=== PATIENT | female | born 1950 | race Caucasian/White ===

== ENCOUNTER 2018-06-14 22:08 | Inpatient (IN) | payer MEDICARE, SELFPAY ==
[2018-06-14 22:13] VITALS: BP 147/89; PULSE 78; RESP 16; TEMP 36.1; O2SAT 96
--- NOTE | 2018-06-14 22:13 | NURSING ---
Pt arrived via cot from [facility] at 2200.
[2018-06-14 22:18] VITALS: BMI 31.7
[2018-06-14 22:21] VITALS: BMI 31.7
[2018-06-14 22:32] VITALS: PULSE 74; O2SAT 98
[2018-06-14 22:36] LABS: Bedside Glucose 160 mg/dL (70-110)
[2018-06-14] MEDS: Atorvastatin Calcium 40 MG Tablet PO (23:39)
[2018-06-14] MEDS: Ciprofloxacin 500 MG Tablet PO (23:39)
[2018-06-14 23:40] VITALS: BP 147/89; PULSE 74
[2018-06-14] MEDS: Metoprolol Tartrate 25 MG Tablet PO (23:40)
--- NOTE | 2018-06-15 00:32 | NURSING ---
Dr Green aware Dr Yvonne Brandt requesting Macrobid be initiated after Cipro complete d/t UTI hx. Dr Green aware N.N.O.
--- NOTE | 2018-06-15 01:46 | PCM.HP.STD ---
Problem List (1) Chest pain Status: Acute (2) NSTEMI (non-ST elevated myocardial infarction) Status: Acute (3) Coronary artery disease Status: Chronic (4) Stroke Status: Chronic (5) UTI (urinary tract infection) Status: Acute (6) Anxiety Status: Chronic (7) Overactive bladder Status: Chronic (8) Diabetes Status: Chronic (9) Hyperlipidemia Status: Chronic (10) Hypertension Status: Chronic History of Present Illness Date of Admission: 06/14/18 Chief Complaint: Here for rehabilitation, strengthening, prior to discharge home alone. The patient is a 68 year old Female with below past medical history presented to emergency room with chest pain, right arm pain. She felt something was wrong. She also had jaw pain. Troponin elevated, cardiac cath showed severe multi vessel coronary artery disease. She under CABG x 3. Post-operative course complicated by acute blood loss anemia, encephalopathy, urinary tract infection, admitted to TCU with debility, here for rehabilitation, strengthening, prior to discharge home alone. Past Medical History Past Medical History (Chronic Problems): Chronic Problems Coronary artery disease (Chronic) Stroke (Chronic) Anxiety (Chronic) Overactive bladder (Chronic) Tobacco abuse (Chronic) Diabetes (Chronic) Hyperlipidemia (Chronic) Hypertension (Chronic) Allergies codeine Allergy (Verified 09/12/13 15:13) Swelling Penicillins Allergy (Verified 09/12/13 15:13) Swelling Sulfa (Sulfonamide Antibiotics) Allergy (Verified 09/12/13 15:13) Swelling diphenhydramine [From Benadryl] Adverse Reaction (Verified 06/14/18 22:25) Other metoclopramide [From Reglan] Adverse Reaction (Verified 06/14/18 22:25) Other Home Medications: Ambulatory Orders Medication Instructions Recorded Acetaminophen 1 - 2 tab PO Q6H PRN PRN 06/14/18 Ascorbic Acid 500 mg PO BID 06/14/18 Aspirin E.C. [Ecotrin] 81 mg PO DAILY@0800 06/14/18 Atorvastatin Calcium 40 mg PO QHS 06/14/18 Cholecalciferol (Vitamin D3) 3,000 unit PO DAILY@0800 06/14/18 [Vitamin D3] Ciprofloxacin HCl 500 mg PO Q12H 06/14/18 Clopidogrel Bisulfate [Clopidogrel] 75 mg PO DAILY 06/14/18 Docusate Sodium [Colace] 100 mg PO BID 06/14/18 Insulin Glargine [Lantus (BKC)] 12 units SC DAILY@2200 06/14/18 Insulin Glargine [Lantus (BKC)] 16 units SC DAILY@0600 06/14/18 Insulin Lispro [Humalog Kwikpen] 7 unit SQ DINNER 06/14/18 Insulin Lispro [Humalog Kwikpen] 7 unit SQ LUNCH 06/14/18 Insulin Lispro [Humalog Kwikpen] 9 unit SQ BREAKFAST 06/14/18 Lactobacillus Acidophilus 1 each PO DAILY 06/14/18 [Acidophilus] Metoprolol Tartrate 25 mg PO BID 06/14/18 Oxybutynin [Ditropan] 5 mg PO DAILY 06/14/18 Oxycodone HCl/Acetaminophen 1 - 2 tablet PO Q6H PRN PRN 06/14/18 [Percocet 5-325] Red Yeast Rice 600 mg PO DAILY@0800 06/14/18 busPIRone [Buspar] 7.5 mg PO DAILY 06/14/18 Surgical History: coronary bypass surgery - x 3., - - EGD Psychiatric History: 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 Lives: Alone Smoking Status: Former smoker Tobacco Use: Non-smoker Alcohol: None Drugs: None - *Family History Maternal History Items: No pertinent history Paternal History Items: No pertinent history Review of Systems Constitutional: Denies: Chills, Fever, Weight Change HEENT: Denies: Head Aches, Sinus Congestion, Sinus Drainage Cardiovascular: Denies: Chest Pain, Palpitations Respiratory: Denies: Cough, Shortness of breath at rest, Sputum production Gastrointestinal: Denies: Abdominal Pain, Nausea, Vomiting Genitourinary: Denies: Dysuria Musculoskeletal: Denies: Joint Pain, Joint Tenderness Skin: Denies: Rash, Wounds Neurological: Denies: Numbness, Tingling, Focal weakness Psychiatric: Denies: Anxiety, Depression, Homicidal Ideations, Suicidal Ideations Hematologic/ Lymphatic: Denies: Easy Bruising, Easy Bleeding VTE Information - Inpt Only VTE Present on Admission: No VTE Mechan Device Prophylaxis: Knee High LISA Hose VTE Pharm Prophylaxis ordered?: Yes Patient Problems: Active and Suspected Problems Chest pain (Acute) NSTEMI (non-ST elevated myocardial infarction) (Acute) UTI (urinary tract infection) (Acute) - Physical Exam General: Alert, Oriented x3, Cooperative HEENT: Atraumatic, PERRLA, EOMI, Normocephalic Neck: Supple, No JVD, Negative Carotid Bruits Lungs: Clear to auscultation, Normal air movement Cardiovascular: Regular rate, No murmurs Abdomen: Bowel Sounds Present, Soft, Non Tender Extremities: No edema, Capillary Refill Less than 3 Seconds Skin: No rashes, No breakdown, Incision - Sternal clean, dry, intact. Musculoskeletal: No Tenderness to Palpation of Joints or Extremities Neurological: Cranial nerves II-XII grossly intact Psych/Mental Status: Normal Affect, Appropriate Vital Signs Temp Pulse Resp BP Pulse Ox 97.0 F L 74 16 147/89 H 98 06/14/18 22:13 06/14/18 23:40 06/14/18 22:13 06/14/18 23:40 06/14/18 22:32 Oxygen Delivery Method Room Air Weight: 71.214 kg Body Mass Index (BMI) 31.7 POC Glucose 06/14/18 22:33 POC Glucose 160 H Assessment/Plan All Active Problems Chest pain (Acute) NSTEMI (non-ST elevated myocardial infarction) (Acute) UTI (urinary tract infection) (Acute) Pancreatitis (Acute) 68 year old female with below past medical history hospitalized for NSTEMI, underwent CABG x 3, complicated by acute blood loss anemia, encephalopathy, urinary tract infection, admitted to TCU with debility, here for rehabilitation, strengthening, prior to discharge home alone. Debility - PT/OT. Pain - Tylenol 1000MG Q6H PRN mild pain, Oxycodone 5MG Q6H PRN moderate pain. Bowel - Miralax 17GM daily, Senna/colace 1 tablet BID, Dulcolax 10MG po daily PRN. Pneumonia vaccination - Administer Prevnar 13 and/or Pneumovax 23 as necessary. DVT prophylaxis - Lovenox 40MG daily. Vitamin C deficiency - Vitamin C 500MG BID. Coronary artery disease s/p CABG x 3 - Metoprolol 25MG BID, Plavix 75MG daily, Aspirin 81MG daily. Hyperlipidemia - Atorvastatin 40MG QHS. Anxiety - Buspar 7.5MG daily. Vitamin D deficiency - D3 3000IU daily. UTI - Cipro 500MG BID thru 06/21/2018. Diabetes Mellitus II - Lantus 16 units AM, 12 units PM, Humalog 9 units breakfast, 7 units lunch, 7 units supper. GI prophylaxis - Lactobacillus 1 tablet bid. Skin irritation - Calmoseptine BID bilateral buttocks, Eucerin BID bilateral feet, heels, legs. Tinea Corporis - Nystatin powder BID groin, under breasts. Overactive bladder - Oxybutynin 5MG daily.
--- NOTE | 2018-06-15 01:51 | HP.PCM_ITS ---
Problem List (1) Chest pain Status: Acute (2) NSTEMI (non-ST elevated myocardial infarction) Status: Acute (3) Coronary artery disease Status: Chronic (4) Stroke Status: Chronic (5) UTI (urinary tract infection) Status: Acute (6) Anxiety Status: Chronic (7) Overactive bladder Status: Chronic (8) Diabetes Status: Chronic (9) Hyperlipidemia Status: Chronic (10) Hypertension Status: Chronic History of Present Illness Date of Admission: 06/14/18 Chief Complaint: Here for rehabilitation, strengthening, prior to discharge home alone. The patient is a 68 year old Female with below past medical history presented to emergency room with chest pain, right arm pain. She felt something was wrong. She also had jaw pain. Troponin elevated, cardiac cath showed severe multi vessel coronary artery disease. She under CABG x 3. Post-operative course complicated by acute blood loss anemia, encephalopathy, urinary tract infection, admitted to TCU with debility, here for rehabilitation, strengthening, prior to discharge home alone. Past Medical History Past Medical History (Chronic Problems): Chronic Problems Coronary artery disease (Chronic) Stroke (Chronic) Anxiety (Chronic) Overactive bladder (Chronic) Tobacco abuse (Chronic) Diabetes (Chronic) Hyperlipidemia (Chronic) Hypertension (Chronic) Allergies codeine Allergy (Verified 09/12/13 15:13) Swelling Penicillins Allergy (Verified 09/12/13 15:13) Swelling Sulfa (Sulfonamide Antibiotics) Allergy (Verified 09/12/13 15:13) Swelling diphenhydramine [From Benadryl] Adverse Reaction (Verified 06/14/18 22:25) Other metoclopramide [From Reglan] Adverse Reaction (Verified 06/14/18 22:25) Other Home Medications: Ambulatory Orders Medication Instructions Recorded Acetaminophen 1 - 2 tab PO Q6H PRN PRN 06/14/18 Ascorbic Acid 500 mg PO BID 06/14/18 Aspirin E.C. [Ecotrin] 81 mg PO DAILY@0800 06/14/18 Atorvastatin Calcium 40 mg PO QHS 06/14/18 Cholecalciferol (Vitamin D3) 3,000 unit PO DAILY@0800 06/14/18 [Vitamin D3] Ciprofloxacin HCl 500 mg PO Q12H 06/14/18 Clopidogrel Bisulfate [Clopidogrel] 75 mg PO DAILY 06/14/18 Docusate Sodium [Colace] 100 mg PO BID 06/14/18 Insulin Glargine [Lantus (BKC)] 12 units SC DAILY@2200 06/14/18 Insulin Glargine [Lantus (BKC)] 16 units SC DAILY@0600 06/14/18 Insulin Lispro [Humalog Kwikpen] 7 unit SQ DINNER 06/14/18 Insulin Lispro [Humalog Kwikpen] 7 unit SQ LUNCH 06/14/18 Insulin Lispro [Humalog Kwikpen] 9 unit SQ BREAKFAST 06/14/18 Lactobacillus Acidophilus 1 each PO DAILY 06/14/18 [Acidophilus] Metoprolol Tartrate 25 mg PO BID 06/14/18 Oxybutynin [Ditropan] 5 mg PO DAILY 06/14/18 Oxycodone HCl/Acetaminophen 1 - 2 tablet PO Q6H PRN PRN 06/14/18 [Percocet 5-325] Red Yeast Rice 600 mg PO DAILY@0800 06/14/18 busPIRone [Buspar] 7.5 mg PO DAILY 06/14/18 Surgical History: coronary bypass surgery - x 3., - - EGD Psychiatric History: Anxiety 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 Lives: Alone Smoking Status: Former smoker Tobacco Use: Non-smoker Alcohol: None Drugs: None - *Family History Maternal History Items: No pertinent history Paternal History Items: No pertinent history Review of Systems Constitutional: Denies: Chills, Fever, Weight Change HEENT: Denies: Head Aches, Sinus Congestion, Sinus Drainage Cardiovascular: Denies: Chest Pain, Palpitations Respiratory: Denies: Cough, Shortness of breath at rest, Sputum production Gastrointestinal: Denies: Abdominal Pain, Nausea, Vomiting Genitourinary: Denies: Dysuria Musculoskeletal: Denies: Joint Pain, Joint Tenderness Skin: Denies: Rash, Wounds Neurological: Denies: Numbness, Tingling, Focal weakness Psychiatric: Denies: Anxiety, Depression, Homicidal Ideations, Suicidal Ideations Hematologic/ Lymphatic: Denies: Easy Bruising, Easy Bleeding VTE Information - Inpt Only VTE Present on Admission: No VTE Mechan Device Prophylaxis: Knee High LISA Hose VTE Pharm Prophylaxis ordered?: Yes Patient Problems: Active and Suspected Problems Chest pain (Acute) NSTEMI (non-ST elevated myocardial infarction) (Acute) UTI (urinary tract infection) (Acute) - Physical Exam General: Alert, Oriented x3, Cooperative HEENT: Atraumatic, PERRLA, EOMI, Normocephalic Neck: Supple, No JVD, Negative Carotid Bruits Lungs: Clear to auscultation, Normal air movement Cardiovascular: Regular rate, No murmurs Abdomen: Bowel Sounds Present, Soft, Non Tender Extremities: No edema, Capillary Refill Less than 3 Seconds Skin: No rashes, No breakdown, Incision - Sternal clean, dry, intact. Musculoskeletal: No Tenderness to Palpation of Joints or Extremities Neurological: Cranial nerves II-XII grossly intact Psych/Mental Status: Normal Affect, Appropriate Vital Signs Temp Pulse Resp BP Pulse Ox 97.0 F L 74 16 147/89 H 98 06/14/18 22:13 06/14/18 23:40 06/14/18 22:13 06/14/18 23:40 06/14/18 22:32 Oxygen Delivery Method Room Air Weight: 71.214 kg Body Mass Index (BMI) 31.7 POC Glucose 06/14/18 22:33 POC Glucose 160 H Assessment/Plan All Active Problems Chest pain (Acute) NSTEMI (non-ST elevated myocardial infarction) (Acute) UTI (urinary tract infection) (Acute) Pancreatitis (Acute) 68 year old female with below past medical history hospitalized for NSTEMI, underwent CABG x 3, complicated by acute blood loss anemia, encephalopathy, urinary tract infection, admitted to TCU with debility, here for rehabilitation, strengthening, prior to discharge home alone. * Debility - PT/OT. * Pain - Tylenol 1000MG Q6H PRN mild pain, Oxycodone 5MG Q6H PRN moderate pain. * Bowel - Miralax 17GM daily, Senna/colace 1 tablet BID, Dulcolax 10MG po daily PRN. * Pneumonia vaccination - Administer Prevnar 13 and/or Pneumovax 23 as necessary. * DVT prophylaxis - Lovenox 40MG daily. * Vitamin C deficiency - Vitamin C 500MG BID. * Coronary artery disease s/p CABG x 3 - Metoprolol 25MG BID, Plavix 75MG daily, Aspirin 81MG daily. * Hyperlipidemia - Atorvastatin 40MG QHS. * Anxiety - Buspar 7.5MG daily. * Vitamin D deficiency - D3 3000IU daily. * UTI - Cipro 500MG BID thru 06/21/2018. * Diabetes Mellitus II - Lantus 16 units AM, 12 units PM, Humalog 9 units breakfast, 7 units lunch, 7 units supper. * GI prophylaxis - Lactobacillus 1 tablet bid. * Skin irritation - Calmoseptine BID bilateral buttocks, Eucerin BID bilateral feet, heels, legs. * Tinea Corporis - Nystatin powder BID groin, under breasts. * Overactive bladder - Oxybutynin 5MG daily.
--- NOTE | 2018-06-15 03:44 | EKG12_ITS ---
Test Reason : CP Blood Pressure : / mmHG Vent. Rate : 068 BPM Atrial Rate : 068 BPM P-R Int : 132 ms QRS Dur : 098 ms QT Int : 432 ms P-R-T Axes : 054 059 024 degrees QTc Int : 459 ms Normal sinus rhythm Nonspecific ST and T wave abnormality Abnormal ECG When compared with ECG of 12-SEP-2013 15:20, T wave inversion now evident in Inferior leads Confirmed by BELINDA MCMANUS, NATALIA ([id number]), editor in chief newspaper MARKUS VILLAFANA ([id number]) on 06/19/2018 5:28:58 PM Referred By: Confirmed By:NATALIA TREVINO MD
[2018-06-15 03:46] LABS: Bedside Glucose 137 mg/dL (70-110)
[2018-06-15] MEDS: Acetaminophen 500 MG Tablet 1000 MG PO (03:47)
[2018-06-15 03:50] VITALS: BP 128/61; PULSE 71; RESP 16; O2SAT 95
--- NOTE | 2018-06-15 04:35 | NURSING ---
Addendum entered by Catherine Keating 06/15/18 04:41: 0415 upon reevaluation pt eyes closed, resting quietly in bed. Resp 12/min, easy and unlabored. Original Note: 0345 Pt c/o pain to left chest and lower sternum pain after transfer to restroom. Pt reports pain as pressure rating 8/10. Pt assisted back to bed. Vitals WNLs. HR reg. No visible distress noted. ECG obtained. Pt informed nurse lowest pain ever gets to is 6.5/10 and she always has pain on the left or right side of chest. While lying in be pain decreased to 7. Tylenol provided. Dr Green notified, N.N.O.
[2018-06-15 05:46] LABS: Absolute Lymphocyte Count 1.35 X10^3/ul (0.83-4.51); Absolute Neutrophil Count 4.7 X10^3/uL (2.0-7.7); Basophil# 0.07 X10^3/uL; Eosinophil# 0.33 X10^3/uL; Eosinophils% 4.7 % (0-5); Hematocrit 33.3 % (37-47); Hemoglobin 10.1 g/dl (12.0-15.0); Lymphocyte # 1.35 X10^3/ul (4.0); Lymphocyte % 19.1 % (19-41); Mean Corp Hgb Conc 30.3 g/gl (32-36); Mean Corpuscular Hgb 29.1 pg (27.0-32.0); Mean Platelet Vol. 10.8 fl (6.2-12.0); Monocyte% 8.5 % (0-10); Neutrophil # 4.72 X10^3/uL (2.7-7.7); Neutrophil % 66.6 % (47-70); Platelet Count 596 K/mm3 (150-450); RBC Distribution Width CV 15.7 % (11.6-14.6); RBC Distribution Width SD 51.3 fl (35.1-43.9); Red Blood Count 3.47 M/mm3 (4.2-5.4); White Blood Count 7.1 K/mm3 (4.4-11.0)
[2018-06-15 05:48] LABS: POSITIVE COUNT NO; POSITIVE DIFFERENTIAL NO; POSITIVE MORPHOLOGY NO
[2018-06-15 06:00] LABS: Anion Gap 7 (5-15); BUN 23 mg/dL (7-18); BUN/Creat Ratio 22.8 RATIO (10-20); Calcium,Total 8.5 mg/dL (8.5-10.1); Chloride 111 mmol/L (98-107); Creatinine, Serum 1.01 mg/dL (0.55-1.02); EST Glomerular Filtration Rate 58 mL/min (>60); Est Glom Filt Rate - Afr Amer 70 mL/min (>60); Glucose 135 mg/dL (74-106); Potassium 4.1 mmol/L (3.5-5.1); Sodium Level 145 mmol/L (136-145)
[2018-06-15] MEDS: busPIRone 15 MG TABLET 7.5 MG PO (06:29)
[2018-06-15] MEDS: Ascorbic Acid 500 MG Tablet PO ×2 (06:29→17:37)
[2018-06-15] MEDS: Ciprofloxacin 500 MG Tablet PO ×2 (06:29→17:31)
[2018-06-15] MEDS: Oxybutynin 5 MG Tablet PO (06:29)
[2018-06-15] MEDS: Senna/Docusate Sodium 1 Tablet PO ×2 (06:29→17:32)
[2018-06-15] MEDS: Clopidogrel Bisulfate 75 MG Tablet PO (06:29)
[2018-06-15] MEDS: Polyethylene Glycol 3350 17 GM PACKET PO (06:30)
[2018-06-15 06:31] LABS: Bedside Glucose 154 mg/dL (70-110)
[2018-06-15] MEDS: Enoxaparin 40 MG/0.4 ML Syringe SC (06:31)
[2018-06-15 06:32] VITALS: BP 121/63; PULSE 68
[2018-06-15] MEDS: Metoprolol Tartrate 25 MG Tablet PO ×2 (06:32→17:32)
[2018-06-15] MEDS: Nystatin Powder 15gm Bottle 1 APPLIC TOPICAL ×2 (06:44→22:44)
[2018-06-15] MEDS: Menthol/Lanolin/Calamine/Znox 113 GM Tube 1 APPLIC TOPICAL ×2 (06:44→22:44)
[2018-06-15] MEDS: Aspirin E.C. 81 MG Tablet PO (08:57)
[2018-06-15] MEDS: Insulin Lispro 100 UNIT/ML INSULN.PEN 9 UNIT SC (09:01)
[2018-06-15] MEDS: oxyCODONE 5 MG Tablet PO (09:04)
[2018-06-15] MEDS: Bisacodyl 5 MG Tablet 10 MG PO (11:16)
[2018-06-15] MEDS: Tuberculin,Purif.prot.deriv. 50 TU/ML Vial 5 ML ID (11:17)
[2018-06-15 11:25] LABS: Bedside Glucose 139 mg/dL (70-110)
[2018-06-15] MEDS: Insulin Lispro 100 UNIT/ML INSULN.PEN 7 UNIT SC ×2 (14:03→17:33)
--- NOTE | 2018-06-15 15:21 | CHAPLAIN ---
Type of Pastoral Visit _x__ Initial Visit ___ Follow-up Visit ___ On-call Visit ___ General Patient Visit ___ Spiritual Assessment ___ Family Conference ___ Bereavement ___ Rapid Response ___ Code Blue ___ Other (describe below) Pastoral Care Referral From _x__ Patient ___ Family ___ Nurse ___ Physician ___ Cash Sales Audit Clerk ___ Corporate Communications Intern ___ Other (describe below) Sacrament/Intervention _x__ Active listening ___ Anointing ___ Buddhist ___ Bereavement ___ Communion ___ [place] exploration ___ ___ Life review _x__ Prayer ___ Reconciliation ___ Sacrament of Sick _x__ Supportive presence ___ Wedding ___ Other (describe below) Pastoral Comments upon introduction the patient immediately requested prayer for her daughter out of state that is having surgery; pt reveals that she has some difficult relational issues with family members; pt is concerned about having care when discharged from hospital; pt does not have a sikhism connection
[2018-06-15 15:25] VITALS: BP 118/60; PULSE 66; RESP 18; TEMP 36.3; O2SAT 95
[2018-06-15 17:11] LABS: Bedside Glucose 148 mg/dL (70-110)
[2018-06-15 17:32] VITALS: BP 118/60; PULSE 66
[2018-06-15 21:05] LABS: Bedside Glucose 78 mg/dL (70-110)
[2018-06-15 21:45] LABS: Bedside Glucose 136 mg/dL (70-110)
--- NOTE | 2018-06-15 22:16 | RAD_ITS ---
HISTORY: Nausea/Vomiting EXAM:Abdominal series 2 views COMPARISON: CT abdomen and pelvis 09/12/2013 FINDINGS: 2 supine views the abdomen. No bowel obstruction. Small and large intestinal loops are nondilated. No soft tissue mass or organomegaly. Multiple pelvic phleboliths. Atherosclerotic calcifications. Previous median sternotomy. RAD/Abdomen Single View (Portable) IMPRESSION: 1. Nonobstructive bowel gas pattern. No acute abdominal disease seen. 2. If symptoms warrant, further correlation with CT may be of benefit. at 0713 Reported and signed by: Abdoulaye Abreu MD Electronically Signed: Abdoulaye Abreu, at 7:12 EST Tel , Service support ,
--- NOTE | 2018-06-15 22:21 | NURSING ---
Dr. Green notified of low blood sugar this evening. New orders given to decrease insulins. Dr. Green notified of patient complaining of nausea. Orders given for KUB.
[2018-06-15] MEDS: Atorvastatin Calcium 40 MG Tablet PO (22:41)
[2018-06-16 05:43] VITALS: BP 119/69; PULSE 85
[2018-06-16] MEDS: Metoprolol Tartrate 25 MG Tablet PO ×2 (05:43→17:52)
[2018-06-16] MEDS: Oxybutynin 5 MG Tablet PO (05:43)
[2018-06-16] MEDS: Clopidogrel Bisulfate 75 MG Tablet PO (05:43)
[2018-06-16] MEDS: Senna/Docusate Sodium 1 Tablet PO ×2 (05:43→17:52)
[2018-06-16] MEDS: Ciprofloxacin 500 MG Tablet PO ×2 (05:43→17:52)
[2018-06-16] MEDS: Ascorbic Acid 500 MG Tablet PO ×2 (05:43→17:53)
[2018-06-16] MEDS: Enoxaparin 40 MG/0.4 ML Syringe SC (05:44)
[2018-06-16] MEDS: busPIRone 15 MG TABLET 7.5 MG PO (05:44)
[2018-06-16] MEDS: Polyethylene Glycol 3350 17 GM PACKET PO (05:44)
[2018-06-16] MEDS: Menthol/Lanolin/Calamine/Znox 113 GM Tube 1 APPLIC TOPICAL ×2 (05:51→20:32)
[2018-06-16] MEDS: Nystatin Powder 15gm Bottle 1 APPLIC TOPICAL ×2 (05:51→20:32)
[2018-06-16 06:56] LABS: Bedside Glucose 169 mg/dL (70-110)
--- NOTE | 2018-06-16 08:12 | NURSING ---
Pt has c/o nausea this morning. Requesting medications be changed to 0800, so they can be taken with breakfast. Given margy angel and crackers. Will continue to monitor.
[2018-06-16 11:35] LABS: Bedside Glucose 152 mg/dL (70-110)
[2018-06-16] MEDS: Aspirin E.C. 81 MG Tablet PO (12:24)
[2018-06-16] MEDS: Insulin Lispro 100 UNIT/ML INSULN.PEN SC ×2 (12:24→17:51)
[2018-06-16] MEDS: oxyCODONE 5 MG Tablet PO ×2 (12:25→19:40)
[2018-06-16] MEDS: Bisacodyl 5 MG Tablet 10 MG PO (13:42)
[2018-06-16 13:45] VITALS: O2SAT 94
--- NOTE | 2018-06-16 15:40 | NURSING ---
Addendum entered by Jessica Red 06/16/18 17:56: ZOFRAN EFFECTIVE IN RELIEVING NAUSEA. R' SITTING UP EATING DINNER. ABLE TO TAKE PO MEDS THIS EVENING. Original Note: Pt has c/o mild nausea, Dr. Green updated. NO for zofran 4mg PO [id number] PRN.
[2018-06-16 15:49] VITALS: BP 115/61; PULSE 67; RESP 16; TEMP 36.6; O2SAT 97
[2018-06-16] MEDS: Ondansetron ODT 4 MG Tablet PO (15:56)
[2018-06-16 17:00] LABS: Bedside Glucose 135 mg/dL (70-110)
[2018-06-16 17:52] VITALS: PULSE 67
[2018-06-16] MEDS: Atorvastatin Calcium 40 MG Tablet PO (20:32)
[2018-06-16 21:25] LABS: Bedside Glucose 153 mg/dL (70-110)
[2018-06-17] MEDS: Ondansetron ODT 4 MG Tablet PO ×2 (06:18→16:48)
[2018-06-17] MEDS: Menthol/Lanolin/Calamine/Znox 113 GM Tube 1 APPLIC TOPICAL ×2 (06:19→21:11)
[2018-06-17] MEDS: Nystatin Powder 15gm Bottle 1 APPLIC TOPICAL ×2 (06:20→21:11)
--- NOTE | 2018-06-17 06:29 | EKG12_ITS ---
Test Reason : CHEST PAIN Blood Pressure : / mmHG Vent. Rate : 068 BPM Atrial Rate : 068 BPM P-R Int : 118 ms QRS Dur : 082 ms QT Int : 426 ms P-R-T Axes : 064 067 026 degrees QTc Int : 452 ms Normal sinus rhythm Normal ECG When compared with ECG of 15-JUN-2018 03:48, MANUAL COMPARISON REQUIRED, DATA IS UNCONFIRMED Confirmed by BELINDA MCMANUS, NATALIA ([id number]), film editor MARKUS VILLAFANA ([id number]) on 06/19/2018 5:42:07 PM Referred By: RUDY Confirmed By:NATALIA TREVINO MD
--- NOTE | 2018-06-17 06:32 | NURSING ---
Addendum entered by Vidya Gonzalez 06/17/18 06:52: EKG showed NSR. Pt stating I no longer have that pain in my chest. Will continue to monitor. Original Note: This RN entered pt's room this morning. Pt diaphoretic, VS taken- BP122/77, HR 77, RR- 18, pulse ox- 94%. Pt stating she has CP that she has not felt before. Pt reports chest pain 9/10, with pain radiating through neck and throat. Zofran also given for nausea. EKG ordered at this time.
[2018-06-17 06:36] LABS: Bedside Glucose 131 mg/dL (70-110)
[2018-06-17] MEDS: Enoxaparin 40 MG/0.4 ML Syringe SC (07:20)
[2018-06-17] MEDS: Insulin Lispro 100 UNIT/ML INSULN.PEN SC ×2 (09:12→17:47)
[2018-06-17 10:05] VITALS: PULSE 76
[2018-06-17] MEDS: Metoprolol Tartrate 25 MG Tablet PO (10:05)
[2018-06-17] MEDS: Oxybutynin 5 MG Tablet PO (10:06)
[2018-06-17] MEDS: busPIRone 15 MG TABLET 7.5 MG PO (10:06)
[2018-06-17] MEDS: Ciprofloxacin 500 MG Tablet PO ×2 (10:06→17:47)
[2018-06-17] MEDS: Senna/Docusate Sodium 1 Tablet PO ×2 (10:07→17:48)
[2018-06-17] MEDS: Polyethylene Glycol 3350 17 GM PACKET PO (10:07)
[2018-06-17] MEDS: Aspirin E.C. 81 MG Tablet PO (10:07)
[2018-06-17] MEDS: Ascorbic Acid 500 MG Tablet PO ×2 (10:08→17:47)
[2018-06-17] MEDS: Clopidogrel Bisulfate 75 MG Tablet PO (10:08)
[2018-06-17] MEDS: oxyCODONE 5 MG Tablet PO ×2 (10:12→16:48)
[2018-06-17 11:40] LABS: Bedside Glucose 188 mg/dL (70-110)
[2018-06-17 15:32] VITALS: BP 120/66; PULSE 54; RESP 16; TEMP 36.5; O2SAT 96
[2018-06-17 16:45] LABS: Bedside Glucose 135 mg/dL (70-110)
[2018-06-17 17:53] VITALS: PULSE 57
[2018-06-17 21:05] LABS: Bedside Glucose 148 mg/dL (70-110)
[2018-06-17] MEDS: Atorvastatin Calcium 40 MG Tablet PO (21:11)
[2018-06-17 21:15] VITALS: PULSE 65; O2SAT 93
[2018-06-17] MEDS: Acetaminophen 500 MG Tablet 1000 MG PO (21:20)
[2018-06-18] MEDS: Menthol/Lanolin/Calamine/Znox 113 GM Tube 1 APPLIC TOPICAL ×2 (06:23→20:26)
[2018-06-18] MEDS: Nystatin Powder 15gm Bottle 1 APPLIC TOPICAL ×2 (06:24→20:26)
[2018-06-18] MEDS: Enoxaparin 40 MG/0.4 ML Syringe SC (06:24)
[2018-06-18 06:41] LABS: Bedside Glucose 145 mg/dL (70-110)
[2018-06-18] MEDS: Ondansetron ODT 4 MG Tablet PO ×2 (06:56→17:49)
[2018-06-18 08:23] VITALS: PULSE 75
[2018-06-18] MEDS: Oxybutynin 5 MG Tablet PO (08:23)
[2018-06-18] MEDS: Ciprofloxacin 500 MG Tablet PO ×2 (08:23→17:45)
[2018-06-18] MEDS: Aspirin E.C. 81 MG Tablet PO (08:23)
[2018-06-18] MEDS: busPIRone 15 MG TABLET 7.5 MG PO (08:23)
[2018-06-18] MEDS: Metoprolol Tartrate 25 MG Tablet PO ×2 (08:23→17:42)
[2018-06-18] MEDS: Senna/Docusate Sodium 1 Tablet PO ×2 (08:24→17:45)
[2018-06-18] MEDS: Polyethylene Glycol 3350 17 GM PACKET PO (08:24)
[2018-06-18] MEDS: Insulin Lispro 100 UNIT/ML INSULN.PEN SC ×3 (08:24→17:42)
[2018-06-18] MEDS: Ascorbic Acid 500 MG Tablet PO ×2 (08:24→17:45)
[2018-06-18] MEDS: Clopidogrel Bisulfate 75 MG Tablet PO (08:28)
[2018-06-18] MEDS: oxyCODONE 5 MG Tablet PO ×2 (10:41→17:49)
[2018-06-18 11:11] LABS: Bedside Glucose 181 mg/dL (70-110)
--- NOTE | 2018-06-18 11:29 | NURSING ---
pt refusing ensure and requesting aerosals per home regimen for COPD. Dr Green notified, new orders obtained.
--- NOTE | 2018-06-18 12:24 | CASEMGMT ---
Insurance Clinical information sent. Pending continued stay approval. Auth#[id number] RICKY Mccabe, TRACK AND FIELD COACH
[2018-06-18 13:06] VITALS: PULSE 79; RESP 19
[2018-06-18] MEDS: Ipratropium/Albuterol Sulfate 3 ML AMPUL.NEB INHALATION (13:06)
--- NOTE | 2018-06-18 13:58 | PCM.PN.RX ---
<Boogie Barcenas D - Last Filed: 06/18/18 13:58> Progress Note - Pharmacy Subjective: TCU Admission Objective: Allergies codeine Allergy (Verified 09/12/13 15:13) Swelling Penicillins Allergy (Verified 09/12/13 15:13) Swelling Sulfa (Sulfonamide Antibiotics) Allergy (Verified 09/12/13 15:13) Swelling diphenhydramine [From Benadryl] Adverse Reaction (Verified 06/14/18 22:25) Other metoclopramide [From Reglan] Adverse Reaction (Verified 06/14/18 22:25) Other Current Medications Generic Name Dose Route Start Last Admin Trade Name Freq PRN Reason Stop Dose Admin Acetaminophen 1,000 mg 06/15/18 01:59 06/17/18 21:20 Tylenol PO 1,000 mg Q6H PRN PRN Administration MILD PAIN (1-08/12) Albuterol/Ipratropium 3 ml 06/18/18 11:28 06/18/18 13:06 Duoneb INHALATION 3 ml Q6HWA.RT PRN Administration sob/wheezing Ascorbic Acid 500 mg 06/17/18 08:00 06/18/18 08:24 Vitamin C PO 500 mg BID@0800,1800 [facility] Administration Aspirin 81 mg 06/15/18 08:00 06/18/18 08:23 Ecotrin PO 81 mg DAILY@0800 ANA LAURA Administration Atorvastatin Calcium 40 mg 06/14/18 23:30 06/17/18 21:11 Lipitor PO 40 mg QHS ANA LAURA Administration Bisacodyl 10 mg 06/15/18 01:59 06/16/18 13:42 Dulcolax PO 10 mg DAILY PRN Administration Constipation Buspirone HCl 7.5 mg 06/17/18 08:00 06/18/18 08:23 Buspar PO 7.5 mg DAILY@0800 [facility] Administration Calamine/Phenol 1 applic 06/15/18 06:00 06/18/18 06:23 Calmoseptine Ointment TOPICAL 1 applicatio 0600,2200 [facility] Administration Protocol Cholecalciferol 3,000 unit 06/15/18 08:00 06/18/18 08:24 Vitamin D PO 3,000 unit DAILY@0800 [facility] Administration Ciprofloxacin HCl 500 mg 06/17/18 08:00 01/14/19 08:23 Cipro PO 06/21/18 23:59 500 mg BID@0800,1800 [facility] Administration Clopidogrel Bisulfate 75 mg 06/17/18 08:00 06/18/18 08:28 Plavix PO 75 mg DAILY@0800 [facility] Administration Enoxaparin Sodium 40 mg 06/15/18 06:00 06/18/18 06:24 Lovenox SC 40 mg DAILY@0600 [facility] Administration Insulin Glargine 5 units 06/16/18 06:00 06/18/18 06:23 Lantus ([facility]) SC 5 units BID [facility] Administration Insulin Human Lispro 3 unit 06/16/18 07:45 06/18/18 11:18 Humalog Kwikpen ([facility]) SC 3 u TIDCM [facility] Administration Lactobacillus Acidophilus 1 tablet 06/17/18 08:00 06/18/18 08:23 Acidophilus PO 1 tablet DAILY@0800 [facility] Administration Metoprolol Tartrate 25 mg 06/17/18 08:00 06/18/18 08:23 Lopressor (Beta Rozina) PO 25 mg BID@0800,1800 [facility] Administration Multi-Ingredient Cream 1 applic 06/15/18 06:00 06/18/18 06:23 Eucerin TOPICAL 1 applicatio 0600,2200 [facility] Administration Protocol Nystatin 1 applic 06/15/18 06:00 06/18/18 06:24 Mycostatin Powder TOPICAL 1 applicatio 0600,2200 [facility] Administration Protocol Ondansetron HCl 4 mg 06/16/18 15:39 06/18/18 06:56 Zofran Odt PO 4 mg Q6H PRN PRN Administration NAUSEA Oxybutynin Chloride 5 mg 06/17/18 08:00 06/18/18 08:23 Ditropan PO 5 mg DAILY@0800 [facility] Administration Oxycodone HCl 5 mg 06/15/18 01:59 06/18/18 10:41 Oxyir PO 5 mg Q6H PRN PRN Administration MODERATE PAIN (4-5/10) Polyethylene Glycol 17 gm 06/17/18 08:00 06/18/18 08:24 Miralax PO 17 gm DAILY@0800 [facility] Administration Senna/Docusate Sodium 1 tablet 06/17/18 08:00 06/18/18 08:24 Senokot-S, Pilar-Colace PO 1 tablet BID@0800,1800 ANA LAURA Administration Tuberculin PPD 5 tu 06/22/18 10:00 Tubersol, Aplisol, Ppd ID 06/22/18 10:01 X1 ONE Problem List Chest pain (Acute) NSTEMI (non-ST elevated myocardial infarction) (Acute) Coronary artery disease (Chronic) Stroke (Chronic) UTI (urinary tract infection) (Acute) Anxiety (Chronic) Overactive bladder (Chronic) Vital Signs Temp Pulse Resp BP Pulse Ox 97.7 F L 79 19 H 120/66 93 06/17/18 15:32 06/18/18 13:06 06/18/18 13:06 06/17/18 15:32 06/17/18 21:15 Oxygen Flow Rate (L/min) 3 Oxygen Delivery Method Room Air Weight: 69.201 kg Body Mass Index (BMI) 31.7 Sodium 145 mmol/L (136-145) 06/15/18 05:10 Potassium 4.1 mmol/L (3.5-5.1) 06/15/18 05:10 Chloride 111 mmol/L (98-107) H 06/15/18 05:10 Carbon Dioxide 27.0 mmol/L (21.0-32.0) 06/15/18 05:10 Anion Gap 7 (5-15) 06/15/18 05:10 BUN 23 mg/dL (7-18) H 06/15/18 05:10 Creatinine 1.01 mg/dL (0.55-1.02) 06/15/18 05:10 Est GFR (MDRD) Af Amer 70 mL/min (>60) 06/15/18 05:10 Est GFR (MDRD) Non-Af 58 mL/min (>60) L 06/15/18 05:10 BUN/Creatinine Ratio 22.8 RATIO (10-20) H 06/15/18 05:10 Glucose 135 mg/dL (74-106) H 06/15/18 05:10 Assessment/Plan: 1) Pain APAP for mild pain, oxycodone for moderate pain. Continue to monitor prn medication use, daily pain scores. 2) CAD ASA, atorvastatin, clopidogrel, metoprolol. Continue to monitor lipids, BP/HR, for chest pain. 3) DM2 Insulin glargine twice daily, lispro with meals. Continue to monitor BGT, s/s hyper/hypoglycemia. 4) UTI Ciprofloxacin twice daily. Continue to monitor renal function, s/s infection. 5) GI Lactobacillus, prn ondansetron. Continue to monitor prn medication use, s/s GI distress. 6) Oxybutynin daily. Continue to monitor symptoms. 7) DVT PPx Enoxaparin daily. Continue to monitor for bleeding/clot. Psychotropic Medications: 8) Anxiety Buspirone daily. Continue to monitor s/s anxiety. Unnecessary Medications: None Bowel Regimen: 9) Senna/s, PEG, prn bisacodyl. Continue to monitor prn medication use, for constipation/diarrhea. Date of Note:: 06/18/18 - Provider Comments Provider responsibility: Provider responsible to enter orders to implement recommendations <Taras Green Chi - Last Filed: 06/18/18 18:07> Progress Note - Pharmacy Subjective: [] Objective: Allergies codeine Allergy (Verified 09/12/13 15:13) Swelling Penicillins Allergy (Verified 09/12/13 15:13) Swelling Sulfa (Sulfonamide Antibiotics) Allergy (Verified 09/12/13 15:13) Swelling diphenhydramine [From Benadryl] Adverse Reaction (Verified 06/14/18 22:25) Other metoclopramide [From Reglan] Adverse Reaction (Verified 06/14/18 22:25) Other Current Medications Generic Name Dose Route Start Last Admin Trade Name Freq PRN Reason Stop Dose Admin Acetaminophen 1,000 mg 06/15/18 01:59 06/17/18 21:20 Tylenol PO 1,000 mg Q6H PRN PRN Administration MILD PAIN (1-3/10) Albuterol/Ipratropium 3 ml 06/18/18 11:28 06/18/18 13:06 Duoneb INHALATION 3 ml Q6HWA.RT PRN Administration sob/wheezing Ascorbic Acid 500 mg 06/17/18 08:00 06/18/18 17:45 Vitamin C PO 500 mg BID@0800,1800 ANA LAURA Administration Aspirin 81 mg 06/15/18 08:00 06/18/18 08:23 Ecotrin PO 81 mg DAILY@0800 ANA LAURA Administration Atorvastatin Calcium 40 mg 06/14/18 23:30 06/17/18 21:11 Lipitor PO 40 mg QHS ANA LAURA Administration Bisacodyl 10 mg 06/15/18 01:59 06/16/18 13:42 Dulcolax PO 10 mg DAILY PRN Administration Constipation Buspirone HCl 7.5 mg 06/17/18 08:00 06/18/18 08:23 Buspar PO 7.5 mg DAILY@0800 [facility] Administration Calamine/Phenol 1 applic 06/15/18 06:00 06/18/18 06:23 Calmoseptine Ointment TOPICAL 1 applicatio 599,2199 [facility] Administration Protocol Cholecalciferol 3,000 unit 06/15/18 08:00 06/18/18 08:24 Vitamin D PO 3,000 unit DAILY@0800 [facility] Administration Ciprofloxacin HCl 500 mg 06/17/18 08:00 06/18/18 17:45 Cipro PO 06/21/18 23:59 500 mg BID@0800,1800 [facility] Administration Clopidogrel Bisulfate 75 mg 06/17/18 08:00 06/18/18 08:28 Plavix PO 75 mg DAILY@0800 [facility] Administration Enoxaparin Sodium 40 mg 06/15/18 06:00 06/18/18 06:24 Lovenox SC 40 mg DAILY@0600 [facility] Administration Insulin Glargine 5 units 06/16/18 06:00 06/18/18 17:43 Lantus ([facility]) SC 5 units BID [facility] Administration Insulin Human Lispro 3 unit 06/16/18 07:45 06/18/18 17:42 Humalog Kwikpen ([facility]) SC 3 u TIDCM [facility] Administration Lactobacillus Acidophilus 1 tablet 06/17/18 08:00 06/18/18 08:23 Acidophilus PO 1 tablet DAILY@0800 [facility] Administration Metoprolol Tartrate 25 mg 06/17/18 08:00 06/18/18 17:42 Lopressor (Beta Rozina) PO 25 mg BID@0800,1800 [facility] Administration Multi-Ingredient Cream 1 applic 06/15/18 06:00 06/18/18 06:23 Eucerin TOPICAL 1 applicatio 599,2199 [facility] Administration Protocol Nystatin 1 applic 06/15/18 06:00 06/18/18 06:24 Mycostatin Powder TOPICAL 1 applicatio 599,2199 [facility] Administration Protocol Ondansetron HCl 4 mg 06/16/18 15:39 06/18/18 17:49 Zofran Odt PO 4 mg Q6H PRN PRN Administration NAUSEA Oxybutynin Chloride 5 mg 06/17/18 08:00 06/18/18 08:23 Ditropan PO 5 mg DAILY@0800 ANA LAURA Administration Oxycodone HCl 5 mg 06/15/18 01:59 06/18/18 17:49 Oxyir PO 5 mg Q6H PRN PRN Administration MODERATE PAIN (4-5/10) Polyethylene Glycol 17 gm 06/17/18 08:00 06/18/18 08:24 Miralax PO 17 gm DAILY@0800 ANA LAURA Administration Senna/Docusate Sodium 1 tablet 06/17/18 08:00 06/18/18 17:45 Senokot-S, Pilar-Colace PO 1 tablet BID@0800,1800 [facility] Administration Tuberculin PPD 5 tu 06/22/18 10:00 Tubersol, Aplisol, Ppd ID 06/22/18 10:01 X1 ONE Problem List Chest pain (Acute) NSTEMI (non-ST elevated myocardial infarction) (Acute) Coronary artery disease (Chronic) Stroke (Chronic) UTI (urinary tract infection) (Acute) Anxiety (Chronic) Overactive bladder (Chronic) Vital Signs Temp Pulse Resp BP Pulse Ox 98.3 F 88 20 H 124/76 H 93 06/18/18 15:41 06/18/18 17:42 06/18/18 15:41 06/18/18 15:41 06/18/18 15:41 Oxygen Flow Rate (L/min) 3 Oxygen Delivery Method Room Air Weight: 69.201 kg Body Mass Index (BMI) 31.7 Sodium 145 mmol/L (136-145) 06/15/18 05:10 Potassium 4.1 mmol/L (3.5-5.1) 06/15/18 05:10 Chloride 111 mmol/L (98-107) H 06/15/18 05:10 Carbon Dioxide 27.0 mmol/L (21.0-32.0) 06/15/18 05:10 Anion Gap 7 (5-15) 06/15/18 05:10 BUN 23 mg/dL (7-18) H 06/15/18 05:10 Creatinine 1.01 mg/dL (0.55-1.02) 06/15/18 05:10 Est GFR (MDRD) Af Amer 70 mL/min (>60) 06/15/18 05:10 Est GFR (MDRD) Non-Af 58 mL/min (>60) L 06/15/18 05:10 BUN/Creatinine Ratio 22.8 RATIO (10-20) H 06/15/18 05:10 Glucose 135 mg/dL (74-106) H 06/15/18 05:10 Assessment/Plan: Psychotropic Medications: Unnecessary Medications: Bowel Regimen: - Provider Comments Provider responsibility: Provider responsible to enter orders to implement recommendations Provider Comments to Recommendations by Pharmacy: Agree
--- NOTE | 2018-06-18 14:17 | PHA.CONS_ITS ---
<Boogie Barcenas D - Last Filed: 06/18/18 13:58> Progress Note - Pharmacy Subjective: TCU Admission Objective: Allergies codeine Allergy (Verified 09/12/13 15:13) Swelling Penicillins Allergy (Verified 09/12/13 15:13) Swelling Sulfa (Sulfonamide Antibiotics) Allergy (Verified 09/12/13 15:13) Swelling diphenhydramine [From Benadryl] Adverse Reaction (Verified 06/14/18 22:25) Other metoclopramide [From Reglan] Adverse Reaction (Verified 06/14/18 22:25) Other Current Medications Generic Name Dose Route Start Last Admin Trade Name Freq PRN Reason Stop Dose Admin Acetaminophen 1,000 mg 06/15/18 01:59 06/17/18 21:20 Tylenol PO 1,000 mg Q6H PRN PRN Administration MILD PAIN (1-08/12) Albuterol/Ipratropium 3 ml 06/18/18 11:28 06/18/18 13:06 Duoneb INHALATION 3 ml Q6HWA.RT PRN Administration sob/wheezing Ascorbic Acid 500 mg 06/17/18 08:00 06/18/18 08:24 Vitamin C PO 500 mg BID@0800,1800 [facility] Administration Aspirin 81 mg 06/15/18 08:00 06/18/18 08:23 Ecotrin PO 81 mg DAILY@0800 ANA LAURA Administration Atorvastatin Calcium 40 mg 06/14/18 23:30 06/17/18 21:11 Lipitor PO 40 mg QHS ANA LAURA Administration Bisacodyl 10 mg 06/15/18 01:59 06/16/18 13:42 Dulcolax PO 10 mg DAILY PRN Administration Constipation Buspirone HCl 7.5 mg 06/17/18 08:00 06/18/18 08:23 Buspar PO 7.5 mg DAILY@0800 [facility] Administration Calamine/Phenol 1 applic 06/15/18 06:00 06/18/18 06:23 Calmoseptine Ointment TOPICAL 1 applicatio 0600,2200 [facility] Administration Protocol Cholecalciferol 3,000 unit 06/15/18 08:00 06/18/18 08:24 Vitamin D PO 3,000 unit DAILY@0800 [facility] Administration Ciprofloxacin HCl 500 mg 06/17/18 08:00 01/14/19 08:23 Cipro PO 06/21/18 23:59 500 mg BID@0800,1800 [facility] Administration Clopidogrel Bisulfate 75 mg 06/17/18 08:00 06/18/18 08:28 Plavix PO 75 mg DAILY@0800 [facility] Administration Enoxaparin Sodium 40 mg 06/15/18 06:00 06/18/18 06:24 Lovenox SC 40 mg DAILY@0600 [facility] Administration Insulin Glargine 5 units 06/16/18 06:00 06/18/18 06:23 Lantus ([facility]) SC 5 units BID [facility] Administration Insulin Human Lispro 3 unit 06/16/18 07:45 06/18/18 11:18 Humalog Kwikpen ([facility]) SC 3 u TIDCM [facility] Administration Lactobacillus Acidophilus 1 tablet 06/17/18 08:00 06/18/18 08:23 Acidophilus PO 1 tablet DAILY@0800 [facility] Administration Metoprolol Tartrate 25 mg 06/17/18 08:00 06/18/18 08:23 Lopressor (Beta Rozina) PO 25 mg BID@0800,1800 [facility] Administration Multi-Ingredient Cream 1 applic 06/15/18 06:00 06/18/18 06:23 Eucerin TOPICAL 1 applicatio 0600,2200 [facility] Administration Protocol Nystatin 1 applic 06/15/18 06:00 06/18/18 06:24 Mycostatin Powder TOPICAL 1 applicatio 0600,2200 [facility] Administration Protocol Ondansetron HCl 4 mg 06/16/18 15:39 06/18/18 06:56 Zofran Odt PO 4 mg Q6H PRN PRN Administration NAUSEA Oxybutynin Chloride 5 mg 06/17/18 08:00 06/18/18 08:23 Ditropan PO 5 mg DAILY@0800 [facility] Administration Oxycodone HCl 5 mg 06/15/18 01:59 06/18/18 10:41 Oxyir PO 5 mg Q6H PRN PRN Administration MODERATE PAIN (4-5/10) Polyethylene Glycol 17 gm 06/17/18 08:00 06/18/18 08:24 Miralax PO 17 gm DAILY@0800 [facility] Administration Senna/Docusate Sodium 1 tablet 06/17/18 08:00 06/18/18 08:24 Senokot-S, Pilar-Colace PO 1 tablet BID@0800,1800 ANA LAURA Administration Tuberculin PPD 5 tu 06/22/18 10:00 Tubersol, Aplisol, Ppd ID 06/22/18 10:01 X1 ONE Problem List Chest pain (Acute) NSTEMI (non-ST elevated myocardial infarction) (Acute) Coronary artery disease (Chronic) Stroke (Chronic) UTI (urinary tract infection) (Acute) Anxiety (Chronic) Overactive bladder (Chronic) Vital Signs Temp Pulse Resp BP Pulse Ox 97.7 F L 79 19 H 120/66 93 06/17/18 15:32 06/18/18 13:06 06/18/18 13:06 06/17/18 15:32 06/17/18 21:15 Oxygen Flow Rate (L/min) 3 Oxygen Delivery Method Room Air Weight: 69.201 kg Body Mass Index (BMI) 31.7 Sodium 145 mmol/L (136-145) 06/15/18 05:10 Potassium 4.1 mmol/L (3.5-5.1) 06/15/18 05:10 Chloride 111 mmol/L (98-107) H 06/15/18 05:10 Carbon Dioxide 27.0 mmol/L (21.0-32.0) 06/15/18 05:10 Anion Gap 7 (5-15) 06/15/18 05:10 BUN 23 mg/dL (7-18) H 06/15/18 05:10 Creatinine 1.01 mg/dL (0.55-1.02) 06/15/18 05:10 Est GFR (MDRD) Af Amer 70 mL/min (>60) 06/15/18 05:10 Est GFR (MDRD) Non-Af 58 mL/min (>60) L 06/15/18 05:10 BUN/Creatinine Ratio 22.8 RATIO (10-20) H 06/15/18 05:10 Glucose 135 mg/dL (74-106) H 06/15/18 05:10 Assessment/Plan: 1) Pain APAP for mild pain, oxycodone for moderate pain. Continue to monitor prn medication use, daily pain scores. 2) CAD ASA, atorvastatin, clopidogrel, metoprolol. Continue to monitor lipids, BP/HR, for chest pain. 3) DM2 Insulin glargine twice daily, lispro with meals. Continue to monitor BGT, s/s hyper/hypoglycemia. 4) UTI Ciprofloxacin twice daily. Continue to monitor renal function, s/s infection. 5) GI Lactobacillus, prn ondansetron. Continue to monitor prn medication use, s/s GI distress. 6) Oxybutynin daily. Continue to monitor symptoms. 7) DVT PPx Enoxaparin daily. Continue to monitor for bleeding/clot. Psychotropic Medications: 8) Anxiety Buspirone daily. Continue to monitor s/s anxiety. Unnecessary Medications: None Bowel Regimen: 9) Senna/s, PEG, prn bisacodyl. Continue to monitor prn medication use, for constipation/diarrhea. Date of Note:: 06/18/18 - Provider Comments Provider responsibility: Provider responsible to enter orders to implement recommendations <Taras Green Chi - Last Filed: 06/18/18 18:07> Progress Note - Pharmacy Subjective: [] Objective: Allergies codeine Allergy (Verified 09/12/13 15:13) Swelling Penicillins Allergy (Verified 09/12/13 15:13) Swelling Sulfa (Sulfonamide Antibiotics) Allergy (Verified 09/12/13 15:13) Swelling diphenhydramine [From Benadryl] Adverse Reaction (Verified 06/14/18 22:25) Other metoclopramide [From Reglan] Adverse Reaction (Verified 06/14/18 22:25) Other Current Medications Generic Name Dose Route Start Last Admin Trade Name Freq PRN Reason Stop Dose Admin Acetaminophen 1,000 mg 06/15/18 01:59 06/17/18 21:20 Tylenol PO 1,000 mg Q6H PRN PRN Administration MILD PAIN (1-3/10) Albuterol/Ipratropium 3 ml 06/18/18 11:28 06/18/18 13:06 Duoneb INHALATION 3 ml Q6HWA.RT PRN Administration sob/wheezing Ascorbic Acid 500 mg 06/17/18 08:00 06/18/18 17:45 Vitamin C PO 500 mg BID@0800,1800 ANA LAURA Administration Aspirin 81 mg 06/15/18 08:00 06/18/18 08:23 Ecotrin PO 81 mg DAILY@0800 ANA LAURA Administration Atorvastatin Calcium 40 mg 06/14/18 23:30 06/17/18 21:11 Lipitor PO 40 mg QHS ANA LAURA Administration Bisacodyl 10 mg 06/15/18 01:59 06/16/18 13:42 Dulcolax PO 10 mg DAILY PRN Administration Constipation Buspirone HCl 7.5 mg 06/17/18 08:00 06/18/18 08:23 Buspar PO 7.5 mg DAILY@0800 [facility] Administration Calamine/Phenol 1 applic 06/15/18 06:00 06/18/18 06:23 Calmoseptine Ointment TOPICAL 1 applicatio 599,2199 [facility] Administration Protocol Cholecalciferol 3,000 unit 06/15/18 08:00 06/18/18 08:24 Vitamin D PO 3,000 unit DAILY@0800 [facility] Administration Ciprofloxacin HCl 500 mg 06/17/18 08:00 06/18/18 17:45 Cipro PO 06/21/18 23:59 500 mg BID@0800,1800 [facility] Administration Clopidogrel Bisulfate 75 mg 06/17/18 08:00 06/18/18 08:28 Plavix PO 75 mg DAILY@0800 [facility] Administration Enoxaparin Sodium 40 mg 06/15/18 06:00 06/18/18 06:24 Lovenox SC 40 mg DAILY@0600 [facility] Administration Insulin Glargine 5 units 06/16/18 06:00 06/18/18 17:43 Lantus ([facility]) SC 5 units BID [facility] Administration Insulin Human Lispro 3 unit 06/16/18 07:45 06/18/18 17:42 Humalog Kwikpen ([facility]) SC 3 u TIDCM [facility] Administration Lactobacillus Acidophilus 1 tablet 06/17/18 08:00 06/18/18 08:23 Acidophilus PO 1 tablet DAILY@0800 [facility] Administration Metoprolol Tartrate 25 mg 06/17/18 08:00 06/18/18 17:42 Lopressor (Beta Rozina) PO 25 mg BID@0800,1800 [facility] Administration Multi-Ingredient Cream 1 applic 06/15/18 06:00 06/18/18 06:23 Eucerin TOPICAL 1 applicatio 599,2199 [facility] Administration Protocol Nystatin 1 applic 06/15/18 06:00 06/18/18 06:24 Mycostatin Powder TOPICAL 1 applicatio 599,2199 [facility] Administration Protocol Ondansetron HCl 4 mg 06/16/18 15:39 06/18/18 17:49 Zofran Odt PO 4 mg Q6H PRN PRN Administration NAUSEA Oxybutynin Chloride 5 mg 06/17/18 08:00 06/18/18 08:23 Ditropan PO 5 mg DAILY@0800 ANA LAURA Administration Oxycodone HCl 5 mg 06/15/18 01:59 06/18/18 17:49 Oxyir PO 5 mg Q6H PRN PRN Administration MODERATE PAIN (4-5/10) Polyethylene Glycol 17 gm 06/17/18 08:00 06/18/18 08:24 Miralax PO 17 gm DAILY@0800 ANA [facility]URA Administration Senna/Docusate Sodium 1 tablet 06/17/18 08:00 06/18/18 17:45 Senokot-S, Pilar-Colace PO 1 tablet BID@0800,1800 [facility] Administration Tuberculin PPD 5 tu 06/22/18 10:00 Tubersol, Aplisol, Ppd ID 06/22/18 10:01 X1 ONE Problem List Chest pain (Acute) NSTEMI (non-ST elevated myocardial infarction) (Acute) Coronary artery disease (Chronic) Stroke (Chronic) UTI (urinary tract infection) (Acute) Anxiety (Chronic) Overactive bladder (Chronic) Vital Signs Temp Pulse Resp BP Pulse Ox 98.3 F 88 20 H 124/76 H 93 06/18/18 15:41 06/18/18 17:42 06/18/18 15:41 06/18/18 15:41 06/18/18 15:41 Oxygen Flow Rate (L/min) 3 Oxygen Delivery Method Room Air Weight: 69.201 kg Body Mass Index (BMI) 31.7 Sodium 145 mmol/L (136-145) 06/15/18 05:10 Potassium 4.1 mmol/L (3.5-5.1) 06/15/18 05:10 Chloride 111 mmol/L (98-107) H 06/15/18 05:10 Carbon Dioxide 27.0 mmol/L (21.0-32.0) 06/15/18 05:10 Anion Gap 7 (5-15) 06/15/18 05:10 BUN 23 mg/dL (7-18) H 06/15/18 05:10 Creatinine 1.01 mg/dL (0.55-1.02) 06/15/18 05:10 Est GFR (MDRD) Af Amer 70 mL/min (>60) 06/15/18 05:10 Est GFR (MDRD) Non-Af 58 mL/min (>60) L 06/15/18 05:10 BUN/Creatinine Ratio 22.8 RATIO (10-20) H 06/15/18 05:10 Glucose 135 mg/dL (74-106) H 06/15/18 05:10 Assessment/Plan: Psychotropic Medications: Unnecessary Medications: Bowel Regimen: - Provider Comments Provider responsibility: Provider responsible to enter orders to implement recommendations Provider Comments to Recommendations by Pharmacy: Agree
[2018-06-18 15:41] VITALS: BP 124/76; PULSE 88; RESP 20; TEMP 36.8; O2SAT 93
[2018-06-18 17:31] LABS: Bedside Glucose 129 mg/dL (70-110)
[2018-06-18 17:42] VITALS: PULSE 88
[2018-06-18] MEDS: Atorvastatin Calcium 40 MG Tablet PO (20:21)
[2018-06-18 20:51] LABS: Bedside Glucose 149 mg/dL (70-110)
[2018-06-19] MEDS: Nystatin Powder 15gm Bottle 1 APPLIC TOPICAL ×2 (06:13→20:08)
[2018-06-19] MEDS: Enoxaparin 40 MG/0.4 ML Syringe SC (06:13)
[2018-06-19] MEDS: Menthol/Lanolin/Calamine/Znox 113 GM Tube 1 APPLIC TOPICAL ×2 (06:13→20:07)
[2018-06-19 06:31] LABS: Bedside Glucose 144 mg/dL (70-110)
[2018-06-19] MEDS: Ondansetron ODT 4 MG Tablet PO (09:27)
[2018-06-19] MEDS: oxyCODONE 5 MG Tablet PO ×2 (09:28→17:47)
[2018-06-19] MEDS: Insulin Lispro 100 UNIT/ML INSULN.PEN SC ×3 (09:29→17:49)
[2018-06-19] MEDS: Senna/Docusate Sodium 1 Tablet PO ×2 (09:33→17:48)
[2018-06-19] MEDS: Clopidogrel Bisulfate 75 MG Tablet PO (09:33)
[2018-06-19] MEDS: Polyethylene Glycol 3350 17 GM PACKET PO (09:33)
[2018-06-19 09:34] VITALS: BP 126/80; PULSE 79
[2018-06-19] MEDS: Metoprolol Tartrate 25 MG Tablet PO ×2 (09:34→17:48)
[2018-06-19] MEDS: Oxybutynin 5 MG Tablet PO (09:34)
[2018-06-19] MEDS: Ascorbic Acid 500 MG Tablet PO ×2 (09:34→17:48)
[2018-06-19] MEDS: Ciprofloxacin 500 MG Tablet PO ×2 (09:34→17:48)
[2018-06-19] MEDS: busPIRone 15 MG TABLET 7.5 MG PO (09:34)
[2018-06-19] MEDS: Aspirin E.C. 81 MG Tablet PO (09:34)
[2018-06-19 11:45] LABS: Bedside Glucose 215 mg/dL (70-110)
[2018-06-19] MEDS: Acetaminophen 500 MG Tablet 1000 MG PO (12:29)
--- NOTE | 2018-06-19 13:54 | CASEMGMT ---
Insurance Continued stay denied with last cover day being 06/21/18 and resident to discharge or financial responsibility to begin on 06/22/18. Auth#[id number] RICKY Mccabe, ATM TECHNICIAN
[2018-06-19 13:55] VITALS: PULSE 88; RESP 18
[2018-06-19] MEDS: Ipratropium/Albuterol Sulfate 3 ML AMPUL.NEB INHALATION ×2 (13:55→20:30)
[2018-06-19 15:53] VITALS: BP 108/56; PULSE 60; RESP 18; TEMP 36.6; O2SAT 93
[2018-06-19 16:51] LABS: Bedside Glucose 167 mg/dL (70-110)
--- NOTE | 2018-06-19 16:57 | CASEMGMT ---
Addendum entered by Zoraida Sanchez 06/19/18 17:35: Attempted to contact resident Chastity lawton, no voicemail is set up and there was no answer. Original Note: Social Work Spoke with resident in room. This elementary school social worker communicating to resident that continued stay approval has been denied by insurance with a last cover day of 06/21/18 and resident to discharge or financial responsibility to begin on 06/22/18. Resident is not agreeable to discharge date as resident lives alone and is reporting to still need assistance with bathing and gets dizzy. Resident does have limited support within the community. Resident is wanting to initiate appeal, resident initiating appeal at this time. Resident aware that continued discharge planning will need to be facilitated in the event that the appeal is lost. The team is recommending for resident to continue with services as resident has not even had a week of therapy at this time. Resident reporting that discharge plan would be for resident to discharge to home alone on 06/22/18 in the event that the appeal is lost. Resident reporting to need assistance with Meals and bathing. This elementary school social worker explaining that a home health aide along with a physical and occupational therapist would be set up through home health care in the event of a discharge later this week. Resident agreeable to home health care services. Resident also agreeable to Meals on Wheels referral for 14 frozen meals a week. Resident reporting to also need a front wheeled walker if resident is to discharge this week. Resident agreeable to this socia worker contacting resident Chastity lawton in regards to above information. This elementary school social worker did also broach topic of an extended care facility or private duty aides within the home. Resident reporting to not be able to afford an extended care facility or private duty aides at home. Resident reporting to have had Medicaid in the past but to not currently have Medicaid due to having received some fund from land that resident owns. Resident is not interested in looking into an extended care facility at this moment. Support given. Will continue to follow for further support and discharge planning, as needed. Proposed discharge date: 06/22/18, pending appeal. PLAN: Discharge to home alone with home health care, pending appeal. ARTURO Jin
--- NOTE | 2018-06-19 17:14 | CASEMGMT ---
Brief interview for mental status (BIMS) and resident mood interview (PHQ-9) completed on this day. BIMS score 15. PHQ-9 score 08/01
[2018-06-19 17:48] VITALS: BP 108/59; PULSE 60
[2018-06-19] MEDS: Atorvastatin Calcium 40 MG Tablet PO (20:07)
[2018-06-19 20:30] VITALS: PULSE 59; RESP 16
--- NOTE | 2018-06-19 20:55 | DCINST_ITS ---
- Discharge Diagnoses Current Active Problems: Current Active and Chronic Problems Chest pain (Acute) NSTEMI (non-ST elevated myocardial infarction) (Acute) Coronary artery disease (Chronic) Stroke (Chronic) UTI (urinary tract infection) (Acute) Anxiety (Chronic) Overactive bladder (Chronic) You will use the following diet at home:: No restrictions, Regular Your food should be the consistency of: Regular Your liquids should be the consistency of: Regular/Thin Discharge Activity: Return to Normal Activity, May Shower, Use Walker Weight Bearing Status: Weight bearing as tolerated Call your doctor if you observe: Fever of 101 or Higher, Inability to urinate, Inability to have a bowel movement, Shortness of breath, Chest pain, Uncontrolled pain Allergies/Adverse Reactions: Allergies codeine Allergy (Verified 09/12/13 15:13) Swelling Penicillins Allergy (Verified 09/12/13 15:13) Swelling Sulfa (Sulfonamide Antibiotics) Allergy (Verified 09/12/13 15:13) Swelling diphenhydramine [From Benadryl] Adverse Reaction (Verified 06/14/18 22:25) Other metoclopramide [From Reglan] Adverse Reaction (Verified 06/14/18 22:25) Other Medications to take at Discharge Ascorbic Acid 500 mg PO BID 06/14/18 Aspirin E.C. [Ecotrin] 81 mg PO DAILY@0800 06/14/18 Cholecalciferol (Vitamin D3) [Vitamin D3] 3,000 unit PO DAILY@0800 06/14/18 Lactobacillus Acidophilus [Acidophilus] 1 each PO DAILY 06/14/18 Oxybutynin [Ditropan] 5 mg PO DAILY 06/14/18 busPIRone [Buspar] 7.5 mg PO DAILY 06/14/18 Acetaminophen [Tylenol] 1,000 mg PO Q6H PRN PRN tablet 06/19/18 Atorvastatin Calcium 40 mg PO QHS #30 tab 06/19/18 Clopidogrel Bisulfate [Clopidogrel] 75 mg PO DAILY #30 tab 06/19/18 Insulin Glargine [Lantus SoloStar Pen] 5 units SUBCUT BID #1 pen 06/19/18 Insulin Lispro [Humalog KwikPen] 3 unit SUBCUT TIDCM #1 insuln.pen 06/19/18 Ipratropium/Albuterol Sulfate [Duoneb] 3 ml INHALATION Q6HWA.RT PRN #100 ampul.neb 06/19/18 Menthol/Lanolin/Calamine/Znox [Calmoseptine Ointment] 1 applic TOPICAL 0600,2200 tube 06/19/18 Metoprolol Tartrate 25 mg PO BID #60 tab 06/19/18 Mineral Oil/Petrolatum,White [Eucerin] 1 applic TOPICAL 0600,2200 jar 06/19/18 Nystatin Powder [Mycostatin Powder] 1 applic TOPICAL 0600,2200 bottle 06/19/18 Ondansetron [Zofran Odt] 4 mg PO Q6H PRN PRN #30 tab 06/19/18 Oxycodone [Oxyir] 5 mg PO Q6H PRN PRN 5 Days #30 tab 06/19/18 Polyethylene Glycol 3350 [Miralax] 17 gm PO DAILY@0800 #30 packet 06/19/18 Senna/Docusate Sodium [Senokot-S] 1 tab PO BID@0800,1800 #60 tab 06/19/18 The following prescriptions were given: Ipratropium/Albuterol Sulfate [Duoneb] 3 ml INHALATION Q6HWA.RT PRN #100 ampul.neb PRN Reason: sob/wheezing Ondansetron [Zofran Odt] 4 mg PO Q6H PRN PRN #30 tab PRN Reason: NAUSEA Oxycodone [Oxyir] 5 mg PO Q6H PRN PRN 5 Days #30 tab PRN Reason: Moderate Pain (4-5/10) Atorvastatin Calcium 40 mg PO QHS #30 tab Clopidogrel Bisulfate [Clopidogrel] 75 mg PO DAILY #30 tab Polyethylene Glycol 3350 [Miralax] 17 gm PO DAILY@0800 #30 packet Senna/Docusate Sodium [Senokot-S] 1 tab PO BID@0800,1800 #60 tab Insulin Glargine [Lantus SoloStar Pen] 5 units SUBCUT BID #1 pen Metoprolol Tartrate 25 mg PO BID #60 tab Insulin Lispro [Humalog KwikPen] 3 unit SUBCUT TIDCM #1 insuln.pen Please follow up with your Primary Care Physician in: 1 week. Test Results: Test results from this visit will be discussed in further detail at your follow- up appointment, if applicable. Please Follow Up With: Sundeep Crowe TIMBER INCISOR OPERATOR Cardiac,Thoracic & Vasc When: [phone] Please Follow Up With: Caridology When: [phone] Please Follow Up With: Dr Daniel When: [phone] Proposed Discharge Date: 06/22/18
--- NOTE | 2018-06-19 20:55 | PCM.DC.SUM ---
Discharge Date and Diagnosis - Problem List Patient Problems: Active and Suspected Problems Chest pain (Acute) NSTEMI (non-ST elevated myocardial infarction) (Acute) UTI (urinary tract infection) (Acute) Date of Admission: 06/14/18 Date of Discharge: 06/22/18 - Primary Discharge Diagnosis Active and Suspected Problems Chest pain (Acute) NSTEMI (non-ST elevated myocardial infarction) (Acute) UTI (urinary tract infection) (Acute) - Secondary Discharge Diagnosis Chronic Problems Coronary artery disease (Chronic) Stroke (Chronic) Anxiety (Chronic) Overactive bladder (Chronic) Tobacco abuse (Chronic) Diabetes (Chronic) Hyperlipidemia (Chronic) Hypertension (Chronic) Hospital Course and Treatment Imaging Results: 06/15/18 06:58 Diet: Cardiac/Low Cholesterol Dietary Modifications:: Fluid Restricted Diet Is pt able to select menu?: Yes Diet Comments: 2L FR Clinical Impression(s) from Imaging Studies KUB X-Ray 06/15/18 22:16 IMPRESSION: 1. Nonobstructive bowel gas pattern. No acute abdominal disease seen. 2. If symptoms warrant, further correlation with CT may be of benefit. at 0713 Reported and signed by: Abdoulaye Abreu MD Electronically Signed: bAdoulaye Abreu, at 7:12 EST Tel , Service support , Labs (Last 48 Hours) 06/17/18 06/18/18 06/18/18 21:01 06:22 11:09 POC Glucose 148 H 145 H 181 H 06/18/18 06/18/18 06/19/18 17:11 20:43 06:13 POC Glucose 129 H 149 H 144 H 06/19/18 06/19/18 11:34 16:44 POC Glucose 215 H 167 H Operations: None Procedures: None Summary of Care Provided: The patient is a 68 year old Female with below past medical history hospitalized for NSTEMI, underwent CABG x 3, complicated by acute blood loss anemia, encephalopathy, urinary tract infection, admitted to TCU with debility, here for rehabilitation, strengthening, prior to discharge home alone. Discharge home alone with Home Health Care, pending appeal. Patient Problems: Active and Suspected Problems Chest pain (Acute) NSTEMI (non-ST elevated myocardial infarction) (Acute) UTI (urinary tract infection) (Acute) - Physical Exam Vital Signs Temp Pulse Resp BP Pulse Ox 97.8 F 60 18 108/59 L 93 06/19/18 15:53 06/19/18 17:48 06/19/18 15:53 06/19/18 17:48 06/19/18 15:53 Oxygen Flow Rate (L/min) 3 Oxygen Delivery Method Room Air Weight: 69.513 kg Body Mass Index (BMI) 31.7 Intake and Output for Last 24 Hours 06/17/18 06/18/18 06/19/18 23:59 23:59 23:59 Intake Total 120 / 120 710 / 710 480 / 480 Balance 120 / 120 710 / 710 480 / 480 POC Glucose 06/19/18 06/19/18 06/19/18 16:44 11:34 06:13 POC Glucose 167 H 215 H 144 H Discharge Diet: No Restrictions Discharge Activity: Return to Normal Activity, May Shower, Use Walker Weight Bearing Status: Weight bearing as tolerated Call your doctor if you observe: Fever of 101 or Higher, Inability to urinate, Inability to have a bowel movement, Shortness of breath, Chest pain, Uncontrolled pain Home Medications: Medications to take at Discharge Ascorbic Acid 500 mg PO BID 06/14/18 Aspirin E.C. [Ecotrin] 81 mg PO DAILY@0800 06/14/18 Cholecalciferol (Vitamin D3) [Vitamin D3] 3,000 unit PO DAILY@0800 06/14/18 Lactobacillus Acidophilus [Acidophilus] 1 each PO DAILY 06/14/18 Oxybutynin [Ditropan] 5 mg PO DAILY 06/14/18 busPIRone [Buspar] 7.5 mg PO DAILY 06/14/18 Acetaminophen [Tylenol] 1,000 mg PO Q6H PRN PRN tablet 06/19/18 Atorvastatin Calcium 40 mg PO QHS #30 tab 06/19/18 Clopidogrel Bisulfate [Clopidogrel] 75 mg PO DAILY #30 tab 06/19/18 Insulin Glargine [Lantus SoloStar Pen] 5 units SUBCUT BID #1 pen 06/19/18 Insulin Lispro [Humalog KwikPen] 3 unit SUBCUT TIDCM #1 insuln.pen 06/19/18 Ipratropium/Albuterol Sulfate [Duoneb] 3 ml INHALATION Q6HWA.RT PRN #100 ampul.neb 06/19/18 Menthol/Lanolin/Calamine/Znox [Calmoseptine Ointment] 1 applic TOPICAL 0600,2200 tube 06/19/18 Metoprolol Tartrate 25 mg PO BID #60 tab 06/19/18 Mineral Oil/Petrolatum,White [Eucerin] 1 applic TOPICAL 0600,2200 jar 06/19/18 Nystatin Powder [Mycostatin Powder] 1 applic TOPICAL 0600,2200 bottle 06/19/18 Ondansetron [Zofran Odt] 4 mg PO Q6H PRN PRN #30 tab 06/19/18 Oxycodone [Oxyir] 5 mg PO Q6H PRN PRN 5 Days #30 tab 06/19/18 Polyethylene Glycol 3350 [Miralax] 17 gm PO DAILY@0800 #30 packet 06/19/18 Senna/Docusate Sodium [Senokot-S] 1 tab PO BID@0800,1800 #60 tab 06/19/18 Following Prescrptions Were Given to Patient: Ipratropium/Albuterol Sulfate [Duoneb] 3 ml INHALATION Q6HWA.RT PRN #100 ampul.neb PRN Reason: sob/wheezing Ondansetron [Zofran Odt] 4 mg PO Q6H PRN PRN #30 tab PRN Reason: NAUSEA Oxycodone [Oxyir] 5 mg PO Q6H PRN PRN 5 Days #30 tab PRN Reason: Moderate Pain (4-5/10) Atorvastatin Calcium 40 mg PO QHS #30 tab Clopidogrel Bisulfate [Clopidogrel] 75 mg PO DAILY #30 tab Polyethylene Glycol 3350 [Miralax] 17 gm PO DAILY@0800 #30 packet Senna/Docusate Sodium [Senokot-S] 1 tab PO BID@0800,1800 #60 tab Insulin Glargine [Lantus SoloStar Pen] 5 units SUBCUT BID #1 pen Metoprolol Tartrate 25 mg PO BID #60 tab Insulin Lispro [Humalog KwikPen] 3 unit SUBCUT TIDCM #1 insuln.pen Please follow up with your Primary Care Physician in: 1 week. Please Follow Up With: Weina Sebastien ULTRASONIC SOLDERER Cardiac,Thoracic & Vasc When: [phone] Please Follow Up With: [facility] When: [phone] Please Follow Up With: Dr Daniel When: [phone] Disposition: Home with Home Health Minutes spent on discharge:: 35 Patient Condition:: Stable Medical Necessity - Tobacco Use Smoking Status: Former smoker Tobacco Use: Non-smoker Meaningful Use Info Meaningful Use Diagnoses (Choose all that apply): AMI - AMI Aspirin given w/in 24hrs of arrival?: Yes ASA at discharge?: Yes Statins at discharge?: Yes Wyatt/ARB at discharge?: No Reason Wyatt/ARB not ordered:: Hypotension Beta Rozina at discharge?: Yes Done w/ Acute MT measure.: Yes
--- NOTE | 2018-06-19 20:57 | PCM.PN.HH ---
Home Health Note - Plan Overview of reason of hospitalization: The patient is a 68 year old Female with below past medical history hospitalized for NSTEMI, underwent CABG x 3, complicated by acute blood loss anemia, encephalopathy, urinary tract infection, admitted to TCU with debility, here for rehabilitation, strengthening, prior to discharge home alone. Discharge home alone with Home Health Care, pending appeal. Problems: Patient was seen for Chest pain (Acute) NSTEMI (non-ST elevated myocardial infarction) (Acute) Coronary artery disease (Chronic) Stroke (Chronic) UTI (urinary tract infection) (Acute) Anxiety (Chronic) Overactive bladder (Chronic) Complete List of Medical Problems Chest pain (Acute) NSTEMI (non-ST elevated myocardial infarction) (Acute) Coronary artery disease (Chronic) Stroke (Chronic) UTI (urinary tract infection) (Acute) Anxiety (Chronic) Overactive bladder (Chronic) Tobacco abuse (Chronic) Diabetes (Chronic) Hyperlipidemia (Chronic) Hypertension (Chronic) Pancreatitis (Acute) - Requirements and Reasons Disciplines Needed/Ordered: Physical Therapy Reason for Disciplines: Gait Training, Stair Training, Fall Prevention, Home Safety/Equipment Instruction, Balance and/or Posture Training, Transfer Training, Swallowing Exercise/Education Related To: Limited/Poor Endurance, Shortness of Breath with Activity, Physical Impairments, Unsteady Gait/Balance, Fall Risk Patient is unable to leave the home: Without Aid of Supportive Devices (crutches, cane, wheelchair, walker), Without the assistance of another person - Additional Disciplines Additional Disciplines Needed/Ordered: Occupational Therapy, Home Health Aide
[2018-06-19 21:26] LABS: Bedside Glucose 145 mg/dL (70-110)
[2018-06-20] VITALS (7 sets, daily range): BP systolic 133; BP diastolic 62; PULSE 60–92; RESP 16–18; TEMP 36.4; O2SAT 95–98
[2018-06-20] MEDS: Nystatin Powder 15gm Bottle 1 APPLIC TOPICAL ×2 (06:31→21:34)
[2018-06-20] MEDS: Menthol/Lanolin/Calamine/Znox 113 GM Tube 1 APPLIC TOPICAL ×2 (06:32→21:33)
[2018-06-20] MEDS: Enoxaparin 40 MG/0.4 ML Syringe SC (06:34)
[2018-06-20 06:45] LABS: Bedside Glucose 152 mg/dL (70-110)
[2018-06-20] MEDS: Insulin Lispro 100 UNIT/ML INSULN.PEN SC ×3 (08:52→17:52)
[2018-06-20] MEDS: Aspirin E.C. 81 MG Tablet PO (08:53)
[2018-06-20] MEDS: Polyethylene Glycol 3350 17 GM PACKET PO (08:53)
[2018-06-20] MEDS: Metoprolol Tartrate 25 MG Tablet PO ×2 (08:53→17:51)
[2018-06-20] MEDS: Senna/Docusate Sodium 1 Tablet PO ×2 (08:53→17:51)
[2018-06-20] MEDS: Clopidogrel Bisulfate 75 MG Tablet PO (08:53)
[2018-06-20] MEDS: Ascorbic Acid 500 MG Tablet PO ×2 (08:53→18:04)
[2018-06-20] MEDS: Ciprofloxacin 500 MG Tablet PO ×2 (08:54→17:11)
[2018-06-20] MEDS: busPIRone 15 MG TABLET 7.5 MG PO (08:54)
[2018-06-20] MEDS: Oxybutynin 5 MG Tablet PO (08:54)
[2018-06-20] MEDS: Ondansetron ODT 4 MG Tablet PO ×2 (09:22→18:00)
[2018-06-20] MEDS: oxyCODONE 5 MG Tablet PO ×2 (09:22→18:01)
[2018-06-20] MEDS: Ipratropium/Albuterol Sulfate 3 ML AMPUL.NEB INHALATION ×3 (09:44→22:20)
[2018-06-20 11:56] LABS: Bedside Glucose 205 mg/dL (70-110)
--- NOTE | 2018-06-20 13:41 | CASEMGMT ---
Plan of care meeting held. Resident present as well as resident family. Resident to discharge on 06/22/18 pending appeal outcome. Resident reporting to need a walker and does not have a preference of [employer], [employer] to be utilized. Resident also agreeable to home health services within the home for physical and occupational therapy as well as a home health aide. Resident requesting for home health care to be set up through [facility] ([facility] Resident requesting for Meals on Wheels to be set up for 14 frozen diabetic meals. Resident plans to discharge to own home but is possibly going to discharge to resident granddaughter's home. Resident and resident granddaughter plan to discuss discharge placement/plan further. Support given. [facility] This social services designee making referral for physical and occupational therapy as well as a home health aide. Order completed. Order for front wheeled walker faxed to [employer]. Walker to be delivered to resident room prior to resident discharge. Will continue to follow to set up Meals on Wheels. Proposed discharge date: 06/22/18 pending appeal. PLAN: Discharge to home alone with home health care, pending appeal. Paresh GARCÍA, ARTURO
--- NOTE | 2018-06-20 16:24 | CASEMGMT ---
Social Work Spoke with resident and resident granddaughter, Asuncion. Plan is for resident to discharge to home with Asuncion at time of discharge. Updated home health care on resident discharge plan and Asuncion's address. Added Asuncion's address to demographic's sheet as well. Telephone call from Eugenie, [facility] is not in network with resident insurance. Resident agreeable to referral being faxed to [facility] for walker as [facility] is in network with resident insurance. Order for walker faxed to [facility]. [facility] to deliver walker to resident room prior to resident discharge. Proposed discharge date: 06/22/18 pending appeal. PLAN: Discharge to granddaughters home with home health care. Paresh GARCÍA MSW
[2018-06-20 16:51] LABS: Bedside Glucose 127 mg/dL (70-110)
[2018-06-20 21:16] LABS: Bedside Glucose 144 mg/dL (70-110)
[2018-06-20] MEDS: Acetaminophen 500 MG Tablet 1000 MG PO (21:29)
[2018-06-20] MEDS: Atorvastatin Calcium 40 MG Tablet PO (21:29)
[2018-06-21 06:02] VITALS: PULSE 61; RESP 16
[2018-06-21] MEDS: Ipratropium/Albuterol Sulfate 3 ML AMPUL.NEB INHALATION ×3 (06:02→22:15)
[2018-06-21] MEDS: Enoxaparin 40 MG/0.4 ML Syringe SC (06:28)
[2018-06-21] MEDS: oxyCODONE 5 MG Tablet PO ×2 (06:33→14:09)
[2018-06-21] MEDS: Ondansetron ODT 4 MG Tablet PO ×2 (06:37→14:09)
[2018-06-21] MEDS: Menthol/Lanolin/Calamine/Znox 113 GM Tube 1 APPLIC TOPICAL ×2 (06:40→21:40)
[2018-06-21] MEDS: Nystatin Powder 15gm Bottle 1 APPLIC TOPICAL ×2 (06:40→21:41)
[2018-06-21 06:41] LABS: Bedside Glucose 151 mg/dL (70-110)
[2018-06-21] MEDS: Insulin Lispro 100 UNIT/ML INSULN.PEN SC ×3 (08:30→17:51)
[2018-06-21 08:31] VITALS: BP 138/74; PULSE 74
[2018-06-21] MEDS: Ascorbic Acid 500 MG Tablet PO ×2 (08:31→17:54)
[2018-06-21] MEDS: Clopidogrel Bisulfate 75 MG Tablet PO (08:31)
[2018-06-21] MEDS: Polyethylene Glycol 3350 17 GM PACKET PO (08:31)
[2018-06-21] MEDS: Metoprolol Tartrate 25 MG Tablet PO ×2 (08:31→17:53)
[2018-06-21] MEDS: Aspirin E.C. 81 MG Tablet PO (08:31)
[2018-06-21] MEDS: Senna/Docusate Sodium 1 Tablet PO ×2 (08:31→17:54)
[2018-06-21] MEDS: Oxybutynin 5 MG Tablet PO (08:32)
[2018-06-21] MEDS: busPIRone 15 MG TABLET 7.5 MG PO (08:32)
[2018-06-21] MEDS: Ciprofloxacin 500 MG Tablet PO ×2 (08:32→17:53)
[2018-06-21 11:11] LABS: Bedside Glucose 172 mg/dL (70-110)
[2018-06-21 14:30] VITALS: PULSE 68; RESP 16
[2018-06-21 15:15] VITALS: BP 99/47; PULSE 55; RESP 16; TEMP 36.1; O2SAT 96
--- NOTE | 2018-06-21 16:47 | CASEMGMT ---
Addendum entered by Zoraida Sanchez 06/21/18 16:53: Telephone call to [facility], Marely. This psychosocial rehabilitation counselor left voicemail canceling home health referral at this time. Original Note: Social Work Telephone call from Vicente, resident won appeal. Spoke with resident and resident granddaughter, this psychosocial rehabilitation counselor communicating above information. Resident voicing understanding and glad to be able to continue with stay. Notified team. No discharge date set. Resident to continue with further care and treatment on the Transitional Care Unit. Paresh GARCÍA MSW
[2018-06-21 17:11] LABS: Bedside Glucose 157 mg/dL (70-110)
[2018-06-21] MEDS: Bisacodyl 5 MG Tablet 10 MG PO (17:20)
[2018-06-21 17:53] VITALS: PULSE 60
[2018-06-21 21:15] LABS: Bedside Glucose 123 mg/dL (70-110)
[2018-06-21] MEDS: Atorvastatin Calcium 40 MG Tablet PO (21:40)
[2018-06-21 22:15] VITALS: PULSE 60; RESP 16; O2SAT 93
[2018-06-22] MEDS: oxyCODONE 5 MG Tablet PO (06:10)
[2018-06-22] MEDS: Nystatin Powder 15gm Bottle 1 APPLIC TOPICAL ×2 (06:15→20:39)
[2018-06-22] MEDS: Menthol/Lanolin/Calamine/Znox 113 GM Tube 1 APPLIC TOPICAL ×2 (06:15→20:39)
[2018-06-22] MEDS: Enoxaparin 40 MG/0.4 ML Syringe SC (06:16)
[2018-06-22 06:26] LABS: Bedside Glucose 153 mg/dL (70-110)
[2018-06-22 06:26] LABS: Absolute Lymphocyte Count 1.71 X10^3/ul (0.83-4.51); Absolute Neutrophil Count 2.3 X10^3/uL (2.0-7.7); Basophil# 0.06 X10^3/uL; Basophil% 1.2 % (0-1); Eosinophil# 0.38 X10^3/uL; Eosinophils% 7.8 % (0-5); Hematocrit 35.8 % (37-47); Lymphocyte # 1.71 X10^3/ul (4.0); Mean Corp Hgb Conc 30.7 g/gl (32-36); Mean Corpuscular Hgb 29.3 pg (27.0-32.0); Mean Corpuscular Volume 95.2 fL (81-99); Mean Platelet Vol. 11.9 fl (6.2-12.0); Monocyte% 8.2 % (0-10); Neutrophil # 2.31 X10^3/uL (2.7-7.7); Neutrophil % 47.4 % (47-70); Platelet Count 377 K/mm3 (150-450); RBC Distribution Width CV 14.9 % (11.6-14.6); RBC Distribution Width SD 50.1 fl (35.1-43.9); Red Blood Count 3.76 M/mm3 (4.2-5.4); White Blood Count 4.9 K/mm3 (4.4-11.0)
[2018-06-22 06:35] LABS: Anion Gap 8 (5-15); BUN 19 mg/dL (7-18); BUN/Creat Ratio 20.4 RATIO (10-20); Calcium,Total 8.8 mg/dL (8.5-10.1); Chloride 110 mmol/L (98-107); Creatinine, Serum 0.93 mg/dL (0.55-1.02); EST Glomerular Filtration Rate 63 mL/min (>60); Est Glom Filt Rate - Afr Amer 77 mL/min (>60); Estimated Creatinine Clearance 62.96 ml/min; Glucose 141 mg/dL (74-106); Potassium 3.7 mmol/L (3.5-5.1); Sodium Level 144 mmol/L (136-145)
[2018-06-22 06:37] LABS: POSITIVE COUNT NO; POSITIVE DIFFERENTIAL NO; POSITIVE MORPHOLOGY NO
[2018-06-22] MEDS: Clopidogrel Bisulfate 75 MG Tablet PO (09:32)
[2018-06-22] MEDS: Polyethylene Glycol 3350 17 GM PACKET PO (09:32)
[2018-06-22] MEDS: Oxybutynin 5 MG Tablet PO (09:32)
[2018-06-22] MEDS: Senna/Docusate Sodium 1 Tablet PO ×2 (09:32→17:49)
[2018-06-22] MEDS: busPIRone 15 MG TABLET 7.5 MG PO (09:32)
[2018-06-22 09:33] VITALS: PULSE 64
[2018-06-22] MEDS: Aspirin E.C. 81 MG Tablet PO (09:33)
[2018-06-22] MEDS: Metoprolol Tartrate 25 MG Tablet PO ×2 (09:33→17:48)
[2018-06-22] MEDS: Ascorbic Acid 500 MG Tablet PO ×2 (09:34→17:48)
[2018-06-22] MEDS: Insulin Lispro 100 UNIT/ML INSULN.PEN SC ×3 (09:35→17:39)
[2018-06-22] MEDS: Acetaminophen 500 MG Tablet 1000 MG PO (09:56)
--- NOTE | 2018-06-22 10:15 | CASEMGMT ---
Insurance Continued stay approved due to appeal being overturned. Next update due on 06/25/18. Auth#[id number] ARTURO Jin
[2018-06-22 11:25] VITALS: PULSE 52; RESP 18; O2SAT 99
[2018-06-22] MEDS: Ipratropium/Albuterol Sulfate 3 ML AMPUL.NEB INHALATION ×2 (11:25→19:07)
[2018-06-22 11:36] LABS: Bedside Glucose 210 mg/dL (70-110)
[2018-06-22] MEDS: Tuberculin,Purif.prot.deriv. 50 TU/ML Vial 5 ML ID (12:27)
[2018-06-22 16:00] VITALS: BP 122/63; PULSE 54; RESP 14; TEMP 36.3; O2SAT 96
[2018-06-22 17:06] LABS: Bedside Glucose 133 mg/dL (70-110)
[2018-06-22 17:48] VITALS: BP 122/63; PULSE 54
[2018-06-22 19:07] VITALS: PULSE 59; RESP 18
[2018-06-22] MEDS: Atorvastatin Calcium 40 MG Tablet PO (20:39)
[2018-06-22 21:16] LABS: Bedside Glucose 133 mg/dL (70-110)
[2018-06-23] MEDS: oxyCODONE 5 MG Tablet PO ×3 (01:51→18:01)
[2018-06-23] MEDS: Menthol/Lanolin/Calamine/Znox 113 GM Tube 1 APPLIC TOPICAL ×2 (05:59→21:22)
[2018-06-23] MEDS: Enoxaparin 40 MG/0.4 ML Syringe SC (06:03)
[2018-06-23] MEDS: Nystatin Powder 15gm Bottle 1 APPLIC TOPICAL ×2 (06:03→21:21)
[2018-06-23 06:11] LABS: Bedside Glucose 133 mg/dL (70-110)
[2018-06-23] MEDS: Insulin Lispro 100 UNIT/ML INSULN.PEN SC ×3 (09:01→17:57)
[2018-06-23] MEDS: busPIRone 15 MG TABLET 7.5 MG PO (09:01)
[2018-06-23 09:02] VITALS: PULSE 68
[2018-06-23] MEDS: Oxybutynin 5 MG Tablet PO (09:02)
[2018-06-23] MEDS: Metoprolol Tartrate 25 MG Tablet PO ×2 (09:02→17:56)
[2018-06-23] MEDS: Aspirin E.C. 81 MG Tablet PO (09:02)
[2018-06-23] MEDS: Clopidogrel Bisulfate 75 MG Tablet PO (09:03)
[2018-06-23] MEDS: Polyethylene Glycol 3350 17 GM PACKET PO (09:03)
[2018-06-23] MEDS: Senna/Docusate Sodium 1 Tablet PO ×2 (09:03→17:56)
[2018-06-23] MEDS: Ascorbic Acid 500 MG Tablet PO ×2 (09:03→17:56)
[2018-06-23 09:56] VITALS: PULSE 59; RESP 17
[2018-06-23] MEDS: Ipratropium/Albuterol Sulfate 3 ML AMPUL.NEB INHALATION ×2 (09:56→18:39)
--- NOTE | 2018-06-23 10:53 | NURSING ---
Labs faxed to Dr Russell per order.
[2018-06-23 11:06] LABS: Bedside Glucose 173 mg/dL (70-110)
[2018-06-23] MEDS: Acetaminophen 500 MG Tablet 1000 MG PO ×2 (12:15→21:18)
[2018-06-23 16:00] VITALS: BP 121/67; PULSE 62; RESP 16; TEMP 35.2; O2SAT 95
[2018-06-23 17:01] LABS: Bedside Glucose 147 mg/dL (70-110)
[2018-06-23 17:56] VITALS: BP 121/67; PULSE 62
[2018-06-23] MEDS: Ondansetron ODT 4 MG Tablet PO (18:01)
[2018-06-23 18:40] VITALS: PULSE 60; RESP 16
[2018-06-23 20:56] LABS: Bedside Glucose 135 mg/dL (70-110)
[2018-06-23] MEDS: Atorvastatin Calcium 40 MG Tablet PO (21:18)
--- NOTE | 2018-06-23 21:23 | NURSING ---
Addendum entered by Huma Partida 06/24/18 10:08: DR Green aware of Ua, Cefdinir started Original Note: Pt complaint of burning with urination, frequency and only urinating small amounts. Dr. Green updated. New orders entered.
[2018-06-23 21:44] VITALS: O2SAT 98
[2018-06-24 01:54] LABS: Mucous, Urine 0 SEEN /hpf (<or=2+); Squamous Epithelial Cells - UA 0 SEEN /hpf (5-10)
[2018-06-24 01:55] LABS: Color, Urine Yellow (Yellow); Glucose, Dipstick Normal (Normal); Ketone-Dipstick 5 mg/dl (Negative); Leukocyte Esterase-Dipstick 500 /ul (Negative); Nitrite-Dipstick Negative (Negative); Occult Blood-Urine 10 /ul (Negative); Protein-Dipstick 30 mg/dl (Negative); Urine Bilirubin Dipstick Negative (Negative); Urine Clarity Sl. Cloudy (Clear); Urine Urobilinogen Normal (Normal)
[2018-06-24 02:03] LABS: White Blood Cells 10-25 SEEN /hpf (0-5)
[2018-06-24 02:04] LABS: Amorphous Sediment 3+; Bacteria 1+ /hpf (None Seen); Red Blood Cells-Urine 0-5 SEEN /hpf (0-5); Uric Acid Crystals Ur 2+ /hpf (<or=1+)
[2018-06-24] MEDS: Enoxaparin 40 MG/0.4 ML Syringe SC (06:42)
[2018-06-24] MEDS: Menthol/Lanolin/Calamine/Znox 113 GM Tube 1 APPLIC TOPICAL ×2 (06:44→21:22)
[2018-06-24] MEDS: Nystatin Powder 15gm Bottle 1 APPLIC TOPICAL (06:44)
[2018-06-24 06:45] LABS: Bedside Glucose 136 mg/dL (70-110)
[2018-06-24] MEDS: busPIRone 15 MG TABLET 7.5 MG PO (09:31)
[2018-06-24] MEDS: Oxybutynin 5 MG Tablet PO (09:31)
[2018-06-24] MEDS: Senna/Docusate Sodium 1 Tablet PO ×2 (09:32→17:59)
[2018-06-24] MEDS: Ascorbic Acid 500 MG Tablet PO ×2 (09:32→17:59)
[2018-06-24 09:33] VITALS: PULSE 68
[2018-06-24] MEDS: Polyethylene Glycol 3350 17 GM PACKET PO (09:33)
[2018-06-24] MEDS: Clopidogrel Bisulfate 75 MG Tablet PO (09:33)
[2018-06-24] MEDS: Metoprolol Tartrate 25 MG Tablet PO ×2 (09:33→17:59)
[2018-06-24] MEDS: Insulin Lispro 100 UNIT/ML INSULN.PEN SC ×3 (09:33→18:00)
[2018-06-24] MEDS: Aspirin E.C. 81 MG Tablet PO (09:33)
[2018-06-24 09:58] VITALS: PULSE 68; RESP 18
[2018-06-24] MEDS: oxyCODONE 5 MG Tablet PO ×2 (10:30→18:04)
[2018-06-24 11:20] LABS: Bedside Glucose 223 mg/dL (70-110)
[2018-06-24] MEDS: Ondansetron ODT 4 MG Tablet PO (12:17)
[2018-06-24 15:25] VITALS: BP 128/75; PULSE 80; RESP 16; TEMP 36.8; O2SAT 96
[2018-06-24 15:45] VITALS: PULSE 57; RESP 16
[2018-06-24] MEDS: Ipratropium/Albuterol Sulfate 3 ML AMPUL.NEB INHALATION (15:45)
[2018-06-24 16:51] LABS: Bedside Glucose 161 mg/dL (70-110)
[2018-06-24 17:59] VITALS: BP 128/75; PULSE 80
[2018-06-24] MEDS: Cefdinir 300 MG Capsule PO (17:59)
[2018-06-24 21:20] LABS: Bedside Glucose 164 mg/dL (70-110)
[2018-06-24] MEDS: Atorvastatin Calcium 40 MG Tablet PO (21:20)
[2018-06-24] MEDS: Acetaminophen 500 MG Tablet 1000 MG PO (21:20)
[2018-06-25] MEDS: Enoxaparin 40 MG/0.4 ML Syringe SC (06:24)
[2018-06-25] MEDS: Menthol/Lanolin/Calamine/Znox 113 GM Tube 1 APPLIC TOPICAL ×2 (06:26→21:03)
[2018-06-25] MEDS: Nystatin Powder 15gm Bottle 1 APPLIC TOPICAL ×2 (06:26→21:03)
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
[2018-06-25 09:01] LABS: Bedside Glucose 142 mg/dL (70-110)
[2018-06-25] MEDS: Insulin Lispro 100 UNIT/ML INSULN.PEN SC ×3 (09:28→17:42)
[2018-06-25] MEDS: Polyethylene Glycol 3350 17 GM PACKET PO (09:28)
[2018-06-25 09:29] VITALS: BP 130/77; PULSE 70
[2018-06-25] MEDS: Ondansetron ODT 4 MG Tablet PO ×2 (09:29→17:46)
[2018-06-25] MEDS: oxyCODONE 5 MG Tablet PO ×2 (09:29→20:57)
[2018-06-25] MEDS: Aspirin E.C. 81 MG Tablet PO (09:29)
[2018-06-25] MEDS: Metoprolol Tartrate 25 MG Tablet PO ×2 (09:29→17:44)
[2018-06-25] MEDS: Cefdinir 300 MG Capsule PO ×2 (09:30→20:57)
[2018-06-25] MEDS: busPIRone 15 MG TABLET 7.5 MG PO (09:30)
[2018-06-25] MEDS: Oxybutynin 5 MG Tablet PO (09:30)
[2018-06-25] MEDS: Ascorbic Acid 500 MG Tablet PO ×2 (09:31→17:44)
[2018-06-25] MEDS: Senna/Docusate Sodium 1 Tablet PO ×2 (09:31→17:44)
[2018-06-25] MEDS: Clopidogrel Bisulfate 75 MG Tablet PO (09:31)
--- NOTE | 2018-06-25 10:45 | CASEMGMT ---
Insurance Clinical information sent. Pending continued stay approval. Auth#[id number] ARTURO Jin
[2018-06-25 11:15] LABS: Bedside Glucose 203 mg/dL (70-110)
[2018-06-25] MEDS: Acetaminophen 500 MG Tablet 1000 MG PO (12:49)
[2018-06-25 13:55] VITALS: PULSE 58; RESP 16
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
[2018-06-25 15:36] VITALS: BP 123/68; PULSE 63; RESP 18; TEMP 35.6; O2SAT 93
[2018-06-25 16:52] LABS: Bedside Glucose 127 mg/dL (70-110)
[2018-06-25 17:44] VITALS: PULSE 63
[2018-06-25] MEDS: Atorvastatin Calcium 40 MG Tablet PO (20:57)
[2018-06-25 21:26] LABS: Bedside Glucose 151 mg/dL (70-110)
[2018-06-25 21:45] VITALS: PULSE 62; RESP 16
[2018-06-25] MEDS: Ipratropium/Albuterol Sulfate 3 ML AMPUL.NEB INHALATION (21:45)
[2018-06-26] MEDS: Enoxaparin 40 MG/0.4 ML Syringe SC (06:51)
[2018-06-26] MEDS: Menthol/Lanolin/Calamine/Znox 113 GM Tube 1 APPLIC TOPICAL ×2 (06:52→21:31)
[2018-06-26] MEDS: Nystatin Powder 15gm Bottle 1 APPLIC TOPICAL ×2 (06:53→21:31)
[2018-06-26 07:15] LABS: Bedside Glucose 150 mg/dL (70-110)
[2018-06-26] MEDS: Ondansetron ODT 4 MG Tablet PO ×2 (08:25→17:55)
[2018-06-26] MEDS: oxyCODONE 5 MG Tablet PO ×2 (08:25→17:55)
[2018-06-26] MEDS: Insulin Lispro 100 UNIT/ML INSULN.PEN SC ×3 (08:27→17:49)
--- NOTE | 2018-06-26 08:41 | CASEMGMT ---
Insurance Continued stay approved with next update due on 06/29/18 Auth#[id number] ARTURO Jin
[2018-06-26] MEDS: Aspirin E.C. 81 MG Tablet PO (10:19)
[2018-06-26] MEDS: busPIRone 15 MG TABLET 7.5 MG PO (10:19)
[2018-06-26] MEDS: Clopidogrel Bisulfate 75 MG Tablet PO (10:19)
[2018-06-26] MEDS: Cefdinir 300 MG Capsule PO ×2 (10:19→21:25)
[2018-06-26 10:20] VITALS: PULSE 64
[2018-06-26] MEDS: Senna/Docusate Sodium 1 Tablet PO ×2 (10:20→17:49)
[2018-06-26] MEDS: Ascorbic Acid 500 MG Tablet PO ×2 (10:20→17:48)
[2018-06-26] MEDS: Metoprolol Tartrate 25 MG Tablet PO ×2 (10:20→17:48)
[2018-06-26] MEDS: Oxybutynin 5 MG Tablet PO (10:21)
[2018-06-26] MEDS: Polyethylene Glycol 3350 17 GM PACKET PO (10:21)
[2018-06-26 11:56] LABS: Bedside Glucose 185 mg/dL (70-110)
[2018-06-26] MEDS: Ipratropium/Albuterol Sulfate 3 ML AMPUL.NEB INHALATION ×2 (12:06→21:07)
[2018-06-26 15:25] VITALS: BP 136/78; PULSE 75; RESP 18; TEMP 35.8; O2SAT 96
[2018-06-26 16:51] LABS: Bedside Glucose 121 mg/dL (70-110)
[2018-06-26 17:48] VITALS: BP 136/78; PULSE 75
[2018-06-26 21:05] LABS: Bedside Glucose 132 mg/dL (70-110)
[2018-06-26 21:07] VITALS: PULSE 61; RESP 18
[2018-06-26] MEDS: Atorvastatin Calcium 40 MG Tablet PO (21:25)
[2018-06-27] MEDS: Enoxaparin 40 MG/0.4 ML Syringe SC (06:46)
[2018-06-27 06:50] LABS: Bedside Glucose 122 mg/dL (70-110)
[2018-06-27] MEDS: Menthol/Lanolin/Calamine/Znox 113 GM Tube 1 APPLIC TOPICAL ×2 (06:52→19:48)
[2018-06-27] MEDS: Nystatin Powder 15gm Bottle 1 APPLIC TOPICAL ×2 (06:52→19:51)
[2018-06-27 08:15] VITALS: O2SAT 97
[2018-06-27] MEDS: oxyCODONE 5 MG Tablet PO ×2 (09:08→19:01)
[2018-06-27] MEDS: Insulin Lispro 100 UNIT/ML INSULN.PEN SC ×3 (09:09→17:36)
[2018-06-27 09:11] VITALS: PULSE 78
[2018-06-27] MEDS: Cefdinir 300 MG Capsule PO ×2 (09:11→19:48)
[2018-06-27] MEDS: Metoprolol Tartrate 25 MG Tablet PO ×2 (09:11→17:36)
[2018-06-27] MEDS: Oxybutynin 5 MG Tablet PO (09:11)
[2018-06-27] MEDS: Senna/Docusate Sodium 1 Tablet PO ×2 (09:11→17:37)
[2018-06-27] MEDS: Clopidogrel Bisulfate 75 MG Tablet PO (09:12)
[2018-06-27] MEDS: Aspirin E.C. 81 MG Tablet PO (09:12)
[2018-06-27] MEDS: Polyethylene Glycol 3350 17 GM PACKET PO (09:13)
[2018-06-27] MEDS: Ascorbic Acid 500 MG Tablet PO ×2 (09:13→17:37)
[2018-06-27] MEDS: busPIRone 15 MG TABLET 7.5 MG PO (09:13)
--- NOTE | 2018-06-27 09:16 | MDS.RN ---
Information for the mds was obtained from review of the clinical record, interview of resident, staff, and direct observation of resident's care.
[2018-06-27 11:45] LABS: Bedside Glucose 163 mg/dL (70-110)
[2018-06-27 13:19] VITALS: PULSE 61; RESP 16; O2SAT 93
[2018-06-27] MEDS: Ipratropium/Albuterol Sulfate 3 ML AMPUL.NEB INHALATION ×2 (13:19→19:55)
[2018-06-27 15:22] VITALS: BP 122/72; PULSE 58; RESP 18; TEMP 35.8; O2SAT 100
[2018-06-27 17:01] LABS: Bedside Glucose 128 mg/dL (70-110)
[2018-06-27 17:36] VITALS: BP 122/72; PULSE 62
[2018-06-27] MEDS: Atorvastatin Calcium 40 MG Tablet PO (19:50)
[2018-06-27 19:55] VITALS: PULSE 65; RESP 18
[2018-06-27 20:55] LABS: Bedside Glucose 127 mg/dL (70-110)
[2018-06-27] MEDS: Ondansetron ODT 4 MG Tablet PO (21:42)
[2018-06-28] MEDS: Menthol/Lanolin/Calamine/Znox 113 GM Tube 1 APPLIC TOPICAL ×2 (06:12→20:35)
[2018-06-28] MEDS: Nystatin Powder 15gm Bottle 1 APPLIC TOPICAL ×2 (06:16→20:35)
[2018-06-28] MEDS: Enoxaparin 40 MG/0.4 ML Syringe SC (06:20)
[2018-06-28 06:26] LABS: Bedside Glucose 131 mg/dL (70-110)
[2018-06-28] MEDS: Oxybutynin 5 MG Tablet PO (08:12)
[2018-06-28] MEDS: Aspirin E.C. 81 MG Tablet PO (08:12)
[2018-06-28] MEDS: busPIRone 15 MG TABLET 7.5 MG PO (08:12)
[2018-06-28] MEDS: Ascorbic Acid 500 MG Tablet PO ×2 (08:13→17:45)
[2018-06-28] MEDS: Insulin Lispro 100 UNIT/ML INSULN.PEN SC ×3 (08:13→17:47)
[2018-06-28] MEDS: Cefdinir 300 MG Capsule PO ×2 (08:13→20:35)
[2018-06-28] MEDS: Senna/Docusate Sodium 1 Tablet PO ×2 (08:13→17:45)
[2018-06-28] MEDS: Clopidogrel Bisulfate 75 MG Tablet PO (08:13)
[2018-06-28 08:15] VITALS: PULSE 78
[2018-06-28] MEDS: Metoprolol Tartrate 25 MG Tablet PO ×2 (08:15→17:44)
[2018-06-28] MEDS: Ondansetron ODT 4 MG Tablet PO (08:18)
[2018-06-28] MEDS: oxyCODONE 5 MG Tablet PO ×2 (08:18→19:53)
[2018-06-28] MEDS: Polyethylene Glycol 3350 17 GM PACKET PO (08:21)
[2018-06-28 10:45] VITALS: PULSE 68; RESP 16
[2018-06-28] MEDS: Ipratropium/Albuterol Sulfate 3 ML AMPUL.NEB INHALATION ×2 (10:45→18:50)
[2018-06-28 11:00] LABS: Bedside Glucose 140 mg/dL (70-110)
--- NOTE | 2018-06-28 14:43 | CASEMGMT ---
Insurance Clinical information faxed. Pending continued stay approval. Auth#[id number] ARTURO Jin
[2018-06-28 15:35] VITALS: BP 136/58; PULSE 58; RESP 16; TEMP 37.2; O2SAT 94
--- NOTE | 2018-06-28 16:04 | CASEMGMT ---
Brief interview for mental status (BIMS) and resident mood interview (PHQ-9) completed on this day. BIMS score 1515. PHQ-9 score 08/29
--- NOTE | 2018-06-28 16:26 | CASEMGMT ---
Social Work Completing durable power of research attorney for Health Care and living will paperwork with resident in room per resident request. Original provided to resident and copy placed on chart. Will continue to follow. ARTURO Jin
[2018-06-28 17:35] LABS: Bedside Glucose 114 mg/dL (70-110)
[2018-06-28 17:44] VITALS: BP 136/58; PULSE 58
[2018-06-28 18:50] VITALS: PULSE 78; RESP 18
[2018-06-28] MEDS: Atorvastatin Calcium 40 MG Tablet PO (20:35)
[2018-06-28 21:11] LABS: Bedside Glucose 116 mg/dL (70-110)
[2018-06-29 06:22] LABS: Absolute Lymphocyte Count 1.83 X10^3/ul (0.83-4.51); Absolute Neutrophil Count 1.9 X10^3/uL (2.0-7.7); Basophil# 0.11 X10^3/uL; Basophil% 2.4 % (0-1); Eosinophil# 0.28 X10^3/uL; Eosinophils% 6.2 % (0-5); Hematocrit 37.1 % (37-47); Hemoglobin 11.6 g/dl (12.0-15.0); Lymphocyte # 1.83 X10^3/ul (4.0); Lymphocyte % 40.6 % (19-41); Mean Corp Hgb Conc 31.3 g/gl (32-36); Mean Corpuscular Hgb 29.2 pg (27.0-32.0); Mean Corpuscular Volume 93.5 fL (81-99); Mean Platelet Vol. 12.6 fl (6.2-12.0); Monocyte# 0.42 X10^3/uL; Monocyte% 9.3 % (0-10); Neutrophil # 1.87 X10^3/uL (2.7-7.7); Neutrophil % 41.5 % (47-70); Platelet Count 212 K/mm3 (150-450); RBC Distribution Width CV 14.5 % (11.6-14.6); Red Blood Count 3.97 M/mm3 (4.2-5.4); White Blood Count 4.5 K/mm3 (4.4-11.0)
[2018-06-29 06:27] LABS: Anion Gap 10 (5-15); BUN 17 mg/dL (7-18); BUN/Creat Ratio 21.7 RATIO (10-20); Calcium,Total 8.7 mg/dL (8.5-10.1); Chloride 111 mmol/L (98-107); Creatinine, Serum 0.78 mg/dL (0.55-1.02); EST Glomerular Filtration Rate 77 mL/min (>60); Est Glom Filt Rate - Afr Amer 94 mL/min (>60); Estimated Creatinine Clearance 57.92 ml/min; Glucose 116 mg/dL (74-106); Potassium 3.7 mmol/L (3.5-5.1); Sodium Level 146 mmol/L (136-145)
[2018-06-29 06:34] LABS: POSITIVE COUNT NO; POSITIVE DIFFERENTIAL NO; POSITIVE MORPHOLOGY NO
[2018-06-29] MEDS: oxyCODONE 5 MG Tablet PO ×3 (06:35→21:25)
[2018-06-29] MEDS: Enoxaparin 40 MG/0.4 ML Syringe SC (06:36)
[2018-06-29] MEDS: Nystatin Powder 15gm Bottle 1 APPLIC TOPICAL ×2 (06:36→20:51)
[2018-06-29] MEDS: Menthol/Lanolin/Calamine/Znox 113 GM Tube 1 APPLIC TOPICAL ×2 (06:40→20:52)
[2018-06-29 06:51] LABS: Bedside Glucose 156 mg/dL (70-110)
[2018-06-29] MEDS: Oxybutynin 5 MG Tablet PO (08:00)
[2018-06-29] MEDS: Polyethylene Glycol 3350 17 GM PACKET PO (08:01)
[2018-06-29 08:02] VITALS: PULSE 76
[2018-06-29] MEDS: Metoprolol Tartrate 25 MG Tablet PO ×2 (08:02→17:30)
[2018-06-29] MEDS: Cefdinir 300 MG Capsule PO ×2 (08:02→20:50)
[2018-06-29] MEDS: busPIRone 15 MG TABLET 7.5 MG PO (08:02)
[2018-06-29] MEDS: Aspirin E.C. 81 MG Tablet PO (08:02)
[2018-06-29] MEDS: Senna/Docusate Sodium 1 Tablet PO ×2 (08:03→17:30)
[2018-06-29] MEDS: Clopidogrel Bisulfate 75 MG Tablet PO (08:03)
[2018-06-29] MEDS: Ascorbic Acid 500 MG Tablet PO ×2 (08:04→17:30)
[2018-06-29] MEDS: Insulin Lispro 100 UNIT/ML INSULN.PEN SC ×3 (08:05→17:31)
[2018-06-29 11:50] LABS: Bedside Glucose 153 mg/dL (70-110)
[2018-06-29] MEDS: Ondansetron ODT 4 MG Tablet PO (12:38)
[2018-06-29 15:43] VITALS: BP 113/55; PULSE 60; RESP 18; TEMP 36.3; O2SAT 96
[2018-06-29 17:11] LABS: Bedside Glucose 103 mg/dL (70-110)
[2018-06-29 17:30] VITALS: BP 113/55; PULSE 60
[2018-06-29] MEDS: Ipratropium/Albuterol Sulfate 3 ML AMPUL.NEB INHALATION (19:00)
[2018-06-29 19:15] VITALS: PULSE 76; RESP 18
[2018-06-29] MEDS: Atorvastatin Calcium 40 MG Tablet PO (20:50)
[2018-06-29 20:51] LABS: Bedside Glucose 126 mg/dL (70-110)
--- NOTE | 2018-06-29 20:55 | NURSING ---
This nurse into give HS meds. HS meds given without problem. Pt requesting to go to the restroom. Pt informed nurse she can not fasten her chest vest. This nurse inquiring pt's education on chest vest. Pt replied, I know how to do it, but it's your job to do it while I am here. This nurse educated pt on importance of performing all tasks to her greatest potential to prepare pt for going home. Pt fasted vest without any issues. This nurse went to assist pt get out of bed. Pt moved legs to side of the bed and stated, Its your job to pull me up. Pt had not even attempted to sit up without assistance. Nurse reeducated pt on the importance of preforming tasks to her max potential prior to obtaining assistance. The more independent and less assistance pt requires to more prepared the pt will be to return home. Pt continuing to make no attempt to sit. Pt rolling her eyes at nurse. Education provided again with more reassurance. Pt moving her legs to the side of the bed more and was able to sit up on own with minimal assistance. Pt assisted to the restroom. Much TLC provided, 1:1, therapeutic communication provided, pt denies further needs at this time, call light with in reach. Will continue to monitor and asses.
[2018-06-29 22:22] VITALS: O2SAT 97
[2018-06-30] MEDS: Enoxaparin 40 MG/0.4 ML Syringe SC (06:32)
[2018-06-30] MEDS: Menthol/Lanolin/Calamine/Znox 113 GM Tube 1 APPLIC TOPICAL ×2 (06:33→20:47)
[2018-06-30] MEDS: Nystatin Powder 15gm Bottle 1 APPLIC TOPICAL ×2 (06:34→20:47)
[2018-06-30 06:51] LABS: Bedside Glucose 122 mg/dL (70-110)
[2018-06-30] MEDS: Insulin Lispro 100 UNIT/ML INSULN.PEN SC ×3 (08:39→17:36)
[2018-06-30] MEDS: busPIRone 15 MG TABLET 7.5 MG PO (08:40)
[2018-06-30 08:41] VITALS: BP 138/80; PULSE 76
[2018-06-30] MEDS: Oxybutynin 5 MG Tablet PO (08:41)
[2018-06-30] MEDS: Aspirin E.C. 81 MG Tablet PO (08:41)
[2018-06-30] MEDS: Polyethylene Glycol 3350 17 GM PACKET PO (08:41)
[2018-06-30] MEDS: Metoprolol Tartrate 25 MG Tablet PO ×2 (08:41→17:35)
[2018-06-30] MEDS: Clopidogrel Bisulfate 75 MG Tablet PO (08:42)
[2018-06-30] MEDS: Cefdinir 300 MG Capsule PO ×2 (08:42→20:47)
[2018-06-30] MEDS: Senna/Docusate Sodium 1 Tablet PO ×2 (08:42→17:35)
[2018-06-30] MEDS: Ascorbic Acid 500 MG Tablet PO ×2 (08:43→17:35)
[2018-06-30] MEDS: oxyCODONE 5 MG Tablet PO ×2 (08:46→17:45)
[2018-06-30] MEDS: Ondansetron ODT 4 MG Tablet PO ×2 (08:46→17:45)
[2018-06-30 11:51] LABS: Bedside Glucose 147 mg/dL (70-110)
[2018-06-30 13:19] VITALS: PULSE 80; RESP 18
[2018-06-30] MEDS: Ipratropium/Albuterol Sulfate 3 ML AMPUL.NEB INHALATION ×2 (13:19→19:47)
[2018-06-30 15:20] VITALS: BP 98/52; PULSE 60; RESP 18; TEMP 35.9; O2SAT 93
[2018-06-30 16:50] LABS: Bedside Glucose 125 mg/dL (70-110)
[2018-06-30 17:35] VITALS: BP 157/72; PULSE 62
[2018-06-30 18:22] VITALS: BP 157/68; PULSE 62
--- NOTE | 2018-06-30 19:35 | NURSING ---
This nurse made aware that pt c/o community health nursing director grabbing vest while helping with bed mobility. This nurse went back to discuss incident with pt. Pt states that she was concerned for the integrity of her incision. Incisions assessed and were found to be unremarkable. Pt made aware of this. Pt then voiced concerns that any anterior rotation of her shoulders would impair healing of her surgical sites. This nurse encouraged pt to be as independent as possible and forwarded concerns to staff.
[2018-06-30 19:47] VITALS: PULSE 84; RESP 18
[2018-06-30] MEDS: Atorvastatin Calcium 40 MG Tablet PO (20:47)
[2018-06-30 21:21] LABS: Bedside Glucose 123 mg/dL (70-110)
[2018-07-01] MEDS: Enoxaparin 40 MG/0.4 ML Syringe SC (06:20)
[2018-07-01] MEDS: Menthol/Lanolin/Calamine/Znox 113 GM Tube 1 APPLIC TOPICAL ×2 (06:20→21:58)
[2018-07-01] MEDS: Nystatin Powder 15gm Bottle 1 APPLIC TOPICAL ×2 (06:20→21:58)
[2018-07-01 06:31] LABS: Bedside Glucose 122 mg/dL (70-110)
[2018-07-01] MEDS: Insulin Lispro 100 UNIT/ML INSULN.PEN SC ×2 (08:05→18:51)
[2018-07-01] MEDS: Oxybutynin 5 MG Tablet PO (08:06)
[2018-07-01] MEDS: busPIRone 15 MG TABLET 7.5 MG PO (08:06)
[2018-07-01 08:07] VITALS: BP 142/76; PULSE 88
[2018-07-01] MEDS: Metoprolol Tartrate 25 MG Tablet PO ×2 (08:07→18:47)
[2018-07-01] MEDS: Aspirin E.C. 81 MG Tablet PO (08:07)
[2018-07-01] MEDS: Clopidogrel Bisulfate 75 MG Tablet PO (08:08)
[2018-07-01] MEDS: Polyethylene Glycol 3350 17 GM PACKET PO (08:08)
[2018-07-01] MEDS: Senna/Docusate Sodium 1 Tablet PO ×2 (08:08→18:47)
[2018-07-01] MEDS: Ascorbic Acid 500 MG Tablet PO ×2 (08:08→18:47)
[2018-07-01] MEDS: Cefdinir 300 MG Capsule PO ×2 (08:08→21:59)
[2018-07-01 11:10] VITALS: PULSE 83; RESP 18
[2018-07-01] MEDS: Ipratropium/Albuterol Sulfate 3 ML AMPUL.NEB INHALATION ×2 (11:10→19:42)
[2018-07-01 11:50] LABS: Bedside Glucose 185 mg/dL (70-110)
[2018-07-01 15:45] VITALS: BP 107/55; PULSE 61; RESP 16; TEMP 36.2; O2SAT 96
[2018-07-01 17:26] LABS: Bedside Glucose 130 mg/dL (70-110)
[2018-07-01 18:47] VITALS: PULSE 62
[2018-07-01 19:45] VITALS: PULSE 70; RESP 16; O2SAT 95
[2018-07-01] MEDS: Ondansetron ODT 4 MG Tablet PO (21:56)
[2018-07-01] MEDS: oxyCODONE 5 MG Tablet PO (21:57)
[2018-07-01] MEDS: Atorvastatin Calcium 40 MG Tablet PO (21:59)
[2018-07-01 22:11] LABS: Bedside Glucose 113 mg/dL (70-110)
[2018-07-02] MEDS: Enoxaparin 40 MG/0.4 ML Syringe SC (06:14)
[2018-07-02] MEDS: Menthol/Lanolin/Calamine/Znox 113 GM Tube 1 APPLIC TOPICAL ×2 (06:17→19:47)
[2018-07-02] MEDS: Nystatin Powder 15gm Bottle 1 APPLIC TOPICAL ×2 (06:18→19:47)
[2018-07-02 06:21] LABS: Bedside Glucose 118 mg/dL (70-110)
[2018-07-02] MEDS: Insulin Lispro 100 UNIT/ML INSULN.PEN SC ×2 (08:06→18:00)
[2018-07-02] MEDS: Aspirin E.C. 81 MG Tablet PO (08:07)
[2018-07-02] MEDS: busPIRone 15 MG TABLET 7.5 MG PO (08:07)
[2018-07-02] MEDS: Oxybutynin 5 MG Tablet PO (08:07)
[2018-07-02 08:08] VITALS: PULSE 62
[2018-07-02] MEDS: Clopidogrel Bisulfate 75 MG Tablet PO (08:08)
[2018-07-02] MEDS: Ascorbic Acid 500 MG Tablet PO ×2 (08:08→18:05)
[2018-07-02] MEDS: Senna/Docusate Sodium 1 Tablet PO ×2 (08:08→18:04)
[2018-07-02] MEDS: Metoprolol Tartrate 25 MG Tablet PO ×2 (08:08→18:03)
[2018-07-02] MEDS: Cefdinir 300 MG Capsule PO ×2 (08:08→19:47)
[2018-07-02] MEDS: Polyethylene Glycol 3350 17 GM PACKET PO (08:09)
[2018-07-02] MEDS: oxyCODONE 5 MG Tablet PO (08:13)
[2018-07-02] MEDS: Ondansetron ODT 4 MG Tablet PO ×2 (08:14→16:54)
--- NOTE | 2018-07-02 09:45 | CASEMGMT ---
Insurance Continued stay denied by insurance with last cover day being 07/04/18 and resident to discharge on 07/05/18. Auth#[id number] ARTURO Jin
[2018-07-02 11:26] LABS: Bedside Glucose 141 mg/dL (70-110)
--- NOTE | 2018-07-02 11:37 | NURSING ---
resting in bed. Room dark. Refusing to get up and eat lunch at this time. Requesting to wait on insulin. This RN will reassess.
--- NOTE | 2018-07-02 13:02 | CASEMGMT ---
Pt's insurance has issued a letter stating pt's last date of coverage in TCU is July 04, 2018. SW spoke w/pt in room, explained to her that the last covered day in TCU is July 04, and her discharge date will be . Pt states understanding. Pt signed the letter from insurance acknowledging receipt of this notice. SW gave pt the original, copy in chart and copy provided to TCU VOLODYMYR Conway. SW also spoke w/pt about services at discharge. Pt agreeable to referral to [facility] and to Meals on Wheels. Pt also has an appointment with the agile project manager tomorrow, the cost of transport will be $250. SW explained this to the pt, she states understanding. She asked if [facility] had transport or if [facility] would help w/the cost, also asked if insurance would cover. SW explained that [facility] does not have transport, [facility] would not help as that is a hospital program and transport is provided by outside agencies. SW explained it is normally [facility] or [facility] who does the transport. SW also explained that unfortunately, her insurance does not cover this type of transport. Pt states understanding. Plan: home w/[facility] and Meals on Wheels referrals. SABINA Tyler, CORRECTIONS OFFICER
--- NOTE | 2018-07-02 16:50 | CASEMGMT ---
Social Work This social services analyst meeting with resident and resident granddaughterChastity in room. Resident reporting and for a walker and would also be interested in seeing is a hospital bed would be covered by insurance. Resident aware that orders will needs to be faxed to [facility] as [facility] is in network with resident insurance. Resident agreeable to utilizing [facility] for DME. Resident reporting to also not have transportation to home as Chastity does not drive. Resident plans to discharge to Chastity's home. Resident agreeable to utilizing [facility] transportation van. Support given. Will fax order for walker and hospital bed when obtained. Telephone call to [facility] Marely CASTELAN. This social services analyst making referral for physical and occupational therapy as well as a home health aide. Telephone call to [facility] Transportation: Transportation set up for 07/05/18 at 1:00pm. Staff and resident notified. Will continue to follow to set-up Meals on Wheels and DME Proposed discharge date: 07/05/18 PLAN: Discharge to Granddaughters home with home health care and ARTURO Mclaughlin
[2018-07-02 17:15] LABS: Bedside Glucose 139 mg/dL (70-110)
[2018-07-02 18:03] VITALS: PULSE 72
[2018-07-02] MEDS: guaiFENesin 600 MG Tablet PO (18:08)
[2018-07-02 18:09] VITALS: BP 154/80; PULSE 73; RESP 14; TEMP 36.7; O2SAT 94
[2018-07-02 18:54] VITALS: PULSE 65; RESP 18
[2018-07-02] MEDS: Ipratropium/Albuterol Sulfate 3 ML AMPUL.NEB INHALATION (18:54)
[2018-07-02] MEDS: Atorvastatin Calcium 40 MG Tablet PO (19:48)
[2018-07-02 21:30] LABS: Bedside Glucose 125 mg/dL (70-110)
[2018-07-03] MEDS: Enoxaparin 40 MG/0.4 ML Syringe SC (06:47)
[2018-07-03] MEDS: Nystatin Powder 15gm Bottle 1 APPLIC TOPICAL ×2 (06:49→22:06)
[2018-07-03] MEDS: Menthol/Lanolin/Calamine/Znox 113 GM Tube 1 APPLIC TOPICAL ×2 (06:49→22:05)
[2018-07-03 06:55] LABS: Bedside Glucose 135 mg/dL (70-110)
[2018-07-03 09:29] VITALS: PULSE 68
[2018-07-03] MEDS: Polyethylene Glycol 3350 17 GM PACKET PO (09:29)
[2018-07-03] MEDS: Oxybutynin 5 MG Tablet PO (09:29)
[2018-07-03] MEDS: Metoprolol Tartrate 25 MG Tablet PO ×2 (09:29→18:30)
[2018-07-03] MEDS: Cefdinir 300 MG Capsule PO ×2 (09:30→22:05)
[2018-07-03] MEDS: busPIRone 15 MG TABLET 7.5 MG PO (09:30)
[2018-07-03] MEDS: Aspirin E.C. 81 MG Tablet PO (09:30)
[2018-07-03] MEDS: Senna/Docusate Sodium 1 Tablet PO ×2 (09:30→18:32)
[2018-07-03] MEDS: Insulin Lispro 100 UNIT/ML INSULN.PEN SC ×3 (09:30→18:29)
[2018-07-03] MEDS: Ascorbic Acid 500 MG Tablet PO ×2 (09:30→18:30)
[2018-07-03] MEDS: Clopidogrel Bisulfate 75 MG Tablet PO (09:30)
[2018-07-03] MEDS: guaiFENesin 600 MG Tablet PO ×2 (09:49→22:05)
--- NOTE | 2018-07-03 10:29 | CASEMGMT ---
Social Work Referral made to [employer] for 14 frozen meals weekly, per resident request. MOW's aware that resident will discharge to granddaughters home. Order for front wheeled walker and hospital bed faxed to [employer] along with supportive documentation. [employer] to deliver walker as well as hospital bed. Proposed discharge date: 07/05/18 PLAN: Discharge to home with granddaughter and home health care. ARTURO Jin
[2018-07-03 11:50] LABS: Bedside Glucose 181 mg/dL (70-110)
[2018-07-03] MEDS: oxyCODONE 5 MG Tablet PO (12:14)
[2018-07-03] MEDS: Ondansetron ODT 4 MG Tablet PO (12:14)
--- NOTE | 2018-07-03 13:20 | NURSING ---
Pt out to appt with chirag
[2018-07-03 18:30] VITALS: BP 164/89; PULSE 70
[2018-07-03 18:34] VITALS: BP 164/89; PULSE 72; RESP 16; TEMP 36.2; O2SAT 98
[2018-07-03 18:40] LABS: Bedside Glucose 129 mg/dL (70-110)
--- NOTE | 2018-07-03 19:01 | NURSING ---
PT returned from cardiology appt. Continue with current orders. f/u with cardiology 01/17/19 at 1000
[2018-07-03 21:30] LABS: Bedside Glucose 166 mg/dL (70-110)
[2018-07-03] MEDS: Atorvastatin Calcium 40 MG Tablet PO (22:05)
[2018-07-04] MEDS: Menthol/Lanolin/Calamine/Znox 113 GM Tube 1 APPLIC TOPICAL ×2 (06:06→21:45)
[2018-07-04] MEDS: Nystatin Powder 15gm Bottle 1 APPLIC TOPICAL ×2 (06:06→21:47)
[2018-07-04] MEDS: Enoxaparin 40 MG/0.4 ML Syringe SC (06:09)
[2018-07-04 06:15] LABS: Bedside Glucose 123 mg/dL (70-110)
[2018-07-04] MEDS: Aspirin E.C. 81 MG Tablet PO (09:10)
[2018-07-04] MEDS: busPIRone 15 MG TABLET 7.5 MG PO (09:10)
[2018-07-04 09:11] VITALS: PULSE 66
[2018-07-04] MEDS: Metoprolol Tartrate 25 MG Tablet PO ×2 (09:11→17:47)
[2018-07-04] MEDS: Oxybutynin 5 MG Tablet PO (09:11)
[2018-07-04] MEDS: Clopidogrel Bisulfate 75 MG Tablet PO (09:11)
[2018-07-04] MEDS: Cefdinir 300 MG Capsule PO ×2 (09:11→21:44)
[2018-07-04] MEDS: guaiFENesin 600 MG Tablet PO ×2 (09:11→21:44)
[2018-07-04] MEDS: Ascorbic Acid 500 MG Tablet PO ×2 (09:12→17:47)
[2018-07-04] MEDS: Insulin Lispro 100 UNIT/ML INSULN.PEN SC ×3 (09:12→17:47)
[2018-07-04] MEDS: Ondansetron ODT 4 MG Tablet PO (09:37)
[2018-07-04] MEDS: oxyCODONE 5 MG Tablet PO (10:22)
[2018-07-04 10:58] VITALS: PULSE 69; RESP 16
[2018-07-04] MEDS: Ipratropium/Albuterol Sulfate 3 ML AMPUL.NEB INHALATION ×2 (11:00→21:40)
[2018-07-04 11:40] LABS: Bedside Glucose 164 mg/dL (70-110)
--- NOTE | 2018-07-04 13:39 | CASEMGMT ---
Social Work Spoke with resident in room. Resident reporting to be unable to discharge tomorrow. This hospital social worker exploring resident reason for not being able to discharge. Resident reporting that resident granddaughter is now in the hospital and not able to take care of resident within the community. This hospital social worker collaborating with therapy, therapy is reporting that resident would be able to manage own needs within the community. Resident reporting to not believe that resident is able to care for self without granddaughter. Resident wanting to look into transitioning to a [facility] facility or continue with stay on this unit. This hospital social worker reminding resident that continued stay has been denied by insurance and that it is now out of the appeal window, resident not wanting to appeal. This hospital social worker communicating private pay rate at this facility. Resident reporting to not be able to afford continued stay on this unit and wanting this hospital social worker to look into the [facility], [facility], and [facility]. This hospital social worker contacting all mentioned facilities and providing resident with private pay rates. Resident choosing [facility] and reporting to be able to afford the private pay rate. Resident wanting to continue with the [facility] transportation van to provide transportation to the [facility], if the [facility] is able to accept. Resident also wanting this hospital social worker to contact resident granddaughterChastity. Telephone call to Chastity. Chastity agreeable to discharge plan. Support given. Transfer form initiated and team updated. [facility]. This hospital social worker making formal referral. Clinical information faxed. Pending approval at this time. Proposed discharge date: 07/05/18 PLAN: Discharge to the [facility] - Intermediate Level of Care. ARTURO Jin
[2018-07-04 15:49] VITALS: BP 115/61; PULSE 65; RESP 16; TEMP 35.7; O2SAT 98
[2018-07-04 17:31] LABS: Bedside Glucose 102 mg/dL (70-110)
--- NOTE | 2018-07-04 17:36 | PCM.TXEXTCAR ---
- Diet 06/15/18 06:58 Diet: Cardiac/Low Cholesterol Dietary Modifications:: Fluid Restricted Diet Is pt able to select menu?: Yes Diet Comments: 2L FR - Routine Orders/Code Status Suppository Type: Dulcolax 10mg Suppository Frequency: Daily PRN Code Status: Full Code - Wound(s) Mid chest Wound Type: Surgical Incision Mid upper abd Wound Type: Surgical Incision Rt upper abd Wound Type: Surgical Incision lt calf Wound Type: Surgical Incision lt ankle Wound Type: Puncture - Therapies Weight Bearing: Weight bearing as tolerated Extremity Affected:: Bilateral Lower Physical Therapy: Eval and Treat - Problem/Diagnosis (1) Chest pain Status: Acute Current Visit: Yes (2) NSTEMI (non-ST elevated myocardial infarction) Status: Acute Current Visit: Yes (3) Coronary artery disease Status: Chronic Current Visit: Yes (4) Stroke Status: Chronic Current Visit: Yes (5) UTI (urinary tract infection) Status: Acute Current Visit: Yes (6) Anxiety Status: Chronic Current Visit: Yes (7) Overactive bladder Status: Chronic Current Visit: Yes (8) Diabetes Status: Chronic Current Visit: No (9) Hyperlipidemia Status: Chronic Current Visit: No (10) Hypertension Status: Chronic Current Visit: No - Allergies/Procedures Done in Hospital Allergies/Adverse Reactions: Allergies codeine Allergy (Verified 09/12/13 15:13) Swelling Penicillins Allergy (Verified 09/12/13 15:13) Swelling Sulfa (Sulfonamide Antibiotics) Allergy (Verified 09/12/13 15:13) Swelling diphenhydramine [From Benadryl] Adverse Reaction (Verified 06/14/18 22:25) Other metoclopramide [From Reglan] Adverse Reaction (Verified 06/14/18 22:25) Other - Type of Care/Length of Stay Estimated LOS: Convalescent Care Less Than 30 days Type of Care Needed: Intermediate Rehab Potential: Good Prognosis: Good - Additional Orders/Day of Discharge Day of Discharge: 07/05/18 - Dietary and Speech Recommendations Dietitian Recommendations/Changes: Rec diet change to 1500 francine Cardiac and d/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 Will continue ensure pudding or magic cup w/ meals for increased nutrition if consumed - Follow Up Care Please follow up with your Primary Care Physician in: 1 week. Please Follow Up With: Sundeep Crowe CLAIMS CONFIGURATION ANALYST Cardiac,Thoracic & Vasc When: [phone] Please Follow Up With: Caridology When: [phone] Please Follow Up With: Dr Daniel/Leona Morin [employer]CHO[employer]GE LEAD TEACHER When: [phone] Please Follow Up With: Dr Susan Díaz
[2018-07-04 17:47] VITALS: BP 115/61; PULSE 65
[2018-07-04] MEDS: Senna/Docusate Sodium 1 Tablet PO (17:47)
[2018-07-04 21:31] LABS: Bedside Glucose 114 mg/dL (70-110)
[2018-07-04 21:40] VITALS: PULSE 70; RESP 16
[2018-07-04] MEDS: Atorvastatin Calcium 40 MG Tablet PO (21:44)
[2018-07-05] MEDS: Menthol/Lanolin/Calamine/Znox 113 GM Tube 1 APPLIC TOPICAL (06:04)
[2018-07-05] MEDS: Enoxaparin 40 MG/0.4 ML Syringe SC (06:05)
[2018-07-05] MEDS: Nystatin Powder 15gm Bottle 1 APPLIC TOPICAL (06:05)
[2018-07-05 06:20] LABS: Bedside Glucose 122 mg/dL (70-110)
[2018-07-05] MEDS: Insulin Lispro 100 UNIT/ML INSULN.PEN SC ×2 (09:32→12:32)
[2018-07-05] MEDS: Cefdinir 300 MG Capsule PO (09:37)
[2018-07-05] MEDS: busPIRone 15 MG TABLET 7.5 MG PO (09:37)
[2018-07-05] MEDS: Ascorbic Acid 500 MG Tablet PO (09:37)
[2018-07-05] MEDS: Clopidogrel Bisulfate 75 MG Tablet PO (09:37)
[2018-07-05] MEDS: Aspirin E.C. 81 MG Tablet PO (09:37)
[2018-07-05] MEDS: guaiFENesin 600 MG Tablet PO (09:37)
[2018-07-05] MEDS: Oxybutynin 5 MG Tablet PO (09:39)
[2018-07-05 09:42] VITALS: BP 140/68; PULSE 63
[2018-07-05] MEDS: Metoprolol Tartrate 25 MG Tablet PO (09:42)
[2018-07-05 12:30] LABS: Bedside Glucose 156 mg/dL (70-110)
[2018-07-05 12:32] VITALS: BP 161/84; PULSE 61; RESP 20; TEMP 36.4; O2SAT 98
--- NOTE | 2018-07-05 14:56 | CASEMGMT ---
Social Work Telephone call to [facility], this social services specialist canceling referral at this time due to resident discharge to [facility]. Telephone call to [facility], referral canceled as well due to above reason. Did pass on to the [facility] all discharge planning that was already set up for resident. Proposed discharge date: 07/05/18 PLAN: Discharge to the [facility] - Intermediate level of care. ARTURO Jin
--- NOTE | 2018-07-05 15:02 | CASEMGMT ---
Insurance Notified insurance of resident discharge date on 07/05/[address] to [facility]. Auth#[id number] ARTURO Mccabe, RICKY
--- NOTE | 2018-07-11 09:51 | MDS.RN ---
Information for the mds was obtained from review of the clinical record, interview of resident, staff, and direct observation of resident's care.
== END 2018-07-05 12:50 | disposition intermediate care facility (04) | DRG 949 ==
PROVIDERS: Admitting Provider Family Medicine Geriatric Medicine; Visit Provider Family Medicine Geriatric Medicine
DX: Z48.812 Encounter for surgical aftercare following surgery on the circulatory system (principal); I21.4 Non-ST elevation (NSTEMI) myocardial infarction; N39.0 Urinary tract infection, site not specified; I25.10 Atherosclerotic heart disease of native coronary artery without angina pectoris; Z95.1 Presence of aortocoronary bypass graft; N32.81 Overactive bladder; E78.5 Hyperlipidemia, unspecified; E11.9 Type 2 diabetes mellitus without complications; F41.9 Anxiety disorder, unspecified; B35.4 Tinea corporis; I10 Essential (primary) hypertension; Z86.73 Personal history of transient ischemic attack (TIA), and cerebral infarction without residual deficits; Z87.891 Personal history of nicotine dependence
CPT/HCPCS: 36415; 74018; 80048; 81001; 82962; 85025; 87077; 87086; 87088; 87186; 93005; 94640; 94667; 97110; 97116; 97162; 97166; 97530; 97535; 97802; 99406

== ENCOUNTER → 2018-07-06 05:00 | Outpatient (REF) | payer MEDICARE, SELFPAY ==
[2018-06-14 22:18] VITALS: BMI 31.7
[2018-07-06 07:15] LABS: Hematocrit 36.6 % (37-47); Hemoglobin 11.1 g/dl (12.0-15.0); Mean Corp Hgb Conc 30.3 g/gl (32-36); Mean Corpuscular Hgb 28.3 pg (27.0-32.0); Mean Corpuscular Volume 93.4 fL (81-99); Mean Platelet Vol. 12.6 fl (6.2-12.0); Platelet Count 231 K/mm3 (150-450); RBC Distribution Width CV 14.3 % (11.6-14.6); RBC Distribution Width SD 48.5 fl (35.1-43.9); Red Blood Count 3.92 M/mm3 (4.2-5.4); White Blood Count 5.1 K/mm3 (4.4-11.0)
[2018-07-06 07:17] LABS: Scan Indicated on CBC? Y/N NO
[2018-07-06 07:28] LABS: Anion Gap 9 (5-15); BUN 13 mg/dL (7-18); BUN/Creat Ratio 15.6 RATIO (10-20); Calcium,Total 8.6 mg/dL (8.5-10.1); Chloride 111 mmol/L (98-107); Cholesterol 131 mg/dL (200); Creatinine, Serum 0.83 mg/dL (0.55-1.02); EST Glomerular Filtration Rate 72 mL/min (>60); Est Glom Filt Rate - Afr Amer 87 mL/min (>60); Glucose 123 mg/dL (74-106); High Density Lipoprotein 33 mg/dL; Potassium 3.6 mmol/L (3.5-5.1); Sodium Level 145 mmol/L (136-145); Triglycerides 92 mg/dL; Very Low Density Lipoprotein 18 mg/dL (5-40)
== END ==
LOC: OLS.AVED 05:00
PROVIDERS: Visit Provider Family Medicine
DX: N39.0 Urinary tract infection, site not specified (principal); I25.2 Old myocardial infarction; N32.81 Overactive bladder; F41.9 Anxiety disorder, unspecified; I25.10 Atherosclerotic heart disease of native coronary artery without angina pectoris; G93.40 Encephalopathy, unspecified; Z95.1 Presence of aortocoronary bypass graft; Z86.73 Personal history of transient ischemic attack (TIA), and cerebral infarction without residual deficits
CPT/HCPCS: 36415; 80048; 80061; 85027

== ENCOUNTER → 2018-07-16 14:30 | Outpatient (REF) | payer MEDICARE, SELFPAY ==
[2018-07-17 07:02] LABS: Red Blood Cells-Urine 0 SEEN /hpf (0-5)
[2018-07-17 08:11] LABS: Color, Urine Yellow (Yellow); Glucose, Dipstick Normal (Normal); Ketone-Dipstick 15 mg/dl (Negative); Leukocyte Esterase-Dipstick 25 /ul (Negative); Nitrite-Dipstick Negative (Negative); Occult Blood-Urine Negative /ul (Negative); Protein-Dipstick Negative (Negative); Specific Gravity, Urine 1.015 (1.002-1.030); Urine Bilirubin Dipstick Negative (Negative); Urine Clarity Cloudy (Clear); Urine Urobilinogen Normal (Normal)
[2018-07-17 08:38] LABS: Squamous Epithelial Cells - UA 0-5 SEEN /hpf (5-10); White Blood Cells 0-5 SEEN /hpf (0-5)
[2018-07-17 08:39] LABS: Amorphous Sediment 1+; Bacteria RARE /hpf (None Seen); Calcium Oxalate Crystals Ur RARE /hpf (<or=2+); Mucous, Urine RARE /hpf (<or=2+)
== END ==
LOC: OLS.AVED 14:30
PROVIDERS: Visit Provider Family Medicine
DX: N39.0 Urinary tract infection, site not specified (principal)
CPT/HCPCS: 81001; 87086; 87088

== ENCOUNTER → 2018-07-20 05:00 | Outpatient (REF) | payer MEDICARE, SELFPAY ==
[2018-07-20 08:19] LABS: Hemoglobin 13.1 g/dl (12.0-15.0); Mean Corp Hgb Conc 31.2 g/gl (32-36); Mean Corpuscular Hgb 28.4 pg (27.0-32.0); Mean Corpuscular Volume 90.9 fL (81-99); Mean Platelet Vol. 12.3 fl (6.2-12.0); Platelet Count 279 K/mm3 (150-450); RBC Distribution Width CV 13.9 % (11.6-14.6); RBC Distribution Width SD 45.6 fl (35.1-43.9); Red Blood Count 4.62 M/mm3 (4.2-5.4); White Blood Count 6.6 K/mm3 (4.4-11.0)
[2018-07-20 08:27] LABS: BUN 15 mg/dL (7-18); Creatinine, Serum 0.86 mg/dL (0.55-1.02); Glucose 142 mg/dL (74-106); Scan Indicated on CBC? Y/N NO
[2018-07-20 08:28] LABS: Anion Gap 7 (5-15); BUN/Creat Ratio 17.5 RATIO (10-20); Calcium,Total 8.9 mg/dL (8.5-10.1); Chloride 109 mmol/L (98-107); EST Glomerular Filtration Rate 70 mL/min (>60); Est Glom Filt Rate - Afr Amer 85 mL/min (>60); Potassium 3.5 mmol/L (3.5-5.1); Sodium Level 142 mmol/L (136-145)
== END ==
LOC: OLS.AVED 05:00
PROVIDERS: Visit Provider Family Medicine
DX: D64.9 Anemia, unspecified (principal); N39.0 Urinary tract infection, site not specified; E11.9 Type 2 diabetes mellitus without complications; I10 Essential (primary) hypertension; E78.5 Hyperlipidemia, unspecified; I21.4 Non-ST elevation (NSTEMI) myocardial infarction; N32.81 Overactive bladder; M62.81 Muscle weakness (generalized); Z86.73 Personal history of transient ischemic attack (TIA), and cerebral infarction without residual deficits
CPT/HCPCS: 36415; 80048; 85027

== ENCOUNTER 2019-03-17 18:20 | Emergency (ER) | payer MEDICARE, SELFPAY ==
[2019-03-17 18:22] VITALS: BP 155/73; PULSE 77; RESP 22; TEMP 37.1; O2SAT 98; BMI 30.6
--- NOTE | 2019-03-17 18:30 | ED.RN ---
RN CALLED FOR EKG, PULLED OLD EKGS FOR
--- NOTE | 2019-03-17 18:57 | EKG12_ITS ---
Test Reason : CP Blood Pressure : / mmHG Vent. Rate : 084 BPM Atrial Rate : 084 BPM P-R Int : 120 ms QRS Dur : 082 ms QT Int : 384 ms P-R-T Axes : 060 048 047 degrees QTc Int : 453 ms Sinus rhythm with Premature atrial complexes Otherwise normal ECG Confirmed by KATERINE BERMUDEZ ([id number]), rewrite editor MARKUS VILLAFANA ([id number]) on 03/20/2019 8:32:27 AM Referred By: MESERET Confirmed By:KATERINE BERMUDEZ
[2019-03-17 19:06] VITALS: O2SAT 96
--- NOTE | 2019-03-17 19:06 | RAD_ITS ---
STUDY: X-RAY CHEST REASON FOR EXAM: Female, 68 years old. Chest heaviness. Arm pain. Shoulder pain. TECHNIQUE: Single AP portable view of the chest. COMPARISON: September 12, 2013 report. No images available. FINDINGS: Median sternotomy. CABG. Cardiac silhouette unremarkable. Pulmonary vascularity unremarkable. Aorta unremarkable. No focal patchy airspace opacities. No pleural effusions. Upper abdomen unremarkable. Mild osteopenia. No pneumothorax. Mild degenerative changes of the shoulders. RAD/Chest 1 View (Portable) IMPRESSION: No acute cardiopulmonary findings Electronically Signed: Moy Gresham DO at 19:25 EDT Tel , Service support ,
[2019-03-17] MEDS: Aspirin 81 MG TAB.CHEW 324 MG PO (19:09)
[2019-03-17 19:25] LABS: Absolute Lymphocyte Count 2.24 X10^3/uL (0.83-4.51); Basophil# 0.05 X10^3/uL; Basophil% 0.6 % (0-1); Eosinophil# 0.12 X10^3/uL; Eosinophils% 1.5 % (0-5); Hematocrit 39.8 % (37-47); Hemoglobin 13.1 g/dL (12.0-15.0); Lymphocyte # 2.24 X10^3/ul (4.0); Mean Corp Hgb Conc 32.9 g/dL (32-36); Mean Corpuscular Hgb 29.8 pg (27.0-32.0); Mean Corpuscular Volume 90.7 fL (81-99); Mean Platelet Vol. 12.7 fl (6.2-12.0); Monocyte# 0.58 X10^3/uL; Monocyte% 7.2 % (0-10); NRBC Flagged by Analyzer 0 % (0-5); Neutrophil # 5.01 X10^3/uL (2.7-7.7); Neutrophil % 62.6 % (47-70); Platelet Count 230 K/mm3 (150-450); RBC Distribution Width CV 12.9 % (11.6-14.6); Red Blood Count 4.39 M/mm3 (4.2-5.4)
[2019-03-17 19:35] LABS: Anion Gap 8 (5-15); BUN 24 mg/dL (7-18); BUN/Creat Ratio 28.2 RATIO (10-20); Calcium,Total 9.4 mg/dL (8.5-10.1); Chloride 107 mmol/L (98-107); Creatinine, Serum 0.85 mg/dL (0.55-1.02); EST Glomerular Filtration Rate 70 mL/min (>60); Est Glom Filt Rate - Afr Amer 85 mL/min (>60); Estimated Creatinine Clearance 67.84 ml/min; Glucose 143 mg/dL (74-106); Potassium 3.8 mmol/L (3.5-5.1); Sodium Level 143 mmol/L (136-145)
[2019-03-17 20:54] VITALS: BP 151/104; PULSE 70; RESP 19; O2SAT 97
--- NOTE | 2019-03-17 21:33 | ED.VISSUMM ---
- ER Visit Summary Date of Service: 03/17/19 Chief Complaint: Right arm pain History of Present Illness: The patient is a 68 F who presents with right arm pain that began today. Patient describes her pain is sharp. Patient states this feels similar to the pain she had prior to her PR. Patient states nothing makes it better or worse. Patient states the pain starts in her right elbow and radiates to her neck. Patient denies any nausea or vomiting. Patient denies any diaphoresis. Patient denies any shortness of breath. Patient does admit to some lightheadedness. Patient denies any cough or fever. Patient denies any palpitations. Physical Examination: Vital signs are stable. Patient is afebrile. Patient is in no acute distress. Oral mucosa is pink and moist. Neck is supple. Trachea is midline. There is no JVD noted. Heart was regular rate and rhythm. Lungs are clear and equal bilaterally. Abdomen is soft. Bowel sounds are normal. There is no tenderness. There is no guarding noted. Skin is warm dry. Cranial nerves II through XII are intact. There are no focal motor or sensory deficits noted. Test Results: EKG showed normal sinus rhythm with a rate of 84. There is occasional PAC noted. There are no acute ST or T wave changes. This was unchanged compared to previous EKG dated 06/17/2018. Portable chest x-ray was obtained. There is no acute cardiopulmonary process. This was interpreted by the radiologist and reviewed by myself. CBC and basic metabolic profile were obtained and were essentially within normal limits. Troponin was normal. Emergency Department Course and Treatment: Patient felt better on reevaluation. Patient was advised that this is unlikely to be cardiac. Patient has a HEART score of 3. Patient was advised that this is low risk for acute cardiac event. She was instructed to follow-up with her primary care physician in 5 to 7 days. Patient understood and was agreeable with the plan. All questions were answered. Disposition: Discharge home Impression: Right arm pain This note was generated with [employer] dictation software. It may contain incorrect words, spelling, and punctuation that were not noted in review of the chart prior to signing ED Disposition - Plan for ED Patient: Disposition: Home or Assisted Living Diagnosis: Right arm pain Instructions: CHEST PAIN, Uncertain Cause Referrals: Susan Díaz [Primary Care Provider] - 3-5 Days
[2019-03-17 21:36] VITALS: BP 170/58; PULSE 67; RESP 18; O2SAT 97
== END 2019-03-17 21:51 | disposition home or self-care (01) ==
PROVIDERS: Emergency Provider Emergency Medicine; Family Provider Family Medicine; PCP Family Medicine
DX: M79.601 Pain in right arm (principal); M54.2 Cervicalgia; M54.9 Dorsalgia, unspecified; R42 Dizziness and giddiness; I49.1 Atrial premature depolarization; I25.2 Old myocardial infarction; E11.9 Type 2 diabetes mellitus without complications; I10 Essential (primary) hypertension; E78.00 Pure hypercholesterolemia, unspecified; I65.29 Occlusion and stenosis of unspecified carotid artery; Z86.73 Personal history of transient ischemic attack (TIA), and cerebral infarction without residual deficits; Z95.1 Presence of aortocoronary bypass graft; Z79.82 Long term (current) use of aspirin; Z79.4 Long term (current) use of insulin; Z79.899 Other long term (current) drug therapy; Z87.891 Personal history of nicotine dependence
CPT/HCPCS: 71045; 80048; 84484; 85025; 93005; 99284; A4216

== ENCOUNTER 2019-06-24 13:10 | Emergency (ER) | payer MEDICARE, SELFPAY ==
[2019-06-24 13:11] VITALS: BP 166/92; PULSE 83; RESP 16; TEMP 35.9; O2SAT 97
[2019-06-24 13:12] VITALS: BP 166/92; PULSE 89; RESP 16; TEMP 35.9; O2SAT 97; BMI 32.1
--- NOTE | 2019-06-24 13:22 | EKG12_ITS ---
Test Reason : Blood Pressure : / mmHG Vent. Rate : 075 BPM Atrial Rate : 075 BPM P-R Int : 122 ms QRS Dur : 082 ms QT Int : 406 ms P-R-T Axes : 054 033 026 degrees QTc Int : 453 ms Normal sinus rhythm Normal ECG Confirmed by MALI MCMANUS, TANK ([id number]), multimedia editor MARKUS VILLAFANA ([id number]) on 06/27/2019 1:32:48 PM Referred By: Trinity Baird Confirmed By:TANK SAMSON MD
[2019-06-24 13:54] VITALS: BMI 32.1
[2019-06-24 14:05] LABS: Bedside Glucose 169 mg/dL (70-110)
[2019-06-24 14:13] LABS: Absolute Lymphocyte Count 2.02 X10^3/uL (0.83-4.51); Absolute Neutrophil Count 4.3 X10^3/uL (2.0-7.7); Basophil# 0.05 X10^3/uL; Basophil% 0.7 % (0-1); Eosinophil# 0.12 X10^3/uL; Eosinophils% 1.7 % (0-5); Hemoglobin 13.5 g/dL (12.0-15.0); Lymphocyte # 2.02 X10^3/ul (4.0); Lymphocyte % 28.8 % (19-41); Mean Corp Hgb Conc 32.1 g/dL (32-36); Mean Corpuscular Hgb 28.8 pg (27.0-32.0); Mean Corpuscular Volume 89.7 fL (81-99); Mean Platelet Vol. 11.6 fl (6.2-12.0); Monocyte# 0.48 X10^3/uL; Monocyte% 6.8 % (0-10); NRBC Flagged by Analyzer 0 % (0-5); Neutrophil # 4.31 X10^3/uL (2.7-7.7); Neutrophil % 61.6 % (47-70); Platelet Count 229 K/mm3 (150-450); RBC Distribution Width CV 12.1 % (11.6-14.6); RBC Distribution Width SD 39.4 fl (35.1-43.9); Red Blood Count 4.68 M/mm3 (4.2-5.4)
[2019-06-24 14:21] LABS: Anion Gap 5 (5-15); BUN 14 mg/dL (7-18); BUN/Creat Ratio 16.2 RATIO (10-20); Calcium,Total 9.4 mg/dL (8.5-10.1); Chloride 107 mmol/L (98-107); Creatinine, Serum 0.87 mg/dL (0.55-1.02); EST Glomerular Filtration Rate 69 mL/min (>60); Est Glom Filt Rate - Afr Amer 83 mL/min (>60); Estimated Creatinine Clearance 68.58 ml/min; Glucose 172 mg/dL (74-106); Sodium Level 139 mmol/L (136-145)
[2019-06-24 15:17] VITALS: BP 160/72; PULSE 62; RESP 18; O2SAT 98
--- NOTE | 2019-06-24 15:54 | ED.DCSUM_ITS ---
History of Present Illness Chief Complaint: Neuro S/Sx Detail of Chief Complaint: Patient has numerous symptoms Informant: Patient Onset: Month(s) Context: Sudden Onset Timing: Continuous Quality: Pain Location: Right ear, jaw and neck, right chest and left extremities Current Severity: Mild Maximum Severity: Severe Worsened by: Nothing Relieved by: Nothing Associated Symptoms: No other symptoms Narrative: Is a 69-year-old woman who presents with right-sided ear, jaw and neck pain for 1 month. She is unaware of any makes it better or worse. She denies decreased hearing, ringing or ears or drainage. She denies dental pain. She denies difficulty opening or closing her mouth. She denies change in voice or difficulty swallowing. She states she has had right-sided chest pain for 2 years. She has had mammogr am and other studies with no etiology determined. Patient's had left-sided upper and lower extremity pain for approximately 2 years. She has had multiple TIAs, strokes. Nothing is changed. She denies exertional chest pain, dyspnea or dyspnea exertion. She denies leg pain, swelling discoloration. Prior similar symptoms: Yes Recent Illness/Hospitalization: No - Past Medical History (1) NSTEMI (non-ST elevated myocardial infarction) Status: Acute (2) Coronary artery disease Status: Chronic (3) Diabetes Status: Chronic (4) Hyperlipidemia Status: Chronic (5) Hypertension Status: Chronic (6) Overactive bladder Status: Chronic (7) Stroke Status: Chronic (8) Tobacco abuse Status: Chronic Past Medical History - Allergies and Home Meds Allergies/Adverse Reactions: Allergies codeine Allergy (Verified 09/12/13 15:13) Swelling Penicillins Allergy (Verified 09/12/13 15:13) Swelling Sulfa (Sulfonamide Antibiotics) Allergy (Verified 09/12/13 15:13) Swelling diphenhydramine [From Benadryl] Adverse Reaction (Verified 06/14/18 22:25) Other metoclopramide [From Reglan] Adverse Reaction (Verified 06/14/18 22:25) Other tylenol Adverse Reaction (Uncoded 03/17/19 18:22) Other Primary Care Physician: Trinity Baird MD [Primary Care Provider] - Prior records reviewed: Yes Surgical History: coronary bypass surgery - x 3., - - EGD Lives: Alone Smoking Status: Former smoker Alcohol: None Drugs: None - Family History Maternal Family History: Reports: No pertinent history Paternal Family History: Reports: No pertinent history Review of Systems General: Denies: Chills, Fever, Malaise, Sweats Eyes: Denies: Visual changes - bilaterally, Diplopia ENT: Reports: Right ear pain, - - Please read HPI Cardiovascular: Reports: Chest pain - Chest pain right side as previously described. Denies: Palpitations Respiratory: Denies: Dyspnea, Cough, Dyspnea on exertion Gastrointestinal: Denies: Abdominal pain, Nausea, Vomiting, Diarrhea, Melena, Hematochezia Genitourinary: Denies: Dysuria, Hematuria, Frequency Musculoskeletal: Reports: Neck pain. Denies: Myalgias, Arthralgias, Back pain, Swelling, Extremity Pain Skin: Denies: Rash, Wounds Neurological: Reports: Parasthesia - Left upper extremity. Denies: Headache, Weakness, Numbness Endocrine: Denies: Polyuria, Polydipsia Allergy: Denies: Uticaria, Swelling of the mouth Physical Exam Vital Signs/Narrative: Vital Signs Temp Pulse Resp BP Pulse Ox 06/24/19 15:17 62 18 160/72 H 98 06/24/19 13:12 96.7 F L 89 16 166/92 H 97 06/24/19 13:11 96.7 F L 83 16 166/92 H 97 Inital Vital Signs reviewed: Yes General: Well nourished, Well developed, No Acute Distress Head: Normocephalic, Atraumatic Eyes: Perrl, EOMI. Negative for: Pale conjunctiva, Scleral icterus ENT: Moist mucous membranes, No rhinorrhea, - - There is clicking and pain right TMJ with opening closing of her mouth. This reproduces her ear pain. She has evidence of dental pathology. There is no acute acute cavity noted. There is evidence of gingivitis and periodontal disease. Neck: Supple, Nontender, No lymphadenopathy, No JVD Cardiovascular: Regular rate, Regular rhythm, No murmurs, Normal S1, Normal S2 Respiratory: No distress, CTA bilaterally, Chest nontender Abdomen: Soft, Nontender, Nondistended, Normal bowel sounds Back: Nontender, Normal Inspection Extremities: Nontender, No edema Skin: Normal color, No rash. Negative for: Cyanosis, Diaphoresis Neurological: Alert, Oriented x3, Cranial nerves II-XII grossly intact, Normal Strength, Normal Sensation, Normal Gait Psychological: - - Affect affect is flat. Patient is slightly animated. Diagnostic/Tx/Re-eval - Medical Decision Making Light of her past medical history work-up was undertaken. Her work-up was unremarkable. She was informed that the jaw pain is secondary to TMJ syndrome and she was referred to Dr. Marquez. Examination of the upper extremity reveals no neurovascular findings. Axillary, median, radial and ulnar function intact. Radial pulses palpable and symmetric. Biceps, brachialis and triceps reflex are 1-2+ and symmetric. There are no les ions or rash noted. There is no evidence of trauma. ED Disposition - Plan for ED Patient: Disposition: Home or Assisted Living Diagnosis: TMJ syndrome, Chronic chest pain, Left upper limb pain Referrals: Trinity Baird MD [Primary Care Provider] - John Marquez DDS [STAFF PHYSICIAN] - 5-7 Days Additional Instructions: It is my opinion that your jaw pain is secondary to dysfunction of your TMJ joint. You were referred to Dr. Marquez. Recommend taking Tylenol for your pain.
--- NOTE | 2019-06-24 16:06 | ED.VISSUMM ---
- ER Visit Summary Date of Service: 06/24/19 Chief Complaint: [] History of Present Illness: The patient is a 69 F [] Physical Examination: [] Test Results: [] Emergency Department Course and Treatment: [] Treatment Plan: [] Disposition: [] Impression: [] This note was generated with [employer] dictation software. It may contain incorrect words, spelling, and punctuation that were not noted in review of the chart prior to signing ED Disposition - Plan for ED Patient: Disposition: Home or Assisted Living Diagnosis: TMJ syndrome, Chronic chest pain, Left upper limb pain Instructions: Tmj Syndrome Referrals: Trinity Baird MD [Primary Care Provider] - John Marquez DDS [STAFF PHYSICIAN] - 5-7 Days Additional Instructions: It is my opinion that your jaw pain is secondary to dysfunction of your TMJ joint. You were referred to Dr. Marquez. Recommend taking Tylenol for your pain.
[2019-06-24 16:13] VITALS: BP 160/76; PULSE 61; RESP 16; O2SAT 98
== END 2019-06-24 16:18 | disposition home or self-care (01) ==
PROVIDERS: Emergency Provider Emergency Medicine; PCP Internal Medicine; Referring Provider Internal Medicine
DX: M26.609 Unspecified temporomandibular joint disorder, unspecified side (principal); G89.29 Other chronic pain; R07.9 Chest pain, unspecified; M79.602 Pain in left arm; I25.10 Atherosclerotic heart disease of native coronary artery without angina pectoris; I10 Essential (primary) hypertension; E11.9 Type 2 diabetes mellitus without complications; E78.5 Hyperlipidemia, unspecified; I25.2 Old myocardial infarction; Z86.73 Personal history of transient ischemic attack (TIA), and cerebral infarction without residual deficits; Z87.891 Personal history of nicotine dependence; Z88.0 Allergy status to penicillin; Z88.2 Allergy status to sulfonamides; Z88.6 Allergy status to analgesic agent; Z88.8 Allergy status to other drugs, medicaments and biological substances
CPT/HCPCS: 80048; 82962; 85025; 93005; 99283; A4216

== ENCOUNTER → 2019-07-10 16:41 | Outpatient (CLI) | payer MEDICARE, SELFPAY ==
[2019-07-10 15:43] VITALS: BMI 32.5
--- NOTE | 2019-07-10 16:55 | RAD_ITS ---
STUDY: X-RAY CHEST REASON FOR EXAM: Female, 69 years old. STERNAL CHEST PAIN TECHNIQUE: PA and lateral views of the chest. COMPARISON: 03/17/2019 FINDINGS: The lungs are clear and expanded. There is no demonstrated pleural abnormality. Normal size heart. Sternal wires and mediastinal surgical clips compatible with prior CABG. Normal mediastinum and jelani. Normal visualized pulmonary arteries. There is atherosclerotic calcification of the aortic arch with tortuosity. There are diffuse degenerative changes of the visualized thoracic spine. Normal visualized ribs, clavicles, and shoulders. There is no demonstrated abnormality of the visualized soft tissue structures of the upper abdomen. RAD/Chest PA and Lateral IMPRESSION: Stable, nonacute x-ray examination of the chest. Electronically Signed: Ravi Schwarz MD ([place]) at 13:00 EST , Service support ,
== END ==
PROVIDERS: PCP Internal Medicine; Referring Provider Internal Medicine Cardiovascular Disease; Visit Provider Internal Medicine Cardiovascular Disease
DX: R07.89 Other chest pain (principal)
CPT/HCPCS: 71046

== ENCOUNTER 2019-07-23 19:07 | Emergency (ER) | payer MEDICARE, SELFPAY ==
[2019-07-10 15:43] VITALS: BMI 32.5
[2019-07-23 19:25] VITALS: BP 165/98; PULSE 94; RESP 18; TEMP 36.4; O2SAT 98; BMI 32.0
[2019-07-23 20:44] VITALS: RESP 16
--- NOTE | 2019-07-23 20:46 | CT_ITS ---
HISTORY: FLANK PAIN THAT RADIATES TO BACK, BLOATING. Hx of diabetes, HTN, CVA,CABG, COPD. ADDITIONAL HISTORY: None provided. TECHNIQUE: CT images were obtained of the abdomen and pelvis with 100 mL Isovue-300 IV contrast. Enteric contrast was given. A radiation dose optimization technique was used for this scan. Number of images including paperwork: [id number] COMPARISON: 09/12/2013 FINDINGS: LOWER THORAX: No consolidation or pleural effusion. Contrast in the distal esophagus consistent with reflux. Small sliding hiatal hernia. Mild basilar atelectasis. LIVER: No concerning focal lesion. GALLBLADDER: Minimal increased density in the dependent all bladder, possibly tiny gallstones. BILE DUCTS: No significant biliary dilatation. SPLEEN: Unremarkable. PANCREAS: Unremarkable. ADRENAL GLANDS: Unremarkable. KIDNEYS/URETERS: Bilateral renal cysts. BOWEL: No bowel obstruction. No significant bowel wall thickening. No localized inflammation. APPENDIX: Normal. Colonic diverticulosis. FREE FLUID: No significant free fluid. FREE AIR: None. LYMPH NODES: No pathologic appearing adenopathy. PERITONEUM, RETROPERITONEUM AND MESENTERY: Otherwise unremarkable. VASCULATURE: Atherosclerotic calcification. PELVIS: Tiny focus of air in the bladder, likely iatrogenic. Unremarkable uterus and adnexa. ABDOMINAL WALL: Unremarkable. OSSEOUS AND SOFT TISSUE STRUCTURES: No acute skeletal findings. Degenerative changes. CT/Abdomen/Pelvis WITH Contrast IMPRESSION: No acute abdominopelvic abnormality. Colonic diverticulosis. Additional findings above. Individualized dose optimization techniques were used for this CT. at 2240 Reported and signed by: Magdalena Shoemaker MD Electronically Signed: Magdalena Shoemaker MD at 22:40 EST Tel , Service support ,
[2019-07-23] MEDS: HYDROmorphone 1 MG/ML Syringe IV (21:20)
[2019-07-23] MEDS: Ondansetron 4 MG/2 ML Vial IV (21:20)
[2019-07-23 21:21] LABS: Absolute Lymphocyte Count 1.64 X10^3/uL (0.83-4.51); Absolute Neutrophil Count 9.2 X10^3/uL (2.0-7.7); Basophil# 0.05 X10^3/uL; Basophil% 0.4 % (0-1); Eosinophil# 0.03 X10^3/uL; Eosinophils% 0.3 % (0-5); Hematocrit 46.8 % (37-47); Lymphocyte # 1.64 X10^3/ul (4.0); Lymphocyte % 14.5 % (19-41); Mean Corp Hgb Conc 32.1 g/dL (32-36); Mean Corpuscular Hgb 28.6 pg (27.0-32.0); Mean Corpuscular Volume 89.1 fL (81-99); Mean Platelet Vol. 11.6 fl (6.2-12.0); Monocyte# 0.38 X10^3/uL; Monocyte% 3.4 % (0-10); NRBC Flagged by Analyzer 0 % (0-5); Neutrophil # 9.16 X10^3/uL (2.7-7.7); Neutrophil % 81.1 % (47-70); Platelet Count 271 K/mm3 (150-450); RBC Distribution Width SD 39.2 fl (35.1-43.9); Red Blood Count 5.25 M/mm3 (4.2-5.4); White Blood Count 11.3 K/mm3 (4.4-11.0)
[2019-07-23] MEDS: 0.9% Normal Saline 1,000 ML 125 ML IV (21:21)
--- NOTE | 2019-07-23 21:33 | ED.RN ---
PER PT FAMILY, PT HAS NOT BEEN TAKING HER MEDICATION AT HOME PROPERLY, OR TAKING CARE OF HERSELF PROPERLY. JORJE, GRAIN UNLOADER MACHINE INFORMED. REPORTS SHE WILL SPEAK WITH FAMILY.
[2019-07-23 21:34] LABS: ALB/GLOB Ratio 0.9 RATIO (0.9-2.4); AST(SGOT) 11 U/L (15-37); Alanine Aminotransfer ALT/SGPT 27 U/L (13-56); Albumin, Serum 4.1 g/dL (3.2-5.0); Alkaline Phosphatase 88 U/L (45-117); Anion Gap 7 (5-15); BUN 21 mg/dL (7-18); BUN/Creat Ratio 19.8 RATIO (10-20); Calcium,Total 10.1 mg/dL (8.5-10.1); Chloride 101 mmol/L (98-107); Creatinine, Serum 1.06 mg/dL (0.55-1.02); EST Glomerular Filtration Rate 55 mL/min (>60); Est Glom Filt Rate - Afr Amer 66 mL/min (>60); Estimated Creatinine Clearance 56.09 ml/min; Globulin 4.5 g/dL (2.2-4.2); Glucose 216 mg/dL (74-106); Lipase 191 U/L (73-393); Potassium 4.3 mmol/L (3.5-5.1); Protein, Total 8.6 g/dL (6.4-8.2); Sodium Level 137 mmol/L (136-145)
--- NOTE | 2019-07-23 21:39 | CM.ED ---
Social Work Consult: Resources Informant: Nursing Staff Met with patient granddaughter, Chastity. Chastity expressing concerns of patient being able to care for self. Chastity stating to have been staying with patient and plans to continue staying with patient but I need to work. Chastity stating that patient is able to say the right things to the doctors and medical team. Chastity stating that patient does not make safe choices. This aids social worker educating Chastity that if there are concerns of patient safety within the home to contact adult protective services. Chastity stating that patient has left the stove on before but Chastity was able to catch this. Chastity stating that patient primary care doctor has been updated on concerns of short-term memory loss for patient. This aids social worker provide Chastity with community resources of help within the home ([facility]). Chastity stating plan to call [facility] to set up assessment/intake. Active support and listening provided. Paresh Sanchez MSW, RICKY
[2019-07-23 21:53] LABS: Lactic Acid 1.4 mmol/L (0.4-1.9)
[2019-07-23 22:27] VITALS: BP 144/70; PULSE 80; RESP 16; TEMP 37; O2SAT 94
[2019-07-23 23:39] LABS: Bacteria 0 SEEN /hpf (None Seen); Mucous, Urine 0 SEEN /hpf (<or=2+)
[2019-07-23 23:43] VITALS: BP 167/88; PULSE 86; RESP 14; O2SAT 93
[2019-07-23 23:45] LABS: Color, Urine Yellow (Yellow); Glucose, Dipstick 100 mg/dl (Normal); Ketone-Dipstick 15 mg/dl (Negative); Leukocyte Esterase-Dipstick 25 /ul (Negative); Nitrite-Dipstick Negative (Negative); Occult Blood-Urine 10 /ul (Negative); Protein-Dipstick 15 mg/dl (Negative); Urine Bilirubin Dipstick Negative (Negative); Urine Clarity Clear (Clear); Urine Urobilinogen Normal (Normal); Urine pH 6.5 (5.0 - 8.0)
[2019-07-23 23:52] LABS: Red Blood Cells-Urine 0-5 SEEN /hpf (0-5); Squamous Epithelial Cells - UA 5-10 SEEN /hpf (5-10); White Blood Cells 0-5 SEEN /hpf (0-5)
--- NOTE | 2019-07-24 00:02 | ED.VISSUMM ---
- ER Visit Summary Date of Service: 07/24/19 Chief Complaint: [Abdominal pain ] History of Present Illness: The patient is a 69 F [presents to the emergency department complaint of abdominal pain that started 6 months ago. She has had pain off and on lasting hours at a time. She describes nausea with it but no vomiting. She denies any diarrhea. She denies any blood in her stool or black tarry stool. Food does not affect it. She is had no fevers. She denies urinary symptoms. Patient denies any chest pain or shortness of breath. She denies recent travel or surgery. No history of PE or DVT. Patient does have prior history of coronary artery disease, hypertension, high cholesterol, and pancreatitis. Patient describes the pain as upper abdomen wrapping around the room right upper abdomen and radiating to her back.] Physical Examination: [HEENT-PERRLA, EOMI. Cranial nerves II through XII grossly intact. TMs clear. Mucous membranes moist. No adenopathy. Cardiovascular-regular rate and rhythm without murmur or ectopy Lungs-clear to auscultation, chest wall stable without crepitus or subcu emphysema Abdomen-normoactive bowel sounds, soft. Patient has tenderness to palpation over the epigastric region and right upper quadrant. Negative Gannon sign. There is no rebound, rigidity, peritoneal signs. No significant CVA tenderness on exam. Extremities-intact ?4, normal range of motion, normal pulses, atraumatic] Test Results: [CBC with differential white count 11.3, hemoglobin 15, hematocrit 47, placed 271. Chemistries unremarkable. BUN was 21 and creatinine 1.06. LFTs were normal. Lipase was normal at 91. Urinalysis normal. Lactate was normal 1.4. CT scan of the abdomen pelvis with IV and p.o. contrast showed essentially nothing acute.] Emergency Department Course and Treatment: [Patient initially was medicated with morphine and Zofran. On repeat exam she continues to complain of pain but mostly over the right lower ribs at this time. A lot of her abdominal discomfort has resolved.] Treatment Plan: [Patient advised to follow-up with her primary care physician within next 3 to 5 days. Patient given a prescription for [place] for pain. At this point etiology of her pain is unclear. I do not feel her exam and work-up consistent with cholecystitis. She did have suspicion of one gallstone within the gallbladder but no other signs of cholecystitis on CT.] Disposition: [Discharged home in stable condition] Impression: [Abdominal pain-etiology uncertain] This note was generated with [employer] dictation software. It may contain incorrect words, spelling, and punctuation that were not noted in review of the chart prior to signing ED Disposition - Plan for ED Patient: Referrals: Trinity Baird MD [Primary Care Provider] -
--- NOTE | 2019-07-24 00:07 | DCINST.ED_ITS ---
ED Disposition - Plan for ED Patient: Instructions: ABDOMINAL PAIN, Unknown Cause, (Female) Prescriptions: Hydrocodone Bitart/Apap 5-325 [[place] 5MG-325MG] 1 tab PO Q4H PRN PRN 2 Days #14 tab PRN Reason: Pain Prescription Printed Referrals: Trinity Baird MD [Primary Care Provider] - 1-2 Days if not improving
== END 2019-07-24 00:31 | disposition home or self-care (01) ==
PROVIDERS: Emergency Provider Emergency Medicine; PCP Internal Medicine
DX: R10.9 Unspecified abdominal pain (principal); R11.0 Nausea; I25.10 Atherosclerotic heart disease of native coronary artery without angina pectoris; I10 Essential (primary) hypertension; E78.00 Pure hypercholesterolemia, unspecified; Z87.19 Personal history of other diseases of the digestive system; Z86.73 Personal history of transient ischemic attack (TIA), and cerebral infarction without residual deficits; Z95.1 Presence of aortocoronary bypass graft; Z79.4 Long term (current) use of insulin; Z79.82 Long term (current) use of aspirin; Z79.02 Long term (current) use of antithrombotics/antiplatelets; Z79.899 Other long term (current) drug therapy
CPT/HCPCS: 74177; 80053; 81001; 83605; 83690; 85025; 96361; 96374; 96375; 99285; J7030; Q9967; A4216; J2405

== ENCOUNTER 2019-07-24 16:09 | Emergency (ER) | payer MEDICARE, SELFPAY ==
[2019-07-23 19:25] VITALS: BMI 32.0
[2019-07-24 16:25] VITALS: BP 158/97; PULSE 86; RESP 17; TEMP 37.1; O2SAT 100; BMI 32.3
--- NOTE | 2019-07-24 17:18 | US_ITS ---
STUDY: ABDOMINAL ULTRASOUND REASON FOR EXAM: Female, 69 years old. ABD PAIN- RADIATES TO THE BACK TECHNIQUE: Transabdominal ultrasound was performed with real-time and static huddleston scale imaging. TECHNICAL QUALITY: Adequate. COMPARISON: None. FINDINGS: Aorta: Visualized portions of abdominal aorta are normal in diameter. IVC: Visualized portions appear patent. Pancreas: Visualized portions of pancreas are unremarkable. Liver: Measures 15.1 cm. Liver shows increased echogenicity. No liver masses identified. Gallbladder: Multiple stones versus polyps. Negative sonographic Gannon''s sign. Common bile duct: Measures 5 mm. No intraductal stones identified. Right kidney: Measures 10.5 cm in length. Normal contour. 2.3cm upper pole cyst with heterogeneous internal echoes. No masses, stones, or hydronephrosis identified. Renal cortical thickness appears normal. Additional findings: None of significance. US/Gallbladder IMPRESSION: Hepatic steatosis. Layering material within the gallbladder most likely represents small stones versus polyp. There is no evidence for acute cholecystitis. Heterogeneous appearance of a right renal cyst is grossly similar to prior examination of 2013 and most likely represents a benign process. Electronically Signed: Andrew Moulton, at 19:05 EST Tel , Service support ,
[2019-07-24 17:20] VITALS: BP 162/82; PULSE 82; RESP 16; O2SAT 97
[2019-07-24 17:40] LABS: Mucous, Urine 0 SEEN /hpf (<or=2+); Red Blood Cells-Urine 0 SEEN /hpf (0-5); White Blood Cells 0 SEEN /hpf (0-5)
[2019-07-24 17:54] LABS: Color, Urine Yellow (Yellow); Glucose, Dipstick 100 mg/dl (Normal); Ketone-Dipstick 50 mg/dl (Negative); Leukocyte Esterase-Dipstick Negative /ul (Negative); Nitrite-Dipstick Negative (Negative); Occult Blood-Urine Negative /ul (Negative); Protein-Dipstick Negative (Negative); Specific Gravity, Urine 1.015 (1.002-1.030); Urine Bilirubin Dipstick Negative (Negative); Urine Clarity Sl. Cloudy (Clear); Urine Urobilinogen Normal (Normal); Urine pH 6.5 (5.0 - 8.0)
[2019-07-24] MEDS: 0.9% Normal Saline 1,000 ML 1000 ML IV (17:54)
[2019-07-24] MEDS: Ondansetron 4 MG/2 ML Vial IV (17:54)
[2019-07-24] MEDS: Morphine 4 MG/ML Syringe IV ×2 (17:55→19:56)
[2019-07-24 18:03] LABS: Absolute Lymphocyte Count 1.92 X10^3/uL (0.83-4.51); Absolute Neutrophil Count 8.4 X10^3/uL (2.0-7.7); Basophil# 0.04 X10^3/uL; Basophil% 0.4 % (0-1); Eosinophil# 0.02 X10^3/uL; Eosinophils% 0.2 % (0-5); Hemoglobin 14.2 g/dL (12.0-15.0); Lymphocyte # 1.92 X10^3/ul (4.0); Lymphocyte % 17.7 % (19-41); Mean Corp Hgb Conc 31.6 g/dL (32-36); Mean Corpuscular Hgb 28.3 pg (27.0-32.0); Mean Corpuscular Volume 89.6 fL (81-99); Mean Platelet Vol. 11.9 fl (6.2-12.0); Monocyte# 0.51 X10^3/uL; Monocyte% 4.7 % (0-10); NRBC Flagged by Analyzer 0 % (0-5); Neutrophil # 8.35 X10^3/uL (2.7-7.7); Neutrophil % 76.7 % (47-70); Platelet Count 288 K/mm3 (150-450); RBC Distribution Width CV 12.2 % (11.6-14.6); RBC Distribution Width SD 39.8 fl (35.1-43.9); Red Blood Count 5.02 M/mm3 (4.2-5.4); White Blood Count 10.9 K/mm3 (4.4-11.0)
[2019-07-24 18:15] LABS: ALB/GLOB Ratio 0.8 RATIO (0.9-2.4); AST(SGOT) 28 U/L (15-37); Alanine Aminotransfer ALT/SGPT 30 U/L (13-56); Albumin, Serum 3.9 g/dL (3.2-5.0); Alkaline Phosphatase 84 U/L (45-117); Anion Gap 4 (5-15); BUN 19 mg/dL (7-18); BUN/Creat Ratio 16.7 RATIO (10-20); Calcium,Total 9.7 mg/dL (8.5-10.1); Chloride 102 mmol/L (98-107); Creatinine, Serum 1.14 mg/dL (0.55-1.02); EST Glomerular Filtration Rate 50 mL/min (>60); Est Glom Filt Rate - Afr Amer 61 mL/min (>60); Estimated Creatinine Clearance 52.61 ml/min; Globulin 4.6 g/dL (2.2-4.2); Glucose 189 mg/dL (74-106); Lipase 164 U/L (73-393); Protein, Total 8.5 g/dL (6.4-8.2); Sodium Level 135 mmol/L (136-145)
[2019-07-24 18:21] LABS: Bacteria 2+ /hpf (None Seen); Squamous Epithelial Cells - UA 0-5 SEEN /hpf (5-10)
--- NOTE | 2019-07-24 19:59 | ED.DCSUM_ITS ---
- ER Visit Summary Date of Service: 07/24/19 Chief Complaint: Back pain History of Present Illness: The patient is a 69 F who presents with back pain that is been getting worse over the past 4 days. Patient was seen here recently and had a CT scan and lab work done which was all normal. Patient states the pain is in her low back on the right. Patient states the pain radiates to her right upper quadrant. Patient describes the pain is sharp and stabbing. Patient states nothing makes it better or worse. Patient denies any paresthesias or weakness. Patient denies any bowel or bladder changes. Patient denies any saddle anesthesia. Physical Examination: Vital signs are stable. Patient is afebrile. Patient is in no acute distress. Oral mucosa is pink and moist. Neck is supple. Trachea is midline. There is no JVD. Heart was regular rate and rhythm. Lungs are clear and equal bilaterally. Abdomen is soft. Bowel sounds are normal. There is right upper quadrant tenderness. There is no rebound or guarding noted. Gannon sign was negative. Musculoskeletal exam reveals tenderness over the right lumbar paraspinal muscles. There is no midline tenderness. There is no bony crepitance or step-off. Strength is 5/5 bilateral knee upper and lower extremities. There are no sensory deficits noted. Test Results: CBC and comprehensive metabolic profile were obtained and were essentially within normal limits. Lipase was normal. Urinalysis was normal. Right upper quadrant ultrasound was obtained. There is some layering material in within the gallbladder which could be stones versus polyp. There is no acute cholecystitis. These were interpreted by the radiologist. Emergency Department Course and Treatment: Patient was given IV fluids. Patient was given morphine and Zofran. Patient was still having some pain in her back on reevaluation. Patient was given a repeat dose of morphine. Patient was instructed to continue her medications as previously prescribed. Patient was instructed to follow-up with her primary care physician for further evaluation in 3 to 5 days. Patient understood and was agreeable with the plan. All questions were answered. Disposition: Discharge home Impression: Right upper quadrant abdominal pain This note was generated with exoro systemation software. It may contain incorrect words, spelling, and punctuation that were not noted in review of the chart prior to signing ED Disposition - Plan for ED Patient: Disposition: Home or Assisted Living Diagnosis: Right upper quadrant abdominal pain, Low back pain Instructions: BACK PAIN (Acute or Chronic), ABDOMINAL PAIN, Unknown Cause, (Female) Referrals: Trinity Baird MD [Primary Care Provider] - 3-5 Days
[2019-07-24 20:02] VITALS: BP 158/80; PULSE 81; RESP 16; O2SAT 96
[2019-07-24 20:12] VITALS: BP 158/80; PULSE 82; RESP 16; O2SAT 97
== END 2019-07-24 20:22 | disposition home or self-care (01) ==
PROVIDERS: Emergency Provider Emergency Medicine; PCP Internal Medicine
DX: R10.11 Right upper quadrant pain (principal); M54.5 Low back pain; R11.0 Nausea; R53.1 Weakness; Z95.1 Presence of aortocoronary bypass graft
CPT/HCPCS: 76705; 80053; 81001; 83690; 85025; 96361; 96374; 96375; 96376; 99284; J7030; A4216; J2405

== ENCOUNTER → 2019-08-06 12:19 | Outpatient (CLI) | payer MEDICARE, SELFPAY ==
[2019-07-24 16:25] VITALS: BMI 32.3
--- NOTE | 2019-08-06 12:45 | SP.MBSS_ITS ---
PRIMARY / SECONDARY DIAGNOSIS: GERD/LPRD (K21.9), Dysphagia (R13.10) REFERRING PHYSICIAN: Jodee Mathew NP CURRENT DIET: regular textures/thin liquids DENTITION: present w/ visible repair MENTAL STATUS: WFL for participation in MBS RESPIRATORY STATUS: oxygenating on room air, visible dyspnea w/ exertion PREVIOUS MODIFIED BARIUM SWALLOW STUDY: n/a REASON FOR REFERRAL: Further assessment of swallow function under fluoroscopy patient reports pain w/ swallowing ?as if I an getting punched in the throat? and sensation of things ?getting stuck?/?not going down? reported to occur both with and without PO intake. Denies any exacerbating factors or specific types of PO intake that it occurs more frequently with. MEDICAL HISTORY - obtained from review of medical record: anxiety, atherosclerosis of the coronary artery, essential HTN, hx CVA, hx non ST- elevation [place], HLD, overactive bladder, pancreatitis, tobacco abuse, hx CABG STUDY FINDINGS: Patient participated in a Modified Barium Swallow (MBS) study on 08/06/2019. This study was recorded in the lateral view and images were sent to PACs for storage. The following consistencies were presented to this patient for analysis of oropharyngeal swallow function: thin liquid, pudding and regular texture Deysi Doone Shortbread Cookie. Results of the MBS are as follows: PENETRATION / ASPIRATION SCALE (CAO): 1 = does not enter airway 2 = enters airway/above vocal folds/ejected 3 = enters airway/above vocal folds/not ejected 4 = enters airway/contacts vocal folds/ejected 5 = enters airway/contacts vocal folds/not ejected 6 = enters airway/below vocal folds/ejected 7 = enters airway/below vocal folds/not ejected despite effort 8 = enters airway/below vocal folds/no effort PENETRATION / ASPIRATION SCALE (SCORE): 1. Thin liquid via 5mL teaspoon: 1 2. Thin liquid via 5mL teaspoon: 1 3. Thin liquid via single sip from cup: 1 4. Thin liquid via sequential swallows from cup: 2 5. Puddin 6. Cookie: 1 7. Thin liquid via sequential swallows from straw: 2 8. Thin liquid via single swallow from straw: 1 IMPRESSION ORAL PHASE CHARACTERIZED BY: * LABIAL SEAL: no labial escape * TONGUE CONTROL DURING BOLUS MANIPULATION: cohesive bolus between tongue to palatal seal * BOLUS PREPARATION / MASTICATION: timely and efficient chewing and mashing * BOLUS TRANSPORT / LINGUAL MOTION: slowed tongue motion * ORAL RESIDUE: residue collection on oral structures - posterior lingual surface, hard palate, soft palate PHARYNGEAL PHASE CHARACTERIZED BY: * INITIATION OF PHARYNGEAL SWALLOW: bolus head in valleculae at first hyoid excursion * SOFT PALATE ELEVATION: no bolus between soft palate and pharyngeal wall * LARYNGEAL ELEVATION: partial superior movement of thyroid cartilage/partial approximation of arytenoids cartilage to epiglottic petiole * ANTERIOR HYOID EXCURSION: partial anterior movement * EPIGLOTTIC MOVEMENT: complete epiglottic inversion * LARYNGEAL VESTIBULE CLOSURE AT HEIGHT OF SWALLOW: complete laryngeal vestibule closure with no air/contrast in laryngeal vestibule * PHARYNGEAL STRIPPING WAVE: pharyngeal stripping wave present / complete * PHARYNGOESOPHAGEAL SEGMENT OPENING: complete distension and complete duration with no obstruction of flow * TONGUE BASE RETRACTION: narrow column of contrast between tongue base and posterior pharyngeal wall * PHARYNGEAL RESIDUE: collection of residue within or on pharyngeal structures valleculae ESOPHAGEAL PHASE CHARACTERIZED BY: * ESOPHAGEAL BOLUS CLEARANCE IN THE UPRIGHT POSITION: esophageal coating EFFECTS OF TREATMENT STRATEGIES ATTEMPTED: * Reduced rate of intake = effective INTERPRETATION OF RESULTS Patient presents with mild oropharyngeal dysphagia (R13.12) characterized by slowed lingual motion for A-P bolus transit w/ reduced tongue base to posterior pharyngeal wall contact, resulting in residue retention post deglutition along the posterior lingual surface/base of tongue. Pharyngeal swallow onset timing grossly WNL. Reduced hyolaryngeal excursion resulted in vallecular residue retention post deglutition w/ pudding and regular textures. The patient independently initiated a second swallow to effectively clear a majority of the residue w/ a second swallow. The patient was unable to maintain complete laryngeal vestibule closure across sequential swallows by both cup and straw, allowing for transient laryngeal vestibule penetration to occur w/ complete ejection. Transient laryngeal vestibule penetration was eliminated w/ reduction in bolus volume/sequential swallows. Sufficient airway protection achieved across all trials assessed this date. RECOMMENDATIONS * DIET TEXTURE RECOMMENDATIONS: regular textures/thin liquids * COMPENSATORY STRATEGIES RECOMMENDED: avoid large volume/sequential swallows of liquids, seated upright at 90 degrees during PO intake, remain upright for 30- 60 minutes post meal (GERD precaution) * NEED FOR SKILLED SPEECH-LANGUAGE INTERVENTION TARGETING DYSPHAGIA: Patient able to comprehend and express recommended intake precautions detailed above with sufficient detail to suggest high likelihood of compliance. Suspect mild oropharyngeal dysphagia evidenced under fluoroscopy is resultant of prior CVA. No further skilled speech-language services warranted at this time targeting dysphagia. * REFERRALS: Would consider referral for further assessment of esophageal swallow function. Would additionally consider further workup via ENT to determine if there is structural damage or irritation due to known history of reflux that may be contributing to the pain and globus sensation described by the patient this date. * ADDITIONAL COMMENTS/RECOMMENDATIONS: Results and recommendations were discussed with the Patient immediately following MBS completion, with the Patient verbalizing understanding and agreement with all recommendations and education provided. IMAGE COUNT: [id number]
== END ==
LOC: RAD 12:20
PROVIDERS: PCP Internal Medicine; Referring Provider Internal Medicine; Visit Provider Internal Medicine
DX: K21.9 Gastro-esophageal reflux disease without esophagitis (principal); R13.10 Dysphagia, unspecified
CPT/HCPCS: 76000; 92611

== ENCOUNTER → 2020-03-02 13:50 | Outpatient (CLI) | payer MEDICARE, SELFPAY ==
[2019-11-05 09:51] VITALS: BMI 32.3
--- NOTE | 2020-03-02 13:55 | US_ITS ---
HISTORY: RECURRING UTIS ADDITIONAL HISTORY: None provided. COMPARISON: CT 07/23/2019, 09/12/2013 TECHNIQUE: Ultrasound of the kidneys and bladder performed with grayscale and color Doppler imaging. FINDINGS: RIGHT KIDNEY: 10.5 x 4.3 x 4.4 cm LEFT KIDNEY: 10.6 x 5.1 x 4.3 cm ECHOGENICITY: Medullary pyramids appear echogenic. HYDRONEPHROSIS: None. CALCULI: None. RENAL LESIONS: Right renal cystic lesion in the superior to mid kidney measuring 2.2 x 2.0 x 2.5 cm with some internal septations but without flow demonstrated in the lesion. Lesion has been present since 2013. Multiple additional simple appearing bilateral renal cysts. No follow-up warranted for these renal lesions. BLADDER: Unremarkable. URETERAL JETS: Visualized US/Kidney and Bladder IMPRESSION: No acute renal abnormality is sonographically apparent. 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 at 0719 Reported and signed by: Magdalena Shoemaker MD Electronically Signed: Magdalena Shoemaker MD at 7:19 EDT Tel , Service support ,
== END ==
PROVIDERS: PCP Internal Medicine; Referring Provider Urology; Visit Provider Urology
DX: N39.0 Urinary tract infection, site not specified (principal)
CPT/HCPCS: 76770

== ENCOUNTER 2021-02-13 13:17 | Emergency (ER) | payer MEDICARE, MEDICAID, SELFPAY ==
[2021-02-13] VITALS (10 sets, daily range): BP systolic 142–175; BP diastolic 49–109; PULSE 96–118; RESP 16–24; TEMP 36.5–36.9; O2SAT 97–99; BMI 30.6
--- NOTE | 2021-02-13 14:05 | RAD_ITS ---
STUDY: X-RAY CHEST REASON FOR EXAM: Female, 70 years old. chest pain TECHNIQUE: Frontal portable view of the chest COMPARISON: 10 July 2019. FINDINGS: There are sternotomy wires and bypass. The lungs are clear and expanded. There is no demonstrated pleural abnormality. Normal size heart. Normal mediastinum and jelani. Normal visualized pulmonary arteries. Normal visualized aortic arch and descending thoracic aorta. Normal visualized thoracic spine. Normal visualized ribs, clavicles, and shoulders. There is no demonstrated abnormality of the visualized soft tissue structures of the upper abdomen. RAD/Chest 1 View (Portable) IMPRESSION: No acute chest disease. Coronary bypass. Electronically Signed: Last Hernandez MD at 15:38 EDT Tel , Service support ,
--- NOTE | 2021-02-13 14:05 | EKG12_ITS ---
Test Reason : CP Blood Pressure : / mmHG Vent. Rate : 110 BPM Atrial Rate : 110 BPM P-R Int : 116 ms QRS Dur : 084 ms QT Int : 328 ms P-R-T Axes : 076 039 057 degrees QTc Int : 443 ms Sinus tachycardia Otherwise normal ECG Confirmed by BELINDA MCMANUS, NATALIA ([id number]), supervising film or videotape editor AZ KIM ([id number]) on 02/15/2021 1:29:05 PM Referred By: TIM Confirmed By:NATALIA TREVINO MD
--- NOTE | 2021-02-13 14:07 | ED.VIS.CHEST ---
HPI History of Present Illness Chief Complaint: Chest Pain Informant: patient Onset/Context/Timing Onset: Weeks (2) Activity at onset: unknown Timing: Intermittent and Lasts (hrs) Quality: Positive for Aching and Sharp Location: Right Parasternal (w/ radiation straight through to back) Current Severity: Moderate Maximum Severity: Moderate Worsened By: Movement of Torso, Palpation, Breathing and Coughing Relieved By: Nothing Associated Symptoms: Positive for Dyspnea and Cough; Negative for Vomiting, Diaphoresis, Fever, Lightheadedness and Palpitations Narrative Narrative: Patient has had symptoms for 2 weeks: Cough, sinus drainage, body aches, intermittent right-sided chest pain with upper back pain opposite it, and some shortness of breath. She has not gotten the Covid vaccine, she states she wants to but she has not been out of the house in a long time because of her stroke and no one has taken her anywhere. She is interested in getting it today if she does not have Covid. She has not been tested during this illness yet nor does she had a that she knows of. She denies any fevers, chills, loss of smell or taste. No recent leg pain or swelling, no history of DVT or PE. Her residual symptoms from her stroke are mostly trouble with equilibrium and walking. She is on no anticoagulants, she does take Plavix. [facility] Medical History Anxiety Atherosclerosis of coronary artery of [place] heart without angina pectoris Diabetes Essential (primary) hypertension History of CVA (cerebrovascular accident) (09/2014) History of non-ST elevation myocardial infarction (NSTEMI) (06/2018) Hyperlipidemia Overactive bladder Pancreatitis Sternum pain Tobacco abuse Home Medications Lactobacillus acidophilus 1 ea PO DAILY 06/14/18 [History Last Taken 07/24/19] aspirin 81 mg PO DAILY@0800 06/14/18 [History Last Taken 07/24/19] cholecalciferol (vitamin D3) 3,000 unit PO DAILY@0800 06/14/18 [History Last Taken 07/24/19] oxybutynin chloride 5 mg PO DAILY 06/14/18 [History Last Taken 07/24/19] clopidogrel 75 mg PO DAILY #30 tab 06/19/18 [Rx Last Taken 07/24/19] metoprolol tartrate 25 mg tablet 12.5 mg PO BID tab 07/10/19 [History Last Taken 07/24/19] omeprazole 20 mg capsule,delayed release 40 mg PO DAILY cap 07/10/19 [History Last Taken 07/24/19] insulin glargine 20 units SC QHS 07/23/19 [History Last Taken 07/24/19] insulin lispro 10 unit SC TIDCM 07/23/19 [History Last Taken 07/24/19] buspirone 15 mg tablet 7.5 mg PO BID tab 07/10/20 [History Last Taken Unknown] losartan 50 mg tablet 50 mg PO DAILY tab 07/10/20 [History Last Taken Unknown] rosuvastatin 5 mg tablet 5 mg PO DAILY tab 07/10/20 [History Last Taken Unknown] doxycycline monohydrate 100 mg PO BID #20 capsule 02/13/21 [Rx Last Taken Unknown] Allergy/AdvReac Type Severity Reaction Status Date / Time codeine Allergy Swelling Verified 02/13/21 13:19 Penicillins Allergy Swelling Verified 02/13/21 13:19 Sulfa (Sulfonamide Allergy Swelling Verified 02/13/21 13:19 Antibiotics) diphenhydramine AdvReac Other Verified 02/13/21 13:19 [From Benadryl] metoclopramide [From Reglan] AdvReac Other Verified 02/13/21 13:19 tylenol AdvReac Other Uncoded 02/13/21 13:19 Surgical History H/O coronary artery bypass surgery (05/30/18) History of left heart catheterization (05/28/18) Social History Smoking Status: Former smoker ROS ROS ED Constitutional Constitutional ED: Reports body ache(s) and malaise; Denies chills or fever(s) Eyes Eyes: Denies change in vision or diplopia ENT ENT ED: Reports as per HPI, nasal congestion and rhinorrhea; Denies ear discharge, loss taste/smell or sore throat Cardiovascular Cardiovascular: Reports as per HPI, chest pain and dyspnea; Denies palpitations Respiratory/Chest Respiratory/Chest: Reports cough and dyspnea Gastrointestinal Gastrointestinal: Reports abdominal pain and other Details: Intermittent brief pains on both sides of her mid abdomen ; Denies diarrhea, nausea or vomiting Genitourinary Genitourinary ED: Denies dysuria or hematuria Musculoskeletal Musculoskeletal: Reports back pain; Denies neck pain Integumentary Denies abscess or rash Neurologic Neurologic: Denies headache(s), paresthesias or weakness Psychiatric Psychiatric: Denies anxiety or suicidal thoughts EXAM Physical Exam Const Vital Signs: 02/13/21 13:19 02/13/21 13:23 02/13/21 14:29 Temperature 98.4 F 98.4 F 97.8 F Temperature Source Oral Oral Temporal Pulse Rate 113 H 114 H 114 H Respiratory Rate 24 H 20 H 21 H Respiratory Effort Normal Blood Pressure 145/85 H 145/85 H 153/89 H Blood Pressure Mean 105 105 110 Pulse Ox 98 98 97 Oxygen Delivery Method Room Air Room Air Room Air 02/13/21 15:10 02/13/21 16:13 02/13/21 17:49 Temperature 98.3 F 98.2 F Temperature Source Temporal Temporal Pulse Rate 111 H 118 H 117 H Respiratory Rate 16 16 22 H Respiratory Effort Blood Pressure 153/49 H 166/69 H Blood Pressure Mean 83 101 Pulse Ox 99 98 98 Oxygen Delivery Method Room Air Room Air Room Air 02/13/21 18:25 02/13/21 19:30 02/13/21 22:06 Temperature 97.7 F L Temperature Source Temporal Pulse Rate 113 H 114 H 96 Respiratory Rate 22 H 17 21 H Respiratory Effort Blood Pressure 175/90 H 142/109 H Blood Pressure Mean 118 120 Pulse Ox 98 98 99 Oxygen Delivery Method Room Air Room Air Room Air Positive well nourished, well developed and obese General Appearance ED: well developed and NAD Nutritional Appearance: obese HEENT Reports moist mucous membranes normocephalic and atraumatic Eyes PERRL and EOMs intact bilaterally Neck full ROM and supple Chest Wall Chest Narrative: Tender to palpation right mid chest, reproducing the patient's discomfort. No crepitance or palpable rib fracture. Resp normal respiratory effort and clear to auscultation bilaterally Cardio regular rate, regular rhythm and no murmurs Rate: tachycardic GI non-tender and non-distended Auscultation: normoactive bowel sounds Palpation: soft Back/Spine no CVA tenderness General Back: other FROM Extremity normal to inspection and no calf tenderness General Extremety ED: Negative for edema, pulses abnormal or tenderness General Extremity: Negative for edema or pulses abnormal Neuro oriented x3, CN's II-XII intact bilaterally and no sensory deficits noted Sensorium / Orientation: awake and alert Motor Exam: strength 5/5 throughout Skin no rashes or lesions noted and no wounds Heart Score History: Slightly/Non-Suspicious ECG: Normal Age: >/= 65 years Risk Factors: >/= 3 Risk Factors or History of CAD Troponin: </= Normal Limit Score: 4 MDM MDM MDM Narrative Medical decision making narrative: Septic work-up was obtained given the patient's tachycardia and symptoms of respiratory illness, and the Covid was obtained. I attempted to obtain a rapid Covid as well as a PCR send out, but the lab would not do the send out because I was doing the rapid, which was negative. Labs show a leukocytosis making Covid less likely anyhow, and her chest x-ray was unremarkable as was her EKG and troponin. She was given IV fluids and was feeling better but still had a resting tachycardia so CT angiography of the chest was obtained to evaluate for occult pneumonia, pulmonary embolus, etc. Nothing acute was found as below. To go over the patient give us urine specimen, she eventually did and it appears grossly infected. She states she also requires antibiotics for sinus infection which I am happy to provide her but she does have several allergies to antibiotics, she states doxycycline has helped her sinus infections in the past, I gave her a dose of IV Rocephin here and offered admission but she wants to go home. Urine and blood are cultured. Lab Data Attestation: I reviewed the patient's lab results. Labs: Laboratory Results - last 24 hr 02/13/21 02/13/21 02/13/21 13:35 13:35 14:25 WBC 15.1 H RBC 4.28 Hgb 12.1 Hct 38.9 MCV 90.9 MCH 28.3 MCHC 31.1 L RDW Std Deviation 44.1 H RDW Coeff of Tushar 13.3 Plt Count 408 MPV 12.4 H Immature Gran % (Auto) 0.500 Neut % (Auto) 86.3 H Lymph % (Auto) 6.4 L Kemper % (Auto) 6.6 Eos % (Auto) 0.0 Baso % (Auto) 0.2 Absolute Neuts (auto) 13.0 H Absolute Lymphs (auto) 0.97 Nucleated RBC % 0 Sodium 131 L Potassium 4.3 Chloride 99 Carbon Dioxide 17.0 L Anion Gap 15 BUN 15 Creatinine 1.00 Estim Creat Clear Calc 55.96 Est GFR (MDRD) Af Amer 71 Est GFR (MDRD) Non-Af 58 L BUN/Creatinine Ratio 15.1 Glucose 332 H Lactic Acid 1.9 Calcium 9.8 Troponin I High Sens 10 Urine Color Urine Clarity Urine pH Ur Specific Camilla Urine Protein Urine Glucose (UA) Urine Ketones Urine Occult Blood Urine Nitrite Urine Bilirubin Urine Urobilinogen Ur Leukocyte Esterase Urine RBC Urine WBC Ur Squamous Epith Cells Urine Bacteria Urine Mucus COVID-19 (DARLIN) 02/13/21 02/13/21 02/13/21 14:39 14:39 21:30 WBC RBC Hgb Hct MCV MCH MCHC RDW Std Deviation RDW Coeff of Tushar Plt Count MPV Immature Gran % (Auto) Neut % (Auto) Lymph % (Auto) Kemper % (Auto) Eos % (Auto) Baso % (Auto) Absolute Neuts (auto) Absolute Lymphs (auto) Nucleated RBC % Sodium Potassium Chloride Carbon Dioxide Anion Gap BUN Creatinine Estim Creat Clear Calc Est GFR (MDRD) Af Amer Est GFR (MDRD) Non-Af BUN/Creatinine Ratio Glucose Lactic Acid Calcium Troponin I High Sens Urine Color Yellow Urine Clarity Sl. Cloudy Urine pH 6.0 Ur Specific Camilla 1.020 Urine Protein 30 H Urine Glucose (UA) 1000 H Urine Ketones 150 A* Urine Occult Blood 250 H Urine Nitrite Negative Urine Bilirubin Negative Urine Urobilinogen Normal Ur Leukocyte Esterase 500 H Urine RBC 0-5 SEEN Urine WBC 50-100 SEEN Ur Squamous Epith Cells 0-5 SEEN Urine Bacteria 1+ Urine Mucus 0 SEEN COVID-19 (DARLIN) Cancelled Negative Radiography Diagnostic Testing: Radiology Impression Chest X-Ray 02/13/21 14:05 IMPRESSION: No acute chest disease. Coronary bypass. Electronically Signed: Last Hernandez MD at 15:38 EDT Tel , Service support , Chest CTA 02/13/21 20:29 IMPRESSION: No pulmonary embolism. Mild left lower lobe atelectasis. Lungs are otherwise clear. Suspected solid, exophytic mass stemming from the superior pole left kidney measures roughly 4 cm in diameter. Neoplasm is suspected. Multiphase renal CT or MRI should be considered for further evaluation. Sliding hiatal hernia. Probable hepatic steatosis. Electronically Signed: Kennedy Solis DO at 22:32 EDT Tel , Service support , EKG Initial EKG: Attestation: I personally reviewed and interpreted this EKG as follows: Interpretation: No Acute Injury Pattern and Sinus Tachycardia Discharge Plan Triage Chief Complaint: Chest Pain ED Provider: Jonathon Solorio Dx/Rx/DC Orders Clinical Impression: Urinary tract infection, Upper respiratory tract infection, Intermittent chest pain Instructions: ED Chest Pain, Uncertain Cause, ED CYSTITIS Female Adult Prescriptions: New doxycycline monohydrate 100 MG capsule 100 mg PO BID Qty: 20 RF: 0 No Action metoprolol tartrate 25 mg tablet 12.5 mg PO BID RF: 0 omeprazole 20 mg capsule,delayed release(DR/EC) 40 mg PO DAILY RF: 0 rosuvastatin 5 mg tablet 5 mg PO DAILY RF: 0 buspirone 15 mg tablet 7.5 mg PO BID RF: 0 losartan 50 mg tablet 50 mg PO DAILY RF: 0 aspirin 81 MG tablet 81 mg PO DAILY@0800 RF: 0 Lactobacillus acidophilus 1 EACH capsule 1 ea PO DAILY RF: 0 oxybutynin chloride 5 MG tablet 5 mg PO DAILY RF: 0 cholecalciferol (vitamin D3) 1,000 UNIT tablet,chewable 3,000 unit PO DAILY@0800 RF: 0 clopidogrel 75 MG tablet 75 mg PO DAILY Qty: 30 RF: 0 insulin lispro 100 UNIT/ML insulin pen 10 unit SC TIDCM RF: 0 insulin glargine 100 UNITS/ML insulin pen 20 units SC QHS RF: 0 Primary Care Provider: Trinity Baird Referrals: Trinity Baird MD [Primary Care Provider] - 2 Days (call for appt) Disposition Disposition: Home, Self Care
[2021-02-13 14:22] LABS: Absolute Lymphocyte Count 0.97 X10^3/uL (0.83-4.51); Basophil# 0.03 X10^3/uL; Basophil% 0.2 % (0-1); Hematocrit 38.9 % (37-47); Hemoglobin 12.1 g/dL (12.0-15.0); Lymphocyte # 0.97 X10^3/ul (0.83-4.51); Lymphocyte % 6.4 % (19-41); Mean Corp Hgb Conc 31.1 g/dL (32-36); Mean Corpuscular Hgb 28.3 pg (27.0-32.0); Mean Corpuscular Volume 90.9 fL (81-99); Mean Platelet Vol. 12.4 fl (6.2-12.0); Monocyte% 6.6 % (0-10); NRBC Flagged by Analyzer 0 % (0-5); Neutrophil # 13.02 X10^3/uL (2.7-7.7); Neutrophil % 86.3 % (47-70); Platelet Count 408 K/mm3 (150-450); RBC Distribution Width CV 13.3 % (11.6-14.6); RBC Distribution Width SD 44.1 fl (35.1-43.9); Red Blood Count 4.28 M/mm3 (4.2-5.4); White Blood Count 15.1 K/mm3 (4.4-11.0)
[2021-02-13 14:32] LABS: Anion Gap 15 (5-15); BUN 15 mg/dL (7-18); BUN/Creat Ratio 15.1 RATIO (10-20); Calcium,Total 9.8 mg/dL (8.5-10.1); Chloride 99 mmol/L (98-107); EST Glomerular Filtration Rate 58 mL/min (>60); Est Glom Filt Rate - Afr Amer 71 mL/min (>60); Estimated Creatinine Clearance 55.96 ml/min; Glucose 332 mg/dL (74-106); Potassium 4.3 mmol/L (3.5-5.1); Sodium Level 131 mmol/L (136-145); Troponin-I HS 10 pg/mL (3.0-54.0)
[2021-02-13] MEDS: 0.9% Normal Saline 1,000 ML 150 ML IV (14:41)
[2021-02-13 15:01] LABS: Lactic Acid 1.9 mmol/L (0.4-1.9)
--- NOTE | 2021-02-13 20:29 | CT_ITS ---
STUDY: CTA CHEST REASON FOR EXAM: Female, 70 years old. cp/sob RADIATION DOSAGE (If Supplied By Facility): CTDIvol = ( 7.36 ) mGy, DLP = ( 230.36 ) mGycm TECHNIQUE: The examination was performed with the intravenous administration of IV 100mL Isovue-370. Post-processing of the angiographic images was performed, with multiplanar reformation and 3D reconstruction. Individualized dose optimization techniques were used for this CT. COMPARISON: CT abdomen and pelvis 07/23/2019 FINDINGS: 312 HOUNSFIELD units contrast density in the pulmonary trunk and no significant motion artifact; quality diagnostic exam. Normal enhancement of the main pulmonary artery and right and left pulmonary arteries. Normal enhancement of the bilateral peripheral pulmonary arteries. There is no demonstrated pulmonary embolism. There is no evidence of right heart strain. Normal thoracic aorta and visualized great vessels. There is no demonstrated aortic dissection. Normal heart and pericardium. Normal mediastinum. Normal hilar regions. Sternotomy wires are present. Normal visualized trachea and bronchi. The lungs are well expanded. There is some atelectasis in the left lower lobe with thin linear opacity extending from the left lower lobe medial pleural surface. Lungs otherwise clear. Normal pleura. Normal chest wall structures. No axillary lymphadenopathy. Normal osseous structures. There is a solid-appearing, exophytic mass extending from the superior pole left kidney suspicious for neoplasm. Hypodensity in the periphery of segment 4 of the liver likely represents focal fatty sparing. There is a sliding hiatal hernia. CT/CTA Chest W/WO Contrast IMPRESSION: No pulmonary embolism. Mild left lower lobe atelectasis. Lungs are otherwise clear. Suspected solid, exophytic mass stemming from the superior pole left kidney measures roughly 4 cm in diameter. Neoplasm is suspected. Multiphase renal CT or MRI should be considered for further evaluation. Sliding hiatal hernia. Probable hepatic steatosis. Electronically Signed: Kennedy Solis DO at 22:32 EDT Tel , Service support ,
[2021-02-13 21:35] LABS: Mucous, Urine 0 SEEN /hpf (<or=2+)
[2021-02-13 21:57] LABS: Color, Urine Yellow (Yellow); Glucose, Dipstick 1000 mg/dl (Normal); Leukocyte Esterase-Dipstick 500 /ul (Negative); Nitrite-Dipstick Negative (Negative); Occult Blood-Urine 250 /ul (Negative); Protein-Dipstick 30 mg/dl (Negative); Urine Bilirubin Dipstick Negative (Negative); Urine Clarity Sl. Cloudy (Clear); Urine Urobilinogen Normal (Normal)
[2021-02-13 22:20] LABS: Ketone-Dipstick 150 mg/dl (Negative)
[2021-02-13 22:22] LABS: Bacteria 1+ /hpf (None Seen); Red Blood Cells-Urine 0-5 SEEN /hpf (0-5); Squamous Epithelial Cells - UA 0-5 SEEN /hpf (5-10); White Blood Cells 50-100 SEEN /hpf (0-5)
[2021-02-13] MEDS: Ceftriaxone 1 GM/50 ML BAG IV (23:41)
[2021-02-14 00:24] VITALS: O2SAT 98
== END 2021-02-14 00:26 | disposition home or self-care (01) ==
PROVIDERS: Emergency Provider Emergency Medicine; PCP Internal Medicine
DX: J06.9 Acute upper respiratory infection, unspecified (principal); N39.0 Urinary tract infection, site not specified; R07.9 Chest pain, unspecified; K44.9 Diaphragmatic hernia without obstruction or gangrene; E66.9 Obesity, unspecified; E11.9 Type 2 diabetes mellitus without complications; E78.5 Hyperlipidemia, unspecified; I10 Essential (primary) hypertension; I25.10 Atherosclerotic heart disease of native coronary artery without angina pectoris; F41.9 Anxiety disorder, unspecified; I25.2 Old myocardial infarction; Z79.4 Long term (current) use of insulin; Z79.82 Long term (current) use of aspirin; Z86.73 Personal history of transient ischemic attack (TIA), and cerebral infarction without residual deficits; Z87.891 Personal history of nicotine dependence; Z95.1 Presence of aortocoronary bypass graft
CPT/HCPCS: 36415; 71045; 71275; 80048; 81001; 83605; 84484; 85025; 87040; 87077; 87086; 87088; 87186; 87426; 87635; 93005; 96361; 96365; 99285; J7030; Q9967; U0005; A4216; U0003

== ENCOUNTER 2021-02-16 23:49 | Inpatient (IN) | payer MEDICARE, MEDICAID, SELFPAY ==
[2021-02-16 23:51] VITALS: BP 99/67; PULSE 127; RESP 16; TEMP 36.6; O2SAT 100; BMI 34.3
[2021-02-17] VITALS (10 sets, daily range): BP systolic 122–164; BP diastolic 63–90; PULSE 74–114; RESP 14–18; TEMP 36.2–36.9; O2SAT 96–99; BMI 31.1
[2021-02-17 00:27] LABS: Absolute Lymphocyte Count 1.73 X10^3/uL (0.83-4.51); Basophil# 0.05 X10^3/uL; Basophil% 0.6 % (0-1); Eosinophil# 0.05 X10^3/uL; Eosinophils% 0.6 % (0-5); Hemoglobin 12.7 g/dL (12.0-15.0); Lymphocyte # 1.73 X10^3/ul (0.83-4.51); Lymphocyte % 20.7 % (19-41); Mean Corp Hgb Conc 31.8 g/dL (32-36); Mean Corpuscular Hgb 27.9 pg (27.0-32.0); Mean Corpuscular Volume 87.9 fL (81-99); Mean Platelet Vol. 11.7 fl (6.2-12.0); Monocyte# 0.56 X10^3/uL; Monocyte% 6.7 % (0-10); NRBC Flagged by Analyzer 0 % (0-5); Neutrophil # 5.95 X10^3/uL (2.7-7.7); Platelet Count 468 K/mm3 (150-450); RBC Distribution Width CV 13.5 % (11.6-14.6); RBC Distribution Width SD 43.3 fl (35.1-43.9); Red Blood Count 4.55 M/mm3 (4.2-5.4); White Blood Count 8.4 K/mm3 (4.4-11.0)
[2021-02-17 00:31] LABS: Bedside Glucose 192 mg/dL (70-110)
[2021-02-17] MEDS: Ondansetron 4 MG/2 ML Vial IV ×3 (00:46→12:33)
[2021-02-17] MEDS: 0.9% Normal Saline 1,000 ML 999 ML IV (00:46)
[2021-02-17 00:49] LABS: Anion Gap 10 (5-15); BUN 22 mg/dL (7-18); BUN/Creat Ratio 17.5 RATIO (10-20); Calcium,Total 10.8 mg/dL (8.5-10.1); Chloride 99 mmol/L (98-107); Creatinine, Serum 1.26 mg/dL (0.55-1.02); EST Glomerular Filtration Rate 44 mL/min (>60); Est Glom Filt Rate - Afr Amer 54 mL/min (>60); Estimated Creatinine Clearance 49.85 ml/min; Glucose 218 mg/dL (74-106); Potassium 3.2 mmol/L (3.5-5.1); Sodium Level 137 mmol/L (136-145)
--- NOTE | 2021-02-17 02:52 | CT_ITS ---
STUDY: CT ABDOMEN AND PELVIS WITH CONTRAST REASON FOR EXAM: Female, 70 years old. epigastric pain. No additional history provided. History of prior reports of diabetes, hypertension, CVA, CABG, COPD RADIATION DOSAGE (If Supplied By Facility): CTDIvol = ( 13.72 ) mGy, DLP = ( 1170.84 ) mGycm TECHNIQUE: Transaxial 3.75 mm enhanced and delayed abdominal images were obtained from the dome of the diaphragm to the symphysis pubis without oral contrast. IV 100mL Isovue-370 was administered. Sagittal and coronal images were reconstructed. Individualized dose optimization techniques were used for this CT. COMPARISON: CT abdomen and pelvis 07/23/2019. 09/12/2013. CT chest 02/13/2021. FINDINGS: Hyperinflation off lung bases, possible minimal scarring posterior medial left lower lobe. Prior sternotomy. There is low attenuation along the falciform ligament most consistent with focal fatty sparing. Layering sludge in the gallbladder possible tiny calculi. No gallbladder inflammation detected. Normal intra and extrahepatic biliary ductal system. Normal spleen. Normal pancreas. Normal bilateral adrenal glands. Both kidneys demonstrate multiple cystic lesions. Left kidney: The left posterior upper pole contains a lobular low-attenuation lesion with a central linear low attenuation extending from the cortex exophytically arising of the previously seen cortical cyst measuring 4.7 x 3.3 x 4.7 cm ( AP x width x height ). There appears to be minimal enhancement along the posterior contour. Density measures 25-30 HOUNSFIELD units. There is mild perirenal fat stranding. The left inferior renal pole demonstrated 2 additional abnormal lesions one of which is exophytic with fat component measuring 1.8 x 1.6 x 2.5 cm ( AP x width x height ).. The anterior lower renal cortex demonstrate a slightly indistinct low-attenuation measuring 2.1 x 2.1 x 2 cm with faint peripheral enhancement. HOUNSFIELD unit is 29. There are additional cysts in the posterior interpolar -- lower pole cortex measuring 1.5 x 1.4 x 1.6 cm and water density. A smaller subcentimeter cortical lesion is too small to characterize. Right kidney: There is a large heterogeneous possibly septated or multiple smaller cystic lesions in the posterior upper pole of the right kidney measuring approximately 3 x 2.1 x 1.7 cm with mild enhancement image 34 series 2. This measures 42 HOUNSFIELD units. This has a appearance of multiple smaller adjacent cystic lesions. The interpolar kidney demonstrates 2 low attenuation lesions, slightly indistinct and greater than water density. These measure 1 cm each on image 38 series 2. Similar appearance of a subcentimeter low attenuation in the inferior pole image 44 series 2. There is enhancement of the bilateral renal veins and inferior vena cava without thrombosis. There is a small hiatal hernia. Normal small intestine. There are predominantly sigmoid colonic diverticula consistent with diverticulosis. There is stable wall thickening of the sigmoid colon without pericolonic fat inflammation. There is non-visualization of the appendix. There is diffuse atherosclerotic calcification of the abdominal aorta, without a demonstrated aneurysm. Normal inferior vena cava. Normal retroperitoneum. Normal urinary bladder. There is atrophy of the uterus. Normal abdominal wall. There are diffuse degenerative changes of the visualized spine. No destructive osseous lesions detected. CT/Abdomen/Pelvis W IV Cont ONLY IMPRESSION: Bilateral kidneys with multiple cystic lesions, the majority appear complex or indeterminate, the appearance hasn''t changed since the previous examination. There is a posterior cystic upper pole lesion in the left kidney arising of a formerly seen cortical cyst which is indeterminate, requires further imaging detail with MRI, consultation with urology and tissue sampling. No signs of metastatic disease. Cyst with wall thickening, no active inflammation detected. Subclinical acute on chronic inflammation may be present, this however is unchanged since previous exams. Arteriosclerosis, degenerative changes, gallbladder sludge felt to be nonacute findings. Electronically Signed: Samantha Quintana MD at 4:12 EDT , Service support ,
--- NOTE | 2021-02-17 02:54 | EX.ED.DYSGE1 ---
HPI History of Present Illness Chief Complaint: Nausea/Vomiting Informant: patient Onset/Context/Timing Onset: Weeks (2) Current Severity: Moderate Maximum Severity: Moderate Associated Symptoms Associated Symptoms: Chest pain, nausea, vomiting, epigastric pain, malaise, sob, back pain Narrative Narrative: Yesterday for the same/similar symptoms by myself; 2 weeks of cough, sinus drainage, body aches, intermittent chest pain that is mostly right-sided and discomfort in her upper back on the right, some shortness of breath. She thinks she has a sinus infection. She did not have the Covid vaccine, she tested negative yesterday and although I did not realize it at the time the lab actually did send off PCR for Covid which turned out negative. No fevers, chills, loss of taste or smell. She returns because she has been vomiting a lot, and unable to keep anything down, along with epigastric pain that she did not tell me about yesterday. She is a very poor historian. She feels poorly. [facility] Medical History Anxiety Atherosclerosis of coronary artery of [place] heart without angina pectoris Diabetes Essential (primary) hypertension History of CVA (cerebrovascular accident) (09/2014) History of non-ST elevation myocardial infarction (NSTEMI) (06/2018) Hyperlipidemia Overactive bladder Pancreatitis Sternum pain Tobacco abuse Home Medications Lactobacillus acidophilus 1 ea PO DAILY 06/14/18 [History Last Taken 07/24/19] aspirin 81 mg PO DAILY@0800 06/14/18 [History Last Taken 07/24/19] cholecalciferol (vitamin D3) 3,000 unit PO DAILY@0800 06/14/18 [History Last Taken 07/24/19] oxybutynin chloride 5 mg PO DAILY 06/14/18 [History Last Taken 07/24/19] clopidogrel 75 mg PO DAILY #30 tab 06/19/18 [Rx Last Taken 07/24/19] metoprolol tartrate 25 mg tablet 12.5 mg PO BID tab 07/10/19 [History Last Taken 07/24/19] omeprazole 20 mg capsule,delayed release 40 mg PO DAILY cap 07/10/19 [History Last Taken 07/24/19] insulin glargine 30 units SC QHS 07/23/19 [History Last Taken 07/24/19] insulin lispro 10 unit SC TIDCM 07/23/19 [History Last Taken 07/24/19] buspirone 15 mg tablet 7.5 mg PO BID tab 07/10/20 [History Last Taken Unknown] losartan 50 mg tablet 50 mg PO DAILY tab 07/10/20 [History Last Taken Unknown] rosuvastatin 5 mg tablet 5 mg PO DAILY tab 07/10/20 [History Last Taken Unknown] doxycycline monohydrate 100 mg PO BID #20 capsule 02/13/21 [Rx Last Taken Unknown] Allergy/AdvReac Type Severity Reaction Status Date / Time codeine Allergy Swelling Verified 02/16/21 23:55 Penicillins Allergy Swelling Verified 02/16/21 23:55 Sulfa (Sulfonamide Allergy Swelling Verified 02/16/21 23:55 Antibiotics) diphenhydramine AdvReac Other Verified 02/16/21 23:55 [From Benadryl] metoclopramide [From Reglan] AdvReac Other Verified 02/16/21 23:55 tylenol AdvReac Other Uncoded 02/16/21 23:55 Surgical History H/O coronary artery bypass surgery (05/30/18) History of left heart catheterization (05/28/18) Social History Smoking Status: Former smoker ROS [facility] ED Constitutional Constitutional ED: Reports body ache(s), fatigue and malaise; Denies chills or fever(s) Eyes Eyes: Denies change in vision or diplopia ENT ENT ED: Reports nasal congestion, rhinorrhea and sinus pain; Denies sore throat Cardiovascular Cardiovascular: Reports as per HPI and chest pain; Denies palpitations Respiratory/Chest Respiratory/Chest: Reports cough and dyspnea Gastrointestinal Gastrointestinal: Reports abdominal pain, nausea and vomiting; Denies diarrhea Genitourinary Genitourinary ED: Denies dysuria or hematuria Musculoskeletal Musculoskeletal: Reports back pain; Denies neck pain Integumentary Denies abscess or rash Neurologic Neurologic: Reports other Details: 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 ; Denies headache(s), paresthesias or weakness Psychiatric Psychiatric: Denies anxiety or suicidal thoughts EXAM Physical Exam Const Vital Signs: 02/16/21 23:51 02/17/21 01:16 02/17/21 01:18 Temperature 97.8 F 97.2 F L 97.2 F L Temperature Source Temporal Temporal Temporal Pulse Rate 127 H 113 H 114 H Respiratory Rate 16 18 18 Blood Pressure 99/67 122/82 H 122/82 H Blood Pressure Mean 77 95 95 Pulse Ox 100 99 99 Oxygen Delivery Method Room Air Room Air Room Air 02/17/21 03:43 02/17/21 05:49 02/17/21 08:00 Temperature 98.5 F Temperature Source Oral Pulse Rate 108 H 77 75 Respiratory Rate 16 14 14 Blood Pressure 146/87 H 149/78 H 143/79 H Blood Pressure Mean 106 101 100 Pulse Ox 98 96 97 Oxygen Delivery Method Room Air Room Air Room Air Positive well nourished and well developed General Appearance ED: well developed and NAD HEENT Reports moist mucous membranes normocephalic and atraumatic Eyes PERRL and EOMs intact bilaterally Neck full ROM and supple Resp normal respiratory effort and clear to auscultation bilaterally Cardio regular rate, regular rhythm and no murmurs GI non-distended GI Narrative: Epigastric tenderness, otherwise nontender and benign. Negative [place]. No guarding or rebound tenderness. Auscultation: normoactive bowel sounds Palpation: soft Back/Spine no CVA tenderness General Back: other FROM Extremity normal to inspection General Extremety ED: Negative for edema, pulses abnormal or tenderness General Extremity: Negative for edema or pulses abnormal Neuro oriented x3, CN's II-XII intact bilaterally and no sensory deficits noted Sensorium / Orientation: awake and alert Motor Exam: strength 5/5 throughout Skin no rashes or lesions noted and no wounds MDM MDM MDM Narrative Medical decision making narrative: Labs show acute kidney injury. Mild hypokalemia. Resolution of her leukocytosis she had yesterday. Persistent urinary tract infection. I obtained a CT of her abdomen and pelvis and it shows nothing acute but it does incidentally show a lesion on her left kidney that radiology recommends further outpatient imaging of. I discussed this with the patient and the possibility of a being a mass and not a cyst. I think that is incidental and not related to her symptoms right now. Despite Zofran she was still nauseated and dry heaving. We gave her an oral Phenergan which seemed to help some, she is still having epigastric pain so she was given some Mylanta, and since due to her medication allergies and suggestion of angioedema to penicillins and the fact that she has never tried a cephalosporin that she can recall, we left her on doxycycline for the urinary tract infection and although she has only been on it for 1 day, I gave her another dose of IV Rocephin for that purpose. She rested and slept a little while we reevaluated her. She is still feeling very malaised and her abdominal pain is still present. She prefers to be admitted. She does not meet any criteria for sepsis at this time. She does indicate that she is having a hard time getting around at home and taking care of her self, she does live alone. Will discuss with hospitalist. Lab Data Attestation: I reviewed the patient's lab results. Labs: Laboratory Results - last 24 hr 02/17/21 02/17/21 02/17/21 00:21 00:21 00:21 WBC 8.4 RBC 4.55 Hgb 12.7 Hct 40.0 MCV 87.9 MCH 27.9 MCHC 31.8 L RDW Std Deviation 43.3 RDW Coeff of Tushar 13.5 Plt Count 468 H MPV 11.7 Immature Gran % (Auto) 0.400 Neut % (Auto) 71.0 H Lymph % (Auto) 20.7 [place] % (Auto) 6.7 Eos % (Auto) 0.6 Baso % (Auto) 0.6 Absolute Neuts (auto) 6.0 Absolute Lymphs (auto) 1.73 Nucleated RBC % 0 Sodium 137 Potassium 3.2 L Chloride 99 Carbon Dioxide 28.0 Anion Gap 10 BUN 22 H Creatinine 1.26 H Estim Creat Clear Calc 49.85 Est GFR (MDRD) Af Amer 54 L Est GFR (MDRD) Non-Af 44 L BUN/Creatinine Ratio 17.5 Glucose 218 H Calcium 10.8 H Total Bilirubin 0.40 Direct Bilirubin 0.16 AST 13 L ALT 23 Alkaline Phosphatase 115 Troponin I High Sens 14 Total Protein 8.2 Albumin 2.4 L Globulin 5.8 H Lipase 148 Urine Color Urine Clarity Urine pH Ur Specific [place] Urine Protein Urine Glucose (UA) Urine Ketones Urine Occult Blood Urine Nitrite Urine Bilirubin Urine Urobilinogen Ur Leukocyte Esterase Urine RBC Urine WBC Ur Squamous Epith Cells Urine Bacteria Hyaline Casts Urine Mucus POC Glucose 02/17/21 02/17/21 00:25 04:50 WBC RBC Hgb Hct MCV MCH MCHC RDW Std Deviation RDW Coeff of Tushar Plt Count MPV Immature Gran % (Auto) Neut % (Auto) Lymph % (Auto) [place] % (Auto) Eos % (Auto) Baso % (Auto) Absolute Neuts (auto) Absolute Lymphs (auto) Nucleated RBC % Sodium Potassium Chloride Carbon Dioxide Anion Gap BUN Creatinine Estim Creat Clear Calc Est GFR (MDRD) Af Amer Est GFR (MDRD) Non-Af BUN/Creatinine Ratio Glucose Calcium Total Bilirubin Direct Bilirubin AST ALT Alkaline Phosphatase Troponin I High Sens Total Protein Albumin Globulin Lipase Urine Color Yellow Urine Clarity Sl. Cloudy Urine pH 5.0 Ur Specific [place] 1.010 Urine Protein 30 H Urine Glucose (UA) 100 H Urine Ketones 5 H Urine Occult Blood 250 H Urine Nitrite Negative Urine Bilirubin Negative Urine Urobilinogen Normal Ur Leukocyte Esterase 500 H Urine RBC 25-50 SEEN Urine WBC >100 SEEN Ur Squamous Epith Cells 10-25 SEEN Urine Bacteria 2+ Hyaline Casts 5-10 SEEN Urine Mucus 0 SEEN POC Glucose 192 H Radiography Diagnostic Testing: Radiology Impression Abdomen/Pelvis CT 02/17/21 02:52 IMPRESSION: Bilateral kidneys with multiple cystic lesions, the majority appear complex or indeterminate, the appearance hasn''t changed since the previous examination. There is a posterior cystic upper pole lesion in the left kidney arising of a formerly seen cortical cyst which is indeterminate, requires further imaging detail with MRI, consultation with urology and tissue sampling. No signs of metastatic disease. Cyst with wall thickening, no active inflammation detected. Subclinical acute on chronic inflammation may be present, this however is unchanged since previous exams. Arteriosclerosis, degenerative changes, gallbladder sludge felt to be nonacute findings. Electronically Signed: Samantha Quintana MD at 4:12 EDT , Service support , Discharge Plan Dx/Rx/DC Orders Clinical Impression: Urinary tract infection, TEODORO (acute kidney injury), Acute epigastric pain, Declining functional status, Intractable vomiting, Chest pain, non-cardiac Disposition Disposition: Acute Care [facility]
[2021-02-17 03:23] LABS: AST(SGOT) 13 U/L (15-37); Alanine Aminotransfer ALT/SGPT 23 U/L (13-56); Albumin, Serum 2.4 g/dL (3.2-5.0); Alkaline Phosphatase 115 U/L (45-117); Bilirubin, Direct 0.16 mg/dL (0.00-0.30); Globulin 5.8 g/dL (2.2-4.2); Lipase 148 U/L (73-393); Protein, Total 8.2 g/dL (6.4-8.2); Troponin-I HS 14 pg/mL (3.0-54.0)
[2021-02-17] MEDS: Ceftriaxone 1 GM/50 ML BAG IV (04:42)
[2021-02-17] MEDS: proMETHazine 25 MG Tablet PO (04:55)
[2021-02-17 05:01] LABS: Mucous, Urine 0 SEEN /hpf (<or=2+)
[2021-02-17 05:02] LABS: Color, Urine Yellow (Yellow); Glucose, Dipstick 100 mg/dl (Normal); Ketone-Dipstick 5 mg/dl (Negative); Leukocyte Esterase-Dipstick 500 /ul (Negative); Nitrite-Dipstick Negative (Negative); Occult Blood-Urine 250 /ul (Negative); Protein-Dipstick 30 mg/dl (Negative); Urine Bilirubin Dipstick Negative (Negative); Urine Clarity Sl. Cloudy (Clear); Urine Urobilinogen Normal (Normal)
[2021-02-17 05:14] LABS: Red Blood Cells-Urine 25-50 SEEN /hpf (0-5); White Blood Cells >100 SEEN /hpf (0-5)
[2021-02-17 05:15] LABS: Bacteria 2+ /hpf (None Seen); Hyaline Cast 5-10 SEEN /lpf (0-5); Squamous Epithelial Cells - UA 10-25 SEEN /hpf (5-10)
[2021-02-17] MEDS: Mag Hydrox/Al Hydrox/Simeth 30 ML UDC PO (05:27)
--- NOTE | 2021-02-17 08:11 | NURSING ---
DR MIRANDA FOR DR GALLEGOS
--- NOTE | 2021-02-17 08:20 | NURSING ---
MED SURG OBS RUTH INTRACTABLE VOMITING, FUNCTIONAL DECLINE, UTI
--- NOTE | 2021-02-17 08:33 | PCM.HP.STD ---
[facility] - General General Date of Service: 02/17/21 Chief Complaint: abdominal pain HPI Narrative IRSHABH HIGUERA, is a 70 F who presents presents with 4 days of abdominal pain. Presented to the emergency room on the and was discharged with the doxycycline. Patient continued to feel worse. Was having abdominal pain as well as nausea and some vomiting. Just progressively got weaker during this time and has fallen but denies hitting her head or any loss of consciousness. The patient comes again today and was confirmed to have UTI and her culture from previous showed E. coli. Patient has numerous allergies which she reports is more sound like angioedema and she did receive ceftriaxone. Patient still with nausea and just weakness and unable to go home safely so the hospital service was contacted for admission. [facility] Medical History Anxiety Atherosclerosis of coronary artery of [place] heart without angina pectoris Diabetes Essential (primary) hypertension History of CVA (cerebrovascular accident) (09/2014) History of non-ST elevation myocardial infarction (NSTEMI) (06/2018) Hyperlipidemia Overactive bladder Pancreatitis Sternum pain Tobacco abuse Home Medications Lactobacillus acidophilus 1 ea PO DAILY 06/14/18 [History Last Taken 07/24/19] aspirin 81 mg PO DAILY@0800 06/14/18 [History Last Taken 07/24/19] cholecalciferol (vitamin D3) 3,000 unit PO DAILY@0800 06/14/18 [History Last Taken 07/24/19] oxybutynin chloride 5 mg PO DAILY 06/14/18 [History Last Taken 07/24/19] clopidogrel 75 mg PO DAILY #30 tab 06/19/18 [Rx Last Taken 07/24/19] metoprolol tartrate 25 mg tablet 12.5 mg PO BID tab 07/10/19 [History Last Taken 07/24/19] omeprazole 20 mg capsule,delayed release 40 mg PO DAILY cap 07/10/19 [History Last Taken 07/24/19] insulin glargine 30 units SC QHS 07/23/19 [History Last Taken 07/24/19] insulin lispro 10 unit SC TIDCM 07/23/19 [History Last Taken 07/24/19] buspirone 15 mg tablet 7.5 mg PO BID tab 07/10/20 [History Last Taken Unknown] losartan 50 mg tablet 50 mg PO DAILY tab 07/10/20 [History Last Taken Unknown] rosuvastatin 5 mg tablet 5 mg PO DAILY tab 07/10/20 [History Last Taken Unknown] doxycycline monohydrate 100 mg PO BID #20 capsule 02/13/21 [Rx Last Taken Unknown] Allergy/AdvReac Type Severity Reaction Status Date / Time codeine Allergy Swelling Verified 02/16/21 23:55 Penicillins Allergy Swelling Verified 02/16/21 23:55 Sulfa (Sulfonamide Allergy Swelling Verified 02/16/21 23:55 Antibiotics) diphenhydramine AdvReac Other Verified 02/16/21 23:55 [From Benadryl] metoclopramide [From Reglan] AdvReac Other Verified 02/16/21 23:55 tylenol AdvReac Other Uncoded 02/16/21 23:55 Surgical History H/O coronary artery bypass surgery (05/30/18) History of left heart catheterization (05/28/18) Social History Smoking Status: Former smoker ROS ROS Narrative Not eating much. Patient a few bites of cereal and then spit up but no vomiting with. All review of systems were negative except as mentioned above in the history of present illness and the other review of systems. Does complain of chest pain. Patient also has back pain related to falls. Vital Signs Vital Signs Vital Signs: 02/16/21 23:51 02/17/21 01:16 02/17/21 01:18 Temperature 36.6 C 36.2 C L 36.2 C L Temperature Source Temporal Temporal Temporal Pulse Rate 127 H 113 H 114 H Respiratory Rate 16 18 18 Blood Pressure 99/67 122/82 H 122/82 H Blood Pressure Mean 77 95 95 Pulse Ox 100 99 99 Oxygen Delivery Method Room Air Room Air Room Air 02/17/21 03:43 02/17/21 05:49 02/17/21 08:00 Temperature 36.9 C Temperature Source Oral Pulse Rate 108 H 77 75 Respiratory Rate 16 14 14 Blood Pressure 146/87 H 149/78 H 143/79 H Blood Pressure Mean 106 101 100 Pulse Ox 98 96 97 Oxygen Delivery Method Room Air Room Air Room Air 02/17/21 08:18 Temperature 36.9 C Temperature Source Oral Pulse Rate 97 Respiratory Rate 16 Blood Pressure 150/90 H Blood Pressure Mean 110 Pulse Ox 97 Oxygen Delivery Method Room Air Weight Weight: 77.111 kg Body Mass Index (BMI) 34.3 Physical Exam Narrative Reproducible anterior chest wall tenderness Const alert, no apparent distress and average body habitus HEENT normocephalic, head/scalp atraumatic and hearing grossly normal bilaterally HEENT Narrative: Mucous membrane dry Eyes Eyes Narrative: No icterus Resp normal respiratory effort, no retractions, no use of accessory muscles and clear to auscultation bilaterally Cardio regular rate, regular rhythm, S1 normal heart sound and S2 normal heart sound GI normal to inspection, nondistended, normoactive bowel sounds, soft to palpation, non-tender and non-distended Extremity normal to inspection and full ROM Peripheral Pulses: Yes pulses 2+ throughout Skin no rashes or lesions noted Neuro Neuro Narrative: No clonus Sensorium / Orientation: awake and alert Psych Psych Narrative: Flat affect Results Lab / Micro Data Attestation: I reviewed the patient's lab results. Result Diagrams: 02/17/21 00:21 02/17/21 00:21 Labs: Laboratory Results - last 24 hr 02/17/21 00:21: WBC 8.4, RBC 4.55, Hgb 12.7, Hct 40.0, MCV 87.9, MCH 27.9, MCHC 31.8 L, RDW Std Deviation 43.3, RDW Coeff of Tushar 13.5, Plt Count 468 H, MPV 11.7, Immature Gran % (Auto) 0.400, Neut % (Auto) 71.0 H, Lymph % (Auto) 20.7, [place] % (Auto) 6.7, Eos % (Auto) 0.6, Baso % (Auto) 0.6, Absolute Neuts (auto) 6.0, Absolute Lymphs (auto) 1.73, Nucleated RBC % 0 02/17/21 00:21: Sodium 137, Potassium 3.2 L, Chloride 99, Carbon Dioxide 28.0, Anion Gap 10, BUN 22 H, Creatinine 1.26 H, Estim Creat Clear Calc 49.85, Est GFR (MDRD) Af Amer 54 L, Est GFR (MDRD) Non-Af 44 L, BUN/Creatinine Ratio 17.5, Glucose 218 H, Calcium 10.8 H 02/17/21 00:21: Total Bilirubin 0.40, Direct Bilirubin 0.16, AST 13 L, ALT 23, Alkaline Phosphatase 115, Troponin I High Sens 14, Total Protein 8.2, Albumin 2.4 L, Globulin 5.8 H, Lipase 148 02/17/21 00:25: POC Glucose 192 H 02/17/21 04:50: Urine Color Yellow, Urine Clarity Sl. Cloudy, Urine pH 5.0, Ur Specific [place] 1.010, Urine Protein 30 H, Urine Glucose (UA) 100 H, Urine Ketones 5 H, Urine Occult Blood 250 H, Urine Nitrite Negative, Urine Bilirubin Negative, Urine Urobilinogen Normal, Ur Leukocyte Esterase 500 H, Urine RBC 25-50 SEEN, Urine WBC >100 SEEN, Ur Squamous Epith Cells 10-25 SEEN, Urine Bacteria 2+, Hyaline Casts 5-10 SEEN, Urine Mucus 0 SEEN Radiology Impression Abdomen/Pelvis CT 02/17/21 02:52 IMPRESSION: Bilateral kidneys with multiple cystic lesions, the majority appear complex or indeterminate, the appearance hasn''t changed since the previous examination. There is a posterior cystic upper pole lesion in the left kidney arising of a formerly seen cortical cyst which is indeterminate, requires further imaging detail with MRI, consultation with urology and tissue sampling. No signs of metastatic disease. Cyst with wall thickening, no active inflammation detected. Subclinical acute on chronic inflammation may be present, this however is unchanged since previous exams. Arteriosclerosis, degenerative changes, gallbladder sludge felt to be nonacute findings. Electronically Signed: Samantha Quintana MD at 4:12 EDT , Service support , Assessment & Plan Assessment/Plan (1) Urinary tract infection: QUALIFIERS: Urinary tract infection type: acute cystitis Hematuria presence: without hematuria Qualified Code(s): N30.00 - Acute cystitis without hematuria (2) Intractable nausea and vomiting: (3) Atypical chest pain: PLAN: 1. UTI Secondary to E. coli Continue with ceftriaxone for now until patient can take oral. 2. Intractable nausea and vomiting CAT scan negative for any acute process IV fluids as well as antiemetics 3. Atypical chest pain Likely musculoskeletal Troponins negative No additional work-up at this time 4. Diabetes mellitus type 2 Insulin-dependent Will put the patient on a reduced dose of her insulin glargine from 30-15 until patient can actively eat regularly and that point time then we could likely resume her insulin glargine. And also is that she will be eating regularly we will hold her scheduled log and place her on sliding scale 5. Coronary artery disease Status post CABG Continue with dual antiplatelet therapy 6. VTE prophylaxis Low molecular rate heparin 7. Debility Patient has fallen just to due to being weak. No loss conscious nor any head injury so no additional CT imaging is necessary PT OT evaluate and treat 8. Elevated creatinine Baseline around 1 and creatinine is 1.26. This does not qualify as acute kidney injury, therefore ruled out. 9. Covid screening: Patient states that she was supposed to get the COVID-19 vaccine. She says she may have received it during her most recent visit in the emergency room. I do not see any instance of that medication being administered. She is open to receiving it so we can give her the [employer] vaccine. 10. CODE STATUS: Addressed with the patient. Patient stated initially that she want CPR but does not want to be intubated. I told her that if she were to survive cardiopulmonary arrest that she would likely require being on ventilator. I told her that she should either be DNR Comfort Care arrest no intubation or complete full CODE STATUS. Patient was not committable to either those options so since she want to have CPR I told her I would leave her at full CODE STATUS. I did inform her that she could change her mind at any point in time. And also did inform her that I have no immediate concerns for any cardiopulmonary resuscitation being needed during this hospitalization. Charges/Coding Visit Charges Inpatient E&M: 93148 Init Hosp L3
[2021-02-17] MEDS: COVID-19 VAC,AD26(JANSSEN)/PF 0.5 ML SYRINGE IM (10:23)
[2021-02-17] MEDS: 0.9% Normal Saline 1,000 ML 150 ML IV ×2 (10:58→17:14)
[2021-02-17 11:35] LABS: Bedside Glucose 189 mg/dL (70-110)
[2021-02-17] MEDS: Insulin Lispro 100 UNIT/ML INSULN.PEN SC ×2 (11:41→16:42)
[2021-02-17] MEDS: Enoxaparin 40 MG/0.4 ML Syringe SC (11:43)
[2021-02-17] MEDS: 0.9% Saline Lock 10 ML Syringe IV (12:33)
[2021-02-17] MEDS: Metoprolol Tartrate 25 MG Tablet 12.5 MG PO ×2 (12:52→21:27)
[2021-02-17] MEDS: Losartan Potassium 50 MG Tablet PO (12:52)
--- NOTE | 2021-02-17 15:15 | NURSING ---
Pandemic documentation in effect starting 02/17/21 0926
[2021-02-17 16:45] LABS: Bedside Glucose 187 mg/dL (70-110)
[2021-02-17] MEDS: busPIRone 15 MG TABLET 7.5 MG PO (21:28)
[2021-02-17 21:36] LABS: Bedside Glucose 202 mg/dL (70-110)
[2021-02-18] MEDS: Ondansetron 4 MG/2 ML Vial IV (03:19)
[2021-02-18] MEDS: 0.9% Saline Lock 10 ML Syringe IV (03:19)
[2021-02-18 03:22] VITALS: BP 159/87; PULSE 86; RESP 18; TEMP 36.8; O2SAT 96
[2021-02-18] MEDS: Ceftriaxone 1 GM/50 ML BAG IV (06:07)
[2021-02-18] MEDS: Insulin Lispro 100 UNIT/ML INSULN.PEN SC ×3 (06:08→16:17)
[2021-02-18 06:16] LABS: Bedside Glucose 150 mg/dL (70-110)
[2021-02-18 06:27] LABS: Absolute Lymphocyte Count 1.52 X10^3/uL (0.83-4.51); Absolute Neutrophil Count 3.7 X10^3/uL (2.0-7.7); Basophil# 0.04 X10^3/uL; Basophil% 0.7 % (0-1); Eosinophils% 1.7 % (0-5); Hematocrit 30.7 % (37-47); Hemoglobin 9.8 g/dL (12.0-15.0); Lymphocyte # 1.52 X10^3/ul (0.83-4.51); Lymphocyte % 25.9 % (19-41); Mean Corp Hgb Conc 31.9 g/dL (32-36); Mean Corpuscular Hgb 27.8 pg (27.0-32.0); Mean Corpuscular Volume 87.2 fL (81-99); Mean Platelet Vol. 11.6 fl (6.2-12.0); Monocyte# 0.52 X10^3/uL; Monocyte% 8.8 % (0-10); NRBC Flagged by Analyzer 0 % (0-5); Neutrophil # 3.68 X10^3/uL (2.7-7.7); Neutrophil % 62.6 % (47-70); Platelet Count 350 K/mm3 (150-450); RBC Distribution Width CV 13.7 % (11.6-14.6); RBC Distribution Width SD 43.5 fl (35.1-43.9); Red Blood Count 3.52 M/mm3 (4.2-5.4); White Blood Count 5.9 K/mm3 (4.4-11.0)
[2021-02-18 06:55] LABS: ALB/GLOB Ratio 0.4 RATIO (0.9-2.4); AST(SGOT) 7 U/L (15-37); Alanine Aminotransfer ALT/SGPT 14 U/L (13-56); Albumin, Serum 1.7 g/dL (3.2-5.0); Alkaline Phosphatase 81 U/L (45-117); Anion Gap 5 (5-15); BUN 14 mg/dL (7-18); BUN/Creat Ratio 19.4 RATIO (10-20); Calcium,Total 8.1 mg/dL (8.5-10.1); Chloride 108 mmol/L (98-107); Creatinine, Serum 0.72 mg/dL (0.55-1.02); EST Glomerular Filtration Rate 84 mL/min (>60); Est Glom Filt Rate - Afr Amer 102 mL/min (>60); Estimated Creatinine Clearance 57.02 ml/min; Globulin 3.9 g/dL (2.2-4.2); Glucose 165 mg/dL (74-106); Potassium 2.9 mmol/L (3.5-5.1); Protein, Total 5.6 g/dL (6.4-8.2); Sodium Level 139 mmol/L (136-145)
[2021-02-18 07:34] LABS: Magnesium 1.5 mg/dL (1.6-2.6)
[2021-02-18] MEDS: Aspirin E.C. 81 MG Tablet PO (08:47)
[2021-02-18] MEDS: Losartan Potassium 50 MG Tablet PO (08:48)
[2021-02-18] MEDS: Clopidogrel Bisulfate 75 MG Tablet PO (08:48)
[2021-02-18] MEDS: busPIRone 15 MG TABLET 7.5 MG PO ×2 (08:48→20:55)
[2021-02-18] MEDS: Oxybutynin 5 MG Tablet PO (08:48)
[2021-02-18 08:49] VITALS: PULSE 80
[2021-02-18] MEDS: Enoxaparin 40 MG/0.4 ML Syringe SC (08:49)
[2021-02-18] MEDS: Atorvastatin Calcium 10 MG Tablet PO (08:49)
[2021-02-18] MEDS: Metoprolol Tartrate 25 MG Tablet 12.5 MG PO ×2 (08:49→20:55)
[2021-02-18] MEDS: Pantoprazole Sodium 40 MG Tablet PO (08:49)
[2021-02-18] MEDS: Potassium Chloride Oral Tablet 20 MEQ 40 MEQ PO ×2 (09:06→16:18)
[2021-02-18 09:07] VITALS: BP 148/72; PULSE 80; RESP 16; TEMP 36.9; O2SAT 94
[2021-02-18] MEDS: Phenazopyridine 95 MG Tablet PO ×3 (10:53→20:55)
--- NOTE | 2021-02-18 11:15 | CASEMGMT ---
Addendum entered by Donte Valdez 02/18/21 13:56: Pt states she would like a SN w/[facility] as well for further education/assistance w/DM and med mgmt. SN added to [facility] orders. Call placed to [facility] and message left on Addie's VM re: same. Addendum entered by Donte Valdez 02/18/21 13:49: Call received back from Addie @ [facility]. She states they are able to accept pt, but d/t staffing, SOC would not be until or Mon of next week. FADI CHILEL to room to talk w/pt and she was made aware of same. She was also made aware MD anticipates she will be ready to d/c home in 1-2 days. Offered to pt to make referral to others agencies so SOC can be sooner. Pt states she wants [facility] and she feels SOC on or Mon will be fine and does not wish for referral to be placed w/another agency. Call placed back to Addie [facility] and she was made aware. D/C Plan: Home w/[facility]: PT/OT and SW Addendum entered by Donte Valdez 02/18/21 13:36: PT/OT notes reviewed. Pt able to ambulate 70-80 ft w/min assist w/transfers and CGA w/ambulation and additional therapy was recommended. FADI CHILEL to room to further discuss discharge planning. Pt confirms she wishes to return home w/[facility]. Pt was provided with list of [facility] providers including quality and resource use data and consistent with the patient's preferred geographic region, medical needs, and insurance network. The pt states [facility]. Call placed to [facility] and VM left w/Addie re: referral for PT/OT and SW. She was made aware anticipate pt will be ready for discharge in 1-2 days. Awaiting return call re: acceptance. Kisha BRAVO RN, CM Original Note: RN RANJANA LICENSED MORTICIAN CM to room to meet with patient for initial transition planning/care coordination assessment. FADI CHILEL introduced self and role at [facility]. Pt voices understanding and consents to assessment at this time. Pt resting in bed in no distress at this time. Pt is A/O at this time and answers all questions appropriately. Care providers, pharmacy, and demographics verified/updated at this time. PCP: Dr Baird Specialists: Dr Marroquin--pulmonology Preferred Pharmacy: [facility] Insurance: [facility] Prescription Benefit: Yes Living Will/HPOA: States does not have LW or HCPOA . Interested in more information but states does not want to talk with SW at this time to complete paperwork. Provided information on advanced directives and given Social Service rac card with number to call if chooses in the future to utilize [facility] social work for advanced directive completion. Educated patient that, if patient so chooses, can come back to [facility] and meet with a SW as an outpatient to complete health care advanced directives. Patient expresses understanding. LNOK: Daughter, Sera Palmer. Grand-daughter, Chastity Jordan. Only Chastity is listed on pt's demographics as NOK. Pt does not want dtr, Sera, listed, stating, She very seldom does anything for me. Pt initially stated did not want Chastity listed either, stating, I don't want any part of her. RN RANJANA asked pt if she would like anyone else listed and she stated, I don't have anybody else. Pt made aware someone should be listed as an emergency contact. Pt agreeable to having Chastity's name/# listed for emergencies only, but does not want her notified of her admission or given updates otherwise. RN, Estella, in room and aware. Living Arrangements: Lives alone in one-story apt @ senior housing w/no steps to enter. States independent w/ADL's and able to prepare her own meals. She states she needs assistance w/laundry and cleaning. She used to gets Mom's meals but is interested in getting Meals on Wheels. VOLODYMYR, Jessica Fry, made aware of above. Transportation: Pt states drives self and states no transportation concerns at this time. DME: States has the following DME: functioning glucometer w/supplies, shower chair, quad cane, walker. Pt states is interested in getting medical alert button. Pt given information/list of companies that provide these. Pt states no need for further DME at this time. HHC/SNF: Hx [facility] and [facility]. Pt states prefers to return home, if able, but if therapy recommends SNF, she may be agreeable to SNF, but again states she prefers home and is interested in HHC. Pt wishes to return home and states has no concerns with going home at time of discharge. CM to follow for further discharge planning/needs. Pt voices no further concerns/needs at this time. Advised pt to ask for CM if any further questions/concerns/needs arise. Voices understanding. PLAN: TBD by course of treatment and progress w/therapy. Pt prefers home w/HHC. PT/OT evals pending. Kisha LOWN RN CM
--- NOTE | 2021-02-18 11:20 | CASEMGMT ---
Social Work Note SW received referral for [facility] [employer] [facility], [facility] SW in to speak with pt. SW introduced self and role at [facility]. SW educated pt on [facility] and [facility]. SW offered to make referrals to both [facility] and [facility] for pt. Pt states she has already spoken to [facility], denied wanting a referral being made. Pt is agreeable to [facility] referral being made. SW made [facility] referral. Jessica Henriquez EYELET MACHINE OPERATOR, GOLF COACH
[2021-02-18 11:21] LABS: Bedside Glucose 303 mg/dL (70-110)
--- NOTE | 2021-02-18 13:11 | CASEMGMT ---
FADI CHILEL NOTE: Pt screened with [facility] Palliative Care Screening Tool for strata 3, pt did not meet criteria. Kisha LOWN RN CM
--- NOTE | 2021-02-18 13:46 | PN.HOSP_ITS ---
Subjective Subjective Feeling better. Vomiting improved. Objective Data Objective Data Vital Signs: Vital Signs Temp Pulse Resp BP Pulse Ox 36.9 C 80 16 148/72 H 94 02/18/21 09:07 02/18/21 09:07 02/18/21 09:07 02/18/21 09:07 02/18/21 09:07 Oxygen Delivery Method Room Air Weight: 70 kg Body Mass Index (BMI) 31.1 Intake & Output: Intake and Output for Last 24 Hours 02/16/21 02/17/21 02/18/21 23:59 23:59 23:59 Intake Total 3990 / 3990 540 / 540 Output Total 600 / 600 Balance 3990 / 3990 -60 / -60 Lab / Micro Data Result Diagrams: 02/18/21 06:00 02/18/21 06:00 Labs: Laboratory Results - last 24 hr 02/17/21 16:39: POC Glucose 187 H 02/17/21 21:24: POC Glucose 202 H 02/18/21 06:00: WBC 5.9, RBC 3.52 L, Hgb 9.8 L, Hct 30.7 L, MCV 87.2, MCH 27.8, MCHC 31.9 L, RDW Std Deviation 43.5, RDW Coeff of Tushar 13.7, Plt Count 350, MPV 11.6, Immature Gran % (Auto) 0.300, Neut % (Auto) 62.6, Lymph % (Auto) 25.9, [place] % (Auto) 8.8, Eos % (Auto) 1.7, Baso % (Auto) 0.7, Absolute Neuts (auto) 3.7, Absolute Lymphs (auto) 1.52, Nucleated RBC % 0 02/18/21 06:00: Sodium 139, Potassium 2.9 L, Chloride 108 H, Carbon Dioxide 26.0, Anion Gap 5, BUN 14, Creatinine 0.72, Estim Creat Clear Calc 57.02, Est GFR (MDRD) Af Amer 102, Est GFR (MDRD) Non-Af 84, BUN/Creatinine Ratio 19.4, G lucose 165 H, Calcium 8.1 L, Total Bilirubin 0.40, AST 7 L, ALT 14, Alkaline Phosphatase 81, Total Protein 5.6 L, Albumin 1.7 L, Globulin 3.9, Albumin/Globulin Ratio 0.4 L 02/18/21 06:00: Magnesium 1.5 L 02/18/21 06:07: POC Glucose 150 H 02/18/21 11:13: POC Glucose 303 H Physical Exam Const alert Resp normal respiratory effort, no retractions, no use of accessory muscles and clear to auscultation bilaterally Cardio regular rate, regular rhythm, S1 normal heart sound and S2 normal heart sound GI normal to inspection, nondistended, normoactive bowel sounds, soft to palpation, non-tender and non-distended Neuro Sensorium / Orientation: awake and alert Assessment & Plan Assessment/Plan (1) Urinary tract infection: QUALIFIERS: Urinary tract infection type: acute cystitis Hematuria presence: without hematuria Qualified Code(s): N30.00 - Acute cystitis without hematuria (2) Intractable nausea and vomiting: (3) Atypical chest pain: PLAN: 1. UTI Secondary to E. coli Continue with ceftriaxone for now until patient can take oral. 2. Intractable nausea and vomiting Improved CAT scan negative for any acute process IV fluids as well as antiemetics 3. Atypical chest pain Likely musculoskeletal Troponins negative No additional work-up at this time 4. Diabetes mellitus type 2 Insulin-dependent Will increase glargine back to 30 5. Coronary artery disease Status post CABG Continue with dual antiplatelet therapy 6. VTE prophylaxis Low molecular rate heparin 7. Debility Patient has fallen just to due to being weak. No loss conscious nor any head injury so no additional CT imaging is necessary PT OT evaluate and treat 8. Elevated creatinine Baseline around 1 and creatinine is 1.26. This does not qualify as acute kidney injury, therefore ruled out. 9. Covid screening: Patient received J&J COVID 19 vaccine on 02/17 10. CODE STATUS: Addressed with the patient. Patient stated initially that she want CPR but does not want to be intubated. I told her that if she were to survive cardiopulmonary arrest that she would likely require being on ventilator. I told her that she should either be DNR Comfort Care arrest no i ntubation or complete full CODE STATUS. Patient was not committable to either those options so since she want to have CPR I told her I would leave her at full CODE STATUS. I did inform her that she could change her mind at any point in time. And also did inform her that I have no immediate concerns for any cardiopulmonary resuscitation being needed during this hospitalization. Charges/Coding Visit Charges Inpatient E&M: 43965 Subs Hosp L2
[2021-02-18 14:14] VITALS: BP 141/67; PULSE 71; RESP 16; TEMP 36.7; O2SAT 97
[2021-02-18 16:21] LABS: Bedside Glucose 314 mg/dL (70-110)
--- NOTE | 2021-02-18 16:45 | CHAPLAIN ---
Type of Pastoral Visit _x__ Initial Visit ___ Follow-up Visit ___ On-call Visit ___ General Patient Visit ___ Spiritual Assessment ___ Family Conference ___ Bereavement ___ Rapid Response ___ Code Blue ___ Other (describe below) Pastoral Care Referral From _x__ Patient ___ Family ___ Nurse ___ Physician ___ Qa Automation Engineer ___ Public Health Doctor ___ Other (describe below) Sacrament/Intervention _x__ Active listening ___ Anointing ___ Anglican ___ Bereavement ___ Communion ___ [place] exploration ___ _x__ Life review _x__ Prayer ___ Reconciliation ___ Sacrament of Sick _x__ Supportive presence ___ Wedding ___ Other (describe below) Pastoral Comments patient is awake but displays low energy and low affect; pt states I am not so good; pt states that she has no family or friends around and 'lives in a assisted community'; presence and prayer given
[2021-02-18 20:49] VITALS: BP 137/74; PULSE 94; RESP 17; TEMP 36.9; O2SAT 98
[2021-02-18 20:55] VITALS: PULSE 94
[2021-02-18 21:15] LABS: Bedside Glucose 317 mg/dL (70-110)
[2021-02-19 02:21] VITALS: BP 156/88; PULSE 83; RESP 17; TEMP 36.8; O2SAT 97
[2021-02-19] MEDS: Ceftriaxone 1 GM/50 ML BAG IV (05:46)
[2021-02-19] MEDS: Phenazopyridine 95 MG Tablet PO (05:48)
[2021-02-19] MEDS: Insulin Lispro 100 UNIT/ML INSULN.PEN SC (05:54)
[2021-02-19 07:26] LABS: Bedside Glucose 247 mg/dL (70-110)
[2021-02-19] MEDS: Aspirin E.C. 81 MG Tablet PO (08:05)
[2021-02-19] MEDS: Potassium Chloride Oral Tablet 20 MEQ 40 MEQ PO (08:05)
[2021-02-19 08:20] VITALS: BP 154/83; PULSE 83; RESP 18; TEMP 36.6; O2SAT 98
[2021-02-19 08:41] VITALS: RESP 18; O2SAT 98
--- NOTE | 2021-02-19 08:59 | PCM.DC ---
Discharge Instructions Diet Discharge Diet: 1999 Calorie Control Diet Activity Discharge Activity: Return to Normal Activity Dressing / Incision Call your doctor if you observe: Fever of 101 or Higher and Inability to urinate Follow Up Care Test Results: Test results from this visit will be discussed in further detail at your follow-up appointment, if applicable. Discharge Plan Admission Admit Date/Time: 02/17/21 08:27 Primary Reason for Your Visit: urinary tract infection. bacteremia. Attending Provider: Moy Perez Primary Care Provider: Trinity Baird Instructions Patient Instructions: ED Chest Pain, Noncardiac Discharge Orders/Prescriptions Prescriptions: New phenazopyridine [Azo Urinary Pain Relief] 95 mg Tablet 95 mg PO TID Qty: 2 RF: 0 ciprofloxacin HCl [Cipro] 500 mg tablet 500 mg PO BID Qty: 14 RF: 0 Continued metoprolol tartrate 25 mg tablet 12.5 mg PO BID RF: 0 omeprazole 20 mg capsule,delayed release(DR/EC) 40 mg PO DAILY RF: 0 rosuvastatin 5 mg tablet 5 mg PO DAILY RF: 0 buspirone 15 mg tablet 7.5 mg PO BID RF: 0 losartan 50 mg tablet 50 mg PO DAILY RF: 0 aspirin 81 MG tablet 81 mg PO DAILY@0800 RF: 0 Lactobacillus acidophilus 1 EACH capsule 1 ea PO DAILY RF: 0 oxybutynin chloride 5 MG tablet 5 mg PO DAILY RF: 0 cholecalciferol (vitamin D3) 1,000 UNIT tablet,chewable 3,000 unit PO DAILY@0800 RF: 0 clopidogrel 75 MG tablet 75 mg PO DAILY Qty: 30 RF: 0 insulin lispro 100 UNIT/ML insulin pen 10 unit SC TIDCM RF: 0 insulin glargine 100 UNITS/ML insulin pen 30 units SC QHS RF: 0 Discontinued doxycycline monohydrate 100 MG capsule 100 mg PO BID Qty: 20 RF: 0 Referrals / Follow Up: Trinity Baird MD [Primary Care Provider] - In 1 Week Disposition Disposition (needs filled in before D/C Order can be placed): Home Health Service
--- NOTE | 2021-02-19 09:05 | DS.PCM_ITS ---
Providers Date of Admission: 02/17/21 Primary Care Physician: Dr. Trinity Baird MD Reason For Visit: UTI, DEBILITY Diagnosis Discharge Diagnosis (1) Urinary tract infection: Status: Acute Code(s): N39.0 - Urinary tract infection, site not specified Qualifiers: Urinary tract infection type: acute cystitis Hematuria presence: without hematuria Qualified Code(s): N30.00 - Acute cystitis without hematuria (2) Intractable nausea and vomiting: Status: Acute Code(s): R11.2 - Nausea with vomiting, unspecified (3) Atypical chest pain: Status: Acute Code(s): R07.89 - Other chest pain (4) Bacteremia: Status: Acute Code(s): R78.81 - Bacteremia Medications at Discharge Home Medications Lactobacillus acidophilus 1 ea PO DAILY 06/14/18 aspirin 81 mg PO DAILY@0800 06/14/18 cholecalciferol (vitamin D3) 3,000 unit PO DAILY@0800 06/14/18 oxybutynin chloride 5 mg PO DAILY 06/14/18 clopidogrel 75 mg PO DAILY #30 tab 06/19/18 metoprolol tartrate 25 mg tablet 12.5 mg PO BID tab 07/10/19 omeprazole 20 mg capsule,delayed release 40 mg PO DAILY cap 07/10/19 insulin glargine 30 units SC QHS 07/23/19 insulin lispro 10 unit SC TIDCM 07/23/19 buspirone 15 mg tablet 7.5 mg PO BID tab 07/10/20 losartan 50 mg tablet 50 mg PO DAILY tab 07/10/20 rosuvastatin 5 mg tablet 5 mg PO DAILY tab 07/10/20 ciprofloxacin HCl [Cipro] 500 mg PO BID #14 tab 02/19/21 phenazopyridine [Azo Urinary Pain Relief] 95 mg PO TID #2 tab 02/19/21 Hospital Course Operations None Procedures None Summary of Care Provided Minutes Spent on Discharge: 32 Hospital Course: Initially presented on the to the emergency room with a 2- week course of cough and sinus drainage and myalgias. She did have blood and urine cultures performed at that time and patient was sent home with doxycycline. Patient was diagnosed with cystitis at that time. Patient came back with intractable nausea and vomiting. Patient had a urinary tract infection but also had bacteremia. The clock organism was E. coli. Patient was started on ceftriaxone and observed. Patient was also clinically dry so she did receive IV fluids. Patient overall has improved and patient will be discharged to complete 7 more days of ciprofloxacin. Patient already did receive 3 days of ceftriaxone. Patient will be on 10-day course of antibiotics due to the bacteremia. Patient is overall feeling better. Patient was seen by therapy and recommended additional therapy. Patient wishes to go home. When I touch base with the patient today she said that she wanted to stay another day. And when I told her that anything that were doing at this point time could be done at home but we could keep her here if she desired to go to a retirement facility. She declined retirement facility and said that she would rather go home with home care. Patient made aware that she will be discharged home. Patient did receive the COVID-19 [employer] vaccine on the . Patient made aware that she could still contract COVID-19 but the severity of illness would likely be less severe as she not been vaccinated but still advised caution if she is going to be go out in the community and wearing a mask. Physical Exam Const alert Resp normal respiratory effort and no retractions Cardio regular rate, regular rhythm, S1 normal heart sound and S2 normal heart sound GI normal to inspection, nondistended, normoactive bowel sounds, soft to palpation, non-tender and non-distended Psych Psych Narrative: flat affect Weight / BMI Weight Weight: 70 kg Body Mass Index (BMI) 31.1 ABG / Lab / Microbiology Data Result Diagrams: 02/18/21 06:00 02/18/21 06:00 Laboratory: Laboratory Results - last 24 hr 02/18/21 11:13: POC Glucose 303 H 02/18/21 16:15: POC Glucose 314 H 02/18/21 20:52: POC Glucose 317 H 02/19/21 05:52: POC Glucose 247 H D/C Instructions Discharge Diet: 2000 Calorie Control Diet Call your doctor if you observe: Fever of 101 or Higher and Inability to urinate Meaningful Use Info Meaningful Use Diagnoses (Choose all that apply): None applicable Discharge Plan Admission Admit Date/Time: 02/17/21 08:27 Primary Reason for Your Visit: urinary tract infection. bacteremia. Attending Provider: Moy Perez Primary Care Provider: Trinity Baird Instructions Patient Instructions: ED Chest Pain, Noncardiac Discharge Orders/Prescriptions Prescriptions: New phenazopyridine [Azo Urinary Pain Relief] 95 mg Tablet 95 mg PO TID Qty: 2 RF: 0 ciprofloxacin HCl [Cipro] 500 mg tablet 500 mg PO BID Qty: 14 RF: 0 Continued metoprolol tartrate 25 mg tablet 12.5 mg PO BID RF: 0 omeprazole 20 mg capsule,delayed release(DR/EC) 40 mg PO DAILY RF: 0 rosuvastatin 5 mg tablet 5 mg PO DAILY RF: 0 buspirone 15 mg tablet 7.5 mg PO BID RF: 0 losartan 50 mg tablet 50 mg PO DAILY RF: 0 aspirin 81 MG tablet 81 mg PO DAILY@0800 RF: 0 Lactobacillus acidophilus 1 EACH capsule 1 ea PO DAILY RF: 0 oxybutynin chloride 5 MG tablet 5 mg PO DAILY RF: 0 cholecalciferol (vitamin D3) 1,000 UNIT tablet,chewable 3,000 unit PO DAILY@0800 RF: 0 clopidogrel 75 MG tablet 75 mg PO DAILY Qty: 30 RF: 0 insulin lispro 100 UNIT/ML insulin pen 10 unit SC TIDCM RF: 0 insulin glargine 100 UNITS/ML insulin pen 30 units SC QHS RF: 0 Discontinued doxycycline monohydrate 100 MG capsule 100 mg PO BID Qty: 20 RF: 0 Referrals / Follow Up: Trinity Baird MD [Primary Care Provider] - In 1 Week Disposition Disposition (needs filled in before D/C Order can be placed): Home Health Servic e Charges/Coding Visit Charges Inpatient E&M: 72156 Disch Hosp
--- NOTE | 2021-02-19 09:30 | NURSING ---
Pt complaints of pain in upper epigastric area after eating breakfast states it always happens when she eats. When asked what she does for it at home states she waits it out. She is sitting up in bed. She states it has been resolved.
--- NOTE | 2021-02-19 09:33 | CASEMGMT ---
FADI CHILEL NOTE: TC to Addie @ [facility]. She was notified pt is discharging home today. Kisha BRAVO RN CM
[2021-02-19 09:47] VITALS: PULSE 83
[2021-02-19] MEDS: Losartan Potassium 50 MG Tablet PO (09:47)
[2021-02-19] MEDS: Pantoprazole Sodium 40 MG Tablet PO (09:47)
[2021-02-19] MEDS: Metoprolol Tartrate 25 MG Tablet 12.5 MG PO (09:47)
[2021-02-19] MEDS: Oxybutynin 5 MG Tablet PO (09:47)
[2021-02-19] MEDS: Clopidogrel Bisulfate 75 MG Tablet PO (09:47)
[2021-02-19] MEDS: Atorvastatin Calcium 10 MG Tablet PO (09:47)
[2021-02-19] MEDS: Enoxaparin 40 MG/0.4 ML Syringe SC (09:47)
[2021-02-19] MEDS: busPIRone 15 MG TABLET 7.5 MG PO (09:48)
[2021-02-19 10:56] VITALS: BP 139/79; PULSE 85; RESP 18; TEMP 36.4; O2SAT 98
--- NOTE | 2021-02-22 17:48 | CASEMGMT ---
RN RANJANA Discharge Follow-up Phone Call: EMRE: Ashley Strata:3 Call Date: 02/22/21 Discharge Date: 02/19/21 Time of Call: 165 Admitting Diagnosis: UTI, bacteremia This RN CM attempted to contact pt via phone for discharge follow-up. No answer received and no voicemail available. Pt was discharged with home health care services. Matt Wolfe RN CM
== END 2021-02-19 10:55 | disposition home health service (06) | DRG 690 ==
LOC: ED 02-17 08:08 → MS3 02-17 08:40
PROVIDERS: Emergency Provider Emergency Medicine; PCP Internal Medicine
DX: N39.0 Urinary tract infection, site not specified (principal); R78.81 Bacteremia; B96.20 Unspecified Escherichia coli [E. coli] as the cause of diseases classified elsewhere; R11.2 Nausea with vomiting, unspecified; R07.89 Other chest pain; I25.10 Atherosclerotic heart disease of native coronary artery without angina pectoris; E11.9 Type 2 diabetes mellitus without complications; Z23 Encounter for immunization; Z79.4 Long term (current) use of insulin; Z95.1 Presence of aortocoronary bypass graft; E78.5 Hyperlipidemia, unspecified; F41.9 Anxiety disorder, unspecified; I10 Essential (primary) hypertension; I25.2 Old myocardial infarction; N32.81 Overactive bladder; Z66 Do not resuscitate; Z72.0 Tobacco use; Z86.73 Personal history of transient ischemic attack (TIA), and cerebral infarction without residual deficits; Z88.0 Allergy status to penicillin; Z88.2 Allergy status to sulfonamides; Z88.5 Allergy status to narcotic agent
CPT/HCPCS: 0031A; 36415; 74177; 80048; 80053; 80076; 81001; 82962; 83690; 83735; 84484; 85025; 91303; 97162; 97166; 97802; 99285; J7030; Q9967; A4216; J2405

== ENCOUNTER 2021-02-23 10:17 | Inpatient (IN) | payer MEDICARE, MEDICAID, SELFPAY ==
[2021-02-23] VITALS (13 sets, daily range): BP systolic 119–144; BP diastolic 65–92; PULSE 68–99; RESP 14–18; TEMP 36–36.9; O2SAT 97–100; BMI 31.9; BMI 30.4
--- NOTE | 2021-02-23 10:34 | EKG12_ITS ---
Test Reason : CP Blood Pressure : / mmHG Vent. Rate : 100 BPM Atrial Rate : 100 BPM P-R Int : 112 ms QRS Dur : 072 ms QT Int : 348 ms P-R-T Axes : 056 027 050 degrees QTc Int : 448 ms Sinus rhythm with Premature supraventricular complexes Otherwise normal ECG Confirmed by BELINDA MCMANUS, NATALIA ([id number]), general expeditor [place] KIM ([id number]) on 02/24/2021 10:54:16 AM Referred By: HENRIK Confirmed By:NATALIA TREVINO MD
--- NOTE | 2021-02-23 10:34 | RAD_ITS ---
STUDY: X-RAY CHEST REASON FOR EXAM: Female, 70 years old. Chest pain TECHNIQUE: Single AP portable view of the chest. COMPARISON: Comparison is made with prior study dated 02/13/2021. FINDINGS: EKG electrodes are seen. The lungs are clear and expanded. There is no demonstrated pleural abnormality. Sternal cerclage wires and vascular clips are present from a prior sternotomy and coronary artery bypass graft procedure (CABG). Normal mediastinum and jelani. Normal visualized pulmonary arteries. There is atherosclerotic calcification of the aortic arch with tortuosity. There are diffuse degenerative changes of the visualized thoracic spine. There is degenerative osteoarthritis of the bilateral shoulders. There is no demonstrated abnormality of the visualized soft tissue structures of the upper abdomen. RAD/Chest 1 View (Portable) IMPRESSION: Stable examination. No acute abnormalities. Electronically Signed: Tato Alexander MD at 11:16 EDT , Service support ,
--- NOTE | 2021-02-23 10:35 | EDS_ITS ---
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 She reports having nausea and vomiting throughout the morning. She was in bed when she developed left-sided chest aching pain associated with nausea, diaphoresis and dyspnea. She did not have vomiting at the time. The pain is been constant for the past 3 hours. There are no alleviating or exacerbating factors. She denies hematemesis or hematochezia. She does have history of PE and DVT in the remote past. She also has history of prior stroke. She reports three-vessel bypass surgery. She has 2 pillow orthopnea. She denies PND. Prior Similar Symptoms: Yes and With Prior ND Recent Illness/Hospitalization: No CVD Risk Factors: Positive for Hypertension and Hypercholesterolemia; Negative for Diabetes PE Risk Factors: Positive for Recent Immobilization and Prior DVT or PE; Nega tive for Recent Travel/Surgery, Cancer and OCP + Smoking + >/=35 TAD Risk Factors: Positive for Hypertension; Negative for Marfan's Syndrome and [facility] History Anxiety Atherosclerosis of coronary artery of [place] heart without angina pectoris Chronic pain Diabetes Essential (primary) hypertension Former smoker History of CVA (cerebrovascular accident) (09/2014) History of non-ST elevation myocardial infarction (NSTEMI) (06/2018) Hyperlipidemia Overactive bladder Pancreatitis Sternum pain Tobacco abuse Home Medications Lactobacillus acidophilus 1 ea PO DAILY 06/14/18 [History Last Taken 07/24/19] aspirin 81 mg PO DAILY@0800 06/14/18 [History Last Taken 07/24/19] cholecalciferol (vitamin D3) 3,000 unit PO DAILY@0800 06/14/18 [History Last Taken 07/24/19] oxybutynin chloride 5 mg PO DAILY 06/14/18 [History Last Taken 07/24/19] clopidogrel 75 mg PO DAILY #30 tab 06/19/18 [Rx Last Taken 07/24/19] metoprolol tartrate 25 mg tablet 12.5 mg PO BID tab 07/10/19 [History Last Taken 07/24/19] omeprazole 20 mg capsule,delayed release 40 mg PO DAILY cap 07/10/19 [History Last Taken 07/24/19] insulin glargine 30 units SC QHS 07/23/19 [History Last Taken 07/24/19] insulin lispro 10 unit SC TIDCM 07/23/19 [History Last Taken 07/24/19] buspirone 15 mg tablet 7.5 mg PO BID tab 07/10/20 [History Last Taken Unknown] losartan 50 mg tablet 50 mg PO DAILY tab 07/10/20 [History Last Taken Unknown] rosuvastatin 5 mg tablet 5 mg PO DAILY tab 07/10/20 [History Last Taken Unknown] ciprofloxacin HCl [Cipro] 500 mg PO BID #14 tab 02/19/21 [Rx Last Taken Unknown] Allergy/AdvReac Type Severity Reaction Status Date / Time codeine Allergy Swelling Verified 02/23/21 10:30 Penicillins Allergy Swelling Verified 02/23/21 10:30 Sulfa (Sulfonamide Allergy Swelling Verified 02/23/21 10:30 Antibiotics) diphenhydramine AdvReac Other Verified 02/23/21 10:30 [From Benadryl] metoclopramide [From Reglan] AdvReac Other Verified 02/23/21 10:30 tylenol AdvReac Other Uncoded 02/23/21 10:30 Surgical History H/O coronary artery bypass surgery (05/30/18) History of left heart catheterization (05/28/18) Social History (Updated 02/23/21 @ 10:[address] Felipe Bowers MD) household members: none Smoking Status: Former smoker alcohol intake: current alcohol intake frequency: holidays/special occasions only substance use type: does not use ROS ROS ED Constitutional Constitutional ED: Denies chills, fever(s), subjective, sweats or weight loss Eyes Eyes: Reports none; Denies blurry vision, change in vision or diplopia ENT ENT ED: Reports rhinorrhea and sore throat; Denies ear pain Cardiovascular Cardiovascular: Reports as per HPI, chest pain and orthopnea; Denies palpitations or paroxysmal nocturnal dyspnea Respiratory/Chest Respiratory/Chest: Reports cough, dyspnea, dyspnea on exertion and orthopnea; Denies paroxysmal nocturnal dyspnea or sputum Gastrointestinal Gastrointestinal: Reports nausea and vomiting; Denies abdominal pain, constipation, diarrhea or melena Genitourinary Genitourinary ED: Denies dysuria, hematuria or urinary frequency Musculoskeletal Musculoskeletal: Denies arthralgias, myalgias or neck pain Integumentary Denies rash Neurologic Neurologic: Reports weakness; Denies headache(s) or paresthesias Endocrine Endocrinology: Denies polydipsia, polyphagia or polyuria Hematologic/Lymphatic Hematologic/Lymphatic: Denies easy bleeding or easy bruising EXAM Physical Exam Const Vital Signs: 02/23/21 10:22 02/23/21 10:31 02/23/21 10:39 Temperature 96.8 F L Temperature Source Oral Pulse Rate 97 95 Respiratory Rate 16 16 Respiratory Effort Short of Breath Respiratory Pattern Normal Blood Pressure 124/67 H 133/74 H Blood Pressure Mean 86 93 Pulse Ox 99 100 100 Oxygen Delivery Method Nasal Cannula Nasal Cannula Nasal Cannula Oxygen Flow Rate (L/min) 2 2 2 02/23/21 11:49 02/23/21 12:27 02/23/21 13:14 Temperature 98.4 F Temperature Source Oral Pulse Rate 71 68 72 Respiratory Rate 16 16 17 Respiratory Effort Respiratory Pattern Blood Pressure 144/86 H 141/65 H 137/92 H Blood Pressure Mean 105 90 107 Pulse Ox 100 100 100 Oxygen Delivery Method Room Air Nasal Cannula Oxygen Flow Rate (L/min) 2 02/23/21 13:49 Temperature Temperature Source Pulse Rate 74 Respiratory Rate 14 Respiratory Effort Respiratory Pattern Blood Pressure 139/76 H Blood Pressure Mean 97 Pulse Ox 98 Oxygen Delivery Method Room Air Oxygen Flow Rate (L/min) Positive well developed General Appearance ED: well developed and NAD; Negative for pallor HEENT Reports TM's clear and moist mucous membranes normocephalic and atraumatic Tympanic Membrane ED: Yes TM's clear Eyes PERRL and EOMs intact bilaterally General Eye ED: Negative for pale conjunctiva or scleral icterus Neck no lymphadenopathy, supple and no JVD Chest Wall inspection of chest normal Resp normal respiratory effort Effort and Inspection: respiratory distress Auscultation: rales bilateral base and diminished lung sounds; Negative for wheezes Cardio regular rate, S1 normal heart sound, S2 normal heart sound and no murmurs; Negative for regular rhythm Peripheral Pulses: pulses 2+ throughout GI normal to inspection, nondistended, normoactive bowel sounds, soft to palpation and non-tender Back/Spine no CVA tenderness and no thoracic nor lumbar tenderness Extremity normal to inspection General Extremety ED: Negative for edema, pulses abnormal or tenderness General Extremity: Negative for edema or pulses abnormal Neuro oriented x3 Sensorium / Orientation: awake and alert Psych mental status grossly normal Skin no rashes or lesions noted and no wounds General Skin Exam: Negative for jaundice or pallor Heart Score History: Slightly/Non-Suspicious ECG: Normal Age: >/= 65 years Risk Factors: >/= 3 Risk Factors or History of CAD Troponin: </= Normal Limit Score: 4 MDM MDM MDM Narrative Medical decision making narrative: Patient presents with GI and possible cardiac symptoms. EKG, appropriate laboratory studies were ordered as well as chest x- ray. Differential diagnosis includes angina, ND, non-STEMI, noncardiac chest pain, GI etiology versus pulmonary First troponin and delta troponin are normal. Creatinine on 02/18/2021 was 0.72. Patient has acute kidney injury due to poor p.o. intake. Will contact [facility] for admission. This may explain a lot of her symptoms. Bladder scan was ordered after discussing case with hospitalist. If there is evidence of urinary retention will Place [facility] otherwise patient will need additional work-up. Lab Data Attestation: I reviewed the patient's lab results. Lab results narrative: Patient has chronic anemia. The H&H is higher than baseline. Creatinine is elevated 4.66 with a GFR of 10. Glucose elevated 203 with a normal anion gap and CO2. BNP is normal. Labs: Laboratory Results - last 24 hr 02/23/21 02/23/21 02/23/21 10:07 10:07 10:07 WBC 7.9 RBC 3.91 L Hgb 10.9 L Hct 34.2 L MCV 87.5 MCH 27.9 MCHC 31.9 L RDW Std Deviation 45.7 H RDW Coeff of Tushar 14.4 Plt Count 304 MPV 12.2 H Immature Gran % (Auto) 0.400 Neut % (Auto) 61.9 Lymph % (Auto) 27.4 [place] % (Auto) 9.0 Eos % (Auto) 0.8 Baso % (Auto) 0.5 Absolute Neuts (auto) 4.9 Absolute Lymphs (auto) 2.17 Nucleated RBC % 0 Sodium 135 L Potassium 3.7 Chloride 100 Carbon Dioxide 26.0 Anion Gap 9 BUN 19 H Creatinine 4.66 H Estim Creat Clear Calc 12.55 Est GFR (MDRD) Af Amer 12 L Est GFR (MDRD) Non-Af 10 L BUN/Creatinine Ratio 4.1 L Glucose 203 H Calcium 9.8 Troponin I High Sens 10 B-Natriuretic Peptide 33.5 02/23/21 12:30 WBC RBC Hgb Hct MCV MCH MCHC RDW Std Deviation RDW Coeff of Tushar Plt Count MPV Immature Gran % (Auto) Neut % (Auto) Lymph % (Auto) [place] % (Auto) Eos % (Auto) Baso % (Auto) Absolute Neuts (auto) Absolute Lymphs (auto) Nucleated RBC % Sodium Potassium Chloride Carbon Dioxide Anion Gap BUN Creatinine Estim Creat Clear Calc Est GFR (MDRD) Af Amer Est GFR (MDRD) Non-Af BUN/Creatinine Ratio Glucose Calcium Troponin I High Sens 10 B-Natriuretic Peptide Radiography Chest X-Ray - ED: 1 View (Single view portable chest x-ray reveals chronic changes. Cardiac silhouette is unremarkable. There is mild chronic pulmonary changes noted. Osseous structures unremarkable. The hilum/mediastinum is unremarkable.) and Read by ED Physician Diagnostic Testing: Radiology Impression Chest X-Ray 02/23/21 10:34 IMPRESSION: Stable examination. No acute abnormalities. Electronically Signed: Tato Alexander MD at 11:16 EDT , Service support , Rhythm Strip Rhythm Strip: Sinus Rhythm Rate: 95 Ectopy: PAC(s) EKG Initial EKG: Attestation: I personally reviewed and interpreted this EKG as follows: Interpretation: Sinus Rhythm (Ventricular rate is 100. VT interval is 112. QRS duration is 72 ms. QT duration 348 ms. Jewett is normal. There are premature atrial beats noted.) Discharge Plan Dx/Rx/DC Orders Clinical Impression: TEODORO (acute kidney injury), Atypical chest pain Disposition Disposition: Acute Care Hospital [facility]
[2021-02-23 11:07] LABS: Absolute Lymphocyte Count 2.17 X10^3/uL (0.83-4.51); Absolute Neutrophil Count 4.9 X10^3/uL (2.0-7.7); Basophil# 0.04 X10^3/uL; Basophil% 0.5 % (0-1); Eosinophil# 0.06 X10^3/uL; Eosinophils% 0.8 % (0-5); Hematocrit 34.2 % (37-47); Hemoglobin 10.9 g/dL (12.0-15.0); Lymphocyte # 2.17 X10^3/ul (0.83-4.51); Lymphocyte % 27.4 % (19-41); Mean Corp Hgb Conc 31.9 g/dL (32-36); Mean Corpuscular Hgb 27.9 pg (27.0-32.0); Mean Corpuscular Volume 87.5 fL (81-99); Mean Platelet Vol. 12.2 fl (6.2-12.0); Monocyte# 0.71 X10^3/uL; NRBC Flagged by Analyzer 0 % (0-5); Neutrophil # 4.92 X10^3/uL (2.7-7.7); Neutrophil % 61.9 % (47-70); Platelet Count 304 K/mm3 (150-450); RBC Distribution Width CV 14.4 % (11.6-14.6); RBC Distribution Width SD 45.7 fl (35.1-43.9); Red Blood Count 3.91 M/mm3 (4.2-5.4); White Blood Count 7.9 K/mm3 (4.4-11.0)
--- NOTE | 2021-02-23 11:18 | ED.RN ---
AT 1113 PT RINGS CALL LIGHT AND C/O DIZZINESS. DR. WEAVER INFORMED. NO NEW ORDERS AT THIS TIME
[2021-02-23 11:24] LABS: Anion Gap 9 (5-15); BUN 19 mg/dL (7-18); BUN/Creat Ratio 4.1 RATIO (10-20); Calcium,Total 9.8 mg/dL (8.5-10.1); Chloride 100 mmol/L (98-107); Creatinine, Serum 4.66 mg/dL (0.55-1.02); EST Glomerular Filtration Rate 10 mL/min (>60); Est Glom Filt Rate - Afr Amer 12 mL/min (>60); Estimated Creatinine Clearance 12.55 ml/min; Glucose 203 mg/dL (74-106); Potassium 3.7 mmol/L (3.5-5.1); Sodium Level 135 mmol/L (136-145); Troponin-I HS 10 pg/mL (3.0-54.0)
[2021-02-23 11:27] LABS: BNP,B-Type NATRIURETIC PEPTIDE 33.5 pg/mL (0-100)
[2021-02-23 13:01] LABS: Troponin-I HS 10 pg/mL (3.0-54.0)
--- NOTE | 2021-02-23 14:15 | PCM.HP.STD ---
HPI - General General Date of Admission: 02/23/21 HPI Narrative Hold if glucose less than 130 mg/dl RISHABH HIGUERA, is a 70-year-old female who was brought by EMS for chest pain, vomiting since last night. Patient has protracted history of coronary artery disease/[place] 3 years ago with triple bypass and a stroke 2 years ago. Patient said he had chest pain all throughout last night along with vomiting. Denies shortness of breath, palpitation, near syncope or syncope. Twelve-lead EKG by EMS squad shows sinus tachycardia. In ED, after discussion with ER physician came to know that patient has poor oral intake for few days. Patient denies any decrease in urine output and she states he pees every 2-3 hours about 10 times per day. Creatinine found to be 4.66, was normal 0.72 on 02/18/2021. 2 troponins in ER negative. Twelve-lead EKG sinus rhythm with supraventricular complexes at 100 bpm. QTc 448 ms. Currently disease chest pain-free. Patient was recently admitted from 02/17-02/19 for UTI with bacteremia. Patient had COVID-19 [employer] vaccine on 02/17. Patient has history of recurrent UTI, more than 3 times per year and follows Dr. Kahn. Patient also she saw nephrology in [facility] many years ago, resion unclear. [facility] Medical History Anxiety Atherosclerosis of coronary artery of [place] heart without angina pectoris Chronic pain Diabetes Essential (primary) hypertension Former smoker History of CVA (cerebrovascular accident) (09/2014) History of non-ST elevation myocardial infarction (NSTEMI) (06/2018) Hyperlipidemia Overactive bladder Pancreatitis Sternum pain Tobacco abuse Home Medications aspirin 81 mg PO DAILY@0800 06/14/18 [History Last Taken 2 Days Ago ~02/21/21] cholecalciferol (vitamin D3) 3,000 unit PO DAILY@0800 06/14/18 [History Last Taken 2 Days Ago ~02/21/21] clopidogrel 75 mg PO DAILY #30 tab 06/19/18 [Rx Last Taken 2 Days Ago ~02/21/21] metoprolol tartrate 25 mg tablet 12.5 mg PO BID tab 07/10/19 [History Last Taken 2 Days Ago ~02/21/21] insulin glargine 22 units SC QHS 07/23/19 [History Last Taken 2 Days Ago ~02/21/21] insulin lispro 10 unit SC TIDCM 07/23/19 [History Last Taken 2 Days Ago ~02/21/21] buspirone 15 mg tablet 15 mg PO BID tab 07/10/20 [History Last Taken 2 Days Ago ~02/21/21] losartan 50 mg tablet 50 mg PO DAILY tab 07/10/20 [History Last Taken 2 Days Ago ~02/21/21] ciprofloxacin HCl [Cipro] 500 mg PO BID #14 tab 02/19/21 [Rx Last Taken 2 Days Ago ~02/21/21] cyanocobalamin (vitamin B-12) 1,000 mcg PO DAILY 02/23/21 [History Last Taken 2 Days Ago ~02/21/21] docusate sodium 100 mg PO BID 02/23/21 [History Last Taken 2 Days Ago ~02/21/21] omeprazole 40 mg PO BID 02/23/21 [History Last Taken 2 Days Ago ~02/21/21] pravastatin 40 mg PO QHS 02/23/21 [History Last Taken 2 Days Ago ~02/21/21] solifenacin 10 mg PO QHS 02/23/21 [History Last Taken 2 Days Ago ~02/21/21] Allergy/AdvReac Type Severity Reaction Status Date / Time codeine Allergy Swelling Verified 02/23/21 10:30 Penicillins Allergy Swelling Verified 02/23/21 10:30 Sulfa (Sulfonamide Allergy Swelling Verified 02/23/21 10:30 Antibiotics) diphenhydramine AdvReac Other Verified 02/23/21 10:30 [From Benadryl] metoclopramide [From Reglan] AdvReac Other Verified 02/23/21 10:30 tylenol AdvReac Other Uncoded 02/23/21 10:30 Surgical History H/O coronary artery bypass surgery (05/30/18) History of left heart catheterization (05/28/18) Social History household members: none Smoking Status: Former smoker alcohol intake: current alcohol intake frequency: holidays/special occasions only substance use type: does not use ROS ROS Narrative Constitutional: Reports fatigue and weakness HEENT: Reports systems reviewed and no addt'l complaints, except as documented Respiratory/Chest: As described in HPI Gastrointestinal: Persistent vomiting yesterday. Denies coffee ground emesis/hematochezia or melena Genitourinary: Burning micturition. Recurrent UTI. Musculoskeletal: Mild joint pain and limited range of motion Neurologic: Denies seizure-like activity skin: No ulcer. No rash Endocrinology: Reports systems reviewed and no addt'l complaints, except as documented Hematologic/Lymphatic: Reports systems reviewed and no addt'l complaints, except as documented Rest 12 ROS are negative except as mentioned in HPI Vital Signs Vital Signs Vital Signs: 02/23/21 10:22 02/23/21 10:31 02/23/21 10:39 Temperature 96.8 F L Temperature Source Oral Pulse Rate 97 95 Respiratory Rate 16 16 Respiratory Effort Short of Breath Respiratory Pattern Normal Blood Pressure 124/67 H 133/74 H Blood Pressure Mean 86 93 Pulse Ox 99 100 100 Oxygen Delivery Method Nasal Cannula Nasal Cannula Nasal Cannula Oxygen Flow Rate (L/min) 2 2 2 02/23/21 11:49 02/23/21 12:27 02/23/21 13:14 Temperature 98.4 F Temperature Source Oral Pulse Rate 71 68 72 Respiratory Rate 16 16 17 Respiratory Effort Respiratory Pattern Blood Pressure 144/86 H 141/65 H 137/92 H Blood Pressure Mean 105 90 107 Pulse Ox 100 100 100 Oxygen Delivery Method Room Air Nasal Cannula Oxygen Flow Rate (L/min) 2 02/23/21 13:49 02/23/21 14:06 Temperature 96.8 F L Temperature Source Axillary Pulse Rate 74 72 Respiratory Rate 14 18 Respiratory Effort Respiratory Pattern Blood Pressure 139/76 H 133/76 H Blood Pressure Mean 97 95 Pulse Ox 98 97 Oxygen Delivery Method Room Air Room Air Oxygen Flow Rate (L/min) Weight Weight: 158 lb 4.67 oz Body Mass Index (BMI) 31.9 Physical Exam Narrative General: Alert, Oriented x3, Cooperative HEENT: Atraumatic, PERRLA, EOMI, Normocephalic Oral: Oral mucosa dry. No Gingival or Mucosal Lesions/ Ulcerations Neck: Supple, No JVD, Negative Carotid Bruits Lungs: Status post CABG. Air entry diminished in bilateral lung bases. No crepitation/rhonchi Cardiovascular: Sinus rhythm normal S1, Normal S2, ESM over right second ICS. Abdomen: Bowel Sounds Present, Soft, Non Tender, Non-Distended : No renal angle tenderness. No suprapubic tenderness. Extremities: No edema, Capillary Refill Less than 3 Seconds Skin: No rashes, No breakdown Musculoskeletal: No Tenderness to Palpation of Joints or Extremities Neurological: Cranial nerves II-XII grossly intact, DTR 2+/4 and Symmetrical, Neuro grossly intact Psych/Mental Status: Normal Affect, Appropriate. Results Lab / Micro Data Result Diagrams: 02/23/21 10:07 02/23/21 10:07 Labs: Laboratory Results - last 24 hr 02/23/21 10:07: WBC 7.9, RBC 3.91 L, Hgb 10.9 L, Hct 34.2 L, MCV 87.5, MCH 27.9, MCHC 31.9 L, RDW Std Deviation 45.7 H, RDW Coeff of Tushar 14.4, Plt Count 304, MPV 12.2 H, Immature Gran % (Auto) 0.400, Neut % (Auto) 61.9, Lymph % (Auto) 27.4, [place] % (Auto) 9.0, Eos % (Auto) 0.8, Baso % (Auto) 0.5, Absolute Neuts (auto) 4.9, Absolute Lymphs (auto) 2.17, Nucleated RBC % 0 02/23/21 10:07: Sodium 135 L, Potassium 3.7, Chloride 100, Carbon Dioxide 26.0, Anion Gap 9, BUN 19 H, Creatinine 4.66 H, Estim Creat Clear Calc 12.55, Est GFR (MDRD) Af Amer 12 L, Est GFR (MDRD) Non-Af 10 L, BUN/Creatinine Ratio 4.1 L, Glucose 203 H, Calcium 9.8, Troponin I High Sens 10 02/23/21 10:07: B-Natriuretic Peptide 33.5 02/23/21 12:30: Troponin I High Sens 10 Rhythm Strip Rhythm Strip: Sinus Rhythm Rate: 95 Ectopy: PAC(s) Radiology Impression Chest X-Ray 02/23/21 10:34 IMPRESSION: Stable examination. No acute abnormalities. Electronically Signed: Tato Alexander MD at 11:16 EDT , Service support , Assessment & Plan Assessment/Plan (1) TEODORO (acute kidney injury): (2) Atypical chest pain: PLAN: This 70-year-old female is being admitted for atypical chest pain and TEODORO in PCU/cardiac telemetry. 1. Atypical chest pain: Patient previous EKG on 02/13/2021 shows sinus tach. Her current EKG does not show any acute change. 2 troponins are negative. Currently chest pain-free. JANET risk score 4. Cycle for cardiac enzymes. She had CABG in 2018. Her last echo in May 2018 shows EF 60% with a sclerotic aortic valve, trivial to mild MR. Repeat 2D echo. It seems patient had atypical chest pain during previous hospital and was found to be musculoskeletal. 2. Acute kidney injury probably prerenal with intractable nausea and vomiting with history of recurrent UTI: Patient was discharged on 1 week of Cipro on 02/19 after recent E. coli UTI with bacteremia. Continue Cipro. Consult speech and language tutor. German catheter ordered for strict intake and output measurement as patient history is limited and unreliable. 3. Diabetes mellitus type 2: On insulin. Continue home dose of insulin glargine with Accu-Chek before meals and at bedtime and cover with Humalog sliding scale. Insulin-dependent Will increase glargine back to 30 4. Coronary artery disease Status post CABG Continue with dual antiplatelet therapy 5 VTE prophylaxis: Heparin 5000 subtendinous twice daily. 6. Other comorbidities include history debility with fall just prior to last admission. Patient had J&J COVID-19 vaccine on 02/17. Living will/advanced directive/end of life care: Patient states he has living will/advanced directive. Her daughter in [place] is power of united [place] attorney for health. After discussion of benefits/risks procedures involved with full code, DNR CC arrest and DNR CC, the patient opted for full code. During previous hospital stay, she wanted CPR but not intubated/ventilated. Patient does want artificial life support including intubation, tube feed, ventilator and/chest compression, central venous catheter, vasopressor and DC shock if needed Charges/Coding Visit Charges Inpatient E&M: 60875 Init Hosp L3 Procedures Hospitalists Procedures: 48898 Advncd Care Plan 30 Min
--- NOTE | 2021-02-23 15:41 | US_ITS ---
STUDY: RENAL ULTRASOUND - COMPLETE REASON FOR EXAM: Female, 70 years old. [place] TECHNIQUE: Ultrasound evaluation of the kidneys was performed with real-time and static parsons-scale imaging. COMPARISON: CT 07/23/2020. FINDINGS: Partially visualize gallbladder sludge. RIGHT KIDNEY: Normal location of the right kidney, which is normal in size. The right kidney measures 8.7 x 5.3 cm. There is diffuse thinning of the renal cortex. The renal cortex measures 0.39 cm. Cortical cyst measures 21 x 19 mm and 9 x 8 mm. There are no right renal calculi. There is no right hydronephrosis. DISTAL RIGHT URETER: There is non-visualization of the distal right ureter. There is no demonstrated right ureterovesical junction calculus. There is a visualized right ureteral jet. LEFT KIDNEY: Normal location of the left kidney, which is normal in size. The left kidney measures 11.9 x 5.7 cm. There is diffuse thinning of the renal cortex. The renal cortex measures 0.72 cm. 3 cyst visualized. These measure 20 x 21 mm, 19 x 15 mm, and 21 x 21 mm. There are no left renal calculi. There is no left hydronephrosis. DISTAL LEFT URETER: There is non-visualization of the distal left ureter. There is no demonstrated left ureterovesical junction calculus. There is a visualized left ureteral jet. AORTA: There is obscuration of the abdominal aorta by overlying bowel gas I.V.C.: The IVC is obscured. BLADDER: There is a German balloon catheter in the urinary bladder. US/Kidney and Bladder IMPRESSION: Gallstones. Echogenic kidneys are suggestive of chronic medical renal disease. Simple appearing bilateral renal cysts. No follow-up required. Electronically Signed: Matthias Vences MD at 7:39 EDT , Service support ,
[2021-02-23 16:17] LABS: Magnesium 1.9 mg/dL (1.6-2.6)
[2021-02-23] MEDS: Ciprofloxacin 500 MG Tablet PO (17:08)
--- NOTE | 2021-02-23 17:13 | ECHOCS_ITS ---
Reason For Study: CHEST PAIN Procedure This was a 2D Doppler, Color Flow transthoracic echocardiogram. The study was technically difficult. Contrast injection was performed. Exam performed portable in patient room. Left Ventricle Normal LV size. Left ventricular systolic function is normal. The estimated ejection fraction is 60 %. Stage 2 diastolic dysfunction. No regional wall motion abnormalities noted. Right Ventricle Normal RV size. Normal systolic function. Atria Normal left atrium. Normal right atrium. Mitral Valve Normal mitral valve. Tricuspid Valve Normal tricuspid valve. Mild (1+) tricuspid valve insufficiency. Pulmonary artery systolic pressure is 40 mmHg. Aortic Valve Trisinus/trileaflet aortic valve. Mild focal aortic valve calcification. Peak aortic valve gradient 21 mmHg. Mean aortic valve gradient 12 mmHg. Pulmonic Valve The pulmonic valve is not well visualized. Great Vessels Normal aortic root. The pulmonary artery is normal size. Normal inferior vena cava. Pericardium/Pleural No pericardial effusion. MMode/2D Measurements & Calculations LVIDd: 3.8 cm IVSd: 1.0 cm LVOT diam: 2.0 cm LVIDs: 2.7 cm LVPWd: 1.00 cm LVOT area: 3.0 cm2 RVDd: 3.8 cm FS: 28.8 % Ao root diam: 3.5 cm LAV(MOD-bp): 48.3 ml LVAd ap4: 20.7 cm2 LAV(MOD-bp) Indexed: 29.5 ml/m2 LVLd ap4: 7.2 cm LAV(MOD-sp2): 55.3 ml EDV(MOD-sp4): 50.3 ml LAV(MOD-sp4): 40.3 ml EDV(sp4-el): 50.8 ml LVAs ap4: 14.3 cm2 LVLs ap4: 6.3 cm ESV(MOD-sp4): 27.9 ml ESV(sp4-el): 27.5 ml EF(MOD-sp4): 44.4 % EF(sp4-el): 45.9 % LVAd ap2: 25.1 cm2 SV(MOD-sp4): 22.3 ml SV(MOD-sp2): 43.6 ml LVLd ap2: 7.0 cm EDV(MOD-sp2): 71.7 ml EDV(sp2-el): 76.4 ml LVAs ap2: 13.9 cm2 LVLs ap2: 6.1 cm ESV(MOD-sp2): 28.1 ml ESV(sp2-el): 27.1 ml EF(MOD-sp2): 60.8 % SV(sp4-el): 23.3 ml LA dimension(2D): 4.2 cm LA A4 area: 16.0 cm2 RA A4 area: 12.3 cm2 Doppler Measurements & Calculations MV E max amari: 108.8 cm/sec Lat Peak E' Amari: 14.0 cm/sec Med Peak E' Amari: 5.2 cm/sec MV A max amari: 76.7 cm/sec E/E' lat: 7.8 E/E' med: 20.8 MV E/A: 1.4 Ao V2 max: 230.3 cm/sec LV V1 max: 112.8 cm/sec SV(LVOT): 62.8 ml Ao max P.3 mmHg LV V1 max P.1 mmHg Ao V2 mean: 167.3 cm/sec LV V1 mean P.5 mmHg Ao mean P.1 mmHg LV V1 mean: 74.1 cm/sec Ao V2 VTI: 45.3 cm LV V1 VTI: 20.7 cm PJ(I,D): 1.4 cm2 PJ(V,D): 1.5 cm2 PA V2 max: 74.9 cm/sec TR max amari: 302.2 cm/sec TR max P.5 mmHg ECHO/Echo Complete W/ Contrast Interpretation Summary Normal LV size. Left ventricular systolic function is normal. The estimated ejection fraction is 60 %. Stage 2 diastolic dysfunction. Pulmonary artery systolic pressure is 40 mmHg. Contrast injection was performed. Ordering Physician: Devyn Grigsby Referring Physician: VIKA CHRISTENSEN Performed By: Kiki Kramer, RDCS, RVT
--- NOTE | 2021-02-23 17:13 | EKG12_ITS ---
Test Reason : CP ADMIT Blood Pressure : / mmHG Vent. Rate : 099 BPM Atrial Rate : 099 BPM P-R Int : 116 ms QRS Dur : 072 ms QT Int : 348 ms P-R-T Axes : 082 029 054 degrees QTc Int : 446 ms Sinus rhythm with Premature atrial complexes Otherwise normal ECG When compared with ECG of 13-FEB-2021 13:38, Premature atrial complexes are now Present Confirmed by BELINDA MCMANUS, NATALIA ([id number]), managing editor EZEKIEL POLANCO ([id number]) on 02/25/2021 1:51:38 PM Referred By: KASIA Confirmed By:NATALIA TREVINO MD
[2021-02-23 17:16] LABS: Bedside Glucose 197 mg/dL (70-110)
[2021-02-23] MEDS: 0.9% Normal Saline 1,000 ML 150 ML IV (17:32)
[2021-02-23] MEDS: Insulin Lispro 100 UNIT/ML INSULN.PEN 8 UNIT SC (17:34)
[2021-02-23 19:44] LABS: Troponin-I HS 10 pg/mL (3.0-54.0)
[2021-02-23] MEDS: Metoprolol Tartrate 25 MG Tablet 12.5 MG PO (22:09)
[2021-02-23] MEDS: Heparin Injection (Vial) 5,000 UNIT/ML VIAL 5000 UNIT SC (22:16)
[2021-02-23] MEDS: busPIRone 15 MG TABLET PO (22:16)
[2021-02-23] MEDS: Pantoprazole Sodium 40 MG Tablet PO (22:17)
[2021-02-23] MEDS: Pravastatin 40 MG Tablet PO (22:17)
[2021-02-23] MEDS: Ondansetron 4 MG/2 ML Vial IV (22:18)
[2021-02-23] MEDS: Insulin Lispro 100 UNIT/ML INSULN.PEN SC (22:29)
[2021-02-23] MEDS: Senna/Docusate Sodium 1 Tablet 2 TABLET PO (22:31)
[2021-02-23 22:55] LABS: Bedside Glucose 151 mg/dL (70-110)
[2021-02-24] VITALS (14 sets, daily range): BP systolic 128–157; BP diastolic 54–73; PULSE 59–85; RESP 14–18; TEMP 36.5–36.8; O2SAT 97–99
[2021-02-24] MEDS: 0.9% Normal Saline 1,000 ML 150 ML IV (00:10)
--- NOTE | 2021-02-24 01:34 | PCS.PANDOC ---
PANDEMIC DOCUMENTATION INITIATED: Date: 01/18/2021 Time: 190
[2021-02-24 06:37] LABS: Absolute Neutrophil Count 3.7 X10^3/uL (2.0-7.7); Basophil# 0.04 X10^3/uL; Basophil% 0.7 % (0-1); Eosinophil# 0.09 X10^3/uL; Eosinophils% 1.5 % (0-5); Hematocrit 29.1 % (37-47); Hemoglobin 9.2 g/dL (12.0-15.0); Lymphocyte % 27.9 % (19-41); Mean Corp Hgb Conc 31.6 g/dL (32-36); Mean Corpuscular Hgb 27.9 pg (27.0-32.0); Mean Corpuscular Volume 88.2 fL (81-99); Mean Platelet Vol. 11.8 fl (6.2-12.0); Monocyte% 9.8 % (0-10); NRBC Flagged by Analyzer 0 % (0-5); Neutrophil # 3.65 X10^3/uL (2.7-7.7); Neutrophil % 59.8 % (47-70); Platelet Count 253 K/mm3 (150-450); RBC Distribution Width CV 14.6 % (11.6-14.6); RBC Distribution Width SD 46.4 fl (35.1-43.9); White Blood Count 6.1 K/mm3 (4.4-11.0)
[2021-02-24 07:11] LABS: Anion Gap 6 (5-15); BUN 19 mg/dL (7-18); BUN/Creat Ratio 3.7 RATIO (10-20); Chloride 112 mmol/L (98-107); Cholesterol 122 mg/dL (200); EST Glomerular Filtration Rate 9 mL/min (>60); Est Glom Filt Rate - Afr Amer 11 mL/min (>60); Estimated Creatinine Clearance 10.73 ml/min; Glucose 110 mg/dL (74-106); High Density Lipoprotein 23 mg/dL; Phosphorus 4.2 mg/dL (2.5-4.9); Potassium 4.1 mmol/L (3.5-5.1); Sodium Level 143 mmol/L (136-145); Triglycerides 138 mg/dL; Very Low Density Lipoprotein 28 mg/dL (5-40)
[2021-02-24] MEDS: Psyllium 1 PACKET PO (08:18)
[2021-02-24] MEDS: busPIRone 15 MG TABLET PO ×2 (08:19→21:14)
[2021-02-24] MEDS: Cyanocobalamin 500 MCG Tablet 1000 MCG PO (08:19)
[2021-02-24] MEDS: Metoprolol Tartrate 25 MG Tablet 12.5 MG PO ×2 (08:19→21:13)
[2021-02-24] MEDS: Pantoprazole Sodium 40 MG Tablet PO ×2 (08:19→21:13)
[2021-02-24] MEDS: Tolterodine Tartrate 4 MG CAP.SA PO (08:19)
[2021-02-24] MEDS: Clopidogrel Bisulfate 75 MG Tablet PO (08:19)
[2021-02-24] MEDS: Cholecalciferol (VIT D3) 25 MCG TABLET (1,000 UNITS) 75 MCG PO (08:21)
[2021-02-24] MEDS: Ciprofloxacin 500 MG Tablet PO (08:21)
[2021-02-24] MEDS: Aspirin E.C. 81 MG Tablet PO (08:21)
[2021-02-24] MEDS: Heparin Injection (Vial) 5,000 UNIT/ML VIAL 5000 UNIT SC ×2 (08:23→21:15)
[2021-02-24] MEDS: Insulin Lispro 100 UNIT/ML INSULN.PEN 8 UNIT SC ×3 (08:23→16:31)
[2021-02-24 08:41] LABS: Bedside Glucose 117 mg/dL (70-110)
[2021-02-24 11:51] LABS: Bedside Glucose 134 mg/dL (70-110)
--- NOTE | 2021-02-24 15:00 | CON.PCM.RE_ITS ---
Assessment & Plan Assessment/Plan (1) TEODORO (acute kidney injury): (2) Atypical chest pain: (3) Bacteremia: (4) Hypertension: PLAN: Patient has nonoliguric hypovolemic acute kidney injury possibly from recent E. coli UTI/bacteremia, poor oral intake with nausea and vomiting, hemodynamic changes with concurrent ARB use. She has normal baseline creatinine. Creatinine on admission 4.66 mg/dL and today creatinine is 5.20 mg/dL. At this time there is no acute indication for TECHNICIAN'S HELPER. Potassium and acid- base acceptable. Patient appears to be hypovolemic and recommend continue with IV fluids after patient receives bolus. Patient does not need renal diet restrictions. Recommend to continue holding losartan; blood pressure acceptable on metoprolol. Patient has German, recommend strict I/O. Renal ultrasound did not show any hydronephrosis, echogenic kidneys suggestive of chronic medical renal disease, simple appearing bilateral renal cysts. We will check urinalysis, urine sodium and urine creatinine. Further orders forthcoming as hospitalization evolves. HPI Consult Data Date of Consult: 02/24/21 HPI Narrative HPI Narrative: RISHABH HIGUERA, is a 70 F who presents to the emergency room yesterday with complaints of nausea, vomiting, decreased oral intake, and chest pain. Patient has a past medical history significant for hypertension, coronary artery disease status post coronary artery bypass graft surgery, recurrent UTIs, diabetes mellitus type 2. She was admitted for TEODORO and atypical chest pain. We were consulted for acute kidney injury. 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 Lab work yesterday creatinine 4.66 mg/dL, creatinine today 5.20 mg/dL. On 02/18/2021 patient's creatinine 0.72 mg/dL. Patient was discharged from the hospital on 02/19 where she was admitted for acute cystitis, UTI and bacteremia. She was discharged home on Cipro. Patient denies any recent NSAID use. Patient reports appetite has been very poor, she complains of dry mouth. [facility] Medical History Anxiety Atherosclerosis of coronary artery of [place] heart without angina pectoris Chronic pain Diabetes Essential (primary) hypertension Former smoker History of CVA (cerebrovascular accident) (09/2014) History of non-ST elevation myocardial infarction (NSTEMI) (06/2018) Hyperlipidemia Overactive bladder Pancreatitis Sternum pain Tobacco abuse Home Medications aspirin 81 mg PO DAILY@0800 06/14/18 [History Last Taken 2 Days Ago ~02/21/21] cholecalciferol (vitamin D3) 3,000 unit PO DAILY@0800 06/14/18 [History Last Taken 2 Days Ago ~02/21/21] clopidogrel 75 mg PO DAILY #30 tab 06/19/18 [Rx Last Taken 2 Days Ago ~02/21/21] metoprolol tartrate 25 mg tablet 12.5 mg PO BID tab 07/10/19 [History Last Taken 2 Days Ago ~02/21/21] insulin glargine 22 units SC QHS 07/23/19 [History Last Taken 2 Days Ago ~02/21/21] insulin lispro 10 unit SC TIDCM 07/23/19 [History Last Taken 2 Days Ago ~02/21/21] buspirone 15 mg tablet 15 mg PO BID tab 07/10/20 [History Last Taken 2 Days Ago ~02/21/21] losartan 50 mg tablet 50 mg PO DAILY tab 07/10/20 [History Last Taken 2 Days Ago ~02/21/21] ciprofloxacin HCl [Cipro] 500 mg PO BID #14 tab 02/19/21 [Rx Last Taken 2 Days Ago ~02/21/21] cyanocobalamin (vitamin B-12) 1,000 mcg PO DAILY 02/23/21 [History Last Taken 2 Days Ago ~02/21/21] docusate sodium 100 mg PO BID 02/23/21 [History Last Taken 2 Days Ago ~02/21/21] omeprazole 40 mg PO BID 02/23/21 [History Last Taken 2 Days Ago ~02/21/21] pravastatin 40 mg PO QHS 02/23/21 [History Last Taken 2 Days Ago ~02/21/21] solifenacin 10 mg PO QHS 02/23/21 [History Last Taken 2 Days Ago ~02/21/21] Allergy/AdvReac Type Severity Reaction Status Date / Time codeine Allergy Swelling Verified 02/23/21 10:30 Penicillins Allergy Swelling Verified 02/23/21 10:30 Sulfa (Sulfonamide Allergy Swelling Verified 02/23/21 10:30 Antibiotics) diphenhydramine AdvReac Other Verified 02/23/21 10:30 [From Benadryl] metoclopramide [From Reglan] AdvReac Other Verified 02/23/21 10:30 tylenol AdvReac Other Uncoded 02/23/21 10:30 Surgical History H/O coronary artery bypass surgery (05/30/18) History of left heart catheterization (05/28/18) Social History household members: none Smoking Status: Former smoker alcohol intake: current alcohol intake frequency: holidays/special occasions only substance use type: does not use ROS ROS Narrative 10 systems reviewed pertinent positives and negatives as HPI and past medical history Physical Exam Const alert, oriented x3 and no apparent distress General Appearance: cooperative and comfortable HEENT normocephalic Mouth: dry mucous membranes Resp normal respiratory effort, normal air movement and clear to auscultation bilaterally Cardio regular rate Cardio Narrative: No edema Narrative: Indwelling German with clear urine in bag Lab / Micro Data Result Diagrams: 02/24/21 06:15 02/24/21 06:15 Labs: Laboratory Results - last 24 hr 02/23/21 12:30: Magnesium 1.9 02/23/21 17:03: POC Glucose 197 H 02/23/21 19:09: Troponin I High Sens 10 02/23/21 22:02: POC Glucose 151 H 02/24/21 06:15: WBC 6.1, RBC 3.30 L, Hgb 9.2 L, Hct 29.1 L, MCV 88.2, MCH 27.9, MCHC 31.6 L, RDW Std Deviation 46.4 H, RDW Coeff of Tushar 14.6, Plt Count 253, MPV 11.8, Immature Gran % (Auto) 0.300, Neut % (Auto) 59.8, Lymph % (Auto) 27.9, [place] % (Auto) 9.8, Eos % (Auto) 1.5, Baso % (Auto) 0.7, Absolute Neuts (auto) 3.7, Absolute Lymphs (auto) 1.70, Nucleated RBC % 0 02/24/21 06:15: Sodium 143, Potassium 4.1, Chloride 112 H, Carbon Dioxide 25.0, Anion Gap 6, BUN 19 H, Creatinine 5.20 H, Estim Creat Clear Calc 10.73, Est GFR (MDRD) Af Amer 11 L, Est GFR (MDRD) Non-Af 9 L, BUN/Creatinine Ratio 3.7 L, Glucose 110 H, Calcium 8.0 L, Phosphorus 4.2, Triglycerides 138, Cholesterol 122, LDL Cholesterol 71, VLDL Cholesterol 28, HDL Cholesterol 23 L 02/24/21 08:14: POC Glucose 117 H 02/24/21 11:27: POC Glucose 134 H Rhythm Strip Rhythm Strip: Sinus Rhythm Rate: 95 Ectopy: PAC(s) Radiology Impression Chest X-Ray 02/23/21 10:34 IMPRESSION: Stable examination. No acute abnormalities. Electronically Signed: Tato Alexander MD at 11:16 EDT , Service support , Renal Ultrasound 02/23/21 15:41 IMPRESSION: Gallstones. Echogenic kidneys are suggestive of chronic medical renal disease. Simple appearing bilateral renal cysts. No follow-up required. Electronically Signed: Matthias Vences MD at 7:39 EDT , Service support ,
--- NOTE | 2021-02-24 15:09 | CHAPLAIN ---
Type of Pastoral Visit _x__ Initial Visit ___ Follow-up Visit ___ On-call Visit ___ General Patient Visit ___ Spiritual Assessment ___ Family Conference ___ Bereavement ___ Rapid Response ___ Code Blue ___ Other (describe below) Pastoral Care Referral From _x__ Patient ___ Family ___ Nurse ___ Physician ___ Shallot Cleaner ___ Supervisor Boarding ___ Other (describe below) Sacrament/Intervention _x__ Active listening ___ Anointing ___ Restoration ___ Bereavement ___ Communion ___ [place] exploration ___ _x__ Life review ___ Prayer ___ Reconciliation ___ Sacrament of Sick _x__ Supportive presence ___ Wedding ___ Other (describe below) Pastoral Comments patient would like some reading materials and so the same was found and given to her; pt speaks of being disappointed that she went home and then had to return to hospital; supportive listening and presence
--- NOTE | 2021-02-24 15:25 | CASEMGMT ---
Readmission chart review: 02/17-02/19/21 UTI, debility 02/23/21-current TEODORO w/atypical CP Pt was admitted to [facility] on 02/17/21 for chest congestion and UTI. See RN CM assessment completed by Tony APONTE CM on 02/18/21. Pt was discharged home on 02/19/21 w/ [facility] but start of care was not done as pt returned to ED on 02/23/21 for left sternal CP and SOB. Pt admitted to PCU for TEODORO w/ atypical CP and troponins are negative. CM to follow PT/OT notes and for any further discharge planning/needs. [place] [facility]
[2021-02-24] MEDS: 0.9% Normal Saline 1,000 ML 75 ML IV (15:49)
[2021-02-24 16:41] LABS: Bedside Glucose 123 mg/dL (70-110)
[2021-02-24] MEDS: Ondansetron 4 MG/2 ML Vial IV (18:59)
--- NOTE | 2021-02-24 19:21 | PCM.PN.HOSP ---
Subjective Subjective Patient was seen and examined today, she was admitted yesterday due to elevated creatinine, I talked briefly with nephrology today, they felt that the patient was dehydrated and had acute kidney injury secondary to this, they stated that patient needed administration of fluids and monitoring of serum creatinine. Objective Data Objective Data Vital Signs: Vital Signs Temp Pulse Resp BP Pulse Ox 97.8 F 77 18 149/70 H 99 02/24/21 14:34 02/24/21 15:00 02/24/21 14:34 02/24/21 14:34 02/24/21 14:34 Oxygen Flow Rate (L/min) 2 Oxygen Delivery Method Room Air Weight: 68.492 kg Body Mass Index (BMI) 30.4 Intake & Output: Intake and Output for Last 24 Hours 02/22/21 02/23/21 02/24/21 23:59 23:59 23:59 Intake Total 120 / 320 2828.33 / 2828.33 Output Total 850 / 850 Balance 120 / 320 1977.33 / 1977.33 Lab / Micro Data Result Diagrams: 02/24/21 06:15 02/24/21 06:15 Labs: Laboratory Results - last 24 hr 02/23/21 19:09: Troponin I High Sens 10 02/23/21 22:02: POC Glucose 151 H 02/24/21 06:15: WBC 6.1, RBC 3.30 L, Hgb 9.2 L, Hct 29.1 L, MCV 88.2, MCH 27.9, MCHC 31.6 L, RDW Std Deviation 46.4 H, RDW Coeff of Tushar 14.6, Plt Count 253, MPV 11.8, Immature Gran % (Auto) 0.300, Neut % (Auto) 59.8, Lymph % (Auto) 27.9, [place] % (Auto) 9.8, Eos % (Auto) 1.5, Baso % (Auto) 0.7, Absolute Neuts (auto) 3.7, Absolute Lymphs (auto) 1.70, Nucleated RBC % 0 02/24/21 06:15: Sodium 143, Potassium 4.1, Chloride 112 H, Carbon Dioxide 25.0, Anion Gap 6, BUN 19 H, Creatinine 5.20 H, Estim Creat Clear Calc 10.73, Est GFR (MDRD) Af Amer 11 L, Est GFR (MDRD) Non-Af 9 L, BUN/Creatinine Ratio 3.7 L, Glucose 110 H, Calcium 8.0 L, Phosphorus 4.2, Triglycerides 138, Cholesterol 122, LDL Cholesterol 71, VLDL Cholesterol 28, HDL Cholesterol 23 L 02/24/21 08:14: POC Glucose 117 H 02/24/21 11:27: POC Glucose 134 H 02/24/21 16:29: POC Glucose 123 H Radiography Diagnostic Testing: Radiology Impression Chest X-Ray 02/23/21 10:34 IMPRESSION: Stable examination. No acute abnormalities. Electronically Signed: Tato Alexander MD at 11:16 EDT , Service support , Renal Ultrasound 02/23/21 15:41 IMPRESSION: Gallstones. Echogenic kidneys are suggestive of chronic medical renal disease. Simple appearing bilateral renal cysts. No follow-up required. Electronically Signed: Matthias Vences MD at 7:39 EDT , Service support , Echocardiogram 02/23/21 17:13 Interpretation Summary Normal LV size. Left ventricular systolic function is normal. The estimated ejection fraction is 60 %. Stage 2 diastolic dysfunction. Pulmonary artery systolic pressure is 40 mmHg. Contrast injection was performed. Ordering Physician: Devyn Grigsby Referring Physician: VIKA CHRISTENSEN Performed By: Kiki Kramer, RDCS, RVT Rhythm Strip Rhythm Strip: Sinus Rhythm Rate: 95 Ectopy: PAC(s) Physical Exam Const alert, oriented x3 and no apparent distress General Appearance: cooperative, well kempt and well developed Orientation / Consciousness: awake, oriented to person, oriented to place and oriented to time HEENT normocephalic and head/scalp atraumatic Head and Scalp: normocephalic Mouth: dry mucous membranes Eyes PERRL, EOMs intact bilaterally and conjunctivae normal Neck nuchal rigidity, supple, no JVD, thyroid normal and no carotid bruits General: trachea midline Resp normal respiratory effort, no retractions, no use of accessory muscles and clear to auscultation bilaterally Auscultation: Negative for rales, rhonchi or wheezes Cardio regular rate, regular rhythm, S1 normal heart sound, S2 normal heart sound, no murmurs, no rub and no gallops GI normal to inspection, nondistended, normoactive bowel sounds, soft to palpation, non-tender and non-distended Extremity no clubbing, cyanosis or edema Skin no rashes or lesions noted General Skin Exam: no breakdown Neuro oriented x3, CN's II-XII intact bilaterally, no focal motor deficits and no sensory deficits noted Sensorium / Orientation: awake and alert Speech: speech normal Psych thought process normal Psych Narrative: Patient has flat affect Assessment & Plan Assessment/Plan (1) TEODORO (acute kidney injury): PLAN: 1. Acute kidney injury-continue IV fluid administration under direction of nephrology #2 musculoskeletal chest pain, patient's echocardiogram today showed a normal ejection fraction #3 type 2 diabetes #4 coronary artery disease #5 essential hypertension #6 hyperlipidemia #7 cerebrovascular disease #8 anemia-etiology unclear, serum iron and TIBC will be ordered Charges/Coding Visit Charges Inpatient E&M: 69386 Subs Hosp L2
[2021-02-24] MEDS: Pravastatin 40 MG Tablet PO (21:14)
[2021-02-24] MEDS: Insulin Lispro 100 UNIT/ML INSULN.PEN SC (21:15)
[2021-02-24 22:00] LABS: Bedside Glucose 194 mg/dL (70-110)
[2021-02-24 22:51] LABS: Mucous, Urine 0 SEEN /hpf (<or=2+); Squamous Epithelial Cells - UA 0 SEEN /hpf (5-10)
[2021-02-24 22:56] LABS: Glucose, Dipstick 50 mg/dl (Normal); Ketone-Dipstick Negative (Negative); Leukocyte Esterase-Dipstick 500 /ul (Negative); Nitrite-Dipstick Negative (Negative); Occult Blood-Urine 250 /ul (Negative); Protein-Dipstick 30 mg/dl (Negative); Urine Bilirubin Dipstick Negative (Negative); Urine Urobilinogen Normal (Normal); Urine pH 6.5 (5.0 - 8.0)
[2021-02-24 23:01] LABS: Color, Urine Yellow (Yellow)
[2021-02-24 23:02] LABS: Urine Clarity Sl Cloudy (Clear)
[2021-02-24 23:06] LABS: Bacteria 1+ /hpf (None Seen); Red Blood Cells-Urine 5-10 SEEN /hpf (0-5); White Blood Cells 50-100 SEEN /hpf (0-5); Yeast-Urine RARE /hpf (None Seen)
[2021-02-24 23:10] LABS: Urine Sodium 66 mmol/L (Not Establ.)
[2021-02-25] VITALS (13 sets, daily range): BP systolic 128–153; BP diastolic 50–72; PULSE 63–105; RESP 17–18; TEMP 36.4–36.8; O2SAT 95–100
[2021-02-25] MEDS: oxyCODONE 5 MG Tablet PO (01:41)
[2021-02-25] MEDS: Ciprofloxacin 500 MG Tablet PO ×2 (03:02→21:24)
[2021-02-25] MEDS: 0.9% Normal Saline 1,000 ML 75 ML IV ×2 (03:54→16:01)
[2021-02-25 06:34] LABS: Anion Gap 5 (5-15); BUN 21 mg/dL (7-18); BUN/Creat Ratio 3.7 RATIO (10-20); Calcium,Total 7.8 mg/dL (8.5-10.1); Chloride 112 mmol/L (98-107); Creatinine, Serum 5.68 mg/dL (0.55-1.02); EST Glomerular Filtration Rate 8 mL/min (>60); Est Glom Filt Rate - Afr Amer 10 mL/min (>60); Estimated Creatinine Clearance 9.82 ml/min; Glucose 242 mg/dL (74-106); Iron 49 ug/dL (50-170); Iron Binding Capacity,Total 148 ug/dL (250-450); PERCENT IRON SATURATION 33.1 % (15.0-55.0); Potassium 4.4 mmol/L (3.5-5.1); Sodium Level 139 mmol/L (136-145)
[2021-02-25] MEDS: Insulin Lispro 100 UNIT/ML INSULN.PEN 8 UNIT SC (08:16)
[2021-02-25] MEDS: Insulin Lispro 100 UNIT/ML INSULN.PEN SC ×2 (08:16→21:36)
[2021-02-25] MEDS: Aspirin E.C. 81 MG Tablet PO (08:17)
[2021-02-25] MEDS: Cyanocobalamin 500 MCG Tablet 1000 MCG PO (08:17)
[2021-02-25] MEDS: Tolterodine Tartrate 4 MG CAP.SA PO (08:17)
[2021-02-25] MEDS: Cholecalciferol (VIT D3) 25 MCG TABLET (1,000 UNITS) 75 MCG PO (08:17)
[2021-02-25] MEDS: busPIRone 15 MG TABLET PO ×2 (08:17→21:23)
[2021-02-25] MEDS: Metoprolol Tartrate 25 MG Tablet 12.5 MG PO ×2 (08:18→21:24)
[2021-02-25] MEDS: Pantoprazole Sodium 40 MG Tablet PO ×2 (08:18→21:23)
[2021-02-25] MEDS: Psyllium 1 PACKET PO (08:18)
[2021-02-25] MEDS: Clopidogrel Bisulfate 75 MG Tablet PO (08:19)
[2021-02-25] MEDS: Heparin Injection (Vial) 5,000 UNIT/ML VIAL 5000 UNIT SC ×2 (08:19→21:28)
[2021-02-25 08:31] LABS: Bedside Glucose 202 mg/dL (70-110)
[2021-02-25 11:36] LABS: Bedside Glucose 71 mg/dL (70-110)
[2021-02-25 12:21] LABS: Bedside Glucose 85 mg/dL (70-110)
[2021-02-25] MEDS: Ondansetron 4 MG/2 ML Vial IV (13:28)
--- NOTE | 2021-02-25 14:35 | PN.RENAL_ITS ---
Subjective Subjective Patient resting in bed. Complains of nausea without vomiting. Denies diarrhea. Complains of difficulty sleeping last night, feeling tired today Objective Data Objective Data Vital Signs: Vital Signs Temp Pulse Resp BP Pulse Ox 97.5 F L 66 18 137/65 H 98 02/25/21 14:00 02/25/21 14:00 02/25/21 14:00 02/25/21 14:00 02/25/21 14:00 Oxygen Flow Rate (L/min) 2 Oxygen Delivery Method Room Air Weight: 68.492 kg Body Mass Index (BMI) 30.4 Intake & Output: Intake and Output for Last 24 Hours 02/23/21 02/24/21 02/25/21 23:59 23:59 23:59 Intake Total 120 / 320 3560.83 / 3560.83 653.75 / 653.75 Output Total 1050 / 1050 700 / 700 Balance 120 / 320 2510.83 / 2510.83 -46.25 / -46.25 Lab / Micro Data Result Diagrams: 02/24/21 06:15 02/25/21 05:24 Labs: Laboratory Results - last 24 hr 02/24/21 16:29: POC Glucose 123 H 02/24/21 21:08: POC Glucose 194 H 02/24/21 22:43: Urine Color Yellow, Urine Clarity Sl Cloudy, Urine pH 6.5, Ur Specific [place] 1.010, Urine Protein 30 H, Urine Glucose (UA) 50 H, Urine Ketones Negative, Urine Occult Blood 250 H, Urine Nitrite Negative, Urine Bilirubin Negative, Urine Urobilinogen Normal, Ur Leukocyte Esterase 500 H, Urine RBC 5-10 SEEN, Urine WBC 50-100 SEEN, Ur Squamous Epith Cells 0 SEEN, Urine Bacteria 1+, Urine Mucus 0 SEEN, Urine Yeast RARE 02/24/21 22:43: Ur Random Sodium 66, Urine Creatinine 32.80 02/25/21 05:24: Sodium 139, Potassium 4.4, Chloride 112 H, Carbon Dioxide 22.0, Anion Gap 5, BUN 21 H, Creatinine 5.68 H, Estim Creat Clear Calc 9.82, Est GFR (MDRD) Af Amer 10 L, Est GFR (MDRD) Non-Af 8 L, BUN/Creatinine Ratio 3.7 L, Glucose 242 H, Calcium 7.8 L, Iron 49 L, TIBC 148 L, Iron Saturation 33.1 02/25/21 08:15: POC Glucose 202 H 02/25/21 11:16: POC Glucose 71 02/25/21 12:16: POC Glucose 85 Radiography Diagnostic Testing: Radiology Impression Echocardiogram 02/23/21 17:13 Interpretation Summary Normal LV size. Left ventricular systolic function is normal. The estimated ejection fraction is 60 %. Stage 2 diastolic dysfunction. Pulmonary artery systolic pressure is 40 mmHg. Contrast injection was performed. Ordering Physician: Devyn Grigsby Referring Physician: VIKA CHRISTENSEN Performed By: Kiki Kramer, SUNITA, RVT Rhythm Strip Rhythm Strip: Sinus Rhythm Rate: 95 Ectopy: PAC(s) Physical Exam Const alert, oriented x3 and no apparent distress General Appearance: cooperative and comfortable HEENT normocephalic Resp normal respiratory effort, normal air movement and clear to auscultation bilaterally Cardio regular rate Cardio Narrative: No edema Narrative: Indwelling German with clear urine in bag Assessment & Plan Assessment/Plan (1) TEODORO (acute kidney injury): (2) Atypical chest pain: (3) Bacteremia: (4) Hypertension: PLAN: Patient has nonoliguric hypovolemic acute kidney injury possibly from recent E. coli UTI/bacteremia, poor oral intake with nausea and vomiting, hemodynamic changes with concurrent ARB use. She has normal baseline creatinine. Creatinine on admission 4.66 mg/dL --> 5.20 mg/dL, and today creatinine 5.68 mg/dL. Fortunately patient is nonoliguric. She does have some mild uremic symptoms, potassium acid-base acceptable, there is no acute indication for CELL TUBER HAND. Patient appears to be hypovolemic and recommend continue with IV fluids, will increase rate today (ECHO reviewed). Patient does not need renal diet restrictions. Recommend to continue holding losartan. Patient has German, recommend strict I/O. Renal ultrasound did not show any hydronephrosis, echogenic kidneys suggestive of chronic medical renal disease, simple appearing bilateral renal cysts. Urine sodium 66, urine creatinine 32. UA 30 protein, 250 occult blood, +hyaline casts. Patient has been nauseated and is receiving Zofran as needed. Encouraged patient to increase oral intake as best as she can. She does not need any dietary restrictions at this time Blood pressure is acceptable on toprol recent UTI/bacteremia on oral cipro Discussed with patient at this time there is no acute indication for CELL TUBER HAND but if renal function worsens, urine output declines, potassium and acid-base worsen she may need CELL TUBER HAND. Patient voiced understanding. Questions answered. Labs ordered for a.m. Discussed with primary team
--- NOTE | 2021-02-25 15:50 | CASEMGMT ---
FADI CHILEL NOTE: FADI CHILEL spoke w/pt @ bedside. Pt states she wishes to return home @ discharge and wishes to have [facility] HHC, as was previously set up after last admission. Order placed for HHC: SN, PT/OT, and SW. Kisha LOWN FADI CHILEL
[2021-02-25 17:16] LABS: Bedside Glucose 133 mg/dL (70-110)
--- NOTE | 2021-02-25 17:28 | PCM.PN.HOSP ---
Documented by User: Maggie Arroyo NP, SPORTS PHOTOGRAPHER-C 02/25/21 17:39 Subjective Subjective Patient seen and examined. Reports she did not sleep well last night. Complains of general malaise. Denies nausea, vomiting. Denies other symptoms or complaints. Objective Data Objective Data Vital Signs: Vital Signs Temp Pulse Resp BP Pulse Ox 97.5 F L 67 18 137/65 H 98 02/25/21 14:00 02/25/21 15:00 02/25/21 14:00 02/25/21 14:00 02/25/21 14:00 Oxygen Flow Rate (L/min) 2 Oxygen Delivery Method Room Air Weight: 151 lb Body Mass Index (BMI) 30.4 Intake & Output: Intake and Output for Last 24 Hours 02/23/21 02/24/21 02/25/21 23:59 23:59 23:59 Intake Total 120 / 320 3560.83 / 3560.83 1562.50 / 1562.50 Output Total 1050 / 1050 700 / 700 Balance 120 / 320 2510.83 / 2510.83 862.50 / 862.50 Lab / Micro Data Result Diagrams: 02/24/21 06:15 02/25/21 05:24 Labs: Laboratory Results - last 24 hr 02/24/21 21:08: POC Glucose 194 H 02/24/21 22:43: Urine Color Yellow, Urine Clarity Sl Cloudy, Urine pH 6.5, Ur Specific [place] 1.010, Urine Protein 30 H, Urine Glucose (UA) 50 H, Urine Ketones Negative, Urine Occult Blood 250 H, Urine Nitrite Negative, Urine Bilirubin Negative, Urine Urobilinogen Normal, Ur Leukocyte Esterase 500 H, Urine RBC 5-10 SEEN, Urine WBC 50-100 SEEN, Ur Squamous Epith Cells 0 SEEN, Urine Bacteria 1+, Urine Mucus 0 SEEN, Urine Yeast RARE 02/24/21 22:43: Ur Random Sodium 66, Urine Creatinine 32.80 02/25/21 05:24: Sodium 139, Potassium 4.4, Chloride 112 H, Carbon Dioxide 22.0, Anion Gap 5, BUN 21 H, Creatinine 5.68 H, Estim Creat Clear Calc 9.82, Est GFR (MDRD) Af Amer 10 L, Est GFR (MDRD) Non-Af 8 L, BUN/Creatinine Ratio 3.7 L, Glucose 242 H, Calcium 7.8 L, Iron 49 L, TIBC 148 L, Iron Saturation 33.1 02/25/21 08:15: POC Glucose 202 H 02/25/21 11:16: POC Glucose 71 02/25/21 12:16: POC Glucose 85 02/25/21 16:47: POC Glucose 133 H Rhythm Strip Rhythm Strip: Sinus Rhythm Rate: 95 Ectopy: PAC(s) Physical Exam Const alert, oriented x3 and no apparent distress Orientation / Consciousness: awake, oriented to person, oriented to place and oriented to time HEENT normocephalic and moist oral mucous membranes Eyes PERRL, EOMs intact bilaterally and conjunctivae normal Neck no lymphadenopathy Resp normal respiratory effort and clear to auscultation bilaterally Cardio regular rate, regular rhythm and no murmurs Peripheral Pulses: pulses 2+ throughout GI normal to inspection, nondistended, normoactive bowel sounds, non-tender and non-distended Extremity normal to inspection Skin no rashes or lesions noted Lesions: no lesions Rashes: no rashes Trauma: no lacerations or abrasions Neuro CN's II-XII intact bilaterally, no focal motor deficits, no sensory deficits noted and deep tendon reflexes 2+ bilaterally Psych mental status grossly normal and affect normal Assessment & Plan Assessment/Plan (1) TEODORO (acute kidney injury): PLAN: 1. Acute kidney injury-nephrology following. Suspect prerenal related to poor oral intake, recent nausea/vomiting. Continue IV fluids, trend BMP. 2. Musculoskeletal chest pain- troponin negative. Echo demonstrated EF 60%, stage 2 diastolic dysfunction. 3. Type 2 diabetes mellitus- accuchecks with SSI. Continue home insulin regimen. 4. CAD- aspirin, plavix, statin, metoprolol. 5. Hypertension- stable, metoprolol. Losartan on hold. 6. Hyperlipidemia-continue statin. 7. History of CVA-on aspirin, Plavix, statin. 8. Normocytic anemia-below baseline. Stable. Trend CBC. DVT prophylaxis-Heparin subcu This patient was seen by GABY Shukla under the supervision of Dr. Garcia. Documented by User: Dr. Williams Garcia, DO 02/25/21 18:54 Objective Data Lab / Micro Data Result Diagrams: 02/24/21 06:15 02/25/21 05:24 Charges/Coding Addendum Addendum: Patient was seen and examined today independently of Maggie Arroyo, her lab work showed a slight rise in her creatinine today, the patient is more alert today however. On examination she appeared in good health and spirits, she does not appear to be in any distress. Vital signs as documented. Skin warm and dry and without overt rashes. Neck without JVD, thyroid appears normal, trachea is midline, neck is supple. Lungs clear, normal air movement was noted. Heart exam notable for regular rhythm, normal sounds and absence of murmurs, rubs or gallops. Abdomen unremarkable and without evidence of organomegaly, masses, or abdominal aortic enlargement, bowel sounds are present in all 4 quadrants, no abdominal tenderness was noted. Extremities nonedematous, no cyanosis was noted, no clubbing was noted. Neuro: Cranial nerves II through XII are grossly intact, no focal motor deficits were noted, sensation to light touch and pinprick is intact, motor exam 5/5 throughout. Psych: Patient is alert and oriented x3, she does not appear anxious or depressed, she does not appear agitated. Patient will continue to have fluids administered, labs will be monitored. I have reviewed Maggie Arroyo's progress note including her medical assessment and plan of care and endorse it. Visit Charges Inpatient E&M: 97904 Subs Hosp L2
[2021-02-25] MEDS: Pravastatin 40 MG Tablet PO (21:24)
[2021-02-25 21:45] LABS: Bedside Glucose 184 mg/dL (70-110)
[2021-02-26] VITALS (12 sets, daily range): BP systolic 126–144; BP diastolic 55–72; PULSE 60–73; RESP 16–18; TEMP 36.1–37; O2SAT 93–100
[2021-02-26] MEDS: 0.9% Normal Saline 1,000 ML 100 ML IV (03:13)
[2021-02-26] MEDS: oxyCODONE 5 MG Tablet PO (06:00)
[2021-02-26 07:21] LABS: Anion Gap 4 (5-15); BUN 23 mg/dL (7-18); BUN/Creat Ratio 3.9 RATIO (10-20); Calcium,Total 7.8 mg/dL (8.5-10.1); Chloride 115 mmol/L (98-107); Creatinine, Serum 5.94 mg/dL (0.55-1.02); EST Glomerular Filtration Rate 7 mL/min (>60); Est Glom Filt Rate - Afr Amer 9 mL/min (>60); Estimated Creatinine Clearance 9.39 ml/min; Glucose 169 mg/dL (74-106); Potassium 4.3 mmol/L (3.5-5.1); Sodium Level 142 mmol/L (136-145)
[2021-02-26 08:40] LABS: Bedside Glucose 145 mg/dL (70-110)
[2021-02-26] MEDS: Ondansetron 4 MG/2 ML Vial IV (09:50)
--- NOTE | 2021-02-26 09:56 | CASEMGMT ---
Paula at [facility] aware of pt re-referral and that pt may discharge over the w/e and green sheet left on chart for [facility] to be notified if pt discharges. Martine APONTE CM
[2021-02-26] MEDS: Senna/Docusate Sodium 1 Tablet 2 TABLET PO (13:33)
[2021-02-26] MEDS: busPIRone 15 MG TABLET PO ×2 (13:34→20:57)
[2021-02-26] MEDS: Pantoprazole Sodium 40 MG Tablet PO ×2 (13:34→20:57)
[2021-02-26] MEDS: Clopidogrel Bisulfate 75 MG Tablet PO (13:34)
[2021-02-26] MEDS: Aspirin E.C. 81 MG Tablet PO (13:34)
[2021-02-26] MEDS: Tolterodine Tartrate 4 MG CAP.SA PO (13:35)
[2021-02-26] MEDS: Cyanocobalamin 500 MCG Tablet 1000 MCG PO (13:35)
[2021-02-26] MEDS: Psyllium 1 PACKET PO (13:35)
[2021-02-26] MEDS: Cholecalciferol (VIT D3) 25 MCG TABLET (1,000 UNITS) 75 MCG PO (13:38)
[2021-02-26] MEDS: Heparin Injection (Vial) 5,000 UNIT/ML VIAL 5000 UNIT SC ×2 (13:38→20:54)
[2021-02-26] MEDS: 0.9% Normal Saline 1,000 ML 125 ML IV ×2 (13:39→20:57)
[2021-02-26] MEDS: Metoprolol Tartrate 25 MG Tablet 12.5 MG PO ×2 (13:40→20:57)
--- NOTE | 2021-02-26 13:43 | PCM.PN.REN ---
Subjective Subjective Sitting up in bed. No acute distress noted. Trying to eat ice. Still has some complaints of nausea without vomiting but states has improved. No diarrhea. Denies shortness of breath. She did not eat much breakfast and hasn't ordered lunch yet. Objective Data Objective Data Vital Signs: Vital Signs Temp Pulse Resp BP Pulse Ox 97.5 F L 65 16 144/55 H 96 02/26/21 09:00 02/26/21 13:40 02/26/21 09:00 02/26/21 13:40 02/26/21 09:00 Oxygen Flow Rate (L/min) 2 Oxygen Delivery Method Room Air Weight: 68.492 kg Body Mass Index (BMI) 30.4 Intake & Output: Intake and Output for Last 24 Hours 02/24/21 02/25/21 02/26/21 23:59 23:59 23:59 Intake Total 3560.83 / 3560.83 2501.25 / 2501.25 1351.25 / 1351.25 Output Total 1050 / 1050 1150 / 1150 425 / 425 Balance 2510.83 / 2510.83 1351.25 / 1351.25 926.25 / 926.25 Lab / Micro Data Result Diagrams: 02/24/21 06:15 02/26/21 06:20 Labs: Laboratory Results - last 24 hr 02/25/21 16:47: POC Glucose 133 H 02/25/21 21:33: POC Glucose 184 H 02/26/21 06:20: Sodium 142, Potassium 4.3, Chloride 115 H, Carbon Dioxide 23.0, Anion Gap 4 L, BUN 23 H, Creatinine 5.94 H, Estim Creat Clear Calc 9.39, Est GFR (MDRD) Af Amer 9 L, Est GFR (MDRD) Non-Af 7 L, BUN/Creatinine Ratio 3.9 L, Glucose 169 H, Calcium 7.8 L 02/26/21 08:29: POC Glucose 145 H Rhythm Strip Rhythm Strip: Sinus Rhythm Rate: 95 Ectopy: PAC(s) Physical Exam Const alert, oriented x3 and no apparent distress General Appearance: cooperative and comfortable HEENT normocephalic Resp normal respiratory effort, normal air movement and clear to auscultation bilaterally Cardio regular rate Cardio Narrative: No edema Narrative: Indwelling German with clear urine in bag Assessment & Plan Assessment/Plan (1) TEODORO (acute kidney injury): (2) Atypical chest pain: (3) Bacteremia: (4) Hypertension: PLAN: Patient has nonoliguric hypovolemic acute kidney injury possibly from recent E. coli UTI/bacteremia, poor oral intake with nausea and vomiting, hemodynamic changes with concurrent ARB use. She has normal baseline creatinine. Creatinine on admission 4.66 mg/dL --> 5.20 mg/dL -->5.68 mg/dL today Creatinine 5.94 mg/dL. Fortunately patient is nonoliguric and in fact urine output looks to be picking up. She does have some mild uremic symptoms (overall patient looks better today), potassium acid-base acceptable, there is no acute indication for PEST CONTROL SERVICE TECHNICIAN. Recommend continue with IV fluids and rate increased 125ml/hr (ECHO reviewed). Patient does not need renal diet restrictions. Recommend to continue holding losartan. Patient has German, recommend strict I/O. Renal ultrasound did not show any hydronephrosis, echogenic kidneys suggestive of chronic medical renal disease, simple appearing bilateral renal cysts. Urine sodium 66, urine creatinine 32. UA 30 protein, 250 occult blood, +hyaline casts. Patient has been nauseated and is receiving Zofran as needed. Again today encouraged patient to increase oral intake as best as she can. Encouraged OOB to chair when eating. She does not need any dietary restrictions at this time Blood pressure is acceptable on toprol recent UTI/bacteremia on oral cipro. Discussed with primary team if cipro can be stopped, possibly course completed. Discussed with patient at this time there is no acute indication for PEST CONTROL SERVICE TECHNICIAN but if renal function worsens, urine output declines, potassium and acid-base worsen she may need PEST CONTROL SERVICE TECHNICIAN. Patient voiced understanding. Questions answered. Labs ordered for a.m.
[2021-02-26 13:51] LABS: Bedside Glucose 195 mg/dL (70-110)
[2021-02-26] MEDS: proMETHazine 25 MG Tablet 12.5 MG PO (13:53)
--- NOTE | 2021-02-26 14:05 | PN.HOSP_ITS ---
Documented by User: Maggie Arroyo NP, PROPERTY DAMAGE CLAIMS ADJUSTOR-C 02/26/21 14:23 Subjective Subjective Patient seen and examined. Reports ongoing nausea, denies emesis. Reports poor appetite. Reports generalized aching/pain. Objective Data Objective Data Vital Signs: Vital Signs Temp Pulse Resp BP Pulse Ox 97.5 F L 65 16 144/55 H 96 02/26/21 09:00 02/26/21 13:40 02/26/21 09:00 02/26/21 13:40 02/26/21 09:00 Oxygen Flow Rate (L/min) 2 Oxygen Delivery Method Room Air Weight: 151 lb Body Mass Index (BMI) 30.4 Intake & Output: Intake and Output for Last 24 Hours 02/24/21 02/25/21 02/26/21 23:59 23:59 23:59 Intake Total 3560.83 / 3560.83 2501.25 / 2501.25 1351.25 / 1351.25 Output Total 1050 / 1050 1150 / 1150 425 / 425 Balance 2510.83 / 2510.83 1351.25 / 1351.25 926.25 / 926.25 Lab / Micro Data Result Diagrams: 02/24/21 06:15 02/26/21 06:20 Labs: Laboratory Results - last 24 hr 02/25/21 16:47: POC Glucose 133 H 02/25/21 21:33: POC Glucose 184 H 02/26/21 06:20: Sodium 142, Potassium 4.3, Chloride 115 H, Carbon Dioxide 23.0, Anion Gap 4 L, BUN 23 H, Creatinine 5.94 H, Estim Creat Clear Calc 9.39, Est GFR (MDRD) Af Amer 9 L, Est GFR (MDRD) Non-Af 7 L, BUN/Creatinine Ratio 3.9 L, Glucose 169 H, Calcium 7.8 L 02/26/21 08:29: POC Glucose 145 H 02/26/21 13:32: POC Glucose 195 H Rhythm Strip Rhythm Strip: Sinus Rhythm Rate: 95 Ectopy: PAC(s) Physical Exam Const alert, oriented x3 and no apparent distress Orientation / Consciousness: awake, oriented to person, oriented to place and oriented to time HEENT normocephalic Mouth: dry mucous membranes Eyes PERRL, EOMs intact bilaterally and conjunctivae normal Neck no lymphadenopathy Resp normal respiratory effort and clear to auscultation bilaterally Cardio regular rate, regular rhythm and no murmurs Peripheral Pulses: pulses 2+ throughout GI normal to inspection, nondistended, normoactive bowel sounds, non-tender and non-distended Extremity normal to inspection Skin no rashes or lesions noted Lesions: no lesions Rashes: no rashes Trauma: no lacerations or abrasions Neuro CN's II-XII intact bilaterally, no focal motor deficits, no sensory deficits noted and deep tendon reflexes 2+ bilaterally Psych mental status grossly normal and affect normal Assessment & Plan Assessment/Plan (1) TEODORO (acute kidney injury): PLAN: 1. Acute kidney injury-nephrology following. Suspect prerenal related to poor oral intake, recent nausea/vomiting. Continue IV fluids, trend BMP. 2. Musculoskeletal chest pain- troponin negative. Echo demonstrated EF 60%, stage 2 diastolic dysfunction. 3. Type 2 diabetes mellitus- accuchecks with SSI. Continue home insulin regimen. 4. CAD- aspirin, plavix, statin, metoprolol. 5. Hypertension- stable, metoprolol. Losartan on hold. 6. Hyperlipidemia-continue statin. 7. History of CVA-on aspirin, Plavix, statin. 8. Normocytic anemia-below baseline. Stable. Trend CBC. 9. Recent E. coli UTI with bacteremia-complete course of previously prescribed Cipro. DVT prophylaxis-Heparin subcu This patient was seen by Maggie Arroyo, JERAMY-C under the supervision of Dr. Shelbie martin. Documented by User: Dr. Williams Garcia DO 02/26/21 14:29 Objective Data Lab / Micro Data Result Diagrams: 02/24/21 06:15 02/26/21 06:20 Charges/Coding Addendum Addendum: Patient was seen and examined on 02/26/21 independently of Maggie Arroyo, her creatinine has not improved since yesterday, I talked briefly with nephrology about her care and they recommended increasing the patient's IV fluid rate. On examination she appeared in good health and spirits, she does not appear to be in any distress. Vital signs as documented. Skin warm and dry and without overt rashes. Neck without JVD, thyroid appears normal, trachea is midline, neck is supple. Lungs clear, normal air movement was noted. Heart exam notable for regular rhythm, normal sounds and absence of murmurs, rubs or gallops. Abdomen unremarkable and without evidence of organomegaly, masses, or abdominal aortic enlargement, bowel sounds are present in all 4 quadrants, no abdominal tenderness was noted. Extremities nonedematous, no cyanosis was noted, no clubbing was noted. Neuro: Cranial nerves II through XII are grossly intact, no focal motor deficits were noted, sensation to light touch and pinprick is intact, motor exam 5/5 throughout. Psych: Patient is alert and oriented x3, she does not appear anxious or depressed, she does not appear agitated. I have reviewed Maggie Arroyo's progress note including her medical assessment and plan of care and endorse it. Visit Charges Inpatient E&M: 40199 Subs Hosp L2
--- NOTE | 2021-02-26 14:59 | CASEMGMT ---
VOLODYMYR received a call from Sera. She was talking very fast and telling SW to talk with patient and tell her that family wants to talk to her. She said patient's granddaughter, Chastity is going to take care of her when she is discharged, but she won't talk with her. She said Chastity had to go into the hospital and then she had to go to the snf. She is out now and wants to talk with patient, but she won't talk with any of them. SW had to stop her and ask her mom's name. She asked SW to go tell patient that Chastity did not do anything wrong and to talk with her as she will care for her when she is discharged. She asked SW to call her back at [phone]. VOLODYMYR went to patient's room. Introduced self and role at [facility]. VOLODYMYR let her know why SW was coming to see her. VOLODYMYR told her what her daughter said. She said she wants nothing to do with them. VOLODYMYR told her that her granddaughter Chastity was in the hospital and then had to go to the snf. She said she knows that. VOLODYMYR told her she is out of the snf now. She said they would not even go get her popsicles when she was home. She again said I want nothing to do with those people. SW let her know SW will call her daughter and let her know. She said that is fine. VOLODYMYR did ask patient if she is okay to go home at discharge or if she needs to go to a nursing facility short term and she said she will be fine at home. VOLODYMYR called Sera back and told her what patient said. She said, Okay thank you. Estrella GARCÍA
[2021-02-26] MEDS: Insulin Lispro 100 UNIT/ML INSULN.PEN SC ×2 (15:15→17:45)
[2021-02-26] MEDS: Insulin Lispro 100 UNIT/ML INSULN.PEN 8 UNIT SC ×2 (15:15→17:45)
[2021-02-26] MEDS: Ciprofloxacin 500 MG Tablet PO (17:46)
[2021-02-26 17:56] LABS: Bedside Glucose 352 mg/dL (70-110)
[2021-02-26] MEDS: Pravastatin 40 MG Tablet PO (20:57)
[2021-02-26 21:21] LABS: Bedside Glucose 125 mg/dL (70-110)
[2021-02-27] VITALS (11 sets, daily range): BP systolic 123–178; BP diastolic 58–78; PULSE 59–88; RESP 13–20; TEMP 36.5–37.2; O2SAT 97–100
[2021-02-27] MEDS: 0.9% Normal Saline 1,000 ML 125 ML IV ×3 (04:35→20:30)
[2021-02-27 07:27] LABS: Absolute Lymphocyte Count 1.52 X10^3/uL (0.83-4.51); Basophil# 0.05 X10^3/uL; Basophil% 0.8 % (0-1); Eosinophil# 0.19 X10^3/uL; Hematocrit 29.8 % (37-47); Lymphocyte # 1.52 X10^3/ul (0.83-4.51); Lymphocyte % 24.1 % (19-41); Mean Corp Hgb Conc 30.2 g/dL (32-36); Mean Corpuscular Hgb 27.8 pg (27.0-32.0); Mean Platelet Vol. 11.2 fl (6.2-12.0); Monocyte# 0.52 X10^3/uL; Monocyte% 8.2 % (0-10); NRBC Flagged by Analyzer 0 % (0-5); Neutrophil # 3.99 X10^3/uL (2.7-7.7); Neutrophil % 63.3 % (47-70); Platelet Count 296 K/mm3 (150-450); RBC Distribution Width CV 15.1 % (11.6-14.6); RBC Distribution Width SD 50.4 fl (35.1-43.9); Red Blood Count 3.24 M/mm3 (4.2-5.4); White Blood Count 6.3 K/mm3 (4.4-11.0)
[2021-02-27 07:43] LABS: Anion Gap 4 (5-15); BUN 24 mg/dL (7-18); BUN/Creat Ratio 4.1 RATIO (10-20); Calcium,Total 7.8 mg/dL (8.5-10.1); Chloride 117 mmol/L (98-107); Creatinine, Serum 5.81 mg/dL (0.55-1.02); EST Glomerular Filtration Rate 8 mL/min (>60); Est Glom Filt Rate - Afr Amer 9 mL/min (>60); Glucose 96 mg/dL (74-106); Potassium 4.8 mmol/L (3.5-5.1); Sodium Level 143 mmol/L (136-145)
[2021-02-27] MEDS: 0.9% Saline Lock 10 ML Syringe IV (07:49)
[2021-02-27] MEDS: Ondansetron 4 MG/2 ML Vial IV ×2 (07:49→17:45)
[2021-02-27 08:06] LABS: Bedside Glucose 89 mg/dL (70-110)
[2021-02-27] MEDS: Psyllium 1 PACKET PO (09:30)
[2021-02-27] MEDS: Cyanocobalamin 500 MCG Tablet 1000 MCG PO (09:30)
[2021-02-27] MEDS: busPIRone 15 MG TABLET PO ×2 (09:30→20:41)
[2021-02-27] MEDS: Tolterodine Tartrate 4 MG CAP.SA PO (09:30)
[2021-02-27] MEDS: Clopidogrel Bisulfate 75 MG Tablet PO (09:30)
[2021-02-27] MEDS: Cholecalciferol (VIT D3) 25 MCG TABLET (1,000 UNITS) 75 MCG PO (09:30)
[2021-02-27] MEDS: Pantoprazole Sodium 40 MG Tablet PO ×2 (09:30→20:40)
[2021-02-27] MEDS: Ciprofloxacin 500 MG Tablet PO (09:30)
[2021-02-27] MEDS: Aspirin E.C. 81 MG Tablet PO (09:31)
[2021-02-27] MEDS: Senna/Docusate Sodium 1 Tablet 2 TABLET PO (09:31)
[2021-02-27] MEDS: Metoprolol Tartrate 25 MG Tablet 12.5 MG PO ×2 (09:31→20:39)
[2021-02-27] MEDS: Heparin Injection (Vial) 5,000 UNIT/ML VIAL 5000 UNIT SC ×2 (09:37→20:36)
[2021-02-27] MEDS: Insulin Lispro 100 UNIT/ML INSULN.PEN 8 UNIT SC ×2 (12:25→17:42)
[2021-02-27] MEDS: Insulin Lispro 100 UNIT/ML INSULN.PEN SC (12:26)
--- NOTE | 2021-02-27 12:26 | PN.HOSP_ITS ---
Documented by User: Maggie Arroyo NP, INTEGRATION ARCHITECT-C 02/27/21 12:33 Subjective Subjective Patient seen and examined. Reports ongoing nausea without emesis. States she is able to tolerate liquids. States she has not had a bowel movement in several days. Feels this may be contributing to her nausea. Continues to have good urine output. Objective Data Objective Data Vital Signs: Vital Signs Temp Pulse Resp BP Pulse Ox 98.9 F 88 13 145/78 H 99 02/27/21 09:20 02/27/21 09:31 02/27/21 09:20 02/27/21 09:20 02/27/21 09:20 Oxygen Flow Rate (L/min) 2 Oxygen Delivery Method Room Air Weight: 151 lb Body Mass Index (BMI) 30.4 Intake & Output: Intake and Output for Last 24 Hours 02/25/21 02/26/21 02/27/21 23:59 23:59 23:59 Intake Total 2501.25 / 2501.25 3138.75 / 3138.75 954.17 / 954.17 Output Total 1150 / 1150 1250 / 1665 765 / 765 Balance 1351.25 / 1351.25 1888.75 / 1473.75 189.17 / 189.17 Lab / Micro Data Result Diagrams: 02/27/21 06:50 02/27/21 06:50 Labs: Laboratory Results - last 24 hr 02/26/21 13:32: POC Glucose 195 H 02/26/21 17:42: POC Glucose 352 H 02/26/21 20:53: POC Glucose 125 H 02/27/21 06:50: Sodium 143, Potassium 4.8, Chloride 117 H, Carbon Dioxide 22.0, Anion Gap 4 L, BUN 24 H, Creatinine 5.81 H, Estim Creat Clear Calc 9.60, Est GFR (MDRD) Af Amer 9 L, Est GFR (MDRD) Non-Af 8 L, BUN/Creatinine Ratio 4.1 L, Glucose 96, Calcium 7.8 L 02/27/21 06:50: WBC 6.3, RBC 3.24 L, Hgb 9.0 L, Hct 29.8 L, MCV 92.0, MCH 27.8, MCHC 30.2 L, RDW Std Deviation 50.4 H, RDW Coeff of Tushar 15.1 H, Plt Count 296, MPV 11.2, Immature Gran % (Auto) 0.600, Neut % (Auto) 63.3, Lymph % (Auto) 24.1, [place] % (Auto) 8.2, Eos % (Auto) 3.0, Baso % (Auto) 0.8, Absolute Neuts (auto) 4.0, Absolute Lymphs (auto) 1.52, Nucleated RBC % 0 02/27/21 07:48: POC Glucose 89 Rhythm Strip Rhythm Strip: Sinus Rhythm Rate: 95 Ectopy: PAC(s) Physical Exam Const alert, oriented x3 and no apparent distress Orientation / Consciousness: awake, oriented to person, oriented to place and oriented to time HEENT normocephalic and moist oral mucous membranes Eyes PERRL, EOMs intact bilaterally and conjunctivae normal Neck no lymphadenopathy Resp normal respiratory effort and clear to auscultation bilaterally Cardio regular rate, regular rhythm and no murmurs Peripheral Pulses: pulses 2+ throughout GI normal to inspection, nondistended, normoactive bowel sounds, non-tender and non-distended Extremity normal to inspection Skin no rashes or lesions noted Lesions: no lesions Rashes: no rashes Trauma: no lacerations or abrasions Neuro CN's II-XII intact bilaterally, no focal motor deficits, no sensory deficits noted and deep tendon reflexes 2+ bilaterally Psych mental status grossly normal and affect normal Assessment & Plan Assessment/Plan (1) TEODORO (acute kidney injury): PLAN: 1. Acute kidney injury-nephrology following. Suspect prerenal related to poor oral intake, recent nausea/vomiting. Continue IV fluids, trend BMP. 2. Musculoskeletal chest pain- troponin negative. Echo demonstrated EF 60%, stage 2 diastolic dysfunction. 3. Type 2 diabetes mellitus- accuchecks with SSI. Continue home insulin regimen. 4. CAD- aspirin, plavix, statin, metoprolol. 5. Hypertension- stable, metoprolol. Losartan on hold. 6. Hyperlipidemia-continue statin. 7. History of CVA-on aspirin, Plavix, statin. 8. Normocytic anemia-below baseline. Stable. Trend CBC. 9. Recent E. coli UTI with bacteremia-complete course of previously prescribed Cipro. DVT prophylaxis-Heparin subcu This patient was seen by GABY Shukla under the supervision of Dr. Garcia. Documented by User: Dr. Williams Garcia DO 02/27/21 17:28 Objective Data Lab / Micro Data Result Diagrams: 02/27/21 06:50 02/27/21 06:50 Charges/Coding Addendum Addendum: Patient was seen and examined today independently of Maggie Arroyo, her creatinine remains elevated today although it is improved over yesterday. Patient voices no complaints to this examiner of any shortness of breath, fever, or chills. On examination she appeared in good health and spirits, she does not appear to be in any distress. Vital signs as documented. Skin warm and dry and without overt rashes. Neck without JVD, thyroid appears normal, trachea is midline, neck is supple. Lungs clear, normal air movement was noted. Heart exam notable for regular rhythm, normal sounds and absence of murmurs, rubs or gallops. Abdomen unremarkable and without evidence of organomegaly, masses, or abdominal aortic enlargement, bowel sounds are present in all 4 quadrants, no abdominal tenderness was noted. Extremities nonedematous, no cyanosis was noted, no clubbing was noted. Neuro: Cranial nerves II through XII are grossly intact, no focal motor deficits were noted, sensation to light touch and pinprick is intact, motor exam 5/5 throughout. Psych: Patient is alert and oriented x3, she does not appear anxious or depressed, she does not appear agitated. I have reviewed Maggievidya Arroyo's progress note including her medical assessment and plan of care and endorse it. Visit Charges Inpatient E&M: 88639 Subs Hosp L2
[2021-02-27 12:41] LABS: Bedside Glucose 202 mg/dL (70-110)
[2021-02-27] MEDS: proMETHazine 25 MG Tablet 12.5 MG PO (12:42)
[2021-02-27] MEDS: Bisacodyl 10 MG Suppository RC (14:54)
[2021-02-27] MEDS: Docusate Sodium 100 MG Capsule 200 MG PO ×2 (14:54→20:41)
[2021-02-27 17:01] LABS: Bedside Glucose 148 mg/dL (70-110)
--- NOTE | 2021-02-27 19:23 | PN.RENAL_ITS ---
Subjective Subjective Following for TEODORO. The patient complains of shortness of breath which comes and goes. She has constipation. There has been no chest pain or nausea. Objective Data Objective Data Vital Signs: Vital Signs Temp Pulse Resp BP Pulse Ox 97.8 F 76 16 178/73 H 100 02/27/21 17:51 02/27/21 17:51 02/27/21 17:51 02/27/21 17:51 02/27/21 17:51 Oxygen Flow Rate (L/min) 2 Oxygen Delivery Method Room Air Weight: 68.492 kg Body Mass Index (BMI) 30.4 Intake & Output: Intake and Output for Last 24 Hours 02/25/21 02/26/21 02/27/21 23:59 23:59 23:59 Intake Total 2501.25 / 2501.25 3138.75 / 3138.75 2432.09 / 2432.09 Output Total 1150 / 1150 1250 / 1665 1915 / 1915 Balance 1351.25 / 1351.25 1888.75 / 1473.75 517.09 / 517.09 Lab / Micro Data Result Diagrams: 02/27/21 06:50 02/27/21 06:50 Labs: Laboratory Results - last 24 hr 02/26/21 20:53: POC Glucose 125 H 02/27/21 06:50: Sodium 143, Potassium 4.8, Chloride 117 H, Carbon Dioxide 22.0, Anion Gap 4 L, BUN 24 H, Creatinine 5.81 H, Estim Creat Clear Calc 9.60, Est GFR (MDRD) Af Amer 9 L, Est GFR (MDRD) Non-Af 8 L, BUN/Creatinine Ratio 4.1 L, Glucose 96, Calcium 7.8 L 02/27/21 06:50: WBC 6.3, RBC 3.24 L, Hgb 9.0 L, Hct 29.8 L, MCV 92.0, MCH 27.8, MCHC 30.2 L, RDW Std Deviation 50.4 H, RDW Coeff of Tushar 15.1 H, Plt Count 296, MPV 11.2, Immature Gran % (Auto) 0.600, Neut % (Auto) 63.3, Lymph % (Auto) 24.1, [place] % (Auto) 8.2, Eos % (Auto) 3.0, Baso % (Auto) 0.8, Absolute Neuts (auto) 4.0, Absolute Lymphs (auto) 1.52, Nucleated RBC % 0 02/27/21 07:48: POC Glucose 89 02/27/21 12:20: POC Glucose 202 H 02/27/21 16:48: POC Glucose 148 H Rhythm Strip Rhythm Strip: Sinus Rhythm Rate: 95 Ectopy: PAC(s) Physical Exam Const alert, oriented x3 and no apparent distress General Appearance: cooperative and comfortable HEENT normocephalic Resp normal respiratory effort, normal air movement and clear to auscultation bilaterally Cardio regular rate Cardio Narrative: 1+ lower extremity edema Narrative: Indwelling German with clear urine in bag Assessment & Plan Assessment/Plan (1) TEODORO (acute kidney injury): (2) Atypical chest pain: (3) Bacteremia: (4) Hypertension: PLAN: -Patient has nonoliguric hypovolemic acute kidney injury possibly from recent E. coli UTI/bacteremia, poor oral intake with nausea and vomiting, hemodynamic changes with concurrent ARB use. She has normal baseline creatinine. -Creatinine on admission 4.66 mg/dL --> 5.20 mg/dL -->5.68 mg/dL --> 5.94 mg/dL until yesterday. -Creatinine is better today at 5.81 mg/dL. 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 -Recommend continue with IV fluids at the current rate of 125ml/hr (ECHO reviewed). -Recommend to continue holding losartan. Blood pressure is acceptable on Metroprolol only. -Recheck renal function again tomorrow. If serum creatinine remains stable or lower, I would recommend decreasing IV rate tomorrow.
[2021-02-27] MEDS: Pravastatin 40 MG Tablet PO (20:40)
[2021-02-27 20:56] LABS: Bedside Glucose 93 mg/dL (70-110)
[2021-02-28] VITALS (11 sets, daily range): BP systolic 160–174; BP diastolic 71–98; PULSE 70–102; RESP 17–20; TEMP 36.5–36.9; O2SAT 95–100
[2021-02-28] MEDS: 0.9% Normal Saline 1,000 ML 125 ML IV ×3 (04:40→20:51)
[2021-02-28] MEDS: Ciprofloxacin 500 MG Tablet PO (04:41)
[2021-02-28 06:00] LABS: Absolute Lymphocyte Count 1.43 X10^3/uL (0.83-4.51); Absolute Neutrophil Count 3.9 X10^3/uL (2.0-7.7); Basophil# 0.05 X10^3/uL; Basophil% 0.8 % (0-1); Eosinophil# 0.23 X10^3/uL; Eosinophils% 3.8 % (0-5); Hematocrit 31.6 % (37-47); Hemoglobin 9.4 g/dL (12.0-15.0); Lymphocyte # 1.43 X10^3/ul (0.83-4.51); Lymphocyte % 23.5 % (19-41); Mean Corp Hgb Conc 29.7 g/dL (32-36); Mean Corpuscular Hgb 27.4 pg (27.0-32.0); Mean Corpuscular Volume 92.1 fL (81-99); Mean Platelet Vol. 11.2 fl (6.2-12.0); Monocyte# 0.44 X10^3/uL; Monocyte% 7.2 % (0-10); NRBC Flagged by Analyzer 0 % (0-5); Neutrophil # 3.89 X10^3/uL (2.7-7.7); Neutrophil % 63.9 % (47-70); Platelet Count 341 K/mm3 (150-450); RBC Distribution Width CV 15.4 % (11.6-14.6); RBC Distribution Width SD 51.1 fl (35.1-43.9); Red Blood Count 3.43 M/mm3 (4.2-5.4); White Blood Count 6.1 K/mm3 (4.4-11.0)
[2021-02-28 06:43] LABS: Anion Gap 7 (5-15); BUN 25 mg/dL (7-18); BUN/Creat Ratio 4.4 RATIO (10-20); Calcium,Total 7.6 mg/dL (8.5-10.1); Chloride 116 mmol/L (98-107); Creatinine, Serum 5.73 mg/dL (0.55-1.02); EST Glomerular Filtration Rate 8 mL/min (>60); Est Glom Filt Rate - Afr Amer 9 mL/min (>60); Estimated Creatinine Clearance 9.74 ml/min; Glucose 146 mg/dL (74-106); Potassium 4.4 mmol/L (3.5-5.1); Sodium Level 143 mmol/L (136-145)
[2021-02-28] MEDS: Metoprolol Tartrate 25 MG Tablet 12.5 MG PO ×2 (08:51→22:28)
[2021-02-28] MEDS: Cyanocobalamin 500 MCG Tablet 1000 MCG PO (08:53)
[2021-02-28] MEDS: Pantoprazole Sodium 40 MG Tablet PO ×2 (08:53→22:28)
[2021-02-28] MEDS: Clopidogrel Bisulfate 75 MG Tablet PO (08:54)
[2021-02-28] MEDS: Ondansetron 4 MG/2 ML Vial IV (08:54)
[2021-02-28] MEDS: Heparin Injection (Vial) 5,000 UNIT/ML VIAL 5000 UNIT SC ×2 (08:54→22:31)
[2021-02-28] MEDS: Tolterodine Tartrate 4 MG CAP.SA PO (08:55)
[2021-02-28] MEDS: Aspirin E.C. 81 MG Tablet PO (08:55)
[2021-02-28] MEDS: Psyllium 1 PACKET PO (08:55)
[2021-02-28] MEDS: Cholecalciferol (VIT D3) 25 MCG TABLET (1,000 UNITS) 75 MCG PO (08:55)
[2021-02-28] MEDS: Docusate Sodium 100 MG Capsule 200 MG PO ×2 (08:55→22:30)
[2021-02-28] MEDS: busPIRone 15 MG TABLET PO ×2 (08:56→22:28)
[2021-02-28 09:56] LABS: Bedside Glucose 135 mg/dL (70-110)
[2021-02-28] MEDS: proMETHazine 25 MG Tablet 12.5 MG PO ×2 (12:27→12:28)
[2021-02-28] MEDS: Insulin Lispro 100 UNIT/ML INSULN.PEN SC ×2 (12:50→17:15)
--- NOTE | 2021-02-28 14:11 | PN.HOSP_ITS ---
Documented by User: Maggie Arroyo NP, TAKER OFF BRAKER MACHINE-C 02/28/21 14:17 Subjective Subjective Patient seen and examined. Reports ongoing constipation despite increased bowel regimen yesterday. Reports ongoing nausea without emesis. Objective Data Objective Data Vital Signs: Vital Signs Temp Pulse Resp BP Pulse Ox 98.4 F 71 20 H 174/81 H 96 02/28/21 08:34 02/28/21 08:51 02/28/21 08:34 02/28/21 08:51 02/28/21 08:34 Oxygen Flow Rate (L/min) 2 Oxygen Delivery Method Room Air Weight: 151 lb Body Mass Index (BMI) 30.4 Intake & Output: Intake and Output for Last 24 Hours 02/26/21 02/27/21 02/28/21 23:59 23:59 23:59 Intake Total 3138.75 / 3138.75 3423.76 / 3473.76 2049 / 2049 Output Total 1250 / 1665 1915 / 2340 425 / 425 Balance 1888.75 / 1473.75 1508.76 / 1133.76 1625 / 1625 Lab / Micro Data Result Diagrams: 02/28/21 05:40 02/28/21 05:40 Labs: Laboratory Results - last 24 hr 02/27/21 16:48: POC Glucose 148 H 02/27/21 20:36: POC Glucose 93 02/28/21 05:40: WBC 6.1, RBC 3.43 L, Hgb 9.4 L, Hct 31.6 L, MCV 92.1, MCH 27.4, MCHC 29.7 L, RDW Std Deviation 51.1 H, RDW Coeff of Tushar 15.4 H, Plt Count 341, MPV 11.2, Immature Gran % (Auto) 0.800, Neut % (Auto) 63.9, Lymph % (Auto) 23.5, [place] % (Auto) 7.2, Eos % (Auto) 3.8, Baso % (Auto) 0.8, Absolute Neuts (auto) 3.9, Absolute Lymphs (auto) 1.43, Nucleated RBC % 0 02/28/21 05:40: Sodium 143, Potassium 4.4, Chloride 116 H, Carbon Dioxide 20.0 L , Anion Gap 7, BUN 25 H, Creatinine 5.73 H, Estim Creat Clear Calc 9.74, Est GFR (MDRD) Af Amer 9 L, Est GFR (MDRD) Non-Af 8 L, BUN/Creatinine Ratio 4.4 L, Glucose 146 H, Calcium 7.6 L 02/28/21 08:40: POC Glucose 135 H Rhythm Strip Rhythm Strip: Sinus Rhythm Rate: 95 Ectopy: PAC(s) Physical Exam Const alert, oriented x3 and no apparent distress Orientation / Consciousness: awake, oriented to person, oriented to place and oriented to time HEENT normocephalic and moist oral mucous membranes Eyes PERRL, EOMs intact bilaterally and conjunctivae normal Neck no lymphadenopathy Resp normal respiratory effort and clear to auscultation bilaterally Cardio regular rate, regular rhythm and no murmurs Peripheral Pulses: pulses 2+ throughout GI normal to inspection, nondistended, normoactive bowel sounds, non-tender and non-distended Extremity normal to inspection Skin no rashes or lesions noted Lesions: no lesions Rashes: no rashes Trauma: no lacerations or abrasions Neuro CN's II-XII intact bilaterally, no focal motor deficits, no sensory deficits noted and deep tendon reflexes 2+ bilaterally Psych mental status grossly normal and affect normal Assessment & Plan Assessment/Plan (1) TEODORO (acute kidney injury): PLAN: 1. Acute kidney injury-nephrology following. Suspect prerenal related to poor oral intake, recent nausea/vomiting. Continue IV fluids, trend BMP. Slowly improving. 2. Musculoskeletal chest pain- troponin negative. Echo demonstrated EF 60%, stage 2 diastolic dysfunction. 3. Type 2 diabetes mellitus- accuchecks with SSI. Continue home insulin regimen. 4. CAD- aspirin, plavix, statin, metoprolol. 5. Hypertension- stable, metoprolol. Losartan on hold. As needed hydralazine for systolic blood pressure greater than 160. 6. Hyperlipidemia-continue statin. 7. History of CVA-on aspirin, Plavix, statin. 8. Normocytic anemia-below baseline however appears stable. Trend CBC. 9. Recent E. coli UTI with bacteremia-completed previously prescribed course of Cipro. 10. Constipation-continue aggressive bowel regimen. DVT prophylaxis-Heparin subcu This patient was seen by GABY Shukla under the supervision of Dr. Garcia. Documented by User: Dr. Williams Garcia DO 02/28/21 18:02 Objective Data Lab / Micro Data Result Diagrams: 02/28/21 05:40 02/28/21 05:40 Charges/Coding Addendum Addendum: Patient was seen and examined today independently of Maggie Arroyo, her creatinine has not improved appreciably although it is a little bit lower than yesterday's creatinine. Patient complains of nausea, she was given a laxative today. On examination she appeared in good health and spirits, she does not appear to be in any distress. Vital signs as documented. Skin warm and dry and without overt rashes. Neck without JVD, thyroid appears normal, trachea is midline, neck is supple. Lungs clear, normal air movement was noted. Heart exam notable for regular rhythm, normal sounds and absence of murmurs, rubs or gallops. Abdomen unremarkable and without evidence of organomegaly, masses, or abdominal aortic enlargement, bowel sounds are present in all 4 quadrants, no abdominal tenderness was noted. Extremities nonedematous, no cyanosis was noted, no clubbing was noted. Neuro: Cranial nerves II through XII are grossly intact, no focal motor deficits were noted, sensation to light touch and pinprick is intact, motor exam 5/5 throughout. Psych: Patient is alert and oriented x3, she does not appear anxious or depressed, she does not appear agitated. At this point, it seems prudent to continue IV fluids on the patient and recheck her labs tomorrow. I have reviewed Maggie Arroyo's progress note including her medical assessment and plan of care and endorse it. Visit Charges Inpatient E&M: 78122 Subs Hosp L2
[2021-02-28 14:21] LABS: Bedside Glucose 236 mg/dL (70-110)
[2021-02-28] MEDS: Magnesium Citrate 300 ML PO (14:28)
--- NOTE | 2021-02-28 16:08 | RAD_ITS ---
INDICATION: nausea, constipation EXAMINATION/TECHNIQUE: X-RAY - XR Abdomen 1 View COMPARISON: None FINDINGS: BOWEL GAS PATTERN: Non-obstructive. No bowel or stomach distention. Moderate amount retained stool in colon. FREE AIR: Not assessed on a single supine view. ORGANOMEGALY: Not seen. CALCIFICATIONS: No abnormal calcifications observed. LOWER CHEST: No acute pathology. BONES AND SOFT TISSUES: No acute pathology. Degenerative changes of the spine and hips. RAD/Abdomen Single View (Portable) IMPRESSION: Non-obstructive bowel gas pattern. Moderate amount retained stool in colon. Electronically Signed: Deshawn Silva MD at 17:16 EDT Tel , Service support ,
[2021-02-28 17:56] LABS: Bedside Glucose 170 mg/dL (70-110)
--- NOTE | 2021-02-28 18:47 | PCM.PN.REN ---
Subjective Subjective Following for TEODORO. The patient has some shortness of breath but not worse in severity compared to yesterday. She has some nausea today. Appetite is poor. She denies chest pain. Objective Data Objective Data Vital Signs: Vital Signs Temp Pulse Resp BP Pulse Ox 98.1 F 84 18 171/82 H 98 02/28/21 17:07 02/28/21 17:07 02/28/21 17:07 02/28/21 17:07 02/28/21 17:07 Oxygen Flow Rate (L/min) 2 Oxygen Delivery Method Room Air Weight: 68.492 kg Body Mass Index (BMI) 30.4 Intake & Output: Intake and Output for Last 24 Hours 02/26/21 02/27/21 02/28/21 23:59 23:59 23:59 Intake Total 3138.75 / 3138.75 3423.76 / 3473.76 2810 / 2810 Output Total 1250 / 1665 1915 / 2340 1875 / 1875 Balance 1888.75 / 1473.75 1508.76 / 1133.76 935 / 935 Lab / Micro Data Result Diagrams: 02/28/21 05:40 02/28/21 05:40 Labs: Laboratory Results - last 24 hr 02/27/21 20:36: POC Glucose 93 02/28/21 05:40: WBC 6.1, RBC 3.43 L, Hgb 9.4 L, Hct 31.6 L, MCV 92.1, MCH 27.4, MCHC 29.7 L, RDW Std Deviation 51.1 H, RDW Coeff of Tushar 15.4 H, Plt Count 341, MPV 11.2, Immature Gran % (Auto) 0.800, Neut % (Auto) 63.9, Lymph % (Auto) 23.5, [place] % (Auto) 7.2, Eos % (Auto) 3.8, Baso % (Auto) 0.8, Absolute Neuts (auto) 3.9, Absolute Lymphs (auto) 1.43, Nucleated RBC % 0 02/28/21 05:40: Sodium 143, Potassium 4.4, Chloride 116 H, Carbon Dioxide 20.0 L, Anion Gap 7, BUN 25 H, Creatinine 5.73 H, Estim Creat Clear Calc 9.74, Est GFR (MDRD) Af Amer 9 L, Est GFR (MDRD) Non-Af 8 L, BUN/Creatinine Ratio 4.4 L, Glucose 146 H, Calcium 7.6 L 02/28/21 08:40: POC Glucose 135 H 02/28/21 12:09: POC Glucose 236 H 02/28/21 17:04: POC Glucose 170 H Radiography Diagnostic Testing: Radiology Impression KUB X-Ray 02/28/21 16:08 IMPRESSION: Non-obstructive bowel gas pattern. Moderate amount retained stool in colon. Electronically Signed: Deshawn Silva MD at 17:16 EDT Tel , Service support , Rhythm Strip Rhythm Strip: Sinus Rhythm Rate: 95 Ectopy: PAC(s) Physical Exam Const alert, oriented x3 and no apparent distress General Appearance: cooperative and comfortable HEENT normocephalic Resp normal respiratory effort, normal air movement and clear to auscultation bilaterally Cardio regular rate Cardio Narrative: 1+ lower extremity edema Narrative: Indwelling German with clear urine in bag Assessment & Plan Assessment/Plan (1) TEODORO (acute kidney injury): (2) Atypical chest pain: (3) Bacteremia: (4) Hypertension: PLAN: -Patient has nonoliguric hypovolemic acute kidney injury possibly from recent E. coli UTI/bacteremia, poor oral intake with nausea and vomiting, hemodynamic changes with concurrent ARB use. She has normal baseline creatinine. -Creatinine on admission 5.20 mg/dL -->5.68 mg/dL --> 5.94 mg/dL until 02/26/2021. -Creatinine is better today at 5.73 mg/dL. The patient is nonoliguric -Potassium, acid-base, and volume status are acceptable. There is no acute indication for CHIEF NURSE EXECUTIVE today. -Recommend continue with IV fluids at the current rate of 125ml/hr (ECHO reviewed). We will continue to watch for volume overload. Thus far, there is no signs of overt volume overload. -Recommend to continue holding losartan. Blood pressure is acceptable on metroprolol only. -Recheck renal function again tomorrow. If serum creatinine remains stable or lower, I would recommend decreasing IV rate tomorrow.
[2021-02-28 19:14] LABS: Anion Gap 8 (5-15); BUN 23 mg/dL (7-18); BUN/Creat Ratio 4.1 RATIO (10-20); Calcium,Total 8.1 mg/dL (8.5-10.1); Chloride 118 mmol/L (98-107); Creatinine, Serum 5.63 mg/dL (0.55-1.02); EST Glomerular Filtration Rate 8 mL/min (>60); Est Glom Filt Rate - Afr Amer 10 mL/min (>60); Estimated Creatinine Clearance 9.91 ml/min; Glucose 174 mg/dL (74-106); Potassium 4.6 mmol/L (3.5-5.1); Sodium Level 146 mmol/L (136-145)
[2021-02-28] MEDS: Pravastatin 40 MG Tablet PO (22:30)
[2021-02-28 22:41] LABS: Bedside Glucose 156 mg/dL (70-110)
[2021-03-01] VITALS (14 sets, daily range): BP systolic 145–162; BP diastolic 65–96; PULSE 66–96; RESP 16–18; TEMP 36.3–36.7; O2SAT 97–100
[2021-03-01] MEDS: 0.9% Normal Saline 1,000 ML 125 ML IV ×3 (05:00→22:09)
[2021-03-01] MEDS: Ondansetron 4 MG/2 ML Vial IV ×2 (05:13→15:55)
[2021-03-01 07:59] LABS: Anion Gap 8 (5-15); BUN 24 mg/dL (7-18); BUN/Creat Ratio 4.4 RATIO (10-20); Calcium,Total 7.9 mg/dL (8.5-10.1); Chloride 118 mmol/L (98-107); Creatinine, Serum 5.42 mg/dL (0.55-1.02); EST Glomerular Filtration Rate 8 mL/min (>60); Est Glom Filt Rate - Afr Amer 10 mL/min (>60); Estimated Creatinine Clearance 10.29 ml/min; Glucose 197 mg/dL (74-106); Sodium Level 147 mmol/L (136-145)
[2021-03-01 08:06] LABS: Bedside Glucose 157 mg/dL (70-110)
[2021-03-01] MEDS: Metoprolol Tartrate 25 MG Tablet 12.5 MG PO ×2 (08:54→22:05)
[2021-03-01] MEDS: Cholecalciferol (VIT D3) 25 MCG TABLET (1,000 UNITS) 75 MCG PO (08:54)
[2021-03-01] MEDS: Aspirin E.C. 81 MG Tablet PO (08:54)
[2021-03-01] MEDS: Docusate Sodium 100 MG Capsule 200 MG PO ×2 (08:54→22:04)
[2021-03-01] MEDS: Pantoprazole Sodium 40 MG Tablet PO ×2 (08:55→22:04)
[2021-03-01] MEDS: Tolterodine Tartrate 4 MG CAP.SA PO (08:55)
[2021-03-01] MEDS: Clopidogrel Bisulfate 75 MG Tablet PO (08:56)
[2021-03-01] MEDS: Psyllium 1 PACKET PO (08:56)
[2021-03-01] MEDS: Cyanocobalamin 500 MCG Tablet 1000 MCG PO (08:56)
[2021-03-01] MEDS: busPIRone 15 MG TABLET PO ×2 (09:00→22:04)
[2021-03-01] MEDS: Heparin Injection (Vial) 5,000 UNIT/ML VIAL 5000 UNIT SC ×2 (09:09→22:06)
[2021-03-01] MEDS: Insulin Lispro 100 UNIT/ML INSULN.PEN 8 UNIT SC ×3 (09:11→17:58)
[2021-03-01] MEDS: Insulin Lispro 100 UNIT/ML INSULN.PEN SC ×2 (09:12→12:30)
[2021-03-01 11:31] LABS: Bedside Glucose 190 mg/dL (70-110)
--- NOTE | 2021-03-01 13:16 | PN.HOSP_ITS ---
Documented by User: Maggie Arroyo NP, RAW STOCK DRIER TENDER-C 03/01/21 13:26 Subjective Subjective Patient seen and examined. Reports she had a small bowel movement this morning however still feels like she is constipated. Nausea slightly improved. Denies emesis. Objective Data Objective Data Vital Signs: Vital Signs Temp Pulse Resp BP Pulse Ox 98.1 F 69 18 162/96 H 97 03/01/21 08:50 03/01/21 11:00 03/01/21 08:50 03/01/21 08:54 03/01/21 11:23 Oxygen Flow Rate (L/min) 2 Oxygen Delivery Method Room Air Weight: 151 lb Body Mass Index (BMI) 30.4 Intake & Output: Intake and Output for Last 24 Hours 02/27/21 02/28/21 03/01/21 23:59 23:59 23:59 Intake Total 3423.76 / 3473.76 4421.67 / 4421.67 898.33 / 898.33 Output Total 1915 / 2340 2775 / 2775 2400 / 2400 Balance 1508.76 / 1133.76 1646.67 / 1646.67 -1501.67 / -1501.67 Lab / Micro Data Result Diagrams: 02/28/21 05:40 03/01/21 06:30 Labs: Laboratory Results - last 24 hr 02/28/21 12:09: POC Glucose 236 H 02/28/21 17:04: POC Glucose 170 H 02/28/21 18:30: Magnesium 2.0 02/28/21 18:30: Sodium 146 H, Potassium 4.6, Chloride 118 H, Carbon Dioxide 20.0 L, Anion Gap 8, BUN 23 H, Creatinine 5.63 H, Estim Creat Clear Calc 9.91, Est GFR (MDRD) Af Amer 10 L, Est GFR (MDRD) Non-Af 8 L, BUN/Creatinine Ratio 4.1 L, Glucose 174 H, Calcium 8.1 L 02/28/21 22:24: POC Glucose 156 H 03/01/21 06:30: Sodium 147 H, Potassium 4.0, Chloride 118 H, Carbon Dioxide 21.0, Anion Gap 8, BUN 24 H, Creatinine 5.42 H, Estim Creat Clear Calc 10.29, Est GFR (MDRD) Af Amer 10 L, Est GFR (MDRD) Non-Af 8 L, BUN/Creatinine Ratio 4.4 L, Glucose 197 H, Calcium 7.9 L 03/01/21 08:01: POC Glucose 157 H 03/01/21 11:25: POC Glucose 190 H Radiography Diagnostic Testing: Radiology Impression KUB X-Ray 02/28/21 16:08 IMPRESSION: Non-obstructive bowel gas pattern. Moderate amount retained stool in colon. Electronically Signed: Deshawn Silva MD at 17:16 EDT Tel , Service support , Rhythm Strip Rhythm Strip: Sinus Rhythm Rate: 95 Ectopy: PAC(s) Physical Exam Const alert, oriented x3 and no apparent distress Orientation / Consciousness: awake, oriented to person, oriented to place and oriented to time HEENT normocephalic and moist oral mucous membranes Eyes PERRL, EOMs intact bilaterally and conjunctivae normal Neck no lymphadenopathy Resp normal respiratory effort and clear to auscultation bilaterally Cardio regular rate, regular rhythm and no murmurs Peripheral Pulses: pulses 2+ throughout GI normal to inspection, nondistended, normoactive bowel sounds, non-tender and non-distended Extremity normal to inspection Skin no rashes or lesions noted Lesions: no lesions Rashes: no rashes Trauma: no lacerations or abrasions Neuro CN's II-XII intact bilaterally, no focal motor deficits, no sensory deficits noted and deep tendon reflexes 2+ bilaterally Psych mental status grossly normal and affect normal Assessment & Plan Assessment/Plan (1) TEODORO (acute kidney injury): PLAN: 1. Acute kidney injury-nephrology following. Suspect prerenal related to poor oral intake, recent nausea/vomiting. Continue IV fluids, trend BMP. Slowly improving. 2. Musculoskeletal chest pain- troponin negative. Echo demonstrated EF 60%, sta ge 2 diastolic dysfunction. 3. Type 2 diabetes mellitus- accuchecks with SSI. Continue home insulin regimen. 4. CAD- aspirin, plavix, statin, metoprolol. 5. Hypertension- stable, metoprolol. Losartan on hold. As needed hydralazine for systolic blood pressure greater than 160. 6. Hyperlipidemia-continue statin. 7. History of CVA-on aspirin, Plavix, statin. 8. Normocytic anemia-below baseline however appears stable. Trend CBC. 9. Recent E. coli UTI with bacteremia-completed previously prescribed course of Cipro. 10. Constipation-continue aggressive bowel regimen. DVT prophylaxis-Heparin subcu This patient was seen by GABY Shukal under the supervision of Dr. Anderson. Documented by User: Dr. Dc Anderson MD 03/01/21 17:41 Objective Data Lab / Micro Data Result Diagrams: 02/28/21 05:40 03/01/21 06:30 Charges/Coding Addendum Addendum: Dr. Anderson: I personally reviewed the chart and examined the patient, and agree with the above findings. 70-year-old female presents to the hospital for chest pain and vomiting since the night prior to admission. Evaluation demonstrated negative troponin with an echo that demonstrated normal EF of 60% with stage II diastolic dysfunction. This was felt to be musculoskeletal chest pain. However with her vomiting and her decreased oral intake she was found to have an acute kidney injury which is now ATN, this is also slightly complicated by her being on an antibiotic prior to admission secondary to a UTI as well as a CT with contrast recently on 02/13/2021 as well as 02/17/2021. Her creatinine is slowly improving, appreciate nephrology's assistance. She is also complaining of having some constipation therefore will attempt to address that as much as possible. Visit Charges Inpatient E&M: 27204 Subs Hosp L2
--- NOTE | 2021-03-01 15:27 | PCM.PN.REN ---
Subjective Subjective No new complaints Objective Data Objective Data Vital Signs: Vital Signs Temp Pulse Resp BP Pulse Ox 98.0 F 72 16 160/77 H 100 03/01/21 14:07 03/01/21 14:07 03/01/21 14:07 03/01/21 14:07 03/01/21 14:07 Oxygen Flow Rate (L/min) 2 Oxygen Delivery Method Room Air Weight: 68.5 kg Body Mass Index (BMI) 30.4 Intake & Output: Intake and Output for Last 24 Hours 02/27/21 02/28/21 03/01/21 23:59 23:59 23:59 Intake Total 3423.76 / 3473.76 4421.67 / 4421.67 1898.33 / 1898.33 Output Total 1915 / 2340 2775 / 2775 2400 / 2400 Balance 1508.76 / 1133.76 1646.67 / 1646.67 -501.67 / -501.67 Lab / Micro Data Result Diagrams: 02/28/21 05:40 03/01/21 06:30 Labs: Laboratory Results - last 24 hr 02/28/21 17:04: POC Glucose 170 H 02/28/21 18:30: Magnesium 2.0 02/28/21 18:30: Sodium 146 H, Potassium 4.6, Chloride 118 H, Carbon Dioxide 20.0 L, Anion Gap 8, BUN 23 H, Creatinine 5.63 H, Estim Creat Clear Calc 9.91, Est GFR (MDRD) Af Amer 10 L, Est GFR (MDRD) Non-Af 8 L, BUN/Creatinine Ratio 4.1 L, Glucose 174 H, Calcium 8.1 L 02/28/21 22:24: POC Glucose 156 H 03/01/21 06:30: Sodium 147 H, Potassium 4.0, Chloride 118 H, Carbon Dioxide 21.0, Anion Gap 8, BUN 24 H, Creatinine 5.42 H, Estim Creat Clear Calc 10.29, Est GFR (MDRD) Af Amer 10 L, Est GFR (MDRD) Non-Af 8 L, BUN/Creatinine Ratio 4.4 L, Glucose 197 H, Calcium 7.9 L 03/01/21 06:30: Magnesium 2.0 03/01/21 08:01: POC Glucose 157 H 03/01/21 11:25: POC Glucose 190 H Radiography Diagnostic Testing: Radiology Impression KUB X-Ray 02/28/21 16:08 IMPRESSION: Non-obstructive bowel gas pattern. Moderate amount retained stool in colon. Electronically Signed: Deshawn Silva MD at 17:16 EDT Tel , Service support , Rhythm Strip Rhythm Strip: Sinus Rhythm Rate: 95 Ectopy: PAC(s) Physical Exam Const alert, oriented x3 and no apparent distress General Appearance: cooperative and comfortable HEENT normocephalic Resp normal respiratory effort, normal air movement and clear to auscultation bilaterally Cardio regular rate Cardio Narrative: 1+ lower extremity edema Narrative: Indwelling German with clear urine in bag Assessment & Plan Assessment/Plan (1) TEODORO (acute kidney injury): (2) Atypical chest pain: (3) Bacteremia: (4) Hypertension: PLAN: Normal baseline as of 20 April. Went home, came back on the with worsening renal function. She did have a CT with contrast on the . Urine analysis is comparable to before. Urine sodium is high. ? ATN from contrast versus volume depletion. Urine output is okay. Creatinine is trending down. Other electrolytes are acceptable. Sodium is high, likely related to poor oral intake. No acute indications for dialysis.
[2021-03-01] MEDS: 0.9% Saline Lock 10 ML Syringe IV (15:55)
[2021-03-01 16:11] LABS: Bedside Glucose 136 mg/dL (70-110)
--- NOTE | 2021-03-01 16:48 | NURSING ---
This RN reviewed all SN charting
[2021-03-01] MEDS: Pravastatin 40 MG Tablet PO (22:04)
[2021-03-01 22:15] LABS: Bedside Glucose 81 mg/dL (70-110)
[2021-03-01] MEDS: proMETHazine 25 MG Tablet PO (22:48)
[2021-03-02] VITALS (13 sets, daily range): BP systolic 145–173; BP diastolic 61–79; PULSE 58–113; RESP 16–18; TEMP 36.5–37.1; O2SAT 97–99
[2021-03-02] MEDS: 0.9% Normal Saline 1,000 ML 125 ML IV ×2 (05:16→13:23)
[2021-03-02 07:21] LABS: Anion Gap 10 (5-15); BUN 22 mg/dL (7-18); BUN/Creat Ratio 4.6 RATIO (10-20); Calcium,Total 7.9 mg/dL (8.5-10.1); Chloride 113 mmol/L (98-107); Creatinine, Serum 4.78 mg/dL (0.55-1.02); EST Glomerular Filtration Rate 10 mL/min (>60); Est Glom Filt Rate - Afr Amer 12 mL/min (>60); Estimated Creatinine Clearance 11.67 ml/min; Glucose 199 mg/dL (74-106); Potassium 3.4 mmol/L (3.5-5.1); Sodium Level 146 mmol/L (136-145)
[2021-03-02] MEDS: 0.9% Saline Lock 10 ML Syringe IV (08:11)
[2021-03-02] MEDS: Ondansetron 4 MG/2 ML Vial IV (08:11)
[2021-03-02 08:30] LABS: Bedside Glucose 167 mg/dL (70-110)
[2021-03-02] MEDS: Insulin Lispro 100 UNIT/ML INSULN.PEN SC ×2 (10:27→12:13)
[2021-03-02] MEDS: Insulin Lispro 100 UNIT/ML INSULN.PEN 8 UNIT SC ×2 (10:27→12:13)
[2021-03-02] MEDS: Docusate Sodium 100 MG Capsule 200 MG PO ×2 (10:29→21:58)
[2021-03-02] MEDS: proMETHazine 25 MG Tablet PO (10:29)
[2021-03-02] MEDS: Clopidogrel Bisulfate 75 MG Tablet PO (10:29)
[2021-03-02] MEDS: Cholecalciferol (VIT D3) 25 MCG TABLET (1,000 UNITS) 75 MCG PO (10:29)
[2021-03-02] MEDS: Tolterodine Tartrate 4 MG CAP.SA PO (10:29)
[2021-03-02] MEDS: Pantoprazole Sodium 40 MG Tablet PO ×2 (10:29→21:59)
[2021-03-02] MEDS: Cyanocobalamin 500 MCG Tablet 1000 MCG PO (10:29)
[2021-03-02] MEDS: Aspirin E.C. 81 MG Tablet PO (10:30)
[2021-03-02] MEDS: busPIRone 15 MG TABLET PO ×2 (10:30→21:58)
[2021-03-02] MEDS: Metoprolol Tartrate 25 MG Tablet 12.5 MG PO ×2 (10:32→21:59)
[2021-03-02] MEDS: Heparin Injection (Vial) 5,000 UNIT/ML VIAL 5000 UNIT SC ×2 (10:35→22:01)
[2021-03-02 12:41] LABS: Bedside Glucose 192 mg/dL (70-110)
--- NOTE | 2021-03-02 13:48 | PN.HOSP_ITS ---
Documented by User: Maggie Arroyo NP, RESEARCH PROGRAM MANAGER-C 03/02/21 13:58 Subjective Subjective Patient seen and examined. States she has moved her bowels a few times however only small amounts. Reports ongoing nausea however denies emesis. Tolerating a regular diet. Objective Data Objective Data Vital Signs: Vital Signs Temp Pulse Resp BP Pulse Ox 97.7 F L 113 H 18 173/66 H 99 03/02/21 09:55 03/02/21 11:00 03/02/21 09:55 03/02/21 10:32 03/02/21 09:55 Oxygen Flow Rate (L/min) 2 Oxygen Delivery Method Room Air Weight: 151 lb 0.266 oz Body Mass Index (BMI) 30.4 Intake & Output: Intake and Output for Last 24 Hours 02/28/21 03/01/21 03/02/21 23:59 23:59 23:59 Intake Total 4421.67 / 4421.67 3480.83 / 3480.83 2020.42 / 2020.42 Output Total 2775 / 2775 3950 / 3950 2350 / 2350 Balance 1646.67 / 1646.67 -469.17 / -469.17 -329.58 / -329.58 Lab / Micro Data Result Diagrams: 02/28/21 05:40 03/02/21 05:35 Labs: Laboratory Results - last 24 hr 03/01/21 16:02: POC Glucose 136 H 03/01/21 22:00: POC Glucose 81 03/02/21 05:35: Sodium 146 H, Potassium 3.4 L, Chloride 113 H, Carbon Dioxide 23.0, Anion Gap 10, BUN 22 H, Creatinine 4.78 H, Estim Creat Clear Calc 11.67, Est GFR (MDRD) Af Amer 12 L, Est GFR (MDRD) Non-Af 10 L, BUN/Creatinine Ratio 4.6 L, Glucose 199 H, Calcium 7.9 L 03/02/21 08:22: POC Glucose 167 H 03/02/21 12:12: POC Glucose 192 H Rhythm Strip Rhythm Strip: Sinus Rhythm Rate: 95 Ectopy: PAC(s) Physical Exam Const alert, oriented x3 and no apparent distress Orientation / Consciousness: awake, oriented to person, oriented to place and oriented to time HEENT normocephalic and moist oral mucous membranes Eyes PERRL, EOMs intact bilaterally and conjunctivae normal Neck no lymphadenopathy Resp normal respiratory effort and clear to auscultation bilaterally Cardio regular rate, regular rhythm and no murmurs Peripheral Pulses: pulses 2+ throughout GI normal to inspection, nondistended, normoactive bowel sounds, non-tender and n on-distended Extremity normal to inspection Skin no rashes or lesions noted Lesions: no lesions Rashes: no rashes Trauma: no lacerations or abrasions Neuro CN's II-XII intact bilaterally, no focal motor deficits, no sensory deficits noted and deep tendon reflexes 2+ bilaterally Psych Mood & Affect: flat affect Assessment & Plan Assessment/Plan (1) TEODORO (acute kidney injury): PLAN: 1. Acute kidney injury-nephrology following. Suspect prerenal related to poor oral intake, recent nausea/vomiting. Continue IV fluids, trend BMP. Slowly improving. 2. Musculoskeletal chest pain- troponin negative. Echo demonstrated EF 60%, stage 2 diastolic dysfunction. 3. Type 2 diabetes mellitus- accuchecks with SSI. Continue home insulin regimen. 4. CAD- aspirin, plavix, statin, metoprolol. 5. Hypertension- stable, metoprolol. Losartan on hold. As needed hydralazine for systolic blood pressure greater than 160. 6. Hyperlipidemia-continue statin. 7. History of CVA-on aspirin, Plavix, statin. 8. Normocytic anemia-below baseline however appears stable. Trend CBC. 9. Recent E. coli UTI with bacteremia-completed previously prescribed course of Cipro. 10. Constipation-continue aggressive bowel regimen. DVT prophylaxis-Heparin subcu This patient was seen by GABY Shukla under the supervision of Dr. Anderson. Documented by User: Dr. Dc Anderson MD 03/02/21 17:01 Objective Data Lab / Micro Data Result Diagrams: 02/28/21 05:40 03/02/21 05:35 Charges/Coding Addendum Addendum: Dr. Anderson: I personally reviewed the chart and examined the patient, and agree with the above findings. 70-year-old female presents to the hospital for chest pain and vomiting since the night prior to admission. Evaluation demonstrated negative troponin with an echo that demonstrated normal EF of 60% with stage II diastolic dysfunction. This was felt to be musculoskeletal chest pain. However with her vomiting and her decreased oral intake she was found to have an acute kidney injury which is now ATN, this is also slightly complicated by her being on an antibiotic prior to admission secondary to a UTI as well as a CT with contrast recently on 02/13/2021 as well as 02/17/2021. Her creatinine is slowly improving, appreciate nephrology's assistance. She is also complaining of having some constipation therefore will attempt to address that as much as possible. 03/02/2021: Continues to have issues with constipation, will attempt GoLYTELY as the enema did not appear to work. Her creatinine is improving slowly,, will DC IV fluids per nephrology's recommendations and assess. Visit Charges Inpatient E&M: 75491 Subs Hosp L2
[2021-03-02] MEDS: Electrolyte Solution/Peg's 4000 ML 1000 ML PO (15:29)
--- NOTE | 2021-03-02 16:47 | PCM.PN.REN ---
Subjective Subjective still nausea Objective Data Objective Data Vital Signs: Vital Signs Temp Pulse Resp BP Pulse Ox 97.9 F 76 18 173/79 H 98 03/02/21 15:45 03/02/21 15:45 03/02/21 15:45 03/02/21 15:45 03/02/21 15:45 Oxygen Flow Rate (L/min) 2 Oxygen Delivery Method Room Air Weight: 68.5 kg Body Mass Index (BMI) 30.4 Intake & Output: Intake and Output for Last 24 Hours 02/28/21 03/01/21 03/02/21 23:59 23:59 23:59 Intake Total 4421.67 / 4421.67 3480.83 / 3480.83 2380.42 / 2380.42 Output Total 2775 / 2775 3950 / 3950 2900 / 2900 Balance 1646.67 / 1646.67 -469.17 / -469.17 -519.58 / -519.58 Lab / Micro Data Result Diagrams: 02/28/21 05:40 03/02/21 05:35 Labs: Laboratory Results - last 24 hr 03/01/21 22:00: POC Glucose 81 03/02/21 05:35: Sodium 146 H, Potassium 3.4 L, Chloride 113 H, Carbon Dioxide 23.0, Anion Gap 10, BUN 22 H, Creatinine 4.78 H, Estim Creat Clear Calc 11.67, Est GFR (MDRD) Af Amer 12 L, Est GFR (MDRD) Non-Af 10 L, BUN/Creatinine Ratio 4.6 L, Glucose 199 H, Calcium 7.9 L 03/02/21 08:22: POC Glucose 167 H 03/02/21 12:12: POC Glucose 192 H Rhythm Strip Rhythm Strip: Sinus Rhythm Rate: 95 Ectopy: PAC(s) Physical Exam Const alert, oriented x3 and no apparent distress General Appearance: cooperative and comfortable HEENT normocephalic Resp normal respiratory effort, normal air movement and clear to auscultation bilaterally Cardio regular rate Cardio Narrative: 1+ lower extremity edema Narrative: Indwelling German with clear urine in bag Assessment & Plan Assessment/Plan (1) TEODORO (acute kidney injury): (2) Atypical chest pain: (3) Bacteremia: (4) Hypertension: PLAN: Normal baseline as of 20 April. Went home, came back on the with worsening renal function. She did have a CT with contrast on the . Urine analysis is comparable to before. Urine sodium is high. ? ATN from contrast versus volume depletion. Urine output is okay. Creatinine is trending down. Other electrolytes are acceptable. Sodium is high, likely related to poor oral intake. cr better. BP is higher now. dc fluids and assess.
[2021-03-02 16:50] LABS: Bedside Glucose 63 mg/dL (70-110)
[2021-03-02 18:25] LABS: Bedside Glucose 128 mg/dL (70-110)
[2021-03-02] MEDS: Albuterol 2.5 MG/3 ML VIAL.NEB. INHALATION (19:18)
[2021-03-02] MEDS: Pravastatin 40 MG Tablet PO (21:59)
[2021-03-02 22:05] LABS: Bedside Glucose 154 mg/dL (70-110)
[2021-03-03] VITALS (8 sets, daily range): BP systolic 133–160; BP diastolic 67–93; PULSE 65–96; RESP 16; TEMP 36.2–36.8; O2SAT 97–99
[2021-03-03] MEDS: proMETHazine 25 MG Tablet PO ×2 (04:31→12:37)
[2021-03-03 06:34] LABS: Anion Gap 9 (5-15); BUN 20 mg/dL (7-18); BUN/Creat Ratio 4.9 RATIO (10-20); Calcium,Total 7.9 mg/dL (8.5-10.1); Chloride 111 mmol/L (98-107); Creatinine, Serum 4.11 mg/dL (0.55-1.02); EST Glomerular Filtration Rate 11 mL/min (>60); Est Glom Filt Rate - Afr Amer 14 mL/min (>60); Estimated Creatinine Clearance 13.58 ml/min; Glucose 179 mg/dL (74-106); Potassium 3.2 mmol/L (3.5-5.1); Sodium Level 147 mmol/L (136-145)
[2021-03-03] MEDS: Clopidogrel Bisulfate 75 MG Tablet PO (08:35)
[2021-03-03] MEDS: Tolterodine Tartrate 4 MG CAP.SA PO (08:35)
[2021-03-03] MEDS: Pantoprazole Sodium 40 MG Tablet PO (08:36)
[2021-03-03] MEDS: Cholecalciferol (VIT D3) 25 MCG TABLET (1,000 UNITS) 75 MCG PO (08:36)
[2021-03-03] MEDS: Cyanocobalamin 500 MCG Tablet 1000 MCG PO (08:39)
[2021-03-03] MEDS: Aspirin E.C. 81 MG Tablet PO (08:39)
[2021-03-03] MEDS: Heparin Injection (Vial) 5,000 UNIT/ML VIAL 5000 UNIT SC (08:40)
[2021-03-03] MEDS: Metoprolol Tartrate 25 MG Tablet 12.5 MG PO (08:40)
[2021-03-03] MEDS: busPIRone 15 MG TABLET PO (08:41)
[2021-03-03] MEDS: Docusate Sodium 100 MG Capsule 200 MG PO (08:49)
[2021-03-03] MEDS: Insulin Lispro 100 UNIT/ML INSULN.PEN SC (08:59)
[2021-03-03] MEDS: Potassium Chloride Oral Tablet 20 MEQ 40 MEQ PO (09:09)
[2021-03-03 09:16] LABS: Bedside Glucose 213 mg/dL (70-110)
[2021-03-03 12:41] LABS: Bedside Glucose 142 mg/dL (70-110)
--- NOTE | 2021-03-03 12:58 | PN.HOSP_ITS ---
Subjective Subjective Patient seen and examined. Flat affect. Continues to report nausea however still no emesis. Denies abdominal pain. States she is still only had a small amount of stool and reports ongoing constipation. Requesting additional enema. Kidney function continues to improve. Objective Data Objective Data Vital Signs: Vital Signs Temp Pulse Resp BP Pulse Ox 97.9 F 79 16 160/77 H 97 03/03/21 12:42 03/03/21 12:42 03/03/21 12:42 03/03/21 12:42 03/03/21 12:42 Oxygen Flow Rate (L/min) 2 Oxygen Delivery Method Room Air Weight: 151 lb 0.266 oz Body Mass Index (BMI) 30.4 Intake & Output: Intake and Output for Last 24 Hours 03/01/21 03/02/21 03/03/21 23:59 23:59 23:59 Intake Total 3480.83 / 3480.83 2890.84 / 2890.84 430 / 430 Output Total 3950 / 3950 3400 / 3400 1150 / 1150 Balance -469.17 / -469.17 -509.16 / -509.16 -720 / -720 Lab / Micro Data Result Diagrams: 02/28/21 05:40 03/03/21 05:44 Labs: Laboratory Results - last 24 hr 03/02/21 16:42: POC Glucose 63 L 03/02/21 18:16: POC Glucose 128 H 03/02/21 21:55: POC Glucose 154 H 03/03/21 05:44: Sodium 147 H, Potassium 3.2 L, Chloride 111 H, Carbon Dioxide 27.0, Anion Gap 9, BUN 20 H, Creatinine 4.11 H, Estim Creat Clear Calc 13.58, Est GFR (MDRD) Af Amer 14 L, Est GFR (MDRD) Non-Af 11 L, BUN/Creatinine Ratio 4.9 L, Glucose 179 H, Calcium 7.9 L 03/03/21 08:57: POC Glucose 213 H 03/03/21 12:33: POC Glucose 142 H Rhythm Strip Rhythm Strip: Sinus Rhythm Rate: 95 Ectopy: PAC(s) Physical Exam Const alert, oriented x3 and no apparent distress Orientation / Consciousness: awake, oriented to person, oriented to place and oriented to time HEENT normocephalic and moist oral mucous membranes Eyes PERRL, EOMs intact bilaterally and conjunctivae normal Neck no lymphadenopathy Resp normal respiratory effort and clear to auscultation bilaterally Cardio regular rate, regular rhythm and no murmurs Peripheral Pulses: pulses 2+ throughout GI normal to inspection, nondistended, normoactive bowel sounds, non-tender and non-distended Extremity normal to inspection Skin no rashes or lesions noted Lesions: no lesions Rashes: no rashes Trauma: no lacerations or abrasions Neuro CN's II-XII intact bilaterally, no focal motor deficits, no sensory deficits noted and deep tendon reflexes 2+ bilaterally Psych Mood & Affect: flat affect Assessment & Plan Assessment/Plan (1) TEODORO (acute kidney injury): PLAN: 1. Acute kidney injury-nephrology following. Suspect prerenal related to poor oral intake, recent nausea/vomiting. Improving. Further IV f luids discontinued. Will need further outpatient monitoring of BMP and nephrology follow-up. Likely discharge 03/04/2021 if continued improvement. 2. Musculoskeletal chest pain- troponin negative. Echo demonstrated EF 60%, stage 2 diastolic dysfunction. 3. Type 2 diabetes mellitus- accuchecks with SSI. Continue home insulin regimen. 4. CAD- aspirin, plavix, statin, metoprolol. 5. Hypertension- stable, metoprolol. Losartan on hold. As needed hydralazine for systolic blood pressure greater than 160. Blood pressure above goal, add amlodipine. 6. Hyperlipidemia-continue statin. 7. History of CVA-on aspirin, Plavix, statin. 8. Normocytic anemia-below baseline however appears stable. Trend CBC. 9. Recent E. coli UTI with bacteremia-completed previously prescribed course of Cipro. 10. Constipation-continue aggressive bowel regimen. KUB 02/28/2021 with nonobstructive bowel gas pattern, moderate amount of retained stool in the colon. Patient had recent CT of abdomen 02/17/2021 which demonstrated no acute findings, gallbladder sludge. DVT prophylaxis-Heparin subcu Discharge planning: Anticipate discharge 03/04/2021 if continued creatinine improvement and improvement in constipation. This patient was seen by GABY Shukla under the supervision of Dr. Anderson.
[2021-03-03] MEDS: Electrolyte Solution/Peg's 4000 ML 1000 ML PO (14:12)
[2021-03-03] MEDS: amLODIPine 5 MG Tablet PO (14:12)
--- NOTE | 2021-03-03 14:38 | PCM.DC ---
Discharge Instructions Diet Discharge Diet: Light diet - advance as tolerated Activity Discharge Activity: Return to Normal Activity Dressing / Incision Call your doctor if you observe: Shortness of breath, Dizziness and Chest pain Follow Up Care Test Results: Test results from this visit will be discussed in further detail at your follow-up appointment, if applicable. Discharge Plan Admission Admit Date/Time: 02/23/21 15:26 Primary Reason for Your Visit: Acute kidney injury Attending Provider: Dc Anderson Primary Care Provider: Trinity Baird Consulting Providers: Hai Richard Instructions Additional Instructions / Restrictions: Patient Problems: Altered Health Status related to Hospitalization Patient Goals: *Optimal Level of Health *Keep Appointments *Medication Compliance *Remain Safe Discharge Orders/Prescriptions Prescriptions: New amlodipine 5 mg Tablet 5 mg PO DAILY Qty: 30 RF: 0 Lantus Solostar U-100 Insulin 100 unit/mL (3 mL) Insulin Pen 15 units subcut QHS Qty: 0 RF: 0 ondansetron HCl [Zofran] 4 mg tablet 4 mg PO Q8H PRN (Reason: nausea and vomiting) Qty: 20 RF: 0 Continued metoprolol tartrate 25 mg tablet 12.5 mg PO BID RF: 0 aspirin 81 MG tablet 81 mg PO DAILY@0800 RF: 0 cholecalciferol (vitamin D3) 1,000 UNIT tablet,chewable 3,000 unit PO DAILY@0800 RF: 0 clopidogrel 75 MG tablet 75 mg PO DAILY Qty: 30 RF: 0 insulin lispro 100 UNIT/ML insulin pen 10 unit SC TIDCM RF: 0 pravastatin 40 mg tablet 40 mg PO QHS RF: 0 cyanocobalamin (vitamin B-12) 1,000 mcg Tablet 1,000 mcg PO DAILY RF: 0 omeprazole 40 mg capsule,delayed release(DR/EC) 40 mg PO BID RF: 0 docusate sodium 100 mg Capsule 100 mg PO BID RF: 0 solifenacin 10 mg tablet 10 mg PO QHS RF: 0 Held buspirone 15 mg tablet 15 mg PO BID RF: 0 Hold Instructions: Resume on 03/17/21. Hold until kidney function returns to baseline Discontinued losartan 50 mg tablet 50 mg PO DAILY RF: 0 insulin glargine 100 UNITS/ML insulin pen 22 units SC QHS RF: 0 ciprofloxacin HCl [Cipro] 500 mg tablet 500 mg PO BID Qty: 14 RF: 0 Referrals / Follow Up: Hai Richard MD [STAFF PHYSICIAN] - In 1 Week Trinity Baird MD [Primary Care Provider] - See Referral Note (3-5 days) Philip Drummond DO [STAFF PHYSICIAN] - See Referral Note (Call for GI follow-up for persistent nausea) Disposition Disposition (needs filled in before D/C Order can be placed): Home, Self Care
--- NOTE | 2021-03-03 14:48 | PCM.DC.SUM ---
Documented by User: Maggie Arroyo NP, NUCLEAR MEDICINE TECH-C 03/03/21 14:55 Providers Date of Admission: 02/23/21 Date of Discharge: 03/03/21 Primary Care Physician: Dr. Trinity Baird MD Consultations 02/23/21 15:40 Consult: Nephrology Routine Consulting Provider: Hai Richard Reason for Consult: TEODORO, EMERGENT Consult: No MD Notified: Yes Date Notified: 02/23/21 Time Notified: 15:40 Method of Notification: Answering Service Reason For Visit: ACUTE KIDNEY INJURY ATYPICAL CHEST PAIN Diagnosis Discharge Diagnosis (1) TEODORO (acute kidney injury): Status: Acute Code(s): N17.9 - Acute kidney failure, unspecified Medications at Discharge Home Medications aspirin 81 mg PO DAILY@0800 06/14/18 cholecalciferol (vitamin D3) 3,000 unit PO DAILY@0800 06/14/18 clopidogrel 75 mg PO DAILY #30 tab 06/19/18 metoprolol tartrate 25 mg tablet 12.5 mg PO BID tab 07/10/19 insulin lispro 10 unit SC TIDCM 07/23/19 buspirone 15 mg tablet 15 mg PO BID tab 07/10/20 cyanocobalamin (vitamin B-12) 1,000 mcg PO DAILY 02/23/21 docusate sodium 100 mg PO BID 02/23/21 omeprazole 40 mg PO BID 02/23/21 pravastatin 40 mg PO QHS 02/23/21 solifenacin 10 mg PO QHS 02/23/21 amlodipine 5 mg PO DAILY #30 tab 03/03/21 insulin glargine [Lantus Solostar U-100 Insulin] 15 units SUBCUT QHS #0 ml 03/03/21 ondansetron HCl [Zofran] 4 mg PO Q8H PRN #20 tab 03/03/21 Hospital Course Operations None Procedures 2-D Echocardiogram Summary of Care Provided Minutes Spent on Discharge: 35 Hospital Course: Patient is a 70-year-old female admitted 02/23/2021 due to vomiting. 1. Acute kidney injury-nephrology consulted during admission. Suspect prerenal related to poor oral intake, recent nausea/vomiting. Improving. Further IV fluids discontinued. Will need further outpatient monitoring of BMP and nephrology follow-up. Repeat BMP on Monday by PCP or nephrology. 2. Musculoskeletal chest pain- troponin negative. Echo demonstrated EF 60%, stage 2 diastolic dysfunction. 3. Type 2 diabetes mellitus-continue home insulin regimen. 4. CAD- aspirin, plavix, statin, metoprolol. 5. Hypertension- stable, metoprolol. Losartan discontinued. Amlodipine added given blood pressure above goal. 6. Hyperlipidemia-continue statin. 7. History of CVA-on aspirin, Plavix, statin. 8. Normocytic anemia-below baseline however appears stable. 9. Recent E. coli UTI with bacteremia-completed previously prescribed course of Cipro. 10. Constipation, persistent nausea-continue bowel regimen. KUB 02/28/2021 with nonobstructive bowel gas pattern, moderate amount of retained stool in the colon. Patient had recent CT of abdomen 02/17/2021 which demonstrated no acute findings, gallbladder sludge. Patient had GoLYTELY, enema and oral bowel regimen during admission. Although she had multiple bowel movements, she still feels like treatment is not working. Per nursing, patient has had daily bowel movements. Continue bowel regimen at discharge. Referred to GI as outpatient due to ongoing complaint of nausea, no emesis. Further outpatient follow-up as patient has remained stable. Physical Exam Const alert, oriented x3 and no apparent distress Orientation / Consciousness: awake, oriented to person, oriented to place and oriented to time HEENT normocephalic and moist oral mucous membranes Eyes PERRL, EOMs intact bilaterally and conjunctivae normal Neck no lymphadenopathy Resp normal respiratory effort and clear to auscultation bilaterally Cardio regular rate, regular rhythm and no murmurs Peripheral Pulses: pulses 2+ throughout GI normal to inspection, nondistended, normoactive bowel sounds, non-tender and non-distended Extremity normal to inspection Skin no rashes or lesions noted Lesions: no lesions Rashes: no rashes Trauma: no lacerations or abrasions Neuro CN's II-XII intact bilaterally, no focal motor deficits, no sensory deficits noted and deep tendon reflexes 2+ bilaterally Psych Mood & Affect: flat affect Patient seen and examined prior to discharge. Physical assessment as noted above. Patient is stable for discharge with follow up recommendations as noted above. This patient was seen by GABY Shukla under the supervision of Dr. Anderson. Weight / BMI Weight Weight: 151 lb 0.266 oz Body Mass Index (BMI) 30.4 ABG / Lab / Microbiology Data Result Diagrams: 02/28/21 05:40 03/03/21 05:44 Laboratory: Laboratory Results - last 24 hr 03/02/21 16:42: POC Glucose 63 L 03/02/21 18:16: POC Glucose 128 H 03/02/21 21:55: POC Glucose 154 H 03/03/21 05:44: Sodium 147 H, Potassium 3.2 L, Chloride 111 H, Carbon Dioxide 27.0, Anion Gap 9, BUN 20 H, Creatinine 4.11 H, Estim Creat Clear Calc 13.58, Est GFR (MDRD) Af Amer 14 L, Est GFR (MDRD) Non-Af 11 L, BUN/Creatinine Ratio 4.9 L, Glucose 179 H, Calcium 7.9 L 03/03/21 08:57: POC Glucose 213 H 03/03/21 12:33: POC Glucose 142 H D/C Instructions Discharge Diet: Light diet - advance as tolerated Call your doctor if you observe: Shortness of breath, Dizziness and Chest pain Meaningful Use Info Meaningful Use Diagnoses (Choose all that apply): None applicable Discharge Plan Admission Admit Date/Time: 02/23/21 15:26 Primary Reason for Your Visit: Acute kidney injury Attending Provider: Dc Anderson Primary Care Provider: Trinity Baird Consulting Providers: Hai Richard Instructions Additional Instructions / Restrictions: Patient Problems: Altered Health Status related to Hospitalization Patient Goals: *Optimal Level of Health *Keep Appointments *Medication Compliance *Remain Safe Discharge Orders/Prescriptions Prescriptions: New amlodipine 5 mg Tablet 5 mg PO DAILY Qty: 30 RF: 0 Lantus Solostar U-100 Insulin 100 unit/mL (3 mL) Insulin Pen 15 units subcut QHS Qty: 0 RF: 0 ondansetron HCl [Zofran] 4 mg tablet 4 mg PO Q8H PRN (Reason: nausea and vomiting) Qty: 20 RF: 0 Continued metoprolol tartrate 25 mg tablet 12.5 mg PO BID RF: 0 aspirin 81 MG tablet 81 mg PO DAILY@0800 RF: 0 cholecalciferol (vitamin D3) 1,000 UNIT tablet,chewable 3,000 unit PO DAILY@0800 RF: 0 clopidogrel 75 MG tablet 75 mg PO DAILY Qty: 30 RF: 0 insulin lispro 100 UNIT/ML insulin pen 10 unit SC TIDCM RF: 0 pravastatin 40 mg tablet 40 mg PO QHS RF: 0 cyanocobalamin (vitamin B-12) 1,000 mcg Tablet 1,000 mcg PO DAILY RF: 0 omeprazole 40 mg capsule,delayed release(DR/EC) 40 mg PO BID RF: 0 docusate sodium 100 mg Capsule 100 mg PO BID RF: 0 solifenacin 10 mg tablet 10 mg PO QHS RF: 0 Held buspirone 15 mg tablet 15 mg PO BID RF: 0 Hold Instructions: Resume on 03/17/21. Hold until kidney function returns to baseline Discontinued losartan 50 mg tablet 50 mg PO DAILY RF: 0 insulin glargine 100 UNITS/ML insulin pen 22 units SC QHS RF: 0 ciprofloxacin HCl [Cipro] 500 mg tablet 500 mg PO BID Qty: 14 RF: 0 Referrals / Follow Up: Hai Richard MD [STAFF PHYSICIAN] - 03/24/21 4:00 pm (Appointment is with Payton Alexander) Philip Drummond DO [STAFF PHYSICIAN] - 03/11/21 3:00 pm (Call for GI follow-up for persistent nausea) Johanna Mathew NP, JERAMY-C [NON-STAFF] - 03/08/21 10:20 am Disposition Disposition (needs filled in before D/C Order can be placed): Home, Self Care Documented by User: Dr. Dc Anderson MD 03/04/21 15:59 Providers Date of Admission: 02/23/21 Reason For Visit: ACUTE KIDNEY INJURY ATYPICAL CHEST PAIN Medications at Discharge Home Medications aspirin 81 mg PO DAILY@0800 06/14/18 cholecalciferol (vitamin D3) 3,000 unit PO DAILY@0800 06/14/18 clopidogrel 75 mg PO DAILY #30 tab 06/19/18 metoprolol tartrate 25 mg tablet 12.5 mg PO BID tab 07/10/19 insulin lispro 10 unit SC TIDCM 07/23/19 buspirone 15 mg tablet 15 mg PO BID tab 07/10/20 cyanocobalamin (vitamin B-12) 1,000 mcg PO DAILY 02/23/21 docusate sodium 100 mg PO BID 02/23/21 omeprazole 40 mg PO BID 02/23/21 pravastatin 40 mg PO QHS 02/23/21 solifenacin 10 mg PO QHS 02/23/21 amlodipine 5 mg PO DAILY #30 tab 03/03/21 insulin glargine [Lantus Solostar U-100 Insulin] 15 units SUBCUT QHS #0 ml 03/03/21 ondansetron HCl [Zofran] 4 mg PO Q8H PRN #20 tab 03/03/21 ABG / Lab / Microbiology Data Result Diagrams: 02/28/21 05:40 03/03/21 05:44 Discharge Plan Admission Admit Date/Time: 02/23/21 15:26 Primary Reason for Your Visit: Acute kidney injury Attending Provider: Dc Anderson Primary Care Provider: Trinity Baird Consulting Providers: Hai Richard Instructions Additional Instructions / Restrictions: Patient Problems: Altered Health Status related to Hospitalization Patient Goals: *Optimal Level of Health *Keep Appointments *Medication Compliance *Remain Safe Discharge Orders/Prescriptions Prescriptions: New amlodipine 5 mg Tablet 5 mg PO DAILY Qty: 30 RF: 0 Lantus Solostar U-100 Insulin 100 unit/mL (3 mL) Insulin Pen 15 units subcut QHS Qty: 0 RF: 0 ondansetron HCl [Zofran] 4 mg tablet 4 mg PO Q8H PRN (Reason: nausea and vomiting) Qty: 20 RF: 0 Continued metoprolol tartrate 25 mg tablet 12.5 mg PO BID RF: 0 aspirin 81 MG tablet 81 mg PO DAILY@0800 RF: 0 cholecalciferol (vitamin D3) 1,000 UNIT tablet,chewable 3,000 unit PO DAILY@0800 RF: 0 clopidogrel 75 MG tablet 75 mg PO DAILY Qty: 30 RF: 0 insulin lispro 100 UNIT/ML insulin pen 10 unit SC TIDCM RF: 0 pravastatin 40 mg tablet 40 mg PO QHS RF: 0 cyanocobalamin (vitamin B-12) 1,000 mcg Tablet 1,000 mcg PO DAILY RF: 0 omeprazole 40 mg capsule,delayed release(DR/EC) 40 mg PO BID RF: 0 docusate sodium 100 mg Capsule 100 mg PO BID RF: 0 solifenacin 10 mg tablet 10 mg PO QHS RF: 0 Held buspirone 15 mg tablet 15 mg PO BID RF: 0 Hold Instructions: Resume on 03/17/21. Hold until kidney function returns to baseline Discontinued losartan 50 mg tablet 50 mg PO DAILY RF: 0 insulin glargine 100 UNITS/ML insulin pen 22 units SC QHS RF: 0 ciprofloxacin HCl [Cipro] 500 mg tablet 500 mg PO BID Qty: 14 RF: 0 Referrals / Follow Up: Hai Richard MD [STAFF PHYSICIAN] - 03/24/21 4:00 pm (Appointment is with Payton Alexander) FriendPhilip DO [STAFF PHYSICIAN] - 03/11/21 3:00 pm (Call for GI follow-up for persistent nausea) Johanna Mathew NUCLEAR MEDICINE TECH, NUCLEAR MEDICINE TECH-C [NON-STAFF] - 03/08/21 10:20 am Disposition Disposition (needs filled in before D/C Order can be placed): Home, Self Care Charges/Coding Addendum Addendum: Dr. Anderson: I personally reviewed the chart and examined the patient, and agree with the above findings. 70-year-old female presents to the hospital for chest pain and vomiting since the night prior to admission. Evaluation demonstrated negative troponin with an echo that demonstrated normal EF of 60% with stage II diastolic dysfunction. This was felt to be musculoskeletal chest pain. However with her vomiting and her decreased oral intake she was found to have an acute kidney injury which is now ATN, this is also slightly complicated by her being on an antibiotic prior to admission secondary to a UTI as well as a CT with contrast recently on 02/13/2021 as well as 02/17/2021. Her creatinine is slowly improving, appreciate nephrology's assistance. She is also complaining of having some constipation therefore will attempt to address that as much as possible. 03/02/2021: Continues to have issues with constipation, will attempt GoLYTELY as the enema did not appear to work. Her creatinine is improving slowly,, will DC IV fluids per nephrology's recommendations and assess. 03/04/2021: She continues to complain about constipation however discussed with her that after GoLYTELY as well as an enema she likely does not have anything in her and that she is not having a bowel movement simply because she has not been eating or drinking very well. Her creatinine is improving well, and discussed the situation with nephrology who is okay with discharge today secondary to a creatinine of 4.11. They will see her as an outpatient to monitor her renal function. Given her nausea and her vomiting, I do recommend she follow-up with gastroenterology as an outpatient for possible scope as well as diet adjustment. I discussed with her the plan for discharge today and she expressed understanding the risk benefits going home and would like to go home today. Visit Charges Inpatient E&M: 20555 Disch Hosp
--- NOTE | 2021-03-03 14:56 | CASEMGMT ---
Call to Addie at [facility] to advised that pt to be discharged today. C already placed for SN, PT/OT, SW. Pt ambulated 275ft with therapy supervision yesterday. Pt states plan is still to go home with [facility] at discharge. Pt voices no further questions/concerns/needs. Martine APONTE CM
--- NOTE | 2021-03-03 15:06 | PHA.DC.MC ---
Pharmacy Service has performed discharge medication reconciliation and counseling for this patient. 1. AMLODIPINE 5MG PO DAILY 2. ONDANSETRON 4MG PO Q8H PRN NAUSEA/VOMITING The patient's discharge medication list was reviewed for discrepancies and discrepancies were resolved. Patient requesting a prescription for something to help with dry mouth to which this [facility] suggested Biotene OTC. This [facility] spoke to JERAMY Lennon to notify her. Home Medications aspirin 81 mg PO DAILY@0800 06/14/18 cholecalciferol (vitamin D3) 3,000 unit PO DAILY@0800 06/14/18 clopidogrel 75 mg PO DAILY #30 tab 06/19/18 metoprolol tartrate 25 mg tablet 12.5 mg PO BID tab 07/10/19 insulin lispro 10 unit SC TIDCM 07/23/19 buspirone 15 mg tablet 15 mg PO BID tab 07/10/20 cyanocobalamin (vitamin B-12) 1,000 mcg PO DAILY 02/23/21 docusate sodium 100 mg PO BID 02/23/21 omeprazole 40 mg PO BID 02/23/21 pravastatin 40 mg PO QHS 02/23/21 solifenacin 10 mg PO QHS 02/23/21 amlodipine 5 mg PO DAILY #30 tab 03/03/21 insulin glargine [Lantus Solostar U-100 Insulin] 15 units SUBCUT QHS #0 ml 03/03/21 ondansetron HCl [Zofran] 4 mg PO Q8H PRN #20 tab 03/03/21 The patient was counseled on the following discharge medications and changes in medications for homegoing were reviewed. The Reason for Use, instructions for use, and potential side effects were reviewed for all new medications. The patient's questions regarding all of their medications were answered. The patient was able to verbally demonstrate an understanding of their discharge medications.
--- NOTE | 2021-03-03 16:53 | PN.RENAL_ITS ---
Subjective Subjective no new events Objective Data Objective Data Vital Signs: Vital Signs Temp Pulse Resp BP Pulse Ox 97.9 F 71 16 160/77 H 97 03/03/21 12:42 03/03/21 14:49 03/03/21 12:42 03/03/21 12:42 03/03/21 12:42 Oxygen Flow Rate (L/min) 2 Oxygen Delivery Method Room Air Weight: 68.5 kg Body Mass Index (BMI) 30.4 Intake & Output: Intake and Output for Last 24 Hours 03/01/21 03/02/21 03/03/21 23:59 23:59 23:59 Intake Total 3480.83 / 3480.83 2890.84 / 2890.84 430 / 430 Output Total 3950 / 3950 3400 / 3400 1150 / 1150 Balance -469.17 / -469.17 -509.16 / -509.16 -720 / -720 Lab / Micro Data Result Diagrams: 02/28/21 05:40 03/03/21 05:44 Labs: Laboratory Results - last 24 hr 03/02/21 18:16: POC Glucose 128 H 03/02/21 21:55: POC Glucose 154 H 03/03/21 05:44: Sodium 147 H, Potassium 3.2 L, Chloride 111 H, Carbon Dioxide 27.0, Anion Gap 9, BUN 20 H, Creatinine 4.11 H, Estim Creat Clear Calc 13.58, Est GFR (MDRD) Af Amer 14 L, Est GFR (MDRD) Non-Af 11 L, BUN/Creatinine Ratio 4.9 L, Glucose 179 H, Calcium 7.9 L 03/03/21 08:57: POC Glucose 213 H 03/03/21 12:33: POC Glucose 142 H Rhythm Strip Rhythm Strip: Sinus Rhythm Rate: 95 Ectopy: PAC(s) Physical Exam Const alert, oriented x3 and no apparent distress General Appearance: cooperative and comfortable HEENT normocephalic Resp normal respiratory effort, normal air movement and clear to auscultation bilaterally Cardio regular rate Cardio Narrative: 1+ lower extremity edema Narrative: Indwelling German with clear urine in bag Assessment & Plan Assessment/Plan (1) TEODORO (acute kidney injury): (2) Atypical chest pain: (3) Bacteremia: (4) Hypertension: PLAN: Normal baseline as of 20 April. Went home, came back on the with worsening renal function. She did have a CT with contrast on the . Urine analysis is comparable to before. Urine sodium is high. ? ATN from contrast versus volume depletion. Urine output is okay. Creatinine is sina nding down. Other electrolytes are acceptable. Sodium is high, likely related to poor oral intake. cr better. ok to dc.
[2021-03-03 17:31] LABS: Bedside Glucose 160 mg/dL (70-110)
[2021-03-03] MEDS: FLUCONAZOLE 150 MG TABLET 75 MG PO (18:46)
--- NOTE | 2021-03-04 14:41 | CASEMGMT ---
FADI CHILEL Discharge Follow-Up Phone Call. Lace: 15 Strata: 4 Discharge Date: 03/03/21 Adm Dx: TEODORO w/atypical CP Call to pt to inquire about how she has been doing since being discharged from the hospital. Pt states she is still feeling weak, but is doing better than she was and is improving a little each day. She states [facility] nurse was out to see her today. She denies having any questions about the discharge instructions or medications. She states she did receive the new rx's Amlodipine and Zofran from [facility] retail pharmacy and is aware of the 3 medications she is to stop taking. She states the appt w/Johanna Mathew NP, for 03/08 was rescheduled to 03/10 per her request. FADI CHILEL reviewed the other appts w/Dr Drummond and [facility] for Dr Richard w/pt. Pt states, Oh, I wasn't aware of those. FADI CHILEL informed pt these are listed on the discharge instructions and pt stated, Oh, okay. Thank you. Pt states [facility] is continuing to assist her w/getting an aide for light housekeeping and Meals on Wheels. Pt made aware a referral was started by while pt @ [facility]. Pt voiced appreciation. Kisha BRAVO RN, CM
== END 2021-03-03 18:59 | disposition home or self-care (01) | DRG 683 ==
LOC: ED 13:51 → PCU 15:40
PROVIDERS: Internal Medicine; Internal Medicine Nephrology; Nurse Practitioner Adult Health; Nurse Practitioner Family; Admitting Provider Internal Medicine; Emergency Provider Emergency Medicine; PCP Internal Medicine; Visit Provider Family Medicine
DX: N17.0 Acute kidney failure with tubular necrosis (principal); N39.0 Urinary tract infection, site not specified; R78.81 Bacteremia; R07.89 Other chest pain; E11.9 Type 2 diabetes mellitus without complications; I25.10 Atherosclerotic heart disease of native coronary artery without angina pectoris; I10 Essential (primary) hypertension; E78.5 Hyperlipidemia, unspecified; B96.20 Unspecified Escherichia coli [E. coli] as the cause of diseases classified elsewhere; K59.00 Constipation, unspecified; D64.9 Anemia, unspecified; Z86.73 Personal history of transient ischemic attack (TIA), and cerebral infarction without residual deficits; Z79.4 Long term (current) use of insulin; I25.2 Old myocardial infarction; Z86.718 Personal history of other venous thrombosis and embolism; Z86.711 Personal history of pulmonary embolism; Z87.891 Personal history of nicotine dependence; Z95.1 Presence of aortocoronary bypass graft; Z66 Do not resuscitate; F41.9 Anxiety disorder, unspecified; N32.81 Overactive bladder; Z79.02 Long term (current) use of antithrombotics/antiplatelets; Z79.82 Long term (current) use of aspirin; Z87.440 Personal history of urinary (tract) infections; Z88.0 Allergy status to penicillin; Z88.2 Allergy status to sulfonamides; Z88.5 Allergy status to narcotic agent; I35.8 Other nonrheumatic aortic valve disorders
CPT/HCPCS: 36415; 71045; 74018; 76770; 80048; 80061; 81001; 82570; 82962; 83540; 83550; 83735; 83880; 84100; 84300; 84484; 85025; 93005; 93306; 94640; 97110; 97116; 97162; 97166; 97530; 97535; 99251; 99285; J7030; J7040; Q9957; A4216; C8929; G0463; J2405; J3490

== ENCOUNTER 2021-07-15 15:32 | Emergency (ER) | payer MEDICARE, MEDICAID, SELFPAY ==
[2021-07-15 15:33] VITALS: BP 169/79; PULSE 92; PULSE 96; RESP 18; TEMP 36.4; O2SAT 98; BMI 33.3
[2021-07-15 15:47] VITALS: BP 117/93
--- NOTE | 2021-07-15 16:10 | CT_ITS ---
STUDY: CT BRAIN WITHOUT CONTRAST REASON FOR EXAM: Female, 71 years old. pain and numbness around her nose RADIATION DOSAGE (If Supplied By Facility): CTDIvol = ( 44.99 ) mGy, DLP = ( 762.36 ) mGycm TECHNIQUE: Transaxial CT imaging of the brain was performed without administration of intravenous contrast material. Individualized dose optimization techniques were used for this CT. COMPARISON: No relevant priors. FINDINGS: Normal soft tissue structures. Normal calvarium. Normal size ventricles and extra-axial spaces for the patient''s age. Normal white matter tracts of the cerebral hemispheres. Normal basal ganglia and thalami. Normal brainstem. Normal cerebellum. There is no intracranial hemorrhage. Encephalomalacia within the right temporal and parietal lobes consistent with a chronic infarct. Normal visualized paranasal sinuses. CT/Brain/Head without Contrast IMPRESSION: Chronic involutional changes of the brain. Electronically Signed: Rogelio Pablo MD at 16:43 EST ,
--- NOTE | 2021-07-15 16:12 | EX.ED.DYSGE1 ---
HPI History of Present Illness Chief Complaint: Numb/Ting Informant: patient Onset/Context/Timing Onset: Days Context: Gradual Onset Timing: Continuous Current Severity: Mild Maximum Severity: Mild Narrative Narrative: 71-year-old female history of 2 prior strokes prior [place]. Diabetes. Hypertension high cholesterol. States that 2 days ago she awoke with pain across both eyes. Now it is around her nose with numbness around her nose. Denies any trouble with speech. No trouble walking. No trouble with her balance. No trouble moving her arms and legs. States it hurts to touch her nose Prior similar symptoms: No Recent Illness/Hospitalization: No PFSH [facility] Medical History Anxiety Atherosclerosis of coronary artery of [place] heart without angina pectoris Atypical chest pain Chronic pain Diabetes Essential (primary) hypertension Former smoker History of CVA (cerebrovascular accident) (09/2014) History of non-ST elevation myocardial infarction (NSTEMI) (06/2018) Hyperlipidemia Hypertension Overactive bladder Pancreatitis Pancreatitis Sternum pain Tobacco abuse Home Medications aspirin 81 mg PO DAILY@0800 06/14/18 [History Last Taken 2 Days Ago ~02/21/21] cholecalciferol (vitamin D3) 3,000 unit PO DAILY@0800 06/14/18 [History Last Taken 2 Days Ago ~02/21/21] clopidogrel 75 mg PO DAILY #30 tab 06/19/18 [Rx Last Taken 2 Days Ago ~02/21/21] metoprolol tartrate 25 mg tablet 12.5 mg PO BID tab 07/10/19 [History Last Taken 2 Days Ago ~02/21/21] insulin lispro 10 unit SC TIDCM 07/23/19 [History Last Taken 2 Days Ago ~02/21/21] buspirone 15 mg tablet 15 mg PO BID tab 07/10/20 [History Last Taken 2 Days Ago ~02/21/21] cyanocobalamin (vitamin B-12) 1,000 mcg PO DAILY 02/23/21 [History Last Taken 2 Days Ago ~02/21/21] docusate sodium 100 mg PO BID 02/23/21 [History Last Taken 2 Days Ago ~02/21/21] omeprazole 40 mg PO BID 02/23/21 [History Last Taken 2 Days Ago ~02/21/21] pravastatin 40 mg PO QHS 02/23/21 [History Last Taken 2 Days Ago ~02/21/21] solifenacin 10 mg PO QHS 02/23/21 [History Last Taken 2 Days Ago ~02/21/21] ondansetron HCl [Zofran] 4 mg PO Q8H PRN #20 tab 03/03/21 [Rx Last Taken Unknown] amlodipine 10 mg tablet 10 mg PO DAILY #30 tab 07/15/21 [Rx Last Taken Unknown] cephalexin 500 mg PO Q6H 7 Days #28 cap 07/15/21 [Rx Last Taken Unknown] cyclobenzaprine 5 mg tablet 5 mg PO QHS 07/15/21 [History Last Taken Unknown] insulin glargine 100 unit/mL (3 mL) subcutaneous pen 30 unit SUBCUT QHS ml 07/15/21 [History Last Taken Unknown] Allergy/AdvReac Type Severity Reaction Status Date / Time codeine Allergy Swelling Verified 07/15/21 14:40 Penicillins Allergy Swelling Verified 07/15/21 14:40 Sulfa (Sulfonamide Allergy Swelling Verified 07/15/21 14:40 Antibiotics) diphenhydramine AdvReac Other Verified 07/15/21 14:40 [From Benadryl] metoclopramide [From Reglan] AdvReac Other Verified 07/15/21 14:40 tylenol AdvReac Other Uncoded 02/23/21 10:30 Surgical History H/O coronary artery bypass surgery (05/30/18) History of left heart catheterization (05/28/18) Social History household members: none Smoking Status: Former smoker alcohol intake: current alcohol intake frequency: holidays/special occasions only substance use type: does not use ROS ROS ED ROS Narrative Denies recent illness. Review of Systems ROS Unobtainable: Denies due to encephalopathy Constitutional Constitutional ED: Denies fever(s) Eyes Eyes: Denies change in vision ENT ENT ED: Denies ear pain Cardiovascular Cardiovascular: Denies chest pain or palpitations Respiratory/Chest Respiratory/Chest: Denies cough or dyspnea Gastrointestinal Gastrointestinal: Denies abdominal pain, nausea or vomiting Genitourinary Genitourinary ED: Denies dysuria Musculoskeletal Musculoskeletal: Denies myalgias Integumentary Denies rash Neurologic Neurologic: Denies headache(s) Psychiatric Psychiatric: Denies depression Endocrine Endocrinology: Denies polyuria Allergic/Immunologic Allergic/Immunologic ED: Denies urticaria EXAM Physical Exam Narrative Exam Narrative: 71-year-old female complaining of discomfort to the tip of her nose. Vital signs are stable and afebrile. H EENT exam pupils round reactive light his motions are intact. No facial droop. Nose is slightly red on the tip. There is no abscess. TMs are unremarkable left ear somewhat obscured by wax. Nasal passageway unremarkable no blood. No pus. No abscesses. Dentition unremarkable. Lips are not swollen. Posterior pharynx normal. Neck nontender. Lungs are clear. Heart regular rhythm. Abdomen soft nontender. Moving all 4 extremities. Normal glass finisher strength bilaterally. Normal dorsi plantar flexion. Neurologically she is awake and alert. No facial droop. Normal speech. NIH is 0. Const Vital Signs: 07/15/21 15:33 07/15/21 15:47 07/15/21 17:37 Temperature 97.6 F L Temperature Source Temporal Pulse Rate 92 Respiratory Rate 18 Blood Pressure 169/79 H 117/93 H 178/102 H Blood Pressure Mean 109 101 127 Pulse Ox 98 Oxygen Delivery Method Room Air Positive well nourished, well developed and obese; Negative for cachectic, contractures or unkempt General Appearance ED: well developed and NAD; Negative for unkempt, cachectic, contractures, cyanotic or diaphoretic Nutritional Appearance: obese; Negative for cachectic HEENT Reports moist mucous membranes Negative for trauma or tenderness Eyes PERRL and EOMs intact bilaterally Neck no lymphadenopathy, supple and no JVD General: Negative for tenderness Chest Wall inspection of chest normal and palpation of chest normal Resp normal respiratory effort and clear to auscultation bilaterally Effort and Inspection: Negative for pain with movement Auscultation: Negative for rales, rhonchi or wheezes Cardio regular rate, regular rhythm, S1 normal heart sound, S2 normal heart sound and no murmurs GI normal to inspection, nondistended, normoactive bowel sounds, non-tender, non-distended and no masses Inspection: Negative for abdominal distention Auscultation: normoactive bowel sounds Palpation: soft; Negative for tender, guarding or rebound tenderness present Back/Spine no CVA tenderness General Back: Negative for CVA tenderness Cervical Spine: Negative for cervical spine tenderness Thoracic Spine / Upper Back: Negative for thoracic spinal tenderness Extremity normal to inspection General Extremety ED: Negative for edema or tenderness General Extremity: Negative for edema Neuro oriented x3 and CN's II-XII intact bilaterally Sensorium / Orientation: alert; Negative for orientation impaired, lethargic or stuporous Sensory Exam: No sensory level loss detected Motor Exam: strength 5/5 throughout Psych mental status grossly normal Appearance: Negative for unkempt Attitude: No agitated Mood & Affect: Negative for depressed, anxious or tearful Skin No no rashes or lesions noted and no wounds Skin Narrative: Redness to the end of her nose. Tender. No abscess. MDM MDM MDM Narrative Medical decision making narrative: 71-year-old female with atypical complaint this may be simple cellulitis at the end of her nose versus other abnormalities. She complains of some tingling around her nose and numbness but there is no facial droop she has normal speech. And her motor exam is normal to both upper and lower extremities. CAT scan and labs are being obtained. Repeat exam patient is doing well at 6:34 PM. Repeat exam is unchanged. I told the patient all of the specific cause for her discomfort it could be an early soft tissue infection since there is some redness to her cheeks and her tip of her nose. She be placed on Keflex. And follow-up with her primary care physician. I do not have a specific cause for the subjective numbness to her face but no facial droop. Lab Data Attestation: I reviewed the patient's lab results. Lab results narrative: CBC shows a white count nine. Hemoglobin 13 and hematocrit 40. Platelets 292. Electrolytes sodium 135 gap five BUN 21 creatinine 1.1. Glucose 244. CAT scan showed no acute abnormalities read by the radiologist and reviewed by me. Labs: Laboratory Results - last 24 hr 07/15/21 07/15/21 15:55 15:55 WBC 9.4 RBC 4.67 Hgb 13.6 Hct 40.9 MCV 87.6 MCH 29.1 MCHC 33.3 RDW Std Deviation 39.8 RDW Coeff of Tushar 12.5 Plt Count 292 MPV 12.1 H Immature Gran % (Auto) 0.300 Neut % (Auto) 66.0 Lymph % (Auto) 24.8 Fannin % (Auto) 8.0 Eos % (Auto) 0.5 Baso % (Auto) 0.4 Absolute Neuts (auto) 6.2 Absolute Lymphs (auto) 2.32 Nucleated RBC % 0 Differential Comment SCANNED Sodium 135 L Potassium 4.3 Chloride 102 Carbon Dioxide 28.0 Anion Gap 5 BUN 21 H Creatinine 1.11 H Estim Creat Clear Calc 54.24 Est GFR (MDRD) Af Amer 62 Est GFR (MDRD) Non-Af 51 L BUN/Creatinine Ratio 18.9 Glucose 244 H Calcium 9.4 Radiography Diagnostic Testing: Clinical Impression(s) from Imaging Studies Brain CT 07/15/21 16:10 IMPRESSION: Chronic involutional changes of the brain. Electronically Signed: Rogelio Pablo MD at 16:43 EST , Discharge Plan Triage Chief Complaint: Numb/Ting ED Provider: Mario Alberto Solorio Dx/Rx/DC Orders Clinical Impression: Cellulitis Instructions: ED Cellulitis Prescriptions: New cephalexin 500 mg capsule 500 mg PO Q6H 7 Days Qty: 28 RF: 0 No Action metoprolol tartrate 25 mg tablet 12.5 mg PO BID RF: 0 buspirone 15 mg tablet 15 mg PO BID RF: 0 Hold Instructions: Resume on 03/17/21. Hold until kidney function returns to baseline Juan Jean-Baptiste U-100 Insulin 100 unit/mL (3 mL) insulin pen 30 unit subcut QHS RF: 0 cyclobenzaprine 5 mg tablet 5 mg PO QHS RF: 0 amlodipine 10 mg tablet 10 mg PO DAILY Qty: 30 RF: 3 aspirin 81 MG tablet 81 mg PO DAILY@0800 RF: 0 cholecalciferol (vitamin D3) 1,000 UNIT tablet,chewable 3,000 unit PO DAILY@0800 RF: 0 clopidogrel 75 MG tablet 75 mg PO DAILY Qty: 30 RF: 0 insulin lispro 100 UNIT/ML insulin pen 10 unit SC TIDCM RF: 0 pravastatin 40 mg tablet 40 mg PO QHS RF: 0 cyanocobalamin (vitamin B-12) 1,000 mcg Tablet 1,000 mcg PO DAILY RF: 0 omeprazole 40 mg capsule,delayed release(DR/EC) 40 mg PO BID RF: 0 docusate sodium 100 mg Capsule 100 mg PO BID RF: 0 solifenacin 10 mg tablet 10 mg PO QHS RF: 0 ondansetron HCl [Zofran] 4 mg tablet 4 mg PO Q8H PRN (Reason: nausea and vomiting) Qty: 20 RF: 0 Primary Care Provider: Trinity Baird Referrals: Trinity Baird MD [Primary Care Provider] - 1 Week if not improving Activity Restrictions/Additional Instructions: Your CAT scan and blood work looked good. This may be secondary to an early soft tissue infection developing on your nose and cheeks. You will be placed on antibiotic Keflex which she will take 1 pill four times a day for the next week. Follow-up with your doctor if not improving or getting worse. Disposition Disposition: Home, Self Care
[2021-07-15 16:31] LABS: Absolute Lymphocyte Count 2.32 X10^3/uL (0.83-4.51); Absolute Neutrophil Count 6.2 X10^3/uL (2.0-7.7); Basophil# 0.04 X10^3/uL; Basophil% 0.4 % (0-1); Eosinophil# 0.05 X10^3/uL; Eosinophils% 0.5 % (0-5); Hematocrit 40.9 % (37-47); Hemoglobin 13.6 g/dL (12.0-15.0); Lymphocyte # 2.32 X10^3/ul (0.83-4.51); Lymphocyte % 24.8 % (19-41); Mean Corp Hgb Conc 33.3 g/dL (32-36); Mean Corpuscular Hgb 29.1 pg (27.0-32.0); Mean Corpuscular Volume 87.6 fL (81-99); Mean Platelet Vol. 12.1 fl (6.2-12.0); Monocyte# 0.75 X10^3/uL; NRBC Flagged by Analyzer 0 % (0-5); Neutrophil # 6.16 X10^3/uL (2.7-7.7); POSITIVE COUNT YES; Platelet Count 292 K/mm3 (150-450); RBC Distribution Width CV 12.5 % (11.6-14.6); RBC Distribution Width SD 39.8 fl (35.1-43.9); Red Blood Count 4.67 M/mm3 (4.2-5.4); White Blood Count 9.4 K/mm3 (4.4-11.0)
[2021-07-15 16:35] LABS: Differential Indicated SCAN CRITERIA MET
[2021-07-15 16:36] LABS: Anion Gap 5 (5-15); BUN 21 mg/dL (7-18); BUN/Creat Ratio 18.9 RATIO (10-20); Calcium,Total 9.4 mg/dL (8.5-10.1); Chloride 102 mmol/L (98-107); Creatinine, Serum 1.11 mg/dL (0.55-1.02); EST Glomerular Filtration Rate 51 mL/min (>60); Est Glom Filt Rate - Afr Amer 62 mL/min (>60); Estimated Creatinine Clearance 54.24 ml/min; Glucose 244 mg/dL (74-106); Potassium 4.3 mmol/L (3.5-5.1); Sodium Level 135 mmol/L (136-145)
--- NOTE | 2021-07-15 16:44 | CHAPLAIN ---
Type of Pastoral Visit ___ Initial Visit ___ Follow-up Visit ___ On-call Visit ___ General Patient Visit ___ Spiritual Assessment ___ Family Conference ___ Bereavement _x__ Rapid Response ___ Code Blue ___ Other (describe below) Pastoral Care Referral From ___ Patient ___ Family ___ Nurse ___ Physician ___ Wood Strip Block Floor Installer ___ Enrollment Advisor _x__ Other (describe below) Sacrament/Intervention ___ Active listening ___ Anointing ___ Anglican ___ Bereavement ___ Communion ___ [place] exploration ___ ___ Life review ___ Prayer ___ Reconciliation ___ Sacrament of Sick _x__ Supportive presence ___ Wedding ___ Other (describe below) Pastoral Comments came to the stroke alert and was available for family support; family did not appear and the stroke alert was cancelled;
[2021-07-15 17:10] LABS: Differential Comment SCANNED
[2021-07-15 17:37] VITALS: BP 178/102
[2021-07-15 18:35] VITALS: BP 203/106; PULSE 100; RESP 16
[2021-07-15] MEDS: Cephalexin 250 MG Capsule 500 MG PO (18:43)
== END 2021-07-15 23:59 | disposition home or self-care (01) ==
PROVIDERS: Emergency Provider Emergency Medicine; PCP Internal Medicine; Visit Provider Emergency Medicine
DX: J34.0 Abscess, furuncle and carbuncle of nose (principal); E11.9 Type 2 diabetes mellitus without complications; I10 Essential (primary) hypertension; E78.5 Hyperlipidemia, unspecified; I25.10 Atherosclerotic heart disease of native coronary artery without angina pectoris; Z87.891 Personal history of nicotine dependence; E78.00 Pure hypercholesterolemia, unspecified; Z86.73 Personal history of transient ischemic attack (TIA), and cerebral infarction without residual deficits; I25.2 Old myocardial infarction
CPT/HCPCS: 99281; 70450; 80048; 85025; 99283; A4216

== ENCOUNTER 2021-07-22 16:56 | Outpatient (CLI) | payer MEDICARE, MEDICAID, SELFPAY ==
[2021-07-22 17:19] LABS: Basophil# 0.05 X10^3/uL; Basophil% 0.7 % (0-1); Eosinophil# 0.08 X10^3/uL; Eosinophils% 1.2 % (0-5); Hematocrit 35.8 % (37-47); Hemoglobin 11.9 g/dL (12.0-15.0); Lymphocyte % 29.9 % (19-41); Mean Corp Hgb Conc 33.2 g/dL (32-36); Mean Corpuscular Hgb 28.7 pg (27.0-32.0); Mean Corpuscular Volume 86.5 fL (81-99); Mean Platelet Vol. 11.3 fl (6.2-12.0); Monocyte# 0.51 X10^3/uL; Monocyte% 7.6 % (0-10); NRBC Flagged by Analyzer 0 % (0-5); Neutrophil # 4.04 X10^3/uL (2.7-7.7); Neutrophil % 60.3 % (47-70); Platelet Count 351 K/mm3 (150-450); RBC Distribution Width CV 12.1 % (11.6-14.6); RBC Distribution Width SD 38.9 fl (35.1-43.9); Red Blood Count 4.14 M/mm3 (4.2-5.4); White Blood Count 6.7 K/mm3 (4.4-11.0)
[2021-07-22 18:05] LABS: ALB/GLOB Ratio 0.8 RATIO (0.9-2.4); AST(SGOT) 8 U/L (15-37); Alanine Aminotransfer ALT/SGPT 14 U/L (13-56); Albumin, Serum 3.5 g/dL (3.2-5.0); Alkaline Phosphatase 92 U/L (45-117); Anion Gap 6 (5-15); BUN 21 mg/dL (7-18); BUN/Creat Ratio 22.7 RATIO (10-20); Calcium,Total 9.2 mg/dL (8.5-10.1); Chloride 105 mmol/L (98-107); Creatinine, Serum 0.92 mg/dL (0.55-1.02); EST Glomerular Filtration Rate 63 mL/min (>60); Est Glom Filt Rate - Afr Amer 77 mL/min (>60); Globulin 4.6 g/dL (2.2-4.2); Glucose 213 mg/dL (74-106); Potassium 3.8 mmol/L (3.5-5.1); Protein, Total 8.1 g/dL (6.4-8.2); Sodium Level 137 mmol/L (136-145)
[2021-07-23 08:36] LABS: Hepatitis C Antibody Non-Reactive (Nonreactive); Vitamin D,25 Hydroxy 53.5 ng/mL
== END 2021-07-22 23:59 | disposition home or self-care (01) ==
LOC: POLAB3 16:59
PROVIDERS: PCP Family Medicine Geriatric Medicine; Visit Provider Family Medicine Geriatric Medicine
DX: R53.83 Other fatigue (principal); E11.9 Type 2 diabetes mellitus without complications; E55.9 Vitamin D deficiency, unspecified; Z13.89 Encounter for screening for other disorder
CPT/HCPCS: 36415; 80053; 82306; 84443; 85025; 86803

== ENCOUNTER 2021-08-10 07:12 | Outpatient (CLI) | payer MEDICARE, MEDICAID, SELFPAY ==
--- NOTE | 2021-08-10 13:38 | STRESSREP ---
Stress Test Report Pharmacologic myocardial perfusion stress test. 71-year-old lady with a history of chest pain. Stress protocol: Resting EKG demonstrates normal sinus rhythm with a rate of 62 bpm normal intervals are noted resting blood pressure is 130/90 mmHg. 0.4 mg of regadenoson was infused per usual protocol. Continuous EKG monitoring was performed. The maximum heart rate attained was 112 bpm which was 75% of max impact at heart rate the maximum workload was 1 metabolic equivalent. At rest there were no ST or T wave changes noted to suggest ischemia and at peak infusion nonspecific ST changes were noted with did not meet the criteria for ischemia. No clinical angina was noted. The final blood pressure was 130/90 mmHg. Myocardial perfusion protocol. 10.8 mCi of technetium 99m sestamibi was injected at rest. 0.4 mg of regadenoson was infused per usual protocol. At peak infusion 34.5 mCi of technetium 99m sestamibi was injected stress images were obtained stress and rest images were reconstructed and compared in the short axis vertical long and horizontal long axis. Gated images were also obtained . Perfusion SPECT analysis: Review of the stress images demonstrate normal uptake of tracer noted in all areas of the myocardium. The resting images similarly demonstrate normal uptake of tracer noted in all areas of the myocardium. No areas of reversibility are noted to suggest ischemia and no previous infarct is noted. Gated SPECT analysis: The gated ejection fraction is 80%. Conclusion: Normal pharmacologic myocardial perfusion stress test. Preserved ejection fraction.
== END 2021-08-10 23:59 | disposition home or self-care (01) ==
LOC: CVS 07:16
PROVIDERS: PCP Family Medicine Geriatric Medicine; Referring Provider Nurse Practitioner Gerontology; Visit Provider Nurse Practitioner Gerontology
DX: R07.9 Chest pain, unspecified (principal)
CPT/HCPCS: 78452; 93017; A9500; A4216; J2785

== ENCOUNTER 2021-08-19 14:18 | Outpatient (CLI) | payer MEDICARE, MEDICAID, SELFPAY ==
--- NOTE | 2021-08-19 14:21 | BI_ITS ---
MAMMOGRAPHY - BILATERAL SCREENING 3-D TOMOSYNTHESIS REASON FOR EXAM: Female, 71 years old. SCREENING PERTINENT HISTORY: No significant family history. TECHNIQUE: 2-D mammograms and 3-D Tomosynthesis of the breast (s) were performed. CAD was performed. COMPARISON: 05/05/2015 FINDINGS: The breast composition is composed of scattered fibroglandular density. Scattered benign calcifications are seen. No dense spiculated masses or suspicious microcalcifications are identified. No architectural distortion is identified. There is no skin thickening or retraction. There has been no significant change since the prior study. BI/SCRN MAMM (CAD)W/DAVE BILAT IMPRESSION: No mammographic signs of malignancy. Routine yearly mammograms recommended. ASSESSMENT CATEGORY: BIRADS Category 1: Negative. A letter regarding these results will be sent to the patient by the facility within 30 days. FOLLOW UP RECOMMENDATION: Yearly follow up mammogram recommended. (A) Approximately 10% of breast cancers are not detected by mammography. A normal mammogram should not delay biopsy of a clinically suspicious abnormality. Electronically Signed: Rogelio Pablo MD at 16:07 EDT ,
--- NOTE | 2021-08-19 16:30 | RAD_ITS ---
INDICATION: LOW BACK PAIN EXAMINATION/TECHNIQUE: X-RAY - XR Spine Lumbar 2 or 3 Views COMPARISON: None. FINDINGS/ RAD/Lumbar Spine 2 or 3 Views IMPRESSION: VERTEBRAE: Preserved vertebral body height. No fracture. No spondylolisthesis. Mild levoscoliotic curvature of the lumbar spine which may be positional. Multilevel lumbar facet arthropathy most prominent from the L4-S1 levels. DISCS: Mild multilevel degenerative disc disease in the lumbar spine with anterior osteophytic spurring and mild associated disc height loss. This is more moderate at the L4-L5 and L5-S1 levels. There is moderate degenerative disc disease at the T10-T11 level with large anterior osteophytic spurring and moderate associated disc height loss. INCLUDED ABDOMEN: Included bowel gas pattern is non-obstructive. Electronically Signed: Osmani Hooks, at 8:05 EDT ,
== END 2021-08-19 23:59 | disposition home or self-care (01) ==
PROVIDERS: PCP Family Medicine Geriatric Medicine; Referring Provider Family Medicine Geriatric Medicine; Visit Provider Family Medicine Geriatric Medicine
DX: Z12.31 Encounter for screening mammogram for malignant neoplasm of breast (principal); M54.50 Low back pain, unspecified
CPT/HCPCS: 72100; 77063; 77067

== ENCOUNTER 2021-08-23 15:23 | Outpatient (CLI) | payer MEDICARE, MEDICAID, SELFPAY ==
--- NOTE | 2021-08-23 15:40 | RAD_ITS ---
STUDY: RIGHT THUMB SERIES-3 VIEWS OF 1547 HOURS ON 08/23/2021 REASON FOR EXAM: 71-year-old female with right thumb pain. TECHNIQUE: 3 views of the right thumb were obtained. COMPARISON: None. FINDINGS: There is acute displaced oblique fracture of the distal phalangeal segment of the right thumb. There is a 3 mm x 0.5 mm linear fracture fragment anterior to the head of the proximal phalangeal segment of the right thumb--probably from the base of the distal phalangeal segment. In addition, there are mild degenerative changes of the interphalangeal joint of the right thumb. Soft tissue swelling is present. Mild demineralization is noted. RAD/Finger(s) Min 2 Views IMPRESSION: 1. Acute displaced oblique fracture of the distal phalangeal segment of the right thumb. 2. Presence of a 3 mm x 0.5 mm linear fracture fragment anterior to the head of the proximal laryngeal segment of the right thumb--probably from the base of the distal phalangeal segment. 3. Mild degenerative changes of the interphalangeal joint of the right thumb. 4. Mild soft tissue swelling. 5. Mild demineralization. Electronically Signed: Ajit Guan MD at 17:56 EDT ,
== END 2021-08-23 23:59 | disposition home or self-care (01) ==
PROVIDERS: PCP Family Medicine Geriatric Medicine; Referring Provider Family Medicine Geriatric Medicine; Visit Provider Family Medicine Geriatric Medicine
DX: S62.501A Fracture of unspecified phalanx of right thumb, initial encounter for closed fracture (principal)
CPT/HCPCS: 73140

== ENCOUNTER → 2021-10-25 | Outpatient (CLI) | payer MEDICARE, MEDICAID, SELFPAY ==
[2021-10-25 17:02] LABS: Absolute Lymphocyte Count 1.96 X10^3/uL (0.83-4.51); Absolute Neutrophil Count 5.1 X10^3/uL (2.0-7.7); Basophil# 0.05 X10^3/uL; Basophil% 0.6 % (0-1); Eosinophil# 0.11 X10^3/uL; Eosinophils% 1.4 % (0-5); Hematocrit 38.1 % (37-47); Hemoglobin 12.5 g/dL (12.0-15.0); Lymphocyte # 1.96 X10^3/ul (0.83-4.51); Lymphocyte % 25.3 % (19-41); Mean Corp Hgb Conc 32.8 g/dL (32-36); Mean Corpuscular Hgb 28.9 pg (27.0-32.0); Mean Corpuscular Volume 88.2 fL (81-99); Mean Platelet Vol. 12.9 fl (6.2-12.0); Monocyte# 0.52 X10^3/uL; Monocyte% 6.7 % (0-10); NRBC Flagged by Analyzer 0 % (0-5); Neutrophil # 5.09 X10^3/uL (2.7-7.7); Neutrophil % 65.7 % (47-70); Platelet Count 239 K/mm3 (150-450); RBC Distribution Width SD 41.9 fl (35.1-43.9); Red Blood Count 4.32 M/mm3 (4.2-5.4); White Blood Count 7.8 K/mm3 (4.4-11.0)
[2021-10-25 17:40] LABS: ALB/GLOB Ratio 0.9 RATIO (0.9-2.4); AST(SGOT) 13 U/L (15-37); Alanine Aminotransfer ALT/SGPT 28 U/L (13-56); Albumin, Serum 3.5 g/dL (3.2-5.0); Alkaline Phosphatase 75 U/L (45-117); Anion Gap 7 (5-15); BUN 28 mg/dL (7-18); BUN/Creat Ratio 24.3 RATIO (10-20); Calcium,Total 9.4 mg/dL (8.5-10.1); Chloride 103 mmol/L (98-107); Creatinine, Serum 1.15 mg/dL (0.55-1.02); EST Glomerular Filtration Rate 49 mL/min (>60); Est Glom Filt Rate - Afr Amer 60 mL/min (>60); Globulin 4.1 g/dL (2.2-4.2); Glucose 273 mg/dL (74-106); Potassium 4.1 mmol/L (3.5-5.1); Protein, Total 7.6 g/dL (6.4-8.2); Sodium Level 138 mmol/L (136-145); Thyroid Stim Hormone (TSH) 1.37 uIU/mL (0.358-3.74)
[2021-10-25 17:41] LABS: Vitamin D,25 Hydroxy 45.8 ng/mL
== END | disposition home or self-care (01) ==
LOC: POLAB3 15:35
PROVIDERS: PCP Family Medicine Geriatric Medicine; Visit Provider Family Medicine Geriatric Medicine
DX: I10 Essential (primary) hypertension (principal); E11.65 Type 2 diabetes mellitus with hyperglycemia; E55.9 Vitamin D deficiency, unspecified
CPT/HCPCS: 36415; 80053; 82306; 84443; 85025

== ENCOUNTER 2021-11-06 10:08 | Emergency (ER) | payer MEDICARE, MEDICAID, SELFPAY ==
[2021-11-06 10:10] VITALS: BP 136/72; PULSE 72; RESP 15; TEMP 36.7; O2SAT 96; BMI 33.3
--- NOTE | 2021-11-06 10:23 | EDS_ITS ---
HPI History of Present Illness Chief Complaint: Constipation Informant: patient Onset/Context/Timing Onset: Days (3 days) Context: Gradual Onset Timing: Waxes and wanes Quality: Crampy Location: Diffuse over abdomen Current Severity: Mild Maximum Severity: Moderate Narrative Narrative: Patient presents with 3-day history of abdominal cramping. She states that she is been able to pass gas but has not had a bowel movement. No fever or chills. She states she normally make sure that she has a bowel movement every day. Last colonoscopy was 9 years ago and normal. She denies any prior abdominal surgeries. [facility] Medical History Anxiety Atherosclerosis of coronary artery of [place] heart without angina pectoris Chronic pain Coronary atherosclerosis Diabetes Essential (primary) hypertension Former smoker GERD (gastroesophageal reflux disease) History of CVA (cerebrovascular accident) (09/2014) History of non-ST elevation myocardial infarction (NSTEMI) (06/2018) Hyperlipidemia Ischemic stroke Overactive bladder Pancreatitis Sternum pain Tobacco abuse Home Medications aspirin 81 mg PO DAILY@0800 06/14/18 [History Last Taken 2 Days Ago ~02/21/21] insulin lispro 10 unit SC TIDCM 07/23/19 [History Last Taken 2 Days Ago ~02/21/21] pravastatin 40 mg PO QHS 02/23/21 [History Last Taken 2 Days Ago ~02/21/21] insulin glargine 100 unit/mL (3 mL) subcutaneous pen 40 unit SUBCUT QHS ml 07/15/21 [History Last Taken Unknown] citalopram 10 mg tablet 10 mg PO DAILY tab 08/27/21 [History Last Taken Unknown] tramadol 50 mg tablet 50 mg PO Q6H PRN #30 tab 08/27/21 [Rx Last Taken Unknown] famotidine 40 mg DAILY 09/02/21 [History Last Taken Unknown] insulin aspart U-100 100 unit/mL (3 mL) subcutaneous pen 13 unit SUBCUT TID ml 09/16/21 [History Last Taken Unknown] amlodipine 10 mg tablet 10 mg PO DAILY #30 tab 10/15/21 [Rx Last Taken Unknown] metoprolol tartrate 25 mg tablet 25 mg PO BID #60 tab 10/15/21 [Rx Last Taken Unknown] ciprofloxacin HCl [Cipro] 500 mg PO BID #20 tab 11/06/21 [Rx Last Taken Unknown] magnesium citrate 300 ml PO DAILY PRN #296 ml 11/06/21 [Rx Last Taken Unknown] metronidazole 500 mg PO Q8H 7 Days #21 tab 11/06/21 [Rx Last Taken Unknown] Allergy/AdvReac Type Severity Reaction Status Date / Time codeine Allergy Swelling Verified 11/06/21 10:12 Penicillins Allergy Swelling Verified 11/06/21 10:12 Sulfa (Sulfonamide Allergy Swelling Verified 11/06/21 10:12 Antibiotics) diphenhydramine AdvReac Other Verified 11/06/21 10:12 [From Benadryl] metoclopramide [From Reglan] AdvReac Other Verified 11/06/21 10:12 tylenol AdvReac Other Uncoded 11/06/21 10:12 Surgical History H/O coronary artery bypass surgery (05/30/18) History of left heart catheterization (05/28/18) Social History household members: none Smoking Status: Former smoker alcohol intake: current alcohol intake frequency: holidays/special occasions only substance use type: does not use ROS ROS ED Constitutional Constitutional ED: Denies chills or fever(s) Eyes Eyes: Denies change in vision ENT ENT ED: Denies sore throat Cardiovascular Cardiovascular: Denies chest pain Respiratory/Chest Respiratory/Chest: Denies cough or dyspnea Gastrointestinal Gastrointestinal: Reports abdominal pain and constipation; Denies diarrhea, nausea or vomiting Genitourinary Genitourinary ED: Denies dysuria Musculoskeletal Musculoskeletal: Denies back pain or neck pain Integumentary Denies rash Neurologic Neurologic: Denies headache(s) or weakness Allergic/Immunologic Allergic/Immunologic ED: Denies urticaria EXAM Physical Exam Const Vital Signs: 11/06/21 10:10 Temperature 98.1 F Temperature Source Temporal Pulse Rate 72 Respiratory Rate 15 Blood Pressure 136/72 H Blood Pressure Mean 93 Pulse Ox 96 Oxygen Delivery Method Room Air Positive well nourished and well developed General Appearance ED: well developed HEENT Reports moist mucous membranes Eyes PERRL Neck no lymphadenopathy and supple Chest Wall inspection of chest normal and palpation of chest normal Resp normal respiratory effort and clear to auscultation bilaterally Cardio regular rate and regular rhythm GI Auscultation: normoactive bowel sounds Palpation: soft and tender other (Mild diffuse tenderness to palpation. No guarding or rebound.) Extremity normal to inspection Neuro oriented x3 Sensorium / Orientation: alert Psych mental status grossly normal Skin no rashes or lesions noted MDM MDM MDM Narrative Medical decision making narrative: Abdominal x-ray initially obtained. Per my interpretation increased stool noted on the right. Fleets enema performed and lab work obtained. Lab Data Attestation: I reviewed the patient's lab results. Labs: Laboratory Results - last 24 hr 11/06/21 11/06/21 10:50 10:50 WBC 13.1 H RBC 4.80 Hgb 14.0 Hct 41.8 MCV 87.1 MCH 29.2 MCHC 33.5 RDW Std Deviation 40.7 RDW Coeff of Tushar 12.9 Plt Count 241 MPV 11.8 Immature Gran % (Auto) 0.200 Neut % (Auto) 79.5 H Lymph % (Auto) 13.1 L [place] % (Auto) 6.8 Eos % (Auto) 0.2 Baso % (Auto) 0.2 Absolute Neuts (auto) 10.4 H Absolute Lymphs (auto) 1.71 Nucleated RBC % 0 Sodium 138 Potassium 4.1 Chloride 106 Carbon Dioxide 27.0 Anion Gap 5 BUN 27 H Creatinine 1.05 H Estim Creat Clear Calc 57.22 Est GFR (MDRD) Af Amer 66 Est GFR (MDRD) Non-Af 55 L BUN/Creatinine Ratio 25.7 H Glucose 195 H Calcium 9.2 Total Bilirubin 0.60 Direct Bilirubin 0.14 AST 12 L ALT 20 Alkaline Phosphatase 89 Total Protein 7.5 Albumin 3.3 Globulin 4.2 Lipase 91 Radiography Diagnostic Testing: Clinical Impression(s) from Imaging Studies KUB X-Ray 11/06/21 10:35 IMPRESSION: Moderate amount of gas and stool throughout the colon. Degenerative changes. Electronically Signed: Kelly Wilson MD at 10:51 EDT , Abdomen/Pelvis CT 11/06/21 11:39 IMPRESSION: 1. Diverticulosis of the sigmoid colon with focal thickening consistent with early acute diverticulitis. No evidence of drainable abscess or free air. 2. Bilateral complex renal masses markedly decreased in size and some of them resolved likely inflammatory in nature. 3. Small hiatal hernia. 4. Questionable mild sludge in the gallbladder. Electronically Signed: Shine Hubbard MD at 12:49 EDT , Treatment and Re-Evaluation Narrative: Patient had no significant results from her fleets enema. Lab work does reveal white count of 13.1 with mild left shift. LFTs and lipase are normal. On repeat exam patient complaining of focal tenderness to the right lower quadrant. She is tender on exam to this area. In light of this a CT scan with p.o. and IV contrast is ordered to ensure no evidence of appendicitis. Patient was unable to tolerate the p.o. contrast, vomiting after only drinking about a third of the bottle. CT scan returns with normal appearance to the appendix. There is evidence of early mild diverticulitis. In light of this she will be treated with Cipro and Flagyl, first dose is given here. Prescriptions for Cipro, Flagyl, and magnesium citrate will be sent to the pharmacy for her. Return instructions provided. Discharge Plan Triage Chief Complaint: Constipation ED Provider: Mae Bland Dx/Rx/DC Orders Clinical Impression: Diverticulitis, Constipation Instructions: ED Constipation (Adult), ED Diverticulitis Prescriptions: New ciprofloxacin HCl [Cipro] 500 mg tablet 500 mg PO BID Qty: 20 RF: 0 metronidazole 500 mg tablet 500 mg PO Q8H 7 Days Qty: 21 RF: 0 magnesium citrate Solution 300 ml PO DAILY PRN (Reason: constipation) Qty: 296 RF: 0 No Action Lantus Solostar U-100 Insulin 100 unit/mL (3 mL) insulin pen 40 unit subcut QHS RF: 0 citalopram [Celexa] 10 mg tablet 10 mg PO DAILY RF: 0 tramadol 50 mg tablet 50 mg PO Q6H PRN (Reason: pain) Qty: 30 RF: 0 insulin aspart U-100 [Novolog Flexpen U-100 Insulin] 100 unit/mL (3 mL) insuli n pen 13 unit subcut TID RF: 0 aspirin 81 MG tablet 81 mg PO DAILY@0800 RF: 0 insulin lispro 100 UNIT/ML insulin pen 10 unit SC TIDCM RF: 0 pravastatin 40 mg tablet 40 mg PO QHS RF: 0 famotidine 40 mg tablet 40 mg DAILY RF: 0 metoprolol tartrate 25 mg tablet 25 mg PO BID Qty: 60 RF: 11 amlodipine 10 mg tablet 10 mg PO DAILY Qty: 30 RF: 11 Primary Care Provider: Taras Green Chi Referrals: Taras Green Chi, MD [Primary Care Provider] - 1 Week Disposition Disposition: Home, Self Care
--- NOTE | 2021-11-06 10:35 | RAD_ITS ---
STUDY: X-RAY - ABDOMEN/PELVIS REASON FOR EXAM: Female, 71 years old. Constipation TECHNIQUE: 2 frontal images of the abdomen were obtained. COMPARISON: None. FINDINGS: Normal visualized lung bases. There is a moderate amount of gas and stool within the colon. There is no demonstrated free abdominal air. There are calcified phleboliths in the pelvis. There are degenerative changes of the lumbar spine and hips. RAD/Abdomen Single View IMPRESSION: Moderate amount of gas and stool throughout the colon. Degenerative changes. Electronically Signed: Kelly Wilson MD at 10:51 EDT ,
[2021-11-06] MEDS: Fleet Enema 1 ML RC (10:58)
[2021-11-06 11:00] LABS: Absolute Lymphocyte Count 1.71 X10^3/uL (0.83-4.51); Absolute Neutrophil Count 10.4 X10^3/uL (2.0-7.7); Basophil# 0.03 X10^3/uL; Basophil% 0.2 % (0-1); Eosinophil# 0.03 X10^3/uL; Eosinophils% 0.2 % (0-5); Hematocrit 41.8 % (37-47); Lymphocyte # 1.71 X10^3/ul (0.83-4.51); Lymphocyte % 13.1 % (19-41); Mean Corp Hgb Conc 33.5 g/dL (32-36); Mean Corpuscular Hgb 29.2 pg (27.0-32.0); Mean Corpuscular Volume 87.1 fL (81-99); Mean Platelet Vol. 11.8 fl (6.2-12.0); Monocyte# 0.89 X10^3/uL; Monocyte% 6.8 % (0-10); NRBC Flagged by Analyzer 0 % (0-5); Neutrophil # 10.41 X10^3/uL (2.7-7.7); Neutrophil % 79.5 % (47-70); Platelet Count 241 K/mm3 (150-450); RBC Distribution Width CV 12.9 % (11.6-14.6); RBC Distribution Width SD 40.7 fl (35.1-43.9); White Blood Count 13.1 K/mm3 (4.4-11.0)
[2021-11-06 11:14] LABS: AST(SGOT) 12 U/L (15-37); Alanine Aminotransfer ALT/SGPT 20 U/L (13-56); Albumin, Serum 3.3 g/dL (3.2-5.0); Alkaline Phosphatase 89 U/L (45-117); Anion Gap 5 (5-15); BUN 27 mg/dL (7-18); BUN/Creat Ratio 25.7 RATIO (10-20); Bilirubin, Direct 0.14 mg/dL (0.00-0.30); Calcium,Total 9.2 mg/dL (8.5-10.1); Chloride 106 mmol/L (98-107); Creatinine, Serum 1.05 mg/dL (0.55-1.02); EST Glomerular Filtration Rate 55 mL/min (>60); Est Glom Filt Rate - Afr Amer 66 mL/min (>60); Estimated Creatinine Clearance 57.22 ml/min; Globulin 4.2 g/dL (2.2-4.2); Glucose 195 mg/dL (74-106); Lipase 91 U/L (73-393); Potassium 4.1 mmol/L (3.5-5.1); Protein, Total 7.5 g/dL (6.4-8.2); Sodium Level 138 mmol/L (136-145)
--- NOTE | 2021-11-06 11:39 | CT_ITS ---
STUDY: CT ABDOMEN AND PELVIS WITH CONTRAST REASON FOR EXAM: Female, 71 years old. RLQ pain -- IV PO Contrast RADIATION DOSAGE (If Supplied By Facility): CTDIvol = ( 13.87 ) mGy, DLP = ( 1044.19 ) mGycm TECHNIQUE: Transaxial images were obtained from the dome of the diaphragm to the symphysis pubis without oral contrast. IV 75mL Isovue-370 was administered. Sagittal and coronal images were reconstructed. Individualized dose optimization techniques were used for this CT. COMPARISON: 02/17/2021. FINDINGS: The visualized lung bases are unremarkable. Normal heart size. Prior median sternotomy. Normal liver. Probable minimal sludge in the gallbladder. Normal spleen. Normal pancreas. Normal bilateral adrenal glands. Previously noted bilateral complex masses/cysts markedly decreased in size in some of them resolved particularly the left upper lobe mass which could be inflammatory. Residual small cysts bilaterally. Bilateral renal vascular calcifications. No evidence of hydronephrosis. There is a small hiatal hernia. Normal caliber small bowel loops. Fecal retention. Diverticulosis of the sigmoid colon with thickening of the sigmoid with pericolonic stranding consistent with focal acute diverticulitis. No evidence of drainable abscess. No free fluid. The appendix is visualized and appears normal. There is diffuse atherosclerotic calcification of the abdominal aorta, without a demonstrated aneurysm. Normal inferior vena cava. Normal retroperitoneum. Normal urinary bladder. No pelvic mass. No free fluid. Very small umbilical hernia containing fat. Degenerative changes in the spine. CT/Abdomen/Pelvis WITH Contrast IMPRESSION: 1. Diverticulosis of the sigmoid colon with focal thickening consistent with early acute diverticulitis. No evidence of drainable abscess or free air. 2. Bilateral complex renal masses markedly decreased in size and some of them resolved likely inflammatory in nature. 3. Small hiatal hernia. 4. Questionable mild sludge in the gallbladder. Electronically Signed: Shine Hubbard MD at 12:49 EDT ,
--- NOTE | 2021-11-06 12:08 | ED.RN ---
PT DRANK APPROX A THIRD OF CT DRINK AND PUKED IT UP. PT WILL NOT DRINK ANYMORE DRINK. DR CHESTER AND CT NOTIFITED.
[2021-11-06] MEDS: metroNIDAZOLE 500 MG Tablet PO (13:11)
[2021-11-06] MEDS: Ciprofloxacin 500 MG Tablet PO (13:11)
== END 2021-11-06 13:22 | disposition home or self-care (01) ==
PROVIDERS: Emergency Provider Emergency Medicine; PCP Family Medicine Geriatric Medicine; Visit Provider Emergency Medicine
DX: K57.32 Diverticulitis of large intestine without perforation or abscess without bleeding (principal); E11.9 Type 2 diabetes mellitus without complications; Z79.4 Long term (current) use of insulin; E78.5 Hyperlipidemia, unspecified; Z87.891 Personal history of nicotine dependence; I25.10 Atherosclerotic heart disease of native coronary artery without angina pectoris; I10 Essential (primary) hypertension; I25.2 Old myocardial infarction; Z87.19 Personal history of other diseases of the digestive system; K21.9 Gastro-esophageal reflux disease without esophagitis; G89.29 Other chronic pain; F41.9 Anxiety disorder, unspecified; Z79.899 Other long term (current) drug therapy; Z79.82 Long term (current) use of aspirin; Z95.5 Presence of coronary angioplasty implant and graft; K59.00 Constipation, unspecified
CPT/HCPCS: 74018; 74177; 80048; 80076; 83690; 85025; 99285; Q9967; A4216

== ENCOUNTER → 2021-11-11 | Outpatient (CLI) | payer MEDICARE, MEDICAID, SELFPAY ==
[2021-11-11 17:25] LABS: CPK Total, Creatine Kinase 191 U/L (26-192); Troponin-I HS 6 pg/mL (3.0-54.0)
[2021-11-15 20:06] LABS: Myoglobin, Serum 320 ng/mL (25-58)
== END | disposition home or self-care (01) ==
LOC: POLAB3 15:54
PROVIDERS: PCP Family Medicine Geriatric Medicine; Visit Provider Family Medicine Geriatric Medicine
DX: E11.9 Type 2 diabetes mellitus without complications (principal); I10 Essential (primary) hypertension; E55.9 Vitamin D deficiency, unspecified; M10.9 Gout, unspecified
CPT/HCPCS: 36415; 82550; 83874; 84484

== ENCOUNTER 2021-12-23 15:00 | Outpatient (RCR) | payer MEDICARE, MEDICAID, SELFPAY ==
--- NOTE | 2021-09-29 08:34 | HP.OTEVAL_ITS ---
Patient's Visit Information RISHABH HIGUERA is a 71 year old F, referred to Occupational Therapy by THERESA Cerrato, with a diagnosis of R displaced oblique fracture of distal phalanx thumb. Date of Evaluation: 09/22/21 Occupational Therapist: Marely Espinal, LAZAROR/L, CHT - Subjective Pt. is a 71 y/o female who is right handed and lives alone in a 1 story [place] [place] She does not have anyone to assist her with ADL's or IADL's. She is retired. Pt. smashed R thumb into the car door ~2 weeks before having it checked out on the 08-20-21, then had had it casted on the 09-10-21. Cast was removed on this date. Pt. would like to return to PLOF, including driving. - ADLs Kitchen: Chop with knife, Open jars Miscellaneous: Drive Comments: writing Comments: Pt. stating she is doing her basic ADL's at an independent level. She is R hand dominant. She has a car but feels as though she is unable to drive secondary to R thumb. She was dropped off and picked up by [employer]. She has a difficult time with laundry as she takes her laundry to a community room, she also voiced difficulty with grocery shopping. Pt. states that she has 2 daughters that live locally but they do not assist her. - Pain Right Hand 8 Pain Intensity Range: 8 - Objective Pt. uses a quad cane for functional mobility. Pt. was using it in R hand but since she was casted she was using in her left hand. This S/OT with the pt's permission changed the hand position to be a left handed quad cane to prevent tripping over feet of quad cane. - ROM Shoulder: B WFL Elbow: B WFL Forearm: B WFL MP: R 40* L 50* IP: R 25* L 40* ROM Comments: Pt. can bring L hand into composite fist. Pt. can bring R digits 2-4 into flexion. - Strength Strength Comments: Pt. has a weaker hand grasp in R hand compared to L hand. Router Tender and pinch to be assessed at next visit. - Edema DIP: R 7cm L 6cm Other: Pt. has edema in R thumb area - Sensation Stereognosis: Normal - Right Kinesthesia: Normal - Right Proprioception: Normal - Right Sensation Comments: Pt. verbalized she is having numbness at the R tip of thumb. Pt. verbalized that she has numbness in L hand when sleeping, S/OT suggested a compression glove for L hand at night. - Quick DASH-Disab of Arm,Shoulder& Hand Quick DASH Score: 63.6350 - Goals Goal:: Pt. will increase visual merchandising assistant and pinch strength with R hand for IADL tasks (visual merchandising assistant steering wheel) by dc. Goal:: Pt. will increase R thumb ROM flexion to use smaller items such as pen for writing by dc. Goal:: Pt. will report pain level <3/10 in R thumb during OT tx's and while perform ADls and IADLs by dc Goal:: Pt. R thumb circumference will be 6cm by dc. - Rehabilitation General Assessment: Pt. has been referred for OT evaluation for a right displace oblique fracture of distal phalanx thumb, also has R arthritis of thumb IP joint. She has a history of stroke and needs a splint that will be easy to use. She has arthritis of R thumb IP joint will need help with AROM and progression. She has 1cm of swelling to R thumb, has decreased active rom and strength for IADL tasks (laundry). Pt. would like to return to PLOF with driving. Due to the above listed deficits pt would benefit from skilled OT services 1-2x week for 6 weeks to return pt to her PLOF. Therapy session was directly supervised and doc. reviewed and approved by Marely Espinal OTR/L, PATRICE. Rehabilitation Potential: Good - Anticipated Interventions Strengthening, Orthoses, Joint Protection/Energy Conservation, Ergonomic Education, Fine Motor Coord/Van, Education re assistive Equipment, Education re Correct Donning Tech,Care&Wearing Sched Comp Garments, Home Program Other Interventions: CHT provided pt. with a hand based thumb spica orthoses, protective splinting. Pt. to wear when sleeping and out around people. - Visit Plan Frequency: 1x/Week Duration: 6 Weeks General Plan: 1x a week for 6 weeks to adjust orthoses and strengthen R hand. TEXT: Thank you for the opportunity to evaluate your patient. For Medicare and Medicare HMO plans, please review the plan of care and approve it. It will need to be FAXED BACK to us at [phone] for Medicare purposes. Please let me know if there are questions or concerns regarding this plan of care. Physician Signature: Date:
--- NOTE | 2021-12-23 15:37 | HP.OTDCSUM ---
It has been my pleasure to treat RISHABH HIGUERA under orders from THERESA Cerrato, for the diagnosis of R displaced oblique fracture of distal phalanx thumb for a total of 1 visit(s). Please see the following information for a summary of their discharge status. % Improvement: 95 Objective/Function: right aviation all source intelligence 25# left 20#. right lateral pinch 8# left 2#. right tripod pinch 4# left 2#. edema IP circumference 6cm. CMC flex 15*. MP flex 50 increase from 40*. IP 45 increase from 25*. pt states she is 95% better and agrees with D/C Patient Goals: Regain Mobility, Regain Strength, Decrease Pain, Decrease Swelling/Stiffness, Improve Fine Motor Skills, Use Hand/Wrist/Arm Normally Again, Decrease Tingling/Numbness, Increase ROM, Resume Former Household Responsibilities (Cooking,Cleaning,Yard, etc.) Other: R handed Goal:: Pt. will increase aviation all source intelligence and pinch strength with R hand for IADL tasks (aviation all source intelligence steering wheel) by dc. Goal:: Pt. will increase R thumb ROM flexion to use smaller items such as pen for writing by dc. Goal:: Pt. will report pain level <3/10 in R thumb during OT tx's and while perform ADls and IADLs by dc Goal:: Pt. R thumb circumference will be 6cm by dc. Plan: D/C Discharge Comments: pt was seen for 6 OT visits following a right thumb fx. pt reports she has returned to performing 95% of her ADls. pt has met OT goals and is D/C at this time. If there are questions or concerns regarding this patient's occupational therapy, please fell free to call me at [phone]. Thank you for the referral of this patient. Sincerely, Marely Espinal, OTR/L, CHT
== END 2021-12-23 19:00 | disposition home or self-care (01) ==
LOC: OT 15:00
PROVIDERS: PCP Family Medicine Geriatric Medicine
DX: S62.521A Displaced fracture of distal phalanx of right thumb, initial encounter for closed fracture (principal); X58.XXXA Exposure to other specified factors, initial encounter; M18.11 Unilateral primary osteoarthritis of first carpometacarpal joint, right hand
CPT/HCPCS: 97110; 97165; 97530

== ENCOUNTER → 2022-03-17 | Outpatient (CLI) | payer MEDICARE, MEDICAID, SELFPAY ==
[2022-03-17 16:49] LABS: Absolute Lymphocyte Count 2.28 X10^3/uL (0.83-4.51); Absolute Neutrophil Count 5.1 X10^3/uL (2.0-7.7); Basophil# 0.07 X10^3/uL; Basophil% 0.9 % (0-1); Eosinophil# 0.08 X10^3/uL; Hematocrit 36.7 % (37-47); Hemoglobin 12.2 g/dL (12.0-15.0); Lymphocyte # 2.28 X10^3/ul (0.83-4.51); Lymphocyte % 28.2 % (19-41); Mean Corp Hgb Conc 33.2 g/dL (32-36); Mean Corpuscular Volume 90.2 fL (81-99); Mean Platelet Vol. 12.5 fl (6.2-12.0); Monocyte# 0.57 X10^3/uL; NRBC Flagged by Analyzer 0 % (0-5); Neutrophil # 5.07 X10^3/uL (2.7-7.7); Neutrophil % 62.7 % (47-70); Platelet Count 282 K/mm3 (150-450); RBC Distribution Width CV 12.1 % (11.6-14.6); RBC Distribution Width SD 39.8 fl (35.1-43.9); Red Blood Count 4.07 M/mm3 (4.2-5.4); White Blood Count 8.1 K/mm3 (4.4-11.0)
[2022-03-17 17:05] LABS: Vitamin D,25 Hydroxy 36.6 ng/mL
[2022-03-17 17:14] LABS: ALB/GLOB Ratio 0.8 RATIO (0.9-2.4); AST(SGOT) 8 U/L (15-37); Alanine Aminotransfer ALT/SGPT 27 U/L (13-56); Albumin, Serum 3.3 g/dL (3.2-5.0); Alkaline Phosphatase 77 U/L (45-117); Anion Gap 6 (5-15); BUN 19 mg/dL (7-18); BUN/Creat Ratio 19.6 RATIO (10-20); Calcium,Total 9.3 mg/dL (8.5-10.1); Chloride 106 mmol/L (98-107); Creatinine, Serum 0.97 mg/dL (0.55-1.02); EST Glomerular Filtration Rate 60 mL/min (>60); Est Glom Filt Rate - Afr Amer 73 mL/min (>60); Glucose 185 mg/dL (74-106); Potassium 4.2 mmol/L (3.5-5.1); Protein, Total 7.3 g/dL (6.4-8.2); Sodium Level 139 mmol/L (136-145); Thyroid Stim Hormone (TSH) 2.18 uIU/mL (0.358-3.74)
== END | disposition home or self-care (01) ==
LOC: POLAB3 13:48
PROVIDERS: PCP Family Medicine Geriatric Medicine; Visit Provider Family Medicine Geriatric Medicine
DX: I10 Essential (primary) hypertension (principal); E11.65 Type 2 diabetes mellitus with hyperglycemia; E55.9 Vitamin D deficiency, unspecified
CPT/HCPCS: 36415; 80053; 82306; 84443; 85025

== ENCOUNTER → 2022-04-11 | Outpatient (CLI) | payer MEDICARE, MEDICAID, SELFPAY ==
--- NOTE | 2022-04-11 14:13 | NEURO_ITS ---
NCS and/or EMG Patient Report Ordering Doctor: Castro Browne DATE OF SERVICE: 04/11/22 Indication: Intermittent soreness in several locations of both legs. Symptoms can occur in either leg independently or simultaneously. Evaluate for peripheral nerve etiology. Findings: Nerve conduction studies were performed in the right and left lower extremities. The right peroneal motor study recording the extensor digitorum brevis showed a normal amplitude, normal distal latency and normal conduction velocity. No co nduction block or focal slowing was present across the fibular neck. The right tibial motor study recording the abductor hallucis brevis showed a normal amplitude, normal distal latency and normal conduction velocity. Right sural sensory response showed a normal amplitude and conduction velocity. Right superficial peroneal sensory response showed a normal amplitude and conduction velocity. The left peroneal motor study recording the extensor digitorum brevis showed a normal amplitude, normal distal latency and normal conduction velocity. No conduction block or focal slowing was present across the fibular neck. The left tibial motor study recording the abductor hallucis brevis showed a normal amplitude, normal distal latency and normal conduction velocity. Left sural sensory response showed a normal amplitude and conduction velocity. Left superficial peroneal sensory response showed a normal amplitude and conduction velocity. Needle EMG of the right lower extremity muscles was performed. No denervation was present in any muscle. All motor unit morphology, activation and recruitment patterns were normal. Needle EMG of the left lower extremity was omitted given the symmetry of symptoms and lack of pertinent findings on the right. Impression: This is a normal study. There is no electrophysiologic evidence of peripheral neuropathy in either the right or left lower extremity. In addition, there is no evidence of lumbosacral radiculopathy or plexopathy in the right lower extremity. Deshawn Islas D.O. Multi Select Codes Neurology Neurology Interp Codes: 17592-34 Musc test done w/n test comp (interp) and 20143-84 Nrv cndj test 7-8 studies (interp)
== END | disposition home or self-care (01) ==
LOC: PSN 11:45
PROVIDERS: PCP Family Medicine Geriatric Medicine; Visit Provider Podiatrist
DX: E11.42 Type 2 diabetes mellitus with diabetic polyneuropathy (principal)
CPT/HCPCS: 95886; 95910

== ENCOUNTER → 2022-04-21 | Outpatient (CLI) | payer MEDICARE, MEDICAID, SELFPAY ==
[2022-04-21 16:15] LABS: Absolute Lymphocyte Count 2.37 X10^3/uL (0.83-4.51); Absolute Neutrophil Count 5.8 X10^3/uL (2.0-7.7); Basophil# 0.07 X10^3/uL; Basophil% 0.8 % (0-1); Eosinophil# 0.15 X10^3/uL; Eosinophils% 1.7 % (0-5); Hematocrit 39.5 % (37-47); Hemoglobin 12.5 g/dL (12.0-15.0); Lymphocyte # 2.37 X10^3/ul (0.83-4.51); Lymphocyte % 26.1 % (19-41); Mean Corp Hgb Conc 31.6 g/dL (32-36); Mean Corpuscular Hgb 28.3 pg (27.0-32.0); Mean Corpuscular Volume 89.4 fL (81-99); Mean Platelet Vol. 11.8 fl (6.2-12.0); Monocyte# 0.65 X10^3/uL; Monocyte% 7.2 % (0-10); NRBC Flagged by Analyzer 0 % (0-5); Neutrophil # 5.81 X10^3/uL (2.7-7.7); Platelet Count 280 K/mm3 (150-450); RBC Distribution Width CV 12.1 % (11.6-14.6); RBC Distribution Width SD 39.9 fl (35.1-43.9); Red Blood Count 4.42 M/mm3 (4.2-5.4); White Blood Count 9.1 K/mm3 (4.4-11.0)
[2022-04-21 16:36] LABS: Anion Gap 6 (5-15); BUN 21 mg/dL (7-18); BUN/Creat Ratio 22.5 RATIO (10-20); Calcium,Total 9.3 mg/dL (8.5-10.1); Chloride 101 mmol/L (98-107); Creatinine, Serum 0.93 mg/dL (0.55-1.02); EST Glomerular Filtration Rate 63 mL/min (>60); Est Glom Filt Rate - Afr Amer 76 mL/min (>60); Glucose 321 mg/dL (74-106); Potassium 4.2 mmol/L (3.5-5.1); Sodium Level 137 mmol/L (136-145)
[2022-04-21 16:42] LABS: BNP,B-Type NATRIURETIC PEPTIDE 40.1 pg/mL (0-100)
== END | disposition home or self-care (01) ==
LOC: LAB 15:38
PROVIDERS: PCP Family Medicine Geriatric Medicine; Referring Provider Nurse Practitioner Gerontology; Visit Provider Nurse Practitioner Gerontology
DX: R06.00 Dyspnea, unspecified (principal); I10 Essential (primary) hypertension
CPT/HCPCS: 36415; 80048; 83880; 85025

== ENCOUNTER 2022-07-12 10:56 | Day surgery (SDC) | payer MEDICARE, MEDICAID, SELFPAY ==
[2022-07-12] VITALS (7 sets, daily range): BP systolic 86–123; BP diastolic 56–59; PULSE 55–69; RESP 16; TEMP 36.2–36.6; O2SAT 98–100; BMI 33.1
--- NOTE | 2022-07-12 11:56 | HP.PCM_ITS ---
History and Physical Date of Admission: 07/12/22 71 F who presents to the office today for?Follow up visit. Layla established with this clinic 03.11.21 following [facility] hospitalization. Gastroenterology saw her as an outpatient for persistent nausea and she was diagnosed with idiopathic, recurrent pancreatitis as seen on CT scan where layering of the gallbladder with stones/sludge was seen. She was then lost to follow up. Follow up 12.09.21 she continues to have difficulty with nausea with periodic emesis and bloating. She does have a known hiatal hernia for which she attributes to her symptoms. Presents today with referral from PCP. She presented to [facility] ED 11.06.21 for abdominal cramping and inability to have a BM. KUB obtained and fleets enema performed with no effect. CT scan performed without contrast (unable to drink) and diagnosis of diverticulitis given with PO cipro and flagyl provided. She then presented to PCP with continued nausea/emesis, lower abdominal pain and inability to have a BM. She was given Levaquin and flagyl IV and Linzess 290MCG. Seen the next day and Rocephin IM added with PO Levaquin and flagyl for diverticulitis and lactulose added to promote BM. November 15 She reported a good BM and resolution of nausea/vomiting and abdominal pain. BM is typically 1-3 times a day with normal/soft stooling; though she has difficulty with lower abdominal cramping without identifying trigger. PMH includes hyperlipidemia; HTN; DM; CVA; NSTEMI; Ischemic stroke. CT abd/pel 11.06.21 noted minimal sludge in gallbladder; small hiatal hernia; fecal retention; diverticulosis with evidence of diverticulitis. ROS Const Constitutional: No other (6 system ROS completed with pertinent findings in the HPI otherwise normal.) Quality Reporting Tobacco Screening (CMS 138) Smoking Status: Former smoker Assessment and Plan Assessment and Plan (1) Pancreatitis: ?Status:?Acute ?Plan: Acute recurrent secondary to alcohol.? We will get an MRCP to see if she has any signs of chronic pancreatitis and present remainder of pancreatitis or biliary stricture.? He already has a cystic structure secondary to cirrhosis.? However we will also check. (2) Bloating: ?Status:?Chronic ?Comment: Patient ?Plan: ?as I believe a lot of her issues are secondary patient being chronically constipated.? We will get her a specific bowel regimen to hopefully allow her to evacuate completely on a daily basis. (3) Constipation: ?Status:?Chronic I have examined the patient and the H&P has been reviewed. There are no clinical changes since date of exam.
--- NOTE | 2022-07-12 12:00 | COLBX_PTH ---
PATIENT: RISHABH HIGUERA LOC: EN U#:[id number] AGE/SX: 72/F ROOM: RE07/12/[address]: Dr. Philip Drummond DO : 1950 BED: DIS: 07/12/2022 SPEC #: [id number] RECD: 07/12/22 15:00 STATUS: DONOVAN NELLY #: [id number] LYLA: 07/12/22 12:[address]: Philip Drummond DEPT: SURGICAL PATHOLOGY RECD BY: Rizwan Cast ENTERED: 07/13/22 08:46 SP TYPE: COLON BX OTHR DR: Dr. Taras Green MD Tissues: A - Duodenum, NOS B - Gastric mucous membrane C - Gastric mucous membrane D - Esophagus, NOS E - Ascending colon F - Cecum, NOS G - COLON BIOPSY Procedures: Special Stain Group II Surgery Specimen Level IV Alcian Blue/PAS (control) HEADER OPERATION: Colonoscopy with polypectomy and biopsies, EGD with biopsies PRE-OP DIAGNOSIS: Pancreatitis, bloating, constipation TISSUE SUBMITTED: A ? Duodenum biopsy, B ? Antrum biopsy for H. pylori and path, C ? Gastric body biopsy, D ? Distal esophagus biopsy, E ? Ascending colon polyp, F ? Cecum biopsy, G ? Random colon biopsy MICROSCOPIC DIAGNOSIS A. Duodenum, biopsy: Fragments of duodenal mucosa with nonspecific chronic inflammation. A minute detached fragment mucosa with fibrinous material and acute inflammation. See comment. B. Antrum, biopsy: Mild gastritis. See microscopic description and comment. C. Gastric body, biopsy: Mild gastritis. See microscopic description. D. Distal esophagus, biopsy: Fragments of gastroesophageal mucosa with chronic inflammation. Focal superficial acute inflammation. Intestinal metaplasia (goblet cell metaplasia) not identified. See comment. E. Ascending colon polyp, biopsy: Fragments of tubular adenoma. F. Cecum, biopsy: Tubular adenoma. G. Colon, random biopsy: Fragments of colonic mucosa, no pathologic diagnosis. SJ:mylene 07/14/2022 COMMENT B. The results of immunohistochemistry for Helicobacter pylori will be reported separately ([id number]). D. Alcian blue/PAS stain with matched control is used in the evaluation of the specimen. MICROSCOPIC DESCRIPTION Slides are reviewed. B. The specimen shows fragments of gastric mucosa with chronic inflammatory cell infiltrates in the lamina propria consisting of lymphocytes and plasma cells, consistent with mild chronic gastritis. C. The specimen shows fragments of gastric mucosa with chronic inflammatory cell infiltrates in the lamina propria consisting of lymphocytes and plasma cells, consistent with mild chronic gastritis. Focal mucosal congestion and hemorrhage are also noted. GROSS DESCRIPTION A - Received in fixative is one container labeled with the patient's name and designated duodenum biopsy. The specimen consists of two irregular fragments of light suarez soft tissue that in aggregate measure 0.6 x 0.3 x 0.1 cm. The specimen is totally submitted in one cassette. B - Received in fixative is one container labeled with the patient's name and designated antrum biopsy. The specimen consists of two irregular fragments of light suarez soft tissue that in aggregate measure 0.6 x 0.3 x 0.1 cm. The specimen is totally submitted in one cassette. C - Received in fixative is one container labeled with the patient's name and designated gastric body biopsy. The specimen consists of multiple irregular fragments of light suarez soft tissue that in aggregate measure 0.8 x 0.3 x 0.1 cm. The specimen is totally submitted in one cassette. D - Received in fixative is one container labeled with the patient's name and designated distal esophagus biopsy. The specimen consists of two irregular fragments of light suarez soft tissue that in aggregate measure 0.6 x 0.5 x 0.1 cm. The specimen is totally submitted in one cassette. E - Received in fixative is one container labeled with the patient's name and designated ascending colon polyp. The specimen consists of one pink polyp measuring 0.6 x 0.6 x 0.5 cm. Also present in a container is a fragment of suarez soft tissue measuring 0.2 x 0.2 x 0.1 cm. The specimen is totally submitted in one cassette. F - Received in fixative is one container labeled with the patient's name and designated cecum biopsy. The specimen consists of two irregular fragments of light suarez soft tissue that in aggregate measure 0.4 x 0.3 x 0.1 cm. The specimen is totally submitted in one cassette. G - Received in fixative is one container labeled with the patient's name and designated random colon biopsy. The specimen consists of multiple irregular fragments of light suarez soft tissue that in aggregate measure 1.5 x 0.5 x 0.1 cm. The specimen is totally submitted in one cassette. / PRABHJOT:mylene 07/13/2022 TC:1 CPT: 32203 x7, 15918
--- NOTE | 2022-07-12 12:00 | IMM_PTH ---
PATIENT: RISHABH HIGUERA LOC: EN U#:[id number] AGE/SX: 72/F ROOM: RE07/12/[address]: Dr. Philip Drummond DO : 1950 BED: DIS: 07/12/2022 SPEC #: [id number] RECD: 07/13/22 08:20 STATUS: DONOVAN REVinnie #: [id number] LYLA: 07/12/22 12:[address]: Philip Drummond DEPT: IMMUNOHISTOCHEMISTRY RECD BY: Rizwan Cast ENTERED: 07/13/22 08:22 SP TYPE: IMMUNO OTHR DR: Dr. Taras Green MD Tissues: Stomach, NOS Procedures: H Pylori (initial) PHYSICIAN & INSTITUTION [place] [id number] SPECIMEN INFORMATION: Tissue Source: B - Antrum biopsy Clinical Info: Pancreatitis, bloating, constipation Specimen Number: [id number] CPT code: 49887 METHODOLOGY: Deparaffinized sections of prefer/formalin-fixed tissue or PAP/DQ stained slides are incubated with monoclonal/polyclonal antibodies/oligonucleotide probes. Localization is made via biotin free immunoperoxidase method. Appropriate controls are performed and reacted as expected. Results on target cell population are indicated in the following table: RESULTS: ANTIBODY / CLONE RESULT Block B H Pylori (polyclonal) negative These tests were developed and their performance characteristics determined by [facility]. They may not have been cleared or approved by the U.S. Food and Drug Administration. The FDA has determined that such clearance or approval is not necessary. The above immunohistochemical/dualISH markers are ordered and reviewed by the Pathologist. INTERPRETATION: B. Antrum, biopsy: Negative for Helicobacter pylori organisms. SJ:mylene 07/14/2022
--- NOTE | 2022-07-12 12:48 | OP.EGD_ITS ---
Patient Name: Layla Stark Procedure Date: 07/12/2022 11:54 AM Date of : 1950 Age: 72 Procedure: Upper GI endoscopy Indications: Epigastric abdominal pain, Functional Dyspepsia, Dysphagia Providers: Philip Drummond DO Medicines: Monitored Anesthesia Care Patient Profile: This is a 72 year old female. Refer to note in patient chart for documentation of history and physical. Patient has symptoms of chronic abdominal cramping, acute epigastric abdominal pain and dysphagia with solids. Complications: No immediate complications. Procedure: Pre-Anesthesia Assessment: - Prior to the procedure, a History and Physical was performed, and patient medications and allergies were reviewed. The risks and benefits of the procedure and the sedation options and risks were discussed with the patient. All questions were answered and informed consent was obtained. Patient identification and proposed procedure were verified by the physician in the pre-procedure area. Mental Status Examination: alert and oriented. Airway Examination: normal oropharyngeal airway and neck mobility. Respiratory Examination: clear to auscultation. CV Examination: normal. Prophylactic Antibiotics: The patient does not require prophylactic antibiotics. Prior Anticoagulants: The patient has taken no previous anticoagulant or antiplatelet agents. After reviewing the risks and benefits, the patient was deemed in satisfactory condition to undergo the procedure. The anesthesia plan was to use monitored anesthesia care (MAC). Immediately prior to administration of medications, the patient was re-assessed for adequacy to receive sedatives. The heart rate, respiratory rate, oxygen saturations, blood pressure, adequacy of pulmonary ventilation, and response to care were monitored throughout the procedure. The physical status of the patient was re-assessed after the procedure. After obtaining informed consent, the endoscope was passed under direct vision. Throughout the procedure, the patient's blood pressure, pulse, and oxygen saturations were monitored continuously. The Colonoscope was introduced through the mouth, and advanced to the second part of duodenum. The upper GI endoscopy was accomplished without difficulty. The patient tolerated the procedure well. Scope In: 12:05:11 PM Scope Out: 12:15:12 PM Total Procedure Duration Time 0 hours 10 minutes 1 second Findings: LA Grade B (one or more mucosal breaks greater than 5 mm, not extending between the tops of two mucosal folds) esophagitis with no bleeding was found 36 to 38 cm from the incisors. Biopsies were taken with a cold forceps for histology. Verification of patient identification for the specimen was done. Estimated blood loss was minimal. A moderate Schatzki ring was found in the lower third of the esophagus. A guidewire was placed and the scope was withdrawn. Dilation was performed with a Savary dilator with no resistance at 51 Fr. The dilation site was examined and showed moderate improvement in luminal narrowing. Estimated blood loss was minimal. A small hiatal hernia was present. Localized mildly erythematous mucosa without bleeding was found in the gastric body and in the gastric antrum. Biopsies were taken with a cold forceps for histology. Verification of patient identification for the specimen was done. Estimated blood loss was minimal. Two non-bleeding superficial duodenal ulcers with no stigmata of bleeding were found in the duodenal bulb. The largest lesion was 6 mm in largest dimension. Biopsies were taken with a cold forceps for histology. Verification of patient identification for the specimen was done. Estimated blood loss was minimal. Impression: - LA Grade B reflux esophagitis. Biopsied. - Moderate Schatzki ring. Dilated. - Small hiatal hernia. - Erythematous mucosa in the gastric body and antrum. Biopsied. - Multiple non-bleeding duodenal ulcers with no stigmata of bleeding. Biopsied. Recommendation: - Discharge patient to home. - Resume previous diet. - Continue present medications. - Await pathology results. - Repeat upper endoscopy in 6 months to check healing. - Autoimmune disease labs as an outpatient Procedure Code(s): --- Professional --- 83872, Esophagogastroduodenoscopy, flexible, transoral; with insertion of guide wire followed by passage of dilator(s) through esophagus over guide wire [id number], 59, Esophagogastroduodenoscopy, flexible, transoral; with biopsy, single or multiple CPT copyright 2017 [employer]. All rights reserved. The codes documented in this report are preliminary and upon dandy operator review may be revised to meet current compliance requirements. Philip Drummond DO 07/12/2022 12:48:43 PM This report has been signed electronically. Number of Addenda: 0 Note Initiated On: 07/12/2022 11:54 AM
--- NOTE | 2022-07-12 12:49 | OP.CCLET_ITS ---
07/12/2022 Taras Green MD [address] [place] [address] Re : Upper GI endoscopy procedure for Layla Stark Dear Dr. Green This procedure was performed on Tuesday, July 12, 2022. My impressions and recommendations are as follows: Impressions : - LA Grade B reflux esophagitis. Biopsied. - Moderate Schatzki ring. Dilated. - Small hiatal hernia. - Erythematous mucosa in the gastric body and antrum. Biopsied. - Multiple non-bleeding duodenal ulcers with no stigmata of bleeding. Biopsied. Recommendations : - Discharge patient to home. - Resume previous diet. - Continue present medications. - Await pathology results. - Repeat upper endoscopy in 6 months to check healing. - Autoimmune disease labs as an outpatient My findings are described in the full procedure note, which is enclosed. If I can be of further assistance, please feel free to contact me at . Sincerely, Philip Drummond, 07/12/2022 12:48:43 PM This report has been signed electronically.
--- NOTE | 2022-07-12 13:29 | OP.COLON_ITS ---
Patient Name: Layla Stark Procedure Date: 07/12/2022 12:18 PM Date of : 1950 Age: 72 Procedure: Colonoscopy Indications: Generalized abdominal pain, Clinically significant diarrhea of unexplained origin Providers: Philip Drummond DO Medicines: Propofol per Anesthesia Patient Profile: This is a 72 year old female. Refer to note in patient chart for documentation of history and physical. Patient has symptoms of chronic abdominal cramping, acute epigastric abdominal pain and dysphagia with solids. Last Colonoscopy: date unknown. Unable to locate last colonoscopy report. Complications: No immediate complications. Procedure: Pre-Anesthesia Assessment: - Prior to the procedure, a History and Physical was performed, and patient medications and allergies were reviewed. The risks and benefits of the procedure and the sedation options and risks were discussed with the patient. All questions were answered and informed consent was obtained. Patient identification and proposed procedure were verified by the physician in the pre-procedure area. Mental Status Examination: alert and oriented. Airway Examination: normal oropharyngeal airway and neck mobility. Respiratory Examination: clear to auscultation. CV Examination: normal. Prophylactic Antibiotics: The patient does not require prophylactic antibiotics. Prior Anticoagulants: The patient has taken no previous anticoagulant or antiplatelet agents. After reviewing the risks and benefits, the patient was deemed in satisfactory condition to undergo the procedure. The anesthesia plan was to use monitored anesthesia care (MAC). Immediately prior to administration of medications, the patient was re-assessed for adequacy to receive sedatives. The heart rate, respiratory rate, oxygen saturations, blood pressure, adequacy of pulmonary ventilation, and response to care were monitored throughout the procedure. The physical status of the patient was re-assessed after the procedure. After I obtained informed consent, the scope was passed under direct vision. Throughout the procedure, the patient's blood pressure, pulse, and oxygen saturations were monitored continuously. The Colonoscope was introduced through the anus and advanced to the terminal ileum. The terminal ileum, ileocecal valve, appendiceal orifice, and rectum were photographed. Scope In: 12:18:52 PM Scope Out: 12:39:16 PM Total Procedure Duration Time 0 hours 20 minutes 24 seconds Findings: The perianal and digital rectal examinations were normal. Two sessile polyps were found in the ascending colon and cecum. The polyps were 1 to 2 mm in size. These polyps were removed with a hot snare. Resection and retrieval were complete. Verification of patient identification for the specimen was done. Estimated blood loss was minimal. An area of mildly congested mucosa was found in the sigmoid colon, at the splenic flexure and in the ascending colon. Biopsies were taken with a cold forceps for histology. Verification of patient identification for the specimen was done. Estimated blood loss was minimal. Retroflexion was not performed during this procedure due to a very small incompetent anus and rectum Impression: - Two 1 to 2 mm polyps in the ascending colon and in the cecum, removed with a hot snare. Resected and retrieved. - Congested mucosa in the sigmoid colon, at the splenic flexure and in the ascending colon. Biopsied. Recommendation: - Discharge patient to home. - Resume previous diet. - Continue present medications. - Await pathology results. - Repeat colonoscopy in 5 years for surveillance. Procedure Code(s): --- Professional --- 58432, Colonoscopy, flexible; with removal of tumor(s), polyp(s), or other lesion(s) by snare technique 05809, 59, Colonoscopy, flexible; with biopsy, single or multiple CPT copyright 2017 [employer]. All rights reserved. The codes documented in this report are preliminary and upon traffic administrator review may be revised to meet current compliance requirements. Philip Drummond DO 07/12/2022 1:29:08 PM This report has been signed electronically. Number of Addenda: 0 Note Initiated On: 07/12/2022 12:18 PM
--- NOTE | 2022-07-12 13:29 | OP.CCLET_ITS ---
07/12/2022 Taras Green MD [address] [place] [address] Re : Colonoscopy procedure for Layla Stark Dear Dr. Green This procedure was performed on Tuesday, July 12, 2022. My impressions and recommendations are as follows: Impressions : - Two 1 to 2 mm polyps in the ascending colon and in the cecum, removed with a hot snare. Resected and retrieved. - Congested mucosa in the sigmoid colon, at the splenic flexure and in the ascending colon. Biopsied. Recommendations : - Discharge patient to home. - Resume previous diet. - Continue present medications. - Await pathology results. - Repeat colonoscopy in 5 years for surveillance. My findings are described in the full procedure note, which is enclosed. If I can be of further assistance, please feel free to contact me at . Sincerely, Philip Drummond, 07/12/2022 1:29:08 PM This report has been signed electronically.
--- NOTE | 2022-07-12 13:47 | SUR.PHASEII ---
This RN spoke with endoscopy nurse that asked Dr. Drummond if patient needs to start any new medications or change medications she is taking becuase of findings from procedure. Dr Drummond said no changes.
== END 2022-07-12 14:02 | disposition home or self-care (01) ==
LOC: EN 10:57 → AC 10:58
PROVIDERS: PCP Family Medicine Geriatric Medicine; Referring Provider Family Medicine Geriatric Medicine; Visit Provider Internal Medicine Gastroenterology
PROC: 0DJD8ZZ Inspection of Lower Intestinal Tract, Via Natural or Artificial Opening Endoscopic (ICD-10-PCS; CPT 45378; principal; 2022-07-12 11:55)
DX: K85.90 Acute pancreatitis without necrosis or infection, unspecified (principal); K74.60 Unspecified cirrhosis of liver; K26.9 Duodenal ulcer, unspecified as acute or chronic, without hemorrhage or perforation; K44.9 Diaphragmatic hernia without obstruction or gangrene; R14.0 Abdominal distension (gaseous); Z87.891 Personal history of nicotine dependence; R10.84 Generalized abdominal pain; R13.10 Dysphagia, unspecified; K59.00 Constipation, unspecified; R19.7 Diarrhea, unspecified; K21.00 Gastro-esophageal reflux disease with esophagitis, without bleeding; K29.70 Gastritis, unspecified, without bleeding; D12.2 Benign neoplasm of ascending colon; D12.0 Benign neoplasm of cecum
CPT/HCPCS: 45385; 45380; 43248; 43239; 88305; 88313; 88342; J7120; C1769; J2405

== ENCOUNTER → 2022-07-16 | Outpatient (CLI) | payer MEDICARE, MEDICAID, SELFPAY | END | disposition home or self-care (01) | LOC: LABSPEC 07-19 09:32 | PROVIDERS: PCP Family Medicine Geriatric Medicine; Visit Provider Physician Assistant Surgical | DX: N39.0 Urinary tract infection, site not specified (principal); R30.0 Dysuria | CPT/HCPCS: 87086; 87088; 87186 ==

== ENCOUNTER → 2022-08-04 | Outpatient (CLI) | payer MEDICARE, MEDICAID, SELFPAY ==
--- NOTE | 2022-08-04 16:20 | RAD_ITS ---
EXAM: XR ABDOMEN, 2 VIEWS CLINICAL INDICATION: pain TECHNIQUE: Frontal view of the abdomen/pelvis with upright view of the abdomen. This report was created using [employer] report generation technology. COMPARISON: None. FINDINGS: LOWER THORAX: No acute pathology. INTRAPERITONEAL SPACE: No free air. GASTROINTESTINAL TRACT: Unremarkable. Non-obstructive. No bowel or stomach distention. ORGANS: Unremarkable as visualized. No organomegaly. No abnormal calcifications. BONES/JOINTS: Dextroscoliosis of the lumbar spine with diffuse degenerative changes. SOFT TISSUES: No acute pathology. RAD/Abd Inc Decub and/or Erect IMPRESSION: No acute findings in the abdomen or pelvis. Electronically Signed: Kennedy Lackey MD at 5:00 EST ,
[2022-08-04 17:05] LABS: Absolute Lymphocyte Count 2.11 X10^3/uL (0.83-4.51); Absolute Neutrophil Count 4.5 X10^3/uL (2.0-7.7); Basophil# 0.07 X10^3/uL; Basophil% 0.9 % (0-1); Eosinophil# 0.12 X10^3/uL; Eosinophils% 1.6 % (0-5); Hematocrit 41.3 % (37-47); Lymphocyte # 2.11 X10^3/ul (0.83-4.51); Lymphocyte % 28.4 % (19-41); Mean Corp Hgb Conc 31.5 g/dL (32-36); Mean Corpuscular Hgb 27.8 pg (27.0-32.0); Mean Corpuscular Volume 88.2 fL (81-99); Mean Platelet Vol. 12.7 fl (6.2-12.0); Monocyte# 0.59 X10^3/uL; Monocyte% 7.9 % (0-10); NRBC Flagged by Analyzer 0 % (0-5); Neutrophil # 4.52 X10^3/uL (2.7-7.7); Neutrophil % 60.8 % (47-70); Platelet Count 304 K/mm3 (150-450); RBC Distribution Width CV 13.5 % (11.6-14.6); RBC Distribution Width SD 43.8 fl (35.1-43.9); Red Blood Count 4.68 M/mm3 (4.2-5.4); White Blood Count 7.4 K/mm3 (4.4-11.0)
[2022-08-04 17:22] LABS: Vitamin D,25 Hydroxy 28.3 ng/mL
[2022-08-04 17:55] LABS: ALB/GLOB Ratio 0.8 RATIO (0.9-2.4); AST(SGOT) 16 U/L (15-37); Alanine Aminotransfer ALT/SGPT 26 U/L (13-56); Albumin, Serum 3.5 g/dL (3.2-5.0); Alkaline Phosphatase 91 U/L (45-117); Anion Gap 9 (5-15); BUN 20 mg/dL (7-18); BUN/Creat Ratio 19.8 RATIO (10-20); Calcium,Total 9.6 mg/dL (8.5-10.1); Chloride 107 mmol/L (98-107); Creatinine, Serum 1.01 mg/dL (0.55-1.02); EST Glomerular Filtration Rate 57 mL/min (>60); Est Glom Filt Rate - Afr Amer 69 mL/min (>60); Globulin 4.3 g/dL (2.2-4.2); Glucose 136 mg/dL (74-106); Protein, Total 7.8 g/dL (6.4-8.2); Sodium Level 140 mmol/L (136-145); Thyroid Stim Hormone (TSH) 1.98 uIU/mL (0.358-3.74)
== END | disposition home or self-care (01) ==
PROVIDERS: PCP Family Medicine Geriatric Medicine; Visit Provider Family Medicine Geriatric Medicine
DX: E55.9 Vitamin D deficiency, unspecified (principal); E11.65 Type 2 diabetes mellitus with hyperglycemia; I10 Essential (primary) hypertension; R11.2 Nausea with vomiting, unspecified
CPT/HCPCS: 36415; 74019; 80053; 82306; 84443; 85025

== ENCOUNTER → 2022-10-04 | Outpatient (CLI) | payer MEDICARE, MEDICAID, SELFPAY | END | disposition home or self-care (01) | LOC: PSN 13:54 | PROVIDERS: PCP Family Medicine Geriatric Medicine; Referring Provider Family Medicine Geriatric Medicine; Visit Provider Family Medicine Geriatric Medicine | DX: R68.83 Chills (without fever) (principal) | CPT/HCPCS: 87635; 87804; 87807; C9803; U0003; U0005 ==

== ENCOUNTER → 2022-11-08 | Outpatient (CLI) | payer MEDICARE, MEDICAID, SELFPAY ==
[2022-11-11 17:07] LABS: HPV APTIMA, High Risk Negative (Negative)
== END | disposition home or self-care (01) ==
LOC: LABSPEC 15:38
PROVIDERS: PCP Family Medicine Geriatric Medicine; Visit Provider Nurse Practitioner Women's Health
DX: Z01.419 Encounter for gynecological examination (general) (routine) without abnormal findings (principal); N39.0 Urinary tract infection, site not specified
CPT/HCPCS: 87086; 87088; 87624; 88175; G0145

== ENCOUNTER → 2022-11-09 | Outpatient (CLI) | payer MEDICARE, MEDICAID, SELFPAY ==
--- NOTE | 2022-11-09 11:19 | NM_ITS ---
CLINICAL: 72-year-old diabetic female with history of reflux and abdominal bloating. SEMI-SOLID PHASE 99m Tc SULFUR COLLOID GASTRIC EMPTYING STUDY COMPARISON: None available FINDINGS: The patient was administered 1.0 mCi of 99m Tc sulfur colloid mixed with oatmeal and consumed per os. Image acquisitions in the anterior projection were obtained for 60 minutes. There is prompt visualization of the stomach. There is no gastroesophageal reflux identified. The T ? raw data emptying was calculated to be 27.55 minutes, (Normal: 12-56 minutes). NM/Gastric Emptying Study IMPRESSION: 1. NORMAL 99m Tc sulfur colloid semi-solid phase (oatmeal) gastric emptying imaging examination. A. There is normal and preserved semi-solid phase gastric emptying compared to normal controls. (Jenanie et al, J Nucl Med Tech 38: 186, 2010). Electronically Signed: Rogelio Lopez, at 21:13 EDT ,
== END | disposition home or self-care (01) ==
LOC: NM 11:18
PROVIDERS: PCP Family Medicine Geriatric Medicine; Referring Provider Internal Medicine Gastroenterology; Visit Provider Internal Medicine Gastroenterology
DX: R11.0 Nausea (principal); R14.0 Abdominal distension (gaseous); K59.00 Constipation, unspecified
CPT/HCPCS: 78264; A9541

== ENCOUNTER → 2022-11-15 | Outpatient (CLI) | payer MEDICARE, MEDICAID, SELFPAY ==
[2022-11-15 16:00] LABS: Absolute Lymphocyte Count 1.98 X10^3/uL (0.83-4.51); Absolute Neutrophil Count 4.9 X10^3/uL (2.0-7.7); Basophil# 0.04 X10^3/uL; Basophil% 0.5 % (0-1); Eosinophil# 0.12 X10^3/uL; Eosinophils% 1.6 % (0-5); Hematocrit 41.1 % (37-47); Hemoglobin 12.9 g/dL (12.0-15.0); Lymphocyte # 1.98 X10^3/ul (0.83-4.51); Lymphocyte % 26.6 % (19-41); Mean Corp Hgb Conc 31.4 g/dL (32-36); Mean Corpuscular Hgb 28.2 pg (27.0-32.0); Mean Corpuscular Volume 89.9 fL (81-99); Mean Platelet Vol. 12.4 fl (6.2-12.0); Monocyte# 0.43 X10^3/uL; Monocyte% 5.8 % (0-10); NRBC Flagged by Analyzer 0 % (0-5); Neutrophil # 4.85 X10^3/uL (2.7-7.7); Neutrophil % 65.2 % (47-70); Platelet Count 258 K/mm3 (150-450); RBC Distribution Width CV 13.8 % (11.6-14.6); RBC Distribution Width SD 45.2 fl (35.1-43.9); Red Blood Count 4.57 M/mm3 (4.2-5.4); White Blood Count 7.4 K/mm3 (4.4-11.0)
[2022-11-15 16:14] LABS: Erythrocyte Sedimentation Rate 25 mm/hr (0-30)
[2022-11-15 16:16] LABS: Hemoglobin A1c 7.2 % (3.8-5.6)
[2022-11-15 16:25] LABS: Vitamin D,25 Hydroxy 41.3 ng/mL
[2022-11-15 19:39] LABS: ALB/GLOB Ratio 0.9 RATIO (0.9-2.4); AST(SGOT) 12 U/L (15-37); Alanine Aminotransfer ALT/SGPT 25 U/L (13-56); Albumin, Serum 3.8 g/dL (3.2-5.0); Alkaline Phosphatase 86 U/L (45-117); Anion Gap 7 (5-15); BUN 26 mg/dL (7-18); BUN/Creat Ratio 26.9 RATIO (10-20); CRP < 2.90 mg/L (0.0-3.0); Calcium,Total 9.4 mg/dL (8.5-10.1); Chloride 104 mmol/L (98-107); Cholesterol 168 mg/dL (200); Creatinine, Serum 0.97 mg/dL (0.55-1.02); EST Glomerular Filtration Rate 60 mL/min (>60); Est Glom Filt Rate - Afr Amer 73 mL/min (>60); Globulin 4.1 g/dL (2.2-4.2); Glucose 212 mg/dL (74-106); High Density Lipoprotein 44 mg/dL; LDH 206 U/L (84-246); Potassium 4.4 mmol/L (3.5-5.1); Protein, Total 7.9 g/dL (6.4-8.2); Sodium Level 138 mmol/L (136-145); Thyroid Stim Hormone (TSH) 2.02 uIU/mL (0.358-3.74); Triglycerides 145 mg/dL; Very Low Density Lipoprotein 29 mg/dL (5-40)
[2022-11-17 13:07] LABS: Anti-Centromere B Ab <0.2 AI (0.0-0.9); Anti-Chromatin <0.2 AI (0.0-0.9); Anti-Jo <0.2 AI (0.0-0.9); Anti-Scleroderma-70 AB <0.2 AI (0.0-0.9); Anti-dsDNA Ab <1 IU/mL (0-9); RNP Ab <0.2 AI (0.0-0.9); SJOGREN'S Anti-SS-A test < 0.2 AI (0.0-0.9); SJOGREN'S Anti-SS-B test < 0.2 AI (0.0-0.9); Smith Ab <0.2 AI (0.0-0.9)
[2022-11-17 16:09] LABS: Endomysial Antibody IgA Negative (Negative); Immunoglobulin A 411 mg/dL (64-422); t-Transglutaminase IgA <2 U/mL (0-3)
[2022-11-20 10:07] LABS: Albumin 3.8 g/dL (2.9-4.4); Alpha-1-Globulins 0.3 g/dL (0.0-0.4); Alpha-2-Globulins 1.2 g/dL (0.4-1.0); Cytoplasmic Ab (C-ANCA) <1:20 titer (Neg:<1:20); Immunoglobulin A 405 mg/dL (64-422); Immunoglobulin E 132 IU/mL (6-495); Immunoglobulin G 995 mg/dL (586-1602); Immunoglobulin M 53 mg/dL (26-217); PROEL- TOTAL PROTEIN 7.5 g/dL (6.0-8.5); Perinuclear Ab (P-ANCA) <1:20 titer (Neg:<1:20)
== END | disposition home or self-care (01) ==
LOC: LAB 15:00
PROVIDERS: Internal Medicine Gastroenterology; PCP Family Medicine Geriatric Medicine; Visit Provider Family Medicine Geriatric Medicine
DX: E11.65 Type 2 diabetes mellitus with hyperglycemia (principal); I10 Essential (primary) hypertension; E55.9 Vitamin D deficiency, unspecified
CPT/HCPCS: 80053; 80061; 82306; 82784; 82785; 83036; 83516; 83615; 84165; 84443; 85025; 85652; 86140; 86225; 86235; 86255; 86256; 86334

== ENCOUNTER → 2022-11-29 | Outpatient (CLI) | payer MEDICARE, MEDICAID, SELFPAY ==
--- NOTE | 2022-11-29 13:48 | BI_ITS ---
MAMMOGRAPHY - BILATERAL DIAGNOSTIC REASON FOR EXAM: Female, 72 years old. Bilateral breast lumps at the 12:00 position of the breasts. PERTINENT HISTORY: Non-contributory. TECHNIQUE: Digital bilateral breast joana (3D mammographic acquisition) in the CC and MLO projections. 2-D mediolateral oblique (MLO) and craniocaudad (CC) views of both breasts were obtained. CAD: Full Field Digital Mammography with Computer Added Detection was performed. COMPARISON: Comparison is made with prior study of August 19, 2021 and May 05, 2015. FINDINGS: Breast Composition: There are scattered areas of fibroglandular density. There are no dominant masses or suspicious calcifications. No other significant abnormalities are identified. There has been no significant change since the prior study. BI/DIAG MAMM W/CAD, BILAT IMPRESSION: With the patient''s history of bilateral breast lumps, correlation with ultrasound is recommended. ASSESSMENT CATEGORY: BIRADS Category 0: Incomplete. Need additional imaging evaluation. A letter regarding these results will be sent to the patient by the facility within 30 days. Approximately 10% of breast cancers are not detected by mammography. A normal mammogram should not delay biopsy of a clinically suspicious abnormality. Electronically Signed: Tato Alexander MD at 15:01 EDT ,
--- NOTE | 2022-11-29 14:26 | US_ITS ---
STUDY: ULTRASOUND BREAST - RIGHT REASON FOR EXAM: Female, 72 years old. Bilateral breast lumps. TECHNIQUE: Axial and longitudinal images of the RIGHT breast were performed with a high resolution ultrasound transducer. # OF IMAGES: 33 COMPARISON: Comparison is made with prior mammogram done earlier today. FINDINGS: RIGHT Breast: The upper half of the right breast was examined with ultrasound. No sonographic abnormality is seen. IMPRESSION: No sonographic abnormality is seen. ASSESSMENT CATEGORY: BIRADS Category 1: Negative. A letter regarding these results will be sent to the patient by the facility within 30 days. Electronically Signed: Tato Alexander MD at 15:18 EDT , STUDY: ULTRASOUND BREAST - LEFT REASON FOR EXAM: Female, 72 years old. Bilateral breast lumps. TECHNIQUE: Axial and longitudinal images of the LEFT breast were performed with a high resolution ultrasound transducer. # OF IMAGES: 33 COMPARISON: Comparison is made with prior mammogram done earlier today. FINDINGS: LEFT Breast: The upper half of the breast was examined with ultrasound. No sonographic abnormality is seen. US/Breast Limited Unilateral IMPRESSION: Unremarkable sonogram. ASSESSMENT CATEGORY: BIRADS Category 1: Negative. A letter regarding these results will be sent to the patient by the facility within 30 days. Electronically Signed: Tato Alexander MD at 15:18 EDT ,
[2022-12-03 03:07] LABS: Pancreatic Elastase, Fecal 220 (>200)
[2022-12-05 16:09] LABS: Calprotectin, Stool 107 ug/g (0-120); Fats, Neutral Normal (.); Fats, Total Normal (.)
== END | disposition home or self-care (01) ==
PROVIDERS: Internal Medicine Gastroenterology; PCP Family Medicine Geriatric Medicine; Referring Provider Nurse Practitioner Women's Health; Visit Provider Nurse Practitioner Women's Health
DX: N64.4 Mastodynia (principal); R14.0 Abdominal distension (gaseous); K59.00 Constipation, unspecified; R11.0 Nausea; N63.10 Unspecified lump in the right breast, unspecified quadrant
CPT/HCPCS: 76642; 77062; 77066; 82653; 82705; 83630; 83993; G0279

== ENCOUNTER → 2022-12-20 | Outpatient (CLI) | payer MEDICARE, MEDICAID, SELFPAY | END | disposition home or self-care (01) | PROVIDERS: PCP Family Medicine Geriatric Medicine; Visit Provider Family Medicine Geriatric Medicine | DX: N39.0 Urinary tract infection, site not specified (principal) | CPT/HCPCS: 87077; 87086; 87088; 87186 ==

== ENCOUNTER → 2022-12-27 | Outpatient (CLI) | payer MEDICARE, MEDICAID, SELFPAY ==
--- NOTE | 2022-12-27 13:48 | RAD_ITS ---
EXAM: XR LUMBOSACRAL SPINE, 4 OR 5 VIEWS CLINICAL INDICATION: lumbar and buttock pain TECHNIQUE: Frontal, lateral and bilateral oblique views of the lumbar spine. COMPARISON: Pelvic radiograph of this date. Lumbar spine radiographs of 08/19/2021. FINDINGS: VERTEBRAE: Stable mild lumbar dextroscoliosis. No pars defect or spondylolisthesis. Extensive lumbar facet arthritis is present. SACRUM/COCCYX: The SI joints are unremarkable. DISC SPACES: Degenerative spurring again noted about the lower thoracic disc spaces. L5/S1 disc space shows stable mild degenerative narrowing with vacuum disc phenomenon. Stable moderate degenerative disc space narrowing with marginal osteophytes at L4/5. Slightly greater disc space narrowing at the L2/3 and L3/4 levels as compared to the prior study; there is increasing vacuum disc phenomenon at L3/4 and there are enlarging osteophytes and increasing endplate degenerative changes at L2/3. Stable degenerative narrowing with marginal osteophytes at L1/2. VASCULATURE: Abdominal aorta is calcific. GASTROINTESTINAL TRACT: Unremarkable as visualized. Included bowel gas pattern is non-obstructive. RAD/L/S Spine Min 4 Views IMPRESSION: No acute fracture or spondylolisthesis. Extensive lower thoracic and lumbar degenerative disc disease; the degenerative findings show mild interval worsening at the L2/3 and L3/4 levels as compared to the prior study of 08/24. Electronically Signed: Josh Israel MD at 2:03 EDT ,
--- NOTE | 2022-12-27 13:48 | RAD_ITS ---
EXAM: XR PELVIS, 1 OR 2 VIEWS CLINICAL INDICATION: lumbar and buttock pain TECHNIQUE: Frontal view of the pelvis. COMPARISON: Abdominal radiograph of 08/04/2022. FINDINGS: BONES/JOINTS: L4/5 disc space demonstrates degenerative narrowing with vacuum disc phenomenon and marginal osteophytes. Lumbar facet arthritis is present. Left-sided osteophytes noted about the L3/4 disc space. No displaced fracture. No destructive or sclerotic lesions. Note that overlapping bowel shadows may however obscure fine detail. Sacroiliac joints are unremarkable. No widening of the pubic symphysis. SOFT TISSUES: Vascular calcification noted within the pelvis including numerous calcified phleboliths. Surgical clips noted within the soft tissues of the proximal left thigh. No soft tissue swelling or gas. RAD/Pelvis 1 or 2 Views IMPRESSION: Lower lumbar degenerative changes. No acute abnormality. Electronically Signed: Josh Israel MD at 1:59 EDT ,
== END | disposition home or self-care (01) ==
PROVIDERS: PCP Family Medicine Geriatric Medicine; Referring Provider Surgery; Visit Provider Surgery
DX: M79.18 Myalgia, other site (principal); M54.50 Low back pain, unspecified; I70.90 Unspecified atherosclerosis; Z87.891 Personal history of nicotine dependence
CPT/HCPCS: 72110; 72170

== ENCOUNTER → 2023-01-04 | Outpatient (CLI) | payer MEDICARE, MEDICAID, SELFPAY ==
--- NOTE | 2023-01-04 11:26 | EKG12_ITS ---
Test Reason : CHEST PAIN Blood Pressure : / mmHG Vent. Rate : 061 BPM Atrial Rate : 061 BPM P-R Int : 124 ms QRS Dur : 074 ms QT Int : 448 ms P-R-T Axes : 027 050 050 degrees QTc Int : 450 ms Normal sinus rhythm RSR' or QR pattern in V1 suggests right ventricular conduction delay Borderline ECG Confirmed by LE MCMANUS, REX ([id number]), makeup editor AZ KIM ([id number]) on 01/05/2023 9:00:24 AM Referred By: Taras Green Confirmed By:ANNABEL LUJAN MD
== END | disposition home or self-care (01) ==
LOC: PSN 11:24
PROVIDERS: PCP Family Medicine Geriatric Medicine; Referring Provider Family Medicine Geriatric Medicine; Visit Provider Family Medicine Geriatric Medicine
DX: R07.9 Chest pain, unspecified (principal)
CPT/HCPCS: 93005

== ENCOUNTER → 2023-01-05 | Outpatient (CLI) | payer MEDICARE, MEDICAID, SELFPAY | END | disposition home or self-care (01) | LOC: POLAB3 15:29 | PROVIDERS: PCP Family Medicine Geriatric Medicine; Visit Provider Family Medicine Geriatric Medicine | DX: N39.0 Urinary tract infection, site not specified (principal) | CPT/HCPCS: 87077; 87086; 87088; 87186 ==

== ENCOUNTER → 2023-03-16 | Outpatient (CLI) | payer MEDICARE, MEDICAID, SELFPAY ==
--- NOTE | 2023-03-16 13:44 | CT_ITS ---
STUDY: CT MAXILLOFACIAL SINUSES REASON FOR EXAM: Female, 72 years old. CHRONIC SINUSITIS RADIATION DOSAGE (If Supplied By Facility): CTDIvol = ( 28.14 ) mGy, DLP = ( 711.01 ) mGycm TECHNIQUE: The patient was scanned in a multi detector CT scanner. High resolution axial imaging was performed without the administration of intravenous contrast material. Sagittal and coronal images were reconstructed. Individualized dose optimization techniques were used for this CT. COMPARISON: None. FINDINGS: FRONTAL SINUSES: Normal aeration, without mucosal inflammatory disease. ETHMOIDAL SINUSES: Minimal mucosal thickening involving the anterior aspect of the bilateral ethmoidal sinuses, remainder of the adenoid tonsils otherwise normal. MAXILLARY SINUSES: Normal aeration, without mucosal inflammatory disease involving the right maxillary sinus. There is complete opacification of the left x-ray sinus. SPHENOIDAL SINUSES: Normal aeration, without mucosal inflammatory disease. There is patency of the right maxillary infundibulum with normal uncinate processes, ethmoid bullae, and hiatus semilunaris. There is obliteration of the left maxillary infundibulum due to complete opacification of the left maxillary sinus. Normal bilateral middle turbinates. Normal bilateral inferior turbinates. There is deviation of the nasal septum with convexity to the left. There is patency of the bilateral nasal airways. The visualized osseous structures are normal. The visualized bilateral orbital contents are normal. CT/Sinus/Facial Bone IMPRESSION: Complete opacification of the left maxilla sinus consistent with sinusitis. Trace mucosal disease involving the anterior ethmoidal sinus. Remainder of the exam unremarkable. Electronically Signed: Dot Gotti MD at 22:13 EDT ,
== END | disposition home or self-care (01) ==
LOC: CT 13:43
PROVIDERS: PCP Family Medicine Geriatric Medicine; Referring Provider Otolaryngology; Visit Provider Otolaryngology
DX: J32.8 Other chronic sinusitis (principal)
CPT/HCPCS: 70486

== ENCOUNTER → 2023-03-21 | Outpatient (CLI) | payer MEDICARE, MEDICAID, SELFPAY ==
--- NOTE | 2023-03-21 09:55 | US_ITS ---
INDICATION: bilateral superolateral buttock painful masses EXAMINATION: Ultrasound of the buttocks TECHNIQUE: A dedicated ultrasound of the bilateral superior lateral buttocks. Cine images were provided as well COMPARISON: No relevant prior comparison study available TECHNIQUE: Routine and color duplex imaging with spectral analysis. FINDINGS: No discrete solid or cystic lesions are visualized. No subcutaneous edema is seen. IMPRESSION: No discrete mass identified. Electronically Signed: Kelly Wilson MD at 13:05 EDT , INDICATION: bilateral superolateral buttock painful masses EXAMINATION: Ultrasound of the buttocks TECHNIQUE: A dedicated ultrasound of the bilateral superior lateral buttocks. Cine images were provided as well COMPARISON: No relevant prior comparison study available TECHNIQUE: Routine and color duplex imaging with spectral analysis. FINDINGS: No discrete solid or cystic lesions are visualized. No subcutaneous edema is seen. US/Ext Non Vasc Limited/Soft Tiss IMPRESSION: No discrete mass identified. Electronically Signed: Kelly Wilson MD at 13:06 EDT ,
== END | disposition home or self-care (01) ==
LOC: US 09:54
PROVIDERS: PCP Family Medicine Geriatric Medicine; Referring Provider Nurse Practitioner Family; Visit Provider Nurse Practitioner Family
DX: M79.18 Myalgia, other site (principal); M54.50 Low back pain, unspecified; I70.90 Unspecified atherosclerosis; Z79.01 Long term (current) use of anticoagulants; Z87.891 Personal history of nicotine dependence
CPT/HCPCS: 76882

== ENCOUNTER → 2023-05-22 | Outpatient (CLI) | payer MEDICARE, MEDICAID, SELFPAY ==
--- NOTE | 2023-05-22 08:42 | ART_ITS ---
Reason For Study: Decreased pedal pulses Procedure A bilateral lower extremity continuous wave Doppler with analog waveform analysis,segmental pressures,and ankle brachial indexes without exercise. Left Segmental Pressures Left brachial= 163mmHg. Left posterior tibial artery = 177mmHg. Left dorsalis pedis artery = 159mmHg. Left digit = 143 mmHg. The left dorsalis pedis waveforms are biphasic. The left posterior tibial artery waveforms are triphasic. Right Segmental Pressures Right brachial= 157mmHg. Right posterior tibial artery = 148mmHg. Right dorsalis pedis artery = 169mmHg. Right digit = 135 mmHg. The right dorsalis pedis waveforms are triphasic. The right posterior tibial artery waveforms are biphasic. Indices The right ankle brachial index by the dorsalis pedis is 1.04. The right ankle brachial index by the posterior tibial artery is 0.91. The right digital-brachial index is 0.83. The left ankle brachial index by the dorsalis pedis is 0.98. The left ankle brachial index by the posterior tibial artery is 1.09. The left post exercise ankle brachial index is 0.88. VL/Lower Ext Art Exam w/o Exercis Interpretation Summary Right DAVID 1.04, normal. TBI and Doppler/PVR waveforms of the right leg normal a t rest. Left DAVID 1.09, normal. TBI and Doppler/PVR waveforms of the left leg normal at rest. Ordering Physician: Marely Taylor Referring Physician: Taras Green Chi Performed By: Jessica Roberts RVT
== END | disposition home or self-care (01) ==
LOC: CVS 08:37
PROVIDERS: PCP Family Medicine Geriatric Medicine; Referring Provider Physician Assistant Medical; Visit Provider Physician Assistant Medical
DX: R09.89 Other specified symptoms and signs involving the circulatory and respiratory systems (principal)
CPT/HCPCS: 93923

== ENCOUNTER → 2023-05-24 | Outpatient (CLI) | payer MEDICARE, MEDICAID, SELFPAY ==
--- NOTE | 2023-05-24 18:12 | STRESSREP ---
Stress Test Report Pharmacologic myocardial perfusion stress test. 72-year-old lady with a history of chest pain Resting EKG demonstrates sinus bradycardia with a rate of 61 bpm. Resting blood pressure is 158/72 mmHg. 0.4 mg of regadenoson was infused per usual protocol followed by rapid intravenous saline flush injection. Continuous EKG monitoring was performed. The maximum heart rate was 85 bpm which was 57% of max impacted heart rate the maximum workload was 1 metabolic equivalent. At rest there were no ST or T wave changes noted to suggest ischemia and at peak infusion nonspecific ST changes were noted which did not meet the criteria for ischemia. No clinical angina is noted. The final blood pressure was 132/70 mmHg. Myocardial perfusion protocol. 11.1 mCi of technetium 99m sestamibi was injected at rest. 0.4 mg of regadenoson was infused per usual protocol. At peak infusion 33.9 mCi of technetium 99m sestamibi was injected stress images were obtained stress and rest images were reconstructed and compared in the short axis vertical long and horizontal long axis. Gated images were also obtained. Perfusion SPECT analysis: Review of the stress images demonstrate normal uptake of tracer noted in all areas of the myocardium. The resting images similar demonstrated normal uptake of tracer noted in all areas of the myocardium. No areas of reversibility are noted to suggest ischemia and no previous infarct is noted. Gated SPECT analysis: The gated ejection fraction is 81%. Conclusion: Normal pharmacologic myocardial perfusion stress test. Preserved ejection fraction.
== END | disposition home or self-care (01) ==
PROVIDERS: PCP Family Medicine Geriatric Medicine; Referring Provider Orthopaedic Surgery; Visit Provider Orthopaedic Surgery
DX: G56.03 Carpal tunnel syndrome, bilateral upper limbs (principal); R07.9 Chest pain, unspecified
CPT/HCPCS: 78452; 93017; 95886; 95913; A9500; A4216; J2785

== ENCOUNTER → 2023-07-03 | Outpatient (CLI) | payer MEDICARE, MEDICAID, SELFPAY ==
--- NOTE | 2023-07-03 13:28 | CDU_ITS ---
Reason For Study: HIstory of CVA, Right CEA Rt. Velocities/BP Lt. Velocities/BP Prox CCA 27.3/8.8 cm/sec. Prox CCA 106/27 cm/sec. Mid CCA 40.8/11.6 cm/sec. Mid CCA 88.5/24.8 cm/sec. Dist CCA 33/8.8 cm/sec. Dist CCA 69.1/21.2 cm/sec. Prox ICA 130.2/35.8 cm/sec. Prox ICA 126.6/40.7 cm/sec. Mid ICA 67.9/16.3 cm/sec. Mid ICA 121.1/35.3 cm/sec. Dist ICA 70.4/17.6 cm/sec. Dist ICA 133.9/35.3 cm/sec. Rt. ICA/CCA = 3.95. Lt. ICA/CCA = 1.51. Prox ECA 67.4/7.8 cm/sec. Prox ECA 119.3/17 cm/sec. Rt. Vert. 54.4/12.6 cm/sec. Lt. Vert. 54.2/15.7 cm/sec. Right Extracranial There is homogeneous, smooth atherosclerotic plaque noted in the right common carotid artery. There is heterogeneous, irregular atherosclerotic plaque noted in the right internal carotid artery. There is heterogeneous, irregular atherosclerotic plaque noted in the right external carotid artery. Antegrade flow is noted in the right vertebral artery. Left Extracranial There is homogeneous, smooth atherosclerotic plaque noted in the left common carotid artery. There is heterogeneous, irregular atherosclerotic plaque noted in the left internal carotid artery. There is heterogeneous, irregular atherosclerotic plaque noted in the left external carotid artery. Antegrade flow is noted in the left vertebral artery. Procedure Carotid Duplex 73872. This is a Carotid Duplex examination using B-mode, color flow and specral Doppler. Exam performed in department. VL/Carotid Duplex Ultrasound Interpretation Summary Moderate (50-69%) stenosis right extracranial internal carotid. Moderate (50-69%) stenosis left extracranial internal carotid. Patent and antegrade vertebrals bilaterally. Ordering Physician: Marely Taylor Referring Physician: Taras Green Chi Performed By: Jessica Roberts RVT
== END | disposition home or self-care (01) ==
LOC: CVS 13:27
PROVIDERS: PCP Family Medicine Geriatric Medicine; Referring Provider Physician Assistant Medical; Visit Provider Physician Assistant Medical
DX: I70.90 Unspecified atherosclerosis (principal); Z86.73 Personal history of transient ischemic attack (TIA), and cerebral infarction without residual deficits; I10 Essential (primary) hypertension; E78.5 Hyperlipidemia, unspecified; R22.1 Localized swelling, mass and lump, neck
CPT/HCPCS: 93880

== ENCOUNTER → 2023-08-04 | Outpatient (CLI) | payer MEDICAID, MEDICARE, SELFPAY ==
--- NOTE | 2023-08-04 07:20 | EKG12_ITS ---
Test Reason : PREOP Blood Pressure : / mmHG Vent. Rate : 065 BPM Atrial Rate : 065 BPM P-R Int : 116 ms QRS Dur : 090 ms QT Int : 440 ms P-R-T Axes : 028 049 037 degrees QTc Int : 457 ms Normal sinus rhythm Normal ECG Confirmed by LE MCMANUS, REX ([id number]), editorial assistant ELISEO GAVIRIA ([id number]) on 08/07/2023 6:53:46 AM Referred By: Raj Camarena Confirmed By:ANNABEL LUJAN MD
[2023-08-04 07:42] LABS: Hemoglobin 12.2 g/dL (12.0-15.0); Mean Corp Hgb Conc 32.1 g/dL (32-36); Mean Corpuscular Hgb 28.8 pg (27.0-32.0); Mean Corpuscular Volume 89.8 fL (81-99); Mean Platelet Vol. 11.9 fl (6.2-12.0); Platelet Count 245 K/mm3 (150-450); RBC Distribution Width SD 45.9 fl (35.1-43.9); Red Blood Count 4.23 M/mm3 (4.2-5.4); White Blood Count 6.4 K/mm3 (4.4-11.0)
[2023-08-04 07:51] LABS: Anion Gap 2 (5-15); BUN 21 mg/dL (7-18); BUN/Creat Ratio 24.9 RATIO (10-20); Calcium,Total 9.3 mg/dL (8.5-10.1); Chloride 110 mmol/L (98-107); Creatinine, Serum 0.84 mg/dL (0.55-1.02); EST Glomerular Filtration Rate 70 mL/min (>60); Est Glom Filt Rate - Afr Amer 85 mL/min (>60); Glucose 108 mg/dL (74-106); Sodium Level 140 mmol/L (136-145)
== END | disposition home or self-care (01) ==
LOC: PSN 07:18
PROVIDERS: PCP Family Medicine; Referring Provider Otolaryngology; Visit Provider Otolaryngology
DX: Z01.810 Encounter for preprocedural cardiovascular examination (principal); Z01.812 Encounter for preprocedural laboratory examination
CPT/HCPCS: 36415; 80048; 85027; 93005

== ENCOUNTER → 2023-08-09 | Outpatient (CLI) | payer MEDICARE, MEDICAID, SELFPAY ==
--- NOTE | 2023-08-09 | ETH_PTH ---
PATHOLOGY RESULTS PATIENT: RISHABH HIGUERA LOC: [facility] U#:[id number] AGE/SX: 73/F ROOM: RE08/09/[address]: Dr. Deshawn Camarena MD : 1950 BED: DIS: 08/09/2023 SPEC #: [id number] RECD: 08/10/23 08:57 STATUS: DONOVAN V[place]LEGAS #: [id number] LYLA: 08/09/23 00:[address]: Deshawn Camarena DEPT: SURGICAL PATHOLOGY RECD BY: Rita Concepcion ENTERED: 08/10/23 08:58 SP TYPE: ETH TISS OTHR DR: Dr. Williams Starr, [facility] Tissues: Ethmoid sinus, NOS Ethmoid sinus, NOS Procedures: Decalcification bone/plaque Surgery Specimen Level III HEADER OPERATION: Functional endoscopic sinus surgery PRE-OP DIAGNOSIS: Chronic sinusitis TISSUE SUBMITTED: A - Right sinus contents, B - Left sinus contents MICROSCOPIC DIAGNOSIS A. Right sinus contents, curettings: Chronic sinusitis. Fragments of bone with no pathologic change. B. Left sinus contents, curettings: Chronic sinusitis. Fragments of bone with no pathologic change. AM:mylene 08/14/2023 MICROSCOPIC DESCRIPTION Slides are reviewed. GROSS DESCRIPTION A - Received in fixative is one container labeled with the patient's name and designated right sinus contents. The specimen consists of multiple irregular fragments of suarez soft tissue mixed with possible fragments of bone that in aggregate measure 1.0 x 1.0 x 0.2 cm. The specimen is totally submitted in one cassette after decalcification. B - Received in fixative is one container labeled with the patient's name and designated left sinus contents. The specimen consists of multiple irregular fragments of pink-suarez hemorrhagic soft tissue mixed with fragments of bone that in aggregate measure 2.0 x 2.5 x 0.2 cm. Also present in the container is a piece of mucosal tissue with underlying bone consistent with turbinate measuring 3.0 x 1.0 x 0.5 cm. The specimen is totally submitted in two cassettes after decalcification. / PRABHJOT:mylene 08/10/2023 TC:3 CPT: 72362 x2, 79563 x2
== END | disposition home or self-care (01) ==
PROVIDERS: PCP Family Medicine; Referring Provider Otolaryngology; Visit Provider Otolaryngology
DX: J32.9 Chronic sinusitis, unspecified (principal)
CPT/HCPCS: 88304; 88305; 88311

== ENCOUNTER 2023-10-31 14:10 | Day surgery (SDC) | payer MEDICARE, MEDICAID, SELFPAY ==
--- NOTE | 2023-10-31 | IMM_PTH ---
PATIENT: RISHABH HIGUERA LOC: EN U#:[id number] AGE/SX: 73/F ROOM: RE10/31/[address]: Dr. Philip Drummond DO : 1950 BED: DIS: 10/31/2023 SPEC #: [id number] RECD: 11/02/23 11:06 STATUS: DONOVAN REQ #: [id number] LYLA: 10/31/23 00:[address]: Philip Drummond DEPT: IMMUNOHISTOCHEMISTRY RECD BY: Song Nguyen ENTERED: 11/02/23 11:07 SP TYPE: IMMUNO OT DR: Mariza Jamil, HALL MONITOR-C Tissues: Esophagus, NOS Procedures: P53 (initial) KI-67 (add) PHYSICIAN & INSTITUTION [place] [id number] SPECIMEN INFORMATION: Tissue Source: Distal esophagus biopsy Clinical Info: Bloating, constipation, nausea Specimen Number: [id number] CPT code: 22807,88770 METHODOLOGY: Deparaffinized sections of prefer/formalin-fixed tissue or PAP/DQ stained slides are incubated with monoclonal/polyclonal antibodies/oligonucleotide probes. Localization is made via biotin free immunoperoxidase method. Appropriate controls are performed and reacted as expected. Results on target cell population are indicated in the following table: RESULTS: ANTIBODY / CLONE RESULT P53 (DO-7) negative, null pattern Ki-67 (30-9) positive, low These tests were developed and their performance characteristics determined by [facility]. They may not have been cleared or approved by the U.S. Food and Drug Administration. The FDA has determined that such clearance or approval is not necessary. The above immunohistochemical/dualISH markers are ordered and reviewed by the Pathologist. INTERPRETATION: Distal esophagus, biopsy: No evidence of dysplasia. SIVA/ 11/03/2023
[2023-10-31 14:38] VITALS: BP 166/82; PULSE 66; RESP 16; TEMP 36.5; O2SAT 97; BMI 34.8
[2023-10-31] MEDS: Lactated Ringers 1,000 ML 15 ML IV (14:45)
--- NOTE | 2023-10-31 14:50 | PCM.HP.BLA ---
History and Physical Date of Admission: 10/31/23 LAYLA HIGUERA, is a 73 F who presents to the office today for follow up. PMH includes hyperlipidemia; HTN; DM; CVA; NSTEMI; Ischemic stroke.? ? [facility] hospitalization .-02.19.21 for UTI, N/V, CP, bacteremia. [facility] hospitalization 02.23.21-03.03.21 for TEODORO. ? CT abd/pel 02.17.21?with low attenuation along falciform ligament consistent with focal fatty sparing; layering sludge of gallbladder, possibly tiny calculi; small hiatal hernia; colonic diverticulosis; stable wall thickening of sigmoid colon without fat inflammation; Renal abnormalities with multiple lesions, stable.? *[facility] established 03.11.21 following [facility] hospitalization without GI consultation. Pancreatitis ? biochemical workup. She was lost to follow up following this appointment.?Biochemical workup?CRP, CA19-9 not drawn.?MRCP?not performed.? [facility] ED presentation 11.06.21 with abdominal cramping with lack of BM. Enema administered in ED without result. Diverticulitis diagnosed?Cipro and Flagyl.?KUB?moderate gas and stool within colon.?CT abd/pel without contrast?noted minimal sludge in gallbladder; small hiatal hernia; fecal retention; diverticulosis with evidence of diverticulitis.? PCP f/u with continued N/V abdominal pain and lack of BM?Levaquin, flagyl, linzess 290mcg. Next day IM Rocephin and start lactulose. BM started again 11.15.21? OV 7.12.24 with N/V and bloating difficulty. Pancreatitis ? persistent secondary to alcohol. Upper GI symptoms suspected to be r/t constipation. BM is typically 1-3 times a day with normal/soft stooling; though she has difficulty with lower abdominal cramping without identifying trigger. Follow up and endoscopy delayed per Layla.? EGD and colonoscopy 07.12.22.?EGD LA Grade B reflux esophagitis; moderate Schatzki ring, Savary dilator 51F; small hiatal hernia; erythematous gastric body/antrum, gastritis; multiple non-bleeding duodenal ulcers. H.Pylori negative.? Colonoscopy two TA polyps; congested mucosa sigmoid, splenic flexure and ascending colon, no pathologic changes.? OV 10.13.22 feels nausea has improved; continues to have bloating with upper abdominal soreness and intermittent emesis. BM occurring 1-3 times a day with complete evacuation each time. ?Gastric emptying study 11.09.22?27.55 minutes (12-56)?Biochemical 11.15.22?CBC, ESR, CMP, LFT, CRP, LDH, cholesterol, triglycerides, Vit D25, TSH, GAME, ANCA, QUINCY comp, celiac without pertinent abnormality.? A1c H7.2, PIPPA alpha-2 globulin H1.2? Stool calprotectin, elastase, fat, lactoferrin, C.Difficile (formed) WNL? Contact 12.21.22 with bloating concern,?Start digestive enzymes? OV 03.30.23 Pt reports she continue to have daily bloating. Constant abdominal pain under ribs. Feels like a squeezing sensation. BM normal and consistent. OV. 09.29.23 Pt reports continued symptoms from last appointment. Pt reports she recently started having some trouble swallowing, she had sinus surgery in August to help with mucosal drainage, and has felt like her throat is swollen which is causing her to have some difficulty swallowing and choking on her saliva. ROS Const Constitutional: Positive for headache(s), weakness and weight change (weight gain); No fatigue or fever(s) ENT ENT: Positive for headache(s) and difficulty swallowing Cardio Cardiology: Positive for leg pain with exertion Gastro GI: Positive for abdominal pain, bloating, heartburn, difficulty swallowing, excessive flatus and nausea/dyspepsia; No belching, change in bowel habits, change in stool character, coffee ground emesis, constipation, cramping, diarrhea, feeling full early, incontinent of stools, Vomiting blood/hematemesis, Blood in stool, loose stools, Black,tarry stools, pain with swallowing, vomiting or other Musc Musculoskeletal: Positive for joint pain, back pain, muscle cramps, numbness, tingling, Arthritis, restless legs, leg pain at night and leg pain with exertion Skin Skin: No yellowing of the eye or itchy eyes Neuro Neurology: Positive for weakness, headache(s), numbness, tingling and restless legs Psych Psychiatric: Positive for anxiety, No depression and Positive for paranoia Endo Endocrine: Positive for weight change (weight gain); No fatigue Aller/Imm Allergy/Immunologic: No itchy eyes Catarino/Lymp Hematologic/Lymphatic: No easy bleeding or easy bruising Exam Const General: cooperative and healthy appearing HENMT Head: normal to inspection Ears: hearing grossly normal bilaterally, TM's normal bilaterally and EAC's normal Nose: nasal discharge purulent Face and sinus: sinus tenderness frontal and maxillary Mouth: oral mucosae normal Throat: abnormal tonsil bilaterally erythema and hypertrophy 1+ and postnasal drainage Resp Effort & Inspection: normal respiratory effort Auscultation: Bilateral: Clear to Auscultation Cardio Palpation: normal PMI Rate: regular rate Rhythm: regular rhythm GI Auscultation: normal bowel sounds Palpation: soft and no hepatosplenomegaly General: bimanual renal exam normal bilaterally and No CVA tenderness Neuro General: patient alert and CN's II-XI intact bilaterally Psych Appearance: disheveled Affect: blunted Assessment and Plan Assessment and Plan (1) Bloating: Status: Chronic Comment: Patient Plan: We will get her a specific bowel regimen to hopefully allow her to evacuate completely on a daily basis. I believe a lot of her issues are secondary patient being chronically constipated. We will also give her doxycycline 100 mg p.o. twice daily and budesonide 6 mg a day. (2) Constipation: Status: Chronic Qualifiers: Constipation type: slow transit constipation Qualified Code(s): K59.01 - Slow transit constipation (3) Nausea: Status: Acute Plan: On her upper endoscopy she was discovered to have bile induced gastritis along with bile induced esophagitis causing esophageal ring. She did not undergo dilation during the procedure. I suspect that she has elements of gastroparesis due to her long history of diabetes mellitus. We will get a gastric emptying study for further evaluation we will have her take omeprazole 40 mg p.o. twice daily (4) Pancreatitis: Status: Inactive Plan: Acute recurrent secondary to alcohol. We will get an MRCP to see if she has any signs of chronic pancreatitis and present remainder of pancreatitis or biliary stricture. He already has a cystic structure secondary to cirrhosis. However we will also check. Coding Level of Care Code Off vis,est,level 4 Diagnoses Bloating R14.0 Slow transit constipation K59.01 Constipation type: slow transit constipation Nausea R11.0 Pancreatitis K85.90 I have examined the patient and the H&P has been reviewed. There are no clinical changes since date of exam.
[2023-10-31 15:07] LABS: Bedside Glucose 157 mg/dL (74-106)
--- NOTE | 2023-10-31 15:30 | EGD_PTH ---
PATIENT: RISHABH HIGUERA LOC: EN U#:[id number] AGE/SX: 73/F ROOM: RE10/31/[address]: Dr. Philip Drummond DO : 1950 BED: DIS: 10/31/2023 SPEC #: [id number] RECD: 10/31/23 18:35 STATUS: DONOVAN REVinnie #: [id number] LYLA: 10/31/23 15:[address]: Philip Drummond DEPT: SURGICAL PATHOLOGY RECD BY: Ene Choi ENTERED: 11/01/23 09:24 SP TYPE: EGD BIOPSY OT DR: Mariza Jamil, SHADE MATCHER-C Tissues: Esophagus, NOS Procedures: Special Stain Group I Surgery Specimen Level IV Alcian Blue/PAS (control) HEADER OPERATION: EGD biopsy PRE-OP DIAGNOSIS: Bloating, constipation, nausea TISSUE SUBMITTED: Distal esophagus biopsy MICROSCOPIC DIAGNOSIS Distal esophagus, biopsy: Gastroesophageal junctional mucosa with mild chronic inflammation. 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 See comment. / 11/02/2023 COMMENT Alcian blue/PAS stain with matched control supports the above diagnosis. Immunohistochemistry ([id number]) for P53 and Ki-67 will be performed and results will be reported separately. MICROSCOPIC DESCRIPTION Slides are reviewed. GROSS DESCRIPTION Received in fixative is one container labeled with the patient's name and designated Distal esophagus biopsy. The specimen consists of multiple irregular fragments of light suarez soft tissue that in aggregate measure 1.0 x 0.6 x 0.1 cm. The specimen is totally submitted in one cassette. / 11/01/2023 TC:3 CPT:53513,58087
--- NOTE | 2023-10-31 16:14 | OP.CCLET_ITS ---
10/31/2023 Williams Starr [address] [facility] [place] [place] [address] Re : Upper GI endoscopy procedure for Layla Stark Dear Dr. Starr This procedure was performed on Tuesday, October 31, 2023. My impressions and recommendations are as follows: Impressions : - LA Grade B reflux esophagitis with no bleeding. Biopsied. - Normal stomach. - Small hiatal hernia. - No gross lesions in the first portion of the duodenum. Recommendations : - Discharge patient to home. - Resume previous diet. - Continue present medications. - Await pathology results. -Repeat gastric emptying study and get a HIDA scan to look for duodenal gastric reflux My findings are described in the full procedure note, which is enclosed. If I can be of further assistance, please feel free to contact me at . Sincerely, Philip Drummond, 10/31/2023 4:14:12 PM This report has been signed electronically.
--- NOTE | 2023-10-31 16:14 | OP.EGD_ITS ---
Patient Name: Layla Stark Procedure Date: 10/31/2023 3:55 PM Date of : 1950 Age: 73 Procedure: Upper GI endoscopy Indications: Epigastric abdominal pain Providers: Philip Drummond DO Referring MD: Philip Drummond DO Medicines: Monitored Anesthesia Care Patient Profile: This is a 73 year old female. Refer to note in patient chart for documentation of history and physical. Patient has symptoms of chronic epigastric abdominal pain. Complications: No immediate complications. Procedure: Pre-Anesthesia Assessment: - Prior to the procedure, a History and Physical was performed, and patient medications and allergies were reviewed. The risks and benefits of the procedure and the sedation options and risks were discussed with the patient. All questions were answered and informed consent was obtained. Patient identification and proposed procedure were verified by the physician. Mental Status Examination: normal. Respiratory Examination: clear to auscultation. Prophylactic Antibiotics: The patient does not require prophylactic antibiotics. Prior Anticoagulants: The patient has taken no anticoagulant or antiplatelet agents. After reviewing the risks and benefits, the patient was deemed in satisfactory condition to undergo the procedure. The anesthesia plan was to use monitored anesthesia care (MAC). Immediately prior to administration of medications, the patient was re-assessed for adequacy to receive sedatives. The heart rate, respiratory rate, oxygen saturations, blood pressure, adequacy of pulmonary ventilation, and response to care were monitored throughout the procedure. The physical status of the patient was re-assessed after the procedure. After obtaining informed consent, the endoscope was passed under direct vision. Throughout the procedure, the patient's blood pressure, pulse, and oxygen saturations were monitored continuously. The gastroscope was introduced through the mouth, and advanced to the second part of duodenum. The upper GI endoscopy was accomplished without difficulty. The patient tolerated the procedure well. Scope In: 4:07:15 PM Scope Out: 4:09:44 PM Total Procedure Duration Time 0 hours 2 minutes 29 seconds Findings: LA Grade B (one or more mucosal breaks greater than 5 mm, not extending between the tops of two mucosal folds) esophagitis with no bleeding was found 38 to 41 cm from the incisors. Biopsies were taken with a cold forceps for histology. Verification of patient identification for the specimen was done. Estimated blood loss was minimal. The entire examined stomach was normal. A small hiatal hernia was present. No gross lesions were noted in the first portion of the duodenum. Impression: - LA Grade B reflux esophagitis with no bleeding. Biopsied. - Normal stomach. - Small hiatal hernia. - No gross lesions in the first portion of the duodenum. Recommendation: - Discharge patient to home. - Resume previous diet. - Continue present medications. - Await pathology results. -Repeat gastric emptying study and get a HIDA scan to look for duodenal gastric reflux Procedure Code(s): --- Professional --- 48536, Esophagogastroduodenoscopy, flexible, transoral; with biopsy, single or multiple CPT copyright 2021 [employer]. All rights reserved. The codes documented in this report are preliminary and upon finance intern review may be revised to meet current compliance requirements. Philip Drummond DO 10/31/2023 4:14:12 PM This report has been signed electronically. Number of Addenda: 0 Note Initiated On: 10/31/2023 3:55 PM
[2023-10-31 16:15] VITALS: BP 150/79; BP 166/82; PULSE 80; RESP 16; TEMP 36.3; O2SAT 97
[2023-10-31 16:20] VITALS: BP 162/82; BP 166/82; PULSE 71; RESP 18; O2SAT 97
[2023-10-31 16:25] VITALS: BP 158/80; BP 166/82; PULSE 81; RESP 18; TEMP 36.1; O2SAT 98
[2023-10-31 16:46] LABS: Bedside Glucose 143 mg/dL (74-106)
[2023-10-31 16:50] VITALS: BP 166/82
== END 2023-10-31 16:55 | disposition home or self-care (01) ==
LOC: EN 14:13 → AC 14:14
PROVIDERS: PCP Nurse Practitioner Family; Referring Provider Nurse Practitioner Family; Visit Provider Internal Medicine Gastroenterology
PROC: 0DJ08ZZ Inspection of Upper Intestinal Tract, Via Natural or Artificial Opening Endoscopic (ICD-10-PCS; CPT 43235; principal; 2023-10-31 15:25)
DX: K22.70 Barrett's esophagus without dysplasia (principal); E11.9 Type 2 diabetes mellitus without complications; Z79.4 Long term (current) use of insulin; K44.9 Diaphragmatic hernia without obstruction or gangrene; K21.00 Gastro-esophageal reflux disease with esophagitis, without bleeding; I10 Essential (primary) hypertension; E78.00 Pure hypercholesterolemia, unspecified; K59.01 Slow transit constipation; K85.90 Acute pancreatitis without necrosis or infection, unspecified; Z79.899 Other long term (current) drug therapy; Z79.82 Long term (current) use of aspirin; Z79.01 Long term (current) use of anticoagulants; I25.10 Atherosclerotic heart disease of native coronary artery without angina pectoris
CPT/HCPCS: 43239; 82962; 88305; 88312; 88341; 88342; J2405

== ENCOUNTER → 2023-12-01 | Outpatient (CLI) | payer MEDICARE, MEDICAID, SELFPAY ==
--- NOTE | 2023-12-01 14:26 | BI_ITS ---
MAMMOGRAPHY - BILATERAL SCREENING 3-D TOMOSYNTHESIS REASON FOR EXAM: Female, 73 years old. SCREENING PERTINENT HISTORY: No significant family history. TECHNIQUE: 2-D mammograms and 3-D Tomosynthesis of the breast (s) were performed. CAD was performed. COMPARISON: 08/19/2021 FINDINGS: The breast composition is composed of scattered fibroglandular density. Scattered benign calcifications are seen. No dense spiculated masses or suspicious microcalcifications are identified. No architectural distortion is identified. There is no skin thickening or retraction. There has been no significant change since the prior study. BI/SCRN MAMM (CAD)W/DAVE BILAT IMPRESSION: No mammographic signs of malignancy. Routine yearly mammograms recommended. ASSESSMENT CATEGORY: BIRADS Category 1: Negative. A letter regarding these results will be sent to the patient by the facility within 30 days. FOLLOW UP RECOMMENDATION: Yearly follow up mammogram recommended. (A) Approximately 10% of breast cancers are not detected by mammography. A normal mammogram should not delay biopsy of a clinically suspicious abnormality. Electronically Signed: Rogelio Pablo MD at 16:14 EDT ,
== END | disposition home or self-care (01) ==
LOC: OPBI 14:25
PROVIDERS: PCP Nurse Practitioner Family; Referring Provider Nurse Practitioner Family; Visit Provider Nurse Practitioner Family
DX: Z12.31 Encounter for screening mammogram for malignant neoplasm of breast (principal)
CPT/HCPCS: 77063; 77067

== ENCOUNTER → 2023-12-12 | Outpatient (CLI) | payer MEDICARE, MEDICAID, SELFPAY ==
--- NOTE | 2023-12-12 09:28 | NM_ITS ---
CLINICAL: 73-year-old female with history of epigastric pain. RADIONUCLIDE HEPATOBILIARY SCINTIGRAPHY COMPARISON: None available FINDINGS: Following the intravenous administration of 5.6 mCi of 99m Tc Mebrofenin, hepatobiliary images reveal: 1. Relatively prompt and homogeneous radiopharmaceutical concentration is noted by a normal sized liver. No parenchymal defects are identified. 2. Gallbladder activity is identified at 30 minutes post radiopharmaceutical administration. 3. Small intestinal tract is observed at 45 minutes following tracer provision. 4. Washout of the radiopharmaceutical by the hepatic parenchyma appears qualitatively normal. Cholecystokinin (0.02 ug/kg) was administered intravenously over a 30-minute period. The post CCK gallbladder ejection fraction calculated at 20 minutes following Cholecystokinin administration was noted to be 59.0 % (normal greater than 35%). During 30 minutes of post CCK imaging, there is no scintigraphic evidence of reflux of the radiotracer into the common hepatic duct or refilling of the gallbladder. NM/Hepatobilliary Img w/Pharm Int IMPRESSION: 1. NORMAL 99m Tc Mebrofenin hepatobiliary imaging examination with Cholecystokinin. A. A gallbladder ejection fraction calculated to be greater than 35% following the administration of Cholecystokinin makes the probability of functional hepatobiliary disease (gallbladder and/or sphincter of Oddi dyskinesia) and/or organic hepatobiliary disease (chronic acalculous cholecystitis and/or cystic duct syndrome) to be low. (Ila Whitney et al, Journal of Nuclear Medicine 32:1695, 1991). Electronically Signed: Rogelio Lopez DO at 22:07 EDT ,
== END | disposition home or self-care (01) ==
LOC: NM 09:12
PROVIDERS: PCP Nurse Practitioner Family; Referring Provider Internal Medicine Gastroenterology; Visit Provider Internal Medicine Gastroenterology
DX: R10.13 Epigastric pain (principal)
CPT/HCPCS: 78227; A9537; J2805

== ENCOUNTER → 2023-12-21 | Outpatient (CLI) | payer MEDICARE, MEDICAID, SELFPAY | END | disposition home or self-care (01) | LOC: LABSPEC 17:15 | PROVIDERS: PCP Nurse Practitioner Family; Visit Provider Otolaryngology | DX: J32.9 Chronic sinusitis, unspecified (principal) | CPT/HCPCS: 87070; 87077; 87186; 87205 ==

== ENCOUNTER → 2024-01-05 | Outpatient (CLI) | payer MEDICARE, MEDICAID, SELFPAY ==
[2024-01-05 12:20] LABS: Absolute Neutrophil Count 2.8 X10^3/uL (2.0-7.7); Basophil# 0.07 X10^3/uL; Basophil% 1.1 % (0-1); Eosinophil# 0.19 X10^3/uL; Hematocrit 39.2 % (37-47); Hemoglobin 12.1 g/dL (12.0-15.0); Lymphocyte % 42.9 % (19-41); Mean Corp Hgb Conc 30.9 g/dL (32-36); Mean Corpuscular Hgb 27.4 pg (27.0-32.0); Mean Corpuscular Volume 88.9 fL (81-99); Monocyte# 0.52 X10^3/uL; Monocyte% 8.3 % (0-10); NRBC Flagged by Analyzer 0 % (0-5); Neutrophil # 2.81 X10^3/uL (2.7-7.7); Neutrophil % 44.5 % (47-70); Platelet Count 253 K/mm3 (150-450); RBC Distribution Width CV 13.8 % (11.6-14.6); RBC Distribution Width SD 45.1 fl (35.1-43.9); Red Blood Count 4.41 M/mm3 (4.2-5.4); White Blood Count 6.3 K/mm3 (4.4-11.0)
[2024-01-05 12:46] LABS: Vitamin B12 1214 pg/mL (211-911); Vitamin D,25 Hydroxy 37.7 ng/mL
[2024-01-05 12:53] LABS: ALB/GLOB Ratio 0.8 RATIO (0.9-2.4); AST(SGOT) 13 U/L (15-37); Alanine Aminotransfer ALT/SGPT 18 U/L (13-56); Albumin, Serum 3.4 g/dL (3.2-5.0); Alkaline Phosphatase 84 U/L (45-117); Anion Gap 6 (5-15); BUN 22 mg/dL (7-18); BUN/Creat Ratio 25.2 RATIO (10-20); Calcium,Total 8.9 mg/dL (8.5-10.1); Chloride 105 mmol/L (98-107); Cholesterol 269 mg/dL (200); Creatinine, Serum 0.87 mg/dL (0.55-1.02); EST Glomerular Filtration Rate 67 mL/min (>60); Est Glom Filt Rate - Afr Amer 82 mL/min (>60); Ferritin 41 ng/mL (8-252); Globulin 4.1 g/dL (2.2-4.2); Glucose 130 mg/dL (74-106); High Density Lipoprotein 42 mg/dL; Iron 56 ug/dL (50-170); Potassium 4.2 mmol/L (3.5-5.1); Protein, Total 7.5 g/dL (6.4-8.2); Sodium Level 138 mmol/L (136-145); T4 Free Direct 0.92 ng/dL (0.76-1.46); Thyroid Stim Hormone (TSH) 2.66 uIU/mL (0.358-3.74); Triglycerides 149 mg/dL; Very Low Density Lipoprotein 30 mg/dL (5-40)
== END | disposition home or self-care (01) ==
PROVIDERS: PCP Nurse Practitioner Family; Referring Provider Nurse Practitioner Family; Visit Provider Nurse Practitioner Family
DX: I10 Essential (primary) hypertension (principal); E11.9 Type 2 diabetes mellitus without complications; E78.5 Hyperlipidemia, unspecified; E61.1 Iron deficiency; E03.9 Hypothyroidism, unspecified; E53.8 Deficiency of other specified B group vitamins
CPT/HCPCS: 36415; 80053; 80061; 82306; 82607; 82728; 83540; 84439; 84443; 85025

== ENCOUNTER → 2024-03-05 | Outpatient (CLI) | payer MEDICARE, SELFPAY ==
[2024-03-05 17:57] LABS: Absolute Lymphocyte Count 2.62 X10^3/uL (0.83-4.51); Absolute Neutrophil Count 3.1 X10^3/uL (2.0-7.7); Basophil# 0.06 X10^3/uL; Basophil% 0.9 % (0-1); Eosinophil# 0.19 X10^3/uL; Eosinophils% 2.9 % (0-5); Hematocrit 37.4 % (37-47); Hemoglobin 11.9 g/dL (12.0-15.0); Lymphocyte # 2.62 X10^3/ul (0.83-4.51); Lymphocyte % 40.2 % (19-41); Mean Corp Hgb Conc 31.8 g/dL (32-36); Mean Corpuscular Hgb 28.1 pg (27.0-32.0); Mean Corpuscular Volume 88.4 fL (81-99); Mean Platelet Vol. 11.9 fl (6.2-12.0); Monocyte# 0.55 X10^3/uL; Monocyte% 8.4 % (0-10); NRBC Flagged by Analyzer 0 % (0-5); Neutrophil # 3.09 X10^3/uL (2.7-7.7); Neutrophil % 47.4 % (47-70); Platelet Count 258 K/mm3 (150-450); RBC Distribution Width CV 13.9 % (11.6-14.6); Red Blood Count 4.23 M/mm3 (4.2-5.4); White Blood Count 6.5 K/mm3 (4.4-11.0)
[2024-03-05 18:16] LABS: ALB/GLOB Ratio 0.8 RATIO (0.9-2.4); AST(SGOT) 8 U/L (15-37); Alanine Aminotransfer ALT/SGPT 20 U/L (13-56); Albumin, Serum 3.3 g/dL (3.2-5.0); Alkaline Phosphatase 81 U/L (45-117); Anion Gap 6 (5-15); BUN 19 mg/dL (7-18); BUN/Creat Ratio 21.8 RATIO (10-20); CRP < 2.90 mg/L (0.0-3.0); Calcium,Total 9.2 mg/dL (8.5-10.1); Chloride 104 mmol/L (98-107); Creatinine, Serum 0.87 mg/dL (0.55-1.02); EST Glomerular Filtration Rate 67 mL/min (>60); Est Glom Filt Rate - Afr Amer 82 mL/min (>60); Glucose 170 mg/dL (74-106); Protein, Total 7.3 g/dL (6.4-8.2); Rheumatoid Factor < 10.0 IU/mL (<15); Sodium Level 136 mmol/L (136-145)
[2024-03-05 18:31] LABS: Erythrocyte Sedimentation Rate 38 mm/hr (0-30)
[2024-03-05 22:54] LABS: BNP,B-Type NATRIURETIC PEPTIDE < 2.0 pg/mL (0-100)
[2024-03-07 12:10] LABS: CCP IgG Antibodies 5 units (0-19)
[2024-03-07 13:09] LABS: ANTINUCLEAR ANTIBODIES DIRECT Negative (Negative)
== END | disposition home or self-care (01) ==
PROVIDERS: PCP Nurse Practitioner Family; Referring Provider Nurse Practitioner Family; Visit Provider Nurse Practitioner Family
DX: R06.02 Shortness of breath (principal); M25.50 Pain in unspecified joint; I10 Essential (primary) hypertension
CPT/HCPCS: 36415; 80053; 83880; 85025; 85379; 85652; 86038; 86140; 86200; 86431

== ENCOUNTER → 2024-03-19 | Outpatient (CLI) | payer MEDICARE, SELFPAY ==
--- NOTE | 2024-03-19 13:20 | RAD_ITS ---
EXAM: XR LUMBOSACRAL SPINE, 4 OR 5 VIEWS CLINICAL INDICATION: ASSESS VERTEBRAL ALIGNMENT AND DISC SPACE TECHNIQUE: Frontal, lateral and bilateral oblique views of the lumbar spine. COMPARISON: Chest radiograph, 03/19/2024 and lumbar spine radiographs, 12/27/2022. FINDINGS: VERTEBRAE: Maintained lumbar lordosis. Multilevel facet arthrosis and endplate osteophytosis. Approximately 26 degrees apex right lumbar curvature centered at L3. No discrete evidence of an acute fracture or spondylolisthesis. SACRUM/COCCYX: SI joint arthrosis. OTHER BONES/JOINTS: Median sternotomy partially visualized. DISC SPACES: Multilevel intervertebral disc height loss. VASCULATURE: Atherosclerosis. GASTROINTESTINAL TRACT: Bowel gas pattern appears normal. Included bowel gas pattern is non-obstructive. RAD/L/S Spine Min 4 Views IMPRESSION: 1. No discrete evidence of an acute fracture or spondylolisthesis. Multilevel degenerative change. 2. Approximately 26 degrees apex right lumbar curvature centered at L3. Electronically Signed: Jim Clifford DO at 21:27 EDT ,
--- NOTE | 2024-03-19 13:20 | RAD_ITS ---
EXAM: XR CHEST, 2 VIEWS CLINICAL INDICATION: ASSESS LUNGS FOR ABNORMALITIES TECHNIQUE: Frontal and lateral views of the chest. COMPARISON: 02/23/2021 FINDINGS: LUNGS AND PLEURAL SPACES: Hyperinflated lungs perhaps secondary to COPD without evidence of focal pneumonia or effusion. No pneumothorax. HEART: Status post CABG. No cardiomegaly. MEDIASTINUM: Central airways and mediastinal contour are unremarkable. BONES/JOINTS: Median sternotomy. Degenerative changes in the spine and shoulders. No acute fracture. SOFT TISSUES: No significant abnormality. VASCULATURE: Atherosclerosis. RAD/Chest PA and Lateral IMPRESSION: 1. Hyperinflated lungs perhaps secondary to COPD without evidence of focal pneumonia or effusion. 2. Status post CABG. No cardiomegaly. Electronically Signed: Jim Clifford DO at 21:40 EDT ,
== END | disposition home or self-care (01) ==
PROVIDERS: PCP Nurse Practitioner Family; Referring Provider Nurse Practitioner Family; Visit Provider Nurse Practitioner Family
DX: R06.02 Shortness of breath (principal); M54.50 Low back pain, unspecified
CPT/HCPCS: 71046; 72110

== ENCOUNTER → 2024-05-27 | Outpatient (CLI) | payer MEDICARE, SELFPAY ==
[2024-05-29 07:06] LABS: Thyroid Peroxidase AB 13 IU/mL (0-34)
== END | disposition home or self-care (01) ==
PROVIDERS: PCP Nurse Practitioner Family; Referring Provider Nurse Practitioner Family; Visit Provider Nurse Practitioner Family
DX: R53.83 Other fatigue (principal)
CPT/HCPCS: 36415; 86376

== ENCOUNTER → 2024-06-11 | Outpatient (CLI) | payer MEDICARE, SELFPAY ==
--- NOTE | 2024-06-11 14:28 | BD_ITS ---
STUDY: DUAL ENERGY X-RAY ABSORPTIOMETRY / DXA REASON FOR EXAM: Female, 74 years old. Screening TECHNIQUE: Bone Mineral Density (BMD) measurements of lumbar spine and bilateral hips were obtained. COMPARISON: Comparison is made with prior study dated October 11, 2012. FINDINGS: Lumbar Spine (L1-L4): g/cm2 (1.015) / T-score (-0.3) / Z-score (2.1) Findings are suggestive of normal bone density with a low fracture risk. Left Femur Total: g/cm2 (0.757) / T-score (-1.5) / Z-score (0.3) Left Femoral Neck: g/cm2 (0.418) / T-score (-3.9) / Z-score (-1.8) Right Femur Total: g/cm2 (0.725) / T-score (-1.8) / Z-score (0.0) Right Femoral Neck: g/cm2 (0.523) / T-score (-2.9) / Z-score (-0.9) The T-Scores on the most recent prior examination were: Lumbar Spine (L1-L4): There has been improvement of bone density since the previous examination. Left Femur Total: which represents a worsening of 9.1%. Right Femur Total: which represents a worsening of 10.2%. BD/Dexa Bone Density Study IMPRESSION: The patient is considered osteoporotic as outlined below according to World Cameron Organization (WHO) criteria with a high fracture risk. There has been worsening of bone density since the previous examination. Reference Information: The T-score is the number of standard deviations above or below the standard which is normal for young adults at their peak bone mineral density. The World Health Organization (WHO) interprets the T-scores as follows: Above -1 Normal bone density Between -1 and -2.5 Osteopenia Equal to / or below -2.5 Osteoporosis As a practical clinical guideline, osteopenia may be graded as follows: Mild -1 through -1.5 Moderate -1.6 through -2.0 Severe -2.1 through -2.4 The Z-score is the number of standard deviations above or below age-matched controls. A Z-score of less than -1.5 would be considered abnormal. References: 1. NIH Osteoporosis and Related Bone Diseases www osteo.org 2. International Society for Clinical Densitometry www iscd.org 3. National Osteoporosis Foundation www nof.org Electronically Signed: Tato Alexander MD at 9:25 EST ,
== END | disposition home or self-care (01) ==
PROVIDERS: PCP Nurse Practitioner Family; Referring Provider Nurse Practitioner Family; Visit Provider Nurse Practitioner Family
DX: Z13.820 Encounter for screening for osteoporosis (principal); M81.0 Age-related osteoporosis without current pathological fracture
CPT/HCPCS: 77080

== ENCOUNTER → 2024-08-09 | Day surgery (SDC) | payer MEDICARE, SELFPAY ==
[2024-08-09] MEDS: Lidocaine Jelly 2% 20 ML Syringe (URO-JET) 1 APPLIC (13:50)
[2024-08-09 13:51] VITALS: BP 154/72; PULSE 74; RESP 18; O2SAT 98
--- NOTE | 2024-08-09 14:00 | HP.PCM_ITS ---
HPI - General General Date of Admission: 08/09/24 Date of Service: 08/09/24 Chief Complaint: Esophageal dysphagia HPI Narrative RISHABH HIGUERA, is a 74 F who presents today for esophageal manometry due to worsening esophageal dysphagia and intermittent chest pain. [facility] Medical History Cardiac murmur Current use of longterm anticoagulation Arterial vascular disease Bilateral buttock pain Lumbar back pain Wears glasses Cancer Insulin dependent diabetes mellitus Arthritis Walker as ambulation aid Ambulates with cane Bladder disease High cholesterol Back pain Seizures History of hiatal hernia History of diverticulitis Gastric reflux History of heart attack History of irregular heartbeat Cardiology follow-up encounter History of echocardiogram History of stress test Dehydration Fecal impaction of colon Abdominal pain Nausea and vomiting Coronary atherosclerosis Ischemic stroke GERD (gastroesophageal reflux disease) Pancreatitis Chronic pain Former smoker Sternum pain History of CVA (cerebrovascular accident) (09/2014) Atherosclerosis of coronary artery of [place] heart without angina pectoris History of non-ST elevation myocardial infarction (NSTEMI) (06/2018) Essential (primary) hypertension Overactive bladder Anxiety Tobacco abuse Diabetes Hyperlipidemia Home Medications ?Medication ?Instructions ?Recorded ?Last Taken ?Type aspirin 81 mg tablet,delayed 81 mg PO DAILY@0800 [facility] 06/14/18 2 Days Ago History release ~02/21/21 insulin glargine 100 unit/mL (3 50 unit subcut QHS 03/26 Unknown History mL) subcutaneous pen (Lantus Solostar U-100 Insulin) citalopram 10 mg tablet (Celexa) 20 mg PO DAILY Unknown History insulin aspart U-100 100 unit/mL 17 unit subcut TID Unknown History (3 mL) subcutaneous pen (Novolog FlexPen U-100 Insulin aspart) calcium carbonate-vit A and D 1 tab PO DAILY 01/31/22 Unknown History tablet famotidine 40 mg tablet 40 mg PO DAILY 07/27/22 Unkn own History omeprazole 40 mg capsule,delayed 40 mg PO DAILY #90 ca ps 10/13/22 Unknown Rx release nitroglycerin 0.4 mg sublingual 0.4 mg sublingual Q5-1 5M PRN chest 04/12/23 Unknown Rx tablet (Nitrostat) pain #25 tabs docusate sodium 100 mg capsule 100 mg PO PRN PRN const ipation 06/16/23 Unknown History levocetirizine 5 mg tablet 5 mg PO DAILY 06/16/23 Unkn own History calcium 500 mg tablet 500 mg PO BID 10/17/23 Unkno wn History tiotropium 2.5 mcg-olodaterol 2.5 2 puff inhalation DA ROMANA 10/25/23 Unknown History mcg/actuation mist for inhalation (Stiolto Respimat) ferrous fumarate 325 mg (106 mg 325 mg PO QDAY 4 Unknown History iron) tablet cholecalciferol (vitamin D3) 50 50 mcg PO QDAY 4 Unknown History mcg (2,000 unit) capsule ezetimibe 10 mg tablet (Zetia) 10 mg PO QDAY #30 tabs 04/23/24 Unknown Rx amlodipine 10 mg tablet See Rx Instructions .Route 0 07/19/24 Unknown Rx .COMPLEX #28 tabs lisinopril 5 mg tablet 5 mg PO DAILY #30 tabs 08/08 Unknown Rx Allergy/AdvReac Type Severity Reaction Status Date / Time codeine Allergy Other Verified 05/14/24 15:24 Penicillins Allergy Swelling Verified 05/14/24 15:24 Sulfa (Sulfonamide Allergy Swelling Verified 05/14/24 15:24 Antibiotics) diphenhydramine (From AdvReac Intermediate Other Verified 05/14/24 15:24 Benadryl) acetaminophen (From Tylenol) AdvReac NEEDS Verified 05/14/24 15:24 FOLLOW-UP metoclopramide (From Reglan) AdvReac Other Verified 05/14/24 15:24 Surgical History Hx of endoscopy Hx of colonoscopy History of sinus surgery History of left heart catheterization (05/28/18) H/O coronary artery bypass surgery (05/30/18) Social History household members: none Smoking Status: Former smoker alcohol intake: current alcohol intake frequency: holidays/special occasions only substance use type: does not use ROS Constitutional Constitutional: Denies fatigue, fever(s), poor appetite, weight gain or weight loss Gastrointestinal Gastrointestinal: Denies belching, bloating, change in bowel habits, change in stool character, chewing difficulty, coffee ground emesis, constipation, cramping, diarrhea, dyspepsia, dysphagia, early satiety, excessive flatus, fecal incontinence, heartburn, hematemesis, hematochezia, hemorrhoids, loose stools, melena, nausea, odynophagia, rectal bleeding, tenesmus, vomiting or weight changes Physical Exam Const alert, oriented x3, no apparent distress and healthy appearing General Appearance: cooperative GI normal to inspection, nondistended, normoactive bowel sounds, soft to palpation, non-tender and non-distended Percussion: normal to percussion Rectal Exam: deferred Assessment & Plan Assessment/Plan (1) Dysphagia: PLAN: She will undergo esophageal manometry to evaluate for esophageal motility disorder.
== END | disposition home or self-care (01) ==
PROVIDERS: PCP Nurse Practitioner Family; Referring Provider Nurse Practitioner Family; Visit Provider Internal Medicine Gastroenterology
PROC: F00ZJWZ Instrumental Swallowing and Oral Function Assessment using Swallowing Equipment (ICD-10-PCS; CPT 43235; principal; 2024-08-09 12:25)
DX: R13.10 Dysphagia, unspecified (principal); Z79.4 Long term (current) use of insulin; E11.9 Type 2 diabetes mellitus without complications; R07.9 Chest pain, unspecified; Z87.891 Personal history of nicotine dependence; K21.9 Gastro-esophageal reflux disease without esophagitis; I10 Essential (primary) hypertension; G89.29 Other chronic pain; I25.10 Atherosclerotic heart disease of native coronary artery without angina pectoris; E78.00 Pure hypercholesterolemia, unspecified; M54.50 Low back pain, unspecified; Z86.73 Personal history of transient ischemic attack (TIA), and cerebral infarction without residual deficits; I25.2 Old myocardial infarction; Z95.1 Presence of aortocoronary bypass graft
CPT/HCPCS: 91010

== ENCOUNTER → 2024-09-03 | Outpatient (CLI) | payer MEDICARE, SELFPAY ==
[2024-09-03 21:23] LABS: ALB/GLOB Ratio 1.2 RATIO (0.9-2.4); AST(SGOT) 14 U/L (<=31); Alanine Aminotransfer ALT/SGPT 14 U/L (<=34); Albumin, Serum 4.1 g/dL (3.4-4.8); Alkaline Phosphatase 97 U/L (35-104); Anion Gap 13 (5-15); BUN 19 mg/dL (4-19); BUN/Creat Ratio 22.5 RATIO (10-20); Calcium,Total 9.2 mg/dL (7.6-11.0); Carbon Dioxide 23.6 mmol/L (21.0-32.0); Chloride 104 mmol/L (98-108); Cholesterol 256 mg/dL (<=200); Creatinine, Serum 0.84 mg/dL (0.70-1.20); EST Glomerular Filtration Rate 73 (>60); Globulin 3.4 g/dL (2.2-4.2); Glucose 89 mg/dL (70-99); High Density Lipoprotein 47 mg/dL; Low Density Lipoprotein Calc. 193 mg/dL; Protein, Total 7.6 g/dL (5.9-8.4); Sodium Level 140 mmol/L (133-145); Total Bilirubin 0.31 mg/dL (0.00-1.30); Triglycerides 76 mg/dL; Very Low Density Lipoprotein 15 mg/dL (5-40)
[2024-09-03 21:32] LABS: Microalbumin,Random Urine 18.4 mg/L (NO RANGE EST.); Microalbumin:Creatinine Ratio 108.9 mg/g CRE
== END | disposition home or self-care (01) ==
PROVIDERS: PCP Nurse Practitioner Family; Visit Provider Nurse Practitioner Family
DX: E78.5 Hyperlipidemia, unspecified (principal); E11.65 Type 2 diabetes mellitus with hyperglycemia; Z79.4 Long term (current) use of insulin
CPT/HCPCS: 36415; 80053; 80061; 82043; 82570

== ENCOUNTER 2024-12-31 15:49 | Emergency (ER) | payer MEDICARE, SELFPAY ==
[2024-12-31 15:51] VITALS: BP 134/76; PULSE 73; RESP 16; TEMP 36.6; O2SAT 97
[2024-12-31 16:03] VITALS: BMI 35.9
--- NOTE | 2024-12-31 16:44 | EKG12_ITS ---
Test Reason : GENERAL Blood Pressure : */* mmHG Vent. Rate : 59 BPM Atrial Rate : 59 BPM P-R Int : 122 ms QRS Dur : 86 ms QT Int : 436 ms P-R-T Axes : 38 32 56 degrees QTcB Int : 431 ms Sinus bradycardia Otherwise normal ECG Confirmed by BELINDA MCMANUS, NATALIA ([id number]), telegraph editor AZ KIM ([id number]) on 01/01/2025 8:37:52 AM Referred By: Confirmed By: NATALIA TREVINO MD
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
[2024-12-31 16:57] VITALS: BP 166/73; PULSE 63; RESP 17; O2SAT 99
--- NOTE | 2024-12-31 17:00 | RAD_ITS ---
PROCEDURE: CHEST PA AND LATERAL 12/31/2024 REASON FOR EXAM: CHEST PAIN TECHNIQUE: CHEST PA AND LATERAL COMPARISON: 03/19/2024 FINDINGS: Lungs/Pleura: No focal consolidation, pneumothorax, or pleural effusion. Heart/Mediastinum: Mild cardiomegaly. Evidence of prior CABG with sternotomy wires and multiple mediastinal surgical clips. No significant vascular congestion. Bones/Soft tissues: Multilevel degenerative changes of the spine. RAD/Chest PA and Lateral IMPRESSION: Cardiomegaly. No evidence of acute cardiopulmonary disease. Reading Location: [id number]
--- NOTE | 2024-12-31 17:00 | RAD_ITS ---
PROCEDURE: LEFT HAND MIN 3 VIEWS 12/31/2024 REASON FOR EXAM: PAIN TECHNIQUE: LEFT HAND MIN 3 VIEWS COMPARISON: None. FINDINGS: No acute fracture or dislocation. Alignment is anatomic. Mild diffuse interphalangeal joint space narrowing. No periarticular erosion. Qualitative osteopenia. No appreciable soft tissue swelling. RAD/Hand Min 3 Views IMPRESSION: No acute or aggressive osseous abnormality. Mild degenerative changes. Reading Location: [id number]
[2024-12-31 17:28] LABS: Hematocrit 41.7 % (37-47); Hemoglobin 13.1 g/dL (12.0-15.0); Immature Granulocytes Count 0.020 X10^3/uL (0.0-0.0); Mean Corp Hgb Conc 31.4 g/dL (32-36); Mean Corpuscular Volume 89.3 fL (81-99); Mean Platelet Vol. 12.2 fl (6.2-12.0); NRBC Flagged by Analyzer 0 % (0-5); Platelet Count 264 K/mm3 (150-450); RBC Distribution Width CV 13.2 % (11.6-14.6); RBC Distribution Width SD 43.1 fl (35.1-43.9); Red Blood Count 4.67 M/mm3 (4.2-5.4); White Blood Count 6.8 K/mm3 (4.4-11.0)
[2024-12-31 17:51] LABS: Anion Gap 11 (5-15); BUN 19 mg/dL (4-19); BUN/Creat Ratio 21.9 RATIO (10-20); Calcium,Total 9.3 mg/dL (7.6-11.0); Carbon Dioxide 25.7 mmol/L (21.0-32.0); Chloride 105 mmol/L (98-108); Estimated Creatinine Clearance 52.52 ml/min (50-250); Glucose 116 mg/dL (70-99); Potassium 4.1 mmol/L (3.3-5.1); Troponin T High Sensitivity 12 ng/L (<=14)
[2024-12-31 19:05] LABS: Troponin T High Sens 2 HR 9 ng/L (<=14)
[2024-12-31 20:00] VITALS: BP 155/63; PULSE 61; RESP 16; O2SAT 99
[2024-12-31 20:36] VITALS: BP 170/63; PULSE 63; RESP 18; TEMP 36.6; O2SAT 99
--- OUTSIDE RECORDS SUMMARY | 2024-12-31 23:09 | XMS RPT_ITS | CCD ---
Author Organization [facility] CliniSyal Care Team Providers Care Menhaden Vessel Pilot Name Role Phone Susan Teague Primary Care Provider Chris More MD Unavailable Rajan Marroquin MD Unavailable [phone] Trinity Baird Primary Care Provider [phone] Dr. Trinity Baird Referring Provider 1([facility])[phone] Reynaldo TRANSLATIONAL SPECIALIST, TRANSLATIONAL SPECIALIST-C May Attending Provider Dr. Taras Green Chi Primary Care Provider 1([facility])[phone] Dr. Abdelrahman Saldana Attending Provider 1([facility])[phone] Reynaldo TRANSLATIONAL SPECIALIST, TRANSLATIONAL SPECIALIST-C May Referring Provider Reynaldo TRANSLATIONAL SPECIALIST, TRANSLATIONAL SPECIALIST-C May Other Provider 1([facility])[phone] Dr. Taras Green Chi Referring Provider 1([facility])[phone] THERESA Muhammad Attending Provider 1([facility])[phone] THERESA Hoang Attending Provider 1([facility])[phone] Dr. Trinity Baird Referring Provider 1([facility])[phone] Reynaldo DESHPANDE, TRANSLATIONAL SPECIALIST-C May Attending Provider Dr. Taras Green Chi Primary Care Provider 1([facility])[phone] Dr. Abdelrahman Saldana Attending Provider 1([facility])[phone] Friend, Dr. Palacios Attending Provider 1([facility])[phone] Taras Green Chi Primary Care Provider 1([facility])[phone] Dr. Taras Green Chi Referring Provider 1([facility])[phone] THERESA Muhammad Attending Provider 1([facility])[phone] Dr. Abdelrahman Saldana Attending Provider 1([facility])[phone] Taras Green Chi Primary Care Provider 1([facility])[phone] Peter, Dr. Taras Killian Referring Provider 1([facility])[phone] THERESA Muhammad Attending Provider 1([facility])[phone] Dr. Abdelrahman Saldana Attending Provider 1([facility])[phone] Castro Browne Other Provider 1([facility])[phone] Haja Islas Attending Provider Dr. Castro Browne Referring Provider eRynaldo TRANSLATIONAL SPECIALIST, TRANSLATIONAL SPECIALIST-C May Attending Provider Peter, Dr. Taras Killian Primary Care Provider 1([facility])[phone] Peter, Dr. Taras Killian Referring Provider 1([facility])[phone] Friend, Dr. Palacios Attending Provider 1([facility])[phone] Friend, Dr. Palacios Other Provider 1([facility])[phone] THERESA Hoang Attending Provider 1([facility])[phone] Peter, Dr. Taras Killian Primary Care Provider 1([facility])[phone] Peter, Dr. Taras Killian Primary Care Provider 1([facility])[phone] Peter, Dr. Taras Killian Referring Provider 1([facility])[phone] FriendDr. Palacios Attending Provider 1([facility])[phone] Friend, Dr. Palacios Other Provider 1([facility])[phone] THERESA Hoang Attending Provider 1([facility])[phone] Peter, Dr. Taras Killian Primary Care Provider 1([facility])[phone] Peter, Dr. Taras Killian Referring Provider 1([facility])[phone] Reynaldo DESHPANDE, GABY Olvera Attending Provider Friend, Dr. Palacios Attending Provider 1([facility])[phone] Dr. Beck Finley Attending Provider 1([facility])[phone] Chris More MD Unavailable Rajan Marroquin MD Unavailable Peter, Taras Killian Primary Care Provider 1([facility])[phone] PROVIDER, UNKNOWN Referring Unavailable Gladys Baird MD Unavailable Peter, Dr. Taras Killian Primary Care Provider Peter, Dr. Taras Killian Referring Provider Dr. Princess Lackey Attending Provider [phone] Lopez MCMANUS, Rajan Unavailable Peter, Dr. Taras Killian Primary Care Provider Peter, Dr. Taras Killian Referring Provider Hoda, Dr. Palacios Attending Provider [place] PA, PA Marely Ramesh Attending Provider Dr. Moy Ozuna Attending Provider [phone] Jonathon Carpio Referring Provider [phone] Dr. Jonathon Carpio Other Provider Dr. Malcolm Truong Attending Provider [place] THERESA, PA Marely Ramesh Other Provider [phone] Peter, Taras Chi Primary Care Provider [phone] MAE RAYA Attending Unavailable PETER, TARAS CHI Primary Care Unavailable PETER, TARAS CHI Primary Care Unavailable AGUSTINA HIRSCH Attending Unavailable Dr. Williams Starr DO Referring Provider Marely Rosario Attending Provider Omero TRANSLATIONAL SPECIALIST-C, Ximena Primary Care Provider Omero TRANSLATIONAL SPECIALIST-C, Ximena Referring Provider Dr. Brendon Orozco MD Attending Provider Dr. Abdelrahman Saldana MD Attending Provider Jonah TRANSLATIONAL SPECIALIST-C, Tere Attending Provider Jonah TRANSLATIONAL SPECIALIST-C, Tere Referring Provider Omero TRANSLATIONAL SPECIALIST-C, Ximean Attending Provider Dr. Philip Drummond DO Attending Provider Dr. Philip Drummond DO Other Provider Omero TRANSLATIONAL SPECIALIST-C, Ximena Primary Care Provider Omero TRANSLATIONAL SPECIALIST-C, Ximena Primary Care Provider Omero TRANSLATIONAL SPECIALIST-C, Ximena Referring Provider Jonah TRANSLATIONAL SPECIALIST-CTere Attending Provider Sally Flores Attending Provider Dr. [...] Ximena Referring Unavailable Omero, Ximena Referring Unavailable Omero, Ximena Primary Care Unavailable AtanasovSally Attending Unavailable [...] Unavailable Dr. Geri Mckeon MD Attending Provider [phone] Omero TRANSLATIONAL SPECIALIST-CXimena Attending Provider Dr. Marleny Davis DO Emergency Provider [phone] Allergies Allergy Classification Reported Allergen(s) Allergy Type Date of Onset Reaction(s) Facility (20 sources) Acetaminophen; 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: [ACETAMINOPHEN] Drug Allergy 10-15-19 15 Nausea And Vomiting, GI Upset [place] Comment on above: back pain (3 sources) Angiotensin Converting Enzyme (Wyatt) Inhibitors Propensity to adverse reactions to drug 01-13-20 15 Other (See Comments) [place] (20 sources) Codeine; 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: [CODEINE] Drug Allergy 05-30-20 12 Other (See Comments), Mental Status Change [place] Comment on above: hallucinate (3 sources) diphenhydrAMINE Drug Allergy 03-02-20 15 Palpitations [place] (20 sources) Metoclopramide Drug Allergy 11-13-19 15 Other (See Comments) [place] Comment on above: seizure (9 sources) Penicillins; 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: [PENICILLINS] Propensity to adverse reactions to drug 05-30-20 12 Swelling [place] (3 sources) Sulfonamides (Antibiotic) Propensity to adverse reactions to drug 11-13-19 15 Swelling [place] (20 sources) Sulfur; 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: [SULFUR] Drug Allergy 05-30-20 12 [place] (19 sources) Metoclopramide; 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: [METOCLOPRAMIDE HCL] Drug Allergy 10-21-19 15 Other: See Comments [facility] (1 source) Penicillins Drug Allergy 05-30-20 12 [facility] Work Phone: (18 sources) rosuvastatin; 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: [ROSUVASTATIN] Drug Allergy 02-28-20 20 Myalgia [facility] Work Phone: (19 sources) Benadryl Allergy Decongestant; 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: [BENADRYL ALLERGY DECONGESTANT] Propensity to adverse reactions to drug 05-27-20 18 Other: See Comments [facility] (5 sources) Acetaminophen Drug Allergy 10-19-19 22 Other [facility] Work Phone: (20 sources) diphenhydrAMINE Drug Allergy 10-19-19 22 Other [facility] Comment on above: severe anxiety (20 sources) Sulfonamides (Antibiotic); 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: [Sulfa (Sulfonamide Antibiotics)] Allergy to substance 10-19-19 Swelling [facility] (20 sources) Penicillins Allergy to substance 12-02-19 22 [facility] (16 sources) Penicillins Drug Allergy 05-30-20 12 [facility] Work Phone: (1 source) Acetaminophen Drug Allergy 07 [facility] (1 source) Codeine Drug Allergy 12-11-19 [facility] (1 source) diphenhydrAMINE Drug Allergy 12-11-19 [facility] (1 source) Metoclopramide Drug Allergy 12-11-19 [facility] (1 source) Penicillins Drug allergy (disorder) 12-11-19 [facility] Medications Current Medications Medication Drug Class(es) [...] Comment on above: Take 3 tablets by [facility] once daily. ciprofloxacin 500 mg oral tablet [...] Active Start: 08-27-2021 take 1 tablet by [facility] once daily Citalopram (Celexa) 10 mg tablet Active 10 MG PO DAILY August 27, 2021 11:10am Start: 08-27-2021 take 2 tablets by [facility] once daily Citalopram (Celexa) 10 mg tablet [...] inulin 200 mg / lactobacillus rhamnosus gg [id number] unt oral capsule (3 sources) Start: 04-09-20 [...] SL tablet Indications: Coronary artery disease of [place] artery of [place] heart with stable angina pectoris (HCC) Place [...] ACID Start: 10-09-2018 take 2 tablets by [facility] once daily omeprazole 20 MG EC tablet Take 2 tablets by mouth daily 30 tablet 3 10/09/2018 Active Comment on above: Take 1 capsule by [facility] twice daily. ondansetron 4 mg oral tablet [...] Comment on above: Take 1 tablet by [facility] every 8 hours as needed. 24 hr [...] g 11 09/26/2023 Active polyethylene glycol 3350 [id number] mg powder for oral solution (20 sources) [...] spasm. 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 Hyperlipidemia Statin intolerance Atherosclerotic heart disease of [place] coronary artery without angina pectoris Presence of [...] chew Start: 05-01-2019 take 1 capsule by [facility] once daily nitrofurantoin, macrocrystal-monohydrate , (MACROBID) 100 MG capsule Indications: Recurrent UTI Take 1 capsule by mouth daily For prevention of recurrent UTIs 30 capsule 3 05/01/2019 Active Start: 04-01-2019 take 1 capsule by [facility] once daily nitrofurantoin, macrocrystal-monohydrate , (MACROBID) 100 [...] Coronary atherosclerosis; 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: [Atherosclerotic heart disease of [place] coronary artery without angina pectoris] Onset: 9 [...] of teeth and jaw (20 sources) Temporomandibular hcpih-sdww-xegoqtyzhxv syndrome; 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: [Arthralgia of temporomandibular joint, unspecified [...] sources) Long-term current use of anticoagulant; 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: [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] Onset: 5 11-12-2014 Episodic Comment on above: plavix Other aftercare (4 sources) 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; 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: [Long-term (current) [...] 10-23-2020 10-23-2020 Episodic Other aftercare (1 source) 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; 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: [alf (current) use of insulin] Onset: 09-02-2024 Episodic [...] Auto (Unsp spec) [#/Vol] 2.53 10*3/uL 0.83-4.51 [facility] Absolute neutrophil countOrd ered By: Marleny Davis on 12-31-2024 Neutrophils (Bld) [#/Vol] 3.4 10*3/uL 2.0-7.7 [facility] Anion gap in Serum or Plasma Ordered By: Marleny Davis on 12-31-2024 Anion gap [Moles/Vol] 11 mmol/L 5-15 [facility] Automated lymphocyte count a s percentage of total leukocytesOrdered By: Marleny Davis on 12-31-2024 Lymphocytes/100 WBC Auto (Unsp spec) 37.3 % 19-41 [facility] BUN/creatinine ratioOrdered By: Marleny Davis on 12-31-2024 Urea nitrogen/Creatinine [Mass ratio] 21.9 mg/mg High 10-20 [facility] Basophil percentageOrdered B y: Marleny Davis on 12-31-2024 Basophils/100 WBC (Bld) 0.9 % 0-1 [facility] Carbon dioxide, total [Moles /volume] in Central venous bloodOrdered By: Marleny Davis on 12-31-2024 CO2 [Moles/Vol] 25.7 mmol/L 21.0-32.0 [facility] Chloride assayOrdered By: Cuba Davis on 12-31-2024 Chloride [Moles/Vol] 105 mmol/L 98-108 [facility] Eosinophil percentageOrdered By: Marleny Davis on 12-31-2024 Eosinophils/100 WBC (Bld) 3.2 % 0-5 [facility] Erythrocyte distribution wid th ratioOrdered By: Marleny Davis on 12-31-2024 Erythrocyte distribution width (RBC) [Ratio] 13.2 % 11.6-14.6 [facility] Erythrocyte distribution wid th standard deviationOrdered By: Marleny Davis on 12-31-2024 Erythrocyte distribution width (RBC) [Ratio] 43.1 fl 35.1-43.9 [facility] Glomerular filtration rate ( GFR) estimation/1.73 sq m using serum, plasma, or whole bOrdered By: Marleny Davis on 12-31-2024 GFR/1.73 sq M.predicted among non-blacks MDRD (S/P/Bld) [Vol rate/Area] 70 mL/min/{1.73_m2} >60 [facility] Comment on above: mL/min/1.73m2 CKD-EP I Creatinine Equation (2020) Hematocrit Auto (Bld) [Volum e fraction]Ordered By: Marleny Davis on 12-31-2024 Hematocrit (Bld) [Volume fraction] 41.7 % 37-47 [facility] Hemoglobin measurementOrdere d By: Marleny Davis on 12-31-2024 Hemoglobin (Bld) [Mass/Vol] 13.1 g/dL 12.0-15. 0 [facility] Immature granulocytes/100 WB C Auto (Bld)Ordered By: Marleny Davis on 12-31-2024 Immature granulocytes/100 WBC (Bld) 0.300 % 0.0-0.9 [facility] Comment on above: IG% - Immature Granu locytes (promyelocytes, myelocytes and metamyelocytes) > 1% indicates that a LEFT SHIFT is Present. MCV (mean corpuscular volume ) determinationOrdered By: Marleny Davis on 12-31-2024 MCV (RBC) [Entitic vol] 89.3 fL 81-99 [facility] Mean corpuscular hemoglobin (MCH) determinationOrdered By: Marleny Davis on 12-31-2024 MCH (RBC) [Entitic mass] 28.1 pg 27.0-32.0 [facility] Mean corpuscular hemoglobin concentration (MCHC) determinationOrdered By: Marleny Davis on 12-31-2024 MCHC (RBC) [Mass/Vol] 31.4 g/dL Low 32-36 [facility] Mean platelet volume determi nationOrdered By: Marleny Davis on 12-31-2024 Platelet mean volume (Bld) [Entitic vol] 12.2 fL High 6.2-12.0 [facility] Monocyte percentageOrdered B y: Marleny Davis on 12-31-2024 Monocytes/100 WBC (Bld) 8.5 % 0-10 [facility] Neutrophil percentageOrdered By: Marleny Davis on 12-31-2024 Neutrophils/100 WBC (Bld) 49.8 % 47-70 [facility] Nucleated red blood cell per centageOrdered By: Marleny Davis on 12-31-2024 Nucleated RBC/100 WBC (Bld) [Ratio] 0 % 0-5 [facility] Platelet countOrdered By: Cuba Davis on 12-31-2024 Platelets (Bld) [#/Vol] 264 10*3/uL 150-450 [facility] Potassium measurement (mass/ volume)Ordered By: Marleny Davis on 12-31-2024 Potassium (Unsp spec) [Mass/Vol] 4.1 mmol/L 3.3-5.1 [facility] RBC Auto (Bld) [#/Vol]Ordere d By: Marleny Davis on 12-31-2024 RBC (Bld) [#/Vol] 4.67 10*6/uL 4.2-5.4 [facility] Serum creatinine measurement (mass/volume)Ordered By: Marleny Davis on 12-31-2024 Creatinine [Mass/Vol] 0.87 mg/dL 0.70-1.20 [facility] Serum glucose measurement (m ass/volume)Ordered By: Marleny Davis on 12-31-2024 Glucose [Mass/Vol] 116 mg/dL High 70-99 [facility] Serum or plasma calcium yuniel urement (mass/volume)Ordered By: Marleny Davis on 12-31-2024 Calcium [Mass/Vol] 9.3 mg/dL 7.6-11.0 [facility] Serum or plasma urea nitroge n measurement (mass/volume)Ordered By: Marleny Davis on 12-31-2024 Urea nitrogen [Mass/Vol] 19 mg/dL 4-19 [facility] Sodium levelOrdered By: Portia Davis on 12-31-2024 Sodium [Moles/Vol] 142 mmol/L 133-145 [facility] Troponin T.cardiac [Mass/vol ume] in Serum or Plasma by High sensitivity methodOrdered By: Marleny Davis on 12-31-2024 Troponin T.cardiac High sensitivity method [Mass/Vol] 9 ng/L <14 [facility] Troponin T.cardiac High sensitivity method [Mass/Vol] 12 ng/L <14 [facility] White blood cell (WBC) count Ordered By: Marleny Davis on 12-31-2024 WBC (Bld) [#/Vol] 6.8 10*3/uL 4.4-11.0 [facility] Cardiology Visit Reporton Cardiology Visit Report [facility] [address] [place], [place] [address] OFFICE VISIT Date of Service: 12/10/24 MR#: [id number] Acct: [id number] Name: LAYLA HIGUERA Rep #: [id number] : 1950 Provider: Dr. Abdelrahman Saldana MD Age/Sex: 74/F Location: [facility] Status: Signed HPI HPI History of [...] She did have to recuperate in a long-term. She also has a sclerotic aortic valve. [...] Monitor Intake Visit Reasons: 1 Y FU Ditch Rider Required: No Accompanied by: Self Is patient [...] PO DAILY (more content not included)... Normal [facility] Microalb:Creat Ratio,Random URon 11-21-2024 MALB:CREAT 10.9 mg/g CRE Normal [facility] Comment on above: Result Comment: AMENDED REPORT 11/21/24824 MALB:CREAT previously reported as: 108.9 mg/g CRE Performed By: #### L 501.6710, L500.4050, L503.6620, L4600.0100, L100.0100, L300.8000, L3100.5475, L505.7010, L101.9900 #### [facility] [address] [place], [place], [id number] Gastroenterology Visit Repor ton 10-03-2024 Gastroenterology Visit Report [facility] [address] [place] [address] OFFICE VISIT Date of Service: 10/03/24 MR#: [id number] Acct: [id number] Name: LAYLA HIGUERA Rep #: [id number] : 1950 Provider: THERESA Camp Age/Sex: 74/F Location: [facility] Status: Signed Intake Vital Signs 09/02/24 13:42 [...] Note: OV 10.03.24 Pt here for f/u [facility] Medical History (Updated 09/04/24 @ 16:38 by GABY Marques) Cardiac murmur Current use of manager shell anticoagulation Arterial vascular disease Bilateral buttock pain [...] accident) (09/2014) Atherosclerosis of coronary artery of [place] heart without angina pectoris History of non-ST [...] for f/u. [facility] established in 2020 after [facility] admission for pancreatitis. CT abd/pel without contrast [...] night and (more content not included)... Normal [facility] Albumin DL <= 20 mg/L (U) [M ass/Vol]Ordered By: Tere Mckenzie on 09-03-2024 Urine Random Microalbumin 18.4 mg/L NO RANGE EST. [facility] Anion gap in Serum or Plasma Ordered By: Tere Mckenzie on 09-03-2024 Anion gap [Moles/Vol] 13 mmol/L 5-15 [facility] BUN/creatinine ratioOrdered By: Tere Mckenzie on 09-03-2024 Urea nitrogen/Creatinine [Mass ratio] 22.5 mg/mg High 10-20 [facility] Bilirubin, totalOrdered By: Tere Mckenzie on 09-03-2024 Bilirubin [Mass/Vol] 0.31 mg/dL 0.00-1.30 [facility] Calculated very low density lipoprotein (VLDL) cholesterol measurementOrdered By: Tere Mckenzie on 09-03-2024 Calculated very low density lipoprotein (VLDL) cholesterol measurement 15 mg/dL -40 [facility] VLDL Cholesterol 15 mg/dL -40 [facility] Carbon dioxide, total [Moles /volume] in Central venous bloodOrdered By: Tere Mckenzie on 09-03-2024 CO2 [Moles/Vol] 23.6 mmol/L 21.0-32.0 [facility] Chloride assayOrdered By: Me aysha Mckenzie on 09-03-2024 Chloride [Moles/Vol] 104 mmol/L 98-108 [facility] Comprehensive Metabolic Prof ilon 09-03-2024 Albumin [Mass/Vol] 4.1 g/dL Normal 3.4-4.8 [facility] Comment on above: Performed By: #### L 501.6710, L500.4050, L503.6620, L4600.0100, L100.0100, L300.8000, L3100.5475, L505.7010, L101.9900 #### [facility] [address] [place], [address] Albumin/Globulin [Mass ratio] 1.2 {ratio} Normal 0.9-2.4 [facility] Comment on above: Performed By: #### L 501.6710, L500.4050, L503.6620, L4600.0100, L100.0100, L300.8000, L3100.5475, L505.7010, L101.9900 #### [facility] [address] [place], [address] ALK PHOS 97 U/L Normal 35-104 [facility] Comment on above: Performed By: #### L 501.6710, L500.4050, L503.6620, L4600.0100, L100.0100, L300.8000, L3100.5475, L505.7010, L101.9900 #### [facility] [address] [place], [address] ALT [Catalytic activity/Vol] 14 U/L Normal <=34 [facility] Comment on above: Performed By: #### L 501.6710, L500.4050, L503.6620, L4600.0100, L100.0100, L300.8000, L3100.5475, L505.7010, L101.9900 #### [facility] [address] [place], [address] AST [Catalytic activity/Vol] 14 U/L Normal <=31 [facility] Comment on above: Performed By: #### L 501.6710, L500.4050, L503.6620, L4600.0100, L100.0100, L300.8000, L3100.5475, L505.7010, L101.9900 #### [facility] [address] [place], [address] Bilirubin [Mass/Vol] 0.31 mg/dL Normal 0.00-1.30 [facility] Comment on above: Performed By: #### L 501.6710, L500.4050, L503.6620, L4600.0100, L100.0100, L300.8000, L3100.5475, L505.7010, L101.9900 #### [facility] [address] [place], [address] BUN/CRE 22.5 RATIO High 10-20 [facility] Comment on above: Performed By: #### L 501.6710, L500.4050, L503.6620, L4600.0100, L100.0100, L300.8000, L3100.5475, L505.7010, L101.9900 #### [facility] [address] [place], [address] Calcium [Mass/Vol] 9.2 mg/dL Normal 7.6-11.0 [facility] Comment on above: Performed By: #### L 501.6710, L500.4050, L503.6620, L4600.0100, L100.0100, L300.8000, L3100.5475, L505.7010, L101.9900 #### [facility] [address] [place], [address] Chloride [Moles/Vol] 104 mmol/L Normal 98-108 [facility] Comment on above: Performed By: #### L 501.6710, L500.4050, L503.6620, L4600.0100, L100.0100, L300.8000, L3100.5475, L505.7010, L101.9900 #### [facility] [address] [place], [place], [id number] ([address] CO2 [Moles/Vol] 23.6 mmol/L Normal 21.0-32.0 [facility] Comment on above: Performed By: #### L 501.6710, L500.4050, L503.6620, L4600.0100, L100.0100, L300.8000, L3100.5475, L505.7010, L101.9900 #### [facility] [address] [place], [place], [id number] ([address] Creatinine [Mass/Vol] 0.84 mg/dL Normal 0.70-1.20 [facility] Comment on above: Performed By: #### L 501.6710, L500.4050, L503.6620, L4600.0100, L100.0100, L300.8000, L3100.5475, L505.7010, L101.9900 #### [facility] [address] [place], [place], [id number] ([address] GAP 13 Normal 5-15 [facility] Comment on above: Performed By: #### L 501.6710, L500.4050, L503.6620, L4600.0100, L100.0100, L300.8000, L3100.5475, L505.7010, L101.9900 #### [facility] [address] [facility] [place], [address] GFR/1.73 sq M.predicted among non-blacks MDRD (S/P/Bld) [Vol rate/Area] 73 mL/min/{1.73_m2} Normal >60 [facility] Comment on above: Result Comment: mL/m in/1.73m2 CKD-EPI Creatinine Equation (2020) Performed By: #### L 501.6710, L500.4050, L503.6620, L4600.0100, L100.0100, L300.8000, L3100.5475, L505.7010, L101.9900 #### [facility] [address] [place], [address] Globulin (S) [Mass/Vol] 3.4 g/dL Normal 2.2-4.2 [facility] Comment on above: Performed By: #### L 501.6710, L500.4050, L503.6620, L4600.0100, L100.0100, L300.8000, L3100.5475, L505.7010, L101.9900 #### [facility] [address] [facility] [place], [address] Glucose [Mass/Vol] 89 mg/dL Normal 70-99 [facility] Comment on above: Performed By: #### L 501.6710, L500.4050, L503.6620, L4600.0100, L100.0100, L300.8000, L3100.5475, L505.7010, L101.9900 #### [facility] [address] [facility] [place], [address] Potassium [Moles/Vol] 4.0 mmol/L Normal 3.3-5.1 [facility] Comment on above: Performed By: #### L 501.6710, L500.4050, L503.6620, L4600.0100, L100.0100, L300.8000, L3100.5475, L505.7010, L101.9900 #### [facility] [address] [place], [address] Sodium [Moles/Vol] 140 mmol/L Normal 133-145 [facility] Comment on above: Performed By: #### L 501.6710, L500.4050, L503.6620, L4600.0100, L100.0100, L300.8000, L3100.5475, L505.7010, L101.9900 #### [facility] [address] [place], [address] T PROT 7.6 g/dL Normal 5.9-8.4 [facility] Comment on above: Performed By: #### L 501.6710, L500.4050, L503.6620, L4600.0100, L100.0100, L300.8000, L3100.5475, L505.7010, L101.9900 #### [facility] [address] [place], [address] Urea nitrogen [Mass/Vol] 19 mg/dL Normal 4-19 [facility] Comment on above: Performed By: #### L 501.6710, L500.4050, L503.6620, L4600.0100, L100.0100, L300.8000, L3100.5475, L505.7010, L101.9900 #### [facility] [address] [place], [address] Creatinine Unsp time (U) [Ma ss/Vol]Ordered By: Tere Mckenzie on 09-03-2024 Creatinine (U) [Mass/Vol] 169.00 mg/dL 28.00-21 7.00 [facility] GFR/1.73 sq M.predicted santos g non-blacks MDRD (S/P/Bld) [Vol rate/Area]Ordered By: Tere Mckenzie on 09-03-2024 Estimated GFR (MDRD) Non-Af Amer 73 >60 [facility] Comment on above: mL/min/1.73m2 CKD-EP I Creatinine Equation (2020) Glomerular filtration rate ( GFR) estimation/1.73 sq m using serum, plasma, or whole bOrdered By: Tere Mckenzie on 09-03-2024 GFR/1.73 sq M.predicted among non-blacks MDRD (S/P/Bld) [Vol rate/Area] 73 mL/min/{1.73_m2} >60 [facility] Comment on above: mL/min/1.73m2 CKD-EP I Creatinine Equation (2020) LDL calc ser/plasOrdered By: Tere Mckenzie on 09-03-2024 Cholesterol in LDL [Mass/Vol] 193 mg/dL [facility] Comment on above: Roddapeqkb=593-570 m g/dL & Higher Qohu=612 mg/dL or greater LDL Cholesterol, Calculated 193 mg/dL [facility] Comment on above: Ufrsldahql=825-628 m g/dL & Higher Bsmo=323 mg/dL or greater Laboratory - Chemistry and C hemistry - challengeOrdered By: Tere Mckenzie on 09-03-2024 AST [Catalytic activity/Vol] 14 U/L <32 [facility] Lipid Profileon 09-03-2024 CHOL:HDL 5.40 Normal [facility] Comment on above: Performed By: #### L 501.6710, L500.4050, L503.6620, L4600.0100, L100.0100, L300.8000, L3100.5475, L505.7010, L101.9900 #### [facility] [address] [place], [address] Cholesterol [Mass/Vol] 256 mg/dL High <=200 [facility] Comment on above: Result Comment: Chol esterol level, Desirable <200 mg/dL Borderline high cholesterol 200-239 mg/dL High cholesterol >=240 mg/dL Recommendations of the NCEP Adult Treatment Panel for the following risk-cutoff thresholds for the [place] population. Performed By: #### L 501.6710, L500.4050, L503.6620, L4600.0100, L100.0100, L300.8000, L3100.5475, L505.7010, L101.9900 #### [facility] [address] [place], [address] Cholesterol in HDL [Mass/Vol] 47 mg/dL Normal [facility] Comment on above: Result Comment: Gisela onal Cholesterol Education Program (NCEP) guidelines: <40 mg/dL: Low HDL-cholesterol (major risk factor for CHD) >= 60 mg/dL: High HDL-cholesterol (negative risk factor for CHD) HDL-cholesterol is affected by a number of factors, e.g. smoking, exercise, hormones, sex and age. Performed By: #### L 501.6710, L500.4050, L503.6620, L4600.0100, L100.0100, L300.8000, L3100.5475, L505.7010, L101.9900 #### [facility] [address] [place], [address] Cholesterol in LDL [Mass/Vol] 193 mg/dL Normal [facility] Comment on above: Result Comment: Bord luliur=984-712 mg/dL Higher Vwag=276 mg/dL or greater Performed By: #### L 501.6710, L500.4050, L503.6620, L4600.0100, L100.0100, L300.8000, L3100.5475, L505.7010, L101.9900 #### [facility] [address] [place], [address] Cholesterol in VLDL [Mass/Vol] 15 mg/dL Normal 5-40 [facility] Comment on above: Performed By: #### L 501.6710, L500.4050, L503.6620, L4600.0100, L100.0100, L300.8000, L3100.5475, L505.7010, L101.9900 #### [facility] [address] [place], [address] Triglyceride [Mass/Vol] 76 mg/dL Normal [facility] Comment on above: Result Comment: The drugs N-Acetylcysteine and Metamizole may falsely depress this assay. Normal range: <150 mg/dL Borderline High: 150-199 mg/dL High: 200-499 mg/dL Very High: >500 mg/dL Performed By: #### L 501.6710, L500.4050, L503.6620, L4600.0100, L100.0100, L300.8000, L3100.5475, L505.7010, L101.9900 #### [facility] [address] [place], [address] Microalbumin/creat ratio urO rdered By: Tere Mckenzie on 09-03-2024 Urine Microalbumin/Creatinine Ratio 108.9 mg/g CRE [facility] Potassium (Unsp spec) [Mass/ Vol]Ordered By: Tere Mckenzie on 09-03-2024 Potassium [Moles/Vol] 4.0 mmol/L 3.3-5.1 [facility] Potassium measurement (mass/ volume)Ordered By: Tere Mckenzie on 09-03-2024 Potassium (Unsp spec) [Mass/Vol] 4.0 mmol/L 3.3-5.1 [facility] Random urine creatinine yuniel urement (mass/volume)Ordered By: Tere Mckenzie on 09-03-2024 Creatinine Unsp time (U) [Mass/Vol] 169.00 mg/dL 28.00-217.00 [facility] Screening total cholesterol/ high density lipoprotein (HDL) cholesterol ratioOrdered By: Tere Mckenzie on 09-03-2024 Cholesterol.total/Cholester ol in HDL [Mass ratio] 5.40 {ratio} [facility] Serum creatinine measurement (mass/volume)Ordered By: Tere Mckenzie on 09-03-2024 Creatinine [Mass/Vol] 0.84 mg/dL 0.70-1.20 [facility] Serum globulin measurementOr dered By: Tere Mckenzie on 09-03-2024 Globulin (S) [Mass/Vol] 3.4 g/dL 2.2-4.2 [facility] Serum glucose measurement (m ass/volume)Ordered By: Tere Mckenzie on 09-03-2024 Glucose [Mass/Vol] 89 mg/dL 70-99 [facility] Serum or plasma alanine boyce otransferase (ALT) measurementOrdered By: Tere Mckenzie on 09-03-2024 ALT [Catalytic activity/Vol] 14 U/L <35 [facility] Serum or plasma albumin yuniel urement (mass/volume)Ordered By: Tere Mckenzie on 09-03-2024 Albumin [Mass/Vol] 4.1 g/dL 3.4-4.8 [facility] Serum or plasma albumin/glob ulin mass ratioOrdered By: Tere Mckenzie on 09-03-2024 Albumin/Globulin [Mass ratio] 1.2 {ratio} 0.9-2.4 [facility] Serum or plasma alkaline christopher sphatase measurementOrdered By: Tere Mckenzie on 09-03-2024 ALP [Catalytic activity/Vol] 97 U/L 35-104 [facility] Serum or plasma calcium yuniel urement (mass/volume)Ordered By: Tere Mckenzie on 09-03-2024 Calcium [Mass/Vol] 9.2 mg/dL 7.6-11.0 [facility] Serum or plasma cholesterol in HDL measurement (mass/volume)Ordered By: Tere Mckenzie on 09-03-2024 Cholesterol in HDL [Mass/Vol] 47 mg/dL >40 [facility] Comment on above: National Cholesterol Education Program (NCEP) guidelines:<40 mg/dL: Low HDL-cholesterol (major risk factor for CHD)>= 60 mg/dL: High HDL-cholesterol (negative risk factor for CHD)HDL-cholesterol is affected by a number of factors, e.g. smoking, exercise, hormones, sex and age. Serum or plasma cholesterol measurement (mass/volume)Ordered By: Tere Mckenzie on 09-03-2024 Cholesterol [Mass/Vol] 256 mg/dL High <201 [facility] Comment on above: Cholesterol level, D esirable <200 mg/dLBorderline high cholesterol 200-239 mg/dLHigh cholesterol >=240 mg/dLRecommendations of the NCEP Adult Treatment Panel for the following risk-cutoff thresholds for the [place] population. Serum or plasma urea nitroge n measurement (mass/volume)Ordered By: Tere Mckenzie on 09-03-2024 Urea nitrogen [Mass/Vol] 19 mg/dL 4-19 [facility] Sodium levelOrdered By: Dorian Mckenzie on 09-03-2024 Sodium [Moles/Vol] 140 mmol/L 133-145 [facility] Total proteinOrdered By: Keila Mckenzie on 09-03-2024 Protein [Mass/Vol] 7.6 g/dL 5.9-8.4 [facility] Triglycerides measurementOrd ered By: Tere Mckenzie on 09-03-2024 Triglyceride [Mass/Vol] 76 mg/dL <199 [facility] Comment on above: The drugs N-Acetylcy steine and Metamizole may falsely depress this assay. Normal range: <150 mg/dLBorderline High: 150-199 mg/dLHigh: 200-499 mg/dLVery High: >500 mg/dL Urine albumin measurement [facility] detection limit of 20 mg/L or less (mass/volume)Ordered By: Tere Mckenzei on 09-03-2024 Albumin DL <= 20 mg/L (U) [Mass/Vol] 18.4 mg/L NO RANGE EST. [facility] Endocrinology Visit Reporton 09-02-2024 Endocrinology Visit Report [facility] [address] [place] [address] OFFICE VISIT Date of Service: 09/02/24 MR#: [id number] Acct: [id number] Name: LAYLA HIGUERA Rep #: [id number] : 1950 Provider: GABY anderson Age/Sex: 74/F Location: [facility] Status: Signed Intake Vital Signs 04/18/24 13:36 [...] (Updated 09/02/24 @ 16:40 by Tere Mckenzie, TRANSLATIONAL SPECIALIST-C) Cardiac murmur Current use of manager shell anticoagulation Arterial vascular disease Bilateral buttock pain [...] accident) (09/2014) Atherosclerosis of coronary artery of [place] heart without angina pectoris History of non-ST [...] HPI HPI Chief Complaint: f/u diabetes Details: LYALA HIGUERA, is a 74 F who presents to the office today for evaluation and management of diabetes. A1C today (more content not included)... Normal [facility] - Hematology and Cell countsOrdered By: Tere Mckenzie on 09-02-2024 HbA1c (Bld) [Mass fraction] 7.6 % High 4.2-6.3 [facility] [place] 07-04-2024 MOOSE Telephone (OBGYWM) LAYLA HIGUERA ([id number]) 1950 F Date Time Provider Department 07/04/24 [...] by sweta (more content not included)... Normal [facility] BACTERIAL VAGINOSIS NAATon 0 07-02-2024 Lactobacillus crispatus+gasseri+jensenii + Gardnerella vaginalis + Atopobium vaginae rRNA DARLIN+probe Ql (Vag fld) Not detected Normal Not detected [facility] Comment on above: Order Comment: Speci men Type: SWAB Ordering Facility: [facility] Address: [address] [place] [address] Performed By: #### C VTV, BVAMP #### [facility] CLIA [id number] [address] [place] [address] [place] [id number] [place] BAYRON/TRICHOMONAS NAATon 0 07-02-2024 C. glabrata RNA DARLIN+probe Ql (Vag fld) Not detected Normal Not detected [facility] Comment on above: Order Comment: Speci men Type: SWAB Ordering Facility: [facility] Address: [address] [place] [address] Performed By: #### C VTV, BVAMP #### [facility] CLIA [id number] [address] [place] [address] OF [place] Bayron sp DNA DARLIN+probe Ql (Vag fld) Not detected Normal Not detected [facility] Comment on above: Order Comment: Speci men Type: SWAB Ordering Facility: [facility] Address: [address] [place] [address] Result Comment: The Bayron species group target includes C. albicans, C. tropicalis, C. parapsilosis, and C. dubliniensis. Performed By: #### C VTV, BVAMP #### [facility] CLIA [id number] [address] [place] [address] OF [facility] T. vaginalis DNA DARLIN+probe Ql (Unsp spec) Not detected Normal Not detected [facility] Comment on above: Order Comment: Speci men Type: SWAB Ordering Facility: [facility] Address: [address] [place] [address] Performed By: #### C VTV, BVAMP #### [facility] CLIA [id number] [address] [place] [address] [place] CNOVon 07-02-2024 CNOV Office Visit (OBGYWM) LAYLA HIGUERA ([id number]) 1950 F Date Time Provider Department 07/02/24 3:20 PM CYNTHIA, MAE OBGYWM During your visit today, we recorded the following information about you: Blood pressure Weight 120/80 81.3 kg Mae Raya MD 07/02/2024 4:34 PM Signed 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 Layla Higuera is a [...] OB History No obstetric history on file. [place] History LMP: Postmenopausal Age at Menarche: Age at First : Age at Menopause: Rag[place] History Comments: Sexual Activity: Not Asked; No partner data on record Contraception: No contraception data on record PAST MEDICAL HISTORY Diagnosis Date Aortic sclerosis Aspiration pneumonia (HCC) Following CVA. CAD (coronary artery disease) COPD (chronic obstructive pulmonary disease) ([facility]) 03/18/2013 Stage 0. Normal FEV1 03/2013. 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 Stroke ([facility]) SUMMARY 10/14/2014 Ms Layla Higuera is a [...] aspart U (more content not included)... Normal [facility] Gastroenterology Visit Repor ton 06-13-2024 Gastroenterology Visit Report [facility] [address] [place] [address] OFFICE VISIT Date of Service: 06/13/24 MR#: [id number] Acct: [id number] Name: LAYLA HIGUERA Rep #: [id number] : 1950 Provider: Philip Drummond DO Age/Sex: 74/F [place] [facility] Status: Signed Intake Vital Signs 10/31/23 14:38 [...] 81 mg tablet,delayed 81 mg PO DAILY@0800 [facility] 06/14/18 05/14/24 History release insulin glargine 100 [...] you fallen in the past year?: No [facility] Medical History (Updated 05/15/24 @ 13:[address] Brendon Orozco MD) Cardiac murmur Current use of manager shell anticoagulation Arterial vascular disease Bilateral buttock pain [...] accident) (09/2014) Atherosclerosis of coronary artery of [place] heart without angina pectoris History of non-ST [...] hyperlipidemia; HTN; DM; CVA; NSTEMI; Ischemic stroke.? [facility] hospitalization 9.15.21-9.17.21 for UTI, N/V, CP, bacteremia. [facility] hospitalization 9.21.21- 9.29.21 for TEODORO. ??? CT abd/pel 9.15.21???with low attenuation along falciform ligament consistent with focal fatty sparing; layering sludge of gallbladder, possibly tiny calculi; small hiatal hernia; colonic div (more content not included)... Normal [facility] Dexa Bone Density Studyon Dexa Bone Density Study [facility] Imaging Services [address] [place], [place] [address] Dexa Bone Density Study MR#: [id number] Acct: [id number] Name: LAYLA HIGUERA Rep #: [id number] : 1950 F 74 From: Tato sandoval MD PCP: GABY Jewell Status: REG CLI Study: Dexa Bone Density Study Date of Exam: 06/11/24 Exam# [id number] Ordering Dr: Tere Mckenzie TRANSLATIONAL SPECIALIST-C [id number] STUDY: DUAL ENERGY X-RAY ABSORPTIOMETRY / DXA [...] 9:25 EST Reading Location ID and State: [address] [place] [address] , Service support , CC: GABY Mckenzie; GABY Sylvester Business Proposal Rep: Signed Normal [facility] Thyroid Peroxidase ABon 12-2 THYR PEROX AB 13 IU/mL Normal 0-34 [facility] Comment on above: Order Comment: Comme nts: fatigue Result Comment: Perf ormed at: CB - [facility] [id number] [place], [place] [id number] Hr Representative: John Lopez PhD, Phone: [phone] Performed By: #### L 501.2232, L500.4050, L503.3220, L4600.0100, L100.0100, L300.8000, L3100.5475, L505.7010, L101.9900 #### [facility] [address] [place], [place], [address] TPO Ab QnOrdered By: Tere frank on 05-27-2024 Thyroid Peroxidase Antibodies 13 IU/mL 0-34 [facility] Comment on above: Performed at: - L [address] [id number] Director: John Lopez PhD, Phone: [phone] L/S Spine Bending Flex/[place] 05-14-2024 L/S Spine Bending Flex/Ext [facility] [address] [place] [address] L/S Spine Bending Flex/Ext MR#: [id number] Acct: [id number] Name: LAYLA HIGUERA Rep #: [id number] : 1950 F 73 From: Jim love DO PCP: GABY Jewell Status: DEP AMB Study: L/S Spine Bending Flex/Ext Date of Exam: 05/14 Exam# [id number] Ordering Dr: Brendon Orozco MD [id number] EXAM: XR LUMBOSACRAL SPINE FLEXION/EXTENSION ONLY, 2 [...] CC: GABY Sylvester; Dr. Brendon Orozco MD Business Proposal Rep: Signed Normal [facility] Orthopedic Visit Reporton Orthopedic Visit Report [facility] [address] [place] [address] [address] [place] [address] OFFICE VISIT Date of Service: 05/14/24 MR#: [id number] Acct: [id number] Name: LAYLA HIGUERA Rep #: [id number] : 1950 Provider: Dr. Brendon Orozco MD Age/Sex: 73/F Location: [facility] Status: Signed Intake Vital Signs 10/31/23 14:38 [...] you fallen in the past year?: No [facility] Medical History (Updated 05/15/24 @ 13:[address] Brendon Orozco MD) Cardiac murmur Current use of snf anticoagulation Arterial vascular disease Bilateral buttock pain [...] accident) (09/2014) Atherosclerosis of coronary artery of [place] heart without angina pectoris History of non-ST elevation myocardial infarction (NSTEMI) (06/2018) Essential (primary) hypertension Overactive bladder Anxiety Tobacco abuse Diabetes Hyperlipidemia Surgical History (Updated 05/14/24 @ 15:31 by Tri Qulies) Hx of endoscopy Hx of colonoscopy History [...] MD 05/14/24 (more content not included)... Normal [facility] Cardiology Visit Reporton Cardiology Visit Report [facility] [address] [place] [address] OFFICE VISIT Date of Service: 04/23/24 MR#: [id number] Acct: [id number] Name: LAYLA HIGUERA Rep #: [id number] : 1950 Provider: THERESA Santana Age/Sex: 73/F Location: [facility] Status: Signed HPI HPI History of [...] She did have to recuperate in a long-term. She also has a sclerotic aortic valve. [...] 94 Intake Visit Reasons: 6 M FU Ditch Rider Required: No Is patient in pain?: No [...] PO QD (more content not included)... Normal [facility] Endocrinology Visit Reporton 04-18-2024 Endocrinology Visit Report [facility] [address] [place] [address] OFFICE VISIT Date of Service: 04/18/24 MR#: [id number] Acct: [id number] Name: LAYLA HIGUERA Rep #: [id number] : 1950 Provider: GABY anderson Age/Sex: 73/F Location: [facility] Status: Signed Intake Vital Signs 10/31/23 14:38 [...] you fallen in the past year?: No [facility] History Current use of snf anticoagulation Arterial vascular disease Bilateral buttock pain [...] accident) (09/2014) Atherosclerosis of coronary artery of [place] heart without angina pectoris History of non-ST [...] for eval (more content not included)... Normal [facility] Chest PA and Lateralon 03-19 Chest PA and Lateral [facility] Imaging Services [address] [place], [place] [id number] Chest PA and Lateral MR#: [id number] Acct: [id number] Name: LAYLA HIGUERA Rep #: [id number] : 1950 F 73 From: Jim love DO PCP: GABY Jewell Status: REG CLI Study: Chest PA and Lateral Date of Exam: 03/19/24 Exam# [id number] Ordering Dr: Ximena Sylvester [id number] EXAM: XR CHEST, 2 VIEWS CLINICAL INDICATION: [...] at 21:40 EDT , CC: GABY Sylvester Business Proposal Rep: Signed Normal [facility] L/S Spine Min 4 Views03-05 L/S Spine Min 4 Views [facility] Imaging Services [address] [place] [address] L/S Spine Min 4 Views MR#: [id number] Acct: [id number] Name: LAYLA HIGUERA Rep #: [id number] : 1950 F 73 From: Jim love DO PCP: GABY Jewell Status: REG CLI Study: L/S Spine Min 4 Views Date of Exam: 03/19/24 Exam# [id number] Ordering Dr: Ximena Sylvester [id number] EXAM: XR LUMBOSACRAL SPINE, 4 OR 5 [...] at 21:27 EDT , CC: GABY Sylvester Business Proposal Rep: Signed Normal [facility] ANTINUCLEAR ANTIBODIES DIREC Ton 03-07-2024 QUINCY,DIRECT Negative Normal Negative [facility] Comment on above: Result Comment: Perf ormed at: [facility] [id number] Hr Representative: John Lopez PhD, Phone: [phone] Performed By: #### L 188.3648, L500.4050, L503.6620, L4600.0100, L100.0100, L300.8000, L3100.5475, L505.7010, L101.9900 #### [facility] [address] [place], [place], [address] CCP IgG Antibodieson 024 CCP IgG Ab. 5 units Normal 0-19 [facility] Comment on above: Result Comment: Nega tive <20 Weak positive 20 - 39 Moderate positive 40 - 59 Strong positive >59 [facility]formed at: [facility] [address] [place], [place] [id number] Hr Representative: John Lopez PhD, Phone: [phone] Performed By: #### L 501.6710, L500.4050, L503.6620, L4600.0100, L100.0100, L300.8000, L3100.5475, L505.7010, L101.9900 #### [facility] [address] [place], [address] Gastroenterology Visit Repor ton 03-06-2024 Gastroenterology Visit Report [facility] [address] [place] [address] OFFICE VISIT Date of Service: 03/06/24 MR#: [id number] Acct: [id number] Name: LAYLA HIGUERA Rep #: [id number] : 1950 Provider: THERESA Camp Age/Sex: 73/F Location: [facility] Status: Signed Intake Vital Signs 10/31/23 14:38 [...] you fallen in the past year?: No [facility] Medical History Current use of manager shell anticoagulation Arterial vascular disease Bilateral buttock pain [...] accident) (09/2014) Atherosclerosis of coronary artery of [place] heart without angina pectoris History of non-ST [...] hyperlipidemia; HTN; DM; CVA; NSTEMI; Ischemic stroke.? [facility] hospitalization 9.15.21-9.17.21 for UTI, N/V, CP, bacteremia. [facility] hospitalization 9.21.21- 9.29.21 for TEODORO. ??? CT abd/pel 9.15.21???with low attenuation along falciform ligament consistent with focal fatty sparing; layering sludge of gallbladder, possibly tiny calculi; small hiatal hernia; colonic diverticulosis; stable wall thic (more content not included)... Normal [facility] BNP,B-Type NATRIURETIC PEPTI Lluvia 03-05-2024 Natriuretic peptide B (Bld) [Mass/Vol] pg/mL Normal 0-100 [facility] Comment on above: Performed By: #### L 501.6710, L500.4050, L503.6620, L4600.0100, L100.0100, L300.8000, L3100.5475, L505.7010, L101.9900 #### [facility] [address] [place], [address] CBC W/Diff, Automatedon 10-0 1-2023 Absolute Lymph 2.62 X10 3/uL Normal 0.83-4.51 [facility] Comment on above: Performed By: #### L 501.6710, L500.4050, L503.6620, L4600.0100, L100.0100, L300.8000, L3100.5475, L505.7010, L101.9900 #### [facility] [address] [place], [address] Absolute Neut 3.1 X10 3/uL Normal 2.0-7.7 [facility] Comment on above: Performed By: #### L 501.6710, L500.4050, L503.6620, L4600.0100, L100.0100, L300.8000, L3100.5475, L505.7010, L101.9900 #### [facility] [address] [place], [address] Basophils/100 WBC (Bld) 0.9 % Normal 0-1 [facility] Comment on above: Performed By: #### L 501.6710, L500.4050, L503.6620, L4600.0100, L100.0100, L300.8000, L3100.5475, L505.7010, L101.9900 #### [facility] [address] [place], [address] Eosinophils/100 WBC (Bld) 2.9 % Normal 0-5 [facility] Comment on above: Performed By: #### L 501.6710, L500.4050, L503.6620, L4600.0100, L100.0100, L300.8000, L3100.5475, L505.7010, L101.9900 #### [facility] [address] [place], [place], [id number] (118 Erythrocyte distribution width (RBC) [Ratio] 13.9 % Normal 11.6-14.6 [facility] Comment on above: Performed By: #### L 501.6710, L500.4050, L503.6620, L4600.0100, L100.0100, L300.8000, L3100.5475, L505.7010, L101.9900 #### [facility] [address] [place], [address] Hematocrit (Bld) [Volume fraction] 37.4 % Normal 37-47 [facility] Comment on above: Performed By: #### L 501.6710, L500.4050, L503.6620, L4600.0100, L100.0100, L300.8000, L3100.5475, L505.7010, L101.9900 #### [facility] [address] [place], [address] ([address]) Hemoglobin (Bld) [Mass/Vol] 11.9 g/dL Low 12.0-15. 0 [facility] Comment on above: Performed By: #### L 501.6710, L500.4050, L503.6620, L4600.0100, L100.0100, L300.8000, L3100.5475, L505.7010, L101.9900 #### [facility] [address] [place], [place], [phone] (841) IG% 0.200 Normal 0.0-0.9 [facility] Comment on above: Result Comment: IG% - Immature Granulocytes (promyelocytes, myelocytes and metamyelocytes) > 1% indicates that a LEFT SHIFT is Present. Performed By: #### L 501.6710, L500.4050, L503.6620, L4600.0100, L100.0100, L300.8000, L3100.5475, L505.7010, L101.9900 #### [facility] [address] [place], [place], [phone] ([phone] Lymphocytes/100 WBC (Bld) 40.2 % Normal 19-41 [facility] Comment on above: Performed By: #### L 501.6710, L500.4050, L503.6620, L4600.0100, L100.0100, L300.8000, L3100.5475, L505.7010, L101.9900 #### [facility] [address] [place], [address] MCH (RBC) [Entitic mass] 28.1 pg Normal 27.0-32.0 [facility] Comment on above: Performed By: #### L 501.6710, L500.4050, L503.6620, L4600.0100, L100.0100, L300.8000, L3100.5475, L505.7010, L101.9900 #### [facility] [address] [facility] [place], [address] MCHC (RBC) [Mass/Vol] 31.8 g/dL Low 32-36 [facility] Comment on above: Performed By: #### L 501.6710, L500.4050, L503.6620, L4600.0100, L100.0100, L300.8000, L3100.5475, L505.7010, L101.9900 #### [facility] [address] [facility] [place], [address] MCV (RBC) [Entitic vol] 88.4 fL Normal 81-99 [facility] Comment on above: Performed By: #### L 501.6710, L500.4050, L503.6620, L4600.0100, L100.0100, L300.8000, L3100.5475, L505.7010, L101.9900 #### [facility] [address] [facility] [place], [address] Monocytes/100 WBC (Bld) 8.4 % Normal 0-10 [facility] Comment on above: Performed By: #### L 501.6710, L500.4050, L503.6620, L4600.0100, L100.0100, L300.8000, L3100.5475, L505.7010, L101.9900 #### [facility] [address] [place], [address] Neutrophils/100 WBC (Bld) 47.4 % Normal 47-70 [facility] Comment on above: Performed By: #### L 501.6710, L500.4050, L503.6620, L4600.0100, L100.0100, L300.8000, L3100.5475, L505.7010, L101.9900 #### [facility] [address] [facility] [place], [address] Nucleated RBC (Bld) [#/Vol] 0 10*3/uL Normal 0-5 [facility] Comment on above: Performed By: #### L 501.6710, L500.4050, L503.6620, L4600.0100, L100.0100, L300.8000, L3100.5475, L505.7010, L101.9900 #### [facility] [address] [facility] [place], [address] Platelet mean volume (Bld) [Entitic vol] 11.9 fL Normal 6.2-12.0 [facility] Comment on above: Performed By: #### L 501.6710, L500.4050, L503.6620, L4600.0100, L100.0100, L300.8000, L3100.5475, L505.7010, L101.9900 #### [facility] [address] [facility] [place], [address] Platelets (Bld) [#/Vol] 258 10*3/uL Normal 150-450 [facility] Comment on above: Performed By: #### L 501.6710, L500.4050, L503.6620, L4600.0100, L100.0100, L300.8000, L3100.5475, L505.7010, L101.9900 #### [facility] [address] [place], [address] RBC (Bld) [#/Vol] 4.23 10*6/uL Normal 4.2-5.4 [facility] Comment on above: Performed By: #### L 501.6710, L500.4050, L503.6620, L4600.0100, L100.0100, L300.8000, L3100.5475, L505.7010, L101.9900 #### [facility] [address] [place], [address] RDW SD 45.0 fl High 35.1-43.9 [facility] Comment on above: Performed By: #### L 501.6710, L500.4050, L503.6620, L4600.0100, L100.0100, L300.8000, L3100.5475, L505.7010, L101.9900 #### [facility] [address] [place], [address] WBC (Bld) [#/Vol] 6.5 10*3/uL Normal 4.4-11.0 [facility] Comment on above: Performed By: #### L 501.6710, L500.4050, L503.6620, L4600.0100, L100.0100, L300.8000, L3100.5475, L505.7010, L101.9900 #### [facility] [address] [place], [address] CRPon 03-05-2024 C-REACTIVE PROT < 2.90 Normal 0.0-3.0 [facility] Comment on above: Result Comment: C-Re active Protein (CRP) provides useful information for the diagnosis, therapy and monitoring of inflammatory processes and associated diseases. For the evaluation of Relative Risk for Cardiovascular Disease, a High Sensitivity CRP (HSCRP) should be ordered. Performed By: #### L 501.6710, L500.4050, L503.6620, L4600.0100, L100.0100, L300.8000, L3100.5475, L505.7010, L101.9900 #### [facility] [address] [place], [address] Comprehensive Metabolic Prof ilon 03-05-2024 Albumin [Mass/Vol] 3.3 g/dL Normal 3.2-5.0 [facility] Comment on above: Performed By: #### L 501.6710, L500.4050, L503.6620, L4600.0100, L100.0100, L300.8000, L3100.5475, L505.7010, L101.9900 #### [facility] [address] [place], [address] Albumin/Globulin [Mass ratio] 0.8 {ratio} Low 0.9-2.4 [facility] Comment on above: Performed By: #### L 501.6710, L500.4050, L503.6620, L4600.0100, L100.0100, L300.8000, L3100.5475, L505.7010, L101.9900 #### [facility] [address] [place], [address] ALK P 81 U/L Normal 45-117 [facility] Comment on above: Performed By: #### L 501.6710, L500.4050, L503.6620, L4600.0100, L100.0100, L300.8000, L3100.5475, L505.7010, L101.9900 #### [facility] [address] [place], [address] ALT [Catalytic activity/Vol] 20 U/L Normal 13-56 [facility] Comment on above: Performed By: #### L 501.6710, L500.4050, L503.6620, L4600.0100, L100.0100, L300.8000, L3100.5475, L505.7010, L101.9900 #### [facility] [address] [place], [address] AST [Catalytic activity/Vol] 8 U/L Low 15-37 [facility] Comment on above: Performed By: #### L 501.6710, L500.4050, L503.6620, L4600.0100, L100.0100, L300.8000, L3100.5475, L505.7010, L101.9900 #### [facility] [address] [place], [address] Bilirubin [Mass/Vol] 0.20 mg/dL Normal 0.20-1.00 [facility] Comment on above: Result Comment: For patients on eltrombopag therapy, use of Dimension [place]on TBIL is not recommended. Performed By: #### L 501.6710, L500.4050, L503.6620, L4600.0100, L100.0100, L300.8000, L3100.5475, L505.7010, L101.9900 #### [facility] [address] [place], [address] BUN/CRE 21.8 RATIO High 10-20 [facility] Comment on above: Performed By: #### L 501.6710, L500.4050, L503.6620, L4600.0100, L100.0100, L300.8000, L3100.5475, L505.7010, L101.9900 #### [facility] [address] [place], [address] CA,Total 9.2 mg/dL Normal 8.5-10.1 [facility] Comment on above: Performed By: #### L 501.6710, L500.4050, L503.6620, L4600.0100, L100.0100, L300.8000, L3100.5475, L505.7010, L101.9900 #### [facility] [address] [place], [address] Chloride [Moles/Vol] 104 mmol/L Normal 98-107 [facility] Comment on above: Performed By: #### L 501.6710, L500.4050, L503.6620, L4600.0100, L100.0100, L300.8000, L3100.5475, L505.7010, L101.9900 #### [facility] [address] [place], [address] CO2 [Moles/Vol] 26.0 mmol/L Normal 21.0-32.0 [facility] Comment on above: Performed By: #### L 501.6710, L500.4050, L503.6620, L4600.0100, L100.0100, L300.8000, L3100.5475, L505.7010, L101.9900 #### [facility] [address] [place], [address] Creatinine [Mass/Vol] 0.87 mg/dL Normal 0.55-1.02 [facility] Comment on above: Result Comment: The validity of the calculated GFR GFRAA in patients over 70 years has not been determined. Clinical correlation is essential. Performed By: #### L 501.6710, L500.4050, L503.6620, L4600.0100, L100.0100, L300.8000, L3100.5475, L505.7010, L101.9900 #### [facility] [address] [place], [address] EST GFR - AA 82 mL/min Normal >60 [facility] Comment on above: Result Comment: Afri can Fijian GFR Calc Performed By: #### L 501.6710, L500.4050, L503.6620, L4600.0100, L100.0100, L300.8000, L3100.5475, L505.7010, L101.9900 #### [facility] [address] [place], [address] GAP 6 Normal 5-15 [facility] Comment on above: Performed By: #### L 501.6710, L500.4050, L503.6620, L4600.0100, L100.0100, L300.8000, L3100.5475, L505.7010, L101.9900 #### [facility] [address] [place], [address] GFR/1.73 sq M.predicted among non-blacks MDRD (S/P/Bld) [Vol rate/Area] 67 mL/min/{1.73_m2} Normal >60 [facility] Comment on above: Result Comment: Non- GFR Calc Performed By: #### L 501.6710, L500.4050, L503.6620, L4600.0100, L100.0100, L300.8000, L3100.5475, L505.7010, L101.9900 #### [facility] [address] [place], [address] Globulin (S) [Mass/Vol] 4.0 g/dL Normal 2.2-4.2 [facility] Comment on above: Performed By: #### L 501.6710, L500.4050, L503.6620, L4600.0100, L100.0100, L300.8000, L3100.5475, L505.7010, L101.9900 #### [facility] [address] [place], [address] Glucose [Mass/Vol] 170 mg/dL High 74-106 [facility] Comment on above: Result Comment: Fast ing Glucose result greater than or equal to 126 mg/dL suggests DIABETES MELLITUS per A.D.A. criteria. Performed By: #### L 501.6710, L500.4050, L503.6620, L4600.0100, L100.0100, L300.8000, L3100.5475, L505.7010, L101.9900 #### [facility] [address] [place], [address] Potassium [Moles/Vol] 4.0 mmol/L Normal 3.5-5.1 [facility] Comment on above: Performed By: #### L 501.6710, L500.4050, L503.6620, L4600.0100, L100.0100, L300.8000, L3100.5475, L505.7010, L101.9900 #### [facility] [address] [place], [address] Sodium [Moles/Vol] 136 mmol/L Normal 136-145 [facility] Comment on above: Performed By: #### L 501.6710, L500.4050, L503.6620, L4600.0100, L100.0100, L300.8000, L3100.5475, L505.7010, L101.9900 #### [facility] [address] [place], [address] T PROT 7.3 g/dL Normal 6.4-8.2 [facility] Comment on above: Performed By: #### L 501.6710, L500.4050, L503.6620, L4600.0100, L100.0100, L300.8000, L3100.5475, L505.7010, L101.9900 #### [facility] [address] [place], [address] Urea nitrogen [Mass/Vol] 19 mg/dL High 7-18 [facility] Comment on above: Performed By: #### L 501.6710, L500.4050, L503.6620, L4600.0100, L100.0100, L300.8000, L3100.5475, L505.7010, L101.9900 #### [facility] [address] [place], [address] D-Dimer Quantitative (DVT/PE )on 03-05-2024 D-DIMER QUANT 1.40 FEU/ug/m Invalid Interpretation Code 0.27-0.49 [facility] Comment on above: Order Comment: CRITI STEPHANIE VALUE CALLED TO XIMENA SYLVESTER 03/05/24 1845 Tere Mccann. RESULTS READ BACK BY SAME. Result Comment: D-Di elton ELEVATED (>0.49): Additional studies and clinical assessments are indicated to conclude diagnosis of: Deep Vein Thrombosis (DVT) or Pulmonary Embolism (PE) Performed By: #### L 501.6710, L500.4050, L503.6620, L4600.0100, L100.0100, L300.8000, L3100.5475, L505.7010, L101.9900 #### [facility] [address] [place], [address] Erythrocyte Sed Rateon 03-05 SED RATE 38 mm/hr High 0-30 [facility] Comment on above: Performed By: #### L 501.6710, L500.4050, L503.6620, L4600.0100, L100.0100, L300.8000, L3100.5475, L505.7010, L101.9900 #### [facility] [address] [place], [address] Rheumatoid Factoron 03-05-20 24 RHEUMATOID FAC < 10.0 Normal <15 [facility] Comment on above: Performed By: #### L 501.6710, L500.4050, L503.6620, L4600.0100, L100.0100, L300.8000, L3100.5475, L505.7010, L101.9900 #### [facility] [address] [place], [address] CBC W/Diff, Automatedon 08-0 Absolute Lymph 2.70 X10 3/uL Normal 0.83-4.51 [facility] Comment on above: Performed By: #### L 501.6710, L500.4050, L503.6620, L4600.0100, L100.0100, L300.8000, L3100.5475, L505.7010, L101.9900 #### [facility] [address] [place], [address] Absolute Neut 2.8 X10 3/uL Normal 2.0-7.7 [facility] Comment on above: Performed By: #### L 501.6710, L500.4050, L503.6620, L4600.0100, L100.0100, L300.8000, L3100.5475, L505.7010, L101.9900 #### [facility] [address] [facility] [place], [address] Basophils/100 WBC (Bld) 1.1 % High 0-1 [facility] Comment on above: Performed By: #### L 501.6710, L500.4050, L503.6620, L4600.0100, L100.0100, L300.8000, L3100.5475, L505.7010, L101.9900 #### [facility] [address] [facility] [place], [address] Eosinophils/100 WBC (Bld) 3.0 % Normal 0-5 [facility] Comment on above: Performed By: #### L 501.6710, L500.4050, L503.6620, L4600.0100, L100.0100, L300.8000, L3100.5475, L505.7010, L101.9900 #### [facility] [address] [facility] [place], [address] Erythrocyte distribution width (RBC) [Ratio] 13.8 % Normal 11.6-14.6 [facility] Comment on above: Performed By: #### L 501.6710, L500.4050, L503.6620, L4600.0100, L100.0100, L300.8000, L3100.5475, L505.7010, L101.9900 #### [facility] [address] [place], [address] Hematocrit (Bld) [Volume fraction] 39.2 % Normal 37-47 [facility] Comment on above: Performed By: #### L 501.6710, L500.4050, L503.6620, L4600.0100, L100.0100, L300.8000, L3100.5475, L505.7010, L101.9900 #### [facility] [address] [place], [address] Hemoglobin (Bld) [Mass/Vol] 12.1 g/dL Normal 12.0-15. 0 [facility] Comment on above: Performed By: #### L 501.6710, L500.4050, L503.6620, L4600.0100, L100.0100, L300.8000, L3100.5475, L505.7010, L101.9900 #### [facility] [address] [place], [address] IG% 0.200 Normal 0.0-0.9 [facility] Comment on above: Result Comment: IG% - Immature Granulocytes (promyelocytes, myelocytes and metamyelocytes) > 1% indicates that a LEFT SHIFT is Present. Performed By: #### L 501.6710, L500.4050, L503.6620, L4600.0100, L100.0100, L300.8000, L3100.5475, L505.7010, L101.9900 #### [facility] [address] [place], [address] Lymphocytes/100 WBC (Bld) 42.9 % High 19-41 [facility] Comment on above: Performed By: #### L 501.6710, L500.4050, L503.6620, L4600.0100, L100.0100, L300.8000, L3100.5475, L505.7010, L101.9900 #### [facility] [address] [place], [address] MCH (RBC) [Entitic mass] 27.4 pg Normal 27.0-32.0 [facility] Comment on above: Performed By: #### L 501.6710, L500.4050, L503.6620, L4600.0100, L100.0100, L300.8000, L3100.5475, L505.7010, L101.9900 #### [facility] [address] [place], [address] MCHC (RBC) [Mass/Vol] 30.9 g/dL Low 32-36 [facility] Comment on above: Performed By: #### L 501.6710, L500.4050, L503.6620, L4600.0100, L100.0100, L300.8000, L3100.5475, L505.7010, L101.9900 #### [facility] [address] [place], [address] MCV (RBC) [Entitic vol] 88.9 fL Normal 81-99 [facility] Comment on above: Performed By: #### L 501.6710, L500.4050, L503.6620, L4600.0100, L100.0100, L300.8000, L3100.5475, L505.7010, L101.9900 #### [facility] [address] [place], [address] Monocytes/100 WBC (Bld) 8.3 % Normal 0-10 [facility] Comment on above: Performed By: #### L 501.6710, L500.4050, L503.6620, L4600.0100, L100.0100, L300.8000, L3100.5475, L505.7010, L101.9900 #### [facility] [address] [place], [address] Neutrophils/100 WBC (Bld) 44.5 % Low 47-70 [facility] Comment on above: Performed By: #### L 501.6710, L500.4050, L503.6620, L4600.0100, L100.0100, L300.8000, L3100.5475, L505.7010, L101.9900 #### [facility] [address] [place], [address] Nucleated RBC (Bld) [#/Vol] 0 10*3/uL Normal 0-5 [facility] Comment on above: Performed By: #### L 501.6710, L500.4050, L503.6620, L4600.0100, L100.0100, L300.8000, L3100.5475, L505.7010, L101.9900 #### [facility] [address] [place], [address] Platelet mean volume (Bld) [Entitic vol] 12.0 fL Normal 6.2-12.0 [facility] Comment on above: Performed By: #### L 501.6710, L500.4050, L503.6620, L4600.0100, L100.0100, L300.8000, L3100.5475, L505.7010, L101.9900 #### [facility] [address] [place], [address] Platelets (Bld) [#/Vol] 253 10*3/uL Normal 150-450 [facility] Comment on above: Performed By: #### L 501.6710, L500.4050, L503.6620, L4600.0100, L100.0100, L300.8000, L3100.5475, L505.7010, L101.9900 #### [facility] [address] [place], [address] RBC (Bld) [#/Vol] 4.41 10*6/uL Normal 4.2-5.4 [facility] Comment on above: Performed By: #### L 501.6710, L500.4050, L503.6620, L4600.0100, L100.0100, L300.8000, L3100.5475, L505.7010, L101.9900 #### [facility] [address] [place], [place], [id number] (676) RDW SD 45.1 fl High 35.1-43.9 [facility] Comment on above: Performed By: #### L 501.6710, L500.4050, L503.6620, L4600.0100, L100.0100, L300.8000, L3100.5475, L505.7010, L101.9900 #### [facility] [address] [place], [place], [id number] (122) WBC (Bld) [#/Vol] 6.3 10*3/uL Normal 4.4-11.0 [facility] Comment on above: Performed By: #### L 501.6710, L500.4050, L503.6620, L4600.0100, L100.0100, L300.8000, L3100.5475, L505.7010, L101.9900 #### [facility] [address] [place], [place], [id number] Comprehensive Metabolic Prof mdon 01-05-2024 Albumin [Mass/Vol] 3.4 g/dL Normal 3.2-5.0 [facility] Comment on above: Performed By: #### L 501.6710, L500.4050, L503.6620, L4600.0100, L100.0100, L300.8000, L3100.5475, L505.7010, L101.9900 #### [facility] [address] [place], [place], [id number] (006) Albumin/Globulin [Mass ratio] 0.8 {ratio} Low 0.9-2.4 [facility] Comment on above: Performed By: #### L 501.6710, L500.4050, L503.6620, L4600.0100, L100.0100, L300.8000, L3100.5475, L505.7010, L101.9900 #### [facility] [address] [place], [address] ALK P 84 U/L Normal 45-117 [facility] Comment on above: Performed By: #### L 501.6710, L500.4050, L503.6620, L4600.0100, L100.0100, L300.8000, L3100.5475, L505.7010, L101.9900 #### [facility] [address] [place], [address] ALT [Catalytic activity/Vol] 18 U/L Normal 13-56 [facility] Comment on above: Performed By: #### L 501.6710, L500.4050, L503.6620, L4600.0100, L100.0100, L300.8000, L3100.5475, L505.7010, L101.9900 #### [facility] [address] [place], [address] AST [Catalytic activity/Vol] 13 U/L Low 15-37 [facility] Comment on above: Performed By: #### L 501.6710, L500.4050, L503.6620, L4600.0100, L100.0100, L300.8000, L3100.5475, L505.7010, L101.9900 #### [facility] [address] [place], [address] Bilirubin [Mass/Vol] 0.30 mg/dL Normal 0.20-1.00 [facility] Comment on above: Result Comment: For patients on eltrombopag therapy, use of Dimension [place] TBIL is not recommended. Performed By: #### L 501.6710, L500.4050, L503.6620, L4600.0100, L100.0100, L300.8000, L3100.5475, L505.7010, L101.9900 #### [facility] [address] [place], [address] BUN/CRE 25.2 RATIO High 10-20 [facility] Comment on above: Performed By: #### L 501.6710, L500.4050, L503.6620, L4600.0100, L100.0100, L300.8000, L3100.5475, L505.7010, L101.9900 #### [facility] [address] [place], [address] CA,Total 8.9 mg/dL Normal 8.5-10.1 [facility] Comment on above: Performed By: #### L 501.6710, L500.4050, L503.6620, L4600.0100, L100.0100, L300.8000, L3100.5475, L505.7010, L101.9900 #### [facility] [address] [place], [address] Chloride [Moles/Vol] 105 mmol/L Normal 98-107 [facility] Comment on above: Performed By: #### L 501.6710, L500.4050, L503.6620, L4600.0100, L100.0100, L300.8000, L3100.5475, L505.7010, L101.9900 #### [facility] [address] [place], [address] CO2 [Moles/Vol] 27.0 mmol/L Normal 21.0-32.0 [facility] Comment on above: Performed By: #### L 501.6710, L500.4050, L503.6620, L4600.0100, L100.0100, L300.8000, L3100.5475, L505.7010, L101.9900 #### [facility] [address] [place], [address] Creatinine [Mass/Vol] 0.87 mg/dL Normal 0.55-1.02 [facility] Comment on above: Result Comment: The validity of the calculated GFR GFRAA in patients over 70 years has not been determined. Clinical correlation is essential. Performed By: #### L 501.6710, L500.4050, L503.6620, L4600.0100, L100.0100, L300.8000, L3100.5475, L505.7010, L101.9900 #### [facility] [address] [place], [address] EST GFR - AA 82 mL/min Normal >60 [facility] Comment on above: Result Comment: Afri can Fijian GFR Calc Performed By: #### L 501.6710, L500.4050, L503.6620, L4600.0100, L100.0100, L300.8000, L3100.5475, L505.7010, L101.9900 #### [facility] [address] [place], [address] GAP 6 Normal 5-15 [facility] Comment on above: Performed By: #### L 501.6710, L500.4050, L503.6620, L4600.0100, L100.0100, L300.8000, L3100.5475, L505.7010, L101.9900 #### [facility] [address] [place], [address] GFR/1.73 sq M.predicted among non-blacks MDRD (S/P/Bld) [Vol rate/Area] 67 mL/min/{1.73_m2} Normal >60 [facility] Comment on above: Result Comment: Non- GFR Calc Performed By: #### L 501.6710, L500.4050, L503.6620, L4600.0100, L100.0100, L300.8000, L3100.5475, L505.7010, L101.9900 #### [facility] [address] [place], [address] Globulin (S) [Mass/Vol] 4.1 g/dL Normal 2.2-4.2 [facility] Comment on above: Performed By: #### L 501.6710, L500.4050, L503.6620, L4600.0100, L100.0100, L300.8000, L3100.5475, L505.7010, L101.9900 #### [facility] [address] [place], [address] Glucose [Mass/Vol] 130 mg/dL High 74-106 [facility] Comment on above: Result Comment: Fast ing Glucose result greater than or equal to 126 mg/dL suggests DIABETES MELLITUS per A.D.A. criteria. Performed By: #### L 501.6710, L500.4050, L503.6620, L4600.0100, L100.0100, L300.8000, L3100.5475, L505.7010, L101.9900 #### [facility] [address] [place], [address] Potassium [Moles/Vol] 4.2 mmol/L Normal 3.5-5.1 [facility] Comment on above: Performed By: #### L 501.6710, L500.4050, L503.6620, L4600.0100, L100.0100, L300.8000, L3100.5475, L505.7010, L101.9900 #### [facility] [address] [place], [address] Sodium [Moles/Vol] 138 mmol/L Normal 136-145 [facility] Comment on above: Performed By: #### L 501.6710, L500.4050, L503.6620, L4600.0100, L100.0100, L300.8000, L3100.5475, L505.7010, L101.9900 #### [facility] [address] [place], [address] T PROT 7.5 g/dL Normal 6.4-8.2 [facility] Comment on above: Performed By: #### L 501.6710, L500.4050, L503.6620, L4600.0100, L100.0100, L300.8000, L3100.5475, L505.7010, L101.9900 #### [facility] [address] [place], [address] Urea nitrogen [Mass/Vol] 22 mg/dL High 7-18 [facility] Comment on above: Performed By: #### L 501.6710, L500.4050, L503.6620, L4600.0100, L100.0100, L300.8000, L3100.5475, L505.7010, L101.9900 #### [facility] [address] [place], [address] Ferritinon 01-05-2024 Ferritin [Mass/Vol] 41 ng/mL Normal 8-252 [facility] Comment on above: Performed By: #### L 501.6710, L500.4050, L503.6620, L4600.0100, L100.0100, L300.8000, L3100.5475, L505.7010, L101.9900 #### [facility] [address] [place], [address] Ironon 01-05-2024 Iron [Mass/Vol] 56 ug/dL Normal 50-170 [facility] Comment on above: Performed By: #### L 501.6710, L500.4050, L503.6620, L4600.0100, L100.0100, L300.8000, L3100.5475, L505.7010, L101.9900 #### [facility] [address] [place], [address] Lipid Profileon 01-05-2024 Cholesterol [Mass/Vol] 269 mg/dL High 200 [facility] Comment on above: Result Comment: <200 mg/dL Desirable 200-240 mg/dL Borderline >240 mg/dL High Risk Performed By: #### L 501.6710, L500.4050, L503.6620, L4600.0100, L100.0100, L300.8000, L3100.5475, L505.7010, L101.9900 #### [facility] [address] [place], [address] Cholesterol in HDL [Mass/Vol] 42 mg/dL Normal [facility] Comment on above: Result Comment: The drugs N-Acetylcysteine and Metamizole may falsely depress this assay. Reference Range HDL <40 mg/dL Low HDL Cholesterol HDL >or= 60 mg/dL High HDL Cholesterol Performed By: #### L 501.6710, L500.4050, L503.6620, L4600.0100, L100.0100, L300.8000, L3100.5475, L505.7010, L101.9900 #### [facility] [address] [place], [address] Cholesterol in LDL [Mass/Vol] 197 mg/dL High 0-130 [facility] Comment on above: Performed By: #### L 501.6710, L500.4050, L503.6620, L4600.0100, L100.0100, L300.8000, L3100.5475, L505.7010, L101.9900 #### [facility] [address] [place], [address] Cholesterol in VLDL [Mass/Vol] 30 mg/dL Normal 5-40 [facility] Comment on above: Performed By: #### L 501.6710, L500.4050, L503.6620, L4600.0100, L100.0100, L300.8000, L3100.5475, L505.7010, L101.9900 #### [facility] [address] [place], [address] Triglyceride [Mass/Vol] 149 mg/dL Normal [facility] Comment on above: Result Comment: The drugs N-Acetylcysteine and Metamizole may falsely depress this assay. Serum Triglycerides Reference Interval Normal <150 mg/dL Borderline high 150 - 199 mg/dL High 200 - 499 mg/dL Very High > or = 500 mg/dL Performed By: #### L 501.6710, L500.4050, L503.6620, L4600.0100, L100.0100, L300.8000, L3100.5475, L505.7010, L101.9900 #### [facility] [address] [place], [address] T4 Free Directon 01-05-2024 T4 FREE DIRECT 0.92 ng/dL Normal 0.76-1.46 [facility] Comment on above: Performed By: #### L 501.6710, L500.4050, L503.6620, L4600.0100, L100.0100, L300.8000, L3100.5475, L505.7010, L101.9900 #### [facility] [address] [facility] [place], [address] Thyroid Stim Hormone (TSH)on 01-05-2024 TSH 2.66 uIU/mL Normal 0.358-3.74 [facility] Comment on above: Performed By: #### L 501.6710, L500.4050, L503.6620, L4600.0100, L100.0100, L300.8000, L3100.5475, L505.7010, L101.9900 #### [facility] [address] [place], [address] Vitamin B12on 01-05-2024 Cobalamin (Vitamin B12) [Mass/Vol] 1214 pg/mL High 211-911 [facility] Comment on above: Performed By: #### L 501.6710, L500.4050, L503.6620, L4600.0100, L100.0100, L300.8000, L3100.5475, L505.7010, L101.9900 #### [facility] [address] [place], [address] Vitamin D,25 Hydroxyon 01-04 Vitamin D 25-OH 37.7 ng/mL Normal [facility] Comment on above: Result Comment: Meche min D 25(OH) Status Range Deficiency <20 ng/mL (50nmol/L) Insufficiency 20 - 30 ng/mL (50 - 75 nmol/L) Sufficiency 30 - 100 ng/mL (75 - 250 nmol/L) Toxicity >100 ng/mL (>250 nmol/L) Performed By: #### L 501.6710, L500.4050, L503.6620, L4600.0100, L100.0100, L300.8000, L3100.5475, L505.7010, L101.9900 #### [facility] [address] [place], [place], [address] CNOVon 09-26-2023 CNOV Office Visit (OBGYWM) LAYLA HIGUERA ([id number]) 1950 F Date Time Provider Department 09/26/23 3:10 PM AGUSTINA HIRSCH OBGYWDomitila During your visit today, we recorded the following information about you: Blood pressure Weight 102/64 78.6 kg Agustina Hirsch MD 09/26/2023 3:45 PM Signed 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 Layla Higuera is a 73 year old female who presents for problem visit. HPI: Patient presents with vulvar irritation for 1 year. She reports taking florajens. She changes a pull up about 3 times per day. She is not using any creams currently. Also she has been told that she has prolapse. 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 [place] History LMP: Postmenopausal Age at Menarche: Age at First : Age at Menopause: [place] History Comments: Sexual Activity: Not Asked; No partner data on record Contraception: No contraception data on record PAST MEDICAL HISTORY Diagnosis Date Aortic sclerosis Aspiration pneumonia ([facility]) Following CVA. CAD (coronary artery disease) COPD (chronic obstructive pulmonary disease) ([facility]) 03/18/2013 Stage 0. Normal FEV1 03/2013. 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 Stroke ([facility]) SUMMARY 10/14/2014 Ms Layla Higuera is a [...] on 08-04-2023 Chloride [Moles/Vol] 110 mmol/L 98-107 [facility] Glucose [Mass/Vol] 108 mg/dL 74-106 [facility] Comment on above: Fasting Glucose resu lt from 100 to 125 mg/dL suggests IMPAIRED HOMEOSTASIS per A.D.A. criteria. Hemoglobin (Bld) [Mass/Vol] 12.2 g/dL 12.0-15. 0 [facility] Potassium [Moles/Vol] 4.0 mmol/L 3.5-5.1 [facility] Sodium [Moles/Vol] 140 mmol/L 136-145 [facility] WBC (Bld) [#/Vol] 6.4 10*3/uL 4.4-11.0 [facility] Determination of erythrocyte mean corpuscular volume (MCV)Ordered By: Deshawn Camarena on 08-04-2023 MCV (RBC) [Entitic vol] 89.8 fL 81-99 [facility] Erythrocyte distribution wid th ratioOrdered By: Deshawn Camarena on 08-04-2023 Erythrocyte distribution width (RBC) [Ratio] 14.0 % 11.6-14.6 [facility] Erythrocyte distribution wid th standard deviationOrdered By: Deshawn Camarena on 08-04-2023 Erythrocyte distribution width (RBC) [Entitic vol] 45.9 fL 35.1-43.9 [facility] Hematocrit Auto (Bld) [Volum e fraction]Ordered By: Deshawn Camarena on 08-04-2023 Hematocrit (Bld) [Volume fraction] 38.0 % 37-47 [facility] - Chemistry and C hemistry - challengeOrdered By: Deshawn Camarena on 08-04-2023 CO2 [Moles/Vol] 28.0 mmol/L 21.0-32.0 [facility] Urea nitrogen/Creatinine [Mass ratio] 24.9 mg/mg 10-20 [facility] - Hematology and Cell countsOrdered By: Deshawn Camarena on 08-04-2023 MCH (RBC) [Entitic mass] 28.8 pg 27.0-32.0 [facility] MCHC (RBC) [Mass/Vol] 32.1 g/dL 32-36 [facility] Platelet mean volume (Bld) [Entitic vol] 11.9 fL 6.2-12.0 [facility] Platelets (Bld) [#/Vol] 245 10*3/uL 150-450 [facility] No Panel InformationOrdered By: Deshawn Camarena on 08-04-2023 Estimated GFR (MDRD) Amer 85 mL/min >60 [facility] Comment on above: GFR Calc Estimated GFR (MDRD) Non-Af Amer 70 mL/min >60 [facility] Comment on above: Non- GFR Calc RBC Auto (Bld) [#/Vol]Ordere d By: Deshawn Camarena on 08-04-2023 RBC (Bld) [#/Vol] 4.23 10*6/uL 4.2-5.4 [facility] Serum or plasma calcium yuniel urement (mass/volume)Ordered By: Deshawn Camarena on 08-04-2023 Calcium [Mass/Vol] 9.3 mg/dL 8.5-10.1 [facility] Serum or plasma creatinine m easurement (mass/volume)Ordered By: Deshawn Camarena on 08-04-2023 Creatinine [Mass/Vol] 0.84 mg/dL 0.55-1.02 [facility] Comment on above: The validity of the calculated GFR & GFRAA in patients over 70 years has not been determined. Clinical correlation is essential. Serum or plasma urea nitroge n measurement (mass/volume)Ordered By: Deshawn Camarena on 08-04-2023 Urea nitrogen [Mass/Vol] 21 mg/dL 7-18 [facility] Thin prep Papanicolaou smear with manual screeningOrdered By: Deshawn Camarena on 08-04-2023 Thin prep Papanicolaou smear with manual screening 2 5-15 [facility] XR HAND GENERAL 3V PA/LAT/OB L BILATERALon 03-09-2023 [facility] LUNG DIFFUSION CAPACITY (TAE O)on 02-21-2023 DLCO (ml/min/mmHg) 15.95 ml/min/mmHg [facility] DLCO/VA (ml/min/mmHg/L) 4.68 ml/min/mmHg/L [facility] XHY59-45% PRE (L/S) 0.89 L/S [facility] FEV1 PRE (L) 1.38 L [facility] FEV1/FVC PRE (%) 71 % [facility] FVC PRE (L) 1.94 L [facility] PEF PRE (L/S) 3.64 L/S [facility] VA (L) 3.41 L [facility] SPIROMETRY WITH DILATOR IF O BSTRUCTEDon 02-21-2023 [facility] Culture, urineOrdered By: Amos Green on 01-05-2023 Bacteria identified Cx Nom (U) Proteus mirabilis [facility] Culture, urineOrdered By: Amos Green on 12-20-2022 Bacteria identified Cx Nom (U) Proteus mirabilis [facility] Bacteria identified Cx Nom (U) Escherichia coli [facility] No Panel InformationOrdered By: Philip Drummond on 11-29-2022 Stool Calprotectin 107 ug/g 0-120 [facility] Comment on above: Concentration Interp retation Follow-Up< 5 - 50 ug/g Normal None>50 -120 ug/g Borderline Re-evaluate in 4-6 weeks >120 ug/g Abnormal Repeat as clinically indicatedPerformed at: [facility] [id number] Director: John Lopez PhD, Phone: [phone] at: [facility] [id number] Director: Ángel Jones MD, Phone: [phone] Stool Neutral Fats Normal . [facility] Comment on above: Normal (<60 Droplets /HPF) Stool Pancreatic Elastase 220 >200 [facility] Comment on above: Result Units: ug [address] st./g Severe Pancreatic Insufficiency: <100 Moderate Pancreatic Insufficiency: 100 - 200 Normal: >200Performed at: [facility] [id number] Director: Ángel Jones MD, Phone: [phone] Qualitative fecal fat or lip idsOrdered By: Philip Drummond on 11-29-2022 Fat Ql (Stl) Normal . [facility] Comment on above: Normal (<100 Droplet s/HPF) Stool lactoferrin detection by immunoassayOrdered By: Philip Drummond on 11-29-2022 Lactoferrin IA Ql (Stl) [facility] Absolute lymphocyte countOrd ered By: Philip Drummond on 11-15-2022 Lymphocytes Auto (Unsp spec) [#/Vol] 1.98 10*3/uL 0.83-4.51 [facility] Atypical perinuclear antineu trophil cytoplasmic antibodies measurementOrdered By: Philip Drummond on 11-15-2022 Neutrophil cytoplasmic Ab.perinuclear.atypical IF (S) [Titer] <1:20 titer Neg:<1:20 [facility] Comment on above: The atypical pANCA p attern has been observed in asignificant percentage of patients with ulcerative colitis,primary sclerosing cholangitis and autoimmune hepatitis.Performed at: [facility] [id number] Director: John Lopez PhD, Phone: [phone] at: [facility]Unsocial[address] [id number] Director: Ángel Jones MD, Phone: [phone] Basophil percentageOrdered B y: Philip Drummond on 11-15-2022 Basophil percentage < 0.2 AI 0.0-0.9 [facility] Basophils/100 WBC (Bld) 0.5 % 0-1 [facility] Bilirubin [Mass/Vol] 0.30 mg/dL 0.20-1.00 [facility] Comment on above: For patients on eltr ombopag therapy, use of Dimension [place] TBIL is not recommended. Chloride [Moles/Vol] 104 mmol/L 98-107 [facility] Cholesterol [Mass/Vol] 168 mg/dL <200 [facility] Comment on above: <200 mg/dL Desirable 200-240 mg/dL Borderline >240 mg/dL High Risk Eosinophils/100 WBC (Bld) 1.6 % 0-5 [facility] Glucose [Mass/Vol] 212 mg/dL 74-106 [facility] Comment on above: Glucose result great er than or equal to 200 mg/dLsuggests DIABETES MELLITUS per A.D.A. criteria. LDH [Catalytic activity/Vol] 206 U/L 84-246 [facility] Neutrophils (Bld) [#/Vol] 4.9 10*3/uL 2.0-7.7 [facility] Neutrophils/100 WBC (Bld) 65.2 % 47-70 [facility] Potassium [Moles/Vol] 4.4 mmol/L 3.5-5.1 [facility] Protein [Mass/Vol] 7.9 g/dL 6.4-8.2 [facility] Sodium [Moles/Vol] 138 mmol/L 136-145 [facility] Triglyceride [Mass/Vol] 145 mg/dL <199 [facility] Comment on above: The drugs N-Acetylcy steine and Metamizole may falsely depress this assay.Serum Triglycerides Reference Interval Normal <150 mg/dL Borderline high 150 - 199 mg/dL High 200 - 499 mg/dL Very High > or = 500 mg/dL WBC (Bld) [#/Vol] 7.4 10*3/uL 4.4-11.0 [facility] Blood erythrocytes count (nu mber/volume)Ordered By: Philip Drummond on 11-15-2022 RBC (Bld) [#/Vol] 4.57 10*6/uL 4.2-5.4 [facility] Blood hemoglobin measurement (mass/volume)Ordered By: Philip Drummond on 11-15-2022 Hemoglobin (Bld) [Mass/Vol] 12.9 g/dL 12.0-15. 0 [facility] Blood lymphocytes/100 leukoc ytesOrdered By: Philip Drummond on 11-15-2022 Lymphocytes/100 WBC (Bld) 26.6 % 19-41 [facility] Blood monocytes/100 leukocyt esOrdered By: Philip Drummond on 11-15-2022 Monocytes/100 WBC (Bld) 5.8 % 0-10 [facility] Blood platelet mean volumeOr dered By: Philip Drummond on 11-15-2022 Platelet mean volume (Bld) [Entitic vol] 12.4 fL 6.2-12.0 [facility] Determination of erythrocyte mean corpuscular volume (MCV)Ordered By: Philip Drummond on 11-15-2022 MCV (RBC) [Entitic vol] 89.9 fL 81-99 [facility] Erythrocyte sedimentation ra teOrdered By: Philip Drummond on 11-15-2022 ESR (Bld) [Velocity] 25 mm/h 0-30 [facility] Hematocrit Auto (Bld) [Volum e fraction]Ordered By: Phiilp Drummond on 11-15-2022 Hematocrit (Bld) [Volume fraction] 41.1 % 37-47 [facility] Interpretation of serum or p lasma protein pattern by immunofixation (narrative resultOrdered By: Philip Drummond on 11-15-2022 Protein Fractions Immunofixation Douglas [Interp] See comment [facility] Comment on above: Result: Not Observed Laboratory - Chemistry and C hemistry - challengeOrdered By: Philip Drummond on 11-15-2022 ALP [Catalytic activity/Vol] 86 U/L 45-117 [facility] ALT [Catalytic activity/Vol] 25 U/L 13-56 [facility] CO2 [Moles/Vol] 27.0 mmol/L 21.0-32.0 [facility] Globulin (S) [Mass/Vol] 4.1 g/dL 2.2-4.2 [facility] Urea nitrogen/Creatinine [Mass ratio] 26.9 mg/mg 10-20 [facility] - Hematology and Cell countsOrdered By: Philip Drummond on 11-15-2022 Erythrocyte distribution width (RBC) [Entitic vol] 45.2 fL 35.1-43.9 [facility] Erythrocyte distribution width (RBC) [Ratio] 13.8 % 11.6-14.6 [facility] Immature granulocytes/100 WBC (Bld) 0.300 % 0.0-0.9 [facility] Comment on above: IG% - Immature Granu locytes (promyelocytes, myelocytes and metamyelocytes) > 1% indicates that a LEFT SHIFT is Present. MCH (RBC) [Entitic mass] 28.2 pg 27.0-32.0 [facility] Nucleated RBC/100 WBC (Bld) [Ratio] 0 % 0-5 [facility] MCHC Auto (RBC) [Mass/Vol]Or dered By: Philip Drummond on 11-15-2022 MCHC (RBC) [Mass/Vol] 31.4 g/dL 32-36 [facility] No Panel InformationOrdered By: Philip Drummond on 11-15-2022 Vitamin D 25-Hydroxy 41.3 ng/mL [facility] Comment on above: Vitamin D 25(OH) Sta tus Range Deficiency <20 ng/mL (50nmol/L) Insufficiency 20 - 30 ng/mL (50 - 75 nmol/L) Sufficiency 30 - 100 ng/mL (75 - 250 nmol/L) Toxicity >100 ng/mL (>250 nmol/L) Addendum Document Comment . [facility] Comment on above: Protein electrophore sis scan will follow via computer,mail, or power engineer delivery. Centromere B Antibody <0.2 AI 0.0-0.9 [facility] Endomysial IgA Antibody Negative Negative [facility] Estimated GFR (MDRD) Amer 73 mL/min >60 [facility] Comment on above: GFR Calc Estimated GFR (MDRD) Non-Af Amer 60 mL/min >60 [facility] Comment on above: Non- GFR Calc Immunoglobulin E 132 IU/mL 6-495 [facility] ACCOUNT RESOLUTION ANALYST Antibody <0.2 AI 0.0-0.9 [facility] Thyroid Stimulating Hormone (TSH) 2.02 uIU/mL 0.358-3.74 [facility] Platelets bldOrdered By: Anand Drummond on 11-15-2022 Platelets (Bld) [#/Vol] 258 10*3/uL 150-450 [facility] Serum DNA double strand anti body assay (units/volume)Ordered By: Philip Drummond on 11-15-2022 DNA double strand Ab Qn (S) [IU]/mL 0-9 [facility] Comment on above: Negative <5 Equivoca l 5 - 9 Positive >9 Serum IgA measurement (units /volume)Ordered By: Philip Drummond on 11-15-2022 IgA Qn (S) 411 mg/dL 64-422 [facility] Comment on above: Performed at: [address] [id number] Director: John Lopez PhD, Phone: [phone] Serum Beckie-1 antibody assay (u nits/volume)Ordered By: Philip Drummond on 11-15-2022 Beckie-1 extractable nuclear Ab Qn (S) <0.2 AI 0.0-0.9 [facility] Serum Scl-70 extractable nuc lear antibody assay (units/volume)Ordered By: Philip Drummond on 11-15-2022 SCL-70 extractable nuclear Ab Qn (S) <0.2 AI 0.0-0.9 [facility] Serum Hawk extractable nucl ear antibody detectionOrdered By: Philip Drummond on 11-15-2022 Hawk extractable nuclear Ab Ql (S) <0.2 AI 0.0-0.9 [facility] Serum [id number] measu rement by electrophoresisOrdered By: Philip Drummond on 11-15-2022 Alpha 1 globulin Elph [Mass/Vol] 0.3 g/dL 0.0-0.4 [facility] Alpha 1 globulin Elph [Mass/Vol] 1.2 g/dL 0.4-1.0 [facility] Serum classic neutrophil cyt oplasmic antibody assay (units/volume)Ordered By: Philip Drummond on 11-15-2022 Neutrophil cytoplasmic Ab.classic Qn (S) <1:20 titer Neg:<1:20 [facility] Serum globulin measurement ( mass/volume)Ordered By: Philip Drummond on 11-15-2022 Globulin (S) [Mass/Vol] 3.7 g/dL 2.2-3.9 [facility] Serum or plasma C reactive p rotein measurement (mass/volume)Ordered By: Philip Drummond on 11-15-2022 CRP [Mass/Vol] mg/L 0.0-3.0 [facility] Comment on above: C-Reactive Protein ( CRP) provides useful information for thediagnosis, therapy and monitoring of inflammatory processesand associated diseases. For the evaluation of Relative Riskfor Cardiovascular Disease, a High Sensitivity CRP (HSCRP)should be ordered. Serum or plasma IgA measurem ent (mass/volume)Ordered By: Philip Drummond on 11-15-2022 IgA [Mass/Vol] 405 mg/dL 64-422 [facility] Serum or plasma IgG measurem ent (mass/volume)Ordered By: Philip Drummond on 11-15-2022 IgG [Mass/Vol] 995 mg/dL 586-1602 [facility] Serum or plasma IgM measurem ent (mass/volume)Ordered By: Philip Drummond on 11-15-2022 IgM [Mass/Vol] 53 mg/dL 26-217 [facility] Serum or plasma albumin yuniel urement (mass/volume)Ordered By: Philip Drummond on 11-15-2022 Albumin [Mass/Vol] 3.8 g/dL 2.9-4.4 [facility] Serum or plasma albumin/glob ulin mass ratioOrdered By: Philip Drummond on 11-15-2022 Albumin/Globulin [Mass ratio] 0.9 {ratio} 0.9-2.4 [facility] Serum or plasma beta globuli n measurement by electrophoresis (mass/volume)Ordered By: Philip Drummond on 11-15-2022 Beta globulin Elph [Mass/Vol] 1.3 g/dL 0.7-1.3 [facility] Serum or plasma calcium yuniel urement (mass/volume)Ordered By: Philip rDummond on 11-15-2022 Calcium [Mass/Vol] 9.4 mg/dL 8.5-10.1 [facility] Serum or plasma cholesterol in HDL measurement (mass/volume)Ordered By: Philip Drummond on 11-15-2022 Cholesterol in HDL [Mass/Vol] 44 mg/dL >40 [facility] Comment on above: The drugs N-Acetylcy steine and Metamizole may falsely depress this assay. Reference Range HDL <40 mg/dL Low HDL Cholesterol HDL >or= 60 mg/dL High HDL Cholesterol Serum or plasma cholesterol in VLDL measurement (mass/volume)Ordered By: Philip Drummond on 11-15-2022 Cholesterol in VLDL [Mass/Vol] 29 mg/dL 5-40 [facility] Serum or plasma creatinine m easurement (mass/volume)Ordered By: Philip Drummond on 11-15-2022 Creatinine [Mass/Vol] 0.97 mg/dL 0.55-1.02 [facility] Comment on above: The validity of the calculated GFR & GFRAA in patients over 70 years has not been determined. Clinical correlation is essential. Serum or plasma gamma globul in measurement by electrophoresis (mass/volume)Ordered By: Philip Drummond on 11-15-2022 Gamma globulin Elph [Mass/Vol] 1.0 g/dL 0.4-1.8 [facility] Serum or plasma immunoelectr ophoresis interpretation (nominal result)Ordered By: Philip Drummond on 11-15-2022 Interpretation IEP [Interp] Comment . [facility] Comment on above: No monoclonality det ected. Serum or plasma low density lipoprotein (LDL) cholesterol measurement (mass/volume)Ordered By: Philip Drummond on 11-15-2022 Cholesterol in LDL [Mass/Vol] 95 mg/dL 0-130 [facility] Serum or plasma urea nitroge n measurement (mass/volume)Ordered By: Philip Drummond on 11-15-2022 Urea nitrogen [Mass/Vol] 26 mg/dL 7-18 [facility] Serum perinuclear neutrophil cytoplasmic antibody titer by immunofluorescenceOrdered By: Philip Drummond on 11-15-2022 Neutrophil cytoplasmic Ab.perinuclear IF (S) [Titer] <1:20 titer Neg:<1:20 [facility] Comment on above: The presence of posi tive fluorescence exhibiting P-ANCA orC-ANCA patterns alone is not specific for the diagnosis ofWegener's Granulomatosis (WG) or microscopic polyangiitis.Decisions about treatment should not be based solely onANCA IFA results. The International ANCA Group Consensusrecommends follow up testing of positive sera with both LA-3 and MPO-ANCA enzyme immunoassays. As many as 5% serumsamples are positive only by EIA. Ref. AM J Clin Hwfwco4817;111:507-513. Serum tissue transglutaminas e IgA antibody assay (units/volume)Ordered By: Philip Drummond on 11-15-2022 tTG IgA Qn (S) <2 U/mL 0-3 [facility] Comment on above: Negative 0 - 3 Weak Positive 4 - 10 Positive >10 Tissue Transglutaminase (tTG) has been identified as the endomysial antigen. Studies have demonstr- ated that endomysial IgA antibodies have over 99% specificity for gluten sensitive enteropathy. Thin prep Papanicolaou smear with manual screeningOrdered By: Philip Drummond on 11-15-2022 Thin prep Papanicolaou smear with manual screening 12 U/L 15-37 [facility] Thin prep Papanicolaou smear with manual screening 7 5-15 [facility] Thin prep Papanicolaou smear with manual screening 1.1 0.7-1.7 [facility] Total protein bloodOrdered B y: Philip Drummond on 11-15-2022 Protein [Mass/Vol] 7.5 g/dL 6.0-8.5 [facility] Whole blood hemoglobin A1c/t otal hemoglobin ratio (mass fraction)Ordered By: Philip Drummond on 11-15-2022 HbA1c (Bld) [Mass fraction] 7.2 % 3.8-5.6 [facility] Comment on above: Normal < 5.7 % Predi abetic 5.7 - 6.4 % Diabetic >or= 6.5 % Please note range changes. Culture, urineOrdered By: Thea Negron on 11-10-2022 Bacteria identified Cx Nom (U) Mixed Gram Pos & Gram Neg Org [facility] Cervical or vagninal specime n microscopic examination by cytology stain (reported asOrdered By: Marga Negron on 11-08-2022 Cytology report Cyto stain Doc (Cvx/Vag) Comment . [facility] Comment on above: The Pap smear is [...] Mixed Gram Pos & Gram Neg Org [facility] Detection in cervical specim en of any of human papilloma virus (HPV) 16, 18, 31, 33,Ordered By: Marga Negron on 11-08-2022 HPV 16+18+31+33+35+39+45+51+52+ 56+58+59+66+68 DNA Probe+sig amp Ql (Cvx) Negative Negative [facility] Comment on above: This nucleic acid am plification test detects fourteen high-risk HPV types (16,18,31,33,35,39,45,51,52,56,58,59,66,68)without differentiation. Laboratory - CytologyOrdered By: Marga Negron on 11-08-2022 General Counselor Cyto stain Nom (Cvx/Vag) [ID] Comment . [facility] Comment on above: Gladys lopez, Vertical Borer (ASCP) Laboratory - Miscellaneous t estsOrdered By: Marga Negron on 11-08-2022 Service comment (Unsp spec) [Interp] Comment . [facility] Comment on above: This liquid based Th inPrep(R) pap test was screened withthe use of an image guided system. Service comment (Unsp spec) [Interp] . . [facility] Liquid-based cerv Pap + CT/G C by DARLIN w reflex to high-risk HPV for ASCUSOrdered By: Marga Negron on 11-08-2022 Cytology report Cyto stain.thin prep Doc (Cvx/Vag) Comment . [facility] Comment on above: Criteria not met, HP V Genotype not performed.Performed at: - [address] [id number] Director: Elena Psacal MD, Phone: [phone] at: =[address] [id number] Director: Elena Pascal MD, Phone: [phone] No Panel InformationOrdered By: Marga Negron on 11-08-2022 Pathology report final diagnosis Narrative Comment . [facility] Comment on above: NEGATIVE FOR INTRAEP ITHELIAL LESION OR MALIGNANCY. COVID-19 virus antigen assay Ordered By: Dr. Green on 10-04-2022 SARS-CoV-2 (COVID-19) Ag IA.rapid Ql (Resp) Not detected Not Detect [facility] Comment on above: Normal Reference Ran ge: Not DetectedMethod:(RT-PCR) real-time reverse transcriptase PCRLuminex Playhem Instrument*The Food and Drug Administration (FDA) has issued an Emergency Use Authorization (EAU) for the Playhem SARS-CoV-2 Assay for the rapid detection of the virus that causes COVID-19. This test has been validated, but the [facility] independent review of this validation is [...] on 10-04-2022 Influenza Types A,B Direct FA ([facility]) [facility] No Panel InformationOrdered By: Dr. Green on 10-04-2022 Influenza Types A,B Direct FA ([facility]) [facility] RSV Ag EIAOrdered By: Taras petit on 10-04-2022 RSV Ag Immune stain Ql (Tiss) [facility] RSV Ag EIAOrdered By: Dr. Hernandez petit on 10-04-2022 RSV Ag Immune stain Ql (Tiss) [facility] Absolute lymphocyte countOrd ered By: Dr. Green on 08-04-2022 Lymphocytes Auto (Unsp spec) [#/Vol] 2.11 10*3/uL 0.83-4.51 [facility] Basophil percentageOrdered B y: Dr. Green on 08-04-2022 Basophils/100 WBC (Bld) 0.9 % 0-1 [facility] Bilirubin [Mass/Vol] 0.30 mg/dL 0.20-1.00 [facility] Comment on above: For patients on eltr ombopag therapy, use of Dimension [place] TBIL is not recommended. Chloride [Moles/Vol] 107 mmol/L 98-107 [facility] Eosinophils/100 WBC (Bld) 1.6 % 0-5 [facility] Glucose [Mass/Vol] 136 mg/dL 74-106 [facility] Comment on above: Fasting Glucose resu lt greater than or equal to 126 mg/dL suggests DIABETES MELLITUS per A.D.A. criteria. Neutrophils (Bld) [#/Vol] 4.5 10*3/uL 2.0-7.7 [facility] Neutrophils/100 WBC (Bld) 60.8 % 47-70 [facility] Potassium [Moles/Vol] 4.0 mmol/L 3.5-5.1 [facility] Comment on above: Slight Hemolysis, Re sult may be falsely increased. Protein [Mass/Vol] 7.8 g/dL 6.4-8.2 [facility] Sodium [Moles/Vol] 140 mmol/L 136-145 [facility] WBC (Bld) [#/Vol] 7.4 10*3/uL 4.4-11.0 [facility] Blood erythrocytes count (nu mber/volume)Ordered By: Dr. Green on 08-04-2022 RBC (Bld) [#/Vol] 4.68 10*6/uL 4.2-5.4 [facility] Blood hemoglobin measurement (mass/volume)Ordered By: Dr. Green on 08-04-2022 Hemoglobin (Bld) [Mass/Vol] 13.0 g/dL 12.0-15. 0 [facility] Blood lymphocytes/100 leukoc ytesOrdered By: Dr. Green on 08-04-2022 Lymphocytes/100 WBC (Bld) 28.4 % 19-41 [facility] Blood monocytes/100 leukocyt esOrdered By: Dr. Geren on 08-04-2022 Monocytes/100 WBC (Bld) 7.9 % 0-10 [facility] Blood platelet mean volumeOr dered By: Dr. Green on 08-04-2022 Platelet mean volume (Bld) [Entitic vol] 12.7 fL 6.2-12.0 [facility] Determination of erythrocyte mean corpuscular volume (MCV)Ordered By: Dr. Green on 08-04-2022 MCV (RBC) [Entitic vol] 88.2 fL 81-99 [facility] Hematocrit Auto (Bld) [Volum e fraction]Ordered By: Dr. Green on 08-04-2022 Hematocrit (Bld) [Volume fraction] 41.3 % 37-47 [facility] - Chemistry and C hemistry - challengeOrdered By: Dr. Green on 08-04-2022 ALP [Catalytic activity/Vol] 91 U/L 45-117 [facility] ALT [Catalytic activity/Vol] 26 U/L 13-56 [facility] CO2 [Moles/Vol] 24.0 mmol/L 21.0-32.0 [facility] Globulin (S) [Mass/Vol] 4.3 g/dL 2.2-4.2 [facility] Urea nitrogen/Creatinine [Mass ratio] 19.8 mg/mg 10-20 [facility] - Hematology and Cell countsOrdered By: Dr. Green on 08-04-2022 Erythrocyte distribution width (RBC) [Entitic vol] 43.8 fL 35.1-43.9 [facility] Erythrocyte distribution width (RBC) [Ratio] 13.5 % 11.6-14.6 [facility] Immature granulocytes/100 WBC (Bld) 0.400 % 0.0-0.9 [facility] Comment on above: IG% - Immature Granu locytes (promyelocytes, myelocytes and metamyelocytes) > 1% indicates that a LEFT SHIFT is Present. MCH (RBC) [Entitic mass] 27.8 pg 27.0-32.0 [facility] Nucleated RBC/100 WBC (Bld) [Ratio] 0 % 0-5 [facility] MCHC Auto (RBC) [Mass/Vol]Or dered By: Dr. Green on 08-04-2022 MCHC (RBC) [Mass/Vol] 31.5 g/dL 32-36 [facility] No Panel InformationOrdered By: Dr. Green on 08-04-2022 Estimated GFR (MDRD) Amer 69 mL/min >60 [facility] Comment on above: GFR Calc Estimated GFR (MDRD) Non-Af Amer 57 mL/min >60 [facility] Comment on above: Non- GFR Calc Thyroid Stimulating Hormone (TSH) 1.98 uIU/mL 0.358-3.74 [facility] Vitamin D 25-Hydroxy 28.3 ng/mL [facility] Comment on above: Vitamin D 25(OH) Sta tus Range Deficiency <20 ng/mL (50nmol/L) Insufficiency 20 - 30 ng/mL (50 - 75 nmol/L) Sufficiency 30 - 100 ng/mL (75 - 250 nmol/L) Toxicity >100 ng/mL (>250 nmol/L) Platelets bldOrdered By: Dr. Green on 08-04-2022 Platelets (Bld) [#/Vol] 304 10*3/uL 150-450 [facility] Serum or plasma albumin yuniel urement (mass/volume)Ordered By: Dr. Green on 08-04-2022 Albumin [Mass/Vol] 3.5 g/dL 3.2-5.0 [facility] Serum or plasma albumin/glob ulin mass ratioOrdered By: Dr. Green on 08-04-2022 Albumin/Globulin [Mass ratio] 0.8 {ratio} 0.9-2.4 [facility] Serum or plasma calcium yuniel urement (mass/volume)Ordered By: Dr. Green on 08-04-2022 Calcium [Mass/Vol] 9.6 mg/dL 8.5-10.1 [facility] Serum or plasma creatinine m easurement (mass/volume)Ordered By: Dr. Green on 08-04-2022 Creatinine [Mass/Vol] 1.01 mg/dL 0.55-1.02 [facility] Comment on above: The validity of the calculated GFR & GFRAA in patients over 70 years has not been determined. Clinical correlation is essential. Serum or plasma urea nitroge n measurement (mass/volume)Ordered By: Dr. Green on 08-04-2022 Urea nitrogen [Mass/Vol] 20 mg/dL 7-18 [facility] Thin prep Papanicolaou smear with manual screeningOrdered By: Dr. Green on 08-04-2022 Thin prep Papanicolaou smear with manual screening 16 U/L 15-37 [facility] Comment on above: Slight Hemolysis, Re sult may be falsely increased. Thin prep Papanicolaou smear with manual screening 9 5-15 [facility] Culture, urineOrdered By: Zeyad Sutton on 07-19-2022 Bacteria identified Cx Nom (U) Enterococcus faecalis [facility] - Chemistry and C hemistry - challengeon 07-15-2022 Bilirubin Ql (U) Negative [facility] Glucose Ql (U) Negative [facility] Ketones Ql (U) Negative [facility] pH (U) 5.0 [pH] [facility] Specific gravity (U) [Rel density] 1.015 [facility] Urobilinogen (U) [Mass/Vol] Negative [facility] Laboratory - Hematology and Cell countson 07-15-2022 Hemoglobin Ql (U) Negative [facility] - Specimen inform ationon 07-15-2022 Clarity (U) Clear [facility] Color (U) YELLOW [facility] - Urinalysison Nitrite Ql (U) Negative [facility] Protein Ql (U) Negative [facility] No Panel Informationon 07-15 Urine Leukocytes Negatve [facility] Urine Non-Hemolyzed Blood Negative [facility] Absolute lymphocyte countOrd ered By: May Jacobs on 04-21-2022 Lymphocytes Auto (Unsp spec) [#/Vol] 2.37 10*3/uL 0.83-4.51 [facility] Basophil percentageOrdered B y: May Jacobs on 04-21-2022 Basophils/100 WBC (Bld) 0.8 % 0-1 [facility] Chloride [Moles/Vol] 101 mmol/L 98-107 [facility] Eosinophils/100 WBC (Bld) 1.7 % 0-5 [facility] Glucose [Mass/Vol] 321 mg/dL 74-106 [facility] Comment on above: Glucose result great er than or equal to 200 mg/dLsuggests DIABETES MELLITUS per A.D.A. criteria. Neutrophils (Bld) [#/Vol] 5.8 10*3/uL 2.0-7.7 [facility] Neutrophils/100 WBC (Bld) 64.0 % 47-70 [facility] Potassium [Moles/Vol] 4.2 mmol/L 3.5-5.1 [facility] Sodium [Moles/Vol] 137 mmol/L 136-145 [facility] WBC (Bld) [#/Vol] 9.1 10*3/uL 4.4-11.0 [facility] Blood erythrocytes count (nu mber/volume)Ordered By: May Jacobs on 04-21-2022 RBC (Bld) [#/Vol] 4.42 10*6/uL 4.2-5.4 [facility] Blood hemoglobin measurement (mass/volume)Ordered By: May Jacobs on 04-21-2022 Hemoglobin (Bld) [Mass/Vol] 12.5 g/dL 12.0-15. 0 [facility] Blood lymphocytes/100 leukoc ytesOrdered By: May Jacobs on 04-21-2022 Lymphocytes/100 WBC (Bld) 26.1 % 19-41 [facility] Blood monocytes/100 leukocyt esOrdered By: May Jacobs on 04-21-2022 Monocytes/100 WBC (Bld) 7.2 % 0-10 [facility] Blood platelet mean volumeOr dered By: May Jacobs on 04-21-2022 Platelet mean volume (Bld) [Entitic vol] 11.8 fL 6.2-12.0 [facility] Determination of erythrocyte mean corpuscular volume (MCV)Ordered By: May Jacobs on 04-21-2022 MCV (RBC) [Entitic vol] 89.4 fL 81-99 [facility] Hematocrit Auto (Bld) [Volum e fraction]Ordered By: May Jacobs on 04-21-2022 Hematocrit (Bld) [Volume fraction] 39.5 % 37-47 [facility] - Chemistry and C hemistry - challengeOrdered By: May Jacobs on 04-21-2022 CO2 [Moles/Vol] 30.0 mmol/L 21.0-32.0 [facility] Natriuretic peptide B (Bld) [Mass/Vol] 40.1 pg/mL 0-100 [facility] Urea nitrogen/Creatinine [Mass ratio] 22.5 mg/mg 10-20 [facility] - Hematology and Cell countsOrdered By: May Jacobs on 04-21-2022 Erythrocyte distribution width (RBC) [Entitic vol] 39.9 fL 35.1-43.9 [facility] Erythrocyte distribution width (RBC) [Ratio] 12.1 % 11.6-14.6 [facility] Immature granulocytes/100 WBC (Bld) 0.200 % 0.0-0.9 [facility] Comment on above: IG% - Immature Granu locytes (promyelocytes, myelocytes and metamyelocytes) > 1% indicates that a LEFT SHIFT is Present. MCH (RBC) [Entitic mass] 28.3 pg 27.0-32.0 [facility] Nucleated RBC/100 WBC (Bld) [Ratio] 0 % 0-5 [facility] MCHC Auto (RBC) [Mass/Vol]Or dered By: May Jacobs on 04-21-2022 MCHC (RBC) [Mass/Vol] 31.6 g/dL 32-36 [facility] No Panel InformationOrdered By: May Jacobs on 04-21-2022 Estimated GFR (MDRD) Amer 76 mL/min >60 [facility] Comment on above: GFR Calc Estimated GFR (MDRD) Non-Af Amer 63 mL/min >60 [facility] Comment on above: Non- GFR Calc Platelets bldOrdered By: Cayden Jacobs on 04-21-2022 Platelets (Bld) [#/Vol] 280 10*3/uL 150-450 [facility] Serum or plasma calcium yuniel urement (mass/volume)Ordered By: May Jacobs on 04-21-2022 Calcium [Mass/Vol] 9.3 mg/dL 8.5-10.1 [facility] Serum or plasma creatinine m easurement (mass/volume)Ordered By: May Jacobs on 04-21-2022 Creatinine [Mass/Vol] 0.93 mg/dL 0.55-1.02 [facility] Comment on above: The validity of the calculated GFR & GFRAA in patients over 70 years has not been determined. Clinical correlation is essential. Serum or plasma urea nitroge n measurement (mass/volume)Ordered By: May Jacobs on 04-21-2022 Urea nitrogen [Mass/Vol] 21 mg/dL 7-18 [facility] Thin prep Papanicolaou smear with manual screeningOrdered By: May Jacobs on 04-21-2022 Thin prep Papanicolaou smear with manual screening 6 5-15 [facility] Absolute lymphocyte countOrd ered By: Dr. Green on 03-17-2022 Lymphocytes Auto (Unsp spec) [#/Vol] 2.28 10*3/uL 0.83-4.51 [facility] Basophil percentageOrdered B y: Dr. Green on 03-17-2022 Basophils/100 WBC (Bld) 0.9 % 0-1 [facility] Bilirubin [Mass/Vol] 0.20 mg/dL 0.20-1.00 [facility] Comment on above: For patients on eltr ombopag therapy, use of Dimension [place] TBIL is not recommended. Chloride [Moles/Vol] 106 mmol/L 98-107 [facility] Eosinophils/100 WBC (Bld) 1.0 % 0-5 [facility] Glucose [Mass/Vol] 185 mg/dL 74-106 [facility] Comment on above: Fasting Glucose resu lt greater than or equal to 126 mg/dL suggests DIABETES MELLITUS per A.D.A. criteria. Neutrophils (Bld) [#/Vol] 5.1 10*3/uL 2.0-7.7 [facility] Neutrophils/100 WBC (Bld) 62.7 % 47-70 [facility] Potassium [Moles/Vol] 4.2 mmol/L 3.5-5.1 [facility] Protein [Mass/Vol] 7.3 g/dL 6.4-8.2 [facility] Sodium [Moles/Vol] 139 mmol/L 136-145 [facility] WBC (Bld) [#/Vol] 8.1 10*3/uL 4.4-11.0 [facility] Blood erythrocytes count (nu mber/volume)Ordered By: Dr. Green on 03-17-2022 RBC (Bld) [#/Vol] 4.07 10*6/uL 4.2-5.4 [facility] Blood hemoglobin measurement (mass/volume)Ordered By: Dr. Green on 03-17-2022 Hemoglobin (Bld) [Mass/Vol] 12.2 g/dL 12.0-15. 0 [facility] Blood lymphocytes/100 leukoc ytesOrdered By: Dr. Green on 03-17-2022 Lymphocytes/100 WBC (Bld) 28.2 % 19-41 [facility] Blood monocytes/100 leukocyt esOrdered By: Dr. Green on 03-17-2022 Monocytes/100 WBC (Bld) 7.0 % 0-10 [facility] Blood platelet mean volumeOr dered By: Dr. Green on 03-17-2022 Platelet mean volume (Bld) [Entitic vol] 12.5 fL 6.2-12.0 [facility] Determination of erythrocyte mean corpuscular volume (MCV)Ordered By: Dr. Green on 03-17-2022 MCV (RBC) [Entitic vol] 90.2 fL 81-99 [facility] Hematocrit Auto (Bld) [Volum e fraction]Ordered By: Dr. Green on 03-17-2022 Hematocrit (Bld) [Volume fraction] 36.7 % 37-47 [facility] - Chemistry and C hemistry - challengeOrdered By: Dr. Green on 03-17-2022 ALP [Catalytic activity/Vol] 77 U/L 45-117 [facility] ALT [Catalytic activity/Vol] 27 U/L 13-56 [facility] CO2 [Moles/Vol] 27.0 mmol/L 21.0-32.0 [facility] Globulin (S) [Mass/Vol] 4.0 g/dL 2.2-4.2 [facility] Urea nitrogen/Creatinine [Mass ratio] 19.6 mg/mg 10-20 [facility] - Hematology and Cell countsOrdered By: Dr. Green on 03-17-2022 Erythrocyte distribution width (RBC) [Entitic vol] 39.8 fL 35.1-43.9 [facility] Erythrocyte distribution width (RBC) [Ratio] 12.1 % 11.6-14.6 [facility] Immature granulocytes/100 WBC (Bld) 0.200 % 0.0-0.9 [facility] Comment on above: IG% - Immature Granu locytes (promyelocytes, myelocytes and metamyelocytes) > 1% indicates that a LEFT SHIFT is Present. MCH (RBC) [Entitic mass] 30.0 pg 27.0-32.0 [facility] Nucleated RBC/100 WBC (Bld) [Ratio] 0 % 0-5 [facility] MCHC Auto (RBC) [Mass/Vol]Or dered By: Dr. Green on 03-17-2022 MCHC (RBC) [Mass/Vol] 33.2 g/dL 32-36 [facility] No Panel InformationOrdered By: Dr. Green on 03-17-2022 Estimated GFR (MDRD) Amer 73 mL/min >60 [facility] Comment on above: GFR Calc Estimated GFR (MDRD) Non-Af Amer 60 mL/min >60 [facility] Comment on above: Non- GFR Calc Thyroid Stimulating Hormone (TSH) 2.18 uIU/mL 0.358-3.74 [facility] Vitamin D 25-Hydroxy 36.6 ng/mL [facility] Comment on above: Vitamin D 25(OH) Sta tus Range Deficiency <20 ng/mL (50nmol/L) Insufficiency 20 - 30 ng/mL (50 - 75 nmol/L) Sufficiency 30 - 100 ng/mL (75 - 250 nmol/L) Toxicity >100 ng/mL (>250 nmol/L) Platelets bldOrdered By: Dr. Green on 03-17-2022 Platelets (Bld) [#/Vol] 282 10*3/uL 150-450 [facility] Serum or plasma albumin yuniel urement (mass/volume)Ordered By: Dr. Green on 03-17-2022 Albumin [Mass/Vol] 3.3 g/dL 3.2-5.0 [facility] Serum or plasma albumin/glob ulin mass ratioOrdered By: Dr. Green on 03-17-2022 Albumin/Globulin [Mass ratio] 0.8 {ratio} 0.9-2.4 [facility] Serum or plasma calcium yuniel urement (mass/volume)Ordered By: Dr. Green on 03-17-2022 Calcium [Mass/Vol] 9.3 mg/dL 8.5-10.1 [facility] Serum or plasma creatinine m easurement (mass/volume)Ordered By: Dr. Green on 03-17-2022 Creatinine [Mass/Vol] 0.97 mg/dL 0.55-1.02 [facility] Comment on above: The validity of the calculated GFR & GFRAA in patients over 70 years has not been determined. Clinical correlation is essential. Serum or plasma urea nitroge n measurement (mass/volume)Ordered By: Dr. Green on 03-17-2022 Urea nitrogen [Mass/Vol] 19 mg/dL 7-18 [facility] Thin prep Papanicolaou smear with manual screeningOrdered By: Dr. Green on 03-17-2022 Thin prep Papanicolaou smear with manual screening 8 U/L 15-37 [facility] Thin prep Papanicolaou smear with manual screening 6 5-15 [facility] Laboratory - Chemistry and C hemistry - challengeon 11-11-2021 CK [Catalytic activity/Vol] 191 U/L 26-192 [facility] Work Phone: Myoglobin [Mass/Vol] 320 ng/mL 25-58 [facility] Work Phone: Comment on above: Performed at: [address] [id number] Director: John Lopez PhD, Phone: [phone] No Panel Informationon 11-11 Troponin I High Sensitivity 6 pg/mL 3.0-54.0 [facility] Work Phone: Comment on above: Please Note: New Loni t Units and Gender Specific Reference Ranges. For more information see Policy Stat Procedure [place] High Sensitivity Troponin (TNIH) and attachments. Absolute lymphocyte counton 11-06-2021 Lymphocytes Auto (Unsp spec) [#/Vol] 1.71 10*3/uL 0.83-4.51 [facility] Work Phone: Basophil percentageon 2021 Basophils/100 WBC (Bld) 0.2 % 0-1 [facility] Work Phone: Bilirubin [Mass/Vol] 0.60 mg/dL 0.20-1.00 [facility] Work Phone: Comment on above: For patients on eltr ombopag therapy, use of Dimension [place] TBIL is not recommended. Chloride [Moles/Vol] 106 mmol/L 98-107 [facility] Work Phone: Eosinophils/100 WBC (Bld) 0.2 % 0-5 [facility] Work Phone: Glucose [Mass/Vol] 195 mg/dL 74-106 [facility] Work Phone: Comment on above: Fasting Glucose resu lt greater than or equal to 126 mg/dL suggests DIABETES MELLITUS per A.D.A. criteria. Neutrophils (Bld) [#/Vol] 10.4 10*3/uL 2.0-7.7 [facility] Work Phone: Neutrophils/100 WBC (Bld) 79.5 % 47-70 [facility] Work Phone: Potassium [Moles/Vol] 4.1 mmol/L 3.5-5.1 [facility] Work Phone: Protein [Mass/Vol] 7.5 g/dL 6.4-8.2 [facility] Work Phone: Sodium [Moles/Vol] 138 mmol/L 136-145 [facility] Work Phone: WBC (Bld) [#/Vol] 13.1 10*3/uL 4.4-11.0 [facility] Work Phone: [phone] Blood erythrocytes count (nu mber/volume)on 11-06-2021 RBC (Bld) [#/Vol] 4.80 10*6/uL 4.2-5.4 [facility] Work Phone: Blood hemoglobin measurement (mass/volume)on 11-06-2021 Hemoglobin (Bld) [Mass/Vol] 14.0 g/dL 12.0-15. 0 [facility] Work Phone: Blood lymphocytes/100 leukoc yteson 11-06-2021 Lymphocytes/100 WBC (Bld) 13.1 % 19-41 [facility] Work Phone: Blood monocytes/100 leukocyt eson 11-06-2021 Monocytes/100 WBC (Bld) 6.8 % 0-10 [facility] Work Phone: Blood platelet mean volumeon 11-06-2021 Platelet mean volume (Bld) [Entitic vol] 11.8 fL 6.2-12.0 [facility] Work Phone: Determination of erythrocyte mean corpuscular volume (MCV)on 11-06-2021 MCV (RBC) [Entitic vol] 87.1 fL 81-99 [facility] Work Phone: Direct bilirubinon 2 Bilirubin.direct [Mass/Vol] 0.14 mg/dL 0.00-0.3 0 [facility] Work Phone: Hematocrit Auto (Bld) [Volum e fraction]on 11-06-2021 Hematocrit (Bld) [Volume fraction] 41.8 % 37-47 [facility] Work Phone: Laboratory - Chemistry and C hemistry - challengeon 11-06-2021 ALP [Catalytic activity/Vol] 89 U/L 45-117 [facility] Work Phone: ALT [Catalytic activity/Vol] 20 U/L 13-56 [facility] Work Phone: CO2 [Moles/Vol] 27.0 mmol/L 21.0-32.0 [facility] Work Phone: Globulin (S) [Mass/Vol] 4.2 g/dL 2.2-4.2 [facility] Work Phone: Lipase [Catalytic activity/Vol] 91 U/L 73-393 [facility] Work Phone: Urea nitrogen/Creatinine [Mass ratio] 25.7 mg/mg 10-20 [facility] Work Phone: Laboratory - Hematology and Cell countson 11-06-2021 Erythrocyte distribution width (RBC) [Entitic vol] 40.7 fL 35.1-43.9 [facility] Work Phone: Erythrocyte distribution width (RBC) [Ratio] 12.9 % 11.6-14.6 [facility] Work Phone: Immature granulocytes/100 WBC (Bld) 0.200 % 0.0-0.9 [facility] Work Phone: Comment on above: IG% - Immature Granu locytes (promyelocytes, myelocytes and metamyelocytes) > 1% indicates that a LEFT SHIFT is Present. MCH (RBC) [Entitic mass] 29.2 pg 27.0-32.0 [facility] Work Phone: Nucleated RBC/100 WBC (Bld) [Ratio] 0 % 0-5 [facility] Work Phone: MCHC Auto (RBC) [Mass/Vol]on 11-06-2021 MCHC (RBC) [Mass/Vol] 33.5 g/dL 32-36 [facility] Work Phone: No Panel Informationon 11-06 Estimated Creatinine Clearance Calc 57.22 ml/min [facility] Work Phone: Estimated GFR (MDRD) Amer 66 mL/min >60 [facility] Work Phone: Comment on above: GFR Calc Estimated GFR (MDRD) Non-Af Amer 55 mL/min >60 [facility] Work Phone: Comment on above: Non- GFR Calc Platelets bldon 11-06-2021 Platelets (Bld) [#/Vol] 241 10*3/uL 150-450 [facility] Work Phone: Serum or plasma albumin yuniel urement (mass/volume)on 11-06-2021 Albumin [Mass/Vol] 3.3 g/dL 3.2-5.0 [facility] Work Phone: Serum or plasma calcium yuniel urement (mass/volume)on 11-06-2021 Calcium [Mass/Vol] 9.2 mg/dL 8.5-10.1 [facility] Work Phone: Serum or plasma creatinine m easurement (mass/volume)on 11-06-2021 Creatinine [Mass/Vol] 1.05 mg/dL 0.55-1.02 [facility] Work Phone: Comment on above: The validity of the calculated GFR & GFRAA in patients over 70 years has not been determined. Clinical correlation is essential. Serum or plasma urea nitroge n measurement (mass/volume)on 11-06-2021 Urea nitrogen [Mass/Vol] 27 mg/dL 7-18 [facility] Work Phone: Thin prep Papanicolaou smear with manual screeningon 11-06-2021 Thin prep Papanicolaou smear with manual screening 12 U/L 15-37 [facility] Work Phone: Thin prep Papanicolaou smear with manual screening 5 5-15 [facility] Work Phone: Absolute lymphocyte counton 10-25-2021 Lymphocytes Auto (Unsp spec) [#/Vol] 1.96 10*3/uL 0.83-4.51 [facility] Work Phone: Basophil percentageon 2021 Basophils/100 WBC (Bld) 0.6 % 0-1 [facility] Work Phone: Bilirubin [Mass/Vol] 0.30 mg/dL 0.20-1.00 [facility] Work Phone: Comment on above: For patients on eltr ombopag therapy, use of Dimension [place] TBIL is not recommended. Chloride [Moles/Vol] 103 mmol/L 98-107 [facility] Work Phone: Eosinophils/100 WBC (Bld) 1.4 % 0-5 [facility] Work Phone: [phone] Glucose [Mass/Vol] 273 mg/dL 74-106 [facility] Work Phone: [phone] Comment on above: Glucose result great er than or equal to 200 mg/dLsuggests DIABETES MELLITUS per A.D.A. criteria. Neutrophils (Bld) [#/Vol] 5.1 10*3/uL 2.0-7.7 [facility] Work Phone: Neutrophils/100 WBC (Bld) 65.7 % 47-70 [facility] Work Phone: Potassium [Moles/Vol] 4.1 mmol/L 3.5-5.1 [facility] Work Phone: Protein [Mass/Vol] 7.6 g/dL 6.4-8.2 [facility] Work Phone: Sodium [Moles/Vol] 138 mmol/L 136-145 [facility] Work Phone: WBC (Bld) [#/Vol] 7.8 10*3/uL 4.4-11.0 [facility] Work Phone: Blood erythrocytes count (nu mber/volume)on 10-25-2021 RBC (Bld) [#/Vol] 4.32 10*6/uL 4.2-5.4 [facility] Work Phone: Blood hemoglobin measurement (mass/volume)on 10-25-2021 Hemoglobin (Bld) [Mass/Vol] 12.5 g/dL 12.0-15. 0 [facility] Work Phone: Blood lymphocytes/100 leukoc yteson 10-25-2021 Lymphocytes/100 WBC (Bld) 25.3 % 19-41 [facility] Work Phone: Blood monocytes/100 leukocyt eson 10-25-2021 Monocytes/100 WBC (Bld) 6.7 % 0-10 [facility] Work Phone: Blood platelet mean volumeon 10-25-2021 Platelet mean volume (Bld) [Entitic vol] 12.9 fL 6.2-12.0 [facility] Work Phone: Determination of erythrocyte mean corpuscular volume (MCV)on 10-25-2021 MCV (RBC) [Entitic vol] 88.2 fL 81-99 [facility] Work Phone: Hematocrit Auto (Bld) [Volum e fraction]on 10-25-2021 Hematocrit (Bld) [Volume fraction] 38.1 % 37-47 [facility] Work Phone: Laboratory - Chemistry and C hemistry - challengeon 10-25-2021 ALP [Catalytic activity/Vol] 75 U/L 45-117 [facility] Work Phone: ALT [Catalytic activity/Vol] 28 U/L 13-56 [facility] Work Phone: CO2 [Moles/Vol] 28.0 mmol/L 21.0-32.0 [facility] Work Phone: Globulin (S) [Mass/Vol] 4.1 g/dL 2.2-4.2 [facility] Work Phone: Urea nitrogen/Creatinine [Mass ratio] 24.3 mg/mg 10-20 [facility] Work Phone: Laboratory - Hematology and Cell countson 10-25-2021 Erythrocyte distribution width (RBC) [Entitic vol] 41.9 fL 35.1-43.9 [facility] Work Phone: Erythrocyte distribution width (RBC) [Ratio] 13.0 % 11.6-14.6 [facility] Work Phone: Immature granulocytes/100 WBC (Bld) 0.300 % 0.0-0.9 [facility] Work Phone: Comment on above: IG% - Immature Granu locytes (promyelocytes, myelocytes and metamyelocytes) > 1% indicates that a LEFT SHIFT is Present. MCH (RBC) [Entitic mass] 28.9 pg 27.0-32.0 [facility] Work Phone: Nucleated RBC/100 WBC (Bld) [Ratio] 0 % 0-5 [facility] Work Phone: MCHC Auto (RBC) [Mass/Vol]on 10-25-2021 MCHC (RBC) [Mass/Vol] 32.8 g/dL 32-36 [facility] Work Phone: No Panel Informationon 10-25 Estimated GFR (MDRD) Amer 60 mL/min >60 [facility] Work Phone: Comment on above: GFR Calc Estimated GFR (MDRD) Non-Af Amer 49 mL/min >60 [facility] Work Phone: Comment on above: Non- GFR Calc Thyroid Stimulating Hormone (TSH) 1.37 uIU/mL 0.358-3.74 [facility] Work Phone: Vitamin D 25-Hydroxy 45.8 ng/mL [facility] Work Phone: Comment on above: Vitamin D 25(OH) Sta tus Range Deficiency <20 ng/mL (50nmol/L) Insufficiency 20 - 30 ng/mL (50 - 75 nmol/L) Sufficiency 30 - 100 ng/mL (75 - 250 nmol/L) Toxicity >100 ng/mL (>250 nmol/L) Platelets bldon 10-25-2021 Platelets (Bld) [#/Vol] 239 10*3/uL 150-450 [facility] Work Phone: Serum or plasma albumin yuniel urement (mass/volume)on 10-25-2021 Albumin [Mass/Vol] 3.5 g/dL 3.2-5.0 [facility] Work Phone: Serum or plasma albumin/glob ulin mass ratioon 10-25-2021 Albumin/Globulin [Mass ratio] 0.9 {ratio} 0.9-2.4 [facility] Work Phone: Serum or plasma calcium yuniel urement (mass/volume)on 10-25-2021 Calcium [Mass/Vol] 9.4 mg/dL 8.5-10.1 [facility] Work Phone: Serum or plasma creatinine m easurement (mass/volume)on 10-25-2021 Creatinine [Mass/Vol] 1.15 mg/dL 0.55-1.02 [facility] Work Phone: Comment on above: The validity of the calculated GFR & GFRAA in patients over 70 years has not been determined. Clinical correlation is essential. Serum or plasma urea nitroge n measurement (mass/volume)on 10-25-2021 Urea nitrogen [Mass/Vol] 28 mg/dL 7-18 [facility] Work Phone: Thin prep Papanicolaou smear with manual screeningon 10-25-2021 Thin prep Papanicolaou smear with manual screening 13 U/L 15-37 [facility] Work Phone: Thin prep Papanicolaou smear with manual screening 7 5-15 [facility] Work Phone: Laboratory - Microbiology an d Antimicrobial susceptibilityon 10-18-2021 SARS-CoV-2 (COVID-19) RNA DARLIN+probe Ql (Unsp spec) Not detected [facility] Work Phone: No Panel Informationon 10-18 POC Nasal Swab Influenza A,B Not detected [facility] Work Phone: POC Nasal Swab RSV Not detected [facility] Work Phone: Absolute lymphocyte counton 07-22-2021 Lymphocytes Auto (Unsp spec) [#/Vol] 2.00 10*3/uL 0.83-4.51 [facility] Work Phone: Basophil percentageon 2021 Basophils/100 WBC (Bld) 0.7 % 0-1 [facility] Work Phone: Bilirubin [Mass/Vol] 0.10 mg/dL 0.20-1.00 [facility] Work Phone: Comment on above: For patients on eltr ombopag therapy, use of Dimension [place] TBIL is not recommended. Chloride [Moles/Vol] 105 mmol/L 98-107 [facility] Work Phone: Eosinophils/100 WBC (Bld) 1.2 % 0-5 [facility] Work Phone: Glucose [Mass/Vol] 213 mg/dL 74-106 [facility] Work Phone: Comment on above: Glucose result great er than or equal to 200 mg/dLsuggests DIABETES MELLITUS per A.D.A. criteria. Neutrophils (Bld) [#/Vol] 4.0 10*3/uL 2.0-7.7 [facility] Work Phone: Neutrophils/100 WBC (Bld) 60.3 % 47-70 [facility] Work Phone: Potassium [Moles/Vol] 3.8 mmol/L 3.5-5.1 [facility] Work Phone: Protein [Mass/Vol] 8.1 g/dL 6.4-8.2 [facility] Work Phone: Sodium [Moles/Vol] 137 mmol/L 136-145 [facility] Work Phone: WBC (Bld) [#/Vol] 6.7 10*3/uL 4.4-11.0 [facility] Work Phone: Blood erythrocytes count (nu mber/volume)on 07-22-2021 RBC (Bld) [#/Vol] 4.14 10*6/uL 4.2-5.4 [facility]: Blood hemoglobin measurement (mass/volume)on 07-22-2021 Hemoglobin (Bld) [Mass/Vol] 11.9 g/dL 12.0-15. 0 [facility] Work Phone: Blood lymphocytes/100 leukoc yteson 07-22-2021 Lymphocytes/100 WBC (Bld) 29.9 % 19-41 [facility] Work Phone: Blood monocytes/100 leukocyt eson 07-22-2021 Monocytes/100 WBC (Bld) 7.6 % 0-10 [facility] Work Phone: Blood platelet mean volumeon 07-22-2021 Platelet mean volume (Bld) [Entitic vol] 11.3 fL 6.2-12.0 [facility] Work Phone: Determination of erythrocyte mean corpuscular volume (MCV)on 07-22-2021 MCV (RBC) [Entitic vol] 86.5 fL 81-99 [facility] Work Phone: Hematocrit Auto (Bld) [Volum e fraction]on 07-22-2021 Hematocrit (Bld) [Volume fraction] 35.8 % 37-47 [facility] Work Phone: Laboratory - Chemistry and C hemistry - challengeon 07-22-2021 ALP [Catalytic activity/Vol] 92 U/L 45-117 [facility] Work Phone: ALT [Catalytic activity/Vol] 14 U/L 13-56 [facility] Work Phone: CO2 [Moles/Vol] 26.0 mmol/L 21.0-32.0 [facility] Work Phone: Globulin (S) [Mass/Vol] 4.6 g/dL 2.2-4.2 [facility] Work Phone: Urea nitrogen/Creatinine [Mass ratio] 22.7 mg/mg 10-20 [facility] Work Phone: Laboratory - Hematology and Cell countson 07-22-2021 Erythrocyte distribution width (RBC) [Entitic vol] 38.9 fL 35.1-43.9 [facility] Work Phone: Erythrocyte distribution width (RBC) [Ratio] 12.1 % 11.6-14.6 [facility] Work Phone: Immature granulocytes/100 WBC (Bld) 0.300 % 0.0-0.9 [facility] Work Phone: Comment on above: IG% - Immature Granu locytes (promyelocytes, myelocytes and metamyelocytes) > 1% indicates that a LEFT SHIFT is Present. MCH (RBC) [Entitic mass] 28.7 pg 27.0-32.0 [facility] Work Phone: Nucleated RBC/100 WBC (Bld) [Ratio] 0 % 0-5 [facility] Work Phone: MCHC Auto (RBC) [Mass/Vol]on 07-22-2021 MCHC (RBC) [Mass/Vol] 33.2 g/dL 32-36 [facility] Work Phone: No Panel Informationon 07-22 Estimated GFR (MDRD) Amer 77 mL/min >60 [facility] Work Phone: Comment on above: GFR Calc Estimated GFR (MDRD) Non-Af Amer 63 mL/min >60 [facility] Work Phone: Comment on above: Non- GFR Calc Hepatitis C Antibody Non-Reactive Nonreactive [facility] Work Phone: Comment on above: Non Reactive: < 0.8 Equivocal: >/= 0.8 to < 1.0 Reactive: >/= 1.0The CDC recommends that a reactive/equivocal HCV antibody result be followed up by the HCV Nucleic Acid Amplificationtest (865293) Thyroid Stimulating Hormone (TSH) 2.30 uIU/mL 0.358-3.74 [facility] Work Phone: Vitamin D 25-Hydroxy 53.5 ng/mL [facility] Work Phone: Comment on above: Vitamin D 25(OH) Sta tus Range Deficiency <20 ng/mL (50nmol/L) Insufficiency 20 - 30 ng/mL (50 - 75 nmol/L) Sufficiency 30 - 100 ng/mL (75 - 250 nmol/L) Toxicity >100 ng/mL (>250 nmol/L) Platelets bldon 07-22-2021 Platelets (Bld) [#/Vol] 351 10*3/uL 150-450 [facility] Work Phone: Serum or plasma albumin yuniel urement (mass/volume)on 07-22-2021 Albumin [Mass/Vol] 3.5 g/dL 3.2-5.0 [facility] Work Phone: Serum or plasma albumin/glob ulin mass ratioon 07-22-2021 Albumin/Globulin [Mass ratio] 0.8 {ratio} 0.9-2.4 [facility] Work Phone: Serum or plasma calcium yuniel urement (mass/volume)on 07-22-2021 Calcium [Mass/Vol] 9.2 mg/dL 8.5-10.1 [facility] Work Phone: Serum or plasma creatinine m easurement (mass/volume)on 07-22-2021 Creatinine [Mass/Vol] 0.92 mg/dL 0.55-1.02 [facility] Work Phone: Comment on above: The validity of the calculated GFR & GFRAA in patients over 70 years has not been determined. Clinical correlation is essential. Serum or plasma urea nitroge n measurement (mass/volume)on 07-22-2021 Urea nitrogen [Mass/Vol] 21 mg/dL 7-18 [facility] Work Phone: Thin prep Papanicolaou smear with manual screeningon 07-22-2021 Thin prep Papanicolaou smear with manual screening 8 U/L 15-37 [facility] Work Phone: [phone] Thin prep Papanicolaou smear with manual screening 6 5-15 [facility] Work Phone: Absolute lymphocyte counton 07-15-2021 Lymphocytes Auto (Unsp spec) [#/Vol] 2.32 10*3/uL 0.83-4.51 [facility] Work Phone: Basophil percentageon 2021 Basophils/100 WBC (Bld) 0.4 % 0-1 [facility] Work Phone: [phone] Chloride [Moles/Vol] 102 mmol/L 98-107 [facility] Work Phone: Eosinophils/100 WBC (Bld) 0.5 % 0-5 [facility] Work Phone: Glucose [Mass/Vol] 244 mg/dL 74-106 [facility] Work Phone: Comment on above: Glucose result great er than or equal to 200 mg/dLsuggests DIABETES MELLITUS per A.D.A. criteria. Neutrophils (Bld) [#/Vol] 6.2 10*3/uL 2.0-7.7 [facility] Work Phone: Neutrophils/100 WBC (Bld) 66.0 % 47-70 [facility] Work Phone: Potassium [Moles/Vol] 4.3 mmol/L 3.5-5.1 [facility] Work Phone: Comment on above: Moderate Hemolysis, Result may be falsely increased. Sodium [Moles/Vol] 135 mmol/L 136-145 [facility] Work Phone: WBC (Bld) [#/Vol] 9.4 10*3/uL 4.4-11.0 [facility] Work Phone: Blood erythrocytes count (nu mber/volume)on 07-15-2021 RBC (Bld) [#/Vol] 4.67 10*6/uL 4.2-5.4 [facility] Work Phone: Blood hemoglobin measurement (mass/volume)on 07-15-2021 Hemoglobin (Bld) [Mass/Vol] 13.6 g/dL 12.0-15. 0 [facility] Work Phone: Blood lymphocytes/100 leukoc yteson 07-15-2021 Lymphocytes/100 WBC (Bld) 24.8 % 19-41 [facility] Work Phone: Blood manual differential co mment interpretation (narrative result)on 07-15-2021 Manual differential comment Douglas (Bld) [Interp] SCANNED [facility] Work Phone: Blood monocytes/100 leukocyt eson 07-15-2021 Monocytes/100 WBC (Bld) 8.0 % 0-10 [facility] Work Phone: Blood platelet mean volumeon 07-15-2021 Platelet mean volume (Bld) [Entitic vol] 12.1 fL 6.2-12.0 [facility] Work Phone: Determination of erythrocyte mean corpuscular volume (MCV)on 07-15-2021 MCV (RBC) [Entitic vol] 87.6 fL 81-99 [facility] Work Phone: Hematocrit Auto (Bld) [Volum e fraction]on 07-15-2021 Hematocrit (Bld) [Volume fraction] 40.9 % 37-47 [facility] Work Phone: Laboratory - Chemistry and C hemistry - challengeon 07-15-2021 CO2 [Moles/Vol] 28.0 mmol/L 21.0-32.0 [facility] Work Phone: Urea nitrogen/Creatinine [Mass ratio] 18.9 mg/mg 10-20 [facility] Work Phone: Laboratory - Hematology and Cell countson 07-15-2021 Erythrocyte distribution width (RBC) [Entitic vol] 39.8 fL 35.1-43.9 [facility] Work Phone: Erythrocyte distribution width (RBC) [Ratio] 12.5 % 11.6-14.6 [facility] Work Phone: Immature granulocytes/100 WBC (Bld) 0.300 % 0.0-0.9 [facility] Work Phone: Comment on above: IG% - Immature Granu locytes (promyelocytes, myelocytes and metamyelocytes) > 1% indicates that a LEFT SHIFT is Present. MCH (RBC) [Entitic mass] 29.1 pg 27.0-32.0 [facility] Work Phone: Nucleated RBC/100 WBC (Bld) [Ratio] 0 % 0-5 [facility] Work Phone: MCHC Auto (RBC) [Mass/Vol]on 07-15-2021 MCHC (RBC) [Mass/Vol] 33.3 g/dL 32-36 [facility] Work Phone: No Panel Informationon 07-15 Estimated Creatinine Clearance Calc 54.24 ml/min [facility] Work Phone: Estimated GFR (MDRD) Amer 62 mL/min >60 [facility] Work Phone: Comment on above: GFR Calc Estimated GFR (MDRD) Non-Af Amer 51 mL/min >60 [facility] Work Phone: Comment on above: Non- GFR Calc Platelets bldon 07-15-2021 Platelets (Bld) [#/Vol] 292 10*3/uL 150-450 [facility] Work Phone: Serum or plasma calcium yuniel urement (mass/volume)on 07-15-2021 Calcium [Mass/Vol] 9.4 mg/dL 8.5-10.1 [facility] Work Phone: Serum or plasma creatinine m easurement (mass/volume)on 07-15-2021 Creatinine [Mass/Vol] 1.11 mg/dL 0.55-1.02 [facility] Work Phone: Comment on above: The validity of the calculated GFR & GFRAA in patients over 70 years has not been determined. Clinical correlation is essential. Serum or plasma urea nitroge n measurement (mass/volume)on 07-15-2021 Urea nitrogen [Mass/Vol] 21 mg/dL 7-18 [facility] Work Phone: Thin prep Papanicolaou smear with manual screeningon 07-15-2021 Thin prep Papanicolaou smear with manual screening 10 07-15 [facility] Work Phone: .Auto Diffon 11-17-2020 Basophil, Absolute 0.10 10 3/mcL Normal 0.00-0.19 [facility] ([place]) Comment on above: Performed By: #### C BC, ADIFF, ANEU, TROPHS, BMP #### [address] [address] #### GFR #### [address] [address] Basophils/100 WBC (Bld) 1.1 % Normal 0.0-2.5 A [facility] ([place]) Comment on above: Performed By: #### C BC, ADIFF, ANEU, TROPHS, BMP #### [place] [address] #### GFR #### [address] [address] Eosinophil, Absolute 0.10 10 3/mcL Normal 0.00-0.40 A [facility] ([place]) Comment on above: Performed By: #### C BC, ADIFF, ANEU, TROPHS, BMP #### [address] [address] #### GFR #### [address] [address] Eosinophils/100 WBC (Bld) 1.6 % Normal 0.0-7.0 [facility] ([place]) Comment on above: Performed By: #### C BC, ADIFF, ANEU, TROPHS, BMP #### [place] [address] #### GFR #### [address] [address] Lymphocyte, Absolute 2.00 10 3/mcL Normal 0.77-3.85 A [facility] ([place]) Comment on above: Performed By: #### C BC, ADIFF, ANEU, TROPHS, BMP #### [address] [address] #### GFR #### [address] [address] Lymphocytes/100 WBC (Bld) 29.7 % Normal 10.0-50.0 [facility] ([place]) Comment on above: Performed By: #### C BC, ADIFF, ANEU, TROPHS, BMP #### [place] [address] #### GFR #### [address] [address] Monocyte, Absolute 0.60 10 3/mcL Normal 0.15-1.00 [facility] ([place]) Comment on above: Performed By: #### C BC, ADIFF, ANEU, TROPHS, BMP #### [place] [address] #### GFR #### [address] [address] Monocytes/100 WBC (Bld) 8.6 % Normal 1.7-13.0 A [facility] ([place]) Comment on above: Performed By: #### C BC, ADIFF, ANEU, TROPHS, BMP #### [place] [address] #### GFR #### [address] [address] Neutrophils/100 WBC (Bld) 59.0 % Normal 37.0-80.0 [facility] ([place]) Comment on above: Performed By: #### C BC, ADIFF, ANEU, TROPHS, BMP #### [place] [address] #### GFR #### [address] [address] .GFRon 11-17-2020 GFR Non- 64 ml/min/1.73sqm Normal [facility] ([place]) Comment on above: Result Comment: GFR Population [...] C BC, ADIFF, ANEU, TROPHS, BMP #### [address] [address] #### GFR #### [place] [address] GFR 78 ml/min/1.73sqm Normal [facility] ([place]) Comment on above: Result Comment: GFR Population [...] C BC, ADIFF, ANEU, TROPHS, BMP #### [address] [address] #### GFR #### [place] [id number] .NEUABSon 11-17-2020 Neutrophil, Absolute 3.90 10 3/mcL Normal 2.85-6.16 A [facility] ([place]) Comment on above: Performed By: #### C BC, ADIFF, ANEU, TROPHS, BMP #### [place] [address] #### GFR #### [address] [address] [facility] 11-17-2020 BUN/Creatinine Ratio 22 ratio Normal 7-27 [facility] ([place]) Comment on above: Performed By: #### C BC, ADIFF, ANEU, TROPHS, BMP #### [place] [address] #### GFR #### [address] [address] Calcium [Mass/Vol] 8.7 mg/dL Normal 8.4-10.2 [facility] ([place]) Comment on above: Performed By: #### C BC, ADIFF, ANEU, TROPHS, BMP #### [place] [address] #### GFR #### [address] [address] Chloride [Moles/Vol] 105 mmol/L Normal 98-107 [facility] ([place]) Comment on above: Performed By: #### C BC, ADIFF, ANEU, TROPHS, BMP #### [place] [address] #### GFR #### [address] [address] CO2 [Moles/Vol] 28 mmol/L Normal 23-31 [facility] ([place]) Comment on above: Performed By: #### C BC, ADIFF, ANEU, TROPHS, BMP #### [place] [address] #### GFR #### [address] [address] Creatinine [Mass/Vol] 0.87 mg/dL Normal 0.55-1.02 [facility] ([place]) Comment on above: Performed By: #### C BC, ADIFF, ANEU, TROPHS, BMP #### [address] [address] #### GFR #### [address] [address] Electrolyte Balance 8.0 mEq/L Normal On license of [facility] ([place]) Comment on above: Performed By: #### C BC, ADIFF, ANEU, TROPHS, BMP #### [place] [address] #### GFR #### [address] [address] Glucose [Mass/Vol] 183 mg/dL High 83-110 [facility] ([place]) Comment on above: Performed By: #### C BC, ADIFF, ANEU, TROPHS, BMP #### [place] [address] #### GFR #### [address] [address] Potassium [Moles/Vol] 3.9 mmol/L Normal 3.5-5.1 [facility] ([place]) Comment on above: Performed By: #### C BC, ADIFF, ANEU, TROPHS, BMP #### [place] [address] #### GFR #### [address] [address] Sodium [Moles/Vol] 141 mmol/L Normal 136-145 [facility] ([place]) Comment on above: Performed By: #### C BC, ADIFF, ANEU, TROPHS, BMP #### [address] [address] #### GFR #### [address] [address] Urea nitrogen [Mass/Vol] 19 mg/dL High 7-18 [facility] ([place]) Comment on above: Performed By: #### C BC, ADIFF, ANEU, TROPHS, BMP #### [place] [address] #### GFR #### [address] [address] CBCon 11-17-2020 Erythrocyte distribution width (RBC) [Ratio] 13.3 % Normal 11.5-14.5 [facility] ([place]) Comment on above: Performed By: #### C BC, ADIFF, ANEU, TROPHS, BMP #### [place] [address] #### GFR #### [place] [address] Hematocrit (Bld) [Volume fraction] 36.0 % Low 37.0-47.0 [facility] ([place]) Comment on above: Performed By: #### C BC, ADIFF, ANEU, TROPHS, BMP #### [place] [address] #### GFR #### [place] [address] Hgb 12.3 G/dL Normal 12.0-16.0 [facility] ([place]) Comment on above: Performed By: #### C BC, ADIFF, ANEU, TROPHS, BMP #### [place] [address] #### GFR #### [place] [address] MCH (RBC) [Entitic mass] 30.2 pg Normal 27.0-31.2 [facility] ([place]) Comment on above: Performed By: #### C BC, ADIFF, ANEU, TROPHS, BMP #### [place] [address] #### GFR #### [place] [address] MCHC 34.1 G/dL Normal 33.0-37.0 [facility] ([place]) Comment on above: Performed By: #### C BC, ADIFF, ANEU, TROPHS, BMP #### [place] [address] #### GFR #### [place] [address] MCV (RBC) [Entitic vol] 88.6 fL Normal 80.0-94.0 A [facility] ([place]) Comment on above: Performed By: #### C BC, ADIFF, ANEU, TROPHS, BMP #### [place] [address] #### GFR #### [place] [address] Platelet 231 10 3/mcL Normal 130-400 [facility] ([place]) Comment on above: Performed By: #### C BC, ADIFF, ANEU, TROPHS, BMP #### [place] [address] #### GFR #### [place] [address] Platelet mean volume (Bld) [Entitic vol] 10.6 fL High 7.4-10.4 [facility] ([place]) Comment on above: Performed By: #### C BC, ADIFF, ANEU, TROPHS, BMP #### [place] [address] #### GFR #### [place] [address] RBC 4.07 10 6/mcL Low 4.20-5.40 [facility] ([place]) Comment on above: Performed By: #### C BC, ADIFF, ANEU, TROPHS, BMP #### [place] [address] #### GFR #### [place] [address] WBC 6.60 10 3/mcL Normal 4.60-10.80 [facility] ([place]) Comment on above: Performed By: #### C BC, ADIFF, ANEU, TROPHS, BMP #### [place] [address] #### GFR #### [place] [address] [address] HEAD OR BRAIN W/O CONTRAS Ton [...] Date: 11/17/2020 7:29:37 PM Ordering Provider:Viridiana Boateng [facility] ([place]) Leidy 11-17-2020 Troponin I High Sensitivity 7.6 ng/L Normal 0.0-51.4 [facility]) Comment on above: Performed By: #### C BC, ADIFF, ANEU, TROPHS, BMP #### [facility] [address], [place] [address] #### GFR #### [address] [address] XR CHEST 2 VIEWSon 1 XR CHEST [...] Date: 11/17/2020 7:17:27 PM Ordering Provider:Viridiana Boateng [facility] ([place]) [place] 04-02-2020 MOOSE Telephone ([facility]) LAYLA HIGUERA ([id number]) 1950 F Date Time Provider Department 04/02/20 [...] [Z95.1] 06/10/2018 08/02/2018 Coronary artery disease involving [place] camacho*08/02/2018 Chest pain [R07.9] 08/11/2018 Hypoglycemia [E16.2] 08/15/2018 08/20/2018 Obesity, Class I, BMI 30-34.9 [E66.9] 09/11/2018 Age-related incipient cataract of right eye [H2*11/12/2019 More... Encounter Status:Closed by ANABEL HAMMER on 04/02/20 [facility] [place] 02-26-2020 LUIS Telephone (UROL[facility]) LAYLA HIGUERA ([id number]) 1950 F Date Time Provider Department 02/26/20 [...] [Z95.1] 06/10/2018 08/02/2018 Coronary artery disease involving [place] camacho*08/02/2018 Chest pain [R07.9] 08/11/2018 Hypoglycemia [E16.2] 08/15/2018 08/20/2018 Obesity, Class I, BMI 30-34.9 [E66.9] 09/11/2018 Age-related incipient cataract of right eye [H2*11/12/2019 More... Encounter Status:Closed by ANABEL HAMMER on 02/26/20 [facility] CR Spine Lumbosacral 4+ View son 05-02-2019 CR Spine Lumbosacral 4+ Views Patient Name: LAYLA HIGUERA Diagnostic Radiology Exam Date/Time 05/01/2019 17:00:00 EST Exam CR Spine Lumbosacral 4+ Views Ordering Physician SUSAN TEAGUE D.O. Accession Number [id number] CPT4 Codes 19784 () Reason For Exam chronic low back [...] Transcribed Date and Time: 05/02/2019 9:39 Normal [facility] CBC Auto Differentialon - Absolute Baso # 0.1 10*3/uL 0 - 0.2 10*3/uL [place], [place] Absolute Neut # 4.1 10*3/uL 1.8 - 7 10*3/uL [place] Basophils/100 WBC (Bld) 1.1 % 0 - 2 % [place] Eosinophils (Bld) [#/Vol] 0.1 10*3/uL 0 - 0.5 10*3/uL [place] Eosinophils/100 WBC (Bld) 1.8 % 1 - 6 % [place] Erythrocyte distribution width (RBC) [Ratio] 13.1 % 11.5 - 14.5 % [place] Granulocytes/100 WBC (Bld) 54.6 % 40 - 80 % [place] Hematocrit (Bld) [Volume fraction] 38.8 % 35 - 47 % [place] Hemoglobin (Bld) [Mass/Vol] 13.1 g/dL 11.7 - 16 g/dL [place] Lymphocytes (Bld) [#/Vol] 2.6 10*3/uL 1 - 4.3 10*3/uL [place] Lymphocytes/100 WBC (Bld) 34.3 % 20 - 40 % [place] MCH (RBC) [Entitic mass] 30.1 pg 26 - 34 pg [place] MCHC (RBC) [Mass/Vol] 33.7 % 32 - 36 % [place] MCV (RBC) [Entitic vol] 89.5 fL 79 - 98 fL [place], [place] Monocytes (Bld) [#/Vol] 0.6 10*3/uL 0 - 0.8 10*3/uL [place] Monocytes/100 WBC (Bld) 8.2 % 2 - 10 % [place], [place] Platelet mean volume (Bld) [Entitic vol] 9.4 fL 7.4 - 10.4 fL [place] Platelets (Bld) [#/Vol] 286 10*3/uL 140 - 440 10*3/uL [place] RBC (Bld) [#/Vol] 4.34 10*6/uL 3.8 - 5.2 10*6/uL [place] WBC (Bld) [#/Vol] 7.4 10*3/uL 3.6 - 10.7 10*3/uL [place] Test Performed by [facility], [address] [place], [place] [id number] [place] [address] Comp Metabolic Panelon 05-01 ALP [Catalytic activity/Vol] 76 U/L Normal 38-126 [facility] Comment on above: Performed By: #### L IPD2, ALT3, BMP3 #### [facility] [address] [place] [address] ALT [Catalytic activity/Vol] 33 U/L Normal 13-69 [facility] Comment on above: Performed By: #### L IPD2, ALT3, BMP3 #### [facility] [address] [place] [address] Anion gap [Moles/Vol] 9 Normal [facility] Comment on above: Performed By: #### L IPD2, ALT3, BMP3 #### [facility] [address] [place] [address] AST [Catalytic activity/Vol] 20 U/L Normal 15-46 [facility] Comment on above: Performed By: #### L IPD2, ALT3, BMP3 #### [facility] [address] [place] [address] Calcium [Mass/Vol] 10.3 mg/dL Normal 8.4-10.4 [facility] Comment on above: Performed By: #### L IPD2, ALT3, BMP3 #### [facility] [address] [place] [address] CO2 [Moles/Vol] 30 mmol/L Normal 22-30 [facility] Comment on above: Performed By: #### L IPD2, ALT3, BMP3 #### [facility] [address] [place] [address] Glucose [Mass/Vol] 138 mg/dL High 70-100 [facility] Comment on above: Performed By: #### L IPD2, ALT3, BMP3 #### [facility] [address] [place] [address] Protein [Mass/Vol] 7.3 g/dL Normal 6.3-8.2 [facility] Comment on above: Performed By: #### L IPD2, ALT3, BMP3 #### [facility] [address] [place] [address] Urea nitrogen [Mass/Vol] 27 mg/dL High 7-20 [facility] Comment on above: Performed By: #### L IPD2, ALT3, BMP3 #### [facility] [address] [place] [address] Bilirubin [Mass/Vol] 0.2 mg/dL Normal 0.2-1.3 [facility] Comment on above: Performed By: #### L IPD2, ALT3, BMP3 #### [facility] [address] [place] [address] Creatinine [Mass/Vol] 0.84 mg/dL Normal 0.52-1.25 [facility] Comment on above: Performed By: #### L IPD2, ALT3, BMP3 #### [facility] [address] [place] [address] GFR/1.73 sq M predicted among blacks MDRD (S/P/Bld) [Vol rate/Area] mL/min/{1.73_m2} Normal >60 [facility] Comment on above: Performed By: #### L IPD2, ALT3, BMP3 #### [facility] [address] [place] [address] GFR/1.73 sq M predicted among non-blacks MDRD (S/P/Bld) [Vol rate/Area] mL/min/{1.73_m2} Normal >60 [facility] Comment on above: Result Comment: Sour ce- MDRD equation with creatinine calibration to IDMS(NKDEP) eGFR not recommended for drug dose adjustment Performed By: #### L IPD2, ALT3, BMP3 #### [facility] [address] [place] [address] Albumin [Mass/Vol] 4.4 g/dL Normal 3.5-5.0 [facility] Comment on above: Performed By: #### L IPD2, ALT3, BMP3 #### [facility] [address] [place] [address] Chloride [Moles/Vol] 102 mmol/L Normal 98-107 [facility] Comment on above: Performed By: #### L IPD2, ALT3, BMP3 #### [facility] [address] [place] [address] Potassium [Moles/Vol] 4.7 mmol/L Normal 3.5-5.1 [facility] Comment on above: Performed By: #### L IPD2, ALT3, BMP3 #### [facility] [address] [place] [address] Sodium [Moles/Vol] 141 mmol/L Normal 135-145 [facility] Comment on above: Performed By: #### L IPD2, ALT3, BMP3 #### [facility] [address] [place] [address] Comprehensive Metabolic Pane susanna 05-01-2019 Albumin [Mass/Vol] 4.4 g/dL 3.5 - 5 g/dL [facility] [place], [place] ALP [Catalytic activity/Vol] 76 U/L 38 - 126 U/L [place] ALT [Catalytic activity/Vol] 33 U/L 13 - 69 U/L [place] Anion gap [Moles/Vol] 9 mmol/L [place] AST [Catalytic activity/Vol] 20 U/L 15 - 46 U/L [place] Bilirubin Ql (U) 0.2 mg/dL 0.2 - 1.3 mg/dL [place] Calcium [Mass/Vol] 10.3 mg/dL 8.4 - 10. 4 mg/dL [place] Chloride [Moles/Vol] 102 mmol/L 98 - 10 7 mmol/L [place] CO2 [Moles/Vol] 30 mmol/L 22 - 30 mmol/L [place] Creatinine [Mass/Vol] 0.84 mg/dL 0.52 - 1.25 mg/dL [place] EGFR IF NonAfrican [place]ian >60.0 >60 mL/m in [place] Comment on above: Source- MDRD equatio n with creatinine calibration to IDMS(NKDEP) eGFR not recommended for drug dose adjustment GFR/1.73 sq M predicted among blacks MDRD (S/P/Bld) [Vol rate/Area] mL/min/{1.73_m2} >60 mL/min [place] Glucose [Mass/Vol] 138 mg/dL High 70 - 100 mg/dL [place] Interpretation and review of laboratory results Abnormal [place] Potassium [Moles/Vol] 4.7 mmol/L 3.5 - 5.1 mmol/L [place] Protein [Mass/Vol] 7.3 g/dL 6.3 - 8.2 g/dL [place] Sodium [Moles/Vol] 141 mmol/L 135 - 145 mmol/L [place] Urea nitrogen [Mass/Vol] 27 mg/dL High 7 - 20 mg/d L [place] [facility], [facility] [address] , [address] Hemogram w/ Autodiffon 05-01 Abs Baso Cnt 0.1 10*3/uL Normal 0.0-0.2 [facility] Comment on above: Performed By: #### L IPD2, ALT3, BMP3 #### [facility] [address] [place] [address] Abs Neutrophile Cnt 4.1 10*3/uL Normal 1.8-7.0 [facility] Comment on above: Performed By: #### L IPD2, ALT3, BMP3 #### [facility] [address] [place] [address] Basophils/100 WBC (Bld) 1.1 % Normal 0.0-2.0 [facility] Comment on above: Performed By: #### L IPD2, ALT3, BMP3 #### [facility] [address] [place] [address] Eosinophils (Bld) [#/Vol] 0.1 10*3/uL Normal 0.0-0.5 [facility] Comment on above: Performed By: #### L IPD2, ALT3, BMP3 #### [facility] [address] [place] [address] Eosinophils/100 WBC (Bld) 1.8 % Normal 1.0-6.0 [facility] Comment on above: Performed By: #### L IPD2, ALT3, BMP3 #### [facility] [address] [place] [address] Erythrocyte distribution width (RBC) [Ratio] 13.1 % Normal 11.5-14.5 [facility] Comment on above: Performed By: #### L IPD2, ALT3, BMP3 #### [facility] [address] [place] [address] Granulocytes/100 WBC (Bld) 54.6 % Normal 40.0-80.0 [facility] Comment on above: Performed By: #### L IPD2, ALT3, BMP3 #### [facility] [address] [place] [address] Hematocrit (Bld) [Volume fraction] 38.8 % Normal 35.0-47.0 [facility] Comment on above: Performed By: #### L IPD2, ALT3, BMP3 #### [facility] [address] [place] [address] Hemoglobin (Bld) [Mass/Vol] 13.1 g/dL Normal 11.7-16. 0 [facility] Comment on above: Performed By: #### L IPD2, ALT3, BMP3 #### [facility] [address] [place] [address] Lymphocytes (Bld) [#/Vol] 2.6 10*3/uL Normal 1.0-4.3 [facility] Comment on above: Performed By: #### L IPD2, ALT3, BMP3 #### [facility] [address] [place] [address] Lymphocytes/100 WBC (Bld) 34.3 % Normal 20.0-40.0 [facility] Comment on above: Performed By: #### L IPD2, ALT3, BMP3 #### [facility] [address] [place] [address] MCH (RBC) [Entitic mass] 30.1 pg Normal 26.0-34.0 [facility] Comment on above: Performed By: #### L IPD2, ALT3, BMP3 #### [facility] [address] [place] [address] MCHC (RBC) [Mass/Vol] 33.7 % Normal 32.0-36.0 [facility] Comment on above: Performed By: #### L IPD2, ALT3, BMP3 #### [facility] [address] [place] [address] MCV (RBC) [Entitic vol] 89.5 fL Normal 79.0-98.0 [facility] Comment on above: Performed By: #### L IPD2, ALT3, BMP3 #### [facility] [address] [place] [address] Monocytes (Bld) [#/Vol] 0.6 10*3/uL Normal 0.0-0.8 [facility] Comment on above: Performed By: #### L IPD2, ALT3, BMP3 #### [facility] [address] [place] [address] Monocytes/100 WBC (Bld) 8.2 % Normal 2.0-10.0 [facility] Comment on above: Performed By: #### L IPD2, ALT3, BMP3 #### [facility] [address] [place] [address] Platelet mean volume (Bld) [Entitic vol] 9.4 fL Normal 7.4-10.4 [facility] Comment on above: Performed By: #### L IPD2, ALT3, BMP3 #### [facility] [address] [place] [address] Platelets (Bld) [#/Vol] 286 10*3/uL Normal 140-440 [facility] Comment on above: Performed By: #### L IPD2, ALT3, BMP3 #### [facility] [address] [place] [address] RBC (Bld) [#/Vol] 4.34 10*6/uL Normal 3.80-5.20 [facility] Comment on above: Performed By: #### L IPD2, ALT3, BMP3 #### [facility] [address] [place] [address] WBC (Bld) [#/Vol] 7.4 10*3/uL Normal 3.6-10.7 [facility] Comment on above: Performed By: #### L IPD2, ALT3, BMP3 #### [facility] [address] [place] [address] TSH without Reflexon 019 TSH Qn 1.970 u[IU]/mL 0.465 - 4.68 u[IU]/mL [place] Test Performed by [facility], [address] , [place], [place] [address] [place] [address] Thyroid Stim. Hormoneon 04-06 Thyroid Stim. Hormone 1.970 u[IU]/mL Normal 0.465-4.68 0 [facility] Comment on above: Performed By: #### L IPD2, ALT3, BMP3 #### [facility] [address] [place] [address] Vit D 25-OH, Totalon 019 Vit D 25-OH, Total 63 ng/mL Normal 30-100 [facility] Comment on above: Result Comment: Ther apy is based on measurement of Total 25-OHD with the following classification levels: Less than 20 ng/mL: Indicative of Vit D deficiency 20-30 ng/mL: Suggests Vit D insufficiency Optimal: Greater than or equal to 30 ng/mL Test performed by [employer], measuring Total Vitamin D, not individual fractions. Performed By: #### L IPD2, ALT3, BMP3 #### [facility] [address] [place] [address] Vitamin B12on 05-01-2019 Cobalamin (Vitamin B12) [Mass/Vol] pg/mL High 239-931 [facility] Comment on above: Performed By: #### L IPD2, ALT3, BMP3 #### [facility] [address] [place] [address] Cobalamin (Vitamin B12) [Mass/Vol] pg/mL High 239 - 931 pg/mL [place] Interpretation and review of laboratory results Abnormal [place] Test Performed by [facility], [address] , [place], [place] [address] [place] Vitamin D 25 Hydroxyon 05-01 Vit D, 25-Hydroxy 63 ng/mL 30 - 100 ng/mL [place] Comment on above: Therapy is based on measurement of Total 25-OHD with the following classification levels: Less than 20 ng/mL: Indicative of Vit D deficiency 20-30 ng/mL: Suggests Vit D insufficiency Optimal: Greater than or equal to 30 ng/mL Test performed by [employer], measuring Total Vitamin D, not individual fractions. Test Performed by [facility], [address], [place], [place] [address] [place] Basic Metabolic Panelon 04-06 Anion gap [Moles/Vol] 10 Normal [facility] Comment on above: Performed By: #### B MP3, HEMDF, TROPN #### [facility] [address] [place] [address] Calcium [Mass/Vol] 9.5 mg/dL Normal 8.4-10.4 [facility] Comment on above: Performed By: #### B MP3, HEMDF, TROPN #### [facility] [address] [place] [address] CO2 [Moles/Vol] 24 mmol/L Normal 22-30 [facility] Comment on above: Performed By: #### B MP3, HEMDF, TROPN #### [facility] [address] [place] [address] Glucose [Mass/Vol] 108 mg/dL High 70-100 [facility] Comment on above: Performed By: #### B MP3, HEMDF, TROPN #### [facility] [address] [place] [address] Urea nitrogen [Mass/Vol] 19 mg/dL Normal 7-20 [facility] Comment on above: Performed By: #### B MP3, HEMDF, TROPN #### [facility] [address] [place] [address] Creatinine [Mass/Vol] 0.73 mg/dL Normal 0.52-1.25 [facility] Comment on above: Performed By: #### B MP3, HEMDF, TROPN #### [facility] [address] [place] [address] GFR/1.73 sq M predicted among blacks MDRD (S/P/Bld) [Vol rate/Area] mL/min/{1.73_m2} Normal >60 [facility] Comment on above: Performed By: #### B MP3, HEMDF, TROPN #### [facility] [address] [place] [address] GFR/1.73 sq M predicted among non-blacks MDRD (S/P/Bld) [Vol rate/Area] mL/min/{1.73_m2} Normal >60 [facility] Comment on above: Result Comment: Sour ce- MDRD equation with creatinine calibration to IDMS(NKDEP) eGFR not recommended for drug dose adjustment Performed By: #### B MP3, HEMDF, TROPN #### [facility] [address] [place] [address] Potassium [Moles/Vol] 4.1 mmol/L Normal 3.5-5.1 [facility] Comment on above: Performed By: #### B MP3, HEMDF, TROPN #### [facility] [address] [place] [address] Sodium [Moles/Vol] 139 mmol/L Normal 135-145 [facility] Comment on above: Performed By: #### B MP3, HEMDF, TROPN #### [facility] [address] [place] [address] Chloride [Moles/Vol] 105 mmol/L Normal 98-107 [facility] Comment on above: Performed By: #### B MP3, HEMDF, TROPN #### [facility] [address] [place] [address] Anion gap [Moles/Vol] 10 mmol/L [place] Calcium [Mass/Vol] 9.5 mg/dL 8.4 - 10. 4 mg/dL [place] Chloride [Moles/Vol] 105 mmol/L 98 - 10 7 mmol/L [place] CO2 [Moles/Vol] 24 mmol/L 22 - 30 mmol/L [place] Creatinine [Mass/Vol] 0.73 mg/dL 0.52 - 1.25 mg/dL [place] EGFR IF NonAfrican [place] >60.0 >60 mL/m in [place] Comment on above: Source- MDRD equatio n with creatinine calibration to IDMS(NKDEP) eGFR not recommended for drug dose adjustment GFR/1.73 sq M predicted among blacks MDRD (S/P/Bld) [Vol rate/Area] mL/min/{1.73_m2} >60 mL/min [place] Glucose [Mass/Vol] 108 mg/dL High 70 - 100 mg/dL [place] Interpretation and review of laboratory results Abnormal [place] Potassium [Moles/Vol] 4.1 mmol/L 3.5 - 5.1 mmol/L [place] Sodium [Moles/Vol] 139 mmol/L 135 - 145 mmol/L [place] Urea nitrogen [Mass/Vol] 19 mg/dL 7 - 20 mg/d L [place] Test Performed by [facility], [address] , [address] CR Chest PA/LATon 04-26-2019 CR Chest PA/LAT Patient Name: LAYLA HIGUERA Diagnostic Radiology Exam Date/Time 04/26/2019 11:39:44 EST Exam CR Chest PA/LAT Ordering Physician DC GUZMAN Accession Number [id number] CPT4 Codes 71506 () Reason For Exam cough dyspnea COPD [...] Transcribed Date and Time: 04/26/2019 11:57 Normal [facility] Hemogram (CBC) w/Auto Diffon 04-26-2019 Absolute Baso # 0.0 10*3/uL 0 - 0.2 10*3/uL [place] Absolute Neut # 4.2 10*3/uL 1.8 - 7 10*3/uL [place] Basophils/100 WBC (Bld) 0.7 % 0 - 2 % [place] Eosinophils (Bld) [#/Vol] 0.1 10*3/uL 0 - 0.5 10*3/uL [place] Eosinophils/100 WBC (Bld) 1.6 % 1 - 6 % [place] Erythrocyte distribution width (RBC) [Ratio] 13.3 % 11.5 - 14.5 % [place] Granulocytes/100 WBC (Bld) 73.9 % 40 - 80 % [place] Hematocrit (Bld) [Volume fraction] 38.4 % 35 - 47 % [place] Hemoglobin (Bld) [Mass/Vol] 13.0 g/dL 11.7 - 16 g/dL [place] Interpretation and review of laboratory results Abnormal [place] Lymphocytes (Bld) [#/Vol] 1.1 10*3/uL 1 - 4.3 10*3/uL [place] Lymphocytes/100 WBC (Bld) 19.2 % Low 20 - 40 % [place] MCH (RBC) [Entitic mass] 30.1 pg 26 - 34 pg [place] MCHC (RBC) [Mass/Vol] 33.9 % 32 - 36 % [place] MCV (RBC) [Entitic vol] 88.8 fL 79 - 98 fL [place], [place] Monocytes (Bld) [#/Vol] 0.3 10*3/uL 0 - 0.8 10*3/uL [place] Monocytes/100 WBC (Bld) 4.6 % 2 - 10 % [place] Platelet mean volume (Bld) [Entitic vol] 9.8 fL 7.4 - 10.4 fL [place] Platelets (Bld) [#/Vol] 276 10*3/uL 140 - 440 10*3/uL [place] RBC (Bld) [#/Vol] 4.33 10*6/uL 3.8 - 5.2 10*6/uL [place] WBC (Bld) [#/Vol] 5.7 10*3/uL 3.6 - 10.7 10*3/uL [place] Test Performed by [facility], [facility] [address] , [address] Hemogram w/ Autodiffon 04-26 Abs Baso Cnt 0.0 10*3/uL Normal 0.0-0.2 [facility] Comment on above: Performed By: #### B MP3, HEMDF, TROPN #### [facility] [address] [place] [address] Abs Neutrophile Cnt 4.2 10*3/uL Normal 1.8-7.0 [facility] Comment on above: Performed By: #### B MP3, HEMDF, TROPN #### [facility] [address] [place] [address] Basophils/100 WBC (Bld) 0.7 % Normal 0.0-2.0 [facility] Comment on above: Performed By: #### B MP3, HEMDF, TROPN #### [facility] [address] [place] [address] Eosinophils (Bld) [#/Vol] 0.1 10*3/uL Normal 0.0-0.5 [facility] Comment on above: Performed By: #### B MP3, HEMDF, TROPN #### [facility] [address] [place] [address] Eosinophils/100 WBC (Bld) 1.6 % Normal 1.0-6.0 [facility] Comment on above: Performed By: #### B MP3, HEMDF, TROPN #### [facility] [address] [place] [address] Erythrocyte distribution width (RBC) [Ratio] 13.3 % Normal 11.5-14.5 [facility] Comment on above: Performed By: #### B MP3, HEMDF, TROPN #### [facility] [address] [place] [address] Granulocytes/100 WBC (Bld) 73.9 % Normal 40.0-80.0 [facility] Comment on above: Performed By: #### B MP3, HEMDF, TROPN #### [facility] [address] [place] [address] Hematocrit (Bld) [Volume fraction] 38.4 % Normal 35.0-47.0 [facility] Comment on above: Performed By: #### B MP3, HEMDF, TROPN #### [facility] [address] [place] [address] Hemoglobin (Bld) [Mass/Vol] 13.0 g/dL Normal 11.7-16. 0 [facility] Comment on above: Performed By: #### B MP3, HEMDF, TROPN #### [facility] [address] [place] [address] Lymphocytes (Bld) [#/Vol] 1.1 10*3/uL Normal 1.0-4.3 [facility] Comment on above: Performed By: #### B MP3, HEMDF, TROPN #### [facility] [address] [place] [address] Lymphocytes/100 WBC (Bld) 19.2 % Low 20.0-40.0 [facility] Comment on above: Performed By: #### B MP3, HEMDF, TROPN #### [facility] [address] [place] [address] MCH (RBC) [Entitic mass] 30.1 pg Normal 26.0-34.0 [facility] Comment on above: Performed By: #### B MP3, HEMDF, TROPN #### [facility] [address] [place] [address] MCHC (RBC) [Mass/Vol] 33.9 % Normal 32.0-36.0 [facility] Comment on above: Performed By: #### B MP3, HEMDF, TROPN #### [facility] [address] [place] [address] MCV (RBC) [Entitic vol] 88.8 fL Normal 79.0-98.0 [facility] Comment on above: Performed By: #### B MP3, HEMDF, TROPN #### [facility] [address] [place] [address] Monocytes (Bld) [#/Vol] 0.3 10*3/uL Normal 0.0-0.8 [facility] Comment on above: Performed By: #### B MP3, HEMDF, TROPN #### [facility] [address] [place] [address] Monocytes/100 WBC (Bld) 4.6 % Normal 2.0-10.0 [facility] Comment on above: Performed By: #### B MP3, HEMDF, TROPN #### [facility] [address] [place] [address] Platelet mean volume (Bld) [Entitic vol] 9.8 fL Normal 7.4-10.4 [facility] Comment on above: Performed By: #### B MP3, HEMDF, TROPN #### [facility] [address] [place] [address] Platelets (Bld) [#/Vol] 276 10*3/uL Normal 140-440 [facility] Comment on above: Performed By: #### B MP3, HEMDF, TROPN #### [facility] [address] [place] [address] RBC (Bld) [#/Vol] 4.33 10*6/uL Normal 3.80-5.20 [facility] Comment on above: Performed By: #### B MP3, HEMDF, TROPN #### [facility] [address] [place] [address] WBC (Bld) [#/Vol] 5.7 10*3/uL Normal 3.6-10.7 [facility] Comment on above: Performed By: #### B MP3, HEMDF, TROPN #### [facility] [address] [place] [address] Troponin Ion 04-26-2019 Troponin I.cardiac [Mass/Vol] ng/mL Normal 0.000-0.034 [facility] Comment on above: Result Comment: . Performed By: #### B MP3, HEMDF, TROPN #### [facility] [address] [place] [address] Troponin x1on 04-26-2019 Troponin I.cardiac [Mass/Vol] ng/mL 0 - 0.034 ng/mL [facility], [place] Comment on above: . Test Performed by [facility], [address] , [place], [place] [address] [facility], [place] XR CHEST STANDARD (2 VW)on 06-26-2018 Patient Name: LAYLA HIGUERA ---Diagnostic Radiology--- Exam Date/Time 04/26/2019 11:39:44 EST Exam CR Chest PA/LAT Ordering Physician DC GUZMAN Accession Number [id number] CPT4 Codes 58795 () Reason For Exam cough dyspnea COPD [...] R Transcribed Date and Time: 04/26/2019 11:57 [place] Bhavesh, [facility] Incoming Radiology Results From [facility] - 04/26/2019 11:57 AM EST Patient Name: LAYLA HIGUERA ---Diagnostic Radiology--- Exam Date/Time 04/26/2019 11:39:44 EST Exam CR Chest PA/LAT Ordering Physician DC GUZMAN Accession Number [id number] CPT4 Codes 58767 () Reason For Exam cough dyspnea COPD [...] R Transcribed Date and Time: 04/26/2019 11:57 [facility], [place] MG Breast Tomosynthesis Diag nostic BIon 11-23-2018 MG Breast Tomosynthesis Diagnostic BI Patient Name: LAYLA HIGUERA Mammography Exam Date/Time 11/23/2018 14:29:23 EDT Exam MG Breast Tomosynthesis BI Ordering Physician SUSAN TEAGUE D.O. Accession Number [id number] CPT4 Codes 40811 (MG Breast Tomosynthesis BI), 46059 (MG MAMMO 2D DIAG BILAT) Reason For [...] bilateral MG breast tomosynthesis bl performed at [facility]. May 30, 2017, bilateral MG breast tomosynthesis bl scr performed at [facility]. May 05, 2015, mammogram performed at [facility]. September 12, 2013, bilateral mammogram performed at [facility]. TISSUE DENSITY: There are scattered fibroglandular [...] images: BB's = Nipples; skin lesions [place] = Palpable Line = Scar US BREAST [...] Ordering Physician SUSAN TEAGUE D.O. Accession Number [id number] CPT4 Codes [id number] () Reason For Exam palp lump Report [...] bilateral MG breast tomosynthesis bl performed at [facility]. May 30, 2017, bilateral MG breast tomosynthesis bl scr performed at [facility] at [facility]. May 05, 2015, mammogram performed at [facility]. September 12, 2013, bilateral mammogram performed at [facility]. TISSUE DENSITY: There are scattered fibroglandular [...] images: BB's = Nipples; skin lesions [place] = Palpable Line = Scar US BREAST [...] Ordering Physician SUSAN TEAGUE D.O. Accession Number [id number] CPT4 Codes 66367 () Reason For Exam palp lump Report [...] bilateral MG breast tomosynthesis bl performed at [facility]. May 30, 2017, bilateral MG breast tomosynthesis bl scr performed at [facility] at [facility]. May 05, 2015, mammogram performed at [facility]. September 12, 2013, bilateral mammogram performed at [facility]. TISSUE DENSITY: There are scattered fibroglandular [...] images: BB's = Nipples; skin lesions [place] = Palpable Line = Scar US BREAST [...] Signed by: MD JAKE, DELVIS BACH Normal [facility] ALT (SGPT)on 10-15-2018 ALT [Catalytic activity/Vol] 24 U/L Normal 13-69 [facility] Comment on above: Performed By: #### L IPD2, ALT3, BMP3 #### [facility] [address] [place] [address] Basic Metabolic Panelon 10-03 Anion gap [Moles/Vol] 11 Normal [facility] Comment on above: Performed By: #### L IPD2, ALT3, BMP3 #### [facility] [address] [place] [address] Calcium [Mass/Vol] 9.8 mg/dL Normal 8.4-10.4 [facility] Comment on above: Performed By: #### L IPD2, ALT3, BMP3 #### [facility] [address] [place] [address] CO2 [Moles/Vol] 26 mmol/L Normal 22-30 [facility] Comment on above: Performed By: #### L IPD2, ALT3, BMP3 #### [facility] [address] [place] [address] Glucose [Mass/Vol] 153 mg/dL High 70-100 [facility] Comment on above: Performed By: #### L IPD2, ALT3, BMP3 #### [facility] [address] [place] [address] Urea nitrogen [Mass/Vol] 21 mg/dL High 7-20 [facility] Comment on above: Performed By: #### L IPD2, ALT3, BMP3 #### [facility] [address] [place] [address] Creatinine [Mass/Vol] 0.68 mg/dL Normal 0.52-1.25 [facility] Comment on above: Performed By: #### L IPD2, ALT3, BMP3 #### [facility] [address] [place] [address] GFR/1.73 sq M predicted among blacks MDRD (S/P/Bld) [Vol rate/Area] mL/min/{1.73_m2} Normal >60 [facility] Comment on above: Performed By: #### L IPD2, ALT3, BMP3 #### [facility] [address] [place] [address] GFR/1.73 sq M predicted among non-blacks MDRD (S/P/Bld) [Vol rate/Area] mL/min/{1.73_m2} Normal >60 [facility] Comment on above: Result Comment: Sour ce- MDRD equation with creatinine calibration to IDMS(NKDEP) eGFR not recommended for drug dose adjustment Performed By: #### L IPD2, ALT3, BMP3 #### [facility] [address] [place] [address] Chloride [Moles/Vol] 105 mmol/L Normal 98-107 [facility] Comment on above: Performed By: #### L IPD2, ALT3, BMP3 #### [facility] [address] [place] [address] Potassium [Moles/Vol] 4.2 mmol/L Normal 3.5-5.1 [facility] Comment on above: Performed By: #### L IPD2, ALT3, BMP3 #### [facility] [address] [place] [address] Sodium [Moles/Vol] 141 mmol/L Normal 135-145 [facility] Comment on above: Performed By: #### L IPD2, ALT3, BMP3 #### [facility] [address] [place] [address] Lipid Panelon 10-15-2018 Cholesterol in HDL [Mass/Vol] 41 mg/dL Normal 40-60 [facility] Comment on above: Performed By: #### L IPD2, ALT3, BMP3 #### [facility] [address] [place] [address] Cholesterol.total/Cholester ol in HDL [Mass ratio] 5 Normal [facility] Comment on above: Result Comment: Ref Range: < 3 Low Risk for CHD 3-6 Mod Risk for CHD > 6 High Risk for CHD Performed By: #### L IPD2, ALT3, BMP3 #### [facility] [address] [place] [address] Protein [Mass/Vol] 150 mg/dL Abnormal <100 [facility] Comment on above: Performed By: #### L IPD2, ALT3, BMP3 #### [facility] [address] [place] [address] Triglyceride [Mass/Vol] 116 mg/dL Normal <150 [facility] Comment on above: Performed By: #### L IPD2, ALT3, BMP3 #### [facility] [address] [place] [address] Cholesterol [Mass/Vol] 214 mg/dL Abnormal < 200 [facility] Comment on above: Performed By: #### L IPD2, ALT3, BMP3 #### [facility] [address] [place] [address] Glucose Meteron 08-20-2018 Glucose [Mass/Vol] 167 mg/dL High 70-99 [facility] Comment on above: Result Comment: [facility] [place] Performed By: #### T ROP #### [place] [address] Comprehensive Panelon 2018 ALP [Catalytic activity/Vol] 86 U/L Normal 46-116 [facility] Comment on above: Performed By: #### C BCD1 #### [address] [address] Protein [Mass/Vol] 6.9 g/dL Normal 6.4-8.2 [facility] Comment on above: Performed By: #### C BCD1 #### [facility] [address] [place], [place] [address] Bilirubin [Mass/Vol] 0.2 mg/dL Normal 0.2-1.0 [facility] Comment on above: Performed By: #### C BCD1 #### [address] [address] ALT [Catalytic activity/Vol] 22 U/L Normal 12-78 [facility] Comment on above: Performed By: #### C BCD1 #### [facility] [address] [place], [place] [address] AST [Catalytic activity/Vol] 6 U/L Low 9-37 [facility] Comment on above: Performed By: #### C BCD1 #### [facility] [address] [place], [place] [address] Creatinine [Mass/Vol] 0.77 mg/dL Normal 0.51-0.95 [facility] Comment on above: Performed By: #### C BCD1 #### [facility] [address] [place], [place] [address] Albumin [Mass/Vol] 3.1 g/dL Low 3.4-5.0 [facility] Comment on above: Performed By: #### C BCD1 #### [facility] [address] [place], [place] [address] Anion gap [Moles/Vol] 10 mmol/L Normal 8-16 [facility] Comment on above: Performed By: #### C BCD1 #### [facility] [address] [place], [place] [address] CO2 [Moles/Vol] 24 mmol/L Normal 21-32 [facility] Comment on above: Performed By: #### C BCD1 #### [facility] [address] [place], [place] [address] Glucose [Mass/Vol] 185 mg/dL High 70-99 [facility] Comment on above: Performed By: #### C BCD1 #### [facility] [address] [place], [place] [address] Urea nitrogen [Mass/Vol] 15 mg/dL Normal 7-18 [facility] Comment on above: Performed By: #### C BCD1 #### [facility] [address] [place], [place] [address] Calcium [Mass/Vol] 9.0 mg/dL Normal 8.5-10.1 [facility] Comment on above: Performed By: #### C BCD1 #### [facility] [address] [place], [place] [address] Chloride [Moles/Vol] 109 mmol/L High 98-107 [facility] Comment on above: Performed By: #### C BCD1 #### [facility] [address] [place] [address] Potassium [Moles/Vol] 4.2 mmol/L Normal 3.5-5.1 [facility] Comment on above: Performed By: #### C BCD1 #### [facility] [address] [place] [address] Sodium [Moles/Vol] 139 mmol/L Normal 136-145 [facility] Comment on above: Performed By: #### C BCD1 #### [facility] [address] [place] [address] Hemogram/Diffon 08-17-2018 Abs Immature Grans 0.02 thou/cmm Normal 0.00-0.05 [facility] Comment on above: Performed By: #### C BCD1 #### [facility] [address] [place] [address] Abs. Baso 0.05 thou/cmm Normal 0.01-0.08 [facility] Comment on above: Performed By: #### C BCD1 #### [facility] [address] [place] [address] Abs. Divide 0.42 thou/cmm Normal 0.27-0.70 [facility] Comment on above: Performed By: #### C BCD1 #### [facility] [address] [place] [address] Abs. Neut (ANC) 4.34 thou/cmm Normal 1.56-6.13 [facility] Comment on above: Performed By: #### C BCD1 #### [facility] [address] [place] [address] Basophils/100 WBC (Bld) 0.7 % Normal [facility] Comment on above: Performed By: #### C BCD1 #### [facility] [address] [place], [place] [address] Eosinophils (Bld) [#/Vol] 0.19 thou/cmm Normal 0.00-0. 31 [facility] Comment on above: Performed By: #### C BCD1 #### [facility] [address] [place], [place] [address] Eosinophils/100 WBC (Bld) 2.6 % Normal [facility] Comment on above: Performed By: #### C BCD1 #### [facility] [address] [place] [address] Erythrocyte distribution width (RBC) [Ratio] 13.6 % Normal 11.7-14.4 [facility] Comment on above: Performed By: #### C BCD1 #### [facility] [address] [place] [address] Hematocrit (Bld) [Volume fraction] 39.8 % Normal 34.1-44.9 [facility] Comment on above: Performed By: #### C BCD1 #### [facility] [address] [place] [address] Hemoglobin (Bld) [Mass/Vol] 12.6 g/dL Normal 11.2-15. 7 [facility] Comment on above: Performed By: #### C BCD1 #### [facility] [address] [place] [address] Immature Grans 0.30 % Normal [facility] Comment on above: Performed By: #### C BCD1 #### [facility] [address] [place] [address] Lymphocytes (Bld) [#/Vol] 2.15 thou/cmm Normal 1.18-3. 74 [facility] Comment on above: Performed By: #### C BCD1 #### [facility] [address] [place] [address] Lymphocytes/100 WBC (Bld) 30.0 % Normal [facility] Comment on above: Performed By: #### C BCD1 #### [facility] [address] [place] [address] MCH (RBC) [Entitic mass] 28.4 pg Normal 25.6-32.2 [facility] Comment on above: Performed By: #### C BCD1 #### [facility] [address] [place] [address] MCHC (RBC) [Mass/Vol] 31.7 % Normal 31.6-34.8 [facility] Comment on above: Performed By: #### C BCD1 #### [facility] [address] [place], [place] [address] MCV (RBC) [Entitic vol] 89.6 fL Normal 79.4-94.8 [facility] Comment on above: Performed By: #### C BCD1 #### [facility] [address] [place], [place] [address] Monocytes/100 WBC (Bld) 5.9 % Normal [facility] Comment on above: Performed By: #### C BCD1 #### [facility] [address] [place], [place] [address] Platelet mean volume (Bld) [Entitic vol] 12.5 fL High 9.4-12.3 [facility] Comment on above: Performed By: #### C BCD1 #### [facility] [address] [place], [place] [address] Platelets (Bld) [#/Vol] 244 thou/cmm Normal 182-369 [facility] Comment on above: Performed By: #### C BCD1 #### [facility] [address] [place], [place] [address] RBC (Bld) [#/Vol] 4.44 mil/cmm Normal 3.93-5.22 [facility] Comment on above: Performed By: #### C BCD1 #### [facility] [address] [place], [place] [address] RDW SD 44.8 fl Normal 36.4-46.3 [facility] Comment on above: Performed By: #### C BCD1 #### [facility] [address] [place], [place] [address] Seg Neutrophil 60.5 % Normal [facility] Comment on above: Performed By: #### C BCD1 #### [facility] [address] [place], [place] [address] WBC (Bld) [#/Vol] 7.17 thou/cmm Normal 3.98-10.04 [facility] Comment on above: Performed By: #### C BCD1 #### [facility] [address] [place], [place] [address] Lipase Bloodon 08-17-2018 Lipase Blood 127 U/L Normal 73-393 [facility] Comment on above: Performed By: #### C BCD1 #### [facility] [address] [place], [place] [address] MDRD GFRon 08-17-2018 GFR/1.73 sq M predicted among non-blacks MDRD (S/P/Bld) [Vol rate/Area] mL/min/{1.73_m2} Normal >60mL/min/1. 73m2 [facility] Comment on above: Result Comment: If t he patient is , multiply the result by 1.210. Performed By: #### T ROP #### [place] [address] Basic Panelon 08-16-2018 Creatinine [Mass/Vol] 0.71 mg/dL Normal 0.51-0.95 [facility] Comment on above: Performed By: #### C BCD1 #### [address] [address] Glucose [Mass/Vol] 115 mg/dL High 70-99 [facility] Comment on above: Performed By: #### C BCD1 #### [address] [address] Anion gap [Moles/Vol] 10 mmol/L Normal 8-16 [facility] Comment on above: Performed By: #### C BCD1 #### [address] [address] CO2 [Moles/Vol] 25 mmol/L Normal 21-32 [facility] Comment on above: Performed By: #### C BCD1 #### [address] [address] Urea nitrogen [Mass/Vol] 11 mg/dL Normal 7-18 [facility] Comment on above: Performed By: #### C BCD1 #### [address] [address] Calcium [Mass/Vol] 8.8 mg/dL Normal 8.5-10.1 [facility] Comment on above: Performed By: #### C BCD1 #### [facility] [address] [place], [place] [address] Chloride [Moles/Vol] 111 mmol/L High 98-107 [facility] Comment on above: Performed By: #### C BCD1 #### [facility] [address] [place], [place] [address] Potassium [Moles/Vol] 3.6 mmol/L Normal 3.5-5.1 [facility] Comment on above: Performed By: #### C BCD1 #### [facility] [address] [place], [place] [address] Sodium [Moles/Vol] 142 mmol/L Normal 136-145 [facility] Comment on above: Performed By: #### C BCD1 #### [facility] [address] [place], [place] [address] Basic Panelon 08-15-2018 Creatinine [Mass/Vol] 0.58 mg/dL Normal 0.51-0.95 [facility] Comment on above: Performed By: #### C BCD1 #### [facility] [address] [place], [place] [address] Anion gap [Moles/Vol] 10 mmol/L Normal 8-16 [facility] Comment on above: Performed By: #### C BCD1 #### [facility] [address] [place], [place] [address] CO2 [Moles/Vol] 23 mmol/L Normal 21-32 [facility] Comment on above: Performed By: #### C BCD1 #### [facility] [address] [place], [place] [address] Urea nitrogen [Mass/Vol] 5 mg/dL Low 7-18 [facility] Comment on above: Performed By: #### C BCD1 #### [facility] [address] [place], [place] [address] Calcium [Mass/Vol] 7.4 mg/dL Low 8.5-10.1 [facility] Comment on above: Performed By: #### C BCD1 #### [facility] [address] [place], [place] [address] Glucose [Mass/Vol] 211 mg/dL High 70-99 [facility] Comment on above: Performed By: #### C BCD1 #### [facility] [address] [place] [address] Chloride [Moles/Vol] 114 mmol/L High 98-107 [facility] Comment on above: Performed By: #### C BCD1 #### [facility] [address] [place], [place] [address] Potassium [Moles/Vol] 3.1 mmol/L Low 3.5-5.1 [facility] Comment on above: Performed By: #### C BCD1 #### [facility] [address] [place] [address] Sodium [Moles/Vol] 144 mmol/L Normal 136-145 [facility] Comment on above: Performed By: #### C BCD1 #### [facility] [address] [place] [address] Hemogramon 08-15-2018 Erythrocyte distribution width (RBC) [Ratio] 13.9 % Normal 11.7-14.4 [facility] Comment on above: Performed By: #### T ROP #### [facility] [address] [place] [address] Hematocrit (Bld) [Volume fraction] 38.3 % Normal 34.1-44.9 [facility] Comment on above: Performed By: #### T ROP #### [facility] [address] [place] [address] Hemoglobin (Bld) [Mass/Vol] 12.0 g/dL Normal 11.2-15. 7 [facility] Comment on above: Performed By: #### T ROP #### [facility] [address] [place] [address] MCH (RBC) [Entitic mass] 28.0 pg Normal 25.6-32.2 [facility] Comment on above: Performed By: #### T ROP #### [facility] [address] [place] [address] MCHC (RBC) [Mass/Vol] 31.3 % Low 31.6-34.8 [facility] Comment on above: Performed By: #### T ROP #### [facility] [address] [place] [address] MCV (RBC) [Entitic vol] 89.5 fL Normal 79.4-94.8 [facility] Comment on above: Performed By: #### T ROP #### [facility] [address] [place] [address] Platelet mean volume (Bld) [Entitic vol] 12.4 fL High 9.4-12.3 [facility] Comment on above: Performed By: #### T ROP #### [facility] [address] [place] [address] Platelets (Bld) [#/Vol] 241 thou/cmm Normal 182-369 [facility] Comment on above: Performed By: #### T ROP #### [facility] [address] [place] [address] RBC (Bld) [#/Vol] 4.28 mil/cmm Normal 3.93-5.22 [facility] Comment on above: Performed By: #### T ROP #### [facility] [address] [place] [address] RDW SD 45.1 fl Normal 36.4-46.3 [facility] Comment on above: Performed By: #### T ROP #### [facility] [address] [place] [address] WBC (Bld) [#/Vol] 6.41 thou/cmm Normal 3.98-10.04 [facility] Comment on above: Performed By: #### T ROP #### [facility] [address] [place] [address] Hgb A1con 08-15-2018 HbA1c (Bld) [Mass fraction] 8.4 % High 4.2-6.3 [facility] Comment on above: Result Comment: Meth od is National Glycohemoglobin Standardization Program (NGSP) compliant. Performed By: #### C BCD1 #### [facility] [address] [place] [address] HbA1c (Bld) [Mass fraction] 194 mg/dl Normal [facility] Comment on above: Performed By: #### C BCD1 #### [facility] [address] [place], [place] [address] Magnesium Bloodon 08-15-2018 Magnesium [Mass/Vol] 1.6 mg/dL Normal 1.6-2.6 [facility] Comment on above: Performed By: #### C BCD1 #### [facility] [address] [place], [place] [address] Comprehensive Panelon 2018 ALP [Catalytic activity/Vol] 78 U/L Normal 46-116 [facility] Comment on above: Performed By: #### T ROP #### [facility] [address] [place], [place] [address] Protein [Mass/Vol] 7.1 g/dL Normal 6.4-8.2 [facility] Comment on above: Performed By: #### T ROP #### [facility] [address] [place], [place] [address] Bilirubin [Mass/Vol] 0.3 mg/dL Normal 0.2-1.0 [facility] Comment on above: Performed By: #### T ROP #### [facility] [address] [place], [place] [address] ALT [Catalytic activity/Vol] 21 U/L Normal 12-78 [facility] Comment on above: Performed By: #### T ROP #### [facility] [address] [place], [place] [address] AST [Catalytic activity/Vol] 6 U/L Low 9-37 [facility] Comment on above: Performed By: #### T ROP #### [facility] [address] [place], [place] [address] Creatinine [Mass/Vol] 0.68 mg/dL Normal 0.51-0.95 [facility] Comment on above: Performed By: #### T ROP #### [facility] [address] [place], [place] [address] Glucose [Mass/Vol] 238 mg/dL High 70-99 [facility] Comment on above: Performed By: #### T ROP #### [facility] [address] [place], [place] [address] Albumin [Mass/Vol] 3.5 g/dL Normal 3.4-5.0 [facility] Comment on above: Performed By: #### T ROP #### [facility] [address] [place], [place] [address] Anion gap [Moles/Vol] 7 mmol/L Low 8-16 [facility] Comment on above: Performed By: #### T ROP #### [facility] [address] [place], [place] [address] Calcium [Mass/Vol] 9.4 mg/dL Normal 8.5-10.1 [facility] Comment on above: Performed By: #### T ROP #### [facility] [address] [place], [place] [address] CO2 [Moles/Vol] 29 mmol/L Normal 21-32 [facility] Comment on above: Performed By: #### T ROP #### [facility] [address] [place] [address] Urea nitrogen [Mass/Vol] 12 mg/dL Normal 7-18 [facility] Comment on above: Performed By: #### T ROP #### [place] [address] Chloride [Moles/Vol] 106 mmol/L Normal 98-107 [facility] Comment on above: Performed By: #### T ROP #### [place] [address] Potassium [Moles/Vol] 3.6 mmol/L Normal 3.5-5.1 [facility] Comment on above: Performed By: #### T ROP #### [place] [address] Sodium [Moles/Vol] 138 mmol/L Normal 136-145 [facility] Comment on above: Performed By: #### T ROP #### [place] [address] Cult Urineon 08-14-2018 Cult Urine Test performed at [facility] ORGANISM: *Proteus mirabilis (ID: 1) >100,000 CFU/ml Normal [facility] Comment on above: Performed By: #### C BCD1 #### [place] [id number] Hemogram/Diffon 08-14-2018 Abs Immature Grans 0.01 thou/cmm Normal 0.00-0.05 [facility] Comment on above: Performed By: #### T ROP #### [facility] [address] [place] [address] Abs. Baso 0.05 thou/cmm Normal 0.01-0.08 [facility] Comment on above: Performed By: #### T ROP #### [facility] [address] [place] [address] Abs. Divide 0.54 thou/cmm Normal 0.27-0.70 [facility] Comment on above: Performed By: #### T ROP #### [facility] [address] [place] [address] Abs. Neut (ANC) 3.75 thou/cmm Normal 1.56-6.13 [facility] Comment on above: Performed By: #### T ROP #### [place] [address] Basophils/100 WBC (Bld) 0.8 % Normal [facility] Comment on above: Performed By: #### T ROP #### [place] [address] Eosinophils (Bld) [#/Vol] 0.14 thou/cmm Normal 0.00-0. 31 [facility] Comment on above: Performed By: #### T ROP #### [place] [address] Eosinophils/100 WBC (Bld) 2.2 % Normal [facility] Comment on above: Performed By: #### T ROP #### [place] [address] Erythrocyte distribution width (RBC) [Ratio] 13.7 % Normal 11.7-14.4 [facility] Comment on above: Performed By: #### T ROP #### [place] [address] Hematocrit (Bld) [Volume fraction] 38.4 % Normal 34.1-44.9 [facility] Comment on above: Performed By: #### T ROP #### [facility] [address] [place] [address] Hemoglobin (Bld) [Mass/Vol] 12.0 g/dL Normal 11.2-15. 7 [facility] Comment on above: Performed By: #### T ROP #### [facility] [address] [place] [address] Immature Grans 0.20 % Normal [facility] Comment on above: Performed By: #### T ROP #### [facility] [address] [place] [address] Lymphocytes (Bld) [#/Vol] 1.87 thou/cmm Normal 1.18-3. 74 [facility] Comment on above: Performed By: #### T ROP #### [place] [address] Lymphocytes/100 WBC (Bld) 29.4 % Normal [facility] Comment on above: Performed By: #### T ROP #### [facility] [address] [place] [address] MCH (RBC) [Entitic mass] 28.0 pg Normal 25.6-32.2 [facility] Comment on above: Performed By: #### T ROP #### [facility] [address] [place] [address] MCHC (RBC) [Mass/Vol] 31.3 % Low 31.6-34.8 [facility] Comment on above: Performed By: #### T ROP #### [place] [address] MCV (RBC) [Entitic vol] 89.7 fL Normal 79.4-94.8 [facility] Comment on above: Performed By: #### T ROP #### [place] [address] Monocytes/100 WBC (Bld) 8.5 % Normal [facility] Comment on above: Performed By: #### T ROP #### [place] [address] Platelet mean volume (Bld) [Entitic vol] 12.4 fL High 9.4-12.3 [facility] Comment on above: Performed By: #### T ROP #### [facility] [address] [place] [address] Platelets (Bld) [#/Vol] 230 thou/cmm Normal 182-369 [facility] Comment on above: Performed By: #### T ROP #### [facility] [address] [place] [address] RBC (Bld) [#/Vol] 4.28 mil/cmm Normal 3.93-5.22 [facility] Comment on above: Performed By: #### T ROP #### [place] [address] RDW SD 44.7 fl Normal 36.4-46.3 [facility] Comment on above: Performed By: #### T ROP #### [place] [address] Seg Neutrophil 58.9 % Normal [facility] Comment on above: Performed By: #### T ROP #### [place] [address] WBC (Bld) [#/Vol] 6.36 thou/cmm Normal 3.98-10.04 [facility] Comment on above: Performed By: #### T ROP #### [place] [address] Magnesium Bloodon 08-14-2018 Magnesium [Mass/Vol] 2.1 mg/dL Normal 1.6-2.6 [facility] Comment on above: Performed By: #### T ROP #### [place] [address] Urinalysis Routineon 08-14- 019 Bacteria LM.HPF (Urine sed) [#/Area] 4+ Abnormal None [facility] Comment on above: Performed By: #### T ROP #### [place] [address] Ep Cells Urine 2.3 /hpf Normal 0.0-5.0 [facility] Comment on above: Performed By: #### T ROP #### [facility] [address] [place] [address] Hyaline Cast 0.3 /lpf Normal 0.0-1.0 [facility] Comment on above: Performed By: #### T ROP #### [facility] [address] [place] [address] RBC LM.HPF (Urine sed) [#/Area] 9.9 /[HPF] High 0.0-5.0 [facility] Comment on above: Performed By: #### T ROP #### [facility] [address] [place] [address] WBC LM.HPF (Urine sed) [#/Area] 21.0 /[HPF] Abnormal 0.0-5.0 [facility] Comment on above: Performed By: #### T ROP #### [facility] [address] [place] [address] Appearance (U) CLOUDY Normal [facility] Comment on above: Performed By: #### T ROP #### [facility] [address] [place] [address] Bilirubin (U) [Mass/Vol] Negative Normal Negative [facility] Comment on above: Performed By: #### T ROP #### [place] [address] Color (U) YELLOW Normal [facility] Comment on above: Performed By: #### T ROP #### [place] [address] Glucose Ql (U) >=1000 Abnormal Negative [facility] Comment on above: Performed By: #### T ROP #### [facility] [address] [place] [address] Hemoglobin,Urine Negative Normal Negative [facility] Comment on above: Performed By: #### T ROP #### [place] [address] Ketone Urine Negative Normal Negative [facility] Comment on above: Performed By: #### T ROP #### [place] [address] Leukocytes Esterase TRACE Abnormal Negative [facility] Comment on above: Performed By: #### T ROP #### [facility] [address] [place] [address] Nitrites Urine Positive Abnormal Negative [facility] Comment on above: Performed By: #### T ROP #### [facility] [address] [place] [address] pH (U) 7.5 [pH] Normal 5.0-8.0 [facility] Comment on above: Performed By: #### T ROP #### [place] [address] Protein (U) [Mass/Vol] Negative Normal Negative [facility] Comment on above: Performed By: #### T ROP #### [place] [address] Specific [place], Ur 1.027 Normal 1.005-1.030 [facility] Comment on above: Performed By: #### T ROP #### [place] [address] Urobilinogen,Ur 0.2 EU/dL Normal 0.0-1.0 [facility] Comment on above: Performed By: #### T ROP #### [place] [address] Urine Drug Screenon 08-15-19 19 Urine Amphetamine Non-detected Normal Non-Detected [facility] Comment on above: Performed By: #### T ROP #### [place] [address] Urine Barbiturates Non-detected Normal Non-Detected [facility] Comment on above: Performed By: #### T ROP #### [place] [address] Urine Benzodiazepine Non-detected Normal Non-Detected [facility] Comment on above: Performed By: #### T ROP #### [place] [address] Urine Cocaine Metab Non-detected Normal Non-Detected [facility] Comment on above: Performed By: #### T ROP #### [place] [address] Urine Opiate Non-detected Normal Non-Detected [facility] Comment on above: Performed By: #### T ROP #### [facility] [address] [place] [address] Urine PCP Non-detected Normal Non-Detected [facility] Comment on above: Performed By: #### T ROP #### [facility] [address] [place] [address] Urine THC Non-detected Normal Non-Detected [facility] Comment on above: Result Comment: Urin e [...] only. Performed By: #### T ROP #### [place] [address] Venous Blood Gason 9 FIO2 Value Not Given Normal [facility] Comment on above: Performed By: #### T ROP #### [place] [address] Base Excess 2.6 mmol/L Normal -3.0-3.0 [facility] Comment on above: Performed By: #### T ROP #### [place] [address] HCO3 (Bld) [Moles/Vol] 28.9 mmol/L Normal 21.0-30.0 [facility] Comment on above: Performed By: #### T ROP #### [place] [address] O2% Sat Venous 78.1 % High 18.0-74.8 [facility] Comment on above: Performed By: #### T ROP #### [place] [address] PCO2 Venous 54.8 mm Hg Normal 40.6-60.0 [facility] Comment on above: Performed By: #### T ROP #### [facility] [address] [place], [place] [address] pH Venous 7.342 Normal 7.320-7.430 [facility] Comment on above: Performed By: #### T ROP #### [facility] [address] [place], [place] [address] PO2 Venous 46.7 mm Hg High 15.9-37.5 [facility] Comment on above: Performed By: #### T ROP #### [facility] [address] [place], [place] [address] Glucose Meteron 06-14-2018 Glucose [Mass/Vol] 155 mg/dL High 70-99 [facility] Comment on above: Result Comment: [facility] Performed By: #### G LMET #### [place] [address] Basic Panelon 06-12-2018 Creatinine [Mass/Vol] 1.03 mg/dL High 0.51-0.95 [facility] Comment on above: Performed By: #### U RIN2 #### [address] [address] Anion gap [Moles/Vol] 12 mmol/L Normal 8-16 [facility] Comment on above: Performed By: #### U RIN2 #### [address] [address] CO2 [Moles/Vol] 24 mmol/L Normal 21-32 [facility] Comment on above: Performed By: #### U RIN2 #### [address] [address] Glucose [Mass/Vol] 136 mg/dL High 70-99 [facility] Comment on above: Performed By: #### U RIN2 #### [address] [address] Urea nitrogen [Mass/Vol] 24 mg/dL High 7-18 [facility] Comment on above: Performed By: #### U RIN2 #### [address] [address] Calcium [Mass/Vol] 8.8 mg/dL Normal 8.5-10.1 [facility] Comment on above: Performed By: #### U RIN2 #### [facility] [address] [place] [address] Chloride [Moles/Vol] 110 mmol/L High 98-107 [facility] Comment on above: Performed By: #### U RIN2 #### [facility] [address] [place] [address] Potassium [Moles/Vol] 4.0 mmol/L Normal 3.5-5.1 [facility] Comment on above: Performed By: #### U RIN2 #### [facility] [address] [place] [address] Sodium [Moles/Vol] 142 mmol/L Normal 136-145 [facility] Comment on above: Performed By: #### U RIN2 #### [facility] [address] [place] [address] CHEST 2 VIEWSon 06-12-2018 CHEST 2 VIEWS Performed at [facility] APPROVED BY: Hussain Pelayo MD EXAMINATION: [...] presumed adjacent basilar atelectasis, slightly improved. Normal [facility] Cult Urineon 06-12-2018 Cult Urine Test performed at [facility] Organisms cultured are indicative of probable nonclean catch specimen or contamination of specimen collection system. No further identification or susceptibility testing will be performed. Please submit new specimen. Plates will be held for 5 days. Normal [facility] Comment on above: Performed By: #### T ROP #### [facility] [address] [place] [address] Hemogramon 06-12-2018 Erythrocyte distribution width (RBC) [Ratio] 15.4 % High 11.7-14.4 [facility] Comment on above: Performed By: #### U RIN2 #### [facility] [address] [place] [address] Hematocrit (Bld) [Volume fraction] 32.0 % Low 34.1-44.9 [facility] Comment on above: Performed By: #### U RIN2 #### [facility] [address] [place] [address] Hemoglobin (Bld) [Mass/Vol] 9.7 g/dL Low 11.2-15. 7 [facility] Comment on above: Performed By: #### U RIN2 #### [facility] [address] [place] [address] MCH (RBC) [Entitic mass] 28.7 pg Normal 25.6-32.2 [facility] Comment on above: Performed By: #### U RIN2 #### [facility] [address] [place] [address] MCHC (RBC) [Mass/Vol] 30.3 % Low 31.6-34.8 [facility] Comment on above: Performed By: #### U RIN2 #### [facility] [address] [place] [address] MCV (RBC) [Entitic vol] 94.7 fL Normal 79.4-94.8 [facility] Comment on above: Performed By: #### U RIN2 #### [facility] [address] [place] [address] Platelet mean volume (Bld) [Entitic vol] 10.7 fL Normal 9.4-12.3 [facility] Comment on above: Performed By: #### U RIN2 #### [facility] [address] [place], [place] [address] Platelets (Bld) [#/Vol] 658 thou/cmm High 182-369 [facility] Comment on above: Performed By: #### U RIN2 #### [facility] [address] [place] [id number] RBC (Bld) [#/Vol] 3.38 mil/cmm Low 3.93-5.22 [facility] Comment on above: Performed By: #### U RIN2 #### [facility] [address] [place] [address] RDW SD 50.5 fl High 36.4-46.3 [facility] Comment on above: Performed By: #### U RIN2 #### [place] [address] WBC (Bld) [#/Vol] 9.60 thou/cmm Normal 3.98-10.04 [facility] Comment on above: Performed By: #### U RIN2 #### [place] [address] MDRD GFRon 06-12-2018 GFR/1.73 sq M predicted among non-blacks MDRD (S/P/Bld) [Vol rate/Area] 53.13 mL/min/{1.73_m2} Normal >60mL/min/1. 73m2 [facility] Comment on above: Result Comment: If t he patient is , multiply the result by 1.210. Performed By: #### G FR #### [place] [address] Urinalysis, reflexon 019 Reflex Comment see below Normal [facility] Comment on above: Result Comment: A ur ine culture has been ordered based on established laboratory criteria. Performed By: #### U RIN2 #### [place] [address] Bacteria LM.HPF (Urine sed) [#/Area] 4+ Abnormal None [facility] Comment on above: Performed By: #### U RIN2 #### [facility] [address] [place] [address] Ep Cells Urine 22.3 /hpf High 0.0-5.0 [facility] Comment on above: Performed By: #### U RIN2 #### [place] [address] Hyaline Cast 5.4 /lpf High 0.0-1.0 [facility] Comment on above: Performed By: #### U RIN2 #### [facility] [address] [place] [address] RBC LM.HPF (Urine sed) [#/Area] 14.9 /[HPF] High 0.0-5.0 [facility] Comment on above: Performed By: #### U RIN2 #### [facility] [address] [place] [address] WBC, reflex 129.60 /hpf High 0.00-5.00 [facility] Comment on above: Performed By: #### U RIN2 #### [facility] [address] [place] [address] Appearance (U) CLOUDY Normal [facility] Comment on above: Performed By: #### U RIN2 #### [facility] [address] [place] [address] Bilirubin (U) [Mass/Vol] Negative Normal Negative [facility] Comment on above: Performed By: #### U RIN2 #### [place] [address] Color (U) YELLOW Normal [facility] Comment on above: Performed By: #### U RIN2 #### [facility] [address] [place] [address] Glucose Ql (U) Negative Normal Negative [facility] Comment on above: Performed By: #### U RIN2 #### [place] [address] Hemoglobin,Urine Negative Normal Negative [facility] Comment on above: Performed By: #### U RIN2 #### [facility] [address] [place] [address] Ketone Urine TRACE Abnormal Negative [facility] Comment on above: Performed By: #### U RIN2 #### [place] [address] Leukocyte esterase Test strip Ql (U) MODERATE Abnormal Negative [facility] Comment on above: Performed By: #### U RIN2 #### [place] [address] Nitrite reflex Negative Normal Negative [facility] Comment on above: Performed By: #### U RIN2 #### [facility] [address] [place], [place] [address] pH (U) 6.5 [pH] Normal 5.0-8.0 [facility] Comment on above: Performed By: #### U RIN2 #### [facility] [address] [place], [place] [address] Protein (U) [Mass/Vol] TRACE Abnormal Negative [facility] Comment on above: Performed By: #### U RIN2 #### [facility] [address] [place], [place] [address] Specific [place], Ur 1.029 Normal 1.005-1.030 [facility] Comment on above: Performed By: #### U RIN2 #### [address] [address] Urobilinogen,Ur 1.0 EU/dL Normal 0.0-1.0 [facility] Comment on above: Performed By: #### U RIN2 #### [place] [address] Basic Panelon 06-10-2018 Creatinine [Mass/Vol] 1.24 mg/dL High 0.51-0.95 [facility] Comment on above: Performed By: #### U RIN2 #### [address] [address] Anion gap [Moles/Vol] 14 mmol/L Normal 8-16 [facility] Comment on above: Performed By: #### U RIN2 #### [address] [address] CO2 [Moles/Vol] 26 mmol/L Normal 21-32 [facility] Comment on above: Performed By: #### U RIN2 #### [address] [address] Glucose [Mass/Vol] 173 mg/dL High 70-99 [facility] Comment on above: Performed By: #### U RIN2 #### [address] [address] Urea nitrogen [Mass/Vol] 25 mg/dL High 7-18 [facility] Comment on above: Performed By: #### U RIN2 #### [facility] [address] [place] [address] Calcium [Mass/Vol] 9.0 mg/dL Normal 8.5-10.1 [facility] Comment on above: Performed By: #### U RIN2 #### [facility] [address] [place] [address] Chloride [Moles/Vol] 103 mmol/L Normal 98-107 [facility] Comment on above: Performed By: #### U RIN2 #### [facility] [address] [place] [address] Potassium [Moles/Vol] 4.1 mmol/L Normal 3.5-5.1 [facility] Comment on above: Performed By: #### U RIN2 #### [facility] [address] [place] [address] Sodium [Moles/Vol] 139 mmol/L Normal 136-145 [facility] Comment on above: Performed By: #### U RIN2 #### [facility] [address] [place] [address] Hemogramon 06-10-2018 Erythrocyte distribution width (RBC) [Ratio] 15.0 % High 11.7-14.4 [facility] Comment on above: Performed By: #### U RIN2 #### [facility] [address] [place] [address] Hematocrit (Bld) [Volume fraction] 31.6 % Low 34.1-44.9 [facility] Comment on above: Performed By: #### U RIN2 #### [facility] [address] [place] [address] Hemoglobin (Bld) [Mass/Vol] 9.8 g/dL Low 11.2-15. 7 [facility] Comment on above: Performed By: #### U RIN2 #### [facility] [address] [place] [address] MCH (RBC) [Entitic mass] 28.7 pg Normal 25.6-32.2 [facility] Comment on above: Performed By: #### U RIN2 #### [facility] [address] [place] [address] MCHC (RBC) [Mass/Vol] 31.0 % Low 31.6-34.8 [facility] Comment on above: Performed By: #### U RIN2 #### [facility] [address] [place] [address] MCV (RBC) [Entitic vol] 92.7 fL Normal 79.4-94.8 [facility] Comment on above: Performed By: #### U RIN2 #### [facility] [address] [place] [address] Platelet mean volume (Bld) [Entitic vol] 10.1 fL Normal 9.4-12.3 [facility] Comment on above: Performed By: #### U RIN2 #### [place] [address] Platelets (Bld) [#/Vol] 728 thou/cmm High 182-369 [facility] Comment on above: Performed By: #### U RIN2 #### [place] [address] RBC (Bld) [#/Vol] 3.41 mil/cmm Low 3.93-5.22 [facility] Comment on above: Performed By: #### U RIN2 #### [place] [address] RDW SD 47.8 fl High 36.4-46.3 [facility] Comment on above: Performed By: #### U RIN2 #### [place] [address] WBC (Bld) [#/Vol] 10.71 thou/cmm High 3.98-10.04 [facility] Comment on above: Performed By: #### U RIN2 #### [facility] [address] [place] [address] Basic Panelon 06-09-2018 Creatinine [Mass/Vol] 1.17 mg/dL High 0.51-0.95 [facility] Comment on above: Performed By: #### U RIN2 #### [place] [address] Anion gap [Moles/Vol] 12 mmol/L Normal 8-16 [facility] Comment on above: Performed By: #### U RIN2 #### [facility] [address] [place], [place] [address] Calcium [Mass/Vol] 9.0 mg/dL Normal 8.5-10.1 [facility] Comment on above: Performed By: #### U RIN2 #### [facility] [address] [place], [place] [address] CO2 [Moles/Vol] 27 mmol/L Normal 21-32 [facility] Comment on above: Performed By: #### U RIN2 #### [facility] [address] [place], [place] [address] Glucose [Mass/Vol] 154 mg/dL High 70-99 [facility] Comment on above: Performed By: #### U RIN2 #### [address] [address] Urea nitrogen [Mass/Vol] 21 mg/dL High 7-18 [facility] Comment on above: Performed By: #### U RIN2 #### [facility] [address] [place], [place] [address] Chloride [Moles/Vol] 103 mmol/L Normal 98-107 [facility] Comment on above: Performed By: #### U RIN2 #### [address] [address] Potassium [Moles/Vol] 4.4 mmol/L Normal 3.5-5.1 [facility] Comment on above: Performed By: #### U RIN2 #### [facility] [address] [place], [place] [address] Sodium [Moles/Vol] 138 mmol/L Normal 136-145 [facility] Comment on above: Performed By: #### U RIN2 #### [facility] [address] [place], [place] [address] Basic Panelon 06-08-2018 Creatinine [Mass/Vol] 1.18 mg/dL High 0.51-0.95 [facility] Comment on above: Performed By: #### U RIN2 #### [facility] [address] [place], [place] [address] Anion gap [Moles/Vol] 13 mmol/L Normal 8-16 [facility] Comment on above: Performed By: #### U RIN2 #### [facility] [address] [place], [place] [address] CO2 [Moles/Vol] 26 mmol/L Normal 21-32 [facility] Comment on above: Performed By: #### U RIN2 #### [facility] [address] [place], [place] [address] Urea nitrogen [Mass/Vol] 20 mg/dL High 7-18 [facility] Comment on above: Performed By: #### U RIN2 #### [facility] [address] [place], [place] [address] Calcium [Mass/Vol] 9.2 mg/dL Normal 8.5-10.1 [facility] Comment on above: Performed By: #### U RIN2 #### [facility] [address] [place], [place] [address] Glucose [Mass/Vol] 173 mg/dL High 70-99 [facility] Comment on above: Performed By: #### U RIN2 #### [facility] [address] [place], [place] [address] Chloride [Moles/Vol] 102 mmol/L Normal 98-107 [facility] Comment on above: Performed By: #### U RIN2 #### [facility] [address] [place], [place] [address] Potassium [Moles/Vol] 4.3 mmol/L Normal 3.5-5.1 [facility] Comment on above: Performed By: #### U RIN2 #### [facility] [address] [place], [place] [address] Sodium [Moles/Vol] 137 mmol/L Normal 136-145 [facility] Comment on above: Performed By: #### U RIN2 #### [facility] [address] [place], [place] [address] Hemogramon 06-08-2018 Erythrocyte distribution width (RBC) [Ratio] 14.6 % High 11.7-14.4 [facility] Comment on above: Performed By: #### U RIN2 #### [facility] [address] [place] [address] Hematocrit (Bld) [Volume fraction] 32.3 % Low 34.1-44.9 [facility] Comment on above: Performed By: #### U RIN2 #### [facility] [address] [place] [address] Hemoglobin (Bld) [Mass/Vol] 9.8 g/dL Low 11.2-15. 7 [facility] Comment on above: Performed By: #### U RIN2 #### [facility] [address] [place] [address] MCH (RBC) [Entitic mass] 28.2 pg Normal 25.6-32.2 [facility] Comment on above: Performed By: #### U RIN2 #### [facility] [address] [place] [address] MCHC (RBC) [Mass/Vol] 30.3 % Low 31.6-34.8 [facility] Comment on above: Performed By: #### U RIN2 #### [facility] [address] [place] [address] MCV (RBC) [Entitic vol] 93.1 fL Normal 79.4-94.8 [facility] Comment on above: Performed By: #### U RIN2 #### [facility] [address] [place] [address] Platelet mean volume (Bld) [Entitic vol] 10.7 fL Normal 9.4-12.3 [facility] Comment on above: Performed By: #### U RIN2 #### [facility] [address] [place] [address] Platelets (Bld) [#/Vol] 632 thou/cmm High 182-369 [facility] Comment on above: Performed By: #### U RIN2 #### [facility] [address] [place] [address] RBC (Bld) [#/Vol] 3.47 mil/cmm Low 3.93-5.22 [facility] Comment on above: Performed By: #### U RIN2 #### [facility] [address] [place], [place] [address] RDW SD 48.0 fl High 36.4-46.3 [facility] Comment on above: Performed By: #### U RIN2 #### [facility] [address] [place], [place] [address] WBC (Bld) [#/Vol] 8.73 thou/cmm Normal 3.98-10.04 [facility] Comment on above: Performed By: #### U RIN2 #### [facility] [address] [place], [place] [address] Basic Panelon 2018 Creatinine [Mass/Vol] 0.88 mg/dL Normal 0.51-0.95 [facility] Comment on above: Performed By: #### P 8 ####[facility] [place], [place] [address] Calcium [Mass/Vol] 8.8 mg/dL Normal 8.5-10.1 [facility] Comment on above: Performed By: #### P 8 ####[facility] [place], [place] [address] Glucose [Mass/Vol] 115 mg/dL High 70-99 [facility] Comment on above: Performed By: #### P 8 ####[facility] [place], [place] [address] Anion gap [Moles/Vol] 12 mmol/L Normal 8-16 [facility] Comment on above: Performed By: #### P 8 ####[facility] [place], [place] [address] CO2 [Moles/Vol] 25 mmol/L Normal 21-32 [facility] Comment on above: Performed By: #### P 8 ####[facility] [place], [place] [address] Urea nitrogen [Mass/Vol] 18 mg/dL Normal 7-18 [facility] Comment on above: Performed By: #### P 8 ####[address] [address] Chloride [Moles/Vol] 107 mmol/L Normal 98-107 [facility] Comment on above: Performed By: #### P 8 ####[facility] [place], [place] [address] Potassium [Moles/Vol] 4.6 mmol/L Normal 3.5-5.1 [facility] Comment on above: Performed By: #### P 8 ####[facility] [place], [place] [address] Sodium [Moles/Vol] 139 mmol/L Normal 136-145 [facility] Comment on above: Performed By: #### P 8 ####[facility] [place], [place] [address] CHEST 2 VIEWSon 2018 CHEST 2 VIEWS Performed at [facility] APPROVED BY: Zenon King MD EXAMINATION: [...] disease involves the rest of chest. Normal [facility] Basic Panelon 06-06-2018 Creatinine [Mass/Vol] 0.89 mg/dL Normal 0.51-0.95 [facility] Comment on above: Performed By: #### P 8 ####[facility] [place], [place] [address] Anion gap [Moles/Vol] 12 mmol/L Normal 8-16 [facility] Comment on above: Performed By: #### P 8 ####[facility] [place], [place] [address] CO2 [Moles/Vol] 29 mmol/L Normal 21-32 [facility] Comment on above: Performed By: #### P 8 ####[facility] [place], [place] [address] Urea nitrogen [Mass/Vol] 22 mg/dL High 7-18 [facility] Comment on above: Performed By: #### P 8 ####[address] [address] Calcium [Mass/Vol] 8.5 mg/dL Normal 8.5-10.1 [facility] Comment on above: Performed By: #### P 8 ####[address] [address] Glucose [Mass/Vol] 134 mg/dL High 70-99 [facility] Comment on above: Performed By: #### P 8 ####[address] [address] Chloride [Moles/Vol] 105 mmol/L Normal 98-107 [facility] Comment on above: Performed By: #### P 8 ####[address] [address] Potassium [Moles/Vol] 4.7 mmol/L Normal 3.5-5.1 [facility] Comment on above: Performed By: #### P 8 ####[address] [address] Sodium [Moles/Vol] 141 mmol/L Normal 136-145 [facility] Comment on above: Performed By: #### P 8 ####[address] [address] Hemogramon 06-06-2018 Erythrocyte distribution width (RBC) [Ratio] 14.1 % Normal 11.7-14.4 [facility] Comment on above: Performed By: #### C BC1 ####[address] [address] Hematocrit (Bld) [Volume fraction] 25.5 % Low 34.1-44.9 [facility] Comment on above: Performed By: #### C BC1 ####[address] [address] Hemoglobin (Bld) [Mass/Vol] 7.7 g/dL Low 11.2-15. 7 [facility] Comment on above: Performed By: #### C BC1 ####[facility] [place], [place] [address] MCH (RBC) [Entitic mass] 28.0 pg Normal 25.6-32.2 [facility] Comment on above: Performed By: #### C BC1 ####[facility] [place], [place] [address] MCHC (RBC) [Mass/Vol] 30.2 % Low 31.6-34.8 [facility] Comment on above: Performed By: #### C BC1 ####[place] [address] MCV (RBC) [Entitic vol] 92.7 fL Normal 79.4-94.8 [facility] Comment on above: Performed By: #### C BC1 ####[place] [address] Nucleated RBC (Bld) [#/Vol] 0.04 thou/cmm High 0.00- 0.01 [facility] Comment on above: Performed By: #### C BC1 ####[place] [id number] Nucleated RBC/100 WBC (Bld) [Ratio] 0.4 % High 0.0-0.2 [facility] Comment on above: Performed By: #### C BC1 ####[address] [address] Platelet mean volume (Bld) [Entitic vol] 11.1 fL Normal 9.4-12.3 [facility] Comment on above: Performed By: #### C BC1 ####[address] [address] Platelets (Bld) [#/Vol] 435 thou/cmm High 182-369 [facility] Comment on above: Performed By: #### C BC1 ####[address] [address] RBC (Bld) [#/Vol] 2.75 mil/cmm Low 3.93-5.22 [facility] Comment on above: Performed By: #### C BC1 ####[address] [address] RDW SD 47.2 fl High 36.4-46.3 [facility] Comment on above: Performed By: #### C BC1 ####[place] [id number] WBC (Bld) [#/Vol] 9.11 thou/cmm Normal 3.98-10.04 [facility] Comment on above: Performed By: #### C BC1 ####[place] [address] Basic Panelon 06-05-2018 Creatinine [Mass/Vol] 0.86 mg/dL Normal 0.51-0.95 [facility] Comment on above: Performed By: #### P 8 ####[address] [address] Anion gap [Moles/Vol] 10 mmol/L Normal 8-16 [facility] Comment on above: Performed By: #### P 8 ####[address] [address] CO2 [Moles/Vol] 29 mmol/L Normal 21-32 [facility] Comment on above: Performed By: #### P 8 ####[place] [address] Urea nitrogen [Mass/Vol] 23 mg/dL High 7-18 [facility] Comment on above: Performed By: #### P 8 ####[address] [address] Calcium [Mass/Vol] 8.2 mg/dL Low 8.5-10.1 [facility] Comment on above: Performed By: #### P 8 ####[address] [address] Glucose [Mass/Vol] 135 mg/dL High 70-99 [facility] Comment on above: Performed By: #### P 8 ####[facility] [place], [place] [address] Chloride [Moles/Vol] 107 mmol/L Normal 98-107 [facility] Comment on above: Performed By: #### P 8 ####[facility] [place], [place] [address] Potassium [Moles/Vol] 4.1 mmol/L Normal 3.5-5.1 [facility] Comment on above: Performed By: #### P 8 ####[facility] [place], [place] [address] Sodium [Moles/Vol] 142 mmol/L Normal 136-145 [facility] Comment on above: Performed By: #### P 8 ####[facility] [place], [place] [address] CHEST 1 VIEWon 06-05-2018 CHEST 1 VIEW Performed at [facility] APPROVED BY: Zenon King MD EXAMINATION: [...] without evidence of significant interstitial edema. Normal [facility] Hemogramon 06-05-2018 Erythrocyte distribution width (RBC) [Ratio] 13.9 % Normal 11.7-14.4 [facility] Comment on above: Performed By: #### C BC1 ####[address] [address] Hematocrit (Bld) [Volume fraction] 24.6 % Low 34.1-44.9 [facility] Comment on above: Performed By: #### C BC1 ####[facility] [place], [place] [address] Hemoglobin (Bld) [Mass/Vol] 7.7 g/dL Low 11.2-15. 7 [facility] Comment on above: Performed By: #### C BC1 ####[address] [address] MCH (RBC) [Entitic mass] 28.7 pg Normal 25.6-32.2 [facility] Comment on above: Performed By: #### C BC1 ####[address] [address] MCHC (RBC) [Mass/Vol] 31.3 % Low 31.6-34.8 [facility] Comment on above: Performed By: #### C BC1 ####[place] [address] MCV (RBC) [Entitic vol] 91.8 fL Normal 79.4-94.8 [facility] Comment on above: Performed By: #### C BC1 ####[address] [address] Nucleated RBC (Bld) [#/Vol] 0.05 thou/cmm High 0.00- 0.01 [facility] Comment on above: Performed By: #### C BC1 ####[address] [address] Nucleated RBC/100 WBC (Bld) [Ratio] 0.6 % High 0.0-0.2 [facility] Comment on above: Performed By: #### C BC1 ####[address] [address] Platelet mean volume (Bld) [Entitic vol] 11.1 fL Normal 9.4-12.3 [facility] Comment on above: Performed By: #### C BC1 ####[address] [address] Platelets (Bld) [#/Vol] 324 thou/cmm Normal 182-369 [facility] Comment on above: Performed By: #### C BC1 ####[address] [address] RBC (Bld) [#/Vol] 2.68 mil/cmm Low 3.93-5.22 [facility] Comment on above: Performed By: #### C BC1 ####[address] [address] RDW SD 46.1 fl Normal 36.4-46.3 [facility] Comment on above: Performed By: #### C BC1 ####[address] [address] WBC (Bld) [#/Vol] 8.57 thou/cmm Normal 3.98-10.04 [facility] Comment on above: Performed By: #### C BC1 ####[address] [address] Basic Panelon 06-04-2018 Creatinine [Mass/Vol] 0.81 mg/dL Normal 0.51-0.95 [facility] Comment on above: Performed By: #### P 8 ####[address] [address] Anion gap [Moles/Vol] 10 mmol/L Normal 8-16 [facility] Comment on above: Performed By: #### P 8 ####[address] [address] Calcium [Mass/Vol] 8.1 mg/dL Low 8.5-10.1 [facility] Comment on above: Performed By: #### P 8 ####[address] [address] CO2 [Moles/Vol] 27 mmol/L Normal 21-32 [facility] Comment on above: Performed By: #### P 8 ####[address] [address] Glucose [Mass/Vol] 148 mg/dL High 70-99 [facility] Comment on above: Performed By: #### P 8 ####[facility] [place], [place] [address] Urea nitrogen [Mass/Vol] 21 mg/dL High 7-18 [facility] Comment on above: Performed By: #### P 8 ####[facility] [place], [place] [address] Chloride [Moles/Vol] 110 mmol/L High 98-107 [facility] Comment on above: Performed By: #### P 8 ####[facility] [place], [place] [address] Potassium [Moles/Vol] 4.1 mmol/L Normal 3.5-5.1 [facility] Comment on above: Performed By: #### P 8 ####[facility] [place], [place] [address] Sodium [Moles/Vol] 143 mmol/L Normal 136-145 [facility] Comment on above: Performed By: #### P 8 ####[address] [address] CHEST 1 VIEWon 06-04-2018 CHEST 1 VIEW Performed at [facility] APPROVED BY: Zunilda Loyola MD EXAM TITLE: CHEST 1 VIEW DATE: 06/04/2018 05:59 INDICATION: Postoperative COMPARISON: 06/03/2018 FINDINGS: There is continued opacity at left base secondary to atelectasis and pleural fluid. Right lung is relatively clear. There is no visible pneumothorax. Central venous catheter are stable. Heart is mildly enlarged and there are sternotomy wires. IMPRESSION: Stable appearance. Normal [facility] Hemogramon 06-04-2018 Erythrocyte distribution width (RBC) [Ratio] 14.0 % Normal 11.7-14.4 [facility] Comment on above: Performed By: #### C BC1 ####[address] [address] Hematocrit (Bld) [Volume fraction] 23.1 % Low 34.1-44.9 [facility] Comment on above: Performed By: #### C BC1 ####[address] [address] Hemoglobin (Bld) [Mass/Vol] 7.3 g/dL Low 11.2-15. 7 [facility] Comment on above: Performed By: #### C BC1 ####[facility] [place], [place] [address] MCH (RBC) [Entitic mass] 29.1 pg Normal 25.6-32.2 [facility] Comment on above: Performed By: #### C BC1 ####[address] [address] MCHC (RBC) [Mass/Vol] 31.6 % Normal 31.6-34.8 [facility] Comment on above: Performed By: #### C BC1 ####[address] [address] MCV (RBC) [Entitic vol] 92.0 fL Normal 79.4-94.8 [facility] Comment on above: Performed By: #### C BC1 ####[address] [address] Platelet mean volume (Bld) [Entitic vol] 11.6 fL Normal 9.4-12.3 [facility] Comment on above: Performed By: #### C BC1 ####[address] [address] Platelets (Bld) [#/Vol] 245 thou/cmm Normal 182-369 [facility] Comment on above: Performed By: #### C BC1 ####[address] [address] RBC (Bld) [#/Vol] 2.51 mil/cmm Low 3.93-5.22 [facility] Comment on above: Performed By: #### C BC1 ####[address] [address] RDW SD 47.4 fl High 36.4-46.3 [facility] Comment on above: Performed By: #### C BC1 ####[address] [address] WBC (Bld) [#/Vol] 8.24 thou/cmm Normal 3.98-10.04 [facility] Comment on above: Performed By: #### C BC1 ####[facility] [place], [place] [address] Basic Panelon 06-03-2018 Creatinine [Mass/Vol] 0.72 mg/dL Normal 0.51-0.95 [facility] Comment on above: Performed By: #### H EPAP #### [facility] [place], [place] [address] Anion gap [Moles/Vol] 12 mmol/L Normal 8-16 [facility] Comment on above: Performed By: #### H EPAP #### [facility] [place], [place] [address] CO2 [Moles/Vol] 24 mmol/L Normal 21-32 [facility] Comment on above: Performed By: #### H EPAP #### [facility] [place], [place] [address] Urea nitrogen [Mass/Vol] 21 mg/dL High 7-18 [facility] Comment on above: Performed By: #### H EPAP #### [facility] [place], [place] [address] Calcium [Mass/Vol] 7.7 mg/dL Low 8.5-10.1 [facility] Comment on above: Performed By: #### H EPAP #### [facility] [place], [place] [address] Glucose [Mass/Vol] 210 mg/dL High 70-99 [facility] Comment on above: Performed By: #### H EPAP #### [facility] [place], [place] [address] Chloride [Moles/Vol] 110 mmol/L High 98-107 [facility] Comment on above: Performed By: #### H EPAP #### [facility] [place], [place] [address] Potassium [Moles/Vol] 3.8 mmol/L Normal 3.5-5.1 [facility] Comment on above: Performed By: #### H EPAP #### [facility] [place], [place] [address] Sodium [Moles/Vol] 142 mmol/L Normal 136-145 [facility] Comment on above: Performed By: #### H EPAP #### [facility] [place] [address] CHEST 1 VIEWon 06-03-2018 CHEST 1 VIEW Performed at [facility] APPROVED BY: Zenon King MD EXAMINATION: [...] involves the rest of the chest. Normal [facility] Ferritinon 06-03-2018 Ferritin [Mass/Vol] 293.80 ng/mL High 8.00-252.00 [facility] Comment on above: Performed By: #### F ERR ####[facility] [place] [address] Hemogramon 06-03-2018 Erythrocyte distribution width (RBC) [Ratio] 13.5 % Normal 11.7-14.4 [facility] Comment on above: Performed By: #### H EPAP #### [facility] [place] [address] Hematocrit (Bld) [Volume fraction] 22.6 % Low 34.1-44.9 [facility] Comment on above: Performed By: #### H EPAP #### [facility] [place] [address] Hemoglobin (Bld) [Mass/Vol] 7.0 g/dL Critically low 11.2 -15.7 [facility] Comment on above: Performed By: #### H EPAP #### [facility] [address] [place], [place] [address] MCH (RBC) [Entitic mass] 28.9 pg Normal 25.6-32.2 [facility] Comment on above: Performed By: #### H EPAP #### [facility] [address] [place], [place] [address] MCHC (RBC) [Mass/Vol] 31.0 % Low 31.6-34.8 [facility] Comment on above: Performed By: #### H EPAP #### [facility] [place] [address] MCV (RBC) [Entitic vol] 93.4 fL Normal 79.4-94.8 [facility] Comment on above: Performed By: #### H EPAP #### [facility] [place] [address] Nucleated RBC (Bld) [#/Vol] 0.02 thou/cmm High 0.00- 0.01 [facility] Comment on above: Performed By: #### H EPAP #### [facility] [place] [address] Nucleated RBC/100 WBC (Bld) [Ratio] 0.2 % Normal 0.0-0.2 [facility] Comment on above: Performed By: #### H EPAP #### [facility] [address] [place], [place] [address] Platelet mean volume (Bld) [Entitic vol] 12.6 fL High 9.4-12.3 [facility] Comment on above: Performed By: #### H EPAP #### [facility] [address] [place], [place] [address] Platelets (Bld) [#/Vol] 181 thou/cmm Low 182-369 [facility] Comment on above: Performed By: #### H EPAP #### [facility] [place], [place] [address] RBC (Bld) [#/Vol] 2.42 mil/cmm Low 3.93-5.22 [facility] Comment on above: Performed By: #### H EPAP #### [facility] [place] [address] RDW SD 47.1 fl High 36.4-46.3 [facility] Comment on above: Performed By: #### H EPAP #### [facility] [address] [place] [address] WBC (Bld) [#/Vol] 9.22 thou/cmm Normal 3.98-10.04 [facility] Comment on above: Performed By: #### H EPAP #### [facility] [address] [place] [address] Basic Panelon 06-02-2018 Creatinine [Mass/Vol] 0.79 mg/dL Normal 0.51-0.95 [facility] Comment on above: Performed By: #### H EPAP #### [facility] [address] [place] [address] Anion gap [Moles/Vol] 10 mmol/L Normal 8-16 [facility] Comment on above: Performed By: #### H EPAP #### [facility] [address] [place] [address] CO2 [Moles/Vol] 23 mmol/L Normal 21-32 [facility] Comment on above: Performed By: #### H EPAP #### [facility] [place] [address] Urea nitrogen [Mass/Vol] 22 mg/dL High 7-18 [facility] Comment on above: Performed By: #### H EPAP #### [facility] [place] [address] Calcium [Mass/Vol] 7.6 mg/dL Low 8.5-10.1 [facility] Comment on above: Performed By: #### H EPAP #### [facility] [place] [address] Glucose [Mass/Vol] 130 mg/dL High 70-99 [facility] Comment on above: Performed By: #### H EPAP #### [facility] [place] [address] Chloride [Moles/Vol] 112 mmol/L High 98-107 [facility] Comment on above: Performed By: #### H EPAP #### [facility] [address] [place] [address] Potassium [Moles/Vol] 3.8 mmol/L Normal 3.5-5.1 [facility] Comment on above: Performed By: #### H EPAP #### [facility] [place] [address] Sodium [Moles/Vol] 141 mmol/L Normal 136-145 [facility] Comment on above: Performed By: #### H EPAP #### [facility] [place] [address] CHEST 1 VIEWon 06-02-2018 CHEST 1 VIEW Performed at [facility] APPROVED BY: Triston Xiao MD EXAMINATION: [...] WITH ADJACENT ATELECTASIS OR DEVELOPING PNEUMONIA. Normal [facility] Hemogramon 06-02-2018 Erythrocyte distribution width (RBC) [Ratio] 13.6 % Normal 11.7-14.4 [facility] Comment on above: Performed By: #### H EPAP #### [facility] [place] [address] Hematocrit (Bld) [Volume fraction] 22.9 % Low 34.1-44.9 [facility] Comment on above: Performed By: #### H EPAP #### [facility] [place] [address] Hemoglobin (Bld) [Mass/Vol] 7.0 g/dL Critically low 11.2 -15.7 [facility] Comment on above: Result Comment: Repe ated AND verified Performed By: #### H EPAP #### [facility] [place] [address] MCH (RBC) [Entitic mass] 28.8 pg Normal 25.6-32.2 [facility] Comment on above: Performed By: #### H EPAP #### [facility] [place] [address] MCHC (RBC) [Mass/Vol] 30.6 % Low 31.6-34.8 [facility] Comment on above: Performed By: #### H EPAP #### [place] [address] MCV (RBC) [Entitic vol] 94.2 fL Normal 79.4-94.8 [facility] Comment on above: Performed By: #### H EPAP #### [facility] [place] [address] Platelet mean volume (Bld) [Entitic vol] 12.7 fL High 9.4-12.3 [facility] Comment on above: Performed By: #### H EPAP #### [facility] [place] [address] Platelets (Bld) [#/Vol] 137 thou/cmm Low 182-369 [facility] Comment on above: Performed By: #### H EPAP #### [place] [address] RBC (Bld) [#/Vol] 2.43 mil/cmm Low 3.93-5.22 [facility] Comment on above: Performed By: #### H EPAP #### [facility] [place] [address] RDW SD 46.6 fl High 36.4-46.3 [facility] Comment on above: Performed By: #### H EPAP #### [place] [address] WBC (Bld) [#/Vol] 9.27 thou/cmm Normal 3.98-10.04 [facility] Comment on above: Performed By: #### H EPAP #### [facility] [place] [address] Iron % Saturationon 06-02-20 18 Iron % Saturation 7 % Low 20-55 [facility] Comment on above: Performed By: #### H EPAP #### [facility] [place] [address] Iron Binding Cap. 112 ug/dL Low 250-450 [facility] Comment on above: Performed By: #### H EPAP #### [facility] [place] [address] Iron Serum 8 ug/dL Low 50-170 [facility] Comment on above: Performed By: #### H EPAP #### [place] [address] Urinalysis Routineon 018 Bacteria LM.HPF (Urine sed) [#/Area] 4+ Abnormal None [facility] Comment on above: Performed By: #### H EPAP #### [place] [address] Ep Cells Urine 0.8 /hpf Normal 0.0-5.0 [facility] Comment on above: Performed By: #### H EPAP #### [place] [address] Hyaline Cast 0.4 /lpf Normal 0.0-1.0 [facility] Comment on above: Performed By: #### H EPAP #### [place] [address] RBC LM.HPF (Urine sed) [#/Area] 2.5 /[HPF] Normal 0.0-5.0 [facility] Comment on above: Performed By: #### H EPAP #### [facility] [address] [place] [address] WBC LM.HPF (Urine sed) [#/Area] 6.7 /[HPF] High 0.0-5.0 [facility] Comment on above: Performed By: #### H EPAP #### [facility] [place] [address] Appearance (U) CLOUDY Normal [facility] Comment on above: Performed By: #### H EPAP #### [facility] [place] [address] Bilirubin (U) [Mass/Vol] Negative Normal Negative [facility] Comment on above: Performed By: #### H EPAP #### [facility] [address] [place] [address] Color (U) YELLOW Normal [facility] Comment on above: Performed By: #### H EPAP #### [facility] [place] [address] Glucose Ql (U) Negative Normal Negative [facility] Comment on above: Performed By: #### H EPAP #### [place] [address] Hemoglobin,Urine Negative Normal Negative [facility] Comment on above: Performed By: #### H EPAP #### [facility] [place] [address] Ketone Urine Negative Normal Negative [facility] Comment on above: Performed By: #### H EPAP #### [facility] [place] [address] Leukocytes Esterase TRACE Abnormal Negative [facility] Comment on above: Performed By: #### H EPAP #### [facility] [place] [address] Nitrites Urine Negative Normal Negative [facility] Comment on above: Performed By: #### H EPAP #### [facility] [place] [address] pH (U) 7.5 [pH] Normal 5.0-8.0 [facility] Comment on above: Performed By: #### H EPAP #### [facility] [place] [address] Protein (U) [Mass/Vol] 30 mg/dL Abnormal Negative [facility] Comment on above: Performed By: #### H EPAP #### [facility] [place] [address] Specific [place], Ur 1.027 Normal 1.005-1.030 [facility] Comment on above: Performed By: #### H EPAP #### [facility] [place] [address] Urobilinogen,Ur 0.2 EU/dL Normal 0.0-1.0 [facility] Comment on above: Performed By: #### H EPAP #### [facility] [address] [place] [address] Basic Panelon 06-01-2018 Creatinine [Mass/Vol] 0.95 mg/dL Normal 0.51-0.95 [facility] Comment on above: Performed By: #### L IP #### [facility] [address] [place] [address] Anion gap [Moles/Vol] 11 mmol/L Normal 8-16 [facility] Comment on above: Performed By: #### L IP #### [place] [address] CO2 [Moles/Vol] 21 mmol/L Normal 21-32 [facility] Comment on above: Performed By: #### L IP #### [facility] [place] [address] Urea nitrogen [Mass/Vol] 19 mg/dL High 7-18 [facility] Comment on above: Performed By: #### L IP #### [place] [address] Calcium [Mass/Vol] 7.4 mg/dL Low 8.5-10.1 [facility] Comment on above: Performed By: #### L IP #### [facility] [place] [address] Glucose [Mass/Vol] 135 mg/dL High 70-99 [facility] Comment on above: Performed By: #### L IP #### [place] [address] Chloride [Moles/Vol] 111 mmol/L High 98-107 [facility] Comment on above: Performed By: #### L IP #### [facility] [place], [place] [address] Potassium [Moles/Vol] 4.3 mmol/L Normal 3.5-5.1 [facility] Comment on above: Performed By: #### L IP #### [facility] [place] [address] Sodium [Moles/Vol] 139 mmol/L Normal 136-145 [facility] Comment on above: Performed By: #### L IP #### [facility] [place] [address] Blood Gas Arterialon 06-01-2 018 Base Excess -5.1 mEq/L Normal -2.5 to 2.5 [facility] Comment on above: Performed By: #### L IP #### [facility] [address] [place] [address] HCO3 (Bld) [Moles/Vol] 21.4 mmol/L Low 22.0-26.0 [facility] Comment on above: Performed By: #### L IP #### [facility] [address] [place] [address] O2% Sat Arterial 98.4 % High 95.0-98.0 [facility] Comment on above: Performed By: #### L IP #### [facility] [place] [address] PCO2 Arterial 47.3 mm Hg High 36.0-46.0 [facility] Comment on above: Performed By: #### L IP #### [facility] [place] [address] pH Arterial 7.274 Low 7.350-7.450 [facility] Comment on above: Performed By: #### L IP #### [facility] [place] [address] PO2 Arterial 142.6 mm Hg High 85.0-96.0 [facility] Comment on above: Performed By: #### L IP #### [facility] [place] [address] FIO2 36 % Normal [facility] Comment on above: Performed By: #### L IP #### [facility] 1 [place] [id number] CHEST 1 VIEWon 06-01-2018 CHEST 1 VIEW Performed at [facility] APPROVED BY: Triston Xiao MD EXAMINATION: [...] SCARRING WITHIN THE LEFT MIDLUNG REGION. Normal [facility] CHEST 1 VIEW Performed at [facility] APPROVED BY: Qamar Ndiaye MD PORTABLE [...] atelectasis. Remaining life-support equipment as noted. Normal [facility] Hcton 06-01-2018 Hematocrit (Bld) [Volume fraction] 25.2 % Low 34.1-44.9 [facility] Comment on above: Performed By: #### L IP #### [facility] [address] [place] [address] Hemogramon 06-01-2018 Erythrocyte distribution width (RBC) [Ratio] 13.5 % Normal 11.7-14.4 [facility] Comment on above: Performed By: #### L IP #### [facility] [address] [place] [address] Hematocrit (Bld) [Volume fraction] 26.4 % Low 34.1-44.9 [facility] Comment on above: Performed By: #### L IP #### [facility] [address] [place] [address] Hemoglobin (Bld) [Mass/Vol] 8.1 g/dL Low 11.2-15. 7 [facility] Comment on above: Performed By: #### L IP #### [facility] [address] [place] [address] MCH (RBC) [Entitic mass] 29.2 pg Normal 25.6-32.2 [facility] Comment on above: Performed By: #### L IP #### [facility] [address] [place] [address] MCHC (RBC) [Mass/Vol] 30.7 % Low 31.6-34.8 [facility] Comment on above: Performed By: #### L IP #### [facility] [address] [place] [address] MCV (RBC) [Entitic vol] 95.3 fL High 79.4-94.8 [facility] Comment on above: Performed By: #### L IP #### [facility] [address] [place] [address] Platelet mean volume (Bld) [Entitic vol] 11.8 fL Normal 9.4-12.3 [facility] Comment on above: Performed By: #### L IP #### [facility] [address] [place] [address] Platelets (Bld) [#/Vol] 129 thou/cmm Low 182-369 [facility] Comment on above: Performed By: #### L IP #### [facility] [address] [place] [address] RBC (Bld) [#/Vol] 2.77 mil/cmm Low 3.93-5.22 [facility] Comment on above: Performed By: #### L IP #### [facility] [address] [place] [address] RDW SD 47.1 fl High 36.4-46.3 [facility] Comment on above: Performed By: #### L IP #### [facility] [address] [place] [address] WBC (Bld) [#/Vol] 13.68 thou/cmm High 3.98-10.04 [facility] Comment on above: Performed By: #### L IP #### [facility] [address] [place] [address] Hgbon 06-01-2018 Hemoglobin (Bld) [Mass/Vol] 7.8 g/dL Low 11.2-15. 7 [facility] Comment on above: Performed By: #### L IP #### [facility] [address] [place] [address] Magnesium Bloodon 06-01-2018 Magnesium [Mass/Vol] 2.5 mg/dL Normal 1.6-2.6 [facility] Comment on above: Performed By: #### H EPAP #### [place] [address] Magnesium [Mass/Vol] 2.4 mg/dL Normal 1.6-2.6 [facility] Comment on above: Performed By: #### L IP #### [place] [address] Potassium Bloodon 06-01-2018 Potassium [Moles/Vol] 3.9 mmol/L Normal 3.5-5.1 [facility] Comment on above: Performed By: #### H EPAP #### [place] [address] Basic Panelon 05-31-2018 Creatinine [Mass/Vol] 0.78 mg/dL Normal 0.51-0.95 [facility] Comment on above: Performed By: #### G FR #### [place] [address] Anion gap [Moles/Vol] 13 mmol/L Normal 8-16 [facility] Comment on above: Performed By: #### G FR #### [address], [place] [address] Calcium [Mass/Vol] 7.9 mg/dL Low 8.5-10.1 [facility] Comment on above: Performed By: #### G FR #### [facility] [place], [place] [address] CO2 [Moles/Vol] 22 mmol/L Normal 21-32 [facility] Comment on above: Performed By: #### G FR #### [facility] [place], [place] [address] Glucose [Mass/Vol] 145 mg/dL High 70-99 [facility] Comment on above: Performed By: #### G FR #### [facility] [place] [address] Urea nitrogen [Mass/Vol] 16 mg/dL Normal 7-18 [facility] Comment on above: Performed By: #### G FR #### [facility] [address] [place], [place] [address] Chloride [Moles/Vol] 112 mmol/L High 98-107 [facility] Comment on above: Performed By: #### G FR #### [facility] [address] [place], [place] [address] Potassium [Moles/Vol] 4.0 mmol/L Normal 3.5-5.1 [facility] Comment on above: Performed By: #### G FR #### [facility] [address] [place], [place] [address] Sodium [Moles/Vol] 143 mmol/L Normal 136-145 [facility] Comment on above: Performed By: #### G FR #### [facility] [address] [place], [place] [address] Blood Gas Arterialon 12-27-2 018 FIO2 32 % Normal [facility] Comment on above: Performed By: #### G FR #### [facility] [address] [place], [place] [address] Base Excess -4.1 mEq/L Normal -2.5 to 2.5 [facility] Comment on above: Performed By: #### G FR #### [facility] [address] [place] [address] HCO3 (Bld) [Moles/Vol] 20.9 mmol/L Low 22.0-26.0 [facility] Comment on above: Performed By: #### G FR #### [facility] [address] [place] [address] O2% Sat Arterial 98.2 % High 95.0-98.0 [facility] Comment on above: Performed By: #### G FR #### [facility] [address] [place] [address] PCO2 Arterial 37.7 mm Hg Normal 36.0-46.0 [facility] Comment on above: Performed By: #### G FR #### [facility] [address] [place] [address] pH Arterial 7.362 Normal 7.350-7.450 [facility] Comment on above: Performed By: #### G FR #### [facility] [address] [place] [address] PO2 Arterial 119.4 mm Hg High 85.0-96.0 [facility] Comment on above: Performed By: #### G FR #### [facility] [address] [place] [address] Base Excess -7.9 mEq/L Normal -2.5 to 2.5 [facility] Comment on above: Performed By: #### G FR #### [facility] [address] [place] [address] HCO3 (Bld) [Moles/Vol] 17.4 mmol/L Low 22.0-26.0 [facility] Comment on above: Performed By: #### G FR #### [facility] [address] [place] [address] O2% Sat Arterial 96.9 % Normal 95.0-98.0 [facility] Comment on above: Performed By: #### G FR #### [facility] [address] [place] [address] PCO2 Arterial 34.4 mm Hg Low 36.0-46.0 [facility] Comment on above: Performed By: #### G FR #### [facility] [address] [place] [address] pH Arterial 7.322 Low 7.350-7.450 [facility] Comment on above: Performed By: #### G FR #### [facility] [address] [place] [address] PO2 Arterial 89.7 mm Hg Normal 85.0-96.0 [facility] Comment on above: Performed By: #### G FR #### [facility] [address] [place] [address] FIO2 30 % Normal [facility] Comment on above: Performed By: #### G FR #### [facility] [address] [place] [address] CHEST 1 VIEWon 05-31-2018 CHEST 1 VIEW Performed at [facility] APPROVED BY: Triston Xiao MD EXAMINATION: CHEST RADIOGRAPH (PORTABLE SINGLE VIEW AP) Exam Date/Time: 05/31/2018 5:33 AM Indication: Postop day 1; evaluate line position Comparison: Chest x-ray done the prior day RESULT: Lines, tubes, and devices: Mallory-Chaya catheter, mediastinal drain and left thoracostomy tube are unchanged. Lungs and pleura: No focal consolidation, mass or pleural effusion is seen. Cardiomediastinal silhouette: Normal in appearance. Bony thorax is appropriate for the patient's age. No pneumothorax is seen. IMPRESSION: No acute or active intrathoracic abnormality is seen. Normal [facility] Hemogramon 05-31-2018 Erythrocyte distribution width (RBC) [Ratio] 13.1 % Normal 11.7-14.4 [facility] Comment on above: Performed By: #### G FR #### [facility] [address] [place] [address] Hematocrit (Bld) [Volume fraction] 28.7 % Low 34.1-44.9 [facility] Comment on above: Performed By: #### G FR #### [facility] [address] [place] [address] Hemoglobin (Bld) [Mass/Vol] 9.2 g/dL Low 11.2-15. 7 [facility] Comment on above: Performed By: #### G FR #### [facility] [address] [place] [address] MCH (RBC) [Entitic mass] 29.2 pg Normal 25.6-32.2 [facility] Comment on above: Performed By: #### G FR #### [facility] [address] [place] [address] MCHC (RBC) [Mass/Vol] 32.1 % Normal 31.6-34.8 [facility] Comment on above: Performed By: #### G FR #### [facility] [address] [place] [address] MCV (RBC) [Entitic vol] 91.1 fL Normal 79.4-94.8 [facility] Comment on above: Performed By: #### G FR #### [facility] [address] [place] [address] Platelet mean volume (Bld) [Entitic vol] 12.2 fL Normal 9.4-12.3 [facility] Comment on above: Performed By: #### G FR #### [facility] [address] [place] [address] Platelets (Bld) [#/Vol] 148 thou/cmm Low 182-369 [facility] Comment on above: Performed By: #### G FR #### [facility] [address] [place] [address] RBC (Bld) [#/Vol] 3.15 mil/cmm Low 3.93-5.22 [facility] Comment on above: Performed By: #### G FR #### [facility] [address] [place] [address] RDW SD 43.3 fl Normal 36.4-46.3 [facility] Comment on above: Performed By: #### G FR #### [facility] [address] [place] [address] WBC (Bld) [#/Vol] 17.35 thou/cmm High 3.98-10.04 [facility] Comment on above: Performed By: #### G FR #### [facility] [address] [place] [address] Magnesium Bloodon 05-31-2018 Magnesium [Mass/Vol] 2.4 mg/dL Normal 1.6-2.6 [facility] Comment on above: Performed By: #### L IP #### [facility] [address] [place] [address] Protimeon 05-31-2018 INR Coag (PPP) [Relative time] 1.04 {INR} Normal 0.90-1.30 [facility] Comment on above: Result Comment: Note : Reference Range Change Vitamin K Antagonist (VKA) Therapeutic Range: INR 2 to 3 (Target INR of 2.5) Note: For patients treated with VKA drugs, such as warfarin, the [place] [employer] 2012 Guideline recommends [...] Chest 2012; 141:7S-47S Deng RA et al. [facility] 2017; 70: 252-289 Performed By: #### G FR #### [facility] [address] [place] [address] PT Coag (PPP) [Time] 10.8 s Normal 9.7-13.0 [facility] Comment on above: Performed By: #### G FR #### [facility] [address] [place] [address] ACT Arterial Panel (i-STAT)o n 05-30-2018 Kaolin ACT ( i-STAT) 120 sec Normal 74-137 [facility] Comment on above: Performed By: #### P 8 #### [facility] [address] [place] [address] Activated PTTon 05-30-2018 aPTT Coag (Bld) [Time] 28.2 s Normal 23.0-32.4 [facility] Comment on above: Result Comment: Note [...] laboratory APTT reagent in use throughout the [facility]. Performed By: #### G FR #### [place] [address] aPTT Coag (Bld) [Time] 49.9 s High 23.0-32.4 [facility] Comment on above: Result Comment: Note [...] laboratory APTT reagent in use throughout the [facility]. Performed By: #### P 8 #### [place] [address] Basic Panelon 05-30-2018 Creatinine [Mass/Vol] 0.79 mg/dL Normal 0.51-0.95 [facility] Comment on above: Performed By: #### G FR #### [place] [address] Anion gap [Moles/Vol] 13 mmol/L Normal 8-16 [facility] Comment on above: Performed By: #### G FR #### [place] [id number] CO2 [Moles/Vol] 22 mmol/L Normal 21-32 [facility] Comment on above: Performed By: #### G FR #### [facility] [address] [place], [place] [address] Glucose [Mass/Vol] 119 mg/dL High 70-99 [facility] Comment on above: Performed By: #### G FR #### [facility] [address] [place], [place] [address] Urea nitrogen [Mass/Vol] 12 mg/dL Normal 7-18 [facility] Comment on above: Performed By: #### G FR #### [facility] [address] [place], [place] [address] Calcium [Mass/Vol] 8.0 mg/dL Low 8.5-10.1 [facility] Comment on above: Performed By: #### G FR #### [facility] [address] [place], [place] [address] Chloride [Moles/Vol] 113 mmol/L High 98-107 [facility] Comment on above: Performed By: #### G FR #### [facility] [address] [place], [place] [address] Potassium [Moles/Vol] 3.8 mmol/L Normal 3.5-5.1 [facility] Comment on above: Performed By: #### G FR #### [facility] [address] [place], [place] [address] Sodium [Moles/Vol] 144 mmol/L Normal 136-145 [facility] Comment on above: Performed By: #### G FR #### [facility] [address] [place], [place] [address] Blood Gas Arterialon 12--2 018 Base Excess -3.9 mEq/L Normal -2.5 to 2.5 [facility] Comment on above: Performed By: #### P 8 #### [facility] [address] [place], [place] [address] HCO3 (Bld) [Moles/Vol] 21.1 mmol/L Low 22.0-26.0 [facility] Comment on above: Performed By: #### P 8 #### [facility] [address] [place], [place] [address] O2% Sat Arterial 99.0 % High 95.0-98.0 [facility] Comment on above: Performed By: #### P 8 #### [facility] [address] [place] [address] PCO2 Arterial 36.4 mm Hg Normal 36.0-46.0 [facility] Comment on above: Performed By: #### P 8 #### [facility] [address] [place] [address] pH Arterial 7.377 Normal 7.350-7.450 [facility] Comment on above: Performed By: #### P 8 #### [facility] [address] [place] [address] PO2 Arterial 176.9 mm Hg High 85.0-96.0 [facility] Comment on above: Performed By: #### P 8 #### [facility] [address] [place] [address] FIO2 50 % Normal [facility] Comment on above: Performed By: #### P 8 #### [facility] [address] [place] [address] CG8 Arterial Panel (i-STAT)o n 05-30-2018 Base Excess (i-STAT) 0.0 mmol/L Normal -2.0 to 3.0 [facility] Comment on above: Performed By: #### P 8 #### [facility] [address] [place] [address] Glucose [Mass/Vol] 133 mg/dL High 70-99 [facility] Comment on above: Performed By: #### P 8 #### [facility] [address] [place] [address] HCO3 (Bld) [Moles/Vol] 24.9 mmol/L Normal 22.0-26.0 [facility] Comment on above: Performed By: #### P 8 #### [facility] [address] [place] [address] Hematocrit (Bld) [Volume fraction] 29 %PCV Low 38-51 [facility] Comment on above: Performed By: #### P 8 #### [facility] [address] [place] [address] Hemoglobin (Bld) [Mass/Vol] 9.9 g/dL Low 12.0-17. 0 [facility] Comment on above: Performed By: #### P 8 #### [facility] [address] [place] [address] Ionized Calcium (iSTAT) 4.5 mg/dL Normal 4.5-5.3 [facility] Comment on above: Performed By: #### P 8 #### [facility] [address] [place] [address] O2% Sat. (i-STAT) 100.0 % High 95.0-98.0 [facility] Comment on above: Performed By: #### P 8 #### [place] [address] Oxygen (Bld) [Partial pressure] 288.0 mm Hg High 80.0-105.0 [facility] Comment on above: Performed By: #### P 8 #### [place] [address] PCO2 (i-STAT) 41.7 mm Hg Normal 35.0-45.0 [facility] Comment on above: Performed By: #### P 8 #### [place] [address] pH (Bld) 7.384 [pH] Normal 7.350-7.450 [facility] Comment on above: Performed By: #### P 8 #### [address] [address] Potassium [Moles/Vol] 3.5 mmol/L Normal 3.5-4.9 [facility] Comment on above: Performed By: #### P 8 #### [address] [address] Sodium [Moles/Vol] 141 mmol/L Normal 138-146 [facility] Comment on above: Performed By: #### P 8 #### [address] [address] Total CO2 (i-STAT) 26 mmol/L Normal 23-27 [facility] Comment on above: Performed By: #### P 8 #### [facility] 1 [place] [address] CG8 Venous Panel (i-STAT)on 05-30-2018 Base Excess (i-STAT) -3.0 mmol/L Normal -2.[address] [facility] Comment on above: Performed By: #### P 8 #### [facility] 1 [place] [id number] Glucose [Mass/Vol] 109 mg/dL High 70-99 [facility] Comment on above: Performed By: #### P 8 #### [facility] [address] [place] [id number] HCO3 (Bld) [Moles/Vol] 22.5 mmol/L Low 23.0-28.0 [facility] Comment on above: Performed By: #### P 8 #### [facility] [address] [place] [address] Hematocrit (Bld) [Volume fraction] 25 %PCV Low 38-51 [facility] Comment on above: Performed By: #### P 8 #### [facility] [address] [place] [address] Hemoglobin (Bld) [Mass/Vol] 8.5 g/dL Low 12.0-17. 0 [facility] Comment on above: Performed By: #### P 8 #### [facility] [address] [place] [address] Ionized Calcium (iSTAT) 4.1 mg/dL Low 4.5-5.3 [facility] Comment on above: Performed By: #### P 8 #### [facility] [address] [place] [address] O2% Sat. (i-STAT) 84.0 % Normal 35.0-85.0 [facility] Comment on above: Performed By: #### P 8 #### [facility] [address] [place], [place] [address] Oxygen (Bld) [Partial pressure] 50.0 mm Hg Normal 20.0-50.0 [facility] Comment on above: Performed By: #### P 8 #### [facility] [address] [place] [id number] PCO2 (i-STAT) 39.3 mm Hg Low 41.0-51.0 [facility] Comment on above: Performed By: #### P 8 #### [facility] [address] [place] [address] pH (Bld) 7.365 [pH] Normal 7.310-7.410 [facility] Comment on above: Performed By: #### P 8 #### [facility] [address] [place] [address] Potassium [Moles/Vol] 3.1 mmol/L Low 3.5-4.9 [facility] Comment on above: Performed By: #### P 8 #### [facility] [address] [place] [address] Sodium [Moles/Vol] 139 mmol/L Normal 138-146 [facility] Comment on above: Performed By: #### P 8 #### [facility] [address] [place] [address] Total CO2 (i-STAT) 24 mmol/L Normal 24-29 [facility] Comment on above: Performed By: #### P 8 #### [facility] [address] [place] [address] CHEST 1 VIEWon 05-30-2018 CHEST 1 VIEW Performed at [facility] APPROVED BY: MELI ROSAS MD EXAM [...] Right internal jugular central venous sheath with Mallory-Chaya catheter, catheter tip overlies the main pulmonary [...] change versus stability, if clinical concern. Normal [facility] Hemogramon 05-30-2018 Erythrocyte distribution width (RBC) [Ratio] 13.0 % Normal 11.7-14.4 [facility] Comment on above: Performed By: #### P 8 #### [facility] [address] [place] [address] Hematocrit (Bld) [Volume fraction] 31.0 % Low 34.1-44.9 [facility] Comment on above: Performed By: #### P 8 #### [facility] [address] [place] [address] Hemoglobin (Bld) [Mass/Vol] 10.0 g/dL Low 11.2-15. 7 [facility] Comment on above: Performed By: #### P 8 #### [facility] [address] [place] [address] MCH (RBC) [Entitic mass] 29.3 pg Normal 25.6-32.2 [facility] Comment on above: Performed By: #### P 8 #### [facility] [address] [place], [place] [address] MCHC (RBC) [Mass/Vol] 32.3 % Normal 31.6-34.8 [facility] Comment on above: Performed By: #### P 8 #### [facility] 1 [place] [id number] MCV (RBC) [Entitic vol] 90.9 fL Normal 79.4-94.8 [facility] Comment on above: Performed By: #### P 8 #### [facility] [address] [place], [place] [address] Platelet mean volume (Bld) [Entitic vol] 11.7 fL Normal 9.4-12.3 [facility] Comment on above: Performed By: #### P 8 #### [facility] [address] [place], [place] [address] Platelets (Bld) [#/Vol] 142 thou/cmm Low 182-369 [facility] Comment on above: Performed By: #### P 8 #### [facility] [address] [place] [id number] RBC (Bld) [#/Vol] 3.41 mil/cmm Low 3.93-5.22 [facility] Comment on above: Performed By: #### P 8 #### [facility] [address] [place] [address] RDW SD 42.7 fl Normal 36.4-46.3 [facility] Comment on above: Performed By: #### P 8 #### [facility] [address] [place] [id number] WBC (Bld) [#/Vol] 14.08 thou/cmm High 3.98-10.04 [facility] Comment on above: Performed By: #### P 8 #### [facility] [address] [place] [address] Erythrocyte distribution width (RBC) [Ratio] 12.9 % Normal 11.7-14.4 [facility] Comment on above: Performed By: #### P 8 #### [facility] [address] [place], [place] [address] Hematocrit (Bld) [Volume fraction] 37.7 % Normal 34.1-44.9 [facility] Comment on above: Performed By: #### P 8 #### [facility] [address] [place], [place] [address] Hemoglobin (Bld) [Mass/Vol] 12.2 g/dL Normal 11.2-15. 7 [facility] Comment on above: Performed By: #### P 8 #### [facility] [address] [place] [address] MCH (RBC) [Entitic mass] 29.2 pg Normal 25.6-32.2 [facility] Comment on above: Performed By: #### P 8 #### [facility] [address] [place] [address] MCHC (RBC) [Mass/Vol] 32.4 % Normal 31.6-34.8 [facility] Comment on above: Performed By: #### P 8 #### [facility] [address] [place] [address] MCV (RBC) [Entitic vol] 90.2 fL Normal 79.4-94.8 [facility] Comment on above: Performed By: #### P 8 #### [facility] [address] [place] [address] Platelet mean volume (Bld) [Entitic vol] 11.8 fL Normal 9.4-12.3 [facility] Comment on above: Performed By: #### P 8 #### [facility] [address] [place] [address] Platelets (Bld) [#/Vol] 264 thou/cmm Normal 182-369 [facility] Comment on above: Performed By: #### P 8 #### [facility] [address] [place] [address] RBC (Bld) [#/Vol] 4.18 mil/cmm Normal 3.93-5.22 [facility] Comment on above: Performed By: #### P 8 #### [facility] [address] [place] [address] RDW SD 42.8 fl Normal 36.4-46.3 [facility] Comment on above: Performed By: #### P 8 #### [facility] [address] [place] [address] WBC (Bld) [#/Vol] 8.47 thou/cmm Normal 3.98-10.04 [facility] Comment on above: Performed By: #### P 8 #### [facility] [address] [place] [address] Magnesium Bloodon 05-30-2018 Magnesium [Mass/Vol] 1.8 mg/dL Normal 1.6-2.6 [facility] Comment on above: Performed By: #### G FR #### [facility] [address] [place], [place] [address] Protimeon 05-30-2018 INR Coag (PPP) [Relative time] 1.19 {INR} Normal 0.90-1.30 [facility] Comment on above: Result Comment: Note : Reference Range Change Vitamin K Antagonist (VKA) Therapeutic Range: INR 2 to 3 (Target INR of 2.5) Note: For patients treated with VKA drugs, such as warfarin, the [place] [employer] 2012 Guideline recommends [...] Chest 2012; 141:7S-47S Deng BOURNE et al. [facility] 2017; 70: 252-289 Performed By: #### G FR #### [facility] [address] [place], [place] [address] PT Coag (PPP) [Time] 12.2 s Normal 9.7-13.0 [facility] Comment on above: Performed By: #### G FR #### [facility] [address] [place], [place] [address] Activated PTTon 05-29-2018 aPTT Coag (Bld) [Time] 52.8 s High 23.0-32.4 [facility] Comment on above: Result Comment: Note [...] laboratory APTT reagent in use throughout the [facility]. Performed By: #### E RTRP #### [facility] [address] [place], [place] [address] aPTT Coag (Bld) [Time] 55.5 s High 23.0-32.4 [facility] Comment on above: Result Comment: Note [...] laboratory APTT reagent in use throughout the [facility]. Performed By: #### E RTRP #### [facility] [address] [place], [place] [address] aPTT Coag (Bld) [Time] 41.0 s High 23.0-32.4 [facility] Comment on above: Result Comment: Note [...] laboratory APTT reagent in use throughout the [facility]. Performed By: #### E RTRP #### [facility] [address] [place], [place] [address] Basic Panelon 05-29-2018 Urea nitrogen [Mass/Vol] 17 mg/dL Normal 7-18 [facility] Comment on above: Performed By: #### E RTRP #### [facility] [address] [place], [place] [address] Creatinine [Mass/Vol] 0.66 mg/dL Normal 0.51-0.95 [facility] Comment on above: Performed By: #### E RTRP #### [facility] [address] [place], [place] [address] Anion gap [Moles/Vol] 11 mmol/L Normal 8-16 [facility] Comment on above: Performed By: #### E RTRP #### [facility] [address] [place], [place] [address] CO2 [Moles/Vol] 26 mmol/L Normal 21-32 [facility] Comment on above: Performed By: #### E RTRP #### [facility] [address] [place], [place] [address] Glucose [Mass/Vol] 191 mg/dL High 70-99 [facility] Comment on above: Performed By: #### E RTRP #### [facility] [address] [place], [place] [address] Calcium [Mass/Vol] 8.9 mg/dL Normal 8.5-10.1 [facility] Comment on above: Performed By: #### E RTRP #### [facility] [address] [place], [place] [address] Chloride [Moles/Vol] 106 mmol/L Normal 98-107 [facility] Comment on above: Performed By: #### E RTRP #### [facility] [address] [place], [place] [address] Potassium [Moles/Vol] 3.7 mmol/L Normal 3.5-5.1 [facility] Comment on above: Performed By: #### E RTRP #### [facility] [address] [place], [place] [address] Sodium [Moles/Vol] 139 mmol/L Normal 136-145 [facility] Comment on above: Performed By: #### E RTRP #### [facility] [address] [place], [place] [address] CT ANGIO NECKon 05-29-2018 CT ANGIO NECK Performed at [facility] APPROVED BY: Niels Early MD AORTIC ARCH, CAROTID BIFURCATIONS, AND AMBLER OF [place] CTA CT angiographic images were obtained in the region of the aortic arch, carotid bifurcations, [place], and proximal intracranial vasculature following [...] internal carotid artery, vertebral arteries, basilar artery, [place], or proximal intracranial vasculature. The [...] measure approximately 20-30% as described above. Normal [employer] [place] [facility] CT CERVICAL SPINE W/O CONTRA STon 05-29-2018 CT CERVICAL SPINE W/O CONTRAST Performed at [facility] APPROVED BY: Niels Early MD CERVICAL [...] IMPRESSION: Degenerative change as described above. Normal [facility] CTA HEAD WO/W IV CONon 05-29 CTA HEAD WO/W IV CON Performed at [facility] APPROVED BY: Niels Early MD AORTIC ARCH, CAROTID BIFURCATIONS, AND AMBLER OF [place] CTA CT angiographic images were obtained in the region of the aortic arch, carotid bifurcations, [place], and proximal intracranial vasculature following [...] internal carotid artery, vertebral arteries, basilar artery, [place], or proximal intracranial vasculature. The [...] measure approximately 20-30% as described above. Normal [facility] Hemogramon 05-29-2018 Erythrocyte distribution width (RBC) [Ratio] 12.8 % Normal 11.7-14.4 [facility] Comment on above: Performed By: #### E RTRP #### [facility] [address] [place] [address] Hematocrit (Bld) [Volume fraction] 36.8 % Normal 34.1-44.9 [facility] Comment on above: Performed By: #### E RTRP #### [facility] [address] [place] [address] Hemoglobin (Bld) [Mass/Vol] 11.8 g/dL Normal 11.2-15. 7 [facility] Comment on above: Performed By: #### E RTRP #### [facility] [address] [place] [address] MCH (RBC) [Entitic mass] 29.1 pg Normal 25.6-32.2 [facility] Comment on above: Performed By: #### E RTRP #### [facility] [address] [place] [address] MCHC (RBC) [Mass/Vol] 32.1 % Normal 31.6-34.8 [facility] Comment on above: Performed By: #### E RTRP #### [facility] [address] [place] [address] MCV (RBC) [Entitic vol] 90.6 fL Normal 79.4-94.8 [facility] Comment on above: Performed By: #### E RTRP #### [facility] [address] [place] [address] Platelet mean volume (Bld) [Entitic vol] 11.8 fL Normal 9.4-12.3 [facility] Comment on above: Performed By: #### E RTRP #### [facility] [address] [place], [place] [address] Platelets (Bld) [#/Vol] 264 thou/cmm Normal 182-369 [facility] Comment on above: Performed By: #### E RTRP #### [facility] [address] [place] [address] RBC (Bld) [#/Vol] 4.06 mil/cmm Normal 3.93-5.22 [facility] Comment on above: Performed By: #### E RTRP #### [facility] [address] [place] [address] RDW SD 43.0 fl Normal 36.4-46.3 [facility] Comment on above: Performed By: #### E RTRP #### [facility] [address] [place] [address] WBC (Bld) [#/Vol] 8.66 thou/cmm Normal 3.98-10.04 [facility] Comment on above: Performed By: #### E RTRP #### [facility] [address] [place] [address] Troponin Ion 05-29-2018 Troponin I.cardiac [Mass/Vol] 2.340 ng/mL Critically high 0.015-0.045 [facility] Comment on above: Performed By: #### E RTRP #### [facility] [address] [place] [address] Urinalysis Routineon 018 Bacteria LM.HPF (Urine sed) [#/Area] NONE Normal None [facility] Comment on above: Performed By: #### P 8 #### [facility] [address] [place] [address] Ep Cells Urine 2.9 /hpf Normal 0.0-5.0 [facility] Comment on above: Performed By: #### P 8 #### [facility] [address] [place] [address] Hyaline Cast 0.0 /lpf Normal 0.0-1.0 [facility] Comment on above: Performed By: #### P 8 #### [facility] [address] [place] [address] RBC LM.HPF (Urine sed) [#/Area] 1.8 /[HPF] Normal 0.0-5.0 [facility] Comment on above: Performed By: #### P 8 #### [facility] [address] [place] [address] WBC LM.HPF (Urine sed) [#/Area] 7.8 /[HPF] High 0.0-5.0 [facility] Comment on above: Performed By: #### P 8 #### [facility] [address] [place] [address] Appearance (U) CLEAR Normal [facility] Comment on above: Performed By: #### P 8 #### [facility] [address] [place] [address] Bilirubin (U) [Mass/Vol] Negative Normal Negative [facility] Comment on above: Performed By: #### P 8 #### [facility] [address] [place] [address] Color (U) YELLOW Normal [facility] Comment on above: Performed By: #### P 8 #### [facility] [address] [place] [address] Glucose Ql (U) Negative Normal Negative [facility] Comment on above: Performed By: #### P 8 #### [facility] [address] [place] [address] Hemoglobin,Urine Negative Normal Negative [facility] Comment on above: Performed By: #### P 8 #### [facility] [address] [place] [address] Ketone Urine Negative Normal Negative [facility] Comment on above: Performed By: #### P 8 #### [facility] [address] [place] [address] Leukocytes Esterase SMALL Abnormal Negative [facility] Comment on above: Performed By: #### P 8 #### [facility] [address] [place] [address] Nitrites Urine Negative Normal Negative [facility] Comment on above: Performed By: #### P 8 #### [facility] [address] [place] [address] pH (U) 6.5 [pH] Normal 5.0-8.0 [facility] Contacts+ [facility] Comment on above: Performed By: #### P 8 #### [facility] [address] [place] [address] Protein (U) [Mass/Vol] Negative Normal Negative [facility] Comment on above: Performed By: #### P 8 #### [facility] [address] [place] [address] Specific [place], Ur 1.037 Abnormal 1.005-1.030 [facility] Comment on above: Performed By: #### P 8 #### [facility] [address] [place] [address] Urobilinogen,Ur 0.2 EU/dL Normal 0.0-1.0 [facility] Comment on above: Performed By: #### P 8 #### [place] [address] ABO/Rh Confirmationon 2017 ABO group Nom (Bld) A Normal [facility] Comment on above: Performed By: #### E RTRP #### [place] [address] RH Type Positive Normal [facility] Comment on above: Performed By: #### E RTRP #### [place] [address] Activated PTTon 05-28-2018 aPTT Coag (Bld) [Time] 28.2 s Normal 23.0-32.4 [facility] Comment on above: Result Comment: Note [...] laboratory APTT reagent in use throughout the [facility]. Performed By: #### C BCD1 #### [place] [address] Basic Panelon 05-28-2018 Creatinine [Mass/Vol] 0.72 mg/dL Normal 0.51-0.95 [facility] Comment on above: Performed By: #### P 8 #### [facility] [address] [place], [place] [address] Anion gap [Moles/Vol] 14 mmol/L Normal 8-16 [facility] Comment on above: Performed By: #### P 8 #### [facility] [address] [place], [place] [address] Calcium [Mass/Vol] 8.4 mg/dL Low 8.5-10.1 [facility] Comment on above: Performed By: #### P 8 #### [facility] [address] [place], [place] [address] CO2 [Moles/Vol] 24 mmol/L Normal 21-32 [facility] Comment on above: Performed By: #### P 8 #### [facility] [address] [place], [place] [address] Glucose [Mass/Vol] 344 mg/dL High 70-99 [facility] Comment on above: Performed By: #### P 8 #### [facility] [address] [place], [place] [address] Urea nitrogen [Mass/Vol] 21 mg/dL High 7-18 [facility] Comment on above: Performed By: #### P 8 #### [facility] [address] [place], [place] [address] Chloride [Moles/Vol] 105 mmol/L Normal 98-107 [facility] Comment on above: Performed By: #### P 8 #### [facility] [address] [place], [place] [address] Potassium [Moles/Vol] 4.3 mmol/L Normal 3.5-5.1 [facility] Comment on above: Performed By: #### P 8 #### [facility] [address] [place], [place] [address] Sodium [Moles/Vol] 139 mmol/L Normal 136-145 [facility] Comment on above: Performed By: #### P 8 #### [facility] [address] [place], [place] [address] CHEST 2 VIEWSon 05-28-2018 CHEST 2 VIEWS Performed at [facility] APPROVED BY: PAUL MORA MD EXAMINATION: CHEST RADIOGRAPH (2 VIEW FRONTAL & LATERAL) CLINICAL HISTORY: Chest pain MQ: [id number] Comparison: 11/09/2013 RESULT: Lines, tubes, and devices: None. Lungs and pleura: No consolidation. No lung mass. No pleural effusion. Cardiomediastinal silhouette: Normal cardiomediastinal silhouette. Other: No bony abnormalities. IMPRESSION: No acute radiographic abnormality. Normal [facility] Troponin Ion 05-28-2018 Troponin I.cardiac [Mass/Vol] 0.844 ng/mL High 0.015-0.045 [facility] Comment on above: Performed By: #### E RTRP #### [place] [address] Hemogramon 05-28-2018 Erythrocyte distribution width (RBC) [Ratio] 12.9 % Normal 11.7-14.4 [facility] Comment on above: Performed By: #### C BCD1 #### [place] [address] Hematocrit (Bld) [Volume fraction] 37.4 % Normal 34.1-44.9 [facility] Comment on above: Performed By: #### C BCD1 #### [place] [address] Hemoglobin (Bld) [Mass/Vol] 11.7 g/dL Normal 11.2-15. 7 [facility] Comment on above: Performed By: #### C BCD1 #### [place] [address] MCH (RBC) [Entitic mass] 28.5 pg Normal 25.6-32.2 [facility] Comment on above: Performed By: #### C BCD1 #### [place] [address] MCHC (RBC) [Mass/Vol] 31.3 % Low 31.6-34.8 [facility] Comment on above: Performed By: #### C BCD1 #### [place] [address] MCV (RBC) [Entitic vol] 91.2 fL Normal 79.4-94.8 [facility] Comment on above: Performed By: #### C BCD1 #### [facility] [address] [place] [address] Platelet mean volume (Bld) [Entitic vol] 11.8 fL Normal 9.4-12.3 [facility] Comment on above: Performed By: #### C BCD1 #### [facility] [address] [place] [address] Platelets (Bld) [#/Vol] 247 thou/cmm Normal 182-369 [facility] Comment on above: Performed By: #### C BCD1 #### [facility] [address] [place] [address] RBC (Bld) [#/Vol] 4.10 mil/cmm Normal 3.93-5.22 [facility] Comment on above: Performed By: #### C BCD1 #### [facility] [address] [place] [address] RDW SD 43.3 fl Normal 36.4-46.3 [facility] Comment on above: Performed By: #### C BCD1 #### [facility] [address] [place] [address] WBC (Bld) [#/Vol] 8.52 thou/cmm Normal 3.98-10.04 [facility] Comment on above: Performed By: #### C BCD1 #### [facility] [address] [place] [address] Hemogram/Diffon 05-28-2018 Abs Immature Grans 0.02 thou/cmm Normal 0.00-0.05 [facility] Comment on above: Performed By: #### C BCD1 #### [facility] [address] [place] [address] Abs. Baso 0.05 thou/cmm Normal 0.01-0.08 [facility] Comment on above: Performed By: #### C BCD1 #### [facility] [address] [place] [address] Abs. Divide 0.57 thou/cmm Normal 0.27-0.70 [facility] Comment on above: Performed By: #### C BCD1 #### [facility] [address] [place] [address] Abs. Neut (ANC) 6.31 thou/cmm High 1.56-6.13 [facility] Comment on above: Performed By: #### C BCD1 #### [facility] [address] [place] [address] Basophils/100 WBC (Bld) 0.6 % Normal [facility] Comment on above: Performed By: #### C BCD1 #### [facility] [address] [place] [address] Eosinophils (Bld) [#/Vol] 0.14 thou/cmm Normal 0.00-0. 31 [facility] Comment on above: Performed By: #### C BCD1 #### [facility] [address] [place] [address] Eosinophils/100 WBC (Bld) 1.5 % Normal [facility] Comment on above: Performed By: #### C BCD1 #### [facility] [address] [place] [address] Erythrocyte distribution width (RBC) [Ratio] 13.0 % Normal 11.7-14.4 [facility] Comment on above: Performed By: #### C BCD1 #### [facility] [address] [place] [address] Hematocrit (Bld) [Volume fraction] 39.4 % Normal 34.1-44.9 [facility] Comment on above: Performed By: #### C BCD1 #### [facility] [address] [place] [address] Hemoglobin (Bld) [Mass/Vol] 12.4 g/dL Normal 11.2-15. 7 [facility] Comment on above: Performed By: #### C BCD1 #### [facility] [address] [place] [address] Immature Grans 0.20 % Normal [facility] Comment on above: Performed By: #### C BCD1 #### [facility] [address] [place], [place] [address] Lymphocytes (Bld) [#/Vol] 1.98 thou/cmm Normal 1.18-3. 74 [facility] Comment on above: Performed By: #### C BCD1 #### [facility] [address] [place], [place] [address] Lymphocytes/100 WBC (Bld) 21.8 % Normal [facility] Comment on above: Performed By: #### C BCD1 #### [facility] [address] [place], [place] [address] MCH (RBC) [Entitic mass] 28.8 pg Normal 25.6-32.2 [facility] Comment on above: Performed By: #### C BCD1 #### [facility] [address] [place], [place] [address] MCHC (RBC) [Mass/Vol] 31.5 % Low 31.6-34.8 [facility] Comment on above: Performed By: #### C BCD1 #### [facility] [address] [place], [place] [address] MCV (RBC) [Entitic vol] 91.6 fL Normal 79.4-94.8 [facility] Comment on above: Performed By: #### C BCD1 #### [facility] [address] [place], [place] [address] Monocytes/100 WBC (Bld) 6.3 % Normal [facility] Comment on above: Performed By: #### C BCD1 #### [facility] [address] [place], [place] [address] Platelet mean volume (Bld) [Entitic vol] 11.8 fL Normal 9.4-12.3 [facility] Comment on above: Performed By: #### C BCD1 #### [facility] [address] [place], [place] [address] Platelets (Bld) [#/Vol] 256 thou/cmm Normal 182-369 [facility] Comment on above: Performed By: #### C BCD1 #### [facility] [address] [place], [place] [address] RBC (Bld) [#/Vol] 4.30 mil/cmm Normal 3.93-5.22 [facility] Comment on above: Performed By: #### C BCD1 #### [facility] [address] [place], [place] [address] RDW SD 43.4 fl Normal 36.4-46.3 [facility] Comment on above: Performed By: #### C BCD1 #### [facility] [address] [place], [place] [address] Seg Neutrophil 69.6 % Normal [facility] Comment on above: Performed By: #### C BCD1 #### [facility] [address] [place], [place] [address] WBC (Bld) [#/Vol] 9.07 thou/cmm Normal 3.98-10.04 [facility] Comment on above: Performed By: #### C BCD1 #### [facility] [address] [place] [address] Hepatic Panelon 05-28-2018 ALP [Catalytic activity/Vol] 74 U/L Normal 46-116 [facility] Comment on above: Performed By: #### H EPAP #### [facility] [address] [place], [place] [address] Protein [Mass/Vol] 6.9 g/dL Normal 6.4-8.2 [facility] Comment on above: Performed By: #### H EPAP #### [facility] [address] [place], [place] [address] Bilirubin [Mass/Vol] 0.2 mg/dL Normal 0.2-1.0 [facility] Comment on above: Performed By: #### H EPAP #### [facility] [address] [place] [address] ALT [Catalytic activity/Vol] 25 U/L Normal 12-78 [facility] Comment on above: Performed By: #### H EPAP #### [facility] [address] [place], [place] [address] AST [Catalytic activity/Vol] 18 U/L Normal 9-37 [facility] Comment on above: Performed By: #### H EPAP #### [facility] [address] [place] [address] Bilirubin [Mass/Vol] 0.08 mg/dL Normal 0.00-0.20 [facility] Comment on above: Performed By: #### H EPAP #### [facility] [address] [place], [place] [address] Albumin [Mass/Vol] 3.3 g/dL Low 3.4-5.0 [facility] Comment on above: Performed By: #### H EPAP #### [place] [address] Hgb A1con 05-28-2018 HbA1c (Bld) [Mass fraction] 192 mg/dl Normal [facility] Comment on above: Performed By: #### C BCD1 #### [place] [address] HbA1c (Bld) [Mass fraction] 8.3 % High 4.2-6.3 [facility] Comment on above: Result Comment: Meth od is National Glycohemoglobin Standardization Program (NGSP) compliant. Performed By: #### C BCD1 #### [place] [address] Lipase Bloodon 05-28-2018 Lipase Blood 148 U/L Normal 73-393 [facility] Comment on above: Performed By: #### L IP #### [place] [address] Lipid Profileon 05-28-2018 Cholesterol in LDL [Mass/Vol] 141 mg/dL Normal [facility] Comment on above: Result Comment: No C AD and with fewer than 2 CAD risk factors <160 mg/dL No CAD but with 2 or more CAD risk factors <130 mg/dL Definite CAD or other atherosclerotic disease <100 mg/dL Performed By: #### C BCD1 #### [address] [address] Cholesterol in LDL/Cholesterol in HDL [Mass ratio] 4.4 High 0.6-3.6 [facility] Comment on above: Result Comment: LDL, VLDL,LDL/HDL, Invalid if Triglyceride >400 Performed By: #### C BCD1 #### [place] [address] Cholesterol in VLDL [Mass/Vol] 32 mg/dL Normal <50 Desired [facility] Comment on above: Performed By: #### C BCD1 #### [facility] [address] [place] [address] Triglyceride [Mass/Vol] 161 mg/dL High 0-149 [facility] Comment on above: Result Comment: < 20 0 Desirable Result invalid if not a fasting specimen. Performed By: #### C BCD1 #### [facility] [address] [place] [address] Cholesterol in HDL [Mass/Vol] 32 mg/dL Normal >40 [facility] Comment on above: Performed By: #### C BCD1 #### [facility] [address] [place] [address] Cholesterol.total/Cholester ol in HDL [Mass ratio] 6.4 {ratio} High 1.8-5.3 [facility] Comment on above: Performed By: #### C BCD1 #### [facility] [address] [place] [address] Cholesterol [Mass/Vol] 205 mg/dL High 0-199 [facility] Comment on above: Result Comment: <200 Desirable 200-240 Borderline >240 High Performed By: #### C BCD1 #### [facility] [address] [place] [address] MRSA Screenon 05-28-2018 MRSA DNA DARLIN+probe Ql (Unsp spec) Test performed at [facility] No MRSA detected. Normal [facility] Comment on above: Performed By: #### P 8 #### [place] [address] Magnesium Bloodon 05-28-2018 Magnesium [Mass/Vol] 2.2 mg/dL Normal 1.6-2.6 [facility] Comment on above: Performed By: #### C BCD1 #### [facility] [address] [place] [address] Protimeon 05-28-2018 INR Coag (PPP) [Relative time] 1.02 {INR} Normal 0.90-1.30 [facility] Comment on above: Result Comment: Note : Reference Range Change Vitamin K Antagonist (VKA) Therapeutic Range: INR 2 to 3 (Target INR of 2.5) Note: For patients treated with VKA drugs, such as warfarin, the [place] [employer] 2012 Guideline recommends [...] Chest 2012; 141:7S-47S Deng BOURNE et al. [facility] 2017; 70: 252-289 Performed By: #### C BCD1 #### [place] [address] PT Coag (PPP) [Time] 10.6 s Normal 9.7-13.0 [facility] Comment on above: Performed By: #### C BCD1 #### [place] [address] RBC Productson 05-28-2018 Xmatch Unit 1 see below Normal [facility] Comment on above: Result Comment: Comp atible Performed By: #### E RTRP #### [place] [address] Xmatch Unit 2 see below Normal [facility] Comment on above: Result Comment: Comp atible Performed By: #### E RTRP #### [place] [address] Troponin Ion 05-28-2018 Troponin I.cardiac [Mass/Vol] 4.210 ng/mL Critically high 0.015-0.045 [facility] Comment on above: Performed By: #### C BCD1 #### [place] [address] Troponin I.cardiac [Mass/Vol] 4.900 ng/mL Critically high 0.015-0.045 [facility] Comment on above: Performed By: #### C BCD1 #### [place] [address] Troponin I.cardiac [Mass/Vol] 3.790 ng/mL Critically high 0.015-0.045 [facility] Comment on above: Performed By: #### C BCD1 #### [place] [address] Troponin I.cardiac [Mass/Vol] 3.830 ng/mL Critically high 0.015-0.045 [facility] Comment on above: Performed By: #### T ROP #### [place] [address] Type and Screenon 05-28-2018 ABO group Nom (Bld) A Normal [facility] Comment on above: Performed By: #### C BCD1 #### [place] [address] Comment See Below Normal [facility] Comment on above: Result Comment: Scre en &/or Xmatch expires in 3 days at 12 midnight. Redraw patient at that time. Performed By: #### C BCD1 #### [place] [address] RH Type Positive Normal [facility] Comment on above: Performed By: #### C BCD1 #### [place] [address] Urinalysis Routineon 018 RBC LM.HPF (Urine sed) [#/Area] 0.0-3 Normal 0.0-5.0 [facility] Comment on above: Performed By: #### U RIN2 #### [place] [address] Yeast Urine NONE Normal None [facility] Comment on above: Performed By: #### U RIN2 #### [place] [address] Bacteria LM.HPF (Urine sed) [#/Area] NONE Normal None [facility] Comment on above: Performed By: #### U RIN2 #### [facility] [address] [place] [address] Ep Cells Urine 9.6 /hpf High 0.0-5.0 [facility] Comment on above: Performed By: #### U RIN2 #### [facility] [address] [place] [address] Hyaline Cast 1.5 /lpf High 0.0-1.0 [facility] Comment on above: Performed By: #### U RIN2 #### [facility] [address] [place] [address] WBC LM.HPF (Urine sed) [#/Area] 9.3 /[HPF] High 0.0-5.0 [facility] Comment on above: Performed By: #### U RIN2 #### [facility] [address] [place] [address] Appearance (U) CLOUDY Normal [facility] Comment on above: Performed By: #### U RIN2 #### [facility] [address] [place] [address] Bilirubin (U) [Mass/Vol] Negative Normal Negative [facility] Comment on above: Performed By: #### U RIN2 #### [facility] [address] [place] [address] Color (U) YELLOW Normal [facility] Comment on above: Performed By: #### U RIN2 #### [place] [address] Glucose Ql (U) >=1000 Abnormal Negative [facility] Comment on above: Performed By: #### U RIN2 #### [place] [address] Hemoglobin,Urine Negative Normal Negative [facility] Comment on above: Performed By: #### U RIN2 #### [place] [address] Ketone Urine Negative Normal Negative [facility] Comment on above: Performed By: #### U RIN2 #### [place] [address] Leukocytes Esterase Negative Normal Negative [facility] Comment on above: Performed By: #### U RIN2 #### [facility] [address] [place], [place] [address] Nitrites Urine Negative Normal Negative [facility] Comment on above: Performed By: #### U RIN2 #### [facility] [address] [place], [place] [address] pH (U) 6.5 [pH] Normal 5.0-8.0 [facility] Comment on above: Performed By: #### U RIN2 #### [facility] [address] [place] [address] Protein (U) [Mass/Vol] Negative Normal Negative [facility] Comment on above: Performed By: #### U RIN2 #### [facility] [address] [place] [address] Specific [place], Ur 1.037 Abnormal 1.005-1.030 [facility] Comment on above: Performed By: #### U RIN2 #### [facility] [address] [place] [address] Urobilinogen,Ur 0.2 EU/dL Normal 0.0-1.0 [facility] Comment on above: Performed By: #### U RIN2 #### [facility] [address] [place] [address] Vital Signs Date Time Vital Sign Value Performing Clinician Facility 12-31-2024 20:36-0400 Body temperature 98 [degF] Ximena Sylvester TRANSLATIONAL SPECIALIST-C Work Phone: [facility] 12-31-2024 20:36-0400 Diastolic blood pressure 63 mm[Hg] Ximena Sylvester TRANSLATIONAL SPECIALIST-C Work Phone: [facility] 12-31-2024 20:36-0400 Heart rate 63 /min Ximena Sylvester TRANSLATIONAL SPECIALIST-C Work Phone: [facility] 12-31-2024 20:36-0400 Respiratory rate 18 /min Ximena Sylvester TRANSLATIONAL SPECIALIST-C Work Phone: [facility] 12-31-2024 20:36-0400 SaO2% (BldA) [Mass fraction] 99 % Ximena Sylvester TRANSLATIONAL SPECIALIST-C Work Phone: [facility] 12-31-2024 20:36-0400 Systolic blood pressure 170 mm[Hg] Ximena Omero TRANSLATIONAL SPECIALIST-C Work Phone: [facility] 12-31-2024 16:03-0400 Body mass index (BMI) [Ratio] 35.9 kg/m2 Ximena Omero TRANSLATIONAL SPECIALIST-C Work Phone: [facility] 12-31-2024 16:03-0400 Body weight 80.6 kg Ximena Omero TRANSLATIONAL SPECIALIST-C Work Phone: [facility] 12-31-2024 15:51-0400 Body height 149.86 cm Ximena Omero TRANSLATIONAL SPECIALIST-C Work Phone: [facility] 12-10-2024 13:57-0400 Body height 149.86 cm Ximena Omero TRANSLATIONAL SPECIALIST-C Work Phone: [facility] 12-10-2024 13:57-0400 Body mass index (BMI) [Ratio] 34.3 kg/m2 Ximena Omero TRANSLATIONAL SPECIALIST-C Work Phone: [facility] 12-10-2024 13:57-0400 Body weight 77.11 kg Ximena Omero TRANSLATIONAL SPECIALIST-C Work Phone: [facility] 12-10-2024 13:57-0400 Diastolic blood pressure 76 mm[Hg] Ximena Omero TRANSLATIONAL SPECIALIST-C Work Phone: [facility] 12-10-2024 13:57-0400 Heart rate 88 /min Ximena Omero TRANSLATIONAL SPECIALIST-C Work Phone: [facility] 12-10-2024 13:57-0400 Respiratory rate 16 /min Ximena Omero TRANSLATIONAL SPECIALIST-C Work Phone: [facility] 12-10-2024 13:57-0400 Systolic blood pressure 123 mm[Hg] Ximena Omero TRANSLATIONAL SPECIALIST-C Work Phone: [facility] 09-02-2024 13:42-0400 Body height 149.86 cm Ximena Omero TRANSLATIONAL SPECIALIST-C Work Phone: [facility] 09-02-2024 13:42-0400 Body mass index (BMI) [Ratio] 36 kg/m2 Ximena Sylvester TRANSLATIONAL SPECIALIST-C Work Phone: [facility] 09-02-2024 13:42-0400 Body weight 80.85 kg Ximena Sylvester TRANSLATIONAL SPECIALIST-C Work Phone: [facility] 09-02-2024 13:42-0400 Diastolic blood pressure 67 mm[Hg] Ximena Sylvester TRANSLATIONAL SPECIALIST-C Work Phone: [facility] 09-02-2024 13:42-0400 Heart rate 66 /min Ximena Sylvester TRANSLATIONAL SPECIALIST-C Work Phone: [facility] 09-02-2024 13:42-0400 SaO2% (BldA) [Mass fraction] 94 % Ximena Sylvester TRANSLATIONAL SPECIALIST-C Work Phone: [facility] 09-02-2024 13:42-0400 Systolic blood pressure 130 mm[Hg] Ximena Sylvester TRANSLATIONAL SPECIALIST-C Work Phone: [facility] 08-09-2024 13:51-0500 Diastolic blood pressure 72 mm[Hg] Dr. Williams Starr DO Work Phone: [facility] 08-09-2024 13:51-0500 Heart rate 74 /min Dr. [place] Starr DO Work Phone: [facility] 08-09-2024 13:51-0500 Respiratory rate 18 /min Dr. [place] Starr DO Work Phone: [facility] 08-09-2024 13:51-0500 SaO2% (BldA) [Mass fraction] 98 % Dr. [place] Starr DO Work Phone: [facility] 08-09-2024 13:51-0500 Systolic blood pressure 154 mm[Hg] Dr. [place] Starr DO Work Phone: [facility] 07-02-2024 15:40-0500 Body mass index (BMI) [Ratio] 37.11 kg/m2 Mae Raya MD Work Phone: [facility] 07-02-2024 15:40-0500 Body weight 81.28 kg Mae Raya MD Work Phone: [facility] 07-02-2024 15:40-0500 Diastolic blood pressure 80 mm[Hg] Mae Raya MD Work Phone: [facility] 07-02-2024 15:40-0500 Systolic blood pressure 120 mm[Hg] Mae Raya MD Work Phone: [facility] 05-14-2024 15:18-0500 Body height 149.[address] [place] Starr DO Work Phone: [facility] 05-14-2024 15:18-0500 Body mass index (BMI) [Ratio] 35.3 kg/m2 Dr. [place] Starr DO Work Phone: [facility] 05-14-2024 15:18-0500 Body weight 79.[address] [place] Starr DO Work Phone: [facility] 04-23-2024 14:45-0500 Body mass index (BMI) [Ratio] 33.3 kg/m2 Dr. Williams Starr DO Work Phone: [facility] 04-23-2024 14:45-0500 Body weight 74.[address] Williams Starr DO Work Phone: [facility] 04-23-2024 14:45-0500 Diastolic blood pressure 74 mm[Hg] Dr. Williams Starr DO Work Phone: [facility] 04-23-2024 14:45-0500 Heart rate 67 /min Dr. Williams Starr DO Work Phone: [facility] 04-23-2024 14:45-0500 Respiratory rate 20 /min Dr. Williams Starr DO Work Phone: [facility] 04-23-2024 14:45-0500 SaO2% (BldA) [Mass fraction] 94 % Dr. Williams Starr DO Work Phone: [facility] 04-23-2024 14:45-0500 Systolic blood pressure 120 mm[Hg] Dr. Williams Starr DO Work Phone: [facility] 09-26-2023 14:54-0400 Body mass index (BMI) [Ratio] 35.87 kg/m2 Agustina Hirsch MD Work Phone: [facility] 09-26-2023 14:54-0400 Body weight 78.56 kg Agustina Hirsch MD Work Phone: [facility] 09-26-2023 14:54-0400 Diastolic blood pressure 64 mm[Hg] Agustina Hirsch MD Work Phone: [facility] 09-26-2023 14:54-0400 Systolic blood pressure 102 mm[Hg] Agustina Hirsch MD Work Phone: [facility] 04-12-2023 13:06-0500 Body height 149.[address] Taras Green Work Phone: [facility] 04-12-2023 13:06-0500 Body mass index (BMI) [Ratio] 34.9 kg/m2 Dr. Taras Green Work Phone: [facility] 04-12-2023 13:06-0500 Body weight 78.[address] Taras Green Work Phone: [facility] 04-12-2023 13:06-0500 Diastolic blood pressure 75 mm[Hg] Dr. Taras Green Work Phone: [facility] 04-12-2023 13:06-0500 Heart rate 65 /min Dr. Taras Green Work Phone: [facility] 04-12-2023 13:06-0500 Respiratory rate 20 /min Dr. Taras Green Work Phone: [facility] 04-12-2023 13:06-0500 SaO2% (BldA) [Mass fraction] 97 % Dr. Taras Green Work Phone: [facility] 04-12-2023 13:06-0500 Systolic blood pressure 144 mm[Hg] Dr. Taras Green Work Phone: [facility] 03-14-2023 09:50-0400 Body weight 77.56 kg Kanika Vinton BRAKE SHOE REBUILDER.DESIGN PROJECT MANAGER Work Phone: [facility] 03-14-2023 09:50-0400 Diastolic blood pressure 64 mm[Hg] Kanika Vinton BRAKE SHOE REBUILDER.DESIGN PROJECT MANAGER Work Phone: [facility] 03-14-2023 09:50-0400 Heart rate 62 /min Kanika Vinton BRAKE SHOE REBUILDER.DESIGN PROJECT MANAGER Work Phone: [facility] 03-14-2023 09:50-0400 Respiratory rate 17 /min Kanika Vinton BRAKE SHOE REBUILDER.DESIGN PROJECT MANAGER Work Phone: [facility] 03-14-2023 09:50-0400 SaO2% (BldA) [Mass fraction] 95 % Kanika Vinton BRAKE SHOE REBUILDER.DESIGN PROJECT MANAGER Work Phone: [facility] 03-14-2023 09:50-0400 Systolic blood pressure 112 mm[Hg] Kanika Vinton BRAKE SHOE REBUILDER.DESIGN PROJECT MANAGER Work Phone: [facility] 02-21-2023 14:44-0400 Body weight 75.3 kg Gladys Baird MD Work Phone: [facility] 02-21-2023 14:44-0400 Diastolic blood pressure 80 mm[Hg] Gladys Baird MD Work Phone: [facility] 02-21-2023 14:44-0400 Heart rate 72 /min Gladys Baird MD Work Phone: [facility] 02-21-2023 14:44-0400 Respiratory rate 12 /min Gladys Baird MD Work Phone: [facility] 02-21-2023 14:44-0400 SaO2% (BldA) [Mass fraction] 98 % Gladys Baird MD Work Phone: [facility] 02-21-2023 14:44-0400 Systolic blood pressure 150 mm[Hg] Gladys Baird MD Work Phone: [facility] 02-21-2023 14:36-0400 Body height 148 cm Pulm Wstr Work Phone: [facility] 02-21-2023 14:36-0400 Body weight 75.3 kg Pulm Wstr Work Phone: [facility] 02-21-2023 14:36-0400 Heart rate 72 /min Pulm Wstr Work Phone: [facility] 02-21-2023 14:36-0400 Respiratory rate 12 /min Pulm Wstr Work Phone: [facility] 02-21-2023 14:36-0400 SaO2% (BldA) [Mass fraction] 98 % Pulm Wstr Work Phone: [facility] 12-27-2022 13:06-0400 Body height 149.[address] Taras Green Work Phone: [facility] 12-27-2022 13:06-0400 Body temperature 98.3 [degF] Dr. Taras Green Work Phone: [facility] 12-27-2022 13:06-0400 Diastolic blood pressure 70 mm[Hg] Dr. Taras Green Work Phone: [facility] 12-27-2022 13:06-0400 Heart rate 80 /min Dr. Taras Green Work Phone: [facility] 12-27-2022 13:06-0400 Respiratory rate 16 /min Dr. Taras Green Work Phone: [facility] 12-27-2022 13:06-0400 SaO2% (BldA) [Mass fraction] 96 % Dr. Taras Green Work Phone: [facility] 12-27-2022 13:06-0400 Systolic blood pressure 146 mm[Hg] Dr. Taras Green Work Phone: [facility] 10-11-2022 13:16-0400 Body height 149.[address] Taras Green Work Phone: [facility] 10-11-2022 13:16-0400 Body mass index (BMI) [Ratio] 33.5 kg/m2 Dr. Taras Green Work Phone: [facility] 10-11-2022 13:16-0400 Body weight 75.[address] Taras Green Work Phone: 7(390)804-570249 [place] [address] 10-11-2022 13:16-0400 Diastolic blood pressure 68 mm[Hg] Dr. Taras Green Work Phone: 4(019)076-480849 [place] [address] 10-11-2022 13:16-0400 Heart rate 53 /min Dr. Taras Green Work Phone: [facility] 10-11-2022 13:16-0400 Respiratory rate 18 /min Dr. Taras Green Work Phone: [facility] 10-11-2022 13:16-0400 SaO2% (BldA) [Mass fraction] 97 % Dr. Taras Green Work Phone: [facility] 10-11-2022 13:16-0400 Systolic blood pressure 113 mm[Hg] Dr. Taras Green Work Phone: [facility] 07-15-2022 17:44-0500 Body temperature 97.4 [degF] Dr. Taras Green Work Phone: [facility] 07-15-2022 17:44-0500 Diastolic blood pressure 70 mm[Hg] Dr. Taras Green Work Phone: [facility] 07-15-2022 17:44-0500 Heart rate 63 /min Dr. Taras Green Work Phone: [facility] 02-10-2023 17:44-0500 Respiratory rate 17 /min Dr. Taras Green Work Phone: [facility] 07-15-2022 17:44-0500 SaO2% (BldA) [Mass fraction] 96 % Dr. Taras Green Work Phone: [facility] 07-15-2022 17:44-0500 Systolic blood pressure 106 mm[Hg] Dr. Taras Green Work Phone: 5(136)449-209649 [place] [address] 07-12-2022 13:05-0500 Body temperature 97.2 [degF] Dr. Taras Green Work Phone: 4(708)610-787749 [place] [address] 07-12-2022 13:05-0500 Diastolic blood pressure 58 mm[Hg] Dr. Taras Green Work Phone: 9(058)198-342349 [place] [address] 07-12-2022 13:05-0500 Heart rate 61 /min Dr. Taras Green Work Phone: 4(656)325-782349 [place] [address] 07-12-2022 13:05-0500 Respiratory rate 16 /min Dr. Taras Green Work Phone: [facility] 07-12-2022 13:05-0500 SaO2% (BldA) [Mass fraction] 98 % Dr. Taras Green Work Phone: [facility] 07-12-2022 13:05-0500 Systolic blood pressure 98 mm[Hg] Dr. Taras Green Work Phone: 5(535)697-869449 [place] [address] 07-12-2022 11:34-0500 Body height 149.[address] Taras Green Work Phone: [facility] 07-12-2022 11:34-0500 Body mass index (BMI) [Ratio] 33.1 kg/m2 Dr. Taras Green Work Phone: 9(888)477-843549 [place] [address] 07-12-2022 11:34-0500 Body weight 74.[address] Taras Green Work Phone: 0(709)800-816433 [place] [address] 04-21-2022 14:53-0500 Body height 149.[address] Taras Green Work Phone: [facility] Work Phone: 04-21-2022 14:53-0500 Body mass index (BMI) [Ratio] 33.7 kg/m2 Dr. Taras Green Work Phone: [facility] 04-21-2022 14:53-0500 Body weight 75.[address] Taras Green Work Phone: [facility] 04-21-2022 14:53-0500 Diastolic blood pressure 81 mm[Hg] Dr. Taras Green Work Phone: [facility] 04-21-2022 14:53-0500 Heart rate 93 /min Dr. Taras Green Work Phone: [facility] 04-21-2022 14:53-0500 Respiratory rate 18 /min Dr. Taras Green Work Phone: [facility] 04-21-2022 14:53-0500 SaO2% (BldA) [Mass fraction] 98 % Dr. Taras Green Work Phone: [facility] 04-21-2022 14:53-0500 Systolic blood pressure 137 mm[Hg] Dr. Taras Green Work Phone: [facility] 11-06-2021 10:10-0400 Body height 149.[address] Trinity Baird Work Phone: [facility] Work Phone: 11-06-2021 10:10-0400 Body mass index (BMI) [Ratio] 33.3 kg/m2 Dr. Trinity Baird Work Phone: [facility] Work Phone: 11-06-2021 10:10-0400 Body temperature 98.1 [degF] Dr. Trinity Baird Work Phone: [facility] Work Phone: 11-06-2021 10:10-0400 Body weight 74.[address] Trinity Baird Work Phone: [facility] Work Phone: 11-06-2021 10:10-0400 Diastolic blood pressure 72 mm[Hg] Dr. Trinity Baird Work Phone: [facility] Work Phone: 11-06-2021 10:10-0400 Heart rate 72 /min Dr. Trinity Baird Work Phone: [facility] Work Phone: 11-06-2021 10:10-0400 Respiratory rate 15 /min Dr. Trinity Baird Work Phone: [facility] Work Phone: 11-06-2021 10:10-0400 SaO2% (BldA) [Mass fraction] 96 % Dr. Trinity Baird Work Phone: [facility] Work Phone: 11-06-2021 10:10-0400 Systolic blood pressure 136 mm[Hg] Dr. Trinity Baird Work Phone: [facility] Work Phone: 10-18-2021 15:18-0400 Body mass index (BMI) [Ratio] 33.1 kg/m2 Dr. Taras Green Work Phone: [facility] Work Phone: 10-18-2021 15:18-0400 Body temperature 98.2 [degF] Dr. Taras Green Work Phone: [facility] Work Phone: 10-18-2021 15:18-0400 Body weight 74.[address] Taras Green Work Phone: [facility] Work Phone: 10-18-2021 15:18-0400 Diastolic blood pressure 64 mm[Hg] Dr. Taras Green Work Phone: [facility] Work Phone: 10-18-2021 15:18-0400 Heart rate 60 /min Dr. Taras Green Work Phone: [facility] Work Phone: 10-18-2021 15:18-0400 Respiratory rate 16 /min Dr. Taras Green Work Phone: [facility] Work Phone: 10-18-2021 15:18-0400 SaO2% (BldA) [Mass fraction] 97 % Dr. Taras Green Work Phone: [facility] Work Phone: 10-18-2021 15:18-0400 Systolic blood pressure 122 mm[Hg] Dr. Taras Green Work Phone: [facility] Work Phone: 10-18-2021 15:18-0400 Body height 149.[address] Trinity Baird Work Phone: [facility] Work Phone: 10-18-2021 15:18-0400 Body mass index (BMI) [Ratio] 33.1 kg/m2 Dr. Trniity Baird Work Phone: [facility] Work Phone: 10-18-2021 15:18-0400 Body temperature 98.2 [degF] Dr. Trinity Baird Work Phone: [facility] Work Phone: 10-18-2021 15:18-0400 Body weight 74.[address] Trinity Baird Work Phone: [facility] Work Phone: 10-18-2021 15:18-0400 Diastolic blood pressure 64 mm[Hg] Dr. Trinity Baird Work Phone: [facility] Work Phone: 10-18-2021 15:18-0400 Heart rate 60 /min Dr. Trinity Baird Work Phone: [facility] Work Phone: 10-18-2021 15:18-0400 Respiratory rate 16 /min Dr. Trinity Baird Work Phone: [facility] Work Phone: 10-18-2021 15:18-0400 SaO2% (BldA) [Mass fraction] 97 % Dr. Trinity Baird Work Phone: [facility] Work Phone: 10-18-2021 15:18-0400 Systolic blood pressure 122 mm[Hg] Dr. Trinity Baird Work Phone: [facility] Work Phone: 09-08-2021 15:35-0400 Body mass index (BMI) [Ratio] 33.3 kg/m2 Dr. Taras Green Work Phone: [facility] Work Phone: 09-08-2021 15:35-0400 Body weight 74.[address] Taras Green Work Phone: [facility] Work Phone: 09-08-2021 15:35-0400 Diastolic blood pressure 72 mm[Hg] Dr. Taras Green Work Phone: [facility] Work Phone: 09-08-2021 15:35-0400 Heart rate 72 /min Dr. Taras Green Work Phone: [facility] Work Phone: 09-08-2021 15:35-0400 Respiratory rate 18 /min Dr. Taras Green Work Phone: [facility] Work Phone: 09-08-2021 15:35-0400 SaO2% (BldA) [Mass fraction] 97 % Dr. Taras Green Work Phone: [facility] Work Phone: 09-08-2021 15:35-0400 Systolic blood pressure 119 mm[Hg] Dr. Taras Green Work Phone: [facility] Work Phone: 09-08-2021 15:35-0400 Body mass index (BMI) [Ratio] 33.3 kg/m2 Dr. Trinity Baird Work Phone: [facility] Work Phone: 09-08-2021 15:35-0400 Body weight 74.[address] Trinity Baird Work Phone: [facility] Work Phone: 09-08-2021 15:35-0400 Diastolic blood pressure 72 mm[Hg] Dr. Trinity Baird Work Phone: [facility] Work Phone: 09-08-2021 15:35-0400 Heart rate 72 /min Dr. Trinity Baird Work Phone: [facility] Work Phone: 09-08-2021 15:35-0400 Respiratory rate 18 /min Dr. Trinity Baird Work Phone: [facility] Work Phone: 09-08-2021 15:35-0400 SaO2% (BldA) [Mass fraction] 97 % Dr. Trinity Baird Work Phone: [facility] Work Phone: 09-08-2021 15:35-0400 Systolic blood pressure 119 mm[Hg] Dr. Trinity Baird Work Phone: [facility] Work Phone: 07-15-2021 17:35-0500 Diastolic blood pressure 106 mm[Hg] Dr. Trinity Baird Work Phone: [facility] Work Phone: 07-15-2021 17:35-0500 Heart rate 100 /min Dr. Trinity Baird Work Phone: [facility] Work Phone: 07-15-2021 17:35-0500 Respiratory rate 16 /min Dr. Trinity Baird Work Phone: [facility] Work Phone: 07-15-2021 17:35-0500 Systolic blood pressure 203 mm[Hg] Dr. Trinity Baird Work Phone: [facility] Work Phone: 07-15-2021 14:33-0500 Body mass index (BMI) [Ratio] 33.3 kg/m2 Dr. Trinity Baird Work Phone: [facility] Work Phone: 07-15-2021 14:33-0500 Body temperature 97.6 [degF] Dr. Trinity Baird Work Phone: [facility] Work Phone: 07-15-2021 14:33-0500 Body weight [address] Trinity Baird Work Phone: [facility] Work Phone: 07-15-2021 14:33-0500 SaO2% (BldA) [Mass fraction] 98 % Dr. Trinity Baird Work Phone: [facility] Work Phone: 07-15-2021 14:08-0500 Diastolic blood pressure 97 mm[Hg] Dr. Trinity Baird Work Phone: [facility] Work Phone: 07-15-2021 14:08-0500 Systolic blood pressure 171 mm[Hg] Dr. Trinity Baird Work Phone: [facility] Work Phone: 07-15-2021 08:07-0500 Body weight 74.[address] Trinity Baird Work Phone: [facility] Work Phone: 07-15-2021 08:07-0500 Heart rate 93 /min Dr. Trinity Baird Work Phone: [facility] Work Phone: 07-15-2021 08:07-0500 Respiratory rate 18 /min Dr. Trinity Baird Work Phone: [facility] Work Phone: 07-15-2021 08:07-0500 SaO2% (BldA) [Mass fraction] 97 % Dr. Trinity Baird Work Phone: [facility] Work Phone: 07-02-2020 14:37-0500 Body mass index (BMI) [Ratio] 33.9 kg/m2 Dr. Trinity Baird Work Phone: [facility] Work Phone: 04-26-2019 12:43-0500 BP Diastolic 74 mm[Hg] [place], [place] 04-26-2019 12:43-0500 BP Systolic 126 mm[Hg] [place] 04-26-2019 12:43-0500 Pulse (Heart Rate) 74 /min [place], [place] 04-26-2019 12:43-0500 Pulse Oximetry 99 % [place], [place] 04-26-2019 12:43-0500 Respiratory Rate 16 /min [facility], [place] 04-26-2019 10:59-0500 Body Temperature 98.2 [degF] [facility] 04-04-2019 17:21-0400 BMI (Body Mass Index) 30.3 kg/m2 [facility] 04-04-2019 17:21-0400 Body Temperature 98.01 [degF] [facility], [place] 04-04-2019 17:21-0400 Body weight 68.04 kg [facility] , [place] 04-04-2019 17:21-0400 BP Diastolic 86 mm[Hg] Leonides Fontaine [facility] , [place] 04-04-2019 17:21-0400 BP Systolic 168 mm[Hg] Leonides Fontaine [facility] , [place] 04-04-2019 17:21-0400 Height 149.9 cm Leonides Fontaine [facility] , [place] 04-04-2019 17:21-0400 Pulse (Heart Rate) 81 /min Leonides Fontaine [facility], [place] 04-04-2019 17:21-0400 Pulse Oximetry 98 % Leonides Fontaine [facility] , [place] 04-04-2019 17:21-0400 Respiratory Rate 18 /min Leonides Fontaine [facility], [place] 08-14-2018 20:32-0400 Body temperature 37.0 [facility] Comment on above: Performed By: #### TROP #### [place] [id number] 06-01-2018 12:04-0500 Body temperature 37.0 [facility] Comment on above: Performed By: #### LIP #### [place] [id number] 05-31-2018 07:16-0500 Body temperature 37.0 [facility] Comment on above: Performed By: #### GFR #### [place] [id number] 05-31-2018 02:14-0500 Body temperature 37.0 [facility] Comment on above: Performed By: #### GFR #### [place] [id number] 05-30-2018 17:36-0500 Body temperature 36.0 [facility] Comment on above: Performed By: #### P8 #### [place] [address] Encounters Encounter Date Encounter Type Care Provider Facility Start: 12-31-2024 End: 12-31-2024 Emergency department patient visit Ximena Sylvester TRANSLATIONAL SPECIALIST-C Work Phone: -Emergency Department Work Phone: Start: 12-31-2024 ambulatory Ximena Sylvester Facility:[facility] Start: 12-31-2024 Patient encounter procedure Ximena Sylvester TRANSLATIONAL SPECIALIST-C -Outpatient Breast Imaging Work Phone: Start: 12-10-2024 End: 12-10-[address] Abdelrahman Saldana MD -[facility] Work Phone: Start: 12-10-2024 End: 12-10-2024 ambulatory Ximena Sylvester TRANSLATIONAL SPECIALIST-C Work Phone: -[facility] Start: 12-03-2024 Non-patient / Non-visit Dr. Geri Mckeon MD -[facility] Work Phone: Start: 10-03-2024 End: 10-03-2024 Patient encounter procedure Sally CARDENAS -[facility] Work Phone: Start: 10-03-2024 End: 10-03-2024 ambulatory Severance Omero Facility:[facility] Start: 09-03-2024 End: 09-03-2024 ambulatory Ximena Sylvester TRANSLATIONAL SPECIALIST-C Work Phone: [facility] Work Phone: Start: 09-03-2024 End: 09-03-2024 Patient encounter procedure Tere Mckenzie TRANSLATIONAL SPECIALIST-C -Laboratory, [facility] Start: 09-02-2024 End: 09-02-2024 Patient encounter procedure Tere Mckenzie TRANSLATIONAL SPECIALIST-C -[facility] Work Phone: Start: 09-02-2024 End: 09-03-2024 ambulatory [facility] Start: 08-09-2024 Non-patient / Non-visit Philip Drummond DO -[facility] Start: 08-09-2024 End: 08-09-2024 Admission to same day surgery center Philip Drummond DO -Endoscopy Work Phone: Start: 08-09-2024 End: 08-09-[address] Williams Starr DO Work Phone: [facility] Work Phone: Start: 08-09-2024 End: 08-09-2024 ambulatory [facility] Facility:[facility] Start: 07-16-2024 End: 07-22-2024 Refill Gladys aBird MD Work Phone: [facility]monary Medicine Comment on above: Refill Request Start: 07-11-2024 End: 07-12-2024 Refill Gladys Baird MD Work Phone: [facility] Comment on above: Refill Request Start: 07-04-2024 End: 07-04-2024 Telephone encounter Mae Raya MD Work Phone: OB/Gynecology Comment on above: Results Start: 07-02-2024 End: 07-02-2024 ambulatory MAE RAYA Facility:[facility] Start: 07-02-2024 End: 07-02-2024 Office outpatient visit 15 minutes Mae Raya MD Work Phone: OB/Gynecology Comment on above: Vaginal itching (Margie micaela Dx); Cystocele, midline Start: 06-13-2024 End: 06-13-2024 Patient encounter procedure Philip Drummond DO -[facility] Work Phone: Start: 06-13-2024 End: 06-13-2024 ambulatory [facility] Start: 06-11-2024 End: 06-11-2024 Patient encounter procedure Ximena Sylvester TRANSLATIONAL SPECIALIST-C -Outpatient Bone Densitometry Work Phone: Start: 06-11-2024 End: 06-11-2024 ambulatory [facility] Start: 05-27-2024 End: 05-27-2024 Patient encounter procedure Tere Mckenzie TRANSLATIONAL SPECIALIST-C -Laboratory Work Phone: Start: 05-27-2024 End: 05-27-2024 ambulatory [facility] Start: 05-14-2024 End: 05-14-[address] Brendon Orozco MD -[facility] Work Phone: Start: 05-14-2024 End: 05-14-2024 ambulatory [facility] Start: 04-23-2024 End: 04-23-2024 Patient encounter procedure Marely CARDENAS -[facility] Work Phone: Start: 04-23-2024 End: 04-23-2024 ambulatory [facility] Facility:[facility] Start: 04-18-2024 End: 04-18-2024 ambulatory [facility] Start: 03-19-2024 End: 03-19-2024 ambulatory [facility] Start: 03-06-2024 End: 03-06-2024 ambulatory [facility] Start: 03-05-2024 End: 03-05-2024 ambulatory [facility] Start: 01-05-2024 End: 01-05-2024 ambulatory [facility] Start: 09-26-2023 End: 09-26-2023 Patient encounter procedure Agustina Hirsch MD Work Phone: OB/Gynecology Comment on above: Vulvar dermatitis (P rimary Dx); Cystocele, midline Start: 09-26-2023 End: 09-26-2023 ambulatory TARAS GREEN Facility:[facility] Start: 08-09-2023 End: 08-09-[address] Taras Green Work Phone: [facility] Work Phone: Start: 08-09-2023 End: 08-09-[address] Taras Green Work Phone: [facility]-Laboratory, Specimen Work Phone: Start: 08-04-2023 End: 08-04-2023 Non-patient / Non-visit Dr. Taras Green Work Phone: [facility] Work Phone: Start: 08-04-2023 End: 08-04-[address] Taras Green Work Phone: [facility] Work Phone: Start: 08-04-2023 End: 08-04-[address] [facility] Start: 07-10-2023 Refill Gladys Baird MD Work Phone: Pulmonary Medicine Comment on above: Refill Request Start: 07-03-2023 Non-patient / Non-visit Dr. Taras Green Work Phone: [facility] Start: 07-03-2023 End: 07-03-[address] Taras Green Work Phone: [facility] Work Phone: Start: 07-03-2023 End: 07-03-[address] [facility] Start: 05-24-2023 Non-patient / Non-visit Dr. Taras Green Work Phone: [facility] Start: 05-24-2023 Non-patient / Non-visit Dr. Taras Green Work Phone: [facility] Start: 05-24-2023 End: 05-24-[address] Taras Green Work Phone: [facility] Work Phone: Start: 05-24-2023 End: 05-24-[address] [facility] Start: 05-22-2023 Non-patient / Non-visit Dr. Taras Green Work Phone: [facility] Start: 05-22-2023 End: 05-22-[address] [facility] Start: 04-17-2023 Telephone encounter May Alcazar os BRAKE SHOE REBUILDER.DESIGN PROJECT MANAGER Work Phone: Pulmonary Medicine Start: 04-14-2023 Telephone encounter May Alcazar os BRAKE SHOE REBUILDER.DESIGN PROJECT MANAGER Work Phone: Pulmonary Medicine Start: 04-13-2023 End: 04-13-2023 Subsequent hospital visit by physician [facility] ([facility]-Stat) Work Phone: Cat Scan Comment on above: Former cigarette smo ker [Z87.891] Start: 04-12-2023 End: 04-12-[address] Taras Green Work Phone: [facility] Work Phone: Start: 03-30-2023 End: 03-30-[address] Taras Green Work Phone: [facility] Work Phone: Start: 03-21-2023 End: 03-21-[address] Taras Green Work Phone: [facility] Work Phone: Start: 03-21-2023 End: 03-21-[address] Taras Green Work Phone: [facility]-Ultrasound, [facility] Work Phone: Start: 03-16-2023 End: 03-16-[address] Taras Green Work Phone: [facility] Work Phone: Start: 03-16-2023 End: 03-16-[address] Taras Green Work Phone: [facility]-Cat Scan, [facility] Work Phone: Start: 03-14-2023 End: 03-14-2023 Patient encounter procedure Kanika Del Cid BRAKE SHOE REBUILDER.DESIGN PROJECT MANAGER Work Phone: Pulmonary Medicine Comment on above: Encounter for screen ing for lung cancer (Primary Dx); Former cigarette smoker Start: 03-09-2023 End: 03-09-2023 Patient encounter procedure Jonathon Carpio MD Work Phone: Orthopaedics Comment on above: Bilateral carpal savana ricardo syndrome (Primary Dx) Start: 03-09-2023 End: 03-09-2023 Subsequent hospital visit by physician [facility] Work Phone: Radiology Comment on above: Bilateral hand pain [M79.641, M79.642] Start: 02-21-2023 End: 02-21-2023 ambulatory Pulm Lab [facility] Work Phone: [facility] Comment on above: Spirometry Start: 02-21-2023 End: 02-21-2023 Patient encounter procedure Pulm Lab [facility] Work Phone: [facility] Comment on above: COPD, mild (HCC) (Pr imary Dx); Former cigarette smoker Start: 02-01-2023 Telephone encounter Jonathon baer MD Work Phone: Orthopaedics Comment on above: Chart prep Start: 01-05-2023 End: 01-05-[address] Taras Green Work Phone: [facility] Work Phone: Start: 01-05-2023 End: 01-05-[address] Taras Green Work Phone: [facility]-Laboratory, Phy Office 3rd Flr Start: 01-04-2023 End: 01-04-2023 Non-patient / Non-visit Dr. Taras Green Work Phone: [facility] Work Phone: Start: 01-04-2023 End: 01-04-[address] Taras Green Work Phone: [facility] Work Phone: Start: 01-04-2023 End: 01-04-[address] Taras Green Work Phone: [facility] Services/Neurology Work Phone: Start: 12-27-2022 End: 12-27-[address] Taras Green Work Phone: [facility] Work Phone: Start: 12-27-2022 End: 12-27-[address] Taras Green Work Phone: [facility]-Radiology, [facility] Work Phone: Start: 12-27-2022 End: 12-27-[address] Taras Green Work Phone: [facility] Work Phone: Start: 12-20-2022 End: 12-20-[address] Taras Green Work Phone: [facility] Work Phone: Start: 12-20-2022 End: 12-20-[address] Taras Green Work Phone: [facility], [facility] Office [address] [place] [address] Start: 11-29-2022 End: 11-29-[address] Taras Green Work Phone: [facility] Work Phone: Start: 11-15-2022 End: 11-15-[address] Taras Green Work Phone: [facility] Work Phone: Start: 11-15-2022 End: 11-15-[address] [facility] Start: 11-09-2022 End: 11-09-[address] Taras Green Work Phone: [facility]-Nuclear Medicine, [facility] Start: 11-08-2022 End: 11-08-[address] [facility] Start: 10-13-2022 End: 10-13-[address] Taras Green Work Phone: [facility] Start: 10-11-2022 End: 10-11-[address] Taras Green Work Phone: [facility] Start: 10-04-2022 End: 10-04-[address] Taras Green Work Phone: [facility] Work Phone: Start: 10-04-2022 End: 10-04-[address] Taras Green Work Phone: [facility]Pulmonary Services/Neurology Start: 08-04-2022 End: 08-04-[address] Taras Green Work Phone: [facility] Work Phone: Start: 08-04-2022 End: 08-04-[address] Tar[facility] Start: 07-16-2022 End: 07-16-[address] Taras Green Work Phone: [facility] Work Phone: Start: 07-16-2022 End: 07-16-[address] Tar[facility] Start: 07-15-2022 End: 07-15-[address] Taras Green Work Phone: [facility] Start: 07-12-2022 Non-patient / Non-visit Dr. Taras Green Work Phone: [facility] Start: 07-12-2022 End: 07-12-2022 Admission to same day surgery center Dr. Taras Green Work Phone: [facility] Start: 07-12-2022 End: 07-12-[address] Taras Green Work Phone: [facility] Work Phone: Start: 04-21-2022 End: 04-21-[address] Taras Green Work Phone: [facility] Work Phone: Start: 04-21-2022 End: 04-21-[address] Taras Green Work Phone: [facility] Start: 04-11-2022 Non-patient / Non-visit Dr. Taras Green Work Phone: [facility] Start: 04-11-2022 End: 04-11-[address] Taras Green Work Phone: [facility] Work Phone: Start: 04-11-2022 End: 04-11-[address] Taras Green Work Phone: [facility] Services/Neurology Start: 03-17-2022 End: 03-17-[address] Taras Green Work Phone: [facility] Work Phone: Start: 03-17-2022 End: 03-17-[address] Taras Green Work Phone: [facility], Phy Office 3rd Flr Start: 01-07-2022 End: 01-07-[address] Taras Green Work Phone: [facility] Start: 12-23-2021 End: 12-23-[address] Taras Green Work Phone: [facility] Start: 12-10-2021 End: 12-10-[address] Taras Green Work Phone: [facility] Start: 12-09-2021 End: 12-09-[address] Taras Green Work Phone: [facility] Start: 11-11-2021 End: 11-11-[address] Taras Green [facility] Start: 11-06-2021 End: 11-06-2021 Emergency department patient visit Dr. Trinity Baird Work Phone: [facility] Department Start: 10-28-[address] Trinity [facility]aird [facility] Start: 10-25-2021 End: 10-25-[address] Trinity Baird Work Phone: [facility] Office 3rd Flr Start: 10-21-[address] Trinity Baird [facility] Start: 10-18-2021 End: 10-18-[address] Trinity Baird Work Phone: [facility] Start: 10-18-2021 End: 10-18-[address] Trinity Baird Work Phone: [facility] Start: 10-15-2021 Refill No Pcp [facility] Comment on above: Refill Request Start: 09-22-2021 End: 09-22-[address] Trinity Baird Work Phone: [facility] Start: 09-10-2021 End: 09-10-[address] Trinity Baird Work Phone: [facility] Start: 09-08-2021 End: 09-08-[address] Trinity Baird Work Phone: [facility] Start: 08-27-[address] Trinity Baird Work Phone: [facility] Start: 08-27-2021 End: 08-27-[address] Trinity Baird Work Phone: [facility] Start: 08-23-2021 End: 08-23-[address] Trinity Baird Work Phone: [facility], [facility] Start: 08-19-2021 End: 08-19-[address] Trinity Baird Work Phone: [facility] Start: 08-10-2021 Non-patient / Non-visit Dr. Trinity Baird Work Phone: [facility] Start: 08-10-2021 End: 08-10-[address] Trinity Baird Work Phone: [facility]Cardiovascular Services Start: 08-10-2021 Non-patient / Non-visit Dr. Trinity Baird Work Phone: [facility] Start: 07-22-2021 End: 07-22-[address] Trinity Baird Work Phone: [facility], Phy Office 3rd Flr Start: 07-15-2021 End: 07-15-2021 Emergency department patient visit Dr. Trinity Baird Work Phone: [facility] Start: 07-15-2021 End: 07-15-[address] Trinity Baird Work Phone: [facility] Start: 05-01-2019 End: 05-01-2019 Subsequent hospital visit by physician Susan Teague Work Phone: [facility] Radiology Comment on above: Chronic fatigue; Diabetes mellitus type 2 in obese (HCC); Chronic bilateral low back pain without sciatica Start: 04-26-2019 End: 04-26-2019 Emergency department patient visit Dc Newman Work Phone: [facility] ED Comment on above: Dyspnea, unspecified type (Primary Dx) Start: 04-04-2019 End: 04-04-2019 Emergency department patient visit Leonides Tyler Work Phone: [facility] ED Comment on above: Acute frontal sinusi tis, recurrence not specified (Primary Dx) Start: 02-08-2019 End: 02-08-2019 ambulatory UNKNOWN PROVIDER [facility] Procedures Date Procedure Procedure Detail Performing Clinician Start: 12-31-2024 Plain x-ray of hand Evi Sylvester TRANSLATIONAL SPECIALIST-C Work Phone: Start: 12-31-2024 X-ray of chest, PA a nd lateral views Ximena Sylvester TRANSLATIONAL SPECIALIST-C Work Phone: Start: 12-31-2024 Estimated creatinine clearance Ximena Sylvester TRANSLATIONAL SPECIALIST-C Work Phone: Start: 09-03-2024 Urine microalbumin/creatinine ratio measurement Ximena Sylvester TRANSLATIONAL SPECIALIST-C Work Phone: Comment on above: Previous reported [...] 08-23-2021 Diagnostic radiograp hy of finger Dr. Trinity Baird Work Phone: Start: 08-19-2021 X-ray of [...] 25 hydroxy includes fractions if performed Susan Tegaue Work Phone: Start: 05-01-2019 Assay of thyroid stimulating hormone tsh Susan Teague Work Phone: Start: 05-01-2019 Blood count complete auto&auto difrntl wbc Susan Teague Work Phone: Start: 05-01-2019 Comprehensive metabo lic panel Susan Teague Work Phone: Start: 05-01-2019 Cyanocobalamin vitam in b-12 Susan Teague Work Phone: Start: 04-26-2019 Radiologic exam ches t 2 views Dc Rushing [employer] Work Phone: Start: 04-26-2019 Assay of troponin quantitative Dc J [employer] Work Phone: Start: 04-26-2019 Basic metabolic pane l calcium total Dc [employer] Work Phone: Start: 04-26-2019 Blood count complete auto&auto difrntl wbc Dc Rushing [employer] Work Phone: Start: 06-10-2018 End: 08-02-2018 History of coronary artery bypass grafting S/P CABG (coronary artery bypass graft) Agustina Hirsch MD Work Phone: Start: 05-30-2018 History of coronary artery bypass grafting H/O coronary artery bypass surgery Marely CARDENAS Comment on above: CABG x 3 THORNE-LAD, S VG-OM1, SVG-Distal RCA 05/30/2018 Start: 05-28-2018 Antibody screen Comment on above: Performed By: #### C BCD1 #### [place] [id number] Start: 09-25-2012 Colonoscopy No Pcp Start: 07-31-2011 Mammography No Pcp Urine culture Dr. Taras Green Work Phone: Urine culture Dr. Taras Green Work Phone: Plan of Treatment Date Care Activity Detail Author Start: 12-31-2024 [facility] Start: 12-31-2024 [facility] Start: 12-31-2024 MG Breast - bilateral Screening [facility] Start: 12-31-2024 Screening mammography SCRN MAMM (CAD)W/DAVE BILAT [facility] Start: 09-25-2024 BP Controlled (<130/80) BP Controlled (<130/80) [facility] Start: 08-09-2024 Esophageal motility study w/interp&rpt ESOPHAGUS MOTILITY STUDY [facility] Start: 2024 RSV Vaccine (1 - 1-dose 75+ series) RSV Vaccine (1 - 1-dose 75+ series) [facility] Start: 06-05-2024 Advance Directive Discussion Advance Directive Discussion [facility] Start: 04-13-2024 Influenza vaccination Lung Cancer Screening [facility] Start: 04-13-2024 Screening for malignant neoplasm of lung Lung Cancer Screening [facility] Start: 03-14-2024 BP Controlled (<130/80) BP Controlled (<130/80) [facility] Start: 02-04-2024 Covid-19 Vaccine () Covid-19 Vaccine () [facility] Start: 02-04-2024 Influenza vaccination [facility] Start: 10-25-2023 End: 10-25-2023 Patient encounter procedure 10/25/2023 3:00 PM EDT Office Visit Pulmonary Medicine [address] [place], [place] [address] Mae Solorio [facility] [address] [place], [place] [id number] COPD follow up Pulmonary Medicine Comment on above: COPD follow up Start: 06-05-2023 Advance Directive Discussion Advance Directive Discussion [facility] Start: 06-05-2023 Behavioral Health Screening Behavioral Health Screening [facility] Start: 06-05-2023 Depression Assessment Depression Assessment [facility] Start: 02-03-2023 Covid-19 Vaccine () Covid-19 Vaccine () [facility] Start: 02-03-2023 Influenza vaccination [facility] Start: 01-27-2023 Covid-19 Vaccine (6 - Additional dose for [place] series) Covid-19 Vaccine (6 - Additional dose for [place] series) [facility] Start: 11-15-2022 Immunoglobulin measurement [facility] Start: 11-15-2022 Serum immunofixation [facility] Start: 11-15-2022 [facility] Start: 09-25-2022 Colonoscopy COLONOSCOPY [facility] Start: 09-25-2022 COLORECTAL CANCER SCREENING COLORECTAL CANCER SCREENING [facility] Start: 09-25-2022 Screening for malignant neoplasm of colon [facility] Start: 07-12-2022 Colonoscopy w/biopsy single/multiple COLONOSCOPY AND BIOPSY [facility] Start: 07-12-2022 Colsc flx w/rmvl of tumor polyp lesion snare tq COLONOSCOPY W/LESION REMOVAL [facility] Start: 07-12-2022 Egd insert guide wire dilator passage esophagus EGD GUIDE WIRE INSERTION [facility] Start: 07-12-2022 Egd transoral biopsy single/multiple EGD BIOPSY SINGLE/MULTIPLE [facility] Start: 07-12-2022 Patient discharge [facility] Start: 06-29-2022 Hepatitis B surface antibody level LDL CHOLESTEROL [facility] Start: 06-05-2022 ADVANCE DIRECTIVE DISCUSSION ADVANCE DIRECTIVE DISCUSSION [facility] Start: 06-05-2022 DEPRESSION ASSESSMENT DEPRESSION ASSESSMENT [facility] Start: 03-10-2022 ANNUAL PCP TEAM CHRONIC DISEASE VISIT ANNUAL PCP TEAM CHRONIC DISEASE VISIT [facility] Start: 02-03-2022 Influenza vaccination INFLUENZA (Season Ended) [facility] Start: 10-21-2021 Hepatitis B screening URINE ALBUMIN:CREATININE RATIO [facility] Start: 09-27-2021 Hemoglobin A1c measurement HbA1C [facility] Start: 09-27-2021 Hemoglobin A1c/Hemoglobin.total in Blood HBA1C [facility] Start: 07-15-2021 Emergency department visit limited/minor prob EMERGENCY DEPT VISIT [facility] Work Phone: Start: 06-05-2021 ADVANCE DIRECTIVE DISCUSSION ADVANCE DIRECTIVE DISCUSSION [facility] Start: 04-14-2021 COVID-19 VACCINE (2 - Booster for [place] series) COVID-19 VACCINE (2 - Booster for [place] series) [facility] Start: 03-16-2021 Glaucoma screening Dilated Retinal Exam [facility] Start: 03-16-2021 Hepatitis C antibody, confirmatory test DILATED RETINAL EXAM [facility] Start: 11-23-2020 Breast cancer screen Breast cancer screen [place], [place] Start: 04-26-2020 Creatinine monitoring Creatinine monitoring [place] Start: 04-26-2020 Potassium monitoring Potassium monitoring [place] Start: 01-26-2020 Influenza vaccination LUNG CANCER SCREENING [facility] Start: 11-24-2019 Screening for malignant neoplasm of breast Mammogram Screening [facility] Start: 10-16-2019 Creatinine monitoring Creatinine monitoring [place] Start: 10-16-2019 Lipid screen Lipid screen [place] Start: 10-16-2019 Potassium monitoring Potassium monitoring [place] Start: 10-02-2019 [object Object] Diabetic foot exam [place] Start: 05-01-2019 End: 05-01-2019 Office Visit 05/01/2019 Office Visit Family Medicine Susan Teague, DO [address] [place] [address] [phone] [facility] Start: 04-16-2019 End: 04-16-2019 Office Visit 04/16/2019 Office Visit Family Medicine Susan Teague, DO [address] [place], [place] [address] [facility] Start: 03-30-2019 A1C test (Diabetic or Prediabetic) A1C test (Diabetic or Prediabetic) [place] Start: 03-30-2019 Diabetic microalbuminuria test Diabetic microalbuminuria test [place] Start: 02-03-2019 Influenza vaccination Flu vaccine (#1) [place] Start: 11-21-2018 Annual Wellness Visit (AWV) Annual Wellness Visit (AWV) [place] Start: 04-21-2017 Diabetic retinal exam Diabetic retinal exam [place] Start: 07-31-2012 Mammography [facility] Start: 07-31-2012 Screening for malignant neoplasm of breast Mammogram Screening [facility] Start: 2009 Hepatitis B Vaccine (1 of 3 - Risk 3-dose series) Hepatitis B Vaccine (1 of 3 - Risk 3-dose series) [facility] Start: 2009 RSV Vaccine (1 - 1-dose 60+ series) RSV Vaccine (1 - 1-dose 60+ series) [facility] Start: 1999 Colon cancer screen colonoscopy Colon cancer screen colonoscopy [place], [place] Start: 1999 Shingles Vaccine (1 of 2) Shingles Vaccine (1 of 2) [place], [place] Start: 1999 SHINGRIX VACCINE (1 of 2) SHINGRIX VACCINE (1 of 2) [facility] Start: 1994 COLOGUARD (FIT-DNA) COLOGUARD (FIT-DNA) [facility] Start: [address] COLONOGRAPHY [facility] Start: 1994 FECAL OCCULT BLOOD FECAL OCCULT BLOOD [facility] Start: 1994 Screening for malignant neoplasm of colon [facility] Start: 1994 SIGMOIDOSCOPY SIGMOIDOSCOPY [facility] Start: 1979 Zoledronic acid therapy Alpha-1 Antitrypsin Deficiency Screening [facility] Start: 1968 DTaP/Tdap/Td vaccine (1 - Tdap) DTaP/Tdap/Td vaccine (1 - Tdap) [place] Start: 1968 Urine microalbumin profile [facility] Start: 1967 Anxiety Screening Anxiety Screening [facility] Start: 1967 BP CONTROLLED (<130/80) BP CONTROLLED (<130/80) [facility] Start: 1967 Depression Screening Depression Screening [facility] Start: 1967 HEPATITIS C SCREENING HEPATITIS C SCREENING [facility] Start: 1967 Hepatitis C screening Hepatitis C Screening [facility] Start: 1961 Adult depression screening assessment DEPRESSION SCREENING [facility] Start: 1960 DTaP/Tdap/Td vaccine (1 - Tdap) DTaP/Tdap/Td vaccine (1 - Tdap) [place] Start: 1959 3 comp foot exam completed DIABETIC FOOT EXAM [facility] Start: 1959 Diabetic foot examination Diabetic Foot Exam [facility] Start: 1949 Hepatitis C screen Hepatitis C screen [place] Albumin [Moles/volum e] in Serum or [facility] Albumin/Globulin ratio [facility] [place] [place] BACTERIAL VAGINOSIS NAAT BACTERI AL VAGINOSIS NAAT Lab Routine Vaginal itching 07/02/2024 4:10 PM EST [facility] Work Phone: BAYRON/TRICHOMONAS NAAT BAYRON /TRICHOMONAS NAAT Lab Routine Vaginal itching 07/02/2024 4:10 PM EST [facility] Clostridioides diffi cile DNA [Presence] in Unspecified specimen by DARLIN with probe detection [facility] End: 04-12-2024 CT LUNG SCREEN WO IVCON CT LUNG SCREEN WO IVCON Radiology Routine Former cigarette smoker 1 Occurrences starting 03/14/2023 until 04/12/2024 [facility] Work Phone: Comment on above: 1 Occurrences starting 03/14/2023 until 04/12/2024 CT LUNG SCREEN WO IVCON CT LUNG SCREEN WO IVCON Radiology Routine Former cigarette smoker 04/13/2023 2:08 PM EST [facility] Work Phone: End: 05-16-2024 CT LUNG SCREEN WO IVCON CT LUNG SCREEN WO IVCON Radiology Routine Former smoker 1 Occurrences starting 04/17/2023 until 05/16/2024 [facility] Work Phone: Comment on above: 1 Occurrences starting 04/17/2023 until 05/16/2024 CT Pelvis W contrast IV [facility] EKG 12 Lead - Chest Pain EKG 12 Lead - Chest Pain ECG STAT 04/26/2019 10:51 AM EST [facility] [place] Elastase, pancreatic (el-1), fecal; quantitative [facility] Electrophoresis: [id number] [facility] Electrophoresis: doreen ma globulin [facility] End: 03-09-2024 EMG(NEURO/NI) EMG(NEURO/NI) EMG Routine Bilateral carpal tunnel syndrome 1 Occurrences starting 03/09/2023 until 03/09/2024 [facility] Work Phone: Comment on above: 1 Occurrences starting 03/09/2023 until 03/09/2024 Fat [Presence] in Stool [facility] Globulin measurement [facility] IgA [Mass/volume] in Serum or Plasma [facility] IgE [Units/volume] i n Serum or Plasma [facility] IgG [Mass/volume] in Serum or Plasma [facility] IgM [Mass/volume] in Serum or Plasma [facility] Lactoferrin [Presenc e] in Stool by Immunoassay [facility] Neutrophil cytoplasm ic Ab.classic [Units/volume] in Serum [facility] P-ANCA measurement [facility] Patient Education [facility] Work Phone: Patient referral [facility] Work Phone: Protein electrophore sis panel - Serum or Plasma [facility] Protein measurement [facility] Radionuclide gastric emptying study [facility] Serum protein electrophoresis [facility] Troponin T.cardiac [Mass/volume] in Serum or Plasma by High sensitivity method [facility] End: 05-01-2019 XR LUMBAR SPINE (MIN 4 VIEWS) XR LUMBAR SPINE (MIN 4 VIEWS) Imaging Routine Once for 1 Occurrences starting 05/01/2019 until 05/01[facility]: Once for 1 Occurrences starting 05/01/20 19 until 05/01/2019 XR LUMBAR SPINE (MIN 4 VIEWS) XR LUMBAR SPINE (MIN 4 VIEWS) Imaging Routine 05/01/2019 4:50 PM EST [facility] End: 05-01-2019 XR Lumbosacral Spine 4 VW XR Lumbosacral Spine 4 VW Imaging Routine Chronic bilateral low back pain without sciatica 1 Occurrences starting 05/01/2019 until 05/01/2019 [facility] Comment on above: 1 Occurrences starting 05/01/2019 until 05/01/2019 [facility] Immunizations Immunization Date Immunization Notes Care Provider Bess clark 02-17-2021 COVID-19 vaccine ([place]) No Pcp [facility] 03-30-2020 influenza virus vacc ine, unspecified formulation [facility] Work Phone: [facility] 04-14-2016 pneumococcal polysaccharide vaccine, 23 valent [facility] 09-03-2014 pneumococcal conjuga te vaccine, 13 valent [facility] Payers Date Payer Category Payer Medicare (Managed Care) [employer] H[employer] [id number] 2024 Medicaid [id number] 2024 Self-pay [id number] 2023 Medicare [id number] 2023 Medicare [id number] 2023 Unknown [id number] 2023 Medicare [id number] 2021 Unknown [id number] 2021 Medicaid [facility] MED[facility] [id number] 2021-Present [phone] [address] [place] [address] Medicaid [id number] 2021 Medicare [id number] 2018 Medicare HUMANA MEDICARE HUMANA GOLD PLUS HMO xxxxxxxxx 2018-Present [address] [address] [place] [address] xxxxxxxxx [id number] 2013 Medicare [id number] Medicare [id number] Unknown [id number] Unknown [id number] Unknown [id number] Unknown [id number] 2.16.840.1.851715.3.579.2. 462 Unknown [id number] 2.16.840.1.704859.3.579.2. 462 Unknown [id number] 2.16.840.1.065871.3.579.2. 462 Unknown [id number] 2.16.840.1.565710.3.579.2. 462 Unknown [id number] 2.16.840.1.239933.3.579.2. 462 Unknown [id number] 2.16.840.1.670655.3.579.2. 462 Unknown [id number] 2.16.840.1.789965.3.579.2. 462 Unknown [id number] 2.16.840.1.486968.3.579.2. 462 Unknown [id number] 2.16.840.1.642576.3.579.2. 462 Unknown [id number] 2.16.840.1.350921.3.579.2. 462 Unknown [id number] 2.16.840.1.302493.3.579.2. 462 Unknown [id number] 2.16.840.1.433475.3.579.2. 462 Unknown [id number] 2.16.840.1.053630.3.579.2. 462 Unknown [id number] 2.16.840.1.276621.3.579.2. 462 Unknown [id number] 2.16840.1.637115.3.579.2. 462 Unknown [id number] 2.16.840.1.774727.3.579.2. 462 Unknown [id number] 2.16.840.1.914892.3.579.2. 462 Unknown [id number] 2.840.1.190508.3.579.2. 462 Social History Date Type Detail Facility Start: 05-01-2019 End: 12-31-2024 Tobacco smoking status NHIS Former smoker [facility] Start: 09-04-1974 End: 12-27-2014 History of tobacco use Current smoker [place] Start: 05-01-2019 End: 07-02-2024 Alcohol intake Current non-drinker of alcohol (finding) [place] Start: 09-22-2016 Tobacco Comment quit 2 years ago [place], [place] Start: 1950 Sex Assigned At Not on file [place], [place] Start: 04-04-2019 End: 02-21-2023 Alcohol intake No [facility] Start: 09-04-1974 End: 09-04-2014 History of tobacco use Cigarette Smoker [facility] Start: 10-14-2014 End: 02-21-2023 Cigarettes smoked current (pack per day) - Reported 1 [facility] Start: 10-14-2014 End: 07-02-2024 Tobacco use and exposure Smokeless tobacco non-user [facility] Start: 03-07-2013 End: 02-21-2023 Tobacco Comment Father smoked in childhood home. [facility] Start: 10-18-2021 End: 04-12-2023 Tobacco smoking status MAIS Unknown if ever smoked [facility] Start: 06-24-2019 None [facility] Start: 06-24-2019 Alone [facility] Start: 07-24-2019 Non-smoker [facility] Start: 1950 Sex Assigned At Female W [facility] PHQ2 Score 0 [facility] Start: 08-21-2024 End: 09-09-2024 Sex Female (finding) [facility] NEGATED: Highlighted row [facility] Medical Equipment Procedure Code Equipment Code Equipment Origin al Text Equipment Identifier Dates [id number] Start: 08-03-2017 End: 10-15-2021 Comment on above: [...] route 4 times daily TID, DX: E11.9 [id number] Start: 04-26-2019 1 each by Does n ot apply route daily [id number] Start: 04-10-2017 1 each by In Vit ro route 4 times daily TID, DX: E11.9 [id number] Start: 10-16-2018 End: 04-26-2019 Test blood sugar (s) 4 times daily. Dx: Type 2 DM - Uncontrolled E11.65 Insulin: Yes.Send to pt whatever meter and supplies are covered. [id number] Start: 07-28-2021 Use one needle p er dose. 4 per day. [id number] Start: 10-16-2021 Test blood sugar (s) 4 times daily. Dx: Type 2 DM - Uncontrolled E11.65 Insulin: Yes Send to pt what ever meter and supplies are covered. [id number] Start: 07-28-2021 Goals Date Patient Goal Desired Activity /State Personal health goal Functional Status Date Assessment Result Facility 08-13-2018 Are you deaf, or do you have serious difficulty hearing No 08/13/2018 4:40 PM EDT George Vinson RN [facility] 08-13-2018 Are you blind, or do you have serious difficulty seeing, even when wearing glasses No 08/13/2018 4:40 PM EDT George Vinson, FADI No [facility] 08-13-2018 Do you have serious difficulty walking or climbing stairs No 08/13/2018 4:40 PM EDT George Vinson, FADI No [facility] 08-13-2018 Do you have difficul ty dressing or bathing No 08/13/2018 4:40 PM EDT George Vinson, FADI No [facility] 08-13-2018 Because of a physica l, mental, or emotional condition, do you have difficulty doing errands alone such as visiting a physician's office or shopping Yes 08/13/2018 4:40 PM EDT George Vinson RN Yes [facility] Mental Status Date Assessment Result Facility 08-09-2024 Cognitive function Awake;Alert;A ppropriate;Fo llows Commands [facility] Work Phone: 07-12-2022 Cognitive function Touch/Shaking [facility] Work Phone: 07-12-2022 Cognitive function Patient Orien tation Person;Place;Time [facility] Work Phone: 07-15-2021 Cognitive function Awake;Alert;A ppropriate;Fo llows Commands [facility] Work Phone: 08-13-2018 Because of a physica l, mental, or emotional condition, do you have serious difficulty concentrating, remembering, or making decisions Yes 08/13/2018 4:40 PM EDT George Vinson RN Yes [facility] Clinical Notes 08-15-2018 to 12-31-2024 Note Date & Type Note Facility 12-31-2024 Radiology Diagnostic study note [facility] Imaging Services [address] [place] [address] [id number] Hand Min 3 Views MR#: [id number] Acct: [id number] Name: LAYLA HIGUERA Rep #: [id number] : 1950 F 74 From: Johnathan Handy MD PCP: GABY Jewell Status: REG ER Study:Hand Min 3 Views Date of Exam: Exam# [id number] Ordering Dr: Jose Davis DO PROCEDURE: LEFT [...] GABY Sylvester; Dr. Marleny Davis DO ~ Business Proposal Rep: Signed [facility] 12-31-2024 Radiology Diagnostic study note [facility] Imaging Services [address] [place] [address] Chest PA and Lateral MR#: [id number] Acct: [id number] Name: LAYLA HIGUERA Rep #: [id number] : 1950 F 74 From: Johnathan Handy MD PCP: GABY Jewell Status: REG ER Study:Chest PA and Lateral Date of Exam: 12/31/24 Exam# [id number] Ordering Dr: Jose Davis DO PROCEDURE: CHEST [...] GABY Sylvester; Dr. Marleny Davis DO ~ Business Proposal Rep: Signed [facility] 09-02-2024 Evaluation note Diagnosis Onset Date Resolution Osteoporosis acute September 02, 2024 1:03pm Chronic fatigue chronic August 1:03pm Diabetes chronic September 02 1:03pm Essential (primary) hypertension chronic September 02, 2024 1:03pm Hyperlipidemia chronic August 1:03pm Obesity chronic September 02 1:03pm Dysphagia acute October 03, 2024 2:49pm Constipation chronic October 03 2:49pm [facility] Work Phone: [phone] Evaluation note* Diagnosis Onset Date Resolution Status [...] May 30, 2018 resolved December 10 1:55pm [facility] Work Phone: 1(497) 791-670903-11-2025 History and physical note Author Philip Drummond [facility] Note Date/Time August 13, 2024 8:[address] [facility] Medical Records Department [address] [place] [address] History & Physical Exam 08/09/24 1400 MR#: [id number] Acct: [id number] Name: LAYLA HIGUERA Rep #:[id number] : 1950 74 From: Philip Drummond DO PCP: GABY Jewell Status:REG [facility] Location: EN HPI - General General Date of Admission: 08/09/24 Date of Service: 08/09/24 Chief Complaint: Esophageal dysphagia HPI Narrative LAYLA HIGUERA, is a 74 F who presents today for esophageal manometry due toworsening esophageal dysphagia and intermittent chest pain. [facility] Medical History Cardiac murmur Current use of snf anticoagulation Arterial vascular disease Bilateral buttock pain [...] accident) (09/2014) Atherosclerosis of coronary artery of [place] heart without angina pectoris History of non-ST elevation myocardial infarction (NSTEMI) (06/2018) Essential (primary) hypertension Overactive bladder Anxiety Tobacco abuse Diabetes Hyperlipidemia Home Medications ?Medication ?Instructions ?Recorded ?Last Taken ?Type aspirin 81 mg tablet,delayed 81 mg PO DAILY@0800 [facility] 06/14/18 2 Days Ago History release ~02/21/21 [...] CC: GABY Sylvester; Philip Drummond DO~ Signed [facility] Work Phone: 1(125) 383-709703-11-2025 History and physical note [facility] Medical Records Department [address] [place] [address] History & Physical Exam 08/09/24 1400 MR#: [id number] Acct: [id number] Name: LAYLA HIGUERA Rep #:[id number] : 1950 74 From: Philip Drummond DO PCP: GABY Jewell Status:REG [facility] Location: EN HPI - General General Date of Admission: 08/09/24 Date of Service: 08/09/24 Chief Complaint: Esophageal dysphagia HPI Narrative LAYLA HIGUERA, is a 74 F who presents today for esophageal manometry due toworsening esophageal dysphagia and intermittent chest pain. [facility] Medical History Cardiac murmur Current use of manager shell anticoagulation Arterial vascular disease Bilateral buttock pain [...] accident) (09/2014) Atherosclerosis of coronary artery of [place] heart without angina pectoris History of non-ST [...] CC: GABY Sylvester; Philip Drummond DO~ Signed [facility]03-07-2025 [facility] Medical Records Department [address] [place] [address] History Physical Exam 08/09/24 1400 MR#: [id number] Acct: [id number] Name: LAYLA HIGUERA Rep #: [id number] : 1950 74 From: Philip Drummond DO PCP: GABY Jewell Status:[facility] Location: EN HPI - General General Date of Admission: 08/09/24 Date of Service: 08/09/24 Chief Complaint: Esophageal dysphagia HPI Narrative LAYLA HIGUERA, is a 74 F who presents today for esophageal manometry due to worsening esophageal dysphagia and intermittent chest pain. [facility] Medical History Cardiac murmur Current use of manager shell anticoagulation Arterial vascular disease Bilateral buttock pain [...] accident) (09/2014) Atherosclerosis of coronary artery of [place] heart without angina pectoris History of non-ST [...] flatus, fecal incontinence, hea (more content not included)...[facility]02-07-2025 Telephone encounter Note* Telephone Encounter - Daniela Tatum LPN - 07/12/2024 11:38 AM EST Per [facility] note 07/02/24. Patient has discontinued Stiolto. Last seen by this office in February 2023. Asked pharmacy to have patient contact office and schedule follow up if she is needing this medication. Daniela Tatum LPN [facility]02-07-2025 Miscellaneous Notes* Telephone Encounter - Daniela Tatum LPN - 07/12/2024 11:38 AM EST Per Epic note 07/02/24. Patient has discontinued Stiolto. Last seen by this office in February 2023. Asked pharmacy to have patient contact office and schedule follow up if she is needing this medication. Daniela Tatum LPN [facility] Telephone encounter Note * Telephone Encounter - [...] work in the past. Wanda Reardon RN [facility]01-30-2025 Miscellaneous Notes* Telephone Encounter - Wanda Reardon [...] are negative for infection [facility] Telephone encounter Note * Telephone Encounter - Mae Raya MD - 07/04/2024 12:52 PM EST Pt previous have kenalog not clobetasol. Other than a skin protectant like A&D, there are no other creams for itching [facility]01-30-2025 Telephone encounter Note* Telephone Encounter - Mae [...] type of medication sent. Mae Diaz RN [facility]01-30-2025 Telephone encounter Note* Telephone Encounter - Wanda Reardon RN - 07/04/2024 8:43 AM EST Left message for patient to call office. Wanda Reardon RN [facility]01-30-2025 Telephone encounter Note* Telephone Encounter - Wanda Reardon RN - 07/04/2024 8:42 AM EST ----- Message from Mae Raya MD sent at 07/04/2024 8:38 AM EST ----- Please let patient know her vaginal cultures are negative for infection [facility]01-28-2025 NoteHNO ID: [id number] Author: MAE RAYA MD Service: ? Author Type: Physician Type: Progress Notes Filed: 07/02/2024 16:34 Note Text: 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 Layla Higuera is a [...] OB History No obstetric history on file. [place] History LMP: Postmenopausal Age at Menarche: Age at First : Age at Menopause: [place] History Comments: Sexual Activity: Not Asked; No partner data on record Contraception: No contraception data on record PAST MEDICAL HISTORY Diagnosis Date Aortic sclerosis Aspiration pneumonia (HCC) Following CVA. CAD (coronary artery disease) COPD (chronic obstructive pulmonary disease) ([facility]) 03/18/2013 Stage 0. Normal FEV1 03/2013. 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 Stroke ([facility]) SUMMARY 10/14/2014 Ms Layla Higuera is a [...] 201-250 Give 2 uni (more content not included)...[facility] 07-02-2024 History of Present illness Narrative* Mae Raya MD - 07/02/2024 3:28 PM EST 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 Layla Higuera is a [...] OB History No obstetric history on file. [place] History LMP: Postmenopausal Age at Menarche: Age at First : Age at Menopause: [place] History Comments: Sexual Activity: Not Asked; No partner data on record Contraception: No contraception data on record PAST MEDICAL HISTORY Diagnosis Date Aortic sclerosis Aspiration pneumonia (HCC) Following CVA. CAD (coronary artery disease) COPD (chronic obstructive pulmonary disease) ([facility]) 03/18/2013 Stage 0. Normal FEV1 03/2013. 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 Stroke (HCC) SUMMARY 10/14/2014 Ms Layla Higuera [...] discussed with the Patient or Patient's Authorized Manufacturing Teacher. As applicable, any other physician, advance practice provider, medical student, or other health professional student that will be observing or involved in the sensitive examination for educational or training purposes was discussed with the Patient or Authorized Manufacturing Teacher. The Patient or Authorized Manufacturing Teacher has agreed to proceed with the sensitive [...] ABDOMEN: Deferred PELVIC: normal Bartholin's glands, urethra, [place]'s glands, no cervical lesions, physiologic discharge present, [...] Future Mae Raya MD documented [facility] Evaluation note* Diagnosis Onset Date Resolution Status [...] August 1:03pm Obesity chronic September 02 1:03pm [facility] Work Phone: 1(795) 775-617711-19-2024 Evaluation note* Diagnosis Onset Date Resolution Status [...] 2024 2:47pm Dysphagia acute August 09 1:18pm [facility] Work Phone: 1(559) 628-492704-23-2024 NoteHNO ID: [id number] Author: AGUSTINA HIRSCH MD Service: ? Author Type: Physician Type: Progress Notes Filed: 09/26/2023 15:45 Note Text: 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 Layla Higuera is a 73 year old female who presents for problem visit. HPI: Patient presents with vulvar irritation for 1 year. She reports taking florajens. She changes a pull up about 3 times per day. She is not using any creams currently. Also she has been told that she has prolapse. 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 [place] History LMP: Postmenopausal Age at Menarche: Age at First : Age at Menopause: [place] History Comments: Sexual Activity: Not Asked; No partner data on record Contraception: No contraception data on record PAST MEDICAL HISTORY Diagnosis Date Aortic sclerosis Aspiration pneumonia (HCC) Following CVA. CAD (coronary artery disease) COPD (chronic obstructive pulmonary disease) ([facility]) 03/18/2013 Stage 0. Normal FEV1 03/2013. 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 Stroke ([facility]) SUMMARY 10/14/2014 Ms Layla Higuera is a [...] by mouth once luisito (more content not included)...[facility]04-23-2024 History of Present illness Narrative* Agustina Hirsch MD - 09/26/2023 2:48 PM EDT 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 Layla Higuera is a 73 year old female who presents for problem visit. HPI: Patient presents with vulvar irritation for 1 year. She reports taking florajens. She changes a pull up about 3 times per day. She is not using any creams currently. Also she has been told that she has prolapse. 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 [place] History LMP: Postmenopausal Age at Menarche: Age at First : Age at Menopause: [place] History Comments: Sexual Activity: Not Asked; No partner data on record Contraception: No contraception data on record PAST MEDICAL HISTORY Diagnosis Date Aortic sclerosis Aspiration pneumonia (HCC) Following CVA. CAD (coronary artery disease) COPD (chronic obstructive pulmonary disease) ([facility]) 03/18/2013 Stage 0. Normal FEV1 03/2013. 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 Stroke ([facility]) SUMMARY 10/14/2014 Ms Layla Higuera is a [...] Low Agustina Hirsch MD documented [facility] Miscellaneous Notes* Telephone Encounter - May Baird APRN.CNP - 04/17/2023 4:38 PM EST Called patient regarding recent low dose CT scan results and plan of care. Category 2- Pt to return to lung cancer screening in 1 year. All questions answered and the patient is comfortable with the plan. aMy Baird APRN.CNP documented in [facility]11-[facility]-2023 Miscellaneous Notes* Telephone Encounter - May Baird APRN.CNP - 04/14/2023 10:19 AM EST Called patient regarding recent low dose CT scan results and plan of care. Category 2- Pt to return to lung cancer screening in 1 year. No answer and unable to leave a message due to no voicemail being set up. May Baird APRN.CNP documented in [facility] encounterMary [facility]11-09-2023 History of Present illness Narrative* Shirley Quintana [...] 13, 2023 4:12 PM documented in this encounterMary [facility]10-10-2023 Instructions* Patient Instructions* Kanika Del Cid APRN.CNP [...] to endocrinology. Others Lung Cancer Screening hotline: [phone] Lung Cancer Screening [phone] Billing Questions: or [email or web address] Lung Cancer Screening Team: Inés Patel CNP; Lety Cervantes PA-C; Shirley Beltre CNP; Karly Kent CNP, Verena Villanueva PA-C, Linda Arriaga PA-C, Kanika Del Cid, DESIGN PROJECT MANAGER : [phone] documented in this encounterMary [facility]10-10-2023 History of Present illness Narrative* Kanika Del [...] 50% of waking hrs. Modified Medical Research [place] Dyspnea Scale (MMRC) On level ground I walk slower than people of the same age because of breathlessness, or have to stop for breath when walking at my own pace 2 PAST MEDICAL HISTORY Diagnosis Date Aortic sclerosis Aspiration pneumonia (HCC) Following CVA. CAD (coronary artery disease) COPD (chronic obstructive pulmonary disease) ([facility]) 03/18/2013 Stage 0. Normal FEV1 03/2013. 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 Race: White 6. Education: High School [...] DATE OF EXAM: Jan 25 2019 9:42PM [facility] 0539 - CT CHEST W IVCON / [...] evidence of acute abnormality. No thoracic adenopathy. 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 DLCO-ATS/ERS acceptability and repeatability standards for DLCO met. IMPRESSION: Spirometry shows no large airway obstruction.The FVL show small airways obstruction. The diffusing capacity is normal. Electronically Signed On 02-21-2023 16:56:25 EDT by Gladys Baird MD ID: [id number] Name: LAYLA HIGUERA Race: White Ht: 58.27 [...] 2.70 FEF50/FIF50 0.49 90-100 FIVC (L) 1.85 OAD38-05 (L/sec) 0.89 0.68 1.53 2.76 58 Time [...] Six year risk for lung cancer: 4.71% [email or web address] I have determined that the patient [...] 14, 2023 10:13 AM documented in [facility]23 History of Present illness Narrative* Jonathon Carpio MD - 03/09/2023 3:32 PM EDT Jonathon Carpio MD Department of Orthopaedics Orthopaedics [address] [facility] [address] Dept: [phone] Dept March 09, 2023 CHIEF COMPLAINT: New [...] IMAGING: IMPRESSION: Mild to moderate degenerative changes. Business Proposal Rep: EDUARDO Transcribe Date/Time: Mar 12 2023 10:36A [...] artery disease) COPD (chronic obstructive pulmonary disease) ([facility]) 03/18/2013 Stage 0. Normal FEV1 03/2013. Diabetes mellitus type II DVT (deep venous thrombosis) ([facility]) 09/2014 during hospitalization for CVA, bilateral legs and head Dysphagia due to recent stroke 09/2014 GERD (gastroesophageal reflux disease) Hyperlipidemia Hypertension Migraines NSTEMI (non-ST elevated myocardial infarction) (HCC) Obesity 03/07/2013 Osteopenia S/P CABG x 3 05/30/2018 [facility]. Stroke (HCC) SUMMARY 10/14/2014 Ms Layla Higuera [...] anxiety) Jonathon Carpio MD documented in this encounterMary [facility]10-[facility]-2023 History of Present illness Narrative* Radha Cabrera [...] 09, 2023 3:24 PM documented in this encounterMary [facility]09-19-2023 History of Present illness Narrative* Gladys Baird MD - 02/21/2023 3:15 PM EDT Images from the original note were not included. . [facility] [place] Note Patient name: Layla Higuera PCP: Taras [...] DATE OF EXAM: Jan 25 2019 9:42PM [facility] 0539 - CT CHEST W IVCON / [...] HISTORY Diagnosis Date Aortic sclerosis Aspiration pneumonia ([facility]) Following CVA. CAD (coronary artery disease) COPD (chronic obstructive pulmonary disease) ([facility]) 03/18/2013 Stage 0. Normal FEV1 03/2013. 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 documented in this encounterMary [facility]06-06-2023 NotePap Smear Specimen AdequacyJune 2022 3:02pmComment.Satisfactory for evaluation. No endocervical component is identified.[facility] A#[id number] VA [facility] on above:Satisfactory for evaluation. No endocervical component is identified.11-08-2022 NotePap Smear Specimen AdequacyJune 2022 3:02pmComment.Satisfactory for evaluation. No endocervical component is identified.[facility] A#[id number] HealthComsheridan community hospital on above:Satisfactory for evaluation. No endocervical component is identified. 11-08-2022 NotePap Smear Specimen AdequacyJune 2022 3:02pmComment. Satisfactory for evaluation. No endocervical component is identified.[facility] A#[id number] [facility] on above:Satisfactory for evaluation. No endocervical component is identified.11-08-2022 NotePap Smear Specimen AdequacyJune 2022 3:02pmComment.Satisfactory for evaluation. No endocervical component is identified.[facility] A#[id number] Children's Hospital Medical CenterComment on above:Satisfactory for evaluation. No endocervical component is identified.11-08-2022 NotePap Smear Specimen AdequacyJune 2022 3:02pmComment.Satisfactory for evaluation. No endocervical component is identified.[facility] A#[id number] HealthComment on above:Satisfactory for evaluation. No endocervical component is identified. 07-12-2022 History and physical note Author Philip Drummond [facility] July 12, 2022 11:56am Note Date/Time July 12, 2022 1 1:56am [facility] Medical Records Department [address] [place] [address] History & Physical Exam 07/12/22 1156 MR#: [id number] Acct: [id number] Name: LAYLA HIGUERA Rep #:[id number] : 1950 72 From: Philip Drummond DO PCP: Dr. Taras Green MD Status:[facility] [place] Location: [place] [address] History and Physical Date of Admission: 07/12/22 71 F who presents to the office today for?Follow up visit. Layla established with this clinic .12.23 following [facility] hospitalization. Gastroenterology saw rolanda an outpatient for [...] with referral from PCP. She presented to [facility] ED 6.. for abdominal cramping and inability [...] HPI otherwise normal.) Quality Reporting Tobacco Screening ([facility] 138) Smoking Status: Former smoker Assessment and [...] of exam. 07/12/22 1156 <Electronically signed by hPilip Drummond DO> Cosigner Signature (if applicable): CC: Dr. Taras Green MD; Philip Drummond DO~ Signed [facility] Work Phone: 1(335) 481-556702-07-2023 Procedure [facility] 07-12-2022 Procedure [facility]02-07-2023 Procedure note [facility]02-07-2023 Procedure [facility] 10-15-2021 Miscellaneous Notes* Telephone Encounter - Inés [...] you. Inés Nuñez RN [facility] of Past illness Narrative* Problem Noted [...] of this encounter (statuses as of 10/16/2021) [facility] Narrative* Problem Noted [...] of this encounter (statuses as of 02/02/2023) [facility] Narrative* Problem Noted [...] of this encounter (statuses as of 02/22/2023) [facility] Narrative* Problem Noted [...] of this encounter (statuses as of 02/22/2023) [facility] Narrative* Problem Noted [...] of this encounter (statuses as of 03/14/2023) [facility] Narrative* Problem Noted [...] of this encounter (statuses as of 04/03/2023) [facility] Narrative* Problem Noted [...] of this encounter (statuses as of 04/09/2023) [facility] Narrative* Problem Noted [...] of this encounter (statuses as of 04/14/2023) [facility] Narrative* Problem Noted [...] of this encounter (statuses as of 04/14/2023) [facility] Narrative* Problem Noted [...] of this encounter (statuses as of 04/18/2023) [facility] Narrative* Problem Noted [...] of this encounter (statuses as of 07/10/2023) [facility]* Diagnosis Mixed hyperlipidemia Type 2 diabetes mellitus with diabetic neuropathy, with long-term current use of insulin (HCC) documented [facility] this encounter [facility]* Diagnosis Onset Date Resolution Status Chest pain acute Atherosclerosis of coronary artery of [place] heart without angina pectoris chronic Essential (primary) hypertension chronic Hyperlipidemia chronic H/O coronary artery bypass surgery May 30, 2018 resolved Atherosclerosis of coronary artery of [place] heart without angina pectoris chronic Essential (primary) hypertension chronic Hyperlipidemia chronic Contact with or suspected ex posure to other viral communicable disease [facility] Work Phone: Evaluation note* Diagnosis Onset Date Resolution Status Atherosclerosis of coronary artery of [place] heart without angina pectoris chronic Essential (primary) hypertension chronic Hyperlipidemia chronic Contact with or suspected ex posure to other viral communicable disease [facility] Work Phone: Evaluation note* Diagnosis Onset Date Resolution Status Closed fracture of distal phalanx of right thumb noneactive Atherosclerosis of coronary artery of [place] heart without angina pectoris chronic Essential (primary) [...] of distal phalanx of right thumb noneactive [facility] Work Phone: Evaluation note* Diagnosis Onset Date Resolution Status Pancreatitis acute Bloating chronic Constipation chronic Closed fracture of distal phalanx of right thumb noneactive Closed fracture of distal phalanx of right thumb noneactive [facility] Work Phone: Evaluation note* Diagnosis Onset Date Resolution Status Closed fracture of distal phalanx of right thumb noneactive [facility] Work Phone: Evaluation note* Diagnosis Onset Date Resolution Status Closed fracture of distal phalanx of right thumb noneactive Chest pain acute MAURICIO (dyspnea on exertion) [place] Atherosclerosis of coronary artery of [place] heart without angina pectoris chronic Essential (primary) hypertension chronic Hyperlipidemia [facility] Work Phone: Evaluation note* Diagnosis Onset Date Resolution Status Chest pain acute MAURICIO (dyspnea on exertion) [place] Atherosclerosis of coronary artery of [place] heart without angina pectoris chronic Essential (primary) hypertension chronic Hyperlipidemia [facility] Work Phone: Evaluation note* Diagnosis Onset Date Resolution Status Chest pain acute MAURICIO (dyspnea on exertion) [place] Atherosclerosis of coronary artery of [place] heart without angina pectoris chronic Essential (primary) hypertension chronic Hyperlipidemia chronic Acute sinusitis acute Nausea acute Yeast vaginitis acute [facility] Work Phone: Evaluation note* Diagnosis Onset Date Resolution Status Acute sinusitis acute Nausea acute Yeast vaginitis acute [facility] Work Phone: Evaluation note* Diagnosis Onset Date Resolution Status Bradycardia acute Atherosclerosis of coronary artery of [place] heart without angina pectoris chronic Essential (primary) hypertension chronic Hyperlipidemia chronic Nausea acute Bloating chronic Constipation chronic [facility] Work Phone: Evaluation note* Diagnosis Onset Date Resolution Status Bradycardia acute Atherosclerosis of coronary artery of [place] heart without angina pectoris chronic Essential (primary) hypertension chronic Hyperlipidemia chronic Nausea acute Bloating chronic Constipation chronic Arterial vascular disease ch ronic Bilateral buttock pain chron ic Former smoker chronic Lumbar back pain [facility] Work Phone: Evaluation note* Diagnosis Onset Date Resolution Status Bradycardia acute Atherosclerosis of coronary artery of [place] heart without angina pectoris chronic Essential (primary) hypertension chronic Hyperlipidemia chronic Nausea acute Bloating chronic Constipation chronic Arterial vascular disease ch ronic Bilateral buttock pain chron ic Current use of manager shell anticoagulation chronic Former smoker chronic Lumbar back pain [facility] Work Phone: Evaluation note* Diagnosis Chronic obstructive pulmonary disease, unspecified COPD type (HCC) [facility] Diagnosis Chronic obstructive pulmonary disease, unspecified COPD type (HCC) documented [facility] encounter [facility]* Diagnosis COPD, mild (HCC)- Primary Chronic airway obstruction, not elsewhere classified Former cigarette smoker Personal history of tobacco use, presenting hazards to health documented in [facility] encounter [facility]* Diagnosis Encounter for screening for lung cancer- Primary Former cigarette smoker Personal history of tobacco use, presenting hazards to health documented in this encounter [facility] note* Diagnosis Onset Date Resolution Status Arterial vascular disease ch ronic Bilateral buttock pain chron ic Current use of manager shell anticoagulation chronic Former smoker chronic Lumbar back pain chronic [facility] Work Phone: Evaluation note* Diagnosis Bilateral carpal tunnel syndrome- Primary Carpal tunnel syndrome [facility] Diagnosis Bilateral hand pain Pain in limb [facility] Diagnosis Former cigarette smoker Personal history of tobacco use, presenting hazards to health documented in this encounter [facility]* Diagnosis Former smoker- Primary Personal history of tobacco use, presenting hazards to health [facility]* Diagnosis Lung nodules- Primary Other nonspecific abnormal finding of lung field Former smoker Personal history of tobacco use, presenting hazards to health [facility]* Diagnosis Onset Date Resolution Status Nausea acute Bloating chronic Constipation chronic Chest pain acute Diminished pulses in lower extremity acute Atherosclerosis of coronary artery of [place] heart without angina pectoris chronic Essential (primary) hypertension chronic Hyperlipidemia chronic H/O coronary artery bypass surgery May 30, 2018 resolved [facility] Work Phone: Evaluation note* Diagnosis Onset Date Resolution Status Chest pain acute Diminished pulses in lower extremity acute Atherosclerosis of coronary artery of [place] heart without angina pectoris chronic Essential (primary) hypertension chronic Hyperlipidemia chronic H/O coronary artery bypass surgery May 30, 2018 resolved [facility] Work Phone: Evaluation noteNo assessment information available [facility] Work Phone: Evaluation note* Diagnosis Vulvar dermatitis- Primary Other inflammatory disease of cervix, vagina and vulva Cystocele, midline documented in this encounter [facility]* Diagnosis Vaginal itching- Primary Pruritus of genital organs Cystocele, midline [facility] Dis[facility] instructionsAdditional Instructions Please follow-up with your tailings man as well as your family physician for further evaluation especially if the symptoms persist. Your workup today was very reassuring. You did have intermittent slow heart rate called bradycardia. Please talk to your tailings man about this.[facility] Work Phone: Reason for referral (narrative)* Outpatient Procedure (Routine) - Authorized Specialty Diagnoses / Procedures Referred By Dimas higgins Referred To Contact [facility] Diagnoses Bilateral carpal tunnel syndrome Procedures EMG(NEURO/NI) NERVE CONDUCTION STUDIES 9-10 STUDIES Jonathon Carpio MD [address] [place] [address] Neurological [place] [address] [place] [address] Referral ID Status Reason Start Date Expiration Date Visits Requested Visits Authorized [id number] Authorized Auto-Generat ed Referral 03/09/2023 03/09/2024 1 1 [facility] for referral (narrative)* Diagnostic Procedure Only (Routine) - Closed Specialty Diagnoses / Procedures Referred By Contac t Referred To Contact XR IMAGING Diagnoses Bilateral hand pain Procedures XR HAND GENERAL 3V PA/LAT/OBL BILATERAL RADEX HAND MINIMUM 3 VIEWS Jonathon Carpio MD [address] [place] [address] [place] [address] Referral ID Status Reason Start Date Expiration Date V isits Requested Visits Authorized [id number] Closed Auto-Generate d Referral 03/01/2023 03/30/2024 1 1 [facility] for referral (narrative)No reason for referral information availableWCincinnati Children's Hospital [facility] Work Phone: [facility] for [facility] Narrative* Diagnostic Procedure Only (Routine) - Closed Specialty Diagnoses / Procedures Referred By Contac t Referred To Contact XR IMAGING Diagnoses Bilateral hand pain Procedures XR HAND GENERAL 3V PA/LAT/OBL BILATERAL RADEX HAND MINIMUM 3 VIEWS Jonathon Carpio MD [address] [place] [address] [place] [address] Referral ID Status Reason Start Date Expiration Date V isits Requested Visits Authorized [id number] Closed Auto-Generate d Referral 03/01/2023 03/30/2024 1 1 [facility] Summary Purpose Family History Relationship Condition Age [...] Documents on File Type Date Recorded 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 Advance Directives and Living Will Power of Delivery Coordinator Documents on File Type Date Recorded 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 Advance Directive(s) 01/25/2019 8:28 PM Advance Directive(s) 08/14/2018 5:53 PM Advance Directive Response Recorded Date/ Time Advance Directives No September 12, 014 10:52pm Living Will No July 15 4:46pm Power of Delivery Coordinator No July 15, 2021 4:46pm Advance Directive Response Recorded Date/ Time Advance Directives No September 12 10:52pm Living Will No November 06, 2021 1 0:13am Power of Delivery Coordinator No November 06, 2021 10:13am Advance Directive Response Recorded Date/ Time Advance Directives No September 12 9:52pm Living Will No November 06, 2021 9 :13am Power of Delivery Coordinator No November 06, 2021 9:13am Advance Directive Response Recorded Date/ Time Advance Directives No September 12 9:52pm Living Will No July 08 1:58pm Power of Delivery Coordinator No July 08, 2022 1:58pm Advance Directive Response Recorded Date/ Time Advance Directives No September 12 10:52pm Living Will No July 08 2:58pm Power of Delivery Coordinator No July 08, 2022 2:58pm Advance Directive Response Recorded Date/ Time Living Will No July 08 2:58pm Power of Delivery Coordinator No July 08, 2022 2:58pm Living Will No October 25, 2023 2 :50pm Power of Delivery Coordinator Yes October 25, 2023 2:50pm Advance Directives No April 12, 2024 2:32pm Advance Directive Response Recorded Date/ Time Living Will No October 25, 2023 2 :50pm Do you have a Healthcare Power of Delivery Coordinator? Yes October 25, 2023 2:50pm Advance Directives No April 12, 2024 2:32pm Advance Directive Response Recorded Date/ Time Living Will No July 08 2:58pm Do you have a Healthcare Power of Delivery Coordinator? No July 08, 2022 2:58pm Advance Directives No April 12, 2024 2:32pm Advance Directive Response Recorded Date/ Time Living Will No July 08 2:58pm Do you have a Healthcare Power of Delivery Coordinator? No July 08, 2022 2:58pm Do you have a Healthcare Power of Delivery Coordinator? No December 31, 2024 4:03pm Advance Directives [...] be sent through Care Everywhere. * Sinusitis (Kyrgyz) * Sinus Rinse ([place]yrgyz) documented in this encounter* Attachments The following attachments cannot be sent through Care Everywhere. * SOB (Shortness of Breath) ([place]z) documented in this encounter Chief Complaint and Reason for Visit Chief Complaint 1 Y FU NUMBNESS & TINGLING CHEST PAIN CHEST PAIN CHEST PAIN SCREENING right thumb 6 wk FU RIGHT THUMB xray RIGHT THUMB xray Right thumb xray CEPHEID TEST RT DISPL OBLIQUE FX THUMB,ARTH RT THUMB IP JNT/RX Reason for Visit Chest pain Atherosclerosis of coronary artery of [place] heart without angina pectoris Essential (primary) hypertension Hyperlipidemia H/O coronary artery bypass surgery Atherosclerosis of coronary artery of [place] heart without angina pectoris Essential (primary) hypertension [...] Chest pain Atherosclerosis of coronary artery of [place] heart without angina pectoris Essential (primary) hypertension Hyperlipidemia H/O coronary artery bypass surgery Atherosclerosis of coronary artery of [place] heart without angina pectoris Essential (primary) hypertension Hyperlipidemia Contact with or suspected exposure to other viral communicable disease Chief Complaint CHEST PAIN CHEST PAIN CHEST PAIN SCREENING right thumb 6 wk FU RIGHT THUMB xray RIGHT THUMB xray Right thumb xray CEPHEID TEST RT DISPL OBLIQUE FX THUMB,ARTH RT THUMB IP JNT/RX constipation Reason for Visit Atherosclerosis of c oronary artery of [place] heart without angina pectoris Essential (primary) hypertension [...] right thumb Atherosclerosis of coronary artery of [place] heart without angina pectoris Essential (primary) hypertension [...] on exertion) Atherosclerosis of coronary artery of [place] heart without angina pectoris Essential (primary) hypertension Hyperlipidemia Chief Complaint BILAT LOWER 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 LOWER Type 2 diabetes mellitus with diabetic 6 M FU E-ORDER Reason for Visit Chest pain MAURICIO (dyspnea on exertion) Atherosclerosis of coronary artery of [place] heart without angina pectoris Essential (primary) hypertension Hyperlipidemia Chief Complaint BILAT LOWER 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 LOWER Type 2 diabetes mellitus with diabetic 6 M FU E-ORDER Urinary tract infection Reason for Visit Chest pain MAURICIO (dyspnea on exertion) Atherosclerosis of coronary artery of [place] heart without angina pectoris Essential (primary) hypertension Hyperlipidemia Acute sinusitis Nausea Yeast vaginitis Chief Complaint 6 M FU E-ORDER Urinary tract infection Reason for Visit Chest pain MAURICIO (dyspnea on exertion) Atherosclerosis of coronary artery of [place] heart without angina pectoris Essential (primary) hypertension Hyperlipidemia Acute sinusitis Nausea Yeast vaginitis Chief Complaint Urinary tract infect ion SCREENING Reason for Visit Acute sinusitis Nausea Yeast vaginitis Chief Complaint SCREENING 1 Y FU 2 WK FU NAUSEA Type 2 diabetes mellitus with hyperglycemia Reason for Visit Bradycardia Atherosclerosis of coronary artery of [place] heart without angina pectoris Essential (primary) hypertension Hyperlipidemia Nausea Bloating Constipation Chief Complaint SCREENING 1 Y FU 2 WK FU NAUSEA Type 2 diabetes mellitus with hyperglycemia MASTODYNIA Reason for Visit Bradycardia Atherosclerosis of coronary artery of [place] heart without angina pectoris Essential (primary) hypertension Hyperlipidemia Nausea Bloating Constipation Chief Complaint SCREENING 1 Y FU 2 WK FU NAUSEA Type 2 diabetes mellitus with hyperglycemia MASTODYNIA LIPOMA OF BUTTOCKS Reason for Visit Bradycardia Atherosclerosis of coronary artery of [place] heart without angina pectoris Essential (primary) hypertension Hyperlipidemia Nausea Bloating Constipation Arterial vascular disease Bilateral buttock pain Former smoker Lumbar back pain Chief Complaint SCREENING 1 Y FU 2 WK FU NAUSEA Type 2 diabetes mellitus with hyperglycemia MASTODYNIA LIPOMA OF BUTTOCKS CHEST PAIN Reason for Visit Bradycardia Atherosclerosis of coronary artery of [place] heart without angina pectoris Essential (primary) hypertension Hyperlipidemia Nausea Bloating Constipation Arterial vascular disease Bilateral buttock pain Current use of snf anticoagulation Former smoker Lumbar back pain Chief Complaint MASTODYNIA LIPOMA OF BUTTOCKS CHEST PAIN CP CHRONIC SINUSITIS LEFT AND RIGHT SUPEROLATERAL BUTTOCK Reason for Visit Arterial vascular di sease Bilateral buttock pain Current use of manager shell anticoagulation Former smoker Lumbar back pain Chief Complaint CHRONIC SINUSITIS LEFT AND RIGHT SUPEROLATERAL BUTTOCK 4 MO FU CP PER PETER PT NEEDS PM APT (SCANNED) DECREASED PEDAL PULSES CARPAL TUNNEL, BILATERAL Carpal tunnel syndrome, bilateral upper limbs CARPAL TUNNEL, BILATERAL Reason for Visit Nausea Bloating Constipation Chest pain Diminished pulses in lower extremity Atherosclerosis of coronary artery of [place] heart without angina pectoris Essential (primary) hypertension [...] lower extremity Atherosclerosis of coronary artery of [place] heart without angina pectoris Essential (primary) hypertension [...] lower extremity Atherosclerosis of coronary artery of [place] heart without angina pectoris Essential (primary) hypertension [...] TOMOGRAPHY THORAX LW DOSE LNG CA SCR Kankia Wright, BRAKE SHOE REBUILDER.DESIGN PROJECT MANAGER [address] [id number] [facility] [place] [address] Referral ID Status Reason Start Date Expiration Date Visits Requested Visits Authorized [id number] Additional Clinical Info Needed Auto-Generat ed Referral 3 04/12/2024 1 1 Specialty Diagnoses / Procedures Referred By Contac t Referred To Contact CT IMAGING Diagnoses Former smoker Procedures CT LUNG SCREEN WO IVCON COMPUTED TOMOGRAPHY THORAX LW DOSE LNG CA May Jennings, BRAKE SHOE REBUILDER.DESIGN PROJECT MANAGER [address] [id number] [facility] [place] [address] Referral ID Status Reason Start Date Expiration Date Visits Requested Visits Authorized [id number] Pending Review Auto-Generat ed Referral 3 05/16/2024 1 1 Specialty Diagnoses / Procedures Referred By Contac t Referred To Contact Diagnoses Cystocele, midline Procedures CONSULT TO URO GYNECOLOGY OFFICE/OUTPATIENT [facility] 60 MINUTES Mae Raya MD [address] [place] [address] Referral ID Status Reason Start Date Expiration Date Visits Requested Visits Authorized [id number] Authorized PCP Requested Referral Auto-Generate d Referral 07/02/2024 07/02/2025 1 1 Additional Source Comments INFORMATION SOURCE (unrecogn ized section and content) DATE CREATED AUTHOR 01/10/2019 [facility] DATE CREATED AUTHOR AUTHOR'S ORGANIZ ATION 05/18/2019 [facility] DATE CREATED AUTHOR AUTHOR'S ORGANIZ ATION 04/03/2020 [facility] DATE CREATED AUTHOR AUTHOR'S ORGANIZ ATION 11/18/2020 [facility] ([place]) DATE CREATED AUTHOR AUTHOR'S ORGANIZ ATION 02/25/2023 [facility] DATE CREATED AUTHOR AUTHOR'S ORGANIZ ATION 07/06/2024 [facility] DATE CREATED AUTHOR AUTHOR'S ORGANIZ ATION 12/28/2024 [facility] Reason for Visit (unrecogniz ed section and [...] Gladys Baird MD [address] [place] [address] Respiratory [place] [address] [place] [address] Referral ID Status Reason Start Date Expiration Date V isits Requested Visits Authorized [id number] Closed Auto-Generate d Referral 02/09/2023 03/10/2024 1 1 Specialty Diagnoses / Procedures Referred By Contac t Referred To Contact [facility] Diagnoses Chronic obstructive pulmonary disease, unspecified COPD type (HCC) Procedures LUNG DIFFUSION CAPACITY (DLCO) DIFFUSING CAPACITY Gladys Baird MD [address] [place] [address] [place] [address] Referral ID Status Reason Start Date Expiration Date V isits Requested Visits Authorized [id number] Closed Auto-Generate d Referral 02/09/2023 03/10/2024 1 [...] LNG CA SCR Jose- Kanika Del Cid, BRAKE SHOE REBUILDER.DESIGN PROJECT MANAGER [address] [place] [address] [address] Imaging [place] [address] Referral ID Status Reason Start Date Expiration Date V isits Requested Visits Authorized [id number] Closed Auto-Generate d Referral 03/24/2023 06/21/2023 1 [...] or prosecute any alcohol or drug abuse patient.[facility] HospitalIn the event this information is protected by the Federal Confidentiality of Alcohol and Drug Abuse Patient Records regulations: The Federal rules restrict any use of the information to criminally investigate or prosecute any alcohol or drug abuse patient.[facility] HospitalIn the event this information is protected by the Federal Confidentiality of Alcohol and Drug Abuse Patient Records regulations: The Federal rules restrict any use of the information to criminally investigate or prosecute any alcohol or drug abuse patient.[facility] HospitalIn the event this information is protected by the Federal Confidentiality of Alcohol and Drug Abuse Patient Records regulations: The Federal rules restrict any use of the information to criminally investigate or prosecute any alcohol or drug abuse patient.[facility] HospitalIn the event this information is protected by the Federal Confidentiality of Alcohol and Drug Abuse Patient Records regulations: The Federal rules restrict any use of the information to criminally investigate or prosecute any alcohol or drug abuse patient.[facility] HospitalIn the event this information is protected by the Federal Confidentiality of Alcohol and Drug Abuse Patient Records regulations: The Federal rules restrict any use of the information to criminally investigate or prosecute any alcohol or drug abuse patient.[facility] HospitalIn the event this information is protected by the Federal Confidentiality of Alcohol and Drug Abuse Patient Records regulations: The Federal rules restrict any use of the information to criminally investigate or prosecute any alcohol or drug abuse patient.[facility] HospitalIn the event this information is protected by the Federal Confidentiality of Alcohol and Drug Abuse Patient Records regulations: The Federal rules restrict any use of the information to criminally investigate or prosecute any alcohol or drug abuse patient.[facility] HospitalIn the event this information is protected by the Federal Confidentiality of Alcohol and Drug Abuse Patient Records regulations: The Federal rules restrict any use of the information to criminally investigate or prosecute any alcohol or drug abuse patient.[facility] HospitalIn the event this information is protected by the Federal Confidentiality of Alcohol and Drug Abuse Patient Records regulations: The Federal rules restrict any use of the information to criminally investigate or prosecute any alcohol or drug abuse patient.[facility] HospitalIn the event this information is protected by the Federal Confidentiality of Alcohol and Drug Abuse Patient Records regulations: The Federal rules restrict any use of the information to criminally investigate or prosecute any alcohol or drug abuse patient.[facility] HospitalIn the event this information is protected by the Federal Confidentiality of Alcohol and Drug Abuse Patient Records regulations: The Federal rules restrict any use of the information to criminally investigate or prosecute any alcohol or drug abuse patient.[facility] HospitalIn the event this information is protected by the Federal Confidentiality of Alcohol and Drug Abuse Patient Records regulations: The Federal rules restrict any use of the information to criminally investigate or prosecute any alcohol or drug abuse patient.[facility] HospitalIn the event this information is protected by the Federal Confidentiality of Alcohol and Drug Abuse Patient Records regulations: The Federal rules restrict any use of the information to criminally investigate or prosecute any alcohol or drug abuse patient.[facility] HospitalIn the event this information is protected by the Federal Confidentiality of Alcohol and Drug Abuse Patient Records regulations: The Federal rules restrict any use of the information to criminally investigate or prosecute any alcohol or drug abuse patient.[facility] HospitalIn the event this information is protected by the Federal Confidentiality of Alcohol and Drug Abuse Patient Records regulations: The Federal rules restrict any use of the information to criminally investigate or prosecute any alcohol or drug abuse patient.[facility] HospitalIn the event this information is protected by the Federal Confidentiality of Alcohol and Drug Abuse Patient Records regulations: The Federal rules restrict any use of the information to criminally investigate or prosecute any alcohol or drug abuse patient.[facility] Care Teams (unrecognized sec tion and content) Menhaden Vessel Pilot Relationship Specialty Start Date End Date Chris More MD [address] [facility] [address] [place], [place] [id number] Physician Cardiology 08/11/18 Rajan Marroquin MD [address] [place] [address] Consulting Pulmonary and Critical Care Medicine 11/26/19 Team Status: Active Member Role Status Dates Susan Teague Family Provider Active Dr. Taras Green MD Primary Care Provider Active Team Status: Inactive Member Role Status Dates Dr. Taras Green MD Primary Care Provider, Referring Provider Active May Jacobs TRANSLATIONAL SPECIALIST, TRANSLATIONAL SPECIALIST-C Attending Provider Active Team Status: Active Member [...] MD Primary Care Provider Active May Jacobs TRANSLATIONAL SPECIALIST, TRANSLATIONAL SPECIALIST-C Attending Provider, Referring Alex mayfield Active Team [...] Dr. Abdelrahman Saldana MD Active May Jacobs TRANSLATIONAL SPECIALIST, TRANSLATIONAL SPECIALIST-C Attending Provider Active Team Status: Inactive Member [...] Active GABY Hameed Attending Provider, Referring Provi keenan Active Dr. Philip Drummond DO Other Provider [...] MD Primary Care Provider, Attending Provider Active Menhaden Vessel Pilot Relationship Specialty Start Date End Date Chris More MD [address] [place] [address] (Fax) Physician Cardiology 08/11/18 Rajan Marroquin MD [address] [place] [address] Consulting Pulmonary and Critical Care Medicine 11/26/19 Menhaden Vessel Pilot Relationship Specialty Start Date End Date Peter Taras Constantin [address] [place] [address] PCP - General Gerontology 02/21/23 Chris More MD [address] [place] [phone] (Fax) Physician Cardiology 08/11/18 Rajan Marroquin MD [address] [place], [place] [address] Consulting Pulmonary and Critical Care Medicine 11/26/19 Menhaden Vessel Pilot Relationship Specialty Start Date End Date PeterTaras Constantin [address] [place] [address] PCP - General Gerontology 02/21/23 Chris More MD [address] [place] [address] (Fax) Physician Cardiology 08/11/18 Rajan Marroquin MD [address] [place] [address] Consulting Pulmonary and Critical Care Medicine 11/26/19 Menhaden Vessel Pilot Relationship Specialty Start Date End Date Taras Green Chi [address] [place] [address] PCP - General Gerontology 02/21/23 Chris More MD [address] [place] [address] Physician Cardiology 08/11/18 Rajan Marroquin MD [address] [place], [place] [address] Consulting Pulmonary and Critical Care Medicine 11/26/19 Menhaden Vessel Pilot Relationship Specialty Start Date End Date Taras Green Chi [address] [place] [address] PCP - General Gerontology 02/21/23 Chris More MD [address] [place] [address] Physician Cardiology 08/11/18 Gladys Baird MD [address] [place] [address] Pulmonary and Critical Care Medicine 03/14/23 Team [...] MD Primary Care Provider Active Miriam House TRANSLATIONAL SPECIALIST, TRANSLATIONAL SPECIALIST-C Attending Provider, Referri ng Provider Active Team Status: Inactive Member Role Status Dates Dr. Taras Green MD Primary Care Provider Active Miriam House TRANSLATIONAL SPECIALIST, TRANSLATIONAL SPECIALIST-C Attending Provider, Referri ng Provider Active Menhaden Vessel Pilot Relationship Specialty Start Date End Date Taras Green Chi [address] [place] [address] PCP - General Gerontology 02/21/23 Chris More MD [address] [place] [address] Physician Cardiology 08/11/18 Rajan Marroquin MD [address] [place] [address] Consulting Pulmonary and Critical Care Medicine 11/26/19 03/13/23 Menhaden Vessel Pilot Relationship Specialty Start Date End Date Taras Green Chi [address] [place] [address] PCP - General Gerontology 02/21/23 Chris More MD [address] [place] [address] Physician Cardiology 08/11/18 Rajan Marroquin MD [address] [place], [place] [address] Consulting Pulmonary and Critical Care Medicine 11/26/19 03/13/23 Menhaden Vessel Pilot Relationship Specialty Start Date End Date Taras Green Chi [address] [place] [address] PCP - General Gerontology 02/21/23 Chris More MD [address] [place] [address] Physician Cardiology 08/11/18 Gladys Baird MD [address] [place] [address] Pulmonary and Critical Care Medicine 03/14/23 Menhaden Vessel Pilot Relationship Specialty Start Date End Date Taras Green Chi [address] [place] [address] PCP - General Gerontology 02/21/23 Chris More MD [address] [place] [address] Physician Cardiology 08/11/18 Gladys Baird MD [address] [place] [address] Pulmonary and Critical Care Medicine 03/14/23 Menhaden Vessel Pilot Relationship Specialty Start Date End Date Taras Green Chi [address] [place] [address] PCP - General Gerontology 02/21/23 Chris More MD [address] [place] [address] Physician Cardiology 08/11/18 Gladys Baird MD [address] [place] [address] Pulmonary and Critical Care Medicine 03/14/23 Team [...] Marely Taylor PA, PA Referring Provider Active Menhaden Vessel Pilot Relationship Specialty Start Date End Date Taras Green Chi [address] [place] [address] PCP - General Gerontology 02/21/23 Chris More MD [address] [place] [address] Physician Cardiology 08/11/18 Gladys Baird MD [address] [place] [address] Pulmonary and Critical Care Medicine 03/14/23 Team [...] MD Attending Provider, Refe janetteing Provider Active Menhaden Vessel Pilot Relationship Specialty Start Date End Date Taras Green Chi [address] [place] [address] PCP - General Gerontology 02/21/23 Chris More MD [address] [place] [address] Physician Cardiology 08/11/18 Gladys Baird MD [address] [place] [address] Pulmonary and Critical Care Medicine 03/14/23 Menhaden Vessel Pilot Relationship Specialty Start Date End Date Taras Green Chi [address] [place] [address] PCP - General Gerontology 02/21/23 Chris More MD [address] [place] [address] Physician Cardiology 08/11/18 Gladys Baird MD [address] [address] Pulmonary and Critical Care Medicine 03/14/23 Menhaden Vessel Pilot Relationship Specialty Start Date End Date Taras Green Chi [address] [place] [address] PCP - General Gerontology 02/21/23 Chris More MD [address] [place] [address] Physician Cardiology 08/11/18 Gladys Baird MD [address] [place] [address] Pulmonary and Critical Care Medicine 03/14/23 Team Status: Active Member Role Status Dates Ximena Sylvester , TRANSLATIONAL SPECIALIST-C Primary Care Provider Active Team Status: Inactive Member Role Status Dates Dr. Williams Starr DO Referring Provider Active Start: April 23, 2024 End: April 23, 2024 Marely Taylor PA, PA Attending Provider Active Start: April 23, 2024 End: April 23, 2024 Ximena Sylvester , TRANSLATIONAL SPECIALIST-C Primary Care Provider Active Start: April 23, 2024 End: April 23, 2024 Team Status: Inactive Member Role Status Dates Ximena Sylvester TRANSLATIONAL SPECIALIST-C Primary Care Provider Active Start: May 14, 2024 End: May 14, 2024 Ximena Sylvester , TRANSLATIONAL SPECIALIST-C Referring Provider Active St art: May 14, 2024 End: May 14, 2024 Dr. Brendon Orozco MD Attending Provider Active Start: May 14, 2024 End: May 14, 2024 Team Status: Inactive Member Role Status Dates Ximena Sylvester , TRANSLATIONAL SPECIALIST-C Primary Care Provider Active Start: May 14, 2024 End: May 14, 2024 Dr. Abdelrahman Saldana MD Attending Provider Active S tart: May 14, 2024 End: May 14, 2024 Team Status: Inactive Member Role Status Dates Ximena Sylvester TRANSLATIONAL SPECIALIST-C Primary Care Provider Active Start: May 27, 2024 End: May 27, 2024 Tere Mckenzie TRANSLATIONAL SPECIALIST-C Attending Provider Active Start: May 27, 2024 End: May 27, 2024 Tere Mckenzie TRANSLATIONAL SPECIALIST-C Referring Provider Active Start: May 27, 2024 End: May 27, 2024 Team Status: Inactive Member Role Status Dates Ximena Sylvester , TRANSLATIONAL SPECIALIST-C Primary Care Provider Active Start: June 11, 2024 End: June 11, 2024 Ximena Sylvester TRANSLATIONAL SPECIALIST-C Attending Provider Active St art: June 11, 2024 End: June 11, 2024 Ximena Sylvester , TRANSLATIONAL SPECIALIST-C Referring Provider Active St art: June 11, 2024 End: June 11, 2024 Team Status: Inactive Member Role Status Dates Ximena Omero , TRANSLATIONAL SPECIALIST-C Primary Care Provider Active Start: June 13, 2024 End: June 13, 2024 Ximena Sylvester , TRANSLATIONAL SPECIALIST-C Referring Provider Active St art: June 13, 2024 End: June 13, 2024 Dr. Philip Drummond , Attending Provider Active Start: June 13, 2024 End: June 13, 2024 Team Status: Inactive Member Role Status Dates Ximena Sylvester , TRANSLATIONAL SPECIALIST-C Primary Care Provider Active Start: August 09, 2024 End: August 09, 2024 Ximena Sylvester , TRANSLATIONAL SPECIALIST-C Referring Provider Active St art: August 09, 2024 End: August 09, 2024 Dr. Philip Drummond , Attending Provider Active Start: August 09, 2024 End: August 09, 2024 Team Status: Active Member Role Status Dates Ximena Sylvester , TRANSLATIONAL SPECIALIST-C Primary Care Provider Active Start: August 09, 2024 Ximena Sylvester , TRANSLATIONAL SPECIALIST-C Referring Provider Active St art: August 09, 2024 Dr. Philip Drummond , Attending Provider Active Start: August 09, 2024 Dr. Philip Drummond , Other Provider Active St art: August 09, 2024 Team Status: Inactive Member Role Status Dates Ximena Sylvester , TRANSLATIONAL SPECIALIST-C Primary Care Provider Active Start: September 02, 2024 End: September 02, 2024 Ximena Sylvester TRANSLATIONAL SPECIALIST-C Referring Provider Active St art: September 02, 2024 End: September 02, 2024 Tere Mckenzie NP-C Attending Provider Active Start: September 02, 2024 End: September 02, 2024 Team Status: Inactive Member Role Status Dates Ximena Sylvester TRANSLATIONAL SPECIALIST-C Primary Care Provider Active Start: September 03, 2024 End: September 03, 2024 Tere Mckenzie TRANSLATIONAL SPECIALIST-C Attending Provider Active Start: September 03, 2024 End: September 03, 2024 Team Status: Active Member Role/Relationship Status Dates Ximena Sylvester TRANSLATIONAL SPECIALIST-C Primary Care Provider Active Team Status: Inactive Member Role/Relationship Status Dates Ximena Sylvester TRANSLATIONAL SPECIALIST-C Primary Care Provider Active Start: September 02, 2024 End: September 02, 2024 Ximena Sylvester TRANSLATIONAL SPECIALIST-C Referring Provider Active St art: September 02, 2024 End: September 02, 2024 Tere Mckenzie NP-C Attending Provider Active Start: September 02, 2024 End: September 02, 2024 Team Status: Inactive Member Role/Relationship Status Dates Ximena Omero , TRANSLATIONAL SPECIALIST-C Primary Care Provider Active Start: September 03, 2024 End: September 03, 2024 Tere Mckenzie TRANSLATIONAL SPECIALIST-C Attending Provider Active Start: September 03, 2024 End: September 03, 2024 Team Status: Inactive Member Role/Relationship Status Dates Ximena Omero , TRANSLATIONAL SPECIALIST-C Primary Care Provider Active Start: October 03, 2024 End: October 03, 2024 Ximena Sylvester , TRANSLATIONAL SPECIALIST-C Referring Provider Active St art: October 03, [...] End: December 10, 2024 Ximena Omero , TRANSLATIONAL SPECIALIST-C Primary Care Provider Active Start: December 10, 2024 End: December 10, 2024 Team Status: Inactive Member Role/Relationship Status Dates Ximena Omero , TRANSLATIONAL SPECIALIST-C Primary Care Provider Active Start: December 03, 2024 Dr. Geri Mckeon MD Attending Provider Active Start: December 03, 2024 Team Status: Inactive Member Role/Relationship Status Dates Dr. Williams Starr DO Referring Provider Active Start: December 10, 2024 End: December 10, 2024 Dr. Abdelrahman Saldana MD Attending Provider Active S tart: December 10, 2024 End: December 10, 2024 Ximena Omero , TRANSLATIONAL SPECIALIST-C Primary Care Provider Active Start: December 10, 2024 End: December 10, 2024 Team Status: Active Member Role/Relationship Status Dates Ximena Omero , TRANSLATIONAL SPECIALIST-C Primary Care Provider Active Start: December 31, 2024 Ximena Sylvester , TRANSLATIONAL SPECIALIST-C Attending Provider Active St art: December 31, 2024 Ximena Omero , TRANSLATIONAL SPECIALIST-C Referring Provider Active St art: December 31, 2024 Team Status: Inactive Member Role/Relationship Status Dates Ximena Omero , TRANSLATIONAL SPECIALIST-C Primary Care Provider Active Start: December 31, [...] BE BASED ON THE PRIMARY CLINICAL RECORDS. [facility] [employer] [facility]. provides no warranty or guarantee of the accuracy or completeness of information in this document.
== END 2024-12-31 20:51 | disposition home or self-care (01) ==
PROVIDERS: Emergency Provider Emergency Medicine; PCP Nurse Practitioner Family; Visit Provider Emergency Medicine
DX: R07.89 Other chest pain (principal); E11.9 Type 2 diabetes mellitus without complications; Z79.4 Long term (current) use of insulin; I10 Essential (primary) hypertension; E78.00 Pure hypercholesterolemia, unspecified; I25.10 Atherosclerotic heart disease of native coronary artery without angina pectoris; Z87.891 Personal history of nicotine dependence; S63.92XA Sprain of unspecified part of left wrist and hand, initial encounter; Z95.1 Presence of aortocoronary bypass graft; I69.398 Other sequelae of cerebral infarction; Y04.8XXA Assault by other bodily force, initial encounter; I25.2 Old myocardial infarction; Z79.82 Long term (current) use of aspirin; K21.9 Gastro-esophageal reflux disease without esophagitis; Z79.899 Other long term (current) drug therapy
CPT/HCPCS: 71046; 73130; 80048; 84484; 85025; 93005; 99284; A4216

== ENCOUNTER → 2024-12-31 | Outpatient (CLI) | payer MEDICARE, SELFPAY ==
--- NOTE | 2024-12-31 15:21 | BI_ITS ---
EXAM: SCRN MAMM (CAD)W/DAVE BILAT DATE: 12/31/2024 CLINICAL HISTORY: F, Age 74 y/o , SCREENING TECHNIQUE: SCRN MAMM (CAD)W/DAVE BILAT COMPARISON: Prior exam(s) were compared. FINDINGS: TISSUE DENSITY: The breasts are heterogeneously dense, which may obscure small masses. Bilateral Breast Mammographic Findings: No suspicious masses, calcifications or other abnormalities are identified. BI/SCRN MAMM (CAD)W/DAVE BILAT IMPRESSION: No mammographic evidence of malignancy in either breast OVERALL FINAL ASSESSMENT BI-RADS 1: NEGATIVE. RECOMMENDATION: Routine annual follow-up in 1 Year A letter with findings and recommendations will be mailed to the patient. Reading Location: [id number]
--- OUTSIDE RECORDS SUMMARY | 2024-12-31 23:05 | XMS RPT_ITS | CCD ---
Author Organization [facility] Care Team Providers Care Senior Account Director Name Role Phone Susan Teague Primary Care Provider Chris More MD Unavailable Rajan Marroquin MD Unavailable Dr. Trinity Baird Primary Care Provider Dr. Trinity Baird Referring Provider 1([facility])[phone] Reynaldo MOTOR AND GENERATOR ASSEMBLER, MOTOR AND GENERATOR ASSEMBLER-C May Attending Provider Dr. Taras Green Chi Primary Care Provider 1([facility])[phone] Dr. Abdelrahman Saldana Attending Provider 1([facility])[phone] Reynaldo MOTOR AND GENERATOR ASSEMBLER, MOTOR AND GENERATOR ASSEMBLER-C May Referring Provider Reynaldo MOTOR AND GENERATOR ASSEMBLER, MOTOR AND GENERATOR ASSEMBLER-C May Other Provider 1([facility])[phone] Dr. Taras Green Chi Referring Provider 1([facility])[phone] THERESA Muhammad Attending Provider 1([facility])[phone] THERESA Hoang Attending Provider 1([facility])[phone] Dr. Trinity Baird Referring Provider 1([facility])[phone] Reynaldo DESHPANDE, MOTOR AND GENERATOR ASSEMBLER-C May Attending Provider Dr. Taras Green Chi Primary Care Provider 1([facility])[phone] Dr. Abdelrahman Saldana Attending Provider 1([facility])[phone] Friend, Dr. Palacios Attending Provider 1([facility])[phone] Taras Green Chi Primary Care Provider 1([facility])[phone] Dr. Taras Green Chi Referring Provider 1([facility])[phone] THERESA Muhammad Attending Provider 1([facility])[phone] Dr. Abdelrahman Saldana Attending Provider 1([facility])[phone] Taras Green Chi Primary Care Provider 1([facility])[phone] Peter, Dr. Taras Killian Referring Provider 1([facility])[phone] THERESA Muhammad Attending Provider 1([facility])[phone] Dr. Abdelrahman Saldana Attending Provider 1([facility])[phone] Castro Browne Other Provider 1([facility])[phone] Haja Islas Attending Provider Dr. Castro Browne Referring Provider Reynaldo MOTOR AND GENERATOR ASSEMBLER, MOTOR AND GENERATOR ASSEMBLER-C May Attending Provider Peter, Dr. Taras Killian Primary Care Provider 1([facility])[phone] Peter, Dr. Taras Killian Referring Provider 1([facility])[phone] Friend, Dr. Palacios Attending Provider 1([facility])[phone] Friend, Dr. Palacios Other Provider 1([facility])[phone] THERESA Hoang Attending Provider 1([facility])[phone] Peetr, Dr. Taras Killian Primary Care Provider 1([facility])[phone] Peter, Dr. Taras Killian Primary Care Provider 1([facility])[phone] Peter, Dr. Taras Killian Referring Provider 1([facility])[phone] FriendDr. Palacios Attending Provider 1([facility])[phone] Friend, Dr. Palacios Other Provider 1([facility])[phone] THERESA Hoang Attending Provider 1([facility])[phone] Peter, Dr. Taras Killian Primary Care Provider 1([facility])[phone] Peter, Dr. Taras Killian Referring Provider 1([facility])[phone] Reynaldo DESHPANDE, GABY Olvera Attending Provider Friend, Dr. Palacios Attending Provider 1([facility])[phone] Dr. Beck Finley Attending Provider 1([facility])[phone] Chris More MD Unavailable Rajan Marroquin MD Unavailable Peter, Taras Killian Primary Care Provider 1([facility])[phone] PROVIDER, UNKNOWN Referring Unavailable Gladys Baird MD Unavailable Peter, Dr. Taras Killian Primary Care Provider Peter, Dr. Taras Killian Referring Provider Dr. Princess Lackey Attending Provider [phone] Lopez MCMANUS, Rajan Unavailable Peter, Dr. Taras Killian Primary Care Provider Peter, Dr. Taras Killian Referring Provider Hoda, Dr. Palacios Attending Provider [place], [place] Marely Ramesh Attending Provider Dr. Moy Ozuna Attending Provider [phone] Jonathon Carpio Referring Provider [phone] Dr. Jonathon Carpio Other Provider Dr. Malcolm Truong Attending Provider [place] THERESA, PA Marely Ramesh Other Provider [phone] Dr. Abdelrahman Saldana Attending Provider [phone] Taylor THERESA, PA Marely Ramesh Referring Provider Dr. Taras Green Chi Primary Care Provider Peter, Dr. Taras Killian Referring Provider Dr. Williams Starr Primary Care Provider Dr. Princess Lackey Attending Provider Dr. Deshawn Camarena Referring Provider Peter, Dr. Taras Killian Primary Care Provider Dr. Moy Ozuna Attending Provider [phone] Taylor PA, PA Marely Ramesh Referring Provider Dr. Jonathon Carpio Referring Provider [phone] Dr. Jonathon Carpio Other Provider Dr. Malcolm Truong Attending Provider Taylor PA, [place] Marely Ramesh Other Provider [phone] Dr. Abdelrahman Saldana Attending Provider Dr. Williams Starr Primary Care Provider Dr. Princess Lackey Attending Provider Dr. Deshawn Camarena Referring Provider [phone] Peter, Taras Chi Primary Care Provider MAE RAYA Attending Unavailable PETER, TARAS CHI Primary Care Unavailable PETER, TARAS CHI Primary Care Unavailable AGUSTINA HIRSCH Attending Unavailable Dr. Williams Starr DO Referring Provider Marely Rosario Attending Provider Omero MOTOR AND GENERATOR ASSEMBLER-C, Ximena Primary Care Provider Omero MOTOR AND GENERATOR ASSEMBLER-C, Ximena Referring Provider Dr. Brendon Orozco MD Attending Provider Dr. Abdelrahman Saldana MD Attending Provider Jonah MOTOR AND GENERATOR ASSEMBLER-C, Tere Attending Provider Jonah MOTOR AND GENERATOR ASSEMBLER-C, Tere Referring Provider Omero MOTOR AND GENERATOR ASSEMBLER-C, Ximena Attending Provider Dr. Philip Drummond DO Attending Provider Dr. Philip Drummond DO Other Provider Omero MOTOR AND GENERATOR ASSEMBLER-C, Ximena Primary Care Provider Omero MOTOR AND GENERATOR ASSEMBLER-C, Ximena Primary Care Provider Omero MOTOR AND GENERATOR ASSEMBLER-C, Ximena Referring Provider Jonah MOTOR AND GENERATOR ASSEMBLER-CTere Attending Provider Sally Flores Attending Provider Dr. Williams Starr DO Referring Provider Dr. Abdelrahman Saldana MD Attending Provider Williams Starr Referring Unavailable Omero, Ximena Primary Care Unavailable Abdelrahman Saldana Attending Unavailable Omero, Ximena Referring Unavailable Tere Mckenzie Attending Unavailable Omero, Ximena Primary Care Unavailable Omero, Ximena Primary Care Unavailable Omero, Ximena Referring Unavailable Tere Mckenzie Attending Unavailable Omero, Ximena Referring Unavailable Omero, Ximena Primary Care Unavailable Brendon Orozco Attending Unavailable Omero, Ximena Primary Care Unavailable Abdelrahman Saldana Attending Unavailable RoWilliams Referring Unavailable Omero, Ximena Primary Care Unavailable Marely Taylor Attending Unavailabl e Omero, Ximena Primary Care Unavailable Omero, Ximena Referring Unavailable Friend, Philip Attending Unavailable Omero, Ximena Primary Care Unavailable AtaSally yoon Attending Unavailable Omero, Ximena Referring Unavailable Omero, Ximena Referring Unavailable Omreo, Ximena Primary Care Unavailable AtanasovSally Attending Unavailable Omero, Ximena Primary Care Unavailable Omero, Ximena Referring Unavailable Friend, Philip Attending Unavailable Friend, Philip Consulting Unavailable Omero, Ximena Primary Care Unavailable Jonah, Tere Referring Unavailable JonahTere Attending Unavailable Omero, Ximena Primary Care Unavailable Omero, Ximena Referring Unavailable Omero, Ximena Attending Unavailable Omero, Ximena Attending Unavailable Omero, Ximena Primary Care Unavailable Omero, Ximena Referring Unavailable Omero, Ximena Primary Care Unavailable Omero, Ximena Referring Unavailable Friend, Philip Attending Unavailable Omero, Ximena Primary Care Unavailable Tere Mckenzie Attending Unavailable Omero, Ximena Attending Unavailable Omero, Ximena Primary Care Unavailable Omero, Ximena Referring Unavailable Omero, Ximena Attending Unavailable Omero, Ximena Primary Care Unavailable Oemro, Ximena Referring Unavailable Omero, Ximena Attending Unavailable Omero, Ximena Primary Care Unavailable Omero, Ximena Referring Unavailable Dr. Geri Mckeon MD Attending Provider [phone] Omero MOTOR AND GENERATOR ASSEMBLER-CXimena Attending Provider Dr. Marleny Davis DO Emergency Provider Allergies Allergy Classification Reported Allergen(s) Allergy Type Date of Onset Reaction(s) Facility (20 sources) Acetaminophen; 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: [ACETAMINOPHEN] Drug Allergy 10-15-19 15 Nausea And Vomiting, GI Upset [place], [place] Comment on above: back pain (3 sources) Angiotensin Converting Enzyme ([place]) Inhibitors Propensity to adverse reactions to drug 01-13-20 15 Other (See Comments) [place], [place] (20 sources) Codeine; 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: [CODEINE] Drug Allergy 05-30-20 12 Other (See Comments), Mental Status Change [place], [place] Comment on above: hallucinate (3 sources) diphenhydrAMINE Drug Allergy 03-02-20 15 Palpitations [place] (20 sources) Metoclopramide Drug Allergy 11-13-19 15 Other (See Comments) [place] Comment on above: seizure (9 sources) Penicillins; 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: [PENICILLINS] Propensity to adverse reactions to drug 05-30-20 12 Swelling [place], [place] (3 sources) Sulfonamides (Antibiotic) Propensity to adverse reactions to drug 11-13-19 15 Swelling [place] (20 sources) Sulfur; 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: [SULFUR] Drug Allergy 05-30-20 12 [place], [place] (19 sources) Metoclopramide; 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: [METOCLOPRAMIDE HCL] Drug Allergy 10-21-19 15 Other: See Comments [facility] (1 source) Penicillins Drug Allergy 05-30-[address] [facility] Work Phone: (18 sources) rosuvastatin; 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: [ROSUVASTATIN] Drug Allergy 02-28-20 20 Myalgia [facility] Work Phone: (19 sources) Benadryl Allergy Decongestant; 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: [BENADRYL ALLERGY DECONGESTANT] Propensity to adverse reactions to drug 05-27-20 18 Other: See Comments [facility] (5 sources) Acetaminophen Drug Allergy 10-19-19 22 Other [facility] Work Phone: (20 sources) diphenhydrAMINE Drug Allergy 10-19-19 22 Other [facility] Comment on above: severe anxiety (20 sources) Sulfonamides (Antibiotic); 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: [Sulfa (Sulfonamide Antibiotics)] Allergy to substance 10-19-19 Swelling [facility] (20 sources) Penicillins Allergy to substance 12-02-19 22 [facility] (16 sources) Penicillins Drug Allergy 05-30-[address] [facility] Work Phone: (1 source) Acetaminophen Drug Allergy 07 [facility] Repository (1 source) Codeine Drug Allergy 12-11-19 [facility] Repository (1 source) diphenhydrAMINE Drug Allergy 12-11-19 [facility] Repository (1 source) Metoclopramide Drug Allergy 12-11-19 [facility] Repository (1 source) Penicillins Drug allergy (disorder) 12-11-19 [facility] Repository Medications Current Medications Medication Drug Class(es) Dates Sig (Normalized) Sig (Original) albuterol 0.83 mg/ml inhalation solution (20 sources) beta2-Adrenergic Agonist Start: 10-26-2020 take 2.5 mg by inhalation every four hours as needed albuterol (PROVENTIL) 2.5 mg /3 mL (0.083 %) nebulizer solution Use 3 mL via nebulizer every 4 hours as needed for Wheezing/Shortnes s of Breath. Use over 5-15minutes. 50 Vial 5 10/26/2020 Active Start: 04-03-2020 take 2 puff(s) by mo uth every four hours as needed for wheezing albuterol HFA (PROVENTIL HFA, VENTOLIN HFA) 90 mcg/actuation inhaler Indications: Dyspnea and respiratory abnormalities INHALE 2 PUFFS BY MOUTH EVERY FOUR HOURS NEEDED FOR SHORTNESS OF BREATH AND WHEEZING 8.5 g 3 04/03/2020 Active Start: 04-26-2019 take 2 puff(s) by in halation four times daily as needed for wheezing albuterol sulfate HFA 108 (90 Base) MCG/ACT inhaler Inhale 2 puffs into the lungs 4 times daily as needed for Wheezing 1 Inhaler 0 04/26/2019 Active Start: 04-26-2019 albuterol (PRO VENTIL) nebulizer solution 2.5 mg Start: 09-26-2017 take 2 puff(s) by in halation every four hours as needed for wheezing albuterol sulfate HFA 108 (90 Base) MCG/ACT inhaler Inhale 2 puffs into the lungs every 4 hours as needed for Wheezing or Shortness of Breath 1 Inhaler 1 09/26/2017 Active Comment on above: INHALE 2 PUFFS BY MO UTH EVERY FOUR HOURS NEEDED FOR SHORTNESS OF BREATH AND WHEEZING Use 3 mL via nebuliz er every 4 hours as needed for Wheezing/Shortness of Breath. Use over 5-15minutes. aspirin 81 mg delayed release oral tablet (20 sources) Platelet Aggregation Inhibitor, Nonsteroidal Anti-inflammatory Drug Start: 10-09-2018 take 1 tablet by mouth once daily aspirin 81 MG tablet Take 1 tablet by mouth daily 30 tablet 3 10/09/2018 Active Start: 06-14-2018 End: 07-23-2022 take 1 tablet by mouth once daily Aspirin 81 MG tablet Active 81 mg PO DAILY@799June 14, 2018 1:00am [facility] Comment on above: Take 1 tablet by sweta th once daily. Blood Glucose Monitoring Suppl (ACCU-CHEK JANE PLUS) w/Device KIT (3 sources) Start: 01-02-2018 Blood Glucose Monitoring Suppl (ACCU-CHEK JANE PLUS) w/Device KIT Use as directed to check sugars 1 kit 0 01/02/2018 Active Calcium (4 sources) Phosphate Binder, Calcium Start: 10-17-2023 take 1 tablet by mouth twice daily Calcium 500 mg tablet Active 500 mg PO TWICE A DAY October 17, 2023 12:00am calcium carbonate 1250 mg oral tablet (13 sources) Start: 02-13-2023 calcium carbonate (OS-STEPHANIE 500) 500 mg calcium (1,250 mg) tablet 02/13/2023 Active Calcium Carbonate-Vit A And D (Oyster Calcium) Tablet (18 sources) Start: 01-31-2022 take 1 tablet by mouth once daily Calcium Carbonate-Vit A And D (Oyster Calcium) Tablet Active 100 TABLET PO DAILY January 30, 2022 11:00pm Start: 01-31-2022 take 1 tablet by sweta th once daily Calcium Carbonate-Vit A And D (Oyster Calcium) Tablet Active 100 TABLET PO DAILY January 31, 2022 12:00am cholecalciferol 0.05 mg oral capsule (20 sources) Vitamin D Start: 04-18-2024 take 1 capsule by mouth once daily Cholecalciferol (Vitamin D3) 50 mcg (2,000 unit) capsule Active 50 ug PO daily April 18, 2024 1:00am Start: 06-14-2018 End: 11-28-2021 take 3 tablets by mouth once daily Cholecalciferol (Vitamin D3) 1,000 UNIT tablet,chewable Discontinued 3000 U PO DAILY@00 June 14, 2018 1:00am August 27, 2021 11:08am Supplment Start: 06-14-2018 End: 08-27-2021 take 3000 [IU] by mouth once daily Cholecalciferol (Vitamin D3) Discontinued 3000 UNIT PO DAILY@0800 June 14, 2018 1:00am August 27, 2021 11:08am Comment on above: Take 3 tablets by [facility] once daily. ciprofloxacin 500 mg oral tablet (20 sources) Quinolone Antimicrobial Start: 11-07-19 take 1 tablet by mouth twice daily Ciprofloxacin Hcl (Cipro) 500 mg tablet Active 500 MG PO TWICE A DAY November 06, 2021 12:58pm Start: 02-19-2021 End: 03-03-2021 take 1 tablet by mouth twice daily Ciprofloxacin Hcl (Cipro) 500 mg tablet Discontinued 500 mg PO TWICE A DAY 14 February 19, 2021 12:00am March 03, 2021 2:42pm Start: 06-14-2018 End: 06-19-2018 take 1 tablet by mouth every twelve hours Ciprofloxacin Hcl 500 MG tablet Discontinued 500 mg PO Q12H June 14, 2018 1:00am June 19, 2018 9:50pm UTI citalopram 20 mg oral tablet (20 sources) Serotonin Reuptake Inhibitor Start: 02-13-2023 citalopram (CELEXA) 20 mg tablet 02/13/2023 Active Start: 08-27-2021 take 1 tablet by [facility] once daily Citalopram (Celexa) 10 mg tablet Active 10 MG PO DAILY August 27, 2021 11:10am Start: 08-27-2021 take 2 tablets by [facility] once daily Citalopram (Celexa) 10 mg tablet Active 20 mg PO DAILY August 27, 2021 12:00am clobetasol propionate 0.0005 mg/mg topical gel (4 sources) Corticosteroid Start: 07-02-2024 Clobetasol Pro pionate 0.05 % gel Apply to affected area two times a day. 60 g 1 07/02/2024 Active diclofenac sodium 0.01 mg/mg topical gel (17 sources) Nonsteroidal Anti-inflammatory Drug Start: 11-25-2020 diclofenac (VOLTA CHRISTEL ARTHRITIS PAIN) 1 % topical gel Apply 2 g to affected area four times daily. Use as needed 100 g 11/25/2020 Active Comment on above: Apply 2 g to affecte d area four times daily. Use as needed docusate sodium 100 mg oral capsule (20 sources) Start: 06-16-2023 Docusate Sodiu m 100 mg capsule Active 100 mg PO NEEDED as needed for constipation June 16, 2023 1:00am Start: 01-31-2022 End: 04-12-2023 take 100 mg by mouth once daily docusate sodium 100 mg Discontinued 100 mg PO DAILY January 31, 2022 12:00am April 12, 2023 2:13pm Start: 01-31-2022 docusate sodiu m Active 100 MG DAILY January 30, 2022 11:00pm Start: 01-31-2022 docusate sodiu m Active 100 MG DAILY January 31, 2022 12:00am Start: 02-23-2021 End: 08-27-2021 take 1 capsule by mouth twice daily Docusate Sodium 100 mg Capsule Discontinued 100 mg PO TWICE A DAY February 23, 2021 12:00am August 27, 2021 11:09am CONSTIPATION Start: 10-09-2018 take 1 capsule by mo uth twice daily docusate sodium (COLACE) 100 MG capsule Take 1 capsule by mouth 2 times daily 60 capsule 3 10/09/2018 Active Start: 06-14-2018 End: 06-19-2018 take 1 capsule by mouth twice daily Docusate Sodium (Colace) 100 MG capsule Discontinued 100 mg PO TWICE A DAY June 14, 2018 1:00am June 19, 2018 9:52pm Stool softener Comment on above: Take 1 capsule by mo uth twice daily. Elastic Bandages & Supports (WRIST BRACE/LEFT MEDIUM) MISC (3 sources) Start: 02-02-2015 Elastic Bandages & Supports (WRIST BRACE/LEFT MEDIUM) MISC Indications: Bilateral carpal tunnel syndrome Use as needed 1 each 0 02/02/2015 Active Evolocumab (Repatha Syringe) 140 mg/mL syringe (1 source) Start: 12-10-2024 Evolocumab (Repatha Syringe) 140 mg/mL syringe Active 140 mg SC every 2 weeks 06 10December 10, 2024 12:00am famotidine 40 mg oral tablet (20 sources) Histamine-2 Receptor Antagonist Start: 07-27-2022 take 1 tablet by mouth once daily Famotidine 40 mg Tablet Active 40 mg PO DAILY July 27, 2022 1:00am Start: 09-02-2021 famotidine Act hieu 40 MG DAILY September 02, 2021 9:10am Start: 09-02-2021 End: 04-21-2022 famotidine 40 mg tablet Disc ontinued 40 mg DAILY September 02, 2021 12:00am April 21, 2022 4:27pm Start: 09-02-2021 End: 04-21-2022 famotidine Discontinued 40 M G DAILY September 02, 2021 12:00am April 21, 2022 4:27pm Start: 09-02-2021 End: 04-21-2022 famotidine Discontinued 40 M G DAILY September 01, 2021 11:00pm April 21, 2022 3:27pm Start: 09-02-2021 famotidine Act hieu 40 MG DAILY September 01, 2021 11:00pm Start: 09-02-2021 famotidine Act hieu 40 MG DAILY September 02, 2021 12:00am ferrous fumarate 325 mg oral tablet (4 sources) Start: 03-06-2024 take 1 tablet by mouth once daily Ferrous Fumarate 325 mg (106 mg iron) tablet Active 325 mg PO daily March 06, 2024 12:00am fexofenadine hydrochloride 180 mg oral tablet (17 sources) Histamine-1 Receptor Antagonist Start: 03-10-2021 take 1 tablet by mouth once daily fexofenadine (LATANYA ALLERGY) 180 mg tablet Take 1 tablet by mouth once daily. 30 tablet 5 03/10/2021 Active Comment on above: Take 1 tablet by sweta once daily. 12 hr guaiFENesin 600 mg extended release oral tablet (3 sources) take 2 tablets by mouth twice daily, then take 1 tablet by mouth guaiFENesin (MUCINEX) 600 MG extended release tablet Take 1,200 mg by mouth 2 times daily 0 Active Handicap Placard MISC (3 sources) Start: 03-02-2015 Handicap Placard MISC Indications: Cerebrovascular disease by Does not apply route Duration: 5 years; dx: s/p stroke, left leg weakness 1 each 0 03/02/2015 Active 3 ml insulin glargine 100 unt/ml pen injector (20 sources) Insulin Analog Start: 07-15-2021 Insulin Glargine (Lantus Solostar U-100 Insulin) 100 unit/mL (3 mL) insulin pen Active 50 U SC AT BEDTIME July 15, 2021 3:42pm Start: 07-15-2021 Insulin Glargi ne (Lantus Solostar U-100 Insulin) 100 unit/mL (3 mL) insulin pen Active 40 UNIT SC AT BEDTIME July 15, 2021 3:42pm Start: 06-15-2021 insulin glargi ne (LANTUS SOLOSTAR, BASAGLAR KWIKPEN) 100 unit/mL (3 mL) Indications: Type 2 diabetes mellitus with diabetic neuropathy, with long-term current use of insulin (HCC) Inject 30 Units subcutaneously daily at bedtime. Adjust dose as directed 10 Pen 3 06/15/2021 Active Start: 06-15-2021 insulin glargi ne (LANTUS SOLOSTAR, BASAGLAR KWIKPEN) 100 unit/mL (3 mL) Indications: Type 2 diabetes mellitus with diabetic neuropathy, with long-term current use of insulin (HCC) Inject 30 Units subcutaneously daily at bedtime. Adjust dose as directed 10 Pen 3 06/15/2021 Active Start: 03-03-2021 End: 07-15-2021 Insulin Glargine (Lantus Shirley ostar U-100 Insulin) 100 unit/mL (3 mL) Insulin Pen Discontinued 15 U SC AT BEDTIME 0 0 March 03, 2021 12:00am July 15, 2021 3:43pm Start: 07-23-2019 End: 03-03-2021 Insulin Glargine 100 UNITS/M L insulin pen Discontinued 22 U SC AT BEDTIME July 23, 2019 9:49pm March 03, 2021 2:44pm Start: 07-23-2019 End: 03-03-2021 Insulin Glargine Discontinue d 22 UNITS SC AT BEDTIME July 23, 2019 9:49pm March 03, 2021 2:44pm Start: 03-12-2019 LANTUS SOLOSTA R 100 UNIT/ML injection pen Indications: 5 units bid Inject 20 Units into the skin nightly Indications: 5 units bid 5 pen 3 03/12/2019 Active Start: 06-19-2018 End: 07-23-2019 Insulin Glargine 100 UNITS/M L insulin pen Discontinued 5 U SC TWICE A DAY 1 0 June 19, 2018 1:00am July 23, 2019 9:49pm Start: 06-19-2018 End: 07-23-2019 Insulin Glargine Discontinue d 5 UNITS SC TWICE A DAY 1 June 19, 2018 1:00am July 23, 2019 9:49pm Start: 06-14-2018 End: 06-19-2018 Insulin Glargine (Lantus (Bk c)) 100 UNITS/ML Pen Discontinued 16 U SC DAILY@599June 14, 2018 1:00am June 19, 2018 9:52pm Blood Sugar Start: 06-14-2018 End: 06-19-2018 Insulin Glargine (Lantus (Bk c)) 100 UNITS/ML Pen Discontinued 12 U SC DAILY@2199June 14, 2018 1:00am June 19, 2018 9:52pm Blood Sugar Start: 06-14-2018 End: 06-19-2018 Insulin Glargine (Lantus (Bk c)) 100 UNITS/ML Pen Discontinued 16 UNITS SC DAILY@599June 14, 2018 1:00am June 19, 2018 9:52pm Start: 06-14-2018 End: 06-19-2018 Insulin Glargine (Lantus (Bk c)) 100 UNITS/ML Pen Discontinued 12 UNITS SC DAILY@2199June 14, 2018 1:00am June 19, 2018 9:52pm Comment on above: Inject 30 Units subc utaneously daily at bedtime. Adjust dose as directed 3 ml insulin lispro 100 unt/ml pen injector (20 sources) Insulin Analog Start: 07-23-2019 Insulin Lispro Active 10 UNIT SC 3 TIMES DAILY WITH MEALS July 23, 2019 9:49pm SLIDING SCALE Start: 06-19-2018 End: 07-23-2019 Insulin Lispro 100 UNIT/ML insulin pen Discontinued 3 U SC 3 TIMES DAILY WITH MEALS 1 0 June 19, 2018 1:00am July 23, 2019 9:49pm Start: 06-14-2018 End: 06-19-2018 inject 9 [IU] by subcutaneous injection at breakfast Insulin Lispro (Humalog Kwikpen) 100 UNIT/ML Ml Discontinued 9 U SQ WITH BREAKFAST June 14, 2018 1:00am June 19, 2018 9:52pm Blood Sugar Start: 06-14-2018 End: 06-19-2018 inject 7 [IU] by subcutaneous injection at lunch Insulin Lispro (Humalog Kwikpen) 100 UNIT/ML Ml Discontinued 7 U SQ WITH LUNCH June 14, 2018 1:00am June 19, 2018 9:52pm Blood sugar 3 ml insulin aspart, human 100 unt/ml pen injector (20 sources) Insulin Analog Start: 09-16-2021 Insulin Aspart U-100 (Novolog Flexpen U-100 Insulin) 100 unit/mL (3 mL) insulin pen Active 17 U SC THREE TIMES A DAY September 16, 2021 12:00am Start: 09-16-2021 Insulin Aspart U-100 (Novolog Flexpen U-100 Insulin) 100 unit/mL (3 mL) insulin pen Active 13 UNIT SC THREE TIMES A DAY September 16, 2021 12:00am Start: 06-15-2021 inject 10 [IU] by shepherd bcutaneous injection three times daily before mealtime insulin aspart U-100 (NOVOLOG FLEXPEN U-100 INSULIN) 100 unit/mL (3 mL) Inject 10 Units subcutaneously three times daily before meals. If Blood Glucose (mg/dL) is: Less than 110 Give 0 units 111-150 Give 0 units 151-200 Give 1 unit 201-250 Give 2 units 251-300 Give 3 units 301-350 Give 4 units 351-400 Give 5 units Greater than 400 Give 5 units and Notify Provider Notify provider if 2 consecutive blood glucose values in the previous 24 hours are greater than 250 mg/mL and there have been no changes to the insulin regimen in the previous 24 hours. 5 Pen 5 06/15/2021 Active Start: 03-12-2019 insulin aspart (NOVOLOG FLEXPEN) 100 UNIT/ML injection pen Indications: Diabetes mellitus type 2 in nonobese (HCC) Inject 10 Units into the skin 3 times daily (before meals) 5 pen 3 03/12/2019 Active Comment on above: Inject 10 Units subc utaneously three times daily before meals. If Blood Glucose (mg/dL) is: Less than 110 Give 0 units 111-150 Give 0 units 151-200 Give 1 unit 201-250 Give 2 units 251-300 Give 3 units 301-350 Give 4 units 351-400 Give 5 units Greater than 400 Give 5 units and Notify Provider Notify provider if 2 consecutive blood glucose values in the previous 24 hours are greater than 250 mg/mL and there have been no changes to the insulin regimen in the previous 24 hours. inulin 200 mg / lactobacillus rhamnosus gg [id number] unt oral capsule (3 sources) Start: 04-09-20 19 take 1 capsule by mouth once daily lactobacillus (CULTURELLE) CAPS capsule TAKE 1 CAPSULE BY MOUTH DAILY 28 capsule 3 04/09/2019 Active Start: 10-09-2018 take 1 capsule by mo uth once daily lactobacillus (CULTURELLE) CAPS capsule Take 1 capsule by mouth daily 30 capsule 3 10/09/2018 Active isopropyl alcohol 0.7 ml/ml medicated pad (20 sources) Start: 07-07-2020 alcohol swabs Apply 1 application to affected area as needed. 150 Each 11 07/07/2020 Active Start: 04-16-2015 Alcohol Swabs (B-D SINGLE USE SWABS REGULAR) PADS Use a directed for checking sugars 270 each 3 04/16/2015 Active Comment on above: Apply 1 application to affected area as needed. Lactobac no.41/Bifidobact no.7 (PROBIOTIC-10 ORAL) (17 sources) Lactobac no.41/B ifidobact no.7 (PROBIOTIC-10 ORAL) Take by mouth. Active Lactobac no.41/B ifidobact no.7 (PROBIOTIC-10 ORAL) Take by mouth. 0 Active Comment on above: Take by mouth. LACTOBACILLUS RHAMNOSUS, GG, PO (3 sources) LACTOBACILLUS RH AMNOSUS, GG, PO Take by mouth 0 Active Lancing Device misc (17 sources) Start: 07-03-2020 Lancing Device misc Indications: Type 2 diabetes mellitus with diabetic neuropathy, with long-term current use of insulin (HCC) 1 Each four times daily. Test blood sugar(s) 4 times daily. Dx: Type 2 DM - Uncontrolled E11.65 Insulin: Yes Send to pt what ever meter and supplies are covered. 1 Each 07/03/2020 Active Start: 07-03-2020 Lancing Device misc Indications: Type 2 diabetes mellitus with diabetic neuropathy, with long-term current use of insulin (HCC) 1 Each four times daily. Test blood sugar(s) 4 times daily. Dx: Type 2 DM - Uncontrolled E11.65 Insulin: Yes Send to pt what ever meter and supplies are covered. 1 Each 0 07/03/2020 Active Comment on above: 1 Each four times da maurizio. Test blood sugar(s) 4 times daily. Dx: Type 2 DM - Uncontrolled E11.65 Insulin: Yes Send to pt what ever meter and supplies are covered. levocetirizine dihydrochloride 5 mg oral tablet (18 sources) Histamine-1 Receptor Antagonist Start: 2022 take 1 tablet by mouth once daily Levocetirizine 5 mg tablet Active 5 mg PO DAILY June 16, 2023 1:00am Comment on above: 5 mg. linaclotide 0.145 mg oral capsule (2 sources) Guanylate Cyclase-C Agonist Start: 2024 take 1 capsule by mouth once daily in the morning Linaclotide (Linzess) 145 mcg capsule Active 145 ug PO EVERY MORNING 30 October 03, 2024 12:00am magnesium citrate 58.2 mg/ml oral solution (2 sources) Start: 2021 Magnesium Citrate Active 300 ML PO DAILY November 06, 2021 12:58pm Drink half a bottle. If no results and 4 hours drink the remainder of the bottle. methylPREDNISolone 4 mg oral tablet (1 source) Corticosteroid Start: 2018 methylPREDNISolone (MEDROL DOSEPACK) 4 MG tablet Indications: Acute non-recurrent maxillary sinusitis Take by mouth. 1 kit 0 05/01/2019 Active metoprolol tartrate 25 mg oral tablet (20 sources) beta-Adrenergic Rozina Start: 2024 Metoprolol Tartrate 25 mg tablet Active 12.5 mg PO TWICE A DAY December 10, 2024 12:00am Start: 05-14-2024 End: 06-13-2024 take 1 tablet by mouth once daily Metoprolol Succinate 25 mg tablet extended release 24 hr Discontinued 25 mg PO daily May 14, 2024 1:00am June 13, 2024 4:13pm Start: 10-11-2022 End: 04-23-2024 Metoprolol Tartrate 25 mg ta blet Discontinued 12.5 mg PO TWICE A DAY 04 05September 07, 2023 4:17pm April 23, 2024 4:17pm Start: 10-11-2022 take 12.5 mg by mout h twice daily Metoprolol Tartrate Active 12.5 MG PO TWICE A DAY October 11, 2022 1:54pm Start: 09-24-2021 End: 10-11-2022 take 1 tablet by mouth twice daily Metoprolol Tartrate 25 mg tablet Discontinued 25 mg PO TWICE A DAY 60 October 15, 2021 3:26pm October 11, 2022 1:55pm This is a dose increase Start: 05-06-2021 take 0.5 tablet by m outh every twelve hours metoprolol tartrate, short acting, (LOPRESSOR) 25 mg tablet Take 0.5 tablets by mouth every 12 hours. 90 tablet 1 05/06/2021 Active Start: 07-10-2019 End: 09-24-2021 Metoprolol Tartrate 25 mg ta blet Discontinued 12.5 mg PO TWICE A DAY July 10, 2019 5:07pm September 24, 2021 3:50pm Blood pressure Start: 07-10-2019 End: 09-24-2021 take 12.5 mg by mouth twice daily Metoprolol Tartrate Discontinued 12.5 MG PO TWICE A DAY July 10, 2019 5:07pm September 24, 2021 3:50pm Start: 03-12-2019 take 0.5 tablet by m outh twice daily metoprolol tartrate (LOPRESSOR) 25 MG tablet TAKE 1/2 TABLET BY MOUTH TWICE A DAY 30 tablet 3 03/12/2019 Active Start: 06-14-2018 End: 07-10-2019 take 1 tablet by mouth twice daily Metoprolol Tartrate 25 MG tablet Discontinued 25 mg PO TWICE A DAY 60 June 19, 2018 9:52pm July 10, 2019 5:12pm Blood pressure Comment on above: Take 0.5 tablets by mouth every 12 hours. metroNIDAZOLE 500 mg oral tablet (2 sources) Nitroimidazole Antimicrobial Start: 11-07-19 take 500 mg by mouth every eight hours Metronidazole Active 500 MG PO Q8H 23 12November 06, 2021 12:58pm Misc. Devices (ROLLER WALKER) MISC (3 sources) Misc. Devices (R GUS WALKER) MISC 1 each by Does not apply route daily 0 Active Nebulizer Accessories kit (17 sources) Start: 10-27-19 21 Nebulizer Accessories kit Indications: Chronic bronchitis, unspecified chronic bronchitis type (HCC) , Wheezing Use with home nebulizer for albuterol 1 Each 2 10/26/2020 Active Comment on above: Use with home nebuli zer for albuterol nitroglycerin 0.4 mg sublingual tablet (11 sources) Nitrate Vasodilator Start: 04-12-20 23 Nitroglycerin (Nitrostat) 0.4 mg tablet, sublingual Active 0.4 mg SL every 5 to 15 minutes as needed for chest pain 27 08April 12, 2023 1:00am do not exceed 3 doses per episode Start: 04-12-2023 Nitroglycerin (Nitrostat) 0.4 mg tablet, sublingual Active 0.4 MG SL every 5 to 15 minutes April 12, 2023 1:00am do not exceed 3 doses per episode Start: 10-01-2018 nitroGLYCERIN (NITROSTAT) 0.4 MG SL tablet Indications: Coronary artery disease of [place] artery of [place] heart with stable angina pectoris (HCC) Place 1 tablet under the tongue every 5 minutes for a max of 3 doses 25 tablet 5 10/01/2018 Active Tiotropium-Olodaterol (17 sources) Anticholinergic, beta2-Adrenergic Agonist Start: 10-25-2023 Tiotropium-Olodaterol (Stiolto Respimat) 2.5-2.5 mcg/actuation mist Active 2 NMA INHALATION DAILY October 25, 2023 12:00am Start: 07-10-2023 STIOLTO RESPIM AT 2.5-2.5 mcg/actuation inhale 2 puffs by mouth daily 4 g 11 07/10/2023 Active Start: 02-22-2023 End: 07-10-2023 tiotropium-olodaterol (STIOL TO RESPIMAT) 2.5-2.5 mcg/actuation Inhale 2 Puffs as instructed once daily. 1 Each 5 02/22/2023 07/10/2023 Discontinued Comment on above: Inhale 2 Puffs as in structed once daily. inhale 2 puffs by mo uth daily omeprazole 40 mg delayed release oral capsule (20 sources) Proton Pump Inhibitor Start: 04-21-2022 End: 10-13-2022 take 1 capsule by mouth once daily Omeprazole 40 mg capsule,delayed release(DR/EC) Active 40 mg PO DAILY October 13, 2022 4:34pm Start: 02-11-2021 End: 08-27-2021 take 1 capsule by mouth twice daily Omeprazole 40 mg capsule,delayed release(DR/EC) Discontinued 40 mg PO TWICE A DAY February 23, 2021 12:00am August 27, 2021 11:09am ACID Start: 10-09-2018 take 2 tablets by [facility] once daily omeprazole 20 MG EC tablet Take 2 tablets by mouth daily 30 tablet 3 10/09/2018 Active Comment on above: Take 1 capsule by [facility] twice daily. ondansetron 4 mg oral tablet (20 sources) Serotonin-3 Receptor Antagonist Start: 1 take 1 tablet by mouth every eight hours as needed ondansetron (ZOFRAN) 4 mg tablet Take 1 tablet by mouth every 8 hours as needed. 24 tablet 1 03/26/2021 Active Start: 10-09-2018 take 1 tablet by sweta every eight hours as needed for nausea ondansetron (ZOFRAN) 4 MG tablet Take 1 tablet by mouth every 8 hours as needed for Nausea or Vomiting 90 tablet 3 10/09/2018 Active Start: 06-19-2018 End: 07-10-2020 take 1 tablet by mouth every six hours as needed for nausea Ondansetron 4 MG tablet Discontinued 4 mg PO EVERY 6 HOURS NEEDED as needed for NAUSEA 30 0 June 19, 2018 1:00am July 10, 2020 4:34pm Comment on above: Take 1 tablet by [facility] every 8 hours as needed. 24 hr oxybutynin chloride 10 mg extended release oral tablet (20 sources) Cholinergic Muscarinic Antagonist Start: 03-19-2020 take 1 tablet by mouth once daily oxybutynin ER (DITROPAN XL) 10 mg 24 hr tablet Take 10 mg by mouth once daily. 03/19/2020 Active Start: 04-10-2019 take 1 tablet by sweta once daily oxybutynin (DITROPAN) 5 MG tablet TAKE 1 TABLET BY MOUTH EVERY DAY 30 tablet 3 04/10/2019 Active Start: 01-07-2019 take 1 tablet by sweta once daily oxybutynin (DITROPAN) 5 MG tablet TAKE 1 TABLET BY MOUTH EVERY DAY 30 tablet 0 01/07/2019 Active Comment on above: Take 10 mg by mouth once daily. petrolatum 0.935 mg/mg topical ointment (5 sources) Start: 09-26-2023 vitamin A and D ointment Apply to affected area as needed. Apply each time pull up is changed to vulvar area. 113 g 11 09/26/2023 Active polyethylene glycol 3350 61663 mg powder for oral solution (20 sources) Osmotic Laxative Start: 10-09-2019 polyethylene glycol 3350 (MIRALAX) 17 gram/dose powder Take 17 g by mouth once daily. 1 Bottle 5 10/09/2019 Active Start: 08-03-2017 End: 07-10-2019 take 17 g by mouth once daily Polyethylene Glycol 3350 17 GM packet Discontinued 17 g PO DAILY@0800 30 0 June 19, 2018 1:00am July 10, 2019 5:11pm Comment on above: Take 17 g by mouth o nce daily. pravastatin sodium 40 mg oral tablet (20 sources) HMG-CoA Reductase Inhibitor Start: take 1 tablet by mouth once daily at bedtime pravastatin (PRAVACHOL) 40 mg tablet Indications: Mixed hyperlipidemia Take 1 tablet by mouth daily at bedtime. 90 tablet 3 10/16/2021 Active Start: 10-26-2020 End: 10-15-2021 take 40 mg by mouth at bedtime Pravastatin Active 40 M G PO AT BEDTIME February 23, 2021 12:00am Start: 07-10-2019 End: 07-10-2020 take 1 tablet by mouth at bedtime Pravastatin 40 mg tablet Discontinued 40 mg PO AT BEDTIME July 10, 2019 1:00am July 10, 2020 4:32pm Start: 10-21-2018 take 1 tablet by sweta th once daily pravastatin (PRAVACHOL) 40 MG tablet Take 1 tablet by mouth daily 90 tablet 1 10/21/2018 Active Comment on above: Take 1 tablet by sweta th daily at bedtime. predniSONE 10 mg oral tablet (1 source) Start: End: take 4 tablets by mouth once daily predniSONE (DELTASONE) 10 MG tablet Take 4 tablets by mouth daily for 5 days 20 tablet 0 04/04/2019 04/09/2019 Active promethazine hydrochloride 25 mg oral tablet (3 sources) Phenothiazine take 1 tablet by mouth every six hours as needed for nausea promethazine (PHENERGAN) 25 MG tablet Take 25 mg by mouth every 6 hours as needed for Nausea 0 Active sodium chloride flush 0.9 % injection 3 mL (1 source) Start: sodium chloride flush 0.9 % injection 3 mL 10 actuat tiotropium 0.0025 mg/actuat inhalation spray (15 sources) Anticholinergic Start: 023 take 2 puff(s) by inhalation once daily tiotropium bromide (SPIRIVA RESPIMAT) 2.5 mcg/actuation inhaler Inhale 2 Puffs as instructed once daily. 1 Each 03/02/2023 Active Start: 11-02-2017 take 1 capsule by in halation once daily tiotropium (SPIRIVA) 18 MCG inhalation capsule Inhale 1 capsule into the lungs daily 90 capsule 3 11/02/2017 Active Comment on above: Inhale 2 Puffs as in structed once daily. traMADol hydrochloride 50 mg oral tablet (5 sources) Opioid Agonist Start: 022 take 50 mg by mouth every six hours Tramadol Active 50 MG PO EVERY 6 HOURS August 27, 2021 12:00am 7 actuat umeclidinium 0.0625 mg/actuat dry powder inhaler (13 sources) Anticholinergic Start: 023 take 1 puff(s) by inhalation once daily umeclidinium (INCRUSE ELLIPTA) 62.5 mcg/actuation inhaler Indications: COPD, mild (HCC) Inhale 1 Puff as instructed once daily. 1 Each 02/21/2023 Active Comment on above: Inhale 1 Puff as ins tructed once daily. vitamin d 1000 unt oral tablet (3 sources) Start: 019 take 3 tablets by mouth once daily vitamin D (CHOLECALCIFEROL) 1000 UNIT TABS tablet TAKE 3 TABLETS BY MOUTH DAILY 90 tablet 3 03/12/2019 Active Completed/Discontinued Medications Medication Drug Class(es) Dates Sig (Normalized) Sig (Original) acetaminophen 500 mg oral tablet (20 sources) Start: 06-19-2018 End: 07-10-2019 take 2 tablets by mouth every six hours as needed for pain Acetaminophen 500 MG tablet Discontinued 1000 mg PO EVERY 6 HOURS NEEDED as needed for Mild Pain () 0 June 19, 2018 1:00am July 10, 2019 5:25pm Start: 06-19-2018 End: 07-10-2019 take 1000 mg by mouth every six hours as needed Acetaminophen Discontinued 1000 MG PO EVERY 6 HOURS NEEDED June 19, 2018 1:00am July 10, 2019 5:25pm Start: 06-14-2018 End: 06-19-2018 Acetaminophen 325 MG tablet Discontinued 1 - 2 {tbl} PO EVERY 6 HOURS NEEDED as needed for Pain June 14, 2018 1:00am June 19, 2018 9:50pm acetaminophen 325 mg / HYDROcodone bitartrate 5 mg oral tablet (20 sources) Opioid Agonist Start: 07-24-2019 End: 07-26-2019 Hydrocodone-Acetaminophen 1 TABLET tablet Discontinued 1 {tbl} PO EVERY 4 HOURS NEEDED as needed for Pain 14 2 0 July 24, 2019 July 25, 2019 1:00am July 26, 2019 1:09am Abdominal pain Unspecified abdominal pain Start: 07-24-2019 End: 07-26-2019 take 1 tablet by mouth every four hours as needed Hydrocodone-Acetaminophen Discontinued 1 TABLET PO EVERY 4 HOURS NEEDED 14 2 July 24, 2019 July 26, 2019 1:09am acetaminophen 325 mg / oxyCODONE hydrochloride 5 mg oral tablet (20 sources) Opioid Agonist Start: 06-14-2018 End: 06-19-2018 Oxycodone-Acetaminophen 1 TABLET tablet Discontinued 1 - 2 {tbl} PO EVERY 6 HOURS NEEDED as needed for PAIN June 14, 2018 11:47pm June 19, 2018 9:51pm Start: 06-14-2018 End: 06-19-2018 take 1 tablet by mouth every six hours as needed Oxycodone-Acetaminophen Discontinued 1 - 2 TABLET PO EVERY 6 HOURS NEEDED June 14, 2018 11:47pm June 19, 2018 9:51pm Start: 09-13-2013 End: 06-14-2018 Oxycodone-Acetaminophen 1 TA BLET tablet Discontinued 1 - 2 {tbl} PO EVERY 4 HOURS NEEDED as needed for PAIN 20 0 September 13, 2013 12:00am June 14, 2018 11:48pm Start: 09-13-2013 End: 06-14-2018 take 1 tablet by mouth every four hours as needed Oxycodone-Acetaminophen Discontinued 1 - 2 TABLET PO EVERY 4 HOURS NEEDED September 13, 2013 12:00am June 14, 2018 11:48pm amitriptyline hydrochloride 10 mg oral tablet (2 sources) Tricyclic Antidepressant Start: 10-03-2024 End: 12-10-2024 take 1 tablet by mouth once daily Amitriptyline 10 mg tablet Discontinued 10 mg PO daily 30 October 03, 2024 12:00am December 10, 2024 2:06pm amLODIPine 10 mg oral tablet (20 sources) Dihydropyridine Calcium Channel Rozina Start: 04-21-2022 End: 07-19-2024 take 1 tablet by mouth once daily Amlodipine 10 mg tablet Discontinued 0 .ROUTE .COMPLEX 28 August 09, 2023 11:00am July 19, 2024 4:48pm TAKE 1 TABLET BY MOUTH DAILY Start: 01-31-2022 End: 04-21-2022 Amlodipine 10 mg tablet Disc ontinued 100 mg PO DAILY January 31, 2022 8:56am April 21, 2022 4:01pm Start: 01-31-2022 End: 04-21-2022 take 100 mg by mouth once daily Amlodipine Discontinue d 100 MG PO DAILY January 31, 2022 8:56am April 21, 2022 4:01pm Start: 07-15-2021 End: 01-31-2022 take 1 tablet by mouth once daily Amlodipine 10 mg tablet Discontinued 10 mg PO DAILY 04 05October 15, 2021 3:27pm January 31, 2022 8:56am Start: 03-03-2021 End: 07-15-2021 take 1 tablet by mouth once daily Amlodipine 5 mg Tablet Discontinued 5 mg PO DAILY March 03, 2021 12:00am July 15, 2021 4:12pm Comment on above: Take 5 mg by mouth o nce daily. atorvastatin 40 mg oral tablet (20 sources) HMG-CoA Reductase Inhibitor Start: 06-14-19 End: 07-10-19 take 1 tablet by mouth at bedtime Atorvastatin 40 MG tablet Discontinued 40 mg PO AT BEDTIME June 19, 2018 9:52pm July 10, 2019 5:10pm Cholestrol budesonide 3 mg delayed release oral capsule (8 sources) Corticosteroid Start: 03-30-20 End: 04-12-20 take 2 capsules by mouth once daily Budesonide 3 mg capsule,delayed,ext end.release Discontinued 6 mg PO DAILY March 30, 2023 12:00am April 12, 2023 2:13pm Start: 03-30-2023 End: 04-12-2023 take 6 mg by mouth once daily Budesonide Discontinued 6 MG PO DAILY March 30, 2023 12:00am April 12, 2023 2:13pm busPIRone hydrochloride 15 mg oral tablet (20 sources) Start: 07-10-2020 End: 08-27-2021 take 1 tablet by mouth twice daily Buspirone 15 mg tablet Discontinued 15 mg PO TWICE A DAY July 10, 2020 1:00am August 27, 2021 11:08am On Hold: Resume on 03/17/21. Hold until kidney function returns to baseline Start: 05-01-2019 take 7.5 mg by mouth twice daily, then take 0.5 tablet by mouth once daily busPIRone (BUSPAR) 15 MG tablet Indications: half a tablet daily Take 7.5 mg by mouth 2 times daily Indications: half a tablet daily 30 tablet 3 05/01/2019 Active Start: 04-01-2019 take 7.5 mg by mouth twice daily, then take 0.5 tablet by mouth once daily busPIRone (BUSPAR) 15 MG tablet Indications: half a tablet daily Take 7.5 mg by mouth 2 times daily Indications: half a tablet daily 30 tablet 3 04/01/2019 Active Start: 06-14-2018 End: 07-10-2019 take 7.5 mg by mouth once daily Buspirone 15 MG tablet Discontinued 7.5 mg PO DAILY June 14, 2018 1:00am July 10, 2019 5:25pm Mood Start: 06-14-2018 End: 07-10-2019 take 7.5 mg by mouth once daily Buspirone Discontinued 7.5 MG PO DAILY June 14, 2018 1:00am July 10, 2019 5:25pm Calcium Carbonate-Vit A And D Tablet (4 sources) Start: 01-31-2022 End: 12-10-2024 Calcium Carbonate-Vit A And D Tablet Discontinued 1 {tbl} PO DAILY January 31, 2022 12:00am December 10, 2024 2:05pm Start: 01-31-2022 Calcium Carbon ate-Vit A And D Tablet Active 1 {tbl} PO DAILY January 31, 2022 12:00am cephalexin 500 mg oral capsule (20 sources) Cephalosporin Antibacterial Start: 07-15-2021 End: 08-27-2021 take 1 capsule by mouth every six hours Cephalexin 500 mg capsule Discontinued 500 mg PO EVERY 6 HOURS 28 7 0 July 15, 2021 1:00am August 27, 2021 11:08am Start: 05-01-2019 End: 05-08-2019 take 1 capsule by mouth twice daily cephALEXin (KEFLEX) 500 MG capsule Indications: Acute non-recurrent maxillary sinusitis Take 1 capsule by mouth 2 times daily for 7 days 14 capsule 0 05/01/2019 05/08/2019 Active clopidogrel 75 mg oral tablet (20 sources) [id number] Platelet Inhibitor Start: 06-14-2018 End: 08-27-2021 take 1 tablet by mouth once daily Clopidogrel 75 MG tablet Discontinued 75 mg PO DAILY 30 0 June 19, 2018 9:52pm August 27, 2021 11:08am Blood thinner Comment on above: Take 1 tablet by sweta th once daily. cyclobenzaprine hydrochloride 5 mg oral tablet (20 sources) Muscle Relaxant Start: 07-15-2021 End: 08-27-2021 take 1 tablet by mouth at bedtime Cyclobenzaprine 5 mg tablet Discontinued 5 mg PO AT BEDTIME July 15, 2021 1:00am August 27, 2021 11:09am Start: 04-09-2021 take 1 tablet by sweta th every twelve hours as needed cyclobenzaprine (FLEXERIL) 10 mg tablet Take 1 tablet by mouth twice daily as needed for muscle spasm. 60 tablet 2 04/09/2021 Active Comment on above: Take 1 tablet by sweta th twice daily as needed for muscle spasm. docusate sodium 50 mg / sennosides, nursing home 8.6 mg oral tablet (20 sources) Start: 06-19-2018 End: 07-10-2019 Sennosides-Docusate Sodium 1 TABLET tablet Discontinued 1 {tbl} PO BID@0800,1800 60 0 June 19, 2018 1:00am July 10, 2019 5:11pm Start: 06-19-2018 End: 07-10-2019 take 1 tablet by mouth twice daily Sennosides-Docusate Sodium Discontinued 1 TABLET PO BID@0800,1800 60 June 19, 2018 1:00am July 10, 2019 5:11pm doxepin hydrochloride 10 mg oral capsule (15 sources) Tricyclic Antidepressant Start: 10-13-2022 End: 04-12-2023 take 1 capsule by mouth at bedtime Doxepin 10 mg Capsule Discontinued 10 mg PO AT BEDTIME October 13, 2022 12:00am April 12, 2023 2:13pm doxycycline hyclate 100 mg oral capsule (20 sources) Tetracycline-class Drug Start: 03-30-2023 End: 04-12-2023 take 1 capsule by mouth twice daily Doxycycline Hyclate 100 mg capsule Discontinued 100 mg PO TWICE A DAY 60 March 30, 2023 12:00am April 12, 2023 2:13pm Start: 02-13-2021 End: 02-19-2021 take 1 capsule by mouth twice daily Doxycycline Monohydrate 100 MG capsule Discontinued 100 mg PO TWICE A DAY 20 February 13, 2021 12:00am February 19, 2021 9:01am Start: 10-26-2020 take 1 tablet by sweta th twice daily doxycycline (VIBRA-TABS) 100 mg tablet Take 1 tablet by mouth twice daily. Extend antibiotic if not resolved with 10 day course 20 tablet 1 10/26/2020 Active Start: 04-04-2019 End: 04-18-2019 take 1 tablet by mouth twice daily doxycycline monohydrate (ADOXA) 100 MG tablet Take 1 tablet by mouth 2 times daily for 14 days 14 tablet 0 04/04/2019 04/18/2019 Active Comment on above: Take 1 tablet by sweta th twice daily. Extend antibiotic if not resolved with 10 day course 1 ml evolocumab 140 mg/ml auto-injector (3 sources) [id number] Inhibitor Start: 5 End: 5 Evolocumab (Repatha Sureclick) 140 mg/mL pen injector Discontinued 140 mg SC every 2 weeks 2 September 04, 2024 12:00am December 10, 2024 2:06pm Atherosclerosis of coronary artery of [place] heart without angina pectoris History of coronary artery bypass surgery Hyperlipidemia Statin intolerance Atherosclerotic heart disease of [place] coronary artery without angina pectoris Presence of aortocoronary bypass graft Hyperlipidemia, unspecified Other specified health status ezetimibe 10 mg oral tablet (4 sources) Dietary Cholesterol Absorption Inhibitor Start: 4 End: 5 take 1 tablet by mouth once daily Ezetimibe (Zetia) 10 mg tablet Discontinued 10 mg PO daily 30 April 23, 2024 1:00am December 10, 2024 2:07pm lisinopril 5 mg oral tablet (20 sources) Angiotensin Converting Enzyme Inhibitor Start: 2 take 10 mg by mouth once daily Lisinopril Active 10 MG PO DAILY April 27, 2022 2:35pm Start: 04-22-2022 End: 04-22-2022 take 2 tablets by mouth once daily Lisinopril 5 mg tablet Discontinued 10 mg PO DAILY April 22, 2022 1:23pm April 22, 2022 1:40pm Start: 04-22-2022 End: 04-22-2022 take 10 mg by mouth once daily Lisinopril Discontinued 10 MG PO DAILY April 22, 2022 1:23pm April 22, 2022 1:40pm Start: 04-21-2022 End: 08-08-2024 take 1 tablet by mouth once daily Lisinopril 5 mg tablet Discontinued 5 mg PO DAILY September 07, 2023 4:17pm August 08, 2024 12:45pm Start: 01-31-2022 End: 04-21-2022 take 1 tablet by mouth once daily Lisinopril 2.5 mg Tablet Discontinued 2.5 mg PO DAILY January 31, 2022 12:00am April 21, 2022 4:26pm Comment on above: 5 mg. losartan potassium 50 mg oral tablet (20 sources) Angiotensin 2 Receptor Rozina Start: End: take 1 tablet by mouth once daily Losartan 50 mg tablet Discontinued 50 mg PO DAILY July 10, 2020 1:00am March 03, 2021 2:43pm Start: 07-10-2019 End: 07-10-2020 take 1 tablet by mouth once daily Losartan 100 mg tablet Discontinued 100 mg PO DAILY July 10, 2019 1:00am July 10, 2020 4:34pm Start: 10-01-2018 take 1 tablet by sweta th once daily losartan (COZAAR) 100 MG tablet Take 1 tablet by mouth daily 30 tablet 5 10/01/2018 Active nitrofurantoin, macrocrystals 25 mg / nitrofurantoin, monohydrate 75 mg oral capsule (20 sources) Nitrofuran Antibacterial Start: 07-19-2022 End: 07-26-2022 take 1 capsule by mouth every twelve hours at mealtime Nitrofurantoin Monohyd/M-Cryst 100 mg capsule Discontinued 1 NMA PO Q12H 14 7 0 July 19, 2022 1:00am July 25, 2022 1:00am July 26, 2022 1:05am administer with a meal/food; swallow whole; do not open, crush, dissolve , or chew Start: 05-01-2019 take 1 capsule by [facility] once daily nitrofurantoin, macrocrystal-monohydrate , (MACROBID) 100 MG capsule Indications: Recurrent UTI Take 1 capsule by mouth daily For prevention of recurrent UTIs 30 capsule 3 05/01/2019 Active Start: 04-01-2019 take 1 capsule by [facility] once daily nitrofurantoin, macrocrystal-monohydrate , (MACROBID) 100 MG capsule Indications: Recurrent UTI Take 1 capsule by mouth daily For prevention of recurrent UTIs 30 capsule 3 04/01/2019 Active oxyCODONE hydrochloride 5 mg oral tablet (20 sources) Opioid Agonist Start: 06-19-2018 End: 06-24-2018 take 1 tablet by mouth every six hours as needed for pain Oxycodone 5 MG tablet Discontinued 5 mg PO EVERY 6 HOURS NEEDED as needed for Moderate Pain (4-5/10) 30 5 0 June 19, 2018 1:00am June 23, 2018 1:00am June 24, 2018 1:09am Non-ST elevation myocardial infarction (NSTEMI) Non-ST elevation (NSTEMI) myocardial infarction red yeast rice 600 mg oral tablet (20 sources) Start: 04-18-2024 End: 04-23-2024 take 1 tablet by mouth once daily Red Yeast Rice 600 mg tablet Discontinued 600 mg PO daily April 18, 2024 1:00am April 23, 2024 4:16pm give with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 0.4 mg sublingual Q5-15M PRN chest 04/12/23 12/10/24 Rx tablet (Nitrostat) pain #25 tabs docusate sodium 100 mg capsule 100 mg PO PRN PRN constipation 05/2812/10/24 History levocetirizine 5 mg tablet 5 mg PO DAILY 06/16/23 12/10/24 Hi story calcium 500 mg tablet 500 mg PO BID 10/17/23 12/10/24 Hi story tiotropium 2.5 mcg-olodaterol 2.5 2 puff inhalation DAILY 10/25/23 12/10/24 History mcg/actuation mist for inhalation (Stiolto Respimat) ferrous fumarate 325 mg (106 mg 325 mg PO QDAY 03/06/24 12/10/24 H istory iron) tablet cholecalciferol (vitamin D3) 50 50 mcg PO QDAY 04/18/24 12/10/24 H istory mcg (2,000 unit) capsule amlodipine 10 mg tablet See Rx Instructions .Route 5 12/10/24 Rx .COMPLEX #28 tabs lisinopril 5 mg tablet 5 mg PO DAILY (more content not included)... Normal [facility] Microalb:Creat Ratio,Random URon 11-21-2024 MALB:CREAT 10.9 mg/g CRE Normal [facility] Comment on above: Result Comment: AMENDED REPORT 11/21/24824 MALB:CREAT previously reported as: 108.9 mg/g CRE Performed By: #### L 501.6710, L500.4050, L503.6620, L4600.0100, L100.0100, L300.8000, L3100.5475, L505.7010, L101.9900 #### [facility] [address] [place], [place], [id number] Gastroenterology Visit Repor ton 10-03-2024 Gastroenterology Visit Report [facility]astroenterology [address] [place] [address] OFFICE VISIT Date of Service: 10/03/24 MR#: [id number] Acct: [id number] Name: LAYLA HIGUERA Rep #: [id number] : 1950 Provider: THERESA Camp Age/Sex: 74/F Location[place] [facility] [place] Status: Signed Intake Vital Signs 09/02/24 13:42 Height 4 ft 11 in Weight: 178 lb 4 oz BMI 36.0 BP 130/67 H Blood Pressure Location Lt brachial Position Sitting Pulse 66 Pulse Source Monitor Pulse Oximetry (%) 94 Oxygen Delivery Method room air Intake Visit Reasons: FU Chief Complaint: bloating Allergies codeine Allergy (Verified 09/02/24 13:55) Other Penicillins Allergy (Verified 09/02/24 13:55) Swelling Sulfa (Sulfonamide Antibiotics) Allergy (Verified 09/02/24 13:55) Swelling diphenhydramine (From Benadryl) Adverse Reaction (Intermediate, Verified 09/02/24 13:55) Other acetaminophen (From Tylenol) Adverse Reaction (Verified 09/02/24 13:55) NEEDS FOLLOW-UP metoclopramide (From Reglan) Adverse Reaction (Verified 09/02/24 13:55) Other Have you fallen in the past year?: No Nurse's Note: OV 10.03.24 Pt here for f/u [facility] Medical History (Updated 09/04/24 @ 16:38 by GABY Marques) Cardiac murmur Current use of long term care administrator anticoagulation Arterial vascular disease Bilateral buttock pain Lumbar back pain Wears glasses Cancer Insulin dependent diabetes mellitus Arthritis Walker as ambulation aid Ambulates with cane Bladder disease High cholesterol Back pain Seizures History of hiatal hernia History of diverticulitis Gastric reflux History of heart attack History of irregular heartbeat Cardiology follow-up encounter History of echocardiogram History of stress test Dehydration Fecal impaction of colon Abdominal pain Nausea and vomiting Coronary atherosclerosis Ischemic stroke GERD (gastroesophageal reflux disease) Pancreatitis Chronic pain Former smoker Sternum pain History of CVA (cerebrovascular accident) (09/2014) Atherosclerosis of coronary artery of [place] heart without angina pectoris History of non-ST elevation myocardial infarction (NSTEMI) (06/2018) Essential (primary) hypertension Overactive bladder Anxiety Tobacco abuse Diabetes Hyperlipidemia Surgical History Hx of endoscopy Hx of colonoscopy History of sinus surgery History of left heart catheterization (05/28/18) H/O coronary artery bypass surgery (05/30/18) Social History household members: none Smoking Status: Former smoker alcohol intake: current alcohol intake frequency: holidays/special occasions only substance use type: does not use HPI HPI Chief Complaint: bloating Details: LAYLA HIGUERA, is a 74 F who presents to the office today for f/u. [facility] established [place] [address] [facility] admission for pancreatitis. CT abd/pel without contrast noted minimal sludge in gallbladder; small hiatal hernia; fecal retention; diverticulosis EGD and colonoscopy 2.12.25. EGD LA Grade B reflux esophagitis; moderate Schatzki ring, Savary dilator 51F; small hiatal hernia; erythematous gastric body/antrum, gastritis; multiple non-bleeding duodenalulcers.H.Pyl toshia negative. Colonoscopy two TA polyps; congested mucosa sigmoid, splenic flexure and ascending colon, no pathologic changes. Gastric emptying study 6.12.25 27.55 minutes (12-56) Biochemical 6.13.23 CBC, ESR, CMP, LFT, CRP, LDH, cholesterol, triglycerides, Vit D25, TSH, GAME, ANCA, QUINCY Last OV 1.9.25 Pt continues to feel unwell. Pt has upper abd pain which affects her ability to breath. Bloating continues. Manometry 3.05.29; Lower esophageal sphincter pressure was 39.5 her upper esophageal sphincter pressure was elevated at 23.7. Consistent with spastic esophagus with increased distal esophageal spasm OV 5.1.25 Pt continues to have constipation, bloating and trouble swallowing. ROS Const Constitutional: Positive for fatigue and headache(s); No fever(s) or weight change ENT ENT: Positive for headache(s); No difficulty swallowing Cardio Cardiology: Positive for leg pain with exertion Gastro GI: Positive for abdominal pain, bloating and excessive flatus; No belching, change in bowel habits, change in stool character, coffee ground emesis, constipation, cramping, diarrhea, heartburn, difficulty swallowing, feeling full early, incontinent of stools, Vomiting blood/hematemesis, Blood in stool, loose stools, Black,tarry stools, nausea/dyspepsia, pain with swallowing, vomiting or other Musc Musculoskeletal: Positive for abnormal gait, joint pain, back pain, muscle cramps, muscle weakness, numbness, tingling, Arthritis, restless legs, leg pain at night and (more content not included)... Normal [facility] Albumin DL <= 20 mg/L (U) [M ass/Vol]Ordered By: Tere Mckenzie on 09-03-2024 Urine Random Microalbumin 18.4 mg/L NO RANGE EST. [facility] Anion gap in Serum or Plasma Ordered By: Tere Mckenzie on 09-03-2024 Anion gap [Moles/Vol] 13 mmol/L 5-15 [facility] BUN/creatinine ratioOrdered By: Tere Mckenzie on 09-03-2024 Urea nitrogen/Creatinine [Mass ratio] 22.5 mg/mg High 10-20 [facility] Bilirubin, totalOrdered By: Tere Mckenzie on 09-03-2024 Bilirubin [Mass/Vol] 0.31 mg/dL 0.00-1.30 [facility] Calculated very low density lipoprotein (VLDL) cholesterol measurementOrdered By: Tere Mckenzie on 09-03-2024 Calculated very low density lipoprotein (VLDL) cholesterol measurement 15 mg/dL -40 [facility] VLDL Cholesterol 15 mg/dL -40 [facility] Carbon dioxide, total [Moles /volume] in Central venous bloodOrdered By: Tere Mckenzie on 09-03-2024 CO2 [Moles/Vol] 23.6 mmol/L 21.0-32.0 [facility] Chloride assayOrdered By: Me aysha Mckenzie on 09-03-2024 Chloride [Moles/Vol] 104 mmol/L 98-108 [facility] Comprehensive Metabolic Prof ilon 09-03-2024 Albumin [Mass/Vol] 4.1 g/dL Normal 3.4-4.8 [facility] Comment on above: Performed By: #### L 501.6710, L500.4050, L503.6620, L4600.0100, L100.0100, L300.8000, L3100.5475, L505.7010, L101.9900 #### [facility] [address] [place], [address] Albumin/Globulin [Mass ratio] 1.2 {ratio} Normal 0.9-2.4 [facility] Comment on above: Performed By: #### L 501.6710, L500.4050, L503.6620, L4600.0100, L100.0100, L300.8000, L3100.5475, L505.7010, L101.9900 #### [facility] [address] [place], [address] ALK PHOS 97 U/L Normal 35-104 [facility] Comment on above: Performed By: #### L 501.6710, L500.4050, L503.6620, L4600.0100, L100.0100, L300.8000, L3100.5475, L505.7010, L101.9900 #### [facility] [address] [place], [address] ALT [Catalytic activity/Vol] 14 U/L Normal <=34 [facility] Comment on above: Performed By: #### L 501.6710, L500.4050, L503.6620, L4600.0100, L100.0100, L300.8000, L3100.5475, L505.7010, L101.9900 #### [facility] [address] [place], [address] AST [Catalytic activity/Vol] 14 U/L Normal <=31 [facility] Comment on above: Performed By: #### L 501.6710, L500.4050, L503.6620, L4600.0100, L100.0100, L300.8000, L3100.5475, L505.7010, L101.9900 #### [facility] [address] [place], [address] Bilirubin [Mass/Vol] 0.31 mg/dL Normal 0.00-1.30 [facility] Comment on above: Performed By: #### L 501.6710, L500.4050, L503.6620, L4600.0100, L100.0100, L300.8000, L3100.5475, L505.7010, L101.9900 #### [facility] [address] [place], [address] BUN/CRE 22.5 RATIO High 10-20 [facility] Comment on above: Performed By: #### L 501.6710, L500.4050, L503.6620, L4600.0100, L100.0100, L300.8000, L3100.5475, L505.7010, L101.9900 #### [facility] [address] [place], [address] Calcium [Mass/Vol] 9.2 mg/dL Normal 7.6-11.0 [facility] Comment on above: Performed By: #### L 501.6710, L500.4050, L503.6620, L4600.0100, L100.0100, L300.8000, L3100.5475, L505.7010, L101.9900 #### [facility] [address] [place], [address] Chloride [Moles/Vol] 104 mmol/L Normal 98-108 [facility] Comment on above: Performed By: #### L 501.6710, L500.4050, L503.6620, L4600.0100, L100.0100, L300.8000, L3100.5475, L505.7010, L101.9900 #### [facility] [address] [place], [place], [id number] ([address] CO2 [Moles/Vol] 23.6 mmol/L Normal 21.0-32.0 [facility] Comment on above: Performed By: #### L 501.6710, L500.4050, L503.6620, L4600.0100, L100.0100, L300.8000, L3100.5475, L505.7010, L101.9900 #### [facility] [address] [place], [place], [id number] Creatinine [Mass/Vol] 0.84 mg/dL Normal 0.70-1.20 [facility] Comment on above: Performed By: #### L 501.6710, L500.4050, L503.6620, L4600.0100, L100.0100, L300.8000, L3100.5475, L505.7010, L101.9900 #### [facility] [address] [place], [place], [id number] ([address] GAP 13 Normal 5-15 [facility] Comment on above: Performed By: #### L 501.6710, L500.4050, L503.6620, L4600.0100, L100.0100, L300.8000, L3100.5475, L505.7010, L101.9900 #### [facility] [address] [place], [address] GFR/1.73 sq M.predicted among non-blacks MDRD (S/P/Bld) [Vol rate/Area] 73 mL/min/{1.73_m2} Normal >60 [facility] Comment on above: Result Comment: mL/m in/1.73m2 CKD-EPI Creatinine Equation (2020) Performed By: #### L 501.6710, L500.4050, L503.6620, L4600.0100, L100.0100, L300.8000, L3100.5475, L505.7010, L101.9900 #### [facility] [address] [place], [address] Globulin (S) [Mass/Vol] 3.4 g/dL Normal 2.2-4.2 [facility] Comment on above: Performed By: #### L 501.6710, L500.4050, L503.6620, L4600.0100, L100.0100, L300.8000, L3100.5475, L505.7010, L101.9900 #### [facility] [address] [place], [address] Glucose [Mass/Vol] 89 mg/dL Normal 70-99 [facility] Comment on above: Performed By: #### L 501.6710, L500.4050, L503.6620, L4600.0100, L100.0100, L300.8000, L3100.5475, L505.7010, L101.9900 #### [facility] [address] [place], [address] Potassium [Moles/Vol] 4.0 mmol/L Normal 3.3-5.1 [facility] Comment on above: Performed By: #### L 501.6710, L500.4050, L503.6620, L4600.0100, L100.0100, L300.8000, L3100.5475, L505.7010, L101.9900 #### [facility] [address], [address] Sodium [Moles/Vol] 140 mmol/L Normal 133-145 [facility] Comment on above: Performed By: #### L 501.6710, L500.4050, L503.6620, L4600.0100, L100.0100, L300.8000, L3100.5475, L505.7010, L101.9900 #### [facility] [address] [place], [address] T PROT 7.6 g/dL Normal 5.9-8.4 [facility] Comment on above: Performed By: #### L 501.6710, L500.4050, L503.6620, L4600.0100, L100.0100, L300.8000, L3100.5475, L505.7010, L101.9900 #### [facility] [address] [place], [address] Urea nitrogen [Mass/Vol] 19 mg/dL Normal 4-19 [facility] Comment on above: Performed By: #### L 501.6710, L500.4050, L503.6620, L4600.0100, L100.0100, L300.8000, L3100.5475, L505.7010, L101.9900 #### [facility] [address] [place], [address] Creatinine Unsp time (U) [Ma ss/Vol]Ordered By: Tere Mckenzie on 09-03-2024 Creatinine (U) [Mass/Vol] 169.00 mg/dL 28.00-21 7.00 [facility] GFR/1.73 sq M.predicted santos g non-blacks MDRD (S/P/Bld) [Vol rate/Area]Ordered By: Tere Mckenzie on 09-03-2024 Estimated GFR (MDRD) Non-Af Amer 73 >60 [facility] Comment on above: mL/min/1.73m2 CKD-EP I Creatinine Equation (2020) Glomerular filtration rate ( GFR) estimation/1.73 sq m using serum, plasma, or whole bOrdered By: Tere Mckenzie on 09-03-2024 GFR/1.73 sq M.predicted among non-blacks MDRD (S/P/Bld) [Vol rate/Area] 73 mL/min/{1.73_m2} >60 [facility] Comment on above: mL/min/1.73m2 CKD-EP I Creatinine Equation (2020) LDL calc ser/plasOrdered By: Tere Mckenzie on 09-03-2024 Cholesterol in LDL [Mass/Vol] 193 mg/dL [facility] Comment on above: Usjkhcrzki=770-369 m g/dL & Higher Srqs=899 mg/dL or greater LDL Cholesterol, Calculated 193 mg/dL [facility] Comment on above: Jgyukmujhl=543-739 m g/dL & Higher Htpl=119 mg/dL or greater Laboratory - Chemistry and C hemistry - challengeOrdered By: Tere Mckenzie on 09-03-2024 AST [Catalytic activity/Vol] 14 U/L <32 [facility] Lipid Profileon 09-03-2024 CHOL:HDL 5.40 Normal [facility] Comment on above: Performed By: #### L 501.6710, L500.4050, L503.6620, L4600.0100, L100.0100, L300.8000, L3100.5475, L505.7010, L101.9900 #### [facility] [address] [place], [address] Cholesterol [Mass/Vol] 256 mg/dL High <=200 [facility] Comment on above: Result Comment: Chol esterol level, Desirable <200 mg/dL Borderline high cholesterol 200-239 mg/dL High cholesterol >=240 mg/dL Recommendations of the NCEP Adult Treatment Panel for the following risk-cutoff thresholds for the [place] population. Performed By: #### L 501.6710, L500.4050, L503.6620, L4600.0100, L100.0100, L300.8000, L3100.5475, L505.7010, L101.9900 #### [facility] [address] [place], [address] Cholesterol in HDL [Mass/Vol] 47 mg/dL Normal [facility] Comment on above: Result Comment: Gisela onal Cholesterol Education Program (NCEP) guidelines: <40 mg/dL: Low HDL-cholesterol (major risk factor for CHD) >= 60 mg/dL: High HDL-cholesterol (negative risk factor for CHD) HDL-cholesterol is affected by a number of factors, e.g. smoking, exercise, hormones, sex and age. Performed By: #### L 501.6710, L500.4050, L503.6620, L4600.0100, L100.0100, L300.8000, L3100.5475, L505.7010, L101.9900 #### [facility] [address] [place], [address] Cholesterol in LDL [Mass/Vol] 193 mg/dL Normal [facility] Comment on above: Result Comment: Bord xcmqix=920-040 mg/dL Higher Nsgs=048 mg/dL or greater Performed By: #### L 501.6710, L500.4050, L503.6620, L4600.0100, L100.0100, L300.8000, L3100.5475, L505.7010, L101.9900 #### [facility] [address] [place], [address] Cholesterol in VLDL [Mass/Vol] 15 mg/dL Normal 5-40 [facility] Comment on above: Performed By: #### L 501.6710, L500.4050, L503.6620, L4600.0100, L100.0100, L300.8000, L3100.5475, L505.7010, L101.9900 #### [facility] [address], [address] Triglyceride [Mass/Vol] 76 mg/dL Normal [facility] Comment on above: Result Comment: The drugs N-Acetylcysteine and Metamizole may falsely depress this assay. Normal range: <150 mg/dL Borderline High: 150-199 mg/dL High: 200-499 mg/dL Very High: >500 mg/dL Performed By: #### L 501.6710, L500.4050, L503.6620, L4600.0100, L100.0100, L300.8000, L3100.5475, L505.7010, L101.9900 #### [facility] [address] [place], [address] Microalbumin/creat ratio urO rdered By: Tere Mckenzie on 09-03-2024 Urine Microalbumin/Creatinine Ratio 108.9 mg/g CRE [facility] Potassium (Unsp spec) [Mass/ Vol]Ordered By: Tere Mckenzie on 09-03-2024 Potassium [Moles/Vol] 4.0 mmol/L 3.3-5.1 [facility] Potassium measurement (mass/ volume)Ordered By: Tere Mckenzie on 09-03-2024 Potassium (Unsp spec) [Mass/Vol] 4.0 mmol/L 3.3-5.1 [facility] Random urine creatinine yuniel urement (mass/volume)Ordered By: Tere Mckenzie on 09-03-2024 Creatinine Unsp time (U) [Mass/Vol] 169.00 mg/dL 28.00-217.00 [facility] Screening total cholesterol/ high density lipoprotein (HDL) cholesterol ratioOrdered By: Tere Mckenzie on 09-03-2024 Cholesterol.total/Cholester ol in HDL [Mass ratio] 5.40 {ratio} [facility] Serum creatinine measurement (mass/volume)Ordered By: Tere Mckenzie on 09-03-2024 Creatinine [Mass/Vol] 0.84 mg/dL 0.70-1.20 [facility] Serum globulin measurementOr dered By: Tere Mckenzie on 09-03-2024 Globulin (S) [Mass/Vol] 3.4 g/dL 2.2-4.2 [facility] Serum glucose measurement (m ass/volume)Ordered By: Tere Mckenzie on 09-03-2024 Glucose [Mass/Vol] 89 mg/dL 70-99 [facility] Serum or plasma alanine boyce otransferase (ALT) measurementOrdered By: Tere Mckenzie on 09-03-2024 ALT [Catalytic activity/Vol] 14 U/L <35 [facility] Serum or plasma albumin yuniel urement (mass/volume)Ordered By: Tere Mckenzie on 09-03-2024 Albumin [Mass/Vol] 4.1 g/dL 3.4-4.8 [facility] Serum or plasma albumin/glob ulin mass ratioOrdered By: Tere Mckenzie on 09-03-2024 Albumin/Globulin [Mass ratio] 1.2 {ratio} 0.9-2.4 [facility] Serum or plasma alkaline christopher sphatase measurementOrdered By: Tere Mckenzie on 09-03-2024 ALP [Catalytic activity/Vol] 97 U/L 35-104 [facility] Serum or plasma calcium yuniel urement (mass/volume)Ordered By: Tere Mckenzie on 09-03-2024 Calcium [Mass/Vol] 9.2 mg/dL 7.6-11.0 [facility] Serum or plasma cholesterol in HDL measurement (mass/volume)Ordered By: Tere Mckenzie on 09-03-2024 Cholesterol in HDL [Mass/Vol] 47 mg/dL >40 [facility] Comment on above: National Cholesterol Education Program (NCEP) guidelines:<40 mg/dL: Low HDL-cholesterol (major risk factor for CHD)>= 60 mg/dL: High HDL-cholesterol (negative risk factor for CHD)HDL-cholesterol is affected by a number of factors, e.g. smoking, exercise, hormones, sex and age. Serum or plasma cholesterol measurement (mass/volume)Ordered By: Tere Mckenzie on 09-03-2024 Cholesterol [Mass/Vol] 256 mg/dL High <201 [facility] Comment on above: Cholesterol level, D esirable <200 mg/dLBorderline high cholesterol 200-239 mg/dLHigh cholesterol >=240 mg/dLRecommendations of the NCEP Adult Treatment Panel for the following risk-cutoff thresholds for the [place] population. Serum or plasma urea nitroge n measurement (mass/volume)Ordered By: Tere Mckenzie on 09-03-2024 Urea nitrogen [Mass/Vol] 19 mg/dL 4-19 [facility] Sodium levelOrdered By: Dorian Mckenzie on 09-03-2024 Sodium [Moles/Vol] 140 mmol/L 133-145 [facility] Total proteinOrdered By: Keila Mckenzie on 09-03-2024 Protein [Mass/Vol] 7.6 g/dL 5.9-8.4 [facility] Triglycerides measurementOrd ered By: Tere Mckenzie on 09-03-2024 Triglyceride [Mass/Vol] 76 mg/dL <199 [facility] Comment on above: The drugs N-Acetylcy steine and Metamizole may falsely depress this assay. Normal range: <150 mg/dLBorderline High: 150-199 mg/dLHigh: 200-499 mg/dLVery High: >500 mg/dL Urine albumin measurement [facility] detection limit of 20 mg/L or less (mass/volume)Ordered By: Tere Mckenzie on 09-03-2024 Albumin DL <= 20 mg/L (U) [Mass/Vol] 18.4 mg/L NO RANGE EST. [place] [facility] Endocrinology Visit Reporton 09-02-2024 Endocrinology Visit Report [facility] [address] [place] [address] OFFICE VISIT Date of Service: 09/02/24 MR#: [id number] Acct: [id number] Name: LAYLA HIGUERA Rep #: [id number] : 1950 Provider: GABY anderson Age/Sex: 74/F Location: [facility] [place] Status: Signed Intake Vital Signs 04/18/24 13:36 05/14/24 15:18 09/02/24 13:42 Height 4 ft 11 in 4 ft 11 in 4 ft 11 in Weight: 178 lb 4 oz BMI 36.0 BP 130/67 H Blood Pressure Location Lt brachial Position Sitting Pulse 66 Pulse Source Monitor Pulse Oximetry (%) 94 Oxygen Delivery Method room air Intake Visit Reasons: 4 M FU, RS 07/18 Chief Complaint: f/u diabetes Is patient in pain?: No Allergies codeine Allergy (Verified 09/02/24 13:55) Other Penicillins Allergy (Verified 09/02/24 13:55) Swelling Sulfa (Sulfonamide Antibiotics) Allergy (Verified 09/02/24 13:55) Swelling diphenhydramine (From Benadryl) Adverse Reaction (Intermediate, Verified 09/02/24 13:55) Other acetaminophen (From Tylenol) Adverse Reaction (Verified 09/02/24 13:55) NEEDS FOLLOW-UP metoclopramide (From Reglan) Adverse Reaction (Verified 09/02/24 13:55) Other Medications ???Medication ???Instructions ???Recorded ???Confirmed ???Type aspirin 81 mg tablet,delayed 81 mg PO DAILY@0800 Heart health 0 06/14/18 09/02/24 History release insulin glargine 100 unit/mL (3 50 unit subcut QHS 07/15/21 History mL) subcutaneous pen (Lantus Solostar U-100 Insulin) citalopram 10 mg tablet (Celexa) 20 mg PO DAILY 08/27/21 09/02/24 H istory insulin aspart U-100 100 unit/mL 17 unit subcut TID 09/16/21 History (3 mL) subcutaneous pen (Novolog FlexPen U-100 Insulin aspart) calcium carbonate-vit A and D 1 tab PO DAILY 01/31/22 09/02/24 H istory tablet famotidine 40 mg tablet 40 mg PO DAILY 07/27/22 09/02/24 H istory omeprazole 40 mg capsule,delayed 40 mg PO DAILY #90 caps 10/13/22 0 09/02/24 Rx release nitroglycerin 0.4 mg sublingual 0.4 mg sublingual Q5-15M PRN chest 04/12/23 09/02/24 Rx tablet (Nitrostat) pain #25 tabs docusate sodium 100 mg capsule 100 mg PO PRN PRN constipation 05/2809/02/24 History levocetirizine 5 mg tablet 5 mg PO DAILY 06/16/23 09/02/24 Hi story calcium 500 mg tablet 500 mg PO BID 10/17/23 09/02/24 Hi story tiotropium 2.5 mcg-olodaterol 2.5 2 puff inhalation DAILY 10/25/23 09/02/24 History mcg/actuation mist for inhalation (Stiolto Respimat) ferrous fumarate 325 mg (106 mg 325 mg PO QDAY 03/06/24 09/02/24 H istory iron) tablet cholecalciferol (vitamin D3) 50 50 mcg PO QDAY 04/18/24 09/02/24 H istory mcg (2,000 unit) capsule ezetimibe 10 mg tablet (Zetia) 10 mg PO QDAY #30 tabs 04/23/24 Rx amlodipine 10 mg tablet See Rx Instructions .Route 5 09/02/24 Rx .COMPLEX #28 tabs lisinopril 5 mg tablet 5 mg PO DAILY #30 tabs 08/08/24 Rx Have you fallen in the past year?: No PFSH Medical History (Updated 09/02/24 @ 16:40 by Tere Mckenzie, MOTOR AND GENERATOR ASSEMBLER-C) Cardiac murmur Current use of long term care administrator anticoagulation Arterial vascular disease Bilateral buttock pain Lumbar back pain Wears glasses Cancer Insulin dependent diabetes mellitus Arthritis Walker as ambulation aid Ambulates with cane Bladder disease High cholesterol Back pain Seizures History of hiatal hernia History of diverticulitis Gastric reflux History of heart attack History of irregular heartbeat Cardiology follow-up encounter History of echocardiogram History of stress test Dehydration Fecal impaction of colon Abdominal pain Nausea and vomiting Coronary atherosclerosis Ischemic stroke GERD (gastroesophageal reflux disease) Pancreatitis Chronic pain Former smoker Sternum pain History of CVA (cerebrovascular accident) (09/2014) Atherosclerosis of coronary artery of [place] heart without angina pectoris History of non-ST elevation myocardial infarction (NSTEMI) (06/2018) Essential (primary) hypertension Overactive bladder Anxiety Tobacco abuse Diabetes Hyperlipidemia Surgical History Hx of endoscopy Hx of colonoscopy History of sinus surgery History of left heart catheterization (05/28/18) H/O coronary artery bypass surgery (05/30/18) Social History household members: none Smoking Status: Former smoker alcohol intake: current alcohol intake frequency: holidays/special occasions only substance use type: does not use HPI HPI Chief Complaint: f/u diabetes Details: LAYLA HIGUERA, is a 74 F who presents to the office today for evaluation and management of diabetes. A1C today (more content not included)... Normal [facility] Laboratory - Hematology and Cell countsOrdered By: Tere Mckenzie on 09-02-2024 HbA1c (Bld) [Mass fraction] 7.6 % High 4.2-6.3 [facility] [place] 07-04-2024 MOOSE Telephone (OBGYWM) LAYLA HIGUERA ([id number]) 1950 F Date Time Provider Department 07/04/24 MAE RAYA During your visit today, we recorded the following information about you: Wanda Reardon RN 07/04/2024 8:42 AM Signed ----- Message from Mae Raya MD sent at 07/04/2024 8:38 AM EST ----- Please let patient know her vaginal cultures are negative for infection Wanda Reardon RN 07/04/2024 8:43 AM Signed Left message for patient to call office. FADI Fernández Jennifer, RN 07/04/2024 12:39 PM Signed Patient notified. She picked up the Clobetasol RX, but hasn't started using it. States it didn't work the last time. Asked if she would like to give it a try now since she already picked up the prescription. Patient stated no. Wants another type of medication sent. FADI Goldman Jennifer, MD 07/04/2024 12:53 PM Signed Pt previous have kenalog not clobetasol. Other than a skin protectant like AANDD, there are no other creams for itching Wanda Reardon RN 07/04/2024 1:12 PM Signed Called Pt and notified her of this. Pt states she will give the Clobetasol another try for 3 weeks and will use as JG had directed and will call office back if does not seem to be helping. Pt states AANDD did not work in the past. Wanda Reardon RN Allergies As of Date: 07/04/2024 Noted Allergy Reaction CODEINE 05/30/2012 1 - Mental Status Change Comments: I was really trippin. PENICILLINS 05/30/2012 7 - Swelling Comments: Swelling of lips. SULFUR 05/30/2012 7 - Swelling Comments: Swelling of lips. BENADRYL ALLERGY DECONGESTANT 05/27/2018 14 - Other: See Comments Comments: I feel really weird REGLAN (METOCLOPRAMIDE HCL) 10/20/2014 14 - Other: See Comments ROSUVASTATIN 02/28/2020 17 - Myalgia TYLENOL (ACETAMINOPHEN) 10/14/2014 8 - GI Upset Date Reviewed: 07/02/2024 Reviewed by: Mae Raya MD - Fully Assessed Reason for Visit: Results [95] Prescriptions as of 07/04/2024 - Clobetasol Propionate 0.05 % gel Apply to affected area two times a day. - vitamin A and D ointment Apply to affected area as needed. Apply each time pull up is changed to vulvar area. - STIOLTO RESPIMAT 2.5-2.5 mcg/actuation inhale 2 puffs by mouth daily - levocetirizine 5 mg tablet 5 mg. - lisinopril (ZESTRIL) 5 mg tablet 5 mg. - tiotropium bromide (SPIRIVA RESPIMAT) 2.5 mcg/actuation inhaler Inhale 2 Puffs as instructed once daily. - calcium carbonate (OS-STEPHANIE 500) 500 mg calcium (1,250 mg) tablet - citalopram (CELEXA) 20 mg tablet - famotidine (PEPCID) 40 mg tablet - rosuvastatin (CRESTOR) 40 mg tablet - umeclidinium (INCRUSE ELLIPTA) 62.5 mcg/actuation inhaler Inhale 1 Puff as instructed once daily. - pravastatin (PRAVACHOL) 40 mg tablet Take 1 tablet by mouth daily at bedtime. - insulin needles, DISPOSABLE, (PEN NEEDLE) 31 gauge x 5/16 Use one needle per dose. 4 per day. - blood sugar diagnostic (BLOOD GLUCOSE TEST) test strip Test blood sugar(s) 4 times daily. Dx: Type 2 DM - Uncontrolled E11.65 Insulin: Yes.Send to pt whatever meter and supplies are covered. - Lancets lancets Test blood sugar(s) 4 times daily. Dx: Type 2 DM - Uncontrolled E11.65 Insulin: Yes Send to pt what ever meter and supplies are covered. - aspirin, enteric coated (ASPIRIN, ENTERIC COATED) 81 mg EC tablet Take 1 tablet by mouth once daily. - docusate sodium (COLACE) 100 mg capsule Take 1 capsule by mouth twice daily. - insulin glargine (LANTUS SOLOSTAR, BASAGLAR KWIKPEN) 100 unit/mL (3 mL) Inject 30 Units subcutaneously daily at bedtime. Adjust dose as directed - insulin aspart U-100 (NOVOLOG FLEXPEN U-100 INSULIN) 100 unit/mL (3 mL) Inject 10 Units subcutaneously three times daily before meals. If Blood Glucose (mg/dL) is: Less than 110 Give 0 units 111-150 Give 0 units 151-200 Give 1 unit 201-250 Give 2 units 251-300 Give 3 units 301-350 Give 4 units 351-400 Give 5 units Greater than 400 Give 5 units and Notify Provider Notify provider if 2 consecutive blood glucose values in the previous 24 hours are greater than 250 mg/mL and there have been no changes to the insulin regimen in the previous 24 hours. - Cholecalciferol, Vitamin D3, 25 mcg (1,000 unit) chew Take 3 tablets by mouth once daily. - metoprolol tartrate, short acting, (LOPRESSOR) 25 mg tablet Take 0.5 tablets by mouth every 12 hours. - cyclobenzaprine (FLEXERIL) 10 mg tablet Take 1 tablet by mouth twice daily as needed for muscle spasm. - cyanocobalamin (VITAMIN B-12) 1,000 mcg tab Take 1 tablet by mouth once daily. - clopidogrel (PLAVIX) 75 mg tablet Take 1 tablet by mouth once daily. - ondansetron (ZOFRAN) 4 mg tablet Take 1 tablet by mouth every 8 hours as needed. - amLODIPine (NORVASC) 5 mg tablet Take 5 mg by mouth once daily. - fexofenadine (LATANYA ALLERGY) 180 mg tablet Take 1 tablet by sweta (more content not included)... Normal [facility] BACTERIAL VAGINOSIS NAATon 0 07-02-2024 Lactobacillus crispatus+gasseri+jensenii + Gardnerella vaginalis + Atopobium vaginae rRNA DARLIN+probe Ql (Vag fld) Not detected Normal Not detected [facility] Comment on above: Order Comment: Speci men Type: SWAB Ordering Facility: [facility] Address: [address] [place] [id number] Performed By: #### C VTV, BVAMP #### [facility] CLIA [id number] [address] [place] [address] [place] [id number] [place] BAYRON/TRICHOMONAS NAATon 0 07-02-2024 C. glabrata RNA DARLIN+probe Ql (Vag fld) Not detected Normal Not detected [facility] Comment on above: Order Comment: Speci men Type: SWAB Ordering Facility: [facility] Address: [address] [place] [address] Performed By: #### C VTV, BVAMP #### [facility] CLIA [id number] [address] [place] [address] OF [place] Bayron sp DNA DARLIN+probe Ql (Vag fld) Not detected Normal Not detected [facility] Comment on above: Order Comment: Speci men Type: SWAB Ordering Facility: [facility] Address: [address] [place] [address] Result Comment: The Bayron species group target includes C. albicans, C. tropicalis, C. parapsilosis, and C. dubliniensis. Performed By: #### C VTV, BVAMP #### [facility] CLIA [id number] [address] [place] [address] OF [facility] T. vaginalis DNA DARLIN+probe Ql (Unsp spec) Not detected Normal Not detected [facility] Comment on above: Order Comment: Speci men Type: SWAB Ordering Facility: [facility] Address: [address] [place] [address] Performed By: #### C VTV, BVAMP #### [facility] CLIA [id number] [address] [place] [address] [place] CNOVon 07-02-2024 CNOV Office Visit (OBGYWM) LAYLA HIGUERA ([id number]) 1950 F Date Time Provider Department 07/02/24 3:20 PM CYNTHIA, MAE OBGYWM During your visit today, we recorded the following information about you: Blood pressure Weight 120/80 81.3 kg Mae Raya MD 07/02/2024 4:34 PM Signed [employer] 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 Layla Higuera is a 74 year old female who presents for problem visit itching and prolapse for 1 year(s). HPI: Complains of intense vulvar itching for the last year. No discharge or bleeding. Tried kenalog cream but did not feel it helped. Unsure of how long she use it. Has tried witch yang as well. No dysuria. No difficulty emptying bladder or bowels Feels a bulge every time she has a bowel movement. Thinks it is worse than before. Was previously offered referral but did not schedule. Would like to see urogyn for treatment OB History No obstetric history on file. 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 CAD (coronary artery disease) COPD (chronic obstructive pulmonary disease) ([facility]) 03/18/2013 Stage 0. Normal FEV1 03/2013. Diabetes mellitus type II DVT (deep venous thrombosis) ([facility]) 09/2014 during hospitalization for CVA, bilateral legs and head Dysphagia due to recent stroke 09/2014 GERD (gastroesophageal reflux disease) Hyperlipidemia Hypertension Migraines NSTEMI (non-ST elevated myocardial infarction) (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 Stroke ([facility]) SUMMARY 10/14/2014 Ms Layla Higuera is a 64 year old with a PMH of HTN, DM2, COPD, CVA presenting with bilateral chest pain Weakness left sided 2nd to cva PAST SURGICAL HISTORY Procedure Laterality Date CABG (3) VEIN GRAFTS AND ARTERIAL GRAFT(S) 05/30/2018 CAROTID ENDARTERECTOMY Right 2014 COLONOSCOPY 09/2012 ESOPHAGOGASTRODUODEN OSCOPY TRANSORAL DIAGNOSTIC 09/2012 EGD PAST SURGICAL HISTORY OF 1974 explority of fallopian tubes PAST SURGICAL HISTORY OF 1998 cervical sterum SEPTOPLASTY 1998 FAMILY HISTORY Problem Relation Age of Onset Diabetes Mother Colon Cancer Mother Heart disease Father Diabetes Brother other (CABG) Brother other (esophageal cancer) Brother Asthma No Family History COPD No Family History Intersitial Lung Disease No Family History Social History Tobacco Use Smoking status: Former Current packs/day: 0.00 Average packs/day: 1 pack/day for 40.0 years (40.0 ttl pk-yrs) Types: Cigarettes Start date: 09/04/1974 Quit date: 09/04/2014 Years since quittin.8 Smokeless tobacco: Never Tobacco comments: Father smoked in childhood home. Vaping Use Vaping status: Never Used Substance Use Topics Alcohol use: No Drug use: No Current Outpatient Medications Medication Sig triamcinolone acetonide (KENALOG) 0.1 % ointment Apply to affected area two times a day. For 10-14 days. vitamin A and D ointment Apply to affected area as needed. Apply each time pull up is changed to vulvar area. STIOLTO RESPIMAT 2.5-2.5 mcg/actuation inhale 2 puffs by mouth daily levocetirizine 5 mg tablet 5 mg. lisinopril (ZESTRIL) 5 mg tablet 5 mg. tiotropium bromide (SPIRIVA RESPIMAT) 2.5 mcg/actuation inhaler Inhale 2 Puffs as instructed once daily. (Patient not taking: Reported on 03/09/2023) calcium carbonate (OS-STEPHANIE 500) 500 mg calcium (1,250 mg) tablet citalopram (CELEXA) 20 mg tablet famotidine (PEPCID) 40 mg tablet rosuvastatin (CRESTOR) 40 mg tablet (Patient not taking: Reported on 03/14/2023) umeclidinium (INCRUSE ELLIPTA) 62.5 mcg/actuation inhaler Inhale 1 Puff as instructed once daily. (Patient not taking: Reported on 03/09/2023) pravastatin (PRAVACHOL) 40 mg tablet Take 1 tablet by mouth daily at bedtime. (Patient not taking: Reported on 02/21/2023) insulin needles, DISPOSABLE, (PEN NEEDLE) 31 gauge x 5/16 Use one needle per dose. 4 per day. blood sugar diagnostic (BLOOD GLUCOSE TEST) test strip Test blood sugar(s) 4 times daily. Dx: Type 2 DM - Uncontrolled E11.65 Insulin: Yes.Send to pt whatever meter and supplies are covered. Lancets lancets Test blood sugar(s) 4 times daily. Dx: Type 2 DM - Uncontrolled E11.65 Insulin: Yes Send to pt what ever meter and supplies are covered. aspirin, enteric coated (ASPIRIN, ENTERIC COATED) 81 mg EC tablet Take 1 tablet by mouth once daily. docusate sodium (COLACE) 100 mg capsule Take 1 capsule by mouth twice daily. insulin glargine (LANTUS SOLOSTAR, BASAGLAR KWIKPEN) 100 unit/mL (3 mL) Inject 30 Units subcutaneously daily at bedtime. Adjust dose as directed insulin aspart U (more content not included)... Normal [facility] Gastroenterology Visit Repor ton 06-13-2024 Gastroenterology Visit Report [facility] Gastroenterology [address] [place] [address] OFFICE VISIT Date of Service: 06/13/24 MR#: [id number] Acct: [id number] Name: LAYLA HIGUERA Rep #: [id number] : 1950 Provider: Philip Drummond DO Age/Sex: 74/F Location: [facility] [place] Status: Signed Intake Vital Signs 10/31/23 14:38 05/14/24 15:18 Height 4 ft 11 in 4 ft 11 in Intake Visit Reasons: 3 M FU Chief Complaint: establish care- diabetes Allergies codeine Allergy (Verified 05/14/24 15:24) Other Penicillins Allergy (Verified 05/14/24 15:24) Swelling Sulfa (Sulfonamide Antibiotics) Allergy (Verified 05/14/24 15:24) Swelling diphenhydramine (From Benadryl) Adverse Reaction (Intermediate, Verified 05/14/24 15:24) Other acetaminophen (From Tylenol) Adverse Reaction (Verified 05/14/24 15:24) NEEDS FOLLOW-UP metoclopramide (From Reglan) Adverse Reaction (Verified 05/14/24 15:24) Other Medications ???Medication ???Instructions ???Recorded ???Confirmed ???Type aspirin 81 mg tablet,delayed 81 mg PO DAILY@0800 [facility] 06/14/18 05/14/24 History release insulin glargine 100 unit/mL (3 50 unit subcut QHS 07/15/21 05/14/24 History mL) subcutaneous pen (Lantus Solostar U-100 Insulin) citalopram 10 mg tablet (Celexa) 20 mg PO DAILY 08/27/21 05/14/24 History insulin aspart U-100 100 unit/mL 17 unit subcut TID 09/16/21 05/14/24 History (3 mL) subcutaneous pen (Novolog FlexPen U-100 Insulin aspart) calcium carbonate-vit A and D 1 tab PO DAILY 01/31/22 05/14/24 History tablet famotidine 40 mg tablet 40 mg PO DAILY 07/27/22 05/14/24 History omeprazole 40 mg capsule,delayed 40 mg PO DAILY #90 caps 10/13/22 05/14/24 Rx release nitroglycerin 0.4 mg sublingual 0.4 mg sublingual Q5-15M PRN chest 04/12/23 05/14/24 Rx tablet (Nitrostat) pain #25 tabs docusate sodium 100 mg capsule 100 mg PO PRN PRN constipation 06/16/23 05/14/24 History levocetirizine 5 mg tablet 5 mg PO DAILY 06/16/23 05/14/24 History amlodipine 10 mg tablet See Rx Instructions .Route 08/09/23 05/14/24 Rx .COMPLEX #28 tabs lisinopril 5 mg tablet 5 mg PO DAILY #90 tabs 09/07/23 05/14/24 Rx calcium 500 mg tablet 500 mg PO BID 10/17/23 05/14/24 History tiotropium 2.5 mcg-olodaterol 2.5 2 puff inhalation DAILY 10/25/23 05/14/24 History mcg/actuation mist for inhalation (Stiolto Respimat) ferrous fumarate 325 mg (106 mg 325 mg PO QDAY 03/06/24 05/14/24 History iron) tablet cholecalciferol (vitamin D3) 50 50 mcg PO QDAY 04/18/24 05/14/24 History mcg (2,000 unit) capsule ezetimibe 10 mg tablet (Zetia) 10 mg PO QDAY #30 tabs 04/23/24 05/14/24 Rx Have you fallen in the past year?: No [facility] Medical History (Updated 05/15/24 @ 13:[address] Brendon Orozco MD) Cardiac murmur Current use of long term care administrator anticoagulation Arterial vascular disease Bilateral buttock pain Lumbar back pain Wears glasses Cancer Insulin dependent diabetes mellitus Arthritis Walker as ambulation aid Ambulates with cane Bladder disease High cholesterol Back pain Seizures History of hiatal hernia History of diverticulitis Gastric reflux History of heart attack History of irregular heartbeat Cardiology follow-up encounter History of echocardiogram History of stress test Dehydration Fecal impaction of colon Abdominal pain Nausea and vomiting Coronary atherosclerosis Ischemic stroke GERD (gastroesophageal reflux disease) Pancreatitis Chronic pain Former smoker Sternum pain History of CVA (cerebrovascular accident) (09/2014) Atherosclerosis of coronary artery of [place] heart without angina pectoris History of non-ST elevation myocardial infarction (NSTEMI) (06/2018) Essential (primary) hypertension Overactive bladder Anxiety Tobacco abuse Diabetes Hyperlipidemia Surgical History (Updated 05/14/24 @ 15:31 by Tri Quiles) Hx of endoscopy Hx of colonoscopy History of sinus surgery History of left heart catheterization (05/28/18) H/O coronary artery bypass surgery (05/30/18) Social History household members: none Smoking Status: Former smoker alcohol intake: current alcohol intake frequency: holidays/special occasions only substance use type: does not use HPI HPI Chief Complaint: establish care- diabetes Details: RULATOM KALEN, is a 74 F who presents to the office today for follow up. PMH includes hyperlipidemia; HTN; DM; CVA; NSTEMI; Ischemic stroke.? [facility] hospitalization 9.15.21-9.17.21 for UTI, N/V, CP, bacteremia. [facility] hospitalization 9.21.21- 9.29.21 for TEODORO. ??? CT abd/pel 9.15.21???with low attenuation along falciform ligament consistent with focal fatty sparing; layering sludge of gallbladder, possibly tiny calculi; small hiatal hernia; colonic div (more content not included)... Normal [facility] Dexa Bone Density Studyon Dexa Bone Density Study [facility] Imaging Services [address] [place], [place] [address] Dexa Bone Density Study MR#: [id number] Acct: [id number] Name: LAYLA HIGUERA Rep #: [id number] : 1950 F 74 From: Tato sandoval MD PCP: GABY Jewell Status: REG CLI Study: Dexa Bone Density Study Date of Exam: 06/11/24 Exam# [id number] Ordering Dr: Tere Mckenzie MOTOR AND GENERATOR ASSEMBLER-C [id number] STUDY: DUAL ENERGY X-RAY ABSORPTIOMETRY / DXA REASON FOR EXAM: Female, 74 years old. Screening TECHNIQUE: Bone Mineral Density (BMD) measurements of lumbar spine and bilateral hips were obtained. COMPARISON: Comparison is made with prior study dated October 11, 2012. FINDINGS: Lumbar Spine (L1-L4): g/cm2 (1.015) / T-score (-0.3) / Z-score (2.1) Findings are suggestive of normal bone density with a low fracture risk. Left Femur Total: g/cm2 (0.757) / T-score (-1.5) / Z-score (0.3) Left Femoral Neck: g/cm2 (0.418) / T-score (-3.9) / Z-score (-1.8) Right Femur Total: g/cm2 (0.725) / T-score (-1.8) / Z-score (0.0) Right Femoral Neck: g/cm2 (0.523) / T-score (-2.9) / Z-score (-0.9) The T-Scores on the most recent prior examination were: Lumbar Spine (L1-L4): There has been improvement of bone density since the previous examination. Left Femur Total: which represents a worsening of 9.1%. Right Femur Total: which represents a worsening of 10.2%. BD/Dexa Bone Density Study IMPRESSION: The patient is considered osteoporotic as outlined below according to World Cameron Organization (WHO) criteria with a high fracture risk. There has been worsening of bone density since the previous examination. Reference Information: The T-score is the number of standard deviations above or below the standard which is normal for young adults at their peak bone mineral density. The World Health Organization (WHO) interprets the T-scores as follows: Above -1 Normal bone density Between -1 and -2.5 Osteopenia Equal to / or below -2.5 Osteoporosis As a practical clinical guideline, osteopenia may be graded as follows: Mild -1 through -1.5 Moderate -1.6 through -2.0 Severe -2.1 through -2.4 The Z-score is the number of standard deviations above or below age-matched controls. A Z-score of less than -1.5 would be considered abnormal. References: 1. NIH Osteoporosis and Related Bone Diseases www osteo.org 2. International Society for Clinical Densitometry www iscd.org 3. National Osteoporosis Foundation www nof.org Electronically Signed: Tato Alexander MD at 9:25 EST Reading Location ID and State: [address] [place] [address] , Service support , CC: GABY Mckenzie; GABY [employer]: Signed Normal [facility] Thyroid Peroxidase ABon 12-2 THYR PEROX AB 13 IU/mL Normal 0-34 [facility] Comment on above: Order Comment: Comme nts: fatigue Result Comment: Perf ormed at: CB - [facility] [id number] [place], [place] [id number] Belt Notcher: John Lopez PhD, Phone: [phone] Performed By: #### L 501.0594, L500.4050, L503.3520, L4600.0100, L100.0100, L300.8000, L3100.5475, L505.7010, L101.9900 #### [facility] [address] [place], [place], [address] TPO Ab QnOrdered By: Tere frank on 05-27-2024 Thyroid Peroxidase Antibodies 13 IU/mL 0-34 [facility] Comment on above: Performed at: - L [address] [id number] Director: John Lopez PhD, Phone: [phone] L/S Spine Bending Flex/Effie 05-14-2024 L/S Spine Bending Flex/Ext [facility]iology [address] [place] [address] L/S Spine Bending Flex/Ext MR#: [id number] Acct: [id number] Name: LAYLA HIGUERA Rep #: [id number] : 1950 F 73 From: Jim love DO PCP: GABY Jewell Status: DEP AMB Study: L/S Spine Bending Flex/Ext Date of Exam: 05/14 Exam# [id number] Ordering Dr: Brendon Orozco MD [id number] EXAM: XR LUMBOSACRAL SPINE FLEXION/EXTENSION ONLY, 2 OR 3 VIEWS CLINICAL INDICATION: Low back pain -- Please do flexion-extension only TECHNIQUE: Lateral flexion/extension views of the lumbar spine and sacrum. COMPARISON: 03/19/2024 FINDINGS: VERTEBRAE: Multilevel facet and endplate osteophytosis. Preservation of the normal lumbar lordosis. No fracture or spondylolysis. No spondylolisthesis. No abnormal motion. Limited flexion and extension. DISC SPACES: Multilevel intervertebral disc height loss. VASCULATURE: Atherosclerosis. GASTROINTESTINAL TRACT: Normal as visualized. Included bowel gas pattern is non-obstructive. RAD/L/S Spine Bending Flex/Ext IMPRESSION: No fracture or spondylolysis. No spondylolisthesis. Degenerative changes similar to the prior exam. No abnormal motion upon flexion or extension. Limited motion. Electronically Signed: Jim Clifford DO at 22:32 EST , CC: GABY Sylvester; Dr. Brendon Orozco MD [employer]: Signed Normal [facility] Orthopedic Visit Reporton Orthopedic Visit Report [facility] [address] [place] [address] [address] [place] [address] OFFICE VISIT Date of Service: 05/14/24 MR#: [id number] Acct: [id number] Name: LAYLA HIGUERA Rep #: [id number] : 1950 Provider: Dr. Brendon Orozco MD Age/Sex: 73/F Location[place] [facility] [place] Status: Signed Intake Vital Signs 10/31/23 14:38 04/12/24 13:32 04/23/24 14:45 05/14/24 15:18 Height 4 ft 11 in 4 ft 11 in 4 ft 11 in 4 ft 11 in Weight: 165 lb 175 lb BMI 33.3 35.3 BP 120/74 Blood Pressure Location Rt brachial Position Sitting Respiration 20 H Pulse 67 Pulse Source Monitor Pulse Oximetry (%) 94 Intake Visit Reasons: LUMBAR SPINE Accompanied by: Self Allergies codeine Allergy (Verified 05/14/24 15:24) Other Penicillins Allergy (Verified 05/14/24 15:24) Swelling Sulfa (Sulfonamide Antibiotics) Allergy (Verified 05/14/24 15:24) Swelling diphenhydramine (From Benadryl) Adverse Reaction (Intermediate, Verified 05/14/24 15:24) Other acetaminophen (From Tylenol) Adverse Reaction (Verified 05/14/24 15:24) NEEDS FOLLOW-UP metoclopramide (From Reglan) Adverse Reaction (Verified 05/14/24 15:24) Other Medications ???Medication ???Instructions ???Recorded ???Confirmed ???Type aspirin 81 mg tablet,delayed 81 mg PO DAILY@0800 Heart health 06/14/18 05/14/24 History release insulin glargine 100 unit/mL (3 50 unit subcut QHS 07/15/21 05/14/24 History mL) subcutaneous pen (Lantus Solostar U-100 Insulin) citalopram 10 mg tablet (Celexa) 20 mg PO DAILY 08/27/21 05/14/24 History insulin aspart U-100 100 unit/mL 17 unit subcut TID 09/16/21 05/14/24 History (3 mL) subcutaneous pen (Novolog FlexPen U-100 Insulin aspart) calcium carbonate-vit A and D 1 tab PO DAILY 01/31/22 05/14/24 History tablet famotidine 40 mg tablet 40 mg PO DAILY 07/27/22 05/14/24 History omeprazole 40 mg capsule,delayed 40 mg PO DAILY #90 caps 10/13/22 05/14/24 Rx release nitroglycerin 0.4 mg sublingual 0.4 mg sublingual Q5-15M PRN chest 04/12/23 05/14/24 Rx tablet (Nitrostat) pain #25 tabs docusate sodium 100 mg capsule 100 mg PO PRN PRN constipation 06/16/23 05/14/24 History levocetirizine 5 mg tablet 5 mg PO DAILY 06/16/23 05/14/24 History amlodipine 10 mg tablet See Rx Instructions .Route 08/09/23 05/14/24 Rx .COMPLEX #28 tabs lisinopril 5 mg tablet 5 mg PO DAILY #90 tabs 09/07/23 05/14/24 Rx calcium 500 mg tablet 500 mg PO BID 10/17/23 05/14/24 History tiotropium 2.5 mcg-olodaterol 2.5 2 puff inhalation DAILY 10/25/23 05/14/24 History mcg/actuation mist for inhalation (Stiolto Respimat) ferrous fumarate 325 mg (106 mg 325 mg PO QDAY 03/06/24 05/14/24 History iron) tablet cholecalciferol (vitamin D3) 50 50 mcg PO QDAY 04/18/24 05/14/24 History mcg (2,000 unit) capsule ezetimibe 10 mg tablet (Zetia) 10 mg PO QDAY #30 tabs 04/23/24 05/14/24 Rx metoprolol succinate 25 mg 25 mg PO QDAY 05/14/24 05/14/24 History tablet,extended release 24 hr Have you fallen in the past year?: No [facility] Medical History (Updated 05/15/24 @ 13:[address] Brendon Orozco MD) Cardiac murmur Current use of [place] anticoagulation Arterial vascular disease Bilateral buttock pain Lumbar back pain Wears glasses Cancer Insulin dependent diabetes mellitus Arthritis Walker as ambulation aid Ambulates with cane Bladder disease High cholesterol Back pain Seizures History of hiatal hernia History of diverticulitis Gastric reflux History of heart attack History of irregular heartbeat Cardiology follow-up encounter History of echocardiogram History of stress test Dehydration Fecal impaction of colon Abdominal pain Nausea and vomiting Coronary atherosclerosis Ischemic stroke GERD (gastroesophageal reflux disease) Pancreatitis Chronic pain Former smoker Sternum pain History of CVA (cerebrovascular accident) (09/2014) Atherosclerosis of coronary artery of [place] heart without angina pectoris History of non-ST elevation myocardial infarction (NSTEMI) (06/2018) Essential (primary) hypertension Overactive bladder Anxiety Tobacco abuse Diabetes Hyperlipidemia Surgical History (Updated 05/14/24 @ 15:31 by Tri Quiles) Hx of endoscopy Hx of colonoscopy History of sinus surgery History of left heart catheterization (05/28/18) H/O coronary artery bypass surgery (05/30/18) Social History household members: none Smoking Status: Former smoker alcohol intake: current alcohol intake frequency: holidays/special occasions only substance use type: does not use HPI LUMBAR SPINE Details: This documentation accurately reflects the service provided and the decisions made by me, Dr. Brendon Orozco MD 05/14/24 (more content not included)... Normal [facility] Cardiology Visit Reporton Cardiology Visit Report [facility] [address] [facility] [place] [address] OFFICE VISIT Date of Service: 04/23/24 MR#: [id number] Acct: [id number] Name: LAYLA HIGUERA Rep #: [id number] : 1950 Provider: THERESA Santana Age/Sex: 73/F Location[place] [facility] [place] Status: Signed HPI HPI History of Present Illness Details: Layla Higuera is a 73 y/o female with a history of hypertension, diabetes mellitus, previous cerebrovascular accident, and hyperlipidemia. She had presented to the emergency room in 2018 with chest discomfort and shortness of breath. She underwent a cardiac catheterization which revealed an 80 to 90% proximal lesion, and mid 60 to 70% lesion in the LAD and a moderate caliber diagonal vessel. She had a mid vessel 70% stenosis before the obtuse marginal vessel and a 99% stenosis in the right coronary artery. She underwent coronary artery bypass surgery and post recovery she had transient hypoventilation, acute encephalopathic lethargic reaction, brief atrial fibrillation for which she was put on amiodarone which was subsequently discontinued. It appears that she had a prolonged postoperative course. She did have a pedicled left internal mammary artery to the left anterior descending artery, saphenous vein graft to obtuse marginal branch, and saphenous vein graft to the distal right coronary artery. She did have to recuperate in a mcc. She also has a sclerotic aortic valve. She did have a CT scan performed in January 2019 that did not demonstrate any significant abnormality. Her most recent echocardiogram, and stress test results are noted below. She did have a stress test in 05/2023 that was negative for ischemia. Her biggest concern is her fatigue. She is tired all the time. She does have chest heaviness, this is not necessarily new. It is more so at night when she lays done. She does lighth eadedness/dizziness, this does not happen all the time although she has it right now along with her chest heaviness. She does have SOB, she is SOB with anything, it comes and goes. She does not walk far, she needs to stop and rest walking to the mail box. This is not new, it has been going on for months. She does not sleep well. She wake up frequently, she has not been tested for JEFF. She has not tolerated statins since it makes her muscles hurt, she has tried multiple statins. Intake Vital Signs 10/17/23 13:24 04/18/24 13:36 04/23/24 14:45 Height 4 ft 11 in 4 ft 11 in 4 ft 11 in Weight: 165 lb BMI 33.3 BP 120/74 Blood Pressure Location Rt brachial Position Sitting Respiration 20 H Pulse 67 Pulse Source Monitor Pulse Oximetry (%) 94 Intake Visit Reasons: 6 M FU Contract Clerk Required: No Is patient in pain?: No Allergies codeine Allergy (Verified 04/23/24 14:45) Other Penicillins Allergy (Verified 04/23/24 14:45) Swelling Sulfa (Sulfonamide Antibiotics) Allergy (Verified 04/23/24 14:45) Swelling diphenhydramine (From Benadryl) Adverse Reaction (Intermediate, Verified 04/23/24 14:45) Other acetaminophen (From Tylenol) Adverse Reaction (Verified 04/23/24 14:45) NEEDS FOLLOW-UP metoclopramide (From Reglan) Adverse Reaction (Verified 04/23/24 14:45) Other Medications ???Medication ???Instructions ???Recorded ???Confirmed ???Type aspirin 81 mg tablet,delayed 81 mg PO DAILY@0800 Heart health 06/14/18 04/23/24 History release insulin glargine 100 unit/mL (3 50 unit subcut QHS 07/15/21 04/23/24 History mL) subcutaneous pen (Lantus Solostar U-100 Insulin) citalopram 10 mg tablet (Celexa) 20 mg PO DAILY 08/27/21 04/23/24 History insulin aspart U-100 100 unit/mL 17 unit subcut TID 09/16/21 04/23/24 History (3 mL) subcutaneous pen (Novolog FlexPen U-100 Insulin aspart) calcium carbonate-vit A and D 1 tab PO DAILY 01/31/22 04/23/24 History tablet famotidine 40 mg tablet 40 mg PO DAILY 07/27/22 04/23/24 History omeprazole 40 mg capsule,delayed 40 mg PO DAILY #90 caps 10/13/22 04/23/24 Rx release nitroglycerin 0.4 mg sublingual 0.4 mg sublingual Q5-15M PRN chest 04/12/23 04/23/24 Rx tablet (Nitrostat) pain #25 tabs docusate sodium 100 mg capsule 100 mg PO PRN PRN constipation 06/16/23 04/23/24 History levocetirizine 5 mg tablet 5 mg PO DAILY 06/16/23 04/23/24 History amlodipine 10 mg tablet See Rx Instructions .Route 08/09/23 04/23/24 Rx .COMPLEX #28 tabs lisinopril 5 mg tablet 5 mg PO DAILY #90 tabs 09/07/23 04/23/24 Rx calcium 500 mg tablet 500 mg PO BID 10/17/23 04/23/24 History tiotropium 2.5 mcg-olodaterol 2.5 2 puff inhalation DAILY 10/25/23 04/23/24 History mcg/actuation mist for inhalation (Stiolto Respimat) ferrous fumarate 325 mg (106 mg 325 mg PO QDAY 03/06/24 04/23/24 History iron) tablet cholecalciferol (vitamin D3) 50 50 mcg PO QD (more content not included)... Normal [facility] Endocrinology Visit Reporton 04-18-2024 Endocrinology Visit Report [facility] [address] [place] [address] OFFICE VISIT Date of Service: 04/18/24 MR#: [id number] Acct: [id number] Name: LAYLA HIGUERA Rep #: [id number] : 1950 Provider: GABY anderson Age/Sex: 73/F Location: [facility] [place] Status: Signed Intake Vital Signs 10/31/23 14:38 04/12/24 13:32 04/18/24 13:36 Height 4 ft 11 in 4 ft 11 in 4 ft 11 in Weight: 172 lb 2 oz BMI 34.7 BP 110/73 Blood Pressure Location Lt brachial Pulse 77 Pulse Source Monitor Pulse Oximetry (%) 95 Oxygen Delivery Method room air Intake Visit Reasons: Diabetes Chief Complaint: establish care- diabetes Is patient in pain?: No Allergies codeine Allergy (Verified 12/04/23 15:46) Other Penicillins Allergy (Verified 12/04/23 15:46) Swelling Sulfa (Sulfonamide Antibiotics) Allergy (Verified 12/04/23 15:46) Swelling diphenhydramine (From Benadryl) Adverse Reaction (Intermediate, Verified 12/04/23 15:46) Other acetaminophen (From Tylenol) Adverse Reaction (Verified 12/04/23 15:46) NEEDS FOLLOW-UP metoclopramide (From Reglan) Adverse Reaction (Verified 12/04/23 15:46) Other Medications ???Medication ???Instructions ???Recorded ???Confirmed ???Type aspirin 81 mg tablet,delayed 81 mg PO DAILY@0800 Heart health 06/14/18 04/18/24 History release insulin glargine 100 unit/mL (3 50 unit subcut QHS 07/15/21 04/18/24 History mL) subcutaneous pen (Lantus Solostar U-100 Insulin) citalopram 10 mg tablet (Celexa) 20 mg PO DAILY 08/27/21 04/18/24 History insulin aspart U-100 100 unit/mL 17 unit subcut TID 09/16/21 04/18/24 History (3 mL) subcutaneous pen (Novolog FlexPen U-100 Insulin aspart) calcium carbonate-vit A and D 1 tab PO DAILY 01/31/22 04/18/24 History tablet famotidine 40 mg tablet 40 mg PO DAILY 07/27/22 04/18/24 History omeprazole 40 mg capsule,delayed 40 mg PO DAILY #90 caps 10/13/22 04/18/24 Rx release nitroglycerin 0.4 mg sublingual 0.4 mg sublingual Q5-15M PRN chest 04/12/23 04/18/24 Rx tablet (Nitrostat) pain #25 tabs docusate sodium 100 mg capsule 100 mg PO PRN PRN constipation 06/16/23 04/18/24 History levocetirizine 5 mg tablet 5 mg PO DAILY 06/16/23 04/18/24 History amlodipine 10 mg tablet See Rx Instructions .Route 08/09/23 04/18/24 Rx .COMPLEX #28 tabs lisinopril 5 mg tablet 5 mg PO DAILY #90 tabs 09/07/23 04/18/24 Rx metoprolol tartrate 25 mg tablet 12.5 mg (1/2 x 25 mg) PO BID #30 09/07/23 04/18/24 Rx tabs calcium 500 mg tablet 500 mg PO BID 10/17/23 04/18/24 History tiotropium 2.5 mcg-olodaterol 2.5 2 puff inhalation DAILY 10/25/23 04/18/24 History mcg/actuation mist for inhalation (Stiolto Respimat) ferrous fumarate 325 mg (106 mg 325 mg PO QDAY 03/06/24 04/18/24 History iron) tablet sucralfate 1 gram tablet 1 g PO BID #30 tabs 03/06/24 04/18/24 Rx cholecalciferol (vitamin D3) 50 50 mcg PO QDAY 04/18/24 04/18/24 History mcg (2,000 unit) capsule red yeast rice 600 mg tablet 600 mg PO QDAY 04/18/24 04/18/24 History Have you fallen in the past year?: No [facility] History [facility] Arterial vascular disease Bilateral buttock pain Lumbar back pain Wears glasses Cancer Insulin dependent diabetes mellitus Arthritis Walker as ambulation aid Ambulates with cane Bladder disease High cholesterol Back pain Seizures History of hiatal hernia History of diverticulitis Gastric reflux History of heart attack History of irregular heartbeat Cardiology follow-up encounter History of echocardiogram History of stress test Dehydration Fecal impaction of colon Abdominal pain Nausea and vomiting Coronary atherosclerosis Ischemic stroke GERD (gastroesophageal reflux disease) Pancreatitis Chronic pain Former smoker Sternum pain History of CVA (cerebrovascular accident) (09/2014) Atherosclerosis of coronary artery of [place] heart without angina pectoris History of non-ST elevation myocardial infarction (NSTEMI) (06/2018) Essential (primary) hypertension Overactive bladder Anxiety Tobacco abuse Diabetes Hyperlipidemia Surgical History History of sinus surgery History of left heart catheterization (05/28/18) H/O coronary artery bypass surgery (05/30/18) Social History household members: none Smoking Status: Former smoker alcohol intake: current alcohol intake frequency: holidays/special occasions only substance use type: does not use HPI HPI Chief Complaint: establish care- diabetes Details: LAYLA HIGUERA, is a 73 F who presents to the office today for eval (more content not included)... Normal [facility] Chest PA and Lateralon 03-19 Chest PA and Lateral [facility] Imaging Services [address] [place], [place] [id number] Chest PA and Lateral MR#: [id number] Acct: [id number] Name: LAYLA HIGUERA Rep #: [id number] : 1950 F 73 From: Jim love DO PCP: GABY Jewell Status: REG CLI Study: Chest PA and Lateral Date of Exam: 03/19/24 Exam# [id number] Ordering Dr: Ximena Sylvester [id number] EXAM: XR CHEST, 2 VIEWS CLINICAL INDICATION: ASSESS LUNGS FOR ABNORMALITIES TECHNIQUE: Frontal and lateral views of the chest. COMPARISON: 02/23/2021 FINDINGS: LUNGS AND PLEURAL SPACES: Hyperinflated lungs perhaps secondary to COPD without evidence of focal pneumonia or effusion. No pneumothorax. HEART: Status post CABG. No cardiomegaly. MEDIASTINUM: Central airways and mediastinal contour are unremarkable. BONES/JOINTS: Median sternotomy. Degenerative changes in the spine and shoulders. No acute fracture. SOFT TISSUES: No significant abnormality. VASCULATURE: Atherosclerosis. RAD/Chest PA and Lateral IMPRESSION: 1. Hyperinflated lungs perhaps secondary to COPD without evidence of focal pneumonia or effusion. 2. Status post CABG. No cardiomegaly. Electronically Signed: Jim Clifford DO at 21:40 EDT , CC: GABY Sylvester [employer]: Signed Normal [facility] L/S Spine Min 4 Views03-05 L/S Spine Min 4 Views [facility] Imaging Services [address] [place] [address] L/S Spine Min 4 Views MR#: [id number] Acct: [id number] Name: LAYLA HIGUERA Rep #: [id number] : 1950 F 73 From: Jim love DO PCP: GABY Jewell Status: REG CLI Study: L/S Spine Min 4 Views Date of Exam: 03/19/24 Exam# [id number] Ordering Dr: Ximena Sylvester [id number] EXAM: XR LUMBOSACRAL SPINE, 4 OR 5 VIEWS CLINICAL INDICATION: ASSESS VERTEBRAL ALIGNMENT AND DISC SPACE TECHNIQUE: Frontal, lateral and bilateral oblique views of the lumbar spine. COMPARISON: Chest radiograph, 03/19/2024 and lumbar spine radiographs, 12/27/2022. FINDINGS: VERTEBRAE: Maintained lumbar lordosis. Multilevel facet arthrosis and endplate osteophytosis. Approximately 26 degrees apex right lumbar curvature centered at L3. No discrete evidence of an acute fracture or spondylolisthesis. SACRUM/COCCYX: SI joint arthrosis. OTHER BONES/JOINTS: Median sternotomy partially visualized. DISC SPACES: Multilevel intervertebral disc height loss. VASCULATURE: Atherosclerosis. GASTROINTESTINAL TRACT: Bowel gas pattern appears normal. Included bowel gas pattern is non-obstructive. RAD/L/S Spine Min 4 Views IMPRESSION: 1. No discrete evidence of an acute fracture or spondylolisthesis. Multilevel degenerative change. 2. Approximately 26 degrees apex right lumbar curvature centered at L3. Electronically Signed: Jim Clifford DO at 21:27 EDT , CC: GABY Sylvester [employer]: Signed Normal [facility] ANTINUCLEAR ANTIBODIES DIREC Ton 03-07-2024 QUINCY,DIRECT Negative Normal Negative [facility] Comment on above: Result Comment: Perf ormed at: [employer] [id number] Belt Notcher: John Lopez PhD, Phone: [phone] Performed By: #### L 863.9093, L500.4050, L503.6620, L4600.0100, L100.0100, L300.8000, L3100.5475, L505.7010, L101.9900 #### [facility] [address] [place], [place], [address] CCP IgG Antibodieson 024 CCP IgG Ab. 5 units Normal 0-19 [facility] Comment on above: Result Comment: Nega tive <20 Weak positive 20 - 39 Moderate positive 40 - 59 Strong positive >59 [facility] at: [facility] [address] [place], [place] [id number] Belt Notcher: John Lopez PhD, Phone: [phone] Performed By: #### L 501.6710, L500.4050, L503.6620, L4600.0100, L100.0100, L300.8000, L3100.5475, L505.7010, L101.9900 #### [facility] [address] [place], [address] Gastroenterology Visit Repor ton 03-06-2024 Gastroenterology Visit Report [facility] [address] [place] [address] OFFICE VISIT Date of Service: 03/06/24 MR#: [id number] Acct: [id number] Name: LAYLA HIGUERA Rep #: [id number] : 1950 Provider: THERESA Camp Age/Sex: 73/F Location[place] [facility] [place] Status: Signed Intake Vital Signs 10/31/23 14:38 Height 4 ft 11 in Intake Visit Reasons: HIDA scan results Chief Complaint: f/u Allergies codeine Allergy (Verified 12/04/23 15:46) Other Penicillins Allergy (Verified 12/04/23 15:46) Swelling Sulfa (Sulfonamide Antibiotics) Allergy (Verified 12/04/23 15:46) Swelling diphenhydramine (From Benadryl) Adverse Reaction (Intermediate, Verified 12/04/23 15:46) Other acetaminophen (From Tylenol) Adverse Reaction (Verified 12/04/23 15:46) NEEDS FOLLOW-UP metoclopramide (From Reglan) Adverse Reaction (Verified 12/04/23 15:46) Other Medications ???Medication ???Instructions ???Recorded ???Confirmed ???Type aspirin 81 mg tablet,delayed 81 mg PO DAILY@0800 Heart health 06/14/18 03/06/24 History release insulin glargine 100 unit/mL (3 50 unit subcut QHS 07/15/21 03/06/24 History mL) subcutaneous pen (Lantus Solostar U-100 Insulin) citalopram 10 mg tablet (Celexa) 20 mg PO DAILY 08/27/21 03/06/24 History insulin aspart U-100 100 unit/mL 17 unit subcut TID 09/16/21 03/06/24 History (3 mL) subcutaneous pen (Novolog FlexPen U-100 Insulin aspart) calcium carbonate-vit A and D 1 tab PO DAILY 01/31/22 03/06/24 History tablet famotidine 40 mg tablet 40 mg PO DAILY 07/27/22 03/06/24 History omeprazole 40 mg capsule,delayed 40 mg PO DAILY #90 caps 10/13/22 03/06/24 Rx release nitroglycerin 0.4 mg sublingual 0.4 mg sublingual Q5-15M PRN chest 04/12/23 03/06/24 Rx tablet (Nitrostat) pain #25 tabs docusate sodium 100 mg capsule 100 mg PO PRN PRN constipation 06/16/23 03/06/24 History levocetirizine 5 mg tablet 5 mg PO DAILY 06/16/23 03/06/24 History amlodipine 10 mg tablet See Rx Instructions .Route 08/09/23 03/06/24 Rx .COMPLEX #28 tabs lisinopril 5 mg tablet 5 mg PO DAILY #90 tabs 09/07/23 03/06/24 Rx metoprolol tartrate 25 mg tablet 12.5 mg (1/2 x 25 mg) PO BID #30 09/07/23 03/06/24 Rx tabs calcium 500 mg tablet 500 mg PO BID 10/17/23 03/06/24 History tiotropium 2.5 mcg-olodaterol 2.5 2 puff inhalation DAILY 10/25/23 03/06/24 History mcg/actuation mist for inhalation (Stiolto Respimat) ferrous fumarate 325 mg (106 mg 325 mg PO QDAY 03/06/24 03/06/24 History iron) tablet rifaximin 550 mg tablet (Xifaxan) 550 mg PO TID 2 weeks #42 tabs 03/06/24 03/06/24 Rx sucralfate 1 gram tablet 1 g PO BID #30 tabs 03/06/24 03/06/24 Rx Have you fallen in the past year?: No [facility] Medical History Current use of long term care administrator anticoagulation Arterial vascular disease Bilateral buttock pain Lumbar back pain Wears glasses Cancer Insulin dependent diabetes mellitus Arthritis Walker as ambulation aid Ambulates with cane Bladder disease High cholesterol Back pain Seizures History of hiatal hernia History of diverticulitis Gastric reflux History of heart attack History of irregular heartbeat Cardiology follow-up encounter History of echocardiogram History of stress test Dehydration Fecal impaction of colon Abdominal pain Nausea and vomiting Coronary atherosclerosis Ischemic stroke GERD (gastroesophageal reflux disease) Pancreatitis Chronic pain Former smoker Sternum pain History of CVA (cerebrovascular accident) (09/2014) Atherosclerosis of coronary artery of [place] heart without angina pectoris History of non-ST elevation myocardial infarction (NSTEMI) (06/2018) Essential (primary) hypertension Overactive bladder Anxiety Tobacco abuse Diabetes Hyperlipidemia Surgical History History of sinus surgery History of left heart catheterization (05/28/18) H/O coronary artery bypass surgery (05/30/18) Social History household members: none Smoking Status: Former smoker alcohol intake: current alcohol intake frequency: holidays/special occasions only substance use type: does not use HPI HPI Chief Complaint: f/u Details: LAYLA GREENLIBERTY, is a 73 F who presents to the office today for f/u PMH includes hyperlipidemia; HTN; DM; CVA; NSTEMI; Ischemic stroke.? [facility] hospitalization 9.15.21-9.17.21 for UTI, N/V, CP, bacteremia. [facility] hospitalization 9.21.21- 9.29.21 for TEODORO. ??? CT abd/pel 9.15.21???with low attenuation along falciform ligament consistent with focal fatty sparing; layering sludge of gallbladder, possibly tiny calculi; small hiatal hernia; colonic diverticulosis; stable wall thic (more content not included)... Normal [facility] BNP,B-Type NATRIURETIC PEPTI Lluvia 03-05-2024 Natriuretic peptide B (Bld) [Mass/Vol] pg/mL Normal 0-100 [facility] Comment on above: Performed By: #### L 501.6710, L500.4050, L503.6620, L4600.0100, L100.0100, L300.8000, L3100.5475, L505.7010, L101.9900 #### [facility] [address] [place], [address] CBC W/Diff, Automatedon 10-0 1-2023 Absolute Lymph 2.62 X10 3/uL Normal 0.83-4.51 [facility] Comment on above: Performed By: #### L 501.6710, L500.4050, L503.6620, L4600.0100, L100.0100, L300.8000, L3100.5475, L505.7010, L101.9900 #### [facility] [address] [place], [address] Absolute Neut 3.1 X10 3/uL Normal 2.0-7.7 [facility] Comment on above: Performed By: #### L 501.6710, L500.4050, L503.6620, L4600.0100, L100.0100, L300.8000, L3100.5475, L505.7010, L101.9900 #### [facility] [address] [place], [address] Basophils/100 WBC (Bld) 0.9 % Normal 0-1 [facility] Comment on above: Performed By: #### L 501.6710, L500.4050, L503.6620, L4600.0100, L100.0100, L300.8000, L3100.5475, L505.7010, L101.9900 #### [facility] [address] [place], [address] Eosinophils/100 WBC (Bld) 2.9 % Normal 0-5 [facility] Comment on above: Performed By: #### L 501.6710, L500.4050, L503.6620, L4600.0100, L100.0100, L300.8000, L3100.5475, L505.7010, L101.9900 #### [facility] [address] [place], [place], [phone] ([phone] Erythrocyte distribution width (RBC) [Ratio] 13.9 % Normal 11.6-14.6 [facility] Comment on above: Performed By: #### L 501.6710, L500.4050, L503.6620, L4600.0100, L100.0100, L300.8000, L3100.5475, L505.7010, L101.9900 #### [facility] [address] [place], [address] Hematocrit (Bld) [Volume fraction] 37.4 % Normal 37-47 [facility] Comment on above: Performed By: #### L 501.6710, L500.4050, L503.6620, L4600.0100, L100.0100, L300.8000, L3100.5475, L505.7010, L101.9900 #### [facility] [address] [place], [address] (066) Hemoglobin (Bld) [Mass/Vol] 11.9 g/dL Low 12.0-15. 0 [facility] Comment on above: Performed By: #### L 501.6710, L500.4050, L503.6620, L4600.0100, L100.0100, L300.8000, L3100.5475, L505.7010, L101.9900 #### [facility] [address] [place], [place], [phone] (198) IG% 0.200 Normal 0.0-0.9 [facility] Comment on above: Result Comment: IG% - Immature Granulocytes (promyelocytes, myelocytes and metamyelocytes) > 1% indicates that a LEFT SHIFT is Present. Performed By: #### L 501.6710, L500.4050, L503.6620, L4600.0100, L100.0100, L300.8000, L3100.5475, L505.7010, L101.9900 #### [facility] [address] [place], [place], [phone] ([phone] Lymphocytes/100 WBC (Bld) 40.2 % Normal 19-41 [facility] Comment on above: Performed By: #### L 501.6710, L500.4050, L503.6620, L4600.0100, L100.0100, L300.8000, L3100.5475, L505.7010, L101.9900 #### [facility] [address] [place], [address] MCH (RBC) [Entitic mass] 28.1 pg Normal 27.0-32.0 [facility] Comment on above: Performed By: #### L 501.6710, L500.4050, L503.6620, L4600.0100, L100.0100, L300.8000, L3100.5475, L505.7010, L101.9900 #### [facility] [address] [place], [address] MCHC (RBC) [Mass/Vol] 31.8 g/dL Low 32-36 [facility] Comment on above: Performed By: #### L 501.6710, L500.4050, L503.6620, L4600.0100, L100.0100, L300.8000, L3100.5475, L505.7010, L101.9900 #### [facility] [address] [place], [address] MCV (RBC) [Entitic vol] 88.4 fL Normal 81-99 [facility] Comment on above: Performed By: #### L 501.6710, L500.4050, L503.6620, L4600.0100, L100.0100, L300.8000, L3100.5475, L505.7010, L101.9900 #### [facility] [address] [place], [address] Monocytes/100 WBC (Bld) 8.4 % Normal 0-10 [facility] Comment on above: Performed By: #### L 501.6710, L500.4050, L503.6620, L4600.0100, L100.0100, L300.8000, L3100.5475, L505.7010, L101.9900 #### [facility] [address] [place], [address] Neutrophils/100 WBC (Bld) 47.4 % Normal 47-70 [facility] Comment on above: Performed By: #### L 501.6710, L500.4050, L503.6620, L4600.0100, L100.0100, L300.8000, L3100.5475, L505.7010, L101.9900 #### [facility] [address] [place], [address] Nucleated RBC (Bld) [#/Vol] 0 10*3/uL Normal 0-5 [facility] Comment on above: Performed By: #### L 501.6710, L500.4050, L503.6620, L4600.0100, L100.0100, L300.8000, L3100.5475, L505.7010, L101.9900 #### [facility] [address] [place], [address] Platelet mean volume (Bld) [Entitic vol] 11.9 fL Normal 6.2-12.0 [facility] Comment on above: Performed By: #### L 501.6710, L500.4050, L503.6620, L4600.0100, L100.0100, L300.8000, L3100.5475, L505.7010, L101.9900 #### [facility] [address] [place], [address] Platelets (Bld) [#/Vol] 258 10*3/uL Normal 150-450 [facility] Comment on above: Performed By: #### L 501.6710, L500.4050, L503.6620, L4600.0100, L100.0100, L300.8000, L3100.5475, L505.7010, L101.9900 #### [facility] [address] [place], [address] RBC (Bld) [#/Vol] 4.23 10*6/uL Normal 4.2-5.[address] [facility] Comment on above: Performed By: #### L 501.6710, L500.4050, L503.6620, L4600.0100, L100.0100, L300.8000, L3100.5475, L505.7010, L101.9900 #### [facility] [address] [place], [address] RDW SD 45.0 fl High 35.1-43.9 [facility] Comment on above: Performed By: #### L 501.6710, L500.4050, L503.6620, L4600.0100, L100.0100, L300.8000, L3100.5475, L505.7010, L101.9900 #### [facility] [address] [place], [address] WBC (Bld) [#/Vol] 6.5 10*3/uL Normal 4.4-11.0 [facility] Comment on above: Performed By: #### L 501.6710, L500.4050, L503.6620, L4600.0100, L100.0100, L300.8000, L3100.5475, L505.7010, L101.9900 #### [facility] [address] [place], [address] CRPon 03-05-2024 C-REACTIVE PROT < 2.90 Normal 0.0-3.0 [facility] Comment on above: Result Comment: C-Re active Protein (CRP) provides useful information for the diagnosis, therapy and monitoring of inflammatory processes and associated diseases. For the evaluation of Relative Risk for Cardiovascular Disease, a High Sensitivity CRP (HSCRP) should be ordered. Performed By: #### L 501.6710, L500.4050, L503.6620, L4600.0100, L100.0100, L300.8000, L3100.5475, L505.7010, L101.9900 #### [facility] [address] [place], [address] Comprehensive Metabolic Prof ilon 03-05-2024 Albumin [Mass/Vol] 3.3 g/dL Normal 3.2-5.0 [facility] Comment on above: Performed By: #### L 501.6710, L500.4050, L503.6620, L4600.0100, L100.0100, L300.8000, L3100.5475, L505.7010, L101.9900 #### [facility] [address] [place], [address] Albumin/Globulin [Mass ratio] 0.8 {ratio} Low 0.9-2.4 [facility] Comment on above: Performed By: #### L 501.6710, L500.4050, L503.6620, L4600.0100, L100.0100, L300.8000, L3100.5475, L505.7010, L101.9900 #### [facility] [address] [place], [address] ALK P 81 U/L Normal 45-117 [facility] Comment on above: Performed By: #### L 501.6710, L500.4050, L503.6620, L4600.0100, L100.0100, L300.8000, L3100.5475, L505.7010, L101.9900 #### [facility] [address] [place], [address] ALT [Catalytic activity/Vol] 20 U/L Normal 13-56 [facility] Comment on above: Performed By: #### L 501.6710, L500.4050, L503.6620, L4600.0100, L100.0100, L300.8000, L3100.5475, L505.7010, L101.9900 #### [facility] [address] [place], [address] AST [Catalytic activity/Vol] 8 U/L Low 15-37 [facility] Comment on above: Performed By: #### L 501.6710, L500.4050, L503.6620, L4600.0100, L100.0100, L300.8000, L3100.5475, L505.7010, L101.9900 #### [facility] [address] [place], [address] Bilirubin [Mass/Vol] 0.20 mg/dL Normal 0.20-1.00 [facility] Comment on above: Result Comment: For patients on eltrombopag therapy, use of Dimension [place] TBIL is not recommended. Performed By: #### L 501.6710, L500.4050, L503.6620, L4600.0100, L100.0100, L300.8000, L3100.5475, L505.7010, L101.9900 #### [facility] [address] [place], [address] BUN/CRE 21.8 RATIO High 10-20 [facility] Comment on above: Performed By: #### L 501.6710, L500.4050, L503.6620, L4600.0100, L100.0100, L300.8000, L3100.5475, L505.7010, L101.9900 #### [facility] [address] [place], [address] CA,Total 9.2 mg/dL Normal 8.5-10.1 [facility] Comment on above: Performed By: #### L 501.6710, L500.4050, L503.6620, L4600.0100, L100.0100, L300.8000, L3100.5475, L505.7010, L101.9900 #### [facility] [address] [place], [address] Chloride [Moles/Vol] 104 mmol/L Normal 98-107 [facility] Comment on above: Performed By: #### L 501.6710, L500.4050, L503.6620, L4600.0100, L100.0100, L300.8000, L3100.5475, L505.7010, L101.9900 #### [facility] [address] [place], [address] CO2 [Moles/Vol] 26.0 mmol/L Normal 21.0-32.0 [facility] Comment on above: Performed By: #### L 501.6710, L500.4050, L503.6620, L4600.0100, L100.0100, L300.8000, L3100.5475, L505.7010, L101.9900 #### [facility] [address] [place], [address] Creatinine [Mass/Vol] 0.87 mg/dL Normal 0.55-1.02 [facility] Comment on above: Result Comment: The validity of the calculated GFR GFRAA in patients over 70 years has not been determined. Clinical correlation is essential. Performed By: #### L 501.6710, L500.4050, L503.6620, L4600.0100, L100.0100, L300.8000, L3100.5475, L505.7010, L101.9900 #### [facility] [address] [place], [address] EST GFR - AA 82 mL/min Normal >60 [facility] Comment on above: Result Comment: Afri can Filipino GFR Calc Performed By: #### L 501.6710, L500.4050, L503.6620, L4600.0100, L100.0100, L300.8000, L3100.5475, L505.7010, L101.9900 #### [facility] [address] [place], [address] GAP 6 Normal 5-15 [facility] Comment on above: Performed By: #### L 501.6710, L500.4050, L503.6620, L4600.0100, L100.0100, L300.8000, L3100.5475, L505.7010, L101.9900 #### [facility] [address] [place], [address] GFR/1.73 sq M.predicted among non-blacks MDRD (S/P/Bld) [Vol rate/Area] 67 mL/min/{1.73_m2} Normal >60 [facility] Comment on above: Result Comment: Non- GFR Calc Performed By: #### L 501.6710, L500.4050, L503.6620, L4600.0100, L100.0100, L300.8000, L3100.5475, L505.7010, L101.9900 #### [facility] [address] [place], [address] Globulin (S) [Mass/Vol] 4.0 g/dL Normal 2.2-4.2 [facility] Comment on above: Performed By: #### L 501.6710, L500.4050, L503.6620, L4600.0100, L100.0100, L300.8000, L3100.5475, L505.7010, L101.9900 #### [facility] [address] [place], [address] Glucose [Mass/Vol] 170 mg/dL High 74-106 [facility] Comment on above: Result Comment: Fast ing Glucose result greater than or equal to 126 mg/dL suggests DIABETES MELLITUS per A.D.A. criteria. Performed By: #### L 501.6710, L500.4050, L503.6620, L4600.0100, L100.0100, L300.8000, L3100.5475, L505.7010, L101.9900 #### [facility] [address] [place], [address] Potassium [Moles/Vol] 4.0 mmol/L Normal 3.5-5.1 [facility] Comment on above: Performed By: #### L 501.6710, L500.4050, L503.6620, L4600.0100, L100.0100, L300.8000, L3100.5475, L505.7010, L101.9900 #### [facility] [address] [place], [address] Sodium [Moles/Vol] 136 mmol/L Normal 136-145 [facility] Comment on above: Performed By: #### L 501.6710, L500.4050, L503.6620, L4600.0100, L100.0100, L300.8000, L3100.5475, L505.7010, L101.9900 #### [facility] [address] [place], [address] T PROT 7.3 g/dL Normal 6.4-8.2 [facility] Comment on above: Performed By: #### L 501.6710, L500.4050, L503.6620, L4600.0100, L100.0100, L300.8000, L3100.5475, L505.7010, L101.9900 #### [facility] [address] [place], [address] Urea nitrogen [Mass/Vol] 19 mg/dL High 7-18 [facility] Comment on above: Performed By: #### L 501.6710, L500.4050, L503.6620, L4600.0100, L100.0100, L300.8000, L3100.5475, L505.7010, L101.9900 #### [facility] [address] [place], [address] D-Dimer Quantitative (DVT/PE )on 03-05-2024 D-DIMER QUANT 1.40 FEU/ug/m Invalid Interpretation Code 0.27-0.49 [facility] Comment on above: Order Comment: CRITI STEPHANIE VALUE CALLED TO XIMENA SYLVESTER 03/05/24 1845 Tere Mccann. RESULTS READ BACK BY SAME. Result Comment: D-Di elton ELEVATED (>0.49): Additional studies and clinical assessments are indicated to conclude diagnosis of: Deep Vein Thrombosis (DVT) or Pulmonary Embolism (PE) Performed By: #### L 501.6710, L500.4050, L503.6620, L4600.0100, L100.0100, L300.8000, L3100.5475, L505.7010, L101.9900 #### [facility] [address] [place], [address] Erythrocyte Sed Rateon 03-05 SED RATE 38 mm/hr High 0-30 [facility] Comment on above: Performed By: #### L 501.6710, L500.4050, L503.6620, L4600.0100, L100.0100, L300.8000, L3100.5475, L505.7010, L101.9900 #### [facility] [address] [place], [address] Rheumatoid Factoron 03-05-20 24 RHEUMATOID FAC < 10.0 Normal <15 [facility] Comment on above: Performed By: #### L 501.6710, L500.4050, L503.6620, L4600.0100, L100.0100, L300.8000, L3100.5475, L505.7010, L101.9900 #### [facility] [address] [place], [address] CBC W/Diff, Automatedon 08-0 Absolute Lymph 2.70 X10 3/uL Normal 0.83-4.51 [facility] Comment on above: Performed By: #### L 501.6710, L500.4050, L503.6620, L4600.0100, L100.0100, L300.8000, L3100.5475, L505.7010, L101.9900 #### [facility] [address] [place], [address] Absolute Neut 2.8 X10 3/uL Normal 2.0-7.7 [facility] Comment on above: Performed By: #### L 501.6710, L500.4050, L503.6620, L4600.0100, L100.0100, L300.8000, L3100.5475, L505.7010, L101.9900 #### [facility] [address] [place], [address] Basophils/100 WBC (Bld) 1.1 % High 0-1 [facility] Comment on above: Performed By: #### L 501.6710, L500.4050, L503.6620, L4600.0100, L100.0100, L300.8000, L3100.5475, L505.7010, L101.9900 #### [facility] [address] [place], [address] Eosinophils/100 WBC (Bld) 3.0 % Normal 0-5 [facility] Comment on above: Performed By: #### L 501.6710, L500.4050, L503.6620, L4600.0100, L100.0100, L300.8000, L3100.5475, L505.7010, L101.9900 #### [facility] [address] [place], [address] Erythrocyte distribution width (RBC) [Ratio] 13.8 % Normal 11.6-14.6 [facility] Comment on above: Performed By: #### L 501.6710, L500.4050, L503.6620, L4600.0100, L100.0100, L300.8000, L3100.5475, L505.7010, L101.9900 #### [facility] [address] [place], [address] Hematocrit (Bld) [Volume fraction] 39.2 % Normal 37-47 [facility] Comment on above: Performed By: #### L 501.6710, L500.4050, L503.6620, L4600.0100, L100.0100, L300.8000, L3100.5475, L505.7010, L101.9900 #### [facility] [address] [place], [address] Hemoglobin (Bld) [Mass/Vol] 12.1 g/dL Normal 12.0-15. 0 [facility] Comment on above: Performed By: #### L 501.6710, L500.4050, L503.6620, L4600.0100, L100.0100, L300.8000, L3100.5475, L505.7010, L101.9900 #### [facility] [address] [place], [address] IG% 0.200 Normal 0.0-0.9 [facility] Comment on above: Result Comment: IG% - Immature Granulocytes (promyelocytes, myelocytes and metamyelocytes) > 1% indicates that a LEFT SHIFT is Present. Performed By: #### L 501.6710, L500.4050, L503.6620, L4600.0100, L100.0100, L300.8000, L3100.5475, L505.7010, L101.9900 #### [facility] [address] [place], [address] Lymphocytes/100 WBC (Bld) 42.9 % High 19-41 [facility] Comment on above: Performed By: #### L 501.6710, L500.4050, L503.6620, L4600.0100, L100.0100, L300.8000, L3100.5475, L505.7010, L101.9900 #### [facility] [address] [place], [address] MCH (RBC) [Entitic mass] 27.4 pg Normal 27.0-32.0 [facility] Comment on above: Performed By: #### L 501.6710, L500.4050, L503.6620, L4600.0100, L100.0100, L300.8000, L3100.5475, L505.7010, L101.9900 #### [facility] [address] [place], [address] MCHC (RBC) [Mass/Vol] 30.9 g/dL Low 32-36 [facility] Comment on above: Performed By: #### L 501.6710, L500.4050, L503.6620, L4600.0100, L100.0100, L300.8000, L3100.5475, L505.7010, L101.9900 #### [facility] [address] [place], [address] MCV (RBC) [Entitic vol] 88.9 fL Normal 81-99 [facility] Comment on above: Performed By: #### L 501.6710, L500.4050, L503.6620, L4600.0100, L100.0100, L300.8000, L3100.5475, L505.7010, L101.9900 #### [facility] [address] [place], [address] Monocytes/100 WBC (Bld) 8.3 % Normal 0-10 [facility] Comment on above: Performed By: #### L 501.6710, L500.4050, L503.6620, L4600.0100, L100.0100, L300.8000, L3100.5475, L505.7010, L101.9900 #### [facility] [address] [place], [address] Neutrophils/100 WBC (Bld) 44.5 % Low 47-70 [facility] Comment on above: Performed By: #### L 501.6710, L500.4050, L503.6620, L4600.0100, L100.0100, L300.8000, L3100.5475, L505.7010, L101.9900 #### [facility] [address] [place], [address] Nucleated RBC (Bld) [#/Vol] 0 10*3/uL Normal 0-5 [facility] Comment on above: Performed By: #### L 501.6710, L500.4050, L503.6620, L4600.0100, L100.0100, L300.8000, L3100.5475, L505.7010, L101.9900 #### [facility] [address] [place], [address] Platelet mean volume (Bld) [Entitic vol] 12.0 fL Normal 6.2-12.0 [facility] Comment on above: Performed By: #### L 501.6710, L500.4050, L503.6620, L4600.0100, L100.0100, L300.8000, L3100.5475, L505.7010, L101.9900 #### [facility] [address] [place], [address] Platelets (Bld) [#/Vol] 253 10*3/uL Normal 150-450 [facility] Comment on above: Performed By: #### L 501.6710, L500.4050, L503.6620, L4600.0100, L100.0100, L300.8000, L3100.5475, L505.7010, L101.9900 #### [facility] [address] [place], [address] RBC (Bld) [#/Vol] 4.41 10*6/uL Normal 4.2-5.[address] [facility] Comment on above: Performed By: #### L 501.6710, L500.4050, L503.6620, L4600.0100, L100.0100, L300.8000, L3100.5475, L505.7010, L101.9900 #### [facility] [address] [place], [place], [id number] (181) RDW SD 45.1 fl High 35.1-43.9 [facility] Comment on above: Performed By: #### L 501.6710, L500.4050, L503.6620, L4600.0100, L100.0100, L300.8000, L3100.5475, L505.7010, L101.9900 #### [facility] [address] [place], [place], [id number] (064) WBC (Bld) [#/Vol] 6.3 10*3/uL Normal 4.4-11.0 [facility] Comment on above: Performed By: #### L 501.6710, L500.4050, L503.6620, L4600.0100, L100.0100, L300.8000, L3100.5475, L505.7010, L101.9900 #### [facility] [address] [place], [place], [phone] Comprehensive Metabolic Prof dcon 01-05-2024 Albumin [Mass/Vol] 3.4 g/dL Normal 3.2-5.0 [facility] [place] Comment on above: Performed By: #### L 501.6710, L500.4050, L503.6620, L4600.0100, L100.0100, L300.8000, L3100.5475, L505.7010, L101.9900 #### [facility] [address] [place], [place], [phone] ([phone]) Albumin/Globulin [Mass ratio] 0.8 {ratio} Low 0.9-2.4 [facility] Comment on above: Performed By: #### L 501.6710, L500.4050, L503.6620, L4600.0100, L100.0100, L300.8000, L3100.5475, L505.7010, L101.9900 #### [facility] [address] [place], [address] ALK P 84 U/L Normal 45-117 [facility] Comment on above: Performed By: #### L 501.6710, L500.4050, L503.6620, L4600.0100, L100.0100, L300.8000, L3100.5475, L505.7010, L101.9900 #### [facility] [address] [place], [address] ALT [Catalytic activity/Vol] 18 U/L Normal 13-56 [facility] Comment on above: Performed By: #### L 501.6710, L500.4050, L503.6620, L4600.0100, L100.0100, L300.8000, L3100.5475, L505.7010, L101.9900 #### [facility] [address] [place], [address] AST [Catalytic activity/Vol] 13 U/L Low 15-37 [facility] Comment on above: Performed By: #### L 501.6710, L500.4050, L503.6620, L4600.0100, L100.0100, L300.8000, L3100.5475, L505.7010, L101.9900 #### [facility] [address] [place], [address] Bilirubin [Mass/Vol] 0.30 mg/dL Normal 0.20-1.00 [facility] Comment on above: Result Comment: For patients on eltrombopag therapy, use of Dimension [place] TBIL is not recommended. Performed By: #### L 501.6710, L500.4050, L503.6620, L4600.0100, L100.0100, L300.8000, L3100.5475, L505.7010, L101.9900 #### [facility] [address] [place], [address] BUN/CRE 25.2 RATIO High 10-20 [facility] Comment on above: Performed By: #### L 501.6710, L500.4050, L503.6620, L4600.0100, L100.0100, L300.8000, L3100.5475, L505.7010, L101.9900 #### [facility] [address] [place], [address] CA,Total 8.9 mg/dL Normal 8.5-10.1 [facility] Comment on above: Performed By: #### L 501.6710, L500.4050, L503.6620, L4600.0100, L100.0100, L300.8000, L3100.5475, L505.7010, L101.9900 #### [facility] [address] [place], [address] Chloride [Moles/Vol] 105 mmol/L Normal 98-107 [facility] Comment on above: Performed By: #### L 501.6710, L500.4050, L503.6620, L4600.0100, L100.0100, L300.8000, L3100.5475, L505.7010, L101.9900 #### [facility] [address] [place], [address] CO2 [Moles/Vol] 27.0 mmol/L Normal 21.0-32.0 [facility] Comment on above: Performed By: #### L 501.6710, L500.4050, L503.6620, L4600.0100, L100.0100, L300.8000, L3100.5475, L505.7010, L101.9900 #### [facility] [address] [place], [address] Creatinine [Mass/Vol] 0.87 mg/dL Normal 0.55-1.02 [facility] Comment on above: Result Comment: The validity of the calculated GFR GFRAA in patients over 70 years has not been determined. Clinical correlation is essential. Performed By: #### L 501.6710, L500.4050, L503.6620, L4600.0100, L100.0100, L300.8000, L3100.5475, L505.7010, L101.9900 #### [facility] [address] [place], [address] EST GFR - AA 82 mL/min Normal >60 [facility] Comment on above: Result Comment: Afri can Filipino GFR Calc Performed By: #### L 501.6710, L500.4050, L503.6620, L4600.0100, L100.0100, L300.8000, L3100.5475, L505.7010, L101.9900 #### [facility] [address] [place], [address] GAP 6 Normal 5-15 [facility] Comment on above: Performed By: #### L 501.6710, L500.4050, L503.6620, L4600.0100, L100.0100, L300.8000, L3100.5475, L505.7010, L101.9900 #### [facility] [address] [place], [address] GFR/1.73 sq M.predicted among non-blacks MDRD (S/P/Bld) [Vol rate/Area] 67 mL/min/{1.73_m2} Normal >60 [facility] Comment on above: Result Comment: Non- GFR Calc Performed By: #### L 501.6710, L500.4050, L503.6620, L4600.0100, L100.0100, L300.8000, L3100.5475, L505.7010, L101.9900 #### [facility] [address] [place], [address] Globulin (S) [Mass/Vol] 4.1 g/dL Normal 2.2-4.2 [facility] Comment on above: Performed By: #### L 501.6710, L500.4050, L503.6620, L4600.0100, L100.0100, L300.8000, L3100.5475, L505.7010, L101.9900 #### [facility] [address] [place], [address] Glucose [Mass/Vol] 130 mg/dL High 74-106 [facility] Comment on above: Result Comment: Fast ing Glucose result greater than or equal to 126 mg/dL suggests DIABETES MELLITUS per A.D.A. criteria. Performed By: #### L 501.6710, L500.4050, L503.6620, L4600.0100, L100.0100, L300.8000, L3100.5475, L505.7010, L101.9900 #### [facility] [address] [place], [address] Potassium [Moles/Vol] 4.2 mmol/L Normal 3.5-5.1 [facility] Comment on above: Performed By: #### L 501.6710, L500.4050, L503.6620, L4600.0100, L100.0100, L300.8000, L3100.5475, L505.7010, L101.9900 #### [facility] [address] [place], [address] Sodium [Moles/Vol] 138 mmol/L Normal 136-145 [facility] Comment on above: Performed By: #### L 501.6710, L500.4050, L503.6620, L4600.0100, L100.0100, L300.8000, L3100.5475, L505.7010, L101.9900 #### [facility] [address] [place], [address] T PROT 7.5 g/dL Normal 6.4-8.2 [facility] Comment on above: Performed By: #### L 501.6710, L500.4050, L503.6620, L4600.0100, L100.0100, L300.8000, L3100.5475, L505.7010, L101.9900 #### [facility] [address] [place], [address] Urea nitrogen [Mass/Vol] 22 mg/dL High 7-18 [facility] Comment on above: Performed By: #### L 501.6710, L500.4050, L503.6620, L4600.0100, L100.0100, L300.8000, L3100.5475, L505.7010, L101.9900 #### [facility] [address] [place], [address] Ferritinon 01-05-2024 Ferritin [Mass/Vol] 41 ng/mL Normal 8-[address] [facility] Comment on above: Performed By: #### L 501.6710, L500.4050, L503.6620, L4600.0100, L100.0100, L300.8000, L3100.5475, L505.7010, L101.9900 #### [facility] [address] [place], [address] Ironon 01-05-2024 Iron [Mass/Vol] 56 ug/dL Normal 50-170 [facility] Comment on above: Performed By: #### L 501.6710, L500.4050, L503.6620, L4600.0100, L100.0100, L300.8000, L3100.5475, L505.7010, L101.9900 #### [facility] [address] [place], [address] Lipid Profileon 01-05-2024 Cholesterol [Mass/Vol] 269 mg/dL High 200 [facility] Comment on above: Result Comment: <200 mg/dL Desirable 200-240 mg/dL Borderline >240 mg/dL High Risk Performed By: #### L 501.6710, L500.4050, L503.6620, L4600.0100, L100.0100, L300.8000, L3100.5475, L505.7010, L101.9900 #### [facility] [address] [place], [address] Cholesterol in HDL [Mass/Vol] 42 mg/dL Normal [facility] Comment on above: Result Comment: The drugs N-Acetylcysteine and Metamizole may falsely depress this assay. Reference Range HDL <40 mg/dL Low HDL Cholesterol HDL >or= 60 mg/dL High HDL Cholesterol Performed By: #### L 501.6710, L500.4050, L503.6620, L4600.0100, L100.0100, L300.8000, L3100.5475, L505.7010, L101.9900 #### [facility] [address] [place], [address] Cholesterol in LDL [Mass/Vol] 197 mg/dL High 0-130 [facility] Comment on above: Performed By: #### L 501.6710, L500.4050, L503.6620, L4600.0100, L100.0100, L300.8000, L3100.5475, L505.7010, L101.9900 #### [facility] [address] [place], [address] Cholesterol in VLDL [Mass/Vol] 30 mg/dL Normal 5-40 [facility] Comment on above: Performed By: #### L 501.6710, L500.4050, L503.6620, L4600.0100, L100.0100, L300.8000, L3100.5475, L505.7010, L101.9900 #### [facility] [address] [place], [address] Triglyceride [Mass/Vol] 149 mg/dL Normal [facility] Comment on above: Result Comment: The drugs N-Acetylcysteine and Metamizole may falsely depress this assay. Serum Triglycerides Reference Interval Normal <150 mg/dL Borderline high 150 - 199 mg/dL High 200 - 499 mg/dL Very High > or = 500 mg/dL Performed By: #### L 501.6710, L500.4050, L503.6620, L4600.0100, L100.0100, L300.8000, L3100.5475, L505.7010, L101.9900 #### [facility] [address] [place], [address] T4 Free Directon 01-05-2024 T4 FREE DIRECT 0.92 ng/dL Normal 0.76-1.46 [facility] Comment on above: Performed By: #### L 501.6710, L500.4050, L503.6620, L4600.0100, L100.0100, L300.8000, L3100.5475, L505.7010, L101.9900 #### [facility] [address] [facility] [place], [address] Thyroid Stim Hormone (TSH)on 01-05-2024 TSH 2.66 uIU/mL Normal 0.358-3.74 [facility] Comment on above: Performed By: #### L 501.6710, L500.4050, L503.6620, L4600.0100, L100.0100, L300.8000, L3100.5475, L505.7010, L101.9900 #### [facility] [address] [place], [address] Vitamin B12on 01-05-2024 Cobalamin (Vitamin B12) [Mass/Vol] 1214 pg/mL High 211-911 [facility] Comment on above: Performed By: #### L 501.6710, L500.4050, L503.6620, L4600.0100, L100.0100, L300.8000, L3100.5475, L505.7010, L101.9900 #### [facility] [address] [place], [address] Vitamin D,25 Hydroxyon 01-04 Vitamin D 25-OH 37.7 ng/mL Normal [facility] Comment on above: Result Comment: Meche min D 25(OH) Status Range Deficiency <20 ng/mL (50nmol/L) Insufficiency 20 - 30 ng/mL (50 - 75 nmol/L) Sufficiency 30 - 100 ng/mL (75 - 250 nmol/L) Toxicity >100 ng/mL (>250 nmol/L) Performed By: #### L 501.6710, L500.4050, L503.6620, L4600.0100, L100.0100, L300.8000, L3100.5475, L505.7010, L101.9900 #### [facility] [address] [place], [place], [address] CNOVon 09-26-2023 CNOV Office Visit (OBGYWM) LAYLA HIGUERA ([id number]) 1950 F Date Time Provider Department 09/26/23 3:10 PM AGUSTINA HIRSCH OBGYWDomitila During your visit today, we recorded the following information about you: Blood pressure Weight 102/64 78.6 kg Agustina Hirsch MD 09/26/2023 3:45 PM Signed 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 Layla Higuera is a 73 year old female who presents for problem visit. HPI: Patient presents with vulvar irritation for 1 year. She reports taking florajens. She changes a pull up about 3 times per day. She is not using any creams currently. Also she has been told that she has prolapse. 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) Following CVA. CAD (coronary artery disease) COPD (chronic obstructive pulmonary disease) ([facility]) 03/18/2013 Stage 0. Normal FEV1 03/2013. Diabetes mellitus type II DVT (deep venous thrombosis) ([facility]) 09/2014 during hospitalization for CVA, bilateral legs and head Dysphagia due to recent stroke 09/2014 GERD (gastroesophageal reflux disease) Hyperlipidemia Hypertension Migraines NSTEMI (non-ST elevated myocardial infarction) (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 Stroke ([facility]) SUMMARY 10/14/2014 Ms Layla Higuera is a 64 year old with a PMH of HTN, DM2, COPD, CVA presenting with bilateral chest pain Weakness left sided 2nd to cva PAST SURGICAL HISTORY Procedure Laterality Date CABG (3) VEIN GRAFTS AND ARTERIAL GRAFT(S) 05/30/2018 CAROTID ENDARTERECTOMY Right 2015 COLONOSCOPY 09/2012 ESOPHAGOGASTRODUODEN OSCOPY TRANSORAL DIAGNOSTIC 09/2012 EGD PAST SURGICAL HISTORY OF 1974 explority of fallopian tubes PAST SURGICAL HISTORY OF 1998 cervical sterum SEPTOPLASTY 1998 FAMILY HISTORY Problem Relation Age of Onset Diabetes Mother Colon Cancer Mother Heart disease Father Diabetes Brother other (CABG) Brother other (esophageal cancer) Brother Asthma No Family History COPD No Family History Intersitial Lung Disease No Family History Social History Tobacco Use Smoking status: Former Packs/day: 1.00 Years: 40.00 Additional pack years: 0.00 Total pack years: 40.00 Types: Cigarettes Quit date: 09/04/2014 Years since quittin.0 Smokeless tobacco: Never Tobacco comments: Father smoked in childhood home. Vaping Use Vaping Use: Never used Substance Use Topics Alcohol use: No Drug use: No Current Outpatient Medications Medication Sig STIOLTO RESPIMAT 2.5-2.5 mcg/actuation inhale 2 puffs by mouth daily levocetirizine 5 mg tablet 5 mg. lisinopril (ZESTRIL) 5 mg tablet 5 mg. calcium carbonate (OS-STEPHANIE 500) 500 mg calcium (1,250 mg) tablet citalopram (CELEXA) 20 mg tablet famotidine (PEPCID) 40 mg tablet insulin needles, DISPOSABLE, (PEN NEEDLE) 31 gauge x 5/16 Use one needle per dose. 4 per day. blood sugar diagnostic (BLOOD GLUCOSE TEST) test strip Test blood sugar(s) 4 times daily. Dx: Type 2 DM - Uncontrolled E11.65 Insulin: Yes.Send to pt whatever meter and supplies are covered. Lancets lancets Test blood sugar(s) 4 times daily. Dx: Type 2 DM - Uncontrolled E11.65 Insulin: Yes Send to pt what ever meter and supplies are covered. docusate sodium (COLACE) 100 mg capsule Take 1 capsule by mouth twice daily. insulin glargine (LANTUS SOLOSTAR, BASAGLAR KWIKPEN) 100 unit/mL (3 mL) Inject 30 Units subcutaneously daily at bedtime. Adjust dose as directed insulin aspart U-100 (NOVOLOG FLEXPEN U-100 INSULIN) 100 unit/mL (3 mL) Inject 10 Units subcutaneously three times daily before meals. If Blood Glucose (mg/dL) is: Less than 110 Give 0 units 111-150 Give 0 units 151-200 Give 1 unit 201-250 Give 2 units 251-300 Give 3 units 301-350 Give 4 units 351-400 Give 5 units Greater than 400 Give 5 units and Notify Provider Notify provider if 2 consecutive blood glucose values in the previous 24 hours are greater than 250 mg/mL and there have been no changes to the insulin regimen in the previous 24 hours. metoprolol tartrate, short acting, (LOPRESSOR) 25 mg tablet Take 0.5 tablets by mouth every 12 hours. amLODIPine (NORVASC) 5 mg tablet Take 5 mg by mouth once daily. omeprazole (PRILOSEC) 40 mg capsule Take 1 capsule by mouth twice daily. Nebulizer Accessories kit Use with home nebulizer for albuterol alcohol swabs Apply 1 application to affected area as needed. Lancing Device misc 1 Each four times daily. Test blood sugar(s) 4 times daily. Dx: Type 2 DM - Uncontrolled E11.65 Insulin: Yes Send to pt what ever meter and supplies are covered. albutero (more content not included)... Normal [facility] Basophil percentageOrdered B y: Deshawn Camarena on 08-04-2023 Chloride [Moles/Vol] 110 mmol/L 98-107 [facility] Glucose [Mass/Vol] 108 mg/dL 74-106 [facility] Comment on above: Fasting Glucose resu lt from 100 to 125 mg/dL suggests IMPAIRED HOMEOSTASIS per A.D.A. criteria. Hemoglobin (Bld) [Mass/Vol] 12.2 g/dL 12.0-15. 0 [facility] Potassium [Moles/Vol] 4.0 mmol/L 3.5-5.1 [facility] Sodium [Moles/Vol] 140 mmol/L 136-145 [facility] WBC (Bld) [#/Vol] 6.4 10*3/uL 4.4-11.0 [facility] Determination of erythrocyte mean corpuscular volume (MCV)Ordered By: Deshawn Camarena on 08-04-2023 MCV (RBC) [Entitic vol] 89.8 fL 81-99 [facility] Erythrocyte distribution wid th ratioOrdered By: Deshawn Camarena on 08-04-2023 Erythrocyte distribution width (RBC) [Ratio] 14.0 % 11.6-14.6 [facility] Erythrocyte distribution wid th standard deviationOrdered By: Deshawn Camarena on 08-04-2023 Erythrocyte distribution width (RBC) [Entitic vol] 45.9 fL 35.1-43.9 [facility] Hematocrit Auto (Bld) [Volum e fraction]Ordered By: Deshawn Camarena on 08-04-2023 Hematocrit (Bld) [Volume fraction] 38.0 % 37-47 [facility] - Chemistry and C hemistry - challengeOrdered By: Deshawn Camarena on 08-04-2023 CO2 [Moles/Vol] 28.0 mmol/L 21.0-32.0 [facility] Urea nitrogen/Creatinine [Mass ratio] 24.9 mg/mg 10-20 [facility] - Hematology and Cell countsOrdered By: Deshawn Camarena on 08-04-2023 MCH (RBC) [Entitic mass] 28.8 pg 27.0-32.0 [facility] MCHC (RBC) [Mass/Vol] 32.1 g/dL 32-36 [facility] Platelet mean volume (Bld) [Entitic vol] 11.9 fL 6.2-12.0 [facility] Platelets (Bld) [#/Vol] 245 10*3/uL 150-450 [facility] No Panel InformationOrdered By: Deshawn Camarena on 08-04-2023 Estimated GFR (MDRD) Amer 85 mL/min >60 [facility] Comment on above: GFR Calc Estimated GFR (MDRD) Non-Af Amer 70 mL/min >60 [facility] Comment on above: Non- GFR Calc RBC Auto (Bld) [#/Vol]Ordere d By: Deshawn Camarena on 08-04-2023 RBC (Bld) [#/Vol] 4.23 10*6/uL 4.2-5.[address] [facility] Serum or plasma calcium yuniel urement (mass/volume)Ordered By: Deshawn Camarena on 08-04-2023 Calcium [Mass/Vol] 9.3 mg/dL 8.5-10.1 [facility] Serum or plasma creatinine m easurement (mass/volume)Ordered By: Deshawn Camarena on 08-04-2023 Creatinine [Mass/Vol] 0.84 mg/dL 0.55-1.02 [facility] Comment on above: The validity of the calculated GFR & GFRAA in patients over 70 years has not been determined. Clinical correlation is essential. Serum or plasma urea nitroge n measurement (mass/volume)Ordered By: Deshawn Camarena on 08-04-2023 Urea nitrogen [Mass/Vol] 21 mg/dL 7-18 [facility] Thin prep Papanicolaou smear with manual screeningOrdered By: Deshawn Camarena on 08-04-2023 Thin prep Papanicolaou smear with manual screening 2 5-15 [facility] XR HAND GENERAL 3V PA/LAT/OB L BILATERALon 03-09-2023 [facility] LUNG DIFFUSION CAPACITY (TAE O)on 02-21-2023 DLCO (ml/min/mmHg) 15.95 ml/min/mmHg [facility] DLCO/VA (ml/min/mmHg/L) 4.68 ml/min/mmHg/L [facility] AKC89-99% PRE (L/S) 0.89 L/S [facility] FEV1 PRE (L) 1.38 L [facility] FEV1/FVC PRE (%) 71 % [facility] FVC PRE (L) 1.94 L [facility] PEF PRE (L/S) 3.64 L/S [facility] VA (L) 3.41 L [facility] SPIROMETRY WITH DILATOR IF O BSTRUCTEDon 02-21-2023 [facility] Culture, urineOrdered By: Amos Green on 01-05-2023 Bacteria identified Cx Nom (U) Proteus mirabilis [facility] Culture, urineOrdered By: Amos Green on 12-20-2022 Bacteria identified Cx Nom (U) Proteus mirabilis [facility] Bacteria identified Cx Nom (U) Escherichia coli [facility] No Panel InformationOrdered By: Philip Drummond on 11-29-2022 Stool Calprotectin 107 ug/g 0-120 [facility] Comment on above: Concentration Interp retation Follow-Up< 5 - 50 ug/g Normal None>50 -120 ug/g Borderline Re-evaluate in 4-6 weeks >120 ug/g Abnormal Repeat as clinically indicatedPerformed at: [employer] [id number] Director: John Lopez PhD, Phone: [phone] at: [employer] [id number] Director: Ángel Jones MD, Phone: [phone] Stool Neutral Fats Normal . [facility] Comment on above: Normal (<60 Droplets /HPF) Stool Pancreatic Elastase 220 >200 [facility] Comment on above: Result Units: ug Karely st./g Severe Pancreatic Insufficiency: <100 Moderate Pancreatic Insufficiency: 100 - 200 Normal: >200Performed at: [employer] [id number] Director: Ángel Jones MD, Phone: [phone] Qualitative fecal fat or lip idsOrdered By: Philip Drummond on 11-29-2022 Fat Ql (Stl) Normal . [facility] Comment on above: Normal (<100 Droplet s/HPF) Stool lactoferrin detection by immunoassayOrdered By: Philip Drummond on 11-29-2022 Lactoferrin IA Ql (Stl) [facility] Absolute lymphocyte countOrd ered By: Philip Drummond on 11-15-2022 Lymphocytes Auto (Unsp spec) [#/Vol] 1.98 10*3/uL 0.83-4.51 [facility] Atypical perinuclear antineu trophil cytoplasmic antibodies measurementOrdered By: Philip Drummond on 11-15-2022 Neutrophil cytoplasmic Ab.perinuclear.atypical IF (S) [Titer] <1:20 titer Neg:<1:20 [facility] Comment on above: The atypical pANCA p attern has been observed in asignificant percentage of patients with ulcerative colitis,primary sclerosing cholangitis and autoimmune hepatitis.Performed at: [employer] [id number] Director: John Lopez PhD, Phone: [phone] at: [facility] [id number] Director: Ángel Jones MD, Phone: [phone] Basophil percentageOrdered B y: Philip Drummond on 11-15-2022 Basophil percentage < 0.2 AI 0.0-0.[address] [facility] Basophils/100 WBC (Bld) 0.5 % 0-1 [facility] Bilirubin [Mass/Vol] 0.30 mg/dL 0.20-1.00 [facility] Comment on above: For patients on eltr ombopag therapy, use of Dimension [place] TBIL is not recommended. Chloride [Moles/Vol] 104 mmol/L 98-107 [facility] Cholesterol [Mass/Vol] 168 mg/dL <200 [facility] Comment on above: <200 mg/dL Desirable 200-240 mg/dL Borderline >240 mg/dL High Risk Eosinophils/100 WBC (Bld) 1.6 % 0-5 [facility] Glucose [Mass/Vol] 212 mg/dL 74-106 [facility] Comment on above: Glucose result great er than or equal to 200 mg/dLsuggests DIABETES MELLITUS per A.D.A. criteria. LDH [Catalytic activity/Vol] 206 U/L 84-246 [facility] Neutrophils (Bld) [#/Vol] 4.9 10*3/uL 2.0-7.7 [facility] Neutrophils/100 WBC (Bld) 65.2 % 47-70 [facility] Potassium [Moles/Vol] 4.4 mmol/L 3.5-5.1 [facility] Protein [Mass/Vol] 7.9 g/dL 6.4-8.2 [facility] Sodium [Moles/Vol] 138 mmol/L 136-145 [facility] Triglyceride [Mass/Vol] 145 mg/dL <199 [facility] [place] Comment on above: The drugs N-Acetylcy steine and Metamizole may falsely depress this assay.Serum Triglycerides Reference Interval Normal <150 mg/dL Borderline high 150 - 199 mg/dL High 200 - 499 mg/dL Very High > or = 500 mg/dL WBC (Bld) [#/Vol] 7.4 10*3/uL 4.4-11.0 [facility] [place] Blood erythrocytes count (nu mber/volume)Ordered By: Philip Drummond on 11-15-2022 RBC (Bld) [#/Vol] 4.57 10*6/uL 4.2-5.[address] [facility] Blood hemoglobin measurement (mass/volume)Ordered By: Philip Drummond on 11-15-2022 Hemoglobin (Bld) [Mass/Vol] 12.9 g/dL 12.0-15. 0 [facility] Blood lymphocytes/100 leukoc ytesOrdered By: Philip Drummond on 11-15-2022 Lymphocytes/100 WBC (Bld) 26.6 % 19-41 [facility] Blood monocytes/100 leukocyt esOrdered By: Philip Drummond on 11-15-2022 Monocytes/100 WBC (Bld) 5.8 % 0-10 [facility] Blood platelet mean volumeOr dered By: Philip Drummond on 11-15-2022 Platelet mean volume (Bld) [Entitic vol] 12.4 fL 6.2-12.0 [facility] Determination of erythrocyte mean corpuscular volume (MCV)Ordered By: Philip Drummond on 11-15-2022 MCV (RBC) [Entitic vol] 89.9 fL 81-99 [facility] Erythrocyte sedimentation ra teOrdered By: Philip Drummond on 11-15-2022 ESR (Bld) [Velocity] 25 mm/h 0-30 [facility] Hematocrit Auto (Bld) [Volum e fraction]Ordered By: Philip Drummond on 11-15-2022 Hematocrit (Bld) [Volume fraction] 41.1 % 37-47 [facility] Interpretation of serum or p lasma protein pattern by immunofixation (narrative resultOrdered By: Philip Drummond on 11-15-2022 Protein Fractions Immunofixation Douglas [Interp] See comment [facility] Comment on above: Result: Not Observed Laboratory - Chemistry and C hemistry - challengeOrdered By: Philip Drummond on 11-15-2022 ALP [Catalytic activity/Vol] 86 U/L 45-117 [facility] ALT [Catalytic activity/Vol] 25 U/L 13-56 [facility] CO2 [Moles/Vol] 27.0 mmol/L 21.0-32.0 [facility] Globulin (S) [Mass/Vol] 4.1 g/dL 2.2-4.2 [facility] Urea nitrogen/Creatinine [Mass ratio] 26.9 mg/mg 10-20 [facility] Laboratory - Hematology and Cell countsOrdered By: Philip Drummond on 11-15-2022 Erythrocyte distribution width (RBC) [Entitic vol] 45.2 fL 35.1-43.9 [facility] [place] Erythrocyte distribution width (RBC) [Ratio] 13.8 % 11.6-14.6 [facility] Immature granulocytes/100 WBC (Bld) 0.300 % 0.0-0.9 [facility] Comment on above: IG% - Immature Granu locytes (promyelocytes, myelocytes and metamyelocytes) > 1% indicates that a LEFT SHIFT is Present. MCH (RBC) [Entitic mass] 28.2 pg 27.0-32.0 [facility] Nucleated RBC/100 WBC (Bld) [Ratio] 0 % 0-5 [facility] MCHC Auto (RBC) [Mass/Vol]Or dered By: Philip Drummond on 11-15-2022 MCHC (RBC) [Mass/Vol] 31.4 g/dL 32-36 [facility] No Panel InformationOrdered By: Philip Drummond on 11-15-2022 Vitamin D 25-Hydroxy 41.3 ng/mL [facility] Comment on above: Vitamin D 25(OH) Sta tus Range Deficiency <20 ng/mL (50nmol/L) Insufficiency 20 - 30 ng/mL (50 - 75 nmol/L) Sufficiency 30 - 100 ng/mL (75 - 250 nmol/L) Toxicity >100 ng/mL (>250 nmol/L) Addendum Document Comment . [facility] Comment on above: Protein electrophore sis scan will follow via computer,mail, or ager operator delivery. Centromere B Antibody <0.2 AI 0.0-0.9 [facility] Endomysial IgA Antibody Negative Negative [facility] [place] Estimated GFR (MDRD) Amer 73 mL/min >60 [facility] Comment on above: GFR Calc Estimated GFR (MDRD) Non-Af Amer 60 mL/min >60 [facility] Comment on above: Non- GFR Calc Immunoglobulin E 132 IU/mL 6-495 [facility] WAREHOUSE ASSISTANT Antibody <0.2 AI 0.0-0.9 [facility] Thyroid Stimulating Hormone (TSH) 2.02 uIU/mL 0.358-3.74 [facility] Platelets bldOrdered By: Anand Drummond on 11-15-2022 Platelets (Bld) [#/Vol] 258 10*3/uL 150-450 [facility] Serum DNA double strand anti body assay (units/volume)Ordered By: Philip Drummond on 11-15-2022 DNA double strand Ab Qn (S) [IU]/mL 0-9 [facility] Comment on above: Negative <5 Equivoca l 5 - 9 Positive >9 Serum IgA measurement (units /volume)Ordered By: Philip Drummond on 11-15-2022 IgA Qn (S) 411 mg/dL 64-422 [facility] Comment on above: Performed at: [address] [id number] Director: John Lopez PhD, Phone: [phone] Serum Beckie-1 antibody assay (u nits/volume)Ordered By: Philip Drummond on 11-15-2022 Beckie-1 extractable nuclear Ab Qn (S) <0.2 AI 0.0-0.9 [facility] Serum Scl-70 extractable nuc lear antibody assay (units/volume)Ordered By: Philip Drummond on 11-15-2022 SCL-70 extractable nuclear Ab Qn (S) <0.2 AI 0.0-0.9 [facility] Serum Hawk extractable nucl ear antibody detectionOrdered By: Philip Drummond on 11-15-2022 Hawk extractable nuclear Ab Ql (S) <0.2 AI 0.0-0.9 [facility] Serum [id number]-[id number]-[id number] measu rement by electrophoresisOrdered By: Philip Drummond on 11-15-2022 Alpha 1 globulin Elph [Mass/Vol] 0.3 g/dL 0.0-0.4 [facility] Alpha 1 globulin Elph [Mass/Vol] 1.2 g/dL 0.4-1.0 [facility] Serum classic neutrophil cyt oplasmic antibody assay (units/volume)Ordered By: Philip Drummond on 11-15-2022 Neutrophil cytoplasmic Ab.classic Qn (S) <1:20 titer Neg:<1:20 [facility] Serum globulin measurement ( mass/volume)Ordered By: Philip Drummond on 11-15-2022 Globulin (S) [Mass/Vol] 3.7 g/dL 2.2-3.9 [facility] Serum or plasma C reactive p rotein measurement (mass/volume)Ordered By: Philip Drummond on 11-15-2022 CRP [Mass/Vol] mg/L 0.0-3.0 [facility] Comment on above: C-Reactive Protein ( CRP) provides useful information for thediagnosis, therapy and monitoring of inflammatory processesand associated diseases. For the evaluation of Relative Riskfor Cardiovascular Disease, a High Sensitivity CRP (HSCRP)should be ordered. Serum or plasma IgA measurem ent (mass/volume)Ordered By: Philip Drummond on 11-15-2022 IgA [Mass/Vol] 405 mg/dL 64-422 [facility] Serum or plasma IgG measurem ent (mass/volume)Ordered By: Philip Drummond on 11-15-2022 IgG [Mass/Vol] 995 mg/dL 586-1602 [facility] Serum or plasma IgM measurem ent (mass/volume)Ordered By: Philip Drummond on 11-15-2022 IgM [Mass/Vol] 53 mg/dL 26-217 [facility] Serum or plasma albumin yuniel urement (mass/volume)Ordered By: Philip Drummond on 11-15-2022 Albumin [Mass/Vol] 3.8 g/dL 2.9-4.4 [facility] [place] Serum or plasma albumin/glob ulin mass ratioOrdered By: Philip Drummond on 11-15-2022 Albumin/Globulin [Mass ratio] 0.9 {ratio} 0.9-2.4 [facility] Serum or plasma beta globuli n measurement by electrophoresis (mass/volume)Ordered By: Philip Drummond on 11-15-2022 Beta globulin Elph [Mass/Vol] 1.3 g/dL 0.7-1.3 [facility] Serum or plasma calcium yuniel urement (mass/volume)Ordered By: Philip Drummond on 11-15-2022 Calcium [Mass/Vol] 9.4 mg/dL 8.5-10.1 [facility] [place] Serum or plasma cholesterol in HDL measurement (mass/volume)Ordered By: Philip Drummond on 11-15-2022 Cholesterol in HDL [Mass/Vol] 44 mg/dL >40 [facility] Comment on above: The drugs N-Acetylcy steine and Metamizole may falsely depress this assay. Reference Range HDL <40 mg/dL Low HDL Cholesterol HDL >or= 60 mg/dL High HDL Cholesterol Serum or plasma cholesterol in VLDL measurement (mass/volume)Ordered By: Philip Drummond on 11-15-2022 Cholesterol in VLDL [Mass/Vol] 29 mg/dL 5-40 [facility] Serum or plasma creatinine m easurement (mass/volume)Ordered By: Philip Drummond on 11-15-2022 Creatinine [Mass/Vol] 0.97 mg/dL 0.55-1.02 [facility] Comment on above: The validity of the calculated GFR & GFRAA in patients over 70 years has not been determined. Clinical correlation is essential. Serum or plasma gamma globul in measurement by electrophoresis (mass/volume)Ordered By: Philip Drummond on 11-15-2022 Gamma globulin Elph [Mass/Vol] 1.0 g/dL 0.4-1.8 [facility] Serum or plasma immunoelectr ophoresis interpretation (nominal result)Ordered By: Philip Drummond on 11-15-2022 Interpretation IEP [Interp] Comment . [facility] Comment on above: No monoclonality det ected. Serum or plasma low density lipoprotein (LDL) cholesterol measurement (mass/volume)Ordered By: Philip Drummond on 11-15-2022 Cholesterol in LDL [Mass/Vol] 95 mg/dL 0-130 [facility] Serum or plasma urea nitroge n measurement (mass/volume)Ordered By: Philip Drummond on 11-15-2022 Urea nitrogen [Mass/Vol] 26 mg/dL 7-18 [facility] Serum perinuclear neutrophil cytoplasmic antibody titer by immunofluorescenceOrdered By: Philip Drummond on 11-15-2022 Neutrophil cytoplasmic Ab.perinuclear IF (S) [Titer] <1:20 titer Neg:<1:20 [facility] Comment on above: The presence of posi tive fluorescence exhibiting P-ANCA orC-ANCA patterns alone is not specific for the diagnosis ofWegener's Granulomatosis (WG) or microscopic polyangiitis.Decisions about treatment should not be based solely onANCA IFA results. The International ANCA Group Consensusrecommends follow up testing of positive sera with both KS-3 and MPO-ANCA enzyme immunoassays. As many as 5% serumsamples are positive only by EIA. Ref. AM J Clin [id number];111:507-513. Serum tissue transglutaminas e IgA antibody assay (units/volume)Ordered By: Philip Drummond on 11-15-2022 tTG IgA Qn (S) <2 U/mL 0-3 [facility] Comment on above: Negative 0 - 3 Weak Positive 4 - 10 Positive >10 Tissue Transglutaminase (tTG) has been identified as the endomysial antigen. Studies have demonstr- ated that endomysial IgA antibodies have over 99% specificity for gluten sensitive enteropathy. Thin prep Papanicolaou smear with manual screeningOrdered By: Philip Drummond on 11-15-2022 Thin prep Papanicolaou smear with manual screening 12 U/L 15-37 [facility] Thin prep Papanicolaou smear with manual screening 7 5-15 [facility] Thin prep Papanicolaou smear with manual screening 1.1 0.7-1.7 [facility] Total protein bloodOrdered B y: Philip Drummond on 11-15-2022 Protein [Mass/Vol] 7.5 g/dL 6.0-8.5 [facility] [place] Whole blood hemoglobin A1c/t otal hemoglobin ratio (mass fraction)Ordered By: Philip Drummond on 11-15-2022 HbA1c (Bld) [Mass fraction] 7.2 % 3.8-5.6 [facility] Comment on above: Normal < 5.7 % Predi abetic 5.7 - 6.4 % Diabetic >or= 6.5 % Please note range changes. Culture, urineOrdered By: Thea Negron on 11-10-2022 Bacteria identified Cx Nom (U) Mixed Gram Pos & Gram Neg Org [facility] Cervical or vagninal specime n microscopic examination by cytology stain (reported asOrdered By: Marga Negron on 11-08-2022 Cytology report Cyto stain Doc (Cvx/Vag) Comment . [facility] Comment on above: The Pap smear is a s creening test designed to aid in thedetection of premalignant and malignant conditions of theuterine cervix. It is not a diagnostic procedure andshould not be used as the sole means of detecting cervicalcancer. Both false-positive and false-negative reports dooccur. Culture, urineOrdered By: Thea Negron on 11-08-2022 Bacteria identified Cx Nom (U) Mixed Gram Pos & Gram Neg Org [facility] Detection in cervical specim en of any of human papilloma virus (HPV) 16, 18, 31, 33,Ordered By: Marga Negron on 11-08-2022 HPV 16+18+31+33+35+39+45+51+52+ 56+58+59+66+68 DNA Probe+sig amp Ql (Cvx) Negative Negative [facility] Comment on above: This nucleic acid am plification test detects fourteen high-risk HPV types (16,18,31,33,35,39,45,51,52,56,58,59,66,68)without differentiation. Laboratory - CytologyOrdered By: Marga Negron on 11-08-2022 Mutuel Cashier Cyto stain Nom (Cvx/Vag) [ID] Comment . [facility] Comment on above: Gladys lopez, Childcare Center Director (ASCP) Laboratory - Miscellaneous t estsOrdered By: Marga Negron on 11-08-2022 Service comment (Unsp spec) [Interp] Comment . [facility] Comment on above: This liquid based Th inPrep(R) pap test was screened withthe use of an image guided system. Service comment (Unsp spec) [Interp] . . [facility] Liquid-based cerv Pap + CT/G C by DARLIN w reflex to high-risk HPV for ASCUSOrdered By: Marga Negron on 11-08-2022 Cytology report Cyto stain.thin prep Doc (Cvx/Vag) Comment . [facility] Comment on above: Criteria not met, HP V Genotype not performed.Performed at: - [address] [id number] Director: Elena Pascal MD, Phone: [phone] at: =[address] [id number] Director: Elena Pascal MD, Phone: [phone] No Panel InformationOrdered By: Marga Negron on 11-08-2022 Pathology report final diagnosis Narrative Comment . [facility] Comment on above: NEGATIVE FOR INTRAEP ITHELIAL LESION OR MALIGNANCY. COVID-19 virus antigen assay Ordered By: Dr. Green on 10-04-2022 SARS-CoV-2 (COVID-19) Ag IA.rapid Ql (Resp) Not detected Not Detect [facility] Comment on above: Normal Reference Ran ge: Not DetectedMethod:(RT-PCR) real-time reverse transcriptase PCRLuminex [employer] Solutions Instrument*The Food and Drug Administration (FDA) has issued an Emergency Use Authorization (EAU) for the [employer] SARS-CoV-2 Assay for the rapid detection of the virus that causes COVID-19. This test has been validated, but the [facility] independent review of this validation is pending.*Negative results do not preclude infection and should not be used as the sole basis for treatment or patient management. Optimum specimen types and timing for peak viral levels during infections caused by SARS-CoV-2 have not been determined. Collection of multiple specimens from the same patient may be necessary to detect the virus. The possibility of a false negative result should be considered if the patient has clinical presentation or has had recent exposure. No Panel InformationOrdered By: Taras Green on 10-04-2022 Influenza Types A,B Direct FA ([facility]) [facility] No Panel InformationOrdered By: Dr. Green on 10-04-2022 Influenza Types A,B Direct FA ([facility]) [facility] RSV Ag EIAOrdered By: Taras petit on 10-04-2022 RSV Ag Immune stain Ql (Tiss) [facility] RSV Ag EIAOrdered By: Dr. Hernandez petit on 10-04-2022 RSV Ag Immune stain Ql (Tiss) [facility] Absolute lymphocyte countOrd ered By: Dr. Green on 08-04-2022 Lymphocytes Auto (Unsp spec) [#/Vol] 2.11 10*3/uL 0.83-4.51 [facility] Basophil percentageOrdered B y: Dr. Green on 08-04-2022 Basophils/100 WBC (Bld) 0.9 % 0-1 [facility] Bilirubin [Mass/Vol] 0.30 mg/dL 0.20-1.00 [facility] Comment on above: For patients on eltr ombopag therapy, use of Dimension [place] TBIL is not recommended. Chloride [Moles/Vol] 107 mmol/L 98-107 [facility] Eosinophils/100 WBC (Bld) 1.6 % 0-5 [facility] Glucose [Mass/Vol] 136 mg/dL 74-106 [facility] Comment on above: Fasting Glucose resu lt greater than or equal to 126 mg/dL suggests DIABETES MELLITUS per A.D.A. criteria. Neutrophils (Bld) [#/Vol] 4.5 10*3/uL 2.0-7.7 [facility] Neutrophils/100 WBC (Bld) 60.8 % 47-70 [facility] Potassium [Moles/Vol] 4.0 mmol/L 3.5-5.1 [facility] Comment on above: Slight Hemolysis, Re sult may be falsely increased. Protein [Mass/Vol] 7.8 g/dL 6.4-8.2 [facility] Sodium [Moles/Vol] 140 mmol/L 136-145 [facility] WBC (Bld) [#/Vol] 7.4 10*3/uL 4.4-11.0 [facility] Blood erythrocytes count (nu mber/volume)Ordered By: Dr. Green on 08-04-2022 RBC (Bld) [#/Vol] 4.68 10*6/uL 4.2-5.[address] [facility] Blood hemoglobin measurement (mass/volume)Ordered By: Dr. Green on 08-04-2022 Hemoglobin (Bld) [Mass/Vol] 13.0 g/dL 12.0-15. 0 [facility] Blood lymphocytes/100 leukoc ytesOrdered By: Dr. Green on 08-04-2022 Lymphocytes/100 WBC (Bld) 28.4 % 19-41 [facility] Blood monocytes/100 leukocyt esOrdered By: Dr. Green on 08-04-2022 Monocytes/100 WBC (Bld) 7.9 % 0-10 [facility] Blood platelet mean volumeOr dered By: Dr. Green on 08-04-2022 Platelet mean volume (Bld) [Entitic vol] 12.7 fL 6.2-12.0 [facility] Determination of erythrocyte mean corpuscular volume (MCV)Ordered By: Dr. Green on 08-04-2022 MCV (RBC) [Entitic vol] 88.2 fL 81-99 [facility] Hematocrit Auto (Bld) [Volum e fraction]Ordered By: Dr. Green on 08-04-2022 Hematocrit (Bld) [Volume fraction] 41.3 % 37-47 [facility] Laboratory - Chemistry and C hemistry - challengeOrdered By: Dr. Green on 08-04-2022 ALP [Catalytic activity/Vol] 91 U/L 45-117 [facility] ALT [Catalytic activity/Vol] 26 U/L 13-56 [facility] CO2 [Moles/Vol] 24.0 mmol/L 21.0-32.0 [facility] Globulin (S) [Mass/Vol] 4.3 g/dL 2.2-4.2 [facility] Urea nitrogen/Creatinine [Mass ratio] 19.8 mg/mg 10-20 [facility] Laboratory - Hematology and Cell countsOrdered By: Dr. Green on 08-04-2022 Erythrocyte distribution width (RBC) [Entitic vol] 43.8 fL 35.1-43.9 [facility] Erythrocyte distribution width (RBC) [Ratio] 13.5 % 11.6-14.6 [facility] Immature granulocytes/100 WBC (Bld) 0.400 % 0.0-0.9 [facility] Comment on above: IG% - Immature Granu locytes (promyelocytes, myelocytes and metamyelocytes) > 1% indicates that a LEFT SHIFT is Present. MCH (RBC) [Entitic mass] 27.8 pg 27.0-32.0 [facility] Nucleated RBC/100 WBC (Bld) [Ratio] 0 % 0-5 [facility] MCHC Auto (RBC) [Mass/Vol]Or dered By: Dr. Green on 08-04-2022 MCHC (RBC) [Mass/Vol] 31.5 g/dL 32-36 [facility] No Panel InformationOrdered By: Dr. Green on 08-04-2022 Estimated GFR (MDRD) Amer 69 mL/min >60 [facility] Comment on above: GFR Calc Estimated GFR (MDRD) Non-Af Amer 57 mL/min >60 [facility] Comment on above: Non- GFR Calc Thyroid Stimulating Hormone (TSH) 1.98 uIU/mL 0.358-3.74 [facility] Vitamin D 25-Hydroxy 28.3 ng/mL [facility] Comment on above: Vitamin D 25(OH) Sta tus Range Deficiency <20 ng/mL (50nmol/L) Insufficiency 20 - 30 ng/mL (50 - 75 nmol/L) Sufficiency 30 - 100 ng/mL (75 - 250 nmol/L) Toxicity >100 ng/mL (>250 nmol/L) Platelets bldOrdered By: Dr. Green on 08-04-2022 Platelets (Bld) [#/Vol] 304 10*3/uL 150-450 [facility] Serum or plasma albumin yuniel urement (mass/volume)Ordered By: Dr. Green on 08-04-2022 Albumin [Mass/Vol] 3.5 g/dL 3.2-5.0 [facility] Serum or plasma albumin/glob ulin mass ratioOrdered By: Dr. Green on 08-04-2022 Albumin/Globulin [Mass ratio] 0.8 {ratio} 0.9-2.4 [facility] Serum or plasma calcium yuniel urement (mass/volume)Ordered By: Dr. Green on 08-04-2022 Calcium [Mass/Vol] 9.6 mg/dL 8.5-10.1 [facility] Serum or plasma creatinine m easurement (mass/volume)Ordered By: Dr. Green on 08-04-2022 Creatinine [Mass/Vol] 1.01 mg/dL 0.55-1.02 [facility] Comment on above: The validity of the calculated GFR & GFRAA in patients over 70 years has not been determined. Clinical correlation is essential. Serum or plasma urea nitroge n measurement (mass/volume)Ordered By: Dr. Green on 08-04-2022 Urea nitrogen [Mass/Vol] 20 mg/dL 7-18 [facility] Thin prep Papanicolaou smear with manual screeningOrdered By: Dr. Green on 08-04-2022 Thin prep Papanicolaou smear with manual screening 16 U/L 15-37 [facility] Comment on above: Slight Hemolysis, Re sult may be falsely increased. Thin prep Papanicolaou smear with manual screening 9 5-15 [facility] Culture, urineOrdered By: Zeyad Sutton on 07-19-2022 Bacteria identified Cx Nom (U) Enterococcus faecalis [facility] Laboratory - Chemistry and C hemistry - challengeon 07-15-2022 Bilirubin Ql (U) Negative [facility] Glucose Ql (U) Negative [facility] Ketones Ql (U) Negative [facility] pH (U) 5.0 [pH] [facility] Specific gravity (U) [Rel density] 1.015 [facility] Urobilinogen (U) [Mass/Vol] Negative [facility] Laboratory - Hematology and Cell countson 07-15-2022 Hemoglobin Ql (U) Negative [facility] Laboratory - Specimen inform ationon 07-15-2022 Clarity (U) Clear [facility] Color (U) YELLOW [facility] Laboratory - Urinalysison Nitrite Ql (U) Negative [facility] Protein Ql (U) Negative [facility] No Panel Informationon 07-15 Urine Leukocytes Negatve [facility] Urine Non-Hemolyzed Blood Negative [facility] Absolute lymphocyte countOrd ered By: May Jacobs on 04-21-2022 Lymphocytes Auto (Unsp spec) [#/Vol] 2.37 10*3/uL 0.83-4.51 [facility] Basophil percentageOrdered B y: May Jacobs on 04-21-2022 Basophils/100 WBC (Bld) 0.8 % 0-1 [facility] Chloride [Moles/Vol] 101 mmol/L 98-107 [facility] Eosinophils/100 WBC (Bld) 1.7 % 0-5 [facility] Glucose [Mass/Vol] 321 mg/dL 74-106 [facility] Comment on above: Glucose result great er than or equal to 200 mg/dLsuggests DIABETES MELLITUS per A.D.A. criteria. Neutrophils (Bld) [#/Vol] 5.8 10*3/uL 2.0-7.7 [facility] Neutrophils/100 WBC (Bld) 64.0 % 47-70 [facility] Potassium [Moles/Vol] 4.2 mmol/L 3.5-5.1 [facility] [facility] Sodium [Moles/Vol] 137 mmol/L 136-145 [facility] WBC (Bld) [#/Vol] 9.1 10*3/uL 4.4-11.0 [facility] Blood erythrocytes count (nu mber/volume)Ordered By: May Jacobs on 04-21-2022 RBC (Bld) [#/Vol] 4.42 10*6/uL 4.2-5.[address] [facility] Blood hemoglobin measurement (mass/volume)Ordered By: May Jacobs on 04-21-2022 Hemoglobin (Bld) [Mass/Vol] 12.5 g/dL 12.0-15. 0 [facility] Blood lymphocytes/100 leukoc ytesOrdered By: May Jacobs on 04-21-2022 Lymphocytes/100 WBC (Bld) 26.1 % 19-41 [facility] Blood monocytes/100 leukocyt esOrdered By: May Jacobs on 04-21-2022 Monocytes/100 WBC (Bld) 7.2 % 0-10 [facility] Blood platelet mean volumeOr dered By: May Jacobs on 04-21-2022 Platelet mean volume (Bld) [Entitic vol] 11.8 fL 6.2-12.0 [facility] Determination of erythrocyte mean corpuscular volume (MCV)Ordered By: May Jacobs on 04-21-2022 MCV (RBC) [Entitic vol] 89.4 fL 81-99 [facility] Hematocrit Auto (Bld) [Volum e fraction]Ordered By: May Jacobs on 04-21-2022 Hematocrit (Bld) [Volume fraction] 39.5 % 37-47 [facility] Laboratory - Chemistry and C hemistry - challengeOrdered By: May Jacobs on 04-21-2022 CO2 [Moles/Vol] 30.0 mmol/L 21.0-32.0 [facility] Natriuretic peptide B (Bld) [Mass/Vol] 40.1 pg/mL 0-100 [facility] Urea nitrogen/Creatinine [Mass ratio] 22.5 mg/mg 10-20 [facility] Laboratory - Hematology and Cell countsOrdered By: May Jacobs on 04-21-2022 Erythrocyte distribution width (RBC) [Entitic vol] 39.9 fL 35.1-43.9 [facility] Erythrocyte distribution width (RBC) [Ratio] 12.1 % 11.6-14.6 [facility] Immature granulocytes/100 WBC (Bld) 0.200 % 0.0-0.9 [facility] Comment on above: IG% - Immature Granu locytes (promyelocytes, myelocytes and metamyelocytes) > 1% indicates that a LEFT SHIFT is Present. MCH (RBC) [Entitic mass] 28.3 pg 27.0-32.0 [facility] Nucleated RBC/100 WBC (Bld) [Ratio] 0 % 0-5 [facility] MCHC Auto (RBC) [Mass/Vol]Or dered By: May Jacobs on 04-21-2022 MCHC (RBC) [Mass/Vol] 31.6 g/dL 32-36 [facility] No Panel InformationOrdered By: May Jacobs on 04-21-2022 Estimated GFR (MDRD) Amer 76 mL/min >60 [facility] Comment on above: GFR Calc Estimated GFR (MDRD) Non-Af Amer 63 mL/min >60 [facility] Comment on above: Non- GFR Calc Platelets bldOrdered By: Cayden Jacobs on 04-21-2022 Platelets (Bld) [#/Vol] 280 10*3/uL 150-450 [facility] Serum or plasma calcium yuniel urement (mass/volume)Ordered By: May Jacobs on 04-21-2022 Calcium [Mass/Vol] 9.3 mg/dL 8.5-10.1 [facility] Serum or plasma creatinine m easurement (mass/volume)Ordered By: May Jacobs on 04-21-2022 Creatinine [Mass/Vol] 0.93 mg/dL 0.55-1.02 [facility] Comment on above: The validity of the calculated GFR & GFRAA in patients over 70 years has not been determined. Clinical correlation is essential. Serum or plasma urea nitroge n measurement (mass/volume)Ordered By: May Jacobs on 04-21-2022 Urea nitrogen [Mass/Vol] 21 mg/dL 7-18 [facility] Thin prep Papanicolaou smear with manual screeningOrdered By: May Jacobs on 04-21-2022 Thin prep Papanicolaou smear with manual screening 6 5-15 [facility] Absolute lymphocyte countOrd ered By: Dr. Green on 03-17-2022 Lymphocytes Auto (Unsp spec) [#/Vol] 2.28 10*3/uL 0.83-4.51 [facility] Basophil percentageOrdered B y: Dr. Green on 03-17-2022 Basophils/100 WBC (Bld) 0.9 % 0-1 [facility] Bilirubin [Mass/Vol] 0.20 mg/dL 0.20-1.00 [facility] Comment on above: For patients on eltr ombopag therapy, use of Dimension [place] TBIL is not recommended. Chloride [Moles/Vol] 106 mmol/L 98-107 [facility] Eosinophils/100 WBC (Bld) 1.0 % 0-5 [facility] Glucose [Mass/Vol] 185 mg/dL 74-106 [facility] Comment on above: Fasting Glucose resu lt greater than or equal to 126 mg/dL suggests DIABETES MELLITUS per A.D.A. criteria. Neutrophils (Bld) [#/Vol] 5.1 10*3/uL 2.0-7.7 [facility] Neutrophils/100 WBC (Bld) 62.7 % 47-70 [facility] Potassium [Moles/Vol] 4.2 mmol/L 3.5-5.1 [facility] Protein [Mass/Vol] 7.3 g/dL 6.4-8.2 [facility] Sodium [Moles/Vol] 139 mmol/L 136-145 [facility] WBC (Bld) [#/Vol] 8.1 10*3/uL 4.4-11.0 [facility] Blood erythrocytes count (nu mber/volume)Ordered By: Dr. Green on 03-17-2022 RBC (Bld) [#/Vol] 4.07 10*6/uL 4.2-5.[address] [facility] Blood hemoglobin measurement (mass/volume)Ordered By: Dr. Green on 03-17-2022 Hemoglobin (Bld) [Mass/Vol] 12.2 g/dL 12.0-15. 0 [facility] Blood lymphocytes/100 leukoc ytesOrdered By: Dr. Green on 03-17-2022 Lymphocytes/100 WBC (Bld) 28.2 % 19-41 [facility] Blood monocytes/100 leukocyt esOrdered By: Dr. Green on 03-17-2022 Monocytes/100 WBC (Bld) 7.0 % 0-10 [facility] Blood platelet mean volumeOr dered By: Dr. Green on 03-17-2022 Platelet mean volume (Bld) [Entitic vol] 12.5 fL 6.2-12.0 [facility] Determination of erythrocyte mean corpuscular volume (MCV)Ordered By: Dr. Green on 03-17-2022 MCV (RBC) [Entitic vol] 90.2 fL 81-99 [facility] Hematocrit Auto (Bld) [Volum e fraction]Ordered By: Dr. Green on 03-17-2022 Hematocrit (Bld) [Volume fraction] 36.7 % 37-47 [facility] Laboratory - Chemistry and C hemistry - challengeOrdered By: Dr. Green on 03-17-2022 ALP [Catalytic activity/Vol] 77 U/L 45-117 [facility] ALT [Catalytic activity/Vol] 27 U/L 13-56 [facility] CO2 [Moles/Vol] 27.0 mmol/L 21.0-32.0 [facility] Globulin (S) [Mass/Vol] 4.0 g/dL 2.2-4.2 [facility] Urea nitrogen/Creatinine [Mass ratio] 19.6 mg/mg 10-20 [facility] Laboratory - Hematology and Cell countsOrdered By: Dr. Green on 03-17-2022 Erythrocyte distribution width (RBC) [Entitic vol] 39.8 fL 35.1-43.9 [facility] Erythrocyte distribution width (RBC) [Ratio] 12.1 % 11.6-14.6 [facility] Immature granulocytes/100 WBC (Bld) 0.200 % 0.0-0.9 [facility] Comment on above: IG% - Immature Granu locytes (promyelocytes, myelocytes and metamyelocytes) > 1% indicates that a LEFT SHIFT is Present. MCH (RBC) [Entitic mass] 30.0 pg 27.0-32.0 [facility] Nucleated RBC/100 WBC (Bld) [Ratio] 0 % 0-5 [facility] MCHC Auto (RBC) [Mass/Vol]Or dered By: Dr. Green on 03-17-2022 MCHC (RBC) [Mass/Vol] 33.2 g/dL 32-36 [facility] No Panel InformationOrdered By: Dr. Green on 03-17-2022 Estimated GFR (MDRD) Amer 73 mL/min >60 [facility] Comment on above: GFR Calc Estimated GFR (MDRD) Non-Af Amer 60 mL/min >60 [facility] Comment on above: Non- GFR Calc Thyroid Stimulating Hormone (TSH) 2.18 uIU/mL 0.358-3.74 [facility] Vitamin D 25-Hydroxy 36.6 ng/mL [facility] Comment on above: Vitamin D 25(OH) Sta tus Range Deficiency <20 ng/mL (50nmol/L) Insufficiency 20 - 30 ng/mL (50 - 75 nmol/L) Sufficiency 30 - 100 ng/mL (75 - 250 nmol/L) Toxicity >100 ng/mL (>250 nmol/L) Platelets bldOrdered By: Dr. Green on 03-17-2022 Platelets (Bld) [#/Vol] 282 10*3/uL 150-450 [facility] Serum or plasma albumin yuniel urement (mass/volume)Ordered By: Dr. Green on 03-17-2022 Albumin [Mass/Vol] 3.3 g/dL 3.2-5.0 [facility] Serum or plasma albumin/glob ulin mass ratioOrdered By: Dr. Green on 03-17-2022 Albumin/Globulin [Mass ratio] 0.8 {ratio} 0.9-2.4 [facility] Serum or plasma calcium yuniel urement (mass/volume)Ordered By: Dr. Green on 03-17-2022 Calcium [Mass/Vol] 9.3 mg/dL 8.5-10.1 [facility] Serum or plasma creatinine m easurement (mass/volume)Ordered By: Dr. Green on 03-17-2022 Creatinine [Mass/Vol] 0.97 mg/dL 0.55-1.02 [facility] Comment on above: The validity of the calculated GFR & GFRAA in patients over 70 years has not been determined. Clinical correlation is essential. Serum or plasma urea nitroge n measurement (mass/volume)Ordered By: Dr. Green on 03-17-2022 Urea nitrogen [Mass/Vol] 19 mg/dL 7-18 [facility] Thin prep Papanicolaou smear with manual screeningOrdered By: Dr. Green on 03-17-2022 Thin prep Papanicolaou smear with manual screening 8 U/L 15-37 [facility] Thin prep Papanicolaou smear with manual screening 6 5-15 [facility] Laboratory - Chemistry and C hemistry - challengeon 11-11-2021 CK [Catalytic activity/Vol] 191 U/L 26-192 [facility] Work Phone: Myoglobin [Mass/Vol] 320 ng/mL 25-58 [facility] Work Phone: Comment on above: Performed at: [address] [id number] Director: John Lopez PhD, Phone: [phone] No Panel Informationon 11-11 Troponin I High Sensitivity 6 pg/mL 3.0-54.0 [facility] Work Phone: Comment on above: Please Note: New Loni t Units and Gender Specific Reference Ranges. For more information see Policy Stat Procedure [place] High Sensitivity Troponin (TNIH) and attachments. Absolute lymphocyte counton 11-06-2021 Lymphocytes Auto (Unsp spec) [#/Vol] 1.71 10*3/uL 0.83-4.51 [facility] Work Phone: Basophil percentageon 2021 Basophils/100 WBC (Bld) 0.2 % 0-1 [facility] Work Phone: Bilirubin [Mass/Vol] 0.60 mg/dL 0.20-1.00 [facility] Work Phone: Comment on above: For patients on eltr ombopag therapy, use of Dimension [place] TBIL is not recommended. Chloride [Moles/Vol] 106 mmol/L 98-107 [facility] Work Phone: Eosinophils/100 WBC (Bld) 0.2 % 0-5 [facility] Work Phone: Glucose [Mass/Vol] 195 mg/dL 74-106 [facility] Work Phone: Comment on above: Fasting Glucose resu lt greater than or equal to 126 mg/dL suggests DIABETES MELLITUS per A.D.A. criteria. Neutrophils (Bld) [#/Vol] 10.4 10*3/uL 2.0-7.7 [facility] Work Phone: Neutrophils/100 WBC (Bld) 79.5 % 47-70 [facility] Work Phone: Potassium [Moles/Vol] 4.1 mmol/L 3.5-5.1 [facility] Work Phone: Protein [Mass/Vol] 7.5 g/dL 6.4-8.2 [facility] Work Phone: Sodium [Moles/Vol] 138 mmol/L 136-145 [facility] Work Phone: WBC (Bld) [#/Vol] 13.1 10*3/uL 4.4-11.[address] [facility] Work Phone: Blood erythrocytes count (nu mber/volume)on 11-06-2021 RBC (Bld) [#/Vol] 4.80 10*6/uL 4.2-5.[address] [facility] Work Phone: Blood hemoglobin measurement (mass/volume)on 11-06-2021 Hemoglobin (Bld) [Mass/Vol] 14.0 g/dL 12.0-15. 0 [facility] Work Phone: Blood lymphocytes/100 leukoc yteson 11-06-2021 Lymphocytes/100 WBC (Bld) 13.1 % 19-41 [facility] Work Phone: Blood monocytes/100 leukocyt eson 11-06-2021 Monocytes/100 WBC (Bld) 6.8 % 0-10 [facility] Work Phone: Blood platelet mean volumeon 11-06-2021 Platelet mean volume (Bld) [Entitic vol] 11.8 fL 6.2-12.0 [facility] Work Phone: Determination of erythrocyte mean corpuscular volume (MCV)on 11-06-2021 MCV (RBC) [Entitic vol] 87.1 fL 81-99 [facility] Work Phone: Direct bilirubinon 2 Bilirubin.direct [Mass/Vol] 0.14 mg/dL 0.00-0.3 0 [facility] Work Phone: Hematocrit Auto (Bld) [Volum e fraction]on 11-06-2021 Hematocrit (Bld) [Volume fraction] 41.8 % 37-47 [facility] Work Phone: Laboratory - Chemistry and C hemistry - challengeon 11-06-2021 ALP [Catalytic activity/Vol] 89 U/L 45-117 [facility] Work Phone: ALT [Catalytic activity/Vol] 20 U/L 13-56 [facility] Work Phone: CO2 [Moles/Vol] 27.0 mmol/L 21.0-32.0 [facility] Work Phone: Globulin (S) [Mass/Vol] 4.2 g/dL 2.2-4.2 [facility] Work Phone: Lipase [Catalytic activity/Vol] 91 U/L 73-393 [facility] Work Phone: Urea nitrogen/Creatinine [Mass ratio] 25.7 mg/mg 10-20 [facility] Work Phone: Laboratory - Hematology and Cell countson 11-06-2021 Erythrocyte distribution width (RBC) [Entitic vol] 40.7 fL 35.1-43.9 [facility] Work Phone: Erythrocyte distribution width (RBC) [Ratio] 12.9 % 11.6-14.6 [facility] Work Phone: Immature granulocytes/100 WBC (Bld) 0.200 % 0.0-0.9 [facility] Work Phone: Comment on above: IG% - Immature Granu locytes (promyelocytes, myelocytes and metamyelocytes) > 1% indicates that a LEFT SHIFT is Present. MCH (RBC) [Entitic mass] 29.2 pg 27.0-32.0 [facility] Work Phone: Nucleated RBC/100 WBC (Bld) [Ratio] 0 % 0-5 [facility] Work Phone: MCHC Auto (RBC) [Mass/Vol]on 11-06-2021 MCHC (RBC) [Mass/Vol] 33.5 g/dL 32-36 [facility] Work Phone: No Panel Informationon 11-06 Estimated Creatinine Clearance Calc 57.22 ml/min [facility] Work Phone: Estimated GFR (MDRD) Amer 66 mL/min >60 [facility] Work Phone: Comment on above: GFR Calc Estimated GFR (MDRD) Non-Af Amer 55 mL/min >60 [facility] Work Phone: Comment on above: Non- GFR Calc Platelets bldon 11-06-2021 Platelets (Bld) [#/Vol] 241 10*3/uL 150-450 [facility] Work Phone: Serum or plasma albumin yuniel urement (mass/volume)on 11-06-2021 Albumin [Mass/Vol] 3.3 g/dL 3.2-5.0 [facility] Work Phone: Serum or plasma calcium yuniel urement (mass/volume)on 11-06-2021 Calcium [Mass/Vol] 9.2 mg/dL 8.5-10.1 [facility] Work Phone: Serum or plasma creatinine m easurement (mass/volume)on 11-06-2021 Creatinine [Mass/Vol] 1.05 mg/dL 0.55-1.02 [facility] Work Phone: Comment on above: The validity of the calculated GFR & GFRAA in patients over 70 years has not been determined. Clinical correlation is essential. Serum or plasma urea nitroge n measurement (mass/volume)on 11-06-2021 Urea nitrogen [Mass/Vol] 27 mg/dL 7-18 [facility] Work Phone: Thin prep Papanicolaou smear with manual screeningon 11-06-2021 Thin prep Papanicolaou smear with manual screening 12 U/L 15-37 [facility] Work Phone: Thin prep Papanicolaou smear with manual screening 5 5-15 [facility] Work Phone: [phone] Absolute lymphocyte counton 10-25-2021 Lymphocytes Auto (Unsp spec) [#/Vol] 1.96 10*3/uL 0.83-4.51 [facility] Work Phone: Basophil percentageon 2021 Basophils/100 WBC (Bld) 0.6 % 0-1 [facility] Work Phone: Bilirubin [Mass/Vol] 0.30 mg/dL 0.20-1.00 [facility] Work Phone: Comment on above: For patients on eltr ombopag therapy, use of Dimension [place] TBIL is not recommended. Chloride [Moles/Vol] 103 mmol/L 98-107 [facility] Work Phone: Eosinophils/100 WBC (Bld) 1.4 % 0-5 [facility] Work Phone: Glucose [Mass/Vol] 273 mg/dL 74-106 [facility] Work Phone: Comment on above: Glucose result great er than or equal to 200 mg/dLsuggests DIABETES MELLITUS per A.D.A. criteria. Neutrophils (Bld) [#/Vol] 5.1 10*3/uL 2.0-7.7 [facility] Work Phone: [phone] Neutrophils/100 WBC (Bld) 65.7 % 47-70 [facility] Work Phone: Potassium [Moles/Vol] 4.1 mmol/L 3.5-5.[address] [facility] [facility] Work Phone: Protein [Mass/Vol] 7.6 g/dL 6.4-8.2 [facility] Work Phone: Sodium [Moles/Vol] 138 mmol/L 136-145 [facility] Work Phone: WBC (Bld) [#/Vol] 7.8 10*3/uL 4.4-11.0 [facility] Work Phone: Blood erythrocytes count (nu mber/volume)on 10-25-2021 RBC (Bld) [#/Vol] 4.32 10*6/uL 4.2-5.4 [facility] Work [facility]: Blood hemoglobin measurement (mass/volume)on 10-25-2021 Hemoglobin (Bld) [Mass/Vol] 12.5 g/dL 12.0-15. 0 [facility] Work Phone: Blood lymphocytes/100 leukoc yteson 10-25-2021 Lymphocytes/100 WBC (Bld) 25.3 % 19-41 [facility] Work Phone: Blood monocytes/100 leukocyt eson 10-25-2021 Monocytes/100 WBC (Bld) 6.7 % 0-10 [facility] Work Phone: Blood platelet mean volumeon 10-25-2021 Platelet mean volume (Bld) [Entitic vol] 12.9 fL 6.2-12.0 [facility] Work Phone: Determination of erythrocyte mean corpuscular volume (MCV)on 10-25-2021 MCV (RBC) [Entitic vol] 88.2 fL 81-99 [facility] Work Phone: Hematocrit Auto (Bld) [Volum e fraction]on 10-25-2021 Hematocrit (Bld) [Volume fraction] 38.1 % 37-47 [facility] Work Phone: Laboratory - Chemistry and C hemistry - challengeon 10-25-2021 ALP [Catalytic activity/Vol] 75 U/L 45-117 [facility] Work Phone: ALT [Catalytic activity/Vol] 28 U/L 13-56 [facility] Work Phone: CO2 [Moles/Vol] 28.0 mmol/L 21.0-32.0 [facility] Work Phone: Globulin (S) [Mass/Vol] 4.1 g/dL 2.2-4.2 [facility] Work Phone: Urea nitrogen/Creatinine [Mass ratio] 24.3 mg/mg 10-20 [facility] Work Phone: Laboratory - Hematology and Cell countson 10-25-2021 Erythrocyte distribution width (RBC) [Entitic vol] 41.9 fL 35.1-43.9 [facility] Work Phone: Erythrocyte distribution width (RBC) [Ratio] 13.0 % 11.6-14.6 [facility] Work Phone: Immature granulocytes/100 WBC (Bld) 0.300 % 0.0-0.9 [facility] Work Phone: Comment on above: IG% - Immature Granu locytes (promyelocytes, myelocytes and metamyelocytes) > 1% indicates that a LEFT SHIFT is Present. MCH (RBC) [Entitic mass] 28.9 pg 27.0-32.0 [facility] Work Phone: Nucleated RBC/100 WBC (Bld) [Ratio] 0 % 0-5 [facility] Work Phone: MCHC Auto (RBC) [Mass/Vol]on 10-25-2021 MCHC (RBC) [Mass/Vol] 32.8 g/dL 32-36 [facility] Work Phone: No Panel Informationon 10-25 Estimated GFR (MDRD) Amer 60 mL/min >60 [facility] Work Phone: Comment on above: GFR Calc Estimated GFR (MDRD) Non-Af Amer 49 mL/min >60 [facility] Work Phone: Comment on above: Non- GFR Calc Thyroid Stimulating Hormone (TSH) 1.37 uIU/mL 0.358-3.74 [facility] Work Phone: Vitamin D 25-Hydroxy 45.8 ng/mL [facility] Work Phone: Comment on above: Vitamin D 25(OH) Sta tus Range Deficiency <20 ng/mL (50nmol/L) Insufficiency 20 - 30 ng/mL (50 - 75 nmol/L) Sufficiency 30 - 100 ng/mL (75 - 250 nmol/L) Toxicity >100 ng/mL (>250 nmol/L) Platelets bldon 10-25-2021 Platelets (Bld) [#/Vol] 239 10*3/uL 150-450 [facility] Work Phone: Serum or plasma albumin yuniel urement (mass/volume)on 10-25-2021 Albumin [Mass/Vol] 3.5 g/dL 3.2-5.0 [facility] Work Phone: Serum or plasma albumin/glob ulin mass ratioon 10-25-2021 Albumin/Globulin [Mass ratio] 0.9 {ratio} 0.9-2.4 [facility] Work Phone: Serum or plasma calcium yuniel urement (mass/volume)on 10-25-2021 Calcium [Mass/Vol] 9.4 mg/dL 8.5-10.1 [facility] Work Phone: Serum or plasma creatinine m easurement (mass/volume)on 10-25-2021 Creatinine [Mass/Vol] 1.15 mg/dL 0.55-1.02 [facility] Work Phone: Comment on above: The validity of the calculated GFR & GFRAA in patients over 70 years has not been determined. Clinical correlation is essential. Serum or plasma urea nitroge n measurement (mass/volume)on 10-25-2021 Urea nitrogen [Mass/Vol] 28 mg/dL 7-18 [facility] Work Phone: Thin prep Papanicolaou smear with manual screeningon 10-25-2021 Thin prep Papanicolaou smear with manual screening 13 U/L 15-37 [facility] Work Phone: Thin prep Papanicolaou smear with manual screening 7 5-15 [facility] Work Phone: Laboratory - Microbiology an d Antimicrobial susceptibilityon 10-18-2021 SARS-CoV-2 (COVID-19) RNA DARLIN+probe Ql (Unsp spec) Not detected [facility] Work Phone: No Panel Informationon 10-18 POC Nasal Swab Influenza A,B Not detected [facility] Work Phone: POC Nasal Swab RSV Not detected [facility] Work Phone: Absolute lymphocyte counton 07-22-2021 Lymphocytes Auto (Unsp spec) [#/Vol] 2.00 10*3/uL 0.83-4.51 [facility] Work Phone: Basophil percentageon 2021 Basophils/100 WBC (Bld) 0.7 % 0-1 [facility] Work Phone: Bilirubin [Mass/Vol] 0.10 mg/dL 0.20-1.00 [facility] Work Phone: Comment on above: For patients on eltr ombopag therapy, use of Dimension [place] TBIL is not recommended. Chloride [Moles/Vol] 105 mmol/L 98-107 [facility] Work Phone: Eosinophils/100 WBC (Bld) 1.2 % 0-5 [facility] Work Phone: Glucose [Mass/Vol] 213 mg/dL 74-106 [facility] Work Phone: Comment on above: Glucose result great er than or equal to 200 mg/dLsuggests DIABETES MELLITUS per A.D.A. criteria. Neutrophils (Bld) [#/Vol] 4.0 10*3/uL 2.0-7.7 [facility] Work Phone: Neutrophils/100 WBC (Bld) 60.3 % 47-70 [facility] Work Phone: Potassium [Moles/Vol] 3.8 mmol/L 3.5-5.1 [facility] Work Phone: Protein [Mass/Vol] 8.1 g/dL 6.4-8.2 [facility] Work Phone: Sodium [Moles/Vol] 137 mmol/L 136-145 [facility] Work Phone: WBC (Bld) [#/Vol] 6.7 10*3/uL 4.4-11.0 [facility] Work Phone: Blood erythrocytes count (nu mber/volume)on 07-22-2021 RBC (Bld) [#/Vol] 4.14 10*6/uL 4.2-5.4 [facility] Work Phone: Blood hemoglobin measurement (mass/volume)on 07-22-2021 Hemoglobin (Bld) [Mass/Vol] 11.9 g/dL 12.0-15. 0 [facility] Work Phone: Blood lymphocytes/100 leukoc yteson 07-22-2021 Lymphocytes/100 WBC (Bld) 29.9 % 19-41 [facility] Work Phone: Blood monocytes/100 leukocyt eson 07-22-2021 Monocytes/100 WBC (Bld) 7.6 % 0-10 [facility] Work Phone: Blood platelet mean volumeon 07-22-2021 Platelet mean volume (Bld) [Entitic vol] 11.3 fL 6.2-12.0 [facility] Work Phone: Determination of erythrocyte mean corpuscular volume (MCV)on 07-22-2021 MCV (RBC) [Entitic vol] 86.5 fL 81-99 [facility] Work Phone: Hematocrit Auto (Bld) [Volum e fraction]on 07-22-2021 Hematocrit (Bld) [Volume fraction] 35.8 % 37-47 [facility] Work Phone: Laboratory - Chemistry and C hemistry - challengeon 07-22-2021 ALP [Catalytic activity/Vol] 92 U/L 45-117 [facility] Work Phone: ALT [Catalytic activity/Vol] 14 U/L 13-56 [facility] Work Phone: CO2 [Moles/Vol] 26.0 mmol/L 21.0-32.0 [facility] Work Phone: Globulin (S) [Mass/Vol] 4.6 g/dL 2.2-4.2 [facility] Work Phone: Urea nitrogen/Creatinine [Mass ratio] 22.7 mg/mg 10-20 [facility] Work Phone: Laboratory - Hematology and Cell countson 07-22-2021 Erythrocyte distribution width (RBC) [Entitic vol] 38.9 fL 35.1-43.9 [facility] [place] Work Phone: Erythrocyte distribution width (RBC) [Ratio] 12.1 % 11.6-14.6 [facility] Work Phone: Immature granulocytes/100 WBC (Bld) 0.300 % 0.0-0.9 [facility] Work Phone: Comment on above: IG% - Immature Granu locytes (promyelocytes, myelocytes and metamyelocytes) > 1% indicates that a LEFT SHIFT is Present. MCH (RBC) [Entitic mass] 28.7 pg 27.0-32.0 [facility] Work Phone: Nucleated RBC/100 WBC (Bld) [Ratio] 0 % 0-5 [facility] Work Phone: MCHC Auto (RBC) [Mass/Vol]on 07-22-2021 MCHC (RBC) [Mass/Vol] 33.2 g/dL 32-36 [facility] Work Phone: No Panel Informationon 07-22 Estimated GFR (MDRD) Amer 77 mL/min >60 [facility] Work Phone: Comment on above: GFR Calc Estimated GFR (MDRD) Non-Af Amer 63 mL/min >60 [facility] Work Phone: Comment on above: Non- GFR Calc Hepatitis C Antibody Non-Reactive Nonreactive [facility] Work Phone: Comment on above: Non Reactive: < 0.8 Equivocal: >/= 0.8 to < 1.0 Reactive: >/= 1.0The CDC recommends that a reactive/equivocal HCV antibody result be followed up by the HCV Nucleic Acid Amplificationtest (144377) Thyroid Stimulating Hormone (TSH) 2.30 uIU/mL 0.358-3.74 [facility] Work Phone: Vitamin D 25-Hydroxy 53.5 ng/mL [facility] Work Phone: Comment on above: Vitamin D 25(OH) Sta tus Range Deficiency <20 ng/mL (50nmol/L) Insufficiency 20 - 30 ng/mL (50 - 75 nmol/L) Sufficiency 30 - 100 ng/mL (75 - 250 nmol/L) Toxicity >100 ng/mL (>250 nmol/L) Platelets bldon 07-22-2021 Platelets (Bld) [#/Vol] 351 10*3/uL 150-450 [facility] Work Phone: Serum or plasma albumin yuniel urement (mass/volume)on 07-22-2021 Albumin [Mass/Vol] 3.5 g/dL 3.2-5.0 [facility] [place] Work Phone: Serum or plasma albumin/glob ulin mass ratioon 07-22-2021 Albumin/Globulin [Mass ratio] 0.8 {ratio} 0.9-2.4 [facility] Work Phone: Serum or plasma calcium yuniel urement (mass/volume)on 07-22-2021 Calcium [Mass/Vol] 9.2 mg/dL 8.5-10.1 [facility] [place] Work Phone: Serum or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 10.4 fL [place] Platelets (Bld) [#/Vol] 286 10*3/uL 140 - 440 10*3/uL [place] RBC (Bld) [#/Vol] 4.34 10*6/uL 3.8 - 5.2 10*6/uL [place] WBC (Bld) [#/Vol] 7.4 10*3/uL 3.6 - 10.7 10*3/uL [place] Test Performed by [facility], [address] [place], [place] [id number] [place] [address] Comp Metabolic Panelon 05-01 ALP [Catalytic activity/Vol] 76 U/L Normal 38-126 [facility] Comment on above: Performed By: #### L IPD2, ALT3, BMP3 #### [facility] [address] [place] [address] ALT [Catalytic activity/Vol] 33 U/L Normal 13-69 [facility] Comment on above: Performed By: #### L IPD2, ALT3, BMP3 #### [facility] [address] [place] [address] Anion gap [Moles/Vol] 9 Normal [facility] Comment on above: Performed By: #### L IPD2, ALT3, BMP3 #### [facility] [address] [place] [address] AST [Catalytic activity/Vol] 20 U/L Normal 15-46 [facility] Comment on above: Performed By: #### L IPD2, ALT3, BMP3 #### [facility] [address] [place] [address] Calcium [Mass/Vol] 10.3 mg/dL Normal 8.4-10.4 [facility] Comment on above: Performed By: #### L IPD2, ALT3, BMP3 #### [facility] [address] [place] [address] CO2 [Moles/Vol] 30 mmol/L Normal 22-30 [facility] Comment on above: Performed By: #### L IPD2, ALT3, BMP3 #### [facility] [address] [place] [address] Glucose [Mass/Vol] 138 mg/dL High 70-100 [facility] Comment on above: Performed By: #### L IPD2, ALT3, BMP3 #### [facility] [address] [place] [address] Protein [Mass/Vol] 7.3 g/dL Normal 6.3-8.2 [facility] Comment on above: Performed By: #### L IPD2, ALT3, BMP3 #### [facility] [address] [place] [address] Urea nitrogen [Mass/Vol] 27 mg/dL High 7-20 [facility] Comment on above: Performed By: #### L IPD2, ALT3, BMP3 #### [facility] [address] [place] [address] Bilirubin [Mass/Vol] 0.2 mg/dL Normal 0.2-1.3 [facility] Comment on above: Performed By: #### L IPD2, ALT3, BMP3 #### [facility] [address] [place] [address] Creatinine [Mass/Vol] 0.84 mg/dL Normal 0.52-1.25 [facility] Comment on above: Performed By: #### L IPD2, ALT3, BMP3 #### [facility] [address] [place] [address] GFR/1.73 sq M predicted among blacks MDRD (S/P/Bld) [Vol rate/Area] mL/min/{1.73_m2} Normal >60 [facility] Comment on above: Performed By: #### L IPD2, ALT3, BMP3 #### [facility] [address] [place] [address] GFR/1.73 sq M predicted among non-blacks MDRD (S/P/Bld) [Vol rate/Area] mL/min/{1.73_m2} Normal >60 [facility] Comment on above: Result Comment: Sour ce- MDRD equation with creatinine calibration to IDMS(NKDEP) eGFR not recommended for drug dose adjustment Performed By: #### L IPD2, ALT3, BMP3 #### [facility] [address] [place] [address] Albumin [Mass/Vol] 4.4 g/dL Normal 3.5-5.0 [facility] Comment on above: Performed By: #### L IPD2, ALT3, BMP3 #### [facility] [address] [place] [address] Chloride [Moles/Vol] 102 mmol/L Normal 98-107 [facility] Comment on above: Performed By: #### L IPD2, ALT3, BMP3 #### [facility] [address] [place] [address] Potassium [Moles/Vol] 4.7 mmol/L Normal 3.5-5.1 [facility] Comment on above: Performed By: #### L IPD2, ALT3, BMP3 #### [facility] [address] [place] [address] Sodium [Moles/Vol] 141 mmol/L Normal 135-145 [facility] Comment on above: Performed By: #### L IPD2, ALT3, BMP3 #### [facility] [address] [place] [address] Comprehensive Metabolic Pane susanna 05-01-2019 Albumin [Mass/Vol] 4.4 g/dL 3.5 - 5 g/dL [facility] [place], [place] ALP [Catalytic activity/Vol] 76 U/L 38 - 126 U/L [place] ALT [Catalytic activity/Vol] 33 U/L 13 - 69 U/L [place] Anion gap [Moles/Vol] 9 mmol/L [place] AST [Catalytic activity/Vol] 20 U/L 15 - 46 U/L [place] Bilirubin Ql (U) 0.2 mg/dL 0.2 - 1.3 mg/dL [place] Calcium [Mass/Vol] 10.3 mg/dL 8.4 - 10. 4 mg/dL [place] Chloride [Moles/Vol] 102 mmol/L 98 - 10 7 mmol/L [place] CO2 [Moles/Vol] 30 mmol/L 22 - 30 mmol/L [place] Creatinine [Mass/Vol] 0.84 mg/dL 0.52 - 1.25 mg/dL [place] EGFR IF NonAfrican Filipino >60.0 >60 mL/m in [place] Comment on above: Source- MDRD equatio n with creatinine calibration to IDMS(NKDEP) eGFR not recommended for drug dose adjustment GFR/1.73 sq M predicted among blacks MDRD (S/P/Bld) [Vol rate/Area] mL/min/{1.73_m2} >60 mL/min [place] Glucose [Mass/Vol] 138 mg/dL High 70 - 100 mg/dL [place] Interpretation and review of laboratory results Abnormal [place] Potassium [Moles/Vol] 4.7 mmol/L 3.5 - 5.1 mmol/L [place] Protein [Mass/Vol] 7.3 g/dL 6.3 - 8.2 g/dL [place] Sodium [Moles/Vol] 141 mmol/L 135 - 145 mmol/L [place] Urea nitrogen [Mass/Vol] 27 mg/dL High 7 - 20 mg/d L [place] Test Performed by [facility], [facility] [address] , [address] Hemogram w/ Autodiffon 05-01 Abs Baso Cnt 0.1 10*3/uL Normal 0.0-0.2 [facility] Comment on above: Performed By: #### L IPD2, ALT3, BMP3 #### [facility] [address] [place] [address] Abs Neutrophile Cnt 4.1 10*3/uL Normal 1.8-7.0 [facility] Comment on above: Performed By: #### L IPD2, ALT3, BMP3 #### [facility] [address] [place] [address] Basophils/100 WBC (Bld) 1.1 % Normal 0.0-2.0 [facility] Comment on above: Performed By: #### L IPD2, ALT3, BMP3 #### [facility] [address] [place] [address] Eosinophils (Bld) [#/Vol] 0.1 10*3/uL Normal 0.0-0.5 [facility] Comment on above: Performed By: #### L IPD2, ALT3, BMP3 #### [facility] [address] [place] [address] Eosinophils/100 WBC (Bld) 1.8 % Normal 1.0-6.0 [facility] Comment on above: Performed By: #### L IPD2, ALT3, BMP3 #### [facility] [address] [place] [address] Erythrocyte distribution width (RBC) [Ratio] 13.1 % Normal 11.5-14.5 [facility] Comment on above: Performed By: #### L IPD2, ALT3, BMP3 #### [facility] [address] [place] [address] Granulocytes/100 WBC (Bld) 54.6 % Normal 40.0-80.0 [facility] Comment on above: Performed By: #### L IPD2, ALT3, BMP3 #### [facility] [address] [place] [address] Hematocrit (Bld) [Volume fraction] 38.8 % Normal 35.0-47.0 [facility] Comment on above: Performed By: #### L IPD2, ALT3, BMP3 #### [facility] [address] [place] [address] Hemoglobin (Bld) [Mass/Vol] 13.1 g/dL Normal 11.7-16. 0 [facility] Comment on above: Performed By: #### L IPD2, ALT3, BMP3 #### [facility] [address] [place] [address] Lymphocytes (Bld) [#/Vol] 2.6 10*3/uL Normal 1.0-4.3 [facility] Comment on above: Performed By: #### L IPD2, ALT3, BMP3 #### [facility] [address] [place] [address] Lymphocytes/100 WBC (Bld) 34.3 % Normal 20.0-40.0 [facility] Comment on above: Performed By: #### L IPD2, ALT3, BMP3 #### [facility] [address] [place] [address] MCH (RBC) [Entitic mass] 30.1 pg Normal 26.0-34.0 [facility] Comment on above: Performed By: #### L IPD2, ALT3, BMP3 #### [facility] [address] [place] [address] MCHC (RBC) [Mass/Vol] 33.7 % Normal 32.0-36.0 [facility] Comment on above: Performed By: #### L IPD2, ALT3, BMP3 #### [facility] [address] [place] [address] MCV (RBC) [Entitic vol] 89.5 fL Normal 79.0-98.0 [facility] Comment on above: Performed By: #### L IPD2, ALT3, BMP3 #### [facility] [address] [place] [address] Monocytes (Bld) [#/Vol] 0.6 10*3/uL Normal 0.0-0.8 [facility] Comment on above: Performed By: #### L IPD2, ALT3, BMP3 #### [facility] [address] [place] [address] Monocytes/100 WBC (Bld) 8.2 % Normal 2.0-10.0 [facility] Comment on above: Performed By: #### L IPD2, ALT3, BMP3 #### [facility] [address] [place] [address] Platelet mean volume (Bld) [Entitic vol] 9.4 fL Normal 7.4-10.4 [facility] Comment on above: Performed By: #### L IPD2, ALT3, BMP3 #### [facility] [address] [place] [address] Platelets (Bld) [#/Vol] 286 10*3/uL Normal 140-440 [facility] Comment on above: Performed By: #### L IPD2, ALT3, BMP3 #### [facility] [address] [place] [address] RBC (Bld) [#/Vol] 4.34 10*6/uL Normal 3.80-5.20 [facility] Comment on above: Performed By: #### L IPD2, ALT3, BMP3 #### [facility] [address] [place] [address] WBC (Bld) [#/Vol] 7.4 10*3/uL Normal 3.6-10.7 [facility] Comment on above: Performed By: #### L IPD2, ALT3, BMP3 #### [facility] [address] [place] [address] TSH without Reflexon 019 TSH Qn 1.970 u[IU]/mL 0.465 - 4.68 u[IU]/mL [place] Test Performed by [facility], [address] , [place], [place] [id number] [place] [address] Thyroid Stim. Hormoneon 04-06 Thyroid Stim. Hormone 1.970 u[IU]/mL Normal 0.465-4.68 0 [facility] Comment on above: Performed By: #### L IPD2, ALT3, BMP3 #### [facility] [address] [place] [address] Vit D 25-OH, Totalon 019 Vit D 25-OH, Total 63 ng/mL Normal 30-100 [facility] Comment on above: Result Comment: Ther apy is based on measurement of Total 25-OHD with the following classification levels: Less than 20 ng/mL: Indicative of Vit D deficiency 20-30 ng/mL: Suggests Vit D insufficiency Optimal: Greater than or equal to 30 ng/mL Test performed by [employer], measuring Total Vitamin D, not individual fractions. Performed By: #### L IPD2, ALT3, BMP3 #### [facility] [address] [place] [address] Vitamin B12on 05-01-2019 Cobalamin (Vitamin B12) [Mass/Vol] pg/mL High 239-931 [facility] Comment on above: Performed By: #### L IPD2, ALT3, BMP3 #### [facility] [address] [place] [address] Cobalamin (Vitamin B12) [Mass/Vol] pg/mL High 239 - 931 pg/mL [place] Interpretation and review of laboratory results Abnormal [place] Test Performed by [facility], [address] , [place], [place] [address] [place] Vitamin D 25 Hydroxyon 05-01 Vit D, 25-Hydroxy 63 ng/mL 30 - 100 ng/mL [place] Comment on above: Therapy is based on measurement of Total 25-OHD with the following classification levels: Less than 20 ng/mL: Indicative of Vit D deficiency 20-30 ng/mL: Suggests Vit D insufficiency Optimal: Greater than or equal to 30 ng/mL Test performed by [employer], measuring Total Vitamin D, not individual fractions. Test Performed by [facility], [address], [place], [place] [address] [place] Basic Metabolic Panelon 04-06 Anion gap [Moles/Vol] 10 Normal [facility] Comment on above: Performed By: #### B MP3, HEMDF, TROPN #### [facility] [address] [place] [address] Calcium [Mass/Vol] 9.5 mg/dL Normal 8.4-10.4 [facility] Comment on above: Performed By: #### B MP3, HEMDF, TROPN #### [facility] [address] [place] [address] CO2 [Moles/Vol] 24 mmol/L Normal 22-30 [facility] Comment on above: Performed By: #### B MP3, HEMDF, TROPN #### [facility] [address] [place] [address] Glucose [Mass/Vol] 108 mg/dL High 70-100 [facility] Comment on above: Performed By: #### B MP3, HEMDF, TROPN #### [facility] [address] [place] [address] Urea nitrogen [Mass/Vol] 19 mg/dL Normal 7-20 [facility] Comment on above: Performed By: #### B MP3, HEMDF, TROPN #### [facility] [address] [place] [address] Creatinine [Mass/Vol] 0.73 mg/dL Normal 0.52-1.25 [facility] Comment on above: Performed By: #### B MP3, HEMDF, TROPN #### [facility] [address] [place] [address] GFR/1.73 sq M predicted among blacks MDRD (S/P/Bld) [Vol rate/Area] mL/min/{1.73_m2} Normal >60 [facility] Comment on above: Performed By: #### B MP3, HEMDF, TROPN #### [facility] [address] [place] [address] GFR/1.73 sq M predicted among non-blacks MDRD (S/P/Bld) [Vol rate/Area] mL/min/{1.73_m2} Normal >60 [facility] Comment on above: Result Comment: Sour ce- MDRD equation with creatinine calibration to IDMS(NKDEP) eGFR not recommended for drug dose adjustment Performed By: #### B MP3, HEMDF, TROPN #### [facility] [address] [place] [address] Potassium [Moles/Vol] 4.1 mmol/L Normal 3.5-5.1 [facility] Comment on above: Performed By: #### B MP3, HEMDF, TROPN #### [facility] [address] [place] [address] Sodium [Moles/Vol] 139 mmol/L Normal 135-145 [facility] Comment on above: Performed By: #### B MP3, HEMDF, TROPN #### [facility] [address] [place] [address] Chloride [Moles/Vol] 105 mmol/L Normal 98-107 [facility] Comment on above: Performed By: #### B MP3, HEMDF, TROPN #### [facility] [address] [place] [address] Anion gap [Moles/Vol] 10 mmol/L [place] Calcium [Mass/Vol] 9.5 mg/dL 8.4 - 10. 4 mg/dL [place] Chloride [Moles/Vol] 105 mmol/L 98 - 10 7 mmol/L [place] CO2 [Moles/Vol] 24 mmol/L 22 - 30 mmol/L [place] Creatinine [Mass/Vol] 0.73 mg/dL 0.52 - 1.25 mg/dL [place] EGFR IF NonAfrican Filipino >60.0 >60 mL/m in [place] Comment on above: Source- MDRD equatio n with creatinine calibration to IDMS(NKDEP) eGFR not recommended for drug dose adjustment GFR/1.73 sq M predicted among blacks MDRD (S/P/Bld) [Vol rate/Area] mL/min/{1.73_m2} >60 mL/min [place] Glucose [Mass/Vol] 108 mg/dL High 70 - 100 mg/dL [place] Interpretation and review of laboratory results Abnormal [place] Potassium [Moles/Vol] 4.1 mmol/L 3.5 - 5.1 mmol/L [place] Sodium [Moles/Vol] 139 mmol/L 135 - 145 mmol/L [place] Urea nitrogen [Mass/Vol] 19 mg/dL 7 - 20 mg/d L [place] Test Performed by [facility], [address] , [address] CR Chest PA/LATon 04-26-2019 CR Chest PA/LAT Patient Name: LAYLA HIGUERA Diagnostic Radiology Exam Date/Time 04/26/2019 11:39:44 EST Exam CR Chest PA/LAT Ordering Physician DC GUZMAN Accession Number [id number] CPT4 Codes 11431 () Reason For Exam cough dyspnea COPD Report CHEST X-RAY PA/LATERAL CLINICAL INDICATION: Cough and dyspnea Frontal and lateral plain films of the chest were obtained. COMPARISON: 05/13/2018 FINDINGS: The cardiac silhouette is within normal limits. Sternotomy wires are now noted. No focal consolidation is seen within the lungs. No pleural effusion or pneumothorax is identified. The bony structures of the chest are unremarkable as visualized for the patient's age. IMPRESSION: No acute cardiopulmonary disease. Report Dictated on Final Dictating Physician: MD HUERTA JONATHAN R Signed Date and Time: 04/26/2019 11:56 am Signed by: MD HUERTA JONATHAN R Transcribed Date and Time: 04/26/2019 11:57 Normal [facility] Hemogram (CBC) w/Auto Diffon 04-26-2019 Absolute Baso # 0.0 10*3/uL 0 - 0.2 10*3/uL [place] Absolute Neut # 4.2 10*3/uL 1.8 - 7 10*3/uL [place] Basophils/100 WBC (Bld) 0.7 % 0 - 2 % [place] Eosinophils (Bld) [#/Vol] 0.1 10*3/uL 0 - 0.5 10*3/uL [place] Eosinophils/100 WBC (Bld) 1.6 % 1 - 6 % [place] Erythrocyte distribution width (RBC) [Ratio] 13.3 % 11.5 - 14.5 % [place] Granulocytes/100 WBC (Bld) 73.9 % 40 - 80 % [place] Hematocrit (Bld) [Volume fraction] 38.4 % 35 - 47 % [place] Hemoglobin (Bld) [Mass/Vol] 13.0 g/dL 11.7 - 16 g/dL [place] Interpretation and review of laboratory results Abnormal [place] Lymphocytes (Bld) [#/Vol] 1.1 10*3/uL 1 - 4.3 10*3/uL [place] Lymphocytes/100 WBC (Bld) 19.2 % Low 20 - 40 % [place] MCH (RBC) [Entitic mass] 30.1 pg 26 - 34 pg [place] MCHC (RBC) [Mass/Vol] 33.9 % 32 - 36 % [place] MCV (RBC) [Entitic vol] 88.8 fL 79 - 98 fL [place] Monocytes (Bld) [#/Vol] 0.3 10*3/uL 0 - 0.8 10*3/uL [place] Monocytes/100 WBC (Bld) 4.6 % 2 - 10 % [place] Platelet mean volume (Bld) [Entitic vol] 9.8 fL 7.4 - 10.4 fL [place] Platelets (Bld) [#/Vol] 276 10*3/uL 140 - 440 10*3/uL [place] RBC (Bld) [#/Vol] 4.33 10*6/uL 3.8 - 5.2 10*6/uL [place] WBC (Bld) [#/Vol] 5.7 10*3/uL 3.6 - 10.7 10*3/uL [place] [facility], [facility] [address] , [address] Hemogram w/ Autodiffon 04-26 Abs Baso Cnt 0.0 10*3/uL Normal 0.0-0.2 [facility] Comment on above: Performed By: #### B MP3, HEMDF, TROPN #### [facility] [address] [place] [address] Abs Neutrophile Cnt 4.2 10*3/uL Normal 1.8-7.0 [facility] Comment on above: Performed By: #### B MP3, HEMDF, TROPN #### [facility] [address] [place] [address] Basophils/100 WBC (Bld) 0.7 % Normal 0.0-2.0 [facility] Comment on above: Performed By: #### B MP3, HEMDF, TROPN #### [facility] [address] [place] [address] Eosinophils (Bld) [#/Vol] 0.1 10*3/uL Normal 0.0-0.5 [facility] Comment on above: Performed By: #### B MP3, HEMDF, TROPN #### [facility] [address] [place] [address] Eosinophils/100 WBC (Bld) 1.6 % Normal 1.0-6.0 [facility] Comment on above: Performed By: #### B MP3, HEMDF, TROPN #### [facility] [address] [place] [address] Erythrocyte distribution width (RBC) [Ratio] 13.3 % Normal 11.5-14.5 [facility] Comment on above: Performed By: #### B MP3, HEMDF, TROPN #### [facility] [address] [place] [address] Granulocytes/100 WBC (Bld) 73.9 % Normal 40.0-80.0 [facility] Comment on above: Performed By: #### B MP3, HEMDF, TROPN #### [facility] [address] [place] [address] Hematocrit (Bld) [Volume fraction] 38.4 % Normal 35.0-47.0 [facility] Comment on above: Performed By: #### B MP3, HEMDF, TROPN #### [facility] [address] [place] [address] Hemoglobin (Bld) [Mass/Vol] 13.0 g/dL Normal 11.7-16. 0 [facility] Comment on above: Performed By: #### B MP3, HEMDF, TROPN #### [facility] [address] [place] [address] Lymphocytes (Bld) [#/Vol] 1.1 10*3/uL Normal 1.0-4.3 [facility] Comment on above: Performed By: #### B MP3, HEMDF, TROPN #### [facility] [address] [place] [address] Lymphocytes/100 WBC (Bld) 19.2 % Low 20.0-40.0 [facility] Comment on above: Performed By: #### B MP3, HEMDF, TROPN #### [facility] [address] [place] [address] MCH (RBC) [Entitic mass] 30.1 pg Normal 26.0-34.0 [facility] Comment on above: Performed By: #### B MP3, HEMDF, TROPN #### [facility] [address] [place] [address] MCHC (RBC) [Mass/Vol] 33.9 % Normal 32.0-36.0 [facility] Comment on above: Performed By: #### B MP3, HEMDF, TROPN #### [facility] [address] [place] [address] MCV (RBC) [Entitic vol] 88.8 fL Normal 79.0-98.0 [facility] Comment on above: Performed By: #### B MP3, HEMDF, TROPN #### [facility] [address] [place] [address] Monocytes (Bld) [#/Vol] 0.3 10*3/uL Normal 0.0-0.8 [facility] Comment on above: Performed By: #### B MP3, HEMDF, TROPN #### [facility] [address] [place] [address] Monocytes/100 WBC (Bld) 4.6 % Normal 2.0-10.0 [facility] Comment on above: Performed By: #### B MP3, HEMDF, TROPN #### [facility] [address] [place] [address] Platelet mean volume (Bld) [Entitic vol] 9.8 fL Normal 7.4-10.4 [facility] Comment on above: Performed By: #### B MP3, HEMDF, TROPN #### [facility] [address] [place] [address] Platelets (Bld) [#/Vol] 276 10*3/uL Normal 140-440 [facility] Comment on above: Performed By: #### B MP3, HEMDF, TROPN #### [facility] [address] [place] [address] RBC (Bld) [#/Vol] 4.33 10*6/uL Normal 3.80-5.20 [facility] Comment on above: Performed By: #### B MP3, HEMDF, TROPN #### [facility] [address] [place] [address] WBC (Bld) [#/Vol] 5.7 10*3/uL Normal 3.6-10.7 [facility] Comment on above: Performed By: #### B MP3, HEMDF, TROPN #### [facility] [address] [place] [address] Troponin Ion 04-26-2019 Troponin I.cardiac [Mass/Vol] ng/mL Normal 0.000-0.034 [facility] Comment on above: Result Comment: . Performed By: #### B MP3, HEMDF, TROPN #### [facility] [address] [place] [address] Troponin x1on 04-26-2019 Troponin I.cardiac [Mass/Vol] ng/mL 0 - 0.034 ng/mL [facility] [place] Comment on above: . Test Performed by [facility], [address] , [place], [place] [address] [facility], [place] XR CHEST STANDARD (2 VW)on 06-26-2018 Patient Name: LAYLA HIGUERA ---Diagnostic Radiology--- Exam Date/Time 04/26/2019 11:39:44 EST Exam CR Chest PA/LAT Ordering Physician DC GUZMAN Accession Number [id number] CPT4 Codes 62599 () Reason For Exam cough dyspnea COPD Report CHEST X-RAY PA/LATERAL CLINICAL INDICATION: Cough and dyspnea Frontal and lateral plain films of the chest were obtained. COMPARISON: 05/13/2018 FINDINGS: The cardiac silhouette is within normal limits. Sternotomy wires are now noted. No focal consolidation is seen within the lungs. No pleural effusion or pneumothorax is identified. The bony structures of the chest are unremarkable as visualized for the patient's age. IMPRESSION: No acute cardiopulmonary disease. Report Dictated on --- Final --- Dictating Physician: MD HUERTA JONATHAN R Signed Date and Time: 04/26/2019 11:56 am Signed by: MD HUERTA JONATHAN R Transcribed Date and Time: 04/26/2019 11:57 [place], [place] Bhavesh, [facility] Incoming Radiology Results From [facility] - 04/26/2019 11:57 AM EST Patient Name: LAYLA HIGUERA ---Diagnostic Radiology--- Exam Date/Time 04/26/2019 11:39:44 EST Exam CR Chest PA/LAT Ordering Physician DC GUZMAN Accession Number [id number] CPT4 Codes 63845 () Reason For Exam cough dyspnea COPD Report CHEST X-RAY PA/LATERAL CLINICAL INDICATION: Cough and dyspnea Frontal and lateral plain films of the chest were obtained. COMPARISON: 05/13/2018 FINDINGS: The cardiac silhouette is within normal limits. Sternotomy wires are now noted. No focal consolidation is seen within the lungs. No pleural effusion or pneumothorax is identified. The bony structures of the chest are unremarkable as visualized for the patient's age. IMPRESSION: No acute cardiopulmonary disease. Report Dictated on --- Final --- Dictating Physician: MD HUERTA JONATHAN R Signed Date and Time: 04/26/2019 11:56 am Signed by: MD HUERTA JONATHAN R Transcribed Date and Time: 04/26/2019 11:57 [facility], [place] MG Breast Tomosynthesis Diag nostic BIon 11-23-2018 MG Breast Tomosynthesis Diagnostic BI Patient Name: LAYLA HIGUERA Mammography Exam Date/Time 11/23/2018 14:29:23 EDT Exam MG Breast Tomosynthesis BI Ordering Physician SUSAN TEAGUE D.O. Accession Number [id number] CPT4 Codes 57724 (MG Breast Tomosynthesis BI), 77589 (MG MAMMO 2D DIAG BILAT) Reason For Exam breast pain N64.4 Report PATIENT HISTORY: Patient is postmenopausal. Family history of unknown cancer at age 61 in brother, unknown cancer at age 70 in maternal grandmother. Took hormonal contraceptives for 6 months. Patient is a former smoker, and smoked for 42 years. Patient's BMI is 31.2. TIME SINCE LAST MAMMOGRAM: Last mammogram was performed 7 months ago. REASON FOR EXAM: clinical finding. INDICATED PROBLEM: Indicated problem(s): right breast palpable abnormality Left breast palpable abnormality Bilateral palpable abnormality. PROCEDURE: MG BREAST TOMOSYNTHESIS BL: NOVEMBER 23, 2018 - 2D/3D Procedure 3D Bilateral CC and MLO view(s) were taken. 2D Bilateral CC and MLO view(s) were taken. Prior study comparison: May 04, 2018, bilateral MG breast tomosynthesis bl performed at [facility]. May 30, 2017, bilateral MG breast tomosynthesis bl scr performed at [facility]. May 05, 2015, mammogram performed at [facility]. September 12, 2013, bilateral mammogram performed at [facility]. TISSUE DENSITY: There are scattered fibroglandular densities. . FINDINGS: The patient presents today for bilateral palpable masses, two within the left breast and one within the right breast. Mammographic images show no suspicious masses, microcalcifications, or areas of architectural distortion. There is no mammographic abnormality underlying the areas of palpable concern. No skin thickening or nipple retraction is identified. Ultrasound was performed for further evaluation. Grayscale sonographic images of both breasts show no suspicious masses or areas of architectural distortion. There is no sonographic abnormality underlying the areas of palpable concern. IMPRESSION: No mammographic or sonographic evidence of malignancy within either breast. Markings on images: BB's = Nipples; skin lesions [place] = Palpable Line = Scar US BREAST LIMITED RIGHT: NOVEMBER 23, 2018 - Technologist: Swati Partida RDMS US BREAST LIMITED LEFT: NOVEMBER 23, 2018 - Technologist: Swati Partida RDMS 2D digital mammography and tomosynthesis imaging were performed and reviewed with CAD. ASSESSMENT: Category 1 Negative (Overall) RECOMMENDATION: Clinical correlation of both breasts. Routine screening mammogram of both breasts in 1 year. . Report Dictated on Final Signed Date and Time: 11/23/2018 2:53 pm Signed by: MD JOSEPH YUN ROBERT [facility] US Breast Limited Lefton US Breast Limited Left Patient Name: LAYLA HIGUERA Ultrasound Exam Date/Time 11/23/2018 14:44:35 EDT Exam US Breast Limited Left Ordering Physician SUSAN TEAGUE D.O. Accession Number [id number] CPT4 Codes 44540 () Reason For Exam palp lump Report PATIENT HISTORY: Patient is postmenopausal. Family history of unknown cancer at age 61 in brother, unknown cancer at age 70 in maternal grandmother. Took hormonal contraceptives for 6 months. Patient is a former smoker, and smoked for 42 years. Patient's BMI is 31.2. TIME SINCE LAST MAMMOGRAM: Last mammogram was performed 7 months ago. REASON FOR EXAM: clinical finding. INDICATED PROBLEM: Indicated problem(s): right breast palpable abnormality Left breast palpable abnormality Bilateral palpable abnormality. PROCEDURE: MG BREAST TOMOSYNTHESIS BL: NOVEMBER 23, 2018 - 2D/3D Procedure 3D Bilateral CC and MLO view(s) were taken. 2D Bilateral CC and MLO view(s) were taken. Prior study comparison: May 04, 2018, bilateral MG breast tomosynthesis bl performed at [facility]. May 30, 2017, bilateral MG breast tomosynthesis bl scr performed at [facility]. May 05, 2015, mammogram performed at [facility]. September 12, 2013, bilateral mammogram performed at [facility]. TISSUE DENSITY: There are scattered fibroglandular densities. . FINDINGS: The patient presents today for bilateral palpable masses, two within the left breast and one within the right breast. Mammographic images show no suspicious masses, microcalcifications, or areas of architectural distortion. There is no mammographic abnormality underlying the areas of palpable concern. No skin thickening or nipple retraction is identified. Ultrasound was performed for further evaluation. Grayscale sonographic images of both breasts show no suspicious masses or areas of architectural distortion. There is no sonographic abnormality underlying the areas of palpable concern. IMPRESSION: No mammographic or sonographic evidence of malignancy within either breast. Markings on images: BB's = Nipples; skin lesions [place] = Palpable Line = Scar US BREAST LIMITED RIGHT: NOVEMBER 23, 2018 - Technologist: Swati Partida RDMS US BREAST LIMITED LEFT: NOVEMBER 23, 2018 - Technologist: Swati Partida RDMS 2D digital mammography and tomosynthesis imaging were performed and reviewed with CAD. ASSESSMENT: Category 1 Negative (Overall) RECOMMENDATION: Clinical correlation of both breasts. Routine screening mammogram of both breasts in 1 year. . Report Dictated on Final Signed Date and Time: 11/23/2018 2:53 pm Signed by: MD JOSEPH YUN ROBERT [facility] US Breast Limited Righton US Breast Limited Right Patient Name: LAYLA HIGUERA Ultrasound Exam Date/Time 11/23/2018 14:44:12 EDT Exam US Breast Limited Right Ordering Physician SUSAN TEAGUE D.O. Accession Number [id number] CPT4 Codes 93965 () Reason For Exam palp lump Report PATIENT HISTORY: Patient is postmenopausal. Family history of unknown cancer at age 61 in brother, unknown cancer at age 70 in maternal grandmother. Took hormonal contraceptives for 6 months. Patient is a former smoker, and smoked for 42 years. Patient's BMI is 31.2. TIME SINCE LAST MAMMOGRAM: Last mammogram was performed 7 months ago. REASON FOR EXAM: clinical finding. INDICATED PROBLEM: Indicated problem(s): right breast palpable abnormality Left breast palpable abnormality Bilateral palpable abnormality. PROCEDURE: MG BREAST TOMOSYNTHESIS BL: NOVEMBER 23, 2018 - 2D/3D Procedure 3D Bilateral CC and MLO view(s) were taken. 2D Bilateral CC and MLO view(s) were taken. Prior study comparison: May 04, 2018, bilateral MG breast tomosynthesis bl performed at [facility]. May 30, 2017, bilateral MG breast tomosynthesis bl scr performed at [facility]. May 05, 2015, mammogram performed at [facility]. September 12, 2013, bilateral mammogram performed at [facility]. TISSUE DENSITY: There are scattered fibroglandular densities. . FINDINGS: The patient presents today for bilateral palpable masses, two within the left breast and one within the right breast. Mammographic images show no suspicious masses, microcalcifications, or areas of architectural distortion. There is no mammographic abnormality underlying the areas of palpable concern. No skin thickening or nipple retraction is identified. Ultrasound was performed for further evaluation. Grayscale sonographic images of both breasts show no suspicious masses or areas of architectural distortion. There is no sonographic abnormality underlying the areas of palpable concern. IMPRESSION: No mammographic or sonographic evidence of malignancy within either breast. Markings on images: BB's = Nipples; skin lesions [place] = Palpable Line = Scar US BREAST LIMITED RIGHT: NOVEMBER 23, 2018 - Technologist: Swati Partida RDMS US BREAST LIMITED LEFT: NOVEMBER 23, 2018 - Technologist: Swati Partida RDMS 2D digital mammography and tomosynthesis imaging were performed and reviewed with CAD. ASSESSMENT: Category 1 Negative (Overall) RECOMMENDATION: Clinical correlation of both breasts. Routine screening mammogram of both breasts in 1 year. . Report Dictated on Final Signed Date and Time: 11/23/2018 2:53 pm Signed by: MD JAKE, DELVIS BACH Normal [facility] ALT (SGPT)on 10-15-2018 ALT [Catalytic activity/Vol] 24 U/L Normal 13-69 [facility] Comment on above: Performed By: #### L IPD2, ALT3, BMP3 #### [facility] [address] [place] [address] Basic Metabolic Panelon 10-03 Anion gap [Moles/Vol] 11 Normal [facility] Comment on above: Performed By: #### L IPD2, ALT3, BMP3 #### [facility] [address] [place] [address] Calcium [Mass/Vol] 9.8 mg/dL Normal 8.4-10.4 [facility] Comment on above: Performed By: #### L IPD2, ALT3, BMP3 #### [facility] [address] [place] [address] CO2 [Moles/Vol] 26 mmol/L Normal 22-30 [facility] Comment on above: Performed By: #### L IPD2, ALT3, BMP3 #### [facility] [address] [place] [address] Glucose [Mass/Vol] 153 mg/dL High 70-100 [facility] Comment on above: Performed By: #### L IPD2, ALT3, BMP3 #### [facility] [address] [place] [address] Urea nitrogen [Mass/Vol] 21 mg/dL High 7-20 [facility] Comment on above: Performed By: #### L IPD2, ALT3, BMP3 #### [facility] [address] [place] [address] Creatinine [Mass/Vol] 0.68 mg/dL Normal 0.52-1.25 [facility] Comment on above: Performed By: #### L IPD2, ALT3, BMP3 #### [facility] [address] [place] [address] GFR/1.73 sq M predicted among blacks MDRD (S/P/Bld) [Vol rate/Area] mL/min/{1.73_m2} Normal >60 [facility] Comment on above: Performed By: #### L IPD2, ALT3, BMP3 #### [facility] [address] [place] [address] GFR/1.73 sq M predicted among non-blacks MDRD (S/P/Bld) [Vol rate/Area] mL/min/{1.73_m2} Normal >60 [facility] Comment on above: Result Comment: Sour ce- MDRD equation with creatinine calibration to IDMS(NKDEP) eGFR not recommended for drug dose adjustment Performed By: #### L IPD2, ALT3, BMP3 #### [facility] [address] [place] [address] Chloride [Moles/Vol] 105 mmol/L Normal 98-107 [facility] Comment on above: Performed By: #### L IPD2, ALT3, BMP3 #### [facility] [address] [place] [address] Potassium [Moles/Vol] 4.2 mmol/L Normal 3.5-5.1 [facility] Comment on above: Performed By: #### L IPD2, ALT3, BMP3 #### [facility] [address] [place] [address] Sodium [Moles/Vol] 141 mmol/L Normal 135-145 [facility] Comment on above: Performed By: #### L IPD2, ALT3, BMP3 #### [facility] [address] [place] [address] Lipid Panelon 10-15-2018 Cholesterol in HDL [Mass/Vol] 41 mg/dL Normal 40-60 [facility] Comment on above: Performed By: #### L IPD2, ALT3, BMP3 #### [facility] [address] [place] [address] Cholesterol.total/Cholester ol in HDL [Mass ratio] 5 Normal [facility] Comment on above: Result Comment: Ref Range: < 3 Low Risk for CHD 3-6 Mod Risk for CHD > 6 High Risk for CHD Performed By: #### L IPD2, ALT3, BMP3 #### [facility] [address] [place] [address] Protein [Mass/Vol] 150 mg/dL Abnormal <100 [facility] Comment on above: Performed By: #### L IPD2, ALT3, BMP3 #### [facility] [address] [place] [address] Triglyceride [Mass/Vol] 116 mg/dL Normal <150 [facility] Comment on above: Performed By: #### L IPD2, ALT3, BMP3 #### [facility] [address] [place] [address] Cholesterol [Mass/Vol] 214 mg/dL Abnormal < 200 [facility] Comment on above: Performed By: #### L IPD2, ALT3, BMP3 #### [facility] [address] [place] [address] Glucose Meteron 08-20-2018 Glucose [Mass/Vol] 167 mg/dL High 70-99 [facility] Comment on above: Result Comment: [facility] Performed By: #### T ROP #### [place] [address] Comprehensive Panelon 2018 ALP [Catalytic activity/Vol] 86 U/L Normal 46-116 [facility] Comment on above: Performed By: #### C BCD1 #### [address] [address] Protein [Mass/Vol] 6.9 g/dL Normal 6.4-8.2 [facility] Comment on above: Performed By: #### C BCD1 #### [facility] [address] [place], [place] [address] Bilirubin [Mass/Vol] 0.2 mg/dL Normal 0.2-1.0 [facility] Comment on above: Performed By: #### C BCD1 #### [address] [address] ALT [Catalytic activity/Vol] 22 U/L Normal 12-78 [facility] Comment on above: Performed By: #### C BCD1 #### [facility] [address] [place], [place] [address] AST [Catalytic activity/Vol] 6 U/L Low 9-37 [facility] Comment on above: Performed By: #### C BCD1 #### [facility] [address] [place], [place] [address] Creatinine [Mass/Vol] 0.77 mg/dL Normal 0.51-0.95 [facility] Comment on above: Performed By: #### C BCD1 #### [facility] [address] [place], [place] [address] Albumin [Mass/Vol] 3.1 g/dL Low 3.4-5.0 [facility] Comment on above: Performed By: #### C BCD1 #### [facility] [address] [place], [place] [address] Anion gap [Moles/Vol] 10 mmol/L Normal 8-16 [facility] Comment on above: Performed By: #### C BCD1 #### [facility] [address] [place], [place] [address] CO2 [Moles/Vol] 24 mmol/L Normal 21-32 [facility] Comment on above: Performed By: #### C BCD1 #### [facility] [address] [place], [place] [address] Glucose [Mass/Vol] 185 mg/dL High 70-99 [facility] Comment on above: Performed By: #### C BCD1 #### [facility] [address] [place], [place] [address] Urea nitrogen [Mass/Vol] 15 mg/dL Normal 7-18 [facility] Comment on above: Performed By: #### C BCD1 #### [facility] [address] [place], [place] [address] Calcium [Mass/Vol] 9.0 mg/dL Normal 8.5-10.1 [facility] Comment on above: Performed By: #### C BCD1 #### [facility] [address] [place], [place] [address] Chloride [Moles/Vol] 109 mmol/L High 98-107 [facility] Comment on above: Performed By: #### C BCD1 #### [facility] [address] [place] [address] Potassium [Moles/Vol] 4.2 mmol/L Normal 3.5-5.1 [facility] Comment on above: Performed By: #### C BCD1 #### [facility] [address] [place] [address] Sodium [Moles/Vol] 139 mmol/L Normal 136-145 [facility] Comment on above: Performed By: #### C BCD1 #### [facility] [address] [place] [address] Hemogram/Diffon 08-17-2018 Abs Immature Grans 0.02 thou/cmm Normal 0.00-0.05 [facility] Comment on above: Performed By: #### C BCD1 #### [facility] [address] [place] [address] Abs. Baso 0.05 thou/cmm Normal 0.01-0.08 [facility] Comment on above: Performed By: #### C BCD1 #### [facility] [address] [place] [address] Abs. [place] 0.42 thou/cmm Normal 0.27-0.70 [facility] Comment on above: Performed By: #### C BCD1 #### [facility] [address] [place] [address] Abs. Neut (ANC) 4.34 thou/cmm Normal 1.56-6.13 [facility] Comment on above: Performed By: #### C BCD1 #### [facility] [address] [place] [address] Basophils/100 WBC (Bld) 0.7 % Normal [facility] Comment on above: Performed By: #### C BCD1 #### [facility] [address] [place], [place] [address] Eosinophils (Bld) [#/Vol] 0.19 thou/cmm Normal 0.00-0. 31 [facility] Comment on above: Performed By: #### C BCD1 #### [facility] [address] [place], [place] [address] Eosinophils/100 WBC (Bld) 2.6 % Normal [facility] Comment on above: Performed By: #### C BCD1 #### [facility] [address] [place] [address] Erythrocyte distribution width (RBC) [Ratio] 13.6 % Normal 11.7-14.4 [facility] Comment on above: Performed By: #### C BCD1 #### [facility] [address] [place] [address] Hematocrit (Bld) [Volume fraction] 39.8 % Normal 34.1-44.9 [facility] Comment on above: Performed By: #### C BCD1 #### [facility] [address] [place] [address] Hemoglobin (Bld) [Mass/Vol] 12.6 g/dL Normal 11.2-15. 7 [facility] Comment on above: Performed By: #### C BCD1 #### [facility] [address] [place] [address] Immature Grans 0.30 % Normal [facility] Comment on above: Performed By: #### C BCD1 #### [facility] [address] [place] [address] Lymphocytes (Bld) [#/Vol] 2.15 thou/cmm Normal 1.18-3. 74 [facility] Comment on above: Performed By: #### C BCD1 #### [facility] [address] [place] [address] Lymphocytes/100 WBC (Bld) 30.0 % Normal [facility] Comment on above: Performed By: #### C BCD1 #### [facility] [address] [place] [address] MCH (RBC) [Entitic mass] 28.4 pg Normal 25.6-32.2 [facility] Comment on above: Performed By: #### C BCD1 #### [facility] [address] [place] [address] MCHC (RBC) [Mass/Vol] 31.7 % Normal 31.6-34.8 [facility] Comment on above: Performed By: #### C BCD1 #### [facility] [address] [place], [place] [address] MCV (RBC) [Entitic vol] 89.6 fL Normal 79.4-94.8 [facility] Comment on above: Performed By: #### C BCD1 #### [facility] [address] [place], [place] [address] Monocytes/100 WBC (Bld) 5.9 % Normal [facility] Comment on above: Performed By: #### C BCD1 #### [facility] [address] [place], [place] [address] Platelet mean volume (Bld) [Entitic vol] 12.5 fL High 9.4-12.3 [facility] Comment on above: Performed By: #### C BCD1 #### [facility] [address] [place], [place] [address] Platelets (Bld) [#/Vol] 244 thou/cmm Normal 182-369 [facility] Comment on above: Performed By: #### C BCD1 #### [facility] [address] [place], [place] [address] RBC (Bld) [#/Vol] 4.44 mil/cmm Normal 3.93-5.22 [facility] Comment on above: Performed By: #### C BCD1 #### [facility] [address] [place], [place] [address] RDW SD 44.8 fl Normal 36.4-46.3 [facility] Comment on above: Performed By: #### C BCD1 #### [facility] [address] [place], [place] [address] Seg Neutrophil 60.5 % Normal [facility] Comment on above: Performed By: #### C BCD1 #### [facility] [address] [place], [place] [address] WBC (Bld) [#/Vol] 7.17 thou/cmm Normal 3.98-10.04 [facility] Comment on above: Performed By: #### C BCD1 #### [facility] [address] [place], [place] [address] Lipase Bloodon 08-17-2018 Lipase Blood 127 U/L Normal 73-393 [facility] Comment on above: Performed By: #### C BCD1 #### [facility] [address] [place], [place] [address] MDRD GFRon 08-17-2018 GFR/1.73 sq M predicted among non-blacks MDRD (S/P/Bld) [Vol rate/Area] mL/min/{1.73_m2} Normal >60mL/min/1. 73m2 [facility] Comment on above: Result Comment: If t he patient is , multiply the result by 1.210. Performed By: #### T ROP #### [place] [address] Basic Panelon 08-16-2018 Creatinine [Mass/Vol] 0.71 mg/dL Normal 0.51-0.95 [facility] Comment on above: Performed By: #### C BCD1 #### [address] [address] Glucose [Mass/Vol] 115 mg/dL High 70-99 [facility] Comment on above: Performed By: #### C BCD1 #### [address] [address] Anion gap [Moles/Vol] 10 mmol/L Normal 8-16 [facility] Comment on above: Performed By: #### C BCD1 #### [address] [address] CO2 [Moles/Vol] 25 mmol/L Normal 21-32 [facility] Comment on above: Performed By: #### C BCD1 #### [address] [address] Urea nitrogen [Mass/Vol] 11 mg/dL Normal 7-18 [facility] Comment on above: Performed By: #### C BCD1 #### [address] [address] Calcium [Mass/Vol] 8.8 mg/dL Normal 8.5-10.1 [facility] Comment on above: Performed By: #### C BCD1 #### [facility] [address] [place], [place] [address] Chloride [Moles/Vol] 111 mmol/L High 98-107 [facility] Comment on above: Performed By: #### C BCD1 #### [facility] [address] [place], [place] [address] Potassium [Moles/Vol] 3.6 mmol/L Normal 3.5-5.1 [facility] Comment on above: Performed By: #### C BCD1 #### [facility] [address] [place], [place] [address] Sodium [Moles/Vol] 142 mmol/L Normal 136-145 [facility] Comment on above: Performed By: #### C BCD1 #### [facility] [address] [place], [place] [address] Basic Panelon 08-15-2018 Creatinine [Mass/Vol] 0.58 mg/dL Normal 0.51-0.95 [facility] Comment on above: Performed By: #### C BCD1 #### [facility] [address] [place], [place] [address] Anion gap [Moles/Vol] 10 mmol/L Normal 8-16 [facility] Comment on above: Performed By: #### C BCD1 #### [facility] [address] [place], [place] [address] CO2 [Moles/Vol] 23 mmol/L Normal 21-32 [facility] Comment on above: Performed By: #### C BCD1 #### [facility] [address] [place], [place] [address] Urea nitrogen [Mass/Vol] 5 mg/dL Low 7-18 [facility] Comment on above: Performed By: #### C BCD1 #### [facility] [address] [place], [place] [address] Calcium [Mass/Vol] 7.4 mg/dL Low 8.5-10.1 [facility] Comment on above: Performed By: #### C BCD1 #### [facility] [address] [place], [place] [address] Glucose [Mass/Vol] 211 mg/dL High 70-99 [facility] Comment on above: Performed By: #### C BCD1 #### [facility] [address] [place] [address] Chloride [Moles/Vol] 114 mmol/L High 98-107 [facility] Comment on above: Performed By: #### C BCD1 #### [facility] [address] [place], [place] [address] Potassium [Moles/Vol] 3.1 mmol/L Low 3.5-5.1 [facility] Comment on above: Performed By: #### C BCD1 #### [facility] [address] [place] [address] Sodium [Moles/Vol] 144 mmol/L Normal 136-145 [facility] Comment on above: Performed By: #### C BCD1 #### [facility] [address] [place] [address] Hemogramon 08-15-2018 Erythrocyte distribution width (RBC) [Ratio] 13.9 % Normal 11.7-14.4 [facility] Comment on above: Performed By: #### T ROP #### [facility] [address] [place] [address] Hematocrit (Bld) [Volume fraction] 38.3 % Normal 34.1-44.9 [facility] Comment on above: Performed By: #### T ROP #### [facility] [address] [place] [address] Hemoglobin (Bld) [Mass/Vol] 12.0 g/dL Normal 11.2-15. 7 [facility] Comment on above: Performed By: #### T ROP #### [facility] [address] [place] [address] MCH (RBC) [Entitic mass] 28.0 pg Normal 25.6-32.2 [facility] Comment on above: Performed By: #### T ROP #### [facility] [address] [place] [address] MCHC (RBC) [Mass/Vol] 31.3 % Low 31.6-34.8 [facility] Comment on above: Performed By: #### T ROP #### [facility] [address] [place] [address] MCV (RBC) [Entitic vol] 89.5 fL Normal 79.4-94.8 [facility] Comment on above: Performed By: #### T ROP #### [facility] [address] [place] [address] Platelet mean volume (Bld) [Entitic vol] 12.4 fL High 9.4-12.3 [facility] Comment on above: Performed By: #### T ROP #### [facility] [address] [place] [address] Platelets (Bld) [#/Vol] 241 thou/cmm Normal 182-369 [facility] Comment on above: Performed By: #### T ROP #### [facility] [address] [place] [address] RBC (Bld) [#/Vol] 4.28 mil/cmm Normal 3.93-5.22 [facility] Comment on above: Performed By: #### T ROP #### [facility] [address] [place] [address] RDW SD 45.1 fl Normal 36.4-46.3 [facility] Comment on above: Performed By: #### T ROP #### [facility] [address] [place] [address] WBC (Bld) [#/Vol] 6.41 thou/cmm Normal 3.98-10.04 [facility] Comment on above: Performed By: #### T ROP #### [facility] [address] [place] [address] Hgb A1con 08-15-2018 HbA1c (Bld) [Mass fraction] 8.4 % High 4.2-6.3 [facility] Comment on above: Result Comment: Meth od is National Glycohemoglobin Standardization Program (NGSP) compliant. Performed By: #### C BCD1 #### [facility] [address] [place] [address] HbA1c (Bld) [Mass fraction] 194 mg/dl Normal [facility] Comment on above: Performed By: #### C BCD1 #### [facility] [address] [place], [place] [address] Magnesium Bloodon 08-15-2018 Magnesium [Mass/Vol] 1.6 mg/dL Normal 1.6-2.6 [facility] Comment on above: Performed By: #### C BCD1 #### [facility] [address] [place], [place] [address] Comprehensive Panelon 2018 ALP [Catalytic activity/Vol] 78 U/L Normal 46-116 [facility] Comment on above: Performed By: #### T ROP #### [facility] [address] [place], [place] [address] Protein [Mass/Vol] 7.1 g/dL Normal 6.4-8.2 [facility] Comment on above: Performed By: #### T ROP #### [facility] [address] [place], [place] [address] Bilirubin [Mass/Vol] 0.3 mg/dL Normal 0.2-1.0 [facility] Comment on above: Performed By: #### T ROP #### [facility] [address] [place], [place] [address] ALT [Catalytic activity/Vol] 21 U/L Normal 12-78 [facility] Comment on above: Performed By: #### T ROP #### [facility] [address] [place], [place] [address] AST [Catalytic activity/Vol] 6 U/L Low 9-37 [facility] Comment on above: Performed By: #### T ROP #### [facility] [address] [place], [place] [address] Creatinine [Mass/Vol] 0.68 mg/dL Normal 0.51-0.95 [facility] Comment on above: Performed By: #### T ROP #### [facility] [address] [place], [place] [address] Glucose [Mass/Vol] 238 mg/dL High 70-99 [facility] Comment on above: Performed By: #### T ROP #### [facility] [address] [place], [place] [address] Albumin [Mass/Vol] 3.5 g/dL Normal 3.4-5.0 [facility] Comment on above: Performed By: #### T ROP #### [facility] [address] [place], [place] [address] Anion gap [Moles/Vol] 7 mmol/L Low 8-16 [facility] Comment on above: Performed By: #### T ROP #### [facility] [address] [place], [place] [address] Calcium [Mass/Vol] 9.4 mg/dL Normal 8.5-10.1 [facility] Comment on above: Performed By: #### T ROP #### [facility] [address] [place], [place] [address] CO2 [Moles/Vol] 29 mmol/L Normal 21-32 [facility] Comment on above: Performed By: #### T ROP #### [facility] [address] [place] [address] Urea nitrogen [Mass/Vol] 12 mg/dL Normal 7-18 [facility] Comment on above: Performed By: #### T ROP #### [place] [address] Chloride [Moles/Vol] 106 mmol/L Normal 98-107 [facility] Comment on above: Performed By: #### T ROP #### [place] [address] Potassium [Moles/Vol] 3.6 mmol/L Normal 3.5-5.1 [facility] Comment on above: Performed By: #### T ROP #### [place] [address] Sodium [Moles/Vol] 138 mmol/L Normal 136-145 [facility] Comment on above: Performed By: #### T ROP #### [place] [address] Cult Urineon 08-14-2018 Cult Urine Test performed at [facility] ORGANISM: *Proteus mirabilis (ID: 1) >100,000 CFU/ml Normal [facility] Comment on above: Performed By: #### C BCD1 #### [place] [id number] Hemogram/Diffon 08-14-2018 Abs Immature Grans 0.01 thou/cmm Normal 0.00-0.05 [facility] Comment on above: Performed By: #### T ROP #### [facility] [address] [place] [address] Abs. Baso 0.05 thou/cmm Normal 0.01-0.08 [facility] Comment on above: Performed By: #### T ROP #### [facility] [address] [place] [address] Abs. Chugach 0.54 thou/cmm Normal 0.27-0.70 [facility] Comment on above: Performed By: #### T ROP #### [facility] [address] [place] [address] Abs. Neut (ANC) 3.75 thou/cmm Normal 1.56-6.13 [facility] Comment on above: Performed By: #### T ROP #### [place] [address] Basophils/100 WBC (Bld) 0.8 % Normal [facility] Comment on above: Performed By: #### T ROP #### [place] [address] Eosinophils (Bld) [#/Vol] 0.14 thou/cmm Normal 0.00-0. 31 [facility] Comment on above: Performed By: #### T ROP #### [place] [address] Eosinophils/100 WBC (Bld) 2.2 % Normal [facility] Comment on above: Performed By: #### T ROP #### [place] [address] Erythrocyte distribution width (RBC) [Ratio] 13.7 % Normal 11.7-14.4 [facility] Comment on above: Performed By: #### T ROP #### [place] [address] Hematocrit (Bld) [Volume fraction] 38.4 % Normal 34.1-44.9 [facility] Comment on above: Performed By: #### T ROP #### [facility] [address] [place] [address] Hemoglobin (Bld) [Mass/Vol] 12.0 g/dL Normal 11.2-15. 7 [facility] Comment on above: Performed By: #### T ROP #### [facility] [address] [place] [address] Immature Grans 0.20 % Normal [facility] Comment on above: Performed By: #### T ROP #### [facility] [address] [place] [address] Lymphocytes (Bld) [#/Vol] 1.87 thou/cmm Normal 1.18-3. 74 [facility] Comment on above: Performed By: #### T ROP #### [place] [address] Lymphocytes/100 WBC (Bld) 29.4 % Normal [facility] Comment on above: Performed By: #### T ROP #### [facility] [address] [place] [address] MCH (RBC) [Entitic mass] 28.0 pg Normal 25.6-32.2 [facility] Comment on above: Performed By: #### T ROP #### [facility] [address] [place] [address] MCHC (RBC) [Mass/Vol] 31.3 % Low 31.6-34.8 [facility] Comment on above: Performed By: #### T ROP #### [place] [address] MCV (RBC) [Entitic vol] 89.7 fL Normal 79.4-94.8 [facility] Comment on above: Performed By: #### T ROP #### [place] [address] Monocytes/100 WBC (Bld) 8.5 % Normal [facility] Comment on above: Performed By: #### T ROP #### [place] [address] Platelet mean volume (Bld) [Entitic vol] 12.4 fL High 9.4-12.3 [facility] Comment on above: Performed By: #### T ROP #### [facility] [address] [place] [address] Platelets (Bld) [#/Vol] 230 thou/cmm Normal 182-369 [facility] Comment on above: Performed By: #### T ROP #### [facility] [address] [place] [address] RBC (Bld) [#/Vol] 4.28 mil/cmm Normal 3.93-5.22 [facility] Comment on above: Performed By: #### T ROP #### [place] [address] RDW SD 44.7 fl Normal 36.4-46.3 [facility] Comment on above: Performed By: #### T ROP #### [place] [address] Seg Neutrophil 58.9 % Normal [facility] Comment on above: Performed By: #### T ROP #### [place] [address] WBC (Bld) [#/Vol] 6.36 thou/cmm Normal 3.98-10.04 [facility] Comment on above: Performed By: #### T ROP #### [place] [address] Magnesium Bloodon 08-14-2018 Magnesium [Mass/Vol] 2.1 mg/dL Normal 1.6-2.6 [facility] Comment on above: Performed By: #### T ROP #### [place] [address] Urinalysis Routineon 08-14- 019 Bacteria LM.HPF (Urine sed) [#/Area] 4+ Abnormal None [facility] Comment on above: Performed By: #### T ROP #### [place] [address] Ep Cells Urine 2.3 /hpf Normal 0.0-5.0 [facility] Comment on above: Performed By: #### T ROP #### [facility] [address] [place] [address] Hyaline Cast 0.3 /lpf Normal 0.0-1.0 [facility] Comment on above: Performed By: #### T ROP #### [facility] [address] [place] [address] RBC LM.HPF (Urine sed) [#/Area] 9.9 /[HPF] High 0.0-5.0 [facility] Comment on above: Performed By: #### T ROP #### [facility] [address] [place] [address] WBC LM.HPF (Urine sed) [#/Area] 21.0 /[HPF] Abnormal 0.0-5.0 [facility] Comment on above: Performed By: #### T ROP #### [facility] [address] [place] [address] Appearance (U) CLOUDY Normal [facility] Comment on above: Performed By: #### T ROP #### [facility] [address] [place] [address] Bilirubin (U) [Mass/Vol] Negative Normal Negative [facility] Comment on above: Performed By: #### T ROP #### [place] [address] Color (U) YELLOW Normal [facility] Comment on above: Performed By: #### T ROP #### [place] [address] Glucose Ql (U) >=1000 Abnormal Negative [facility] Comment on above: Performed By: #### T ROP #### [facility] [address] [place] [address] Hemoglobin,Urine Negative Normal Negative [facility] Comment on above: Performed By: #### T ROP #### [place] [address] Ketone Urine Negative Normal Negative [facility] Comment on above: Performed By: #### T ROP #### [place] [address] Leukocytes Esterase TRACE Abnormal Negative [facility] Comment on above: Performed By: #### T ROP #### [facility] [address] [place] [address] Nitrites Urine Positive Abnormal Negative [facility] Comment on above: Performed By: #### T ROP #### [facility] [address] [place] [address] pH (U) 7.5 [pH] Normal 5.0-8.0 [facility] Comment on above: Performed By: #### T ROP #### [place] [address] Protein (U) [Mass/Vol] Negative Normal Negative [facility] Comment on above: Performed By: #### T ROP #### [place] [address] Specific [place], Ur 1.027 Normal 1.005-1.030 [facility] Comment on above: Performed By: #### T ROP #### [place] [address] Urobilinogen,Ur 0.2 EU/dL Normal 0.0-1.0 [facility] Comment on above: Performed By: #### T ROP #### [place] [address] Urine Drug Screenon 08-15-19 19 Urine Amphetamine Non-detected Normal Non-Detected [facility] Comment on above: Performed By: #### T ROP #### [place] [address] Urine Barbiturates Non-detected Normal Non-Detected [facility] Comment on above: Performed By: #### T ROP #### [place] [address] Urine Benzodiazepine Non-detected Normal Non-Detected [facility] Comment on above: Performed By: #### T ROP #### [place] [address] Urine Cocaine Metab Non-detected Normal Non-Detected [facility] Comment on above: Performed By: #### T ROP #### [place] [address] Urine Opiate Non-detected Normal Non-Detected [facility] Comment on above: Performed By: #### T ROP #### [facility] [address] [place] [address] Urine PCP Non-detected Normal Non-Detected [facility] Comment on above: Performed By: #### T ROP #### [facility] [address] [place] [address] Urine THC Non-detected Normal Non-Detected [facility] Comment on above: Result Comment: Urin e Drug Cutoff Levels Urine Amphetamine 500 ng/mL Urine Barbiturate 200 ng/mL Urine Benzodiazepines 200 ng/mL Urine Cocaine 150 ng/mL Urine Phencyclidine (PCP) 25 ng/mL Urine Opiates 300 ng/mL Urine THC 50 ng/mL The results of these analytes are unconfirmed and reported qualitatively as detected or non-detected relative to the cutoff value. Detected results indicate the sample is likely to contain the analyte. Non-detected results indicate that either the sample does not contain the analyte or it is present in concentrations below the cutoff level. This drug screen should be used for medical diagnostic purposes only. Performed By: #### T ROP #### [place] [address] Venous Blood Gason 9 FIO2 Value Not Given Normal [facility] Comment on above: Performed By: #### T ROP #### [place] [address] Base Excess 2.6 mmol/L Normal -3.0-3.0 [facility] Comment on above: Performed By: #### T ROP #### [place] [address] HCO3 (Bld) [Moles/Vol] 28.9 mmol/L Normal 21.0-30.0 [facility] Comment on above: Performed By: #### T ROP #### [place] [address] O2% Sat Venous 78.1 % High 18.0-74.8 [facility] Comment on above: Performed By: #### T ROP #### [place] [address] PCO2 Venous 54.8 mm Hg Normal 40.6-60.0 [facility] Comment on above: Performed By: #### T ROP #### [facility] [address] [place], [place] [address] pH Venous 7.342 Normal 7.320-7.430 [facility] Comment on above: Performed By: #### T ROP #### [facility] [address] [place], [place] [address] PO2 Venous 46.7 mm Hg High 15.9-37.5 [facility] Comment on above: Performed By: #### T ROP #### [facility] [address] [place], [place] [address] Glucose Meteron 06-14-2018 Glucose [Mass/Vol] 155 mg/dL High 70-99 [facility] Comment on above: Result Comment: [facility] Performed By: #### G LMET #### [place] [address] Basic Panelon 06-12-2018 Creatinine [Mass/Vol] 1.03 mg/dL High 0.51-0.95 [facility] Comment on above: Performed By: #### U RIN2 #### [address] [address] Anion gap [Moles/Vol] 12 mmol/L Normal 8-16 [facility] Comment on above: Performed By: #### U RIN2 #### [address] [address] CO2 [Moles/Vol] 24 mmol/L Normal 21-32 [facility] Comment on above: Performed By: #### U RIN2 #### [address] [address] Glucose [Mass/Vol] 136 mg/dL High 70-99 [facility] Comment on above: Performed By: #### U RIN2 #### [address] [address] Urea nitrogen [Mass/Vol] 24 mg/dL High 7-18 [facility] Comment on above: Performed By: #### U RIN2 #### [address] [address] Calcium [Mass/Vol] 8.8 mg/dL Normal 8.5-10.1 [facility] Comment on above: Performed By: #### U RIN2 #### [facility] [address] [place] [address] Chloride [Moles/Vol] 110 mmol/L High 98-107 [facility] Comment on above: Performed By: #### U RIN2 #### [facility] [address] [place] [address] Potassium [Moles/Vol] 4.0 mmol/L Normal 3.5-5.1 [facility] Comment on above: Performed By: #### U RIN2 #### [facility] [address] [place] [address] Sodium [Moles/Vol] 142 mmol/L Normal 136-145 [facility] Comment on above: Performed By: #### U RIN2 #### [facility] [address] [place] [address] CHEST 2 VIEWSon 06-12-2018 CHEST 2 VIEWS Performed at [facility] APPROVED BY: Hussain Pelayo MD EXAMINATION: CHEST RADIOGRAPH (2 VIEW FRONTAL & LATERAL) CLINICAL HISTORY: Chest pain MQ: [id number] Comparison: Prior studies with the most recent performed 5 days ago RESULT: Lines, tubes, and devices: None. Lungs and pleura: Small left pleural effusion with presumed adjacent basilar atelectasis, slightly improved. Right lung is clear. Cardiomediastinal silhouette: Stable mild cardiac enlargement. Other: No acute bony abnormality. Intact sternotomy wires. IMPRESSION: Small left pleural effusion with presumed adjacent basilar atelectasis, slightly improved. Normal [facility] Cult Urineon 06-12-2018 Cult Urine Test performed at [facility] Organisms cultured are indicative of probable nonclean catch specimen or contamination of specimen collection system. No further identification or susceptibility testing will be performed. Please submit new specimen. Plates will be held for 5 days. Normal [facility] Comment on above: Performed By: #### T ROP #### [facility] [address] [place] [address] Hemogramon 06-12-2018 Erythrocyte distribution width (RBC) [Ratio] 15.4 % High 11.7-14.4 [facility] Comment on above: Performed By: #### U RIN2 #### [facility] [address] [place] [address] Hematocrit (Bld) [Volume fraction] 32.0 % Low 34.1-44.9 [facility] Comment on above: Performed By: #### U RIN2 #### [facility] [address] [place] [address] Hemoglobin (Bld) [Mass/Vol] 9.7 g/dL Low 11.2-15. 7 [facility] Comment on above: Performed By: #### U RIN2 #### [facility] [address] [place] [address] MCH (RBC) [Entitic mass] 28.7 pg Normal 25.6-32.2 [facility] Comment on above: Performed By: #### U RIN2 #### [facility] [address] [place] [address] MCHC (RBC) [Mass/Vol] 30.3 % Low 31.6-34.8 [facility] Comment on above: Performed By: #### U RIN2 #### [facility] [address] [place] [address] MCV (RBC) [Entitic vol] 94.7 fL Normal 79.4-94.8 [facility] Comment on above: Performed By: #### U RIN2 #### [facility] [address] [place] [address] Platelet mean volume (Bld) [Entitic vol] 10.7 fL Normal 9.4-12.3 [facility] Comment on above: Performed By: #### U RIN2 #### [facility] 1 [place], [place] [address] Platelets (Bld) [#/Vol] 658 thou/cmm High 182-369 [facility] Comment on above: Performed By: #### U RIN2 #### [facility] [address] [place] [id number] RBC (Bld) [#/Vol] 3.38 mil/cmm Low 3.93-5.22 [facility] Comment on above: Performed By: #### U RIN2 #### [facility] [address] [place] [address] RDW SD 50.5 fl High 36.4-46.3 [facility] Comment on above: Performed By: #### U RIN2 #### [place] [address] WBC (Bld) [#/Vol] 9.60 thou/cmm Normal 3.98-10.04 [facility] Comment on above: Performed By: #### U RIN2 #### [place] [address] MDRD GFRon 06-12-2018 GFR/1.73 sq M predicted among non-blacks MDRD (S/P/Bld) [Vol rate/Area] 53.13 mL/min/{1.73_m2} Normal >60mL/min/1. 73m2 [facility] Comment on above: Result Comment: If t he patient is , multiply the result by 1.210. Performed By: #### G FR #### [place] [address] Urinalysis, reflexon 019 Reflex Comment see below Normal [facility] Comment on above: Result Comment: A ur ine culture has been ordered based on established laboratory criteria. Performed By: #### U RIN2 #### [place] [address] Bacteria LM.HPF (Urine sed) [#/Area] 4+ Abnormal None [facility] Comment on above: Performed By: #### U RIN2 #### [facility] [address] [place] [address] Ep Cells Urine 22.3 /hpf High 0.0-5.0 [facility] Comment on above: Performed By: #### U RIN2 #### [place] [address] Hyaline Cast 5.4 /lpf High 0.0-1.0 [facility] Comment on above: Performed By: #### U RIN2 #### [facility] [address] [place] [address] RBC LM.HPF (Urine sed) [#/Area] 14.9 /[HPF] High 0.0-5.0 [facility] Comment on above: Performed By: #### U RIN2 #### [facility] [address] [place] [address] WBC, reflex 129.60 /hpf High 0.00-5.00 [facility] Comment on above: Performed By: #### U RIN2 #### [facility] [address] [place] [address] Appearance (U) CLOUDY Normal [facility] Comment on above: Performed By: #### U RIN2 #### [facility] [address] [place] [address] Bilirubin (U) [Mass/Vol] Negative Normal Negative [facility] Comment on above: Performed By: #### U RIN2 #### [place] [address] Color (U) YELLOW Normal [facility] Comment on above: Performed By: #### U RIN2 #### [facility] [address] [place] [address] Glucose Ql (U) Negative Normal Negative [facility] Comment on above: Performed By: #### U RIN2 #### [place] [address] Hemoglobin,Urine Negative Normal Negative [facility] Comment on above: Performed By: #### U RIN2 #### [facility] [address] [place] [address] Ketone Urine TRACE Abnormal Negative [facility] Comment on above: Performed By: #### U RIN2 #### [place] [address] Leukocyte esterase Test strip Ql (U) MODERATE Abnormal Negative [facility] Comment on above: Performed By: #### U RIN2 #### [place] [address] Nitrite reflex Negative Normal Negative [facility] Comment on above: Performed By: #### U RIN2 #### [facility] 1 [place], [place] [address] pH (U) 6.5 [pH] Normal 5.0-8.0 [facility] Comment on above: Performed By: #### U RIN2 #### [facility] [address] [place], [place] [address] Protein (U) [Mass/Vol] TRACE Abnormal Negative [facility] Comment on above: Performed By: #### U RIN2 #### [facility] [address] [place], [place] [address] Specific [place], Ur 1.029 Normal 1.005-1.030 [facility] Comment on above: Performed By: #### U RIN2 #### [address] [address] Urobilinogen,Ur 1.0 EU/dL Normal 0.0-1.0 [facility] Comment on above: Performed By: #### U RIN2 #### [place] [address] Basic Panelon 06-10-2018 Creatinine [Mass/Vol] 1.24 mg/dL High 0.51-0.95 [facility] Comment on above: Performed By: #### U RIN2 #### [address] [address] Anion gap [Moles/Vol] 14 mmol/L Normal 8-16 [facility] Comment on above: Performed By: #### U RIN2 #### [address] [address] CO2 [Moles/Vol] 26 mmol/L Normal 21-32 [facility] Comment on above: Performed By: #### U RIN2 #### [address] [address] Glucose [Mass/Vol] 173 mg/dL High 70-99 [facility] Comment on above: Performed By: #### U RIN2 #### [address] [address] Urea nitrogen [Mass/Vol] 25 mg/dL High 7-18 [facility] Comment on above: Performed By: #### U RIN2 #### [facility] [address] [place] [address] Calcium [Mass/Vol] 9.0 mg/dL Normal 8.5-10.1 [facility] Comment on above: Performed By: #### U RIN2 #### [facility] [address] [place] [address] Chloride [Moles/Vol] 103 mmol/L Normal 98-107 [facility] Comment on above: Performed By: #### U RIN2 #### [facility] [address] [place] [address] Potassium [Moles/Vol] 4.1 mmol/L Normal 3.5-5.1 [facility] Comment on above: Performed By: #### U RIN2 #### [facility] [address] [place] [address] Sodium [Moles/Vol] 139 mmol/L Normal 136-145 [facility] Comment on above: Performed By: #### U RIN2 #### [facility] [address] [place] [address] Hemogramon 06-10-2018 Erythrocyte distribution width (RBC) [Ratio] 15.0 % High 11.7-14.4 [facility] Comment on above: Performed By: #### U RIN2 #### [facility] [address] [place] [address] Hematocrit (Bld) [Volume fraction] 31.6 % Low 34.1-44.9 [facility] Comment on above: Performed By: #### U RIN2 #### [facility] [address] [place] [address] Hemoglobin (Bld) [Mass/Vol] 9.8 g/dL Low 11.2-15. 7 [facility] Comment on above: Performed By: #### U RIN2 #### [facility] [address] [place] [address] MCH (RBC) [Entitic mass] 28.7 pg Normal 25.6-32.2 [facility] Comment on above: Performed By: #### U RIN2 #### [facility] [address] [place] [address] MCHC (RBC) [Mass/Vol] 31.0 % Low 31.6-34.8 [facility] Comment on above: Performed By: #### U RIN2 #### [facility] [address] [place] [address] MCV (RBC) [Entitic vol] 92.7 fL Normal 79.4-94.8 [facility] Comment on above: Performed By: #### U RIN2 #### [facility] [address] [place] [address] Platelet mean volume (Bld) [Entitic vol] 10.1 fL Normal 9.4-12.3 [facility] Comment on above: Performed By: #### U RIN2 #### [place] [address] Platelets (Bld) [#/Vol] 728 thou/cmm High 182-369 [facility] Comment on above: Performed By: #### U RIN2 #### [place] [address] RBC (Bld) [#/Vol] 3.41 mil/cmm Low 3.93-5.22 [facility] Comment on above: Performed By: #### U RIN2 #### [place] [address] RDW SD 47.8 fl High 36.4-46.3 [facility] Comment on above: Performed By: #### U RIN2 #### [place] [address] WBC (Bld) [#/Vol] 10.71 thou/cmm High 3.98-10.04 [facility] Comment on above: Performed By: #### U RIN2 #### [facility] [address] [place] [address] Basic Panelon 06-09-2018 Creatinine [Mass/Vol] 1.17 mg/dL High 0.51-0.95 [facility] Comment on above: Performed By: #### U RIN2 #### [place] [address] Anion gap [Moles/Vol] 12 mmol/L Normal 8-16 [facility] Comment on above: Performed By: #### U RIN2 #### [facility] [address] [place], [place] [address] Calcium [Mass/Vol] 9.0 mg/dL Normal 8.5-10.1 [facility] Comment on above: Performed By: #### U RIN2 #### [facility] [address] [place], [place] [address] CO2 [Moles/Vol] 27 mmol/L Normal 21-32 [facility] Comment on above: Performed By: #### U RIN2 #### [facility] [address] [place], [place] [address] Glucose [Mass/Vol] 154 mg/dL High 70-99 [facility] Comment on above: Performed By: #### U RIN2 #### [address] [address] Urea nitrogen [Mass/Vol] 21 mg/dL High 7-18 [facility] Comment on above: Performed By: #### U RIN2 #### [facility] [address] [place], [place] [address] Chloride [Moles/Vol] 103 mmol/L Normal 98-107 [facility] Comment on above: Performed By: #### U RIN2 #### [address] [address] Potassium [Moles/Vol] 4.4 mmol/L Normal 3.5-5.1 [facility] Comment on above: Performed By: #### U RIN2 #### [facility] [address] [place], [place] [address] Sodium [Moles/Vol] 138 mmol/L Normal 136-145 [facility] Comment on above: Performed By: #### U RIN2 #### [facility] [address] [place], [place] [address] Basic Panelon 06-08-2018 Creatinine [Mass/Vol] 1.18 mg/dL High 0.51-0.95 [facility] Comment on above: Performed By: #### U RIN2 #### [facility] [address] [place], [place] [address] Anion gap [Moles/Vol] 13 mmol/L Normal 8-16 [facility] Comment on above: Performed By: #### U RIN2 #### [facility] [address] [place], [place] [address] CO2 [Moles/Vol] 26 mmol/L Normal 21-32 [facility] Comment on above: Performed By: #### U RIN2 #### [facility] [address] [place], [place] [address] Urea nitrogen [Mass/Vol] 20 mg/dL High 7-18 [facility] Comment on above: Performed By: #### U RIN2 #### [facility] [address] [place], [place] [address] Calcium [Mass/Vol] 9.2 mg/dL Normal 8.5-10.1 [facility] Comment on above: Performed By: #### U RIN2 #### [facility] [address] [place], [place] [address] Glucose [Mass/Vol] 173 mg/dL High 70-99 [facility] Comment on above: Performed By: #### U RIN2 #### [facility] [address] [place], [place] [address] Chloride [Moles/Vol] 102 mmol/L Normal 98-107 [facility] Comment on above: Performed By: #### U RIN2 #### [facility] [address] [place], [place] [address] Potassium [Moles/Vol] 4.3 mmol/L Normal 3.5-5.1 [facility] Comment on above: Performed By: #### U RIN2 #### [facility] [address] [place], [place] [address] Sodium [Moles/Vol] 137 mmol/L Normal 136-145 [facility] Comment on above: Performed By: #### U RIN2 #### [facility] [address] [place], [place] [address] Hemogramon 06-08-2018 Erythrocyte distribution width (RBC) [Ratio] 14.6 % High 11.7-14.4 [facility] Comment on above: Performed By: #### U RIN2 #### [facility] [address] [place] [address] Hematocrit (Bld) [Volume fraction] 32.3 % Low 34.1-44.9 [facility] Comment on above: Performed By: #### U RIN2 #### [facility] [address] [place] [address] Hemoglobin (Bld) [Mass/Vol] 9.8 g/dL Low 11.2-15. 7 [facility] Comment on above: Performed By: #### U RIN2 #### [facility] [address] [place] [address] MCH (RBC) [Entitic mass] 28.2 pg Normal 25.6-32.2 [facility] Comment on above: Performed By: #### U RIN2 #### [facility] [address] [place] [address] MCHC (RBC) [Mass/Vol] 30.3 % Low 31.6-34.8 [facility] Comment on above: Performed By: #### U RIN2 #### [facility] [address] [place] [address] MCV (RBC) [Entitic vol] 93.1 fL Normal 79.4-94.8 [facility] Comment on above: Performed By: #### U RIN2 #### [facility] [address] [place] [address] Platelet mean volume (Bld) [Entitic vol] 10.7 fL Normal 9.4-12.3 [facility] Comment on above: Performed By: #### U RIN2 #### [facility] [address] [place] [address] Platelets (Bld) [#/Vol] 632 thou/cmm High 182-369 [facility] Comment on above: Performed By: #### U RIN2 #### [facility] [address] [place] [address] RBC (Bld) [#/Vol] 3.47 mil/cmm Low 3.93-5.22 [facility] Comment on above: Performed By: #### U RIN2 #### [facility] [address] [place], [place] [address] RDW SD 48.0 fl High 36.4-46.3 [facility] Comment on above: Performed By: #### U RIN2 #### [facility] [address] [place], [place] [address] WBC (Bld) [#/Vol] 8.73 thou/cmm Normal 3.98-10.04 [facility] Comment on above: Performed By: #### U RIN2 #### [facility] 1 [place], [place] [address] Basic Panelon 2018 Creatinine [Mass/Vol] 0.88 mg/dL Normal 0.51-0.95 [facility] Comment on above: Performed By: #### P 8 ####[facility] [place], [place] [address] Calcium [Mass/Vol] 8.8 mg/dL Normal 8.5-10.1 [facility] Comment on above: Performed By: #### P 8 ####[facility] [place], [place] [address] Glucose [Mass/Vol] 115 mg/dL High 70-99 [facility] Comment on above: Performed By: #### P 8 ####[facility] [place], [place] [address] Anion gap [Moles/Vol] 12 mmol/L Normal 8-16 [facility] Comment on above: Performed By: #### P 8 ####[facility] [place], [place] [address] CO2 [Moles/Vol] 25 mmol/L Normal 21-32 [facility] Comment on above: Performed By: #### P 8 ####[facility] [place], [place] [address] Urea nitrogen [Mass/Vol] 18 mg/dL Normal 7-18 [facility] Comment on above: Performed By: #### P 8 ####[address] [address] Chloride [Moles/Vol] 107 mmol/L Normal 98-107 [facility] Comment on above: Performed By: #### P 8 ####[facility] [place], [place] [address] Potassium [Moles/Vol] 4.6 mmol/L Normal 3.5-5.1 [facility] Comment on above: Performed By: #### P 8 ####[facility] [place], [place] [address] Sodium [Moles/Vol] 139 mmol/L Normal 136-145 [facility] Comment on above: Performed By: #### P 8 ####[facility] [place], [place] [address] CHEST 2 VIEWSon 2018 CHEST 2 VIEWS Performed at [facility] APPROVED BY: Zenon King MD EXAMINATION: CHEST RADIOGRAPH (2 VIEW FRONTAL & LATERAL) CLINICAL HISTORY: The patient is a 68-year-old female with chest pain. The patient is had recent coronary artery bypass surgery. MQ: XC2_5 Comparison: Chest radiographs from the past 5 days. RESULT: Lines, tubes, and devices: Right internal jugular and left subclavian venous catheters have been removed. Sternal wires are unchanged. EKG leads overlie the chest. Lungs and pleura: There is persistent left lower lobe infiltrate and some left pleural disease. The right costophrenic angle is sharp. The rest of the lungs are clear. Cardiomediastinal silhouette: The heart is at the upper limits of normal in size for an AP upright view. Other: No other significant abnormality is identified. IMPRESSION: There is some residual left lower lobe infiltrate and left pleural disease which is slightly improved from the last chest radiograph. No new active disease involves the rest of chest. Normal [facility] Basic Panelon 06-06-2018 Creatinine [Mass/Vol] 0.89 mg/dL Normal 0.51-0.95 [facility] Comment on above: Performed By: #### P 8 ####[facility] [place], [place] [address] Anion gap [Moles/Vol] 12 mmol/L Normal 8-16 [facility] Comment on above: Performed By: #### P 8 ####[facility] [place], [place] [address] CO2 [Moles/Vol] 29 mmol/L Normal 21-32 [facility] Comment on above: Performed By: #### P 8 ####[facility] [place], [place] [address] Urea nitrogen [Mass/Vol] 22 mg/dL High 7-18 [facility] Comment on above: Performed By: #### P 8 ####[address] [address] Calcium [Mass/Vol] 8.5 mg/dL Normal 8.5-10.1 [facility] Comment on above: Performed By: #### P 8 ####[address] [address] Glucose [Mass/Vol] 134 mg/dL High 70-99 [facility] Comment on above: Performed By: #### P 8 ####[address] [address] Chloride [Moles/Vol] 105 mmol/L Normal 98-107 [facility] Comment on above: Performed By: #### P 8 ####[address] [address] Potassium [Moles/Vol] 4.7 mmol/L Normal 3.5-5.1 [facility] Comment on above: Performed By: #### P 8 ####[address] [address] Sodium [Moles/Vol] 141 mmol/L Normal 136-145 [facility] Comment on above: Performed By: #### P 8 ####[address] [address] Hemogramon 06-06-2018 Erythrocyte distribution width (RBC) [Ratio] 14.1 % Normal 11.7-14.4 [facility] Comment on above: Performed By: #### C BC1 ####[address] [address] Hematocrit (Bld) [Volume fraction] 25.5 % Low 34.1-44.9 [facility] Comment on above: Performed By: #### C BC1 ####[address] [address] Hemoglobin (Bld) [Mass/Vol] 7.7 g/dL Low 11.2-15. 7 [facility] Comment on above: Performed By: #### C BC1 ####[facility] [place], [place] [address] MCH (RBC) [Entitic mass] 28.0 pg Normal 25.6-32.2 [facility] Comment on above: Performed By: #### C BC1 ####[facility] [place], [place] [address] MCHC (RBC) [Mass/Vol] 30.2 % Low 31.6-34.8 [facility] Comment on above: Performed By: #### C BC1 ####[place] [address] MCV (RBC) [Entitic vol] 92.7 fL Normal 79.4-94.8 [facility] Comment on above: Performed By: #### C BC1 ####[place] [address] Nucleated RBC (Bld) [#/Vol] 0.04 thou/cmm High 0.00- 0.01 [facility] Comment on above: Performed By: #### C BC1 ####[place] [id number] Nucleated RBC/100 WBC (Bld) [Ratio] 0.4 % High 0.0-0.2 [facility] Comment on above: Performed By: #### C BC1 ####[address] [address] Platelet mean volume (Bld) [Entitic vol] 11.1 fL Normal 9.4-12.3 [facility] Comment on above: Performed By: #### C BC1 ####[address] [address] Platelets (Bld) [#/Vol] 435 thou/cmm High 182-369 [facility] Comment on above: Performed By: #### C BC1 ####[address] [address] RBC (Bld) [#/Vol] 2.75 mil/cmm Low 3.93-5.22 [facility] Comment on above: Performed By: #### C BC1 ####[address] [address] RDW SD 47.2 fl High 36.4-46.3 [facility] Comment on above: Performed By: #### C BC1 ####[place] [id number] WBC (Bld) [#/Vol] 9.11 thou/cmm Normal 3.98-10.04 [facility] Comment on above: Performed By: #### C BC1 ####[place] [address] Basic Panelon 06-05-2018 Creatinine [Mass/Vol] 0.86 mg/dL Normal 0.51-0.95 [facility] Comment on above: Performed By: #### P 8 ####[address] [address] Anion gap [Moles/Vol] 10 mmol/L Normal 8-16 [facility] Comment on above: Performed By: #### P 8 ####[address] [address] CO2 [Moles/Vol] 29 mmol/L Normal 21-32 [facility] Comment on above: Performed By: #### P 8 ####[place] [address] Urea nitrogen [Mass/Vol] 23 mg/dL High 7-18 [facility] Comment on above: Performed By: #### P 8 ####[address] [address] Calcium [Mass/Vol] 8.2 mg/dL Low 8.5-10.1 [facility] Comment on above: Performed By: #### P 8 ####[address] [address] Glucose [Mass/Vol] 135 mg/dL High 70-99 [facility] Comment on above: Performed By: #### P 8 ####[facility] [place], [place] [address] Chloride [Moles/Vol] 107 mmol/L Normal 98-107 [facility] Comment on above: Performed By: #### P 8 ####[facility] [place], [place] [address] Potassium [Moles/Vol] 4.1 mmol/L Normal 3.5-5.1 [facility] Comment on above: Performed By: #### P 8 ####[facility] [place], [place] [address] Sodium [Moles/Vol] 142 mmol/L Normal 136-145 [facility] Comment on above: Performed By: #### P 8 ####[facility] [place], [place] [address] CHEST 1 VIEWon 06-05-2018 CHEST 1 VIEW Performed at [facility] APPROVED BY: Zenon King MD EXAMINATION: CHEST RADIOGRAPH (SINGLE VIEW AP OR PA) Clinical History: The patient is a 67-year-old female with chest pain and shortness of breath. M: XC1_4 Comparison: Chest radiographs from the past 4 days. RESULT: Lines, tubes, and devices: The right internal jugular venous catheter, sternal wires, and mediastinal clips are stable and unchanged. EKG leads overlie the chest. Lungs and pleura: There is some interval improved aeration in the lower lobes but there still is bilateral medial basilar infiltrate left side greater than right. There is greater visualization of the left costophrenic angle. The right costophrenic angle remains sharp. Cardiomediastinal silhouette: The heart continues to be enlarged. Other: No other significant abnormality is appreciated. IMPRESSION: There is some interval improved aeration of the lower lobes but persistent bibasilar medial infiltrate and some left pleural disease is still present. There is cardiomegaly without evidence of significant interstitial edema. Normal [facility] Hemogramon 06-05-2018 Erythrocyte distribution width (RBC) [Ratio] 13.9 % Normal 11.7-14.4 [facility] Comment on above: Performed By: #### C BC1 ####[address] [address] Hematocrit (Bld) [Volume fraction] 24.6 % Low 34.1-44.9 [facility] Comment on above: Performed By: #### C BC1 ####[facility] [place], [place] [address] Hemoglobin (Bld) [Mass/Vol] 7.7 g/dL Low 11.2-15. 7 [facility] Comment on above: Performed By: #### C BC1 ####[address] [address] MCH (RBC) [Entitic mass] 28.7 pg Normal 25.6-32.2 [facility] Comment on above: Performed By: #### C BC1 ####[address] [address] MCHC (RBC) [Mass/Vol] 31.3 % Low 31.6-34.8 [facility] Comment on above: Performed By: #### C BC1 ####[place] [address] MCV (RBC) [Entitic vol] 91.8 fL Normal 79.4-94.8 [facility] Comment on above: Performed By: #### C BC1 ####[address] [address] Nucleated RBC (Bld) [#/Vol] 0.05 thou/cmm High 0.00- 0.01 [facility] Comment on above: Performed By: #### C BC1 ####[address] [address] Nucleated RBC/100 WBC (Bld) [Ratio] 0.6 % High 0.0-0.2 [facility] Comment on above: Performed By: #### C BC1 ####[address] [address] Platelet mean volume (Bld) [Entitic vol] 11.1 fL Normal 9.4-12.3 [facility] Comment on above: Performed By: #### C BC1 ####[address] [address] Platelets (Bld) [#/Vol] 324 thou/cmm Normal 182-369 [facility] Comment on above: Performed By: #### C BC1 ####[address] [address] RBC (Bld) [#/Vol] 2.68 mil/cmm Low 3.93-5.22 [facility] Comment on above: Performed By: #### C BC1 ####[address] [address] RDW SD 46.1 fl Normal 36.4-46.3 [facility] Comment on above: Performed By: #### C BC1 ####[address] [address] WBC (Bld) [#/Vol] 8.57 thou/cmm Normal 3.98-10.04 [facility] Comment on above: Performed By: #### C BC1 ####[address] [address] Basic Panelon 06-04-2018 Creatinine [Mass/Vol] 0.81 mg/dL Normal 0.51-0.95 [facility] Comment on above: Performed By: #### P 8 ####[address] [address] Anion gap [Moles/Vol] 10 mmol/L Normal 8-16 [facility] Comment on above: Performed By: #### P 8 ####[address] [address] Calcium [Mass/Vol] 8.1 mg/dL Low 8.5-10.1 [facility] Comment on above: Performed By: #### P 8 ####[address] [address] CO2 [Moles/Vol] 27 mmol/L Normal 21-32 [facility] Comment on above: Performed By: #### P 8 ####[address] [address] Glucose [Mass/Vol] 148 mg/dL High 70-99 [facility] Comment on above: Performed By: #### P 8 ####[facility] [place], [place] [address] Urea nitrogen [Mass/Vol] 21 mg/dL High 7-18 [facility] Comment on above: Performed By: #### P 8 ####[facility] [place], [place] [address] Chloride [Moles/Vol] 110 mmol/L High 98-107 [facility] Comment on above: Performed By: #### P 8 ####[facility] [place], [place] [address] Potassium [Moles/Vol] 4.1 mmol/L Normal 3.5-5.1 [facility] Comment on above: Performed By: #### P 8 ####[facility] [place], [place] [address] Sodium [Moles/Vol] 143 mmol/L Normal 136-145 [facility] Comment on above: Performed By: #### P 8 ####[address] [address] CHEST 1 VIEWon 06-04-2018 CHEST 1 VIEW Performed at [facility] APPROVED BY: Zunilda Loyola MD EXAM TITLE: CHEST 1 VIEW DATE: 06/04/2018 05:59 INDICATION: Postoperative COMPARISON: 06/03/2018 FINDINGS: There is continued opacity at left base secondary to atelectasis and pleural fluid. Right lung is relatively clear. There is no visible pneumothorax. Central venous catheter are stable. Heart is mildly enlarged and there are sternotomy wires. IMPRESSION: Stable appearance. Normal [facility] Hemogramon 06-04-2018 Erythrocyte distribution width (RBC) [Ratio] 14.0 % Normal 11.7-14.4 [facility] Comment on above: Performed By: #### C BC1 ####[address] [address] Hematocrit (Bld) [Volume fraction] 23.1 % Low 34.1-44.9 [facility] Comment on above: Performed By: #### C BC1 ####[address] [address] Hemoglobin (Bld) [Mass/Vol] 7.3 g/dL Low 11.2-15. 7 [facility] Comment on above: Performed By: #### C BC1 ####[facility] [place], [place] [address] MCH (RBC) [Entitic mass] 29.1 pg Normal 25.6-32.2 [facility] Comment on above: Performed By: #### C BC1 ####[address] [address] MCHC (RBC) [Mass/Vol] 31.6 % Normal 31.6-34.8 [facility] Comment on above: Performed By: #### C BC1 ####[address] [address] MCV (RBC) [Entitic vol] 92.0 fL Normal 79.4-94.8 [facility] Comment on above: Performed By: #### C BC1 ####[address] [address] Platelet mean volume (Bld) [Entitic vol] 11.6 fL Normal 9.4-12.3 [facility] Comment on above: Performed By: #### C BC1 ####[address] [address] Platelets (Bld) [#/Vol] 245 thou/cmm Normal 182-369 [facility] Comment on above: Performed By: #### C BC1 ####[address] [address] RBC (Bld) [#/Vol] 2.51 mil/cmm Low 3.93-5.22 [facility] Comment on above: Performed By: #### C BC1 ####[address] [address] RDW SD 47.4 fl High 36.4-46.3 [facility] Comment on above: Performed By: #### C BC1 ####[address] [address] WBC (Bld) [#/Vol] 8.24 thou/cmm Normal 3.98-10.04 [facility] Comment on above: Performed By: #### C BC1 ####[facility] [place], [place] [address] Basic Panelon 06-03-2018 Creatinine [Mass/Vol] 0.72 mg/dL Normal 0.51-0.95 [facility] Comment on above: Performed By: #### H EPAP #### [facility] 1 [place], [place] [address] Anion gap [Moles/Vol] 12 mmol/L Normal 8-16 [facility] Comment on above: Performed By: #### H EPAP #### [facility] 1 [place], [place] [address] CO2 [Moles/Vol] 24 mmol/L Normal 21-32 [facility] Comment on above: Performed By: #### H EPAP #### [facility] 1 [place], [place] [address] Urea nitrogen [Mass/Vol] 21 mg/dL High 7-18 [facility] Comment on above: Performed By: #### H EPAP #### [facility] 1 [place], [place] [address] Calcium [Mass/Vol] 7.7 mg/dL Low 8.5-10.1 [facility] Comment on above: Performed By: #### H EPAP #### [facility] 1 [place], [place] [address] Glucose [Mass/Vol] 210 mg/dL High 70-99 [facility] Comment on above: Performed By: #### H EPAP #### [facility] 1 [place], [place] [address] Chloride [Moles/Vol] 110 mmol/L High 98-107 [facility] Comment on above: Performed By: #### H EPAP #### [facility] 1 [place], [place] [address] Potassium [Moles/Vol] 3.8 mmol/L Normal 3.5-5.1 [facility] Comment on above: Performed By: #### H EPAP #### [facility] 1 [place], [place] [address] Sodium [Moles/Vol] 142 mmol/L Normal 136-145 [facility] Comment on above: Performed By: #### H EPAP #### [facility] 1 [place] [address] CHEST 1 VIEWon 06-03-2018 CHEST 1 VIEW Performed at [facility] APPROVED BY: Zenon King MD EXAMINATION: CHEST RADIOGRAPH (SINGLE VIEW AP OR PA) Clinical History: Post-operative / post-procedure assessment, asymptomatic M: [id number] Comparison: Chest radiographs from the past 3 days. RESULT: Lines, tubes, and devices: The right internal jugular venous catheter, sternal wires, and mediastinal clips are stable and unchanged. EKG leads overlie the chest. Lungs and pleura: There is improved depth of inspiration of both lungs. There still is some residual medial left basilar infiltrate and left perihilar atelectasis. Each costophrenic angle is sharp. Cardiomediastinal silhouette: Heart size is at the upper limits of normal for a portable view. Other: No other significant abnormality is appreciated. IMPRESSION: There is improved depth of inspiration of the lungs. There is improved aeration of the left lower lobe and decrease in left-sided pleural effusion. No new active disease involves the rest of the chest. Normal [facility] Ferritinon 06-03-2018 Ferritin [Mass/Vol] 293.80 ng/mL High 8.00-252.00 [facility] Comment on above: Performed By: #### F ERR ####[facility] [place] [address] Hemogramon 06-03-2018 Erythrocyte distribution width (RBC) [Ratio] 13.5 % Normal 11.7-14.4 [facility] Comment on above: Performed By: #### H EPAP #### [facility] 1 [place] [address] Hematocrit (Bld) [Volume fraction] 22.6 % Low 34.1-44.9 [facility] Comment on above: Performed By: #### H EPAP #### [facility] 1 [place] [address] Hemoglobin (Bld) [Mass/Vol] 7.0 g/dL Critically low 11.2 -15.7 [facility] Comment on above: Performed By: #### H EPAP #### [facility] 1 [place], [place] [address] MCH (RBC) [Entitic mass] 28.9 pg Normal 25.6-32.2 [facility] Comment on above: Performed By: #### H EPAP #### [facility] 1 [place], [place] [address] MCHC (RBC) [Mass/Vol] 31.0 % Low 31.6-34.8 [facility] Comment on above: Performed By: #### H EPAP #### [facility] 1 [place] [address] MCV (RBC) [Entitic vol] 93.4 fL Normal 79.4-94.8 [facility] Comment on above: Performed By: #### H EPAP #### [facility] 1 [place] [address] Nucleated RBC (Bld) [#/Vol] 0.02 thou/cmm High 0.00- 0.01 [facility] Comment on above: Performed By: #### H EPAP #### [facility] [address] [place] [address] Nucleated RBC/100 WBC (Bld) [Ratio] 0.2 % Normal 0.0-0.2 [facility] Comment on above: Performed By: #### H EPAP #### [facility] 1 [place], [place] [address] Platelet mean volume (Bld) [Entitic vol] 12.6 fL High 9.4-12.3 [facility] Comment on above: Performed By: #### H EPAP #### [facility] 1 [place], [place] [address] Platelets (Bld) [#/Vol] 181 thou/cmm Low 182-369 [facility] Comment on above: Performed By: #### H EPAP #### [facility] 1 [place], [place] [address] RBC (Bld) [#/Vol] 2.42 mil/cmm Low 3.93-5.22 [facility] Comment on above: Performed By: #### H EPAP #### [facility] 1 [place] [address] RDW SD 47.1 fl High 36.4-46.3 [facility] Comment on above: Performed By: #### H EPAP #### [facility] [address] [place] [address] WBC (Bld) [#/Vol] 9.22 thou/cmm Normal 3.98-10.04 [facility] Comment on above: Performed By: #### H EPAP #### [facility] 1 [place] [address] Basic Panelon 06-02-2018 Creatinine [Mass/Vol] 0.79 mg/dL Normal 0.51-0.95 [facility] Comment on above: Performed By: #### H EPAP #### [facility] [address] [place] [address] Anion gap [Moles/Vol] 10 mmol/L Normal 8-16 [facility] Comment on above: Performed By: #### H EPAP #### [facility] [address] [place] [address] CO2 [Moles/Vol] 23 mmol/L Normal 21-32 [facility] Comment on above: Performed By: #### H EPAP #### [facility] [address] [place] [address] Urea nitrogen [Mass/Vol] 22 mg/dL High 7-18 [facility] Comment on above: Performed By: #### H EPAP #### [facility] [address] [place] [address] Calcium [Mass/Vol] 7.6 mg/dL Low 8.5-10.1 [facility] Comment on above: Performed By: #### H EPAP #### [facility] [address] [place] [address] Glucose [Mass/Vol] 130 mg/dL High 70-99 [facility] Comment on above: Performed By: #### H EPAP #### [facility] [address] [place] [address] Chloride [Moles/Vol] 112 mmol/L High 98-107 [facility] Comment on above: Performed By: #### H EPAP #### [facility] 1 [place] [address] Potassium [Moles/Vol] 3.8 mmol/L Normal 3.5-5.1 [facility] Comment on above: Performed By: #### H EPAP #### [facility] 1 [place] [address] Sodium [Moles/Vol] 141 mmol/L Normal 136-145 [facility] Comment on above: Performed By: #### H EPAP #### [facility] 1 [place] [address] CHEST 1 VIEWon 06-02-2018 CHEST 1 VIEW Performed at [facility] APPROVED BY: Triston Xiao MD EXAMINATION: CHEST RADIOGRAPH (PORTABLE SINGLE VIEW AP) Exam Date/Time: 06/02/2018 9:17 AM Indication: Chest pain; postop day 2 Comparison: Chest x-ray 06/01/2018 RESULT: Lines, tubes, and devices: There is a right IJ catheter which terminates at the cavoatrial junction. Lungs and pleura: There are small bilateral pleural effusions. There is left basilar atelectasis or developing pneumonia. Atelectasis is again noted within the left midlung region. Shallow depth of inspiration. Cardiomediastinal silhouette: Normal in appearance. Bony thorax is appropriate for the patient's age. No pneumothorax is seen. IMPRESSION: WORSENING AERATION AT THE LEFT LUNG BASE WHICH MAY REPRESENT PLEURAL FLUID WITH ADJACENT ATELECTASIS OR DEVELOPING PNEUMONIA. Normal [facility] Hemogramon 06-02-2018 Erythrocyte distribution width (RBC) [Ratio] 13.6 % Normal 11.7-14.4 [facility] Comment on above: Performed By: #### H EPAP #### [facility] 1 [place] [address] Hematocrit (Bld) [Volume fraction] 22.9 % Low 34.1-44.9 [facility] Comment on above: Performed By: #### H EPAP #### [facility] 1 [place] [address] Hemoglobin (Bld) [Mass/Vol] 7.0 g/dL Critically low 11.2 -15.7 [facility] Comment on above: Result Comment: Repe ated AND verified Performed By: #### H EPAP #### [facility] 1 [place] [address] MCH (RBC) [Entitic mass] 28.8 pg Normal 25.6-32.2 [facility] Comment on above: Performed By: #### H EPAP #### [facility] 1 [place] [address] MCHC (RBC) [Mass/Vol] 30.6 % Low 31.6-34.8 [facility] Comment on above: Performed By: #### H EPAP #### [place] [address] MCV (RBC) [Entitic vol] 94.2 fL Normal 79.4-94.8 [facility] Comment on above: Performed By: #### H EPAP #### [facility] 1 [place] [address] Platelet mean volume (Bld) [Entitic vol] 12.7 fL High 9.4-12.3 [facility] Comment on above: Performed By: #### H EPAP #### [facility] 1 [place] [address] Platelets (Bld) [#/Vol] 137 thou/cmm Low 182-369 [facility] Comment on above: Performed By: #### H EPAP #### [place] [address] RBC (Bld) [#/Vol] 2.43 mil/cmm Low 3.93-5.22 [facility] Comment on above: Performed By: #### H EPAP #### [facility] [address] [place] [address] RDW SD 46.6 fl High 36.4-46.3 [facility] Comment on above: Performed By: #### H EPAP #### [place] [address] WBC (Bld) [#/Vol] 9.27 thou/cmm Normal 3.98-10.04 [facility] Comment on above: Performed By: #### H EPAP #### [facility] 1 [place] [address] Iron % Saturationon 06-02-20 18 Iron % Saturation 7 % Low 20-55 [facility] Comment on above: Performed By: #### H EPAP #### [facility] [address] [place] [address] Iron Binding Cap. 112 ug/dL Low 250-450 [facility] Comment on above: Performed By: #### H EPAP #### [facility] [address] [place] [address] Iron Serum 8 ug/dL Low 50-170 [facility] Comment on above: Performed By: #### H EPAP #### [place] [address] Urinalysis Routineon 018 Bacteria LM.HPF (Urine sed) [#/Area] 4+ Abnormal None [facility] Comment on above: Performed By: #### H EPAP #### [place] [address] Ep Cells Urine 0.8 /hpf Normal 0.0-5.0 [facility] Comment on above: Performed By: #### H EPAP #### [place] [address] Hyaline Cast 0.4 /lpf Normal 0.0-1.0 [facility] Comment on above: Performed By: #### H EPAP #### [place] [address] RBC LM.HPF (Urine sed) [#/Area] 2.5 /[HPF] Normal 0.0-5.0 [facility] Comment on above: Performed By: #### H EPAP #### [facility] 1 [place] [address] WBC LM.HPF (Urine sed) [#/Area] 6.7 /[HPF] High 0.0-5.0 [facility] Comment on above: Performed By: #### H EPAP #### [facility] [address] [place] [address] Appearance (U) CLOUDY Normal [facility] Comment on above: Performed By: #### H EPAP #### [facility] [address] [place] [address] Bilirubin (U) [Mass/Vol] Negative Normal Negative [facility] Comment on above: Performed By: #### H EPAP #### [facility] [address] [place] [address] Color (U) YELLOW Normal [facility] Comment on above: Performed By: #### H EPAP #### [facility] [address] [place] [address] Glucose Ql (U) Negative Normal Negative [facility] Comment on above: Performed By: #### H EPAP #### [place] [address] Hemoglobin,Urine Negative Normal Negative [facility] Comment on above: Performed By: #### H EPAP #### [facility] [address] [place] [address] Ketone Urine Negative Normal Negative [facility] Comment on above: Performed By: #### H EPAP #### [facility] [address] [place] [address] Leukocytes Esterase TRACE Abnormal Negative [facility] Comment on above: Performed By: #### H EPAP #### [facility] [address] [place] [address] Nitrites Urine Negative Normal Negative [facility] Comment on above: Performed By: #### H EPAP #### [facility] [address] [place] [address] pH (U) 7.5 [pH] Normal 5.0-8.0 [facility] Comment on above: Performed By: #### H EPAP #### [facility] [address] [place] [address] Protein (U) [Mass/Vol] 30 mg/dL Abnormal Negative [facility] Comment on above: Performed By: #### H EPAP #### [facility] [address] [place] [address] Specific [place], Ur 1.027 Normal 1.005-1.030 [facility] Comment on above: Performed By: #### H EPAP #### [facility] [address] [place] [address] Urobilinogen,Ur 0.2 EU/dL Normal 0.0-1.0 [facility] Comment on above: Performed By: #### H EPAP #### [facility] [address] [place] [address] Basic Panelon 06-01-2018 Creatinine [Mass/Vol] 0.95 mg/dL Normal 0.51-0.95 [facility] Comment on above: Performed By: #### L IP #### [facility] [address] [place] [address] Anion gap [Moles/Vol] 11 mmol/L Normal 8-16 [facility] Comment on above: Performed By: #### L IP #### [place] [address] CO2 [Moles/Vol] 21 mmol/L Normal 21-32 [facility] Comment on above: Performed By: #### L IP #### [facility] [address] [place] [address] Urea nitrogen [Mass/Vol] 19 mg/dL High 7-18 [facility] Comment on above: Performed By: #### L IP #### [place] [address] Calcium [Mass/Vol] 7.4 mg/dL Low 8.5-10.1 [facility] Comment on above: Performed By: #### L IP #### [facility] [address] [place] [address] Glucose [Mass/Vol] 135 mg/dL High 70-99 [facility] Comment on above: Performed By: #### L IP #### [place] [address] Chloride [Moles/Vol] 111 mmol/L High 98-107 [facility] Comment on above: Performed By: #### L IP #### [facility] 1 [place], [place] [address] Potassium [Moles/Vol] 4.3 mmol/L Normal 3.5-5.1 [facility] Comment on above: Performed By: #### L IP #### [facility] [address] [place] [address] Sodium [Moles/Vol] 139 mmol/L Normal 136-145 [facility] Comment on above: Performed By: #### L IP #### [facility] [address] [place] [address] Blood Gas Arterialon 06-01-2 018 Base Excess -5.1 mEq/L Normal -2.5 to 2.5 [facility] Comment on above: Performed By: #### L IP #### [facility] [address] [place] [address] HCO3 (Bld) [Moles/Vol] 21.4 mmol/L Low 22.0-26.0 [facility] Comment on above: Performed By: #### L IP #### [facility] [address] [place] [address] O2% Sat Arterial 98.4 % High 95.0-98.0 [facility] Comment on above: Performed By: #### L IP #### [facility] [address] [place] [address] PCO2 Arterial 47.3 mm Hg High 36.0-46.0 [facility] Comment on above: Performed By: #### L IP #### [facility] [address] [place] [address] pH Arterial 7.274 Low 7.350-7.450 [facility] Comment on above: Performed By: #### L IP #### [facility] [address] [place] [address] PO2 Arterial 142.6 mm Hg High 85.0-96.0 [facility] Comment on above: Performed By: #### L IP #### [facility] [address] [place] [address] FIO2 36 % Normal [facility] Comment on above: Performed By: #### L IP #### [facility] 1 [place] [id number] CHEST 1 VIEWon 06-01-2018 CHEST 1 VIEW Performed at [facility] APPROVED BY: Triston Xiao MD EXAMINATION: CHEST RADIOGRAPH (PORTABLE SINGLE VIEW AP) Exam Date/Time: 06/01/2018 5:35 PM Indication: Central line placement; chest pain Comparison: Chest x-ray 06/01/2018 at 0514 hours RESULT: Lines, tubes, and devices: Right IJ catheter is present terminating at the cavoatrial junction. Left thoracostomy tube has been removed. Mediastinal drain has been removed. Lungs and pleura: There is some mild atelectasis or scarring within the left midlung region. Mild left basilar subsegmental atelectasis. No obvious pleural effusion. Right lung appears clear. Cardiomediastinal silhouette: Normal in appearance. Bony thorax is appropriate for the patient's age. No pneumothorax is seen. IMPRESSION: STATUS POST LEFT CHEST TUBE REMOVAL WITH NO EVIDENCE OF PNEUMOTHORAX. MILD ATELECTASIS OR SCARRING WITHIN THE LEFT MIDLUNG REGION. Normal [facility] CHEST 1 VIEW Performed at [facility] APPROVED BY: Qamar Ndiaye MD PORTABLE FRONTAL CHEST 0514 HOURS: CLINICAL INDICATION: Postoperative chest. COMPARISON: Daily prior chest radiographs and 11/09/2013. A right internal jugular sheath remains terminating at the expected confluence of the internal jugular and brachiocephalic veins. Mediastinal and left thoracostomy tubes appear in unaltered unaltered position. Lung volumes are diminished with right basilar and left perihilar atelectasis. There is no sizable pleural effusion. The cardiac and mediastinal silhouette appears stable. There are findings of median sternotomy. IMPRESSION: Diminished lung volumes with postoperative atelectasis. Remaining life-support equipment as noted. Normal [facility] Hcton 06-01-2018 Hematocrit (Bld) [Volume fraction] 25.2 % Low 34.1-44.9 [facility] Comment on above: Performed By: #### L IP #### [facility] [address] [place] [address] Hemogramon 06-01-2018 Erythrocyte distribution width (RBC) [Ratio] 13.5 % Normal 11.7-14.4 [facility] Comment on above: Performed By: #### L IP #### [facility] [address] [place] [address] Hematocrit (Bld) [Volume fraction] 26.4 % Low 34.1-44.9 [facility] Comment on above: Performed By: #### L IP #### [facility] [address] [place] [address] Hemoglobin (Bld) [Mass/Vol] 8.1 g/dL Low 11.2-15. 7 [facility] Comment on above: Performed By: #### L IP #### [facility] [address] [place] [address] MCH (RBC) [Entitic mass] 29.2 pg Normal 25.6-32.2 [facility] Comment on above: Performed By: #### L IP #### [facility] [address] [place] [address] MCHC (RBC) [Mass/Vol] 30.7 % Low 31.6-34.8 [facility] Comment on above: Performed By: #### L IP #### [facility] [address] [place] [address] MCV (RBC) [Entitic vol] 95.3 fL High 79.4-94.8 [facility] Comment on above: Performed By: #### L IP #### [facility] [address] [place] [address] Platelet mean volume (Bld) [Entitic vol] 11.8 fL Normal 9.4-12.3 [facility] Comment on above: Performed By: #### L IP #### [facility] [address] [place] [address] Platelets (Bld) [#/Vol] 129 thou/cmm Low 182-369 [facility] Comment on above: Performed By: #### L IP #### [facility] [address] [place] [address] RBC (Bld) [#/Vol] 2.77 mil/cmm Low 3.93-5.22 [facility] Comment on above: Performed By: #### L IP #### [facility] [facility] [address] [place] [address] RDW SD 47.1 fl High 36.4-46.3 [facility] Comment on above: Performed By: #### L IP #### [facility] [address] [place] [address] WBC (Bld) [#/Vol] 13.68 thou/cmm High 3.98-10.04 [facility] on [facility] Comment on above: Performed By: #### L IP #### [facility] [address] [place] [address] Hgbon 06-01-2018 Hemoglobin (Bld) [Mass/Vol] 7.8 g/dL Low 11.2-15. 7 [facility] Comment on above: Performed By: #### L IP #### [facility] [address] [place] [address] Magnesium Bloodon 06-01-2018 Magnesium [Mass/Vol] 2.5 mg/dL Normal 1.6-2.6 [facility] Comment on above: Performed By: #### H EPAP #### [place] [address] Magnesium [Mass/Vol] 2.4 mg/dL Normal 1.6-2.6 [facility] Comment on above: Performed By: #### L IP #### [place] [address] Potassium Bloodon 06-01-2018 Potassium [Moles/Vol] 3.9 mmol/L Normal 3.5-5.1 [facility] Comment on above: Performed By: #### H EPAP #### [place] [address] Basic Panelon 05-31-2018 Creatinine [Mass/Vol] 0.78 mg/dL Normal 0.51-0.95 [facility] Comment on above: Performed By: #### G FR #### [place] [address] Anion gap [Moles/Vol] 13 mmol/L Normal 8-16 Ak[facility] on [facility] Comment on above: Performed By: #### G FR #### [address], [place] [address] Calcium [Mass/Vol] 7.9 mg/dL Low 8.5-10.1 [facility] Comment on above: Performed By: #### G FR #### [facility] [address] [place], [place] [address] CO2 [Moles/Vol] 22 mmol/L Normal 21-32 [facility] Comment on above: Performed By: #### G FR #### [facility] [address] [place], [place] [address] Glucose [Mass/Vol] 145 mg/dL High 70-99 [facility] Comment on above: Performed By: #### G FR #### [facility] [address] [place] [address] Urea nitrogen [Mass/Vol] 16 mg/dL Normal 7-18 [facility] Comment on above: Performed By: #### G FR #### [facility] [address] [place], [place] [address] Chloride [Moles/Vol] 112 mmol/L High 98-107 [facility] Comment on above: Performed By: #### G FR #### [facility] [address] [place], [place] [address] Potassium [Moles/Vol] 4.0 mmol/L Normal 3.5-5.1 [facility] Comment on above: Performed By: #### G FR #### [facility] [address] [place], [place] [address] Sodium [Moles/Vol] 143 mmol/L Normal 136-145 [facility] Comment on above: Performed By: #### G FR #### [facility] [address] [place], [place] [address] Blood Gas Arterialon 12-27-2 018 FIO2 32 % Normal [facility] Comment on above: Performed By: #### G FR #### [facility] [address] [place], [place] [address] Base Excess -4.1 mEq/L Normal -2.5 to 2.5 [facility] Comment on above: Performed By: #### G FR #### [facility] [address] [place] [address] HCO3 (Bld) [Moles/Vol] 20.9 mmol/L Low 22.0-26.0 [facility] Comment on above: Performed By: #### G FR #### [facility] [address] [place] [address] O2% Sat Arterial 98.2 % High 95.0-98.0 [facility] Comment on above: Performed By: #### G FR #### [facility] [address] [place] [address] PCO2 Arterial 37.7 mm Hg Normal 36.0-46.0 [facility] Comment on above: Performed By: #### G FR #### [facility] [address] [place] [address] pH Arterial 7.362 Normal 7.350-7.450 [facility] Comment on above: Performed By: #### G FR #### [facility] [address] [place] [address] PO2 Arterial 119.4 mm Hg High 85.0-96.0 [facility] Comment on above: Performed By: #### G FR #### [facility] [address] [address] Base Excess -7.9 mEq/L Normal -2.5 to 2.5 [facility] Comment on above: Performed By: #### G FR #### [facility] [address] [address] HCO3 (Bld) [Moles/Vol] 17.4 mmol/L Low 22.0-26.0 [facility] Comment on above: Performed By: #### G FR #### [facility] [address] [place] [address] O2% Sat Arterial 96.9 % Normal 95.0-98.0 [facility] Comment on above: Performed By: #### G FR #### [facility] [address] [address] PCO2 Arterial 34.4 mm Hg Low 36.0-46.0 [facility] Comment on above: Performed By: #### G FR #### [facility] [address] [place] [address] pH Arterial 7.322 Low 7.350-7.450 [facility] Comment on above: Performed By: #### G FR #### [facility] [address] [place] [address] PO2 Arterial 89.7 mm Hg Normal 85.0-96.0 [facility] Comment on above: Performed By: #### G FR #### [facility] [address] [address] FIO2 30 % Normal [facility] Comment on above: Performed By: #### G FR #### [facility] [address] [place] [address] CHEST 1 VIEWon 05-31-2018 CHEST 1 VIEW Performed at [facility] APPROVED BY: Triston Xiao MD EXAMINATION: CHEST RADIOGRAPH (PORTABLE SINGLE VIEW AP) Exam Date/Time: 05/31/2018 5:33 AM Indication: Postop day 1; evaluate line position Comparison: Chest x-ray done the prior day RESULT: Lines, tubes, and devices: Linkwood-Chaya catheter, mediastinal drain and left thoracostomy tube are unchanged. Lungs and pleura: No focal consolidation, mass or pleural effusion is seen. Cardiomediastinal silhouette: Normal in appearance. Bony thorax is appropriate for the patient's age. No pneumothorax is seen. IMPRESSION: No acute or active intrathoracic abnormality is seen. Normal [facility] Hemogramon 05-31-2018 Erythrocyte distribution width (RBC) [Ratio] 13.1 % Normal 11.7-14.4 [facility] Comment on above: Performed By: #### G FR #### [facility] [address] [place] [address] Hematocrit (Bld) [Volume fraction] 28.7 % Low 34.1-44.9 [facility] Comment on above: Performed By: #### G FR #### [facility] [address] [place] [address] Hemoglobin (Bld) [Mass/Vol] 9.2 g/dL Low 11.2-15. 7 [facility] Comment on above: Performed By: #### G FR #### [facility] [address] [place] [address] MCH (RBC) [Entitic mass] 29.2 pg Normal 25.6-32.2 [facility] Comment on above: Performed By: #### G FR #### [facility] [address] [place] [address] MCHC (RBC) [Mass/Vol] 32.1 % Normal 31.6-34.8 [facility] Comment on above: Performed By: #### G FR #### [facility] [address] [place] [address] MCV (RBC) [Entitic vol] 91.1 fL Normal 79.4-94.8 [facility] Comment on above: Performed By: #### G FR #### [facility] [address] [place] [address] Platelet mean volume (Bld) [Entitic vol] 12.2 fL Normal 9.4-12.3 [facility] Comment on above: Performed By: #### G FR #### [facility] [address] [place] [address] Platelets (Bld) [#/Vol] 148 thou/cmm Low 182-369 [facility] Comment on above: Performed By: #### G FR #### [facility] [address] [place] [address] RBC (Bld) [#/Vol] 3.15 mil/cmm Low 3.93-5.22 [facility] Comment on above: Performed By: #### G FR #### [facility] [address] [place] [address] RDW SD 43.3 fl Normal 36.4-46.3 [facility] Comment on above: Performed By: #### G FR #### [facility] [address] [place] [address] WBC (Bld) [#/Vol] 17.35 thou/cmm High 3.98-10.04 [facility] Comment on above: Performed By: #### G FR #### [facility] [address] [place] [address] Magnesium Bloodon 05-31-2018 Magnesium [Mass/Vol] 2.4 mg/dL Normal 1.6-2.6 [facility] Comment on above: Performed By: #### L IP #### [facility] [address] [place] [address] Protimeon 05-31-2018 INR Coag (PPP) [Relative time] 1.04 {INR} Normal 0.90-1.30 [facility] Comment on above: Result Comment: Note : Reference Range Change Vitamin K Antagonist (VKA) Therapeutic Range: INR 2 to 3 (Target INR of 2.5) Note: For patients treated with VKA drugs, such as warfarin, the [employer] 2012 Guideline recommends a therapeutic INR range of 2 to 3 (target INR of 2.5). This recommendation includes high-risk patients with antiphospholipid syndrome with previous arterial or venous thromboembolism, current-generation mechanical or bioprosthetic aortic heart valve replacement. VKA Therapeutic Range for some Mechanical Valve Replacement: INR 2.5 to 3.5 (Target INR of 3) Note: Patients with mechanical aortic valve replacement and additional risk factors for thromboembolic events (atrial fibrillation, previous thromboembolism, LV dysfunction, hypercoagulable conditions) or an older generation mechanical AVR (i.e., ball in-Cage) or any mechanical MVR should have a INR therapeutic range of 2.5 to 3.5 target INR of 3). Vidhya GH, et al. Chest 2012; 141:7S-47S Deng RA et al. [facility] 2017; 70: 252-289 Performed By: #### G FR #### [facility] [address] [place] [address] PT Coag (PPP) [Time] 10.8 s Normal 9.7-13.0 [facility] Comment on above: Performed By: #### G FR #### [facility] [address] [place] [address] ACT Arterial Panel (i-STAT)o n 05-30-2018 [place] ACT ( i-STAT) 120 sec Normal 74-137 [facility] Comment on above: Performed By: #### P 8 #### [facility] [address] [place] [address] Activated PTTon 05-30-2018 aPTT Coag (Bld) [Time] 28.2 s Normal 23.0-32.4 [facility] Comment on above: Result Comment: Note : New Reference Range Unfractionated Heparin Therapeutic Ranges: Standard Heparin Nomogram: 53 to 78 seconds (anti-Xa level of 0.3 to 0.7 U/mL) Low Dose/ACS Nomogram: 49 to 67 seconds (anti-Xa level of 0.2 to 0.5 U/mL) Stroke Treatment Nomogram: 49 to 67 seconds (anti-Xa level of 0.2 to 0.5 U/mL) Note: The APTT therapeutic range has been determined for the current lot of laboratory APTT reagent in use throughout the [facility]. Performed By: #### G FR #### [place] [address] aPTT Coag (Bld) [Time] 49.9 s High 23.0-32.4 [facility] Comment on above: Result Comment: Note : New Reference Range Unfractionated Heparin Therapeutic Ranges: Standard Heparin Nomogram: 53 to 78 seconds (anti-Xa level of 0.3 to 0.7 U/mL) Low Dose/ACS Nomogram: 49 to 67 seconds (anti-Xa level of 0.2 to 0.5 U/mL) Stroke Treatment Nomogram: 49 to 67 seconds (anti-Xa level of 0.2 to 0.5 U/mL) Note: The APTT therapeutic range has been determined for the current lot of laboratory APTT reagent in use throughout the [facility]. Performed By: #### P 8 #### [place] [address] Basic Panelon 05-30-2018 Creatinine [Mass/Vol] 0.79 mg/dL Normal 0.51-0.95 [facility] Comment on above: Performed By: #### G FR #### [place] [address] Anion gap [Moles/Vol] 13 mmol/L Normal 8-16 [facility] Comment on above: Performed By: #### G FR #### [place] [id number] CO2 [Moles/Vol] 22 mmol/L Normal 21-32 [facility] Comment on above: Performed By: #### G FR #### [facility] [address] [place], [place] [address] Glucose [Mass/Vol] 119 mg/dL High 70-99 [facility] Comment on above: Performed By: #### G FR #### [facility] [address] [place], [place] [address] Urea nitrogen [Mass/Vol] 12 mg/dL Normal 7-18 [facility] Comment on above: Performed By: #### G FR #### [facility] [address] [place], [place] [address] Calcium [Mass/Vol] 8.0 mg/dL Low 8.5-10.1 [facility] Comment on above: Performed By: #### G FR #### [facility] [address] [place], [place] [address] Chloride [Moles/Vol] 113 mmol/L High 98-107 [facility] Comment on above: Performed By: #### G FR #### [facility] [address] [place], [place] [address] Potassium [Moles/Vol] 3.8 mmol/L Normal 3.5-5.1 [facility] Comment on above: Performed By: #### G FR #### [facility] [address] [place], [place] [address] Sodium [Moles/Vol] 144 mmol/L Normal 136-145 [facility] Comment on above: Performed By: #### G FR #### [facility] [address] [place], [place] [address] Blood Gas Arterialon 12--2 018 Base Excess -3.9 mEq/L Normal -2.5 to 2.5 [facility] Comment on above: Performed By: #### P 8 #### [facility] [address] [place], [place] [address] HCO3 (Bld) [Moles/Vol] 21.1 mmol/L Low 22.0-26.0 [facility] Comment on above: Performed By: #### P 8 #### [facility] [address] [place], [place] [address] O2% Sat Arterial 99.0 % High 95.0-98.0 [facility] Comment on above: Performed By: #### P 8 #### [facility] [address] [place] [address] PCO2 Arterial 36.4 mm Hg Normal 36.0-46.0 [facility] Comment on above: Performed By: #### P 8 #### [facility] [address] [address] pH Arterial 7.377 Normal 7.350-7.450 [facility] Comment on above: Performed By: #### P 8 #### [facility] [address] [address] PO2 Arterial 176.9 mm Hg High 85.0-96.0 [facility] Comment on above: Performed By: #### P 8 #### [facility] [address] [address] FIO2 50 % Normal [facility] Comment on above: Performed By: #### P 8 #### [facility] [address] [place] [address] CG8 Arterial Panel (i-STAT)o n 05-30-2018 Base Excess (i-STAT) 0.0 mmol/L Normal -2.0 to 3.0 [facility] Comment on above: Performed By: #### P 8 #### [facility] [address] [place] [address] Glucose [Mass/Vol] 133 mg/dL High 70-99 [facility] Comment on above: Performed By: #### P 8 #### [facility] [address] [address] HCO3 (Bld) [Moles/Vol] 24.9 mmol/L Normal 22.0-26.0 [facility] Comment on above: Performed By: #### P 8 #### [facility] [address] [place] [address] Hematocrit (Bld) [Volume fraction] 29 %PCV Low 38-51 [facility] Comment on above: Performed By: #### P 8 #### [facility] [address] [address] Hemoglobin (Bld) [Mass/Vol] 9.9 g/dL Low 12.0-17. 0 [facility] Comment on above: Performed By: #### P 8 #### [facility] [address] [place] [address] Ionized Calcium (iSTAT) 4.5 mg/dL Normal 4.5-5.3 [facility] Comment on above: Performed By: #### P 8 #### [facility] [address] [address] O2% Sat. (i-STAT) 100.0 % High 95.0-98.0 [facility] Comment on above: Performed By: #### P 8 #### [place] [address] Oxygen (Bld) [Partial pressure] 288.0 mm Hg High 80.0-105.0 [facility] Comment on above: Performed By: #### P 8 #### [place] [address] PCO2 (i-STAT) 41.7 mm Hg Normal 35.0-45.0 [facility] Comment on above: Performed By: #### P 8 #### [place] [address] pH (Bld) 7.384 [pH] Normal 7.350-7.450 [facility] Comment on above: Performed By: #### P 8 #### [address] [address] Potassium [Moles/Vol] 3.5 mmol/L Normal 3.5-4.9 [facility] Comment on above: Performed By: #### P 8 #### [address] [address] Sodium [Moles/Vol] 141 mmol/L Normal 138-146 [facility] Comment on above: Performed By: #### P 8 #### [address] [address] Total CO2 (i-STAT) 26 mmol/L Normal 23-27 [facility] Comment on above: Performed By: #### P 8 #### [facility] [address] [place] [address] CG8 Venous Panel (i-STAT)on 05-30-2018 Base Excess (i-STAT) -3.0 mmol/L Normal -2.0 to 3.0 [facility] Comment on above: Performed By: #### P 8 #### [facility] [address] [place] [id number] Glucose [Mass/Vol] 109 mg/dL High 70-99 [facility] Comment on above: Performed By: #### P 8 #### [facility] [address] [place] [id number] HCO3 (Bld) [Moles/Vol] 22.5 mmol/L Low 23.0-28.0 [facility] Comment on above: Performed By: #### P 8 #### [facility] [address] [place] [address] Hematocrit (Bld) [Volume fraction] 25 %PCV Low 38-51 [facility] Comment on above: Performed By: #### P 8 #### [facility] [address] [place] [address] Hemoglobin (Bld) [Mass/Vol] 8.5 g/dL Low 12.0-17. 0 [facility] Comment on above: Performed By: #### P 8 #### [facility] [address] [place] [address] Ionized Calcium (iSTAT) 4.1 mg/dL Low 4.5-5.3 [facility] Comment on above: Performed By: #### P 8 #### [facility] [address] [place] [address] O2% Sat. (i-STAT) 84.0 % Normal 35.0-85.0 [facility] Comment on above: Performed By: #### P 8 #### [facility] [address] [place], [place] [address] Oxygen (Bld) [Partial pressure] 50.0 mm Hg Normal 20.0-50.0 [facility] Comment on above: Performed By: #### P 8 #### [facility] [address] [place] [id number] PCO2 (i-STAT) 39.3 mm Hg Low 41.0-51.0 [facility] Comment on above: Performed By: #### P 8 #### [facility] [address] [place] [address] pH (Bld) 7.365 [pH] Normal 7.310-7.410 [facility] Comment on above: Performed By: #### P 8 #### [facility] [address] [place] [address] Potassium [Moles/Vol] 3.1 mmol/L Low 3.5-4.9 [facility] Comment on above: Performed By: #### P 8 #### [facility] [address] [place] [address] Sodium [Moles/Vol] 139 mmol/L Normal 138-146 [facility] Comment on above: Performed By: #### P 8 #### [facility] [address] [place] [address] Total CO2 (i-STAT) 24 mmol/L Normal 24-29 [facility] Comment on above: Performed By: #### P 8 #### [facility] [address] [place] [address] CHEST 1 VIEWon 05-30-2018 CHEST 1 VIEW Performed at [facility] APPROVED BY: MELI ROSAS MD EXAM TITLE: PORTABLE AP/PA CHEST X RAY DATE: 05/30/2018 15:33 COMPARISON: 2 view chest x-ray examination dated 05/27/2018 CLINICAL INDICATION/HISTORY: Evaluate tube, line or lead position , Post-operative / post-procedure assessment, asymptomatic ENCOUNTER: Not applicable TECHNIQUE: Single portable AP/PA radiograph of the chest RESULT: Postsurgical changes from coronary artery bypass graft with median sternotomy. Wires appear to be intact. Lines, tubes, and devices: Endotracheal tube present with tube tip approximately 3.4 cm above the marley. Enteric tube noted, appears to loop in the region of the gastric body and the tip overlies the inferior aspect of the esophagus. Side-port overlies the proximal gastric body. Interval insertion of left-sided thoracostomy tube, tip overlies the medial aspect of the left upper lung zone. Right internal jugular central venous sheath with Linkwood-Chaya catheter, catheter tip overlies the main pulmonary artery. Lungs and pleura: Low lung volumes, likely related to poor inspiratory result. Trace left apical pneumothorax. No discrete focal airspace consolidation or effusion. Pulmonary vascular within normal limits. Cardiomediastinal silhouette: Cardiac silhouette not enlarged. Other: Osseous structures and soft tissues grossly intact. IMPRESSION: Findings compatible with interval median sternotomy coronary artery bypass graft. Indwelling enteric tube looped in the region the gastric body and tube tip overlying the inferior esophagus. Repositioning is suggested. Additional interval placement of support lines and catheters, as described. Trace left apical pneumothorax. Short interval chest x-ray examination could be performed to assess for change versus stability, if clinical concern. Normal [facility] Hemogramon 05-30-2018 Erythrocyte distribution width (RBC) [Ratio] 13.0 % Normal 11.7-14.4 [facility] Comment on above: Performed By: #### P 8 #### [facility] [address] [place] [address] Hematocrit (Bld) [Volume fraction] 31.0 % Low 34.1-44.9 [facility] Comment on above: Performed By: #### P 8 #### [facility] [address] [place] [address] Hemoglobin (Bld) [Mass/Vol] 10.0 g/dL Low 11.2-15. 7 [facility] Comment on above: Performed By: #### P 8 #### [facility] [address] [place] [address] MCH (RBC) [Entitic mass] 29.3 pg Normal 25.6-32.2 [facility] Comment on above: Performed By: #### P 8 #### [facility] [address] [place], [place] [address] MCHC (RBC) [Mass/Vol] 32.3 % Normal 31.6-34.8 [facility] Comment on above: Performed By: #### P 8 #### [facility] [address] [place] [id number] MCV (RBC) [Entitic vol] 90.9 fL Normal 79.4-94.8 [facility] Comment on above: Performed By: #### P 8 #### [facility] [address] [place], [place] [address] Platelet mean volume (Bld) [Entitic vol] 11.7 fL Normal 9.4-12.3 [facility] Comment on above: Performed By: #### P 8 #### [facility] [address] [place], [place] [address] Platelets (Bld) [#/Vol] 142 thou/cmm Low 182-369 [facility] Comment on above: Performed By: #### P 8 #### [facility] [address] [place] [id number] RBC (Bld) [#/Vol] 3.41 mil/cmm Low 3.93-5.22 [facility] Comment on above: Performed By: #### P 8 #### [facility] [address] [place] [address] RDW SD 42.7 fl Normal 36.4-46.3 [facility] Comment on above: Performed By: #### P 8 #### [facility] [address] [place] [id number] WBC (Bld) [#/Vol] 14.08 thou/cmm High 3.98-10.04 [facility] Comment on above: Performed By: #### P 8 #### [facility] [address] [place] [address] Erythrocyte distribution width (RBC) [Ratio] 12.9 % Normal 11.7-14.4 [facility] Comment on above: Performed By: #### P 8 #### [facility] [address] [place], [place] [address] Hematocrit (Bld) [Volume fraction] 37.7 % Normal 34.1-44.9 [facility] Comment on above: Performed By: #### P 8 #### [facility] [address] [place], [place] [address] Hemoglobin (Bld) [Mass/Vol] 12.2 g/dL Normal 11.2-15. 7 [facility] Comment on above: Performed By: #### P 8 #### [facility] [address] [place] [address] MCH (RBC) [Entitic mass] 29.2 pg Normal 25.6-32.2 [facility] Comment on above: Performed By: #### P 8 #### [facility] [address] [place] [address] MCHC (RBC) [Mass/Vol] 32.4 % Normal 31.6-34.8 [facility] Comment on above: Performed By: #### P 8 #### [facility] [address] [place] [address] MCV (RBC) [Entitic vol] 90.2 fL Normal 79.4-94.8 [facility] Comment on above: Performed By: #### P 8 #### [facility] [address] [place] [address] Platelet mean volume (Bld) [Entitic vol] 11.8 fL Normal 9.4-12.3 [facility] Comment on above: Performed By: #### P 8 #### [facility] [address] [place] [address] Platelets (Bld) [#/Vol] 264 thou/cmm Normal 182-369 [facility] Comment on above: Performed By: #### P 8 #### [facility] [address] [place] [address] RBC (Bld) [#/Vol] 4.18 mil/cmm Normal 3.93-5.22 [facility] Comment on above: Performed By: #### P 8 #### [facility] [address] [place] [address] RDW SD 42.8 fl Normal 36.4-46.3 [facility] Comment on above: Performed By: #### P 8 #### [facility] [address] [place] [address] WBC (Bld) [#/Vol] 8.47 thou/cmm Normal 3.98-10.04 [facility] Comment on above: Performed By: #### P 8 #### [facility] [address] [place] [address] Magnesium Bloodon 05-30-2018 Magnesium [Mass/Vol] 1.8 mg/dL Normal 1.6-2.6 [facility] Comment on above: Performed By: #### G FR #### [facility] [address] [place], [place] [address] Protimeon 05-30-2018 INR Coag (PPP) [Relative time] 1.19 {INR} Normal 0.90-1.30 [facility] Comment on above: Result Comment: Note : Reference Range Change Vitamin K Antagonist (VKA) Therapeutic Range: INR 2 to 3 (Target INR of 2.5) Note: For patients treated with VKA drugs, such as warfarin, the [employer] 2012 Guideline recommends a therapeutic INR range of 2 to 3 (target INR of 2.5). This recommendation includes high-risk patients with antiphospholipid syndrome with previous arterial or venous thromboembolism, current-generation mechanical or bioprosthetic aortic heart valve replacement. VKA Therapeutic Range for some Mechanical Valve Replacement: INR 2.5 to 3.5 (Target INR of 3) Note: Patients with mechanical aortic valve replacement and additional risk factors for thromboembolic events (atrial fibrillation, previous thromboembolism, LV dysfunction, hypercoagulable conditions) or an older generation mechanical AVR (i.e., ball in-Cage) or any mechanical MVR should have a INR therapeutic range of 2.5 to 3.5 target INR of 3). Vidhya GH, et al. Chest 2012; 141:7S-47S Deng BOURNE et al. [facility] 2017; 70: 252-289 Performed By: #### G FR #### [facility] [address] [place], [place] [address] PT Coag (PPP) [Time] 12.2 s Normal 9.7-13.0 [facility] Comment on above: Performed By: #### G FR #### [facility] [address] [place], [place] [address] Activated PTTon 05-29-2018 aPTT Coag (Bld) [Time] 52.8 s High 23.0-32.4 [facility] Comment on above: Result Comment: Note : New Reference Range Unfractionated Heparin Therapeutic Ranges: Standard Heparin Nomogram: 53 to 78 seconds (anti-Xa level of 0.3 to 0.7 U/mL) Low Dose/ACS Nomogram: 49 to 67 seconds (anti-Xa level of 0.2 to 0.5 U/mL) Stroke Treatment Nomogram: 49 to 67 seconds (anti-Xa level of 0.2 to 0.5 U/mL) Note: The APTT therapeutic range has been determined for the current lot of laboratory APTT reagent in use throughout the [facility]. Performed By: #### E RTRP #### [facility] [address] [place], [place] [address] aPTT Coag (Bld) [Time] 55.5 s High 23.0-32.4 [facility] Comment on above: Result Comment: Note : New Reference Range Unfractionated Heparin Therapeutic Ranges: Standard Heparin Nomogram: 53 to 78 seconds (anti-Xa level of 0.3 to 0.7 U/mL) Low Dose/ACS Nomogram: 49 to 67 seconds (anti-Xa level of 0.2 to 0.5 U/mL) Stroke Treatment Nomogram: 49 to 67 seconds (anti-Xa level of 0.2 to 0.5 U/mL) Note: The APTT therapeutic range has been determined for the current lot of laboratory APTT reagent in use throughout the [facility]. Performed By: #### E RTRP #### [facility] [address] [place], [place] [address] aPTT Coag (Bld) [Time] 41.0 s High 23.0-32.4 [facility] Comment on above: Result Comment: Note : New Reference Range Unfractionated Heparin Therapeutic Ranges: Standard Heparin Nomogram: 53 to 78 seconds (anti-Xa level of 0.3 to 0.7 U/mL) Low Dose/ACS Nomogram: 49 to 67 seconds (anti-Xa level of 0.2 to 0.5 U/mL) Stroke Treatment Nomogram: 49 to 67 seconds (anti-Xa level of 0.2 to 0.5 U/mL) Note: The APTT therapeutic range has been determined for the current lot of laboratory APTT reagent in use throughout the [facility]. Performed By: #### E RTRP #### [facility] [address] [place], [place] [address] Basic Panelon 05-29-2018 Urea nitrogen [Mass/Vol] 17 mg/dL Normal 7-18 [facility] Comment on above: Performed By: #### E RTRP #### [facility] [address] [place], [place] [address] Creatinine [Mass/Vol] 0.66 mg/dL Normal 0.51-0.95 [facility] Comment on above: Performed By: #### E RTRP #### [facility] [address] [place], [place] [address] Anion gap [Moles/Vol] 11 mmol/L Normal 8-16 [facility] Comment on above: Performed By: #### E RTRP #### [facility] [address] [place], [place] [address] CO2 [Moles/Vol] 26 mmol/L Normal 21-32 [facility] Comment on above: Performed By: #### E RTRP #### [facility] [address] [place], [place] [address] Glucose [Mass/Vol] 191 mg/dL High 70-99 [facility] Comment on above: Performed By: #### E RTRP #### [facility] [address] [place], [place] [address] Calcium [Mass/Vol] 8.9 mg/dL Normal 8.5-10.1 [facility] Comment on above: Performed By: #### E RTRP #### [facility] [address] [place], [place] [address] Chloride [Moles/Vol] 106 mmol/L Normal 98-107 [facility] Comment on above: Performed By: #### E RTRP #### [facility] [address] [place], [place] [address] Potassium [Moles/Vol] 3.7 mmol/L Normal 3.5-5.1 [facility] Comment on above: Performed By: #### E RTRP #### [facility] [address] [place], [place] [address] Sodium [Moles/Vol] 139 mmol/L Normal 136-145 [facility] Comment on above: Performed By: #### E RTRP #### [facility] [address] [place], [place] [address] CT ANGIO NECKon 05-29-2018 CT ANGIO NECK Performed at [facility] APPROVED BY: Niels Early MD AORTIC ARCH, CAROTID BIFURCATIONS, AND TANANA OF [place] CTA CT angiographic images were obtained in the region of the aortic arch, carotid bifurcations, [place], and proximal intracranial vasculature following the intravenous injection of Omnipaque. The images were reformatted utilizing both conventional and three-dimensional techniques. The study was performed to further evaluate for vascular disease prior to cardiac surgery. CT Dose-Length Product (DLP): mGy*cm CT Dose Reduction Employed: No dose reduction techniques were required. Contrast Dose: 100 mL Omnipaque 350 Postoperative changes are identified involving the right neck, presumed to be on the basis of a previous endarterectomy. Residual/recurrent stenosis at the level of the right carotid bifurcation and proximal internal carotid artery is estimated to measure approximate 40-50%. In addition, there is noted to be irregularity of the distal cervical portion of the right internal carotid artery with maximal stenosis estimated to measure approximately 30-40%. An associated focus of calcification is identified. Stenosis at the level of the left carotid bifurcation proximal internal carotid arteries estimated to measure approximately 20-30% utilizing NASCET criteria. No significant stenosis is identified involving the origins of the great vessels or vertebral arteries, common carotid arteries, distal left internal carotid artery, vertebral arteries, basilar artery, [place], or proximal intracranial vasculature. The major dural venous sinuses and cerebral veins are patent. IMPRESSION: 1. Residual/recurrent stenosis at the level of the right carotid bifurcation and proximal internal carotid artery estimated to measure approximately 40-50% as described above. 2. Stenosis involving the distal cervical portion of the right internal carotid artery estimated to measure approximately 30-40% as noted. Possible etiologies include atypical atherosclerotic disease, fibromuscular dysplasia, and previous traumatic injury. 3. Stenosis at the level of the left carotid bifurcation proximal internal carotid artery estimated to measure approximately 20-30% as described above. Normal [facility] CT CERVICAL SPINE W/O CONTRA STon 05-29-2018 CT CERVICAL SPINE W/O CONTRAST Performed at [facility] APPROVED BY: Niels Early MD CERVICAL SPINE CT WITHOUT CONTRAST ENHANCEMENT Serial transverse images of the cervical spine were obtained without contrast material. The images were reformatted in the coronal and sagittal planes. The study was performed to evaluate neck pain. Reference: Counting from skull base, no significant anatomic variation. Dose-Length Product (DLP): Reformatted from CT angiogram CT Dose Reduction Employed: Reformatted from CT angiogram Serial images demonstrate no definite evidence of acute fracture or dislocation. The cortical margins of the spinal canal and neural foramina are intact and the alignment is essentially anatomic. Degenerative changes are identified involving intervertebral disc spaces, uncinate joints, and facet joints. There is no definite evidence of focal disc protrusion or of significant degenerative stenosis. IMPRESSION: Degenerative change as described above. Normal [facility] CTA HEAD WO/W IV CONon 05-29 CTA HEAD WO/W IV CON Performed at [facility] APPROVED BY: Niels Early MD AORTIC ARCH, CAROTID BIFURCATIONS, AND TA[place]NA OF [place] CTA CT angiographic images were obtained in the region of the aortic arch, carotid bifurcations, [place], and proximal intracranial vasculature following the intravenous injection of Omnipaque. The images were reformatted utilizing both conventional and three-dimensional techniques. The study was performed to further evaluate for vascular disease prior to cardiac surgery. CT Dose-Length Product (DLP): mGy*cm CT Dose Reduction Employed: No dose reduction techniques were required. Contrast Dose: 100 mL Omnipaque 350 Postoperative changes are identified involving the right neck, presumed to be on the basis of a previous endarterectomy. Residual/recurrent stenosis at the level of the right carotid bifurcation and proximal internal carotid artery is estimated to measure approximate 40-50%. In addition, there is noted to be irregularity of the distal cervical portion of the right internal carotid artery with maximal stenosis estimated to measure approximately 30-40%. An associated focus of calcification is identified. Stenosis at the level of the left carotid bifurcation proximal internal carotid arteries estimated to measure approximately 20-30% utilizing NASCET criteria. No significant stenosis is identified involving the origins of the great vessels or vertebral arteries, common carotid arteries, distal left internal carotid artery, vertebral arteries, basilar artery, [place], or proximal intracranial vasculature. The major dural venous sinuses and cerebral veins are patent. IMPRESSION: 1. Residual/recurrent stenosis at the level of the right carotid bifurcation and proximal internal carotid artery estimated to measure approximately 40-50% as described above. 2. Stenosis involving the distal cervical portion of the right internal carotid artery estimated to measure approximately 30-40% as noted. Possible etiologies include atypical atherosclerotic disease, fibromuscular dysplasia, and previous traumatic injury. 3. Stenosis at the level of the left carotid bifurcation proximal internal carotid artery estimated to measure approximately 20-30% as described above. Normal [facility] Hemogramon 05-29-2018 Erythrocyte distribution width (RBC) [Ratio] 12.8 % Normal 11.7-14.4 [facility] Comment on above: Performed By: #### E RTRP #### [facility] [address] [place] [address] Hematocrit (Bld) [Volume fraction] 36.8 % Normal 34.1-44.9 [facility] Comment on above: Performed By: #### E RTRP #### [facility] [address] [place] [address] Hemoglobin (Bld) [Mass/Vol] 11.8 g/dL Normal 11.2-15. 7 [facility] Comment on above: Performed By: #### E RTRP #### [facility] [address] [place] [address] MCH (RBC) [Entitic mass] 29.1 pg Normal 25.6-32.2 [facility] Comment on above: Performed By: #### E RTRP #### [facility] [address] [place] [address] MCHC (RBC) [Mass/Vol] 32.1 % Normal 31.6-34.8 [facility] Comment on above: Performed By: #### E RTRP #### [facility] [address] [place] [address] MCV (RBC) [Entitic vol] 90.6 fL Normal 79.4-94.8 [facility] Comment on above: Performed By: #### E RTRP #### [facility] [address] [place] [address] Platelet mean volume (Bld) [Entitic vol] 11.8 fL Normal 9.4-12.3 [facility] Comment on above: Performed By: #### E RTRP #### [facility] [address] [place], [place] [address] Platelets (Bld) [#/Vol] 264 thou/cmm Normal 182-369 [facility] Comment on above: Performed By: #### E RTRP #### [facility] [address] [place] [address] RBC (Bld) [#/Vol] 4.06 mil/cmm Normal 3.93-5.22 [facility] Comment on above: Performed By: #### E RTRP #### [facility] [address] [place] [address] RDW SD 43.0 fl Normal 36.4-46.3 [facility] Comment on above: Performed By: #### E RTRP #### [facility] [address] [place] [address] WBC (Bld) [#/Vol] 8.66 thou/cmm Normal 3.98-10.04 [facility] Comment on above: Performed By: #### E RTRP #### [facility] [address] [place] [address] Troponin Ion 05-29-2018 Troponin I.cardiac [Mass/Vol] 2.340 ng/mL Critically high 0.015-0.045 [facility] Comment on above: Performed By: #### E RTRP #### [facility] [address] [place] [address] Urinalysis Routineon 018 Bacteria LM.HPF (Urine sed) [#/Area] NONE Normal None [facility] Comment on above: Performed By: #### P 8 #### [facility] [address] [place] [address] Ep Cells Urine 2.9 /hpf Normal 0.0-5.0 [facility] Comment on above: Performed By: #### P 8 #### [facility] [address] [place] [address] Hyaline Cast 0.0 /lpf Normal 0.0-1.0 [facility] Comment on above: Performed By: #### P 8 #### [facility] [address] [place] [address] RBC LM.HPF (Urine sed) [#/Area] 1.8 /[HPF] Normal 0.0-5.0 [facility] Comment on above: Performed By: #### P 8 #### [facility] [address] [place] [address] WBC LM.HPF (Urine sed) [#/Area] 7.8 /[HPF] High 0.0-5.0 [facility] Comment on above: Performed By: #### P 8 #### [facility] [address] [place] [address] Appearance (U) CLEAR Normal [facility] Comment on above: Performed By: #### P 8 #### [facility] [address] [place] [address] Bilirubin (U) [Mass/Vol] Negative Normal Negative [facility] Comment on above: Performed By: #### P 8 #### [facility] [address] [place] [address] Color (U) YELLOW Normal [facility] Comment on above: Performed By: #### P 8 #### [facility] [address] [place] [address] Glucose Ql (U) Negative Normal Negative [facility] Comment on above: Performed By: #### P 8 #### [facility] [address] [place] [address] Hemoglobin,Urine Negative Normal Negative [facility] Comment on above: Performed By: #### P 8 #### [facility] [address] [place] [address] Ketone Urine Negative Normal Negative [facility] Comment on above: Performed By: #### P 8 #### [facility] [address] [place] [address] Leukocytes Esterase SMALL Abnormal Negative [facility] Comment on above: Performed By: #### P 8 #### [facility] [address] [place] [address] Nitrites Urine Negative Normal Negative [facility] Comment on above: Performed By: #### P 8 #### [facility] [address] [place] [address] pH (U) 6.5 [pH] Normal 5.0-8.0 [facility] Comment on above: Performed By: #### P 8 #### [facility] [address] [place] [address] Protein (U) [Mass/Vol] Negative Normal Negative [facility] Comment on above: Performed By: #### P 8 #### [facility] [address] [place] [address] Specific [place], Ur 1.037 Abnormal 1.005-1.030 [facility] Comment on above: Performed By: #### P 8 #### [facility] [address] [place] [address] Urobilinogen,Ur 0.2 EU/dL Normal 0.0-1.0 [facility] Comment on above: Performed By: #### P 8 #### [place] [address] ABO/Rh Confirmationon 2017 ABO group Nom (Bld) A Normal [facility] Comment on above: Performed By: #### E RTRP #### [place] [address] RH Type Positive Normal [facility] Comment on above: Performed By: #### E RTRP #### [place] [address] Activated PTTon 05-28-2018 aPTT Coag (Bld) [Time] 28.2 s Normal 23.0-32.4 [facility] Comment on above: Result Comment: Note : New Reference Range Unfractionated Heparin Therapeutic Ranges: Standard Heparin Nomogram: 53 to 78 seconds (anti-Xa level of 0.3 to 0.7 U/mL) Low Dose/ACS Nomogram: 49 to 67 seconds (anti-Xa level of 0.2 to 0.5 U/mL) Stroke Treatment Nomogram: 49 to 67 seconds (anti-Xa level of 0.2 to 0.5 U/mL) Note: The APTT therapeutic range has been determined for the current lot of laboratory APTT reagent in use throughout the [facility]. Performed By: #### C BCD1 #### [place] [address] Basic Panelon 05-28-2018 Creatinine [Mass/Vol] 0.72 mg/dL Normal 0.51-0.95 [facility] Comment on above: Performed By: #### P 8 #### [facility] [address] [place], [place] [address] Anion gap [Moles/Vol] 14 mmol/L Normal 8-16 [facility] Comment on above: Performed By: #### P 8 #### [facility] [address] [place], [place] [address] Calcium [Mass/Vol] 8.4 mg/dL Low 8.5-10.1 [facility] Comment on above: Performed By: #### P 8 #### [facility] [address] [place], [place] [address] CO2 [Moles/Vol] 24 mmol/L Normal 21-32 [facility] Comment on above: Performed By: #### P 8 #### [facility] [address] [place], [place] [address] Glucose [Mass/Vol] 344 mg/dL High 70-99 [facility] Comment on above: Performed By: #### P 8 #### [facility] [address] [place], [place] [address] Urea nitrogen [Mass/Vol] 21 mg/dL High 7-18 [facility] Comment on above: Performed By: #### P 8 #### [facility] [address] [place], [place] [address] Chloride [Moles/Vol] 105 mmol/L Normal 98-107 [facility] Comment on above: Performed By: #### P 8 #### [facility] [address] [place], [place] [address] Potassium [Moles/Vol] 4.3 mmol/L Normal 3.5-5.1 [facility] Comment on above: Performed By: #### P 8 #### [facility] [address] [place], [place] [address] Sodium [Moles/Vol] 139 mmol/L Normal 136-145 [facility] Comment on above: Performed By: #### P 8 #### [facility] [address] [place], [place] [address] CHEST 2 VIEWSon 05-28-2018 CHEST 2 VIEWS Performed at [facility] APPROVED BY: PAUL MORA MD EXAMINATION: CHEST RADIOGRAPH (2 VIEW FRONTAL & LATERAL) CLINICAL HISTORY: Chest pain MQ: [id number] Comparison: 11/09/2013 RESULT: Lines, tubes, and devices: None. Lungs and pleura: No consolidation. No lung mass. No pleural effusion. Cardiomediastinal silhouette: Normal cardiomediastinal silhouette. Other: No bony abnormalities. IMPRESSION: No acute radiographic abnormality. Normal [facility] Troponin Ion 05-28-2018 Troponin I.cardiac [Mass/Vol] 0.844 ng/mL High 0.015-0.045 [facility] Comment on above: Performed By: #### E RTRP #### [place] [address] Hemogramon 05-28-2018 Erythrocyte distribution width (RBC) [Ratio] 12.9 % Normal 11.7-14.4 [facility] Comment on above: Performed By: #### C BCD1 #### [place] [address] Hematocrit (Bld) [Volume fraction] 37.4 % Normal 34.1-44.9 [facility] Comment on above: Performed By: #### C BCD1 #### [place] [address] Hemoglobin (Bld) [Mass/Vol] 11.7 g/dL Normal 11.2-15. 7 [facility] Comment on above: Performed By: #### C BCD1 #### [place] [address] MCH (RBC) [Entitic mass] 28.5 pg Normal 25.6-32.2 [facility] Comment on above: Performed By: #### C BCD1 #### [place] [address] MCHC (RBC) [Mass/Vol] 31.3 % Low 31.6-34.8 [facility] Comment on above: Performed By: #### C BCD1 #### [place] [address] MCV (RBC) [Entitic vol] 91.2 fL Normal 79.4-94.8 [facility] Comment on above: Performed By: #### C BCD1 #### [facility] [address] [place] [address] Platelet mean volume (Bld) [Entitic vol] 11.8 fL Normal 9.4-12.3 [facility] Comment on above: Performed By: #### C BCD1 #### [facility] [address] [place] [address] Platelets (Bld) [#/Vol] 247 thou/cmm Normal 182-369 [facility] Comment on above: Performed By: #### C BCD1 #### [facility] [address] [place] [address] RBC (Bld) [#/Vol] 4.10 mil/cmm Normal 3.93-5.22 [facility] Comment on above: Performed By: #### C BCD1 #### [facility] [address] [place] [address] RDW SD 43.3 fl Normal 36.4-46.3 [facility] Comment on above: Performed By: #### C BCD1 #### [facility] [address] [place] [address] WBC (Bld) [#/Vol] 8.52 thou/cmm Normal 3.98-10.04 [facility] Comment on above: Performed By: #### C BCD1 #### [facility] [address] [place] [address] Hemogram/Diffon 05-28-2018 Abs Immature Grans 0.02 thou/cmm Normal 0.00-0.05 [facility] Comment on above: Performed By: #### C BCD1 #### [facility] [address] [place] [address] Abs. Baso 0.05 thou/cmm Normal 0.01-0.08 [facility] Comment on above: Performed By: #### C BCD1 #### [facility] [address] [place] [address] Abs. [place] 0.57 thou/cmm Normal 0.27-0.70 [facility] Comment on above: Performed By: #### C BCD1 #### [facility] [address] [place] [address] Abs. Neut (ANC) 6.31 thou/cmm High 1.56-6.13 [facility] Comment on above: Performed By: #### C BCD1 #### [facility] [address] [place] [address] Basophils/100 WBC (Bld) 0.6 % Normal [facility] Comment on above: Performed By: #### C BCD1 #### [facility] [address] [place] [address] Eosinophils (Bld) [#/Vol] 0.14 thou/cmm Normal 0.00-0. 31 [facility] Comment on above: Performed By: #### C BCD1 #### [facility] [address] [place] [address] Eosinophils/100 WBC (Bld) 1.5 % Normal [facility] Comment on above: Performed By: #### C BCD1 #### [facility] [address] [place] [address] Erythrocyte distribution width (RBC) [Ratio] 13.0 % Normal 11.7-14.4 [facility] Comment on above: Performed By: #### C BCD1 #### [facility] [address] [place] [address] Hematocrit (Bld) [Volume fraction] 39.4 % Normal 34.1-44.9 [facility] Comment on above: Performed By: #### C BCD1 #### [facility] [address] [place] [address] Hemoglobin (Bld) [Mass/Vol] 12.4 g/dL Normal 11.2-15. 7 [facility] Comment on above: Performed By: #### C BCD1 #### [facility] [address] [place] [id number] Immature Grans 0.20 % Normal [facility] Comment on above: Performed By: #### C BCD1 #### [facility] [address] [place], [place] [address] Lymphocytes (Bld) [#/Vol] 1.98 thou/cmm Normal 1.18-3. 74 [facility] Comment on above: Performed By: #### C BCD1 #### [facility] [address] [place], [place] [address] Lymphocytes/100 WBC (Bld) 21.8 % Normal [facility] Comment on above: Performed By: #### C BCD1 #### [facility] [address] [place], [place] [address] MCH (RBC) [Entitic mass] 28.8 pg Normal 25.6-32.2 [facility] Comment on above: Performed By: #### C BCD1 #### [facility] [address] [place], [place] [address] MCHC (RBC) [Mass/Vol] 31.5 % Low 31.6-34.8 [facility] Comment on above: Performed By: #### C BCD1 #### [facility] [address] [place], [place] [address] MCV (RBC) [Entitic vol] 91.6 fL Normal 79.4-94.8 [facility] Comment on above: Performed By: #### C BCD1 #### [facility] [address] [place], [place] [address] Monocytes/100 WBC (Bld) 6.3 % Normal [facility] Comment on above: Performed By: #### C BCD1 #### [facility] [address] [place], [place] [address] Platelet mean volume (Bld) [Entitic vol] 11.8 fL Normal 9.4-12.3 [facility] Comment on above: Performed By: #### C BCD1 #### [facility] [address] [place], [place] [address] Platelets (Bld) [#/Vol] 256 thou/cmm Normal 182-369 [facility] Comment on above: Performed By: #### C BCD1 #### [facility] [address] [place], [place] [address] RBC (Bld) [#/Vol] 4.30 mil/cmm Normal 3.93-5.22 [facility] Comment on above: Performed By: #### C BCD1 #### [facility] [address] [place], [place] [address] RDW SD 43.4 fl Normal 36.4-46.3 [facility] Comment on above: Performed By: #### C BCD1 #### [facility] [address] [place], [place] [address] Seg Neutrophil 69.6 % Normal [facility] Comment on above: Performed By: #### C BCD1 #### [facility] [address] [place], [place] [address] WBC (Bld) [#/Vol] 9.07 thou/cmm Normal 3.98-10.04 [facility] Comment on above: Performed By: #### C BCD1 #### [facility] [address] [place] [address] Hepatic Panelon 05-28-2018 ALP [Catalytic activity/Vol] 74 U/L Normal 46-116 [facility] Comment on above: Performed By: #### H EPAP #### [facility] [address] [place], [place] [address] Protein [Mass/Vol] 6.9 g/dL Normal 6.4-8.2 [facility] Comment on above: Performed By: #### H EPAP #### [facility] [address] [place], [place] [address] Bilirubin [Mass/Vol] 0.2 mg/dL Normal 0.2-1.0 [facility] Comment on above: Performed By: #### H EPAP #### [facility] [address] [place] [address] ALT [Catalytic activity/Vol] 25 U/L Normal 12-78 [facility] Comment on above: Performed By: #### H EPAP #### [facility] [address] [place], [place] [address] AST [Catalytic activity/Vol] 18 U/L Normal 9-37 [facility] Comment on above: Performed By: #### H EPAP #### [facility] [address] [place] [address] Bilirubin [Mass/Vol] 0.08 mg/dL Normal 0.00-0.20 [facility] Comment on above: Performed By: #### H EPAP #### [facility] [address] [place], [place] [address] Albumin [Mass/Vol] 3.3 g/dL Low 3.4-5.0 [facility] Comment on above: Performed By: #### H EPAP #### [place] [address] Hgb A1con 05-28-2018 HbA1c (Bld) [Mass fraction] 192 mg/dl Normal [facility] Comment on above: Performed By: #### C BCD1 #### [place] [address] HbA1c (Bld) [Mass fraction] 8.3 % High 4.2-6.3 [facility] Comment on above: Result Comment: Meth od is National Glycohemoglobin Standardization Program (NGSP) compliant. Performed By: #### C BCD1 #### [place] [address] Lipase Bloodon 05-28-2018 Lipase Blood 148 U/L Normal 73-393 [facility] Comment on above: Performed By: #### L IP #### [place] [address] Lipid Profileon 05-28-2018 Cholesterol in LDL [Mass/Vol] 141 mg/dL Normal [facility] Comment on above: Result Comment: No C AD and with fewer than 2 CAD risk factors <160 mg/dL No CAD but with 2 or more CAD risk factors <130 mg/dL Definite CAD or other atherosclerotic disease <100 mg/dL Performed By: #### C BCD1 #### [address] [address] Cholesterol in LDL/Cholesterol in HDL [Mass ratio] 4.4 High 0.6-3.6 [facility] Comment on above: Result Comment: LDL, VLDL,LDL/HDL, Invalid if Triglyceride >400 Performed By: #### C BCD1 #### [place] [address] Cholesterol in VLDL [Mass/Vol] 32 mg/dL Normal <50 Desired [facility] Comment on above: Performed By: #### C BCD1 #### [facility] [address] [place] [address] Triglyceride [Mass/Vol] 161 mg/dL High 0-149 [facility] Comment on above: Result Comment: < 20 0 Desirable Result invalid if not a fasting specimen. Performed By: #### C BCD1 #### [facility] [address] [place] [address] Cholesterol in HDL [Mass/Vol] 32 mg/dL Normal >40 [facility] Comment on above: Performed By: #### C BCD1 #### [facility] [address] [place] [address] Cholesterol.total/Cholester ol in HDL [Mass ratio] 6.4 {ratio} High 1.8-5.3 [facility] Comment on above: Performed By: #### C BCD1 #### [facility] [address] [place] [address] Cholesterol [Mass/Vol] 205 mg/dL High 0-199 [facility] Comment on above: Result Comment: <200 Desirable 200-240 Borderline >240 High Performed By: #### C BCD1 #### [facility] [address] [place] [address] MRSA Screenon 05-28-2018 MRSA DNA DARLIN+probe Ql (Unsp spec) Test performed at [facility] No MRSA detected. Normal [facility] Comment on above: Performed By: #### P 8 #### [place] [address] Magnesium Bloodon 05-28-2018 Magnesium [Mass/Vol] 2.2 mg/dL Normal 1.6-2.6 [facility] Comment on above: Performed By: #### C BCD1 #### [facility] [address] [place] [address] Protimeon 05-28-2018 INR Coag (PPP) [Relative time] 1.02 {INR} Normal 0.90-1.30 [facility] Comment on above: Result Comment: Note : Reference Range Change Vitamin K Antagonist (VKA) Therapeutic Range: INR 2 to 3 (Target INR of 2.5) Note: For patients treated with VKA drugs, such as warfarin, the [employer] 2012 Guideline recommends a therapeutic INR range of 2 to 3 (target INR of 2.5). This recommendation includes high-risk patients with antiphospholipid syndrome with previous arterial or venous thromboembolism, current-generation mechanical or bioprosthetic aortic heart valve replacement. VKA Therapeutic Range for some Mechanical Valve Replacement: INR 2.5 to 3.5 (Target INR of 3) Note: Patients with mechanical aortic valve replacement and additional risk factors for thromboembolic events (atrial fibrillation, previous thromboembolism, LV dysfunction, hypercoagulable conditions) or an older generation mechanical AVR (i.e., ball in-Cage) or any mechanical MVR should have a INR therapeutic range of 2.5 to 3.5 target INR of 3). Vidhya GH, et al. Chest 2012; 141:7S-47S Deng BOURNE et al. [facility] 2017; 70: 252-289 Performed By: #### C BCD1 #### [place] [address] PT Coag (PPP) [Time] 10.6 s Normal 9.7-13.0 [facility] Comment on above: Performed By: #### C BCD1 #### [place] [address] RBC Productson 05-28-2018 Xmatch Unit 1 see below Normal [facility] Comment on above: Result Comment: Comp atible Performed By: #### E RTRP #### [place] [address] Xmatch Unit 2 see below Normal [facility] Comment on above: Result Comment: Comp atible Performed By: #### E RTRP #### [place] [address] Troponin Ion 05-28-2018 Troponin I.cardiac [Mass/Vol] 4.210 ng/mL Critically high 0.015-0.045 [facility] Comment on above: Performed By: #### C BCD1 #### [place] [address] Troponin I.cardiac [Mass/Vol] 4.900 ng/mL Critically high 0.015-0.045 [facility] Comment on above: Performed By: #### C BCD1 #### [place] [address] Troponin I.cardiac [Mass/Vol] 3.790 ng/mL Critically high 0.015-0.045 [facility] Comment on above: Performed By: #### C BCD1 #### [place] [address] Troponin I.cardiac [Mass/Vol] 3.830 ng/mL Critically high 0.015-0.045 [facility] Comment on above: Performed By: #### T ROP #### [place] [address] Type and Screenon 05-28-2018 ABO group Nom (Bld) A Normal [facility] Comment on above: Performed By: #### C BCD1 #### [place] [address] Comment See Below Normal [facility] Comment on above: Result Comment: Scre en &/or Xmatch expires in 3 days at 12 midnight. Redraw patient at that time. Performed By: #### C BCD1 #### [place] [address] RH Type Positive Normal [facility] Comment on above: Performed By: #### C BCD1 #### [place] [address] Urinalysis Routineon 018 RBC LM.HPF (Urine sed) [#/Area] 0.0-3 Normal 0.0-5.0 [facility] Comment on above: Performed By: #### U RIN2 #### [place] [address] Yeast Urine NONE Normal None [facility] Comment on above: Performed By: #### U RIN2 #### [place] [address] Bacteria LM.HPF (Urine sed) [#/Area] NONE Normal None [facility] Comment on above: Performed By: #### U RIN2 #### [facility] [address] [place] [address] Ep Cells Urine 9.6 /hpf High 0.0-5.0 [facility] Comment on above: Performed By: #### U RIN2 #### [facility] [address] [place] [address] Hyaline Cast 1.5 /lpf High 0.0-1.0 [facility] Comment on above: Performed By: #### U RIN2 #### [facility] [address] [place] [address] WBC LM.HPF (Urine sed) [#/Area] 9.3 /[HPF] High 0.0-5.0 [facility] Comment on above: Performed By: #### U RIN2 #### [facility] [address] [place] [address] Appearance (U) CLOUDY Normal [facility] Comment on above: Performed By: #### U RIN2 #### [facility] [address] [place] [address] Bilirubin (U) [Mass/Vol] Negative Normal Negative [facility] Comment on above: Performed By: #### U RIN2 #### [facility] [address] [place] [address] Color (U) YELLOW Normal [facility] Comment on above: Performed By: #### U RIN2 #### [place] [address] Glucose Ql (U) >=1000 Abnormal Negative [facility] Comment on above: Performed By: #### U RIN2 #### [place] [address] Hemoglobin,Urine Negative Normal Negative [facility] Comment on above: Performed By: #### U RIN2 #### [place] [address] Ketone Urine Negative Normal Negative [facility] Comment on above: Performed By: #### U RIN2 #### [place] [address] Leukocytes Esterase Negative Normal Negative [facility] Comment on above: Performed By: #### U RIN2 #### [facility] [address] [place], [place] [address] Nitrites Urine Negative Normal Negative [facility] Comment on above: Performed By: #### U RIN2 #### [facility] [address] [place], [place] [address] pH (U) 6.5 [pH] Normal 5.0-8.0 [facility] Comment on above: Performed By: #### U RIN2 #### [facility] [address] [place] [address] Protein (U) [Mass/Vol] Negative Normal Negative [facility] Comment on above: Performed By: #### U RIN2 #### [facility] [address] [place] [address] Specific [place], Ur 1.037 Abnormal 1.005-1.030 [facility] Comment on above: Performed By: #### U RIN2 #### [facility] [address] [place] [address] Urobilinogen,Ur 0.2 EU/dL Normal 0.0-1.0 [facility] Comment on above: Performed By: #### U RIN2 #### [facility] [address] [place] [address] Vital Signs Date Time Vital Sign Value Performing Clinician Facility 12-31-2024 20:36-0400 Body temperature 98 [degF] Ximena Sylvester [employer] Work Phone: [facility] 12-31-2024 20:36-0400 Diastolic blood pressure 63 mm[Hg] Ximena Sylvester [employer] Work Phone: [facility] 12-31-2024 20:36-0400 Heart rate 63 /min Ximena Sylvester [employer]C Work Phone: [facility] 12-31-2024 20:36-0400 Respiratory rate 18 /min Ximena Sylvester [employer]ATOR [employer] Work Phone: [facility] 12-31-2024 20:36-0400 SaO2% (BldA) [Mass fraction] 99 % Ximena Sylvester [employer] Work Phone: [facility] 12-31-2024 20:36-0400 Systolic blood pressure 170 mm[Hg] Ximena Omero [employer] Work Phone: [facility] 12-31-2024 16:03-0400 Body mass index (BMI) [Ratio] 35.9 kg/m2 Ximena Omero [employer] Work Phone: [facility] 12-31-2024 16:03-0400 Body weight 80.6 kg Ximena Omero [employer] Work Phone: [facility] 12-31-2024 15:51-0400 Body height 149.86 cm Ximena Omero [employer] Work Phone: [facility] 12-10-2024 13:57-0400 Body height 149.86 cm Ximena Omero [employer]ATOR [employer]ER[employer]C Work Phone: [facility] 12-10-2024 13:57-0400 Body mass index (BMI) [Ratio] 34.3 kg/m2 Ximena Omero [employer] Work Phone: [facility] 12-10-2024 13:57-0400 Body weight 77.11 kg Ximena Omero [employer] Work Phone: [facility] 12-10-2024 13:57-0400 Diastolic blood pressure 76 mm[Hg] Ximena Omero [employer]ATOR [employer] Work Phone: [facility] 12-10-2024 13:57-0400 Heart rate 88 /min Ximena Omero [employer]ATOR [employer]ER[employer]C Work Phone: [facility] 12-10-2024 13:57-0400 Respiratory rate 16 /min Ximena Omero [employer]ATOR [employer]ER[employer]C Work Phone: [facility] 12-10-2024 13:57-0400 Systolic blood pressure 123 mm[Hg] Ximena Omero [employer]ATOR [employer]ER[employer]C Work Phone: [facility] 09-02-2024 13:42-0400 Body height 149.86 cm Ximena Omero [employer]ATOR [employer]SEM[employer]ER[employer] Work Phone: [facility] 09-02-2024 13:42-0400 Body mass index (BMI) [Ratio] 36 kg/m2 Ximena Sylvester [employer]ATOR [employer]ER[employer] Work Phone: [facility] 09-02-2024 13:42-0400 Body weight 80.85 kg Ximena Sylvester [employer]ATOR [employer]SEM[employer]ER[employer] Work Phone: [facility] 09-02-2024 13:42-0400 Diastolic blood pressure 67 mm[Hg] Ximena Sylvester [employer]ATOR [employer]SEM[employer]ER[employer]C Work Phone: [facility] 09-02-2024 13:42-0400 Heart rate 66 /min Ximena Sylvester [employer]ATOR [employer]SEM[employer]ER[employer]C Work Phone: [facility] 09-02-2024 13:42-0400 SaO2% (BldA) [Mass fraction] 94 % Ximena Sylvester [employer]ATOR [employer]SEM[employer]ER[employer]C Work Phone: [facility] 09-02-2024 13:42-0400 Systolic blood pressure 130 mm[Hg] Ximena Sylvester [employer]ATOR [employer]ER[employer] Work Phone: [facility] 08-09-2024 13:51-0500 Diastolic blood pressure 72 mm[Hg] Dr. Williams Starr DO Work Phone: [facility] 08-09-2024 13:51-0500 Heart rate 74 /min Dr. Williams Starr DO Work Phone: [facility] 08-09-2024 13:51-0500 Respiratory rate 18 /min Dr. Williams Starr DO Work Phone: [facility] 08-09-2024 13:51-0500 SaO2% (BldA) [Mass fraction] 98 % Dr. Williams Starr DO Work Phone: [facility] 08-09-2024 13:51-0500 Systolic blood pressure 154 mm[Hg] Dr. Williams Starr DO Work Phone: [facility] 07-02-2024 15:40-0500 Body mass index (BMI) [Ratio] 37.11 kg/m2 Mae Raya MD Work Phone: [facility] 07-02-2024 15:40-0500 Body weight 81.28 kg Mae Raya MD Work Phone: [facility] 07-02-2024 15:40-0500 Diastolic blood pressure 80 mm[Hg] Mae Raya MD Work Phone: [facility] 07-02-2024 15:40-0500 Systolic blood pressure 120 mm[Hg] Mae Raya MD Work Phone: [facility] 05-14-2024 15:18-0500 Body height 149.[address] Williams Starr DO Work Phone: [facility] 05-14-2024 15:18-0500 Body mass index (BMI) [Ratio] 35.3 kg/m2 Dr. Williams Starr DO Work Phone: [facility] 05-14-2024 15:18-0500 Body weight 79.[address] Williams Starr DO Work Phone: [facility] 04-23-2024 14:45-0500 Body mass index (BMI) [Ratio] 33.3 kg/m2 Dr. Williams Starr DO Work Phone: [facility] 04-23-2024 14:45-0500 Body weight 74.[address] Williams Starr DO Work Phone: [facility] 04-23-2024 14:45-0500 Diastolic blood pressure 74 mm[Hg] Dr. Williams Starr DO Work Phone: [facility] 04-23-2024 14:45-0500 Heart rate 67 /min Dr. Williams Starr DO Work Phone: [facility] 04-23-2024 14:45-0500 Respiratory rate 20 /min Dr. Williams Starr DO Work Phone: [facility] 04-23-2024 14:45-0500 SaO2% (BldA) [Mass fraction] 94 % Dr. Williams Starr DO Work Phone: [facility] 04-23-2024 14:45-0500 Systolic blood pressure 120 mm[Hg] Dr. Williams Starr DO Work Phone: [facility] 09-26-2023 14:54-0400 Body mass index (BMI) [Ratio] 35.87 kg/m2 Agustina Hirsch MD Work Phone: [facility] 09-26-2023 14:54-0400 Body weight 78.56 kg Agustina Hirsch MD Work Phone: [facility] 09-26-2023 14:54-0400 Diastolic blood pressure 64 mm[Hg] Agustina Hirsch MD Work Phone: [facility] 09-26-2023 14:54-0400 Systolic blood pressure 102 mm[Hg] Agustina Hirsch MD Work Phone: [facility] 04-12-2023 13:06-0500 Body height 149.[address] Taras Green Work Phone: [facility] 04-12-2023 13:06-0500 Body mass index (BMI) [Ratio] 34.9 kg/m2 Dr. Taras Green Work Phone: [facility] 04-12-2023 13:06-0500 Body weight 78.[address] Taras Green Work Phone: [facility] 04-12-2023 13:06-0500 Diastolic blood pressure 75 mm[Hg] Dr. Taras Green Work Phone: [facility] 04-12-2023 13:06-0500 Heart rate 65 /min Dr. Taras Green Work Phone: [facility] 04-12-2023 13:06-0500 Respiratory rate 20 /min Dr. Taras Green Work Phone: [facility] 04-12-2023 13:06-0500 SaO2% (BldA) [Mass fraction] 97 % Dr. Taras Green Work Phone: [facility] 04-12-2023 13:06-0500 Systolic blood pressure 144 mm[Hg] Dr. Taras Green Work Phone: [facility] 03-14-2023 09:50-0400 Body weight 77.56 kg Kanika Merrill AUTOMOTIVE ELECTRICIAN.[employer] MA[employer]GER Work Phone: [facility] 03-14-2023 09:50-0400 Diastolic blood pressure 64 mm[Hg] Kanika Merrill AUTOMOTIVE ELECTRICIAN.[employer]OKERAGE MANAGER Work Phone: [facility] 03-14-2023 09:50-0400 Heart rate 62 /min Kanika Merrill AUTOMOTIVE ELECTRICIAN.[employer]OKERAGE MANAGER Work Phone: [facility] 03-14-2023 09:50-0400 Respiratory rate 17 /min Kanika Merrill AUTOMOTIVE ELECTRICIAN.[employer]OKERAGE MANAGER Work Phone: [facility] 03-14-2023 09:50-0400 SaO2% (BldA) [Mass fraction] 95 % Kanika Merrill AUTOMOTIVE ELECTRICIAN.[employer]OKERAGE MANAGER Work Phone: [facility] 03-14-2023 09:50-0400 Systolic blood pressure 112 mm[Hg] Kanika Merrill AUTOMOTIVE ELECTRICIAN.[employer]OKERAGE MANAGER Work Phone: [facility] 02-21-2023 14:44-0400 Body weight 75.3 kg Gladys Baird MD Work Phone: [facility] 02-21-2023 14:44-0400 Diastolic blood pressure 80 mm[Hg] Gladys Baird MD Work Phone: [facility] 02-21-2023 14:44-0400 Heart rate 72 /min Gladys Baird MD Work Phone: [facility] 02-21-2023 14:44-0400 Respiratory rate 12 /min Gladys Baird MD Work Phone: [facility] 02-21-2023 14:44-0400 SaO2% (BldA) [Mass fraction] 98 % Gladys Baird MD Work Phone: [facility] 02-21-2023 14:44-0400 Systolic blood pressure 150 mm[Hg] Gladys Baird MD Work Phone: [facility] 02-21-2023 14:36-0400 Body height 148 cm Pulm Wstr Work Phone: [facility] 02-21-2023 14:36-0400 Body weight 75.3 kg Pulm Wstr Work Phone: [facility] 02-21-2023 14:36-0400 Heart rate 72 /min Pulm Wstr Work Phone: [facility] 02-21-2023 14:36-0400 Respiratory rate 12 /min Pulm Wstr Work Phone: [facility] 02-21-2023 14:36-0400 SaO2% (BldA) [Mass fraction] 98 % Pulm Wstr Work Phone: [facility] 12-27-2022 13:06-0400 Body height 149.[address] Taras Green Work Phone: [facility] 12-27-2022 13:06-0400 Body temperature 98.3 [degF] Dr. Taras Green Work Phone: [facility] 12-27-2022 13:06-0400 Diastolic blood pressure 70 mm[Hg] Dr. Taras Green Work Phone: [facility] 12-27-2022 13:06-0400 Heart rate 80 /min Dr. Taras Green Work Phone: [facility] 12-27-2022 13:06-0400 Respiratory rate 16 /min Dr. Taras Green Work Phone: [facility] 12-27-2022 13:06-0400 SaO2% (BldA) [Mass fraction] 96 % Dr. Taras Green Work Phone: [facility] 12-27-2022 13:06-0400 Systolic blood pressure 146 mm[Hg] Dr. Taras Green Work Phone: [facility] 10-11-2022 13:16-0400 Body height 149.[address] Taras Green Work Phone: [facility] 10-11-2022 13:16-0400 Body mass index (BMI) [Ratio] 33.5 kg/m2 Dr. Taras Green Work Phone: [facility] 10-11-2022 13:16-0400 Body weight 75.[address] Taras Green Work Phone: [phone] [place] [address] 10-11-2022 13:16-0400 Diastolic blood pressure 68 mm[Hg] Dr. Taras Green Work Phone: 1(317)[phone] [place] [address] 10-11-2022 13:16-0400 Heart rate 53 /min Dr. Taras Green Work Phone: [facility] 10-11-2022 13:16-0400 Respiratory rate 18 /min Dr. Taras Green Work Phone: [facility] 10-11-2022 13:16-0400 SaO2% (BldA) [Mass fraction] 97 % Dr. Taras Green Work Phone: [facility] [facility] 10-11-2022 13:16-0400 Systolic blood pressure 113 mm[Hg] Dr. Taras Green Work Phone: [facility] 07-15-2022 17:44-0500 Body temperature 97.4 [degF] Dr. Taras Green Work Phone: [facility] 07-15-2022 17:44-0500 Diastolic blood pressure 70 mm[Hg] Dr. Taras Green Work Phone: [facility] 07-15-2022 17:44-0500 Heart rate 63 /min Dr. Taras Green Work Phone: [facility] 02-10-2023 17:44-0500 Respiratory rate 17 /min Dr. Taras Green Work Phone: [facility] 07-15-2022 17:44-0500 SaO2% (BldA) [Mass fraction] 96 % Dr. Taras Green Work Phone: [facility] 07-15-2022 17:44-0500 Systolic blood pressure 106 mm[Hg] Dr. Taras Green Work Phone: 0(855)050-137592 [place] [address] 07-12-2022 13:05-0500 Body temperature 97.2 [degF] Dr. Taras Green Work Phone: 4(126)982-264592 [place] [address] 07-12-2022 13:05-0500 Diastolic blood pressure 58 mm[Hg] Dr. Taras Green Work Phone: 6(668)743-762992 [place] [address] 07-12-2022 13:05-0500 Heart rate 61 /min Dr. Taras Green Work Phone: 5(252)996-277592 [place] [address] 07-12-2022 13:05-0500 Respiratory rate 16 /min Dr. Taras Green Work Phone: [facility] 07-12-2022 13:05-0500 SaO2% (BldA) [Mass fraction] 98 % Dr. Taras Green Work Phone: [facility] 07-12-2022 13:05-0500 Systolic blood pressure 98 mm[Hg] Dr. Taras Green Work Phone: 7(194)014-889092 [place] [address] 07-12-2022 11:34-0500 Body height 149.[address] Taras Grene Work Phone: [facility] 07-12-2022 11:34-0500 Body mass index (BMI) [Ratio] 33.1 kg/m2 Dr. Taras Green Work Phone: 6(141)603-927692 [place] [address] 07-12-2022 11:34-0500 Body weight 74.[address] Taras Green Work Phone: 0(654)814-142756 [place] [address] 04-21-2022 14:53-0500 Body height 149.[address] Taras Green Work Phone: [facility] Work Phone: 04-21-2022 14:53-0500 Body mass index (BMI) [Ratio] 33.7 kg/m2 Dr. Taras Green Work Phone: [facility] 04-21-2022 14:53-0500 Body weight 75.[address] Taras Green Work Phone: [facility] 04-21-2022 14:53-0500 Diastolic blood pressure 81 mm[Hg] Dr. Taras Green Work Phone: [facility] 04-21-2022 14:53-0500 Heart rate 93 /min Dr. Taras Green Work Phone: [facility] 04-21-2022 14:53-0500 Respiratory rate 18 /min Dr. Taras Green Work Phone: [facility] 04-21-2022 14:53-0500 SaO2% (BldA) [Mass fraction] 98 % Dr. Taras Green Work Phone: [facility] 04-21-2022 14:53-0500 Systolic blood pressure 137 mm[Hg] Dr. Taras Green Work Phone: [facility] 11-06-2021 10:10-0400 Body height 149.[address] Trinity Baird Work Phone: [facility] Work Phone: 11-06-2021 10:10-0400 Body mass index (BMI) [Ratio] 33.3 kg/m2 Dr. Trinity Baird Work Phone: [facility] Work Phone: 11-06-2021 10:10-0400 Body temperature 98.1 [degF] Dr. Trinity Baird Work Phone: [facility] Work Phone: 11-06-2021 10:10-0400 Body weight 74.[address] Trinity Baird Work Phone: [facility] Work Phone: 11-06-2021 10:10-0400 Diastolic blood pressure 72 mm[Hg] Dr. Trinity Baird Work Phone: [facility] Work Phone: 11-06-2021 10:10-0400 Heart rate 72 /min Dr. Trinity Baird Work Phone: [facility] Work Phone: 11-06-2021 10:10-0400 Respiratory rate 15 /min Dr. Trinity Baird Work Phone: [facility] Work Phone: 11-06-2021 10:10-0400 SaO2% (BldA) [Mass fraction] 96 % Dr. Trinity Baird Work Phone: [facility] Work Phone: 11-06-2021 10:10-0400 Systolic blood pressure 136 mm[Hg] Dr. Trinity Baird Work Phone: [facility] Work Phone: 10-18-2021 15:18-0400 Body mass index (BMI) [Ratio] 33.1 kg/m2 Dr. Taras Green Work Phone: [facility] Work Phone: 10-18-2021 15:18-0400 Body temperature 98.2 [degF] Dr. Taras Green Work Phone: [facility] Work Phone: 10-18-2021 15:18-0400 Body weight 74.[address] Taras Green Work Phone: [facility] Work Phone: 10-18-2021 15:18-0400 Diastolic blood pressure 64 mm[Hg] Dr. Taras Green Work Phone: [facility] Work Phone: 10-18-2021 15:18-0400 Heart rate 60 /min Dr. Taras Green Work Phone: [facility] Work Phone: 10-18-2021 15:18-0400 Respiratory rate 16 /min Dr. Taras Green Work Phone: [facility] Work Phone: 10-18-2021 15:18-0400 SaO2% (BldA) [Mass fraction] 97 % Dr. Taras Green Work Phone: [facility] Work Phone: 10-18-2021 15:18-0400 Systolic blood pressure 122 mm[Hg] Dr. Taras Green Work Phone: [facility] Work Phone: 10-18-2021 15:18-0400 Body height 149.[address] Trinity Baird Work Phone: [facility] Work Phone: 10-18-2021 15:18-0400 Body mass index (BMI) [Ratio] 33.1 kg/m2 Dr. Trinity Baird Work Phone: [facility] Work Phone: 10-18-2021 15:18-0400 Body temperature 98.2 [degF] Dr. Trinity Baird Work Phone: [facility] Work Phone: 10-18-2021 15:18-0400 Body weight 74.[address] Trinity Baird Work Phone: [facility] Work Phone: 10-18-2021 15:18-0400 Diastolic blood pressure 64 mm[Hg] Dr. Trinity Baird Work Phone: [facility] Work Phone: 10-18-2021 15:18-0400 Heart rate 60 /min Dr. Trinity Baird Work Phone: [facility] Work Phone: 10-18-2021 15:18-0400 Respiratory rate 16 /min Dr. Trinity Baird Work Phone: [facility] Work Phone: 10-18-2021 15:18-0400 SaO2% (BldA) [Mass fraction] 97 % Dr. Trinity Baird Work Phone: [facility] Work Phone: 10-18-2021 15:18-0400 Systolic blood pressure 122 mm[Hg] Dr. Trinity Baird Work Phone: [facility] Work Phone: 09-08-2021 15:35-0400 Body mass index (BMI) [Ratio] 33.3 kg/m2 Dr. Taras Green Work Phone: [facility] Work Phone: 09-08-2021 15:35-0400 Body weight 74.[address] Taras Green Work Phone: [facility] Work Phone: 09-08-2021 15:35-0400 Diastolic blood pressure 72 mm[Hg] Dr. Taras Green Work Phone: [facility] Work Phone: 09-08-2021 15:35-0400 Heart rate 72 /min Dr. Taras Green Work Phone: [facility] Work Phone: 09-08-2021 15:35-0400 Respiratory rate 18 /min Dr. Taras Green Work Phone: [facility] Work Phone: 09-08-2021 15:35-0400 SaO2% (BldA) [Mass fraction] 97 % Dr. Taras Green Work Phone: [facility] Work Phone: 09-08-2021 15:35-0400 Systolic blood pressure 119 mm[Hg] Dr. Taras Green Work Phone: [facility] Work Phone: 09-08-2021 15:35-0400 Body mass index (BMI) [Ratio] 33.3 kg/m2 Dr. Trinity Baird Work Phone: [facility] Work Phone: 09-08-2021 15:35-0400 Body weight 74.[address] Trinity Baird Work Phone: [facility] Work Phone: 09-08-2021 15:35-0400 Diastolic blood pressure 72 mm[Hg] Dr. Trinity Baird Work Phone: [facility] Work Phone: 09-08-2021 15:35-0400 Heart rate 72 /min Dr. Trinity Baird Work Phone: [facility] Work Phone: 09-08-2021 15:35-0400 Respiratory rate 18 /min Dr. Triniyt Baird Work Phone: [facility] Work Phone: 09-08-2021 15:35-0400 SaO2% (BldA) [Mass fraction] 97 % Dr. Trinity Baird Work Phone: [facility] Work Phone: 09-08-2021 15:35-0400 Systolic blood pressure 119 mm[Hg] Dr. Trinity Baird Work Phone: [facility] Work Phone: 07-15-2021 17:35-0500 Diastolic blood pressure 106 mm[Hg] Dr. Trinity Baird Work Phone: [facility] Work Phone: 07-15-2021 17:35-0500 Heart rate 100 /min Dr. Trinity Baird Work Phone: [facility] Work Phone: 07-15-2021 17:35-0500 Respiratory rate 16 /min Dr. Trinity Baird Work Phone: [facility] Work Phone: 07-15-2021 17:35-0500 Systolic blood pressure 203 mm[Hg] Dr. Trinity Baird Work Phone: [facility] Work Phone: 07-15-2021 14:33-0500 Body mass index (BMI) [Ratio] 33.3 kg/m2 Dr. Trinity Baird Work Phone: [facility] Work Phone: 07-15-2021 14:33-0500 Body temperature 97.6 [degF] Dr. Trinity Baird Work Phone: [facility] Work Phone: 07-15-2021 14:33-0500 Body weight [address] Trinity Baird Work Phone: [facility] Work Phone: 07-15-2021 14:33-0500 SaO2% (BldA) [Mass fraction] 98 % Dr. Trinity Baird Work Phone: [facility] Work Phone: 07-15-2021 14:08-0500 Diastolic blood pressure 97 mm[Hg] Dr. Trinity Baird Work Phone: [facility] Work Phone: 07-15-2021 14:08-0500 Systolic blood pressure 171 mm[Hg] Dr. Trinity Baird Work Phone: [facility] Work Phone: 07-15-2021 08:07-0500 Body weight 74.[address] Trinity Baird Work Phone: [facility] Work Phone: 07-15-2021 08:07-0500 Heart rate 93 /min Dr. Trinity Baird Work Phone: [facility] Work Phone: 07-15-2021 08:07-0500 Respiratory rate 18 /min Dr. Trinity Baird Work Phone: [facility] Work Phone: 07-15-2021 08:07-0500 SaO2% (BldA) [Mass fraction] 97 % Dr. Trinity Baird Work Phone: [facility] Work Phone: 07-02-2020 14:37-0500 Body mass index (BMI) [Ratio] 33.9 kg/m2 Dr. Trinity Baird Work Phone: [facility] Work Phone: 04-26-2019 12:43-0500 BP Diastolic 74 mm[Hg] [place] 04-26-2019 12:43-0500 BP Systolic 126 mm[Hg] [place] 04-26-2019 12:43-0500 Pulse (Heart Rate) 74 /min [place], [place] 04-26-2019 12:43-0500 Pulse Oximetry 99 % [place] 04-26-2019 12:43-0500 Respiratory Rate 16 /min [facility], [place] 04-26-2019 10:59-0500 Body Temperature 98.2 [degF] [facility] 04-04-2019 17:21-0400 BMI (Body Mass Index) 30.3 kg/m2 [facility], [place] 04-04-2019 17:21-0400 Body Temperature 98.01 [degF] [facility], [place] 04-04-2019 17:21-0400 Body weight 68.04 kg [facility] , [place] 04-04-2019 17:21-0400 BP Diastolic 86 mm[Hg] Leonides Fontaine [facility] , [place] 04-04-2019 17:21-0400 BP Systolic 168 mm[Hg] Leonides Fontaine [facility] , [place] 04-04-2019 17:21-0400 Height 149.9 cm Leonides Fontaine [facility] , [place] 04-04-2019 17:21-0400 Pulse (Heart Rate) 81 /min Leonides Fontaine [facility], [place] 04-04-2019 17:21-0400 Pulse Oximetry 98 % Leonides Fontaine [facility] , [place] 04-04-2019 17:21-0400 Respiratory Rate 18 /min Leonides Fontaine [facility], [place] 08-14-2018 20:32-0400 Body temperature 37.0 [facility] Comment on above: Performed By: #### TROP #### [place] [id number] 06-01-2018 12:04-0500 Body temperature 37.0 [facility] Comment on above: Performed By: #### LIP #### [place] [address] 05-31-2018 07:16-0500 Body temperature 37.0 [facility] Comment on above: Performed By: #### GFR #### [place] [address] 05-31-2018 02:14-0500 Body temperature 37.0 [facility] Comment on above: Performed By: #### GFR #### [place] [address] 05-30-2018 17:36-0500 Body temperature 36.0 [facility] Comment on above: Performed By: #### P8 #### [place] [address] Encounters Encounter Date Encounter Type Care Provider Facility Start: 12-31-2024 End: 12-31-2024 Emergency department patient visit Ximena Sylvester [employer] Work Phone: -Emergency Department Work Phone: Start: 12-31-2024 ambulatory Ximena Sylvester Facility:[facility] Start: 12-31-2024 Patient encounter procedure Ximena Sylvester [employer] -Outpatient Breast Imaging Work Phone: Start: 12-10-2024 End: 12-10-[address] Abdelrahman Saldana MD -[facility] Work Phone: Start: 12-10-2024 End: 12-10-2024 ambulatory Ximena Sylvester [employer] Work Phone: -[facility] Start: 12-03-2024 Non-patient / Non-visit Dr. Geri Mckeon MD -[facility] Work Phone: Start: 10-03-2024 End: 10-03-2024 Patient encounter procedure Sally CARDENAS -[facility] Work Phone: Start: 10-03-2024 End: 10-03-2024 ambulatory Whippany Omero Facility:[facility] Start: 09-03-2024 End: 09-03-2024 ambulatory Ximena Sylvester [employer] Work Phone: [facility] Work Phone: Start: 09-03-2024 End: 09-03-2024 Patient encounter procedure Tere Mckenzie [employer] -Laboratory, [facility] Start: 09-02-2024 End: 09-02-2024 Patient encounter procedure Tere Mckenzie [employer] -[facility] Work Phone: Start: 09-02-2024 End: 09-03-[address] [facility] Facility:[facility] Start: 08-09-2024 Non-patient / Non-visit Philip Drummond DO -[facility] Start: 08-09-2024 End: 08-09-2024 Admission to same day surgery center Philip Drummond DO -Endoscopy Work Phone: Start: 08-09-2024 End: 08-09-[address] Williams Starr DO Work Phone: [facility] Work Phone: Start: 08-09-2024 End: 08-09-[address] [facility] Facility:[facility] Start: 07-16-2024 End: 07-22-2024 Refill Gladys Baird MD Work Phone: Pulmonary Medicine Comment on above: Refill Request Start: 07-11-2024 End: 07-12-2024 Refill Gladys Baird MD Work Phone: Pulmonary Medicine Comment on above: Refill Request Start: 07-04-2024 End: 07-04-2024 Telephone encounter Mae Raya MD Work Phone: OB/Gynecology Comment on above: Results Start: 07-02-2024 End: 07-02-2024 ambulatory MAE RAYA Facility:[facility] Start: 07-02-2024 End: 07-02-2024 Office outpatient visit 15 minutes Mae Raya MD Work Phone: OB/Gynecology Comment on above: Vaginal itching (Margie micaela Dx); Cystocele, midline Start: 06-13-2024 End: 06-13-2024 Patient encounter procedure Philip Drummond DO -[facility] Work Phone: Start: 06-13-2024 End: 06-13-[address] [facility] Facility:[facility] Start: 06-11-2024 End: 06-11-2024 Patient encounter procedure Ximena Sylvester [employer] -Outpatient Bone Densitometry Work Phone: Start: 06-11-2024 End: 06-11-[address] [facility] Facility:[facility] Start: 05-27-2024 End: 05-27-2024 Patient encounter procedure Tere Mckenzie [employer] -Laboratory Work Phone: Start: 05-27-2024 End: 05-27-[address] [facility] Facility:[facility] Start: 05-14-2024 End: 05-14-[address] Brendon Orozco MD -[facility] Work Phone: Start: 05-14-2024 End: 05-14-[address] [facility] Facility:[facility] Start: 04-23-2024 End: 04-23-2024 Patient encounter procedure Marely CARDENAS -[facility] Work Phone: Start: 04-23-2024 End: 04-23-2024 ambulatory [facility] Facility:[facility] Start: 04-18-2024 End: 04-18-[address] [facility] Facility:[facility] Start: 03-19-2024 End: 03-19-[address] [facility] Facility:[facility] Start: 03-06-2024 End: 03-06-[address] [facility] Facility:[facility] Start: 03-05-2024 End: 03-05-[address] [facility] Facility:[facility] Start: 01-05-2024 End: 01-05-[address] [facility] Facility:[facility] Start: 09-26-2023 End: 09-26-2023 Patient encounter procedure Agustina Hirsch MD Work Phone: OB/Gynecology Comment on above: Vulvar dermatitis (P rimary Dx); Cystocele, midline Start: 09-26-2023 End: 09-26-2023 ambulatory TARAS GREEN Facility:[facility] Start: 08-09-2023 End: 08-09-[address] Taras Green Work Phone: [facility] Work Phone: Start: 08-09-2023 End: 08-09-[address] Taras Green Work Phone: [facility]-Laboratory, Specimen Work Phone: Start: 08-04-2023 End: 08-04-2023 Non-patient / Non-visit Dr. Taras Green Work Phone: [facility] Work Phone: Start: 08-04-2023 End: 08-04-[address] Taras Green Work Phone: [facility] Work Phone: Start: 08-04-2023 End: 08-04-[address] [facility] Start: 07-10-2023 Refill Gladys Baird MD Work Phone: Pulmonary Medicine Comment on above: Refill Request Start: 07-03-2023 Non-patient / Non-visit Dr. Taras Green Work Phone: [facility] Start: 07-03-2023 End: 07-03-[address] Taras Green Work Phone: [facility] Work Phone: Start: 07-03-2023 End: 07-03-[address] [facility] Start: 05-24-2023 Non-patient / Non-visit Dr. Taras Green Work Phone: [facility] Start: 05-24-2023 Non-patient / Non-visit Dr. Taras Green Work Phone: [facility] Start: 05-24-2023 End: 05-24-[address] Taras Green Work Phone: [facility] Work Phone: Start: 05-24-2023 End: 05-24-[address] Tar[facility] Start: 05-22-2023 Non-patient / Non-visit Dr. Taras Green Work Phone: [facility] Start: 05-22-2023 End: 05-22-[address] [facility] Start: 04-17-2023 Telephone encounter May Alcazar os [employer]OTIVE ELECTRICIAN[employer] Work Phone: Pulmonary Medicine Start: 04-14-2023 Telephone encounter May Alcazar os AUTOMOTIVE ELECTRICIAN.[employer]ER[employer] MANAGER Work Phone: Pulmonary Medicine Start: 04-13-2023 End: 04-13-2023 Subsequent hospital visit by physician [facility] (I-Stat) Work Phone: Cat Scan Comment on above: Former cigarette smo ker [Z87.891] Start: 04-12-2023 End: 04-12-[address] Taras Green Work Phone: [facility] Work Phone: Start: 03-30-2023 End: 03-30-[address] Taras Green Work Phone: [facility] Gastro[facility] Work Phone: Start: 03-21-2023 End: 03-21-[address] Taras Green Work Phone: [facility] Work Phone: Start: 03-21-2023 End: 03-21-[address] Taras Green Work Phone: [facility]-Ultrasound, [facility] Work Phone: Start: 03-16-2023 End: 03-16-[address] Taras Green Work Phone: [facility] Work Phone: Start: 03-16-2023 End: 03-16-[address] Taras Green Work Phone: [facility]-Cat Scan, [facility] Work Phone: Start: 03-14-2023 End: 03-14-2023 Patient encounter procedure Kanika Del Cid [employer]OMOTIVE ELECTRICIAN.[employer] MANAGER Work Phone: Pulmonary Medicine Comment on above: Encounter for screen ing for lung cancer (Primary Dx); Former cigarette smoker Start: 03-09-2023 End: 03-09-2023 Patient encounter procedure Jonathon Carpio MD Work Phone: Orthopaedics Comment on above: Bilateral carpal savana ricardo syndrome (Primary Dx) Start: 03-09-2023 End: 03-09-2023 Subsequent hospital visit by physician [facility] Work Phone: Radiology Comment on above: Bilateral hand pain [M79.641, M79.642] Start: 02-21-2023 End: 02-21-2023 ambulatory Pulm Lab [facility] Work Phone: [facility]ULM [facility] Comment on above: Spirometry Start: 02-21-2023 End: 02-21-2023 Patient encounter procedure Pulm [facility] Work Phone: [facility] Comment on above: COPD, mild (HCC) (Pr imary Dx); Former cigarette smoker Start: 02-01-2023 Telephone encounter Jonathon baer MD Work Phone: Orthopaedics Comment on above: Chart prep Start: 01-05-2023 End: 01-05-[address] Taras Green Work Phone: [facility] Work Phone: Start: 01-05-2023 End: 01-05-[address] Taras Green Work Phone: [facility]-Laboratory, Phy Office 3rd Flr Start: 01-04-2023 End: 01-04-2023 Non-patient / Non-visit Dr. Taras Green Work Phone: [facility] Work Phone: Start: 01-04-2023 End: 01-04-[address] Taras Green Work Phone: [facility] Work Phone: Start: 01-04-2023 End: 01-04-[address] Taras Green Work Phone: [facility]-Pulmonary Services/Neurology Work Phone: Start: 12-27-2022 End: 12-27-[address] Taras Green Work Phone: [facility] Work Phone: Start: 12-27-2022 End: 12-27-[address] Taras Green Work Phone: [facility]-Radiology, [facility] Work Phone: Start: 12-27-2022 End: 12-27-[address] Taras Green Work Phone: [facility] Work Phone: Start: 12-20-2022 End: 12-20-[address] Taras Green Work Phone: [facility] Work Phone: Start: 12-20-2022 End: 12-20-[address] Taras Green Work Phone: [facility]-Laboratory, [facility] [address] [place] [address] Start: 11-29-2022 End: 11-29-[address] Taras Green Work Phone: [facility]-Outpatient Breast Imaging Work Phone: Start: 11-15-2022 End: 11-15-[address] Taras Green Work Phone: [facility] Work Phone: Start: 11-15-2022 End: 11-15-[address] [facility] Start: 11-09-2022 End: 11-09-[address] Taras Green Work Phone: [facility]-Nuclear Medicine, [facility] Start: 11-08-2022 End: 11-08-[address] Taras Green [facility] Start: 10-13-2022 End: 10-13-[address] Taras Green Work Phone: [facility] Start: 10-11-2022 End: 10-11-[address] Taras Green Work Phone: [facility] Start: 10-04-2022 End: 10-04-[address] Taras Green Work Phone: [facility] Work Phone: Start: 10-04-2022 End: 10-04-[address] Taras Green Work Phone: [facility]-Pulmonary Services/Neurology Start: 08-04-2022 End: 08-04-[address] Taras Green Work Phone: [facility] Work Phone: Start: 08-04-2022 End: 08-04-[address] [facility] Start: 07-16-2022 End: 07-16-[address] Taras Green Work Phone: [facility] Work Phone: Start: 07-16-2022 End: 07-16-[address] [facility] Start: 07-15-2022 End: 07-15-[address] Taras Green Work Phone: [facility] Start: 07-12-2022 Non-patient / Non-visit Dr. Taras Green Work Phone: [facility] Start: 07-12-2022 End: 07-12-2022 Admission to same day surgery center Dr. Taras Green Work Phone: [facility]-Endoscopy Start: 07-12-2022 End: 07-12-[address] Taras Green Work Phone: [facility] Work Phone: Start: 04-21-2022 End: 04-21-[address] Taras Green Work Phone: [facility] Work Phone: Start: 04-21-2022 End: 04-21-[address] Taras Green Work Phone: [facility] Start: 04-11-2022 Non-patient / Non-visit Dr. Taras Green Work Phone: [facility] Start: 04-11-2022 End: 04-11-[address] Taras Green Work Phone: [facility] Work Phone: Start: 04-11-2022 End: 04-11-[address] Taras Green Work Phone: [facility]-Pulmonary Services/Neurology Start: 03-17-2022 End: 03-17-[address] Taras Green Work Phone: [facility] Work Phone: Start: 03-17-2022 End: 03-17-[address] Taras Green Work Phone: [facility]-Laboratory, Phy Office 3rd Flr Start: 01-07-2022 End: 01-07-[address] Taras Green Work Phone: [facility] Start: 12-23-2021 End: 12-23-[address] Taras Green Work Phone: [facility]-Occupational Therapy Start: 12-10-2021 End: 12-10-[address] Taras Green Work Phone: [facility] Start: 12-09-2021 End: 12-09-[address] Taras Green Work Phone: [facility] Start: 11-11-2021 End: 11-11-[address] [facility] Start: 11-06-2021 End: 11-06-2021 Emergency department patient visit Dr. Trinity Baird Work Phone: [facility]-Emergency Department Start: 10-28-[address] Trinity [facility]aird [facility] Start: 10-25-2021 End: 10-25-[address] Trinity Baird Work Phone: [facility] Office 3rd Flr Start: 10-21-[address] Trinity [facility]aird [facility] Start: 10-18-2021 End: 10-18-[address] Trinity Baird Work Phone: [facility] Start: 10-18-2021 End: 10-18-[address] Trinity Baird Work Phone: [facility] Start: 10-15-2021 Refill No Pcp [facility] Comment on above: Refill Request Start: 09-22-2021 End: 09-22-[address] Trinity Baird Work Phone: [facility] Start: 09-10-2021 End: 09-10-[address] Trinity Baird Work Phone: [facility] Start: 09-08-2021 End: 09-08-[address] Trinity Baird Work Phone: [facility] Start: 08-27-[address] Trinity Baird Work Phone: [facility] Start: 08-27-2021 End: 08-27-[address] Trinity Baird Work Phone: [facility] Start: 08-23-2021 End: 08-23-[address] Trinity Baird Work Phone: [facility]-Radiology, [facility] Start: 08-19-2021 End: 08-19-[address] Trinity Baird Work Phone: [facility]-Outpatient Breast Imaging Start: 08-10-2021 Non-patient / Non-visit Dr. Trinity Baird Work Phone: [facility] Start: 08-10-2021 End: 08-10-[address] Trinity Baird Work Phone: [facility]-Cardiovascular Services Start: 08-10-2021 Non-patient / Non-visit Dr. Trinity Baird Work Phone: [facility] Start: 07-22-2021 End: 07-22-[address] Trinity Baird Work Phone: [facility]-Laboratory, Phy Office 3rd Flr Start: 07-15-2021 End: 07-15-2021 Emergency department patient visit Dr. Trinity Baird Work Phone: [facility]-Emergency Department Start: 07-15-2021 End: 07-15-[address] Trinity Baird Work Phone: [facility] Start: 05-01-2019 End: 05-01-2019 Subsequent hospital visit by physician Susan Teague Work Phone: [facility] Comment on above: Chronic fatigue; Diabetes mellitus type 2 in obese (HCC); Chronic bilateral low back pain without sciatica Start: 04-26-2019 End: 04-26-2019 Emergency department patient visit Dc Newman Work Phone: [facility] ED Comment on above: Dyspnea, unspecified type (Primary Dx) Start: 04-04-2019 End: 04-04-2019 Emergency department patient visit Leonides Tyler Work Phone: [facility] Comment on above: Acute frontal sinusi tis, recurrence not specified (Primary Dx) Start: 02-08-2019 End: 02-08-2019 ambulatory UNKNOWN PROVIDER [facility] Procedures Date Procedure Procedure Detail Performing Clinician Start: 12-31-2024 Plain x-ray of hand Evi Sylvester [employer] Work Phone: Start: 12-31-2024 X-ray of chest, PA a nd lateral views Ximena Sylvester [employer] Work Phone: Start: 12-31-2024 Estimated creatinine clearance Ximena Sylvester [employer] Work Phone: Start: 09-03-2024 Urine microalbumin/creatinine ratio measurement Ximena Sylvester [employer] Work Phone: Comment on above: Previous reported re sult: 108.9 mg/g CREEdited by: ROGELIO on 11/21/24:0825 AMENDED REPORT 11/21/24 0825 MALB:CREAT previously reported as: 108.9 mg/g CRE Start: 06-11-2024 Dual energy X-ray absorptiometry Dr. Williams Starr DO Work Phone: Start: 05-14-2024 X-ray of lumbosacral spine Dr. Williams Starr DO Work Phone: Start: 05-24-2023 Cardiovascular stres s test using pharmacologic stress agent Dr. Taras Green Work Phone: Start: 03-21-[address] Taras Green Work Phone: Start: 03-16-[address] Taras petit Work Phone: Start: 03-09-2023 Radex hand minimum 3 views Jonathon Carpio MD Work Phone: Start: 02-21-2023 Brncdilat rspse spmt ry pre&post-brncdilat admn Gladys Baird MD Work Phone: Start: 01-05-[address] Taras mckenzie Work Phone: Start: 12-27-2022 Pelvis X-ray Dr. Taras petit Work Phone: Start: 12-27-2022 X-ray of lumbosacral spine Dr. Taras Green Work Phone: Start: 12-20-[address] Taras mckenzie Work Phone: Start: 11-29-[address] Taras Green Work Phone: Start: 11-29-[address] e detection Dr. Taras Green Work Phone: Start: 11-29-[address] Taras Green Work Phone: Start: 11-29-2022 Bilateral mammography D rVictoriano Green Work Phone: Start: 11-09-2022 Radionuclide gastric emptying study Dr. Taras Green Work Phone: Start: 11-08-[address] Taras mckenzie Work Phone: Start: 10-04-2022 Influenza Types A,B Direct FA (HOLLY) Dr. Taras Green Work Phone: Start: 10-04-2022 Respiratory syncytia l virus antigen assay Dr. Taras Green Work Phone: Start: 08-04-2022 Diagnostic radiograp hy of abdomen, decubitus and erect Dr. Taras Green Work Phone: Start: 07-12-[address] Taras petit Work Phone: Start: 01-07-2022 Diagnostic radiograp hy of finger Dr. Taras Green Work Phone: Start: 12-10-2021 Diagnostic radiograp hy of finger Dr. Taras Green Work Phone: Start: 11-06-2021 Computed tomography of abdomen and pelvis with contrast Dr. Trinity Baird Work Phone: Start: 11-06-2021 Diagnostic radiograp hy of abdomen Dr. Trinity Baird Work Phone: Start: 10-18-2021 Diagnostic radiograp hy of finger Dr. Trinity Baird Work Phone: Start: 09-22-2021 Diagnostic radiograp hy of finger Dr. Trinity Baird Work Phone: Start: 09-10-2021 Diagnostic radiograp hy of finger Dr. Trinity Baird Work Phone: Start: 08-23-2021 Diagnostic radiograp hy of finger Dr. Trintiy Baird Work Phone: Start: 08-19-2021 X-ray of lumbar spin e, two or three views Dr. Trinity Baird Work Phone: Start: 08-19-2021 Screening mammography D thiago Baird Work Phone: Start: 08-10-2021 Cardiovascular stres s test using pharmacologic stress agent Dr. Trinity Baird Work Phone: Start: 07-15-2021 CT of head without contrast Dr. Trinity Baird Work Phone: Start: 05-01-2019 25 hydroxy includes fractions if performed Susan Teague Work Phone: Start: 05-01-2019 Assay of thyroid stimulating hormone tsh Susan Teague Work Phone: Start: 05-01-2019 Blood count complete auto&auto difrntl wbc Susan Teague Work Phone: Start: 05-01-2019 Comprehensive metabo lic panel Susan Teague Work Phone: Start: 05-01-2019 Cyanocobalamin vitam in b-12 Susan Teague Work Phone: Start: 04-26-2019 Radiologic exam ches t 2 views Dc Rushing ONOFFMIX (?) Work Phone: Start: 04-26-2019 Assay of troponin quantitative Dc J ONOFFMIX (?) Work Phone: Start: 04-26-2019 Basic metabolic pane l calcium total Dc [employer] Work Phone: Start: 04-26-2019 Blood count complete auto&auto difrntl wbc Dc Rushing ONOFFMIX (?) Work Phone: Start: 06-10-2018 End: 08-02-2018 History of coronary artery bypass grafting S/P CABG (coronary artery bypass graft) Agustina Hirsch MD Work Phone: Start: 05-30-2018 History of coronary artery bypass grafting H/O coronary artery bypass surgery Marely CARDENAS Comment on above: CABG x 3 THORNE-LAD, S VG-OM1, SVG-Distal RCA 05/30/2018 Start: 05-28-2018 Antibody screen Comment on above: Performed By: #### C BCD1 #### [place] [id number] Start: 09-25-2012 Colonoscopy No Pcp Start: 07-31-2011 Mammography No Pcp Urine culture Dr. Taras Green Work Phone: Urine culture Dr. Taras Green Work Phone: Plan of Treatment Date Care Activity Detail Author Start: 12-31-2024 [facility] Start: 12-31-2024 [facility] Start: 12-31-2024 MG Breast - bilateral Screening [facility] Start: 12-31-2024 Screening mammography SCRN MAMM (CAD)W/DAVE BILAT [facility] Start: 09-25-2024 BP Controlled (<130/80) BP Controlled (<130/80) [facility] Start: 08-09-2024 Esophageal motility study w/interp&rpt ESOPHAGUS MOTILITY STUDY [facility] Start: 2024 RSV Vaccine (1 - 1-dose 75+ series) RSV Vaccine (1 - 1-dose 75+ series) [facility] Start: 06-05-2024 Advance Directive Discussion Advance Directive Discussion [facility] Start: 04-13-2024 Influenza vaccination Lung Cancer Screening [facility] Start: 04-13-2024 Screening for malignant neoplasm of lung Lung Cancer Screening [facility] Start: 03-14-2024 BP Controlled (<130/80) BP Controlled (<130/80) [facility] Start: 02-04-2024 Covid-19 Vaccine () Covid-19 Vaccine () [facility] Start: 02-04-2024 Influenza vaccination [facility] Start: 10-25-2023 End: 10-25-2023 Patient encounter procedure 10/25/2023 3:00 PM EDT Office Visit Pulmonary Medicine [address] [place], [place] [id number] Mae Solorio [facility] [address] [place], [place] [id number] COPD follow up Pulmonary Medicine Comment on above: COPD follow up Start: 06-05-2023 Advance Directive Discussion Advance Directive Discussion [facility] Start: 06-05-2023 Behavioral Health Screening Behavioral Health Screening [facility] Start: 06-05-2023 Depression Assessment Depression Assessment [facility] Start: 02-03-2023 Covid-19 Vaccine () Covid-19 Vaccine () [facility] Start: 02-03-2023 Influenza vaccination [facility] Start: 01-27-2023 Covid-19 Vaccine (6 - Additional dose for [place] series) Covid-19 Vaccine (6 - Additional dose for [place] series) [facility] Start: 11-15-2022 Immunoglobulin measurement [facility] Start: 11-15-2022 Serum immunofixation [facility] Start: 11-15-2022 [facility] Start: 09-25-2022 Colonoscopy COLONOSCOPY [facility] Start: 09-25-2022 COLORECTAL CANCER SCREENING COLORECTAL CANCER SCREENING [facility] Start: 09-25-2022 Screening for malignant neoplasm of colon [facility] Start: 07-12-2022 Colonoscopy w/biopsy single/multiple COLONOSCOPY AND BIOPSY [facility] Start: 07-12-2022 Colsc flx w/rmvl of tumor polyp lesion snare tq COLONOSCOPY W/LESION REMOVAL [facility] Start: 07-12-2022 Egd insert guide wire dilator passage esophagus EGD GUIDE WIRE INSERTION [facility] Start: 07-12-2022 Egd transoral biopsy single/multiple EGD BIOPSY SINGLE/MULTIPLE [facility] Start: 07-12-2022 Patient discharge [facility] Start: 06-29-2022 Hepatitis B surface antibody level LDL CHOLESTEROL [facility] Start: 06-05-2022 ADVANCE DIRECTIVE DISCUSSION ADVANCE DIRECTIVE DISCUSSION [facility] Start: 06-05-2022 DEPRESSION ASSESSMENT DEPRESSION ASSESSMENT [facility] Start: 03-10-2022 ANNUAL PCP TEAM CHRONIC DISEASE VISIT ANNUAL PCP TEAM CHRONIC DISEASE VISIT [facility] Start: 02-03-2022 Influenza vaccination INFLUENZA (Season Ended) [facility] Start: 10-21-2021 Hepatitis B screening URINE ALBUMIN:CREATININE RATIO [facility] Start: 09-27-2021 Hemoglobin A1c measurement HbA1C [facility] Start: 09-27-2021 Hemoglobin A1c/Hemoglobin.total in Blood HBA1C [facility] Start: 07-15-2021 Emergency department visit limited/minor prob EMERGENCY DEPT VISIT [facility] Work Phone: Start: 06-05-2021 ADVANCE DIRECTIVE DISCUSSION ADVANCE DIRECTIVE DISCUSSION [facility] Start: 04-14-2021 COVID-19 VACCINE (2 - Booster for [place] series) COVID-19 VACCINE (2 - Booster for [place] series) [facility] Start: 03-16-2021 Glaucoma screening Dilated Retinal Exam [facility] Start: 03-16-2021 Hepatitis C antibody, confirmatory test DILATED RETINAL EXAM [facility] Start: 11-23-2020 Breast cancer screen Breast cancer screen [place], [place] Start: 04-26-2020 Creatinine monitoring Creatinine monitoring [place], [place] Start: 04-26-2020 Potassium monitoring Potassium monitoring [place] Start: 01-26-2020 Influenza vaccination LUNG CANCER SCREENING [facility] Start: 11-24-2019 Screening for malignant neoplasm of breast Mammogram Screening [facility] Start: 10-16-2019 Creatinine monitoring Creatinine monitoring [place], [place] Start: 10-16-2019 Lipid screen Lipid screen [place], [place] Start: 10-16-2019 Potassium monitoring Potassium monitoring [place] Start: 10-02-2019 [object Object] Diabetic foot exam [place], [place] Start: 05-01-2019 End: 05-01-2019 Office Visit 05/01/2019 Office Visit Family Medicine Susan Teague, DO [address] [place] [address] [phone] [facility] Start: 04-16-2019 End: 04-16-2019 Office Visit 04/16/2019 Office Visit Family Medicine Susan Teague, DO [address], [place] [id number] [facility] Start: 03-30-2019 A1C test (Diabetic or Prediabetic) A1C test (Diabetic or Prediabetic) [place] Start: 03-30-2019 Diabetic microalbuminuria test Diabetic microalbuminuria test [place] Start: 02-03-2019 Influenza vaccination Flu vaccine (#1) [place] Start: 11-21-2018 Annual Wellness Visit (AWV) Annual Wellness Visit (AWV) [place] Start: 04-21-2017 Diabetic retinal exam Diabetic retinal exam [place], [place] Start: 07-31-2012 Mammography [facility] Start: 07-31-2012 Screening for malignant neoplasm of breast Mammogram Screening [facility] Start: 2009 Hepatitis B Vaccine (1 of 3 - Risk 3-dose series) Hepatitis B Vaccine (1 of 3 - Risk 3-dose series) [facility] Start: 2009 RSV Vaccine (1 - 1-dose 60+ series) RSV Vaccine (1 - 1-dose 60+ series) [facility] Start: 1999 Colon cancer screen colonoscopy Colon cancer screen colonoscopy [place], [place] Start: 1999 Shingles Vaccine (1 of 2) Shingles Vaccine (1 of 2) [place], [place] Start: 1999 SHINGRIX VACCINE (1 of 2) SHINGRIX VACCINE (1 of 2) [facility] Start: 1994 COLOGUARD (FIT-DNA) COLOGUARD (FIT-DNA) [facility] Start: [address] COLONOGRAPHY [facility] Start: 1994 FECAL OCCULT BLOOD FECAL OCCULT BLOOD [facility] Start: 1994 Screening for malignant neoplasm of colon [facility] Start: 1994 SIGMOIDOSCOPY SIGMOIDOSCOPY [facility] Start: 1979 Zoledronic acid therapy Alpha-1 Antitrypsin Deficiency Screening [facility] Start: 1968 DTaP/Tdap/Td vaccine (1 - Tdap) DTaP/Tdap/Td vaccine (1 - Tdap) [place], [place] Start: 1968 Urine microalbumin profile [facility] Start: 1967 Anxiety Screening Anxiety Screening [facility] Start: 1967 BP CONTROLLED (<130/80) BP CONTROLLED (<130/80) [facility] Start: 1967 Depression Screening Depression Screening [facility] Start: 1967 HEPATITIS C SCREENING HEPATITIS C SCREENING [facility] Start: 1967 Hepatitis C screening Hepatitis C Screening [facility] Start: 1961 Adult depression screening assessment DEPRESSION SCREENING [facility] Start: 1960 DTaP/Tdap/Td vaccine (1 - Tdap) DTaP/Tdap/Td vaccine (1 - Tdap) [place], [place] Start: 1959 3 comp foot exam completed DIABETIC FOOT EXAM [facility] Start: 1959 Diabetic foot examination Diabetic Foot Exam [facility] Start: 1949 Hepatitis C screen Hepatitis C screen [place], [place] Albumin [Moles/volum e] in Serum or Plasma [facility] Albumin/Globulin ratio [facility] BACTERIAL VAGINOSIS NAAT BACTERI AL VAGINOSIS NAAT Lab Routine Vaginal itching 07/02/2024 4:10 PM EST Work Phone: BAYRON/TRICHOMONAS NAAT BAYRON /TRICHOMONAS NAAT Lab Routine Vaginal itching 07/02/2024 4:10 PM EST [facility] Clostridioides diffi cile DNA [Presence] in Unspecified specimen by DARLIN with probe detection [facility] End: 04-12-2024 CT LUNG SCREEN WO IVCON CT LUNG SCREEN WO IVCON Radiology Routine Former cigarette smoker 1 Occurrences starting 03/14/2023 until 04/12/2024 Work Phone: Comment on above: 1 Occurrences starting 03/14/2023 until 04/12/2024 CT LUNG SCREEN WO IVCON CT LUNG SCREEN WO IVCON Radiology Routine Former cigarette smoker 04/13/2023 2:08 PM EST Work Phone: End: 05-16-2024 CT LUNG SCREEN WO IVCON CT LUNG SCREEN WO IVCON Radiology Routine Former smoker 1 Occurrences starting 04/17/2023 until 05/16/2024 Work Phone: Comment on above: 1 Occurrences starting 04/17/2023 until 05/16/2024 CT Pelvis W contrast IV [facility] EKG 12 Lead - Chest Pain EKG 12 Lead - Chest Pain ECG STAT 04/26/2019 10:51 AM EST [facility] [place] Elastase, pancreatic (el-1), fecal; quantitative [facility] Electrophoresis: [id number] [facility] Electrophoresis: doreen ma globulin [facility] End: 03-09-2024 EMG(NEURO/NI) EMG(NEURO/NI) EMG Routine Bilateral carpal tunnel syndrome 1 Occurrences starting 03/09/2023 until 03/09/2024 Work Phone: Comment on above: 1 Occurrences starting 03/09/2023 until 03/09/2024 Fat [Presence] in Stool [facility] Globulin measurement [facility] IgA [Mass/volume] in Serum or Plasma [facility] IgE [Units/volume] i n Serum or Plasma [facility] IgG [Mass/volume] in Serum or Plasma [facility] IgM [Mass/volume] in Serum or Plasma [facility] Lactoferrin [Presenc e] in Stool by Immunoassay [facility] Neutrophil cytoplasm ic Ab.classic [Units/volume] in Serum [facility] P-ANCA measurement [facility] Patient Education [facility] Work Phone: Patient referral [facility] Work Phone: Protein electrophore sis panel - Serum or Plasma [facility] Protein measurement [facility] Radionuclide gastric emptying study [facility] Serum protein electrophoresis [facility] Troponin T.cardiac [Mass/volume] in Serum or Plasma by High sensitivity method [facility] End: 05-01-2019 XR LUMBAR SPINE (MIN 4 VIEWS) XR LUMBAR SPINE (MIN 4 VIEWS) Imaging Routine Once for 1 Occurrences starting 05/01/2019 until 05/01/2019 [facility] Comment on above: Once for 1 Occurrences starting 05/01/20 19 until 05/01/2019 XR LUMBAR SPINE (MIN 4 VIEWS) XR LUMBAR SPINE (MIN 4 VIEWS) Imaging Routine 05/01/2019 4:50 PM EST [employer] [place] End: 05-01-2019 XR Lumbosacral Spine 4 VW XR Lumbosacral Spine 4 VW Imaging Routine Chronic bilateral low back pain without sciatica 1 Occurrences starting 05/01/2019 until [facility]: 1 Occurrences starting 05/01/2019 until 05/01/2019 [facility] Immunizations Immunization Date Immunization Notes Care Provider Bess clark 02-17-2021 COVID-19 vaccine ([place]) No Pcp [facility] 03-30-2020 influenza virus vacc ine, unspecified formulation 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 2024 Medicaid [id number] 2024 Self-pay [id number] 2023 Medicare [id number] 2023 Medicare [id number] 2023 Unknown [id number] 2023 Medicare [id number]. [id number] 2021 Unknown [id number] [id number]. [id number] 2021 Medicaid [facility] MEDICA[facility] [id number] 2021-Present [phone] [address] [place] [address] Medicaid [id number] 2021 Medicare [id number] 2018 Medicare HUMANA MEDICARE HUMANA GOLD PLUS HMO xxxxxxxxx 2018-Present [address] [address] [place] [address] xxxxxxxxx [id number] 2013 Medicare [id number] Medicare [id number] Unknown [id number] Unknown [id number] Unknown [id number] Unknown [id number] 2.16.840.1.622041.3.579.2. 462 Unknown [id number] 2.16.840.1.382984.3.579.2. 462 Unknown [id number] 2.16.840.1.066456.3.579.2. 462 Unknown [id number] 2.16.840.1.933641.3.579.2. 462 Unknown [id number] 2.16.840.1.990160.3.579.2. 462 Unknown [id number] 2.16.840.1.980193.3.579.2. 462 Unknown [id number] 2.16.840.1.379598.3.579.2. 462 Unknown [id number] 2.16.840.1.554972.3.579.2. 462 Unknown [id number] 2.16.840.1.664826.3.579.2. 462 Unknown [id number] 2.16.840.1.264060.3.579.2. 462 Unknown [id number] 2.16.840.1.056604.3.579.2. 462 Unknown [id number] 2.16.840.1.868882.3.579.2. 462 Unknown [id number] 2.16.840.1.596271.3.579.2. 462 Unknown [id number] 2.16.840.1.700127.3.579.2. 462 Unknown [id number] 2.16840.1.901906.3.579.2. 462 Unknown [id number] 2.16.840.1.991893.3.579.2. 462 Unknown [id number] 2.16.840.1.943899.3.579.2. 462 Unknown [id number] 2.840.1.119128.3.579.2. 462 Social History Date Type Detail Facility Start: 05-01-2019 End: 12-31-2024 Tobacco smoking status NHIS Former smoker [facility] Start: 09-04-1974 End: 12-27-2014 History of tobacco use Current smoker [place] Start: 05-01-2019 End: 07-02-2024 Alcohol intake Current non-drinker of alcohol (finding) [place], [place] Start: 09-22-2016 Tobacco Comment quit 2 years ago [place], [place] Start: 1950 Sex Assigned At Not on file [place] Start: 04-04-2019 End: 02-21-2023 Alcohol intake No [facility] Start: 09-04-1974 End: 09-04-2014 History of tobacco use Cigarette Smoker [facility] Start: 10-14-2014 End: 02-21-2023 Cigarettes smoked current (pack per day) - Reported 1 [facility] Start: 10-14-2014 End: 07-02-2024 Tobacco use and exposure Smokeless tobacco non-user [facility] Start: 03-07-2013 End: 02-21-2023 Tobacco Comment Father smoked in childhood home. [facility] Start: 10-18-2021 End: 04-12-2023 Tobacco smoking status NVIS Unknown if ever smoked [facility] Start: 06-24-2019 None [facility] Start: 06-24-2019 Alone [facility] Start: 07-24-2019 Non-smoker [facility] Start: 1950 Sex Assigned At Female W [facility] PHQ2 Score 0 [facility] Start: 08-21-2024 End: 09-09-2024 Sex Female (finding) [facility] NEGATED: Highlighted row [facility] Medical Equipment Procedure Code Equipment Code Equipment Origin al Text Equipment Identifier Dates [id number] Start: 08-03-2017 End: 10-15-2021 Comment on above: Test blood sugar(s) 4 times daily. Dx: Type 2 DM - Uncontrolled E11.65 Insulin: Yes.Send to pt whatever meter and supplies are covered. Use one needle per d ose. 4 per day. Test blood sugar(s) 4 times daily. Dx: Type 2 DM - Uncontrolled E11.65 Insulin: Yes Send to pt what ever meter and supplies are covered. 1 each by In Vit ro route 4 times daily TID, DX: E11.9 [id number] Start: 04-26-2019 1 each by Does n ot apply route daily [id number] Start: 04-10-2017 1 each by In Vit ro route 4 times daily TID, DX: E11.9 [id number] Start: 10-16-2018 End: 04-26-2019 Test blood sugar (s) 4 times daily. Dx: Type 2 DM - Uncontrolled E11.65 Insulin: Yes.Send to pt whatever meter and supplies are covered. [id number] Start: 07-28-2021 Use one needle p er dose. 4 per day. [id number] Start: 10-16-2021 Test blood sugar (s) 4 times daily. Dx: Type 2 DM - Uncontrolled E11.65 Insulin: Yes Send to pt what ever meter and supplies are covered. [id number] Start: 07-28-2021 Goals Date Patient Goal Desired Activity /State Personal health goal Functional Status Date Assessment Result Facility 08-13-2018 Are you deaf, or do you have serious difficulty hearing No 08/13/2018 4:40 PM EDT George Vinson RN [facility] 08-13-2018 Are you blind, or do you have serious difficulty seeing, even when wearing glasses No 08/13/2018 4:40 PM EDT George Vinson, FADI No [facility] 08-13-2018 Do you have serious difficulty walking or climbing stairs No 08/13/2018 4:40 PM EDT George Vinson, FADI No [facility] 08-13-2018 Do you have difficul ty dressing or bathing No 08/13/2018 4:40 PM EDT George Vinson, FADI No [facility] 08-13-2018 Because of a physica l, mental, or emotional condition, do you have difficulty doing errands alone such as visiting a physician's office or shopping Yes 08/13/2018 4:40 PM EDT George Vinson RN Yes [facility] Mental Status Date Assessment Result Facility 08-09-2024 Cognitive function Awake;Alert;A ppropriate;Fo llows Commands [facility] Work Phone: 07-12-2022 Cognitive function Touch/Shaking [facility] Work Phone: 07-12-2022 Cognitive function Patient Orien tation Person;Place;Time [facility] Work Phone: 07-15-2021 Cognitive function Awake;Alert;A ppropriate;Fo llows Commands [facility] Work Phone: 08-13-2018 Because of a physica l, mental, or emotional condition, do you have serious difficulty concentrating, remembering, or making decisions Yes 08/13/2018 4:40 PM EDT George Vinson RN Yes [facility] Clinical Notes 08-15-2018 to 12-31-2024 Note Date & Type Note Facility 12-31-2024 Radiology Diagnostic study note [facility] Imaging Services [address] [place] [address] [id number] Hand Min 3 Views MR#: [id number] Acct: [id number] Name: LAYLA HIGUERA Rep #: [id number] : 1950 F 74 From: Johnathan Handy MD PCP: GABY Jewell Status: REG ER Study:Hand Min 3 Views Date of Exam: Exam# [id number] Ordering Dr: Jose Davis DO PROCEDURE: LEFT HAND MIN 3 VIEWS 12/31/2024 REASON FOR EXAM: PAIN TECHNIQUE: LEFT HAND MIN 3 VIEWS COMPARISON: None. FINDINGS: No acute fracture or dislocation. Alignment is anatomic. Mild diffuse interphalangeal joint space narrowing. No periarticular erosion. Qualitative osteopenia. No appreciable soft tissue swelling. RAD/Hand Min 3 Views IMPRESSION: No acute or aggressive osseous abnormality. Mild degenerative changes. Reading Location: [facility] CC: GABY Sylvester; Dr. Marleny Davis DO ~ [place]: Signed [facility] 12-31-2024 Radiology Diagnostic study note [facility] Imaging Services [address] [place] [address] Chest PA and Lateral MR#: [id number] Acct: [id number] Name: LAYLA HIGUERA Rep #: [id number] : 1950 F 74 From: Johnathan Handy MD PCP: GABY Jewell Status: REG ER Study:Chest PA and Lateral Date of Exam: 12/31/24 Exam# [id number] Ordering Dr: Jose Davis DO PROCEDURE: CHEST PA AND LATERAL 12/31/2024 REASON FOR EXAM: CHEST PAIN TECHNIQUE: CHEST PA AND LATERAL COMPARISON: 03/19/2024 FINDINGS: Lungs/Pleura: No focal consolidation, pneumothorax, or pleural effusion. Heart/Mediastinum: Mild cardiomegaly. Evidence of prior CABG with sternotomy wires and multiple mediastinal surgical clips. No significant vascular congestion. Bones/Soft tissues: Multilevel degenerative changes of the spine. RAD/Chest PA and Lateral IMPRESSION: Cardiomegaly. No evidence of acute cardiopulmonary disease. Reading Location: [facility] CC: GABY Sylvester; Dr. Marleny Davis DO ~ [place]: Signed [facility] 09-02-2024 Evaluation note Diagnosis Onset Date Resolution Osteoporosis acute September 02, 2024 1:03pm Chronic fatigue chronic August 1:03pm Diabetes chronic September 02 1:03pm Essential (primary) hypertension chronic September 02, 2024 1:03pm Hyperlipidemia chronic August 1:03pm Obesity chronic September 02 1:03pm Dysphagia acute October 03, 2024 2:49pm Constipation chronic October 03 2:49pm [facility] Work Phone: [phone] Evaluation note* Diagnosis Onset Date Resolution Status Admit Date Osteoporosis acute September 02, 2024 1:03pm Chronic fatigue chronic August 1:03pm Diabetes chronic September 02 1:03pm Essential (primary) hypertension chronic September 02, 2024 1:03pm Hyperlipidemia chronic August 1:03pm Obesity chronic September 02 1:03pm Dysphagia acute October 03, 2024 2:49pm Constipation chronic October 03 2:49pm Essential (primary) hypertension chronic December 10, 2024 1:55pm Fatigue chronic December 10, 2024 1:55pm Hyperlipidemia chronic December 10, 2024 1:55pm H/O coronary artery bypass surgery May 30, 2018 resolved December 10 1:55pm [facility] Work Phone: 1(122) 639-410703-11-2025 History and physical note Author Philip Drummond [facility] Note Date/Time August 13, 2024 8:2 6pm [facility] Medical Records Department [address] [place] [address] History & Physical Exam 08/09/24 1400 MR#: [id number] Acct: [id number] Name: LAYLA HIGUERA Rep #:[id number] : 1950 74 From: Philip Drummond DO PCP: GABY Jewell Status:[facility] [place] [place] Location: EN HPI - General General Date of Admission: 08/09/24 Date of Service: 08/09/24 Chief Complaint: Esophageal dysphagia HPI Narrative LAYLA HIGUERA, is a 74 F who presents today for esophageal manometry due toworsening esophageal dysphagia and intermittent chest pain. [facility] Medical History Cardiac murmur Current use of [facility] anticoagulation Arterial vascular disease Bilateral buttock pain Lumbar back pain Wears glasses Cancer Insulin dependent diabetes mellitus Arthritis Walker as ambulation aid Ambulates with cane Bladder disease High cholesterol Back pain Seizures History of hiatal hernia History of diverticulitis Gastric reflux History of heart attack History of irregular heartbeat Cardiology follow-up encounter History of echocardiogram History of stress test Dehydration Fecal impaction of colon Abdominal pain Nausea and vomiting Coronary atherosclerosis Ischemic stroke GERD (gastroesophageal reflux disease) Pancreatitis Chronic pain Former smoker Sternum pain History of CVA (cerebrovascular accident) (09/2014) Atherosclerosis of coronary artery of [place] heart without angina pectoris History of non-ST elevation myocardial infarction (NSTEMI) (06/2018) Essential (primary) hypertension Overactive bladder Anxiety Tobacco abuse Diabetes Hyperlipidemia Home Medications ?Medication ?Instructions ?Recorded ?Last Taken ?Type aspirin 81 mg tablet,delayed 81 mg PO DAILY@0800 [facility] 06/14/18 2 Days Ago History release ~02/21/21 insulin glargine 100 unit/mL (3 50 unit subcut QHS 03/26 Unknown History mL) subcutaneous pen (Lantus Solostar U-100 Insulin) citalopram 10 mg tablet (Celexa) 20 mg PO DAILY Unknown History insulin aspart U-100 100 unit/mL 17 unit subcut TID Unknown History (3 mL) subcutaneous pen (Novolog FlexPen U-100 Insulin aspart) calcium carbonate-vit A and D 1 tab PO DAILY 01/31/22 Unknown History tablet famotidine 40 mg tablet 40 mg PO DAILY 07/27/22 Unkn own History omeprazole 40 mg capsule,delayed 40 mg PO DAILY #90 ca ps 10/13/22 Unknown Rx release nitroglycerin 0.4 mg sublingual 0.4 mg sublingual Q5-1 5M PRN chest 04/12/23 Unknown Rx tablet (Nitrostat) pain #25 tabs docusate sodium 100 mg capsule 100 mg PO PRN PRN const ipation 06/16/23 Unknown History levocetirizine 5 mg tablet 5 mg PO DAILY 06/16/23 Unkn own History calcium 500 mg tablet 500 mg PO BID 10/17/23 Unkno wn History tiotropium 2.5 mcg-olodaterol 2.5 2 puff inhalation DA MAURIZIO 10/25/23 Unknown History mcg/actuation mist for inhalation (Stiolto Respimat) ferrous fumarate 325 mg (106 mg 325 mg PO QDAY 4 Unknown History iron) tablet cholecalciferol (vitamin D3) 50 50 mcg PO QDAY 4 Unknown History mcg (2,000 unit) capsule ezetimibe 10 mg tablet (Zetia) 10 mg PO QDAY #30 tabs 04/23/24 Unknown Rx amlodipine 10 mg tablet See Rx Instructions .Route 0 07/19/24 Unknown Rx .COMPLEX #28 tabs lisinopril 5 mg tablet 5 mg PO DAILY #30 tabs 08/08 Unknown Rx Allergy/AdvReac Type Severity Reaction Status Date / Time codeine Allergy Other Verified 05/14/24 15:24 Penicillins Allergy Swelling Verified 05/14/24 15:24 Sulfa (Sulfonamide Allergy Swelling Verified 05/14/24 15:24 Antibiotics) diphenhydramine (From AdvReac Intermediate Other Verified 05/14/24 15:24 Benadryl) acetaminophen (From Tylenol) AdvReac NEEDS Verified 05/14/24 15:24 FOLLOW-UP metoclopramide (From Reglan) AdvReac Other Verified 05/14/24 15:24 Surgical History Hx of endoscopy Hx of colonoscopy History of sinus surgery History of left heart catheterization (05/28/18) H/O coronary artery bypass surgery (05/30/18) Social History household members: none Smoking Status: Former smoker alcohol intake: current alcohol intake frequency: holidays/special occasions only substance use type: does not use ROS Constitutional Constitutional: Denies fatigue, fever(s), poor appetite, weight gain or weight loss Gastrointestinal Gastrointestinal: Denies belching, bloating, change in bowel habits, change in stool character, chewing difficulty, coffee ground emesis, constipation, cramping, diarrhea, dyspepsia, dysphagia, early satiety, excessive flatus, fecalincontinence, heartburn, hematemesis, hematochezia, hemorrhoids, loose stools, melena, nausea, odynophagia, rectal bleeding, tenesmus, vomiting or weight changes Physical Exam Const alert, oriented x3, no apparent distress and healthy appearing General Appearance: cooperative GI normal to inspection, nondistended, normoactive bowel sounds, soft to palpation,non-tender and non-distended Percussion: normal to percussion Rectal Exam: deferred Assessment & Plan Assessment/Plan (1) Dysphagia: PLAN: She will undergo esophageal manometry to evaluate for esophageal motility disorder. 08/13/242025 <Electronically signed by Philip Drummond DO> Cosigner Signature (if applicable): CC: GABY Sylvester; Philip Drummond DO~ Signed [facility] Work Phone: 1(676) 933-989603-11-2025 History and physical note [facility] Medical Records Department [address] [place] [address] History & Physical Exam 08/09/24 1400 MR#: [id number] Acct: [id number] Name: LAYLA HIGUERA Rep #:[id number] : 1950 74 From: Philip Drummond DO PCP: GABY Jewell Status:[facility] [place] [place] Location: EN HPI - General General Date of Admission: 08/09/24 Date of Service: 08/09/24 Chief Complaint: Esophageal dysphagia HPI Narrative LAYLA HIGUERA, is a 74 F who presents today for esophageal manometry due toworsening esophageal dysphagia and intermittent chest pain. [facility] Medical History Cardiac murmur Current use of long term care administrator anticoagulation Arterial vascular disease Bilateral buttock pain Lumbar back pain Wears glasses Cancer Insulin dependent diabetes mellitus Arthritis Walker as ambulation aid Ambulates with cane Bladder disease High cholesterol Back pain Seizures History of hiatal hernia History of diverticulitis Gastric reflux History of heart attack History of irregular heartbeat Cardiology follow-up encounter History of echocardiogram History of stress test Dehydration Fecal impaction of colon Abdominal pain Nausea and vomiting Coronary atherosclerosis Ischemic stroke GERD (gastroesophageal reflux disease) Pancreatitis Chronic pain Former smoker Sternum pain History of CVA (cerebrovascular accident) (09/2014) Atherosclerosis of coronary artery of [place] heart without angina pectoris History of non-ST elevation myocardial infarction (NSTEMI) (06/2018) Essential (primary) hypertension Overactive bladder Anxiety Tobacco abuse Diabetes Hyperlipidemia Home Medications ?Medication ?Instructions ?Recorded ?Last Taken ?Type aspirin 81 mg tablet,delayed 81 mg PO DAILY@0800 [facility] 06/14/18 2 Days Ago History release ~02/21/21 insulin glargine 100 unit/mL (3 50 unit subcut QHS 03/26 Unknown History mL) subcutaneous pen (Lantus Solostar U-100 Insulin) citalopram 10 mg tablet (Celexa) 20 mg PO DAILY Unknown History insulin aspart U-100 100 unit/mL 17 unit subcut TID Unknown History (3 mL) subcutaneous pen (Novolog FlexPen U-100 Insulin aspart) calcium carbonate-vit A and D 1 tab PO DAILY 01/31/22 Unknown History tablet famotidine 40 mg tablet 40 mg PO DAILY 07/27/22 Unkn own History omeprazole 40 mg capsule,delayed 40 mg PO DAILY #90 ca ps 10/13/22 Unknown Rx release nitroglycerin 0.4 mg sublingual 0.4 mg sublingual Q5-1 5M PRN chest 04/12/23 Unknown Rx tablet (Nitrostat) pain #25 tabs docusate sodium 100 mg capsule 100 mg PO PRN PRN const ipation 06/16/23 Unknown History levocetirizine 5 mg tablet 5 mg PO DAILY 06/16/23 Unkn own History calcium 500 mg tablet 500 mg PO BID 10/17/23 Unkno wn History tiotropium 2.5 mcg-olodaterol 2.5 2 puff inhalation DA MAURIZIO 10/25/23 Unknown History mcg/actuation mist for inhalation (Stiolto Respimat) ferrous fumarate 325 mg (106 mg 325 mg PO QDAY 4 Unknown History iron) tablet cholecalciferol (vitamin D3) 50 50 mcg PO QDAY 4 Unknown History mcg (2,000 unit) capsule ezetimibe 10 mg tablet (Zetia) 10 mg PO QDAY #30 tabs 04/23/24 Unknown Rx amlodipine 10 mg tablet See Rx Instructions .Route 0 07/19/24 Unknown Rx .COMPLEX #28 tabs lisinopril 5 mg tablet 5 mg PO DAILY #30 tabs 08/08 Unknown Rx Allergy/AdvReac Type Severity Reaction Status Date / Time codeine Allergy Other Verified 05/14/24 15:24 Penicillins Allergy Swelling Verified 05/14/24 15:24 Sulfa (Sulfonamide Allergy Swelling Verified 05/14/24 15:24 Antibiotics) diphenhydramine (From AdvReac Intermediate Other Verified 05/14/24 15:24 Benadryl) acetaminophen (From Tylenol) AdvReac NEEDS Verified 05/14/24 15:24 FOLLOW-UP metoclopramide (From Reglan) AdvReac Other Verified 05/14/24 15:24 Surgical History Hx of endoscopy Hx of colonoscopy History of sinus surgery History of left heart catheterization (05/28/18) H/O coronary artery bypass surgery (05/30/18) Social History household members: none Smoking Status: Former smoker alcohol intake: current alcohol intake frequency: holidays/special occasions only substance use type: does not use ROS Constitutional Constitutional: Denies fatigue, fever(s), poor appetite, weight gain or weight loss Gastrointestinal Gastrointestinal: Denies belching, bloating, change in bowel habits, change in stool character, chewing difficulty, coffee ground emesis, constipation, cramping, diarrhea, dyspepsia, dysphagia, earlysatiety, excessive flatus, fecalincontinence, heartburn, hematemesis, hematochezia, hemorrhoids, loose stools, melena, nausea, odynophagia, rectal bleeding, tenesmus, vomiting or weight changes Physical Exam Const alert, oriented x3, no apparent distress and healthy appearing General Appearance: cooperative GI normal to inspection, nondistended, normoactive bowel sounds, soft to palpation,non-tender and non-distended Percussion: normal to percussion Rectal Exam: deferred Assessment & Plan Assessment/Plan (1) Dysphagia: PLAN: She will undergo esophageal manometry to evaluate for esophageal motility disorder. 08/13/242025 Cosigner Signature (if applicable): CC: GABY Sylvester; Philip Drummond DO~ Signed [facility]03-07-2025 [facility] Medical Records Department [address] [place] [address] History Physical Exam 08/09/24 1400 MR#: [id number] Acct: [id number] Name: LAYLA HIGUERA Rep #: [id number] : 1950 74 From: Philip Drummond DO PCP: GABY Jewell Status:[facility] Location: EN HPI - General General Date of Admission: 08/09/24 Date of Service: 08/09/24 Chief Complaint: Esophageal dysphagia HPI Narrative LAYLA HIGUERA, is a 74 F who presents today for esophageal manometry due to worsening esophageal dysphagia and intermittent chest pain. [facility] Medical History Cardiac murmur Current use of long term care administrator anticoagulation Arterial vascular disease Bilateral buttock pain Lumbar back pain Wears glasses Cancer Insulin dependent diabetes mellitus Arthritis Walker as ambulation aid Ambulates with cane Bladder disease High cholesterol Back pain Seizures History of hiatal hernia History of diverticulitis Gastric reflux History of heart attack History of irregular heartbeat Cardiology follow-up encounter History of echocardiogram History of stress test Dehydration Fecal impaction of colon Abdominal pain Nausea and vomiting Coronary atherosclerosis Ischemic stroke GERD (gastroesophageal reflux disease) Pancreatitis Chronic pain Former smoker Sternum pain History of CVA (cerebrovascular accident) (09/2014) Atherosclerosis of coronary artery of [place] heart without angina pectoris History of non-ST elevation myocardial infarction (NSTEMI) (06/2018) Essential (primary) hypertension Overactive bladder Anxiety Tobacco abuse Diabetes Hyperlipidemia Home Medications ???Medication ???Instructions ???Recorded ???Last Taken ???Type aspirin 81 mg tablet,delayed 81 mg PO DAILY@0800 [facility] 0 06/14/18 2 Days Ago History release 02/21/21 insulin glargine 100 unit/mL (3 50 unit subcut QHS 07/15/21 Unknow n History mL) subcutaneous pen (Lantus Solostar U-100 Insulin) citalopram 10 mg tablet (Celexa) 20 mg PO DAILY 08/27/21 Unknown Hi story insulin aspart U-100 100 unit/mL 17 unit subcut TID 09/16/21 Unknow n History (3 mL) subcutaneous pen (Novolog FlexPen U-100 Insulin aspart) calcium carbonate-vit A and D 1 tab PO DAILY 01/31/22 Unknown Hi story tablet famotidine 40 mg tablet 40 mg PO DAILY 07/27/22 Unknown Hi story omeprazole 40 mg capsule,delayed 40 mg PO DAILY #90 caps 10/13/22 U nknown Rx release nitroglycerin 0.4 mg sublingual 0.4 mg sublingual Q5-15M PRN chest 04/12/23 Unknown Rx tablet (Nitrostat) pain #25 tabs docusate sodium 100 mg capsule 100 mg PO PRN PRN constipation 05/28 Unknown History levocetirizine 5 mg tablet 5 mg PO DAILY 06/16/23 Unknown His tory calcium 500 mg tablet 500 mg PO BID 10/17/23 Unknown His tory tiotropium 2.5 mcg-olodaterol 2.5 2 puff inhalation DAILY 10/25/23 Unknown History mcg/actuation mist for inhalation (Stiolto Respimat) ferrous fumarate 325 mg (106 mg 325 mg PO QDAY 03/06/24 Unknown Hi story iron) tablet cholecalciferol (vitamin D3) 50 50 mcg PO QDAY 04/18/24 Unknown Hi story mcg (2,000 unit) capsule ezetimibe 10 mg tablet (Zetia) 10 mg PO QDAY #30 tabs 04/23/24 Un known Rx amlodipine 10 mg tablet See Rx Instructions .Route 5 Unknown Rx .COMPLEX #28 tabs lisinopril 5 mg tablet 5 mg PO DAILY #30 tabs 08/08/24 Un known Rx Allergy/AdvReac Type Severity Reaction Status Date / Time codeine Allergy Other Verified 05/14/24 15:24 Penicillins Allergy Swelling Verified 05/14/24 15:24 Sulfa (Sulfonamide Allergy Swelling Verified 05/14/24 15:24 Antibiotics) diphenhydramine (From AdvReac Intermediate Other Verified 05/14/24 15:24 Benadryl) acetaminophen (From Tylenol) AdvReac NEEDS Verified 05/14/24 15:24 FOLLOW-UP metoclopramide (From Reglan) AdvReac Other Verified 05/14/24 15:24 Surgical History Hx of endoscopy Hx of colonoscopy History of sinus surgery History of left heart catheterization (05/28/18) H/O coronary artery bypass surgery (05/30/18) Social History household members: none Smoking Status: Former smoker alcohol intake: current alcohol intake frequency: holidays/special occasions only substance use type: does not use ROS Constitutional Constitutional: Denies fatigue, fever(s), poor appetite, weight gain or weight loss Gastrointestinal Gastrointestinal: Denies belching, bloating, change in bowel habits, change in stool character, chewing difficulty, coffee ground emesis, constipation, cramping, diarrhea, dyspepsia, dysphagia, early satiety, excessive flatus, fecal incontinence, hea (more content not included)...[facility]02-07-2025 Telephone encounter Note* Telephone Encounter - Daniela Tatum LPN - 07/12/2024 11:38 AM EST Per [facility] note 07/02/24. Patient has discontinued Stiolto. Last seen by this office in February 2023. Asked pharmacy to have patient contact office and schedule follow up if she is needing this medication. Daniela Tatum LPN [facility]02-07-2025 Miscellaneous Notes* Telephone Encounter - Daniela Tatum LPN - 07/12/2024 11:38 AM EST Per Epic note 07/02/24. Patient has discontinued Stiolto. Last seen by this office in February 2023. Asked pharmacy to have patient contact office and schedule follow up if she is needing this medication. Daniela Tatum LPN documented in [facility]30[facility] Telephone encounter Note * Telephone Encounter - Wanda Reardon RN - 07/04/2024 1:11 PM EST Called Pt and notified her of this. Pt states she will give the Clobetasol another try for 3 weeks and will use as JG had directed and will call office back if does not seem to be helping. Pt states A&D did not work in the past. Wanda Reardon RN [facility]01-30-2025 Miscellaneous Notes* Telephone Encounter - Wanda Reardon RN - 07/04/2024 1:11 PM EST Called Pt and notified her of this. Pt states she will give the Clobetasol another try for 3 weeks and will use as JG had directed and will call office back if does not seem to be helping. Pt states A&D did not work in the past. Wanda Reardon RN * Telephone Encounter - Mae Raya MD - 07/04/2024 12:52 PM EST Pt previous have kenalog not clobetasol. Other than a skin protectant like A&D, there are no other creams for itching * Telephone Encounter - Mae Diaz RN - 07/04/2024 12:38 PM EST Patient notified. She picked up the Clobetasol RX, but hasn't started using it. States it didn't work the last time. Asked if she would like to give it a try now since she already picked up the prescription. Patient stated no. Wants another type of medication sent. Mae Diaz RN * Telephone Encounter - Wanda Reardon RN - 07/04/2024 8:43 AM EST Left message for patient to call office. Wanda Reardon RN * Telephone Encounter - Wanda Reardon RN - 07/04/2024 8:42 AM EST ----- Message from Mae Raya MD sent at 07/04/2024 8:38 AM EST ----- Please let patient know her vaginal cultures are negative for infection documented in this encounterFire[facility] Telephone encounter Note * Telephone Encounter - Mae Raya MD - 07/04/2024 12:52 PM EST Pt previous have kenalog not clobetasol. Other than a skin protectant like A&D, there are no other creams for itching [facility]01-30-2025 Telephone encounter Note* Telephone Encounter - Mae Diaz RN - 07/04/2024 12:38 PM EST Patient notified. She picked up the Clobetasol RX, but hasn't started using it. States it didn't work the last time. Asked if she would like to give it a try now since she already picked up the prescription. Patient stated no. Wants another type of medication sent. Mae Diaz RN [facility]01-30-2025 Telephone encounter Note* Telephone Encounter - Wanda Reardon RN - 07/04/2024 8:43 AM EST Left message for patient to call office. Wanda Reardon RN [facility]01-30-2025 Telephone encounter Note* Telephone Encounter - Wanda Reardon RN - 07/04/2024 8:42 AM EST ----- Message from Mae Raya MD sent at 07/04/2024 8:38 AM EST ----- Please let patient know her vaginal cultures are negative for infection [facility]01-28-2025 NoteHNO ID: [id number] Author: MAE RAYA MD Service: ? Author Type: Physician Type: Progress Notes Filed: 07/02/2024 16:34 Note Text: [employer] 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 Layla Higuera is a 74 year old female who presents for problem visit itching and prolapse for 1 year(s). HPI: Complains of intense vulvar itching for the last year. No discharge or bleeding. Tried kenalog cream but did not feel it helped. Unsure of how long she use it. Has tried witch yang as well. No dysuria. No difficulty emptying bladder or bowels Feels a bulge every time she has a bowel movement. Thinks it is worse than before. Was previously offered referral but did not schedule. Would like to see urogyn for treatment OB History No obstetric history on file. 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 CAD (coronary artery disease) COPD (chronic obstructive pulmonary disease) ([facility]) 03/18/2013 Stage 0. Normal FEV1 03/2013. Diabetes mellitus type II DVT (deep venous thrombosis) ([facility]) 09/2014 during hospitalization for CVA, bilateral legs and head Dysphagia due to recent stroke 09/2014 GERD (gastroesophageal reflux disease) Hyperlipidemia Hypertension Migraines NSTEMI (non-ST elevated myocardial infarction) (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 Stroke ([facility]) SUMMARY 10/14/2014 Ms Layla Higuera is a 64 year old with a PMH of HTN, DM2, COPD, CVA presenting with bilateral chest pain Weakness left sided 2nd to cva PAST SURGICAL HISTORY Procedure Laterality Date CABG (3) VEIN GRAFTS AND ARTERIAL GRAFT(S) 05/30/2018 CAROTID ENDARTERECTOMY Right 2014 COLONOSCOPY 09/2012 ESOPHAGOGASTRODUODENOSCOPY TRANSORAL DIAGNOSTIC 09/2012 EGD PAST SURGICAL HISTORY OF 1974 explority of fallopian tubes PAST SURGICAL HISTORY OF 1998 cervical sterum SEPTOPLASTY 1998 FAMILY HISTORY Problem Relation Age of Onset Diabetes Mother Colon Cancer Mother Heart disease Father Diabetes Brother other (CABG) Brother other (esophageal cancer) Brother Asthma No Family History COPD No Family History Intersitial Lung Disease No Family History Social History Tobacco Use Smoking status: Former Current packs/day: 0.00 Average packs/day: 1 pack/day for 40.0 years (40.0 ttl pk-yrs) Types: Cigarettes Start date: 09/04/1974 Quit date: 09/04/2014 Years since quittin.8 Smokeless tobacco: Never Tobacco comments: Father smoked in childhood home. Vaping Use Vaping status: Never Used Substance Use Topics Alcohol use: No Drug use: No Current Outpatient Medications Medication Sig triamcinolone acetonide (KENALOG) 0.1 % ointment Apply to affected area two times a day. For 10-14 days. vitamin A and D ointment Apply to affected area as needed. Apply each time pull up is changed to vulvar area. STIOLTO RESPIMAT 2.5-2.5 mcg/actuation inhale 2 puffs by mouth daily levocetirizine 5 mg tablet 5 mg. lisinopril (ZESTRIL) 5 mg tablet 5 mg. tiotropium bromide (SPIRIVA RESPIMAT) 2.5 mcg/actuation inhaler Inhale 2 Puffs as instructed once daily. (Patient not taking: Reported on 03/09/2023) calcium carbonate (OS-STEPHANIE 500) 500 mg calcium (1,250 mg) tablet citalopram (CELEXA) 20 mg tablet famotidine (PEPCID) 40 mg tablet rosuvastatin (CRESTOR) 40 mg tablet (Patient not taking: Reported on 03/14/2023) umeclidinium (INCRUSE ELLIPTA) 62.5 mcg/actuation inhaler Inhale 1 Puff as instructed once daily. (Patient not taking: Reported on 03/09/2023) pravastatin (PRAVACHOL) 40 mg tablet Take 1 tablet by mouth daily at bedtime. (Patient not taking: Reported on 02/21/2023) insulin needles, DISPOSABLE, (PEN NEEDLE) 31 gauge x 5/16 Use one needle per dose. 4 per day. blood sugar diagnostic (BLOOD GLUCOSE TEST) test strip Test blood sugar(s) 4 times daily. Dx: Type 2 DM - Uncontrolled E11.65 Insulin: Yes.Send to pt whatever meter and supplies are covered. Lancets lancets Test blood sugar(s) 4 times daily. Dx: Type 2 DM - Uncontrolled E11.65 Insulin: Yes Send to pt what ever meter and supplies are covered. aspirin, enteric coated (ASPIRIN, ENTERIC COATED) 81 mg EC tablet Take 1 tablet by mouth once daily. docusate sodium (COLACE) 100 mg capsule Take 1 capsule by mouth twice daily. insulin glargine (LANTUS SOLOSTAR, BASAGLAR KWIKPEN) 100 unit/mL (3 mL) Inject 30 Units subcutaneously daily at bedtime. Adjust dose as directed insulin aspart U-100 (NOVOLOG FLEXPEN U-100 INSULIN) 100 unit/mL (3 mL) Inject 10 Units subcutaneously three times daily before meals. If Blood Glucose (mg/dL) is: Less than 110 Give 0 units 111-150 Give 0 units 151-200 Give 1 unit 201-250 Give 2 uni (more content not included)...[facility] 07-02-2024 History of Present illness Narrative* Mae Raya MD - 07/02/2024 3:28 PM EST [employer] 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 Layla Higuera is a 74 year old female who presents for problem visit itching and prolapse for 1 year(s). HPI: Complains of intense vulvar itching for the last year. No discharge or bleeding. Tried kenalogcream but did not feel it helped. Unsure of how long she use it. Has tried witch yang as well. No dysuria. No difficulty emptying bladder or bowels Feels a bulge every time she has a bowel movement. Thinks it is worse than before. Was previously offered referral but did not schedule. Would like to see urogyn for treatment OB History No obstetric history on file. 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 CAD (coronary artery disease) COPD (chronic obstructive pulmonary disease) ([facility]) 03/18/2013 Stage 0. Normal FEV1 03/2013. Diabetes mellitus type II DVT (deep venous thrombosis) ([facility]) 09/2014 during hospitalization for CVA, bilateral legs and head Dysphagia due to recent stroke 09/2014 GERD (gastroesophageal reflux disease) Hyperlipidemia Hypertension Migraines NSTEMI (non-ST elevated myocardial infarction) (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 Stroke (HCC) SUMMARY 10/14/2014 Ms Layla Higuera is a 64 year old with a PMH of HTN, DM2, COPD, CVA presenting with bilateral chest pain Weakness left sided 2nd to cva PAST SURGICAL HISTORY Procedure Laterality Date CABG (3) VEIN GRAFTS & ARTERIAL GRAFT(S) 05/30/2018 CAROTID ENDARTERECTOMY Right 2015 COLONOSCOPY 09/2012 ESOPHAGOGASTRODUODENOSCOPY TRANSORAL DIAGNOSTIC 09/2012 EGD PAST SURGICAL HISTORY OF 1974 explority of fallopian tubes PAST SURGICAL HISTORY OF 1998 cervical sterum SEPTOPLASTY 1998 FAMILY HISTORY Problem Relation Age of Onset Diabetes Mother Colon Cancer Mother Heart disease Father Diabetes Brother other (CABG) Brother other (esophageal cancer) Brother Asthma No Family History COPD No Family History Intersitial Lung Disease No Family History Social History Tobacco Use Smoking status: Former Current packs/day: 0.00 Average packs/day: 1 pack/day for 40.0 years (40.0 ttl pk-yrs) Types: Cigarettes Start date: 09/04/1974 Quit date: 09/04/2014 Years since quittin.8 Smokeless tobacco: Never Tobacco comments: Father smoked in childhood home. Vaping Use Vaping status: Never Used Substance Use Topics Alcohol use: No Drug use: No Current Outpatient Medications Medication Sig triamcinolone acetonide (KENALOG) 0.1 % ointment Apply to affected area two times a day. For 10-14 days. vitamin A and D ointment Apply to affected area as needed. Apply each time pull up is changed to vulvar area. STIOLTO RESPIMAT 2.5-2.5 mcg/actuation inhale 2 puffs by mouth daily levocetirizine 5 mg tablet 5 mg. lisinopril (ZESTRIL) 5 mg tablet 5 mg. tiotropium bromide (SPIRIVA RESPIMAT) 2.5 mcg/actuation inhaler Inhale 2 Puffs as instructed once daily. (Patient not taking: Reported on 03/09/2023) calcium carbonate (OS-STEPHANIE 500) 500 mg calcium (1,250 mg) tablet citalopram (CELEXA) 20 mg tablet famotidine (PEPCID) 40 mg tablet rosuvastatin (CRESTOR) 40 mg tablet (Patient not taking: Reported on 03/14/2023) umeclidinium (INCRUSE ELLIPTA) 62.5 mcg/actuation inhaler Inhale 1 Puff as instructed once daily. (Patient not taking: Reported on 03/09/2023) pravastatin (PRAVACHOL) 40 mg tablet Take 1 tablet by mouth daily at bedtime. (Patient not taking: Reported on 02/21/2023) insulin needles, DISPOSABLE, (PEN NEEDLE) 31 gauge x 5/16 Use one needle per dose. 4 per day. blood sugar diagnostic (BLOOD GLUCOSE TEST) test strip Test blood sugar(s) 4 times daily. Dx: Type 2 DM - Uncontrolled E11.65 Insulin: Yes.Send to pt whatever meter and supplies are covered. Lancets lancets Test blood sugar(s) 4 times daily. Dx: Type 2 DM - Uncontrolled E11.65 Insulin: YesSend to pt what ever meter and supplies are covered. aspirin, enteric coated (ASPIRIN, ENTERIC COATED) 81 mg EC tablet Take 1 tablet by mouth once daily. docusate sodium (COLACE) 100 mg capsule Take 1 capsule by mouth twice daily. insulin glargine (LANTUS SOLOSTAR, BASAGLAR KWIKPEN) 100 unit/mL (3 mL) Inject 30 Units subcutaneously daily at bedtime. Adjust dose as directed insulin aspart U-100 (NOVOLOG FLEXPEN U-100 INSULIN) 100 unit/mL (3 mL) Inject 10 Units subcutaneously three times daily before meals. If Blood Glucose (mg/dL) is: Less than 110 Give 0 units 111-150 Give 0 units 151-200 Give 1 unit 201-250 Give 2 units 251-300 Give 3 units 301-350 Give 4 units 351-400 Give 5 units Greater than 400 Give 5 units and Notify Provider Notify provider if 2 consecutive blood glucose values in the previous 24 hours are greater than 250 mg/mL and there have been no changes to the insulin regimen in the previous 24 hours. Cholecalciferol, Vitamin D3, 25 mcg (1,000 unit) chew Take 3 tablets by mouth once daily. (Patient not taking: Reported on 03/09/2023) metoprolol tartrate, short acting, (LOPRESSOR) 25 mg tablet Take 0.5 tablets by mouth every 12 hours. cyclobenzaprine (FLEXERIL) 10 mg tablet Take 1 tablet by mouth twice daily as needed for muscle spasm. (Patient not taking: Reported on 03/09/2023) cyanocobalamin (VITAMIN B-12) 1,000 mcg tab Take 1 tablet by mouth once daily. (Patient not taking:Reported on 03/09/2023) clopidogrel (PLAVIX) 75 mg tablet Take 1 tablet by mouth once daily. (Patient not taking: Reported on 02/21/2023) ondansetron (ZOFRAN) 4 mg tablet Take 1 tablet by mouth every 8 hours as needed. (Patient not taking: Reported on 03/09/2023) amLODIPine (NORVASC) 5 mg tablet Take 5 mg by mouth once daily. fexofenadine (LATANYA ALLERGY) 180 mg tablet Take 1 tablet by mouth once daily. (Patient not taking: Reported on 03/09/2023) triamcinolone acetonide (NASACORT) 55 mcg nasal inhaler Use 2 Sprays in the nose once daily. for nasal drainage and congestion (Patient not taking: Reported on 02/21/2023) omeprazole (PRILOSEC) 40 mg capsule Take 1 capsule by mouth twice daily. diclofenac (VOLTAREN ARTHRITIS PAIN) 1 % topical gel Apply 2 g to affected area four times daily. Use as needed (Patient not taking: Reported on 03/09/2023) Lactobac no.41/Bifidobact no.7 (PROBIOTIC-10 ORAL) Take by mouth. (Patient not taking: Reported on 03/09/2023) albuterol (PROVENTIL) 2.5 mg /3 mL (0.083 %) nebulizer solution Use 3 mL via nebulizer every 4 hours as needed for Wheezing/Shortness of Breath. Use over 5-15minutes. Nebulizer Accessories kit Use with home nebulizer for albuterol doxycycline (VIBRA-TABS) 100 mg tablet Take 1 tablet by mouth twice daily. Extend antibiotic if notresolved with 10 day course (Patient not taking: Reported on 03/09/2023) alcohol swabs Apply 1 application to affected area as needed. Lancing Device misc 1 Each four times daily. Test blood sugar(s) 4 times daily. Dx: Type 2 DM - Uncontrolled E11.65 Insulin: Yes Send to pt what ever meter and supplies are covered. albuterol HFA (PROVENTIL HFA, VENTOLIN HFA) 90 mcg/actuation inhaler INHALE 2 PUFFS BY MOUTH EVERY FOUR HOURS NEEDED FOR SHORTNESS OF BREATH AND WHEEZING oxybutynin ER (DITROPAN XL) 10 mg 24 hr tablet Take 10 mg by mouth once daily. (Patient not taking:Reported on 02/21/2023) polyethylene glycol 3350 (MIRALAX) 17 gram/dose powder Take 17 g by mouth once daily. No current facility-administered medications for this visit. Allergies As of Date: 07/02/2024 Allergen Noted Reaction CODEINE 05/30/2012 Mental Status Change PENICILLINS 05/30/2012 Swelling SULFUR 05/30/2012 Swelling BENADRYL ALLERGY DECONGESTANT 05/27/2018 Other: See Comments REGLAN [METOCLOPRAMIDE HCL] 10/20/2014 Other: See Comments ROSUVASTATIN 02/28/2020 Myalgia TYLENOL [ACETAMINOPHEN] 10/14/2014 GI Upset Fully Assessed 09/26/2023 REVIEW OF SYSTEMS Abdomen: No bloating, early satiety, indigestion, or increased flatulence. No abdominal pain, nausea, vomiting, diarrhea, or constipation. Bladder: No dysuria, gross hematuria, urinary frequency, urinary urgency Breast: No breast lumps, nipple d/c, overlying skin changes, redness or skin retraction. Expanded ROS: N/A Allergies and current medication updated:Yes SENSITIVE EXAM: The sensitive examination was discussed with the Patient or Patient's Authorized Director Of Adult Epilepsy. As applicable, any other physician, advance practice provider, medical student, or other health professional student that will be observing or involved in the sensitive examination for educational or training purposes was discussed with the Patient or Authorized Director Of Adult Epilepsy. The Patient or Authorized Director Of Adult Epilepsy has agreed to proceed with the sensitive examination. (Sensitive examination includes inspection and/or palpation of the breasts, pelvis, prostate and anorectal regions). EXAM: There were no vitals taken for this visit. GENERAL: pleasant, female in no apparent distress HEENT: Normocephalic, atraumatic, mucus membranes moist, and no lesions NECK: Supple, full range of motion, no adenopathy, and thyroid normal DERMATOLOGY: Normal, without lesions, non-icteric, and non-hirsute BREAST: deferred CHEST: Normal inspiratory effort ABDOMEN: Deferred PELVIC: normal Bartholin's glands, urethra, Leando's glands, no cervical lesions, physiologic discharge present, normal appearing perineal body and perianal region, mild erythema to introitus. Small amount of white discharge. No bleeding. BIMANUAL: uterus normal size, shape and consistency, no adnexal masses, non- tender, and mild to moderate cystocele NEURO: alert and oriented x3,exam grossly non-focal EXTREMITIES: normal ASSESSMENT AND PLAN: Assessment & Plan Vaginal itching Clobetasol gel Cystocele, midline Orders: CONSULT TO URO GYNECOLOGY; Future Mae Raya MD documented in this [facility] note* Diagnosis Onset Date Resolution Status Admit Date Lumbar scoliosis acute May 14, 2024 3:13pm Osteopenia determined by x-ray acute May 14, 2024 3:13pm Other intervertebral disc degeneration, lumbar region with discogenic back acute May 142023 3:13pm Nausea acute June 13, 2 025 2:47pm Bloating chronic June 13, 2 025 2:47pm Constipation chronic June 13, 2024 2:47pm Pancreatitis inactive June 13, 2024 2:47pm Dysphagia acute August 09 1:18pm Osteoporosis acute September 02, 2024 1:03pm Chronic fatigue chronic August 1:03pm Diabetes chronic September 02 1:03pm Essential (primary) hypertension chronic September 02, 2024 1:03pm Hyperlipidemia chronic August 1:03pm Obesity chronic September 02 1:03pm [facility] Work Phone: 1(556) 513-869711-19-2024 Evaluation note* Diagnosis Onset Date Resolution Status Admit Date Essential (primary) hypertension chronic April 23, 2 024 2:42pm Fatigue chronic April 23, 2024 2:42pm Hyperlipidemia chronic April 052023 2:42pm H/O coronary artery bypass surgery May 30, 2018 resolved April 2:42pm Lumbar scoliosis acute May 14, 2024 3:13pm Osteopenia determined by x-ray acute May 14, 2 024 3:13pm Other intervertebral disc degeneration, lumbar region with discogenic back acute May 14, 2 024 3:13pm Nausea acute June 13, 2 025 2:47pm Bloating chronic June 13, 2 025 2:47pm Constipation chronic June 13, 2024 2:47pm Pancreatitis inactive June 13, 2024 2:47pm Dysphagia acute August 09 1:18pm [facility] Work Phone: 1(208) 968-828104-23-2024 NoteHNO ID: [id number] Author: AGUSTINA HIRSCH MD Service: ? Author Type: Physician Type: Progress Notes Filed: 09/26/2023 15:45 Note Text: [employer] 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 Layla Higuera is a 73 year old female who presents for problem visit. HPI: Patient presents with vulvar irritation for 1 year. She reports taking florajens. She changes a pull up about 3 times per day. She is not using any creams currently. Also she has been told that she has prolapse. 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 CAD (coronary artery disease) COPD (chronic obstructive pulmonary disease) ([facility]) 03/18/2013 Stage 0. Normal FEV1 03/2013. Diabetes mellitus type II DVT (deep venous thrombosis) ([facility]) 09/2014 during hospitalization for CVA, bilateral legs and head Dysphagia due to recent stroke 09/2014 GERD (gastroesophageal reflux disease) Hyperlipidemia Hypertension Migraines NSTEMI (non-ST elevated myocardial infarction) (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 Stroke ([facility]) SUMMARY 10/14/2014 Ms Layla Higuera is a 64 year old with a PMH of HTN, DM2, COPD, CVA presenting with bilateral chest pain Weakness left sided 2nd to cva PAST SURGICAL HISTORY Procedure Laterality Date CABG (3) VEIN GRAFTS AND ARTERIAL GRAFT(S) 05/30/2018 CAROTID ENDARTERECTOMY Right 2014 COLONOSCOPY 09/2012 ESOPHAGOGASTRODUODENOSCOPY TRANSORAL DIAGNOSTIC 09/2012 EGD PAST SURGICAL HISTORY OF 1974 explority of fallopian tubes PAST SURGICAL HISTORY OF 1998 cervical sterum SEPTOPLASTY 1998 FAMILY HISTORY Problem Relation Age of Onset Diabetes Mother Colon Cancer Mother Heart disease Father Diabetes Brother other (CABG) Brother other (esophageal cancer) Brother Asthma No Family History COPD No Family History Intersitial Lung Disease No Family History Social History Tobacco Use Smoking status: Former Packs/day: 1.00 Years: 40.00 Additional pack years: 0.00 Total pack years: 40.00 Types: Cigarettes Quit date: 09/04/2014 Years since quittin.0 Smokeless tobacco: Never Tobacco comments: Father smoked in childhood home. Vaping Use Vaping Use: Never used Substance Use Topics Alcohol use: No Drug use: No Current Outpatient Medications Medication Sig STIOLTO RESPIMAT 2.5-2.5 mcg/actuation inhale 2 puffs by mouth daily levocetirizine 5 mg tablet 5 mg. lisinopril (ZESTRIL) 5 mg tablet 5 mg. calcium carbonate (OS-STEPHANIE 500) 500 mg calcium (1,250 mg) tablet citalopram (CELEXA) 20 mg tablet famotidine (PEPCID) 40 mg tablet insulin needles, DISPOSABLE, (PEN NEEDLE) 31 gauge x 5/16 Use one needle per dose. 4 per day. blood sugar diagnostic (BLOOD GLUCOSE TEST) test strip Test blood sugar(s) 4 times daily. Dx: Type 2 DM - Uncontrolled E11.65 Insulin: Yes.Send to pt whatever meter and supplies are covered. Lancets lancets Test blood sugar(s) 4 times daily. Dx: Type 2 DM - Uncontrolled E11.65 Insulin: Yes Send to pt what ever meter and supplies are covered. docusate sodium (COLACE) 100 mg capsule Take 1 capsule by mouth twice daily. insulin glargine (LANTUS SOLOSTAR, BASAGLAR KWIKPEN) 100 unit/mL (3 mL) Inject 30 Units subcutaneously daily at bedtime. Adjust dose as directed insulin aspart U-100 (NOVOLOG FLEXPEN U-100 INSULIN) 100 unit/mL (3 mL) Inject 10 Units subcutaneously three times daily before meals. If Blood Glucose (mg/dL) is: Less than 110 Give 0 units 111-150 Give 0 units 151-200 Give 1 unit 201-250 Give 2 units 251-300 Give 3 units 301-350 Give 4 units 351-400 Give 5 units Greater than 400 Give 5 units and Notify Provider Notify provider if 2 consecutive blood glucose values in the previous 24 hours are greater than 250 mg/mL and there have been no changes to the insulin regimen in the previous 24 hours. metoprolol tartrate, short acting, (LOPRESSOR) 25 mg tablet Take 0.5 tablets by mouth every 12 hours. amLODIPine (NORVASC) 5 mg tablet Take 5 mg by mouth once daily. omeprazole (PRILOSEC) 40 mg capsule Take 1 capsule by mouth twice daily. Nebulizer Accessories kit Use with home nebulizer for albuterol alcohol swabs Apply 1 application to affected area as needed. Lancing Device misc 1 Each four times daily. Test blood sugar(s) 4 times daily. Dx: Type 2 DM - Uncontrolled E11.65 Insulin: Yes Send to pt what ever meter and supplies are covered. albuterol HFA (PROVENTIL HFA, VENTOLIN HFA) 90 mcg/actuation inhaler INHALE 2 PUFFS BY MOUTH EVERY FOUR HOURS NEEDED FOR SHORTNESS OF BREATH AND WHEEZING polyethylene glycol 3350 (MIRALAX) 17 gram/dose powder Take 17 g by mouth once luisito (more content not included)...[facility]04-23-2024 History of Present illness Narrative* Agustina Hirsch MD - 09/26/2023 2:48 PM EDT 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 Layla Higuera is a 73 year old female who presents for problem visit. HPI: Patient presents with vulvar irritation for 1 year. She reports taking florajens. She changes a pull up about 3 times per day. She is not using any creams currently. Also she has been told that she has prolapse. 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 CAD (coronary artery disease) COPD (chronic obstructive pulmonary disease) ([facility]) 03/18/2013 Stage 0. Normal FEV1 03/2013. Diabetes mellitus type II DVT (deep venous thrombosis) ([facility]) 09/2014 during hospitalization for CVA, bilateral legs and head Dysphagia due to recent stroke 09/2014 GERD (gastroesophageal reflux disease) Hyperlipidemia Hypertension Migraines NSTEMI (non-ST elevated myocardial infarction) (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 Stroke ([facility]) SUMMARY 10/14/2014 Ms Layla Higuera is a 64 year old with a PMH of HTN, DM2, COPD, CVA presenting with bilateral chest pain Weakness left sided 2nd to cva PAST SURGICAL HISTORY Procedure Laterality Date CABG (3) VEIN GRAFTS & ARTERIAL GRAFT(S) 05/30/2018 CAROTID ENDARTERECTOMY Right 2015 COLONOSCOPY 09/2012 ESOPHAGOGASTRODUODENOSCOPY TRANSORAL DIAGNOSTIC 09/2012 EGD PAST SURGICAL HISTORY OF 1974 explority of fallopian tubes PAST SURGICAL HISTORY OF 1998 cervical sterum SEPTOPLASTY 1998 FAMILY HISTORY Problem Relation Age of Onset Diabetes Mother Colon Cancer Mother Heart disease Father Diabetes Brother other (CABG) Brother other (esophageal cancer) Brother Asthma No Family History COPD No Family History Intersitial Lung Disease No Family History Social History Tobacco Use Smoking status: Former Packs/day: 1.00 Years: 40.00 Additional pack years: 0.00 Total pack years: 40.00 Types: Cigarettes Quit date: 09/04/2014 Years since quittin.0 Smokeless tobacco: Never Tobacco comments: Father smoked in childhood home. Vaping Use Vaping Use: Never used Substance Use Topics Alcohol use: No Drug use: No Current Outpatient Medications Medication Sig STIOLTO RESPIMAT 2.5-2.5 mcg/actuation inhale 2 puffs by mouth daily levocetirizine 5 mg tablet 5 mg. lisinopril (ZESTRIL) 5 mg tablet 5 mg. calcium carbonate (OS-STEPHANIE 500) 500 mg calcium (1,250 mg) tablet citalopram (CELEXA) 20 mg tablet famotidine (PEPCID) 40 mg tablet insulin needles, DISPOSABLE, (PEN NEEDLE) 31 gauge x 5/16 Use one needle per dose. 4 per day. blood sugar diagnostic (BLOOD GLUCOSE TEST) test strip Test blood sugar(s) 4 times daily. Dx: Type 2 DM - Uncontrolled E11.65 Insulin: Yes.Send to pt whatever meter and supplies are covered. Lancets lancets Test blood sugar(s) 4 times daily. Dx: Type 2 DM - Uncontrolled E11.65 Insulin: YesSend to pt what ever meter and supplies are covered. docusate sodium (COLACE) 100 mg capsule Take 1 capsule by mouth twice daily. insulin glargine (LANTUS SOLOSTAR, BASAGLAR HERNANDEZIKPEN) 100 unit/mL (3 mL) Inject 30 Units subcutaneously daily at bedtime. Adjust dose as directed insulin aspart U-100 (NOVOLOG FLEXPEN U-100 INSULIN) 100 unit/mL (3 mL) Inject 10 Units subcutaneously three times daily before meals. If Blood Glucose (mg/dL) is: Less than 110 Give 0 units 111-150 Give 0 units 151-200 Give 1 unit 201-250 Give 2 units 251-300 Give 3 units 301-350 Give 4 units 351-400 Give 5 units Greater than 400 Give 5 units and Notify Provider Notify provider if 2 consecutive blood glucose values in the previous 24 hours are greater than 250 mg/mL and there have been no changes to the insulin regimen in the previous 24 hours. metoprolol tartrate, short acting, (LOPRESSOR) 25 mg tablet Take 0.5 tablets by mouth every 12 hours. amLODIPine (NORVASC) 5 mg tablet Take 5 mg by mouth once daily. omeprazole (PRILOSEC) 40 mg capsule Take 1 capsule by mouth twice daily. Nebulizer Accessories kit Use with home nebulizer for albuterol alcohol swabs Apply 1 application to affected area as needed. Lancing Device misc 1 Each four times daily. Test blood sugar(s) 4 times daily. Dx: Type 2 DM - Uncontrolled E11.65 Insulin: Yes Send to pt what ever meter and supplies are covered. albuterol HFA (PROVENTIL HFA, VENTOLIN HFA) 90 mcg/actuation inhaler INHALE 2 PUFFS BY MOUTH EVERY FOUR HOURS NEEDED FOR SHORTNESS OF BREATH AND WHEEZING polyethylene glycol 3350 (MIRALAX) 17 gram/dose powder Take 17 g by mouth once daily. tiotropium bromide (SPIRIVA RESPIMAT) 2.5 mcg/actuation inhaler Inhale 2 Puffs as instructed once daily. (Patient not taking: Reported on 03/09/2023) rosuvastatin (CRESTOR) 40 mg tablet (Patient not taking: Reported on 03/14/2023) umeclidinium (INCRUSE ELLIPTA) 62.5 mcg/actuation inhaler Inhale 1 Puff as instructed once daily. (Patient not taking: Reported on 03/09/2023) pravastatin (PRAVACHOL) 40 mg tablet Take 1 tablet by mouth daily at bedtime. (Patient not taking: Reported on 02/21/2023) aspirin, enteric coated (ASPIRIN, ENTERIC COATED) 81 mg EC tablet Take 1 tablet by mouth once daily. Cholecalciferol, Vitamin D3, 25 mcg (1,000 unit) chew Take 3 tablets by mouth once daily. (Patient not taking: Reported on 03/09/2023) cyclobenzaprine (FLEXERIL) 10 mg tablet Take 1 tablet by mouth twice daily as needed for muscle spasm. (Patient not taking: Reported on 03/09/2023) cyanocobalamin (VITAMIN B-12) 1,000 mcg tab Take 1 tablet by mouth once daily. (Patient not taking:Reported on 03/09/2023) clopidogrel (PLAVIX) 75 mg tablet Take 1 tablet by mouth once daily. (Patient not taking: Reported on 02/21/2023) ondansetron (ZOFRAN) 4 mg tablet Take 1 tablet by mouth every 8 hours as needed. (Patient not taking: Reported on 03/09/2023) fexofenadine (LATANYA ALLERGY) 180 mg tablet Take 1 tablet by mouth once daily. (Patient not taking: Reported on 03/09/2023) triamcinolone acetonide (NASACORT) 55 mcg nasal inhaler Use 2 Sprays in the nose once daily. for nasal drainage and congestion (Patient not taking: Reported on 02/21/2023) diclofenac (VOLTAREN ARTHRITIS PAIN) 1 % topical gel Apply 2 g to affected area four times daily. Use as needed (Patient not taking: Reported on 03/09/2023) Lactobac no.41/Bifidobact no.7 (PROBIOTIC-10 ORAL) Take by mouth. (Patient not taking: Reported on 03/09/2023) albuterol (PROVENTIL) 2.5 mg /3 mL (0.083 %) nebulizer solution Use 3 mL via nebulizer every 4 hours as needed for Wheezing/Shortness of Breath. Use over 5-15minutes. doxycycline (VIBRA-TABS) 100 mg tablet Take 1 tablet by mouth twice daily. Extend antibiotic if notresolved with 10 day course (Patient not taking: Reported on 03/09/2023) oxybutynin ER (DITROPAN XL) 10 mg 24 hr tablet Take 10 mg by mouth once daily. (Patient not taking:Reported on 02/21/2023) No current facility-administered medications for this visit. Allergies As of Date: 09/26/2023 Allergen Noted Reaction CODEINE 05/30/2012 Mental Status Change PENICILLINS 05/30/2012 Swelling SULFUR 05/30/2012 Swelling BENADRYL ALLERGY DECONGESTANT 05/27/2018 Other: See Comments REGLAN [METOCLOPRAMIDE HCL] 10/20/2014 Other: See Comments ROSUVASTATIN 02/28/2020 Myalgia TYLENOL [ACETAMINOPHEN] 10/14/2014 GI Upset Fully Assessed 09/26/2023 Allergies and current medication updated:Yes EXAM: BP 102/64 Wt 173 lb 3.2 oz (78.6kg) GENERAL: pleasant, female in no apparent distress PELVIC: external genitalia normal, no vulvar lesions, no cervical lesions BIMANUAL: uterus normal size, shape and consistency, no adnexal masses, and non- tender; exam limited by obesity ASSESSMENT AND PLAN: 73yo female with vulvar dermatitis and cystocele Recommend kenlog ointment for 2 weeks and then A&D ointment as a barrier. Cystocele - consult to urogyn if becomes bothersome Medical Decision Making: Problems: Low: Acute, uncomplicated illness or injury Risk: Moderate: Drug management Medical Decision Making Level: 3 - Low Agustina Hirsch MD documented in this encounterFire[facility]11-13-[facility]23 Miscellaneous Notes* Telephone Encounter - May Baird APRN.CNP - 04/17/2023 4:38 PM EST Called patient regarding recent low dose CT scan results and plan of care. Category 2- Pt to return to lung cancer screening in 1 year. All questions answered and the patient is comfortable with the plan. May Baird APRN.CNP documented in this encounterFirelands [facility]11-10-2023 Miscellaneous Notes* Telephone Encounter - May Baird APRN.CNP - 04/14/2023 10:19 AM EST Called patient regarding recent low dose CT scan results and plan of care. Category 2- Pt to return to lung cancer screening in 1 year. No answer and unable to leave a message due to no voicemail being set up. May Baird APRN.CNP documented in this encounterFirelands [facility]11-09-2023 History of Present illness Narrative* Shirley Quintana RT(R) - 04/13/2023 1:40 PM EST Radiology Service Progress Note PATIENT NAME: Layla Higuera DATE OF SERVICE: April 13, 2023 TIME: 4:12 PM PATIENT IDENTITY VERIFICATION COMPLETED USING TWO (2) IDENTIFIERS: Name and Date of confirmedby patient verbally. FALL SCREENING: Has the patient had 2 falls in the last year or 1 fall with injury or currently using an Ambulatory Assistive Device (Walker, Cane, Wheelchair, Crutches, etc.)? No PATIENT GENDER DATA: Female. status: : No status: NO. PATIENT RELEVANT IMPLANT DATA REVIEWED: Yes RADIOLOGY DEPARTMENT: CT; Exam(s) Completed: Chest PERIPHERAL IV DATA: Not applicable SIGNED BY: RT Fara(R) April 13, 2023 4:12 PM documented in this encounterFirelands [facility]10-10-2023 Instructions* Patient Instructions* Kanika Del Cid APRN.CNP - 03/14/2023 10:[address] Lung Screen Results The CT scan that you will have done will show if you have any nodules (small spots) in your lungs that are suspicious for cancer. Around 90% of the patients who have this scan done are found to have at least one nodule. Most nodules are benign (not cancer) and of no harm to you at all. A specialistwill make a scientific evaluation about whether or not a nodule is worrisome based on its size and shape. The radiologist who will read your scan will put it into one of four categories: LUNG-RADS Category Description Overall Probability of Malignancy Recommended Follow-Up 1 Negative No nodules and definitely benign (non-cancerous nodules) Essentially 0. 1 Year - Follow-up Low dose CT 2 Benign Appearance or Behavior Nodules with a very low likelihood of becoming cancer due to size or lack of growth Less than 1% 1 Year - Follow-up Low dose CT 3 Probably Benign Probably benign finding, short term follow-up recommended 1 to 2% 6 Months - Follow-up CT 4 A,B,or X Suspicious Findings for which additional diagnostic testing and/or biopsy is recommended Will be calculated based on nodule characteristics. Dependent on what is seen on the exam. [address], PET, Biopsy At times, we may see something outside of the lungs on the scan that could be a health concern. Below are some of the most common findings: S Clinically Significant or Potentially Clinically Significant Findings (non lung cancer) Referral or additional imaging/labs depending on result. Approximately 10% of people receive this result. Coronary Artery Calcifications (Moderate or Severe) - Referral to cardiology or PCP for further work-up and recommendations. Thyroid Nodule - TSH level and Thyroid Ultrasound dependent on size, referral to endocrinology. Adrenal Nodule - Blood work and referral to endocrinology. Others Lung Cancer Screening hotline: [phone] Lung Cancer Screening [phone] Billing Questions: or [email or web address] Lung Cancer Screening Team: Inés Patel CNP; Lety Cervantes PA-C; Shirley Beltre CNP; Karly Kent CNP, Verena Villanueva PA-C, Linda Arriaga PA-C, Kanika Del Cid, [employer] MANAGER : [phone] documented in this encounterFirelands [facility]10-10-2023 History of Present illness Narrative* Kanika Del Cid APRN.CNP - 03/14/2023 10:08 AM EDT Images from the original note were not included. LUNG SCREENING VISIT PRIMARY CARE PHYSICIAN: Taras Green MD PULMONARY PROVIDER: Dr. Renato Baird Results will be communicated via letter or electronic record if applicable. Visit Delivery: In Person Patient Visit Type: New to Screening Current or Ex-smoker?ex smoker Exam Type: baseline LDCT Number of Pack Years: 43 Current smoker (=0) or Number of Years since Quit: 8 REQUESTER: The referring provider advised the patient to have screening. HISTORY OF PRESENT ILLNESS: Layla Higuera is a 72 year old Former smoker who presents for lung screening. 2015 had x 2 strokes, had aspiration pneumonia. Having workup for bloating-had colonoscopy. Has upper abdominal pain and left sided lower abdominalpain. Respiratory symptoms include: SOB: Yes, sometimes walking too fast, bending over, carrying groceries sometimes Chest tightness: No Coughing: Yes: With mucus Yellow, sinus drainage seeing ENT, choking spells at night Hemoptysis: No Wheezing: Yes, sometimes with eating Fever/Chills: No Recent Respiratory Infection: No Unintentional weight loss: No Last 6 Encounter Wt Readings: Date: Wt: 03/14/2023 77.6 kg (171 lb) 02/21/2023 75.3 kg (166 lb) 02/21/2023 75.3 kg (166 lb) 06/29/2021 72.8 kg (160 lb 9.6 oz) 11/25/2020 76.7 kg (169 lb) 10/26/2020 76.5 kg (168 lb 9.6 oz) ECOG PERFORMANCE STATUS: 2- Ambulatory and capable of all selfcare; unable to carry out work activities. Up and about > 50% of waking hrs. Modified [employer] [place] Dyspnea Scale (MMRC) On level ground I walk slower than people of the same age because of breathlessness, or have to stop for breath when walking at my own pace 2 PAST MEDICAL HISTORY Diagnosis Date Aortic sclerosis Aspiration pneumonia (HCC) Following CVA. CAD (coronary artery disease) COPD (chronic obstructive pulmonary disease) ([facility]) 03/18/2013 Stage 0. Normal FEV1 03/2013. Diabetes mellitus type II DVT (deep venous thrombosis) ([facility]) 09/2014 during hospitalization for CVA, bilateral legs and head Dysphagia due to recent stroke 09/2014 GERD (gastroesophageal reflux disease) Hyperlipidemia Hypertension Migraines NSTEMI (non-ST elevated myocardial infarction) (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 Stroke ([facility]) SUMMARY 10/14/2014 Ms Layla Higuera is a 64 year old with a PMH of HTN, DM2, COPD, CVA presenting with bilateral chest pain Weakness left sided 2nd to cva PAST SURGICAL HISTORY Procedure Laterality Date CABG (3) VEIN GRAFTS & ARTERIAL GRAFT(S) 05/30/2018 CAROTID ENDARTERECTOMY Right 2015 COLONOSCOPY 09/2012 ESOPHAGOGASTRODUODENOSCOPY TRANSORAL DIAGNOSTIC 09/2012 EGD PAST SURGICAL HISTORY OF 1974 explority of fallopian tubes PAST SURGICAL HISTORY OF 1998 cervical sterum SEPTOPLASTY 1998 FAMILY HISTORY Problem Relation Age of Onset Diabetes Mother Colon Cancer Mother Heart disease Father Diabetes Brother other (CABG) Brother other (esophageal cancer) Brother Asthma No Family History COPD No Family History Intersitial Lung Disease No Family History levocetirizine 5 mg tablet 5 mg. lisinopril (ZESTRIL) 5 mg tablet 5 mg. citalopram (CELEXA) 20 mg tablet famotidine (PEPCID) 40 mg tablet aspirin, enteric coated (ASPIRIN, ENTERIC COATED) 81 mg EC tablet Take 1 tablet by mouth once daily. docusate sodium (COLACE) 100 mg capsule Take 1 capsule by mouth twice daily. insulin glargine (LANTUS SOLOSTAR, BASAGLAR KWIKPEN) 100 unit/mL (3 mL) Inject 30 Units subcutaneously daily at bedtime. Adjust dose as directed insulin aspart U-100 (NOVOLOG FLEXPEN U-100 INSULIN) 100 unit/mL (3 mL) Inject 10 Units subcutaneously three times daily before meals. If Blood Glucose (mg/dL) is: Less than 110 Give 0 units 111-150 Give 0 units 151-200 Give 1 unit 201-250 Give 2 units 251-300 Give 3 units 301-350 Give 4 units 351-400 Give 5 units Greater than 400 Give 5 units and Notify Provider Notify provider if 2 consecutive blood glucose values in the previous 24 hours are greater than 250 mg/mL and there have been no changes to the insulin regimen in the previous 24 hours. metoprolol tartrate, short acting, (LOPRESSOR) 25 mg tablet Take 0.5 tablets by mouth every 12 hours. amLODIPine (NORVASC) 5 mg tablet Take 5 mg by mouth once daily. omeprazole (PRILOSEC) 40 mg capsule Take 1 capsule by mouth twice daily. albuterol HFA (PROVENTIL HFA, VENTOLIN HFA) 90 mcg/actuation inhaler INHALE 2 PUFFS BY MOUTH EVERY FOUR HOURS NEEDED FOR SHORTNESS OF BREATH AND WHEEZING tiotropium bromide (SPIRIVA RESPIMAT) 2.5 mcg/actuation inhaler Inhale 2 Puffs as instructed once daily. (Patient not taking: Reported on 03/09/2023) tiotropium-olodaterol (STIOLTO RESPIMAT) 2.5-2.5 mcg/actuation Inhale 2 Puffs as instructed once daily. (Patient not taking: Reported on 03/09/2023) calcium carbonate (OS-STEPHANIE 500) 500 mg calcium (1,250 mg) tablet rosuvastatin (CRESTOR) 40 mg tablet (Patient not taking: Reported on 03/14/2023) umeclidinium (INCRUSE ELLIPTA) 62.5 mcg/actuation inhaler Inhale 1 Puff as instructed once daily. (Patient not taking: Reported on 03/09/2023) pravastatin (PRAVACHOL) 40 mg tablet Take 1 tablet by mouth daily at bedtime. (Patient not taking: Reported on 02/21/2023) insulin needles, DISPOSABLE, (PEN NEEDLE) 31 gauge x 5/16 Use one needle per dose. 4 per day. blood sugar diagnostic (BLOOD GLUCOSE TEST) test strip Test blood sugar(s) 4 times daily. Dx: Type 2 DM - Uncontrolled E11.65 Insulin: Yes.Send to pt whatever meter and supplies are covered. Lancets lancets Test blood sugar(s) 4 times daily. Dx: Type 2 DM - Uncontrolled E11.65 Insulin: YesSend to pt what ever meter and supplies are covered. Cholecalciferol, Vitamin D3, 25 mcg (1,000 unit) chew Take 3 tablets by mouth once daily. (Patient not taking: Reported on 03/09/2023) cyclobenzaprine (FLEXERIL) 10 mg tablet Take 1 tablet by mouth twice daily as needed for muscle spasm. (Patient not taking: Reported on 03/09/2023) cyanocobalamin (VITAMIN B-12) 1,000 mcg tab Take 1 tablet by mouth once daily. (Patient not taking:Reported on 03/09/2023) clopidogrel (PLAVIX) 75 mg tablet Take 1 tablet by mouth once daily. (Patient not taking: Reported on 02/21/2023) ondansetron (ZOFRAN) 4 mg tablet Take 1 tablet by mouth every 8 hours as needed. (Patient not taking: Reported on 03/09/2023) fexofenadine (LATANYA ALLERGY) 180 mg tablet Take 1 tablet by mouth once daily. (Patient not taking: Reported on 03/09/2023) triamcinolone acetonide (NASACORT) 55 mcg nasal inhaler Use 2 Sprays in the nose once daily. for nasal drainage and congestion (Patient not taking: Reported on 02/21/2023) diclofenac (VOLTAREN ARTHRITIS PAIN) 1 % topical gel Apply 2 g to affected area four times daily. Use as needed (Patient not taking: Reported on 03/09/2023) Lactobac no.41/Bifidobact no.7 (PROBIOTIC-10 ORAL) Take by mouth. (Patient not taking: Reported on 03/09/2023) albuterol (PROVENTIL) 2.5 mg /3 mL (0.083 %) nebulizer solution Use 3 mL via nebulizer every 4 hours as needed for Wheezing/Shortness of Breath. Use over 5-15minutes. Nebulizer Accessories kit Use with home nebulizer for albuterol doxycycline (VIBRA-TABS) 100 mg tablet Take 1 tablet by mouth twice daily. Extend antibiotic if notresolved with 10 day course (Patient not taking: Reported on 03/09/2023) alcohol swabs Apply 1 application to affected area as needed. Lancing Device misc 1 Each four times daily. Test blood sugar(s) 4 times daily. Dx: Type 2 DM - Uncontrolled E11.65 Insulin: Yes Send to pt what ever meter and supplies are covered. oxybutynin ER (DITROPAN XL) 10 mg 24 hr tablet Take 10 mg by mouth once daily. (Patient not taking:Reported on 02/21/2023) polyethylene glycol 3350 (MIRALAX) 17 gram/dose powder Take 17 g by mouth once daily. ALLERGIES Allergen Reactions Codeine Mental Status Change I was really trippin. Penicillins Swelling Swelling of lips. Sulfur Swelling Swelling of lips. Benadryl Allergy De* Other: See Comments I feel really weird Reglan [Metoclopram* Other: See Comments Rosuvastatin Myalgia Tylenol [Acetaminop* GI Upset The medications and allergies were reviewed and reconciled for this patient and deemed current. Lung Cancer Risk Factors: 1.Tobacco Use: Start Age 21, Quit Age: 64, Average packs per day 1, Pack Years 42 2. Passive Smoke Exposure: Yes, as a Child and as an Adult 3. Personal hx of malignancy: No, Type of Cancer: 4. 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 Race: White 6. Education: High School Graduate 7. BMI:Body mass index is 35.41 kg/m . Patient-entered Height: 4'10 Patient-entered Weight: 171 pounds 8. COPD: Yes 9. Pneumonia in the past 5 years: Yes 10. Is there a history of lung cancer in a first degree relative? No 11. Is there a history of lung cancer in a non-first degree relative? No 12. Is there a history of any other cancer in a first degree relative? Yes Health Maintenance Immunization History Administered Date(s) Administered COVID-19 vaccine ([place]) 02/17/2021 COVID-19 vaccine, age 12+ yr, bivalent (MODERNA) 09/27/2022 pneumococcal (PCV13) vaccine, 13 valent (PREVNAR 13) 09/03/2014 pneumococcal (PPV23) vaccine, 23 valent (PNEUMOVAX 23) 04/14/2016 Colonoscopy: 09/25/2012 Mammogram: DATA REVIEW I have directly visualized the testing documented: 01/25/2019 CT Chest Prior Imaging: Last CT/CTA Chest/Lungs CT CHEST W IVCON Exam End: 01/25/2019 9:42 PM (Final result) Narrative: * * *Final Report* * * DATE OF EXAM: Jan 25 2019 9:42PM [facility] [facility] [place] CHEST W IVCON / PROCEDURE REASON: Shortness of breath * * * * Physician Interpretation * * * * EXAMINATION: CHEST CT WITH CONTRAST CLINICAL HISTORY: Shortness of breath Technique: Spiral CT acquisition of the chest from the thoracic inlet to the upper abdomen following IV contrast. MQ: CTCWR_5 Contrast: 50 mL Omnipaque [address] Dose-Length Product: 637 mGy*cm CT Dose Reduction Employed: Automated exposure control (AEC) Comparison: 10/14/2014 RESULT: Limitations: None. Lines, tubes, and devices: None. Lung parenchyma and pleura: No consolidation, pleural effusion or pneumothorax. Central airways are patent. No suspicious pulmonary nodule is identified. Thoracic inlet, heart, and mediastinum: No lymphadenopathy in the axillary, mediastinal, or hilar regions. The thoracic aorta and main pulmonary artery are normal in caliber. The cardiac chambers are normal in size. Coronory artery atherosclerotic calcifications are noted, although the study is not optimized for coronary assessment. Atherosclerotic calcifications are present in the thoracic aorta. Prior CABG. No pericardial effusion or thickening. Bones and soft tissues: No acute osseous abnormality. Sternotomy wires. Chest wall is unremarkable. Upper abdomen: No acute abnormality in the imaged upper abdomen. Left renal cyst. Impression: IMPRESSION: No CT evidence of acute abnormality. No thoracic adenopathy. [employer] Caser: PSCB Transcribe Date/Time: Jan 25 2019 9:47P Dictated by : GLADYS OLMSTEAD MD This examination was interpreted and the report reviewed and electronically signed by: GLADYS OLMSTEAD MD on Jan 25 2019 9:59PM EST Last CT Chest - Impression Only CT CHEST W IVCON Exam End: 01/25/2019 9:42 PM (Final result) Impression: IMPRESSION: No CT evidence of acute abnormality. No thoracic adenopathy. ... Last XR Chest - Impression Only XR CHEST 2V FRONTAL/LAT Exam End: 01/25/2019 8:18 PM (Final result) Impression: IMPRESSION: Numerous small rounded densities with lucent centers are present in the right mid and lower lung field of unclear etiology. No focal consolidation or pleural effusion. Further evaluation with chest CT may BE considered. ... 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 DLCO-ATS/ERS acceptability and repeatability standards for DLCO met. IMPRESSION: Spirometry shows no large airway obstruction.The FVL show small airways obstruction. The diffusing capacity is normal. Electronically Signed On 02-21-2023 16:56:25 EDT by Gladys Baird MD ID: [id number] Name: LAYLA HIGUERA Race: White Ht: 58.27 in Wt: 166.00 lbs Age: 72 Gender: Female : 1950 Dx: COPD_ Smoking Hx: Non-smoker Doctor: GLADYS BAIRD Test Date: 02/21/2023 Site: Tech: Maci Herring PRE-BRONCH POST-BRONCH Pre LLN Pred ULN %Pred Post %Pred %Chg SPIROMETRY FVC (L) 1.94 1.47 2.09 2.74 92 FEV1 (L) 1.38 1.14 1.65 2.13 83 FEV1/FVC 0.71 0.66 0.80 0.91 89 PEF L/s (L/sec) 3.64 3.09 4.51 5.93 80 FEF50 (L/sec) 1.32 0.94 2.54 4.15 51 FIF50 (L/sec) 2.70 FEF50/FIF50 0.49 90-100 FIVC (L) 1.85 YPW06-60 (L/sec) 0.89 0.68 1.53 2.76 58 Time (sec) 8.27 FET PEF (sec) 0.10 GRACIELA (L) 0.06 Vol Extrap % (%) 3 LUNG DIFFUSION DLCOunc (ml/min/mmHg) 15.95 11.60 17.77 23.94 89 VA (L) 3.41 3.02 4.12 5.22 82 DLunc/VA (ml/min/mmHg/L) 4.68 3.18 4.49 5.81 104 BHT (sec) 9.94 IVC (L) 1.76 PHYSICAL EXAM: BP 112/64 Pulse 62 Resp 17 Wt 77.6 kg (171 lb) SpO2 95% BMI 35.41 kg/m Deferred ASSESSMENT and RECOMMENDATIONS: 1. Screening for lung cancer: Six year risk for lung cancer: 4.71% [email or web address] I have determined that the patient is eligible for a low dose CT based on age, absence of signs or symptoms of lung cancer, and total pack years: Yes. The patient and I engaged in shared decision making, including the use of one or more decision aids, to include benefits, harms, follow-up diagnostic testing, over-diagnosis, false positive rate, andtotal radiation exposure. The patient understands and feels comfortable with it: Yes. The patient was counseled on the importance of adherence to annual LDCT lung cancer screening, impact of comorbidities and ability or willingness to undergo diagnosis and treatment. The patient understands and feels comfortable with it:Yes. 2. Nicotine dependence: The patient was counseled on the importance of maintaining cigarette smoking abstinence - The patient is committed to remaining abstinent from tobacco. Kanika Del Cid APRN.CNP NPI #: March 14, 2023 10:13 AM documented in this encounterFirelands [facility]-05-[facility]23 History of Present illness Narrative* Jonathon Carpio MD - 03/09/2023 3:32 PM EDT Jonathon Carpio MD Department of Orthopaedics Orthopaedics [address] [facility] [address] Dept: [phone] Dept March 09, 2023 CHIEF COMPLAINT: New and Pain of the Right Hand (Bilateral hand pain/Xray today - 03/09/2023) and New and Pain of the Left Hand HPI SHe's been having trouble with both hands. Some mild numbness, difficulty gripping things on the left. Mild pain at times. Worse with activities. 2/10 pain. ASSESSMENT: G56.03 Bilateral carpal tunnel syndrome (primary encounter diagnosis) PLAN: Though she does have some basal joint oA, her history and exam are more consistent with having some carpal tunnel symtoms. I recommend a nerve test and we'll see her back after. FOLLOW UP INSTRUCTIONS: As above. OBJECTIVE: Ms. Layla Higuera is a pleasant 72 year old in no apparent distress. Gen:There were no vitals taken for this visit. nl development, non obese, no deformities ENT: Normocephalic, normal hearing, moist mucosa CV: Pulses:Radial= 2+ and symmetric, capillary refill < 2 secs, no peripheral edema/varicosities Skin: no rash, bruising or lesions. Good turgor. Psych: cooperative and appropriate, alert and oriented x 3, good mood and affect. Musculoskeletal: Cervical spine has supple range of motion and no tenderness to palpation, Spurling's sign negative.Shoulders and elbows have full range of motion. neg Tinel's over the cubital tunnel, no subluxationof ulnar nerve at the elbow with flexion. neg Tinel's over Guyon's canal. Inspection reveals no thenar atrophy. diminished sensation to light touch in the radial 3 digits. Sensation intact in the ulnar 2 digits with out intrinsic atrophy/weakness. Positive Tinel's at the wrist, Positive carpal tunnel compression testing on the right, greater than left. No locking or catching of the digits. No tenderness to palpation or masses noted in the forearm or hand. IMAGING: IMPRESSION: Mild to moderate degenerative changes. [employer] Caser: EDUARDO Transcribe Date/Time: Mar 12 2023 10:36A Dictated by : JANET JEWELL MD This examination was interpreted and the report reviewed and electronically signed by: JANET JEWELL MD on Mar 12 2023 10:37AM EST Results-Findings * * *Final Report* * * DATE OF EXAM: Mar 09 2023 3:32PM [facility] [id number] - XR HAND 3V PA/LAT/OBL JACQUELIN / PROCEDURE REASON: multiple diagnoses * * * * Physician Interpretation * * * * EXAMINATION: XR HAND 3V PA/LAT/OBL JACQUELIN HISTORY: Diffuse bilateral hand pain x 1 year that has increased over time. No injury. Bilateral hand pain Bilateral hand pain . TECHNIQUE: XR HAND 3V PA/LAT/OBL JACQUELIN Laterality: BILATERAL Number of different views (projections): 3 M: XB_1 COMPARISON: RESULT: Mild to moderate interphalangeal degenerative changes of the fingers and thumbs. Mild base of thumb and bilateral carpal degenerative changes. No acute fracture or dislocation. There are no bony erosions. Supporting Subjective Information Below: Past Medical History: PAST MEDICAL HISTORY Diagnosis Date Aortic sclerosis Aspiration pneumonia (HCC) Following CVA. CAD (coronary artery disease) COPD (chronic obstructive pulmonary disease) ([facility]) 03/18/2013 Stage 0. Normal FEV1 03/2013. Diabetes mellitus type II DVT (deep venous thrombosis) ([facility]) 09/2014 during hospitalization for CVA, bilateral legs and head Dysphagia due to recent stroke 09/2014 GERD (gastroesophageal reflux disease) Hyperlipidemia Hypertension Migraines NSTEMI (non-ST elevated myocardial infarction) (HCC) Obesity 03/07/2013 Osteopenia S/P CABG x 3 05/30/2018 [facility]. Stroke (HCC) SUMMARY 10/14/2014 Ms Layla Higuera is a 64 year old with a PMH of HTN, DM2, COPD, CVA presenting with bilateral chest pain Weakness left sided 2nd to cva Past Surgical History: PAST SURGICAL HISTORY Procedure Laterality Date CABG (3) VEIN GRAFTS & ARTERIAL GRAFT(S) 05/30/2018 CAROTID ENDARTERECTOMY Right 2015 COLONOSCOPY 09/2012 ESOPHAGOGASTRODUODENOSCOPY TRANSORAL DIAGNOSTIC 09/2012 EGD PAST SURGICAL HISTORY OF 1974 explority of fallopian tubes PAST SURGICAL HISTORY OF 1998 cervical sterum SEPTOPLASTY 1998 Family History: FAMILY HISTORY Problem Relation Age of Onset Diabetes Mother Colon Cancer Mother Heart disease Father Diabetes Brother other (CABG) Brother other (esophageal cancer) Brother Asthma No Family History COPD No Family History Intersitial Lung Disease No Family History Social History: Social History Tobacco Use Smoking status: Former Packs/day: 1.00 Years: 40.00 Additional pack years: 0.00 Total pack years: 40.00 Types: Cigarettes Quit date: 09/04/2014 Years since quittin.5 Smokeless tobacco: Never Tobacco comments: Father smoked in childhood home. Vaping Use Vaping Use: Never used Substance Use Topics Alcohol use: No Drug use: No Medications: Current Outpatient Medications Medication Sig levocetirizine 5 mg tablet 5 mg. lisinopril (ZESTRIL) 5 mg tablet 5 mg. calcium carbonate (OS-STEPHANIE 500) 500 mg calcium (1,250 mg) tablet citalopram (CELEXA) 20 mg tablet famotidine (PEPCID) 40 mg tablet rosuvastatin (CRESTOR) 40 mg tablet insulin needles, DISPOSABLE, (PEN NEEDLE) 31 gauge x 5/16 Use one needle per dose. 4 per day. blood sugar diagnostic (BLOOD GLUCOSE TEST) test strip Test blood sugar(s) 4 times daily. Dx: Type 2 DM - Uncontrolled E11.65 Insulin: Yes.Send to pt whatever meter and supplies are covered. Lancets lancets Test blood sugar(s) 4 times daily. Dx: Type 2 DM - Uncontrolled E11.65 Insulin: YesSend to pt what ever meter and supplies are covered. aspirin, enteric coated (ASPIRIN, ENTERIC COATED) 81 mg EC tablet Take 1 tablet by mouth once daily. docusate sodium (COLACE) 100 mg capsule Take 1 capsule by mouth twice daily. insulin glargine (LANTUS SOLOSTAR, BASAGLAR KWIKPEN) 100 unit/mL (3 mL) Inject 30 Units subcutaneously daily at bedtime. Adjust dose as directed insulin aspart U-100 (NOVOLOG FLEXPEN U-100 INSULIN) 100 unit/mL (3 mL) Inject 10 Units subcutaneously three times daily before meals. If Blood Glucose (mg/dL) is: Less than 110 Give 0 units 111-150 Give 0 units 151-200 Give 1 unit 201-250 Give 2 units 251-300 Give 3 units 301-350 Give 4 units 351-400 Give 5 units Greater than 400 Give 5 units and Notify Provider Notify provider if 2 consecutive blood glucose values in the previous 24 hours are greater than 250 mg/mL and there have been no changes to the insulin regimen in the previous 24 hours. metoprolol tartrate, short acting, (LOPRESSOR) 25 mg tablet Take 0.5 tablets by mouth every 12 hours. amLODIPine (NORVASC) 5 mg tablet Take 5 mg by mouth once daily. omeprazole (PRILOSEC) 40 mg capsule Take 1 capsule by mouth twice daily. albuterol (PROVENTIL) 2.5 mg /3 mL (0.083 %) nebulizer solution Use 3 mL via nebulizer every 4 hours as needed for Wheezing/Shortness of Breath. Use over 5-15minutes. Nebulizer Accessories kit Use with home nebulizer for albuterol alcohol swabs Apply 1 application to affected area as needed. Lancing Device misc 1 Each four times daily. Test blood sugar(s) 4 times daily. Dx: Type 2 DM - Uncontrolled E11.65 Insulin: Yes Send to pt what ever meter and supplies are covered. albuterol HFA (PROVENTIL HFA, VENTOLIN HFA) 90 mcg/actuation inhaler INHALE 2 PUFFS BY MOUTH EVERY FOUR HOURS NEEDED FOR SHORTNESS OF BREATH AND WHEEZING tiotropium bromide (SPIRIVA RESPIMAT) 2.5 mcg/actuation inhaler Inhale 2 Puffs as instructed once daily. (Patient not taking: Reported on 03/09/2023) tiotropium-olodaterol (STIOLTO RESPIMAT) 2.5-2.5 mcg/actuation Inhale 2 Puffs as instructed once daily. (Patient not taking: Reported on 03/09/2023) umeclidinium (INCRUSE ELLIPTA) 62.5 mcg/actuation inhaler Inhale 1 Puff as instructed once daily. (Patient not taking: Reported on 03/09/2023) pravastatin (PRAVACHOL) 40 mg tablet Take 1 tablet by mouth daily at bedtime. (Patient not taking: Reported on 02/21/2023) Cholecalciferol, Vitamin D3, 25 mcg (1,000 unit) chew Take 3 tablets by mouth once daily. (Patient not taking: Reported on 03/09/2023) cyclobenzaprine (FLEXERIL) 10 mg tablet Take 1 tablet by mouth twice daily as needed for muscle spasm. (Patient not taking: Reported on 03/09/2023) cyanocobalamin (VITAMIN B-12) 1,000 mcg tab Take 1 tablet by mouth once daily. (Patient not taking:Reported on 03/09/2023) clopidogrel (PLAVIX) 75 mg tablet Take 1 tablet by mouth once daily. (Patient not taking: Reported on 02/21/2023) ondansetron (ZOFRAN) 4 mg tablet Take 1 tablet by mouth every 8 hours as needed. (Patient not taking: Reported on 03/09/2023) fexofenadine (LATANYA ALLERGY) 180 mg tablet Take 1 tablet by mouth once daily. (Patient not taking: Reported on 03/09/2023) triamcinolone acetonide (NASACORT) 55 mcg nasal inhaler Use 2 Sprays in the nose once daily. for nasal drainage and congestion (Patient not taking: Reported on 02/21/2023) diclofenac (VOLTAREN ARTHRITIS PAIN) 1 % topical gel Apply 2 g to affected area four times daily. Use as needed (Patient not taking: Reported on 03/09/2023) Lactobac no.41/Bifidobact no.7 (PROBIOTIC-10 ORAL) Take by mouth. (Patient not taking: Reported on 03/09/2023) doxycycline (VIBRA-TABS) 100 mg tablet Take 1 tablet by mouth twice daily. Extend antibiotic if notresolved with 10 day course (Patient not taking: Reported on 03/09/2023) oxybutynin ER (DITROPAN XL) 10 mg 24 hr tablet Take 10 mg by mouth once daily. (Patient not taking:Reported on 02/21/2023) polyethylene glycol 3350 (MIRALAX) 17 gram/dose powder Take 17 g by mouth once daily. No current facility-administered medications for this visit. Allergies: Codeine, Penicillins, Sulfur, Benadryl Allergy Decongestant, Reglan [Metoclopramide Hcl], Rosuvastatin, and Tylenol [Acetaminophen] ROS: General (negative for fatigue, malaise, weight loss/gain) HEENT (negative for headache, earache, recent vision changes, sinus pain, sore throat) Respiratory (no recent shortness of breath, hemoptysis) CV (negative for chest tightness, palpitations) Musculoskeletal (see HPI) Psych (no depression, anxiety) Jonathon Carpio MD documented in this encounterFire[facility]10-05-2023 History of Present illness Narrative* Radha Cabrera RT(R) - 03/09/2023 3:30 PM EDT Radiology Service Progress Note PATIENT NAME: Layla Higuera DATE OF SERVICE: March 09, 2023 TIME: 3:24 PM PATIENT IDENTITY VERIFICATION COMPLETED USING TWO (2) IDENTIFIERS: Name and Date of confirmedby patient verbally. FALL SCREENING: Has the patient had 2 falls in the last year or 1 fall with injury or currently using an Ambulatory Assistive Device (Walker, Cane, Wheelchair, Crutches, etc.)? No PATIENT GENDER DATA: Female. status: : No status: NO. PATIENT RELEVANT IMPLANT DATA REVIEWED: Yes RADIOLOGY DEPARTMENT: General X-ray: Exam(s) Completed: Upper Extremity X- Ray(s): Hand, bilateral PERIPHERAL IV DATA: Not applicable SIGNED BY: RT Keegan(R) March 09, 2023 3:24 PM documented in this encounterFirelands [facility]09-19-2023 History of Present illness Narrative* Gladys Baird MD - 02/21/2023 3:15 PM EDT Images from the original note were not included. . Respiratory [place] Note Patient name: Layla Higuera PCP: Taras Green Chi, MD CC: Check up on COPD HPI: Layla Higuera 72 year old female former 40 pack year smoker, quitting in 2014 with PMH significant for GOLD stage 0 COPD, DM2, GERD, HTN, HLD, , CAD s/p CABG, CVA, former patient of , new to me. Last seen in clinic three years ago. She did not require maintenance therapy atthat time and was prescribed albuterol to use as needed.. PFTs in 2019 were normal. She presents today regarding her respiratory status. She feels persistent chest tightness and has been more dyspneic on exertion. She has heard intermittent wheezing. She has used her albuterol which seems to help somewhat. She is having significant mucus chokes her at night gets her from sleep. She is pending a ENT evaluation. She has not had a history of asthma or allergies. Shortness of breath is worsened by exertion only. She denies's with changes in the weather or exposure to fumes or odors. DATA: PFT: Review pulmonary function test show small airways obstruction and normal diffusing capacity Labs: Last laboratory testing in EMR performed 6 months ago shows normal CBC and chemistry is only significant for mild kidney dysfunction Imaging / Diagnostic Studies: DATE OF EXAM: Jan 25 2019 9:42PM [facility] [place] CHEST W IVCON / PROCEDURE REASON: Shortness of breath Comparison: 10/14/2018 RESULT: Limitations: None. Lines, tubes, and devices: None. Lung parenchyma and pleura: No consolidation, pleural effusion or pneumothorax. Central airways arepatent. No suspicious pulmonary nodule is identified. Thoracic inlet, heart, and mediastinum: No lymphadenopathy in the axillary, mediastinal, or hilar regions. The thoracic aorta and main pulmonary artery are normal in caliber. The cardiac chambers arenormal in size. Coronory artery atherosclerotic calcifications are noted, although the study is notoptimized for coronary assessment. Atherosclerotic calcifications are present in the thoracic aorta. Prior CABG. No pericardial effusion or thickening. Bones and soft tissues: No acute osseous abnormality. Sternotomy wires. Chest wall is unremarkable. Upper abdomen: No acute abnormality in the imaged upper abdomen. Left renal cyst. IMPRESSION: No CT evidence of acute abnormality. No thoracic adenopathy. I personally reviewed the images which shows no evidence of emphysema or suspicious nodules. PAST MEDICAL HISTORY Diagnosis Date Aortic sclerosis Aspiration pneumonia ([facility]) Following CVA. CAD (coronary artery disease) COPD (chronic obstructive pulmonary disease) ([facility]) 03/18/2013 Stage 0. Normal FEV1 03/2013. Diabetes mellitus type II DVT (deep venous thrombosis) ([facility]) 09/2014 during hospitalization for CVA, bilateral legs and head Dysphagia due to recent stroke 09/2014 GERD (gastroesophageal reflux disease) Hyperlipidemia Hypertension Migraines NSTEMI (non-ST elevated myocardial infarction) (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 Stroke ([facility]) SUMMARY 10/14/2014 Ms Layla Higuera is a 64 year old with a PMH of HTN, DM2, COPD, CVA presenting with bilateral chest pain Weakness left sided 2nd to cva ALLERGIES Allergen Reactions Codeine Mental Status Change I was really trippin. Penicillins Swelling Swelling of lips. Sulfur Swelling Swelling of lips. Benadryl Allergy De* Other: See Comments I feel really weird Reglan [Metoclopram* Other: See Comments Rosuvastatin Myalgia Tylenol [Acetaminop* GI Upset insulin needles, DISPOSABLE, (PEN NEEDLE) 31 gauge x 5/16 Use one needle per dose. 4 per day. blood sugar diagnostic (BLOOD GLUCOSE TEST) test strip Test blood sugar(s) 4 times daily. Dx: Type 2 DM - Uncontrolled E11.65 Insulin: Yes.Send to pt whatever meter and supplies are covered. Lancets lancets Test blood sugar(s) 4 times daily. Dx: Type 2 DM - Uncontrolled E11.65 Insulin: YesSend to pt what ever meter and supplies are covered. aspirin, enteric coated (ASPIRIN, ENTERIC COATED) 81 mg EC tablet Take 1 tablet by mouth once daily. docusate sodium (COLACE) 100 mg capsule Take 1 capsule by mouth twice daily. insulin glargine (LANTUS SOLOSTAR, BASAGLAR KWIKPEN) 100 unit/mL (3 mL) Inject 30 Units subcutaneously daily at bedtime. Adjust dose as directed insulin aspart U-100 (NOVOLOG FLEXPEN U-100 INSULIN) 100 unit/mL (3 mL) Inject 10 Units subcutaneously three times daily before meals. If Blood Glucose (mg/dL) is: Less than 110 Give 0 units 111-150 Give 0 units 151-200 Give 1 unit 201-250 Give 2 units 251-300 Give 3 units 301-350 Give 4 units 351-400 Give 5 units Greater than 400 Give 5 units and Notify Provider Notify provider if 2 consecutive blood glucose values in the previous 24 hours are greater than 250 mg/mL and there have been no changes to the insulin regimen in the previous 24 hours. Cholecalciferol, Vitamin D3, 25 mcg (1,000 unit) chew Take 3 tablets by mouth once daily. metoprolol tartrate, short acting, (LOPRESSOR) 25 mg tablet Take 0.5 tablets by mouth every 12 hours. cyclobenzaprine (FLEXERIL) 10 mg tablet Take 1 tablet by mouth twice daily as needed for muscle spasm. cyanocobalamin (VITAMIN B-12) 1,000 mcg tab Take 1 tablet by mouth once daily. ondansetron (ZOFRAN) 4 mg tablet Take 1 tablet by mouth every 8 hours as needed. amLODIPine (NORVASC) 5 mg tablet Take 5 mg by mouth once daily. fexofenadine (LATANYA ALLERGY) 180 mg tablet Take 1 tablet by mouth once daily. omeprazole (PRILOSEC) 40 mg capsule Take 1 capsule by mouth twice daily. diclofenac (VOLTAREN ARTHRITIS PAIN) 1 % topical gel Apply 2 g to affected area four times daily. Use as needed Lactobac no.41/Bifidobact no.7 (PROBIOTIC-10 ORAL) Take by mouth. albuterol (PROVENTIL) 2.5 mg /3 mL (0.083 %) nebulizer solution Use 3 mL via nebulizer every 4 hours as needed for Wheezing/Shortness of Breath. Use over 5-15minutes. doxycycline (VIBRA-TABS) 100 mg tablet Take 1 tablet by mouth twice daily. Extend antibiotic if notresolved with 10 day course alcohol swabs Apply 1 application to affected area as needed. Lancing Device misc 1 Each four times daily. Test blood sugar(s) 4 times daily. Dx: Type 2 DM - Uncontrolled E11.65 Insulin: Yes Send to pt what ever meter and supplies are covered. albuterol HFA (PROVENTIL HFA, VENTOLIN HFA) 90 mcg/actuation inhaler INHALE 2 PUFFS BY MOUTH EVERY FOUR HOURS NEEDED FOR SHORTNESS OF BREATH AND WHEEZING polyethylene glycol 3350 (MIRALAX) 17 gram/dose powder Take 17 g by mouth once daily. calcium carbonate (OS-STEPHANIE 500) 500 mg calcium (1,250 mg) tablet citalopram (CELEXA) 20 mg tablet famotidine (PEPCID) 40 mg tablet rosuvastatin (CRESTOR) 40 mg tablet umeclidinium (INCRUSE ELLIPTA) 62.5 mcg/actuation inhaler Inhale 1 Puff as instructed once daily. pravastatin (PRAVACHOL) 40 mg tablet Take 1 tablet by mouth daily at bedtime. (Patient not taking: Reported on 02/21/2023) clopidogrel (PLAVIX) 75 mg tablet Take 1 tablet by mouth once daily. (Patient not taking: Reported on 02/21/2023) triamcinolone acetonide (NASACORT) 55 mcg nasal inhaler Use 2 Sprays in the nose once daily. for nasal drainage and congestion (Patient not taking: Reported on 02/21/2023) Nebulizer Accessories kit Use with home nebulizer for albuterol (Patient not taking: Reported on 02/21/2023) oxybutynin ER (DITROPAN XL) 10 mg 24 hr tablet Take 10 mg by mouth once daily. (Patient not taking:Reported on 02/21/2023) Social History Tobacco Use Smoking status: Former Packs/day: 1.00 Years: 40.00 Additional pack years: 0.00 Total pack years: 40.00 Types: Cigarettes Quit date: 09/04/2014 Years since quittin.4 Smokeless tobacco: Never Tobacco comments: Father smoked in childhood home. Vaping Use Vaping Use: Never used Substance Use Topics Alcohol use: No Drug use: No Pets: None FAMILY HISTORY Problem Relation Age of Onset Diabetes Mother Colon Cancer Mother Heart disease Father Diabetes Brother other (CABG) Brother other (esophageal cancer) Brother Asthma No Family History COPD No Family History Intersitial Lung Disease No Family History PAST SURGICAL HISTORY Procedure Laterality Date CABG (3) VEIN GRAFTS & ARTERIAL GRAFT(S) 05/30/2018 CAROTID ENDARTERECTOMY Right 2015 COLONOSCOPY 09/2012 ESOPHAGOGASTRODUODENOSCOPY TRANSORAL DIAGNOSTIC 09/2012 EGD PAST SURGICAL HISTORY OF 1975 explority of fallopian tubes PAST SURGICAL HISTORY OF 1998 cervical sterum SEPTOPLASTY 1998 PMH, Social history, family history and surgical history reviewed and updated in EMR REVIEW OF SYSTEMS: CONSTITUTIONAL: No fevers, chills, nightsweats, unintended weight loss HEENT: Persistent nasal congestion/sinus symptoms with postnasal drip. EYES: No diplopia or blurry vision. CARDIOVASCULAR: No palpitations, orthopnea, PND. Edema PULM: See HPI GI: No dysphagia/odynophagia, problematic reflux, constipation, diarrhea, changes in stool habits : No urinary complaints, including dysuria, gross hematuria or pyuria. NEURO: Poor balance, ambulates with cane, neuropathy MUSC-SKEL: Osteoarthritis PSY: No concerns regarding depression, anxiety INTEGUMENTARY: No new skin changes or rashes PHYSICAL EXAMINATION: BP 150/80 Pulse 72 Resp 12 Wt 166 lb (75.3kg) SpO2 98% General Appearance: Age-appropriate female, NAD, somewhat flat affect Skin: Skin color, texture, turgor normal, no suspicious rashes or lesions. Head: Normocephalic, no masses, lesions, tenderness or abnormalities. Eyes: Sclera, conjunctiva normal. Oropharynx: No oral lesions. Neck: No JVD, no masses, no thyromegaly, no adenopathy Chest wall: Mild kyphosis. Lungs: Not labored, normal to percussion, no wheezes or crackles. Heart: Regular rate and rhythm, systolic murmur. Extremities: Edema, no clubbing. Musculoskeletal: No joint deformities or effusions. Neurologic: Alert and oriented, ambulates with cane. Assessment/Plan: 1. Mild COPD -Symptomatic and patient shows mild small airways obstruction -Started LAMA -Continue albuterol as needed 2. Former cigarette smoker -Former smoker having quit in 2014 with sequelae of mild COPD -Continue abstinence -Referral for lung cancer screening Gladys Baird MD Respiratory [place] documented in this encounterFire[facility]19-[facility] History of Present illness Narrative* Maci HerringELIZA - 02/21/2023 2:36 PM EDT PULM FUNCTION SMARTBLOCK: Provider: Gladys Baird MD Assisting Tech: Maci Herring RPFT Spirometry: 1 DLCO: 1 documented in this encounterFirelands [facility]08-30-2023 Miscellaneous Notes* Telephone Encounter - Martha Colin Ma - 02/01/2023 3:19 PM EDT Patient cancelled appointment. * Telephone Encounter - Martha Colin Ma - 02/01/2023 9:28 AM EDT Patient has an appointment tomorrow with Dr. Carpio for hand pain. Is she having carpal tunnel symptoms or a new problem with hand pain. Left message to call office to let us know if this is a new problem and would need x-rays prior to her appointment tomorrow. documented in this encounterFirelands [facility] Medical [facility]06-06-2023 NotePap Smear Specimen AdequacyJune 2022 3:02pmComment.Satisfactory for evaluation. No endocervical component is identified.[facility] A#[id number] Surgical Hospital at Southwoods on above:Satisfactory for evaluation. No endocervical component is identified.11-08-2022 NotePap Smear Specimen AdequacyJune 2022 3:02pmComment.Satisfactory for evaluation. No endocervical component is identified.[facility] INTER[facility] A#[id number] Clinic [facility] HospitalComfresenius [facility] on above:Satisfactory for evaluation. No endocervical component is identified. 11-08-2022 NotePap Smear Specimen AdequacyJune 2022 3:02pmComment. Satisfactory for evaluation. No endocervical component is identified.[facility] A#[id number] Surgical Hospital at Southwoods on above:Satisfactory for evaluation. No endocervical component is identified.11-08-2022 NotePap Smear Specimen AdequacyJune 2022 3:02pmComment.Satisfactory for evaluation. No endocervical component is identified.[facility] INTER[facility] A#[id number] Medical Specialty Hospital - Cleveland-FairhillComment on above:Satisfactory for evaluation. No endocervical component is identified.11-08-2022 NotePap Smear Specimen AdequacyJune 2022 3:02pmComment.Satisfactory for evaluation. No endocervical component is identified.[facility] A#[id number] Clinic [facility] General Lodi HospitalComment on above:Satisfactory for evaluation. No endocervical component is identified. 07-12-2022 History and physical note Author Philip Drummond [facility] July 12, 2022 11:56am Note Date/Time July 12, 2022 1 1:56am [facility] Medical Records Department [address] [place] [address] History & Physical Exam 07/12/22 1156 MR#: [id number] Acct: [id number] Name: LAYLA HIGUERA Rep #:[id number] : 1950 72 From: Philip Drummond DO PCP: Dr. Taras Green MD Status:[facility] Location: [place] [address] History and Physical Date of Admission: 07/12/22 71 F who presents to the office today for?Follow up visit. Layla established with this clinic .12.[address] [facility] hospitalization. Gastroenterology saw rolanda an outpatient for persistent nausea and she was diagnosed with idiopathic, recurrent pancreatitis as seen on CT scan where layering of the gallbladder withstones/sludge was seen. She was then lost to follow up. Follow up 12.09.21 she continues to have difficulty with nausea with periodic emesis and bloating. She does have a known hiatal hernia for which she attributes to her symptoms. Presents today with referral from PCP. She presented to [facility] ED 6.. for abdominal cramping and inability to have a BM. KUB obtained and fleets enema performed with no effect. CT scan performed without contrast (unable to drink) and diagnosis of diverticulitis given with PO cipro and flagyl provided. She then presented to PCP with continued nausea/emesis, lower abdominal pain and inability to have a BM. She was given Levaquin and flagyl IV and Linzess 290MCG.Seen the next day and Rocephin IM added with PO Levaquin and flagyl for diverticulitis and lactulose added to promote BM. November 15 She reported a good BMand resolution of nausea/vomiting and abdominal pain. BM is typically 1-3 times a day with normal/soft stooling; though she has difficulty with lower abdominal cramping without identifying trigger. PMH includes hyperlipidemia; HTN; DM; CVA; NSTEMI; Ischemic stroke. CT abd/pel 6.4.22 noted minimal sludge in gallbladder; small hiatal hernia; fecal retention; diverticulosis with evidence of diverticulitis. ROS Const Constitutional: No other (6 system ROS completed with pertinent findings in the HPI otherwise normal.) Quality Reporting Tobacco Screening ([facility] 138) Smoking Status: Former smoker Assessment and Plan Assessment and Plan (1) Pancreatitis: ?Status:?Acute ?Plan: Acute recurrent secondary to alcohol.? We will get an MRCP to see if she has anysigns of chronic pancreatitis and present remainder of pancreatitis or biliary stricture.? He already has a cystic structure secondary to cirrhosis.? However we will also check. (2) Bloating: ?Status:?Chronic ?Comment: Patient ?Plan: ?as I believe a lot of her issues are secondary patient being chronically constipated.? We will get her a specific bowel regimen to hopefully allow her toevacuate completely on a daily basis. (3) Constipation: ?Status:?Chronic I have examined the patient and the H&P has been reviewed. There are no clinicalchanges since date of exam. 07/12/22 1156 <Electronically signed by Philip Drummond DO> Cosigner Signature (if applicable): CC: Dr. Taras Green MD; Philip Drummond DO~ Signed [facility] Work Phone: 1(741) 567-760602-07-2023 Procedure [facility] 07-12-2022 Procedure [facility]02-07-2023 Procedure note [facility]02-07-2023 Procedure [facility] 10-15-2021 Miscellaneous Notes* Telephone Encounter - Inés Nuñez RN - 10/15/2021 4:19 PM EDT Pt does not have a PCP entered, I did not know if she was dropped by the provider, but I told pharmacy I could try putting them in. Patient has been identified by name and date of : Yes Pharmacy phones for refill(s): Pending Prescriptions Disp Refills PRAVASTATIN 40 MG TABLET 90 tablet 3 Sig: Take 1 tablet by mouth daily at bedtime. MARION: No PEN NEEDLE, DIABETIC 31 GAUGE X 5/16 120 Each 11 Sig: Use one needle per dose. 4 per day. MARION: No Date of last office visit in primary care: 03/10/21 Future visit: none Last 2 Encounter Wt Readings: Date: Wt: 06/29/2021 72.8 kg (160 lb 9.6 oz) 11/25/2020 76.7 kg (169 lb) Previous labs/tests for medication: Diabetes: Hemoglobin A1C (%) Date Value 06/29/2021 8.8 10/21/2020 8.4 Cholesterol: HDL Cholesterol (mg/dL) Date Value 06/29/2021 45 LDL Cholesterol (mg/dL) Date Value 06/29/2021 186 ALT (U/L) Date Value 06/29/2021 14 Non HDL Cholesterol, Nonfasting (mg/dL) Date Value 02/18/2020 202 Non HDL Cholesterol (mg/dL) Date Value 06/29/2021 209 Please advise. Thank you. Inés Nuñez RN documented in this encounterFirelands [facility]03-13-2019 History of Past illness Narrative* Problem Noted Date Resolved Date Hypoglycemia 08/15/2018 08/20/2018 S/P CABG (coronary artery bypass graft) 06/10/19 19 08/02/2018 NSTEMI (non-ST elevated myocardial infarction) 1 07/29/2017 08/02/2018 Chest pain 10/14/2014 06/08/2018 Overview: Bilateral, likely MSK No new EKG changes, trop negative x 1 No acute findings on CXR Plan: - cont cardiac monitoring - cycle CE,s - cont statin - prn O2 - start Naproxen for costochondritis Unspecified gastritis and ga stroduodenitis without mention of hemorrhage 09/25/2012 10/23/2020 documented as of this encounter (statuses as of 10/16/2021) [facility]03-13-[facility] History of Past illness Narrative* Problem Noted Date Diagnosed Date Resolved Date Hypoglycemia 08/15/2018 08/20/2018 S/P CABG (coronary artery bypass graft) 06/10/2018 08/02/2018 NSTEMI (non-ST elevated myoc ardial infarction) 05/28/2018 08/02/2018 Chest pain 10/14/2014 06/08/2018 Overview: Bilateral, likely MSK No new EKG changes, trop negative x 1 No acute findings on CXR Plan: - cont cardiac monitoring - cycle CE,s - cont statin - prn O2 - start Naproxen for costochondritis Unspecified gastritis and ga stroduodenitis without mention of hemorrhage 09/25/2012 10/23/2020 documented as of this encounter (statuses as of 02/02/2023) [facility]03[facility] History of Past illness Narrative* Problem Noted Date Diagnosed Date Resolved Date Hypoglycemia 08/15/2018 08/20/2018 S/P CABG (coronary artery bypass graft) 06/10/2018 08/02/2018 NSTEMI (non-ST elevated myoc ardial infarction) 05/28/2018 08/02/2018 Chest pain 10/14/2014 06/08/2018 Overview: Bilateral, likely MSK No new EKG changes, trop negative x 1 No acute findings on CXR Plan: - cont cardiac monitoring - cycle CE,s - cont statin - prn O2 - start Naproxen for costochondritis Unspecified gastritis and ga stroduodenitis without mention of hemorrhage 09/25/2012 10/23/2020 documented as of this encounter (statuses as of 02/22/2023) [facility] History of Past illness Narrative* Problem Noted Date Diagnosed Date Resolved Date Hypoglycemia 08/15/2018 08/20/2018 S/P CABG (coronary artery bypass graft) 06/10/2018 08/02/2018 NSTEMI (non-ST elevated myoc ardial infarction) 05/28/2018 08/02/2018 Chest pain 10/14/2014 06/08/2018 Overview: Bilateral, likely MSK No new EKG changes, trop negative x 1 No acute findings on CXR Plan: - cont cardiac monitoring - cycle CE,s - cont statin - prn O2 - start Naproxen for costochondritis Unspecified gastritis and ga stroduodenitis without mention of hemorrhage 09/25/2012 10/23/2020 documented as of this encounter (statuses as of 02/22/2023) [facility] History of Past illness Narrative* Problem Noted Date Diagnosed Date Resolved Date Hypoglycemia 08/15/2018 08/20/2018 S/P CABG (coronary artery bypass graft) 06/10/2018 08/02/2018 NSTEMI (non-ST elevated myoc ardial infarction) 05/28/2018 08/02/2018 Chest pain 10/14/2014 06/08/2018 Overview: Bilateral, likely MSK No new EKG changes, trop negative x 1 No acute findings on CXR Plan: - cont cardiac monitoring - cycle CE,s - cont statin - prn O2 - start Naproxen for costochondritis Unspecified gastritis and ga stroduodenitis without mention of hemorrhage 09/25/2012 10/23/2020 documented as of this encounter (statuses as of 03/14/2023) [facility] History of Past illness Narrative* Problem Noted Date Diagnosed Date Resolved Date Hypoglycemia 08/15/2018 08/20/2018 S/P CABG (coronary artery bypass graft) 06/10/2018 08/02/2018 NSTEMI (non-ST elevated myoc ardial infarction) 05/28/2018 08/02/2018 Chest pain 10/14/2014 06/08/2018 Overview: Bilateral, likely MSK No new EKG changes, trop negative x 1 No acute findings on CXR Plan: - cont cardiac monitoring - cycle CE,s - cont statin - prn O2 - start Naproxen for costochondritis Unspecified gastritis and ga stroduodenitis without mention of hemorrhage 09/25/2012 10/23/2020 documented as of this encounter (statuses as of 04/03/2023) [facility] History of Past illness Narrative* Problem Noted Date Diagnosed Date Resolved Date Hypoglycemia 08/15/2018 08/20/2018 S/P CABG (coronary artery bypass graft) 06/10/2018 08/02/2018 NSTEMI (non-ST elevated myoc ardial infarction) 05/28/2018 08/02/2018 Chest pain 10/14/2014 06/08/2018 Overview: Bilateral, likely MSK No new EKG changes, trop negative x 1 No acute findings on CXR Plan: - cont cardiac monitoring - cycle CE,s - cont statin - prn O2 - start Naproxen for costochondritis Unspecified gastritis and ga stroduodenitis without mention of hemorrhage 09/25/2012 10/23/2020 documented as of this encounter (statuses as of 04/09/2023) [facility] of Past illness Narrative* Problem Noted Date Diagnosed Date Resolved Date Hypoglycemia 08/15/2018 08/20/2018 S/P CABG (coronary artery bypass graft) 06/10/2018 08/02/2018 NSTEMI (non-ST elevated myoc ardial infarction) 05/28/2018 08/02/2018 Chest pain 10/14/2014 06/08/2018 Overview: Bilateral, likely MSK No new EKG changes, trop negative x 1 No acute findings on CXR Plan: - cont cardiac monitoring - cycle CE,s - cont statin - prn O2 - start Naproxen for costochondritis Unspecified gastritis and ga stroduodenitis without mention of hemorrhage 09/25/2012 10/23/2020 documented as of this encounter (statuses as of 04/14/2023) [facility] of Past illness Narrative* Problem Noted Date Diagnosed Date Resolved Date Hypoglycemia 08/15/2018 08/20/2018 S/P CABG (coronary artery bypass graft) 06/10/2018 08/02/2018 NSTEMI (non-ST elevated myoc ardial infarction) 05/28/2018 08/02/2018 Chest pain 10/14/2014 06/08/2018 Overview: Bilateral, likely MSK No new EKG changes, trop negative x 1 No acute findings on CXR Plan: - cont cardiac monitoring - cycle CE,s - cont statin - prn O2 - start Naproxen for costochondritis Unspecified gastritis and ga stroduodenitis without mention of hemorrhage 09/25/2012 10/23/2020 documented as of this encounter (statuses as of 04/14/2023) [facility] History of Past illness Narrative* Problem Noted Date Diagnosed Date Resolved Date Hypoglycemia 08/15/2018 08/20/2018 S/P CABG (coronary artery bypass graft) 06/10/2018 08/02/2018 NSTEMI (non-ST elevated myoc ardial infarction) 05/28/2018 08/02/2018 Chest pain 10/14/2014 06/08/2018 Overview: Bilateral, likely MSK No new EKG changes, trop negative x 1 No acute findings on CXR Plan: - cont cardiac monitoring - cycle CE,s - cont statin - prn O2 - start Naproxen for costochondritis Unspecified gastritis and ga stroduodenitis without mention of hemorrhage 09/25/2012 10/23/2020 documented as of this encounter (statuses as of 04/18/2023) [facility] History of Past illness Narrative* Problem Noted Date Diagnosed Date Resolved Date Hypoglycemia 08/15/2018 08/20/2018 S/P CABG (coronary artery bypass graft) 06/10/2018 08/02/2018 NSTEMI (non-ST elevated myoc ardial infarction) 05/28/2018 08/02/2018 Chest pain 10/14/2014 06/08/2018 Overview: Bilateral, likely MSK No new EKG changes, trop negative x 1 No acute findings on CXR Plan: - cont cardiac monitoring - cycle CE,s - cont statin - prn O2 - start Naproxen for costochondritis Unspecified gastritis and ga stroduodenitis without mention of hemorrhage 09/25/2012 10/23/2020 documented as of this encounter (statuses as of 07/10/2023) [facility] CampusEvaludelaware [facility]* Diagnosis Mixed hyperlipidemia Type 2 diabetes mellitus with diabetic neuropathy, with long-term current use of insulin (HCC) documented in this encounter [facility]* Diagnosis Onset Date Resolution Status Chest pain acute Atherosclerosis of coronary artery of [place] heart without angina pectoris chronic Essential (primary) hypertension chronic Hyperlipidemia chronic H/O coronary artery bypass surgery May 30, 2018 resolved Atherosclerosis of coronary artery of [place] heart without angina pectoris chronic Essential (primary) hypertension chronic Hyperlipidemia chronic Contact with or suspected ex posure to other viral communicable disease [facility] Work Phone: Evaluation note* Diagnosis Onset Date Resolution Status Atherosclerosis of coronary artery of [place] heart without angina pectoris chronic Essential (primary) hypertension chronic Hyperlipidemia chronic Contact with or suspected ex posure to other viral communicable disease [facility] Work Phone: Evaluation note* Diagnosis Onset Date Resolution Status Closed fracture of distal phalanx of right thumb noneactive Atherosclerosis of coronary artery of [place] heart without angina pectoris chronic Essential (primary) hypertension chronic Hyperlipidemia chronic Closed fracture of distal phalanx of right thumb noneactive Closed fracture of distal phalanx of right thumb noneactive Closed fracture of distal phalanx of right thumb noneactive Contact with or suspected ex posure to other viral communicable disease acute Pancreatitis acute Bloating chronic Constipation chronic Closed fracture of distal phalanx of right thumb noneactive [facility] Work Phone: Evaluation note* Diagnosis Onset Date Resolution Status Pancreatitis acute Bloating chronic Constipation chronic Closed fracture of distal phalanx of right thumb noneactive Closed fracture of distal phalanx of right thumb noneactive [facility] Work Phone: Evaluation note* Diagnosis Onset Date Resolution Status Closed fracture of distal phalanx of right thumb noneactive [facility] Work Phone: Evaluation note* Diagnosis Onset Date Resolution Status Closed fracture of distal phalanx of right thumb noneactive Chest pain acute MAURICIO (dyspnea on exertion) [place] Atherosclerosis of coronary artery of [place] heart without angina pectoris chronic Essential (primary) hypertension chronic Hyperlipidemia [facility] Work Phone: Evaluation note* Diagnosis Onset Date Resolution Status Chest pain acute MAURICIO (dyspnea on exertion) [place] Atherosclerosis of coronary artery of [place] heart without angina pectoris chronic Essential (primary) hypertension chronic Hyperlipidemia [facility] Work Phone: Evaluation note* Diagnosis Onset Date Resolution Status Chest pain acute MAURICIO (dyspnea on exertion) [place] Atherosclerosis of coronary artery of [place] heart without angina pectoris chronic Essential (primary) hypertension chronic Hyperlipidemia chronic Acute sinusitis acute Nausea acute Yeast vaginitis acute [facility] Work Phone: Evaluation note* Diagnosis Onset Date Resolution Status Acute sinusitis acute Nausea acute Yeast vaginitis acute [facility] Work Phone: Evaluation note* Diagnosis Onset Date Resolution Status Bradycardia acute Atherosclerosis of coronary artery of [place] heart without angina pectoris chronic Essential (primary) hypertension chronic Hyperlipidemia chronic Nausea acute Bloating chronic Constipation chronic [facility] Work Phone: Evaluation note* Diagnosis Onset Date Resolution Status Bradycardia acute Atherosclerosis of coronary artery of [place] heart without angina pectoris chronic Essential (primary) hypertension chronic Hyperlipidemia chronic Nausea acute Bloating chronic Constipation chronic Arterial vascular disease ch ronic Bilateral buttock pain chron ic Former smoker chronic Lumbar back pain [facility] Work Phone: Evaluation note* Diagnosis Onset Date Resolution Status Bradycardia acute Atherosclerosis of coronary artery of [place] heart without angina pectoris chronic Essential (primary) hypertension chronic Hyperlipidemia chronic Nausea acute Bloating chronic Constipation chronic Arterial vascular disease ch ronic Bilateral buttock pain chron ic Current use of long term care administrator anticoagulation chronic Former smoker chronic Lumbar back pain [facility] Work Phone: Evaluation note* Diagnosis Chronic obstructive pulmonary disease, unspecified COPD type (HCC) documented [facility] this encounter [facility]* Diagnosis Chronic obstructive pulmonary disease, unspecified COPD type (HCC) documented in this encounter [facility]* Diagnosis COPD, mild (HCC)- Primary Chronic airway obstruction, not elsewhere classified Former cigarette smoker Personal history of tobacco use, presenting hazards to health documented in this encounter [facility]* Diagnosis Encounter for screening for lung cancer- Primary Former cigarette smoker Personal history of tobacco use, presenting hazards to health documented in this encounter [facility] note* Diagnosis Onset Date Resolution Status Arterial vascular disease ch ronic Bilateral buttock pain chron ic Current use of long term care administrator anticoagulation chronic Former smoker chronic Lumbar back pain chronic [facility] Work Phone: Evaluation note* Diagnosis Bilateral carpal tunnel syndrome- Primary Carpal tunnel syndrome [facility] Diagnosis Bilateral hand pain Pain in limb [facility] this encounter [facility] Diagnosis Former cigarette smoker Personal history of tobacco use, presenting hazards to health documented in this encounter [facility] Diagnosis Former smoker- Primary Personal history of tobacco use, presenting hazards to health documented in this encounter [facility]* Diagnosis Lung nodules- Primary Other nonspecific abnormal finding of lung field Former smoker Personal history of tobacco use, presenting hazards to health documented in this encounter [facility]* Diagnosis Onset Date Resolution Status Nausea acute Bloating chronic Constipation chronic Chest pain acute Diminished pulses in lower extremity acute Atherosclerosis of coronary artery of [place] heart without angina pectoris chronic Essential (primary) hypertension chronic Hyperlipidemia chronic H/O coronary artery bypass surgery May 30, 2018 resolved [facility] Work Phone: Evaluation note* Diagnosis Onset Date Resolution Status Chest pain acute Diminished pulses in lower extremity acute Atherosclerosis of coronary artery of [place] heart without angina pectoris chronic Essential (primary) hypertension chronic Hyperlipidemia chronic H/O coronary artery bypass surgery May 30, 2018 resolved [facility] Work Phone: Evaluation noteNo assessment information available [facility] Work Phone: Evaluation note* Diagnosis Vulvar dermatitis- Primary Other inflammatory disease of cervix, vagina and vulva Cystocele, midline documented in this encounter [facility]* Diagnosis Vaginal itching- Primary Pruritus of genital organs Cystocele, midline [facility] Dis[facility] instructionsAdditional Instructions Please follow-up with your neonatal critical care nurse as well as your family physician for further evaluation especially if the symptoms persist. Your workup today was very reassuring. You did have intermittent slow heart rate called bradycardia. Please talk to your neonatal critical care nurse about this.[facility] Work Phone: Reason for referral (narrative)* Outpatient Procedure (Routine) - Authorized Specialty Diagnoses / Procedures Referred By Dimas higgins Referred To Contact [facility] Diagnoses Bilateral carpal tunnel syndrome Procedures EMG(NEURO/NI) NERVE CONDUCTION STUDIES 9-10 STUDIES Jonathon Carpio MD [address] [place] [address] [facility] [place] [address] [place] [address] Referral ID Status Reason Start Date Expiration Date Visits Requested Visits Authorized [id number] Authorized Auto-Generat ed Referral 03/09/2023 03/09/2024 1 1 [facility] for referral (narrative)* Diagnostic Procedure Only (Routine) - Closed Specialty Diagnoses / Procedures Referred By Contac t Referred To Contact XR IMAGING Diagnoses Bilateral hand pain Procedures XR HAND GENERAL 3V PA/LAT/OBL BILATERAL RADEX HAND MINIMUM 3 VIEWS Jonathon Carpio MD [address] [place] [address] [place] [address] Referral ID Status Reason Start Date Expiration Date V isits Requested Visits Authorized [id number] Closed Auto-Generate d Referral 03/01/2023 03/30/2024 1 1 [facility] for referral (narrative)No reason for referral information [facility] Narrative* Diagnostic Procedure Only (Routine) - Closed Specialty Diagnoses / Procedures Referred By Contac t Referred To Contact XR IMAGING Diagnoses Bilateral hand pain Procedures XR HAND GENERAL 3V PA/LAT/OBL BILATERAL RADEX HAND MINIMUM 3 VIEWS Jonathon Carpio MD [address] [place] [address] [place] [address] Referral ID Status Reason Start Date Expiration Date V isits Requested Visits Authorized [id number] Closed Auto-Generate d Referral 03/01/2023 03/30/2024 1 1 [facility] Summary Purpose Family History Relationship Condition Age at Onset Recorded Date/T gissel Unknown Family History?No pe rtinent history Unknown September 12, 2013 8:55pm Family History?No pe rtinent history Unknown June 15, 2018 2:57am Relationship Condition Age at Onset Recorded Date/T gissel Unknown Family History?No pe rtinent history Unknown September 12, 2013 7:55pm Family History?No pe rtinent history Unknown June 15, 2018 1:57am Relationship Condition Age at Onset Recorded Date/T gissel Unknown Family History?No pe rtinent history Unknown September 12, 2013 8:55pm Family History?No pe rtinent history Unknown June 15, 2018 2:57am Family History?No pe rtinent history Unknown April 12, 2024 2:32pm Advance Directives Documents on File Type Date Recorded Patient Director Of Adult Epilepsy Expl anation Advance Directives and Living Will Power of Netezza Architect Documents on File Type Date Recorded Patient Director Of Adult Epilepsy Expl anation Advance Directive(s) 01/25/2019 8:28 PM Advance Directive(s) 08/14/2018 5:53 PM Advance Directive Response Recorded Date/ Time Advance Directives No September 12, 014 10:52pm Living Will No July 15 4:46pm Power of Netezza Architect No July 15, 2021 4:46pm Advance Directive Response Recorded Date/ Time Advance Directives No September 12 10:52pm Living Will No November 06, 2021 1 0:13am Power of Netezza Architect No November 06, 2021 10:13am Advance Directive Response Recorded Date/ Time Advance Directives No September 12 9:52pm Living Will No November 06, 2021 9 :13am Power of Netezza Architect No November 06, 2021 9:13am Advance Directive Response Recorded Date/ Time Advance Directives No September 12 9:52pm Living Will No July 08 1:58pm Power of Netezza Architect No July 08, 2022 1:58pm Advance Directive Response Recorded Date/ Time Advance Directives No September 12 10:52pm Living Will No July 08 2:58pm Power of Netezza Architect No July 08, 2022 2:58pm Advance Directive Response Recorded Date/ Time Living Will No July 08 2:58pm Power of Netezza Architect No July 08, 2022 2:58pm Living Will No October 25, 2023 2 :50pm Power of Netezza Architect Yes October 25, 2023 2:50pm Advance Directives No April 12, 2024 2:32pm Advance Directive Response Recorded Date/ Time Living Will No October 25, 2023 2 :50pm Do you have a Healthcare Power of Netezza Architect? Yes October 25, 2023 2:50pm Advance Directives No April 12, 2024 2:32pm Advance Directive Response Recorded Date/ Time Living Will No July 08 2:58pm Do you have a Healthcare Power of Netezza Architect? No July 08, 2022 2:58pm Advance Directives No April 12, 2024 2:32pm Advance Directive Response Recorded Date/ Time Living Will No July 08 2:58pm Do you have a Healthcare Power of Netezza Architect? No July 08, 2022 2:58pm Do you have a Healthcare Power of Netezza Architect? No December 31, 2024 4:03pm Advance Directives No April 12, 2024 2:32pm Assessments Diagnosis Chronic fatigue Other malaise and fatigue Diabetes mellitus type 2 in obese (HCC) Type II or unspecified type diabetes mellitus without mention of complication, not stated as uncontrolled Chronic bilateral low back pain without sciatica Diagnosis Acute frontal sinusitis, recurrence not specified- Primary Diagnosis Dyspnea, unspecified type- Primary Discharge Instructions * Instructions* Leonides Tyler MD - 04/04/2019 Return for any worsening or worrisome symptoms without fail. * Attachments The following attachments cannot be sent through Care Everywhere. * Sinusitis (Japanese) * Sinus Rinse (Japanese) documented in this encounter* Attachments The following attachments cannot be sent through Care Everywhere. * SOB (Shortness of Breath) (Japanese) documented in this encounter Chief Complaint and Reason for Visit Chief Complaint 1 Y FU NUMBNESS & TINGLING CHEST PAIN CHEST PAIN CHEST PAIN SCREENING right thumb 6 wk FU RIGHT THUMB xray RIGHT THUMB xray Right thumb xray CEPHEID TEST RT DISPL OBLIQUE FX THUMB,ARTH RT THUMB IP JNT/RX Reason for Visit Chest pain Atherosclerosis of coronary artery of [place] heart without angina pectoris Essential (primary) hypertension Hyperlipidemia H/O coronary artery bypass surgery Atherosclerosis of coronary artery of [place] heart without angina pectoris Essential (primary) hypertension Hyperlipidemia Contact with or suspected exposure to other viral communicable disease Chief Complaint 1 Y FU NUMBNESS & TINGLING CHEST PAIN CHEST PAIN CHEST PAIN SCREENING right thumb 6 wk FU RIGHT THUMB xray RIGHT THUMB xray Right thumb xray CEPHEID TEST RT DISPL OBLIQUE FX THUMB,ARTH RT THUMB IP JNT/RX constipation Reason for Visit Chest pain Atherosclerosis of coronary artery of [place] heart without angina pectoris Essential (primary) hypertension Hyperlipidemia H/O coronary artery bypass surgery Atherosclerosis of coronary artery of [place] heart without angina pectoris Essential (primary) hypertension Hyperlipidemia Contact with or suspected exposure to other viral communicable disease Chief Complaint CHEST PAIN CHEST PAIN CHEST PAIN SCREENING right thumb 6 wk FU RIGHT THUMB xray RIGHT THUMB xray Right thumb xray CEPHEID TEST RT DISPL OBLIQUE FX THUMB,ARTH RT THUMB IP JNT/RX constipation Reason for Visit Atherosclerosis of c oronary artery of [place] heart without angina pectoris Essential (primary) hypertension Hyperlipidemia Contact with or suspected exposure to other viral communicable disease Chief Complaint right thumb 6 wk FU RIGHT THUMB xray RIGHT THUMB xray Right thumb xray CEPHEID TEST constipation GASEOUS RIGHT THUMB xray RT DISPL OBLIQUE FX THUMB,ARTH RT THUMB IP JNT/RX Reason for Visit Closed fracture of d istal phalanx of right thumb Atherosclerosis of coronary artery of [place] heart without angina pectoris Essential (primary) hypertension Hyperlipidemia Closed fracture of distal phalanx of right thumb Closed fracture of distal phalanx of right thumb Closed fracture of distal phalanx of right thumb Contact with or suspected exposure to other viral communicable disease Pancreatitis Bloating Constipation Closed fracture of distal phalanx of right thumb Chief Complaint GASEOUS RIGHT THUMB xray RT DISPL OBLIQUE FX THUMB,ARTH RT THUMB IP JNT/RX RIGHT THUMB xray Reason for Visit Pancreatitis Bloating Constipation Closed fracture of distal phalanx of right thumb Closed fracture of distal phalanx of right thumb Chief Complaint RT DISPL OBLIQUE FX THUMB,ARTH RT THUMB IP JNT/RX RIGHT THUMB xray BILAT LOWER Type 2 diabetes mellitus with diabetic BILAT LOWER Type 2 diabetes mellitus with diabetic Reason for Visit Closed fracture of d istal phalanx of right thumb Chief Complaint RIGHT THUMB xray BILAT LOWER Type 2 diabetes mellitus with diabetic BILAT LOWER Type 2 diabetes mellitus with diabetic 6 M FU E-ORDER Reason for Visit Closed fracture of d istal phalanx of right thumb Chest pain MAURICIO (dyspnea on exertion) Atherosclerosis of coronary artery of [place] heart without angina pectoris Essential (primary) hypertension Hyperlipidemia Chief Complaint BILAT LOWER 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 LOWER Type 2 diabetes mellitus with diabetic 6 M FU E-ORDER Reason for Visit Chest pain MAURICIO (dyspnea on exertion) Atherosclerosis of coronary artery of [place] heart without angina pectoris Essential (primary) hypertension Hyperlipidemia Chief Complaint BILAT LOWER 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 LOWER Type 2 diabetes mellitus with diabetic 6 M FU E-ORDER Urinary tract infection Reason for Visit Chest pain MAURICIO (dyspnea on exertion) Atherosclerosis of coronary artery of [place] heart without angina pectoris Essential (primary) hypertension Hyperlipidemia Acute sinusitis Nausea Yeast vaginitis Chief Complaint 6 M FU E-ORDER Urinary tract infection Reason for Visit Chest pain MAURICIO (dyspnea on exertion) Atherosclerosis of coronary artery of [place] heart without angina pectoris Essential (primary) hypertension Hyperlipidemia Acute sinusitis Nausea Yeast vaginitis Chief Complaint Urinary tract infect ion SCREENING Reason for Visit Acute sinusitis Nausea Yeast vaginitis Chief Complaint SCREENING 1 Y FU 2 WK FU NAUSEA Type 2 diabetes mellitus with hyperglycemia Reason for Visit Bradycardia Atherosclerosis of coronary artery of [place] heart without angina pectoris Essential (primary) hypertension Hyperlipidemia Nausea Bloating Constipation Chief Complaint SCREENING 1 Y FU 2 WK FU NAUSEA Type 2 diabetes mellitus with hyperglycemia MASTODYNIA Reason for Visit Bradycardia Atherosclerosis of coronary artery of [place] heart without angina pectoris Essential (primary) hypertension Hyperlipidemia Nausea Bloating Constipation Chief Complaint SCREENING 1 Y FU 2 WK FU NAUSEA Type 2 diabetes mellitus with hyperglycemia MASTODYNIA LIPOMA OF BUTTOCKS Reason for Visit Bradycardia Atherosclerosis of coronary artery of [place] heart without angina pectoris Essential (primary) hypertension Hyperlipidemia Nausea Bloating Constipation Arterial vascular disease Bilateral buttock pain Former smoker Lumbar back pain Chief Complaint SCREENING 1 Y FU 2 WK FU NAUSEA Type 2 diabetes mellitus with hyperglycemia MASTODYNIA LIPOMA OF BUTTOCKS CHEST PAIN Reason for Visit Bradycardia Atherosclerosis of coronary artery of [place] heart without angina pectoris Essential (primary) hypertension Hyperlipidemia Nausea Bloating Constipation Arterial vascular disease Bilateral buttock pain Current use of [facility] anticoagulation Former smoker Lumbar back pain Chief Complaint MASTODYNIA LIPOMA OF BUTTOCKS CHEST PAIN CP CHRONIC SINUSITIS LEFT AND RIGHT SUPEROLATERAL BUTTOCK Reason for Visit Arterial vascular di sease Bilateral buttock pain Current use of long term care administrator anticoagulation Former smoker Lumbar back pain Chief Complaint CHRONIC SINUSITIS LEFT AND RIGHT SUPEROLATERAL BUTTOCK 4 MO FU CP PER PETER PT NEEDS PM APT (SCANNED) DECREASED PEDAL PULSES CARPAL TUNNEL, BILATERAL Carpal tunnel syndrome, bilateral upper limbs CARPAL TUNNEL, BILATERAL Reason for Visit Nausea Bloating Constipation Chest pain Diminished pulses in lower extremity Atherosclerosis of coronary artery of [place] heart without angina pectoris Essential (primary) hypertension Hyperlipidemia H/O coronary artery bypass surgery Chief Complaint CHRONIC SINUSITIS LEFT AND RIGHT SUPEROLATERAL BUTTOCK 4 MO FU CP PER PETER PT NEEDS PM APT (SCANNED) DECREASED PEDAL PULSES CARPAL TUNNEL, BILATERAL Carpal tunnel syndrome, bilateral upper limbs CARPAL TUNNEL, BILATERAL Personal history of transient ischemic attack (TIA Reason for Visit Nausea Bloating Constipation Chest pain Diminished pulses in lower extremity Atherosclerosis of coronary artery of [place] heart without angina pectoris Essential (primary) hypertension Hyperlipidemia H/O coronary artery bypass surgery Chief Complaint CP PER PETER PT NEEDS PM APT (SCANNED) DECREASED PEDAL PULSES CARPAL TUNNEL, BILATERAL Carpal tunnel syndrome, bilateral upper limbs CARPAL TUNNEL, BILATERAL Personal history of transient ischemic attack (TIA PRE OP PRE OP Reason for Visit Chest pain Diminished pulses in lower extremity Atherosclerosis of coronary artery of [place] heart without angina pectoris Essential (primary) hypertension Hyperlipidemia H/O coronary artery bypass surgery Chief Complaint DECREASED PEDAL PULS ES CARPAL TUNNEL, BILATERAL Carpal tunnel syndrome, bilateral upper limbs CARPAL TUNNEL, BILATERAL Personal history of transient ischemic attack (TIA PRE OP PRE OP OTHER CHRONIC SINUSITIS Chief Complaint Admit Date 6 M FU April 23, 2024 2:42pm LUMBAR SPINE May 14, 2024 3:13pm RM 2 May 14, 2024 3:34pm E ORDER May 27, 2024 1:14pm SCREEN FOR OSTEOPOROSIS June 11 2:23pm 3 M FU June 13, 2024 2: 47pm Reason for Visit Admit Date Essential (primary) hypertension Novembe r 2023 2:42pm Fatigue April 23, 2024 2:42pm Hyperlipidemia April 23, 2024 2:42pm H/O coronary artery bypass surgery Novem 2023 2:42pm Lumbar scoliosis May 14, 2024 3:13pm Osteopenia determined by x-ray May 14, 2024 3:13pm Other intervertebral disc de generation, lumbar region with discogenic back May 14, 2024 3:13pm Nausea June 13, 2024 2: 47pm Bloating June 13, 2024 2: 47pm Constipation June 13, 2024 2: 47pm Pancreatitis June 13, 2024 2: 47pm Dysphagia August 09, 2024 1:18 pm Chief Complaint Admit Date LUMBAR SPINE May 14, 2024 3:13pm RM 2 May 14, 2024 3:34pm E ORDER May 27, 2024 1:14pm SCREEN FOR OSTEOPOROSIS June 11 2:23pm 3 M FU June 13, 2024 2: 47pm 4 M FU, RS 07/18September 02, 2024 1:0 3pm Reason for Visit Admit Date Lumbar scoliosis May 14, 2024 3:13pm Osteopenia determined by x-ray May 14, 2024 3:13pm Other intervertebral disc de generation, lumbar region with discogenic back May 14, 2024 3:13pm Nausea June 13, 2024 2: 47pm Bloating June 13, 2024 2: 47pm Constipation June 13, 2024 2: 47pm Pancreatitis June 13, 2024 2: 47pm Dysphagia August 09, 2024 1:18 pm Osteoporosis September 02, 2024 1:0 3pm Chronic fatigue September 02, 2024 1:0 3pm Diabetes September 02, 2024 1:0 3pm Essential (primary) hypertension August 052024 1:03pm Hyperlipidemia September 02, 2024 1:0 3pm Obesity September 02, 2024 1:0 3pm Chief Complaint Admit Date 4 M FU, RS 07/18September 02, 2024 1:0 3pm FU October 03, 2024 2:49pm 1 Y FU December 10, 2024 1:55p m Reason for Visit Admit Date Osteoporosis September 02, 2024 1:0 3pm Chronic fatigue September 02, 2024 1:0 3pm Diabetes September 02, 2024 1:0 3pm Essential (primary) hypertension August 052024 1:03pm Hyperlipidemia September 02, 2024 1:0 3pm Obesity September 02, 2024 1:0 3pm Dysphagia October 03, 2024 2:49pm Constipation October 03, 2024 2:49pm Chief Complaint Admit Date 4 M FU, RS 07/18September 02, 2024 1:0 3pm FU October 03, 2024 2:49pm 1 Y FU December 10, 2024 1:55p m SCREENING December 31, 2024 3:18 pm LEFT HAND PAIN December 31, 2024 3:49 pm Reason for Visit Admit Date Osteoporosis September 02, 2024 1:0 3pm Chronic fatigue September 02, 2024 1:0 3pm Diabetes September 02, 2024 1:0 3pm Essential (primary) hypertension August 052024 1:03pm Hyperlipidemia September 02, 2024 1:0 3pm Obesity September 02, 2024 1:0 3pm Dysphagia October 03, 2024 2:49pm Constipation October 03, 2024 2:49pm Essential (primary) hypertension December 1:55pm Fatigue December 10, 2024 1:55p m Hyperlipidemia December 10, 2024 1:55p m H/O coronary artery bypass surgery December 10, 2024 1:55pm Reason for Referral Specialty Diagnoses / Procedures Referred By Contac t Referred To Contact CT IMAGING Diagnoses Former cigarette smoker Procedures CT LUNG SCREEN WO IVCON COMPUTED TOMOGRAPHY THORAX LW DOSE LNG CA SCR Kanika Wright, AUTOMOTIVE ELECTRICIAN.[employer]OKERAGE MANAGER [phone] [facility] [place] [address] Referral ID Status Reason Start Date Expiration Date Visits Requested Visits Authorized [id number] Additional Clinical Info Needed Auto-Generat ed Referral 3 04/12/2024 1 1 Specialty Diagnoses / Procedures Referred By Contac t Referred To Contact CT IMAGING Diagnoses Former smoker Procedures CT LUNG SCREEN WO IVCON COMPUTED TOMOGRAPHY THORAX LW DOSE LNG CA May Jennings, AUTOMOTIVE ELECTRICIAN.CUSTOMS BROKERAGE MANAGER [phone] [facility] [place] [address] Referral ID Status Reason Start Date Expiration Date Visits Requested Visits Authorized [id number] Pending Review Auto-Generat ed Referral 3 05/16/2024 1 1 Specialty Diagnoses / Procedures Referred By Contac t Referred To Contact Diagnoses Cystocele, midline Procedures CONSULT TO URO GYNECOLOGY OFFICE/OUTPATIENT [facility] 60 MINUTES Mae Raya MD [address] [place] [address] Referral ID Status Reason Start Date Expiration Date Visits Requested Visits Authorized [id number] Authorized PCP Requested Referral Auto-Generate d Referral 07/02/2024 07/02/2025 1 1 Additional Source Comments INFORMATION SOURCE (unrecogn ized section and content) DATE CREATED AUTHOR 01/10/2019 [facility] DATE CREATED AUTHOR AUTHOR'S ORGANIZ ATION 05/18/2019 [facility] DATE CREATED AUTHOR AUTHOR'S ORGANIZ ATION 04/03/2020 [facility] DATE CREATED AUTHOR AUTHOR'S ORGANIZ ATION 11/18/2020 [facility] ([place]) DATE CREATED AUTHOR AUTHOR'S ORGANIZ ATION 02/25/2023 [facility] DATE CREATED AUTHOR AUTHOR'S ORGANIZ ATION 07/06/2024 [facility] DATE CREATED AUTHOR AUTHOR'S ORGANIZ ATION 12/28/2024 [facility] Reason for Visit (unrecogniz ed section and content) Reason Comments Cough Facial Pain Reason Comments Shortness of Breath Reason Onset Date Comments Refill Request 10/15/2021 Reason Comments Chart prep Reason Comments Spirometry Specialty Diagnoses / Procedures Referred By Contac t Referred To Contact [facility] Diagnoses Chronic obstructive pulmonary disease, unspecified COPD type (HCC) Procedures SPIROMETRY WITH DILATOR IF OBSTRUCTED BRNCDILAT RSPSE SPMTRY PRE&POST-BRNCDILAT ADMN Gladys Baird MD [address] [place] [address] Res[facility] [place] [address] [place] [address] Referral ID Status Reason Start Date Expiration Date V isits Requested Visits Authorized [id number] Closed Auto-Generate d Referral 02/09/2023 03/10/2024 1 1 Specialty Diagnoses / Procedures Referred By Contac t Referred To Contact [facility] Diagnoses Chronic obstructive pulmonary disease, unspecified COPD type (HCC) Procedures LUNG DIFFUSION CAPACITY (DLCO) DIFFUSING CAPACITY Gladys Baird MD [address] [place] [address] [place] [address] Referral ID Status Reason Start Date Expiration Date V isits Requested Visits Authorized [id number] Closed Auto-Generate d Referral 02/09/2023 03/10/2024 1 1 Reason Comments COPD Reason Comments New Patient LCS Reason Comments New Bilateral hand painX ray today - 03/09/2023 Pain Bilateral hand painX ray today - 03/09/2023 New Pain Reason Comments Radiology CT Specialty Diagnoses / Procedures Referred By Contac t Referred To Contact CT IMAGING Diagnoses Former cigarette smoker Procedures CT LUNG SCREEN WO IVCON COMPUTED TOMOGRAPHY THORAX LW DOSE LNG CA SCR Jose- Kanika Del Cid, AUTOMOTIVE ELECTRICIAN.CUSTOMS BROKERAGE MANAGER [address] [place] [address] [address] [facility] [place] [address] Referral ID Status Reason Start Date Expiration Date V isits Requested Visits Authorized [id number] Closed Auto-Generate d Referral 03/24/2023 06/21/2023 1 1 Reason Comments Refill Request Reason Comments New Patient Prolapse Reason Comments Prolapse Reason Comments Results Source Comments (unrecognize d section and content) In the event this informatio n is protected by the Federal Confidentiality of Alcohol and Drug Abuse Patient Records regulations: The Federal rules restrict any use of the information to criminally investigate or prosecute any alcohol or drug abuse patient.[facility] the event this information is protected by the Federal Confidentiality of Alcohol and Drug Abuse Patient Records regulations: The Federal rules restrict any use of the information to criminally investigate or prosecute any alcohol or drug abuse patient.[facility] the event this information is protected by the Federal Confidentiality of Alcohol and Drug Abuse Patient Records regulations: The Federal rules restrict any use of the information to criminally investigate or prosecute any alcohol or drug abuse patient.[facility] CampusIn the event this information is protected by the Federal Confidentiality of Alcohol and Drug Abuse Patient Records regulations: The Federal rules restrict any use of the information to criminally investigate or prosecute any alcohol or drug abuse patient.[facility] CampusIn the event this information is protected by the Federal Confidentiality of Alcohol and Drug Abuse Patient Records regulations: The Federal rules restrict any use of the information to criminally investigate or prosecute any alcohol or drug abuse patient.[facility] CampusIn the event this information is protected by the Federal Confidentiality of Alcohol and Drug Abuse Patient Records regulations: The Federal rules restrict any use of the information to criminally investigate or prosecute any alcohol or drug abuse patient.[facility] CampusIn the event this information is protected by the Federal Confidentiality of Alcohol and Drug Abuse Patient Records regulations: The Federal rules restrict any use of the information to criminally investigate or prosecute any alcohol or drug abuse patient.[facility] CampusIn the event this information is protected by the Federal Confidentiality of Alcohol and Drug Abuse Patient Records regulations: The Federal rules restrict any use of the information to criminally investigate or prosecute any alcohol or drug abuse patient.[facility] CampusIn the event this information is protected by the Federal Confidentiality of Alcohol and Drug Abuse Patient Records regulations: The Federal rules restrict any use of the information to criminally investigate or prosecute any alcohol or drug abuse patient.[facility] CampusIn the event this information is protected by the Federal Confidentiality of Alcohol and Drug Abuse Patient Records regulations: The Federal rules restrict any use of the information to criminally investigate or prosecute any alcohol or drug abuse patient.[facility] CampusIn the event this information is protected by the Federal Confidentiality of Alcohol and Drug Abuse Patient Records regulations: The Federal rules restrict any use of the information to criminally investigate or prosecute any alcohol or drug abuse patient.[facility] CampusIn the event this information is protected by the Federal Confidentiality of Alcohol and Drug Abuse Patient Records regulations: The Federal rules restrict any use of the information to criminally investigate or prosecute any alcohol or drug abuse patient.[facility] CampusIn the event this information is protected by the Federal Confidentiality of Alcohol and Drug Abuse Patient Records regulations: The Federal rules restrict any use of the information to criminally investigate or prosecute any alcohol or drug abuse patient.[facility] CampusIn the event this information is protected by the Federal Confidentiality of Alcohol and Drug Abuse Patient Records regulations: The Federal rules restrict any use of the information to criminally investigate or prosecute any alcohol or drug abuse patient.[facility] CampusIn the event this information is protected by the Federal Confidentiality of Alcohol and Drug Abuse Patient Records regulations: The Federal rules restrict any use of the information to criminally investigate or prosecute any alcohol or drug abuse patient.[facility] CampusIn the event this information is protected by the Federal Confidentiality of Alcohol and Drug Abuse Patient Records regulations: The Federal rules restrict any use of the information to criminally investigate or prosecute any alcohol or drug abuse patient.[facility] CampusIn the event this information is protected by the Federal Confidentiality of Alcohol and Drug Abuse Patient Records regulations: The Federal rules restrict any use of the information to criminally investigate or prosecute any alcohol or drug abuse patient.[facility] Care Teams (unrecognized sec tion and content) Senior Account Director Relationship Specialty Start Date End Date Chris More MD [address] [facility] [address] [place], [place] [id number] Physician Cardiology 08/11/18 Rajan Marroquin MD [address] [place] [address] Consulting Pulmonary and Critical Care Medicine 11/26/19 Team Status: Active Member Role Status Dates Susan Teague Family Provider Active Dr. Taras Green MD Primary Care Provider Active Team Status: Inactive Member Role Status Dates Dr. Taras Green MD Primary Care Provider, Referring Provider Active May Jacobs [employer]OR [employer] GENERATOR ASSEMBLER, [employer]OR [employer] GENERATOR ASSEMBLER-C Attending Provider Active Team Status: Active Member Role Status Dates Dr. Taras Green MD Primary Care Provider Active Dr. Castro Browne , EMILY Referring Provider, Other Pro vider Active Dr. Haja Islas DO Attending Provider Active Team Status: Active Member Role Status Dates Dr. Taras Green MD Primary Care Provider, Referring Provider Active Dr. Philip Drummond DO Attending Provider, Other Prov ider Active Team Status: Inactive Member Role Status Dates Dr. Taras Green MD Primary Care Provider Active Dr. Castro Browne DPM Attending Provider Active Team Status: Inactive Member Role Status Dates Dr. Taras Green MD Primary Care Provider, Attending Provider Active Team Status: Inactive Member Role Status Dates Dr. Taras Green MD Primary Care Provider Active May Jacobs [employer]OR AND GENERATOR ASSEMBLER, MOTOR AND GENERATOR ASSEMBLER-C Attending Provider, Referring Alex mayfield Active Team Status: Inactive Member Role Status Dates Dr. Taras Green MD Primary Care Provider, Referring Provider Active Dr. Philip Drummond DO Attending Provider Active Team Status: Inactive Member Role Status Dates Dr. Taras Green MD Primary Care Provider, Referring Provider Active Clif Sutton PA, PA Attending Provider Active Team Status: Inactive Member Role Status Dates Dr. Taras Green MD Primary Care Provider Active Clif Sutton PA, PA Attending Provider Active Team Status: Active Member Role Status Dates Susan MURPHY Family Provider Active Dr. Taras Green MD Primary Care Provider Active Team Status: Inactive Member Role Status Dates Dr. Taras Green MD Primary Care Provi keenan, Attending Provider, Referring Provider Active Team Status: Inactive Member Role Status Dates Dr. Taras Green MD Primary Care Provider, Referring Provider Active Dr. Abdelrahman Saldana MD Active May Jacobs [employer]OR [employer] GENERATOR ASSEMBLER, MOTOR AND GENERATOR ASSEMBLER-C Attending Provider Active Team Status: Inactive Member Role Status Dates Dr. Taras Green MD Primary Care Provider Active Dr. Philip Drummond DO Attending Provider, Referring Provider Active Team Status: Inactive Member Role Status Dates Dr. Taras Green MD Primary Care Provider Active CARLA HameedC Attending Provider Active Team Status: Inactive Member Role Status Dates Dr. Taras Green MD Primary Care Provider, Attending Provider Active Dr. Philip Drummond DO Other Provider Active Team Status: Inactive Member Role Status Dates Dr. Taras Green MD Primary Care Provider Active GABY Hameed Attending Provider, Referring Provi keenna Active Dr. Philip Drummond DO Other Provider Active Team Status: Inactive Member Role Status Dates Dr. Taras Green MD Primary Care Provider, Referring Provider Active Dr. Beck Finley MD Attending Provider Active Team Status: Inactive Member Role Status Dates Dr. Taras Green MD Primary Care Provider Active Dr. Beck Finley MD Attending Provider, Referring Alex mayfield Active Team Status: Active Member Role Status Dates Dr. Taras Green MD Primary Care Provider, Attending Provider Active Senior Account Director Relationship Specialty Start Date End Date Chris More MD [address] [place] [address] (Fax) Physician Cardiology 08/11/18 Rajan Marroquin MD [address] [address] Consulting Pulmonary and Critical Care Medicine 11/26/19 Senior Account Director Relationship Specialty Start Date End Date Peter Taras Constantin [address] [place] [address] PCP - General Gerontology 02/21/23 Chris More MD [address] [place] [phone] (Fax) Physician Cardiology 08/11/18 Rajan Marroquin MD [address] [place], [place] [address] Consulting Pulmonary and Critical Care Medicine 11/26/19 Senior Account Director Relationship Specialty Start Date End Date PeterTaras Constantin [address] [place] [address] PCP - General Gerontology 02/21/23 Chris More MD [address] [place] [address] (Fax) Physician Cardiology 08/11/18 Rajan Marroquin MD [address] [place] [address] Consulting Pulmonary and Critical Care Medicine 11/26/19 Senior Account Director Relationship Specialty Start Date End Date Taras Green Chi [address] [place] [address] PCP - General Gerontology 02/21/23 Chris More MD [address] [place] [address] Physician Cardiology 08/11/18 Rajan Marroquin MD [address] [place], [place] [address] Consulting Pulmonary and Critical Care Medicine 11/26/19 Senior Account Director Relationship Specialty Start Date End Date Taras Green Chi [address] [place] [address] PCP - General Gerontology 02/21/23 Chris More MD [address] [place] [address] Physician Cardiology 08/11/18 Gladys Baird MD [address] [place] [address] Pulmonary and Critical Care Medicine 03/14/23 Team Status: Active Member Role Status Dates Dr. Taras Green MD Primary Care Provider, Referring Provider Active Dr. Princess Lackey MD Attending Provider Activ e Team Status: Inactive Member Role Status Dates Dr. Taras Green MD Primary Care Provider Active Dr. Deshawn Camarena MD Attending Provider, Refe rring Provider Active Team Status: Active Member Role Status Dates Dr. Taras Green MD Primary Care Provider Active Miriam House [employer]OR [employer] GENERATOR ASSEMBLER, MOTOR AND GENERATOR ASSEMBLER-C Attending Provider, Referri ng Provider Active Team Status: Inactive Member Role Status Dates Dr. Taras Green MD Primary Care Provider Active Miriam House [employer]OR AND GENERATOR ASSEMBLER, MOTOR AND GENERATOR ASSEMBLER-C Attending Provider, Referri ng Provider Active Senior Account Director Relationship Specialty Start Date End Date Taras Green Chi [address] [place] [address] PCP - General Gerontology 02/21/23 Chris More MD [address] [place] [address] Physician Cardiology 08/11/18 Rajan Marroquin MD [address] [place] [address] Consulting Pulmonary and Critical Care Medicine 11/26/19 03/13/23 Senior Account Director Relationship Specialty Start Date End Date Taras Green Chi [address] [place] [address] PCP - General Gerontology 02/21/23 Chris More MD [address] [place] [address] Physician Cardiology 08/11/18 Rajan Marroquin MD [address] [place], [place] [address] Consulting Pulmonary and Critical Care Medicine 11/26/19 03/13/23 Senior Account Director Relationship Specialty Start Date End Date Taras Green Chi [address] [place] [address] PCP - General Gerontology 02/21/23 Chris More MD [address] [place] [place] [address] Physician Cardiology 08/11/18 Gladys Baird MD [address] [place] [address] Pulmonary and Critical Care Medicine 03/14/23 Senior Account Director Relationship Specialty Start Date End Date Taras Green Chi [address] [place] [address] PCP - General Gerontology 02/21/23 Chris More MD [address] [place] [address] Physician Cardiology 08/11/18 Gladys Baird MD [address] [place] [address] Pulmonary and Critical Care Medicine 03/14/23 Senior Account Director Relationship Specialty Start Date End Date Taras Green Chi [address] [place] [address] PCP - General Gerontology 02/21/23 Chris More MD [address] [place] [address] Physician Cardiology 08/11/18 Gladys Baird MD [address] [place] [address] Pulmonary and Critical Care Medicine 03/14/23 Team Status: Inactive Member Role Status Dates Dr. Taras Green MD Primary Care Provider, Referring Provider Active Marely Taylor PA, PA Attending Provider Active Team Status: Active Member Role Status Dates Dr. Taras Green MD Primary Care Provider Active Dr. Moy Ozuna MD Attending Provider Active Team Status: Active Member Role Status Dates Dr. Taras Green MD Primary Care Provider Active Dr. Jonathon Carpio MD Referring Provider, Other Prov ider Active Dr. Malcolm Truong MD Attending Provider Active Team Status: Active Member Role Status Dates Dr. Taras Green MD Primary Care Provider Active Marely Taylor PA, PA Other Provider Active Dr. Jonathon Carpio MD Referring Provider, Other Prov ider Active Dr. Abdelrahman Saldana MD Attending Provider Active Team Status: Inactive Member Role Status Dates Dr. Taras Green MD Primary Care Provider Active Marely Taylor PA, PA Other Provider Active Dr. Jonathon Carpio MD Attending Provider, Referring Provider Active Team Status: Inactive Member Role Status Dates Dr. Taras Green MD Primary Care Provider Active Marely Taylor PA, PA Attending Provider, Referr ing Provider Active Team Status: Active Member Role Status Dates Dr. Taras Green MD Primary Care Provider Active Dr. Moy Ozuna MD Attending Provider Active Marely Taylor PA, PA Referring Provider Active Senior Account Director Relationship Specialty Start Date End Date Taras Green Chi [address] [place] [address] PCP - General Gerontology 02/21/23 Chris More MD [address] [place] [address] Physician Cardiology 08/11/18 Gladys Baird MD [address] [place] [address] Pulmonary and Critical Care Medicine 03/14/23 Team Status: Active Member Role Status Dates Susan MURPHY Family Provider Active Dr. Williams Starr DO Primary Care Provider Active Team Status: Active Member Role Status Dates Dr. Williams Starr DO Primary Care Provider Active Dr. Princess Lackey MD Attending Provider Activ e Dr. Deshawn Camarena MD Referring Provider Activ e Team Status: Inactive Member Role Status Dates Dr. Deshawn Camarena MD Attending Provider, Refe rring Provider Active Dr. Williams Starr DO Primary Care Provider Active Team Status: Inactive Member Role Status Dates Dr. Williams Starr DO Primary Care Provider Active Dr. Deshawn Camarena MD Attending Provider, Refe janetteing Provider Active Senior Account Director Relationship Specialty Start Date End Date Taras Green Chi [address] [place] [address] PCP - General Gerontology 02/21/23 Chris More MD [address] [place] [address] Physician Cardiology 08/11/18 Gladys Baird MD [address] [place] [address] Pulmonary and Critical Care Medicine 03/14/23 Senior Account Director Relationship Specialty Start Date End Date Taras Green Chi [address] [place] [address] PCP - General Gerontology 02/21/23 Chris More MD [address] [place] [address] Physician Cardiology 08/11/18 Gladys aBird MD [address] [facility] [place] [address] Pulmonary and Critical Care Medicine 03/14/23 Senior Account Director Relationship Specialty Start Date End Date Taras Green Chi [address] [place] [address] PCP - General Gerontology 02/21/23 Chris More MD [address] [place] [address] Physician Cardiology 08/11/18 Gladys Baird MD [address] [place] [address] Pulmonary and Critical Care Medicine 03/14/23 Team Status: Active Member Role Status Dates Ximena Sylvester , MOTOR AND GENERATOR ASSEMBLER-C Primary Care Provider Active Team Status: Inactive Member Role Status Dates Dr. Williams Starr DO Referring Provider Active Start: April 23, 2024 End: April 23, 2024 Marely Taylor PA, PA Attending Provider Active Start: April 23, 2024 End: April 23, 2024 Ximena Sylvester , MOTOR AND GENERATOR ASSEMBLER-C Primary Care Provider Active Start: April 23, 2024 End: April 23, 2024 Team Status: Inactive Member Role Status Dates Ximena Sylvester MOTOR AND GENERATOR ASSEMBLER-C Primary Care Provider Active Start: May 14, 2024 End: May 14, 2024 Ximena Sylvester , MOTOR AND GENERATOR ASSEMBLER-C Referring Provider Active St art: May 14, 2024 End: May 14, 2024 Dr. Brendon Orozco MD Attending Provider Active Start: May 14, 2024 End: May 14, 2024 Team Status: Inactive Member Role Status Dates Ximena Sylvester , MOTOR AND GENERATOR ASSEMBLER-C Primary Care Provider Active Start: May 14, 2024 End: May 14, 2024 Dr. Abdelrahman Saldana MD Attending Provider Active S tart: May 14, 2024 End: May 14, 2024 Team Status: Inactive Member Role Status Dates Ximena Sylvester MOTOR AND GENERATOR ASSEMBLER-C Primary Care Provider Active Start: May 27, 2024 End: May 27, 2024 Tere Mckenzie MOTOR AND GENERATOR ASSEMBLER-C Attending Provider Active Start: May 27, 2024 End: May 27, 2024 Tere Mckenzie MOTOR AND GENERATOR ASSEMBLER-C Referring Provider Active Start: May 27, 2024 End: May 27, 2024 Team Status: Inactive Member Role Status Dates Ximena Sylvester , MOTOR AND GENERATOR ASSEMBLER-C Primary Care Provider Active Start: June 11, 2024 End: June 11, 2024 Ximena Sylvester MOTOR AND GENERATOR ASSEMBLER-C Attending Provider Active St art: June 11, 2024 End: June 11, 2024 Ximena Sylvester , MOTOR AND GENERATOR ASSEMBLER-C Referring Provider Active St art: June 11, 2024 End: June 11, 2024 Team Status: Inactive Member Role Status Dates Ximena Omero , MOTOR AND GENERATOR ASSEMBLER-C Primary Care Provider Active Start: June 13, 2024 End: June 13, 2024 Ximena Sylvester , MOTOR AND GENERATOR ASSEMBLER-C Referring Provider Active St art: June 13, 2024 End: June 13, 2024 Dr. Philip Drummond , Attending Provider Active Start: June 13, 2024 End: June 13, 2024 Team Status: Inactive Member Role Status Dates Ximena Sylvester , MOTOR AND GENERATOR ASSEMBLER-C Primary Care Provider Active Start: August 09, 2024 End: August 09, 2024 Ximena Sylvester , MOTOR AND GENERATOR ASSEMBLER-C Referring Provider Active St art: August 09, 2024 End: August 09, 2024 Dr. Philip Drummond , Attending Provider Active Start: August 09, 2024 End: August 09, 2024 Team Status: Active Member Role Status Dates Ximena Sylvester , MOTOR AND GENERATOR ASSEMBLER-C Primary Care Provider Active Start: August 09, 2024 Ximena Sylvester , MOTOR AND GENERATOR ASSEMBLER-C Referring Provider Active St art: August 09, 2024 Dr. Philip Drummond , Attending Provider Active Start: August 09, 2024 Dr. Philip Drummond , Other Provider Active St art: August 09, 2024 Team Status: Inactive Member Role Status Dates Ximena Sylvester , MOTOR AND GENERATOR ASSEMBLER-C Primary Care Provider Active Start: September 02, 2024 End: September 02, 2024 Ximena Sylvester MOTOR AND GENERATOR ASSEMBLER-C Referring Provider Active St art: September 02, 2024 End: September 02, 2024 Tere Mckenzie NP-C Attending Provider Active Start: September 02, 2024 End: September 02, 2024 Team Status: Inactive Member Role Status Dates Ximena Sylvester MOTOR AND GENERATOR ASSEMBLER-C Primary Care Provider Active Start: September 03, 2024 End: September 03, 2024 Tere Mckenzie MOTOR AND GENERATOR ASSEMBLER-C Attending Provider Active Start: September 03, 2024 End: September 03, 2024 Team Status: Active Member Role/Relationship Status Dates Ximena Sylvester MOTOR AND GENERATOR ASSEMBLER-C Primary Care Provider Active Team Status: Inactive Member Role/Relationship Status Dates Ximena Sylvester MOTOR AND GENERATOR ASSEMBLER-C Primary Care Provider Active Start: September 02, 2024 End: September 02, 2024 Ximena Sylvester MOTOR AND GENERATOR ASSEMBLER-C Referring Provider Active St art: September 02, 2024 End: September 02, 2024 Tere Mckenzie NP-C Attending Provider Active Start: September 02, 2024 End: September 02, 2024 Team Status: Inactive Member Role/Relationship Status Dates Ximena Omero , MOTOR AND GENERATOR ASSEMBLER-C Primary Care Provider Active Start: September 03, 2024 End: September 03, 2024 Tere Mckenzie MOTOR AND GENERATOR ASSEMBLER-C Attending Provider Active Start: September 03, 2024 End: September 03, 2024 Team Status: Inactive Member Role/Relationship Status Dates Ximena Omero , MOTOR AND GENERATOR ASSEMBLER-C Primary Care Provider Active Start: October 03, 2024 End: October 03, 2024 Ximena Sylvester , MOTOR AND GENERATOR ASSEMBLER-C Referring Provider Active St art: October 03, 2024 End: October 03, 2024 THERESA Camp Attending Provider Active Start: October 03, 2024 End: October 03, 2024 Team Status: Inactive Member Role/Relationship Status Dates Dr. Williams Starr DO Referring Provider Active Start: December 10, 2024 End: December 10, 2024 Dr. Abdelrahman Saldana MD Attending Provider Active S tart: December 10, 2024 End: December 10, 2024 Ximena Omero , MOTOR AND GENERATOR ASSEMBLER-C Primary Care Provider Active Start: December 10, 2024 End: December 10, 2024 Team Status: Inactive Member Role/Relationship Status Dates Ximena Omero , MOTOR AND GENERATOR ASSEMBLER-C Primary Care Provider Active Start: December 03, 2024 Dr. Geri Mckeon MD Attending Provider Active Start: December 03, 2024 Team Status: Inactive Member Role/Relationship Status Dates Dr. Williams Starr DO Referring Provider Active Start: December 10, 2024 End: December 10, 2024 Dr. Abdelrahman Saldana MD Attending Provider Active S tart: December 10, 2024 End: December 10, 2024 Ximena Omero , MOTOR AND GENERATOR ASSEMBLER-C Primary Care Provider Active Start: December 10, 2024 End: December 10, 2024 Team Status: Active Member Role/Relationship Status Dates Ximena Omero , MOTOR AND GENERATOR ASSEMBLER-C Primary Care Provider Active Start: December 31, 2024 Ximena Sylvester , MOTOR AND GENERATOR ASSEMBLER-C Attending Provider Active St art: December 31, 2024 Ximena Omero , MOTOR AND GENERATOR ASSEMBLER-C Referring Provider Active St art: December 31, 2024 Team Status: Inactive Member Role/Relationship Status Dates Ximena Omero , MOTOR AND GENERATOR ASSEMBLER-C Primary Care Provider Active Start: December 31, 2024 End: December 31, 2024 Dr. Marleny Godman , DO Emergency Provider Active Start: December 31, 2024 End: December 31, 2024 Goals (unrecognized section and content) Goals may be documented in a n alternate sectionGoals may be documented in an alternate sectionGoals may be documented in an alternate sectionGoals may be documented in an alternate sectionGoals may be documented in an alternate sectionGoals may be documented in an alternate sectionGoals may be documented in an alternate sectionGoals may be documented in an alternate sectionGoals may be documented in an alternate sectionGoals may be documented in an alternate sectionGoals may be documented in an alternate sectionGoals may be documented in an alternate sectionGoals may be documented in an alternate sectionGoals may be documented in an alternate sectionGoals may be documented in an alternate sectionGoals may be documented in an alternate sectionGoals may be documented in an alternate sectionGoals may be documented in an alternate sectionGoals may be documented in an alternate sectionGoals may be documented in an alternate sectionGoals may be documented in an alternate sectionGoals may be documented in an alternate section FOR RECORDS PERTAINING TO PATIENTS WHO ARE OR HAVE BEEN ENROLLED IN A CHEMICAL DEPENDENCY/SUBSTANCEABUSE PROGRAM, SOME INFORMATION MAY BE OMITTED. This clinical summary was aggregated from multiple sources. Caution should be exercised in using it in the provision of clinical care. This summary normalizes information from multiple sources, and as a consequence, information in this document may materially change the coding, format and clinical context of patient data. In addition, data may be omitted in some cases. CLINICAL DECISIONS SHOULD BE BASED ON THE PRIMARY CLINICAL RECORDS. [facility] [employer] [facility]. provides no warranty or guarantee of the accuracy or completeness of information in this document.
== END | disposition home or self-care (01) ==
PROVIDERS: PCP Nurse Practitioner Family; Referring Provider Nurse Practitioner Family; Visit Provider Nurse Practitioner Family
DX: Z12.31 Encounter for screening mammogram for malignant neoplasm of breast (principal)
CPT/HCPCS: 77063; 77067

== ENCOUNTER 2025-01-23 22:36 | Emergency (ER) | payer MEDICARE, SELFPAY ==
[2025-01-23 22:37] VITALS: BP 151/69; PULSE 76; RESP 18; TEMP 37; O2SAT 98
[2025-01-23 22:58] VITALS: BMI 36.1
--- NOTE | 2025-01-23 23:02 | EKG12_ITS ---
Test Reason : CP Blood Pressure : */* mmHG Vent. Rate : 77 BPM Atrial Rate : 77 BPM P-R Int : 122 ms QRS Dur : 82 ms QT Int : 396 ms P-R-T Axes : 67 52 56 degrees QTcB Int : 448 ms Normal sinus rhythm with sinus arrhythmia Normal ECG Confirmed by LE MCMANUS, REX ([id number]), senior editor ELISEO GAVIRIA ([id number]) on 01/27/2025 7:28:55 AM Referred By: ER Confirmed By: REX LUJAN MD
--- OUTSIDE RECORDS SUMMARY | 2025-01-23 23:13 | XMS RPT_ITS | CCD ---
Author Organization [facility] Care Team Providers Care Evaluation Analyst Name Role Phone Susan Teague Primary Care Provider Argenis MCMANUS, Chris Baker Unavailable Lopez MCMANUS, Thee Unavailable 1([facility])[phone] Trinity Baird Primary Care Provider 1([facility] )[phone] Dr. Trinity Baird Referring Provider 1([facility])[phone] Reynaldo FAMILY COUNSELOR, FAMILY COUNSELOR-C May Attending Provider Dr. Tarsa Green Chi Primary Care Provider 1([facility])[phone] Dr. Abdelrahman Saldana Attending Provider 1([facility])[phone] Reynaldo FAMILY COUNSELOR, FAMILY COUNSELOR-C May Referring Provider Reynaldo DESHPANDE, FAMILY COUNSELOR-C May Other Provider 1([facility])[phone] Dr. Taras Green Chi Referring Provider 1([facility])[phone] THERESA Muhammad Attending Provider 1([facility])[phone] THERESA Hoang Attending Provider 1([facility])[phone] Dr. Trinity Baird Referring Provider 1([facility])[phone] Reynaldo DESHPANDE NP-C May Attending Provider Dr. Taras Green Chi Primary Care Provider 1([facility])[phone] Dr. Abdelrahman Saldana Attending Provider 1([facility])[phone] Friend, Dr. Palacios Attending Provider 1([facility])[phone] Dr. Taras Green Chi Primary Care Provider 1([facility])[phone] Dr. Taras Green Chi Referring Provider 1([facility])[phone] THERESA Muhammad Attending Provider 1([facility])[phone] Dr. Abdelrahman Saldana Attending Provider 1([facility])-[phone] Peter, Dr. Taras Killian Primary Care Provider 1([facility])[phone] Peter, Dr. Taras Killian Referring Provider 1([facility])[phone] THERESA Muhammad Attending Provider 1([facility])[phone] Dr. Abdelrahman Saldana Attending Provider 1([facility])-[phone] Castro Browne Other Provider 1([facility])[phone] Haja Islas Attending Provider Dr. Castro Browne Referring Provider 1([facility])[phone] Reynaldo DESHPANDE, JERAMY-Jose Olvera Attending Provider Peter, Dr. Taras Killian Primary Care Provider 1([facility])[phone] Peter, Dr. Taras Killian Referring Provider 1([facility])[phone] Friend[address] Palacios Attending Provider 1([facility])76 Friend, Dr. Palacios Other Provider 1([facility])-[phone] THERESA Hoang Attending Provider 1([facility])[phone] Peter, Dr. Taras Killian Primary Care Provider 1([facility])[phone] Peter, Dr. Taras Killian Primary Care Provider 1([facility])[phone] Peter, Dr. Taras Killian Referring Provider 1([facility])[phone] Friend[address] Palacios Attending Provider 1([facility]) -[phone] FriendDr. Palacios Other Provider 1([facility])-[phone] THERESA Hoang Attending Provider 1([facility])[phone] Peter, Dr. Taras Killian Primary Care Provider 1([facility])[phone] Peter, Dr. Taras Killian Referring Provider 1([facility])[phone] Reynaldo DESHPANDE, JREAMY-Jose Olvera Attending Provider Dr. Philip Drummond Attending Provider 1([facility]) [phone] Dr. Beck Finley Attending Provider 1([facility])[phone] Chris More MD Unavailable [phone] Thee Marroquin MD Unavailable Peter, Taras Killian Primary Care Provider PROVIDER, UNKNOWN Referring Unavailable Gladys Baird MD Unavailable Peter, Dr. Taras Killian Primary Care Provider Peter, Dr. Taras Killian Referring Provider Dr. Princess Lackey Attending Provider Thee Marroquin MD Unavailable Peter, Dr. Taras Killian Primary Care Provider Peter, Dr. Taras Killian Referring Provider Hoda, Dr. Palacios Attending Provider [place] THERESA, [place] Marely Ramesh Attending Provider Dr. Moy Ozuna Attending Provider [phone] Jonathon Carpio Referring Provider Dr. Jonathon Carpio Other Provider Dr. Malcolm Truong Attending Provider [place] TH[place]ESA, [place] Marely Ramesh Other Provider [phone] Dr. Abdelrahman Saldana Attending Provider [phone] Taylor [place]ES[place], [place] Marely Ramesh Referring Provider Peter, Dr. Taras Killian Primary Care Provider Peter, Dr. Taras Killian Referring Provider Dr. Williams Starr Primary Care Provider Dr. Princess Lackey Attending Provider Dr. Deshawn Camarena Referring Provider Peter, Dr. Taras Killian Primary Care Provider Dr. Moy Ozuna Attending Provider [phone] Taylor [place], [place] Marely Ramesh Referring Provider Dr. Jonathon Carpio Referring Provider Dr. Jonathon Carpio Other Provider Dr. Malcolm Truong Attending Provider THERESA Rosario Other Provider Dr. Abdelarhman Saldana Attending Provider Dr. Williams Starr Primary Care Provider [phone] Dr. Princess Lackey Attending Provider Dr. Deshawn Camarena Referring Provider Peter, Taras Chi Primary Care Provider MAE RAYA Attending Unavailable PETER, TARAS CHI Primary Care Unavailable PETER, TARAS CHI Primary Care Unavailable AGUSTINA HIRSCH Attending Unavailable Dr. Williams Starr DO Referring Provider [phone] Marely Rosario Attending Provider Omero FAMILY COUNSELOR-C, Ximena Primary Care Provider Omero FAMILY COUNSELOR-C, Ximena Referring Provider Dr. Brendon Orozco MD Attending Provider Dr. Abdelrahman Saldana MD Attending Provider Jonah FAMILY COUNSELOR-C, Tere Attending Provider Jonah FAMILY COUNSELOR-C, Tere Referring Provider Omero FAMILY COUNSELOR-C, Ximena Attending Provider Dr. Philip Drummond DO Attending Provider Dr. Philip Drummond DO Other Provider Omero FAMILY COUNSELOR-C, Ximena Primary Care Provider Omero FAMILY COUNSELOR-C, Ximena Primary Care Provider Omero FAMILY COUNSELOR-C, Ximena Referring Provider Jonah FAMILY COUNSELOR-CTere Attending Provider Sally Flores Attending Provider Dr. Williams Starr DO Referring Provider Dr. Abdelrahman Saldana MD Attending Provider Dr. Geri Mckeon MD Attending Provider Omero FAMILY COUNSELOR-C, Ximena Attending Provider Dr. Marleny Davis DO Emergency Provider Omero FAMILY COUNSELOR-C, Ximena Primary Care Provider Omero FAMILY COUNSELOR-C, Ximena Referring Provider Dr. Marleny Davis DO Attending Provider Mike MCMANUS, Dr. Nevarez Attending Provider Marely Rosario Attending Provider Omero, Ximena Primary Care Unavailable Omero, Ximena Referring Unavailable Philip Drummond Attending Unavailable Friend, Philip Consulting Unavailable Ro, Williams Referring Unavailable Omero, Ximena Primary Care Unavailable Abdelrahman Saldana Attending Unavailable Omero, Ximena Referring Unavailable Omero, Ximena Primary Care Unavailable Omero, Ximena Attending Unavailable Ro, Williams Referring Unavailable Omero, Ximena Primary Care Unavailable Marely Rosario Attending Unavail able Omero, Ximena Referring Unavailable Omero, Ximena Primary Care Unavailable Brendon Orozco Attending Unavailable Omero, Ximena Referring Unavailable Marely Rosario Attending Unavail able Omero, Ximena Primary Care Unavailable Omero, Ximena Referring Unavailable Sally Damon Attending Unavailable Omero, Ximena Primary Care Unavailable Omero, Ximena Primary Care Unavailable Omero, Ximena Referring Unavailable FriendPhilip Attending Unavailable Omero, Ximena Primary Care Unavailable JonahTere Referring Unavailable Tere Mckenzie Attending Unavailable Omero, Ximena Primary Care Unavailable Omero, Ximena Referring Unavailable Omero, Ximena Attending Unavailable Omero, Ximena Primary Care Unavailable Marleny Davis Attending Unavailable Omero, Ximena Primary Care Unavailable Tere Mckenzie Attending Unavailable Omero, Ximena Referring Unavailable Omero, Ximena Attending Unavailable Omero, Ximena Primary Care Unavailable Omero, Ximena Referring Unavailable Omero, Ximena Primary Care Unavailable Omero, Ximena Attending Unavailable Omero, Ximena Primary Care Unavailable Abdelrahman Saldana Attending Unavailable Omero, Ximena Primary Care Unavailable Omero, Ximena Referring Unavailable FriendEugeniePhilip Attending Unavailable Omero, Ximena Primary Care Unavailable Omero, Ximena Referring Unavailable Tere Mckenzie Attending Unavailable Omero, Ximena Primary Care Unavailable Omero, Ximena Referring Unavailable Sally Damon Attending Unavailable Omero, Ximena Referring Unavailable AtaSally yoon Attending Unavailable Omero, Ximena Primary Care Unavailable Omero, Ximena Referring Unavailable Omero, Ximena Primary Care Unavailable Tere Mckenzie Attending Unavailable Allergies Allergy Classification Reported Allergen(s) Allergy Type Date of Onset Reaction(s) Facility (20 sources) Acetaminophen; 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: [ACETAMINOPHEN] Drug Allergy 10-15-19 15 Nausea And Vomiting, GI Upset [place] Comment on above: back pain (3 sources) Angiotensin Converting Enzyme ([place]) Inhibitors Propensity to adverse reactions to drug 01-13-20 15 Other (See Comments) [place] (20 sources) Codeine; 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: [CODEINE] Drug Allergy 05-30-20 12 Other (See Comments), Mental Status Change [place] Comment on above: hallucinate (3 sources) diphenhydrAMINE Drug Allergy 03-02-20 15 Palpitations [place] (20 sources) Metoclopramide Drug Allergy 11-13-19 15 Other (See Comments) [place] Comment on above: seizure (9 sources) Penicillins; 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: [PENICILLINS] Propensity to adverse reactions to drug 05-30-20 12 Swelling [place] (3 sources) Sulfonamides (Antibiotic) Propensity to adverse reactions to drug 11-13-19 15 Swelling [place] (20 sources) Sulfur; 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: [SULFUR] Drug Allergy 05-30-20 12 [place] (19 sources) Metoclopramide; 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: [METOCLOPRAMIDE HCL] Drug Allergy 10-21-19 15 Other: See Comments [facility] (1 source) Penicillins Drug Allergy 05-30-20 12 Swelling [facility] Work Phone: (18 sources) rosuvastatin; 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: [ROSUVASTATIN] Drug Allergy 02-28-20 20 Myalgia [facility] Work Phone: (19 sources) Benadryl Allergy Decongestant; 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: [BENADRYL ALLERGY DECONGESTANT] Propensity to adverse reactions to drug 05-27-20 18 Other: See Comments [facility] (5 sources) Acetaminophen Drug Allergy 10-19-19 Other [facility] Work Phone: (20 sources) diphenhydrAMINE Drug Allergy 10-19-19 Other [facility] Comment on above: severe anxiety (20 sources) Sulfonamides (Antibiotic); 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: [Sulfa (Sulfonamide Antibiotics)] Allergy to substance 10-19-19 Swelling [facility] (20 sources) Penicillins Allergy to substance 12-02-19 [facility] (16 sources) Penicillins Drug Allergy 05-30-20 Swelling [facility] Work Phone: (1 source) Acetaminophen Drug Allergy 01-16-20 25 [facility] (1 source) Codeine Drug Allergy 01-16-20 25 [facility] (1 source) diphenhydrAMINE Drug Allergy 01-16-20 25 [facility] (1 source) Metoclopramide Drug Allergy 01-16-20 25 [facility] (1 source) Penicillins Drug allergy (disorder) 01-16-20 [facility] Medications Current Medications Medication Drug [...] on above: INHALE 2 PUFFS BY MO UT EVERY FOUR HOURS NEEDED FOR SHORTNESS OF [...] 81 MG tablet Active 81 mg PO DAILY@0800 June 14, 2018 1:00am [facility] Comment on above: Take 1 tablet by sweta once daily. Blood Glucose Monitoring Suppl (ACCU-CHEK JANE PLUS) w/Device KIT (3 sources) Start: 01-02-2018 Blood Glucose Monitoring Suppl (ACCU-CHEK JANE PLUS) w/Device KIT Use as directed to check sugars 1 kit 0 01/02/2018 Active Calcium (7 sources) Phosphate Binder, Calcium Start: 10-17-2023 take [...] Start: 01-31-2022 take 1 tablet by sweta once daily Calcium Carbonate-Vit A And D [...] 1,000 UNIT tablet,chewable Discontinued 3000 U PO DAILY@0800 June 14, 2018 1:00am August 27, 2021 11:08am Supplment Start: 06-14-2018 End: 08-27-2021 take 3000 [IU] by mouth once daily Cholecalciferol (Vitamin D3) Discontinued 3000 UNIT PO DAILY@0800 June 14, 2018 1:00am August 27, 2021 11:08am Comment on above: Take 3 tablets by mo [facility] once daily. ciprofloxacin 500 mg oral tablet (20 sources) Quinolone Antimicrobial Start: 11-07-19 take 1 tablet by mouth twice daily Ciprofloxacin Hcl (Cipro) 500 mg tablet Active 500 MG PO TWICE A DAY November 06, 2021 12:58pm Start: 02-19-2021 End: 03-03-2021 take 1 tablet by mouth twice daily Ciprofloxacin Hcl (Cipro) 500 mg tablet Discontinued 500 mg PO TWICE A DAY 14 0 February 19, 2021 12:00am March 03, 2021 2:42pm Start: 06-14-2018 End: 06-19-2018 take 1 tablet by mouth every twelve hours Ciprofloxacin Hcl 500 MG tablet Discontinued 500 mg PO Q12H June 14, 2018 1:00am June 19, 2018 9:50pm UTI citalopram 20 mg oral tablet (20 sources) Serotonin Reuptake Inhibitor Start: 01-14-2025 take 1 tablet by mouth once daily Citalopram 20 mg tablet Active 20 mg PO daily January 14, 2025 12:00am Start: 02-13-2023 citalopram (CE ITA) 20 mg tablet 02/13/2023 Active Start: 08-27-2021 take 1 tablet by sweta once daily Citalopram (Celexa) 10 mg tablet Active 10 MG PO DAILY August 27, 2021 11:10am Start: 08-27-2021 End: 01-14-2025 take 2 tablets by mouth once daily Citalopram (Celexa) 10 mg tablet Discontinued 20 mg PO DAILY August 27, 2021 12:00am January 14, 2025 1:10pm clobetasol propionate 0.0005 mg/mg topical gel (4 sources) Corticosteroid Start: 07-02-2024 Clobetasol Propionate 0.05 % gel Apply to affected area two times a day. 60 g 1 07/02/2024 Active diclofenac sodium 0.01 mg/mg topical gel (17 sources) Nonsteroidal Anti-inflammatory Drug Start: 11-25-2020 diclofenac (VOLTAREN ARTHRITIS PAIN) 1 % topical gel Apply 2 g to affected area four times daily. Use as needed 100 g 11/25/2020 Active Comment on above: Apply 2 g to affecte d area four times daily. Use as needed Elastic Bandages & Supports (WRIST BRACE/LEFT MEDIUM) MISC (3 sources) Start: 02-02-2015 Elastic Bandag es & Supports (WRIST BRACE/LEFT MEDIUM) MISC Indications: Bilateral carpal tunnel syndrome Use as needed 1 each 0 02/02/2015 Active Evolocumab (Repatha Syringe) 140 mg/mL syringe (4 sources) Start: 12-10-2024 Evolocumab (Repatha Syringe) 140 mg/mL syringe Active 140 mg SC every 2 weeks 1 December 10, 2024 12:00am famotidine 40 mg oral [...] 12:00am ferrous fumarate 325 mg oral tablet (7 sources) Start: 03-06-2024 take 1 tablet by [...] 1 tablet by sweta th once daily. 12 hr guaiFENesin 600 mg [...] pen injector (20 sources) Insulin Analog Start: 01-14-2025 Insulin Lispro (Humalog Kwikpen Insulin) 100 unit/mL insulin pen Active 17 U SC before meals January 14, 2025 12:00am Start: 07-23-2019 Insulin Lispro Active 10 UNIT [...] 1:00am June 19, 2018 9:52pm Blood sugar inulin 200 mg / lactobacillus rhamnosus gg [id number] unt oral capsule (3 sources) Start: 04-09-2019 take 1 capsule by mouth once daily lactobacillus (CULTURELLE) CAPS capsule TAKE 1 CAPSULE BY MOUTH DAILY 28 capsule 3 04/09/2019 Active Start: 10-09-2018 take 1 capsule by mo [facility] once daily lactobacillus (CULTURELLE) CAPS capsule Take [...] covered. levocetirizine dihydrochloride 5 mg oral tablet (20 sources) Histamine-1 Receptor Antagonist Start: 023 take 1 tablet by mouth once daily Levocetirizine 5 mg tablet Active 5 mg PO DAILY June 16, 2023 1:00am Comment on above: 5 mg. linaclotide 0.29 mg oral capsule (7 sources) Guanylate Cyclase-C Agonist Start: 025 take 1 capsule by mouth once daily in the morning Linaclotide (Linzess) 290 mcg capsule Active 290 ug PO EVERY MORNING January 14, 2025 12:00am Start: 10-03-2024 End: 01-14-2025 take 1 capsule by mouth once daily in the morning Linaclotide (Linzess) 145 mcg capsule Discontinued 145 ug PO EVERY MORNING 30 October 03, 2024 12:00am January 14, 2025 1:13pm magnesium citrate 58.2 mg/ml oral solution (2 sources) Start: 11-06-2021 Magnesium Citrate Active 300 ML PO DAILY November 06, 2021 12:58pm Drink half a bottle. If no results and 4 hours drink the remainder of the bottle. methylPREDNISolone 4 mg oral tablet (1 source) Corticosteroid Start: 05-01-2019 methylPREDNISolone (MEDROL DOSEPACK) 4 MG tablet Indications: Acute non-recurrent maxillary sinusitis Take by mouth. 1 kit 0 05/01/2019 Active metroNIDAZOLE 500 mg oral tablet (2 sources) Nitroimidazole Antimicrobial Start: 11-06-2021 take 500 mg by mouth every eight hours Metronidazole Active 500 MG PO Q8H 21 7 November 06, 2021 12:58pm Misc. Devices (ROLLER WALKER) MISC (3 sources) Misc. Devices (R GUS WALKER) MISC 1 each by Does not apply route daily 0 Active Nebulizer Accessories kit (17 sources) Start: 10-26-2020 Nebulizer Accessories kit Indications: Chronic bronchitis, unspecified chronic bronchitis type (HCC) , Wheezing Use with home nebulizer for albuterol 1 Each 2 10/26/2020 Active Comment on above: Use with home nebuli zer for albuterol nitroglycerin 0.4 mg sublingual tablet (14 sources) Nitrate Vasodilator Start: 04-12-2023 Nitroglycerin (Nitrostat) 0.4 mg tablet, [...] SL tablet Indications: Coronary artery disease of [place] artery of [place] heart with stable angina pectoris (HCC) Place 1 tablet under the tongue every 5 minutes for a max of 3 doses 25 tablet 5 10/01/2018 Active Tiotropium-Olodaterol (20 sources) Anticholinergic, beta2-Adrenergic Agonist Start: 10-25-2023 Tiotropium-Olodaterol [...] structed once daily. inhale 2 puffs by [facility] daily omeprazole 40 mg delayed release oral [...] ACID Start: 10-09-2018 take 2 tablets by [facility] once daily omeprazole 20 MG EC tablet Take 2 tablets by mouth daily 30 tablet 3 10/09/2018 Active Comment on above: Take 1 capsule by [facility] twice daily. ondansetron 4 mg oral tablet (20 sources) Serotonin-3 Receptor Antagonist Start: 1 take 1 tablet by mouth every eight hours as needed ondansetron (ZOFRAN) 4 mg tablet Take 1 tablet by mouth every 8 hours as needed. 24 tablet 1 03/26/2021 Active Start: 10-09-2018 take 1 tablet by [facility] every eight hours as needed for nausea [...] Comment on above: Take 1 tablet by [facility] every 8 hours as needed. 24 [...] Active Start: 01-07-2019 take 1 tablet by [facility] once daily oxybutynin (DITROPAN) 5 MG tablet [...] g 11 09/26/2023 Active polyethylene glycol 3350 30108 mg powder for oral solution (20 sources) [...] tablet (20 sources) HMG-CoA Reductase Inhibitor Start: 2 take 1 tablet by mouth once daily [...] mg/actuat inhalation spray (15 sources) Anticholinergic Start: 09-28-2 023 take 2 puff(s) by inhalation once daily tiotropium bromide (SPIRIVA RESPIMAT) 2.5 mcg/actuation inhaler Inhale 2 Puffs as instructed once daily. 1 Each 5 03/02/2023 Active Start: 11-02-2017 take 1 capsule [...] Puff as instructed once daily. 1 Each 5 02/21/2023 Active Comment on above: Inhale 1 [...] 11:48pm amitriptyline hydrochloride 10 mg oral tablet (5 sources) Tricyclic Antidepressant Start: 10-03-2024 End: 12-10-2024 [...] mg tablet Discontinued 10 mg PO DAILY 30 October 15, 2021 3:27pm January 31, 2022 8:56am Start: 03-03-2021 End: 07-15-2021 take 1 tablet by mouth once daily Amlodipine 5 mg Tablet Discontinued 5 mg PO DAILY 30 March 03, 2021 12:00am July 15, 2021 4:12pm Comment on above: Take 5 mg by mouth o nce daily. atorvastatin 40 mg oral tablet (20 sources) HMG-CoA Reductase Inhibitor Start: 06-14-19 End: 07-10-19 take 1 tablet by mouth at bedtime Atorvastatin 40 MG tablet Discontinued 40 mg PO AT BEDTIME 30 June 19, 2018 9:52pm July 10, 2019 5:10pm Cholestrol budesonide 3 mg delayed release oral capsule (11 sources) Corticosteroid Start: 03-30-20 End: 04-12-20 take 2 capsules by mouth once daily Budesonide 3 mg capsule,delayed,ext end.release Discontinued 6 mg PO DAILY 30 March 30, 2023 12:00am April 12, 2023 [...] 5:25pm Calcium Carbonate-Vit A And D Tablet (7 sources) Start: 01-31-2022 End: 12-10-2024 Calcium Carbonate-Vit [...] as needed for muscle spasm. docusate sodium 100 mg oral capsule (20 sources) Start: 06-16-2023 End: 01-14-2025 Docusate Sodium 100 mg capsule Discontinued 100 mg PO NEEDED as needed for constipation June 16, 2023 1:00am January 14, 2025 1:14pm Start: 01-31-2022 End: 04-12-2023 take 100 mg [...] CONSTIPATION Start: 10-09-2018 take 1 capsule by [facility] twice daily docusate sodium (COLACE) 100 MG capsule Take 1 capsule by mouth 2 times daily 60 capsule 3 10/09/2018 Active Start: 06-14-2018 End: 06-19-2018 take 1 capsule by mouth twice daily Docusate Sodium (Colace) 100 MG capsule Discontinued 100 mg PO TWICE A DAY June 14, 2018 1:00am June 19, 2018 9:52pm Stool softener Comment on above: Take 1 capsule by [facility] twice daily. docusate sodium 50 mg / sennosides, retirement 8.6 mg oral tablet (20 sources) Start: 06-19-2018 End: 07-10-2019 Sennosides-Docusate Sodium 1 TABLET tablet Discontinued 1 {tbl} PO BID@0800,1800 60 0 June 19, 2018 1:00am July 10, 2019 5:11pm Start: 06-19-2018 End: 07-10-2019 take 1 tablet by mouth twice daily Sennosides-Docusate Sodium Discontinued 1 TABLET PO BID@0800,1800 60 June 19, 2018 1:00am July 10, 2019 5:11pm doxepin hydrochloride 10 mg oral capsule (18 sources) Tricyclic Antidepressant Start: 10-13-2022 End: 04-12-2023 [...] 9:01am Start: 10-26-2020 take 1 tablet by [facility] twice daily doxycycline (VIBRA-TABS) 100 mg tablet [...] on above: Take 1 tablet by sweta twice daily. Extend antibiotic if not resolved with 10 day course 1 ml evolocumab 140 mg/ml auto-injector (6 sources) PCSK9 Inhibitor Start: 5 End: 5 Evolocumab (Repatha Sureclick) 140 mg/mL pen injector Discontinued 140 mg SC every 2 weeks 2 4 September 04, 2024 12:00am December 10, 2024 2:06pm Atherosclerosis of coronary artery of [place] heart without angina pectoris History of coronary artery bypass surgery Hyperlipidemia Statin intolerance Atherosclerotic heart disease of [place] coronary artery without angina pectoris Presence of aortocoronary bypass graft Hyperlipidemia, unspecified Other specified health status ezetimibe 10 mg oral tablet (7 sources) Dietary Cholesterol Absorption Inhibitor Start: 4 End: take 1 tablet by mouth once daily Ezetimibe (Zetia) 10 mg tablet Discontinued 10 mg PO daily 04 05April 23, 2024 1:00am December 10, 2024 2:07pm 3 ml insulin aspart, human 100 unt/ml pen injector (20 sources) Insulin Analog Start: 2 End: 5 Insulin Aspart U-100 (Novolog Flexpen U-100 Insulin) 100 unit/mL (3 mL) insulin pen Discontinued 17 U SC THREE TIMES A DAY September 16, 2021 12:00am January 14, 2025 1:14pm Start: 09-16-2021 Insulin Aspart U-100 (Novolog Flexpen [...] insulin regimen in the previous 24 hours. lisinopril 5 mg oral tablet (20 sources) Angiotensin Converting Enzyme Inhibitor Start: take 10 mg by mouth once daily [...] mouth daily 30 tablet 5 10/01/2018 Active metoprolol tartrate 25 mg oral tablet (20 sources) beta-Adrenergic Rozina Start: 12-10-2024 End: 01-14-2025 Metoprolol Tartrate 25 mg tablet Discontinued 12.5 mg PO TWICE A DAY December 10, 2024 12:00am January 14, 2025 1:45pm Start: 05-14-2024 End: 06-13-2024 take 1 tablet [...] 25 mg PO TWICE A DAY 60 0 June 19, 2018 9:52pm July 10, 2019 5:12pm Blood pressure Comment on above: Take 0.5 tablets by mouth every 12 hours. nitrofurantoin, macrocrystals 25 mg / nitrofurantoin, monohydrate 75 mg oral capsule (20 sources) Nitrofuran Antibacterial Start: 023 End: 023 take 1 capsule by mouth every twelve hours at mealtime Nitrofurantoin Monohyd/M-Cryst 100 mg capsule Discontinued 1 NMA PO Q12H 14 7 0 July 19, 2022 1:00am July 25, 2022 1:00am July 26, 2022 1:05am administer with a meal/food; swallow whole; do not open, crush, dissolve , or chew Start: 05-01-2019 take 1 capsule by mo [facility] once daily nitrofurantoin, macrocrystal-monohydrate , (MACROBID) 100 MG capsule Indications: Recurrent UTI Take 1 capsule by mouth daily For prevention of recurrent UTIs 30 capsule 3 05/01/2019 Active Start: 04-01-2019 take 1 capsule by mo [facility] once daily nitrofurantoin, macrocrystal-monohydrate , (MACROBID) 100 [...] 9:52pm Supplement rifAXIMin 550 mg oral tablet (7 sources) Rifamycin Antibacterial Start: 03-06-2024 End: 04-18-2024 [...] 2021 11:09am sucralfate 1000 mg oral tablet (7 sources) Aluminum Complex Start: 03-06-2024 End: 04-23-2024 take 1 tablet by mouth twice daily Sucralfate 1 gram tablet Discontinued 1 g PO TWICE A DAY 30 1 March 06, 2024 12:00am April 23, 2024 [...] daily. for nasal drainage and congestion Vibegron (13 sources) Start: 03-01-2023 End: 04-12-2023 take 1 [...] Coronary atherosclerosis; 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: [Atherosclerotic heart disease of [place] coronary artery without angina pectoris] Onset: 9 08-02-2018 Chronic Coronary atherosclerosis and other heart disease (6 sources) Presence of aortocoronary bypass graft; 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: [Aortocoronary bypass status] Onset: 8 Episodic Diabetes mellitus with complications (20 sources) Type 2 diabetes mellitus in obese; 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: [Type 2 diabetes mellitus] Onset: 3 10-01-2018 Chronic Diabetes mellitus without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 Comment on above: Order Comment: Speci men Type: SWAB Ordering Facility: [facility] Address: [address] [place] [address] Performed By: #### C VTV, BVAMP #### [facility] CLIA [id number] [address] [place] [address] [place] BAYRON/TRICHOMONAS NAATon 0 07-02-2024 C. glabrata RNA DARLIN+probe Ql (Vag fld) Not detected Normal Not detected [facility] Comment on above: Order Comment: Speci men Type: SWAB [facility]ing Facility: [facility] Address: [address] [place] [address] Performed By: #### C VTV, BVAMP #### [facility] CLIA [id number] [address] [place] [address] [place] Bayron sp DNA DARLIN+probe Ql (Vag fld) Not detected Normal Not detected [facility] Comment on above: Order Comment: Speci men Type: SWAB [facility]ing Facility: [facility] Address: [address] [place] [address] Result Comment: The Bayron species group target includes C. albicans, C. tropicalis, C. parapsilosis, and C. dubliniensis. Performed By: #### C VTV, BVAMP #### [facility] CLIA [id number] [address] [place] [address] [place] T. vaginalis DNA DARLIN+probe Ql (Unsp spec) Not detected Normal Not detected [facility] Comment on above: Order Comment: Speci men Type: SWAB [facility]ing Facility: [facility] Address: [address] [place] [address] Performed By: #### C VTV, BVAMP #### [facility] CLIA [id number] [address] [place] [address] [place] CNOVon 07-02-2024 CNOV Office Visit (OBGYWM) KALNELAYLA ([id number]) 1950 F Date Time Provider Department 07/02/24 3:20 PM MAE RAYA During your visit today, we recorded the following information about you: Blood pressure Weight 120/80 81.3 kg Mae Raya MD 07/02/2024 4:34 PM Signed Senior Net Software Engineer offered: Patient declines. Layla Higuera is a [...] OB History No obstetric history on file. It Account Manager History LMP: Postmenopausal Age at Menarche: Age at First : Age at Menopause: It Account Manager History Comments: Sexual Activity: Not Asked; No partner data on record Contraception: No contraception data on record PAST MEDICAL HISTORY Diagnosis Date Aortic sclerosis Aspiration pneumonia ([facility]) Following CVA. CAD (coronary artery disease) COPD (chronic obstructive pulmonary disease) ([facility]) 03/18/2013 Stage 0. Normal FEV1 03/2013. 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 Stroke ([facility]) SUMMARY 10/14/2014 Ms Layla Higuera is [...] aspart U (more content not included)... Normal [facility] Gastroenterology Visit Repor ton 06-13-2024 Gastroenterology Visit Report [facility] [address] [place] [address] OFFICE VISIT Date of Service: 06/13/24 MR#: [id number] Acct: [id number] Name: LAYLA HIGUERA Rep #: [id number] : 1950 Provider: Philip Drummond DO Age/Sex: 74/F Location: [facility] Status: Signed Intake Vital Signs 10/31/23 14:38 [...] past year?: No PFSH Medical History (Updated 05/15/24 @ 13:[address] Brendon Orozco MD) Cardiac murmur Current use of fdc anticoagulation Arterial vascular disease Bilateral buttock pain [...] accident) (09/2014) Atherosclerosis of coronary artery of [place] heart without angina pectoris History of non-ST [...] HPI Chief Complaint: establish care- diabetes Details: LEONARDO HIGUERA is a 74 F who presents to the office today for follow up. PMH includes hyperlipidemia; HTN; DM; CVA; NSTEMI; Ischemic stroke.? [facility] hospitalization 9.15.21-9.17.21 for UTI, N/V, CP, bacteremia. [facility] hospitalization ..- 03.03. for TEODORO. ??? CT abd/pel .???with low attenuation along falciform ligament consistent with focal fatty sparing; layering sludge of gallbladder, possibly tiny calculi; small hiatal hernia; colonic div (more content not included)... Normal [facility] Dexa Bone Density Studyon Dexa Bone Density Study [facility] Imaging Services [address] [place] [id number] Dexa Bone Density Study MR#: [id number] Acct: [id number] Name: LAYLA HIGUERA Rep #: [id number] : 1950 F 74 From: Tato sandoval MD PCP: GABY Jewell Status: [facility] Study: Dexa Bone Density Study Date of Exam: 06/11/24 Exam# [id number] Ordering Dr: Tere Mckenzie FAMILY COUNSELOR-C [id number] STUDY: DUAL ENERGY X-RAY ABSORPTIOMETRY / DXA [...] 9:25 EST Reading Location ID and State: [facility] / [place] , Service support , CC: GABY Mckenzie; GABY Sylvester Rotary Lithographic Press Operator: Signed Normal [facility] Thyroid Peroxidase ABon 05-06 THYR PEROX AB 13 IU/mL Normal [address] [place] [address] Comment on above: Order Comment: Nico nts: fatigue Result Comment: Perf ormed at: - [facility] [address] [id number] System Support Technician: John Lopez PhD, Phone: [phone] Performed By: #### L 1700.6909 #### [facility] [address] [place] [address], [id number] TPO Ab QnOrdered By: Tere frank on 05-27-2024 Thyroid Peroxidase Antibodies 13 IU/mL [address] [place] [address] Comment on above: Performed at: CB - [facility] [address] [id number] Director: John Lopez PhD, Phone: [phone] L/S Spine Bending Flex/[place] 05-14-2024 L/S Spine Bending Flex/Ext [facility] [address] [place] [address] L/S Spine Bending Flex/Ext MR#: [id number] Acct: [id number] Name: LAYLA HIGUERA Rep #: [id number] : 1950 F 73 From: Jim love DO PCP: GABY Jewell Status: DEP AMB Study: L/S Spine Bending Flex/Ext Date of Exam: 05/14 Exam# [id number] Ordering Dr: Brendon Orozco MD [id number] EXAM: XR LUMBOSACRAL SPINE FLEXION/EXTENSION ONLY, 2 [...] CC: GABY Sylvester; Dr. Brendon Orozco MD Rotary Lithographic Press Operator: Signed Normal [facility] Orthopedic Visit Reporton Orthopedic Visit Report [facility] [address] [place] [address] OFFICE VISIT Date of Service: 05/14/24 MR#: [id number] Acct: [id number] Name: LAYLA HIGUERA Rep #: [id number] : 1950 Provider: Dr. Brendon Orozco MD Age/Sex: 73/F Location: [facility] Status: Signed Intake Vital Signs 10/31/23 14:38 [...] mg tablet,delayed 81 mg PO DAILY@[address] [facility] 06/14/18 05/14/24 History release insulin glargine 100 [...] past year?: No PFSH Medical History (Updated 05/15/24 @ 13:[address] Brendon Orozco MD) Cardiac murmur 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 Arterial vascular disease Bilateral buttock pain [...] accident) (09/2014) Atherosclerosis of coronary artery of [place] heart without angina pectoris History of non-ST [...] MD 05/14/24 (more content not included)... Normal [facility] Cardiology Visit Reporton Cardiology Visit Report [facility] [address] [place] [address] OFFICE VISIT Date of Service: 04/23/24 MR#: [id number] Acct: [id number] Name: LAYLA HIGUERA Rep #: [id number] : 1950 Provider: THERESA Santana Age/Sex: 73/F Location: [facility] Status: Signed HPI HPI History of Present Illness Details: Layla Higuera is a 73 y/o female with a history of hypertension, diabetes mellitus, previous cerebrovascular accident, and hyperlipidemia. She had presented to the emergency room in 2017 with chest discomfort and shortness of breath. [...] She did have to recuperate in a residential. She also has a sclerotic aortic valve. [...] 94 Intake Visit Reasons: 6 M FU Office Aide Required: No Is patient in pain?: No [...] mg tablet,delayed 81 mg PO DAILY@[address] [facility] 06/14/18 04/23/24 History release insulin glargine 100 [...] PO QD (more content not included)... Normal [facility] Endocrinology Visit Reporton 04-18-2024 Endocrinology Visit Report [facility] [address] [place] [address]. [address] [place] [address] OFFICE VISIT Date of Service: 04/18/24 MR#: [id number] Acct: [id number] Name: LAYLA HIGUERA Rep #: [id number] : 1950 Provider: GABY anderson Age/Sex: 73/F Location: [facility] Status: Signed Intake Vital Signs 10/31/23 14:38 [...] the past year?: No PFSH Medical History 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 Arterial vascular disease Bilateral buttock pain [...] accident) (09/2014) Atherosclerosis of coronary artery of [place] heart without angina pectoris History of non-ST [...] for eval (more content not included)... Normal [facility] Chest PA and Lateralon 03-19 Chest PA and Lateral [facility] Imaging Services [address] [place], [place] [id number] Chest PA and Lateral MR#: [id number] Acct: [id number] Name: LAYLA HIGUERA Rep #: [id number] : 1950 F 73 From: Jim love DO PCP: GABY Jewell Status: REG CLI Study: Chest PA and Lateral Date of Exam: 03/19/24 Exam# [id number] Ordering Dr: Ximena Sylvester [id number] EXAM: XR CHEST, 2 VIEWS CLINICAL INDICATION: [...] at 21:40 EDT , CC: GABY Sylvester Rotary Lithographic Press Operator: Signed Normal [facility] L/S Spine Min 4 Views03-05 L/S Spine Min 4 Views [facility] Imaging Services [address] [place], [place] [address] L/S Spine Min 4 Views MR#: [id number] Acct: [id number] Name: LAYLA HIGUERA Rep #: [id number] : 1950 F 73 From: Jim love DO PCP: GABY Jewell Status: REG CLI Study: L/S Spine Min 4 Views Date of Exam: 03/19/24 Exam# [id number] Ordering Dr: Ximena Sylvester [id number] EXAM: XR LUMBOSACRAL SPINE, 4 OR 5 [...] at 21:27 EDT , CC: GABY Sylvester Rotary Lithographic Press Operator: Signed Normal [facility] ANTINUCLEAR ANTIBODIES DIREC Ton 03-07-2024 QUINCY,DIRECT Negative Normal Negative [facility] Comment on above: Result Comment: Perf ormed at: [facility] [employer] [id number] System Support Technician: John Lopez PhD, Phone: [phone] Performed By: #### L 501.6710, L500.4050, L503.6620, L4600.0100, L100.0100, L300.8000, L3100.5475, L505.7010, L101.9900 ####[facility] [address] [place], [place], [id number] CCP IgG Antibodieson 024 CCP IgG Ab. 5 units Normal 0-19 [facility] Comment on above: Result Comment: Nega tive <20 Weak positive 20 - 39 Moderate positive 40 - 59 Strong positive >59 Performed at: [facility] [id number] System Support Technician: John Lopez PhD, Phone: [phone] Performed By: #### L 501.6710, L500.4050, L503.6620, L4600.0100, L100.0100, L300.8000, L3100.5475, L505.7010, L101.9900 ####[facility] [address] [place], [place], [id number] Gastroenterology Visit Repor ton 03-06-2024 Gastroenterology Visit Report [facility] [address] [place] [address] OFFICE VISIT Date of Service: 03/06/24 MR#: [id number] Acct: [id number] Name: LAYLA HIGUERA Licha Rep #: [id number] : 1950 Provider: THERESA Camp Age/Sex: 73/F Location: [facility] Status: Signed Intake Vital Signs 10/31/23 14:38 [...] the past year?: No PFSH Medical History Current use of fdc anticoagulation Arterial vascular disease Bilateral buttock pain [...] accident) (09/2014) Atherosclerosis of coronary artery of [place] heart without angina pectoris History of non-ST [...] HPI HPI Chief Complaint: f/u Details: LAYLA HIGUERA, is a 73 F who presents to the office today for f/u PMH includes hyperlipidemia; HTN; DM; CVA; NSTEMI; Ischemic stroke.? [facility] hospitalization .-02.19.21 for UTI, N/V, CP, bacteremia. [facility] hospitalization 02.23.21- 03.03.21 for TEODORO. ??? CT abd/pel 02.17.21???with low attenuation along falciform ligament consistent with focal fatty sparing; layering sludge of gallbladder, possibly tiny calculi; small hiatal hernia; colonic diverticulosis; stable wall thic (more content not included)... Normal [facility] BNP,B-Type NATRIURETIC PEPTI Lluvia 03-05-2024 Natriuretic peptide B (Bld) [Mass/Vol] pg/mL Normal 0-100 [facility] Comment on above: Performed By: #### L 501.6710, L500.4050, L503.6620, L4600.0100, L100.0100, L300.8000, L3100.5475, L505.7010, L101.9900 ####[facility] [address] [place], [place], [address] CBC W/Diff, Automatedon 10- Absolute Lymph 2.62 X10 3/uL Normal 0.83-4.51 [facility] Comment on above: Performed By: #### L 501.6710, L500.4050, L503.6620, L4600.0100, L100.0100, L300.8000, L3100.5475, L505.7010, L101.9900 ####[facility] [address] [place], [place], [address] Absolute Neut 3.1 X10 3/uL Normal 2.0-7.7 [facility] Comment on above: Performed By: #### L 501.6710, L500.4050, L503.6620, L4600.0100, L100.0100, L300.8000, L3100.5475, L505.7010, L101.9900 ####[facility] [address] [place], [address] Basophils/100 WBC (Bld) 0.9 % Normal 0-1 [facility] Comment on above: Performed By: #### L 501.6710, L500.4050, L503.6620, L4600.0100, L100.0100, L300.8000, L3100.5475, L505.7010, L101.9900 ####[facility] [address] [place], [address] Eosinophils/100 WBC (Bld) 2.9 % Normal 0-5 [facility] Comment on above: Performed By: #### L 501.6710, L500.4050, L503.6620, L4600.0100, L100.0100, L300.8000, L3100.5475, L505.7010, L101.9900 ####[facility] [address] [place], [address] Erythrocyte distribution width (RBC) [Ratio] 13.9 % Normal 11.6-14.6 [facility] Comment on above: Performed By: #### L 501.6710, L500.4050, L503.6620, L4600.0100, L100.0100, L300.8000, L3100.5475, L505.7010, L101.9900 ####[facility] [address] [place], [address] Hematocrit (Bld) [Volume fraction] 37.4 % Normal 37-47 [facility] Comment on above: Performed By: #### L 501.6710, L500.4050, L503.6620, L4600.0100, L100.0100, L300.8000, L3100.5475, L505.7010, L101.9900 ####[facility] [address] [place], [address] Hemoglobin (Bld) [Mass/Vol] 11.9 g/dL Low 12.0-15. 0 [facility] Comment on above: Performed By: #### L 501.6710, L500.4050, L503.6620, L4600.0100, L100.0100, L300.8000, L3100.5475, L505.7010, L101.9900 ####[facility] [address] [place], [address] IG% 0.200 Normal 0.0-0.9 [facility] Comment on above: Result Comment: IG% - Immature Granulocytes (promyelocytes, myelocytes and metamyelocytes) > 1% indicates that a LEFT SHIFT is Present. Performed By: #### L 501.6710, L500.4050, L503.6620, L4600.0100, L100.0100, L300.8000, L3100.5475, L505.7010, L101.9900 ####[facility] [address] [place], [address] Lymphocytes/100 WBC (Bld) 40.2 % Normal 19-41 [facility] Comment on above: Performed By: #### L 501.6710, L500.4050, L503.6620, L4600.0100, L100.0100, L300.8000, L3100.5475, L505.7010, L101.9900 ####[facility] [address] [place], [address] MCH (RBC) [Entitic mass] 28.1 pg Normal 27.0-32.0 [facility] Comment on above: Performed By: #### L 501.6710, L500.4050, L503.6620, L4600.0100, L100.0100, L300.8000, L3100.5475, L505.7010, L101.9900 ####[facility] [address] [place], [address] MCHC (RBC) [Mass/Vol] 31.8 g/dL Low 32-36 [facility] Comment on above: Performed By: #### L 501.6710, L500.4050, L503.6620, L4600.0100, L100.0100, L300.8000, L3100.5475, L505.7010, L101.9900 ####[facility] [address] [place], [address] MCV (RBC) [Entitic vol] 88.4 fL Normal 81-99 [facility] Comment on above: Performed By: #### L 501.6710, L500.4050, L503.6620, L4600.0100, L100.0100, L300.8000, L3100.5475, L505.7010, L101.9900 ####[facility] [address] [place], [address] Monocytes/100 WBC (Bld) 8.4 % Normal 0-10 [facility] Comment on above: Performed By: #### L 501.6710, L500.4050, L503.6620, L4600.0100, L100.0100, L300.8000, L3100.5475, L505.7010, L101.9900 ####[facility] [address] [place], [address] Neutrophils/100 WBC (Bld) 47.4 % Normal 47-70 [facility] Comment on above: Performed By: #### L 501.6710, L500.4050, L503.6620, L4600.0100, L100.0100, L300.8000, L3100.5475, L505.7010, L101.9900 ####[facility] [address] [place], [address] Nucleated RBC (Bld) [#/Vol] 0 10*3/uL Normal 0-5 [facility] Comment on above: Performed By: #### L 501.6710, L500.4050, L503.6620, L4600.0100, L100.0100, L300.8000, L3100.5475, L505.7010, L101.9900 ####[facility] [address] [place], [address] Platelet mean volume (Bld) [Entitic vol] 11.9 fL Normal 6.2-12.0 [facility] Comment on above: Performed By: #### L 501.6710, L500.4050, L503.6620, L4600.0100, L100.0100, L300.8000, L3100.5475, L505.7010, L101.9900 ####[facility] [address] [place], [address]( Platelets (Bld) [#/Vol] 258 10*3/uL Normal 150-450 [facility] Comment on above: Performed By: #### L 501.6710, L500.4050, L503.6620, L4600.0100, L100.0100, L300.8000, L3100.5475, L505.7010, L101.9900 ####[facility] [address] [place], [address] RBC (Bld) [#/Vol] 4.23 10*6/uL Normal 4.2-5.4 [facility] Comment on above: Performed By: #### L 501.6710, L500.4050, L503.6620, L4600.0100, L100.0100, L300.8000, L3100.5475, L505.7010, L101.9900 ####[facility] [address] [place], [address] RDW SD 45.0 fl High 35.1-43.9 [facility] Comment on above: Performed By: #### L 501.6710, L500.4050, L503.6620, L4600.0100, L100.0100, L300.8000, L3100.5475, L505.7010, L101.9900 ####[facility] [address] [place], [address] WBC (Bld) [#/Vol] 6.5 10*3/uL Normal 4.4-11.0 [facility] Comment on above: Performed By: #### L 501.6710, L500.4050, L503.6620, L4600.0100, L100.0100, L300.8000, L3100.5475, L505.7010, L101.9900 ####[facility] [address] [place], [address] CRPon 03-05-2024 C-REACTIVE PROT < 2.90 Normal 0.0-3.0 [facility] Comment on above: Result Comment: C-Re active Protein (CRP) provides useful information for the diagnosis, therapy and monitoring of inflammatory processes and associated diseases. For the evaluation of Relative Risk for Cardiovascular Disease, a High Sensitivity CRP (HSCRP) should be ordered. Performed By: #### L 501.6710, L500.4050, L503.6620, L4600.0100, L100.0100, L300.8000, L3100.5475, L505.7010, L101.9900 ####[facility] [address] [place], [address] Comprehensive Metabolic Prof ilon 03-05-2024 Albumin [Mass/Vol] 3.3 g/dL Normal 3.2-5.0 [facility] Comment on above: Performed By: #### L 501.6710, L500.4050, L503.6620, L4600.0100, L100.0100, L300.8000, L3100.5475, L505.7010, L101.9900 ####[facility] [address] [place], [address] Albumin/Globulin [Mass ratio] 0.8 {ratio} Low 0.9-2.4 [facility] Comment on above: Performed By: #### L 501.6710, L500.4050, L503.6620, L4600.0100, L100.0100, L300.8000, L3100.5475, L505.7010, L101.9900 ####[facility] [address] [place], [address] ALK P 81 U/L Normal 45-117 [facility] Comment on above: Performed By: #### L 501.6710, L500.4050, L503.6620, L4600.0100, L100.0100, L300.8000, L3100.5475, L505.7010, L101.9900 ####[facility] [address] [place], [address] ALT [Catalytic activity/Vol] 20 U/L Normal 13-56 [facility] Comment on above: Performed By: #### L 501.6710, L500.4050, L503.6620, L4600.0100, L100.0100, L300.8000, L3100.5475, L505.7010, L101.9900 ####[facility] [address] [place], [address] AST [Catalytic activity/Vol] 8 U/L Low 15-37 [facility] Comment on above: Performed By: #### L 501.6710, L500.4050, L503.6620, L4600.0100, L100.0100, L300.8000, L3100.5475, L505.7010, L101.9900 ####[facility] [address] [place], [address] Bilirubin [Mass/Vol] 0.20 mg/dL Normal 0.20-1.00 [facility] Comment on above: Result Comment: For patients on eltrombopag therapy, use of Dimension [place] TBIL is not recommended. Performed By: #### L 501.6710, L500.4050, L503.6620, L4600.0100, L100.0100, L300.8000, L3100.5475, L505.7010, L101.9900 ####[facility] [address] [place], [address] BUN/CRE 21.8 RATIO High 10-20 [facility] Comment on above: Performed By: #### L 501.6710, L500.4050, L503.6620, L4600.0100, L100.0100, L300.8000, L3100.5475, L505.7010, L101.9900 ####[facility] [address] [place], [address] CA,Total 9.2 mg/dL Normal 8.5-10.1 [facility] Comment on above: Performed By: #### L 501.6710, L500.4050, L503.6620, L4600.0100, L100.0100, L300.8000, L3100.5475, L505.7010, L101.9900 ####[facility] [address] [place], [address] Chloride [Moles/Vol] 104 mmol/L Normal 98-107 [facility] Comment on above: Performed By: #### L 501.6710, L500.4050, L503.6620, L4600.0100, L100.0100, L300.8000, L3100.5475, L505.7010, L101.9900 ####[facility] [address] [place], [address] CO2 [Moles/Vol] 26.0 mmol/L Normal 21.0-32.0 [facility] Comment on above: Performed By: #### L 501.6710, L500.4050, L503.6620, L4600.0100, L100.0100, L300.8000, L3100.5475, L505.7010, L101.9900 ####[facility] [address] [place], [address] Creatinine [Mass/Vol] 0.87 mg/dL Normal 0.55-1.02 [facility] Comment on above: Result Comment: The validity of the calculated GFR GFRAA in patients over 70 years has not been determined. Clinical correlation is essential. Performed By: #### L 501.6710, L500.4050, L503.6620, L4600.0100, L100.0100, L300.8000, L3100.5475, L505.7010, L101.9900 ####[facility] [address] [place], [address] EST GFR - AA 82 mL/min Normal >60 [facility] Comment on above: Result Comment: Afri can Ecuadorean GFR Calc Performed By: #### L 501.6710, L500.4050, L503.6620, L4600.0100, L100.0100, L300.8000, L3100.5475, L505.7010, L101.9900 ####[facility] [address] [place], [address] GAP 6 Normal 5-15 [facility] Comment on above: Performed By: #### L 501.6710, L500.4050, L503.6620, L4600.0100, L100.0100, L300.8000, L3100.5475, L505.7010, L101.9900 ####[facility] [address] [place], [address] GFR/1.73 sq M.predicted among non-blacks MDRD (S/P/Bld) [Vol rate/Area] 67 mL/min/{1.73_m2} Normal >60 [facility] Comment on above: Result Comment: Non- GFR Calc Performed By: #### L 501.6710, L500.4050, L503.6620, L4600.0100, L100.0100, L300.8000, L3100.5475, L505.7010, L101.9900 ####[facility] [address] [place], [address] Globulin (S) [Mass/Vol] 4.0 g/dL Normal 2.2-4.2 [facility] Comment on above: Performed By: #### L 501.6710, L500.4050, L503.6620, L4600.0100, L100.0100, L300.8000, L3100.5475, L505.7010, L101.9900 ####[facility] [address] [place], [address] Glucose [Mass/Vol] 170 mg/dL High 74-106 [facility] Comment on above: Result Comment: Fast ing Glucose result greater than or equal to 126 mg/dL suggests DIABETES MELLITUS per A.D.A. criteria. Performed By: #### L 501.6710, L500.4050, L503.6620, L4600.0100, L100.0100, L300.8000, L3100.5475, L505.7010, L101.9900 ####[facility] [address] [place], [address] Potassium [Moles/Vol] 4.0 mmol/L Normal 3.5-5.1 [facility] Comment on above: Performed By: #### L 501.6710, L500.4050, L503.6620, L4600.0100, L100.0100, L300.8000, L3100.5475, L505.7010, L101.9900 ####[facility] [address] [place], [address] Sodium [Moles/Vol] 136 mmol/L Normal 136-145 [facility] Comment on above: Performed By: #### L 501.6710, L500.4050, L503.6620, L4600.0100, L100.0100, L300.8000, L3100.5475, L505.7010, L101.9900 ####[facility] [address] [place], [place], [id number] T PROT 7.3 g/dL Normal 6.4-8.2 [facility] Comment on above: Performed By: #### L 501.6710, L500.4050, L503.6620, L4600.0100, L100.0100, L300.8000, L3100.5475, L505.7010, L101.9900 ####[facility] [address] [place], [address]( Urea nitrogen [Mass/Vol] 19 mg/dL High 7-18 [facility] Comment on above: Performed By: #### L 501.6710, L500.4050, L503.6620, L4600.0100, L100.0100, L300.8000, L3100.5475, L505.7010, L101.9900 ####[facility] [address] [place], [address] D-Dimer Quantitative (DVT/PE )on 03-05-2024 D-DIMER QUANT 1.40 FEU/ug/m Invalid Interpretation Code 0.27-0.49 [facility] Comment on above: Order Comment: CRITI STEPHANIE VALUE CALLED TO XIMENA SYLVESTER03/05/24 Dorian Mccann.RESULTS READ BACK BY SAME. Result Comment: D-Di elton ELEVATED (>0.49): Additional studies and clinical assessments are indicated to conclude diagnosis of: Deep Vein Thrombosis (DVT) or Pulmonary Embolism (PE) Performed By: #### L 501.6710, L500.4050, L503.6620, L4600.0100, L100.0100, L300.8000, L3100.5475, L505.7010, L101.9900 ####[facility] [address] [place], [address] Erythrocyte Sed Rateon 03-05 SED RATE 38 mm/hr High 0-30 [facility] Comment on above: Performed By: #### L 501.6710, L500.4050, L503.6620, L4600.0100, L100.0100, L300.8000, L3100.5475, L505.7010, L101.9900 ####[facility] [address] [place], [place], [address] Rheumatoid Factoron 03-05-20 24 RHEUMATOID FAC < 10.0 Normal <15 [facility] Comment on above: Performed By: #### L 501.6710, L500.4050, L503.6620, L4600.0100, L100.0100, L300.8000, L3100.5475, L505.7010, L101.9900 ####[facility] [address] [place], [place], [address] CNOVon 09-26-2023 CNOV Office Visit (OBGYWM) LAYLA HIGUERA ([id number]) 1950 F Date Time Provider Department 09/26/23 3:10 PM AGUSTINA HIRSCH OBGYWM During your visit today, we recorded the following information about you: Blood pressure Weight 102/64 78.6 kg Agustina Hirsch MD 09/26/2023 3:45 PM Signed Senior Net Software Engineer offered: Patient declines. Layla Higuera is a 73 year old female who presents for problem visit. HPI: Patient presents with vulvar irritation for 1 year. She reports taking florajens. She changes a pull up about 3 times per day. She is not using any creams currently. Also she has been told that she has prolapse. 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 It Account Manager History LMP: Postmenopausal Age at Menarche: Age at First : Age at Menopause: It Account Manager History Comments: Sexual Activity: Not Asked; No partner data on record Contraception: No contraception data on record PAST MEDICAL HISTORY Diagnosis Date Aortic sclerosis Aspiration pneumonia ([facility]) Following CVA. CAD (coronary artery disease) COPD (chronic obstructive pulmonary disease) ([facility]) 03/18/2013 Stage 0. Normal FEV1 03/2013. 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 Stroke ([facility]) SUMMARY 10/14/2014 Ms Layla Higuera is [...] covered. albutero (more content not included)... Normal [facility] Basophil percentageOrdered B y: Deshawn Camarena on 08-04-2023 Chloride [Moles/Vol] 110 mmol/L 98-107 [facility] Glucose [Mass/Vol] 108 mg/dL 74-106 [facility] Comment on above: Fasting Glucose resu lt from 100 to 125 mg/dL suggests IMPAIRED HOMEOSTASIS per A.D.A. criteria. Hemoglobin (Bld) [Mass/Vol] 12.2 g/dL 12.0-15. 0 [facility] Potassium [Moles/Vol] 4.0 mmol/L 3.5-5.1 [facility] Sodium [Moles/Vol] 140 mmol/L 136-145 [facility] WBC (Bld) [#/Vol] 6.4 10*3/uL 4.4-11.0 [facility] Determination of erythrocyte mean corpuscular volume (MCV)Ordered By: Deshawn Camarena on 08-04-2023 MCV (RBC) [Entitic vol] 89.8 fL 81-99 [facility] Erythrocyte distribution wid th ratioOrdered By: Deshawn Camarena on 08-04-2023 Erythrocyte distribution width (RBC) [Ratio] 14.0 % 11.6-14.6 [facility] Erythrocyte distribution wid th standard deviationOrdered By: Deshawn Camarena on 08-04-2023 Erythrocyte distribution width (RBC) [Entitic vol] 45.9 fL 35.1-43.9 [facility] Hematocrit Auto (Bld) [Volum e fraction]Ordered By: Deshawn Camarena on 08-04-2023 Hematocrit (Bld) [Volume fraction] 38.0 % 37-47 [facility] - Chemistry and C hemistry - challengeOrdered By: Deshawn Camarena on 08-04-2023 CO2 [Moles/Vol] 28.0 mmol/L 21.0-32.0 [facility] Urea nitrogen/Creatinine [Mass ratio] 24.9 mg/mg 10-20 [facility] - Hematology and Cell countsOrdered By: Deshawn Camarena on 08-04-2023 MCH (RBC) [Entitic mass] 28.8 pg 27.0-32.0 [facility] MCHC (RBC) [Mass/Vol] 32.1 g/dL 32-36 [facility] Platelet mean volume (Bld) [Entitic vol] 11.9 fL 6.2-12.0 [facility] Platelets (Bld) [#/Vol] 245 10*3/uL 150-450 [facility] No Panel InformationOrdered By: Deshawn Camarena on 08-04-2023 Estimated GFR (MDRD) Amer 85 mL/min >60 [facility] Comment on above: GFR Calc Estimated GFR (MDRD) Non-Af Amer 70 mL/min >60 [facility] Comment on above: Non- GFR Calc RBC Auto (Bld) [#/Vol]Ordere d By: Deshawn Camarena on 08-04-2023 RBC (Bld) [#/Vol] 4.23 10*6/uL 4.2-5.4 [facility] Serum or plasma calcium yuniel urement (mass/volume)Ordered By: Deshawn Camarena on 08-04-2023 Calcium [Mass/Vol] 9.3 mg/dL 8.5-10.1 [facility] Serum or plasma creatinine m easurement (mass/volume)Ordered By: Deshawn Camarena on 08-04-2023 Creatinine [Mass/Vol] 0.84 mg/dL 0.55-1.02 [facility] Comment on above: The validity of the calculated GFR & GFRAA in patients over 70 years has not been determined. Clinical correlation is essential. Serum or plasma urea nitroge n measurement (mass/volume)Ordered By: Deshawn Camarena on 08-04-2023 Urea nitrogen [Mass/Vol] 21 mg/dL 7-18 [facility] Thin prep Papanicolaou smear with manual screeningOrdered By: Deshawn Camarena on 08-04-2023 Thin prep Papanicolaou smear with manual screening 2 5-15 [facility] XR HAND GENERAL 3V PA/LAT/OB L BILATERALon 03-09-2023 [facility] LUNG DIFFUSION CAPACITY (TAE O)on 02-21-2023 DLCO (ml/min/mmHg) 15.95 ml/min/mmHg [facility] DLCO/VA (ml/min/mmHg/L) 4.68 ml/min/mmHg/L [facility] HXV08-13% PRE (L/S) 0.89 L/S [facility] FEV1 PRE (L) 1.38 L [facility] FEV1/FVC PRE (%) 71 % [facility] FVC PRE (L) 1.94 L [facility] PEF PRE (L/S) 3.64 L/S [facility] VA (L) 3.41 L [facility] SPIROMETRY WITH DILATOR IF O BSTRUCTEDon 02-21-2023 [facility] Culture, urineOrdered By: Amos Green on 01-05-2023 Bacteria identified Cx Nom (U) Proteus mirabilis [facility] Culture, urineOrdered By: Amos Green on 12-20-2022 Bacteria identified Cx Nom (U) Proteus mirabilis [facility] Bacteria identified Cx Nom (U) Escherichia coli [facility] No Panel InformationOrdered By: Philip Drummond on 11-29-2022 Stool Calprotectin 107 ug/g 0-120 [facility] Comment on above: Concentration Interp retation Follow-Up< 5 - 50 ug/g Normal None>50 -120 ug/g Borderline Re-evaluate in 4-6 weeks >120 ug/g Abnormal Repeat as clinically indicatedPerformed at: [employer] [address] [id number] Director: John Lopez PhD, Phone: [phone] at: [facility] [id number] Director: Ángel Jones MD, Phone: [phone] Stool Neutral Fats Normal . [facility] Comment on above: Normal (<60 Droplets /HPF) Stool Pancreatic Elastase 220 >200 [facility] Comment on above: Result Units: ug Karely st./g Severe Pancreatic Insufficiency: <100 Moderate Pancreatic Insufficiency: 100 - 200 Normal: >200Performed at: [facility] [id number] Director: Ángel Jones MD, Phone: [phone] Qualitative fecal fat or lip idsOrdered By: Philip Drummond on 11-29-2022 Fat Ql (Stl) Normal . [facility] Comment on above: Normal (<100 Droplet s/HPF) Stool lactoferrin detection by immunoassayOrdered By: Philip Drummond on 11-29-2022 Lactoferrin IA Ql (Stl) [facility] Absolute lymphocyte countOrd ered By: Philip Drummond on 11-15-2022 Lymphocytes Auto (Unsp spec) [#/Vol] 1.98 10*3/uL 0.83-4.51 [facility] Atypical perinuclear antineu trophil cytoplasmic antibodies measurementOrdered By: Philippaola Drummond on 11-15-2022 Neutrophil cytoplasmic Ab.perinuclear.atypical IF (S) [Titer] <1:20 titer Neg:<1:20 [facility] Comment on above: The atypical pANCA p attern has been observed in asignificant percentage of patients with ulcerative colitis,primary sclerosing cholangitis and autoimmune hepatitis.Performed at: - [facility] [id number] Director: John Lopez PhD, Phone: [phone] at: [facility] [id number] Director: Ángel Jones MD, Phone: [phone] Basophil percentageOrdered B y: Philip Drummond on 11-15-2022 Basophil percentage < 0.2 AI 0.0-0.9 [facility] Basophils/100 WBC (Bld) 0.5 % 0-1 [facility] Bilirubin [Mass/Vol] 0.30 mg/dL 0.20-1.00 [facility] Comment on above: For patients on eltr ombopag therapy, use of Dimension [place] TBIL is not recommended. Chloride [Moles/Vol] 104 mmol/L 98-107 [facility] Cholesterol [Mass/Vol] 168 mg/dL <200 [facility] Comment on above: <200 mg/dL Desirable 200-240 mg/dL Borderline >240 mg/dL High Risk Eosinophils/100 WBC (Bld) 1.6 % 0-5 [facility] Glucose [Mass/Vol] 212 mg/dL 74-106 [facility] Comment on above: Glucose result great er than or equal to 200 mg/dLsuggests DIABETES MELLITUS per A.D.A. criteria. LDH [Catalytic activity/Vol] 206 U/L 84-246 [facility] Neutrophils (Bld) [#/Vol] 4.9 10*3/uL 2.0-7.7 [facility] Neutrophils/100 WBC (Bld) 65.2 % 47-70 [facility] Potassium [Moles/Vol] 4.4 mmol/L 3.5-5.1 [facility] Protein [Mass/Vol] 7.9 g/dL 6.4-8.2 [facility] Sodium [Moles/Vol] 138 mmol/L 136-145 [facility] Triglyceride [Mass/Vol] 145 mg/dL <199 [facility] Comment on above: The drugs N-Acetylcy steine and Metamizole may falsely depress this assay.Serum Triglycerides Reference Interval Normal <150 mg/dL Borderline high 150 - 199 mg/dL High 200 - 499 mg/dL Very High > or = 500 mg/dL WBC (Bld) [#/Vol] 7.4 10*3/uL 4.4-11.0 [facility] Blood erythrocytes count (nu mber/volume)Ordered By: Philip Drummond on 11-15-2022 RBC (Bld) [#/Vol] 4.57 10*6/uL 4.2-5.4 [facility] Blood hemoglobin measurement (mass/volume)Ordered By: Philip Drummond on 11-15-2022 Hemoglobin (Bld) [Mass/Vol] 12.9 g/dL 12.0-15. 0 [facility] Blood lymphocytes/100 leukoc ytesOrdered By: Philip Drummond on 11-15-2022 Lymphocytes/100 WBC (Bld) 26.6 % 19-41 [facility] Blood monocytes/100 leukocyt esOrdered By: Philip Drummond on 11-15-2022 Monocytes/100 WBC (Bld) 5.8 % 0-10 [facility] Blood platelet mean volumeOr dered By: Philip Drummond on 11-15-2022 Platelet mean volume (Bld) [Entitic vol] 12.4 fL 6.2-12.0 [facility] Determination of erythrocyte mean corpuscular volume (MCV)Ordered By: Philip Drummond on 11-15-2022 MCV (RBC) [Entitic vol] 89.9 fL 81-99 [facility] Erythrocyte sedimentation ra teOrdered By: Philip Drummond on 11-15-2022 ESR (Bld) [Velocity] 25 mm/h 0-30 [facility] Hematocrit Auto (Bld) [Volum e fraction]Ordered By: Philip Drummond on 11-15-2022 Hematocrit (Bld) [Volume fraction] 41.1 % 37-47 [facility] Interpretation of serum or p lasma protein pattern by immunofixation (narrative resultOrdered By: Philip Drummond on 11-15-2022 Protein Fractions Immunofixation [place] [Interp] See comment [facility] Comment on above: Result: Not Observed Laboratory - Chemistry and C hemistry - challengeOrdered By: Philip Drummond on 11-15-2022 ALP [Catalytic activity/Vol] 86 U/L 45-117 [facility] ALT [Catalytic activity/Vol] 25 U/L 13-56 [facility] CO2 [Moles/Vol] 27.0 mmol/L 21.0-32.0 [facility] Globulin (S) [Mass/Vol] 4.1 g/dL 2.2-4.2 [facility] Urea nitrogen/Creatinine [Mass ratio] 26.9 mg/mg 10-20 [facility] - Hematology and Cell countsOrdered By: Philip Drummond on 11-15-2022 Erythrocyte distribution width (RBC) [Entitic vol] 45.2 fL 35.1-43.9 [facility] Erythrocyte distribution width (RBC) [Ratio] 13.8 % 11.6-14.6 [facility] Immature granulocytes/100 WBC (Bld) 0.300 % 0.0-0.9 [facility] Comment on above: IG% - Immature Granu locytes (promyelocytes, myelocytes and metamyelocytes) > 1% indicates that a LEFT SHIFT is Present. MCH (RBC) [Entitic mass] 28.2 pg 27.0-32.0 [facility] Nucleated RBC/100 WBC (Bld) [Ratio] 0 % 0-5 [facility] MCHC Auto (RBC) [Mass/Vol]Or dered By: Philip Drummond on 11-15-2022 MCHC (RBC) [Mass/Vol] 31.4 g/dL 32-36 [facility] No Panel InformationOrdered By: Philip Drummond on 11-15-2022 Vitamin D 25-Hydroxy 41.3 ng/mL [facility] Comment on above: Vitamin D 25(OH) Sta tus Range Deficiency <20 ng/mL (50nmol/L) Insufficiency 20 - 30 ng/mL (50 - 75 nmol/L) Sufficiency 30 - 100 ng/mL (75 - 250 nmol/L) Toxicity >100 ng/mL (>250 nmol/L) Addendum Document Comment . [facility] Comment on above: Protein electrophore sis scan will follow via computer,mail, or food quality tester delivery. Centromere B Antibody <0.2 AI 0.0-0.9 [facility] Endomysial IgA Antibody Negative Negative [facility] Estimated GFR (MDRD) Amer 73 mL/min >60 [facility] Comment on above: GFR Calc Estimated GFR (MDRD) Non-Af Amer 60 mL/min >60 [facility] Comment on above: Non- GFR Calc Immunoglobulin E 132 IU/mL 6-495 [facility] HUMAN PERFORMANCE PROFESSOR Antibody <0.2 AI 0.0-0.9 [facility] Thyroid Stimulating Hormone (TSH) 2.02 uIU/mL 0.358-3.74 [facility] Platelets bldOrdered By: Anand Drummond on 11-15-2022 Platelets (Bld) [#/Vol] 258 10*3/uL 150-450 [facility] Serum DNA double strand anti body assay (units/volume)Ordered By: Philip Drummond on 11-15-2022 DNA double strand Ab Qn (S) [IU]/mL 0-9 [facility] Comment on above: Negative <5 Equivoca l 5 - 9 Positive >9 Serum IgA measurement (units /volume)Ordered By: Philip Drummond on 11-15-2022 IgA Qn (S) 411 mg/dL 64-422 [facility] Comment on above: Performed at: [address] [id number] Director: John Lopez PhD, Phone: [phone] Serum Beckie-1 antibody assay (u nits/volume)Ordered By: Philip Drummond on 11-15-2022 Beckie-1 extractable nuclear Ab Qn (S) <0.2 AI 0.0-0.9 [facility] Serum Scl-70 extractable nuc lear antibody assay (units/volume)Ordered By: Philip Drummond on 11-15-2022 SCL-70 extractable nuclear Ab Qn (S) <0.2 AI 0.0-0.9 [facility] Serum Hawk extractable nucl ear antibody detectionOrdered By: Philip Drummond on 11-15-2022 Hawk extractable nuclear Ab Ql (S) <0.2 AI 0.0-0.9 [facility] Serum renaa-7-[id number] measu rement by electrophoresisOrdered By: Philip Drummond on 11-15-2022 Alpha 1 globulin Elph [Mass/Vol] 0.3 g/dL 0.0-0.4 [facility] Alpha 1 globulin Elph [Mass/Vol] 1.2 g/dL 0.4-1.0 [facility] Serum classic neutrophil cyt oplasmic antibody assay (units/volume)Ordered By: Philip Drummond on 11-15-2022 Neutrophil cytoplasmic Ab.classic Qn (S) <1:20 titer Neg:<1:20 [facility] Serum globulin measurement ( mass/volume)Ordered By: Philip Drummond on 11-15-2022 Globulin (S) [Mass/Vol] 3.7 g/dL 2.2-3.9 [facility] Serum or plasma C reactive p rotein measurement (mass/volume)Ordered By: Philip Drummond on 11-15-2022 CRP [Mass/Vol] mg/L 0.0-3.0 [facility] Comment on above: C-Reactive Protein ( CRP) provides useful information for thediagnosis, therapy and monitoring of inflammatory processesand associated diseases. For the evaluation of Relative Riskfor Cardiovascular Disease, a High Sensitivity CRP (HSCRP)should be ordered. Serum or plasma IgA measurem ent (mass/volume)Ordered By: Philip Drummond on 11-15-2022 IgA [Mass/Vol] 405 mg/dL 64-422 [facility] Serum or plasma IgG measurem ent (mass/volume)Ordered By: Philip Drummond on 11-15-2022 IgG [Mass/Vol] 995 mg/dL 586-1602 [facility] Serum or plasma IgM measurem ent (mass/volume)Ordered By: Philip Drummond on 11-15-2022 IgM [Mass/Vol] 53 mg/dL 26-217 [facility] Serum or plasma albumin yuniel urement (mass/volume)Ordered By: Philip Drummond on 11-15-2022 Albumin [Mass/Vol] 3.8 g/dL 2.9-4.4 [facility] Serum or plasma albumin/glob ulin mass ratioOrdered By: Philip Drummond on 11-15-2022 Albumin/Globulin [Mass ratio] 0.9 {ratio} 0.9-2.4 [facility] Serum or plasma beta globuli n measurement by electrophoresis (mass/volume)Ordered By: Philip Drummond on 11-15-2022 Beta globulin Elph [Mass/Vol] 1.3 g/dL 0.7-1.3 [facility] Serum or plasma calcium yuniel urement (mass/volume)Ordered By: Philip Drummond on 11-15-2022 Calcium [Mass/Vol] 9.4 mg/dL 8.5-10.1 [facility] Serum or plasma cholesterol in HDL measurement (mass/volume)Ordered By: Philip Drummond on 11-15-2022 Cholesterol in HDL [Mass/Vol] 44 mg/dL >40 [facility] Comment on above: The drugs N-Acetylcy steine and Metamizole may falsely depress this assay. Reference Range HDL <40 mg/dL Low HDL Cholesterol HDL >or= 60 mg/dL High HDL Cholesterol Serum or plasma cholesterol in VLDL measurement (mass/volume)Ordered By: Philip Drummond on 11-15-2022 Cholesterol in VLDL [Mass/Vol] 29 mg/dL 5-40 [facility] Serum or plasma creatinine m easurement (mass/volume)Ordered By: Philip Drummond on 11-15-2022 Creatinine [Mass/Vol] 0.97 mg/dL 0.55-1.02 [facility] Comment on above: The validity of the calculated GFR & GFRAA in patients over 70 years has not been determined. Clinical correlation is essential. Serum or plasma gamma globul in measurement by electrophoresis (mass/volume)Ordered By: Philip Drummond on 11-15-2022 Gamma globulin Elph [Mass/Vol] 1.0 g/dL 0.4-1.8 [facility] Serum or plasma immunoelectr ophoresis interpretation (nominal result)Ordered By: Philip Drummond on 11-15-2022 Interpretation IEP [Interp] Comment . [facility] Comment on above: No monoclonality det ected. Serum or plasma low density lipoprotein (LDL) cholesterol measurement (mass/volume)Ordered By: Philip Drummond on 11-15-2022 Cholesterol in LDL [Mass/Vol] 95 mg/dL 0-130 [facility] Serum or plasma urea nitroge n measurement (mass/volume)Ordered By: Philip Drummond on 11-15-2022 Urea nitrogen [Mass/Vol] 26 mg/dL 7-18 [facility] Serum perinuclear neutrophil cytoplasmic antibody titer by immunofluorescenceOrdered By: Philip Drummond on 11-15-2022 Neutrophil cytoplasmic Ab.perinuclear IF (S) [Titer] <1:20 titer Neg:<1:20 [facility] Comment on above: The presence of posi tive fluorescence exhibiting P-ANCA orC-ANCA patterns alone is not specific for the diagnosis ofWegener's Granulomatosis (WG) or microscopic polyangiitis.Decisions about treatment should not be based solely onANCA IFA results. The International ANCA Group Consensusrecommends follow up testing of positive sera with both FL-3 and MPO-ANCA enzyme immunoassays. As many as 5% serumsamples are positive only by EIA. Ref. AM J Clin [id number];111:507-513. Serum tissue transglutaminas e IgA antibody assay (units/volume)Ordered By: Philip Drummond on 11-15-2022 tTG IgA Qn (S) <2 U/mL 0-3 [facility] Comment on above: Negative 0 - 3 Weak Positive 4 - 10 Positive >10 Tissue Transglutaminase (tTG) has been identified as the endomysial antigen. Studies have demonstr- ated that endomysial IgA antibodies have over 99% specificity for gluten sensitive enteropathy. Thin prep Papanicolaou smear with manual screeningOrdered By: Philip Drummond on 11-15-2022 Thin prep Papanicolaou smear with manual screening 12 U/L 15-37 [facility] Thin prep Papanicolaou smear with manual screening 7 5-15 [facility] Thin prep Papanicolaou smear with manual screening 1.1 0.7-1.7 [facility] Total protein bloodOrdered B y: Philipbridger Drmumond on 11-15-2022 Protein [Mass/Vol] 7.5 g/dL 6.0-8.5 [facility] Whole blood hemoglobin A1c/t otal hemoglobin ratio (mass fraction)Ordered By: Philip Drummond on 11-15-2022 HbA1c (Bld) [Mass fraction] 7.2 % 3.8-5.6 [facility] Comment on above: Normal < 5.7 % Predi abetic 5.7 - 6.4 % Diabetic >or= 6.5 % Please note range changes. Culture, urineOrdered By: Thea Negron on 11-10-2022 Bacteria identified Cx Nom (U) Mixed Gram Pos & Gram Neg Org [facility] Cervical or vagninal specime n microscopic examination by cytology stain (reported asOrdered By: Marga Negron on 11-08-2022 Cytology report Cyto stain Doc (Cvx/Vag) Comment . [facility] Comment on above: The Pap smear [...] Mixed Gram Pos & Gram Neg Org [facility] Detection in cervical specim en of any of human papilloma virus (HPV) 16, 18, 31, 33,Ordered By: Marga Negron on 11-08-2022 HPV 16+18+31+33+35+39+45+51+52+ 56+58+59+66+68 DNA Probe+sig amp Ql (Cvx) Negative Negative [facility] Comment on above: This nucleic acid am plification test detects fourteen high-risk HPV types (16,18,31,33,35,39,45,51,52,56,58,59,66,68)without differentiation. Laboratory - CytologyOrdered By: Marga Negron on 11-08-2022 Legal Associate Cyto stain Nom (Cvx/Vag) [ID] Comment . [facility] Comment on above: Gladys lopez, Automotive Warranty Administrator (ASCP) Laboratory - Miscellaneous t estsOrdered By: Marga Negron on 11-08-2022 Service comment (Unsp spec) [Interp] Comment . [facility] Comment on above: This liquid based Th inPrep(R) pap test was screened withthe use of an image guided system. Service comment (Unsp spec) [Interp] . . [facility] Liquid-based cerv Pap + CT/G C by DARLIN w reflex to high-risk HPV for ASCUSOrdered By: Marga Negron on 11-08-2022 Cytology report Cyto stain.thin prep Doc (Cvx/Vag) Comment . [facility] Comment on above: Criteria not met, HP V Genotype not performed.Performed at: - [facility] [id number] Director: Elena Pascal MD, Phone: [phone] at: = - [facility] [address] [id number] Director: Elena Pascal MD, Phone: [phone] No Panel InformationOrdered By: Marga Negron on 11-08-2022 Pathology report final diagnosis Narrative Comment . [facility] Comment on above: NEGATIVE FOR INTRAEP ITHELIAL LESION OR MALIGNANCY. COVID-19 virus antigen assay Ordered By: Dr. Green on 10-04-2022 SARS-CoV-2 (COVID-19) Ag IA.rapid Ql (Resp) Not detected Not Detect [facility] Comment on above: Normal Reference Ran ge: Not DetectedMethod:(RT-PCR) real-time reverse transcriptase PCRLuminex Cine-tal Systems Instrument*The Food and Drug Administration (FDA) has issued an Emergency Use Authorization (EAU) for the JOSEPHINE SARS-CoV-2 Assay for the rapid detection of the virus that causes COVID-19. This test has been validated, but the FDAs independent review of this validation is pending.*Negative [...] on 10-04-2022 Influenza Types A,B Direct FA ([facility]) [facility] No Panel InformationOrdered By: Dr. Green on 10-04-2022 Influenza Types A,B Direct FA ([facility]) [facility] RSV Ag EIAOrdered By: Taras petit on 10-04-2022 RSV Ag Immune stain Ql (Tiss) [facility] RSV Ag EIAOrdered By: Dr. Hernandez petit on 10-04-2022 RSV Ag Immune stain Ql (Tiss) [facility] Absolute lymphocyte countOrd ered By: Dr. Green on 08-04-2022 Lymphocytes Auto (Unsp spec) [#/Vol] 2.11 10*3/uL 0.83-4.51 [facility] Basophil percentageOrdered B y: Dr. Green on 08-04-2022 Basophils/100 WBC (Bld) 0.9 % 0-1 [facility] Bilirubin [Mass/Vol] 0.30 mg/dL 0.20-1.00 [facility] Comment on above: For patients on eltr ombopag therapy, use of Dimension [place] TBIL is not recommended. Chloride [Moles/Vol] 107 mmol/L 98-107 [facility] Eosinophils/100 WBC (Bld) 1.6 % 0-5 [facility] Glucose [Mass/Vol] 136 mg/dL 74-106 [facility] Comment on above: Fasting Glucose resu lt greater than or equal to 126 mg/dL suggests DIABETES MELLITUS per A.D.A. criteria. Neutrophils (Bld) [#/Vol] 4.5 10*3/uL 2.0-7.7 [facility] Neutrophils/100 WBC (Bld) 60.8 % 47-70 [facility] Potassium [Moles/Vol] 4.0 mmol/L 3.5-5.1 [facility] Comment on above: Slight Hemolysis, Re sult may be falsely increased. Protein [Mass/Vol] 7.8 g/dL 6.4-8.2 [facility] Sodium [Moles/Vol] 140 mmol/L 136-145 [facility] WBC (Bld) [#/Vol] 7.4 10*3/uL 4.4-11.0 [facility] Blood erythrocytes count (nu mber/volume)Ordered By: Dr. Green on 08-04-2022 RBC (Bld) [#/Vol] 4.68 10*6/uL 4.2-5.4 [facility] Blood hemoglobin measurement (mass/volume)Ordered By: Dr. Green on 08-04-2022 Hemoglobin (Bld) [Mass/Vol] 13.0 g/dL 12.0-15. 0 [facility] Blood lymphocytes/100 leukoc ytesOrdered By: Dr. Green on 08-04-2022 Lymphocytes/100 WBC (Bld) 28.4 % 19-41 [facility] Blood monocytes/100 leukocyt esOrdered By: Dr. Green on 08-04-2022 Monocytes/100 WBC (Bld) 7.9 % 0-10 [facility] Blood platelet mean volumeOr dered By: Dr. Green on 08-04-2022 Platelet mean volume (Bld) [Entitic vol] 12.7 fL 6.2-12.0 [facility] Determination of erythrocyte mean corpuscular volume (MCV)Ordered By: Dr. Green on 08-04-2022 MCV (RBC) [Entitic vol] 88.2 fL 81-99 [facility] Hematocrit Auto (Bld) [Volum e fraction]Ordered By: Dr. Green on 08-04-2022 Hematocrit (Bld) [Volume fraction] 41.3 % 37-47 [facility] Laboratory - Chemistry and C hemistry - challengeOrdered By: Dr. Green on 08-04-2022 ALP [Catalytic activity/Vol] 91 U/L 45-117 [facility] ALT [Catalytic activity/Vol] 26 U/L 13-56 [facility] CO2 [Moles/Vol] 24.0 mmol/L 21.0-32.0 [facility] Globulin (S) [Mass/Vol] 4.3 g/dL 2.2-4.2 [facility] Urea nitrogen/Creatinine [Mass ratio] 19.8 mg/mg 10-20 [facility] Laboratory - Hematology and Cell countsOrdered By: Dr. Green on 08-04-2022 Erythrocyte distribution width (RBC) [Entitic vol] 43.8 fL 35.1-43.9 [facility] Erythrocyte distribution width (RBC) [Ratio] 13.5 % 11.6-14.6 [facility] Immature granulocytes/100 WBC (Bld) 0.400 % 0.0-0.9 [facility] Comment on above: IG% - Immature Granu locytes (promyelocytes, myelocytes and metamyelocytes) > 1% indicates that a LEFT SHIFT is Present. MCH (RBC) [Entitic mass] 27.8 pg 27.0-32.0 [facility] Nucleated RBC/100 WBC (Bld) [Ratio] 0 % 0-5 [facility] MCHC Auto (RBC) [Mass/Vol]Or dered By: Dr. Green on 08-04-2022 MCHC (RBC) [Mass/Vol] 31.5 g/dL 32-36 [facility] No Panel InformationOrdered By: Dr. Green on 08-04-2022 Estimated GFR (MDRD) Amer 69 mL/min >60 [facility] Comment on above: GFR Calc Estimated GFR (MDRD) Non-Af Amer 57 mL/min >60 [facility] Comment on above: Non- GFR Calc Thyroid Stimulating Hormone (TSH) 1.98 uIU/mL 0.358-3.74 [facility] Vitamin D 25-Hydroxy 28.3 ng/mL [facility] Comment on above: Vitamin D 25(OH) Sta tus Range Deficiency <20 ng/mL (50nmol/L) Insufficiency 20 - 30 ng/mL (50 - 75 nmol/L) Sufficiency 30 - 100 ng/mL (75 - 250 nmol/L) Toxicity >100 ng/mL (>250 nmol/L) Platelets bldOrdered By: Dr. Green on 08-04-2022 Platelets (Bld) [#/Vol] 304 10*3/uL 150-450 [facility] Serum or plasma albumin yuniel urement (mass/volume)Ordered By: Dr. Green on 08-04-2022 Albumin [Mass/Vol] 3.5 g/dL 3.2-5.0 [facility] Serum or plasma albumin/glob ulin mass ratioOrdered By: Dr. Green on 08-04-2022 Albumin/Globulin [Mass ratio] 0.8 {ratio} 0.9-2.4 [facility] Serum or plasma calcium yuinel urement (mass/volume)Ordered By: Dr. Green on 08-04-2022 Calcium [Mass/Vol] 9.6 mg/dL 8.5-10.1 [facility] Serum or plasma creatinine m easurement (mass/volume)Ordered By: Dr. Green on 08-04-2022 Creatinine [Mass/Vol] 1.01 mg/dL 0.55-1.02 [facility] Comment on above: The validity of the calculated GFR & GFRAA in patients over 70 years has not been determined. Clinical correlation is essential. Serum or plasma urea nitroge n measurement (mass/volume)Ordered By: Dr. Green on 08-04-2022 Urea nitrogen [Mass/Vol] 20 mg/dL 7-18 [facility] Thin prep Papanicolaou smear with manual screeningOrdered By: Dr. Green on 08-04-2022 Thin prep Papanicolaou smear with manual screening 16 U/L 15-37 [facility] Comment on above: Slight Hemolysis, Re sult may be falsely increased. Thin prep Papanicolaou smear with manual screening 9 5-15 [facility] Culture, urineOrdered By: Zeyad Sutton on 07-19-2022 Bacteria identified Cx Nom (U) Enterococcus faecalis [facility] Laboratory - Chemistry and C hemistry - challengeon 07-15-2022 Bilirubin Ql (U) Negative [facility] Glucose Ql (U) Negative [facility] Ketones Ql (U) Negative [facility] pH (U) 5.0 [pH] [facility] Specific gravity (U) [Rel density] 1.015 [facility] Urobilinogen (U) [Mass/Vol] Negative [facility] Laboratory - Hematology and Cell countson 07-15-2022 Hemoglobin Ql (U) Negative [facility] Laboratory - Specimen inform ationon 07-15-2022 Clarity (U) Clear [facility] Color (U) YELLOW [facility] Laboratory - Urinalysison Nitrite Ql (U) Negative [facility] Protein Ql (U) Negative [facility] No Panel Informationon 07-15 Urine Leukocytes Negatve [facility] Urine Non-Hemolyzed Blood Negative [facility] Absolute lymphocyte countOrd ered By: May Jacobs on 04-21-2022 Lymphocytes Auto (Unsp spec) [#/Vol] 2.37 10*3/uL 0.83-4.51 [facility] Basophil percentageOrdered B y: May Jacobs on 04-21-2022 Basophils/100 WBC (Bld) 0.8 % 0-1 [facility] Chloride [Moles/Vol] 101 mmol/L 98-107 [facility] Eosinophils/100 WBC (Bld) 1.7 % 0-5 [facility] Glucose [Mass/Vol] 321 mg/dL 74-106 [facility] Comment on above: Glucose result great er than or equal to 200 mg/dLsuggests DIABETES MELLITUS per A.D.A. criteria. Neutrophils (Bld) [#/Vol] 5.8 10*3/uL 2.0-7.7 [facility] Neutrophils/100 WBC (Bld) 64.0 % 47-70 [facility] Potassium [Moles/Vol] 4.2 mmol/L 3.5-5.1 [facility] Sodium [Moles/Vol] 137 mmol/L 136-145 [facility] WBC (Bld) [#/Vol] 9.1 10*3/uL 4.4-11.0 [facility] Blood erythrocytes count (nu mber/volume)Ordered By: May Jacobs on 04-21-2022 RBC (Bld) [#/Vol] 4.42 10*6/uL 4.2-5.4 [facility] Blood hemoglobin measurement (mass/volume)Ordered By: May Jacobs on 04-21-2022 Hemoglobin (Bld) [Mass/Vol] 12.5 g/dL 12.0-15. 0 [facility] Blood lymphocytes/100 leukoc ytesOrdered By: May Jacobs on 04-21-2022 Lymphocytes/100 WBC (Bld) 26.1 % 19-41 [facility] Blood monocytes/100 leukocyt esOrdered By: May Jacobs on 04-21-2022 Monocytes/100 WBC (Bld) 7.2 % 0-10 [facility] Blood platelet mean volumeOr dered By: May Jacobs on 04-21-2022 Platelet mean volume (Bld) [Entitic vol] 11.8 fL 6.2-12.0 [facility] Determination of erythrocyte mean corpuscular volume (MCV)Ordered By: May Jacobs on 04-21-2022 MCV (RBC) [Entitic vol] 89.4 fL 81-99 [facility] Hematocrit Auto (Bld) [Volum e fraction]Ordered By: May Jacobs on 04-21-2022 Hematocrit (Bld) [Volume fraction] 39.5 % 37-47 [facility] Laboratory - Chemistry and C hemistry - challengeOrdered By: May Jacobs on 04-21-2022 CO2 [Moles/Vol] 30.0 mmol/L 21.0-32.0 [facility] Natriuretic peptide B (Bld) [Mass/Vol] 40.1 pg/mL 0-100 [facility] Urea nitrogen/Creatinine [Mass ratio] 22.5 mg/mg 10-20 [facility] - Hematology and Cell countsOrdered By: May Jacobs on 04-21-2022 Erythrocyte distribution width (RBC) [Entitic vol] 39.9 fL 35.1-43.9 [facility] Erythrocyte distribution width (RBC) [Ratio] 12.1 % 11.6-14.6 [facility] Immature granulocytes/100 WBC (Bld) 0.200 % 0.0-0.9 [facility] Comment on above: IG% - Immature Granu locytes (promyelocytes, myelocytes and metamyelocytes) > 1% indicates that a LEFT SHIFT is Present. MCH (RBC) [Entitic mass] 28.3 pg 27.0-32.0 [facility] Nucleated RBC/100 WBC (Bld) [Ratio] 0 % 0-5 [facility] MCHC Auto (RBC) [Mass/Vol]Or dered By: May Jacobs on 04-21-2022 MCHC (RBC) [Mass/Vol] 31.6 g/dL 32-36 [facility] No Panel InformationOrdered By: May Jacobs on 04-21-2022 Estimated GFR (MDRD) Amer 76 mL/min >60 [facility] Comment on above: GFR Calc Estimated GFR (MDRD) Non-Af Amer 63 mL/min >60 [facility] Comment on above: Non- GFR Calc Platelets bldOrdered By: Cayden Jacobs on 04-21-2022 Platelets (Bld) [#/Vol] 280 10*3/uL 150-450 [facility] Serum or plasma calcium yuniel urement (mass/volume)Ordered By: May Jacobs on 04-21-2022 Calcium [Mass/Vol] 9.3 mg/dL 8.5-10.1 [facility] Serum or plasma creatinine m easurement (mass/volume)Ordered By: May Jacobs on 04-21-2022 Creatinine [Mass/Vol] 0.93 mg/dL 0.55-1.02 [facility] Comment on above: The validity of the calculated GFR & GFRAA in patients over 70 years has not been determined. Clinical correlation is essential. Serum or plasma urea nitroge n measurement (mass/volume)Ordered By: May Jacobs on 04-21-2022 Urea nitrogen [Mass/Vol] 21 mg/dL 7-18 [facility] Thin prep Papanicolaou smear with manual screeningOrdered By: May Jacobs on 04-21-2022 Thin prep Papanicolaou smear with manual screening 6 5-15 [facility] Absolute lymphocyte countOrd ered By: Dr. Green on 03-17-2022 Lymphocytes Auto (Unsp spec) [#/Vol] 2.28 10*3/uL 0.83-4.51 [facility] Basophil percentageOrdered B y: Dr. Green on 03-17-2022 Basophils/100 WBC (Bld) 0.9 % 0-1 [facility] Bilirubin [Mass/Vol] 0.20 mg/dL 0.20-1.00 [facility] Comment on above: For patients on eltr ombopag therapy, use of Dimension [place] TBIL is not recommended. Chloride [Moles/Vol] 106 mmol/L 98-107 [facility] Eosinophils/100 WBC (Bld) 1.0 % 0-5 [facility] Glucose [Mass/Vol] 185 mg/dL 74-106 [facility] Comment on above: Fasting Glucose resu lt greater than or equal to 126 mg/dL suggests DIABETES MELLITUS per A.D.A. criteria. Neutrophils (Bld) [#/Vol] 5.1 10*3/uL 2.0-7.7 [facility] Neutrophils/100 WBC (Bld) 62.7 % 47-70 [facility] Potassium [Moles/Vol] 4.2 mmol/L 3.5-5.1 [facility] Protein [Mass/Vol] 7.3 g/dL 6.4-8.2 [facility] Sodium [Moles/Vol] 139 mmol/L 136-145 [facility] WBC (Bld) [#/Vol] 8.1 10*3/uL 4.4-11.0 [facility] Blood erythrocytes count (nu mber/volume)Ordered By: Dr. Green on 03-17-2022 RBC (Bld) [#/Vol] 4.07 10*6/uL 4.2-5.4 [facility] Blood hemoglobin measurement (mass/volume)Ordered By: Dr. Green on 03-17-2022 Hemoglobin (Bld) [Mass/Vol] 12.2 g/dL 12.0-15. 0 [facility] Blood lymphocytes/100 leukoc ytesOrdered By: Dr. Green on 03-17-2022 Lymphocytes/100 WBC (Bld) 28.2 % 19-41 [facility] Blood monocytes/100 leukocyt esOrdered By: Dr. Green on 03-17-2022 Monocytes/100 WBC (Bld) 7.0 % 0-10 [facility] Blood platelet mean volumeOr dered By: Dr. Green on 03-17-2022 Platelet mean volume (Bld) [Entitic vol] 12.5 fL 6.2-12.0 [facility] Determination of erythrocyte mean corpuscular volume (MCV)Ordered By: Dr. Green on 03-17-2022 MCV (RBC) [Entitic vol] 90.2 fL 81-99 [facility] Hematocrit Auto (Bld) [Volum e fraction]Ordered By: Dr. Green on 03-17-2022 Hematocrit (Bld) [Volume fraction] 36.7 % 37-47 [facility] Laboratory - Chemistry and C hemistry - challengeOrdered By: Dr. Green on 03-17-2022 ALP [Catalytic activity/Vol] 77 U/L 45-117 [facility] ALT [Catalytic activity/Vol] 27 U/L 13-56 [facility] CO2 [Moles/Vol] 27.0 mmol/L 21.0-32.0 [facility] Globulin (S) [Mass/Vol] 4.0 g/dL 2.2-4.2 [facility] Urea nitrogen/Creatinine [Mass ratio] 19.6 mg/mg 10-20 [facility] Laboratory - Hematology and Cell countsOrdered By: Dr. Green on 03-17-2022 Erythrocyte distribution width (RBC) [Entitic vol] 39.8 fL 35.1-43.9 [facility] Erythrocyte distribution width (RBC) [Ratio] 12.1 % 11.6-14.6 [facility] Immature granulocytes/100 WBC (Bld) 0.200 % 0.0-0.9 [facility] Comment on above: IG% - Immature Granu locytes (promyelocytes, myelocytes and metamyelocytes) > 1% indicates that a LEFT SHIFT is Present. MCH (RBC) [Entitic mass] 30.0 pg 27.0-32.0 [facility] Nucleated RBC/100 WBC (Bld) [Ratio] 0 % 0-5 [facility] MCHC Auto (RBC) [Mass/Vol]Or dered By: Dr. Green on 03-17-2022 MCHC (RBC) [Mass/Vol] 33.2 g/dL 32-36 [facility] No Panel InformationOrdered By: Dr. Green on 03-17-2022 Estimated GFR (MDRD) Amer 73 mL/min >60 [facility] Comment on above: GFR Calc Estimated GFR (MDRD) Non-Af Amer 60 mL/min >60 [facility] Comment on above: Non- GFR Calc Thyroid Stimulating Hormone (TSH) 2.18 uIU/mL 0.358-3.74 [facility] Vitamin D 25-Hydroxy 36.6 ng/mL [facility] Comment on above: Vitamin D 25(OH) Sta tus Range Deficiency <20 ng/mL (50nmol/L) Insufficiency 20 - 30 ng/mL (50 - 75 nmol/L) Sufficiency 30 - 100 ng/mL (75 - 250 nmol/L) Toxicity >100 ng/mL (>250 nmol/L) Platelets bldOrdered By: Dr. Green on 03-17-2022 Platelets (Bld) [#/Vol] 282 10*3/uL 150-450 [facility] Serum or plasma albumin yuniel urement (mass/volume)Ordered By: Dr. Green on 03-17-2022 Albumin [Mass/Vol] 3.3 g/dL 3.2-5.0 [facility] Serum or plasma albumin/glob ulin mass ratioOrdered By: Dr. Green on 03-17-2022 Albumin/Globulin [Mass ratio] 0.8 {ratio} 0.9-2.4 [facility] Serum or plasma calcium yuniel urement (mass/volume)Ordered By: Dr. Green on 03-17-2022 Calcium [Mass/Vol] 9.3 mg/dL 8.5-10.1 [facility] Serum or plasma creatinine m easurement (mass/volume)Ordered By: Dr. Green on 03-17-2022 Creatinine [Mass/Vol] 0.97 mg/dL 0.55-1.02 [facility] Comment on above: The validity of the calculated GFR & GFRAA in patients over 70 years has not been determined. Clinical correlation is essential. Serum or plasma urea nitroge n measurement (mass/volume)Ordered By: Dr. Green on 03-17-2022 Urea nitrogen [Mass/Vol] 19 mg/dL 7-18 [facility] Thin prep Papanicolaou smear with manual screeningOrdered By: Dr. Green on 03-17-2022 Thin prep Papanicolaou smear with manual screening 8 U/L 15-37 [facility] Thin prep Papanicolaou smear with manual screening 6 5-15 [facility] Laboratory - Chemistry and C hemistry - challengeon 11-11-2021 CK [Catalytic activity/Vol] 191 U/L 26-192 [facility] Work Phone: Myoglobin [Mass/Vol] 320 ng/mL 25-58 [facility] Work Phone: Comment on above: Performed at: [address] [id number] Director: John Lopez PhD, Phone: [phone] No Panel Informationon 11-11 Troponin I High Sensitivity 6 pg/mL 3.0-54.0 [facility] Work Phone: Comment on above: Please Note: New Loni t Units and Gender Specific Reference Ranges. For more information see Policy Stat Procedure [place] High Sensitivity Troponin (TNIH) and attachments. Absolute lymphocyte counton 11-06-2021 Lymphocytes Auto (Unsp spec) [#/Vol] 1.71 10*3/uL 0.83-4.51 [facility] Work Phone: Basophil percentageon 2021 Basophils/100 WBC (Bld) 0.2 % 0-1 [facility] Work Phone: Bilirubin [Mass/Vol] 0.60 mg/dL 0.20-1.00 [facility] Work Phone: Comment on above: For patients on eltr ombopag therapy, use of Dimension [place] TBIL is not recommended. Chloride [Moles/Vol] 106 mmol/L 98-107 [facility] Work Phone: Eosinophils/100 WBC (Bld) 0.2 % 0-5 [facility] Work Phone: Glucose [Mass/Vol] 195 mg/dL 74-106 [facility] Work Phone: Comment on above: Fasting Glucose resu lt greater than or equal to 126 mg/dL suggests DIABETES MELLITUS per A.D.A. criteria. Neutrophils (Bld) [#/Vol] 10.4 10*3/uL 2.0-7.7 [facility] Work Phone: Neutrophils/100 WBC (Bld) 79.5 % 47-70 [facility] Work Phone: Potassium [Moles/Vol] 4.1 mmol/L 3.5-5.1 [facility] Work Phone: Protein [Mass/Vol] 7.5 g/dL 6.4-8.2 [facility] Work Phone: Sodium [Moles/Vol] 138 mmol/L 136-145 [facility] Work Phone: WBC (Bld) [#/Vol] 13.1 10*3/uL 4.4-11.0 [facility] Work Phone: Blood erythrocytes count (nu mber/volume)on 11-06-2021 RBC (Bld) [#/Vol] 4.80 10*6/uL 4.2-5.4 [facility] Work Phone: Blood hemoglobin measurement (mass/volume)on 11-06-2021 Hemoglobin (Bld) [Mass/Vol] 14.0 g/dL 12.0-15. 0 [facility] Work Phone: Blood lymphocytes/100 leukoc yteson 11-06-2021 Lymphocytes/100 WBC (Bld) 13.1 % 19-41 [facility] Work Phone: Blood monocytes/100 leukocyt eson 11-06-2021 Monocytes/100 WBC (Bld) 6.8 % 0-10 [facility] Work Phone: Blood platelet mean volumeon 11-06-2021 Platelet mean volume (Bld) [Entitic vol] 11.8 fL 6.2-12.0 [facility] Work Phone: Determination of erythrocyte mean corpuscular volume (MCV)on 11-06-2021 MCV (RBC) [Entitic vol] 87.1 fL 81-99 [facility] Work Phone: Direct bilirubinon 2 Bilirubin.direct [Mass/Vol] 0.14 mg/dL 0.00-0.3 0 [facility] Work Phone: Hematocrit Auto (Bld) [Volum e fraction]on 11-06-2021 Hematocrit (Bld) [Volume fraction] 41.8 % 37-47 [facility] Work Phone: Laboratory - Chemistry and C hemistry - challengeon 11-06-2021 ALP [Catalytic activity/Vol] 89 U/L 45-117 [facility] Work Phone: ALT [Catalytic activity/Vol] 20 U/L 13-56 [facility] Work Phone: CO2 [Moles/Vol] 27.0 mmol/L 21.0-32.0 [facility] Work Phone: Globulin (S) [Mass/Vol] 4.2 g/dL 2.2-4.2 [facility] Work Phone: Lipase [Catalytic activity/Vol] 91 U/L 73-393 [facility] Work Phone: Urea nitrogen/Creatinine [Mass ratio] 25.7 mg/mg 10-20 [facility] Work Phone: Laboratory - Hematology and Cell countson 11-06-2021 Erythrocyte distribution width (RBC) [Entitic vol] 40.7 fL 35.1-43.9 [facility] Work Phone: Erythrocyte distribution width (RBC) [Ratio] 12.9 % 11.6-14.6 [facility] Work Phone: Immature granulocytes/100 WBC (Bld) 0.200 % 0.0-0.9 [facility] Work Phone: Comment on above: IG% - Immature Granu locytes (promyelocytes, myelocytes and metamyelocytes) > 1% indicates that a LEFT SHIFT is Present. MCH (RBC) [Entitic mass] 29.2 pg 27.0-32.0 [facility] Work Phone: Nucleated RBC/100 WBC (Bld) [Ratio] 0 % 0-5 [facility] Work Phone: MCHC Auto (RBC) [Mass/Vol]on 11-06-2021 MCHC (RBC) [Mass/Vol] 33.5 g/dL 32-36 [facility] Work Phone: No Panel Informationon 11-06 Estimated Creatinine Clearance Calc 57.22 ml/min [facility] Work Phone: Estimated GFR (MDRD) Amer 66 mL/min >60 [facility] Work Phone: Comment on above: GFR Calc Estimated GFR (MDRD) Non-Af Amer 55 mL/min >60 [facility] Work Phone: Comment on above: Non- GFR Calc Platelets bldon 11-06-2021 Platelets (Bld) [#/Vol] 241 10*3/uL 150-450 [facility] Work Phone: Serum or plasma albumin yuniel urement (mass/volume)on 11-06-2021 Albumin [Mass/Vol] 3.3 g/dL 3.2-5.0 [facility] Work Phone: Serum or plasma calcium yuniel urement (mass/volume)on 11-06-2021 Calcium [Mass/Vol] 9.2 mg/dL 8.5-10.1 [facility] Work Phone: Serum or plasma creatinine m easurement (mass/volume)on 11-06-2021 Creatinine [Mass/Vol] 1.05 mg/dL 0.55-1.02 [facility] Work Phone: Comment on above: The validity of the calculated GFR & GFRAA in patients over 70 years has not been determined. Clinical correlation is essential. Serum or plasma urea nitroge n measurement (mass/volume)on 11-06-2021 Urea nitrogen [Mass/Vol] 27 mg/dL 7-18 [facility] Work Phone: Thin prep Papanicolaou smear with manual screeningon 11-06-2021 Thin prep Papanicolaou smear with manual screening 12 U/L 15-37 [facility] Work Phone: Thin prep Papanicolaou smear with manual screening 5 5-15 [facility] Work Phone: Absolute lymphocyte counton 10-25-2021 Lymphocytes Auto (Unsp spec) [#/Vol] 1.96 10*3/uL 0.83-4.51 [facility] Work Phone: Basophil percentageon 2021 Basophils/100 WBC (Bld) 0.6 % 0-1 [facility] Work Phone: Bilirubin [Mass/Vol] 0.30 mg/dL 0.20-1.00 [facility] Work Phone: [phone] Comment on above: For patients on eltr ombopag therapy, use of Dimension [place] TBIL is not recommended. Chloride [Moles/Vol] 103 mmol/L 98-107 [facility] Work Phone: Eosinophils/100 WBC (Bld) 1.4 % 0-5 [facility] Work Phone: Glucose [Mass/Vol] 273 mg/dL 74-106 [facility] Work Phone: [phone] Comment on above: Glucose result great er than or equal to 200 mg/dLsuggests DIABETES MELLITUS per A.D.A. criteria. Neutrophils (Bld) [#/Vol] 5.1 10*3/uL 2.0-7.7 [facility] Work Phone: Neutrophils/100 WBC (Bld) 65.7 % 47-70 [facility] Work Phone: Potassium [Moles/Vol] 4.1 mmol/L 3.5-5.1 [facility] Work Phone: Protein [Mass/Vol] 7.6 g/dL 6.4-8.2 [facility] Work Phone: Sodium [Moles/Vol] 138 mmol/L 136-145 [facility] Work Phone: WBC (Bld) [#/Vol] 7.8 10*3/uL 4.4-11.0 [facility] Work Phone: Blood erythrocytes count (nu mber/volume)on 10-25-2021 RBC (Bld) [#/Vol] 4.32 10*6/uL 4.2-5.4 [facility] Work Phone: Blood hemoglobin measurement (mass/volume)on 10-25-2021 Hemoglobin (Bld) [Mass/Vol] 12.5 g/dL 12.0-15. 0 [facility] Work Phone: Blood lymphocytes/100 leukoc yteson 10-25-2021 Lymphocytes/100 WBC (Bld) 25.3 % 19-41 [facility] Work Phone: Blood monocytes/100 leukocyt eson 10-25-2021 Monocytes/100 WBC (Bld) 6.7 % 0-10 [facility] Work Phone: Blood platelet mean volumeon 10-25-2021 Platelet mean volume (Bld) [Entitic vol] 12.9 fL 6.2-12.0 [facility] Work Phone: Determination of erythrocyte mean corpuscular volume (MCV)on 10-25-2021 MCV (RBC) [Entitic vol] 88.2 fL 81-99 [facility] Work Phone: Hematocrit Auto (Bld) [Volum e fraction]on 10-25-2021 Hematocrit (Bld) [Volume fraction] 38.1 % 37-47 [facility] Work Phone: Laboratory - Chemistry and C hemistry - challengeon 10-25-2021 ALP [Catalytic activity/Vol] 75 U/L 45-117 [facility] Work Phone: ALT [Catalytic activity/Vol] 28 U/L 13-56 [facility] Work Phone: CO2 [Moles/Vol] 28.0 mmol/L 21.0-32.0 [facility] Work Phone: Globulin (S) [Mass/Vol] 4.1 g/dL 2.2-4.2 [facility] Work Phone: Urea nitrogen/Creatinine [Mass ratio] 24.3 mg/mg 10-20 [facility] Work Phone: Laboratory - Hematology and Cell countson 10-25-2021 Erythrocyte distribution width (RBC) [Entitic vol] 41.9 fL 35.1-43.9 [facility] Work Phone: Erythrocyte distribution width (RBC) [Ratio] 13.0 % 11.6-14.6 [facility] Work Phone: Immature granulocytes/100 WBC (Bld) 0.300 % 0.0-0.9 [facility] Work Phone: Comment on above: IG% - Immature Granu locytes (promyelocytes, myelocytes and metamyelocytes) > 1% indicates that a LEFT SHIFT is Present. MCH (RBC) [Entitic mass] 28.9 pg 27.0-32.0 [facility] Work Phone: Nucleated RBC/100 WBC (Bld) [Ratio] 0 % 0-5 [facility] Work Phone: MCHC Auto (RBC) [Mass/Vol]on 10-25-2021 MCHC (RBC) [Mass/Vol] 32.8 g/dL 32-36 [facility] Work Phone: No Panel Informationon 10-25 Estimated GFR (MDRD) Amer 60 mL/min >60 [facility] Work Phone: Comment on above: GFR Calc Estimated GFR (MDRD) Non-Af Amer 49 mL/min >60 [facility] Work Phone: Comment on above: Non- GFR Calc Thyroid Stimulating Hormone (TSH) 1.37 uIU/mL 0.358-3.74 [facility] Work Phone: Vitamin D 25-Hydroxy 45.8 ng/mL [facility] Work Phone: Comment on above: Vitamin D 25(OH) Sta tus Range Deficiency <20 ng/mL (50nmol/L) Insufficiency 20 - 30 ng/mL (50 - 75 nmol/L) Sufficiency 30 - 100 ng/mL (75 - 250 nmol/L) Toxicity >100 ng/mL (>250 nmol/L) Platelets bldon 10-25-2021 Platelets (Bld) [#/Vol] 239 10*3/uL 150-450 [facility] Work Phone: Serum or plasma albumin yuniel urement (mass/volume)on 10-25-2021 Albumin [Mass/Vol] 3.5 g/dL 3.2-5.0 [facility] Work Phone: Serum or plasma albumin/glob ulin mass ratioon 10-25-2021 Albumin/Globulin [Mass ratio] 0.9 {ratio} 0.9-2.4 [facility] Work Phone: Serum or plasma calcium yuniel urement (mass/volume)on 10-25-2021 Calcium [Mass/Vol] 9.4 mg/dL 8.5-10.1 [facility] Work Phone: Serum or plasma creatinine m easurement (mass/volume)on 10-25-2021 Creatinine [Mass/Vol] 1.15 mg/dL 0.55-1.02 [facility] Work Phone: Comment on above: The validity of the calculated GFR & GFRAA in patients over 70 years has not been determined. Clinical correlation is essential. Serum or plasma urea nitroge n measurement (mass/volume)on 10-25-2021 Urea nitrogen [Mass/Vol] 28 mg/dL 7-18 [facility] Work Phone: Thin prep Papanicolaou smear with manual screeningon 10-25-2021 Thin prep Papanicolaou smear with manual screening 13 U/L 15-37 [facility] Work Phone: Thin prep Papanicolaou smear with manual screening 7 5-15 [facility] Work Phone: Laboratory - Microbiology an d Antimicrobial susceptibilityon 10-18-2021 SARS-CoV-2 (COVID-19) RNA DARLIN+probe Ql (Unsp spec) Not detected [facility] Work Phone: No Panel Informationon 10-18 POC Nasal Swab Influenza A,B Not detected [facility] Work Phone: POC Nasal Swab RSV Not detected [facility] Work Phone: Absolute lymphocyte counton 07-22-2021 Lymphocytes Auto (Unsp spec) [#/Vol] 2.00 10*3/uL 0.83-4.51 [facility] Work Phone: Basophil percentageon 2021 Basophils/100 WBC (Bld) 0.7 % 0-1 [facility] Work Phone: [phone] Bilirubin [Mass/Vol] 0.10 mg/dL 0.20-1.00 [facility] Work Phone: Comment on above: For patients on eltr ombopag therapy, use of Dimension [place] TBIL is not recommended. Chloride [Moles/Vol] 105 mmol/L 98-107 [facility] Work Phone: Eosinophils/100 WBC (Bld) 1.2 % 0-5 [facility] Work Phone: Glucose [Mass/Vol] 213 mg/dL 74-106 [facility] Work Phone: Comment on above: Glucose result great er than or equal to 200 mg/dLsuggests DIABETES MELLITUS per A.D.A. criteria. Neutrophils (Bld) [#/Vol] 4.0 10*3/uL 2.0-7.7 [facility] Work Phone: Neutrophils/100 WBC (Bld) 60.3 % 47-70 [facility] Work Phone: [phone] Potassium [Moles/Vol] 3.8 mmol/L 3.5-5.1 [facility] Work Phone: [phone] Protein [Mass/Vol] 8.1 g/dL 6.4-8.2 [facility] Work Phone: Sodium [Moles/Vol] 137 mmol/L 136-145 [facility] Work Phone: WBC (Bld) [#/Vol] 6.7 10*3/uL 4.4-11.0 [facility] Work Phone: Blood erythrocytes count (nu mber/volume)on 07-22-2021 RBC (Bld) [#/Vol] 4.14 10*6/uL 4.2-5.4 [facility] Work Phone: Blood hemoglobin measurement (mass/volume)on 07-22-2021 Hemoglobin (Bld) [Mass/Vol] 11.9 g/dL 12.0-15. 0 [facility] Work Phone: Blood lymphocytes/100 leukoc yteson 07-22-2021 Lymphocytes/100 WBC (Bld) 29.9 % 19-41 [facility] Work Phone: Blood monocytes/100 leukocyt eson 07-22-2021 Monocytes/100 WBC (Bld) 7.6 % 0-10 [facility] Work Phone: Blood platelet mean volumeon 07-22-2021 Platelet mean volume (Bld) [Entitic vol] 11.3 fL 6.2-12.0 [facility] Work Phone: Determination of erythrocyte mean corpuscular volume (MCV)on 07-22-2021 MCV (RBC) [Entitic vol] 86.5 fL 81-99 [facility] Work Phone: Hematocrit Auto (Bld) [Volum e fraction]on 07-22-2021 Hematocrit (Bld) [Volume fraction] 35.8 % 37-47 [facility] Work Phone: Laboratory - Chemistry and C hemistry - challengeon 07-22-2021 ALP [Catalytic activity/Vol] 92 U/L 45-117 [facility] Work Phone: ALT [Catalytic activity/Vol] 14 U/L 13-56 [facility] Work Phone: CO2 [Moles/Vol] 26.0 mmol/L 21.0-32.0 [facility] Work Phone: Globulin (S) [Mass/Vol] 4.6 g/dL 2.2-4.2 [facility] Work Phone: Urea nitrogen/Creatinine [Mass ratio] 22.7 mg/mg 10-20 [facility] Work Phone: Laboratory - Hematology and Cell countson 07-22-2021 Erythrocyte distribution width (RBC) [Entitic vol] 38.9 fL 35.1-43.9 [facility] Work Phone: Erythrocyte distribution width (RBC) [Ratio] 12.1 % 11.6-14.6 [facility] Work Phone: Immature granulocytes/100 WBC (Bld) 0.300 % 0.0-0.9 [facility] Work Phone: Comment on above: IG% - Immature Granu locytes (promyelocytes, myelocytes and metamyelocytes) > 1% indicates that a LEFT SHIFT is Present. MCH (RBC) [Entitic mass] 28.7 pg 27.0-32.0 [facility] Work Phone: Nucleated RBC/100 WBC (Bld) [Ratio] 0 % 0-5 [facility] Work Phone: MCHC Auto (RBC) [Mass/Vol]on 07-22-2021 MCHC (RBC) [Mass/Vol] 33.2 g/dL 32-36 [facility] Work Phone: No Panel Informationon 07-22 Estimated GFR (MDRD) Amer 77 mL/min >60 [facility] Work Phone: Comment on above: GFR Calc Estimated GFR (MDRD) Non-Af Amer 63 mL/min >60 [facility] Work Phone: Comment on above: Non- GFR Calc Hepatitis C Antibody Non-Reactive Nonreactive [facility] Work Phone: Comment on above: Non Reactive: < 0.8 Equivocal: >/= 0.8 to < 1.0 Reactive: >/= 1.0The CDC recommends that a reactive/equivocal HCV antibody result be followed up by the HCV Nucleic Acid Amplificationtest (379454) Thyroid Stimulating Hormone (TSH) 2.30 uIU/mL 0.358-3.74 [facility] Work Phone: Vitamin D 25-Hydroxy 53.5 ng/mL [facility] Work Phone: Comment on above: Vitamin D 25(OH) Sta tus Range Deficiency <20 ng/mL (50nmol/L) Insufficiency 20 - 30 ng/mL (50 - 75 nmol/L) Sufficiency 30 - 100 ng/mL (75 - 250 nmol/L) Toxicity >100 ng/mL (>250 nmol/L) Platelets bldon 07-22-2021 Platelets (Bld) [#/Vol] 351 10*3/uL 150-450 [facility] Work Phone: Serum or plasma albumin yuniel urement (mass/volume)on 07-22-2021 Albumin [Mass/Vol] 3.5 g/dL 3.2-5.0 [facility] Work Phone: Serum or plasma albumin/glob ulin mass ratioon 07-22-2021 Albumin/Globulin [Mass ratio] 0.8 {ratio} 0.9-2.4 [facility] Work Phone: Serum or plasma calcium yuniel urement (mass/volume)on 07-22-2021 Calcium [Mass/Vol] 9.2 mg/dL 8.5-10.1 [facility] Work Phone: Serum or plasma creatinine m easurement (mass/volume)on 07-22-2021 Creatinine [Mass/Vol] 0.92 mg/dL 0.55-1.02 [facility] Work Phone: Comment on above: The validity of the calculated GFR & GFRAA in patients over 70 years has not been determined. Clinical correlation is essential. Serum or plasma urea nitroge n measurement (mass/volume)on 07-22-2021 Urea nitrogen [Mass/Vol] 21 mg/dL 7-18 [facility] Work Phone: Thin prep Papanicolaou smear with manual screeningon 07-22-2021 Thin prep Papanicolaou smear with manual screening 8 U/L 15-37 [facility] Work Phone: Thin prep Papanicolaou smear with manual screening 6 5-15 [facility] Work Phone: Absolute lymphocyte counton 07-15-2021 Lymphocytes Auto (Unsp spec) [#/Vol] 2.32 10*3/uL 0.83-4.51 [facility] Work Phone: Basophil percentageon 2021 Basophils/100 WBC (Bld) 0.4 % 0-1 [facility] Work Phone: Chloride [Moles/Vol] 102 mmol/L 98-107 [facility] Work Phone: Eosinophils/100 WBC (Bld) 0.5 % 0-5 [facility] Work Phone: Glucose [Mass/Vol] 244 mg/dL 74-106 [facility] Work Phone: Comment on above: Glucose result great er than or equal to 200 mg/dLsuggests DIABETES MELLITUS per A.D.A. criteria. Neutrophils (Bld) [#/Vol] 6.2 10*3/uL 2.0-7.7 [facility] Work Phone: Neutrophils/100 WBC (Bld) 66.0 % 47-70 [facility] Work Phone: [phone] Potassium [Moles/Vol] 4.3 mmol/L 3.5-5.1 [facility] Work Phone: Comment on above: Moderate Hemolysis, Result may be falsely increased. Sodium [Moles/Vol] 135 mmol/L 136-145 [facility] Work Phone: WBC (Bld) [#/Vol] 9.4 10*3/uL 4.4-11.0 [facility] Work Phone: Blood erythrocytes count (nu mber/volume)on 07-15-2021 RBC (Bld) [#/Vol] 4.67 10*6/uL 4.2-5.4 [facility] Work [facility]: Blood hemoglobin measurement (mass/volume)on 07-15-2021 Hemoglobin (Bld) [Mass/Vol] 13.6 g/dL 12.0-15. 0 [facility] Work Phone: Blood lymphocytes/100 leukoc yteson 07-15-2021 Lymphocytes/100 WBC (Bld) 24.8 % 19-41 [facility] Work Phone: Blood manual differential co mment interpretation (narrative result)on 07-15-2021 Manual differential comment [place] (Bld) [Interp] SCANNED [facility] Work Phone: Blood monocytes/100 leukocyt eson 07-15-2021 Monocytes/100 WBC (Bld) 8.0 % 0-10 [facility] Work Phone: Blood platelet mean volumeon 07-15-2021 Platelet mean volume (Bld) [Entitic vol] 12.1 fL 6.2-12.0 [facility] Work Phone: Determination of erythrocyte mean corpuscular volume (MCV)on 07-15-2021 MCV (RBC) [Entitic vol] 87.6 fL 81-99 [facility] Work Phone: Hematocrit Auto (Bld) [Volum e fraction]on 07-15-2021 Hematocrit (Bld) [Volume fraction] 40.9 % 37-47 [facility] Work Phone: Laboratory - Chemistry and C hemistry - challengeon 07-15-2021 CO2 [Moles/Vol] 28.0 mmol/L 21.0-32.0 [facility] Work Phone: Urea nitrogen/Creatinine [Mass ratio] 18.9 mg/mg 10-20 [facility] Work Phone: Laboratory - Hematology and Cell countson 07-15-2021 Erythrocyte distribution width (RBC) [Entitic vol] 39.8 fL 35.1-43.9 [facility] Work Phone: Erythrocyte distribution width (RBC) [Ratio] 12.5 % 11.6-14.6 [facility] Work Phone: Immature granulocytes/100 WBC (Bld) 0.300 % 0.0-0.9 [facility] Work Phone: Comment on above: IG% - Immature Granu locytes (promyelocytes, myelocytes and metamyelocytes) > 1% indicates that a LEFT SHIFT is Present. MCH (RBC) [Entitic mass] 29.1 pg 27.0-32.0 [facility] Work Phone: Nucleated RBC/100 WBC (Bld) [Ratio] 0 % 0-5 [facility] Work Phone: MCHC Auto (RBC) [Mass/Vol]on 07-15-2021 MCHC (RBC) [Mass/Vol] 33.3 g/dL 32-36 [facility] Work Phone: No Panel Informationon 07-15 Estimated Creatinine Clearance Calc 54.24 ml/min [facility] Work Phone: Estimated GFR (MDRD) Amer 62 mL/min >60 [facility] Work Phone: Comment on above: GFR Calc Estimated GFR (MDRD) Non-Af Amer 51 mL/min >60 [facility] Work Phone: Comment on above: Non- GFR Calc Platelets bldon 07-15-2021 Platelets (Bld) [#/Vol] 292 10*3/uL 150-450 [facility] Work Phone: Serum or plasma calcium yuniel urement (mass/volume)on 07-15-2021 Calcium [Mass/Vol] 9.4 mg/dL 8.5-10.1 [facility] Work Phone: Serum or plasma creatinine m easurement (mass/volume)on 07-15-2021 Creatinine [Mass/Vol] 1.11 mg/dL 0.55-1.02 [facility] Work Phone: Comment on above: The validity of the calculated GFR & GFRAA in patients over 70 years has not been determined. Clinical correlation is essential. Serum or plasma urea nitroge n measurement (mass/volume)on 07-15-2021 Urea nitrogen [Mass/Vol] 21 mg/dL 7-18 [facility] Work Phone: Thin prep Papanicolaou smear with manual screeningon 07-15-2021 Thin prep Papanicolaou smear with manual screening 5 5-15 [facility] Work Phone: .Auto Diffon 11-17-2020 Basophil, Absolute 0.10 10 3/mcL Normal 0.00-0.19 [facility] ([place]) Comment on above: Performed By: #### C BC, ADIFF, ANEU, TROPHS, BMP #### [place] [address] #### GFR #### [address] [address] Basophils/100 WBC (Bld) 1.1 % Normal 0.0-2.5 A [facility] ([place]) Comment on above: Performed By: #### C BC, ADIFF, ANEU, TROPHS, BMP #### [place] [address] #### GFR #### [address] [address] Eosinophil, Absolute 0.10 10 3/mcL Normal 0.00-0.40 A [facility] ([place]) Comment on above: Performed By: #### C BC, ADIFF, ANEU, TROPHS, BMP #### [place] [address] #### GFR #### [address] [address] Eosinophils/100 WBC (Bld) 1.6 % Normal 0.0-7.0 [facility] ([place]) Comment on above: Performed By: #### C BC, ADIFF, ANEU, TROPHS, BMP #### [place] [address] #### GFR #### [address] [address] Lymphocyte, Absolute 2.00 10 3/mcL Normal 0.77-3.85 A [facility] ([place]) Comment on above: Performed By: #### C BC, ADIFF, ANEU, TROPHS, BMP #### [address] [address] #### GFR #### [address] [address] Lymphocytes/100 WBC (Bld) 29.7 % Normal 10.0-50.0 [facility] ([place]) Comment on above: Performed By: #### C BC, ADIFF, ANEU, TROPHS, BMP #### [place] [address] #### GFR #### [address] [address] Monocyte, Absolute 0.60 10 3/mcL Normal 0.15-1.00 [facility] ([place]) Comment on above: Performed By: #### C BC, ADIFF, ANEU, TROPHS, BMP #### [place] [address] #### GFR #### [address] [address] Monocytes/100 WBC (Bld) 8.6 % Normal 1.7-13.0 A [facility] ([place]) Comment on above: Performed By: #### C BC, ADIFF, ANEU, TROPHS, BMP #### [address] [address] #### GFR #### [address] [address] Neutrophils/100 WBC (Bld) 59.0 % Normal 37.0-80.0 [facility] ([place]) Comment on above: Performed By: #### C BC, ADIFF, ANEU, TROPHS, BMP #### [place] [address] #### GFR #### [address] [address] .GFRon 11-17-2020 GFR Non- 64 ml/min/1.73sqm Normal [facility] ([place]) Comment on above: Result Comment: GFR Population [...] C BC, ADIFF, ANEU, TROPHS, BMP #### [address] [address] #### GFR #### [address] [address] GFR 78 ml/min/1.73sqm Normal [facility] ([place]) Comment on above: Result Comment: GFR Population [...] C BC, ADIFF, ANEU, TROPHS, BMP #### [address] [address] #### GFR #### [address] [address] .NEUABSon 11-17-2020 Neutrophil, Absolute 3.90 10 3/mcL Normal 2.85-6.16 A [facility] ([place]) Comment on above: Performed By: #### C BC, ADIFF, ANEU, TROPHS, BMP #### [address] [address] #### GFR #### [address] [address] BMPon 11-17-2020 BUN/Creatinine Ratio 22 ratio Normal 7-27 [facility] ([place]) Comment on above: Performed By: #### C BC, ADIFF, ANEU, TROPHS, BMP #### [place] [address] #### GFR #### [address] [address] Calcium [Mass/Vol] 8.7 mg/dL Normal 8.4-10.2 [facility] ([place]) Comment on above: Performed By: #### C BC, ADIFF, ANEU, TROPHS, BMP #### [place] [address] #### GFR #### [place] [address] Chloride [Moles/Vol] 105 mmol/L Normal 98-107 [facility] ([place]) Comment on above: Performed By: #### C BC, ADIFF, ANEU, TROPHS, BMP #### [place] [address] #### GFR #### [place] [address] CO2 [Moles/Vol] 28 mmol/L Normal 23-31 [facility] ([place]) Comment on above: Performed By: #### C BC, ADIFF, ANEU, TROPHS, BMP #### [place] [address] #### GFR #### [place] [address] Creatinine [Mass/Vol] 0.87 mg/dL Normal 0.55-1.02 [facility] ([place]) Comment on above: Performed By: #### C BC, ADIFF, ANEU, TROPHS, BMP #### [place] [address] #### GFR #### [address] [address] Electrolyte Balance 8.0 mEq/L Normal [facility] ([place]) Comment on above: Performed By: #### C BC, ADIFF, ANEU, TROPHS, BMP #### [address] [address] #### GFR #### [address] [address] Glucose [Mass/Vol] 183 mg/dL High 83-110 [facility] ([place]) Comment on above: Performed By: #### C BC, ADIFF, ANEU, TROPHS, BMP #### [address] [address] #### GFR #### [address] [address] Potassium [Moles/Vol] 3.9 mmol/L Normal 3.5-5.1 [facility] ([place]) Comment on above: Performed By: #### C BC, ADIFF, ANEU, TROPHS, BMP #### [address] [address] #### GFR #### [address] [address] Sodium [Moles/Vol] 141 mmol/L Normal 136-145 [facility] ([place]) Comment on above: Performed By: #### C BC, ADIFF, ANEU, TROPHS, BMP #### [address] [address] #### GFR #### [address] [address] Urea nitrogen [Mass/Vol] 19 mg/dL High 7-18 [facility] ([place]) Comment on above: Performed By: #### C BC, ADIFF, ANEU, TROPHS, BMP #### [address] [address] #### GFR #### [address] [address] CBCon 11-17-2020 Erythrocyte distribution width (RBC) [Ratio] 13.3 % Normal 11.5-14.5 [facility] ([place]) Comment on above: Performed By: #### C BC, ADIFF, ANEU, TROPHS, BMP #### [place] [address] #### GFR #### [place] [address] Hematocrit (Bld) [Volume fraction] 36.0 % Low 37.0-47.0 [facility] ([place]) Comment on above: Performed By: #### C BC, ADIFF, ANEU, TROPHS, BMP #### [place] [address] #### GFR #### [place] [address] Hgb 12.3 G/dL Normal 12.0-16.0 [facility] ([place]) Comment on above: Performed By: #### C BC, ADIFF, ANEU, TROPHS, BMP #### [place] [address] #### GFR #### [place] [address] MCH (RBC) [Entitic mass] 30.2 pg Normal 27.0-31.2 [facility] ([place]) Comment on above: Performed By: #### C BC, ADIFF, ANEU, TROPHS, BMP #### [place] [address] #### GFR #### [place] [address] MCHC 34.1 G/dL Normal 33.0-37.0 [facility] ([place]) Comment on above: Performed By: #### C BC, ADIFF, ANEU, TROPHS, BMP #### [place] [address] #### GFR #### [place] [address] MCV (RBC) [Entitic vol] 88.6 fL Normal 80.0-94.0 A [facility] ([place]) Comment on above: Performed By: #### C BC, ADIFF, ANEU, TROPHS, BMP #### [place] [address] #### GFR #### [place] [address] Platelet 231 10 3/mcL Normal 130-400 [facility] ([place]) Comment on above: Performed By: #### C BC, ADIFF, ANEU, TROPHS, BMP #### [place] [address] #### GFR #### [place] [address] Platelet mean volume (Bld) [Entitic vol] 10.6 fL High 7.4-10.4 [facility] ([place]) Comment on above: Performed By: #### C BC, ADIFF, ANEU, TROPHS, BMP #### [place] [address] #### GFR #### [place] [address] RBC 4.07 10 6/mcL Low 4.20-5.40 [facility] ([place]) Comment on above: Performed By: #### C BC, ADIFF, ANEU, TROPHS, BMP #### [place] [address] #### GFR #### [place] [address] WBC 6.60 10 3/mcL Normal 4.60-10.80 [facility] ([place]) Comment on above: Performed By: #### C BC, ADIFF, ANEU, TROPHS, BMP #### [place] [address] #### GFR #### [place] [address] CT HEAD OR BRAIN W/O CONTRAS Vij[place] 11-17-2020 CT HEAD OR BRAIN W/O CONTRAST [...] resident's findings and interpretation. Interpreted By: Dave Lna Preliminary Report By: Castro Matamoros DO Electronically Signed By: Dave Lan Dictated Date: 11/17/2020 7:10:42 PM Prelim Date: 11/17/2020 7:22:37 PM Sign Date: 11/17/2020 7:29:37 PM Ordering Provider:Viridiana Boateng [facility] ([facility] 11-17-2020 Troponin I High Sensitivity 7.6 ng/L Normal 0.0-51.4 [facility] ([place]) Comment on above: Performed By: #### C BC, ADIFF, ANEU, TROPHS, BMP #### [facility] [address] [place], [place] [address] #### GFR #### [facility] [address] [place] [id number] XR CHEST 2 VIEWSon 1 XR CHEST [...] Sign Date: 11/17/2020 7:17:27 PM Ordering Provider:Viridiana Cheney [facility] ([place]) [place] 04-02-2020 LUIS[place] Telephone (UROLAG) LAYLA HIGUERA ([id number]) 1950 F Date Time Provider Department 04/02/20 OTHER (HIST) UROLAG During your visit today, we recorded the following information about you: Anabel MEJÍA 04/02/2020 11:40 AM Signed Left message for pt to call back and schedule with dr. Tolentino or shiraz cornejo at [facility] for urogyn for uterine prolapse and recurrent [...] [Z95.1] 06/10/2018 08/02/2018 Coronary artery disease involving [place]*08/02/2018 Chest pain [R07.9] 08/11/2018 Hypoglycemia [E16.2] 08/15/2018 08/20/2018 Obesity, Class I, BMI 30-34.9 [E66.9] 09/11/2018 Age-related incipient cataract of right eye [H2*11/12/2019 More... Encounter Status:Closed by ANABEL HAMMER on 04/02/20 [facility] 02-26-2020 [facility] Telephone (UROLAG) LAYLA HIGUERA ([id number]) 1950 F Date Time Provider Department 02/26/20 SON TOLENTINO During your visit today, we recorded the following information about you: Anabel MEJÍA 02/26/2020 3:15 PM Signed Called and left patient a message to call back to schedule with dr. Tolentino for recurrent uti and history of prolapse [...] [Z95.1] 06/10/2018 08/02/2018 Coronary artery disease involving [place]*08/02/2018 Chest pain [R07.9] 08/11/2018 Hypoglycemia [E16.2] 08/15/2018 08/20/2018 Obesity, Class I, BMI 30-34.9 [E66.9] 09/11/2018 Age-related incipient cataract of right eye [H2*11/12/2019 More... Encounter Status:Closed by ANABEL HAMMER on 02/26/20 Normal [facility] CR Spine Lumbosacral 4+ View son 05-02-2019 CR Spine Lumbosacral 4+ Views Patient Name: LAYLA HIGUERA Diagnostic Radiology Exam Date/Time 05/01/2019 17:00:00 EST Exam CR Spine Lumbosacral 4+ Views Ordering Physician SUSAN TEAGUE D.O. Accession Number [id number] CPT4 Codes 64333 () Reason For Exam chronic low back [...] Report Dictated on Final Dictating Physician: MD HOLT JENNIFER R Signed Date and Time: 05/02/2019 9:38 pm Signed by: MD HOLT JENNIFER R Transcribed Date and Time: 05/02/2019 9:39 Normal [facility] CBC Auto Differentialon 11-2 Absolute Baso # 0.1 10*3/uL 0 - 0.2 10*3/uL [place] Absolute Neut # 4.1 10*3/uL 1.8 - 7 10*3/uL [place] Basophils/100 WBC (Bld) 1.1 % 0 - 2 % [place] Eosinophils (Bld) [#/Vol] 0.1 10*3/uL 0 - 0.5 10*3/uL [place] Eosinophils/100 WBC (Bld) 1.8 % 1 - 6 % [place] Erythrocyte distribution width (RBC) [Ratio] 13.1 % 11.5 - 14.5 % [place] Granulocytes/100 WBC (Bld) 54.6 % 40 - 80 % [place] Hematocrit (Bld) [Volume fraction] 38.8 % 35 - 47 % [place] Hemoglobin (Bld) [Mass/Vol] 13.1 g/dL 11.7 - 16 g/dL [place] Lymphocytes (Bld) [#/Vol] 2.6 10*3/uL 1 - 4.3 10*3/uL [place] Lymphocytes/100 WBC (Bld) 34.3 % 20 - 40 % [place] MCH (RBC) [Entitic mass] 30.1 pg 26 - 34 pg [place] MCHC (RBC) [Mass/Vol] 33.7 % 32 - 36 % [place] MCV (RBC) [Entitic vol] 89.5 fL 79 - 98 fL [place] Monocytes (Bld) [#/Vol] 0.6 10*3/uL 0 - 0.8 10*3/uL [place] Monocytes/100 WBC (Bld) 8.2 % 2 - 10 % [place] Platelet mean volume (Bld) [Entitic vol] 9.4 fL 7.4 - 10.4 fL [place] Platelets (Bld) [#/Vol] 286 10*3/uL 140 - 440 10*3/uL [place] RBC (Bld) [#/Vol] 4.34 10*6/uL 3.8 - 5.2 10*6/uL [place] WBC (Bld) [#/Vol] 7.4 10*3/uL 3.6 - 10.7 10*3/uL [place] Test Performed by [facility], [address] [place], [place] [id number] [place] [address] Comp Metabolic Panelon 05-01 ALP [Catalytic activity/Vol] 76 U/L Normal 38-126 [facility] Comment on above: Performed By: #### L IPD2, ALT3, BMP3 #### [facility] [address] [place] [address] ALT [Catalytic activity/Vol] 33 U/L Normal 13-69 [facility] Comment on above: Performed By: #### L IPD2, ALT3, BMP3 #### [facility] [address] [place] [address] Anion gap [Moles/Vol] 9 Normal [facility] Comment on above: Performed By: #### L IPD2, ALT3, BMP3 #### [facility] [address] [place] [address] AST [Catalytic activity/Vol] 20 U/L Normal 15-46 [facility] Comment on above: Performed By: #### L IPD2, ALT3, BMP3 #### [facility] [address] [place] [address] Calcium [Mass/Vol] 10.3 mg/dL Normal 8.4-10.4 [facility] Comment on above: Performed By: #### L IPD2, ALT3, BMP3 #### [facility] [address] [place] [address] CO2 [Moles/Vol] 30 mmol/L Normal 22-30 [facility] Comment on above: Performed By: #### L IPD2, ALT3, BMP3 #### [facility] [address] [place] [address] Glucose [Mass/Vol] 138 mg/dL High 70-100 [facility] Comment on above: Performed By: #### L IPD2, ALT3, BMP3 #### [facility] [address] [place] [address] Protein [Mass/Vol] 7.3 g/dL Normal 6.3-8.2 [facility] Comment on above: Performed By: #### L IPD2, ALT3, BMP3 #### [facility] [address] [place] [address] Urea nitrogen [Mass/Vol] 27 mg/dL High 7-20 [facility] Comment on above: Performed By: #### L IPD2, ALT3, BMP3 #### [facility] [address] [place] [address] Bilirubin [Mass/Vol] 0.2 mg/dL Normal 0.2-1.3 [facility] Comment on above: Performed By: #### L IPD2, ALT3, BMP3 #### [facility] [address] [place] [address] Creatinine [Mass/Vol] 0.84 mg/dL Normal 0.52-1.25 [facility] Comment on above: Performed By: #### L IPD2, ALT3, BMP3 #### [facility] [address] [place] [address] GFR/1.73 sq M predicted among blacks MDRD (S/P/Bld) [Vol rate/Area] mL/min/{1.73_m2} Normal >60 [facility] Comment on above: Performed By: #### L IPD2, ALT3, BMP3 #### [facility] [address] [place] [address] GFR/1.73 sq M predicted among non-blacks MDRD (S/P/Bld) [Vol rate/Area] mL/min/{1.73_m2} Normal >60 [facility] Comment on above: Result Comment: Sour ce- MDRD equation with creatinine calibration to IDMS(NKDEP) eGFR not recommended for drug dose adjustment Performed By: #### L IPD2, ALT3, BMP3 #### [facility] [address] [place] [address] Albumin [Mass/Vol] 4.4 g/dL Normal 3.5-5.0 [facility] Comment on above: Performed By: #### L IPD2, ALT3, BMP3 #### [facility] [address] [place] [address] Chloride [Moles/Vol] 102 mmol/L Normal 98-107 [facility] Comment on above: Performed By: #### L IPD2, ALT3, BMP3 #### [facility] [address] [place] [address] Potassium [Moles/Vol] 4.7 mmol/L Normal 3.5-5.1 [facility] Comment on above: Performed By: #### L IPD2, ALT3, BMP3 #### [facility] [address] [place] [address] Sodium [Moles/Vol] 141 mmol/L Normal 135-145 [facility] Comment on above: Performed By: #### L IPD2, ALT3, BMP3 #### [facility] [address] [place] [address] Comprehensive Metabolic Pane susanna 05-01-2019 Albumin [Mass/Vol] 4.4 g/dL 3.5 - 5 g/dL [facility], [place] ALP [Catalytic activity/Vol] 76 U/L 38 - 126 U/L [facility], [place] ALT [Catalytic activity/Vol] 33 U/L 13 - 69 U/L [facility] Anion gap [Moles/Vol] 9 mmol/L [place] AST [Catalytic activity/Vol] 20 U/L 15 - 46 U/L [place] Bilirubin Ql (U) 0.2 mg/dL 0.2 - 1.3 mg/dL [place] Calcium [Mass/Vol] 10.3 mg/dL 8.4 - 10. 4 mg/dL [place] Chloride [Moles/Vol] 102 mmol/L 98 - 10 7 mmol/L [place] CO2 [Moles/Vol] 30 mmol/L 22 - 30 mmol/L [place] Creatinine [Mass/Vol] 0.84 mg/dL 0.52 - 1.25 mg/dL [place] EGFR IF NonAfrican [place] >60.0 >60 mL/m in [place] Comment on above: Source- MDRD equatio n with creatinine calibration to IDMS(NKDEP) eGFR not recommended for drug dose adjustment GFR/1.73 sq M predicted among blacks MDRD (S/P/Bld) [Vol rate/Area] mL/min/{1.73_m2} >60 mL/min [place] Glucose [Mass/Vol] 138 mg/dL High 70 - 100 mg/dL [place] Interpretation and review of laboratory results Abnormal [place] Potassium [Moles/Vol] 4.7 mmol/L 3.5 - 5.1 mmol/L [place] Protein [Mass/Vol] 7.3 g/dL 6.3 - 8.2 g/dL [place] Sodium [Moles/Vol] 141 mmol/L 135 - 145 mmol/L [place] Urea nitrogen [Mass/Vol] 27 mg/dL High 7 - 20 mg/d [place] Test Performed by [facility], [address] , [address] Hemogram w/ Autodiffon 05-01 Abs Baso Cnt 0.1 10*3/uL Normal 0.0-0.2 [facility] Comment on above: Performed By: #### L IPD2, ALT3, BMP3 #### [facility] [address] [place] [address] Abs Neutrophile Cnt 4.1 10*3/uL Normal 1.8-7.0 [facility] Comment on above: Performed By: #### L IPD2, ALT3, BMP3 #### [facility] [address] [place] [address] Basophils/100 WBC (Bld) 1.1 % Normal 0.0-2.0 [facility] Comment on above: Performed By: #### L IPD2, ALT3, BMP3 #### [facility] [address] [place] [address] Eosinophils (Bld) [#/Vol] 0.1 10*3/uL Normal 0.0-0.5 [facility] Comment on above: Performed By: #### L IPD2, ALT3, BMP3 #### [facility] [address] [place] [address] Eosinophils/100 WBC (Bld) 1.8 % Normal 1.0-6.0 [facility] Comment on above: Performed By: #### L IPD2, ALT3, BMP3 #### [facility] [address] [place] [address] Erythrocyte distribution width (RBC) [Ratio] 13.1 % Normal 11.5-14.5 [facility] Comment on above: Performed By: #### L IPD2, ALT3, BMP3 #### [facility] [address] [place] [address] Granulocytes/100 WBC (Bld) 54.6 % Normal 40.0-80.0 [facility] Comment on above: Performed By: #### L IPD2, ALT3, BMP3 #### [facility] [address] [place] [address] Hematocrit (Bld) [Volume fraction] 38.8 % Normal 35.0-47.0 [facility] Comment on above: Performed By: #### L IPD2, ALT3, BMP3 #### [facility] [address] [place] [address] Hemoglobin (Bld) [Mass/Vol] 13.1 g/dL Normal 11.7-16. 0 [facility] Comment on above: Performed By: #### L IPD2, ALT3, BMP3 #### [facility] [address] [place] [address] Lymphocytes (Bld) [#/Vol] 2.6 10*3/uL Normal 1.0-4.3 [facility] Comment on above: Performed By: #### L IPD2, ALT3, BMP3 #### [facility] [address] [place] [address] Lymphocytes/100 WBC (Bld) 34.3 % Normal 20.0-40.0 [facility] Comment on above: Performed By: #### L IPD2, ALT3, BMP3 #### [facility] [address] [place] [address] MCH (RBC) [Entitic mass] 30.1 pg Normal 26.0-34.0 [facility] Comment on above: Performed By: #### L IPD2, ALT3, BMP3 #### [facility] [address] [place] [address] MCHC (RBC) [Mass/Vol] 33.7 % Normal 32.0-36.0 [facility] Comment on above: Performed By: #### L IPD2, ALT3, BMP3 #### [facility] [address] [place] [address] MCV (RBC) [Entitic vol] 89.5 fL Normal 79.0-98.0 [facility] Comment on above: Performed By: #### L IPD2, ALT3, BMP3 #### [facility] [address] [place] [address] Monocytes (Bld) [#/Vol] 0.6 10*3/uL Normal 0.0-0.8 [facility] Comment on above: Performed By: #### L IPD2, ALT3, BMP3 #### [facility] [address] [place] [address] Monocytes/100 WBC (Bld) 8.2 % Normal 2.0-10.0 [facility] Comment on above: Performed By: #### L IPD2, ALT3, BMP3 #### [facility] [address] [place] [address] Platelet mean volume (Bld) [Entitic vol] 9.4 fL Normal 7.4-10.4 [facility] Comment on above: Performed By: #### L IPD2, ALT3, BMP3 #### [facility] [address] [place] [address] Platelets (Bld) [#/Vol] 286 10*3/uL Normal 140-440 [facility] Comment on above: Performed By: #### L IPD2, ALT3, BMP3 #### [facility] [address] [place] [address] RBC (Bld) [#/Vol] 4.34 10*6/uL Normal 3.80-5.20 [facility] Comment on above: Performed By: #### L IPD2, ALT3, BMP3 #### [facility] [address] [place] [address] WBC (Bld) [#/Vol] 7.4 10*3/uL Normal 3.6-10.7 [facility] Comment on above: Performed By: #### L IPD2, ALT3, BMP3 #### [facility] [address] [place] [address] TSH without Reflexon 019 TSH Qn 1.970 u[IU]/mL 0.465 - 4.68 u[IU]/mL [facility], [place] Test Performed by [facility], [address] , [place], [place] [address] [place] Thyroid Stim. Hormoneon 04-06 Thyroid Stim. Hormone 1.970 u[IU]/mL Normal 0.465-4.68 0 [facility] Comment on above: Performed By: #### L IPD2, ALT3, BMP3 #### [facility] [address] [place] [address] Vit D 25-OH, Totalon 019 Vit D 25-OH, Total 63 ng/mL Normal 30-100 [facility] Comment on above: Result Comment: Ther apy is based on measurement of Total 25-OHD with the following classification levels: Less than 20 ng/mL: Indicative of Vit D deficiency 20-30 ng/mL: Suggests Vit D insufficiency Optimal: Greater than or equal to 30 ng/mL Test performed by [employer], measuring Total Vitamin D, not individual fractions. Performed By: #### L IPD2, ALT3, BMP3 #### [facility] [address] [place] [address] Vitamin B12on 05-01-2019 Cobalamin (Vitamin B12) [Mass/Vol] pg/mL High 239-931 [facility] Comment on above: Performed By: #### L IPD2, ALT3, BMP3 #### [facility] [address] [place] [address] Cobalamin (Vitamin B12) [Mass/Vol] pg/mL High 239 - 931 pg/mL [place] Interpretation and review of laboratory results Abnormal [place] Test Performed by [facility], [address] , [place], [place] [address] [place] Vitamin D 25 Hydroxyon 05-01 Vit D, 25-Hydroxy 63 ng/mL 30 - 100 ng/mL [place] Comment on above: Therapy is based on measurement of Total 25-OHD with the following classification levels: Less than 20 ng/mL: Indicative of Vit D deficiency 20-30 ng/mL: Suggests Vit D insufficiency Optimal: Greater than or equal to 30 ng/mL Test performed by [employer], measuring Total Vitamin D, not individual fractions. Test Performed by [facility], [address], [place], [place] [address] [place] Basic Metabolic Panelon 04-06 Anion gap [Moles/Vol] 10 Normal [facility] Comment on above: Performed By: #### B MP3, HEMDF, TROPN #### [facility] [address] [place] [address] Calcium [Mass/Vol] 9.5 mg/dL Normal 8.4-10.4 [facility] Comment on above: Performed By: #### B MP3, HEMDF, TROPN #### [facility] [address] [place] [address] CO2 [Moles/Vol] 24 mmol/L Normal 22-30 [facility] Comment on above: Performed By: #### B MP3, HEMDF, TROPN #### [facility] [address] [place] [address] Glucose [Mass/Vol] 108 mg/dL High 70-100 [facility] Comment on above: Performed By: #### B MP3, HEMDF, TROPN #### [facility] [address] [place] [address] Urea nitrogen [Mass/Vol] 19 mg/dL Normal 7-20 [facility] Comment on above: Performed By: #### B MP3, HEMDF, TROPN #### [facility] [address] [place] [address] Creatinine [Mass/Vol] 0.73 mg/dL Normal 0.52-1.25 [facility] Comment on above: Performed By: #### B MP3, HEMDF, TROPN #### [facility] [address] [place] [address] GFR/1.73 sq M predicted among blacks MDRD (S/P/Bld) [Vol rate/Area] mL/min/{1.73_m2} Normal >60 [facility] Comment on above: Performed By: #### B MP3, HEMDF, TROPN #### [facility] [address] [place] [address] GFR/1.73 sq M predicted among non-blacks MDRD (S/P/Bld) [Vol rate/Area] mL/min/{1.73_m2} Normal >60 [facility] Comment on above: Result Comment: Sour ce- MDRD equation with creatinine calibration to IDMS(NKDEP) eGFR not recommended for drug dose adjustment Performed By: #### B MP3, HEMDF, TROPN #### [facility] [address] [place] [address] Potassium [Moles/Vol] 4.1 mmol/L Normal 3.5-5.1 [facility] Comment on above: Performed By: #### B MP3, HEMDF, TROPN #### [facility] [address] [place] [address] Sodium [Moles/Vol] 139 mmol/L Normal 135-145 [facility] Comment on above: Performed By: #### B MP3, HEMDF, TROPN #### [facility] [address] [place] [address] Chloride [Moles/Vol] 105 mmol/L Normal 98-107 [facility] Comment on above: Performed By: #### B MP3, HEMDF, TROPN #### [facility] [address] [place] [address] Anion gap [Moles/Vol] 10 mmol/L [place] Calcium [Mass/Vol] 9.5 mg/dL 8.4 - 10. 4 mg/dL [place] Chloride [Moles/Vol] 105 mmol/L 98 - 10 7 mmol/L [place] CO2 [Moles/Vol] 24 mmol/L 22 - 30 mmol/L [place] Creatinine [Mass/Vol] 0.73 mg/dL 0.52 - 1.25 mg/dL [place] EGFR IF NonAfrican [place] >60.0 >60 mL/m in [place] Comment on above: Source- MDRD equatio n with creatinine calibration to IDMS(NKDEP) eGFR not recommended for drug dose adjustment GFR/1.73 sq M predicted among blacks MDRD (S/P/Bld) [Vol rate/Area] mL/min/{1.73_m2} >60 mL/min [place] Glucose [Mass/Vol] 108 mg/dL High 70 - 100 mg/dL [place] Interpretation and review of laboratory results Abnormal [place] Potassium [Moles/Vol] 4.1 mmol/L 3.5 - 5.1 mmol/L [place] Sodium [Moles/Vol] 139 mmol/L 135 - 145 mmol/L [place] Urea nitrogen [Mass/Vol] 19 mg/dL 7 - 20 mg/d [place] Test Performed by [facility], [address] , [address] CR Chest PA/LATon 04-26-2019 CR Chest PA/LAT Patient Name: LAYLA HIGUERA Diagnostic Radiology Exam Date/Time 04/26/2019 11:39:44 EST Exam CR Chest PA/LAT Ordering Physician DC GUZMAN Accession Number [id number] CPT4 Codes 00432 () Reason For Exam cough dyspnea COPD [...] Transcribed Date and Time: 04/26/2019 11:57 Normal [facility] Hemogram (CBC) w/Auto Diffon 04-26-2019 Absolute Baso # 0.0 10*3/uL 0 - 0.2 10*3/uL [place] Absolute Neut # 4.2 10*3/uL 1.8 - 7 10*3/uL [place] Basophils/100 WBC (Bld) 0.7 % 0 - 2 % [place] Eosinophils (Bld) [#/Vol] 0.1 10*3/uL 0 - 0.5 10*3/uL [place] Eosinophils/100 WBC (Bld) 1.6 % 1 - 6 % [place] Erythrocyte distribution width (RBC) [Ratio] 13.3 % 11.5 - 14.5 % [place] Granulocytes/100 WBC (Bld) 73.9 % 40 - 80 % [place] Hematocrit (Bld) [Volume fraction] 38.4 % 35 - 47 % [place] Hemoglobin (Bld) [Mass/Vol] 13.0 g/dL 11.7 - 16 g/dL [place] Interpretation and review of laboratory results Abnormal [place] Lymphocytes (Bld) [#/Vol] 1.1 10*3/uL 1 - 4.3 10*3/uL [place] Lymphocytes/100 WBC (Bld) 19.2 % Low 20 - 40 % [place] MCH (RBC) [Entitic mass] 30.1 pg 26 - 34 pg [place] MCHC (RBC) [Mass/Vol] 33.9 % 32 - 36 % [place] MCV (RBC) [Entitic vol] 88.8 fL 79 - 98 fL [place] Monocytes (Bld) [#/Vol] 0.3 10*3/uL 0 - 0.8 10*3/uL [place] Monocytes/100 WBC (Bld) 4.6 % 2 - 10 % [place] Platelet mean volume (Bld) [Entitic vol] 9.8 fL 7.4 - 10.4 fL [place] Platelets (Bld) [#/Vol] 276 10*3/uL 140 - 440 10*3/uL [place] RBC (Bld) [#/Vol] 4.33 10*6/uL 3.8 - 5.2 10*6/uL [place] WBC (Bld) [#/Vol] 5.7 10*3/uL 3.6 - 10.7 10*3/uL [place] Test Performed by [facility], [address] , [place], [place] [address] [place] Hemogram w/ Autodiffon 04-26 Abs Baso Cnt 0.0 10*3/uL Normal 0.0-0.2 [facility] Comment on above: Performed By: #### B MP3, HEMDF, TROPN #### [facility] [address] [place] [address] Abs Neutrophile Cnt 4.2 10*3/uL Normal 1.8-7.0 [facility] Comment on above: Performed By: #### B MP3, HEMDF, TROPN #### [facility] [address] [place] [address] Basophils/100 WBC (Bld) 0.7 % Normal 0.0-2.0 [facility] Comment on above: Performed By: #### B MP3, HEMDF, TROPN #### [facility] [address] [place] [address] Eosinophils (Bld) [#/Vol] 0.1 10*3/uL Normal 0.0-0.5 [facility] Comment on above: Performed By: #### B MP3, HEMDF, TROPN #### [facility] [address] [place] [address] Eosinophils/100 WBC (Bld) 1.6 % Normal 1.0-6.0 [facility] Comment on above: Performed By: #### B MP3, HEMDF, TROPN #### [facility] [address] [place] [address] Erythrocyte distribution width (RBC) [Ratio] 13.3 % Normal 11.5-14.5 [facility] Comment on above: Performed By: #### B MP3, HEMDF, TROPN #### [facility] [address] [place] [address] Granulocytes/100 WBC (Bld) 73.9 % Normal 40.0-80.0 [facility] Comment on above: Performed By: #### B MP3, HEMDF, TROPN #### [facility] [address] [place] [address] Hematocrit (Bld) [Volume fraction] 38.4 % Normal 35.0-47.0 [facility] Comment on above: Performed By: #### B MP3, HEMDF, TROPN #### [facility] [address] [place] [address] Hemoglobin (Bld) [Mass/Vol] 13.0 g/dL Normal 11.7-16. 0 [facility] Comment on above: Performed By: #### B MP3, HEMDF, TROPN #### [facility] [address] [place] [address] Lymphocytes (Bld) [#/Vol] 1.1 10*3/uL Normal 1.0-4.3 [facility] Comment on above: Performed By: #### B MP3, HEMDF, TROPN #### [facility] [address] [place] [address] Lymphocytes/100 WBC (Bld) 19.2 % Low 20.0-40.0 [facility] Comment on above: Performed By: #### B MP3, HEMDF, TROPN #### [facility] [address] [place] [address] MCH (RBC) [Entitic mass] 30.1 pg Normal 26.0-34.0 [facility] Comment on above: Performed By: #### B MP3, HEMDF, TROPN #### [facility] [address] [place] [address] MCHC (RBC) [Mass/Vol] 33.9 % Normal 32.0-36.0 [facility] Comment on above: Performed By: #### B MP3, HEMDF, TROPN #### [facility] [address] [place] [address] MCV (RBC) [Entitic vol] 88.8 fL Normal 79.0-98.0 [facility] Comment on above: Performed By: #### B MP3, HEMDF, TROPN #### [facility] [address] [place] [address] Monocytes (Bld) [#/Vol] 0.3 10*3/uL Normal 0.0-0.8 [facility] Comment on above: Performed By: #### B MP3, HEMDF, TROPN #### [facility] [address] [place] [address] Monocytes/100 WBC (Bld) 4.6 % Normal 2.0-10.0 [facility] Comment on above: Performed By: #### B MP3, HEMDF, TROPN #### [facility] [address] [place] [address] Platelet mean volume (Bld) [Entitic vol] 9.8 fL Normal 7.4-10.4 [facility] Comment on above: Performed By: #### B MP3, HEMDF, TROPN #### [facility] [address] [place] [address] Platelets (Bld) [#/Vol] 276 10*3/uL Normal 140-440 [facility] Comment on above: Performed By: #### B MP3, HEMDF, TROPN #### [facility] [address] [place] [address] RBC (Bld) [#/Vol] 4.33 10*6/uL Normal 3.80-5.20 [facility] Comment on above: Performed By: #### B MP3, HEMDF, TROPN #### [facility] [address] [place] [address] WBC (Bld) [#/Vol] 5.7 10*3/uL Normal 3.6-10.7 [facility] Comment on above: Performed By: #### B MP3, HEMDF, TROPN #### [facility] [address] [place] [address] Troponin Ion 04-26-2019 Troponin I.cardiac [Mass/Vol] ng/mL Normal 0.000-0.034 [facility] Comment on above: Result Comment: . Performed By: #### B MP3, HEMDF, TROPN #### [facility] [address] [place] [address] Troponin x1on 04-26-2019 Troponin I.cardiac [Mass/Vol] ng/mL 0 - 0.034 ng/mL [place] Comment on above: . Test Performed by [facility], [address] , [place], [place] [address] [place] [address] XR CHEST STANDARD (2 VW)on 06-26-2018 Patient Name: LAYLA HIGUERA ---Diagnostic Radiology--- Exam Date/Time 04/26/2019 11:39:44 EST Exam CR Chest PA/LAT Ordering Physician DC GUZMAN Accession Number [id number] CPT4 Codes 51258 () Reason For Exam cough dyspnea COPD [...] R Transcribed Date and Time: 04/26/2019 11:57 [facility], [place] Bhavesh, [facility] Incoming Radiology Results From [facility] - 04/26/2019 11:57 AM EST Patient Name: LAYLA HIGUERA ---Diagnostic Radiology--- Exam Date/Time 04/26/2019 11:39:44 EST Exam CR Chest PA/LAT Ordering Physician Meenu NOE DC Accession Number [id number] CPT4 Codes 50546 () Reason For Exam cough dyspnea COPD [...] Time: 04/26/2019 11:56 am Signed by: MD BRADLEY, HERVE Pereira Transcribed Date and Time: 04/26/2019 11:57 [place] MG Breast Tomosynthesis Diag nostic BIon 11-23-2018 MG Breast Tomosynthesis Diagnostic BI Patient Name: LAYLA HIGUERA Mammography Exam Date/Time 11/23/2018 14:29:23 EDT Exam MG Breast Tomosynthesis BI Ordering Physician SUSAN TEAGUE D.O. Accession Number [id number] CPT4 Codes 02453 (MG Breast Tomosynthesis BI), 13590 (MG MAMMO 2D DIAG BILAT) Reason For [...] bilateral MG breast tomosynthesis bl performed at [facility]. May 30, 2017, bilateral MG breast tomosynthesis bl scr performed at [facility] May 05, 2015, mammogram performed at [facility]. September 12, 2013, bilateral mammogram performed at [facility]. TISSUE DENSITY: There are scattered fibroglandular [...] images: BB's = Nipples; skin lesions Open agdaagux = Palpable Line = Scar US BREAST [...] 2:53 pm Signed by: MD JOSEPH YUN [facility] [place] US Breast Limited Lefton US Breast Limited Left Patient Name: LAYLA HIGUERA Ultrasound Exam Date/Time 11/23/2018 14:44:35 EDT Exam US Breast Limited Left Ordering Physician SUSAN TEAGUE D.O. Accession Number [id number] CPT4 Codes 07769 () Reason For Exam palp lump Report [...] bilateral MG breast tomosynthesis bl performed at [facility]. May 30, 2017, bilateral MG breast tomosynthesis bl scr performed at [facility]. May 05, 2015, mammogram performed at [facility]. September 12, 2013, bilateral mammogram performed at [facility]. TISSUE DENSITY: There are scattered fibroglandular [...] images: BB's = Nipples; skin lesions Open agdaagux = Palpable Line = Scar US BREAST [...] pm Signed by: MD JOSEPH YUN [facility] US Breast Limited Righton US Breast Limited Right Patient Name: LAYLA HIGUERA Ultrasound Exam Date/Time 11/23/2018 14:44:12 EDT Exam US Breast Limited Right Ordering Physician SUSAN TEAGUE D.O. Accession Number [id number] CPT4 Codes 05976 () Reason For Exam palp lump Report [...] bilateral MG breast tomosynthesis bl performed at [facility]. May 30, 2017, bilateral MG breast tomosynthesis bl scr performed at [facility]. May 05, 2015, mammogram performed at [facility]. September 12, 2013, bilateral mammogram performed at [facility]. TISSUE DENSITY: There are scattered fibroglandular [...] images: BB's = Nipples; skin lesions Open agdaagux = Palpable Line = Scar US BREAST [...] Signed by: MD JAKE, DELVIS BACH Normal [facility] ALT (SGPT)on 10-15-2018 ALT [Catalytic activity/Vol] 24 U/L Normal 13-69 [facility] Comment on above: Performed By: #### L IPD2, ALT3, BMP3 #### [facility] [address] [place] [address] Basic Metabolic Panelon 10-03 Anion gap [Moles/Vol] 11 Normal [facility] Comment on above: Performed By: #### L IPD2, ALT3, BMP3 #### [facility] [address] [place] [address] Calcium [Mass/Vol] 9.8 mg/dL Normal 8.4-10.4 [facility] Comment on above: Performed By: #### L IPD2, ALT3, BMP3 #### [facility] [address] [place] [address] CO2 [Moles/Vol] 26 mmol/L Normal 22-30 [facility] Comment on above: Performed By: #### L IPD2, ALT3, BMP3 #### [facility] [address] [place] [address] Glucose [Mass/Vol] 153 mg/dL High 70-100 [facility] Comment on above: Performed By: #### L IPD2, ALT3, BMP3 #### [facility] [address] [place] [address] Urea nitrogen [Mass/Vol] 21 mg/dL High 7-20 [facility] Comment on above: Performed By: #### L IPD2, ALT3, BMP3 #### [facility] [address] [place] [address] Creatinine [Mass/Vol] 0.68 mg/dL Normal 0.52-1.25 [facility] Comment on above: Performed By: #### L IPD2, ALT3, BMP3 #### [facility] [address] [place] [address] GFR/1.73 sq M predicted among blacks MDRD (S/P/Bld) [Vol rate/Area] mL/min/{1.73_m2} Normal >60 [facility] Comment on above: Performed By: #### L IPD2, ALT3, BMP3 #### [facility] [address] [place] [address] GFR/1.73 sq M predicted among non-blacks MDRD (S/P/Bld) [Vol rate/Area] mL/min/{1.73_m2} Normal >60 [facility] Comment on above: Result Comment: Sour ce- MDRD equation with creatinine calibration to IDMS(NKDEP) eGFR not recommended for drug dose adjustment Performed By: #### L IPD2, ALT3, BMP3 #### [facility] [address] [place] [address] Chloride [Moles/Vol] 105 mmol/L Normal 98-107 [facility] Comment on above: Performed By: #### L IPD2, ALT3, BMP3 #### [facility] [address] [place] [address] Potassium [Moles/Vol] 4.2 mmol/L Normal 3.5-5.1 [facility] Comment on above: Performed By: #### L IPD2, ALT3, BMP3 #### [facility] [address] [place] [address] Sodium [Moles/Vol] 141 mmol/L Normal 135-145 [facility] Comment on above: Performed By: #### L IPD2, ALT3, BMP3 #### [facility] [address] [place] [address] Lipid Panelon 10-15-2018 Cholesterol in HDL [Mass/Vol] 41 mg/dL Normal 40-60 [facility] Comment on above: Performed By: #### L IPD2, ALT3, BMP3 #### [facility] [address] [place] [address] Cholesterol.total/Cholester ol in HDL [Mass ratio] 5 Normal [facility] Comment on above: Result Comment: Ref Range: < 3 Low Risk for CHD 3-6 Mod Risk for CHD > 6 High Risk for CHD Performed By: #### L IPD2, ALT3, BMP3 #### [facility] [address] [place] [address] Protein [Mass/Vol] 150 mg/dL Abnormal <100 [facility] Comment on above: Performed By: #### L IPD2, ALT3, BMP3 #### [facility] [address] [place] [address] Triglyceride [Mass/Vol] 116 mg/dL Normal <150 [facility] Comment on above: Performed By: #### L IPD2, ALT3, BMP3 #### [facility] [address] [place] [address] Cholesterol [Mass/Vol] 214 mg/dL Abnormal < 200 [facility] Comment on above: Performed By: #### L IPD2, ALT3, BMP3 #### [facility] [address] [place] [address] Glucose Meteron 08-20-2018 Glucose [Mass/Vol] 167 mg/dL High 70-99 [facility] Comment on above: Result Comment: [facility] [place] Performed By: #### T ROP #### [place] [address] Comprehensive Panelon 2018 ALP [Catalytic activity/Vol] 86 U/L Normal 46-116 [facility] Comment on above: Performed By: #### C BCD1 #### [place] [address] Protein [Mass/Vol] 6.9 g/dL Normal 6.4-8.2 [facility] Comment on above: Performed By: #### C BCD1 #### [address] [address] Bilirubin [Mass/Vol] 0.2 mg/dL Normal 0.2-1.0 [facility] Comment on above: Performed By: #### C BCD1 #### [place] [address] ALT [Catalytic activity/Vol] 22 U/L Normal 12-78 [facility] Comment on above: Performed By: #### C BCD1 #### [place] [address] AST [Catalytic activity/Vol] 6 U/L Low 9-37 [facility] Comment on above: Performed By: #### C BCD1 #### [facility] [address] [place], [place] [address] Creatinine [Mass/Vol] 0.77 mg/dL Normal 0.51-0.95 [facility] Comment on above: Performed By: #### C BCD1 #### [facility] [address] [place], [place] [address] Albumin [Mass/Vol] 3.1 g/dL Low 3.4-5.0 [facility] Comment on above: Performed By: #### C BCD1 #### [facility] [address] [place], [place] [address] Anion gap [Moles/Vol] 10 mmol/L Normal 8-16 [facility] Comment on above: Performed By: #### C BCD1 #### [facility] [address] [place], [place] [address] CO2 [Moles/Vol] 24 mmol/L Normal 21-32 [facility] Comment on above: Performed By: #### C BCD1 #### [facility] [address] [place], [place] [address] Glucose [Mass/Vol] 185 mg/dL High 70-99 [facility] Comment on above: Performed By: #### C BCD1 #### [facility] [address] [place], [place] [address] Urea nitrogen [Mass/Vol] 15 mg/dL Normal 7-18 [facility] Comment on above: Performed By: #### C BCD1 #### [facility] [address] [place], [place] [address] Calcium [Mass/Vol] 9.0 mg/dL Normal 8.5-10.1 [facility] Comment on above: Performed By: #### C BCD1 #### [facility] [address] [place], [place] [address] Chloride [Moles/Vol] 109 mmol/L High 98-107 [facility] Comment on above: Performed By: #### C BCD1 #### [facility] [address] [place], [place] [address] Potassium [Moles/Vol] 4.2 mmol/L Normal 3.5-5.1 [facility] Comment on above: Performed By: #### C BCD1 #### [facility] [address] [place], [place] [address] Sodium [Moles/Vol] 139 mmol/L Normal 136-145 [facility] Comment on above: Performed By: #### C BCD1 #### [facility] [address] [place] [address] Hemogram/Diffon 08-17-2018 Abs Immature Grans 0.02 thou/cmm Normal 0.00-0.05 [facility] Comment on above: Performed By: #### C BCD1 #### [facility] [address] [place] [address] Abs. Baso 0.05 thou/cmm Normal 0.01-0.08 [facility] Comment on above: Performed By: #### C BCD1 #### [facility] [address] [place] [address] Abs. Jerome 0.42 thou/cmm Normal 0.27-0.70 [facility] Comment on above: Performed By: #### C BCD1 #### [facility] [address] [place] [address] Abs. Neut (ANC) 4.34 thou/cmm Normal 1.56-6.13 [facility] Comment on above: Performed By: #### C BCD1 #### [facility] [address] [place], [place] [address] Basophils/100 WBC (Bld) 0.7 % Normal [facility] Comment on above: Performed By: #### C BCD1 #### [facility] [address] [place], [place] [address] Eosinophils (Bld) [#/Vol] 0.19 thou/cmm Normal 0.00-0. 31 [facility] Comment on above: Performed By: #### C BCD1 #### [place] [address] Eosinophils/100 WBC (Bld) 2.6 % Normal [facility] Comment on above: Performed By: #### C BCD1 #### [facility] [address] [place] [address] Erythrocyte distribution width (RBC) [Ratio] 13.6 % Normal 11.7-14.4 [facility] Comment on above: Performed By: #### C BCD1 #### [facility] [address] [place] [address] Hematocrit (Bld) [Volume fraction] 39.8 % Normal 34.1-44.9 [facility] Comment on above: Performed By: #### C BCD1 #### [facility] [address] [place] [address] Hemoglobin (Bld) [Mass/Vol] 12.6 g/dL Normal 11.2-15. 7 [facility] Comment on above: Performed By: #### C BCD1 #### [place] [address] Immature Grans 0.30 % Normal [facility] Comment on above: Performed By: #### C BCD1 #### [facility] [address] [place] [address] Lymphocytes (Bld) [#/Vol] 2.15 thou/cmm Normal 1.18-3. 74 [facility] Comment on above: Performed By: #### C BCD1 #### [place] [address] Lymphocytes/100 WBC (Bld) 30.0 % Normal [facility] Comment on above: Performed By: #### C BCD1 #### [facility] [address] [place] [address] MCH (RBC) [Entitic mass] 28.4 pg Normal 25.6-32.2 [facility] Comment on above: Performed By: #### C BCD1 #### [facility] [address] [place] [address] MCHC (RBC) [Mass/Vol] 31.7 % Normal 31.6-34.8 [facility] Comment on above: Performed By: #### C BCD1 #### [place] [address] MCV (RBC) [Entitic vol] 89.6 fL Normal 79.4-94.8 [facility] Comment on above: Performed By: #### C BCD1 #### [facility] [address] [place] [address] Monocytes/100 WBC (Bld) 5.9 % Normal [facility] Comment on above: Performed By: #### C BCD1 #### [facility] [address] [place] [address] Platelet mean volume (Bld) [Entitic vol] 12.5 fL High 9.4-12.3 [facility] Comment on above: Performed By: #### C BCD1 #### [facility] [address] [place] [address] Platelets (Bld) [#/Vol] 244 thou/cmm Normal 182-369 [facility] Comment on above: Performed By: #### C BCD1 #### [facility] [address] [place] [address] RBC (Bld) [#/Vol] 4.44 mil/cmm Normal 3.93-5.22 [facility] Comment on above: Performed By: #### C BCD1 #### [facility] [address] [place] [address] RDW SD 44.8 fl Normal 36.4-46.3 [facility] Comment on above: Performed By: #### C BCD1 #### [facility] [address] [place] [address] Seg Neutrophil 60.5 % Normal [facility] Comment on above: Performed By: #### C BCD1 #### [facility] [address] [place] [address] WBC (Bld) [#/Vol] 7.17 thou/cmm Normal 3.98-10.04 [facility] Comment on above: Performed By: #### C BCD1 #### [facility] [address] [place] [address] Lipase Bloodon 08-17-2018 Lipase Blood 127 U/L Normal 73-393 [facility] Comment on above: Performed By: #### C BCD1 #### [facility] [address] [place], [place] [address] MDRD GFRon 08-17-2018 GFR/1.73 sq M predicted among non-blacks MDRD (S/P/Bld) [Vol rate/Area] mL/min/{1.73_m2} Normal >60mL/min/1. 73m2 [facility] Comment on above: Result Comment: If t he patient is , multiply the result by 1.210. Performed By: #### T ROP #### [facility] [address] [place] [address] Basic Panelon 08-16-2018 Creatinine [Mass/Vol] 0.71 mg/dL Normal 0.51-0.95 [facility] Comment on above: Performed By: #### C BCD1 #### [address] [address] Glucose [Mass/Vol] 115 mg/dL High 70-99 [facility] Comment on above: Performed By: #### C BCD1 #### [facility] [address] [place] [address] Anion gap [Moles/Vol] 10 mmol/L Normal 8-16 [facility] Comment on above: Performed By: #### C BCD1 #### [place] [address] CO2 [Moles/Vol] 25 mmol/L Normal 21-32 [facility] Comment on above: Performed By: #### C BCD1 #### [facility] [address] [place], [place] [address] Urea nitrogen [Mass/Vol] 11 mg/dL Normal 7-18 [facility] Comment on above: Performed By: #### C BCD1 #### [facility] [address] [place], [place] [address] Calcium [Mass/Vol] 8.8 mg/dL Normal 8.5-10.1 [facility] Comment on above: Performed By: #### C BCD1 #### [place] [id number] Chloride [Moles/Vol] 111 mmol/L High 98-107 [facility] Comment on above: Performed By: #### C BCD1 #### [facility] [address] [place], [place] [address] Potassium [Moles/Vol] 3.6 mmol/L Normal 3.5-5.1 [facility] Comment on above: Performed By: #### C BCD1 #### [facility] [address] [place], [place] [address] Sodium [Moles/Vol] 142 mmol/L Normal 136-145 [facility] Comment on above: Performed By: #### C BCD1 #### [facility] [address] [place], [place] [address] Basic Panelon 08-15-2018 Creatinine [Mass/Vol] 0.58 mg/dL Normal 0.51-0.95 [facility] Comment on above: Performed By: #### C BCD1 #### [facility] [address] [place], [place] [address] Anion gap [Moles/Vol] 10 mmol/L Normal 8-16 [facility] Comment on above: Performed By: #### C BCD1 #### [facility] [address] [place], [place] [address] CO2 [Moles/Vol] 23 mmol/L Normal 21-32 [facility] Comment on above: Performed By: #### C BCD1 #### [facility] [address] [place], [place] [address] Urea nitrogen [Mass/Vol] 5 mg/dL Low 7-18 [facility] Comment on above: Performed By: #### C BCD1 #### [facility] [address] [place], [place] [address] Calcium [Mass/Vol] 7.4 mg/dL Low 8.5-10.1 [facility] Comment on above: Performed By: #### C BCD1 #### [facility] [address] [place], [place] [address] Glucose [Mass/Vol] 211 mg/dL High 70-99 [facility] Comment on above: Performed By: #### C BCD1 #### [facility] [address] [place], [place] [address] Chloride [Moles/Vol] 114 mmol/L High 98-107 [facility] Comment on above: Performed By: #### C BCD1 #### [facility] [address] [place] [address] Potassium [Moles/Vol] 3.1 mmol/L Low 3.5-5.1 [facility] Comment on above: Performed By: #### C BCD1 #### [facility] [address] [place] [address] Sodium [Moles/Vol] 144 mmol/L Normal 136-145 [facility] Comment on above: Performed By: #### C BCD1 #### [place] [address] Hemogramon 08-15-2018 Erythrocyte distribution width (RBC) [Ratio] 13.9 % Normal 11.7-14.4 [facility] Comment on above: Performed By: #### T ROP #### [place] [address] Hematocrit (Bld) [Volume fraction] 38.3 % Normal 34.1-44.9 [facility] Comment on above: Performed By: #### T ROP #### [place] [address] Hemoglobin (Bld) [Mass/Vol] 12.0 g/dL Normal 11.2-15. 7 [facility] Comment on above: Performed By: #### T ROP #### [place] [address] MCH (RBC) [Entitic mass] 28.0 pg Normal 25.6-32.2 [facility] Comment on above: Performed By: #### T ROP #### [place] [address] MCHC (RBC) [Mass/Vol] 31.3 % Low 31.6-34.8 [facility] Comment on above: Performed By: #### T ROP #### [place] [address] MCV (RBC) [Entitic vol] 89.5 fL Normal 79.4-94.8 [facility] Comment on above: Performed By: #### T ROP #### [facility] [address] [place] [address] Platelet mean volume (Bld) [Entitic vol] 12.4 fL High 9.4-12.3 [facility] Comment on above: Performed By: #### T ROP #### [facility] [address] [place], [place] [address] Platelets (Bld) [#/Vol] 241 thou/cmm Normal 182-369 [facility] Comment on above: Performed By: #### T ROP #### [facility] [address] [place] [address] RBC (Bld) [#/Vol] 4.28 mil/cmm Normal 3.93-5.22 [facility] Comment on above: Performed By: #### T ROP #### [facility] [address] [place] [address] RDW SD 45.1 fl Normal 36.4-46.3 [facility] Comment on above: Performed By: #### T ROP #### [facility] [address] [place] [address] WBC (Bld) [#/Vol] 6.41 thou/cmm Normal 3.98-10.04 [facility] Comment on above: Performed By: #### T ROP #### [place] [address] Hgb A1con 08-15-2018 HbA1c (Bld) [Mass fraction] 8.4 % High 4.2-6.3 [facility] Comment on above: Result Comment: Meth od is National Glycohemoglobin Standardization Program (NGSP) compliant. Performed By: #### C BCD1 #### [facility] [address] [place] [address] HbA1c (Bld) [Mass fraction] 194 mg/dl Normal [facility] Comment on above: Performed By: #### C BCD1 #### [place] [address] Magnesium Bloodon 08-15-2018 Magnesium [Mass/Vol] 1.6 mg/dL Normal 1.6-2.6 [facility] Comment on above: Performed By: #### C BCD1 #### [facility] [address] [place] [address] Comprehensive Panelon 2018 ALP [Catalytic activity/Vol] 78 U/L Normal 46-116 [facility] Comment on above: Performed By: #### T ROP #### [facility] [address] [place], [place] [address] Protein [Mass/Vol] 7.1 g/dL Normal 6.4-8.2 [facility] Comment on above: Performed By: #### T ROP #### [facility] [address] [place], [place] [address] Bilirubin [Mass/Vol] 0.3 mg/dL Normal 0.2-1.0 [facility] Comment on above: Performed By: #### T ROP #### [facility] [address] [place], [place] [address] ALT [Catalytic activity/Vol] 21 U/L Normal 12-78 [facility] Comment on above: Performed By: #### T ROP #### [facility] [address] [place], [place] [address] AST [Catalytic activity/Vol] 6 U/L Low 9-37 [facility] Comment on above: Performed By: #### T ROP #### [facility] [address] [place], [place] [address] Creatinine [Mass/Vol] 0.68 mg/dL Normal 0.51-0.95 [facility] Comment on above: Performed By: #### T ROP #### [facility] [address] [place], [place] [address] Glucose [Mass/Vol] 238 mg/dL High 70-99 [facility] Comment on above: Performed By: #### T ROP #### [facility] [address] [place], [place] [address] Albumin [Mass/Vol] 3.5 g/dL Normal 3.4-5.0 [facility] Comment on above: Performed By: #### T ROP #### [facility] [address] [place], [place] [address] Anion gap [Moles/Vol] 7 mmol/L Low 8-16 [facility] Comment on above: Performed By: #### T ROP #### [facility] [address] [place], [place] [address] Calcium [Mass/Vol] 9.4 mg/dL Normal 8.5-10.1 [facility] Comment on above: Performed By: #### T ROP #### [facility] [address] [place], [place] [address] CO2 [Moles/Vol] 29 mmol/L Normal 21-32 [facility] Comment on above: Performed By: #### T ROP #### [address] [address] Urea nitrogen [Mass/Vol] 12 mg/dL Normal 7-18 [facility] Comment on above: Performed By: #### T ROP #### [address] [address] Chloride [Moles/Vol] 106 mmol/L Normal 98-107 [facility] Comment on above: Performed By: #### T ROP #### [address] [address] Potassium [Moles/Vol] 3.6 mmol/L Normal 3.5-5.1 [facility] Comment on above: Performed By: #### T ROP #### [address] [address] Sodium [Moles/Vol] 138 mmol/L Normal 136-145 [facility] Comment on above: Performed By: #### T ROP #### [address] [address] Cult Urineon 08-14-2018 Cult Urine Test performed at [facility] ORGANISM: *Proteus mirabilis (ID: 1) >100,000 CFU/ml Normal [facility] Comment on above: Performed By: #### C BCD1 #### [address] [address] Hemogram/Diffon 08-14-2018 Abs Immature Grans 0.01 thou/cmm Normal 0.00-0.05 [facility] Comment on above: Performed By: #### T ROP #### [facility] [address] [place] [address] Abs. Baso 0.05 thou/cmm Normal 0.01-0.08 [facility] Comment on above: Performed By: #### T ROP #### [facility] [address] [place] [address] Abs. Jerome 0.54 thou/cmm Normal 0.27-0.70 [facility] Comment on above: Performed By: #### T ROP #### [facility] [address] [place] [address] Abs. Neut (ANC) 3.75 thou/cmm Normal 1.56-6.13 [facility] Comment on above: Performed By: #### T ROP #### [facility] [address] [place] [address] Basophils/100 WBC (Bld) 0.8 % Normal [facility] Comment on above: Performed By: #### T ROP #### [facility] [address] [place] [address] Eosinophils (Bld) [#/Vol] 0.14 thou/cmm Normal 0.00-0. 31 [facility] Comment on above: Performed By: #### T ROP #### [facility] [address] [place] [address] Eosinophils/100 WBC (Bld) 2.2 % Normal [facility] Comment on above: Performed By: #### T ROP #### [facility] [address] [place] [address] Erythrocyte distribution width (RBC) [Ratio] 13.7 % Normal 11.7-14.4 [facility] Comment on above: Performed By: #### T ROP #### [facility] [address] [place] [address] Hematocrit (Bld) [Volume fraction] 38.4 % Normal 34.1-44.9 [facility] Comment on above: Performed By: #### T ROP #### [facility] [address] [place] [address] Hemoglobin (Bld) [Mass/Vol] 12.0 g/dL Normal 11.2-15. 7 [facility] Comment on above: Performed By: #### T ROP #### [facility] [address] [place] [address] Immature Grans 0.20 % Normal [facility] Comment on above: Performed By: #### T ROP #### [facility] [address] [place] [address] Lymphocytes (Bld) [#/Vol] 1.87 thou/cmm Normal 1.18-3. 74 [facility] Comment on above: Performed By: #### T ROP #### [address] [address] Lymphocytes/100 WBC (Bld) 29.4 % Normal [facility] Comment on above: Performed By: #### T ROP #### [place] [address] MCH (RBC) [Entitic mass] 28.0 pg Normal 25.6-32.2 [facility] Comment on above: Performed By: #### T ROP #### [place] [address] MCHC (RBC) [Mass/Vol] 31.3 % Low 31.6-34.8 [facility] Comment on above: Performed By: #### T ROP #### [place] [address] MCV (RBC) [Entitic vol] 89.7 fL Normal 79.4-94.8 [facility] Comment on above: Performed By: #### T ROP #### [place] [address] Monocytes/100 WBC (Bld) 8.5 % Normal [facility] Comment on above: Performed By: #### T ROP #### [place] [address] Platelet mean volume (Bld) [Entitic vol] 12.4 fL High 9.4-12.3 [facility] Comment on above: Performed By: #### T ROP #### [address] [address] Platelets (Bld) [#/Vol] 230 thou/cmm Normal 182-369 [facility] Comment on above: Performed By: #### T ROP #### [facility] [address] [place] [address] RBC (Bld) [#/Vol] 4.28 mil/cmm Normal 3.93-5.22 [facility] Comment on above: Performed By: #### T ROP #### [facility] [address] [place] [address] RDW SD 44.7 fl Normal 36.4-46.3 [facility] Comment on above: Performed By: #### T ROP #### [place] [address] Seg Neutrophil 58.9 % Normal [facility] Comment on above: Performed By: #### T ROP #### [place] [address] WBC (Bld) [#/Vol] 6.36 thou/cmm Normal 3.98-10.04 [facility] Comment on above: Performed By: #### T ROP #### [place] [address] Magnesium Bloodon 08-14-2018 Magnesium [Mass/Vol] 2.1 mg/dL Normal 1.6-2.6 [facility] Comment on above: Performed By: #### T ROP #### [place] [address] Urinalysis Routineon 019 Bacteria LM.HPF (Urine sed) [#/Area] 4+ Abnormal None [facility] Comment on above: Performed By: #### T ROP #### [place] [address] Ep Cells Urine 2.3 /hpf Normal 0.0-5.0 [facility] Comment on above: Performed By: #### T ROP #### [place] [address] Hyaline Cast 0.3 /lpf Normal 0.0-1.0 [facility] Comment on above: Performed By: #### T ROP #### [facility] [address] [place] [address] RBC LM.HPF (Urine sed) [#/Area] 9.9 /[HPF] High 0.0-5.0 [facility] Comment on above: Performed By: #### T ROP #### [facility] [address] [place] [address] WBC LM.HPF (Urine sed) [#/Area] 21.0 /[HPF] Abnormal 0.0-5.0 [facility] Comment on above: Performed By: #### T ROP #### [place] [address] Appearance (U) CLOUDY Normal [facility] Comment on above: Performed By: #### T ROP #### [place] [address] Bilirubin (U) [Mass/Vol] Negative Normal Negative [facility] Comment on above: Performed By: #### T ROP #### [place] [address] Color (U) YELLOW Normal [facility] Comment on above: Performed By: #### T ROP #### [place] [address] Glucose Ql (U) >=1000 Abnormal Negative [facility] Comment on above: Performed By: #### T ROP #### [place] [address] Hemoglobin,Urine Negative Normal Negative [facility] Comment on above: Performed By: #### T ROP #### [place] [address] Ketone Urine Negative Normal Negative [facility] Comment on above: Performed By: #### T ROP #### [place] [address] Leukocytes Esterase TRACE Abnormal Negative [facility] Comment on above: Performed By: #### T ROP #### [place] [address] Nitrites Urine Positive Abnormal Negative [facility] Comment on above: Performed By: #### T ROP #### [facility] [address] [place] [address] pH (U) 7.5 [pH] Normal 5.0-8.0 [facility] Comment on above: Performed By: #### T ROP #### [facility] [address] [place] [address] Protein (U) [Mass/Vol] Negative Normal Negative [facility] Comment on above: Performed By: #### T ROP #### [facility] [address] [place] [address] Specific [place], Ur 1.027 Normal 1.005-1.030 [facility] Comment on above: Performed By: #### T ROP #### [place] [address] Urobilinogen,Ur 0.2 EU/dL Normal 0.0-1.0 [facility] Comment on above: Performed By: #### T ROP #### [place] [address] Urine Drug Screenon 08-15-19 19 Urine Amphetamine Non-detected Normal Non-Detected [facility] Comment on above: Performed By: #### T ROP #### [place] [address] Urine Barbiturates Non-detected Normal Non-Detected [facility] Comment on above: Performed By: #### T ROP #### [place] [address] Urine Benzodiazepine Non-detected Normal Non-Detected [facility] Comment on above: Performed By: #### T ROP #### [place] [address] Urine Cocaine Metab Non-detected Normal Non-Detected [facility] Comment on above: Performed By: #### T ROP #### [place] [address] Urine Opiate Non-detected Normal Non-Detected [facility] Comment on above: Performed By: #### T ROP #### [place] [address] Urine PCP Non-detected Normal Non-Detected [facility] Comment on above: Performed By: #### T ROP #### [facility] [address] [place] [address] Urine THC Non-detected Normal Non-Detected [facility] Comment on above: Result Comment: Urin [...] only. Performed By: #### T ROP #### [place] [address] Venous Blood Gason 9 FIO2 Value Not Given Normal [facility] Comment on above: Performed By: #### T ROP #### [place] [address] Base Excess 2.6 mmol/L Normal -3.0-3.0 [facility] Comment on above: Performed By: #### T ROP #### [place] [address] HCO3 (Bld) [Moles/Vol] 28.9 mmol/L Normal 21.0-30.0 [facility] Comment on above: Performed By: #### T ROP #### [place] [address] O2% Sat Venous 78.1 % High 18.0-74.8 [facility] Comment on above: Performed By: #### T ROP #### [place] [address] PCO2 Venous 54.8 mm Hg Normal 40.6-60.0 [facility] Comment on above: Performed By: #### T ROP #### [place] [address] pH Venous 7.342 Normal 7.320-7.430 [facility] Comment on above: Performed By: #### T ROP #### [facility] [address] [place], [place] [address] PO2 Venous 46.7 mm Hg High 15.9-37.5 [facility] Comment on above: Performed By: #### T ROP #### [facility] [address] [place], [place] [address] Glucose Meteron 06-14-2018 Glucose [Mass/Vol] 155 mg/dL High 70-99 [facility] Comment on above: Result Comment: [facility] Performed By: #### G LMET #### [address] [address] Basic Panelon 06-12-2018 Creatinine [Mass/Vol] 1.03 mg/dL High 0.51-0.95 [facility] Comment on above: Performed By: #### U RIN2 #### [address] [address] Anion gap [Moles/Vol] 12 mmol/L Normal 8-16 [facility] Comment on above: Performed By: #### U RIN2 #### [address] [address] CO2 [Moles/Vol] 24 mmol/L Normal 21-32 [facility] Comment on above: Performed By: #### U RIN2 #### [address] [address] Glucose [Mass/Vol] 136 mg/dL High 70-99 [facility] Comment on above: Performed By: #### U RIN2 #### [facility] [address] [place], [place] [address] Urea nitrogen [Mass/Vol] 24 mg/dL High 7-18 [facility] Comment on above: Performed By: #### U RIN2 #### [facility] [address] [place], [place] [address] Calcium [Mass/Vol] 8.8 mg/dL Normal 8.5-10.1 [facility] Comment on above: Performed By: #### U RIN2 #### [facility] [address] [place] [address] Chloride [Moles/Vol] 110 mmol/L High 98-107 [facility] Comment on above: Performed By: #### U RIN2 #### [facility] [address] [place] [address] Potassium [Moles/Vol] 4.0 mmol/L Normal 3.5-5.1 [facility] Comment on above: Performed By: #### U RIN2 #### [facility] [address] [place] [address] Sodium [Moles/Vol] 142 mmol/L Normal 136-145 [facility] Comment on above: Performed By: #### U RIN2 #### [facility] [address] [place] [address] CHEST 2 VIEWSon 06-12-2018 CHEST 2 VIEWS Performed at [facility] APPROVED BY: Hussain Pelayo MD EXAMINATION: CHEST [...] presumed adjacent basilar atelectasis, slightly improved. Normal [facility] Cult Urineon 06-12-2018 Cult Urine Test performed at [facility] Organisms cultured are indicative of probable nonclean catch specimen or contamination of specimen collection system. No further identification or susceptibility testing will be performed. Please submit new specimen. Plates will be held for 5 days. Normal [facility] Comment on above: Performed By: #### T ROP #### [facility] [address] [place] [address] Hemogramon 06-12-2018 Erythrocyte distribution width (RBC) [Ratio] 15.4 % High 11.7-14.4 [facility] Comment on above: Performed By: #### U RIN2 #### [facility] [address] [place] [address] Hematocrit (Bld) [Volume fraction] 32.0 % Low 34.1-44.9 [facility] Comment on above: Performed By: #### U RIN2 #### [facility] [address] [place] [address] Hemoglobin (Bld) [Mass/Vol] 9.7 g/dL Low 11.2-15. 7 [facility] Comment on above: Performed By: #### U RIN2 #### [facility] [address] [place] [address] MCH (RBC) [Entitic mass] 28.7 pg Normal 25.6-32.2 [facility] Comment on above: Performed By: #### U RIN2 #### [facility] [address] [place] [address] MCHC (RBC) [Mass/Vol] 30.3 % Low 31.6-34.8 [facility] Comment on above: Performed By: #### U RIN2 #### [facility] [address] [place] [address] MCV (RBC) [Entitic vol] 94.7 fL Normal 79.4-94.8 [facility] Comment on above: Performed By: #### U RIN2 #### [facility] [address] [place] [address] Platelet mean volume (Bld) [Entitic vol] 10.7 fL Normal 9.4-12.3 [facility] Comment on above: Performed By: #### U RIN2 #### [facility] [address] [place] [address] Platelets (Bld) [#/Vol] 658 thou/cmm High 182-369 [facility] Comment on above: Performed By: #### U RIN2 #### [facility] [address] [place] [address] RBC (Bld) [#/Vol] 3.38 mil/cmm Low 3.93-5.22 [facility] Comment on above: Performed By: #### U RIN2 #### [facility] [address] [place] [address] RDW SD 50.5 fl High 36.4-46.3 [facility] Comment on above: Performed By: #### U RIN2 #### [place] [address] WBC (Bld) [#/Vol] 9.60 thou/cmm Normal 3.98-10.04 [facility] Comment on above: Performed By: #### U RIN2 #### [place] [address] MDRD GFRon 06-12-2018 GFR/1.73 sq M predicted among non-blacks MDRD (S/P/Bld) [Vol rate/Area] 53.13 mL/min/{1.73_m2} Normal >60mL/min/1. 73m2 [facility] Comment on above: Result Comment: If t he patient is , multiply the result by 1.210. Performed By: #### G FR #### [place] [address] Urinalysis, reflexon 019 Reflex Comment see below Normal [facility] Comment on above: Result Comment: A ur ine culture has been ordered based on established laboratory criteria. Performed By: #### U RIN2 #### [place] [address] Bacteria LM.HPF (Urine sed) [#/Area] 4+ Abnormal None [facility] Comment on above: Performed By: #### U RIN2 #### [place] [address] Ep Cells Urine 22.3 /hpf High 0.0-5.0 [facility] Comment on above: Performed By: #### U RIN2 #### [place] [address] Hyaline Cast 5.4 /lpf High 0.0-1.0 [facility] Comment on above: Performed By: #### U RIN2 #### [place] [address] RBC LM.HPF (Urine sed) [#/Area] 14.9 /[HPF] High 0.0-5.0 [facility] Comment on above: Performed By: #### U RIN2 #### [facility] [address] [place] [address] WBC, reflex 129.60 /hpf High 0.00-5.00 [facility] Comment on above: Performed By: #### U RIN2 #### [facility] [address] [place] [address] Appearance (U) CLOUDY Normal [facility] Comment on above: Performed By: #### U RIN2 #### [facility] [address] [place] [address] Bilirubin (U) [Mass/Vol] Negative Normal Negative [facility] Comment on above: Performed By: #### U RIN2 #### [facility] [address] [place] [address] Color (U) YELLOW Normal [facility] Comment on above: Performed By: #### U RIN2 #### [facility] [address] [place] [address] Glucose Ql (U) Negative Normal Negative [facility] Comment on above: Performed By: #### U RIN2 #### [facility] [address] [place] [address] Hemoglobin,Urine Negative Normal Negative [facility] Comment on above: Performed By: #### U RIN2 #### [facility] [address] [place] [address] Ketone Urine TRACE Abnormal Negative [facility] Comment on above: Performed By: #### U RIN2 #### [facility] [address] [place] [address] Leukocyte esterase Test strip Ql (U) MODERATE Abnormal Negative [facility] Comment on above: Performed By: #### U RIN2 #### [facility] [address] [place] [address] Nitrite reflex Negative Normal Negative [facility] Comment on above: Performed By: #### U RIN2 #### [facility] [address] [place] [address] pH (U) 6.5 [pH] Normal 5.0-8.0 [facility] Comment on above: Performed By: #### U RIN2 #### [facility] [address] [place], [place] [address] Protein (U) [Mass/Vol] TRACE Abnormal Negative [facility] Comment on above: Performed By: #### U RIN2 #### [facility] [address] [place], [place] [address] Specific [place], Ur 1.029 Normal 1.005-1.030 [facility] Comment on above: Performed By: #### U RIN2 #### [facility] [address] [place] [address] Urobilinogen,Ur 1.0 EU/dL Normal 0.0-1.0 [facility] Comment on above: Performed By: #### U RIN2 #### [facility] [address] [place] [address] Basic Panelon 06-10-2018 Creatinine [Mass/Vol] 1.24 mg/dL High 0.51-0.95 [facility] Comment on above: Performed By: #### U RIN2 #### [facility] [address] [place] [address] Anion gap [Moles/Vol] 14 mmol/L Normal 8-16 [facility] Comment on above: Performed By: #### U RIN2 #### [facility] [address] [place] [address] CO2 [Moles/Vol] 26 mmol/L Normal 21-32 [facility] Comment on above: Performed By: #### U RIN2 #### [facility] [address] [place] [address] Glucose [Mass/Vol] 173 mg/dL High 70-99 [facility] Comment on above: Performed By: #### U RIN2 #### [facility] [address] [place], [place] [address] Urea nitrogen [Mass/Vol] 25 mg/dL High 7-18 [facility] Comment on above: Performed By: #### U RIN2 #### [place] [address] Calcium [Mass/Vol] 9.0 mg/dL Normal 8.5-10.1 [facility] Comment on above: Performed By: #### U RIN2 #### [facility] [address] [place] [address] Chloride [Moles/Vol] 103 mmol/L Normal 98-107 [facility] Comment on above: Performed By: #### U RIN2 #### [facility] [address] [place] [address] Potassium [Moles/Vol] 4.1 mmol/L Normal 3.5-5.1 [facility] Comment on above: Performed By: #### U RIN2 #### [facility] [address] [place] [address] Sodium [Moles/Vol] 139 mmol/L Normal 136-145 [facility] Comment on above: Performed By: #### U RIN2 #### [facility] [address] [place] [address] Hemogramon 06-10-2018 Erythrocyte distribution width (RBC) [Ratio] 15.0 % High 11.7-14.4 [facility] Comment on above: Performed By: #### U RIN2 #### [facility] [address] [place] [address] Hematocrit (Bld) [Volume fraction] 31.6 % Low 34.1-44.9 [facility] Comment on above: Performed By: #### U RIN2 #### [facility] [address] [place] [address] Hemoglobin (Bld) [Mass/Vol] 9.8 g/dL Low 11.2-15. 7 [facility] Comment on above: Performed By: #### U RIN2 #### [facility] [address] [place] [address] MCH (RBC) [Entitic mass] 28.7 pg Normal 25.6-32.2 [facility] Comment on above: Performed By: #### U RIN2 #### [facility] [address] [place] [address] MCHC (RBC) [Mass/Vol] 31.0 % Low 31.6-34.8 [facility] Comment on above: Performed By: #### U RIN2 #### [facility] [address] [place] [address] MCV (RBC) [Entitic vol] 92.7 fL Normal 79.4-94.8 [facility] Comment on above: Performed By: #### U RIN2 #### [facility] [address] [place] [address] Platelet mean volume (Bld) [Entitic vol] 10.1 fL Normal 9.4-12.3 [facility] Comment on above: Performed By: #### U RIN2 #### [facility] [address] [place] [address] Platelets (Bld) [#/Vol] 728 thou/cmm High 182-369 [facility] Comment on above: Performed By: #### U RIN2 #### [facility] [address] [place] [address] RBC (Bld) [#/Vol] 3.41 mil/cmm Low 3.93-5.22 [facility] Comment on above: Performed By: #### U RIN2 #### [facility] [address] [place] [address] RDW SD 47.8 fl High 36.4-46.3 [facility] Comment on above: Performed By: #### U RIN2 #### [facility] [address] [place] [address] WBC (Bld) [#/Vol] 10.71 thou/cmm High 3.98-10.04 [facility] Comment on above: Performed By: #### U RIN2 #### [facility] [address] [place] [address] Basic Panelon 06-09-2018 Creatinine [Mass/Vol] 1.17 mg/dL High 0.51-0.95 [facility] Comment on above: Performed By: #### U RIN2 #### [facility] [address] [place] [address] Anion gap [Moles/Vol] 12 mmol/L Normal 8-16 [facility] Comment on above: Performed By: #### U RIN2 #### [facility] [address] [place], [place] [address] Calcium [Mass/Vol] 9.0 mg/dL Normal 8.5-10.1 [facility] Comment on above: Performed By: #### U RIN2 #### [facility] [address] [place], [place] [address] CO2 [Moles/Vol] 27 mmol/L Normal 21-32 [facility] Comment on above: Performed By: #### U RIN2 #### [facility] [address] [place], [place] [address] Glucose [Mass/Vol] 154 mg/dL High 70-99 [facility] Comment on above: Performed By: #### U RIN2 #### [facility] [address] [place], [place] [address] Urea nitrogen [Mass/Vol] 21 mg/dL High 7-18 [facility] Comment on above: Performed By: #### U RIN2 #### [facility] [address] [place], [place] [address] Chloride [Moles/Vol] 103 mmol/L Normal 98-107 [facility] Comment on above: Performed By: #### U RIN2 #### [facility] [facility] [place], [place] [address] Potassium [Moles/Vol] 4.4 mmol/L Normal 3.5-5.1 [facility] Comment on above: Performed By: #### U RIN2 #### [facility] [place], [place] [address] Sodium [Moles/Vol] 138 mmol/L Normal 136-145 [facility] Comment on above: Performed By: #### U RIN2 #### [facility] [place], [place] [address] Basic Panelon 06-08-2018 Creatinine [Mass/Vol] 1.18 mg/dL High 0.51-0.95 [facility] Comment on above: Performed By: #### U RIN2 #### [facility] [place], [place] [address] Anion gap [Moles/Vol] 13 mmol/L Normal 8-16 [facility] Comment on above: Performed By: #### U RIN2 #### [facility] [place], [place] [address] CO2 [Moles/Vol] 26 mmol/L Normal 21-32 [facility] Comment on above: Performed By: #### U RIN2 #### [facility] [place], [place] [address] Urea nitrogen [Mass/Vol] 20 mg/dL High 7-18 [facility] Comment on above: Performed By: #### U RIN2 #### [facility] [place], [place] [address] Calcium [Mass/Vol] 9.2 mg/dL Normal 8.5-10.1 [facility] Comment on above: Performed By: #### U RIN2 #### [facility] [place], [place] [address] Glucose [Mass/Vol] 173 mg/dL High 70-99 [facility] Comment on above: Performed By: #### U RIN2 #### [facility] [address] [place] [address] Chloride [Moles/Vol] 102 mmol/L Normal 98-107 [facility] Comment on above: Performed By: #### U RIN2 #### [facility] [place], [place] [address] Potassium [Moles/Vol] 4.3 mmol/L Normal 3.5-5.1 [facility] Comment on above: Performed By: #### U RIN2 #### [facility] [place], [place] [address] Sodium [Moles/Vol] 137 mmol/L Normal 136-145 [facility] Comment on above: Performed By: #### U RIN2 #### [facility] [place], [place] [address] Hemogramon 06-08-2018 Erythrocyte distribution width (RBC) [Ratio] 14.6 % High 11.7-14.4 [facility] Comment on above: Performed By: #### U RIN2 #### [facility] [place], [place] [address] Hematocrit (Bld) [Volume fraction] 32.3 % Low 34.1-44.9 [facility] Comment on above: Performed By: #### U RIN2 #### [facility] [address] [place] [address] Hemoglobin (Bld) [Mass/Vol] 9.8 g/dL Low 11.2-15. 7 [facility] Comment on above: Performed By: #### U RIN2 #### [facility] [address] [place] [address] MCH (RBC) [Entitic mass] 28.2 pg Normal 25.6-32.2 [facility] Comment on above: Performed By: #### U RIN2 #### [facility] [address] [place] [address] MCHC (RBC) [Mass/Vol] 30.3 % Low 31.6-34.8 [facility] Comment on above: Performed By: #### U RIN2 #### [facility] [address] [place] [address] MCV (RBC) [Entitic vol] 93.1 fL Normal 79.4-94.8 [facility] Comment on above: Performed By: #### U RIN2 #### [facility] [address] [place] [address] Platelet mean volume (Bld) [Entitic vol] 10.7 fL Normal 9.4-12.3 [facility] Comment on above: Performed By: #### U RIN2 #### [facility] [address] [place] [address] Platelets (Bld) [#/Vol] 632 thou/cmm High 182-369 [facility] Comment on above: Performed By: #### U RIN2 #### [facility] [address] [place] [address] RBC (Bld) [#/Vol] 3.47 mil/cmm Low 3.93-5.22 [facility] Comment on above: Performed By: #### U RIN2 #### [facility] [address] [place] [address] RDW SD 48.0 fl High 36.4-46.3 [facility] Comment on above: Performed By: #### U RIN2 #### [facility] [place], [place] [address] WBC (Bld) [#/Vol] 8.73 thou/cmm Normal 3.98-10.04 [facility] Comment on above: Performed By: #### U RIN2 #### [facility] [address] [place], [place] [address] Basic Panelon 2018 Creatinine [Mass/Vol] 0.88 mg/dL Normal 0.51-0.95 [facility] Comment on above: Performed By: #### P 8 ####[facility] [place], [place] [address] Calcium [Mass/Vol] 8.8 mg/dL Normal 8.5-10.1 [facility] Comment on above: Performed By: #### P 8 ####[facility] [place], [place] [address] Glucose [Mass/Vol] 115 mg/dL High 70-99 [facility] Comment on above: Performed By: #### P 8 ####[address] [address] Anion gap [Moles/Vol] 12 mmol/L Normal 8-16 [facility] Comment on above: Performed By: #### P 8 ####[facility] [place], [place] [address] CO2 [Moles/Vol] 25 mmol/L Normal 21-32 [facility] Comment on above: Performed By: #### P 8 ####[facility] [place], [place] [address] Urea nitrogen [Mass/Vol] 18 mg/dL Normal 7-18 [facility] Comment on above: Performed By: #### P 8 ####[facility] [place], [place] [address] Chloride [Moles/Vol] 107 mmol/L Normal 98-107 [facility] Comment on above: Performed By: #### P 8 ####[address] [address] Potassium [Moles/Vol] 4.6 mmol/L Normal 3.5-5.1 [facility] Comment on above: Performed By: #### P 8 ####[facility] [place], [place] [address] Sodium [Moles/Vol] 139 mmol/L Normal 136-145 [facility] Comment on above: Performed By: #### P 8 ####[facility] [place], [place] [address] CHEST 2 VIEWSon 2018 CHEST 2 VIEWS Performed at [facility] APPROVED BY: Zenon King MD EXAMINATION: CHEST [...] disease involves the rest of chest. Normal [facility] Basic Panelon 06-06-2018 Creatinine [Mass/Vol] 0.89 mg/dL Normal 0.51-0.95 [facility] Comment on above: Performed By: #### P 8 ####[facility] [place], [place] [address] Anion gap [Moles/Vol] 12 mmol/L Normal 8-16 [facility] Comment on above: Performed By: #### P 8 ####[address] [address] CO2 [Moles/Vol] 29 mmol/L Normal 21-32 [facility] Comment on above: Performed By: #### P 8 ####[address] [address] Urea nitrogen [Mass/Vol] 22 mg/dL High 7-18 [facility] Comment on above: Performed By: #### P 8 ####[facility] [place], [place] [address] Calcium [Mass/Vol] 8.5 mg/dL Normal 8.5-10.1 [facility] Comment on above: Performed By: #### P 8 ####[facility] [place], [place] [address] Glucose [Mass/Vol] 134 mg/dL High 70-99 [facility] Comment on above: Performed By: #### P 8 ####[address] [address] Chloride [Moles/Vol] 105 mmol/L Normal 98-107 [facility] Comment on above: Performed By: #### P 8 ####[address] [address] Potassium [Moles/Vol] 4.7 mmol/L Normal 3.5-5.1 [facility] Comment on above: Performed By: #### P 8 ####[address] [address] Sodium [Moles/Vol] 141 mmol/L Normal 136-145 [facility] Comment on above: Performed By: #### P 8 ####[address] [address] Hemogramon 06-06-2018 Erythrocyte distribution width (RBC) [Ratio] 14.1 % Normal 11.7-14.4 [facility] Comment on above: Performed By: #### C BC1 ####[address] [address] Hematocrit (Bld) [Volume fraction] 25.5 % Low 34.1-44.9 [facility] Comment on above: Performed By: #### C BC1 ####[address] [address] Hemoglobin (Bld) [Mass/Vol] 7.7 g/dL Low 11.2-15. 7 [facility] Comment on above: Performed By: #### C BC1 ####[facility] [place], [place] [address] MCH (RBC) [Entitic mass] 28.0 pg Normal 25.6-32.2 [facility] Comment on above: Performed By: #### C BC1 ####[facility] [place], [place] [address] MCHC (RBC) [Mass/Vol] 30.2 % Low 31.6-34.8 [facility] Comment on above: Performed By: #### C BC1 ####[facility] [place], [place] [address] MCV (RBC) [Entitic vol] 92.7 fL Normal 79.4-94.8 [facility] Comment on above: Performed By: #### C BC1 ####[address] [address] Nucleated RBC (Bld) [#/Vol] 0.04 thou/cmm High 0.00- 0.01 [facility] Comment on above: Performed By: #### C BC1 ####[address] [address] Nucleated RBC/100 WBC (Bld) [Ratio] 0.4 % High 0.0-0.2 [facility] Comment on above: Performed By: #### C BC1 ####[address] [address] Platelet mean volume (Bld) [Entitic vol] 11.1 fL Normal 9.4-12.3 [facility] Comment on above: Performed By: #### C BC1 ####[address] [address] Platelets (Bld) [#/Vol] 435 thou/cmm High 182-369 [facility] Comment on above: Performed By: #### C BC1 ####[address] [address] RBC (Bld) [#/Vol] 2.75 mil/cmm Low 3.93-5.22 [facility] Comment on above: Performed By: #### C BC1 ####[facility] [place], [place] [address] RDW SD 47.2 fl High 36.4-46.3 [facility] Comment on above: Performed By: #### C BC1 ####[facility] [place], [place] [address] WBC (Bld) [#/Vol] 9.11 thou/cmm Normal 3.98-10.04 [facility] Comment on above: Performed By: #### C BC1 ####[address] [address] Basic Panelon 06-05-2018 Creatinine [Mass/Vol] 0.86 mg/dL Normal 0.51-0.95 [facility] Comment on above: Performed By: #### P 8 ####[address] [address] Anion gap [Moles/Vol] 10 mmol/L Normal 8-16 [facility] Comment on above: Performed By: #### P 8 ####[address] [address] CO2 [Moles/Vol] 29 mmol/L Normal 21-32 [facility] Comment on above: Performed By: #### P 8 ####[address] [address] Urea nitrogen [Mass/Vol] 23 mg/dL High 7-18 [facility] Comment on above: Performed By: #### P 8 ####[address] [address] Calcium [Mass/Vol] 8.2 mg/dL Low 8.5-10.1 [facility] Comment on above: Performed By: #### P 8 ####[address] [address] Glucose [Mass/Vol] 135 mg/dL High 70-99 [facility] Comment on above: Performed By: #### P 8 ####[address] [address] Chloride [Moles/Vol] 107 mmol/L Normal 98-107 [facility] Comment on above: Performed By: #### P 8 ####[facility] [place], [place] [address] Potassium [Moles/Vol] 4.1 mmol/L Normal 3.5-5.1 [facility] Comment on above: Performed By: #### P 8 ####[facility] [place], [place] [address] Sodium [Moles/Vol] 142 mmol/L Normal 136-145 [facility] Comment on above: Performed By: #### P 8 ####[facility] [place], [place] [address] CHEST 1 VIEWon 06-05-2018 CHEST 1 VIEW Performed at [facility] APPROVED BY: Zenon King MD EXAMINATION: CHEST [...] without evidence of significant interstitial edema. Normal [facility] Hemogramon 06-05-2018 Erythrocyte distribution width (RBC) [Ratio] 13.9 % Normal 11.7-14.4 [facility] Comment on above: Performed By: #### C BC1 ####[address] [address] Hematocrit (Bld) [Volume fraction] 24.6 % Low 34.1-44.9 [facility] Comment on above: Performed By: #### C BC1 ####[address], [place] [address] Hemoglobin (Bld) [Mass/Vol] 7.7 g/dL Low 11.2-15. 7 [facility] Comment on above: Performed By: #### C BC1 ####[facility] [place], [place] [address] MCH (RBC) [Entitic mass] 28.7 pg Normal 25.6-32.2 [facility] Comment on above: Performed By: #### C BC1 ####[facility] [place], [place] [address] MCHC (RBC) [Mass/Vol] 31.3 % Low 31.6-34.8 [facility] Comment on above: Performed By: #### C BC1 ####[address] [address] MCV (RBC) [Entitic vol] 91.8 fL Normal 79.4-94.8 [facility] Comment on above: Performed By: #### C BC1 ####[address] [address] Nucleated RBC (Bld) [#/Vol] 0.05 thou/cmm High 0.00- 0.01 [facility] Comment on above: Performed By: #### C BC1 ####[address] [address] Nucleated RBC/100 WBC (Bld) [Ratio] 0.6 % High 0.0-0.2 [facility] Comment on above: Performed By: #### C BC1 ####[address] [address] Platelet mean volume (Bld) [Entitic vol] 11.1 fL Normal 9.4-12.3 [facility] Comment on above: Performed By: #### C BC1 ####[address] [address] Platelets (Bld) [#/Vol] 324 thou/cmm Normal 182-369 [facility] Comment on above: Performed By: #### C BC1 ####[address], [place] [address] RBC (Bld) [#/Vol] 2.68 mil/cmm Low 3.93-5.22 [facility] Comment on above: Performed By: #### C BC1 ####[address] [address] RDW SD 46.1 fl Normal 36.4-46.3 [facility] Comment on above: Performed By: #### C BC1 ####[address] [address] WBC (Bld) [#/Vol] 8.57 thou/cmm Normal 3.98-10.04 [facility] Comment on above: Performed By: #### C BC1 ####[address] [address] Basic Panelon 06-04-2018 Creatinine [Mass/Vol] 0.81 mg/dL Normal 0.51-0.95 [facility] Comment on above: Performed By: #### P 8 ####[address] [address] Anion gap [Moles/Vol] 10 mmol/L Normal 8-16 [facility] Comment on above: Performed By: #### P 8 ####[address] [address] Calcium [Mass/Vol] 8.1 mg/dL Low 8.5-10.1 [facility] Comment on above: Performed By: #### P 8 ####[address] [address] CO2 [Moles/Vol] 27 mmol/L Normal 21-32 [facility] Comment on above: Performed By: #### P 8 ####[address] [address] Glucose [Mass/Vol] 148 mg/dL High 70-99 [facility] Comment on above: Performed By: #### P 8 ####[address] [address] Urea nitrogen [Mass/Vol] 21 mg/dL High 7-18 [facility] Comment on above: Performed By: #### P 8 ####[facility] [place], [place] [address] Chloride [Moles/Vol] 110 mmol/L High 98-107 [facility] Comment on above: Performed By: #### P 8 ####[facility] [place], [place] [address] Potassium [Moles/Vol] 4.1 mmol/L Normal 3.5-5.1 [facility] Comment on above: Performed By: #### P 8 ####[facility] [place], [place] [address] Sodium [Moles/Vol] 143 mmol/L Normal 136-145 [facility] Comment on above: Performed By: #### P 8 ####[address] [address] CHEST 1 VIEWon 06-04-2018 CHEST 1 VIEW Performed at [facility] APPROVED BY: Zunilda Loyola MD EXAM TITLE: CHEST 1 VIEW DATE: 06/04/2018 05:59 INDICATION: Postoperative COMPARISON: 06/03/2018 FINDINGS: There is continued opacity at left base secondary to atelectasis and pleural fluid. Right lung is relatively clear. There is no visible pneumothorax. Central venous catheter are stable. Heart is mildly enlarged and there are sternotomy wires. IMPRESSION: Stable appearance. Normal [facility] Hemogramon 06-04-2018 Erythrocyte distribution width (RBC) [Ratio] 14.0 % Normal 11.7-14.4 [facility] Comment on above: Performed By: #### C BC1 ####[facility] [place], [place] [address] Hematocrit (Bld) [Volume fraction] 23.1 % Low 34.1-44.9 [facility] Comment on above: Performed By: #### C BC1 ####[address] [address] Hemoglobin (Bld) [Mass/Vol] 7.3 g/dL Low 11.2-15. 7 [facility] Comment on above: Performed By: #### C BC1 ####[address] [address] MCH (RBC) [Entitic mass] 29.1 pg Normal 25.6-32.2 [facility] Comment on above: Performed By: #### C BC1 ####[facility] [place], [place] [address] MCHC (RBC) [Mass/Vol] 31.6 % Normal 31.6-34.8 [facility] Comment on above: Performed By: #### C BC1 ####[place] [id number] MCV (RBC) [Entitic vol] 92.0 fL Normal 79.4-94.8 [facility] Comment on above: Performed By: #### C BC1 ####[place] [address] Platelet mean volume (Bld) [Entitic vol] 11.6 fL Normal 9.4-12.3 [facility] Comment on above: Performed By: #### C BC1 ####[place] [id number] Platelets (Bld) [#/Vol] 245 thou/cmm Normal 182-369 [facility] Comment on above: Performed By: #### C BC1 ####[place] [address] RBC (Bld) [#/Vol] 2.51 mil/cmm Low 3.93-5.22 [facility] Comment on above: Performed By: #### C BC1 ####[place] [address] RDW SD 47.4 fl High 36.4-46.3 [facility] Comment on above: Performed By: #### C BC1 ####[place] [id number] WBC (Bld) [#/Vol] 8.24 thou/cmm Normal 3.98-10.04 [facility] Comment on above: Performed By: #### C BC1 ####[place] [id number] Basic Panelon 06-03-2018 Creatinine [Mass/Vol] 0.72 mg/dL Normal 0.51-0.95 [facility] Comment on above: Performed By: #### H EPAP #### [facility] [place], [place] [address] Anion gap [Moles/Vol] 12 mmol/L Normal 8-16 [facility] Comment on above: Performed By: #### H EPAP #### [facility] [place], [place] [address] CO2 [Moles/Vol] 24 mmol/L Normal 21-32 [facility] Comment on above: Performed By: #### H EPAP #### [facility] [place], [place] [address] Urea nitrogen [Mass/Vol] 21 mg/dL High 7-18 [facility] Comment on above: Performed By: #### H EPAP #### [facility] [place], [place] [address] Calcium [Mass/Vol] 7.7 mg/dL Low 8.5-10.1 [facility] Comment on above: Performed By: #### H EPAP #### [facility] [place], [place] [address] Glucose [Mass/Vol] 210 mg/dL High 70-99 [facility] Comment on above: Performed By: #### H EPAP #### [facility] [place], [place] [address] Chloride [Moles/Vol] 110 mmol/L High 98-107 [facility] Comment on above: Performed By: #### H EPAP #### [facility] [place], [place] [address] Potassium [Moles/Vol] 3.8 mmol/L Normal 3.5-5.1 [facility] Comment on above: Performed By: #### H EPAP #### [facility] [place], [place] [address] Sodium [Moles/Vol] 142 mmol/L Normal 136-145 [facility] Comment on above: Performed By: #### H EPAP #### [facility] [address] [place] [address] CHEST 1 VIEWon 06-03-2018 CHEST 1 VIEW Performed at [facility] APPROVED BY: Zenon King MD EXAMINATION: CHEST [...] involves the rest of the chest. Normal [facility] Ferritinon 06-03-2018 Ferritin [Mass/Vol] 293.80 ng/mL High 8.00-252.00 [facility] Comment on above: Performed By: #### F ERR ####[place] [address] Hemogramon 06-03-2018 Erythrocyte distribution width (RBC) [Ratio] 13.5 % Normal 11.7-14.4 [facility] Comment on above: Performed By: #### H EPAP #### [place] [address] Hematocrit (Bld) [Volume fraction] 22.6 % Low 34.1-44.9 [facility] Comment on above: Performed By: #### H EPAP #### [place] [address] Hemoglobin (Bld) [Mass/Vol] 7.0 g/dL Critically low 11.2 -15.7 [facility] Comment on above: Performed By: #### H EPAP #### [place] [address] MCH (RBC) [Entitic mass] 28.9 pg Normal 25.6-32.2 [facility] Comment on above: Performed By: #### H EPAP #### [facility] [address] [place] [id number] MCHC (RBC) [Mass/Vol] 31.0 % Low 31.6-34.8 [facility] Comment on above: Performed By: #### H EPAP #### [facility] [address] [place] [address] MCV (RBC) [Entitic vol] 93.4 fL Normal 79.4-94.8 [facility] Comment on above: Performed By: #### H EPAP #### [place] [address] Nucleated RBC (Bld) [#/Vol] 0.02 thou/cmm High 0.00- 0.01 [facility] Comment on above: Performed By: #### H EPAP #### [place] [address] Nucleated RBC/100 WBC (Bld) [Ratio] 0.2 % Normal 0.0-0.2 [facility] Comment on above: Performed By: #### H EPAP #### [place] [address] Platelet mean volume (Bld) [Entitic vol] 12.6 fL High 9.4-12.3 [facility] Comment on above: Performed By: #### H EPAP #### [place] [address] Platelets (Bld) [#/Vol] 181 thou/cmm Low 182-369 [facility] Comment on above: Performed By: #### H EPAP #### [place] [id number] RBC (Bld) [#/Vol] 2.42 mil/cmm Low 3.93-5.22 [facility] Comment on above: Performed By: #### H EPAP #### [place] [address] RDW SD 47.1 fl High 36.4-46.3 [facility] Comment on above: Performed By: #### H EPAP #### [facility] [place], [place] [address] WBC (Bld) [#/Vol] 9.22 thou/cmm Normal 3.98-10.04 [facility] Comment on above: Performed By: #### H EPAP #### [facility] [address] [place] [address] Basic Panelon 06-02-2018 Creatinine [Mass/Vol] 0.79 mg/dL Normal 0.51-0.95 [facility] Comment on above: Performed By: #### H EPAP #### [address] [address] Anion gap [Moles/Vol] 10 mmol/L Normal 8-16 [facility] Comment on above: Performed By: #### H EPAP #### [address] [address] CO2 [Moles/Vol] 23 mmol/L Normal 21-32 [facility] Comment on above: Performed By: #### H EPAP #### [address] [address] Urea nitrogen [Mass/Vol] 22 mg/dL High 7-18 [facility] Comment on above: Performed By: #### H EPAP #### [address] [address] Calcium [Mass/Vol] 7.6 mg/dL Low 8.5-10.1 [facility] Comment on above: Performed By: #### H EPAP #### [facility] [place], [place] [address] Glucose [Mass/Vol] 130 mg/dL High 70-99 [facility] Comment on above: Performed By: #### H EPAP #### [address] [address] Chloride [Moles/Vol] 112 mmol/L High 98-107 [facility] Comment on above: Performed By: #### H EPAP #### [address] [place], [place] [address] Potassium [Moles/Vol] 3.8 mmol/L Normal 3.5-5.1 [facility] Comment on above: Performed By: #### H EPAP #### [facility] [address] [place], [place] [address] Sodium [Moles/Vol] 141 mmol/L Normal 136-145 [facility] Comment on above: Performed By: #### H EPAP #### [facility] [address] [place] [id number] CHEST 1 VIEWon 06-02-2018 CHEST 1 VIEW Performed at [facility] APPROVED BY: Triston Xiao MD EXAMINATION: CHEST [...] WITH ADJACENT ATELECTASIS OR DEVELOPING PNEUMONIA. Normal [facility] Hemogramon 06-02-2018 Erythrocyte distribution width (RBC) [Ratio] 13.6 % Normal 11.7-14.4 [facility] Comment on above: Performed By: #### H EPAP #### [facility] [address] [place], [place] [address] Hematocrit (Bld) [Volume fraction] 22.9 % Low 34.1-44.9 [facility] Comment on above: Performed By: #### H EPAP #### [facility] [address] [place], [place] [address] Hemoglobin (Bld) [Mass/Vol] 7.0 g/dL Critically low 11.2 -15.7 [facility] Comment on above: Result Comment: Repe ated AND verified Performed By: #### H EPAP #### [facility] [address] [place] [address] MCH (RBC) [Entitic mass] 28.8 pg Normal 25.6-32.2 [facility] Comment on above: Performed By: #### H EPAP #### [facility] [address] [place] [address] MCHC (RBC) [Mass/Vol] 30.6 % Low 31.6-34.8 [facility] Comment on above: Performed By: #### H EPAP #### [facility] [address] [place] [address] MCV (RBC) [Entitic vol] 94.2 fL Normal 79.4-94.8 [facility] Comment on above: Performed By: #### H EPAP #### [facility] [address] [place] [address] Platelet mean volume (Bld) [Entitic vol] 12.7 fL High 9.4-12.3 [facility] Comment on above: Performed By: #### H EPAP #### [facility] [address] [place] [address] Platelets (Bld) [#/Vol] 137 thou/cmm Low 182-369 [facility] Comment on above: Performed By: #### H EPAP #### [facility] [address] [place] [address] RBC (Bld) [#/Vol] 2.43 mil/cmm Low 3.93-5.22 [facility] Comment on above: Performed By: #### H EPAP #### [facility] [address] [place] [address] RDW SD 46.6 fl High 36.4-46.3 [facility] Comment on above: Performed By: #### H EPAP #### [facility] [address] [place] [address] WBC (Bld) [#/Vol] 9.27 thou/cmm Normal 3.98-10.04 [facility] Comment on above: Performed By: #### H EPAP #### [facility] [address] [place] [address] Iron % Saturationon 06-02-20 18 Iron % Saturation 7 % Low 20-55 [facility] Comment on above: Performed By: #### H EPAP #### [facility] [address] [place] [address] Iron Binding Cap. 112 ug/dL Low 250-450 [facility] Comment on above: Performed By: #### H EPAP #### [facility] [address] [place] [address] Iron Serum 8 ug/dL Low 50-170 [facility] Comment on above: Performed By: #### H EPAP #### [facility] [address] [place] [address] Urinalysis Routineon 018 Bacteria LM.HPF (Urine sed) [#/Area] 4+ Abnormal None [facility] Comment on above: Performed By: #### H EPAP #### [place] [address] Ep Cells Urine 0.8 /hpf Normal 0.0-5.0 [facility] Comment on above: Performed By: #### H EPAP #### [place] [address] Hyaline Cast 0.4 /lpf Normal 0.0-1.0 [facility] Comment on above: Performed By: #### H EPAP #### [place] [address] RBC LM.HPF (Urine sed) [#/Area] 2.5 /[HPF] Normal 0.0-5.0 [facility] Comment on above: Performed By: #### H EPAP #### [place] [address] WBC LM.HPF (Urine sed) [#/Area] 6.7 /[HPF] High 0.0-5.0 [facility] Comment on above: Performed By: #### H EPAP #### [place] [address] Appearance (U) CLOUDY Normal [facility] Comment on above: Performed By: #### H EPAP #### [facility] [address] [place] [address] Bilirubin (U) [Mass/Vol] Negative Normal Negative [facility] Comment on above: Performed By: #### H EPAP #### [facility] [address] [place] [address] Color (U) YELLOW Normal [facility] Comment on above: Performed By: #### H EPAP #### [facility] [address] [place] [address] Glucose Ql (U) Negative Normal Negative [facility] Comment on above: Performed By: #### H EPAP #### [facility] [address] [place] [address] Hemoglobin,Urine Negative Normal Negative [facility] Comment on above: Performed By: #### H EPAP #### [facility] [address] [place] [address] Ketone Urine Negative Normal Negative [facility] Comment on above: Performed By: #### H EPAP #### [facility] [address] [place] [address] Leukocytes Esterase TRACE Abnormal Negative [facility] Comment on above: Performed By: #### H EPAP #### [facility] [address] [place] [address] Nitrites Urine Negative Normal Negative [facility] Comment on above: Performed By: #### H EPAP #### [facility] [address] [place] [address] pH (U) 7.5 [pH] Normal 5.0-8.0 [facility] Comment on above: Performed By: #### H EPAP #### [facility] [address] [place] [address] Protein (U) [Mass/Vol] 30 mg/dL Abnormal Negative [facility] Comment on above: Performed By: #### H EPAP #### [facility] [address] [place] [address] Specific [place], Ur 1.027 Normal 1.005-1.030 [facility] Comment on above: Performed By: #### H EPAP #### [facility] [address] [place], [place] [address] Urobilinogen,Ur 0.2 EU/dL Normal 0.0-1.0 [facility] Comment on above: Performed By: #### H EPAP #### [facility] [address] [place] [address] Basic Panelon 06-01-2018 Creatinine [Mass/Vol] 0.95 mg/dL Normal 0.51-0.95 [facility] Comment on above: Performed By: #### L IP #### [facility] [address] [place] [address] Anion gap [Moles/Vol] 11 mmol/L Normal 8-16 [facility] Comment on above: Performed By: #### L IP #### [facility] [address] [place], [place] [address] CO2 [Moles/Vol] 21 mmol/L Normal 21-32 [facility] Comment on above: Performed By: #### L IP #### [facility] [address] [place] [address] Urea nitrogen [Mass/Vol] 19 mg/dL High 7-18 [facility] Comment on above: Performed By: #### L IP #### [facility] [address] [place], [place] [address] Calcium [Mass/Vol] 7.4 mg/dL Low 8.5-10.1 [facility] Comment on above: Performed By: #### L IP #### [facility] [address] [place], [place] [address] Glucose [Mass/Vol] 135 mg/dL High 70-99 [facility] Comment on above: Performed By: #### L IP #### [facility] [address] [place], [place] [address] Chloride [Moles/Vol] 111 mmol/L High 98-107 [facility] Comment on above: Performed By: #### L IP #### [facility] [address] [place], [place] [address] Potassium [Moles/Vol] 4.3 mmol/L Normal 3.5-5.1 [facility] Comment on above: Performed By: #### L IP #### [facility] [address] [place] [address] Sodium [Moles/Vol] 139 mmol/L Normal 136-145 [facility] Comment on above: Performed By: #### L IP #### [facility] [address] [place], [place] [address] Blood Gas Arterialon 018 Base Excess -5.1 mEq/L Normal -2.5 to 2.5 [facility] Comment on above: Performed By: #### L IP #### [facility] [address] [place] [address] HCO3 (Bld) [Moles/Vol] 21.4 mmol/L Low 22.0-26.0 [facility] Comment on above: Performed By: #### L IP #### [facility] [address] [place] [address] O2% Sat Arterial 98.4 % High 95.0-98.0 [facility] Comment on above: Performed By: #### L IP #### [facility] [address] [place] [address] PCO2 Arterial 47.3 mm Hg High 36.0-46.0 [facility] Comment on above: Performed By: #### L IP #### [facility] [address] [place] [address] pH Arterial 7.274 Low 7.350-7.450 [facility] Comment on above: Performed By: #### L IP #### [facility] [address] [place] [address] PO2 Arterial 142.6 mm Hg High 85.0-96.0 [facility] Comment on above: Performed By: #### L IP #### [facility] [address] [place] [address] FIO2 36 % Normal [facility] Comment on above: Performed By: #### L IP #### [facility] [address] [place] [address] CHEST 1 VIEWon 06-01-2018 CHEST 1 VIEW Performed at [facility] APPROVED BY: Triston Xiao MD EXAMINATION: CHEST [...] SCARRING WITHIN THE LEFT MIDLUNG REGION. Normal [facility] CHEST 1 VIEW Performed at [facility] APPROVED BY: Qamar Ndiaye MD PORTABLE FRONTAL [...] atelectasis. Remaining life-support equipment as noted. Normal [facility] Hcton 06-01-2018 Hematocrit (Bld) [Volume fraction] 25.2 % Low 34.1-44.9 [facility] Comment on above: Performed By: #### L IP #### [facility] [address] [place], [place] [address] Hemogramon 06-01-2018 Erythrocyte distribution width (RBC) [Ratio] 13.5 % Normal 11.7-14.4 [facility] Comment on above: Performed By: #### L IP #### [facility] [address] [place], [place] [address] Hematocrit (Bld) [Volume fraction] 26.4 % Low 34.1-44.9 [facility] Comment on above: Performed By: #### L IP #### [facility] [address] [place] [address] Hemoglobin (Bld) [Mass/Vol] 8.1 g/dL Low 11.2-15. 7 [facility] Comment on above: Performed By: #### L IP #### [facility] [address] [place] [address] MCH (RBC) [Entitic mass] 29.2 pg Normal 25.6-32.2 [facility] Comment on above: Performed By: #### L IP #### [facility] [address] [place] [address] MCHC (RBC) [Mass/Vol] 30.7 % Low 31.6-34.8 [facility] Comment on above: Performed By: #### L IP #### [facility] [address] [place] [address] MCV (RBC) [Entitic vol] 95.3 fL High 79.4-94.8 [facility] Comment on above: Performed By: #### L IP #### [facility] [address] [place] [address] Platelet mean volume (Bld) [Entitic vol] 11.8 fL Normal 9.4-12.3 [facility] Comment on above: Performed By: #### L IP #### [facility] [address] [place] [address] Platelets (Bld) [#/Vol] 129 thou/cmm Low 182-369 [facility] Comment on above: Performed By: #### L IP #### [facility] [address] [place] [address] RBC (Bld) [#/Vol] 2.77 mil/cmm Low 3.93-5.22 [facility] Comment on above: Performed By: #### L IP #### [facility] [address] [place] [address] RDW SD 47.1 fl High 36.4-46.3 [facility] Comment on above: Performed By: #### L IP #### [facility] [address] [place] [address] WBC (Bld) [#/Vol] 13.68 thou/cmm High 3.98-10.04 [facility] Comment on above: Performed By: #### L IP #### [facility] [address] [place] [address] Hgbon 06-01-2018 Hemoglobin (Bld) [Mass/Vol] 7.8 g/dL Low 11.2-15. 7 [facility] Comment on above: Performed By: #### L IP #### [facility] [address] [place] [address] Magnesium Bloodon 06-01-2018 Magnesium [Mass/Vol] 2.5 mg/dL Normal 1.6-2.6 [facility] Comment on above: Performed By: #### H EPAP #### [facility] [address] [place] [address] Magnesium [Mass/Vol] 2.4 mg/dL Normal 1.6-2.6 [facility] Comment on above: Performed By: #### L IP #### [facility] [address] [place] [address] Potassium Bloodon 06-01-2018 Potassium [Moles/Vol] 3.9 mmol/L Normal 3.5-5.1 [facility] Comment on above: Performed By: #### H EPAP #### [facility] [address] [place] [address] Basic Panelon 05-31-2018 Creatinine [Mass/Vol] 0.78 mg/dL Normal 0.51-0.95 [facility] Comment on above: Performed By: #### G FR #### [facility] [address] [place] [address] Anion gap [Moles/Vol] 13 mmol/L Normal 8-16 [facility] Comment on above: Performed By: #### G FR #### [facility] [address] [place] [address] Calcium [Mass/Vol] 7.9 mg/dL Low 8.5-10.1 [facility] Comment on above: Performed By: #### G FR #### [facility] [address] [place], [place] [address] CO2 [Moles/Vol] 22 mmol/L Normal 21-32 [facility] Comment on above: Performed By: #### G FR #### [facility] [address] [place], [place] [address] Glucose [Mass/Vol] 145 mg/dL High 70-99 [facility] Comment on above: Performed By: #### G FR #### [facility] [address] [place], [place] [address] Urea nitrogen [Mass/Vol] 16 mg/dL Normal 7-18 [facility] Comment on above: Performed By: #### G FR #### [facility] [address] [place], [place] [address] Chloride [Moles/Vol] 112 mmol/L High 98-107 [facility] Comment on above: Performed By: #### G FR #### [facility] [address] [place], [place] [address] Potassium [Moles/Vol] 4.0 mmol/L Normal 3.5-5.1 [facility] Comment on above: Performed By: #### G FR #### [facility] [address] [place], [place] [address] Sodium [Moles/Vol] 143 mmol/L Normal 136-145 [facility] Comment on above: Performed By: #### G FR #### [facility] [address] [place], [place] [address] Blood Gas Arterialon 05-31- 018 FIO2 32 % Normal [facility] Comment on above: Performed By: #### G FR #### [facility] [address] [place], [place] [address] Base Excess -4.1 mEq/L Normal -2.5 to 2.5 [facility] Comment on above: Performed By: #### G FR #### [facility] [address] [place], [place] [address] HCO3 (Bld) [Moles/Vol] 20.9 mmol/L Low 22.0-26.0 [facility] Comment on above: Performed By: #### G FR #### [facility] [address] [place], [place] [address] O2% Sat Arterial 98.2 % High 95.0-98.0 [facility] Comment on above: Performed By: #### G FR #### [facility] [address] [place], [place] [address] PCO2 Arterial 37.7 mm Hg Normal 36.0-46.0 [facility] Comment on above: Performed By: #### G FR #### [facility] [address] [place] [address] pH Arterial 7.362 Normal 7.350-7.450 [facility] Comment on above: Performed By: #### G FR #### [facility] [address] [place] [address] PO2 Arterial 119.4 mm Hg High 85.0-96.0 [facility] Comment on above: Performed By: #### G FR #### [facility] [address] [place] [address] Base Excess -7.9 mEq/L Normal -2.5 to 2.5 [facility] Comment on above: Performed By: #### G FR #### [facility] [address] [place] [address] HCO3 (Bld) [Moles/Vol] 17.4 mmol/L Low 22.0-26.0 [facility] Comment on above: Performed By: #### G FR #### [facility] [address] [place] [address] O2% Sat Arterial 96.9 % Normal 95.0-98.0 [facility] Comment on above: Performed By: #### G FR #### [facility] [address] [place] [address] PCO2 Arterial 34.4 mm Hg Low 36.0-46.0 [facility] Comment on above: Performed By: #### G FR #### [facility] [address] [place] [address] pH Arterial 7.322 Low 7.350-7.450 [facility] Comment on above: Performed By: #### G FR #### [facility] [address] [place] [address] PO2 Arterial 89.7 mm Hg Normal 85.0-96.0 [facility] Comment on above: Performed By: #### G FR #### [facility] [address] [place] [address] FIO2 30 % Normal [facility] Comment on above: Performed By: #### G FR #### [facility] [address] [place] [address] CHEST 1 VIEWon 05-31-2018 CHEST 1 VIEW Performed at [facility] APPROVED BY: Triston Xiao MD EXAMINATION: CHEST RADIOGRAPH (PORTABLE SINGLE VIEW AP) Exam Date/Time: 05/31/2018 5:33 AM Indication: Postop day 1; evaluate line position Comparison: Chest x-ray done the prior day RESULT: Lines, tubes, and devices: Hamden-Chaya catheter, mediastinal drain and left thoracostomy tube are unchanged. Lungs and pleura: No focal consolidation, mass or pleural effusion is seen. Cardiomediastinal silhouette: Normal in appearance. Bony thorax is appropriate for the patient's age. No pneumothorax is seen. IMPRESSION: No acute or active intrathoracic abnormality is seen. Normal [facility] Hemogramon 05-31-2018 Erythrocyte distribution width (RBC) [Ratio] 13.1 % Normal 11.7-14.4 [facility] Comment on above: Performed By: #### G FR #### [facility] [address] [place] [address] Hematocrit (Bld) [Volume fraction] 28.7 % Low 34.1-44.9 [facility] Comment on above: Performed By: #### G FR #### [facility] [address] [place] [address] Hemoglobin (Bld) [Mass/Vol] 9.2 g/dL Low 11.2-15. 7 [facility] Comment on above: Performed By: #### G FR #### [facility] [address] [place] [address] MCH (RBC) [Entitic mass] 29.2 pg Normal 25.6-32.2 [facility] Comment on above: Performed By: #### G FR #### [facility] [address] [place] [address] MCHC (RBC) [Mass/Vol] 32.1 % Normal 31.6-34.8 [facility] Comment on above: Performed By: #### G FR #### [facility] [address] [place] [address] MCV (RBC) [Entitic vol] 91.1 fL Normal 79.4-94.8 [facility] Comment on above: Performed By: #### G FR #### [facility] [address] [place] [address] Platelet mean volume (Bld) [Entitic vol] 12.2 fL Normal 9.4-12.3 [facility] Comment on above: Performed By: #### G FR #### [place] [address] Platelets (Bld) [#/Vol] 148 thou/cmm Low 182-369 [facility] Comment on above: Performed By: #### G FR #### [facility] [address] [place] [address] RBC (Bld) [#/Vol] 3.15 mil/cmm Low 3.93-5.22 [facility] Comment on above: Performed By: #### G FR #### [place] [address] RDW SD 43.3 fl Normal 36.4-46.3 [facility] Comment on above: Performed By: #### G FR #### [place] [address] WBC (Bld) [#/Vol] 17.35 thou/cmm High 3.98-10.04 [facility] Comment on above: Performed By: #### G FR #### [facility] [address] [place] [address] Magnesium Bloodon 05-31-2018 Magnesium [Mass/Vol] 2.4 mg/dL Normal 1.6-2.6 [facility] Comment on above: Performed By: #### L IP #### [place] [address] Protimeon 12-27-2018 INR Coag (PPP) [Relative time] 1.04 {INR} Normal 0.90-1.30 [facility] Comment on above: Result Comment: Note : Reference Range Change Vitamin K Antagonist (VKA) Therapeutic Range: INR 2 to 3 (Target INR of 2.5) Note: For patients treated with VKA drugs, such as warfarin, the [place] 2012 Guideline recommends [...] GH, et al. Chest 2012; 141:7S-47S Deng RA, et al. JACC 2017; 70: 252-289 Performed By: #### G FR #### [place] [address] PT Coag (PPP) [Time] 10.8 s Normal 9.7-13.0 [facility] Comment on above: Performed By: #### G FR #### [place] [address] ACT Arterial Panel (i-STAT)o n 05-30-2018 Kaolin ACT ( i-STAT) 120 sec Normal 74-137 [facility] Comment on above: Performed By: #### P 8 #### [place] [address] Activated PTTon 05-30-2018 aPTT Coag (Bld) [Time] 28.2 s Normal 23.0-32.4 [facility] Comment on above: Result Comment: Note : [...] laboratory APTT reagent in use throughout the [facility]. Performed By: #### G FR #### [place] [id number] aPTT Coag (Bld) [Time] 49.9 s High 23.0-32.4 [facility] Comment on above: Result Comment: Note : [...] laboratory APTT reagent in use throughout the [facility]. Performed By: #### P 8 #### [place] [id number] Basic Panelon 05-30-2018 Creatinine [Mass/Vol] 0.79 mg/dL Normal 0.51-0.95 [facility] Comment on above: Performed By: #### G FR #### [address] [address] Anion gap [Moles/Vol] 13 mmol/L Normal 8-16 [facility] Comment on above: Performed By: #### G FR #### [address] [address] CO2 [Moles/Vol] 22 mmol/L Normal 21-32 [facility] Comment on above: Performed By: #### G FR #### [address] [address] Glucose [Mass/Vol] 119 mg/dL High 70-99 [facility] Comment on above: Performed By: #### G FR #### [facility] [address] [place], [place] [address] Urea nitrogen [Mass/Vol] 12 mg/dL Normal 7-18 [facility] Comment on above: Performed By: #### G FR #### [facility] [address] [place], [place] [address] Calcium [Mass/Vol] 8.0 mg/dL Low 8.5-10.1 [facility] Comment on above: Performed By: #### G FR #### [facility] [address] [place], [place] [address] Chloride [Moles/Vol] 113 mmol/L High 98-107 [facility] Comment on above: Performed By: #### G FR #### [facility] [address] [place] [address] Potassium [Moles/Vol] 3.8 mmol/L Normal 3.5-5.1 [facility] Comment on above: Performed By: #### G FR #### [facility] [address] [place] [address] Sodium [Moles/Vol] 144 mmol/L Normal 136-145 [facility] Comment on above: Performed By: #### G FR #### [facility] [address] [place] [address] Blood Gas Arterialon 12-26-2 018 Base Excess -3.9 mEq/L Normal -2.5 to 2.5 [facility] Comment on above: Performed By: #### P 8 #### [facility] [address] [place], [place] [address] HCO3 (Bld) [Moles/Vol] 21.1 mmol/L Low 22.0-26.0 [facility] Comment on above: Performed By: #### P 8 #### [facility] [address] [place], [place] [address] O2% Sat Arterial 99.0 % High 95.0-98.0 [facility] Comment on above: Performed By: #### P 8 #### [facility] [address] [place] [address] PCO2 Arterial 36.4 mm Hg Normal 36.0-46.0 [facility] Comment on above: Performed By: #### P 8 #### [facility] [address] [place] [address] pH Arterial 7.377 Normal 7.350-7.450 [facility] Comment on above: Performed By: #### P 8 #### [facility] [address] [place] [address] PO2 Arterial 176.9 mm Hg High 85.0-96.0 [facility] Comment on above: Performed By: #### P 8 #### [facility] [address] [place] [address] FIO2 50 % Normal [facility] Comment on above: Performed By: #### P 8 #### [facility] [address] [place] [address] CG8 Arterial Panel (i-STAT)o n 05-30-2018 Base Excess (i-STAT) 0.0 mmol/L Normal -2.0 to 3.0 [facility] Comment on above: Performed By: #### P 8 #### [facility] [address] [place] [address] Glucose [Mass/Vol] 133 mg/dL High 70-99 [facility] Comment on above: Performed By: #### P 8 #### [facility] [address] [place] [address] HCO3 (Bld) [Moles/Vol] 24.9 mmol/L Normal 22.0-26.0 [facility] Comment on above: Performed By: #### P 8 #### [facility] [address] [place] [address] Hematocrit (Bld) [Volume fraction] 29 %PCV Low 38-51 [facility] Comment on above: Performed By: #### P 8 #### [facility] [address] [place] [address] Hemoglobin (Bld) [Mass/Vol] 9.9 g/dL Low 12.0-17. 0 [facility] Comment on above: Performed By: #### P 8 #### [facility] [address] [place] [address] Ionized Calcium (iSTAT) 4.5 mg/dL Normal 4.5-5.3 [facility] Comment on above: Performed By: #### P 8 #### [facility] [address] [place], [place] [address] O2% Sat. (i-STAT) 100.0 % High 95.0-98.0 [facility] Comment on above: Performed By: #### P 8 #### [facility] [address] [place] [address] Oxygen (Bld) [Partial pressure] 288.0 mm Hg High 80.0-105.0 [facility] Comment on above: Performed By: #### P 8 #### [place] [address] PCO2 (i-STAT) 41.7 mm Hg Normal 35.0-45.0 [facility] Comment on above: Performed By: #### P 8 #### [place] [address] pH (Bld) 7.384 [pH] Normal 7.350-7.450 [facility] Comment on above: Performed By: #### P 8 #### [place] [address] Potassium [Moles/Vol] 3.5 mmol/L Normal 3.5-4.9 [facility] Comment on above: Performed By: #### P 8 #### [place] [address] Sodium [Moles/Vol] 141 mmol/L Normal 138-146 [facility] Comment on above: Performed By: #### P 8 #### [address] [address] Total CO2 (i-STAT) 26 mmol/L Normal 23-27 [facility] Comment on above: Performed By: #### P 8 #### [address] [address] CG8 Venous Panel (i-STAT)on 05-30-2018 Base Excess (i-STAT) -3.0 mmol/L Normal -2.0 to 3.0 [facility] Comment on above: Performed By: #### P 8 #### [facility] [address] [place] [address] Glucose [Mass/Vol] 109 mg/dL High 70-99 [facility] Comment on above: Performed By: #### P 8 #### [facility] [address] [place] [address] HCO3 (Bld) [Moles/Vol] 22.5 mmol/L Low 23.0-28.0 [facility] Comment on above: Performed By: #### P 8 #### [facility] [address] [place] [address] Hematocrit (Bld) [Volume fraction] 25 %PCV Low 38-51 [facility] Comment on above: Performed By: #### P 8 #### [facility] [address] [place] [address] Hemoglobin (Bld) [Mass/Vol] 8.5 g/dL Low 12.0-17. 0 [facility] Comment on above: Performed By: #### P 8 #### [facility] [address] [place] [address] Ionized Calcium (iSTAT) 4.1 mg/dL Low 4.5-5.3 [facility] Comment on above: Performed By: #### P 8 #### [facility] [address] [place] [address] O2% Sat. (i-STAT) 84.0 % Normal 35.0-85.0 [facility] Comment on above: Performed By: #### P 8 #### [facility] [address] [place] [address] Oxygen (Bld) [Partial pressure] 50.0 mm Hg Normal 20.0-50.0 [facility] Comment on above: Performed By: #### P 8 #### [facility] [address] [place] [address] PCO2 (i-STAT) 39.3 mm Hg Low 41.0-51.0 [facility] Comment on above: Performed By: #### P 8 #### [facility] [address] [place], [place] [address] pH (Bld) 7.365 [pH] Normal 7.310-7.410 [facility] Comment on above: Performed By: #### P 8 #### [facility] [address] [place], [place] [address] Potassium [Moles/Vol] 3.1 mmol/L Low 3.5-4.9 [facility] Comment on above: Performed By: #### P 8 #### [facility] [address] [place], [place] [address] Sodium [Moles/Vol] 139 mmol/L Normal 138-146 [facility] Comment on above: Performed By: #### P 8 #### [facility] [address] [place] [id number] Total CO2 (i-STAT) 24 mmol/L Normal 24-29 [facility] Comment on above: Performed By: #### P 8 #### [facility] [address] [place] [id number] CHEST 1 VIEWon 05-30-2018 CHEST 1 VIEW Performed at [facility] APPROVED BY: MELI ROSAS MD EXAM TITLE: [...] Right internal jugular central venous sheath with Hamden-Chaya catheter, catheter tip overlies the main pulmonary [...] change versus stability, if clinical concern. Normal [facility] Hemogramon 05-30-2018 Erythrocyte distribution width (RBC) [Ratio] 13.0 % Normal 11.7-14.4 [facility] Comment on above: Performed By: #### P 8 #### [facility] [address] [place] [address] Hematocrit (Bld) [Volume fraction] 31.0 % Low 34.1-44.9 [facility] Comment on above: Performed By: #### P 8 #### [facility] [address] [place] [address] Hemoglobin (Bld) [Mass/Vol] 10.0 g/dL Low 11.2-15. 7 [facility] Comment on above: Performed By: #### P 8 #### [facility] [address] [place] [address] MCH (RBC) [Entitic mass] 29.3 pg Normal 25.6-32.2 [facility] Comment on above: Performed By: #### P 8 #### [facility] [address] [place] [address] MCHC (RBC) [Mass/Vol] 32.3 % Normal 31.6-34.8 [facility] Comment on above: Performed By: #### P 8 #### [facility] [address] [place] [id number] MCV (RBC) [Entitic vol] 90.9 fL Normal 79.4-94.8 [facility] Comment on above: Performed By: #### P 8 #### [facility] [address] [place] [id number] Platelet mean volume (Bld) [Entitic vol] 11.7 fL Normal 9.4-12.3 [facility] Comment on above: Performed By: #### P 8 #### [facility] [address] [place], [place] [address] Platelets (Bld) [#/Vol] 142 thou/cmm Low 182-369 [facility] Comment on above: Performed By: #### P 8 #### [facility] [address] [place], [place] [address] RBC (Bld) [#/Vol] 3.41 mil/cmm Low 3.93-5.22 [facility] Comment on above: Performed By: #### P 8 #### [facility] [address] [place] [address] RDW SD 42.7 fl Normal 36.4-46.3 [facility] Comment on above: Performed By: #### P 8 #### [facility] [address] [place] [address] WBC (Bld) [#/Vol] 14.08 thou/cmm High 3.98-10.04 [facility] Comment on above: Performed By: #### P 8 #### [facility] [address] [place] [address] Erythrocyte distribution width (RBC) [Ratio] 12.9 % Normal 11.7-14.4 [facility] Comment on above: Performed By: #### P 8 #### [facility] [address] [place] [address] Hematocrit (Bld) [Volume fraction] 37.7 % Normal 34.1-44.9 [facility] Comment on above: Performed By: #### P 8 #### [facility] [address] [place], [place] [address] Hemoglobin (Bld) [Mass/Vol] 12.2 g/dL Normal 11.2-15. 7 [facility] Comment on above: Performed By: #### P 8 #### [facility] [address] [place] [address] MCH (RBC) [Entitic mass] 29.2 pg Normal 25.6-32.2 [facility] Comment on above: Performed By: #### P 8 #### [facility] [address] [place] [address] MCHC (RBC) [Mass/Vol] 32.4 % Normal 31.6-34.8 [facility] Comment on above: Performed By: #### P 8 #### [facility] [address] [place] [address] MCV (RBC) [Entitic vol] 90.2 fL Normal 79.4-94.8 [facility] Comment on above: Performed By: #### P 8 #### [facility] [address] [place] [address] Platelet mean volume (Bld) [Entitic vol] 11.8 fL Normal 9.4-12.3 [facility] Comment on above: Performed By: #### P 8 #### [facility] [address] [place] [address] Platelets (Bld) [#/Vol] 264 thou/cmm Normal 182-369 [facility] Comment on above: Performed By: #### P 8 #### [facility] [address] [place] [address] RBC (Bld) [#/Vol] 4.18 mil/cmm Normal 3.93-5.22 [facility] Comment on above: Performed By: #### P 8 #### [facility] [address] [place] [address] RDW SD 42.8 fl Normal 36.4-46.3 [facility] Comment on above: Performed By: #### P 8 #### [facility] [address] [place] [address] WBC (Bld) [#/Vol] 8.47 thou/cmm Normal 3.98-10.04 [facility] Comment on above: Performed By: #### P 8 #### [facility] [address] [place] [address] Magnesium Bloodon 05-30-2018 Magnesium [Mass/Vol] 1.8 mg/dL Normal 1.6-2.6 [facility] Comment on above: Performed By: #### G FR #### [facility] [address] [place] [address] Protimeon 05-30-2018 INR Coag (PPP) [Relative time] 1.19 {INR} Normal 0.90-1.30 [facility] Comment on above: Result Comment: Note : Reference Range Change Vitamin K Antagonist (VKA) Therapeutic Range: INR 2 to 3 (Target INR of 2.5) Note: For patients treated with VKA drugs, such as warfarin, the [place] 2012 Guideline recommends [...] to 3.5 target INR of 3). Vidhya RAGLAND, et al. Chest 2012; 141:7S-47S Deng RA, et al. JAC 2017; 70: 252-289 Performed By: #### G FR #### [facility] [address] [place] [address] PT Coag (PPP) [Time] 12.2 s Normal 9.7-13.0 [facility] Comment on above: Performed By: #### G FR #### [facility] [address] [place] [phone] Activated PTTon 05-29-2018 aPTT Coag (Bld) [Time] 52.8 s High 23.0-32.4 [facility] Comment on above: Result Comment: Note : [...] laboratory APTT reagent in use throughout the [facility]. Performed By: #### E RTRP #### [facility] [address] [place], [place] [address] aPTT Coag (Bld) [Time] 55.5 s High 23.0-32.4 [facility] Comment on above: Result Comment: Note : [...] laboratory APTT reagent in use throughout the [facility]. Performed By: #### E RTRP #### [address] [address] aPTT Coag (Bld) [Time] 41.0 s High 23.0-32.4 [facility] Comment on above: Result Comment: Note : [...] laboratory APTT reagent in use throughout the [facility]. Performed By: #### E RTRP #### [facility] [address] [place], [place] [address] Basic Panelon 05-29-2018 Urea nitrogen [Mass/Vol] 17 mg/dL Normal 7-18 [facility] Comment on above: Performed By: #### E RTRP #### [address] [address] Creatinine [Mass/Vol] 0.66 mg/dL Normal 0.51-0.95 [facility] Comment on above: Performed By: #### E RTRP #### [facility] [address] [place], [place] [address] Anion gap [Moles/Vol] 11 mmol/L Normal 8-16 [facility] Comment on above: Performed By: #### E RTRP #### [facility] [address] [place], [place] [address] CO2 [Moles/Vol] 26 mmol/L Normal 21-32 [facility] Comment on above: Performed By: #### E RTRP #### [facility] [address] [place], [place] [address] Glucose [Mass/Vol] 191 mg/dL High 70-99 [facility] Comment on above: Performed By: #### E RTRP #### [facility] [address] [place], [place] [address] Calcium [Mass/Vol] 8.9 mg/dL Normal 8.5-10.1 [facility] Comment on above: Performed By: #### E RTRP #### [facility] [address] [place], [place] [address] Chloride [Moles/Vol] 106 mmol/L Normal 98-107 [facility] Comment on above: Performed By: #### E RTRP #### [facility] [address] [place], [place] [address] Potassium [Moles/Vol] 3.7 mmol/L Normal 3.5-5.1 [facility] Comment on above: Performed By: #### E RTRP #### [facility] [address] [place], [place] [address] Sodium [Moles/Vol] 139 mmol/L Normal 136-145 [facility] Comment on above: Performed By: #### E RTRP #### [facility] [address] [place], [place] [address] CT ANGIO NECKon 05-29-2018 CT ANGIO NECK Performed at [facility] APPROVED BY: Niels Early MD AORTIC ARCH, CAROTID BIFURCATIONS, AND ALTURAS OF F[place] CTA CT angiographic images were obtained in the region of the aortic arch, carotid bifurcations, agdaagux of [place], and proximal intracranial vasculature following [...] internal carotid artery, vertebral arteries, basilar artery, agdaagux of [place], or proximal intracranial vasculature. The [...] measure approximately 20-30% as described above. Normal [facility] CT CERVICAL SPINE W/O CONTRA STon 05-29-2018 CT CERVICAL SPINE W/O CONTRAST Performed at [facility] APPROVED BY: Niels Early MD CERVICAL SPINE [...] IMPRESSION: Degenerative change as described above. Normal [facility] CTA HEAD WO/W IV CONon 05-29 CTA HEAD WO/W IV CON Performed at [facility] APPROVED BY: Niels Early MD AORTIC ARCH, CAROTID BIFURCATIONS, AND ALTURAS OF [place] CTA CT angiographic images were obtained in the region of the aortic arch, carotid bifurcations, agdaagux of [place], and proximal intracranial vasculature following [...] internal carotid artery, vertebral arteries, basilar artery, agdaagux of [place], or proximal intracranial vasculature. The [...] measure approximately 20-30% as described above. Normal [facility] Hemogramon 05-29-2018 Erythrocyte distribution width (RBC) [Ratio] 12.8 % Normal 11.7-14.4 [facility] Comment on above: Performed By: #### E RTRP #### [facility] [address] [place] [address] Hematocrit (Bld) [Volume fraction] 36.8 % Normal 34.1-44.9 [facility] Comment on above: Performed By: #### E RTRP #### [facility] [address] [place] [address] Hemoglobin (Bld) [Mass/Vol] 11.8 g/dL Normal 11.2-15. 7 [facility] Comment on above: Performed By: #### E RTRP #### [facility] [address] [place] [address] MCH (RBC) [Entitic mass] 29.1 pg Normal 25.6-32.2 [facility] Comment on above: Performed By: #### E RTRP #### [facility] [address] [place] [address] MCHC (RBC) [Mass/Vol] 32.1 % Normal 31.6-34.8 [facility] Comment on above: Performed By: #### E RTRP #### [facility] [address] [place] [address] MCV (RBC) [Entitic vol] 90.6 fL Normal 79.4-94.8 [facility] Comment on above: Performed By: #### E RTRP #### [facility] [address] [place] [address] Platelet mean volume (Bld) [Entitic vol] 11.8 fL Normal 9.4-12.3 [facility] Comment on above: Performed By: #### E RTRP #### [facility] [address] [place] [address] Platelets (Bld) [#/Vol] 264 thou/cmm Normal 182-369 [facility] Comment on above: Performed By: #### E RTRP #### [facility] [address] [place] [address] RBC (Bld) [#/Vol] 4.06 mil/cmm Normal 3.93-5.22 [facility] Comment on above: Performed By: #### E RTRP #### [facility] [address] [place] [address] RDW SD 43.0 fl Normal 36.4-46.3 [facility] Comment on above: Performed By: #### E RTRP #### [place] [address] WBC (Bld) [#/Vol] 8.66 thou/cmm Normal 3.98-10.04 [facility] Comment on above: Performed By: #### E RTRP #### [place] [address] Troponin Ion 05-29-2018 Troponin I.cardiac [Mass/Vol] 2.340 ng/mL Critically high 0.015-0.045 [facility] Comment on above: Performed By: #### E RTRP #### [place] [address] Urinalysis Routineon 018 Bacteria LM.HPF (Urine sed) [#/Area] NONE Normal None [facility] Comment on above: Performed By: #### P 8 #### [place] [address] Ep Cells Urine 2.9 /hpf Normal 0.0-5.0 [facility] Comment on above: Performed By: #### P 8 #### [place] [address] Hyaline Cast 0.0 /lpf Normal 0.0-1.0 [facility] Comment on above: Performed By: #### P 8 #### [place] [address] RBC LM.HPF (Urine sed) [#/Area] 1.8 /[HPF] Normal 0.0-5.0 [facility] Comment on above: Performed By: #### P 8 #### [place] [address] WBC LM.HPF (Urine sed) [#/Area] 7.8 /[HPF] High 0.0-5.0 [facility] Comment on above: Performed By: #### P 8 #### [facility] [address] [place] [address] Appearance (U) CLEAR Normal [facility] Comment on above: Performed By: #### P 8 #### [facility] [address] [place] [address] Bilirubin (U) [Mass/Vol] Negative Normal Negative [facility] Comment on above: Performed By: #### P 8 #### [facility] [address] [place] [address] Color (U) YELLOW Normal [facility] Comment on above: Performed By: #### P 8 #### [facility] [address] [place] [address] Glucose Ql (U) Negative Normal Negative [facility] Comment on above: Performed By: #### P 8 #### [facility] [address] [place] [address] Hemoglobin,Urine Negative Normal Negative [facility] Comment on above: Performed By: #### P 8 #### [facility] [address] [place] [address] Ketone Urine Negative Normal Negative [facility] Comment on above: Performed By: #### P 8 #### [facility] [address] [place] [address] Leukocytes Esterase SMALL Abnormal Negative [facility] Comment on above: Performed By: #### P 8 #### [facility] [address] [place] [address] Nitrites Urine Negative Normal Negative [facility] Comment on above: Performed By: #### P 8 #### [facility] [address] [place] [address] pH (U) 6.5 [pH] Normal 5.0-8.0 [facility] Comment on above: Performed By: #### P 8 #### [facility] [address] [place], [place] [address] Protein (U) [Mass/Vol] Negative Normal Negative [facility] Comment on above: Performed By: #### P 8 #### [facility] [address] [place] [address] Specific [place], Ur 1.037 Abnormal 1.005-1.030 [facility] Comment on above: Performed By: #### P 8 #### [facility] [address] [place] [address] Urobilinogen,Ur 0.2 EU/dL Normal 0.0-1.0 [facility] Comment on above: Performed By: #### P 8 #### [facility] [address] [place] [address] ABO/Rh Confirmationon 2017 ABO group Nom (Bld) A Normal [facility] Comment on above: Performed By: #### E RTRP #### [facility] [address] [place] [address] RH Type Positive Normal [facility] Comment on above: Performed By: #### E RTRP #### [place] [address] Activated PTTon 05-28-2018 aPTT Coag (Bld) [Time] 28.2 s Normal 23.0-32.4 [facility] Comment on above: Result Comment: Note : [...] laboratory APTT reagent in use throughout the [facility]. Performed By: #### C BCD1 #### [facility] [address] [place] [address] Basic Panelon 05-28-2018 Creatinine [Mass/Vol] 0.72 mg/dL Normal 0.51-0.95 [facility] Comment on above: Performed By: #### P 8 #### [facility] [address] [place] [address] Anion gap [Moles/Vol] 14 mmol/L Normal 8-16 [facility] Comment on above: Performed By: #### P 8 #### [facility] [address] [place], [place] [address] Calcium [Mass/Vol] 8.4 mg/dL Low 8.5-10.1 [facility] Comment on above: Performed By: #### P 8 #### [facility] [address] [place], [place] [address] CO2 [Moles/Vol] 24 mmol/L Normal 21-32 [facility] Comment on above: Performed By: #### P 8 #### [facility] [address] [place], [place] [address] Glucose [Mass/Vol] 344 mg/dL High 70-99 [facility] Comment on above: Performed By: #### P 8 #### [facility] [address] [place], [place] [address] Urea nitrogen [Mass/Vol] 21 mg/dL High 7-18 [facility] Comment on above: Performed By: #### P 8 #### [facility] [address] [place], [place] [address] Chloride [Moles/Vol] 105 mmol/L Normal 98-107 [facility] Comment on above: Performed By: #### P 8 #### [facility] [address] [place], [place] [address] Potassium [Moles/Vol] 4.3 mmol/L Normal 3.5-5.1 [facility] Comment on above: Performed By: #### P 8 #### [facility] [address] [place], [place] [address] Sodium [Moles/Vol] 139 mmol/L Normal 136-145 [facility] Comment on above: Performed By: #### P 8 #### [facility] [address] [place], [place] [address] CHEST 2 VIEWSon 05-28-2018 CHEST 2 VIEWS Performed at [facility] APPROVED BY: PAUL MORA MD EXAMINATION: CHEST RADIOGRAPH (2 VIEW FRONTAL & LATERAL) CLINICAL HISTORY: Chest pain MQ: [id number] Comparison: 11/09/2013 RESULT: Lines, tubes, and devices: None. Lungs and pleura: No consolidation. No lung mass. No pleural effusion. Cardiomediastinal silhouette: Normal cardiomediastinal silhouette. Other: No bony abnormalities. IMPRESSION: No acute radiographic abnormality. Normal [facility] Troponin Ion 05-28-2018 Troponin I.cardiac [Mass/Vol] 0.844 ng/mL High 0.015-0.045 [facility] Comment on above: Performed By: #### E RTRP #### [facility] [address] [place] [address] Hemogramon 05-28-2018 Erythrocyte distribution width (RBC) [Ratio] 12.9 % Normal 11.7-14.4 [facility] Comment on above: Performed By: #### C BCD1 #### [place] [address] Hematocrit (Bld) [Volume fraction] 37.4 % Normal 34.1-44.9 [facility] Comment on above: Performed By: #### C BCD1 #### [place] [address] Hemoglobin (Bld) [Mass/Vol] 11.7 g/dL Normal 11.2-15. 7 [facility] Comment on above: Performed By: #### C BCD1 #### [place] [address] MCH (RBC) [Entitic mass] 28.5 pg Normal 25.6-32.2 [facility] Comment on above: Performed By: #### C BCD1 #### [place] [address] MCHC (RBC) [Mass/Vol] 31.3 % Low 31.6-34.8 [facility] Comment on above: Performed By: #### C BCD1 #### [place] [address] MCV (RBC) [Entitic vol] 91.2 fL Normal 79.4-94.8 [facility] Comment on above: Performed By: #### C BCD1 #### [place] [address] Platelet mean volume (Bld) [Entitic vol] 11.8 fL Normal 9.4-12.3 [facility] Comment on above: Performed By: #### C BCD1 #### [facility] [address] [place] [address] Platelets (Bld) [#/Vol] 247 thou/cmm Normal 182-369 [facility] Comment on above: Performed By: #### C BCD1 #### [facility] [address] [place] [address] RBC (Bld) [#/Vol] 4.10 mil/cmm Normal 3.93-5.22 [facility] Comment on above: Performed By: #### C BCD1 #### [place] [address] RDW SD 43.3 fl Normal 36.4-46.3 [facility] Comment on above: Performed By: #### C BCD1 #### [place] [address] WBC (Bld) [#/Vol] 8.52 thou/cmm Normal 3.98-10.04 [facility] Comment on above: Performed By: #### C BCD1 #### [place] [address] Hemogram/Diffon 05-28-2018 Abs Immature Grans 0.02 thou/cmm Normal 0.00-0.05 [facility] Comment on above: Performed By: #### C BCD1 #### [place] [address] Abs. Baso 0.05 thou/cmm Normal 0.01-0.08 [facility] Comment on above: Performed By: #### C BCD1 #### [place] [address] Abs. Jerome 0.57 thou/cmm Normal 0.27-0.70 [facility] Comment on above: Performed By: #### C BCD1 #### [place] [address] Abs. Neut (ANC) 6.31 thou/cmm High 1.56-6.13 [facility] Comment on above: Performed By: #### C BCD1 #### [facility] [address] [place], [place] [address] Basophils/100 WBC (Bld) 0.6 % Normal [facility] Comment on above: Performed By: #### C BCD1 #### [facility] [address] [place], [place] [address] Eosinophils (Bld) [#/Vol] 0.14 thou/cmm Normal 0.00-0. 31 [facility] Comment on above: Performed By: #### C BCD1 #### [facility] [address] [place], [place] [address] Eosinophils/100 WBC (Bld) 1.5 % Normal [facility] Comment on above: Performed By: #### C BCD1 #### [facility] [address] [place] [address] Erythrocyte distribution width (RBC) [Ratio] 13.0 % Normal 11.7-14.4 [facility] Comment on above: Performed By: #### C BCD1 #### [facility] [address] [place], [place] [address] Hematocrit (Bld) [Volume fraction] 39.4 % Normal 34.1-44.9 [facility] Comment on above: Performed By: #### C BCD1 #### [facility] [address] [place], [place] [address] Hemoglobin (Bld) [Mass/Vol] 12.4 g/dL Normal 11.2-15. 7 [facility] Comment on above: Performed By: #### C BCD1 #### [facility] [address] [place] [address] Immature Grans 0.20 % Normal [facility] Comment on above: Performed By: #### C BCD1 #### [facility] [address] [place], [place] [address] Lymphocytes (Bld) [#/Vol] 1.98 thou/cmm Normal 1.18-3. 74 [facility] Comment on above: Performed By: #### C BCD1 #### [facility] [address] [place], [place] [address] Lymphocytes/100 WBC (Bld) 21.8 % Normal [facility] Comment on above: Performed By: #### C BCD1 #### [facility] [address] [place], [place] [address] MCH (RBC) [Entitic mass] 28.8 pg Normal 25.6-32.2 [facility] Comment on above: Performed By: #### C BCD1 #### [facility] [address] [place], [place] [address] MCHC (RBC) [Mass/Vol] 31.5 % Low 31.6-34.8 [facility] Comment on above: Performed By: #### C BCD1 #### [facility] [address] [place], [place] [address] MCV (RBC) [Entitic vol] 91.6 fL Normal 79.4-94.8 [facility] Comment on above: Performed By: #### C BCD1 #### [facility] [address] [place], [place] [address] Monocytes/100 WBC (Bld) 6.3 % Normal [facility] Comment on above: Performed By: #### C BCD1 #### [facility] [address] [place], [place] [address] Platelet mean volume (Bld) [Entitic vol] 11.8 fL Normal 9.4-12.3 [facility] Comment on above: Performed By: #### C BCD1 #### [facility] [address] [place], [place] [address] Platelets (Bld) [#/Vol] 256 thou/cmm Normal 182-369 [facility] Comment on above: Performed By: #### C BCD1 #### [facility] [address] [place], [place] [address] RBC (Bld) [#/Vol] 4.30 mil/cmm Normal 3.93-5.22 [facility] Comment on above: Performed By: #### C BCD1 #### [facility] [address] [place] [address] RDW SD 43.4 fl Normal 36.4-46.3 [facility] Comment on above: Performed By: #### C BCD1 #### [facility] [address] [place], [place] [address] Seg Neutrophil 69.6 % Normal [facility] Comment on above: Performed By: #### C BCD1 #### [facility] [address] [place], [place] [address] WBC (Bld) [#/Vol] 9.07 thou/cmm Normal 3.98-10.04 [facility] Comment on above: Performed By: #### C BCD1 #### [facility] [address] [place] [address] Hepatic Panelon 05-28-2018 ALP [Catalytic activity/Vol] 74 U/L Normal 46-116 [facility] Comment on above: Performed By: #### H EPAP #### [facility] [address] [place] [address] Protein [Mass/Vol] 6.9 g/dL Normal 6.4-8.2 [facility] Comment on above: Performed By: #### H EPAP #### [facility] [address] [place] [address] Bilirubin [Mass/Vol] 0.2 mg/dL Normal 0.2-1.0 [facility] Comment on above: Performed By: #### H EPAP #### [facility] [address] [place] [address] ALT [Catalytic activity/Vol] 25 U/L Normal 12-78 [facility] Comment on above: Performed By: #### H EPAP #### [facility] [address] [place] [address] AST [Catalytic activity/Vol] 18 U/L Normal 9-37 [facility] Comment on above: Performed By: #### H EPAP #### [facility] [address] [place] [address] Bilirubin [Mass/Vol] 0.08 mg/dL Normal 0.00-0.20 [facility] Comment on above: Performed By: #### H EPAP #### [facility] [address] [place] [address] Albumin [Mass/Vol] 3.3 g/dL Low 3.4-5.0 [facility] Comment on above: Performed By: #### H EPAP #### [facility] [address] [place] [address] Hgb A1con 05-28-2018 HbA1c (Bld) [Mass fraction] 192 mg/dl Normal [facility] Comment on above: Performed By: #### C BCD1 #### [place] [address] HbA1c (Bld) [Mass fraction] 8.3 % High 4.2-6.3 [facility] Comment on above: Result Comment: Meth od is National Glycohemoglobin Standardization Program (NGSP) compliant. Performed By: #### C BCD1 #### [place] [address] Lipase Bloodon 05-28-2018 Lipase Blood 148 U/L Normal 73-393 [facility] Comment on above: Performed By: #### L IP #### [place] [address] Lipid Profileon 05-28-2018 Cholesterol in LDL [Mass/Vol] 141 mg/dL Normal [facility] Comment on above: Result Comment: No C AD and with fewer than 2 CAD risk factors <160 mg/dL No CAD but with 2 or more CAD risk factors <130 mg/dL Definite CAD or other atherosclerotic disease <100 mg/dL Performed By: #### C BCD1 #### [place] [address] Cholesterol in LDL/Cholesterol in HDL [Mass ratio] 4.4 High 0.6-3.6 [facility] Comment on above: Result Comment: LDL, VLDL,LDL/HDL, Invalid if Triglyceride >400 Performed By: #### C BCD1 #### [place] [address] Cholesterol in VLDL [Mass/Vol] 32 mg/dL Normal <50 Desired [facility] Comment on above: Performed By: #### C BCD1 #### [place] [address] Triglyceride [Mass/Vol] 161 mg/dL High 0-149 A [facility] Comment on above: Result Comment: < 20 0 Desirable Result invalid if not a fasting specimen. Performed By: #### C BCD1 #### [facility] [address] [place] [address] Cholesterol in HDL [Mass/Vol] 32 mg/dL Normal >40 [facility] Comment on above: Performed By: #### C BCD1 #### [facility] [address] [place] [address] Cholesterol.total/Cholester ol in HDL [Mass ratio] 6.4 {ratio} High 1.8-5.3 [facility] Comment on above: Performed By: #### C BCD1 #### [facility] [address] [place] [address] Cholesterol [Mass/Vol] 205 mg/dL High 0-199 [facility] Comment on above: Result Comment: <200 Desirable 200-240 Borderline >240 High Performed By: #### C BCD1 #### [facility] [address] [place] [address] MRSA Screenon 05-28-2018 MRSA DNA DARLIN+probe Ql (Unsp spec) Test performed at [facility] No MRSA detected. Normal [facility] Comment on above: Performed By: #### P 8 #### [facility] [address] [place] [address] Magnesium Bloodon 05-28-2018 Magnesium [Mass/Vol] 2.2 mg/dL Normal 1.6-2.6 [facility] Comment on above: Performed By: #### C BCD1 #### [facility] [address] [place] [address] Protimeon 05-28-2018 INR Coag (PPP) [Relative time] 1.02 {INR} Normal 0.90-1.30 [facility] Comment on above: Result Comment: Note : Reference Range Change Vitamin K Antagonist (VKA) Therapeutic Range: INR 2 to 3 (Target INR of 2.5) Note: For patients treated with VKA drugs, such as warfarin, the [place] [employer] 2012 Guideline recommends [...] GH, et al. Chest 2012; 141:7S-47S Deng RA, et al. JACC 2017; 70: 252-289 Performed By: #### C BCD1 #### [place] [address] PT Coag (PPP) [Time] 10.6 s Normal 9.7-13.0 [facility] Comment on above: Performed By: #### C BCD1 #### [place] [address] RBC Productson 05-28-2018 Xmatch Unit 1 see below Normal [facility] Comment on above: Result Comment: Comp atible Performed By: #### E RTRP #### [place] [address] Xmatch Unit 2 see below Normal [facility] Comment on above: Result Comment: Comp atible Performed By: #### E RTRP #### [place] [address] Troponin Ion 05-28-2018 Troponin I.cardiac [Mass/Vol] 4.210 ng/mL Critically high 0.015-0.045 [facility] Comment on above: Performed By: #### C BCD1 #### [place] [address] Troponin I.cardiac [Mass/Vol] 4.900 ng/mL Critically high 0.015-0.045 [facility] Comment on above: Performed By: #### C BCD1 #### [place] [address] Troponin I.cardiac [Mass/Vol] 3.790 ng/mL Critically high 0.015-0.045 [facility] Comment on above: Performed By: #### C BCD1 #### [place] [address] Troponin I.cardiac [Mass/Vol] 3.830 ng/mL Critically high 0.015-0.045 [facility] Comment on above: Performed By: #### T ROP #### [place] [address] Type and Screenon 05-28-2018 ABO group Nom (Bld) A Normal [facility] Comment on above: Performed By: #### C BCD1 #### [place] [address] Comment See Below Normal [facility] Comment on above: Result Comment: Scre en &/or Xmatch expires in 3 days at 12 midnight. Redraw patient at that time. Performed By: #### C BCD1 #### [place] [address] RH Type Positive Normal [facility] Comment on above: Performed By: #### C BCD1 #### [place] [address] Urinalysis Routineon 018 RBC LM.HPF (Urine sed) [#/Area] 0.0-3 Normal 0.0-5.0 [facility] Comment on above: Performed By: #### U RIN2 #### [place] [address] Yeast Urine NONE Normal None [facility] Comment on above: Performed By: #### U RIN2 #### [place] [address] Bacteria LM.HPF (Urine sed) [#/Area] NONE Normal None [facility] Comment on above: Performed By: #### U RIN2 #### [place] [address] Ep Cells Urine 9.6 /hpf High 0.0-5.0 [facility] Comment on above: Performed By: #### U RIN2 #### [facility] [address] [place] [address] Hyaline Cast 1.5 /lpf High 0.0-1.0 [facility] Comment on above: Performed By: #### U RIN2 #### [facility] [address] [place] [address] WBC LM.HPF (Urine sed) [#/Area] 9.3 /[HPF] High 0.0-5.0 [facility] Comment on above: Performed By: #### U RIN2 #### [facility] [address] [place] [address] Appearance (U) CLOUDY Normal [facility] Comment on above: Performed By: #### U RIN2 #### [facility] [address] [place] [address] Bilirubin (U) [Mass/Vol] Negative Normal Negative [facility] Comment on above: Performed By: #### U RIN2 #### [facility] [address] [place] [address] Color (U) YELLOW Normal [facility] Comment on above: Performed By: #### U RIN2 #### [facility] [address] [place] [address] Glucose Ql (U) >=1000 Abnormal Negative [facility] Comment on above: Performed By: #### U RIN2 #### [place] [address] Hemoglobin,Urine Negative Normal Negative [facility] Comment on above: Performed By: #### U RIN2 #### [facility] [address] [place] [address] Ketone Urine Negative Normal Negative [facility] Comment on above: Performed By: #### U RIN2 #### [facility] [address] [place] [address] Leukocytes Esterase Negative Normal Negative [facility] Comment on above: Performed By: #### U RIN2 #### [place] [address] Nitrites Urine Negative Normal Negative [facility] Comment on above: Performed By: #### U RIN2 #### [facility] [address] [place], [place] [address] pH (U) 6.5 [pH] Normal 5.0-8.0 [facility] Comment on above: Performed By: #### U RIN2 #### [facility] [address] [place], [place] [address] Protein (U) [Mass/Vol] Negative Normal Negative [facility] Comment on above: Performed By: #### U RIN2 #### [facility] [address] [place], [place] [address] Specific [place], Ur 1.037 Abnormal 1.005-1.030 [facility] Comment on above: Performed By: #### U RIN2 #### [facility] [address] [place], [place] [address] Urobilinogen,Ur 0.2 EU/dL Normal 0.0-1.0 [facility] Comment on above: Performed By: #### U RIN2 #### [facility] [address] [place], [place] [address] Vital Signs Date Time Vital Sign Value Performing Clinician Facility 01-14-2025 11:58-0400 Body height 149.86 cm Ximena Sylvester FAMILY COUNSELOR-C Work Phone: [facility] 01-14-2025 11:58-0400 Body mass index (BMI) [Ratio] 34.3 kg/m2 Ximena Sylvester FAMILY COUNSELOR-C Work Phone: [facility] 01-14-2025 11:58-0400 Body weight 77.11 kg Ximena Sylvester FAMILY COUNSELOR-C Work Phone: [facility] 01-14-2025 11:58-0400 Diastolic blood pressure 81 mm[Hg] Ximena Sylvester FAMILY COUNSELOR-C Work Phone: [facility] 01-14-2025 11:58-0400 Heart rate 74 /min Ximena Sylvester FAMILY COUNSELOR-C Work Phone: [facility] 01-14-2025 11:58-0400 Respiratory rate 16 /min Ximena Sylvester FAMILY COUNSELOR-C Work Phone: [facility] 01-14-2025 11:58-0400 Systolic blood pressure 147 mm[Hg] Ximena Omero FAMILY COUNSELOR-C Work Phone: [facility] 12-31-2024 20:36-0400 Body temperature 98 [degF] Ximena Omero FAMILY COUNSELOR-C Work Phone: [facility] 12-31-2024 20:36-0400 Diastolic blood pressure 63 mm[Hg] Ximena Omero FAMILY COUNSELOR-C Work Phone: [facility] 12-31-2024 20:36-0400 Heart rate 63 /min Ximena Omero FAMILY COUNSELOR-C Work Phone: [facility] 12-31-2024 20:36-0400 Respiratory rate 18 /min Ximena Omero FAMILY COUNSELOR-C Work Phone: [facility] 12-31-2024 20:36-0400 SaO2% (BldA) [Mass fraction] 99 % Ximena Omero FAMILY COUNSELOR-C Work Phone: [facility] 12-31-2024 20:36-0400 Systolic blood pressure 170 mm[Hg] Ximena Omero FAMILY COUNSELOR-C Work Phone: [facility] 12-31-2024 16:03-0400 Body mass index (BMI) [Ratio] 35.9 kg/m2 Ximena Omero FAMILY COUNSELOR-C Work Phone: [facility] 12-31-2024 16:03-0400 Body weight 80.6 kg Ximena Omero FAMILY COUNSELOR-C Work Phone: [facility] 12-31-2024 15:51-0400 Body height 149.86 cm Ximena Omero FAMILY COUNSELOR-C Work Phone: [facility] 12-10-2024 13:57-0400 Body height 149.86 cm Ximena Omero FAMILY COUNSELOR-C Work Phone: [facility] 12-10-2024 13:57-0400 Body mass index (BMI) [Ratio] 34.3 kg/m2 Ximena Omero FAMILY COUNSELOR-C Work Phone: [facility] 12-10-2024 13:57-0400 Body weight 77.11 kg Ximena Omero FAMILY COUNSELOR-C Work Phone: [facility] 12-10-2024 13:57-0400 Diastolic blood pressure 76 mm[Hg] Ximena Omero FAMILY COUNSELOR-C Work Phone: [facility] 12-10-2024 13:57-0400 Heart rate 88 /min Ximena Omero FAMILY COUNSELOR-C Work Phone: [facility] 12-10-2024 13:57-0400 Respiratory rate 16 /min Ximena Omero FAMILY COUNSELOR-C Work Phone: [facility] 12-10-2024 13:57-0400 Systolic blood pressure 123 mm[Hg] Ximena Omero FAMILY COUNSELOR-C Work Phone: [facility] 09-02-2024 13:42-0400 Body height 149.86 cm Ximena Omero FAMILY COUNSELOR-C Work Phone: [facility] 09-02-2024 13:42-0400 Body mass index (BMI) [Ratio] 36 kg/m2 Ximena Omero FAMILY COUNSELOR-C Work Phone: [facility] 09-02-2024 13:42-0400 Body weight 80.85 kg Ximena Omero FAMILY COUNSELOR-C Work Phone: [facility] 09-02-2024 13:42-0400 Diastolic blood pressure 67 mm[Hg] Ximena Omero FAMILY COUNSELOR-C Work Phone: [facility] 09-02-2024 13:42-0400 Heart rate 66 /min Ximena Omero FAMILY COUNSELOR-C Work Phone: [facility] 09-02-2024 13:42-0400 SaO2% (BldA) [Mass fraction] 94 % Ximena Omero FAMILY COUNSELOR-C Work Phone: [facility] 09-02-2024 13:42-0400 Systolic blood pressure 130 mm[Hg] Ximena Sylvester NP-C Work Phone: [facility] 08-09-2024 13:51-0500 Diastolic blood pressure 72 mm[Hg] Dr. Williams Starr DO Work Phone: [facility] 08-09-2024 13:51-0500 Heart rate 74 /min Dr. Williams Starr DO Work Phone: [facility] 08-09-2024 13:51-0500 Respiratory rate 18 /min Dr. Williams Starr DO Work Phone: [facility] 08-09-2024 13:51-0500 SaO2% (BldA) [Mass fraction] 98 % Dr. Williams Starr DO Work Phone: [facility] 08-09-2024 13:51-0500 Systolic blood pressure 154 mm[Hg] Dr. Williams Starr DO Work Phone: [facility] 07-02-2024 15:40-0500 Body mass index (BMI) [Ratio] 37.11 kg/m2 Mae Raya MD Work Phone: [facility] 07-02-2024 15:40-0500 Body weight 81.28 kg Mae Raya MD Work Phone: [facility] 07-02-2024 15:40-0500 Diastolic blood pressure 80 mm[Hg] Mae Raya MD Work Phone: [facility] 07-02-2024 15:40-0500 Systolic blood pressure 120 mm[Hg] Mae Raya MD Work Phone: [facility] 05-14-2024 15:18-0500 Body height 149.[address] Williams Starr DO Work Phone: [facility] 05-14-2024 15:18-0500 Body mass index (BMI) [Ratio] 35.3 kg/m2 Dr. Williams Starr DO Work Phone: [facility] 05-14-2024 15:18-0500 Body weight 79.[address] Williams Starr DO Work Phone: [facility] 04-23-2024 14:45-0500 Body mass index (BMI) [Ratio] 33.3 kg/m2 Dr. Williams Starr DO Work Phone: [facility] 04-23-2024 14:45-0500 Body weight 74.[address] Williams Starr DO Work Phone: [facility] 04-23-2024 14:45-0500 Diastolic blood pressure 74 mm[Hg] Dr. Williams Starr DO Work Phone: [facility] 04-23-2024 14:45-0500 Heart rate 67 /min Dr. Williams Starr DO Work Phone: [facility] 04-23-2024 14:45-0500 Respiratory rate 20 /min Dr. Williams Starr DO Work Phone: [facility] 04-23-2024 14:45-0500 SaO2% (BldA) [Mass fraction] 94 % Dr. Williams Starr DO Work Phone: [facility] 04-23-2024 14:45-0500 Systolic blood pressure 120 mm[Hg] Dr. Williams Starr DO Work Phone: [facility] 09-26-2023 14:54-0400 Body mass index (BMI) [Ratio] 35.87 kg/m2 Agustina Hirsch MD Work Phone: [facility] 09-26-2023 14:54-0400 Body weight 78.56 kg Agustina Hirsch MD Work Phone: [facility] 09-26-2023 14:54-0400 Diastolic blood pressure 64 mm[Hg] Agustina Hirsch MD Work Phone: [facility] 09-26-2023 14:54-0400 Systolic blood pressure 102 mm[Hg] Agustina Hirsch MD Work Phone: [facility] 04-12-2023 13:06-0500 Body height 149.[address] Taras Green Work Phone: [facility] 04-12-2023 13:06-0500 Body mass index (BMI) [Ratio] 34.9 kg/m2 Dr. Taras Green Work Phone: [facility] 04-12-2023 13:06-0500 Body weight 78.[address] Taras Green Work Phone: [facility] 04-12-2023 13:06-0500 Diastolic blood pressure 75 mm[Hg] Dr. Taras Green Work Phone: [facility] 04-12-2023 13:06-0500 Heart rate 65 /min Dr. Taras Green Work Phone: [facility] 04-12-2023 13:06-0500 Respiratory rate 20 /min Dr. Taras Green Work Phone: [facility] 04-12-2023 13:06-0500 SaO2% (BldA) [Mass fraction] 97 % Dr. Taras Green Work Phone: [facility] 04-12-2023 13:06-0500 Systolic blood pressure 144 mm[Hg] Dr. Taras Green Work Phone: [facility] 03-14-2023 09:50-0400 Body weight 77.56 kg Kanika Del Cid [employer] Work Phone: [facility] 03-14-2023 09:50-0400 Diastolic blood pressure 64 mm[Hg] Kanika Del Cid [employer] Work Phone: [facility] 03-14-2023 09:50-0400 Heart rate 62 /min Kanika Del Cid [employer] Work Phone: [facility] 03-14-2023 09:50-0400 Respiratory rate 17 /min Kanika Del Cid [employer] SERV[employer] Work Phone: [facility] 03-14-2023 09:50-0400 SaO2% (BldA) [Mass fraction] 95 % Kanikadee Del Cid [employer] SERV[employer] Work Phone: [facility] 03-14-2023 09:50-0400 Systolic blood pressure 112 mm[Hg] Kanika Del Cid [employer] SERV[employer] Work Phone: [facility] 02-21-2023 14:44-0400 Body weight 75.3 kg Gladys Baird MD Work Phone: [facility] 02-21-2023 14:44-0400 Diastolic blood pressure 80 mm[Hg] Gladys Baird MD Work Phone: [facility] 02-21-2023 14:44-0400 Heart rate 72 /min Gladys Baird MD Work Phone: [facility] 02-21-2023 14:44-0400 Respiratory rate 12 /min Gladys Baird MD Work Phone: [facility] 02-21-2023 14:44-0400 SaO2% (BldA) [Mass fraction] 98 % Gladys Baird MD Work Phone: [facility] 02-21-2023 14:44-0400 Systolic blood pressure 150 mm[Hg] Gladys Baird MD Work Phone: [facility] 02-21-2023 14:36-0400 Body height 148 cm Pulm Wstr Work Phone: [facility] 02-21-2023 14:36-0400 Body weight 75.3 kg Pulm Wstr Work Phone: [facility] 02-21-2023 14:36-0400 Heart rate 72 /min Pulm Wstr Work Phone: [facility] 02-21-2023 14:36-0400 Respiratory rate 12 /min Pulm Wstr Work Phone: [facility] 02-21-2023 14:36-0400 SaO2% (BldA) [Mass fraction] 98 % Pulm Wstr Work Phone: [facility] 12-27-2022 13:06-0400 Body height 149.[address] Taras rGeen Work Phone: [facility] 12-27-2022 13:06-0400 Body temperature 98.3 [degF] Dr. Taras Green Work Phone: [facility] 12-27-2022 13:06-0400 Diastolic blood pressure 70 mm[Hg] Dr. Taras Green Work Phone: [facility] 12-27-2022 13:06-0400 Heart rate 80 /min Dr. Taras Green Work Phone: [facility] 12-27-2022 13:06-0400 Respiratory rate 16 /min Dr. Taras Green Work Phone: [facility] 12-27-2022 13:06-0400 SaO2% (BldA) [Mass fraction] 96 % Dr. Taras Green Work Phone: [facility] 12-27-2022 13:06-0400 Systolic blood pressure 146 mm[Hg] Dr. Taras Green Work Phone: [facility] 10-11-2022 13:16-0400 Body height 149.[address] Taras Green Work Phone: [facility] 10-11-2022 13:16-0400 Body mass index (BMI) [Ratio] 33.5 kg/m2 Dr. Taras Green Work Phone: [facility] 10-11-2022 13:16-0400 Body weight 75.[address] Taras Green Work Phone: [facility] 10-11-2022 13:16-0400 Diastolic blood pressure 68 mm[Hg] Dr. Taras Green Work Phone: [facility] 10-11-2022 13:16-0400 Heart rate 53 /min Dr. Taras Green Work Phone: [facility] 10-11-2022 13:16-0400 Respiratory rate 18 /min Dr. Taras Green Work Phone: [facility] 10-11-2022 13:16-0400 SaO2% (BldA) [Mass fraction] 97 % Dr. Taras Green Work Phone: [facility] 10-11-2022 13:16-0400 Systolic blood pressure 113 mm[Hg] Dr. Taras Green Work Phone: [facility] 07-15-2022 17:44-0500 Body temperature 97.4 [degF] Dr. Taras Green Work Phone: 2(273)[phone] [place] [address] 07-15-2022 17:44-0500 Diastolic blood pressure 70 mm[Hg] Dr. Taras Green Work Phone: 3(348)[phone] [place] [address] 07-15-2022 17:44-0500 Heart rate 63 /min Dr. Taras Green Work Phone: [facility] 07-15-2022 17:44-0500 Respiratory rate 17 /min Dr. Taras Green Work Phone: [facility] 07-15-2022 17:44-0500 SaO2% (BldA) [Mass fraction] 96 % Dr. Taras Green Work Phone: [facility] 07-15-2022 17:44-0500 Systolic blood pressure 106 mm[Hg] Dr. Taras Green Work Phone: [facility] 07-12-2022 13:05-0500 Body temperature 97.2 [degF] Dr. Taras Green Work Phone: [facility] 07-12-2022 13:05-0500 Diastolic blood pressure 58 mm[Hg] Dr. Taras Green Work Phone: [facility] 07-12-2022 13:05-0500 Heart rate 61 /min Dr. Taras Green Work Phone: [facility] 07-12-2022 13:05-0500 Respiratory rate 16 /min Dr. Taras Green Work Phone: [facility] 07-12-2022 13:05-0500 SaO2% (BldA) [Mass fraction] 98 % Dr. Taras Green Work Phone: [facility] 07-12-2022 13:05-0500 Systolic blood pressure 98 mm[Hg] Dr. Taras Green Work Phone: [facility] 07-12-2022 11:34-0500 Body height 149.[address] Taras Green Work Phone: [facility] 07-12-2022 11:34-0500 Body mass index (BMI) [Ratio] 33.1 kg/m2 Dr. Taras Green Work Phone: [facility] 07-12-2022 11:34-0500 Body weight 74.[address] Taras Green Work Phone: [facility] 04-21-2022 14:53-0500 Body height 149.[address] Taras Green Work Phone: [facility] Work Phone: 04-21-2022 14:53-0500 Body mass index (BMI) [Ratio] 33.7 kg/m2 Dr. Taras Green Work Phone: [facility] 04-21-2022 14:53-0500 Body weight 75.[address] Taras Green Work Phone: [facility] 04-21-2022 14:53-0500 Diastolic blood pressure 81 mm[Hg] Dr. Taras Green Work Phone: [facility] 04-21-2022 14:53-0500 Heart rate 93 /min Dr. Taras Green Work Phone: [facility] 04-21-2022 14:53-0500 Respiratory rate 18 /min Dr. Taras Green Work Phone: [facility] 04-21-2022 14:53-0500 SaO2% (BldA) [Mass fraction] 98 % Dr. Taras Green Work Phone: [facility] 04-21-2022 14:53-0500 Systolic blood pressure 137 mm[Hg] Dr. Taras Green Work Phone: [facility] 11-06-2021 10:10-0400 Body height 149.[address] Trinity Baird Work Phone: [facility] Work Phone: 11-06-2021 10:10-0400 Body mass index (BMI) [Ratio] 33.3 kg/m2 Dr. Trinity Baird Work Phone: [facility] Work Phone: 11-06-2021 10:10-0400 Body temperature 98.1 [degF] Dr. Trinity Biard Work Phone: [facility] Work Phone: 11-06-2021 10:10-0400 Body weight 74.[address] Trinity Baird Work Phone: [facility] Work Phone: 11-06-2021 10:10-0400 Diastolic blood pressure 72 mm[Hg] Dr. Trinity Baird Work Phone: [facility] Work Phone: 11-06-2021 10:10-0400 Heart rate 72 /min Dr. Trinity Baird Work Phone: [facility] Work Phone: 11-06-2021 10:10-0400 Respiratory rate 15 /min Dr. Trinity Baird Work Phone: [facility] Work Phone: 11-06-2021 10:10-0400 SaO2% (BldA) [Mass fraction] 96 % Dr. Trinity Baird Work Phone: [facility] Work Phone: 11-06-2021 10:10-0400 Systolic blood pressure 136 mm[Hg] Dr. Trinity Baird Work Phone: [facility] Work Phone: 10-18-2021 15:18-0400 Body mass index (BMI) [Ratio] 33.1 kg/m2 Dr. Taras Green Work Phone: [facility] Work Phone: 10-18-2021 15:18-0400 Body temperature 98.2 [degF] Dr. Taras Green Work Phone: [facility] Work Phone: 10-18-2021 15:18-0400 Body weight 74.[address] Taras Green Work Phone: [facility] Work Phone: 10-18-2021 15:18-0400 Diastolic blood pressure 64 mm[Hg] Dr. Taras Green Work Phone: [facility] Work Phone: 10-18-2021 15:18-0400 Heart rate 60 /min Dr. Taras Green Work Phone: [facility] Work Phone: 10-18-2021 15:18-0400 Respiratory rate 16 /min Dr. Taras Green Work Phone: [facility] Work Phone: 10-18-2021 15:18-0400 SaO2% (BldA) [Mass fraction] 97 % Dr. Taras Green Work Phone: [facility] Work Phone: 10-18-2021 15:18-0400 Systolic blood pressure 122 mm[Hg] Dr. Taras Green Work Phone: [facility] Work Phone: 10-18-2021 15:18-0400 Body height 149.[address] Trinity Baird Work Phone: [facility] Work Phone: 10-18-2021 15:18-0400 Body mass index (BMI) [Ratio] 33.1 kg/m2 Dr. Trinity Baird Work Phone: [facility] Work Phone: 10-18-2021 15:18-0400 Body temperature 98.2 [degF] Dr. Trinity Baird Work Phone: [facility] Work Phone: 10-18-2021 15:18-0400 Body weight 74.[address] Trinity Baird Work Phone: [facility] Work Phone: 10-18-2021 15:18-0400 Diastolic blood pressure 64 mm[Hg] Dr. Trinity Baird Work Phone: [facility] Work Phone: 10-18-2021 15:18-0400 Heart rate 60 /min Dr. Trinity Baird Work Phone: [facility] Work Phone: 10-18-2021 15:18-0400 Respiratory rate 16 /min Dr. Trinity Baird Work Phone: [facility] Work Phone: 10-18-2021 15:18-0400 SaO2% (BldA) [Mass fraction] 97 % Dr. Trinity Baird Work Phone: [facility] Work Phone: 10-18-2021 15:18-0400 Systolic blood pressure 122 mm[Hg] Dr. Trinity Baird Work Phone: [facility] Work Phone: 09-08-2021 15:35-0400 Body mass index (BMI) [Ratio] 33.3 kg/m2 Dr. Taras Green Work Phone: [facility] Work Phone: 09-08-2021 15:35-0400 Body weight 74.[address] Taras Green Work Phone: [facility] Work Phone: 09-08-2021 15:35-0400 Diastolic blood pressure 72 mm[Hg] Dr. Taras Green Work Phone: [facility] Work Phone: 09-08-2021 15:35-0400 Heart rate 72 /min Dr. Taras Green Work Phone: [facility] Work Phone: 09-08-2021 15:35-0400 Respiratory rate 18 /min Dr. Taras Green Work Phone: [facility] Work Phone: 09-08-2021 15:35-0400 SaO2% (BldA) [Mass fraction] 97 % Dr. Taras Green Work Phone: [facility] Work Phone: 09-08-2021 15:35-0400 Systolic blood pressure 119 mm[Hg] Dr. Taras Green Work Phone: [facility] Work Phone: 09-08-2021 15:35-0400 Body mass index (BMI) [Ratio] 33.3 kg/m2 Dr. Trinity Baird Work Phone: [facility] Work Phone: 09-08-2021 15:35-0400 Body weight 74.[address] Trinity Baird Work Phone: [facility] Work Phone: 09-08-2021 15:35-0400 Diastolic blood pressure 72 mm[Hg] Dr. Trinity Baird Work Phone: [facility] Work Phone: 09-08-2021 15:35-0400 Heart rate 72 /min Dr. Trinity Baird Work Phone: [facility] Work Phone: 09-08-2021 15:35-0400 Respiratory rate 18 /min Dr. Trinity Baird Work Phone: [facility] Work Phone: 09-08-2021 15:35-0400 SaO2% (BldA) [Mass fraction] 97 % Dr. Trinity Baird Work Phone: [facility] Work Phone: 09-08-2021 15:35-0400 Systolic blood pressure 119 mm[Hg] Dr. Trinity Baird Work Phone: [facility] Work Phone: 07-15-2021 17:35-0500 Diastolic blood pressure 106 mm[Hg] Dr. Trinity Baird Work Phone: [facility] Work Phone: 07-15-2021 17:35-0500 Heart rate 100 /min Dr. Trinity Baird Work Phone: [facility] Work Phone: 07-15-2021 17:35-0500 Respiratory rate 16 /min Dr. Trinity Baird Work Phone: [facility] Work Phone: 07-15-2021 17:35-0500 Systolic blood pressure 203 mm[Hg] Dr. Trinity Baird Work Phone: [facility] Work Phone: 07-15-2021 14:33-0500 Body mass index (BMI) [Ratio] 33.3 kg/m2 Dr. Trinity Baird Work Phone: [facility] Work Phone: 07-15-2021 14:33-0500 Body temperature 97.6 [degF] Dr. Trinity Baird Work Phone: [facility] Work Phone: 07-15-2021 14:33-0500 Body weight [address] Trinity Baird Work Phone: [facility] Work Phone: 07-15-2021 14:33-0500 SaO2% (BldA) [Mass fraction] 98 % Dr. Trinity Baird Work Phone: [facility] Work Phone: 07-15-2021 14:08-0500 Diastolic blood pressure 97 mm[Hg] Dr. Trinity Baird Work Phone: [facility] Work Phone: 07-15-2021 14:08-0500 Systolic blood pressure 171 mm[Hg] Dr. Trinity Baird Work Phone: [facility] Work Phone: 07-15-2021 08:07-0500 Body weight 74.[address] Trinity Baird Work Phone: [facility] Work Phone: 07-15-2021 08:07-0500 Heart rate 93 /min Dr. Trinity Baird Work Phone: [facility] Work Phone: 07-15-2021 08:07-0500 Respiratory rate 18 /min Dr. Trinity Baird Work Phone: [facility] Work Phone: 07-15-2021 08:07-0500 SaO2% (BldA) [Mass fraction] 97 % Dr. Trinity Baird Work Phone: [facility] Work Phone: 07-02-2020 14:37-0500 Body mass index (BMI) [Ratio] 33.9 kg/m2 Dr. Trinity Baird Work Phone: [facility] Work Phone: 04-26-2019 12:43-0500 BP Diastolic 74 mm[Hg] [place], [place] 04-26-2019 12:43-0500 BP Systolic 126 mm[Hg] Dc Newman [facility], [place] 04-26-2019 12:43-0500 Pulse (Heart Rate) 74 /min Dc Fontaine [facility], [place] 04-26-2019 12:43-0500 Pulse Oximetry 99 % Dc Newman [facility], [place] 04-26-2019 12:43-0500 Respiratory Rate 16 /[facility] [place] 04-26-2019 10:59-0500 Body Temperature 98.2 [degF] Dc Newman [facility], [place] 04-04-2019 17:21-0400 BMI (Body Mass Index) 30.3 kg/m2 Leonides Tyler [facility], [place] 04-04-2019 17:21-0400 Body Temperature 98.01 [degF] Leonides Tyler [facility], [place] 04-04-2019 17:21-0400 Body weight 68.04 kg Leonides Tyler [facility] , [place] 04-04-2019 17:21-0400 BP Diastolic 86 mm[Hg] Leonides Tyler [facility] , [place] 04-04-2019 17:21-0400 BP Systolic 168 mm[Hg] Leonides Tyler [facility] , [place] 04-04-2019 17:21-0400 Height 149.9 cm Leonides Tyler [facility] , [place] 04-04-2019 17:21-0400 Pulse (Heart Rate) 81 /min Leonides Tyler [facility], [place] 04-04-2019 17:21-0400 Pulse Oximetry 98 % Leonides Tyler [facility] , [place] 04-04-2019 17:21-0400 Respiratory Rate 18 /min Leonides Tyler [facility], [place] 08-14-2018 20:32-0400 Body temperature 37.0 [facility] Comment on above: Performed By: #### TROP #### [place] [address] 06-01-2018 12:04-0500 Body temperature 37.0 [facility] Comment on above: Performed By: #### LIP #### [facility] [address] [place] [address] 05-31-2018 07:16-0500 Body temperature 37.0 [facility] Comment on above: Performed By: #### GFR #### [facility] [address] [place] [address] 05-31-2018 02:14-0500 Body temperature 37.0 [facility] Comment on above: Performed By: #### GFR #### [facility] [address] [place] [address] 05-30-2018 17:36-0500 Body temperature 36.0 [facility] Comment on above: Performed By: #### P8 #### [facility] [address] [place] [address] Encounters Encounter Date Encounter Type Care Provider Facility Start: 01-15-2025 End: 01-15-2025 Patient encounter procedure Sally CARDENAS -[facility] Work Phone: Start: 01-15-2025 End: 01-15-2025 ambulatory Ximena Sylvester FAMILY COUNSELOR-C Work Phone: -[facility] Start: 01-14-2025 End: 01-14-2025 Patient encounter procedure Marely CARDENAS -[facility] Work Phone: Start: 01-14-2025 End: 01-14-2025 ambulatory Ximena Sylvester FAMILY COUNSELOR-C Work Phone: -[facility] Start: 12-31-2024 End: 12-31-2024 Emergency department patient visit Ximena Sylvester FAMILY COUNSELOR-C Work Phone: -Emergency Department Work Phone: Start: 12-31-2024 End: 12-31-2024 ambulatory Ximena Sylvester FAMILY COUNSELOR-C Work Phone: -Outpatient Breast Imaging Start: 12-31-2024 End: 12-31-2024 Patient encounter procedure Ximena Sylvester FAMILY COUNSELOR-C -Outpatient Breast Imaging Work Phone: Start: 12-31-2024 End: 12-31-2024 ambulatory [facility] Facility:[facility] Start: 12-10-2024 End: 12-10-[address] Abdelrahman Saldana MD -[facility] Work Phone: Start: 12-10-2024 End: 12-10-2024 ambulatory [facility] FAMILY COUNSELOR-C Work Phone: -[facility] Start: 12-03-2024 Non-patient / Non-visit Dr. Geri Mckeon MD -[facility] Work Phone: Start: 10-03-2024 End: 10-03-2024 Patient encounter procedure Sally CARDENAS -[facility] Work Phone: Start: 10-03-2024 End: 10-03-2024 ambulatory [facility] Facility:[facility] Start: 09-03-2024 End: 09-03-2024 ambulatory [facility] FAMILY COUNSELOR-C Work Phone: [facility] Work Phone: Start: 09-03-2024 End: 09-03-2024 Patient encounter procedure Tere Mckenzie [facility]ILY COUNSEL[facility]-C [facility] Start: 09-02-2024 End: 09-02-2024 Patient encounter procedure Tere Mckenzie FAMILY COUNSELOR-C -[facility] Work Phone: Start: 09-02-2024 End: 09-03-2024 ambulatory [facility] Facility:[facility] Start: 08-09-2024 Non-patient / Non-visit Philip Drummond DO -[facility] Start: 08-09-2024 End: 08-09-2024 Admission to same day surgery center Philip Drummond DO -Endoscopy Work Phone: Start: 08-09-2024 End: 08-09-[address] Williams Starr DO Work Phone: [facility] Work Phone: Start: 08-09-2024 End: 08-09-2024 ambulatory [facility] Facility:[facility] Start: 07-16-2024 End: 07-22-2024 Refill Gladys Baird MD Work Phone: Pulmonary Medicine Comment on above: Refill Request Start: 07-11-2024 End: 07-12-2024 Refill Gladys Baird MD Work Phone: Pulmonary Medicine Comment on above: Refill Request Start: 07-04-2024 End: 07-04-2024 Telephone encounter Mae Raya MD Work Phone: OB/Gynecology Comment on above: Results Start: 07-02-2024 End: 07-02-2024 ambulatory MAE RAYA Facility:[facility] Start: 07-02-2024 End: 07-02-2024 Office outpatient visit 15 minutes Mae Raya MD Work Phone: OB/Gynecology Comment on above: Vaginal itching (Margie micaela Dx); Cystocele, midline Start: 06-13-2024 End: 06-13-2024 Patient encounter procedure Philip Drummond DO -[facility] Work Phone: Start: 06-13-2024 End: 06-13-2024 ambulatory [facility] Facility:[facility] Start: 06-11-2024 End: 06-11-2024 Patient encounter procedure Ximena Sylvester FAMILY COUNSELOR-C -Outpatient Bone Densitometry Work Phone: Start: 06-11-2024 End: 06-11-2024 ambulatory [facility] Facility:[facility] Start: 05-27-2024 End: 05-27-2024 Patient encounter procedure Tere Mckenzie FAMILY COUNSELOR-C -Laboratory Work Phone: Start: 05-27-2024 End: 05-27-2024 ambulatory [facility] Facility:[facility] Start: 05-14-2024 End: 05-14-[address] Brendon Orozco MD -[facility] Work Phone: Start: 05-14-2024 End: 05-14-2024 ambulatory [facility] Facility:[facility] Start: 04-23-2024 End: 04-23-2024 Patient encounter procedure Marely Taylor GA -[facility] Work Phone: Start: 04-23-2024 End: 04-23-2024 ambulatory Williams Starr Facility:[facility] Start: 04-18-2024 End: 04-18-2024 ambulatory Ximena Mendezgar Facility:[facility] Start: 03-19-2024 End: 03-19-2024 ambulatory [facility] Facility:[facility] Start: 03-06-2024 End: 03-06-2024 ambulatory [facility] Start: 03-05-2024 End: 03-05-2024 ambulatory [facility] Facility:[facility] Start: 09-26-2023 End: 09-26-2023 Patient encounter procedure Agustina Hirsch MD Work Phone: OB/Gynecology Comment on above: Vulvar dermatitis (P rimary Dx); Cystocele, midline Start: 09-26-2023 End: 09-26-2023 ambulatory TARAS GREEN Facility:[facility] Start: 08-09-2023 End: 08-09-[address] Taras Green Work Phone: [facility] Work Phone: Start: 08-09-2023 End: 08-09-[address] Taras Green Work Phone: [facility]-Laboratory, Specimen Work Phone: Start: 08-04-2023 End: 08-04-2023 Non-patient / Non-visit Dr. Taras Green Work Phone: [facility] Work Phone: Start: 08-04-2023 End: 08-04-[address] Taras Green Work Phone: [facility] Work Phone: Start: 08-04-2023 End: 08-04-[address] Taras rGeen [facility] Work Phone: Start: 07-10-2023 Refill Gladys Biard MD Work Phone: Pulmonary Medicine Comment on above: Refill Request Start: 07-03-2023 Non-patient / Non-visit Dr. Taras Green Work Phone: [facility] Start: 07-03-2023 End: 07-03-[address] Taras Green Work Phone: [facility] Work Phone: Start: 07-03-2023 End: 07-03-[address] Taras Green [facility] Work [facility] Start: 05-24-2023 Non-patient / Non-visit Dr. Taras Green Work Phone: [facility] Start: 05-24-2023 Non-patient / Non-visit Dr. Taras Green Work Phone: [facility] Start: 05-24-2023 End: 05-24-[address] Taras Green Work Phone: [facility] Work Phone: Start: 05-24-2023 End: 05-24-[address] Taras Green [facility] Work [facility] Start: 05-22-2023 Non-patient / Non-visit Dr. Taras Green Work Phone: [facility] Start: 05-22-2023 End: 05-22-[address] Taras Green [facility] Work [facility] Start: 04-17-2023 Telephone encounter May wood APRN.[employer]OO CARETAKER Work Phone: Pulmonary Medicine Start: 04-14-2023 Telephone encounter May Alcazar israel WARRANT SERVER.[employer] CARETAKER Work Phone: Pulmonary Medicine Start: 04-13-2023 End: 04-13-2023 Subsequent hospital visit by physician [facility] Work Phone: Cat Scan Comment on above: Former cigarette smo ker [Z87.891] Start: 04-12-2023 End: 04-12-[address] Taras Green Work Phone: [facility] Work Phone: Start: 03-30-2023 End: 03-30-[address] Taras Green Work Phone: [facility] Work Phone: Start: 03-21-2023 End: 03-21-[address] Taras Green Work Phone: [facility] Work Phone: Start: 03-21-2023 End: 03-21-[address] Taras Green Work Phone: [facility]-Ultrasound, [facility] Work Phone: Start: 03-16-2023 End: 03-16-[address] Taras Green Work Phone: [facility] Work Phone: Start: 03-16-2023 End: 03-16-[address] Taras Green Work Phone: [facility]-Cat Scan, [facility] Work Phone: Start: 03-14-2023 End: 03-14-2023 Patient encounter procedure Kanika Del Cid WARRANT SERVER.[employer] CARETAKER Work Phone: Pulmonary Medicine Comment on above: Encounter for screen ing for lung cancer (Primary Dx); Former cigarette smoker Start: 03-09-2023 End: 03-09-2023 Patient encounter procedure Jonathon Carpio MD Work Phone: Orthopaedics Comment on above: Bilateral carpal savana ricardo syndrome (Primary Dx) Start: 03-09-2023 End: 03-09-2023 Subsequent hospital visit by physician Xr [facility] Work Phone: Radiology Comment on above: Bilateral hand pain [M79.641, M79.642] Start: 02-21-2023 End: 02-21-2023 ambulatory [facility] Comment on above: Spirometry Start: 02-21-2023 End: 02-21-2023 Patient encounter procedure [facility] Work Phone: [facility] Comment on above: COPD, mild (HCC) (Pr imary Dx); Former cigarette smoker Start: 02-01-2023 Telephone encounter Jonathon baer MD Work Phone: Orthopaedics Comment on above: Chart prep Start: 01-05-2023 End: 01-05-[address] Taras Green Work Phone: [facility] Work Phone: Start: 01-05-2023 End: 01-05-[address] Taras Green Work Phone: [facility]-Laboratory, Phy Office 3rd Flr Start: 01-04-2023 End: 01-04-2023 Non-patient / Non-visit Dr. Taras Green Work Phone: [facility] Work Phone: Start: 01-04-2023 End: 01-04-[address] Taras Green Work Phone: [facility] Work Phone: Start: 01-04-2023 End: 01-04-[address] Taras Green Work Phone: [facility]-Pulmonary Services/Neurology Work Phone: Start: 12-27-2022 End: 12-27-[address] Taras Green Work Phone: [facility] Work Phone: Start: 12-27-2022 End: 12-27-[address] Taras Green Work Phone: [facility]-Radiology, [facility] Work Phone: Start: 12-27-2022 End: 12-27-[address] Taras Green Work Phone: [facility] Work Phone: Start: 12-20-2022 End: 12-20-[address] Taras Green Work Phone: [facility] Work Phone: Start: 12-20-2022 End: 12-20-[address] Taras Green Work Phone: [facility]-Laboratory, Phy Office 3rd Kyr Start: 11-29-2022 End: 11-29-[address] Taras Green Work Phone: [facility]-Outpatient Breast Imaging Work Phone: Start: 11-15-2022 End: 11-15-[address] Taras Green Work Phone: [facility] Work Phone: Start: 11-15-2022 End: 11-15-[address] Taras Green Work Phone: [facility]-Laboratory Start: 11-09-2022 End: 11-09-[address] Taras Green Work Phone: [facility]-Nuclear Medicine, [facility] Start: 11-08-2022 End: 11-08-[address] Taras Green Work Phone: [facility]-Laboratory, Specimen Start: 10-13-2022 End: 10-13-[address] Taras Green Work Phone: [facility] Start: 10-11-2022 End: 10-11-[address] Taras Green Work Phone: [facility] Start: 10-04-2022 End: 10-04-[address] Taras Green Work Phone: [facility] Work Phone: Start: 10-04-2022 End: 10-04-[address] Taras Green Work Phone: [facility]-Pulmonary Services/Neurology Start: 08-04-2022 End: 08-04-[address] Taras Green Work Phone: [facility] Work Phone: Start: 08-04-2022 End: 08-04-[address] Taras Green Work Phone: [facility]-Laboratory, Phy Office 3rd Flr Start: 07-16-2022 End: 07-16-[address] Taras Green Work Phone: [facility] Work Phone: Start: 07-16-2022 End: 07-16-[address] Taras Green Work Phone: [facility]-Laboratory, Specimen Start: 07-15-2022 End: 07-15-[address] Taras Green Work Phone: [facility] Start: 07-12-2022 Non-patient / Non-visit Dr. Taras Green Work Phone: [facility] Start: 07-12-2022 End: 07-12-2022 Admission to same day surgery center Dr. Taras Green Work Phone: [facility]-Endoscopy Start: 07-12-2022 End: 07-12-[address] Taras Green Work Phone: [facility] Work Phone: Start: 04-21-2022 End: 04-21-[address] Taras Green Work Phone: [facility] Work Phone: Start: 04-21-2022 End: 04-21-[address] Taras Green Work Phone: [facility] Start: 04-11-2022 Non-patient / Non-visit Dr. Taras Green Work Phone: [facility] Start: 04-11-2022 End: 04-11-[address] Taras Green Work Phone: [facility] Work Phone: Start: 04-11-2022 End: 04-11-[address] Taras Green Work Phone: [facility]-Pulmonary Services/Neurology Start: 03-17-2022 End: 03-17-[address] Taras Green Work Phone: [facility] Work Phone: Start: 03-17-2022 End: 03-17-[address] Taras Green Work Phone: [facility]-Laboratory, Phy Office 3rd Kyr Start: 01-07-2022 End: 01-07-[address] Taras Green Work Phone: [facility] Start: 12-23-2021 End: 12-23-[address] Taras Green Work Phone: [facility]-Occupational Therapy Start: 12-10-2021 End: 12-10-[address] Taras Green Work Phone: [facility] Start: 12-09-2021 End: 12-09-[address] Taras Green Work Phone: [facility] Start: 11-11-2021 End: 11-11-[address] Taras Green Work Phone: [facility] Office 3rd Flr Start: 11-06-2021 End: 11-06-2021 Emergency department patient visit Dr. Trinity Baird Work Phone: [facility]-Emergency Department Start: 10-28-[address] Trinity Baird [facility] Start: 10-25-2021 End: 10-25-[address] Trinity Baird Work Phone: [facility] Office 3rd Flr Start: 10-21-[address] Trinity Baird [facility] Start: 10-18-2021 End: 10-18-[address] Trinity Baird Work Phone: [facility] Start: 10-18-2021 End: 10-18-[address] Trinity Baird Work Phone: [facility] Start: 10-15-2021 Refill No Pcp [facility] [place] Comment on above: Refill Request Start: 09-22-2021 End: 09-22-[address] Trinity Baird Work Phone: [facility] Start: 09-10-2021 End: 09-10-[address] Trinity Baird Work Phone: [facility] Start: 09-08-2021 End: 09-08-[address] Trinity Baird Work Phone: [facility] Start: 08-27-[address] Trinity Baird Work Phone: [facility] Start: 08-27-2021 End: 08-27-[address] Trinity Baird Work Phone: [facility] Start: 08-23-2021 End: 08-23-[address] Trinity Baird Work Phone: [facility]-Radiology, [facility] Start: 08-19-2021 End: 08-19-[address] Trinity Baird Work Phone: [facility]-Outpatient Breast Imaging Start: 08-10-2021 Non-patient / Non-visit Dr. Trinity Baird Work Phone: [facility] Start: 08-10-2021 End: 08-10-[address] Trinity Baird [facility] Start: 08-10-2021 Non-patient / Non-visit Dr. Trinity Baird Work Phone: [facility] Start: 07-22-2021 End: 07-22-[address] Trinity Baird Work Phone: [facility]-Laboratory, Phy Office 3rd Flr Start: 07-15-2021 End: 07-15-2021 Emergency department patient visit Dr. Trinity Baird Work Phone: [facility]-Emergency Department Start: 07-15-2021 End: 07-15-[address] Trinity Baird Work Phone: [facility] Start: 05-01-2019 End: 05-01-2019 Subsequent hospital visit by physician Susan Teague Work Phone: [facility] Radiology Comment on above: Chronic fatigue; Diabetes mellitus type 2 in obese (HCC); Chronic bilateral low back pain without sciatica Start: 04-26-2019 End: 04-26-2019 Emergency department patient visit Dc Newman Work Phone: [facility] Comment on above: Dyspnea, unspecified type (Primary Dx) Start: 04-04-2019 End: 04-04-2019 Emergency department patient visit Leonides Tyler Work Phone: [facility] Comment on above: Acute frontal sinusi tis, recurrence not specified (Primary Dx) Start: 02-08-2019 End: 02-08-2019 ambulatory UNKNOWN PROVIDER [facility] Procedures Date Procedure Procedure Detail Performing Clinician Start: 12-31-2024 Plain x-ray of hand Evi abbey Omero FAMILY COUNSELOR-C Work Phone: Start: 12-31-2024 X-ray of chest, PA a nd lateral views Ximena Omero FAMILY COUNSELOR-C Work Phone: Start: 12-31-2024 Estimated creatinine clearance Ximena Sylvester FAMILY COUNSELOR-C Work Phone: Start: 12-31-2024 Screening mammography R robert Sylvester FAMILY COUNSELOR-C Work Phone: Start: 09-03-2024 Urine microalbumin/creatinine ratio measurement Ximena Sylvester FAMILY COUNSELOR-C Work Phone: Comment on above: Previous reported [...] Work Phone: Start: 11-29-2022 Bilateral mammography D thiago Green Work Phone: Start: 11-09-[address] Taras Green Work Phone: Start: 11-08-[address] Taras mceknzie Work Phone: Start: 10-04-2022 Influenza Types A,B [...] Baird Work Phone: Start: 08-19-2021 Screening mammography Sammi Baird Work Phone: Start: 08-10-2021 Cardiovascular stres [...] Radiologic exam ches t 2 views Dc [employer] Work Phone: Start: 04-26-2019 Assay of troponin quantitative [facility] Work Phone: Start: 04-26-2019 Basic metabolic pane l calcium total [facility] Work Phone: Start: 04-26-2019 Blood count complete auto&auto difrntl wbc Dc Rushing [facility] Work Phone: Start: 06-10-2018 End: 08-02-2018 History of coronary artery bypass grafting S/P CABG (coronary artery bypass graft) Agustina Hirsch MD Work Phone: Start: 05-30-2018 History of coronary artery bypass grafting H/O coronary artery bypass surgery Marely CARDENAS Comment on above: CABG x 3 THORNE-LAD, S VG-OM1, SVG-Distal RCA 05/30/2018 Start: 05-28-2018 Antibody screen Comment on above: Performed By: #### C BCD1 #### [place] [address] Start: 09-25-2012 Colonoscopy No Pcp Start: 07-31-2011 Mammography No Pcp Urine culture Dr. Taras Green Work Phone: Urine culture Dr. Taras Green Work Phone: Plan of Treatment Date Care Activity Detail Author Start: 12-31-2024 [facility] Start: 12-31-2024 [facility] Start: 12-31-2024 MG Breast - bilateral Screening [facility] Start: 12-31-2024 Screening mammography SCRN MAMM (CAD)W/DAVE BILAT [facility] Start: 09-25-2024 BP Controlled (<130/80) BP Controlled (<130/80) [facility] Start: 08-09-2024 Esophageal motility study w/interp&rpt ESOPHAGUS MOTILITY STUDY [facility] Start: 2024 RSV Vaccine (1 - 1-dose 75+ series) RSV Vaccine (1 - 1-dose 75+ series) [facility] Start: 06-05-2024 Advance Directive Discussion Advance Directive Discussion [facility] Start: 04-13-2024 Influenza vaccination Lung Cancer Screening [facility] Start: 04-13-2024 Screening for malignant neoplasm of lung Lung Cancer Screening [facility] Start: 03-14-2024 BP Controlled (<130/80) BP Controlled (<130/80) [facility] Start: 02-04-2024 Covid-19 Vaccine () Covid-19 Vaccine () [facility] Start: 02-04-2024 Influenza vaccination [facility] Start: 10-25-2023 End: 10-25-2023 Patient encounter procedure 10/25/2023 3:00 PM EDT Office Visit Pulmonary Medicine [address] [place], [place] [id number] Mae Solorio, PA-C [address] [place], [place] [address] COPD follow up Pulmonary Medicine Comment on above: COPD follow up Start: 06-05-2023 Advance Directive Discussion Advance Directive Discussion [facility] Start: 06-05-2023 Behavioral Health Screening Behavioral Health Screening [facility] Start: 06-05-2023 Depression Assessment Depression Assessment [facility] Start: 02-03-2023 Covid-19 Vaccine () Covid-19 Vaccine () [facility] Start: 02-03-2023 Influenza vaccination [facility] Start: 01-27-2023 Covid-19 Vaccine (6 - Additional dose for [place] series) Covid-19 Vaccine (6 - Additional dose for [place] series) [facility] Start: 11-15-2022 Immunoglobulin measurement [facility] Start: 11-15-2022 Serum immunofixation [facility] Start: 11-15-2022 [facility] Start: 09-25-2022 Colonoscopy COLONOSCOPY [facility] Start: 09-25-2022 COLORECTAL CANCER SCREENING COLORECTAL CANCER SCREENING [facility] Start: 09-25-2022 Screening for malignant neoplasm of colon [facility] Start: 07-12-2022 Colonoscopy w/biopsy single/multiple COLONOSCOPY AND BIOPSY [facility] Start: 07-12-2022 Colsc flx w/rmvl of tumor polyp lesion snare tq COLONOSCOPY W/LESION REMOVAL [facility] Start: 07-12-2022 Egd insert guide wire dilator passage esophagus EGD GUIDE WIRE INSERTION [facility] Start: 07-12-2022 Egd transoral biopsy single/multiple EGD BIOPSY SINGLE/MULTIPLE [facility] Start: 07-12-2022 Patient discharge [facility] Start: 06-29-2022 Hepatitis B surface antibody level LDL CHOLESTEROL [facility] Start: 06-05-2022 ADVANCE DIRECTIVE DISCUSSION ADVANCE DIRECTIVE DISCUSSION [facility] Start: 06-05-2022 DEPRESSION ASSESSMENT DEPRESSION ASSESSMENT [facility] Start: 03-10-2022 ANNUAL PCP TEAM CHRONIC DISEASE VISIT ANNUAL PCP TEAM CHRONIC DISEASE VISIT [facility] Start: 02-03-2022 Influenza vaccination INFLUENZA (Season Ended) [facility] Start: 10-21-2021 Hepatitis B screening URINE ALBUMIN:CREATININE RATIO [facility] Start: 09-27-2021 Hemoglobin A1c measurement HbA1C [facility] Start: 09-27-2021 Hemoglobin A1c/Hemoglobin.total in Blood HBA1C [facility] Start: 07-15-2021 Emergency department visit limited/minor prob EMERGENCY DEPT VISIT [facility] Work Phone: Start: 06-05-2021 ADVANCE DIRECTIVE DISCUSSION ADVANCE DIRECTIVE DISCUSSION [facility] Start: 04-14-2021 COVID-19 VACCINE (2 - Booster for [place] series) COVID-19 VACCINE (2 - Booster for [place] series) [facility] Start: 03-16-2021 Glaucoma screening Dilated Retinal Exam [facility] Start: 03-16-2021 Hepatitis C antibody, confirmatory test DILATED RETINAL EXAM [facility] Start: 11-23-2020 Breast cancer screen Breast cancer screen [place] Start: 04-26-2020 Creatinine monitoring Creatinine monitoring [place], [place] Start: 04-26-2020 Potassium monitoring Potassium [place] Start: 01-26-2020 Influenza vaccination LUNG CANCER SCREENING [facility] Start: 11-24-2019 Screening for malignant neoplasm of breast Mammogram Screening [facility] Start: 10-16-2019 Creatinine monitoring Creatinine monitoring [place] Start: 10-16-2019 Lipid screen Lipid screen [place] Start: 10-16-2019 Potassium monitoring Pot[place] Start: 10-02-2019 [object Object] Diabetic foot exam [place] Start: 05-01-2019 End: 05-01-2019 Office Visit 05/01/2019 Office Visit Family Medicine Susan Teague, DO [address] [place] [address] [phone] [facility] Start: 04-16-2019 End: 04-16-2019 Office Visit 04/16/2019 Office Visit Family Medicine Susan Teague, DO [address] [place], [place] [address] [facility] Start: 03-30-2019 A1C test (Diabetic or Prediabetic) A1C test (Diabetic or Prediabetic) [place] Start: 03-30-2019 Diabetic microalbuminuria test Diabetic microalbuminuria test [place] Start: 02-03-2019 Influenza vaccination Flu vaccine (#1) [place] Start: 11-21-2018 Annual Wellness Visit (AWV) Annual Wellness Visit (AWV) [place] Start: 04-21-2017 Diabetic retinal exam Diabetic retinal exam [place] Start: 07-31-2012 Mammography [facility] Start: 07-31-2012 Screening for malignant neoplasm of breast Mammogram Screening [facility] Start: 2009 Hepatitis B Vaccine (1 of 3 - Risk 3-dose series) Hepatitis B Vaccine (1 of 3 - Risk 3-dose series) [facility] Start: 2009 RSV Vaccine (1 - 1-dose 60+ series) RSV Vaccine (1 - 1-dose 60+ series) [facility] Start: 1999 Colon cancer screen colonoscopy Colon cancer screen colonoscopy [place] Start: 1999 Shingles Vaccine (1 of 2) Shingles Vaccine (1 of 2) [place] Start: 1999 SHINGRIX VACCINE (1 of 2) SHINGRIX VACCINE (1 of 2) [facility] Start: 1994 COLOGUARD (FIT-DNA) COLOGUARD (FIT-DNA) [facility] Start: [address] COLONOGRAPHY [facility] Start: 1994 FECAL OCCULT BLOOD FECAL OCCULT BLOOD [facility] Start: 1994 Screening for malignant neoplasm of colon [facility] Start: 1994 SIGMOIDOSCOPY SIGMOIDOSCOPY [facility] Start: 1979 Zoledronic acid therapy Alpha-1 Antitrypsin Deficiency Screening [facility] Start: 1968 DTaP/Tdap/Td vaccine (1 - Tdap) DTaP/Tdap/Td vaccine (1 - Tdap) [place] Start: 1968 Urine microalbumin profile [facility] Start: 1967 Anxiety Screening Anxiety Screening [facility] Start: 1967 BP CONTROLLED (<130/80) BP CONTROLLED (<130/80) [facility] Start: 1967 Depression Screening Depression Screening [facility] Start: 1967 HEPATITIS C SCREENING HEPATITIS C SCREENING [facility] Start: 1967 Hepatitis C screening Hepatitis C Screening [facility] Start: 1961 Adult depression screening assessment DEPRESSION SCREENING [facility] Start: 1960 DTaP/Tdap/Td vaccine (1 - Tdap) DTaP/Tdap/Td vaccine (1 - Tdap) [place] Start: 1959 3 comp foot exam completed DIABETIC FOOT EXAM [facility] Start: 1959 Diabetic foot examination Diabetic Foot Exam [facility] Start: 1949 Hepatitis C screen Hepatitis C screen [place] Albumin [Moles/volum e] in Serum or Plasma [facility] Albumin/Globulin ratio [facility] BACTERIAL VAGINOSIS NAAT BACTERI AL VAGINOSIS NAAT Lab Routine Vaginal itching 07/02/2024 4:10 PM EST [facility] Work Phone: BAYRON/TRICHOMONAS NAAT BAYRON /TRICHOMONAS NAAT Lab Routine Vaginal itching 07/02/2024 4:10 PM EST [facility] Clostridioides diffi cile DNA [Presence] in Unspecified specimen by DARLIN with probe detection [facility] End: 04-12-2024 CT LUNG SCREEN WO IVCON CT LUNG SCREEN WO IVCON Radiology Routine Former cigarette smoker 1 Occurrences starting 03/14/2023 until 04/12/2024 [facility] Work Phone: Comment on above: 1 Occurrences starting 03/14/2023 until 04/12/2024 CT LUNG SCREEN WO IVCON CT LUNG SCREEN WO IVCON Radiology Routine Former cigarette smoker 04/13/2023 2:08 PM EST [facility] Work Phone: End: 05-16-2024 CT LUNG SCREEN WO IVCON CT LUNG SCREEN WO IVCON Radiology Routine Former smoker 1 Occurrences starting 04/17/2023 until 05/16/2024 [facility] Work Phone: Comment on above: 1 Occurrences starting 04/17/2023 until 05/16/2024 CT Pelvis W contrast IV [facility] EKG 12 Lead - Chest Pain EKG 12 Lead - Chest Pain ECG STAT 04/26/2019 10:51 AM EST [facility], [place] Elastase, pancreatic (el-1), fecal; quantitative [facility] Electrophoresis: [id number] [facility] Electrophoresis: doreen ma globulin [facility] End: 03-09-2024 EMG(NEURO/NI) EMG(NEURO/NI) EMG Routine Bilateral carpal tunnel syndrome 1 Occurrences starting 03/09/2023 until 03/09/2024 [facility] Work Phone: Comment on above: 1 Occurrences starting 03/09/2023 until 03/09/2024 Fat [Presence] in Stool [facility] Globulin measurement [facility] IgA [Mass/volume] in Serum or Plasma [facility] IgE [Units/volume] i n Serum or Plasma [facility] IgG [Mass/volume] in Serum or Plasma [facility] IgM [Mass/volume] in Serum or Plasma [facility] Lactoferrin [Presenc e] in Stool by Immunoassay [facility] Neutrophil cytoplasm ic Ab.classic [Units/volume] in Serum [facility] P-ANCA measurement [facility] Patient Education [facility] Work Phone: Patient referral [facility] Work Phone: Protein electrophore sis panel - Serum or Plasma [facility] Protein measurement [facility] Radionuclide gastric emptying study [facility] Serum protein electrophoresis [facility] Troponin T.cardiac [Mass/volume] in Serum or Plasma by High sensitivity method [facility] End: 05-01-2019 XR LUMBAR SPINE (MIN 4 VIEWS) XR LUMBAR SPINE (MIN 4 VIEWS) Imaging Routine Once for 1 Occurrences starting 05/01/2019 until 05/01/2019 [facility] Comment on above: Once for 1 Occurrences starting 05/01/20 19 until 05/01/2019 XR LUMBAR SPINE (MIN 4 VIEWS) XR LUMBAR SPINE (MIN 4 VIEWS) Imaging Routine 05/01/2019 4:50 PM EST 2 [facility] [employer] End: 05-01-2019 XR Lumbosacral Spine 4 VW XR Lumbosacral Spine 4 VW Imaging Routine Chronic bilateral low back pain without sciatica 1 Occurrences starting 05/01/2019 until 05/01/2019 [facility] Comment on above: 1 Occurrences starting 05/01/2019 until 05/01/2019 [facility] Immunizations Immunization Date Immunization Notes Care Provider Bess clark 02-17-2021 COVID-19 vaccine ([place]) No Pcp [facility] 03-30-2020 influenza virus vacc ine, unspecified formulation [facility] Work Phone: [facility] 04-14-2016 pneumococcal polysaccharide vaccine, 23 valent [facility] 09-03-2014 pneumococcal conjuga te vaccine, 13 valent [facility] Payers Date Payer Category Payer Medicare (Managed Care) [employer] HMO [id number] 2024 Self-pay [id number] 2023 Medicare [id number] 2023 Medicare [id number] 2023 Unknown [id number] 2023 Medicare [id number] 2021 Unknown [id number]. [id number] 2021 Medicaid [employer] [facility] MEDICAID [id number] 2021-Present [phone] [address] [place] [address] Medicaid [id number] 2021 Medicare [id number] 2018 Medicare HUMANA MEDICARE HUMANA GOLD PLUS HMO xxxxxxxxx 2018-Present [address] [address] [place] [address] xxxxxxxxx [id number] 2013 Medicare [id number] Medicaid [id number] Medicare [id number] Unknown [id number] Unknown [id number] Unknown [id number] Unknown [id number] 2.16.840.1.662761.3.579.2. 462 Unknown [id number] 2.16.840.1.782401.3.579.2. 462 Unknown [id number] 2.16.840.1.347133.3.579.2. 462 Unknown [id number] 2.16.840.1.664467.3.579.2. 462 Unknown [id number] 2.16.840.1.600618.3.579.2. 462 Unknown [id number] 2.16.840.1.864729.3.579.2. 462 Unknown [id number] 2.16.840.1.369753.3.579.2. 462 Unknown [id number] 2.16.840.1.446422.3.579.2. 462 Unknown [id number] 2.16.840.1.342582.3.579.2. 462 Unknown [id number] 2.16.840.1.878525.3.579.2. 462 Unknown [id number] 2.16.840.1.678181.3.579.2. 462 Unknown [id number] 2.16.840.1.001291.3.579.2. 462 Unknown [id number] 2.16.840.1.720542.3.579.2. 462 Unknown [id number] 2.16.840.1.854922.3.579.2. 462 Unknown [id number] 2.16.840.1.708176.3.579.2. 462 Unknown [id number] 2.840.1.785745.3.579.2. 462 Unknown [id number] 2.840.1.772186.3.579.2. 462 Unknown [id number] 2.16840.1.204814.3.579.2. 462 Unknown [id number] 2.0.1.964356.3.579.2. 462 Unknown [id number] 2.840.1.053772.3.579.2. 462 Social History Date Type Detail Facility Start: 05-01-2019 End: 12-31-2024 Tobacco smoking status NHIS Former smoker [facility] Start: 09-04-1974 End: 12-27-2014 History of tobacco use [place] Start: 05-01-2019 End: 07-02-2024 Alcohol intake Current non-drinker of alcohol (finding) [place] Start: 09-22-2016 Tobacco Comment quit 2 years ago [place], [place] Start: 1950 Sex Assigned At Not on file [place] Start: 04-04-2019 End: 02-21-2023 Alcohol intake No [facility] Start: 09-04-1974 End: 09-04-2014 History of tobacco use Cigarette Smoker [facility] Start: 10-14-2014 End: 02-21-2023 Cigarettes smoked current (pack per day) - Reported 1 [facility] Start: 10-14-2014 End: 07-02-2024 Tobacco use and exposure Smokeless tobacco non-user [facility] Start: 03-07-2013 End: 02-21-2023 Tobacco Comment Father smoked in childhood home. [facility] Start: 10-18-2021 End: 04-12-2023 Tobacco smoking status MTIS Unknown if ever smoked [facility] Start: 06-24-2019 None [facility] Start: 06-24-2019 Alone [facility] Start: 07-24-2019 Non-smoker [facility] Start: 1950 Sex Assigned At Female [facility] PHQ2 Score 0 [facility] Start: 08-21-2024 End: 09-09-2024 Sex Female (finding) [facility] NEGATED: Highlighted row [facility] Medical Equipment Procedure Code Equipment Code Equipment Origin al Text Equipment Identifier Dates [id number] Start: 08-03-2017 End: 10-15-2021 Comment on above: [...] route 4 times daily TID, DX: E11.9 [id number] Start: 04-26-2019 1 each by Does n ot apply route daily [id number] Start: 04-10-2017 1 each by In Vit ro route 4 times daily TID, DX: E11.9 [id number] Start: 10-16-2018 End: 04-26-2019 Test blood sugar (s) 4 times daily. Dx: Type 2 DM - Uncontrolled E11.65 Insulin: Yes.Send to pt whatever meter and supplies are covered. [id number] Start: 07-28-2021 Use one needle p er dose. 4 per day. [id number] Start: 10-16-2021 Test blood sugar (s) 4 times daily. Dx: Type 2 DM - Uncontrolled E11.65 Insulin: Yes Send to pt what ever meter and supplies are covered. [id number] Start: 07-28-2021 Goals Date Patient Goal Desired Activity /State Personal health goal Functional Status Date Assessment Result Facility 08-13-2018 Are you deaf, or do you have serious difficulty hearing No 08/13/2018 4:40 PM EDT George Vinson RN No [facility] 08-13-2018 Are you blind, or do you have serious difficulty seeing, even when wearing glasses No 08/13/2018 4:40 PM EDT George Vinson RN No [facility] 08-13-2018 Do you have serious difficulty walking or climbing stairs No 08/13/2018 4:40 PM EDT George Vinson RN No [facility] 08-13-2018 Do you have difficul ty dressing or bathing No 08/13/2018 4:40 PM EDT George Vinson, FADI No [facility] 08-13-2018 Because of a physica l, mental, or emotional condition, do you have difficulty doing errands alone such as visiting a physician's office or shopping Yes 08/13/2018 4:40 PM EDT George Vinson RN Yes [facility] Mental Status Date Assessment Result Facility 08-09-2024 Cognitive function Awake;Alert;A ppropriate;Fo llows Commands [facility] Work Phone: 07-12-2022 Cognitive function Touch/Shaking [facility] Work Phone: 07-12-2022 Cognitive function Patient Orien tation Person;Place;Time [facility] Work Phone: 07-15-2021 Cognitive function Awake;Alert;A ppropriate;Fo [employer] [facility] Work Phone: 08-13-2018 Because of a physica l, mental, or emotional condition, do you have serious difficulty concentrating, remembering, or making decisions Yes 08/13/2018 4:40 PM EDT George Vinson RN Yes [facility] Clinical Notes 08-15-2018 to 12-31-2024 Note Date & Type Note Facility 12-31-2024 Radiology Diagnostic study note [facility] Imaging Services [address] [place] [address] Hand Min 3 Views MR#: [id number] Acct: [id number] Name: LAYLA HIGUERA Rep #: [id number] : 1950 F 74 From: Johnathan Handy MD PCP: GABY Jewell Status: REG ER Study:Hand Min 3 Views Date of Exam: Exam# [id number] Ordering Dr: Jose Davis DO PROCEDURE: LEFT [...] osseous abnormality. Mild degenerative changes. Reading Location: [id number] CC: GABY Sylvester; Dr. Marleny Davis DO ~ [employer]: Signed [facility] 12-31-2024 Radiology Diagnostic study note [facility] Imaging Services [address] [place] [address] Chest PA and Lateral MR#: [id number] Acct: [id number] Name: LAYLA HIGUERA Rep #: [id number] : 1950 F 74 From: Johnathan Handy MD PCP: GABY Jewell Status: REG ER Study:Chest PA and Lateral Date of Exam: 12/31/24 Exam# [id number] Ordering Dr: Jose Davis DO PROCEDURE: CHEST [...] evidence of acute cardiopulmonary disease. Reading Location: [id number] CC: GABY Sylvester; Dr. Marleny Davis DO ~ [employer] Operator: Signed [facility] 10-03-2024 Evaluation note Diagnosis Onset Date Resolution Dysphagia acute October 03, 2024 2:49pm Constipation chronic October 03 2:49pm Essential (primary) hypertension chronic December 10, 2024 1:55pm Fatigue chronic December 10, 2024 1:55pm Hyperlipidemia chronic December 10, 2024 1:55pm H/O coronary artery bypass surgery May 30, 2018 resolved December 10, 2024 1:55pm [facility] Work Phone: [phone] Evaluation note* Diagnosis Onset Date Resolution Status Admit Date Dysphagia acute October 03, 2024 2:49pm Constipation chronic October 03 2:49pm Essential (primary) hypertension chronic December 10, 2024 1:55pm Fatigue chronic December 10, 2024 1:55pm Hyperlipidemia chronic December 10, 2024 1:55pm H/O coronary artery bypass surgery May 30, 2018 resolved December 10 1:55pm Essential (primary) hypertension chronic January 14 12:58pm Fatigue chronic January 14, 2 025 12:58pm Hyperlipidemia chronic January 12:58pm H/O coronary artery bypass surgery May 30, 2018 resolved January 14, 2025 12:58pm [place] [employer] [facility] Work Phone: [phone] Evaluation note* Diagnosis Onset Date Resolution Status Admit Date Dysphagia acute October 03, 2024 2:49pm Constipation chronic October 03 2:49pm Essential (primary) hypertension chronic December 10, 2024 1:55pm Fatigue chronic December 10, 2024 1:55pm Hyperlipidemia chronic December 10, 2024 1:55pm H/O coronary artery bypass surgery May 30, 2018 resolved December 10 1:55pm Essential (primary) hypertension chronic January 14 12:58pm Fatigue chronic January 14, 2 025 12:58pm Hyperlipidemia chronic January 12:58pm H/O coronary artery bypass surgery May 30, 2018 resolved January 14, 2025 12:58pm 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, 2025 2:47pm Dysphagia acute January 15, 2 025 2:47pm Bloating chronic January 15, 2 025 2:47pm Constipation chronic January 15, 2025 2:47pm [place] [employer] [facility] Work Phone: [phone] Evaluation note* Diagnosis Onset Date Resolution Status Admit Date Osteoporosis acute September 02, 2024 1:03pm Chronic fatigue chronic August 1:03pm Diabetes chronic September 02 1:03pm Essential (primary) hypertension chr onic September 02, 2024 1:03pm Hyperlipidemia chronic August 1:03pm Obesity chronic September 02 1:03pm Dysphagia acute October 03, 2024 2:49pm Constipation chronic October 03 2:49pm [facility] Work Phone: 1(803) 521-168703-31-2025 Evaluation note* Diagnosis Onset Date Resolution Status [...] May 30, 2018 resolved December 10 1:55pm [facility] Work Phone: [phone]) 700-600403-11-2025 History and physical note Author Philip Drummond [facility] Note Date/Time August 13, 2024 8:2 6pm [facility] Medical Records Department [address] [place] [address] History & Physical Exam 08/09/24 1400 MR#: [id number] Acct: [id number] Name: LAYLA HIGUERA Rep #:[id number] : 1950 74 From: Philip Drummond DO PCP: GABY Jewell Status:REG [facility] Location: EN HPI - General General Date of Admission: 08/09/24 Date of Service: 08/09/24 Chief Complaint: Esophageal dysphagia HPI Narrative LAYLA HIGUERA, is a 74 F who presents today for esophageal manometry due toworsening esophageal dysphagia and intermittent chest pain. 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 Arterial vascular disease Bilateral buttock pain [...] accident) (09/2014) Atherosclerosis of coronary artery of [place] heart without angina pectoris History of non-ST elevation myocardial infarction (NSTEMI) (06/2018) Essential (primary) hypertension Overactive bladder Anxiety Tobacco abuse Diabetes Hyperlipidemia Home Medications ?Medication ?Instructions ?Recorded ?Last Taken ?Type aspirin 81 mg tablet,delayed 81 mg PO DAILY@0800 [facility] 06/14/18 2 Days Ago History release ~02/21/21 [...] Drummond DO> Cosigner Signature (if applicable): CC: FAMILY COUNSELORAdrienne Sylvester; Philip Drummond DO~ Signed [facility] Work Phone: 1(841) 474-732003-11-2025 History and physical note [facility] Medical Records Department [address] [place] [address] History & Physical Exam 08/09/24 1400 MR#: [id number] Acct: [id number] Name: LAYLA HIGUERA Rep #:[id number] : 1950 74 From: Philip Drummond DO PCP: GABY Jewell Status:REG [facility] Location: EN HPI - General General Date of Admission: 08/09/24 Date of Service: 08/09/24 Chief Complaint: Esophageal dysphagia HPI Narrative LAYLA HIGUERA, is a 74 F who presents today for esophageal manometry due toworsening esophageal dysphagia and intermittent chest pain. 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 06/14/18 2 Days Ago History release ~02/21/21 [...] CC: GABY Sylvester; Philip Drummond DO~ Signed [facility]03-07-2025 [facility] Medical Records Department [address] [place] [address] History Physical Exam 08/09/24 1400 MR#: [id number] Acct: [id number] Name: LAYLA HIGUERA Rep #: [id number] : 1950 74 From: Philip Drummond DO PCP: GABY Jewell Status:[facility] Location: EN HPI - General General Date of Admission: 08/09/24 Date of Service: 08/09/24 Chief Complaint: Esophageal dysphagia HPI Narrative LAYLA HIGUERA, is a 74 F who presents today for esophageal manometry due to worsening esophageal dysphagia and intermittent chest pain. [facility] Medical History Cardiac murmur Current use of fdc anticoagulation Arterial vascular disease Bilateral buttock pain [...] accident) (09/2014) Atherosclerosis of coronary artery of [place] heart without angina pectoris History of non-ST [...] flatus, fecal incontinence, hea (more content not included)...[facility]02-07-2025 Telephone encounter Note* Telephone Encounter - Daniela Tautm LPN - 07/12/2024 11:38 AM EST Per [facility] note 07/02/24. Patient has discontinued Stiolto. Last seen by this office in February 2023. Asked pharmacy to have patient contact office and schedule follow up if she is needing this medication. Daniela Tatum LPN [facility]02-07-2025 Miscellaneous Notes* Telephone Encounter - Daniela Tatum LPN - 07/12/2024 11:38 AM EST Per [facility] note 07/02/24. Patient has discontinued Stiolto. Last seen by this office in February 2023. Asked pharmacy to have patient contact office and schedule follow up if she is needing this medication. Daniela Tatum LPN documented in this encounterUniversity [facility]als [facility]01-30-2025 Telephone encounter Note * Telephone Encounter - [...] work in the past. Wanda Reardon RN [facility]01-30-2025 Miscellaneous Notes* Telephone Encounter - Wanda Reardon [...] are negative for infection documented in this encounterUniversity Hospitals Portage [facility] Center01-30-2025 Telephone encounter Note * Telephone Encounter - Mae Raya MD - 07/04/2024 12:52 PM EST Pt previous have kenalog not clobetasol. Other than a skin protectant like A&D, there are no other creams for itching [facility]01-30-2025 Telephone encounter Note* Telephone Encounter - Mae [...] type of medication sent. Mae Diaz RN [facility]01-30-2025 Telephone encounter Note* Telephone Encounter - Wanda Reardon RN - 07/04/2024 8:43 AM EST Left message for patient to call office. Wanda Reardon RN [facility]01-30-2025 Telephone encounter Note* Telephone Encounter - Wanda Reardon RN - 07/04/2024 8:42 AM EST ----- Message from Mae Raya MD sent at 07/04/2024 8:38 AM EST ----- Please let patient know her vaginal cultures are negative for infection [facility]01-28-2025 NoteHNO ID: [id number] Author: MAE RAYA MD Service: ? Author Type: Physician Type: Progress Notes Filed: 07/02/2024 16:34 Note Text: Senior Net Software Engineer offered: Patient declines. Layla Higuera is a [...] OB History No obstetric history on file. It Account Manager History LMP: Postmenopausal Age at Menarche: Age at First : Age at Menopause: It Account Manager History Comments: Sexual Activity: Not Asked; No partner data on record Contraception: No contraception data on record PAST MEDICAL HISTORY Diagnosis Date Aortic sclerosis Aspiration pneumonia (HCC) Following CVA. CAD (coronary artery disease) COPD (chronic obstructive pulmonary disease) ([facility]) 03/18/2013 Stage 0. Normal FEV1 03/2013. 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 Stroke ([facility]) SUMMARY 10/14/2014 Ms Layla Higuera is [...] 201-250 Give 2 uni (more content not included)...[facility] 07-02-2024 History of Present illness Narrative* aMe Raya MD - 07/02/2024 3:28 PM EST Senior Net Software Engineer offered: Patient declines. Layla Higuera is a [...] OB History No obstetric history on file. It Account Manager History LMP: Postmenopausal Age at Menarche: Age at First : Age at Menopause: It Account Manager History Comments: Sexual Activity: Not Asked; No partner data on record Contraception: No contraception data on record PAST MEDICAL HISTORY Diagnosis Date Aortic sclerosis Aspiration pneumonia (HCC) Following CVA. CAD (coronary artery disease) COPD (chronic obstructive pulmonary disease) ([facility]) 03/18/2013 Stage 0. Normal FEV1 03/2013. 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 Stroke (HCC) SUMMARY 10/14/2014 Ms Layla [...] needles, DISPOSABLE, (PEN NEEDLE) 31 gauge x /16 Use one needle per dose. 4 per [...] discussed with the Patient or Patient's Authorized Heavy Equipment Plumbing Supervisor. As applicable, any other physician, advance practice provider, medical student, or other health professional student that will be observing or involved in the sensitive examination for educational or training purposes was discussed with the Patient or Authorized Heavy Equipment Plumbing Supervisor. The Patient or Authorized Heavy Equipment Plumbing Supervisor has agreed to proceed with the sensitive [...] ABDOMEN: Deferred PELVIC: normal Bartholin's glands, urethra, Antelope's glands, no cervical lesions, physiologic discharge present, [...] Future Mae Raya MD documented in this encounterUniversity Hospitals Port[facility] Center12-10-2024 Evaluation note* Diagnosis Onset Date Resolution Status [...] August 1:03pm Obesity chronic September 02 1:03pm [facility] Work Phone: 1(140) 634-277011-19-2024 Evaluation note* Diagnosis Onset Date Resolution Status [...] 13, 2 025 2:47pm Bloating chronic June 13 2 025 2:47pm Constipation chronic June 13, 2024 2:47pm Pancreatitis inactive June 13, 2024 2:47pm Dysphagia acute August 09 1:18pm [facility] Work Phone: 1(362) 389-132004-23-2024 NoteHNO ID: [id number] Author: AGUSTINA HIRSCH MD Service: ? Author Type: Physician Type: Progress Notes Filed: 09/26/2023 15:45 Note Text: Senior Net Software Engineer offered: Patient declines. Layla Higuera is a 73 year old female who presents for problem visit. HPI: Patient presents with vulvar irritation for 1 year. She reports taking florajens. She changes a pull up about 3 times per day. She is not using any creams currently. Also she has been told that she has prolapse. 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 It Account Manager History LMP: Postmenopausal Age at Menarche: Age at First : Age at Menopause: It Account Manager History Comments: Sexual Activity: Not Asked; No partner data on record Contraception: No contraception data on record PAST MEDICAL HISTORY Diagnosis Date Aortic sclerosis Aspiration pneumonia (HCC) Following CVA. CAD (coronary artery disease) COPD (chronic obstructive pulmonary disease) ([facility]) 03/18/2013 Stage 0. Normal FEV1 03/2013. 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 Stroke ([facility]) SUMMARY 10/14/2014 Ms Layla Higuera is [...] by mouth once luisito (more content not included)...[facility]04-23-2024 History of Present illness Narrative* Agustina Hirsch MD - 09/26/2023 2:48 PM EDT Senior Net Software Engineer offered: Patient declines. Layla Higuera is a 73 year old female who presents for problem visit. HPI: Patient presents with vulvar irritation for 1 year. She reports taking florajens. She changes a pull up about 3 times per day. She is not using any creams currently. Also she has been told that she has prolapse. 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 It Account Manager History LMP: Postmenopausal Age at Menarche: Age at First : Age at Menopause: It Account Manager History Comments: Sexual Activity: Not Asked; No partner data on record Contraception: No contraception data on record PAST MEDICAL HISTORY Diagnosis Date Aortic sclerosis Aspiration pneumonia (HCC) Following CVA. CAD (coronary artery disease) COPD (chronic obstructive pulmonary disease) ([facility]) 03/18/2013 Stage 0. Normal FEV1 03/2013. 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 Stroke ([facility]) SUMMARY 10/14/2014 Ms Layla Higuera is [...] Low Agustina Hirsch MD documented in this encounterUniversity Hospitals Portage Medical Center11-13-2023 Miscellaneous Notes* Telephone Encounter - May Baird APRN.CNP - 04/17/2023 4:38 PM EST Called patient regarding recent low dose CT scan results and plan of care. Category 2- Pt to return to lung cancer screening in 1 year. All questions answered and the patient is comfortable with the plan. May Baird APRN.CNP documented in this encounterUniversity Hospitals Portage Medical Center11-10-2023 Miscellaneous Notes* Telephone Encounter - May Baird APRN.CNP - 04/14/2023 10:19 AM EST Called patient regarding recent low dose CT scan results and plan of care. Category 2- Pt to return to lung cancer screening in 1 year. No answer and unable to leave a message due to no voicemail being set up. May Baird APRN.CNP documented in this encounterUniversity Hospitals Portage Medical Center11-09-2023 History of Present illness Narrative* Shirley Quintana [...] 13, 2023 4:12 PM documented in this encounterUniversity Hospitals Portage Medical Center10-10-2023 Instructions* Patient Instructions* Kanika Del Cid APRN.CNP [...] to endocrinology. Others Lung Cancer Screening hotline: [phone] Lung Cancer Screening [phone] Billing Questions: or [email or web address] Lung Cancer Screening Team: Inés Patel CNP; Lety Cervantes PA-C; Shirley Beltre CNP; Karly Kent CNP, Verena Villanueva PA-C, Linda Arriaga PA-C, Kanika Del Cid ZOO CARETAKER : [phone] documented in this encounterUniversity Hospitals Portage Medical Center10-10-2023 History of Present illness Narrative* Kanika Del [...] 50% of waking hrs. Modified Medical Research [place] Dyspnea Scale (MMRC) On level ground I walk slower than people of the same age because of breathlessness, or have to stop for breath when walking at my own pace 2 PAST MEDICAL HISTORY Diagnosis Date Aortic sclerosis Aspiration pneumonia (HCC) Following CVA. CAD (coronary artery disease) COPD (chronic obstructive pulmonary disease) ([facility]) 03/18/2013 Stage 0. Normal FEV1 03/2013. 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 Stroke ([facility]) SUMMARY 10/14/2014 Ms Layla Higuera is [...] needles, DISPOSABLE, (PEN NEEDLE) 31 gauge x /16 Use one needle per dose. 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 Race: White 6. Education: High School [...] Immunization History Administered Date(s) Administered COVID-19 vaccine ([employer]) 02/17/2021 COVID-19 vaccine, age 12+ yr, bivalent [...] DATE OF EXAM: Jan 25 2019 9:42PM [facility] 0539 - CT CHEST W IVCON / [...] evidence of acute abnormality. No thoracic adenopathy. Rotary Lithographic Press Operator: PSCB Transcribe Date/Time: Jan 25 2019 9:47P [...] Function Testing: SPIROMETRY WITH DILATOR IF OBSTRUCTED ([id number]) - ordered on 02/21/23 [facility] [address], [place] [address] Test Date: 2023-02-21 Pat Name: LAYLA HIGUERA Department: Room: Gender: Female Gastroenterology Teacher: : 1950 Requested By: Order Number: [id number] Reading MD: Gladys Baird MD Interpretive Statements ATS/ERS acceptability and repeatability standards for spirometry met. DLCO-ATS/ERS acceptability and repeatability standards for DLCO met. IMPRESSION: Spirometry shows no large airway obstruction.The FVL show small airways obstruction. The diffusing capacity is normal. Electronically Signed On 02-21-2023 16:56:25 EDT by Gladys Baird MD ID: [id number] Name: LAYLA HIGUERA Race: White Ht: 58.27 [...] 2.70 FEF50/FIF50 0.49 90-100 FIVC (L) 1.85 KPL17-90 (L/sec) 0.89 0.68 1.53 2.76 58 Time [...] Six year risk for lung cancer: 4.71% Https://[email or web address]://youtu.[email or web address]/[email or web address] I have determined that the patient [...] remaining abstinent from tobacco. Kanika Del Cid APRN.LUIS NPI #: March 14, 2023 10:13 AM documented in this encounterUniversity Hospitals Portage Medical Center10-05-2023 History of Present illness Narrative* Jonathon Carpio MD - 03/09/2023 3:32 PM EDT Jonathon Carpio MD Department of Orthopaedics Orthopaedics [facility] [address] Dept: [phone] Dept March 09, 2023 CHIEF COMPLAINT: New [...] IMAGING: IMPRESSION: Mild to moderate degenerative changes. Rotary Lithographic Press Operator: EDUARDO Transcribe Date/Time: Mar 12 2023 10:36A [...] artery disease) COPD (chronic obstructive pulmonary disease) ([facility]) 03/18/2013 Stage 0. Normal FEV1 03/2013. 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 Stroke ([facility]) SUMMARY 10/14/2014 Ms Layla Higuera is [...] anxiety) Jonathon Carpio MD documented in this encounterUniversity Hospitals Portage Medical Center10-05-2023 History of Present illness Narrative* Radha Cabrera [...] 09, 2023 3:24 PM documented in this encounterUniversity Hospitals Portage Medical Center09-19-2023 History of Present illness Narrative* Gladys Baird MD - 02/21/2023 3:15 PM EDT Images from the original note were not included. . Res[facility] [place] Note Patient name: Layla Higuera PCP: Taras [...] DATE OF EXAM: Jan 25 2019 9:42PM [facility] 0539 - CT CHEST W IVCON / [...] HISTORY Diagnosis Date Aortic sclerosis Aspiration pneumonia ([facility]) Following CVA. CAD (coronary artery disease) COPD (chronic obstructive pulmonary disease) ([facility]) 03/18/2013 Stage 0. Normal FEV1 03/2013. 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 Stroke ([facility]) SUMMARY 10/14/2014 Ms Layla Higuera is [...] needles, DISPOSABLE, (PEN NEEDLE) 31 gauge x 10/18 Use one needle per dose. 4 per [...] lung cancer screening Gladys Baird MD [facility] [place] documented in this encounterUniversity Hospitals Portage Medical Center09-19-2023 History of Present illness Narrative* Maci Herring RPFT - 02/21/2023 2:36 PM EDT PULM FUNCTION SMARTBLOCK: Provider: Gladys Baird MD Assisting Tech: Maci Herring RPFT Spirometry: 1 DLCO: 1 documented in this encounterUniversity Hospitals Portage Medical Center08-30-2023 Miscellaneous Notes* Telephone Encounter - Martha Colin [...] to her appointment tomorrow. documented in this encounterUniversity Hospitals Portage Medical Center06-06-2023 NotePap Smear Specimen AdequacyJune 2022 3:02pmComment.Satisfactory for evaluation. No endocervical component is identified.[facility] INTERFACED A#[id number] HospitalCommymichigan medical center sault on above:Satisfactory for evaluation. No endocervical component is identified.11-08-2022 NotePap Smear Specimen AdequacyJune 2022 3:02pmComment.Satisfactory for evaluation. No endocervical component is identified.[facility] INTERFACED A#[id number] HospitalCommymichigan medical center sault on above:Satisfactory for evaluation. No endocervical component is identified. 11-08-2022 NotePap Smear Specimen AdequacyJune 2022 3:02pmComment. Satisfactory for evaluation. No endocervical component is identified.[facility] INTER[facility]ACED A#[id number] HospitalCommymichigan medical center sault on above:Satisfactory for evaluation. No endocervical component is identified.11-08-2022 NotePap Smear Specimen AdequacyJune 2022 3:02pmComment.Satisfactory for evaluation. No endocervical component is identified.[facility] INTERFACED A#[id number] HospitalCommymichigan medical center sault on above:Satisfactory for evaluation. No endocervical component is identified.11-08-2022 NotePap Smear Specimen AdequacyJune 2022 3:02pmComment.Satisfactory for evaluation. No endocervical component is identified.[facility] INTERFACED A#[id number] HospitalCommymichigan medical center sault on above:Satisfactory for evaluation. No endocervical component is identified. 07-12-2022 History and physical note Author Philip Drummond [facility] July 12, 2022 11:56am Note Date/Time July 12, 2022 1 1:56am [facility] Medical Records Department [address] [place] [address] History & Physical Exam 07/12/22 1156 MR#: [id number] Acct: [id number] Name: LAYLA HIGUERA Rep #:[id number] : 1950 72 From: Philip Drummond DO PCP: Dr. Taras Green MD Status:REG [place] Location: [place] [address] History and Physical Date of Admission: 07/12/22 71 F who presents to the office today for?Follow up visit. Layla established with this clinic 03.11.21 following [facility] hospitalization. Gastroenterology saw rolanda an outpatient [...] with referral from PCP. She presented to [facility] ED .09.24 for abdominal cramping and inability to have [...] HPI otherwise normal.) Quality Reporting Tobacco Screening ([facility] 138) Smoking Status: Former smoker Assessment and [...] no clinicalchanges since date of exam. 07/12/22 6869 <Electronically signed by Philip Drummond DO> Cosigner Signature (if applicable): CC: Dr. Taras Green MD; Philip Drummond DO~ Signed [facility] Work Phone: 1(462) 949-378602-07-2023 Procedure [facility] 07-12-2022 Procedure [facility]02-07-2023 Procedure note [facility]02-07-2023 Procedure [facility] 05-13-2022 Miscellaneous Notes* Telephone Encounter - Inés Babulski, RN - 10/15/2021 4:19 PM EDT Pt [...] No PEN NEEDLE, DIABETIC 31 GAUGE X / 120 Each 11 Sig: Use one needle [...] you. Inés Nuñez RN documented in this encounterUniversity Hospitals Portage Medical Center03-13-2019 History of Past illness Narrative* Problem Noted [...] of this encounter (statuses as of 10/16/2021) [facility]03[facility] History of Past illness Narrative* Problem Noted [...] of this encounter (statuses as of 02/02/2023) [facility] History of Past illness Narrative* Problem Noted [...] of this encounter (statuses as of 02/22/2023) [facility] History of Past illness Narrative* Problem Noted [...] of this encounter (statuses as of 02/22/2023) [facility] History of Past illness Narrative* Problem Noted [...] of this encounter (statuses as of 03/14/2023) [facility] History of Past illness Narrative* Problem Noted [...] of this encounter (statuses as of 04/03/2023) [facility]03[facility] History of Past illness Narrative* Problem Noted [...] of this encounter (statuses as of 04/09/2023) [facility]03-13[facility]2019 History of Past illness Narrative* Problem Noted [...] of this encounter (statuses as of 04/14/2023) [facility] History of Past illness Narrative* Problem Noted [...] of this encounter (statuses as of 04/14/2023) [facility] History of Past illness Narrative* Problem Noted [...] of this encounter (statuses as of 04/18/2023) [facility] History of Past illness Narrative* Problem Noted [...] of this encounter (statuses as of 07/10/2023) [facility] Diagnosis Mixed hyperlipidemia Type 2 diabetes mellitus with diabetic neuropathy, with long-term current use of insulin (HCC) [facility] Diagnosis Onset Date Resolution Status Chest pain acute Atherosclerosis of coronary artery of [place] heart without angina pectoris chronic Essential (primary) hypertension chronic Hyperlipidemia chronic H/O coronary artery bypass surgery May 30, 2018 resolved Atherosclerosis of coronary artery of [place] heart without angina pectoris chronic Essential (primary) hypertension chronic Hyperlipidemia chronic Contact with or suspected ex posure to other viral communicable disease [facility] Work Phone: Evaluation note* Diagnosis Onset Date Resolution Status Atherosclerosis of coronary artery of [place] heart without angina pectoris chronic Essential (primary) hypertension chronic Hyperlipidemia chronic Contact with or suspected ex posure to other viral communicable disease [facility] Work Phone: Evaluation note* Diagnosis Onset Date Resolution Status Closed fracture of distal phalanx of right thumb noneactive Atherosclerosis of coronary artery of [place] heart without angina pectoris chronic Essential (primary) [...] of distal phalanx of right thumb noneactive [facility] Work Phone: Evaluation note* Diagnosis Onset Date Resolution Status Pancreatitis acute Bloating chronic Constipation chronic Closed fracture of distal phalanx of right thumb noneactive Closed fracture of distal phalanx of right thumb noneactive [facility] Work Phone: Evaluation note* Diagnosis Onset Date Resolution Status Closed fracture of distal phalanx of right thumb noneactive [facility] Work Phone: Evaluation note* Diagnosis Onset Date Resolution Status Closed fracture of distal phalanx of right thumb noneactive Chest pain acute MAURICIO (dyspnea on exertion) ac [place] Atherosclerosis of coronary artery of [place] heart without angina pectoris chronic Essential (primary) hypertension chronic Hyperlipidemia [facility] Work Phone: Evaluation note* Diagnosis Onset Date Resolution Status Chest pain acute MAURICIO (dyspnea on exertion) ac [place] Atherosclerosis of coronary artery of [place] heart without angina pectoris chronic Essential (primary) hypertension chronic Hyperlipidemia [facility] Work Phone: Evaluation note* Diagnosis Onset Date Resolution Status Chest pain acute MAURICIO (dyspnea on exertion) ac [place] Atherosclerosis of coronary artery of [place] heart without angina pectoris chronic Essential (primary) hypertension chronic Hyperlipidemia chronic Acute sinusitis acute Nausea acute Yeast vaginitis acute [facility] Work Phone: Evaluation note* Diagnosis Onset Date Resolution Status Acute sinusitis acute Nausea acute Yeast vaginitis acute [facility] Work Phone: Evaluation note* Diagnosis Onset Date Resolution Status Bradycardia acute Atherosclerosis of coronary artery of [place] heart without angina pectoris chronic Essential (primary) hypertension chronic Hyperlipidemia chronic Nausea acute Bloating chronic Constipation [facility] Work Phone: Evaluation note* Diagnosis Onset Date Resolution Status Bradycardia acute Atherosclerosis of coronary artery of [place] heart without angina pectoris chronic Essential (primary) hypertension chronic Hyperlipidemia chronic Nausea acute Bloating chronic Constipation chronic Arterial vascular disease ch ronic Bilateral buttock pain chron ic Former smoker chronic Lumbar back pain [facility] Work Phone: Evaluation note* Diagnosis Onset Date Resolution Status Bradycardia acute Atherosclerosis of coronary artery of [place] heart without angina pectoris chronic Essential (primary) hypertension chronic Hyperlipidemia chronic Nausea acute Bloating chronic Constipation chronic Arterial vascular disease ch ronic Bilateral buttock pain chron ic Current use of fdc anticoagulation chronic Former smoker chronic Lumbar back pain [facility] Work Phone: Evaluation note* Diagnosis Chronic obstructive pulmonary disease, unspecified COPD type (HCC) [facility] Diagnosis Chronic obstructive pulmonary disease, unspecified COPD type (HCC) [facility] Diagnosis COPD, mild (HCC)- Primary Chronic airway obstruction, not elsewhere classified Former cigarette smoker Personal history of tobacco use, presenting hazards to health [facility]* Diagnosis Encounter for screening for lung cancer- Primary Former cigarette smoker Personal history of tobacco use, presenting hazards to health [facility] Diagnosis Onset Date Resolution Status Arterial vascular disease ch ronic Bilateral buttock pain chron ic Current use of fdc anticoagulation chronic Former smoker chronic Lumbar back pain [facility] Work Phone: Evaluation note* Diagnosis Bilateral carpal tunnel syndrome- Primary Carpal tunnel syndrome [facility]* Diagnosis Bilateral hand pain Pain in limb [facility]* Diagnosis Former cigarette smoker Personal history of tobacco use, presenting hazards to health documented in this encounter [facility] note* Diagnosis Former smoker- Primary Personal history of tobacco use, presenting hazards to health documented in this encounter [facility] note* Diagnosis Lung nodules- Primary Other nonspecific abnormal finding of lung field Former smoker Personal history of tobacco use, presenting hazards to health documented in this encounter [facility] note* Diagnosis Onset Date Resolution Status Nausea acute Bloating chronic Constipation chronic Chest pain acute Diminished pulses in lower extremity acute Atherosclerosis of coronary artery of [place] heart without angina pectoris chronic Essential (primary) hypertension chronic Hyperlipidemia chronic H/O coronary artery bypass surgery May 30, 2018 resolved [facility] Work Phone: Evaluation note* Diagnosis Onset Date Resolution Status Chest pain acute Diminished pulses in lower extremity acute Atherosclerosis of coronary artery of [place] heart without angina pectoris chronic Essential (primary) hypertension chronic Hyperlipidemia chronic H/O coronary artery bypass surgery May 30, 2018 resolved [facility] Work Phone: Evaluation noteNo assessment information available [facility] Work Phone: Evaluation note* Diagnosis Vulvar dermatitis- Primary Other inflammatory disease of cervix, vagina and vulva Cystocele, midline documented in this encounter [facility] note* Diagnosis Vaginal itching- Primary Pruritus of genital organs Cystocele, midline [facility] Discharge instructionsAdditional Instructions Please follow-up with your assistant unit forester as well as your family physician for further evaluation especially if the symptoms persist. Your workup today was very reassuring. You did have intermittent slow heart rate called bradycardia. Please talk to your assistant unit forester about this.[facility] Work Phone: Reason for referral (narrative)* Outpatient Procedure (Routine) - Authorized Specialty Diagnoses / Procedures Referred By Dimas higgins Referred To [facility] Diagnoses Bilateral carpal tunnel syndrome Procedures EMG(NEURO/NI) NERVE CONDUCTION STUDIES 9-10 STUDIES Jonathon Carpio MD [address] [place] [address] [facility] [place] [address] [place] [address] Referral ID Status Reason Start Date Expiration Date Visits Requested Visits Authorized [id number] Authorized Auto-Generat ed Referral 03/09/2023 03/09/2024 1 1 [facility] for referral (narrative)* Diagnostic Procedure Only (Routine) - Closed Specialty Diagnoses / Procedures Referred By Contac t Referred To Contact XR IMAGING Diagnoses Bilateral hand pain Procedures XR HAND GENERAL 3V PA/LAT/OBL BILATERAL RADEX HAND MINIMUM 3 VIEWS Jonathon Carpio MD [address] [place] [address] Xr Imaging [id number] Referral ID Status Reason Start Date Expiration Date V isits Requested Visits Authorized [id number] Closed Auto-Generate d Referral 03/01/2023 03/30/2024 1 1 [facility] for referral (narrative)No reason for referral [facility] Work [facility]: reason for visit Narrative* Diagnostic Procedure Only (Routine) - Closed Specialty Diagnoses / Procedures Referred By Contac t Referred To Contact XR IMAGING Diagnoses Bilateral hand pain Procedures XR HAND GENERAL 3V PA/LAT/OBL BILATERAL RADEX HAND MINIMUM 3 VIEWS Jonathon Carpio MD [address] [place] [address] Xr Imaging [id number] Referral ID Status Reason Start Date Expiration Date V isits Requested Visits Authorized [id number] Closed Auto-Generate d Referral 03/01/2023 03/30/2024 1 1 [facility] Summary Purpose Family History No Family History Records Found Relationship Condition Age at Onset Recorded Date/T [...] Unknown April 12, 2024 2:32pm Advance Directives No Advanced Directives Records FoundDocuments on File Type Date 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 Advance Directives and Living Will Power of Manager Of Pharmacy Documents on File Type Date 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 Advance Directive(s) 01/25/2019 8:28 PM Advance Directive(s) 08/14/2018 5:53 PM Advance Directive Response Recorded Date/ Time Advance Directives No September 12 10:52pm Living Will No July 15 4:46pm Power of Manager Of Pharmacy No July 15, 2021 4:46pm Advance Directive Response Recorded Date/ Time Advance Directives No September 12 10:52pm Living Will No November 06, 2021 1 0:13am Power of Manager Of Pharmacy No November 06, 2021 10:13am Advance Directive Response Recorded Date/ Time Advance Directives No September 12 9:52pm Living Will No November 06, 2021 9 :13am Power of Manager Of Pharmacy No November 06, 2021 9:13am Advance Directive Response Recorded Date/ Time Advance Directives No September 12 9:52pm Living Will No July 08 1:58pm Power of Manager Of Pharmacy No July 08, 2022 1:58pm Advance Directive Response Recorded Date/ Time Advance Directives No September 12 10:52pm Living Will No July 08 2:58pm Power of Manager Of Pharmacy No July 08, 2022 2:58pm Advance Directive Response Recorded Date/ Time Living Will No July 08 2:58pm Power of Manager Of Pharmacy No July 08, 2022 2:58pm Living Will No October 25, 2023 2 :50pm Power of Manager Of Pharmacy Yes October 25, 2023 2:50pm Advance Directives No April 12, 2024 2:32pm Advance Directive Response Recorded Date/ Time Living Will No October 25, 2023 2 :50pm Do you have a Healthcare Power of Manager Of Pharmacy? Yes October 25, 2023 2:50pm Advance Directives No April 12, 2024 2:32pm Advance Directive Response Recorded Date/ Time Living Will No July 08 2:58pm Do you have a Healthcare Power of Manager Of Pharmacy? No July 08, 2022 2:58pm Advance Directives No April 12, 2024 2:32pm Advance Directive Response Recorded Date/ Time Living Will No July 08 2:58pm Do you have a Healthcare Power of Manager Of Pharmacy? No July 08, 2022 2:58pm Do you have a Healthcare Power of Manager Of Pharmacy? No December 31, 2024 4:03pm Advance Directives [...] be sent through Care Everywhere. * Sinusitis (Israeli) * Sinus Rinse (Israeli) documented in this encounter* Attachments The following attachments cannot be sent through Care Everywhere. * SOB (Shortness of Breath) ([place]i) documented in this encounter Chief Complaint and Reason for Visit Chief Complaint 1 Y FU NUMBNESS & TINGLING CHEST PAIN CHEST PAIN CHEST PAIN SCREENING right thumb 6 wk FU RIGHT THUMB xray RIGHT THUMB xray Right thumb xray CEPHEID TEST RT DISPL OBLIQUE FX THUMB,ARTH RT THUMB IP JNT/RX Reason for Visit Chest pain Atherosclerosis of coronary artery of [place] heart without angina pectoris Essential (primary) hypertension Hyperlipidemia H/O coronary artery bypass surgery Atherosclerosis of coronary artery of [place] heart without angina pectoris Essential (primary) hypertension [...] Chest pain Atherosclerosis of coronary artery of [place] heart without angina pectoris Essential (primary) hypertension Hyperlipidemia H/O coronary artery bypass surgery Atherosclerosis of coronary artery of [place] heart without angina pectoris Essential (primary) hypertension Hyperlipidemia Contact with or suspected exposure to other viral communicable disease Chief Complaint CHEST PAIN CHEST PAIN CHEST PAIN SCREENING right thumb 6 wk FU RIGHT THUMB xray RIGHT THUMB xray Right thumb xray CEPHEID TEST RT DISPL OBLIQUE FX THUMB,ARTH RT THUMB IP JNT/RX constipation Reason for Visit Atherosclerosis of c oronary artery of [place] heart without angina pectoris Essential (primary) hypertension [...] right thumb Atherosclerosis of coronary artery of [place] heart without angina pectoris Essential (primary) hypertension [...] on exertion) Atherosclerosis of coronary artery of [place] heart without angina pectoris Essential (primary) hypertension Hyperlipidemia Chief Complaint BILAT LOWER 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 LOWER Type 2 diabetes mellitus with diabetic 6 M FU E-ORDER Reason for Visit Chest pain MAURICIO (dyspnea on exertion) Atherosclerosis of coronary artery of [place] heart without angina pectoris Essential (primary) hypertension Hyperlipidemia Chief Complaint BILAT LOWER 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 LOWER Type 2 diabetes mellitus with diabetic 6 M FU E-ORDER Urinary tract infection Reason for Visit Chest pain MAURICIO (dyspnea on exertion) Atherosclerosis of coronary artery of [place] heart without angina pectoris Essential (primary) hypertension Hyperlipidemia Acute sinusitis Nausea Yeast vaginitis Chief Complaint 6 M FU E-ORDER Urinary tract infection Reason for Visit Chest pain MAURICIO (dyspnea on exertion) Atherosclerosis of coronary artery of [place] heart without angina pectoris Essential (primary) hypertension Hyperlipidemia Acute sinusitis Nausea Yeast vaginitis Chief Complaint Urinary tract infect ion SCREENING Reason for Visit Acute sinusitis Nausea Yeast vaginitis Chief Complaint SCREENING 1 Y FU 2 WK FU NAUSEA Type 2 diabetes mellitus with hyperglycemia Reason for Visit Bradycardia Atherosclerosis of coronary artery of [place] heart without angina pectoris Essential (primary) hypertension Hyperlipidemia Nausea Bloating Constipation Chief Complaint SCREENING 1 Y FU 2 WK FU NAUSEA Type 2 diabetes mellitus with hyperglycemia MASTODYNIA Reason for Visit Bradycardia Atherosclerosis of coronary artery of [place] heart without angina pectoris Essential (primary) hypertension Hyperlipidemia Nausea Bloating Constipation Chief Complaint SCREENING 1 Y FU 2 WK FU NAUSEA Type 2 diabetes mellitus with hyperglycemia MASTODYNIA LIPOMA OF BUTTOCKS Reason for Visit Bradycardia Atherosclerosis of coronary artery of [place] heart without angina pectoris Essential (primary) hypertension Hyperlipidemia Nausea Bloating Constipation Arterial vascular disease Bilateral buttock pain Former smoker Lumbar back pain Chief Complaint SCREENING 1 Y FU 2 WK FU NAUSEA Type 2 diabetes mellitus with hyperglycemia MASTODYNIA LIPOMA OF BUTTOCKS CHEST PAIN Reason for Visit Bradycardia Atherosclerosis of coronary artery of [place] heart without angina pectoris Essential (primary) hypertension Hyperlipidemia Nausea Bloating Constipation Arterial vascular disease Bilateral buttock pain Current use of fdc anticoagulation Former smoker Lumbar back pain Chief Complaint MASTODYNIA LIPOMA OF BUTTOCKS CHEST PAIN CP CHRONIC SINUSITIS LEFT AND RIGHT SUPEROLATERAL BUTTOCK Reason for Visit Arterial vascular di sease Bilateral buttock pain 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 Former smoker Lumbar back pain Chief Complaint CHRONIC SINUSITIS LEFT AND RIGHT SUPEROLATERAL BUTTOCK 4 MO FU CP PER PETER PT NEEDS PM APT (SCANNED) DECREASED PEDAL PULSES CARPAL TUNNEL, BILATERAL Carpal tunnel syndrome, bilateral upper limbs CARPAL TUNNEL, BILATERAL Reason for Visit Nausea Bloating Constipation Chest pain Diminished pulses in lower extremity Atherosclerosis of coronary artery of [place] heart without angina pectoris Essential (primary) hypertension [...] lower extremity Atherosclerosis of coronary artery of [place] heart without angina pectoris Essential (primary) hypertension [...] lower extremity Atherosclerosis of coronary artery of [place] heart without angina pectoris Essential (primary) hypertension [...] 3pm Chief Complaint Admit Date 4 M , RS 07/18September 02, 2024 1:0 3pm FU [...] 2:49pm Chief Complaint Admit Date 4 M , RS 07/18September 02, 2024 1:0 3pm FU [...] artery bypass surgery December 10, 2024 1:55pm Chief Complaint Admit Date October 03, 2024 2:49pm 1 Y FU December 10, 2024 1:55p m SCREENING December 31, 2024 3:18 pm LEFT HAND PAIN December 31, 2024 3:49 pm Reason for Visit Admit Date Dysphagia October 03, 2024 2:49pm Constipation October 03, 2024 2:49pm Essential (primary) hypertension December 1:55pm Fatigue December 10, 2024 1:55p m Hyperlipidemia December 10, 2024 1:55p m H/O coronary artery bypass surgery December 10, 2024 1:55pm Chief Complaint Admit Date October 03, 2024 2:49pm 1 Y December 10, 2024 1:55p m SCREENING December 31, 2024 3:18 pm LEFT HAND PAIN December 31, 2024 3:49 pm S/P [facility] 12/31January 14, 2025 12 :58pm Reason for Visit Admit Date Dysphagia October 03, 2024 2:49pm Constipation October 03, 2024 2:49pm Essential (primary) hypertension December 1:55pm Fatigue December 10, 2024 1:55p m Hyperlipidemia December 10, 2024 1:55p m H/O coronary artery bypass surgery December 10, 2024 1:55pm Essential (primary) hypertension January 14, 2025 12:58pm Fatigue January 14, 2025 12 :58pm Hyperlipidemia January 14, 2025 12 :58pm H/O coronary artery bypass surgery [facility] 2024 12:58pm Chief Complaint Admit Date October 03, 2024 2:49pm 1 Y December 10, 2024 1:55p m SCREENING December 31, 2024 3:18 pm LEFT HAND PAIN December 31, 2024 3:49 pm S/P [facility] 12/31January 14, 2025 12 :58pm 3 M FU January 15, 2025 2: 47pm Reason for Visit Admit Date Dysphagia October 03, 2024 2:49pm Constipation October 03, 2024 2:49pm Essential (primary) hypertension December 1:55pm Fatigue December 10, 2024 1:55p m Hyperlipidemia December 10, 2024 1:55p m H/O coronary artery bypass surgery December 10, 2024 1:55pm Essential (primary) hypertension January 14, 2025 12:58pm Fatigue January 14, 2025 12 :58pm Hyperlipidemia January 14, 2025 12 :58pm H/O coronary artery bypass surgery Aug[facility] t 2024 12:58pm 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, 2025 2: 47pm Dysphagia January 15, 2025 2: 47pm Bloating January 15, 2025 2: 47pm Constipation January 15, 2025 2: 47pm Reason for Referral Specialty Diagnoses / Procedures Referred By Dimas t Referred To Contact CT IMAGING Diagnoses Former cigarette smoker Procedures CT LUNG SCREEN WO IVCON COMPUTED TOMOGRAPHY THORAX LW DOSE LNG CA SCR Kanika Wright, WARRANT SERVER[employer] CARETAKER [address] [place] [id number] [facility] [place] [address] Referral ID Status Reason Start Date Expiration Date Visits Requested Visits Authorized [id number] Additional Clinical Info Needed Auto-Generat ed Referral 3 04/12/2024 1 1 Specialty Diagnoses / Procedures Referred By Dimas t Referred To Contact CT IMAGING Diagnoses Former smoker Procedures CT LUNG SCREEN WO IVCON COMPUTED TOMOGRAPHY THORAX LW DOSE LNG CA SCR May Boss, 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 60 MINUTES Mae Raya MD [address] [place] [address] Referral ID Status Reason Start Date Expiration Date Visits Requested Visits Authorized [id number] Authorized PCP Requested Referral Auto-Generate d Referral 07/02/2024 07/02/2025 1 1 Additional Source Comments INFORMATION SOURCE (unrecogn ized section and content) DATE CREATED AUTHOR 01/10/2019 [facility] DATE CREATED AUTHOR AUTHOR'S ORGANIZ ATION 05/18/2019 [facility] DATE CREATED AUTHOR AUTHOR'S ORGANIZ ATION 04/03/2020 [facility] DATE CREATED AUTHOR AUTHOR'S ORGANIZ ATION 11/18/2020 [facility] ([place]) DATE CREATED AUTHOR AUTHOR'S ORGANIZ ATION 02/25/2023 [facility] DATE CREATED AUTHOR AUTHOR'S ORGANIZ ATION 07/06/2024 [facility] DATE CREATED AUTHOR AUTHOR'S ORGANIZ ATION 01/16/2025 [facility] Reason for Visit (unrecogniz ed section and content) Reason Comments Cough Facial Pain Reason Comments Shortness of Breath Reason Onset Date Comments Refill Request 10/15/2021 Reason Comments Chart prep Reason Comments Spirometry Specialty Diagnoses / Procedures Referred By Contac t Referred To Contact [facility] Diagnoses Chronic obstructive pulmonary disease, unspecified COPD type (HCC) Procedures SPIROMETRY WITH DILATOR IF OBSTRUCTED BRNCDILAT RSPSE SPMTRY PRE&POST-BRNCDILAT ADMN Gladys Baird MD [address] [place] [address] Res[facility] [place] [address] [place] [id number] Referral ID Status Reason Start Date Expiration Date V isits Requested Visits Authorized [id number] Closed Auto-Generate d Referral 02/09/2023 03/10/2024 1 1 Specialty Diagnoses / Procedures Referred By Contac t Referred To [facility] Diagnoses Chronic obstructive pulmonary disease, unspecified COPD type (HCC) Procedures LUNG DIFFUSION CAPACITY (DLCO) DIFFUSING CAPACITY Gladys Baird MD [address] [place] [address] [address] Referral ID Status Reason Start Date Expiration Date V isits Requested Visits Authorized [id number] Closed Auto-Generate d Referral 02/09/2023 03/10/2024 1 1 Reason Comments COPD Reason Comments New Patient LCS Reason Comments New Bilateral hand painX ray today - 03/09/2023 Pain Bilateral hand painX ray today - 03/09/2023 New Pain Reason Comments Radiology CT Specialty Diagnoses / Procedures Referred By Dimas higgins Referred To Contact CT IMAGING Diagnoses Former cigarette smoker Procedures CT LUNG SCREEN WO IVCON COMPUTED TOMOGRAPHY THORAX LW DOSE LNG CA SCR C- Kanika Del Cid, WARRANT SERVER.[employer] [address] [place] [id number] Ct Imaging [place] [address] Referral ID Status Reason Start Date Expiration Date V isits Requested Visits Authorized [id number] Closed Auto-Generate d Referral 03/24/2023 06/21/2023 1 [...] or prosecute any alcohol or drug abuse patient.[facility] the event this information is protected by the Federal Confidentiality of Alcohol and Drug Abuse Patient Records regulations: The Federal rules restrict any use of the information to criminally investigate or prosecute any alcohol or drug abuse patient.[facility] Center[facility] the event this information is protected by the Federal Confidentiality of Alcohol and Drug Abuse Patient Records regulations: The Federal rules restrict any use of the information to criminally investigate or prosecute any alcohol or drug abuse patient.[facility] the event this information is protected by the Federal Confidentiality of Alcohol and Drug Abuse Patient Records regulations: The Federal rules restrict any use of the information to criminally investigate or prosecute any alcohol or drug abuse patient.[facility] CenterIn the event this information is protected by the Federal Confidentiality of Alcohol and Drug Abuse Patient Records regulations: The Federal rules restrict any use of the information to criminally investigate or prosecute any alcohol or drug abuse patient.[facility] CenterIn the event this information is protected by the Federal Confidentiality of Alcohol and Drug Abuse Patient Records regulations: The Federal rules restrict any use of the information to criminally investigate or prosecute any alcohol or drug abuse patient.[facility] CenterIn the event this information is protected by the Federal Confidentiality of Alcohol and Drug Abuse Patient Records regulations: The Federal rules restrict any use of the information to criminally investigate or prosecute any alcohol or drug abuse patient.[facility] CenterIn the event this information is protected by the Federal Confidentiality of Alcohol and Drug Abuse Patient Records regulations: The Federal rules restrict any use of the information to criminally investigate or prosecute any alcohol or drug abuse patient.[facility] CenterIn the event this information is protected by the Federal Confidentiality of Alcohol and Drug Abuse Patient Records regulations: The Federal rules restrict any use of the information to criminally investigate or prosecute any alcohol or drug abuse patient.[facility] CenterIn the event this information is protected by the Federal Confidentiality of Alcohol and Drug Abuse Patient Records regulations: The Federal rules restrict any use of the information to criminally investigate or prosecute any alcohol or drug abuse patient.[facility] CenterIn the event this information is protected by the Federal Confidentiality of Alcohol and Drug Abuse Patient Records regulations: The Federal rules restrict any use of the information to criminally investigate or prosecute any alcohol or drug abuse patient.[facility] CenterIn the event this information is protected by the Federal Confidentiality of Alcohol and Drug Abuse Patient Records regulations: The Federal rules restrict any use of the information to criminally investigate or prosecute any alcohol or drug abuse patient.[facility] CenterIn the event this information is protected by the Federal Confidentiality of Alcohol and Drug Abuse Patient Records regulations: The Federal rules restrict any use of the information to criminally investigate or prosecute any alcohol or drug abuse patient.[facility] CenterIn the event this information is protected by the Federal Confidentiality of Alcohol and Drug Abuse Patient Records regulations: The Federal rules restrict any use of the information to criminally investigate or prosecute any alcohol or drug abuse patient.[facility] CenterIn the event this information is protected by the Federal Confidentiality of Alcohol and Drug Abuse Patient Records regulations: The Federal rules restrict any use of the information to criminally investigate or prosecute any alcohol or drug abuse patient.[facility] CenterIn the event this information is protected by the Federal Confidentiality of Alcohol and Drug Abuse Patient Records regulations: The Federal rules restrict any use of the information to criminally investigate or prosecute any alcohol or drug abuse patient.[facility] CenterIn the event this information is protected by the Federal Confidentiality of Alcohol and Drug Abuse Patient Records regulations: The Federal rules restrict any use of the information to criminally investigate or prosecute any alcohol or drug abuse patient.[facility] Care Teams (unrecognized sec tion and content) Evaluation Analyst Relationship Specialty Start Date End Date Chris More MD [address] [place] [address] Physician Cardiology 08/11/18 Thee Marroquin MD [address] [place], [place] [address] Consulting Pulmonary and Critical Care Medicine 11/26/19 Team Status: Active Member Role Status Dates Susan Teague Family Provider Active Dr. Taras Green MD Primary Care Provider Active Team Status: Inactive Member Role Status Dates Dr. Taras Green MD Primary Care Provider, Referring Provider Active May Jacobs FAMILY COUNSELOR, FAMILY COUNSELOR-C Attending Provider Active Team Status: Active Member Role Status Dates Dr. Taras Green MD Primary Care Provider Active Dr. Castro Browne DPM Referring Provider, Other Pro vider Active Dr. Haja Islas DO Attending Provider Active Team Status: Active Member Role Status Dates Dr. Taras Green MD Primary Care Provider, Referring Provider Active Dr. Philip Drummond DO Attending Provider, Other Prov ider Active Team Status: Inactive Member Role Status Dates Dr. Taars Green MD Primary Care Provider Active Dr. Castro Browne DPM Attending Provider Active Team Status: Inactive Member Role Status Dates Dr. Taras Green MD Primary Care Provider, Attending Provider Active Team Status: Inactive Member Role Status Dates Dr. Taras Green MD Primary Care Provider Active May Jacobs FAMILY COUNSELOR, FAMILY COUNSELOR-C Attending Provider, Referring P tran Active Team Status: Inactive Member Role Status [...] Dr. Abdelrahman Saldana MD Active May Jacobs FAMILY COUNSELOR, FAMILY COUNSELOR-C Attending Provider Active Team Status: Inactive Member Role Status Dates Dr. Taras Green MD Primary Care Provider Active Dr. Philip Drummond DO Attending Provider, Referring Provider Active Team Status: Inactive Member Role Status Dates Dr. Taras Green MD Primary Care Provider Active GABY Hameed Attending Provider Active Team Status: Inactive Member Role Status Dates Dr. Taras Green MD Primary Care Provider, Attending Provider Active Dr. Philip Drummond , DO Other Provider Active Team Status: Inactive Member Role Status Dates Dr. Taras Green MD Primary Care Provider Active GABY Hameed Attending Provider, Referring Provi keenan Active Dr. Philip Drummond , DO Other Provider Active Team Status: Inactive Member Role Status Dates Dr. Taras Green MD Primary Care Provider, Referring Provider Active Dr. Beck Finley MD Attending Provider Active Team Status: Inactive Member Role Status Dates Dr. Taras Green MD Primary Care Provider Active Dr. Beck Finley MD Attending Provider, Referring P rokostasder Active Team Status: Active Member Role Status Dates Dr. Taras Green MD Primary Care Provider, Attending Provider Active Evaluation Analyst Relationship Specialty Start Date End Date Chris More MD [address] [place] [address] (Fax) Physician Cardiology 08/11/18 Thee Marroquin MD [address] [place], [place] [id number] Consulting Pulmonary and Critical Care Medicine 11/26/19 Evaluation Analyst Relationship Specialty Start Date End Date Peter Taras Killian [address] [place], [place] [address] PCP - General Gerontology 02/21/23 Chris More MD [address] [place] [address] (Fax) Physician Cardiology 08/11/18 Thee Marroquin MD [address] [place], [place] [address] Consulting Pulmonary and Critical Care Medicine 11/26/19 Evaluation Analyst Relationship Specialty Start Date End Date Peter Taras Killian [address] [place] [address] PCP - General Gerontology 02/21/23 Chris More MD [address] [place] [address] Physician Cardiology 08/11/18 Thee Marroquin MD [address] [place] [address] Consulting Pulmonary and Critical Care Medicine 11/26/19 Evaluation Analyst Relationship Specialty Start Date End Date Peter Taras Killian [address] [place] [address] PCP - General Gerontology 02/21/23 Chris More MD [address] [place] [phone] (Fax) Physician Cardiology 08/11/18 Thee Marroquin MD [address] [place], [place] [address] Consulting Pulmonary and Critical Care Medicine 11/26/19 Evaluation Analyst Relationship Specialty Start Date End Date Taras Green Chi [address] [facility] [address] [place] [address] PCP - General Gerontology 02/21/23 Chris More MD [address] [place] [address] (Fax) Physician Cardiology 08/11/18 Gladys Baird MD [address] [place] [address] Pulmonary and Critical Care Medicine 03/14/23 Team [...] MD Primary Care Provider Active Miriam House FAMILY COUNSELOR, FAMILY COUNSELOR-C Attending Provider, Referri ng Provider Active Team Status: Inactive Member Role Status Dates Dr. Taras Green MD Primary Care Provider Active Miriam House FAMILY COUNSELOR, FAMILY COUNSELOR-C Attending Provider, Referri ng Provider Active Evaluation Analyst Relationship Specialty Start Date End Date Taras Green Chi [address] [place], [place] [address] PCP - General Gerontology 02/21/23 Chris More MD [address] [place] [id number] Physician Cardiology 08/11/18 Thee Marroquin MD [address] [place], [place] [id number] Consulting Pulmonary and Critical Care Medicine 11/26/19 03/13/23 Evaluation Analyst Relationship Specialty Start Date End Date Taras Green Chi [address] [place] [address] PCP - General Gerontology 02/21/23 Chris More MD [address] [place], [place] [id number] Physician Cardiology 08/11/18 Thee Marroquin MD [address] [place], [place] [id number] Consulting Pulmonary and Critical Care Medicine 11/26/19 03/13/23 Evaluation Analyst Relationship Specialty Start Date End Date Taras Green Chi [address] [place] [address] PCP - General Gerontology 02/21/23 Chrsi More MD [address] [place] [address] Physician Cardiology 08/11/18 Gladys Baird MD [address] [place] [address] Pulmonary and Critical Care Medicine 03/14/23 Evaluation Analyst Relationship Specialty Start Date End Date Taras Green Chi [address] [place] [address] PCP - General Gerontology 02/21/23 Chris More MD [address] [place] [address] Physician Cardiology 08/11/18 Gladys Baird MD [address] [place] [address] Pulmonary and Critical Care Medicine 03/14/23 Evaluation Analyst Relationship Specialty Start Date End Date Taras Green Chi [address] [place] [address] PCP - General Gerontology 02/21/23 Chris More MD [address] [place] [address] Physician Cardiology 08/11/18 Gladys Baird MD [address] [address] Pulmonary and Critical Care Medicine 03/14/23 Team [...] Marely Taylor PA, PA Referring Provider Active Evaluation Analyst Relationship Specialty Start Date End Date Taras Green Chi [address] [facility] [address] [place] [address] PCP - General Gerontology 02/21/23 Chris More MD [address] [facility] [address] [place] [address] Physician Cardiology 08/11/18 Gladys Baird MD [address] [place], [place] [id number] Pulmonary and Critical Care Medicine 03/14/23 Team Status: Active Member Role Status Dates Susan MURPHY Family Provider Active Dr. Williams Starr , Primary Care Provider Active Team Status: Active Member Role Status Dates Dr. Williams Starr DO Primary Care Provider Active Dr. Princess Lackey MD Attending Provider Activ e Dr. Deshawn Camarena MD Referring Provider Activ e Team Status: Inactive Member Role Status Dates Dr. Deshawn Camarena MD Attending Provider, Refe rring Provider Active Dr. Williams Starr , Primary Care Provider Active Team Status: Inactive Member Role Status Dates Dr. Williams Starr DO Primary Care Provider Active Dr. Deshawn Camarena MD Attending Provider, Refe rring Provider Active Evaluation Analyst Relationship Specialty Start Date End Date Taras Green Chi [address] [place] [address] PCP - General Gerontology 02/21/23 Chris More MD [address] [place] [address] Physician Cardiology 08/11/18 Gladys Baird MD [address] [place] [address] Pulmonary and Critical Care Medicine 03/14/23 Evaluation Analyst Relationship Specialty Start Date End Date Taras Green Chi [address] [place] [address] PCP - General Gerontology 02/21/23 Chris More MD [address] [place] [address] Physician Cardiology 08/11/18 Gladys Baird MD [address] [place] [address] Pulmonary and Critical Care Medicine 03/14/23 Evaluation Analyst Relationship Specialty Start Date End Date Taras Green Chi [address] [place], [place] [id number] PCP - General Gerontology 02/21/23 Chris More MD [address] [place] [address] Physician Cardiology 08/11/18 Gladys Baird MD [address] [place], [place] [id number] Pulmonary and Critical Care Medicine 03/14/23 Team Status: Active Member Role Status Dates Ximena Sylvester NP-C Primary Care Provider Active Team Status: Inactive Member Role Status Dates Dr. Williams Starr DO Referring Provider Active Start: April 23, 2024 End: April 23, 2024 Marely Taylor PA, PA Attending Provider Active Start: April 23, 2024 End: April 23, 2024 Ximena Sylvester NP-C Primary Care Provider Active Start: April 23, 2024 End: April 23, 2024 Team Status: Inactive Member Role Status Dates Ximena Sylvester NP-C Primary Care Provider Active Start: May 14, 2024 End: May 14, 2024 Ximena Sylvester NP-C Referring Provider Active St art: May 14, 2024 End: May 14, 2024 Dr. Brendon Orozco MD Attending Provider Active Start: May 14, 2024 End: May 14, 2024 Team Status: Inactive Member Role Status Dates Ximena Sylvester NP-C Primary Care Provider Active Start: May 14, 2024 End: May 14, 2024 Dr. Abdelrahman Saldana MD Attending Provider Active S tart: May 14, 2024 End: May 14, 2024 Team Status: Inactive Member Role Status Dates Ximena Sylvester NP-C Primary Care Provider Active Start: May 27, 2024 End: May 27, 2024 Tere Jonah , FAMILY COUNSELOR-C Attending Provider Active Start: May 27, 2024 End: May 27, 2024 Tere Mckenzie , FAMILY COUNSELOR-C Referring Provider Active Start: May 27, 2024 End: May 27, 2024 Team Status: Inactive Member Role Status Dates Ximenaabbey Sylvester , FAMILY COUNSELOR-C Primary Care Provider Active Start: June 11, 2024 End: June 11, 2024 Ximena Sylvester , FAMILY COUNSELOR-C Attending Provider Active St art: June 11, 2024 End: June 11, 2024 Ximena Sylvester , FAMILY COUNSELOR-C Referring Provider Active St art: June 11, 2024 End: June 11, 2024 Team Status: Inactive Member Role Status Dates Ximenaabbey Sylvester , FAMILY COUNSELOR-C Primary Care Provider Active Start: June 13, 2024 End: June 13, 2024 Ximena Sylvester , FAMILY COUNSELOR-C Referring Provider Active St art: June 13, 2024 End: June 13, 2024 Dr. Philip Drummond , Attending Provider Active Start: June 13, 2024 End: June 13, 2024 Team Status: Inactive Member Role Status Dates Ximenaabbey Sylvester , FAMILY COUNSELOR-C Primary Care Provider Active Start: August 09, 2024 End: August 09, 2024 Ximena Sylvester , FAMILY COUNSELOR-C Referring Provider Active St art: August 09, 2024 End: August 09, 2024 Dr. Philip Drummond DO Attending Provider Active Start: August 09, 2024 End: August 09, 2024 Team Status: Active Member Role Status Dates Ximena Sylvester , FAMILY COUNSELOR-C Primary Care Provider Active Start: August 09, 2024 Ximena Sylvester , FAMILY COUNSELOR-C Referring Provider Active St art: August 09, 2024 Dr. Philip Drummond DO Attending Provider Active Start: August 09, 2024 Dr. Philip Drummond DO Other Provider Active St art: August 09, 2024 Team Status: Inactive Member Role Status Dates Ximena Sylvester , FAMILY COUNSELOR-C Primary Care Provider Active Start: September 02, 2024 End: September 02, 2024 Ximena Sylvester , FAMILY COUNSELOR-C Referring Provider Active St art: September 02, 2024 End: September 02, 2024 Tere Mckenzie FAMILY COUNSELOR-C Attending Provider Active Start: September 02, 2024 End: September 02, 2024 Team Status: Inactive Member Role Status Dates Ximenaabbey Sylvester , FAMILY COUNSELOR-C Primary Care Provider Active Start: September 03, 2024 End: September 03, 2024 Tere Mckenzie FAMILY COUNSELOR-C Attending Provider Active Start: September 03, 2024 End: September 03, 2024 Team Status: Active Member Role/Relationship Status Dates Ximena Sylvester , FAMILY COUNSELOR-C Primary Care Provider Active Team Status: Inactive Member Role/Relationship Status Dates Ximena Sylvester , FAMILY COUNSELOR-C Primary Care Provider Active Start: September 02, 2024 End: September 02, 2024 Ximena Sylvester FAMILY COUNSELOR-C Referring Provider Active St art: September 02, 2024 End: September 02, 2024 Tere Mckenzie FAMILY COUNSELOR-C Attending Provider Active Start: September 02, 2024 End: September 02, 2024 Team Status: Inactive Member Role/Relationship Status Dates Ximena Sylvester FAMILY COUNSELOR-C Primary Care Provider Active Start: September 03, 2024 End: September 03, 2024 Tere Mckenzie FAMILY COUNSELOR-C Attending Provider Active Start: September 03, 2024 End: September 03, 2024 Team Status: Inactive Member Role/Relationship Status Dates Ximena Sylvester , FAMILY COUNSELOR-C Primary Care Provider Active Start: October 03, 2024 End: October 03, 2024 Ximena Sylvester FAMILY COUNSELOR-C Referring Provider Active St art: October 03, [...] 10, 2024 End: December 10, 2024 Ximena Sylvester , FAMILY COUNSELOR-C Primary Care Provider Active Start: December 10, 2024 End: December 10, 2024 Team Status: Inactive Member Role/Relationship Status Dates Ximena Sylvester FAMILY COUNSELOR-C Primary Care Provider Active Start: December 03, 2024 Dr. Geri Mckeon MD Attending Provider Active Start: December 03, 2024 Team Status: Inactive Member Role/Relationship Status Dates Dr. Williams Starr DO Referring Provider Active Start: December 10, 2024 End: December 10, 2024 Dr. Abdelrahman Saldana MD Attending Provider Active S tart: December 10, 2024 End: December 10, 2024 Ximena Omero , FAMILY COUNSELOR-C Primary Care Provider Active Start: December 10, 2024 End: December 10, 2024 Team Status: Active Member Role/Relationship Status Dates Ximena Omero , FAMILY COUNSELOR-C Primary Care Provider Active Start: December 31, 2024 Ximena Omero , FAMILY COUNSELOR-C Attending Provider Active St art: December 31, 2024 Ximena Omero , FAMILY COUNSELOR-C Referring Provider Active St art: December 31, 2024 Team Status: Inactive Member Role/Relationship Status Dates Ximena Omero , FAMILY COUNSELOR-C Primary Care Provider Active Start: December 31, 2024 End: December 31, 2024 Dr. Marleny Davis DO Emergency Provider Active Start: December 31, 2024 End: December 31, 2024 Team Status: Inactive Member Role/Relationship Status Dates Ximena Omero , FAMILY COUNSELOR-C Primary Care Provider Active Start: October 03, 2024 End: October 03, 2024 Ximena Omero , FAMILY COUNSELOR-C Referring Provider Active St art: October 03, 2024 End: October 03, 2024 THERESA Camp Attending Provider Active Start: October 03, 2024 End: October 03, 2024 Team Status: Inactive Member Role/Relationship Status Dates Ximena Omero , FAMILY COUNSELOR-C Primary Care Provider Active Start: December 03, 2024 Dr. Geri Mckeon MD Attending Provider Active Start: December 03, 2024 Team Status: Inactive Member Role/Relationship Status Dates Dr. Williams Starr DO Referring Provider Active Start: December 10, 2024 End: December 10, 2024 Dr. Abdelrahman Saldana MD Attending Provider Active S tart: December 10, 2024 End: December 10, 2024 Ximena Omero , FAMILY COUNSELOR-C Primary Care Provider Active Start: December 10, 2024 End: December 10, 2024 Team Status: Inactive Member Role/Relationship Status Dates Ximena Omero , FAMILY COUNSELOR-C Primary Care Provider Active Start: December 31, 2024 End: December 31, 2024 Ximena Omero , FAMILY COUNSELOR-C Attending Provider Active St art: December 31, 2024 End: December 31, 2024 Ximena Oemro , FAMILY COUNSELOR-C Referring Provider Active St art: December 31, 2024 End: December 31, 2024 Team Status: Inactive Member Role/Relationship Status Dates Ximena Omero , FAMILY COUNSELOR-C Primary Care Provider Active Start: December 31, 2024 End: December 31, 2024 Dr. Marleny Davis DO Attending Provider Active Start: December 31, 2024 End: December 31, 2024 Dr. Marleny Davis DO Emergency Provider Active Start: December 31, 2024 End: December 31, 2024 Team Status: Inactive Member Role/Relationship Status Dates Ximena Sylvester FAMILY COUNSELOR-C Primary Care Provider Active Start: January 14, 2025 End: January 14, 2025 Ximena Sylvester FAMILY COUNSELOR-C Referring Provider Active St art: January 14, 2025 End: January 14, 2025 Marely CARDENAS, PA Attending Provider Active Start: January 14, 2025 End: January 14, 2025 Team Status: Inactive Member Role/Relationship Status Dates Ximena Sylvester FAMILY COUNSELOR-C Primary Care Provider Active Start: January 15, 2025 End: January 15, 2025 Ximena Sylvester FAMILY COUNSELOR-C Referring Provider Active St art: January 15, 2025 End: January 15, 2025 THERESA Camp Attending Provider Active Start: January 15, 2025 End: January 15, 2025 Goals (unrecognized section and content) Goals may [...] BE BASED ON THE PRIMARY CLINICAL RECORDS. [facility] [place] [facility]. provides no warranty or guarantee of the accuracy or completeness of information in this document.
--- NOTE | 2025-01-23 23:16 | ED.VIS.DYS ---
HPI History of Present Illness Chief Complaint: Shortness of Breath Narrative Narrative: Patient is a 74-year-old female presenting to the emergency department for 6 days of shortness of breath, cough, chest tightness and sore throat. Patient has an extensive past medical history as below including Davis's esophagus, dysphagia, chronic fatigue, COPD and CAD with coronary bypass surgery. Patient denies any sick contacts. She states that she has been using her breathing treatments at home which has not helped with the shortness of breath. States she has chest pain/tightness across the front of her chest that does not change with activity. She reports a sharp pain underneath her right medial breast. She endorses abdominal bloating which is chronic for 14 years she states. Endorses nausea with no vomiting. Denies any lower extremity edema. [facility] Medical History Cardiac murmur Current use of detention anticoagulation Arterial vascular disease Bilateral buttock pain Lumbar back pain Wears glasses Cancer Insulin dependent diabetes mellitus Arthritis Walker as ambulation aid Ambulates with cane Bladder disease High cholesterol Back pain Seizures History of hiatal hernia History of diverticulitis Gastric reflux History of heart attack History of irregular heartbeat Cardiology follow-up encounter History of echocardiogram History of stress test Dehydration Fecal impaction of colon Abdominal pain Nausea and vomiting Coronary atherosclerosis Ischemic stroke GERD (gastroesophageal reflux disease) Pancreatitis Chronic pain Former smoker Sternum pain History of CVA (cerebrovascular accident) (09/2014) Atherosclerosis of coronary artery of [place] heart without angina pectoris History of non-ST elevation myocardial infarction (NSTEMI) (06/2018) Essential (primary) hypertension Overactive bladder Anxiety Tobacco abuse Diabetes Hyperlipidemia Home Medications ?Medication ?Instructions ?Recorded ?Last Taken ?Type aspirin 81 mg tablet,delayed 81 mg PO DAILY@0800 [facility] 06/14/18 2 Days Ago History release ~02/21/21 insulin glargine 100 unit/mL (3 50 unit subcut QHS 07/15/21 Unknown History mL) subcutaneous pen (Lantus Solostar U-100 Insulin) famotidine 40 mg tablet 40 mg PO DAILY 07/27/22 Unknown History omeprazole 40 mg capsule,delayed 40 mg PO DAILY #90 caps 10/13/22 Unknown Rx release nitroglycerin 0.4 mg sublingual 0.4 mg sublingual Q5-15M PRN chest 04/12/23 Unknown Rx tablet (Nitrostat) pain #25 tabs levocetirizine 5 mg tablet 5 mg PO DAILY 06/16/23 Unknown History calcium 500 mg tablet 500 mg PO BID 10/17/23 Unknown History tiotropium 2.5 mcg-olodaterol 2.5 2 puff inhalation DAILY 10/25/23 Unknown History mcg/actuation mist for inhalation (Stiolto Respimat) ferrous fumarate 325 mg (106 mg 325 mg PO QDAY 03/06/24 Unknown History iron) tablet cholecalciferol (vitamin D3) 50 50 mcg PO QDAY 04/18/24 Unknown History mcg (2,000 unit) capsule amlodipine 10 mg tablet See Rx Instructions .Route 07/19/24 Unknown Rx .COMPLEX #28 tabs lisinopril 5 mg tablet 5 mg PO DAILY #30 tabs 08/08/24 Unknown Rx evolocumab 140 mg/mL subcutaneous 140 mg subcut Q2W #1 mL 12/10/24 Unknown Rx syringe (Repatha Syringe) citalopram 20 mg tablet 20 mg PO QDAY 01/14/25 Unknown History insulin lispro 100 unit/mL 17 unit subcut QAC 01/14/25 Unknown History subcutaneous pen (Humalog KwikPen (U-100) Insulin) linaclotide 290 mcg capsule 290 mcg PO QAM 01/14/25 Unknown History (Linzess) Allergy/AdvReac Type Severity Reaction Status Date / Time codeine Allergy Other Verified 01/23/25 22:38 Penicillins Allergy Swelling Verified 01/23/25 22:38 Sulfa (Sulfonamide Allergy Swelling Verified 01/23/25 22:38 Antibiotics) diphenhydramine (From AdvReac Intermediate Other Verified 01/23/25 22:38 Benadryl) acetaminophen (From Tylenol) AdvReac NEEDS Verified 01/23/25 22:38 FOLLOW-UP metoclopramide (From Reglan) AdvReac Other Verified 01/23/25 22:38 Family History no significant family his Surgical History Hx of endoscopy Hx of colonoscopy History of sinus surgery History of left heart catheterization (05/28/18) H/O coronary artery bypass surgery (05/30/18) Social History household members: none Smoking Status: Former smoker alcohol intake: current alcohol intake frequency: holidays/special occasions only substance use type: does not use ROS ROS ED ROS Narrative See HPI EXAM Physical Exam Narrative Exam Narrative: Vital signs: Reviewed General: Alert and oriented x 3. No acute distress. Chronically ill-appearing HEENT: Head is normocephalic and atraumatic, sinuses nontender, pupils equal round and reactive. Nares are patent. Oropharynx and throat exams normal. Neck: Supple without lymphadenopathy nontender Cardiovascular: Regular rate and rhythm, no murmurs. No rubs or gallops. Normal S1 and S2 Respiratory: Clear to auscultation bilaterally. No wheezes, rales, rhonchi Chest: Reproducible pain on palpation of the midsternal chest wall and under the right medial breast. Abdominal: Soft and nontender. Normal bowel sounds. No guarding or rebound. Nonsurgical abdomen Extremities: No tenderness. No bruising. Normal range of motion. Normal sensation. Skin: No rash or redness. Neurological: Cranial nerves II through XII are grossly intact. Normal strength and sensation. Normal cerebellar function The rest of the physical exam is unremarkable Const Vital Signs: 01/23/25 22:37 01/23/25 22:57 01/23/25 23:37 Temperature 98.6 F Temperature Source Temporal Pulse Rate 76 81 Respiratory Rate 18 18 Respiratory Effort Short of Breath Blood Pressure 151/69 H 187/87 H Blood Pressure Mean 96 120 Pulse Ox 98 97 Oxygen Delivery Method Room Air Room Air 01/24/25 00:00 Temperature Temperature Source Pulse Rate 72 Respiratory Rate 19 H Respiratory Effort Blood Pressure 169/81 H Blood Pressure Mean 110 Pulse Ox 97 Oxygen Delivery Method Room Air MDM MDM MDM Narrative Medical decision making narrative: Patient is a 74-year-old female presenting to the emergency department for shortness of breath, chest tightness, nausea and sore throat for the past 6 days. Patient was seen and examined. Vitals are stable. Patient resting in bed comfortably in no acute distress. Differential includes but is not limited to: Viral illness, COPD exacerbation, ACS, costochondritis, pneumonia, less likely PE EKG shows normal sinus rhythm with a sinus arrhythmia. There are no ST elevation or depression. No evidence of ischemia. No wheezing on exam to suggest COPD exacerbation or need for any breathing treatments. Her symptoms sound very viral in nature along with her unremarkable physical exam. She does have a history of blood clots and is not on any current anticoagulation. With the pain underneath her right breast and shortness of breath will obtain a D-dimer. Very low suspicion for blood clot given it is not pleuritic in nature, she is not hypoxic and she is not tachycardic. CBC with no leukocytosis and normal hemoglobin. CMP without sign of abnormalities. Glucose of 203. Viral swab negative. Troponin within normal limits at 11. Chest x-ray reviewed. No opacity, pneumothorax, edema noted. Radiology read with no acute radiographic abnormalities. Elevated d-dimer, CTA chest ordered. Patient signed out to oncoming physician, Dr. Lopez, pending second troponin and CTA chest. If negative CT, anticipate discharge. History & Record Review Discussion w/independent historian: Patient Lab Data Attestation: I reviewed the patient's lab results. Labs: Laboratory Results - last 24 hr 01/23/25 23:21 WBC 7.8 RBC 4.42 Hgb 12.6 Hct 38.8 MCV 87.8 MCH 28.5 MCHC 32.5 RDW Std Deviation 42.8 RDW Coeff of Tushar 13.3 Plt Count 271 MPV 11.6 Immature Gran % (Auto) 0.300 Neut % (Auto) 56.7 Lymph % (Auto) 28.8 [place] % (Auto) 9.8 Eos % (Auto) 3.4 Baso % (Auto) 1.0 Absolute Neuts (auto) 4.4 Absolute Lymphs (auto) 2.26 Nucleated RBC % 0 D-Dimer Quant (PE/DVT) 2.49 H* Sodium 138 Potassium 4.2 Chloride 101 Carbon Dioxide 23.2 Anion Gap 14 BUN 17 Creatinine 0.92 Estim Creat Clear Calc 49.90 L Est GFR (MDRD) Non-Af 65 BUN/Creatinine Ratio 18.6 Glucose 203 H Calcium 9.4 Total Bilirubin 0.23 AST 16 ALT 17 Alkaline Phosphatase 85 Troponin T High Sens 11 D Total Protein 7.4 Albumin 4.0 Globulin 3.4 Albumin/Globulin Ratio 1.2 Radiography Chest X-Ray - ED: 2 View, Read by ED Physician, Normal, No Acute Disease and No Infiltrates Diagnostic Testing: Clinical Impression(s) from Imaging Studies Chest X-Ray 01/23/25 23:30 IMPRESSION: Status post median sternotomy. No acute process. Reading [facility] Discharge Plan Triage Chief Complaint: Shortness of Breath ED Provider: Estrella Newsome Dx/Rx/DC Orders Prescriptions: No Action Lantus Solostar U-100 Insulin 100 unit/mL (3 mL) insulin pen 50 unit subcut QHS nitroglycerin [Nitrostat] 0.4 mg tablet, sublingual 0.4 mg sublingual Q5-15M PRN (Reason: chest pain) Qty: 25 3RF Rx Instructions: do not exceed 3 doses per episode calcium 500 mg tablet 500 mg PO BID Repatha Syringe 140 mg/mL syringe 140 mg subcut Q2W Qty: 1 6RF ferrous fumarate 325 mg (106 mg iron) tablet 325 mg PO QDAY cholecalciferol (vitamin D3) 50 mcg (2,000 unit) capsule 50 mcg PO QDAY citalopram 20 mg tablet 20 mg PO QDAY insulin lispro [Humalog KwikPen Insulin] 100 unit/mL insulin pen 17 unit subcut QAC Linzess 290 mcg capsule 290 mcg PO QAM aspirin 81 MG tablet 81 mg PO DAILY@0800 famotidine 40 mg Tablet 40 mg PO DAILY levocetirizine 5 mg tablet 5 mg PO DAILY Stiolto Respimat 2.5-2.5 mcg/actuation mist 2 puff inhalation DAILY omeprazole 40 mg capsule,delayed release(DR/EC) 40 mg PO DAILY Qty: 90 3RF amlodipine 10 mg tablet See Rx Instructions .ROUTE .COMPLEX Qty: 28 11RF Dose Instruction: TAKE 1 TABLET BY MOUTH DAILY Rx Instructions: TAKE 1 TABLET BY MOUTH DAILY lisinopril 5 mg tablet 5 mg PO DAILY Qty: 30 11RF Primary Care Provider: Mariza Jamil Referrals: Mariza Jamil, [employer] [Primary Care Provider] - Print Language: Citizen Of [place]
[2025-01-23 23:29] LABS: Hematocrit 38.8 % (37-47); Hemoglobin 12.6 g/dL (12.0-15.0); Immature Granulocytes Count 0.020 X10^3/uL (0.0-0.0); Mean Corp Hgb Conc 32.5 g/dL (32-36); Mean Corpuscular Volume 87.8 fL (81-99); Mean Platelet Vol. 11.6 fl (6.2-12.0); NRBC Flagged by Analyzer 0 % (0-5); Platelet Count 271 K/mm3 (150-450); RBC Distribution Width CV 13.3 % (11.6-14.6); RBC Distribution Width SD 42.8 fl (35.1-43.9); Red Blood Count 4.42 M/mm3 (4.2-5.4); White Blood Count 7.8 K/mm3 (4.4-11.0)
--- NOTE | 2025-01-23 23:30 | RAD_ITS ---
PROCEDURE: CHEST PA AND LATERAL 01/23/2025 REASON FOR EXAM: CHEST PAIN TECHNIQUE: CHEST PA AND LATERAL COMPARISON: None FINDINGS: The lungs are expanded. There is no demonstrated parenchymal abnormality. There is no demonstrated pleural abnormality. Normal heart and pericardium. Median sternotomy wires are seen in place. Normal mediastinum and jelani. Normal visualized pulmonary arteries. Aorta is calcified. Normal visualized thoracic spine. Normal visualized ribs, clavicles, and shoulders. There is no demonstrated abnormality of the visualized soft tissue structures of the upper abdomen. RAD/Chest PA and Lateral IMPRESSION: Status post median sternotomy. No acute process. Reading [facility]
[2025-01-23 23:37] VITALS: BP 187/87; PULSE 81; RESP 18; O2SAT 97
[2025-01-24] VITALS: BP 169/81; PULSE 72; RESP 19; O2SAT 97
[2025-01-24 00:07] LABS: D-Dimer Quantitative (DVT/PE) 2.49 FEU/ug/m (0.27-0.49)
--- NOTE | 2025-01-24 00:07 | ED.RN ---
Critical D Dimer received from lab of 2.49. Dr. Newsome notified.
--- NOTE | 2025-01-24 00:15 | CT_ITS ---
PROCEDURE: CTA CHEST W/WO CONTRAST 01/24/2025 REASON FOR EXAM: SOB, CHEST PAIN, ELEVATED D DIMER TECHNIQUE: CTA CHEST W/WO CONTRAST Multiplanar Sagittal and Coronal images were obtained. CONTRAST: [id number] VOLUME: 100 mL One or more dose reduction techniques were used (e.g., Automated exposure control, adjustment of the mA and/or kV according to patient size, use of iterative reconstruction technique). RADIATION DOSE SUMMARY: CTDlvol: 13.95 mGy DLP: 453 mGycm COMPARISON: Chest radiograph on 01/23/2025. CT scan on 02/13/2021. FINDINGS: Minimal left upper lobe segmental branch pulmonary embolus. No evidence of large central or massive pulmonary embolus. No evidence of cardiac strain. Mild cardiomegaly. Prior CABG. Mild diffuse spondylosis. Normal enhancement of the main pulmonary artery and right and left pulmonary arteries. Normal thoracic aorta and visualized great vessels. There is no demonstrated aortic dissection. Normal heart and pericardium. Normal mediastinum. Normal hilar regions. Normal visualized trachea and bronchi. The lungs are well expanded. Normal pulmonary parenchyma. Normal pleura. Normal visualized upper abdomen. CT/CTA Chest W/WO Contrast IMPRESSION: Minimal left upper lobe segmental branch pulmonary embolus. No evidence of large central or massive pulmonary embolus. No evidence of cardiac strain. Mild cardiomegaly. Prior CABG. Mild diffuse spondylosis. I discussed the findings with Dr. Escalera in the emergency department at 2 a.m. EST. Reading Location: [place] [id number]
[2025-01-24 00:16] LABS: AST(SGOT) 16 U/L (<=31); Alanine Aminotransfer ALT/SGPT 17 U/L (<=34); Albumin, Serum 4.0 g/dL (3.4-4.8); Alkaline Phosphatase 85 U/L (35-104); Anion Gap 14 (5-15); BUN 17 mg/dL (4-19); BUN/Creat Ratio 18.6 RATIO (10-20); Calcium,Total 9.4 mg/dL (7.6-11.0); Carbon Dioxide 23.2 mmol/L (21.0-32.0); Chloride 101 mmol/L (98-108); Estimated Creatinine Clearance 49.90 ml/min (50-250); Globulin 3.4 g/dL (2.2-4.2); Glucose 203 mg/dL (70-99); Potassium 4.2 mmol/L (3.3-5.1); Troponin T High Sensitivity 11 ng/L (<=14)
[2025-01-24] MEDS: Lidocaine 2% Viscous15 ML UDC 15 ML PO (00:30)
[2025-01-24 01:00] VITALS: BP 185/99; PULSE 71; RESP 13; O2SAT 97
[2025-01-24 01:44] LABS: Troponin T High Sens 2 HR 8 ng/L (<=14)
[2025-01-24 02:00] VITALS: BP 179/92; PULSE 71; RESP 16; O2SAT 96
[2025-01-24] MEDS: APIXABAN 5 MG TABLET 10 MG PO (02:55)
[2025-01-24 02:58] VITALS: BP 179/92; PULSE 71; RESP 16; TEMP 37; O2SAT 96
== END 2025-01-24 02:59 | disposition home or self-care (01) ==
PROVIDERS: Emergency Provider Student in an Organized Health Care Education/Training Program; PCP Nurse Practitioner Family; Visit Provider Student in an Organized Health Care Education/Training Program
DX: I26.99 Other pulmonary embolism without acute cor pulmonale (principal); J44.9 Chronic obstructive pulmonary disease, unspecified; E11.9 Type 2 diabetes mellitus without complications; R06.02 Shortness of breath; I25.10 Atherosclerotic heart disease of native coronary artery without angina pectoris; I10 Essential (primary) hypertension; Z87.891 Personal history of nicotine dependence; E78.00 Pure hypercholesterolemia, unspecified; Z95.1 Presence of aortocoronary bypass graft; K21.9 Gastro-esophageal reflux disease without esophagitis
CPT/HCPCS: 71046; 71275; 80053; 84484; 85025; 85379; 87631; 93005; 96374; 99283; Q9967; A4216; J2405

== ENCOUNTER → 2025-01-27 | Outpatient (CLI) | payer MEDICARE, SELFPAY ==
--- NOTE | 2025-01-27 09:55 | US_ITS ---
PROCEDURE: ABDOMEN LIMITED 01/27/2025 REASON FOR EXAM: ABD PAIN COMPARISON: Prior hepatobiliary scan dated December 12, 2023. FINDINGS: Liver: Diffusely echogenic suggesting fatty infiltration. Gallbladder: Multiple gallstones. Positive sonographic Gannon's sign. The gallbladder wall is not thickened and measures 2.3 mm. Common bile duct: Normal measuring 3.8 mm . Pancreas: Visualized portions are sonographically unremarkable. Other: The right kidney measures 10.7 cm 4.5 cm 4.4 cm. Minimal cortical thinning measuring 9 mm. 2 renal cysts are seen. The larger measures 2.3 cm x 1.6 cm 1.5 cm. US/Abdomen Limited IMPRESSION: Multiple gallstones. Positive sonographic Gannon's sign. Fatty infiltration of the liver. 2 right renal cysts. Reading Location: [id number]
== END | disposition home or self-care (01) ==
PROVIDERS: PCP Nurse Practitioner Family; Referring Provider Emergency Medicine; Visit Provider Emergency Medicine
DX: R10.9 Unspecified abdominal pain (principal)
CPT/HCPCS: 76705

== ENCOUNTER → 2025-02-12 | Outpatient (CLI) | payer MEDICARE, SELFPAY ==
[2025-02-12 17:51] LABS: Hematocrit 40.9 % (37-47); Hemoglobin 13.0 g/dL (12.0-15.0); Immature Granulocytes Count 0.020 X10^3/uL (0.0-0.0); Mean Corp Hgb Conc 31.8 g/dL (32-36); Mean Corpuscular Volume 89.3 fL (81-99); Mean Platelet Vol. 12.3 fl (6.2-12.0); NRBC Flagged by Analyzer 0 % (0-5); Platelet Count 274 K/mm3 (150-450); RBC Distribution Width CV 13.5 % (11.6-14.6); RBC Distribution Width SD 44.0 fl (35.1-43.9); Red Blood Count 4.58 M/mm3 (4.2-5.4); White Blood Count 6.8 K/mm3 (4.4-11.0)
[2025-02-12 19:50] LABS: AST(SGOT) 13 U/L (<=31); Alanine Aminotransfer ALT/SGPT 14 U/L (<=34); Albumin, Serum 4.3 g/dL (3.4-4.8); Alkaline Phosphatase 78 U/L (35-104); Anion Gap 13 (5-15); BUN 19 mg/dL (4-19); BUN/Creat Ratio 20.8 RATIO (10-20); Calcium,Total 9.7 mg/dL (7.6-11.0); Carbon Dioxide 23.8 mmol/L (21.0-32.0); Chloride 101 mmol/L (98-108); Ferritin 110 ng/mL (22-378); Globulin 3.3 g/dL (2.2-4.2); Glucose 171 mg/dL (70-99); Iron 56 ug/dL (50-170); Iron Binding Capacity,Total 271 ug/dL (250-450); Iron Binding Capacity,Unsat 215 ug/dL (228-428); Potassium 4.7 mmol/L (3.3-5.1); Vitamin B12 863 pg/mL (180-914); Vitamin D,25 Hydroxy 45.1 ng/mL (30-100)
== END | disposition home or self-care (01) ==
LOC: BFHLAB 14:18
PROVIDERS: PCP Nurse Practitioner Family; Visit Provider Nurse Practitioner Family
DX: E55.9 Vitamin D deficiency, unspecified (principal); R53.83 Other fatigue; E53.8 Deficiency of other specified B group vitamins; E03.9 Hypothyroidism, unspecified; D50.9 Iron deficiency anemia, unspecified; I10 Essential (primary) hypertension
CPT/HCPCS: 36415; 80053; 82306; 82607; 82728; 83540; 83550; 84439; 84443; 85025

== ENCOUNTER 2025-06-02 13:46 | Emergency (ER) | payer MEDICARE, SELFPAY ==
[2025-06-02 13:47] VITALS: BP 156/58; PULSE 60; RESP 18; TEMP 35.9; O2SAT 98
--- NOTE | 2025-06-02 14:24 | RAD_ITS ---
PROCEDURE: HAND MIN 3 VIEWS 06/02/2025 REASON FOR EXAM: PAIN TECHNIQUE: Procedure Code: REINALDO Modality: DX Procedure: HAND MIN 3 VIEWS Laterality: Left COMPARISON: None FINDINGS: Bones: No fracture Joints: Arthritis first interphalangeal joint. Soft tissues: Soft tissues are unremarkable. Other: No foreign body RAD/Hand Min 3 Views IMPRESSION: No acute abnormality. Mild osteoarthritis Reading Location: [id number]
--- NOTE | 2025-06-02 14:25 | RAD_ITS ---
PROCEDURE: FOREARM 2 VIEWS 06/02/2025 REASON FOR EXAM: PAIN TECHNIQUE: Procedure Code: RADFA Modality: DX Procedure: FOREARM 2 VIEWS Laterality: Left COMPARISON: None FINDINGS: Bones: No fracture Joints: Normal alignment at the wrist and elbow. Soft tissues: Soft tissues are unremarkable. Other: No foreign body RAD/Forearm 2 Views IMPRESSION: No acute abnormality Reading Location: [id number]
[2025-06-02 15:46] VITALS: BP 118/58; PULSE 75; O2SAT 97
--- NOTE | 2025-06-02 16:09 | EDS_ITS ---
HPI History of Present Illness Chief Complaint: Upper Extremity Injury 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 Arterial vascular disease Bilateral buttock pain Lumbar back pain Wears glasses Cancer Insulin dependent diabetes mellitus Arthritis Walker as ambulation aid Ambulates with cane Bladder disease High cholesterol Back pain Seizures History of hiatal hernia History of diverticulitis Gastric reflux History of heart attack History of irregular heartbeat Cardiology follow-up encounter History of echocardiogram History of stress test Dehydration Fecal impaction of colon Abdominal pain Nausea and vomiting Coronary atherosclerosis Ischemic stroke GERD (gastroesophageal reflux disease) Pancreatitis Chronic pain Former smoker Sternum pain History of CVA (cerebrovascular accident) (09/2014) Atherosclerosis of coronary artery of [place] heart without angina pectoris History of non-ST elevation myocardial infarction (NSTEMI) (06/2018) Essential (primary) hypertension Overactive bladder Anxiety Tobacco abuse Diabetes Hyperlipidemia Home Medications Medication Instructions Recorded Last Taken Type aspirin 81 mg tablet,delayed 81 mg PO DAILY@0800 [facility] 06/14/18 2 Days Ago History release ~02/21/21 insulin glargine 100 unit/mL (3 50 unit subcut QHS 03/26 Unknown History mL) subcutaneous pen (Lantus Solostar U-100 Insulin) famotidine 40 mg tablet 40 mg PO DAILY 07/27/22 Unkn own History omeprazole 40 mg capsule,delayed 40 mg PO DAILY #90 ca ps 10/13/22 Unknown Rx release nitroglycerin 0.4 mg sublingual 0.4 mg sublingual Q5-1 5M PRN chest 04/12/23 Unknown Rx tablet (Nitrostat) pain #25 tabs levocetirizine 5 mg tablet 5 mg PO DAILY 06/16/23 Unkn own History calcium 500 mg tablet 500 mg PO BID 10/17/23 Unkno wn History tiotropium 2.5 mcg-olodaterol 2.5 2 puff inhalation DA ROMANA 10/25/23 Unknown History mcg/actuation mist for inhalation (Stiolto Respimat) ferrous fumarate 325 mg (106 mg 325 mg PO QDAY 4 Unknown History iron) tablet cholecalciferol (vitamin D3) 50 50 mcg PO QDAY 4 Unknown History mcg (2,000 unit) capsule amlodipine 10 mg tablet See Rx Instructions .Route 0 07/19/24 Unknown Rx .COMPLEX #28 tabs lisinopril 5 mg tablet 5 mg PO DAILY #30 tabs 08/08 Unknown Rx citalopram 20 mg tablet 20 mg PO QDAY 01/14/25 Unkno wn History insulin lispro 100 unit/mL 17 unit subcut QAC 01/14/25 Unknown History subcutaneous pen (Humalog KwikPen (U-100) Insulin) linaclotide 290 mcg capsule 290 mcg PO QAM 01/14/25 Un known History (Linzess) apixaban 5 mg (74 tabs) tablets in See Rx Instructions PO .COMPLEX 01/28/25 Unknown History a dose pack (EliWelVUis DVT-PE Treat 30D Start) evolocumab 140 mg/mL subcutaneous 140 mg subcut Q2W #2 mL 02/05/25 Unknown Rx syringe (Repatha Syringe) Allergy/AdvReac Type Severity Reaction Status Date / Time codeine Allergy Other Verified 06/02/25 13:47 Penicillins Allergy Swelling Verified 06/02/25 13:47 Sulfa (Sulfonamide Allergy Swelling Verified 06/02/25 13:47 Antibiotics) diphenhydramine (From AdvReac Intermediate Other Verified 06/02/25 13:47 Benadryl) acetaminophen (From Tylenol) AdvReac NEEDS Verified 06/02/25 13:47 FOLLOW-UP metoclopramide (From Reglan) AdvReac Other Verified 06/02/25 13:47 Family History no significant family his Surgical History (Reviewed 01/28/25 @ 15:23 by May Jacobs TERMINAL SUPERINTENDENT, TERMINAL SUPERINTENDENT-C) Hx of endoscopy Hx of colonoscopy History of sinus surgery History of left heart catheterization (05/28/18) H/O coronary artery bypass surgery (05/30/18) Social History household members: none Smoking Status: Former smoker alcohol intake: current alcohol intake frequency: holidays/special occasions only substance use type: does not use EXAM Physical Exam Const Vital Signs: 06/02/25 13:47 Temperature 96.6 F L Temperature Source Temporal Pulse Rate 60 Respiratory Rate 18 Blood Pressure 156/58 H Blood Pressure Mean 90 Pulse Ox 98 Oxygen Delivery Method Room Air MDM MDM MDM Narrative Medical decision making narrative: HISTORY OF PRESENT ILLNESS: Chief complaint: Left arm pain 74-year-old female presents with left arm. Patient states she is actually here because she had chest discomfort and shortness of breath at her insurance healthcare representative visit just prior to arrival. She notes pain radiated into her left arm. She notes compliance with her current blood thinner (Eliquis). No she was recently diagnosed with a PE. She notes no missed doses. She denies leg swelling. Denies cough fever or chills. Patient denies active cancer, being bedridden for greater than 3 days, denies unilateral leg swelling, denies any varicose veins, denies any calf tenderness, denies tenderness along deep venous system. Denies major surgery within 12 weeks, recent paralysis. REVIEW OF SYSTEMS: Pertinent positives: Arm pain,, chest pain, shortness of breath Pertinent negatives: Cough fever chills PHYSICAL EXAM: Nursing triage notes reviewed, Vital signs reviewed Constitutional: please see mdm HENT: MMM Eyes: Pupils equal round and reactive to light, Extraocular muscles intact Neck: No stridor, no JVD, full neck ROM Lungs: Clear to auscultation, No wheezing or rales. No increased work of breathing, no conversational dyspnea, no accessory muscle use, no nasal flaring. No respiratory distress noted Heart: Regular rate and rhythm, No murmurs, No rubs and No gallops, 2+ distal pulses (radial, femoral, posterior tibial) in all extremities Abdomen: Soft, there is no tenderness, rigidity, rebound or guarding, no obvious peritoneal signs, no palpable pulsatile abdominal masses, no auscultated abdominal bruit : No CVAT Extremities: No edema Neuro: Intact 5/5 strength with ok sign (median), intact finger abduction (ulnar ) intact wrist extension (radial n). Intact sensation in the radial, ulnar, and median nerve distributions. Skin: No rash or lesions noted MEDICAL DECISION MAKING: Chief Complaint: please see HPI External records reviewed: Reviewed prior imaging [facility] Narrative: Patient was initially hemodynamically stable, afebrile and nontoxic-appearing. Exam without focal cardiopulmonary abnormalities. No stigmata of VTE on initial exam. Left upper extremity neurovascularly intact. No obvious signs of trauma or deformities. I considered the following differential diagnosis: Arm contusion, musculosk eletal strain, bony injury, DVT, anemia, arrhythmia, electro disturbance, CHF, COVID/RSV/flu, PE X-rays were obtained in triage to further determine if the patient was suffering from a life-threatening etiology. Given the patient's complaint of chest pressure and shortness of breath I obtained a broad workup which included a CTA, basic labs, EKG and cardiopulmonary monitoring. ALL IMAGES (IF OBTAINED) HAVE BEEN PERSONALLY REVIEWED AND INTERPRETED BY MYSELF. X-rays were read reviewed personally myself. X-ray of the hand and forearm did not show signs of obvious fracture or dislocation EKG showed normal sinus rhythm rate of 73, normal axis, normal intervals, no STEMI or arrhythmia noted CT of the chest showed no evidence of PE Duplex ultrasound showed no evidence of DVT High-sensitivity troponin is negative, no evidence of myocardial ischemia CBC without leukocytosis, severe anemia, no thrombocytopenia. BMP without evidence of significant electrolyte abnormalities, no anion gap, no acute kidney injury. LFTs show no evidence of hepatobiliary pathology. BNP within normal limits suggesting heart The synthesis of the patient's history, physical exam, labs images suggest no acute life or impairing etiology specifically no sign of VTE. No sign of bony injury. The cause of her symptoms remain unclear at this time but based on ED workup, vital signs, physical exam I do not suspect a life-threatening. Will give PCP follow-up The patient and/or family, caregivers express understanding. The patient and/or family, caregivers agrees with the plan. Shared decision making: I will have a discussion with the patient and or visitors regarding risk/benefits of further testing or admission. They will be made aware of of the risk/benefits inherent in this decision they will be given the opportunity to voice understanding. Total critical care time today provided was at least 0 [] minutes. This excludes separately billable procedures. Critical care time (if documented) is secondary to the patient having high probability of clinically significant/life threatening deterioration in the patient's condition which required my urgent intervention. Impression: 1. Acute arm pain 2. Chest pain 3. Dyspnea 4. History of pulmonary embolus Dispo: Discharge home This note was generated with [employer] dictation software. It may contain incorrect words, spelling, and punctuation that were not noted in review of the chart prior to signing. Radiography Diagnostic Testing: Clinical Impression(s) from Imaging Studies Hand X-Ray 06/02/25 14:24 IMPRESSION: No acute abnormality. Mild osteoarthritis Reading Location: [facility] Forearm X-Ray 06/02/25 14:25 IMPRESSION: No acute abnormality Reading Location: [facility] Discharge Plan Triage Chief Complaint: Upper Extremity Injury ED Provider: Jacky Sampson Dx/Rx/DC Orders Prescriptions: No Action Lantus Solostar U-100 Insulin 100 unit/mL (3 mL) insulin pen 50 unit subcut QHS nitroglycerin [Nitrostat] 0.4 mg tablet, sublingual 0.4 mg sublingual Q5-15M PRN (Reason: chest pain) Qty: 25 3RF Rx Instructions: do not exceed 3 doses per episode calcium 500 mg tablet 500 mg PO BID ferrous fumarate 325 mg (106 mg iron) tablet 325 mg PO QDAY cholecalciferol (vitamin D3) 50 mcg (2,000 unit) capsule 50 mcg PO QDAY citalopram 20 mg tablet 20 mg PO QDAY insulin lispro [Humalog KwikPen Insulin] 100 unit/mL insulin pen 17 unit subcut QAC Linzess 290 mcg capsule 290 mcg PO QAM Eliquis DVT-PE Treat 30D Start 5 mg (74 tabs) tablets,dose pack See Rx Instructions .ROUTE .COMPLEX Rx Instructions: on hold until after gallbladder surgery aspirin 81 MG tablet 81 mg PO DAILY@0800 famotidine 40 mg Tablet 40 mg PO DAILY levocetirizine 5 mg tablet 5 mg PO DAILY Stiolto Respimat 2.5-2.5 mcg/actuation mist 2 puff inhalation DAILY omeprazole 40 mg capsule,delayed release(DR/EC) 40 mg PO DAILY Qty: 90 3RF amlodipine 10 mg tablet See Rx Instructions .ROUTE .COMPLEX Qty: 28 11RF Dose Instruction: TAKE 1 TABLET BY MOUTH DAILY Rx Instructions: TAKE 1 TABLET BY MOUTH DAILY lisinopril 5 mg tablet 5 mg PO DAILY Qty: 30 11RF Repatha Syringe 140 mg/mL syringe 140 mg subcut Q2W Qty: 2 6RF Primary Care Provider: Mariza Jamil Referrals: Mariza Jamil, TERMINAL SUPERINTENDENT-C [Primary Care Provider, Family Practice] Print Language: Hebrew
--- NOTE | 2025-06-02 16:21 | CT_ITS ---
PROCEDURE: CTA CHEST W/WO CONTRAST 06/02/2025 REASON FOR EXAM: CP, SOB HX OF PE TECHNIQUE: Procedure Code: [id number] Modality: CT Procedure: CTA CHEST W/WO CONTRAST Multiplanar Sagittal and Coronal images were obtained. CONTRAST: 100 mL of Isovue 370 One or more dose reduction techniques were used (e.g., Automated exposure control, adjustment of the mA and/or kV according to patient size, use of iterative reconstruction technique). RADIATION DOSE SUMMARY: DLP: 466 mGycm COMPARISON: CTA chest from 01/24/2025 FINDINGS: PULMONARY ARTERIES: No evidence of pulmonary embolism. LUNGS AND PLEURA: No consolidations. No definite pulmonary edema. No mass or nodule. No pleural effusion. No pneumothorax. MEDIASTINUM: No lymphadenopathy or mass. Minimal coronary atherosclerosis. Mild cardiomegaly. Prior CABG. The aorta shows no acute findings. Mild atherosclerosis of the thoracic aorta. The pulmonary trunk, and branches of the vessels in the mediastinum are within normal limits. SUPRACLAVICULAR AND AXILLARY: No abnormalities seen in these regions. No mass or significant lymphadenopathy. UPPER ABDOMEN: Scattered small cholelithiasis. Small hiatal hernia. BONES AND SOFT TISSUES: The ribs are unremarkable. Median sternotomy wires. The visualized spine shows no significant acute findings. No focal bony mass lesions noted. The subcutaneous soft tissues are unremarkable. CT/CTA Chest W/WO Contrast IMPRESSION: No acute pulmonary emboli. No focal consolidations. Reading Location: [facility]
--- NOTE | 2025-06-02 16:22 | EKG12_ITS ---
Test Reason : GENERAL Blood Pressure : */* mmHG Vent. Rate : 73 BPM Atrial Rate : 73 BPM P-R Int : 128 ms QRS Dur : 82 ms QT Int : 402 ms P-R-T Axes : 75 62 67 degrees QTcB Int : 442 ms Normal sinus rhythm with sinus arrhythmia Normal ECG Confirmed by Chris Truong ([id number]), business editor [place] KIM ([id number]) on 06/06/2025 6:42:49 AM Referred By: Confirmed By: Chris Truong
--- NOTE | 2025-06-02 16:22 | VDUE_ITS ---
Reason For Study Reason For Study: Pain LUE Right Proximal Left Proximal Right subclavian vein is spontaneous, widely patent, Left jugular vein is spontaneous, widely patent, phasic, with no intraluminal echogenicity noted. phasic, with no intraluminal echogenicity noted. Left subclavian vein is spontaneous, widely patent, phasic, with no intraluminal echogenicity noted. Left Arm Left axillary vein is spontaneous, patent, phasic, competent, compressible and demonstrates augmentation. Left brachial vein is compressible. Left cephalic vein is compressible. Left basilic vein is compressible. Left Lower Arm Left radial vein is compressible. Left ulnar vein is compressible. VL/Venous Duplex US, Unilateral Interpretation Summary Deep veins of the left upper extremity are patent and compressible segmentally. There is no evidence of deep vein thrombosis. Superficial veins of the left upper extremity are patent and compressible segme ntally. There is no evidence of superficial vein thrombosis. Ordering Physician: Jacky Sampson Referring Physician: Mariza Jamil Performed By: Mariza Bergeron, RDMINGO, RVT ???
[2025-06-02 16:55] LABS: Hematocrit 39.9 % (37-47); Hemoglobin 13.1 g/dL (12.0-15.0); Immature Granulocytes Count 0.010 X10^3/uL (0.0-0.0); Mean Corp Hgb Conc 32.8 g/dL (32-36); Mean Corpuscular Volume 86.4 fL (81-99); Mean Platelet Vol. 11.8 fl (6.2-12.0); NRBC Flagged by Analyzer 0 % (0-5); Platelet Count 233 K/mm3 (150-450); RBC Distribution Width CV 13.4 % (11.6-14.6); RBC Distribution Width SD 43.1 fl (35.1-43.9); Red Blood Count 4.62 M/mm3 (4.2-5.4); White Blood Count 6.9 K/mm3 (4.4-11.0)
[2025-06-02 17:00] VITALS: BP 118/58; PULSE 61; O2SAT 96
[2025-06-02 17:15] LABS: AST(SGOT) 13 U/L (<=31); Alanine Aminotransfer ALT/SGPT 14 U/L (<=34); Albumin, Serum 4.1 g/dL (3.4-4.8); Alkaline Phosphatase 87 U/L (35-104); Anion Gap 10 (7-18); BUN 25 mg/dL (4-19); BUN/Creat Ratio 31.7 RATIO (10-20); Calcium,Total 9.5 mg/dL (7.6-11.0); Carbon Dioxide 25.6 mmol/L (20.0-29.0); Chloride 106 mmol/L (96-106); Globulin 3.4 g/dL (2.2-4.2); Glucose 99 mg/dL (70-99); Potassium 3.9 mmol/L (3.5-5.1); Pro- Brain NATRIURETIC PEPTIDE 116 pg/mL (<=1800)
[2025-06-02 17:40] LABS: Troponin T High Sensitivity 10 ng/L (<=14)
[2025-06-02 19:00] VITALS: BP 143/68; PULSE 70; RESP 15; O2SAT 97
[2025-06-02 19:03] LABS: Troponin T High Sens 2 HR 11 ng/L (<=14)
[2025-06-02 19:14] VITALS: BP 143/68; PULSE 70; RESP 15; TEMP 36.6; O2SAT 97
== END 2025-06-02 20:01 | disposition home or self-care (01) ==
LOC: ED 16:13
PROVIDERS: Emergency Provider Emergency Medicine; PCP Nurse Practitioner Family; Visit Provider Emergency Medicine
DX: M79.602 Pain in left arm (principal); Z79.4 Long term (current) use of insulin; E11.9 Type 2 diabetes mellitus without complications; R07.9 Chest pain, unspecified; Z87.891 Personal history of nicotine dependence; I10 Essential (primary) hypertension; E78.00 Pure hypercholesterolemia, unspecified; Z86.711 Personal history of pulmonary embolism; I25.10 Atherosclerotic heart disease of native coronary artery without angina pectoris; Z95.1 Presence of aortocoronary bypass graft; Z79.899 Other long term (current) drug therapy; I25.2 Old myocardial infarction; Z86.73 Personal history of transient ischemic attack (TIA), and cerebral infarction without residual deficits; R06.02 Shortness of breath
CPT/HCPCS: 71275; 73090; 73130; 80053; 82962; 83880; 84484; 85025; 87631; 93005; 93971; 99284; Q9967; A4216